=== PATIENT | female | born 1965 | race Caucasian/White ===

== ENCOUNTER → 2019-09-13 14:35 | Outpatient (CLI) | payer OTHER, MEDICAID, SELFPAY ==
--- NOTE | ~2019-09-13 | MMUS_ITS ---
EXAMINATION: MM diagnostic mammo BI, US breast BI limited HISTORY: Bilateral breast asymmetries on screening mammogram TECHNIQUE: Additional 3-D tomosynthesis images of the breasts were performed and synthetic 2-D images were generated. CAD analysis was submitted and interpreted. High resolution limited bilateral breast ultrasound was performed. COMPARISON: 05/30/2018, 08/18/2013, 08/11/2013 FINDINGS: MAMMOGRAPHIC FINDINGS: Right breast: Focal asymmetry in the middle third of the upper outer quadrant of the right breast has an appearance similar to prior examinations with spot compression. There is been no suspicious inter jeremiah change. Left breast: There is an approximately 2.4 cm oval, obscured, equal density mass in the middle/spot checker ior third of the upper outer quadrant of the breast which appears slightly increased in size compared to prior mammograms. ULTRASOUND: Right breast: An intramammary lymph node is present at the 10:00 location 6 cm from the nipple. There is a 10 mm x 9 mm oval, circumscribed mass with possible central echogenicity (possibly lymph node), no posterior features, and no internal vascularity at 11:00 location 5 cm from the nipple. There is also a questionable 4 mm/4 mm 5 mm x 4 mm oval, hypoechoic, parallel mass with indistinct margins at the 11:00 location 5 cm from the nipple. Left breast: There is a 3.1 x 1.0 cm cyst at the 1:00 location 3 cm from the nipple. There are likely clusters of microcysts at the 1:00 location 5 cm from the nipple in the 2:00 location 6 cm from the nipple. IMPRESSION: 1. Probably benign bilateral breast findings. 2. Recommend 6 month follow-up bilateral diagnostic mammogram and ultrasound. BI-RADS category 3, probably benign findings. Reviewed, dictated and finalized at location A. 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 Probably benign bilateral breast findings. 2. Recommend 6 month follow-up bilateral diagnostic mammogram and ultrasound. BI-RADS category 3, probably benign findings.
== END ==
PROVIDERS: PCP Emergency Medicine; Visit Provider Nurse Practitioner Obstetrics & Gynecology
DX: N60.02 Solitary cyst of left breast (principal)
CPT/HCPCS: 76642; 77066

== ENCOUNTER 2020-01-30 09:00 | Outpatient (RCR) | payer OTHER, MEDICAID, SELFPAY ==
--- NOTE | 2020-01-09 14:07 | PTOPEVAL ---
INITIAL PHYSICAL THERAPY EVALUATION and PLAN OF CARE Thank you for referring Rowena Quesada to [facility]. She will be seen in PT 2x/wk x 4 wks. Please review, sign, date and return this plan of care MELVIN. I agree with and certify that the following plan of care is medically necessary. Referring Physician Date Admitting Provider: Attending Provider: PHYSICIAN NOT ON STAFF Referring Provider: *PT Outpatient Evaluation Start: 01/09/20 12:43 Freq: Status: Active Protocol: Document 01/09/20 12:43 FORD (Rec: 01/09/20 13:58 FORD [id number]) Therapy Assessment Status Assessment Status Assessment Status Evaluation Outpatient Past Medical History Past Medical History Source of Past Medical History Patient Neurological History Hx Neurological Disorders No Significant History Cardiovascular History Hx Cardiac Arrhythmia Yes: SVT's Hx Palpitations Yes Respiratory History Hx Respiratory Disorders No Significant History Gastrointestinal History Hx Cholecystectomy Yes: ~ 5yrs agos Genitourinary History Hx Other Genitourinary Disorders Yes: urinary incontinence Musculoskeletal History Hx Back Pain Yes: low back pain Hx Other Musculoskeletal Disorders Yes: L bilat meniscus tear,R Achilles tendinitis, bilat foot pain Endocrine History Hx Endocrine Disorders No Significant History Evaluation Information Problem Diagnosis Pain in L knee, pain in R knee Onset ~ 5/6 wks ago Subjective Information on wt loss program to lose wt Query Text:As Reported By Patient/ - exercise bike, swimming - Family when got off of exercise bike - burning sensation in knees - pain in knees 5-6 wks ago 2 wks ago - L knee gave out - fell - went down on both knees hard Sleeping - challenge - best when keeps knees straight, legs feel - feel tight and hurt Mornings - sore, takes time - some days are better than others, hot shower /sauna - helps knees feel better Tends to have increase in edema with both legs - into feet With increase in activity - increase in soreness with both knees - better with decrease in a
--- NOTE | 2020-01-12 08:20 | PCPTNOTE ---
Patient called & cancelled scheduled appointment this date due to having to take care of a sick grandchild.
--- NOTE | 2020-01-19 09:16 | PCPTNOTE ---
Patient did not show up for scheduled appointment this date.
--- NOTE | 2020-01-25 13:25 | PCPTNOTE ---
Patient did not show up for scheduled appointment this date.
--- NOTE | 2020-02-02 09:24 | PCPTNOTE ---
Patient did not show up for scheduled appointment this date . Called pt and left a voicemail reminding her of her next appointment.
--- NOTE | 2020-02-13 11:20 | PCPTNOTE ---
Rowena did not show for today's appointment.
--- NOTE | 2020-02-15 10:37 | PCPTNOTE ---
PHYSICAL THERAPY DISCHARGE NOTE Admitting Provider: Attending Provider: PHYSICIAN NOT ON STAFF Patient:Rowena Quesada Date of :1965 Rowena has not returned for any further treatments since 01/30/2020, therefore she will be discharged at this time. Patient?s initial visit was on 01/09/2020 12:30 and she had a total of 4 visits. She did not show for 5 visits including today's re-evaluation visit. The goals have been partially met. Thank you for referring Rowena to [facility]. Please review, sign, date and return this discharge summary MELVIN. I have been updated about Rowena's current status and I agree with discharge from the above service at this time. Referring Physician Date
== END 2020-02-16 07:52 | disposition home or self-care (01) ==
LOC: ANHPT 09:00
PROVIDERS: PCP Emergency Medicine
DX: M25.561 Pain in right knee (principal); M25.562 Pain in left knee; S83.282D Other tear of lateral meniscus, current injury, left knee, subsequent encounter
CPT/HCPCS: 97110; 97161

== ENCOUNTER 2020-05-02 11:15 | Outpatient (RCR) | payer OTHER, MEDICAID, SELFPAY ==
--- NOTE | 2020-04-23 15:41 | PTOPEVAL ---
PHYSICAL THERAPY EVALUATION AND PLAN OF CARE 04-23-2020 Thank you for referring Rowena Quesada to [facility] for the diagnosis of s/p L knee arthroscopy.? She is scheduled to be seen for therapy? 2 x/week for 4 weeks. Please review, sign, date and return this plan of care MELVIN. I agree with and certify that the following plan of care is medically necessary. Referring Physician Date Attending Provider: Dr. El Rodríguez *PT Outpatient Evaluation Start: 04/23/20 13:33 Document 04/23/20 13:33 RONALD (Rec: 04/23/20 14:42 RONALD [id number]) Outpatient Past Medical History Past Medical History Source of Past Medical History Patient Neurological History Hx Neurological Disorders No Significant History Cardiovascular History Hx Cardiac Arrhythmia Yes: SVT's Hx Hypertension Yes: med Hx Palpitations Yes Respiratory History Hx Respiratory Disorders No Significant History Gastrointestinal History Hx Cholecystectomy Yes: ~ 5yrs agos Genitourinary History Hx Other Genitourinary Disorders Yes: urinary incontinence Musculoskeletal History Hx Back Pain Yes: low back pain Hx Other Musculoskeletal Disorders Yes: R meniscus tear-to have surg,R Achilles tendinitis, bilat foot pain Endocrine History Hx Endocrine Disorders No Significant History HEENT History Hx HEENT Disorders No Significant History Reproductive History Hx Section Yes Other History Hx Other Medical Conditions Yes: obesity Evaluation Information Problem Diagnosis s/p L knee arthroscopy Onset Mar [address] office- told to do Query Text:As Reported By Patient/ exercises- have handout: SLR, Family wall squats, step ups; she has not been doing- too hard to do; had PT appointment earlier, but still had stitches in my knee, so I canceled the appt; then was waiting for them to call me and reschedule; also have meniscal tear in R knee- surgery not scheduled yet for it; Previous Treatments Previous Treatments For This Problem no therapy since surgery; had PT in past for L knee Prior Level of Function Activity Level (Last 3 Months) 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
--- NOTE | 2020-04-25 16:08 | PCPTNOTE ---
Pt No-showed for appt this date @15:45.
--- NOTE | 2020-05-06 14:45 | PCPTNOTE ---
pt did not show for today's appt, talked with her and she thought her appt was tomorrow; reminded her of the next appt time and she will return to work Wed and needs to reschedule all of her remaining appts; transferred her to the first front ventilator to reschedule.
--- NOTE | 2020-05-09 09:28 | PCPTNOTE ---
Patient did not show up for scheduled appointment this date; voicemail left as reminder for next appointment on 05/14 @ 12:30.
--- NOTE | 2020-05-22 08:21 | PCPTNOTE ---
discussed pt with Luz Marina Hood re: insurance authorization; the forms were faxed to [facility], but there is not any return fax or written authorization for her PT; Luz Marina reported it is OK to see her
--- NOTE | 2020-05-22 16:02 | PCPTNOTE ---
pt did not show for today's reevaluation; called pt and left voice mail message for her;
--- NOTE | 2020-05-28 15:53 | PCPTNOTE ---
pt called and I returned her call. She is wanting to continue PT without a re-evaluation. She stated she had a new PT order and needed to continue therapy--knee is weak and hurting. She has returned to work and having more problems. Discussed with her that she has not been here since May 02 and she did not show for her re-evaluation. And our plan of treatment was up on May 21, so a reassessment must be done to update the goals and treatment plan, with a dr signature authorizing our plan to continue. I do not have any open appt times for about 15 more days. Discussed with her that she could have another PT do the reeval if she is OK with that--she was, so she is to call and make an appointment for a reevaluation
--- NOTE | 2020-05-30 16:16 | PCPTNOTE ---
Patient did not show up for scheduled re-evaluation appointment this date.
--- NOTE | 2020-06-12 09:15 | PCPTNOTE ---
PHYSICAL THERAPY DISCHARGE 06-12-2020 Attending Provider: Dr. Rodríguez Patient:Rowena uQesada Date of :1965 Ms. Quesada has not returned for any further treatments since 05/02/2020, therefore she will be discharged at this time. She has received 3 PT sessions, from April 23 to May 02; she did not show for 5 appointments, with the last one being May 30. The goals were not addressed. Thank you for referring Ms. Quesada to [facility]. Please review, sign, date and return this discharge summary MELVIN. I have been updated about the patient's current status and I agree with discharge from the above service at this time. Referring Physician Date
== END 2020-06-12 14:35 | disposition home or self-care (01) ==
LOC: ANHPT 11:15
PROVIDERS: PCP Emergency Medicine
DX: Z48.89 Encounter for other specified surgical aftercare (principal)
CPT/HCPCS: 97110; 97162

== ENCOUNTER → 2020-10-03 10:36 | Outpatient (CLI) | payer OTHER, MEDICAID, SELFPAY ==
[2020-10-04 18:59] LABS: SARS-CoV-2 RNA PCR Positive
== END ==
PROVIDERS: PCP Emergency Medicine; Visit Provider Emergency Medicine
DX: U07.1 COVID-19 (principal)
CPT/HCPCS: C9803; U0003; U0005

== ENCOUNTER → 2020-10-21 14:48 | Outpatient (CLI) | payer OTHER, MEDICAID, SELFPAY ==
--- NOTE | ~2020-10-21 | XR_ITS ---
EXAMINATION: XR chest 2V 10/21/2020 15:04 INDICATION: Post Covid. Cough. PROCEDURE: 2 view chest COMPARISON: Comparison to multiple prior studies sequentially, with oldest reviewed study dated 06/26. FINDINGS: The lungs are clear. The cardiomediastinal silhouette is within normal limits. There are no pleural effusions. There is no pneumothorax suspected. IMPRESSION: 1: NO ACUTE CARDIOPULMONARY DISEASE. Reviewed, dictated and finalized at location B.
== END ==
PROVIDERS: PCP Emergency Medicine; Visit Provider Emergency Medicine
DX: R05 Cough (principal)
CPT/HCPCS: 71046

== ENCOUNTER 2021-11-07 08:23 | Outpatient (CLI) | payer OTHER, SELFPAY ==
--- NOTE | ~2021-11-07 | MM_ITS ---
EXAMINATION: MM screening derik BI w sondra HISTORY: Screening TECHNIQUE: Craniocaudal and mediolateral oblique 3-D tomosynthesis images were obtained and synthetic 2-D images were generated. CAD analysis was submitted and interpreted. COMPARISON: Comparison to multiple prior studies sequentially, with oldest reviewed study dated 08/11. BREAST PARENCHYMAL COMPOSITION: Breast composed of scattered areas of fibroglandular density FINDINGS: Bilateral breast asymmetries and masses are unchanged dating back to 08/11/2013. There are d eveloping clustered calcifications in the upper outer quadrant of the left breast. IMPRESSION: 1. Clustered indeterminate left breast calcifications, upper outer quadrant, middle third. 2. Additional mammographic views and possible breast ultrasound are recommended. BI-RADS Category 0: Incomplete: Needs additional imaging evaluation. Reviewed, dictated and finalized at location A. IMPRESSION: 1. Clustered indeterminate left breast calcifications, upper outer quadrant, mi ddle third. 2. Additional mammographic views and possible breast ultrasound are recommended . BI-RADS Category 0: Incomplete: Needs additional imaging evaluation.
== END 2021-11-07 08:24 | disposition home or self-care (01) ==
LOC: ANHIMG 08:24
PROVIDERS: PCP Emergency Medicine; Visit Provider Emergency Medicine
DX: Z12.31 Encounter for screening mammogram for malignant neoplasm of breast (principal); R92.8 Other abnormal and inconclusive findings on diagnostic imaging of breast
CPT/HCPCS: 77063; 77067

== ENCOUNTER 2021-11-21 11:04 | Outpatient (CLI) | payer OTHER, SELFPAY ==
--- NOTE | ~2021-11-21 | MM_ITS ---
EXAMINATION: MM diagnostic mammo unilat LT HISTORY: Follow-up left breast calcifications TECHNIQUE: Additional 3-D tomosynthesis images of the left breast were performed and synthetic 2-D im ages were generated. CAD analysis was submitted and interpreted. COMPARISON: Comparison to multiple prior studies sequentially, with oldest reviewed study dated 08/11. BREAST PARENCHYMAL COMPOSITION: The breasts are heterogenously dense, which may obscure small masses. FINDINGS: There is a mass in the upper outer quadrant of the left breast with overlying calcification s. A few of these calcifications appear to layer on the medial lateral view suggesting milk of calciu m from benign fibrocystic disease. The associated mass was characterized as a cyst on prior ultrasoun d dated 09/13/2019. IMPRESSION: 1. Probable benign left breast calcifications. 2. Recommend 6 month follow-up diagnostic left mammogram BI-RADS category 3, probably benign findings. Reviewed, dictated and finalized at location A.
== END 2021-11-21 11:05 | disposition home or self-care (01) ==
PROVIDERS: PCP Emergency Medicine; Visit Provider Emergency Medicine
DX: R92.8 Other abnormal and inconclusive findings on diagnostic imaging of breast (principal); R92.1 Mammographic calcification found on diagnostic imaging of breast
CPT/HCPCS: 77065

== ENCOUNTER 2022-05-22 11:31 | Outpatient (CLI) | payer OTHER, SELFPAY ==
--- NOTE | ~2022-05-22 | MM_ITS ---
EXAMINATION: MM diagnostic derik LT w sondra HISTORY: Six-month follow-up for probably TECHNIQUE: Magnification views of the left breast were performed. CAD analysis was submitted and inte rpreted. COMPARISON: 11/21/2021, 11/07/2021, 09/13/2019, 08/16/2019 FINDINGS: There are stable grouped calcifications posterior third slightly upper, slightly outer juan st at the 12:30 location 6 cm from the nipple which appear to be dystrophic in morphology and adjacen t to a stable mass. There has been no suspicious interval change. IMPRESSION: 1. Probably benign left breast calcifications. 2. Recommend 6 month follow-up diagnostic mammogram. BI-RADS category 3, probably benign findings. Reviewed, dictated and finalized at location A.
== END 2022-05-22 11:32 | disposition home or self-care (01) ==
PROVIDERS: PCP Emergency Medicine; Visit Provider Emergency Medicine
DX: R92.8 Other abnormal and inconclusive findings on diagnostic imaging of breast (principal)
CPT/HCPCS: 77061; 77065; G0279

== ENCOUNTER 2022-12-01 13:02 | Outpatient (CLI) | payer OTHER, SELFPAY ==
--- NOTE | ~2022-12-01 | MM_ITS ---
EXAMINATION: MM diagnostic derik BI w sondra HISTORY: Six-month follow-up for probably benign left breast calcifications TECHNIQUE: Craniocaudal, mediolateral, and mediolateral oblique 3-D tomosynthesis images of the breas ts were performed and synthetic 2-D images were generated. Magnification views of the left breast are also obtained. CAD analysis was submitted and interpreted. COMPARISON: 05/14/2022, 11/21/2021, 11/07/2021, 09/13/2019, 08/16/2019 BREAST PARENCHYMAL COMPOSITION: There are scattered areas of fibroglandular density. FINDINGS: Left breast calcifications with a dystrophic morphology persist but have decreased in numbe r. A stable persistent focal asymmetry is present in the right breast. No suspicious mass, calcificat ion, or architectural distortion are identified in either breast. IMPRESSION: 1. No mammographic evidence of malignancy. 2. Recommend routine screening mammography in one year. BI-RADS Category 2: Benign finding(s). Reviewed, dictated and finalized at location A.
== END 2022-12-01 13:03 | disposition home or self-care (01) ==
LOC: ANHIMG 13:05
PROVIDERS: PCP Emergency Medicine; Visit Provider Emergency Medicine
DX: R92.8 Other abnormal and inconclusive findings on diagnostic imaging of breast (principal)
CPT/HCPCS: 77062; 77066; G0279

== ENCOUNTER 2023-05-31 10:08 | Outpatient (CLI) | payer OTHER, SELFPAY ==
[2023-06-01 01:44] LABS: SARS-CoV-2 RNA PCR Negative (Negative)
== END 2023-05-31 10:09 | disposition home or self-care (01) ==
PROVIDERS: PCP Emergency Medicine; Visit Provider Emergency Medicine
DX: J06.9 Acute upper respiratory infection, unspecified (principal)
CPT/HCPCS: 87635

== ENCOUNTER 2023-06-04 08:10 | Emergency (ER) | payer OTHER, SELFPAY ==
[2023-06-04 08:12] VITALS: BP 137/80; PULSE 76; RESP 16; TEMP 36.6; O2SAT 100
--- NOTE | 2023-06-04 08:33 | ED.BACK ---
HPI - Back Pain/Injury General Chief Complaint: Back Pain/Injury Stated Complaint: right side pain Time Seen by Provider: 06/04/23 08:14 History of Present Illness HPI Narrative: Yesterday patient woke up with pain to her right lower back, pain does not really radiate, does improve when she is up and walking and moving around. Woke up this morning and the pain was worse, feeling better now that she has moved to. Denies any recent injuries, does state that she started a new job where she is lifting things more Related Data Home Medications Medication Instructions Recorded Confirmed albuterol sulfate 90 mcg/actuation inhalation 08/19/19 04/13/22 aerosol inhaler (ProAir HFA) diltiazem HCl 120 mg PO 08/19/19 04/13/22 capsule,extended release 24 hr calcium carbonate 400 mg calcium 400 mg PO DAILY 01/28/21 04/13/22 (1,000 mg) chewable tablet (Antacid Ultra Strength) cholecalciferol (vitamin D3) 125 125 mcg PO DAILY 01/28/21 04/13/22 mcg (5,000 unit) capsule ferrous fumarate 325 mg (106 mg 325 mg PO DAILY 01/28/21 04/13/22 iron) tablet (BitWavetts) multivitamin (Daily Multi-Vitamin 1 tablet PO DAILY 01/28/21 04/13/22 tablet) vitamin B complex (B 1 tablet PO DAILY 01/28/21 04/13/22 Complex-Vitamin B12 tablet) Allergies Allergy/AdvReac Type Severity Reaction Status Date / Time No Known Allergies Allergy Verified 06/04/23 08:14 Review of Systems Review of Systems: CONST: No fever. HEENT: No sore throat C/V: No chest pain RESP: No cough GI: No abdominal pain, nausea or : No dysuria. M/S: Right lower back pain SKIN: No rash. NEURO: [No headache or focal numbness or weakness] PSYCH: [No depression] PMFSH Past Medical History Medical History Acute arthritis Allergies Anemia Colitis Crohn's disease Family History Family History Mother Cancer Grandparent Diabetes mellitus Hypertension Cerebrovascular accident Father Depression Anxiety Social History Social History Smoking status: Never smoker Alcohol intake: current Drinks per week: 2 Alcohol use details: Wine Exam Narrative: EXAMINATION OF ORGAN SYSTEMS/BODY AREAS: Constitutional: Vital signs per nursing GENERAL:[No acute distress, non-toxic appearing.] HEAD: Normal with no signs of head trauma. EYES: EOMI, conjunctiva normal ENT: Hearing grossly intact LUNGS: Nonlabored breathing. HEART: [Regular rate and rhythm] ABD: [Soft], [nontender to palpation] BACK: Some tenderness to R lower back; no midline tenderness EXT: Normal range of motion SKIN: [No rashes or lesions.] NEURO: [Alert and oriented x 3. No gross focal sensory or strength deficits.] PSYCH: Normal affect Course Vital Signs Vital signs: Vital Signs Temperature 97.9 F 06/04/23 08:12 Pulse Rate 76 06/04/23 08:12 Respiratory Rate 16 06/04/23 08:12 Blood Pressure 137/80 06/04/23 08:12 Pulse Oximetry 100 06/04/23 08:12 Temperature 97.9 F 06/04/23 08:12 Pulse Rate 76 06/04/23 08:12 Respiratory Rate 16 06/04/23 08:12 Blood Pressure 137/80 06/04/23 08:12 Pulse Oximetry 100 06/04/23 08:12 MDM - Back Pain/Injury MDM Narrative Medical decision making narrative: ED COURSE AND MEDICAL DECISION MAKIN-year-old female with acute back pain. Normal motor and sensory exam. Patient able to ambulate. No evidence of acute cord compression, osteomyelitis/discitis or cauda equina without saddle anesthesia, urinary retention/incontinence, numbness/tingling in lower extremities, fever, history of IV drug use, cancer or immunosuppression. Doubt AAA or aortic dissection without severe pain/discomfort or any neurovascular deficits. Ketorolac 15mg IM given for symptomatic relief. At this time, I do not believe the patient requires imagi
[2023-06-04] MEDS: KETOROLAC 30 MG/ML VIAL (*BKC) 15 MG IM (08:40)
[2023-06-04 08:52] LABS: Appearance Urine Clear (Clear); Bacteria Urine None Seen /hpf; Bilirubin Urine Negative (Negative); Blood Urine Negative (Negative); Color Urine Yellow (Yellow); Glucose Urine UA Negative (Negative); Ketones Urine Negative (Negative); Leukocyte Esterase Ur Trace LEU/UL (Negative); Nitrate Urine Negative (Negative); Non Pathogenic Casts 0-2; Protein Urine Negative (Negative); RBC Urine 0-2 /hpf (0-2); Specific Grav Ur 1.025 (1.001-1.035); Squamous Epithelial Cell Urine Occasional /hpf (Few); WBC Urine 0-5 /hpf
[2023-06-04 09:00] LABS: Add Urine Microscopic? YES
[2023-06-04 09:37] VITALS: BP 120/85; PULSE 88; RESP 18; O2SAT 99
== END 2023-06-04 09:38 | disposition home or self-care (01) ==
PROVIDERS: Emergency Provider Emergency Medicine; PCP Emergency Medicine
DX: S39.012A Strain of muscle, fascia and tendon of lower back, initial encounter (principal); X50.0XXA Overexertion from strenuous movement or load, initial encounter
CPT/HCPCS: 81001; 96372; 99283; J1885

== ENCOUNTER 2023-06-21 12:01 | Outpatient (CLI) | payer OTHER, SELFPAY ==
--- NOTE | ~2023-06-21 | XR_ITS ---
EXAMINATION: XR chest 2V 06/21/2023 12:28 INDICATION: Cough for 10 days PROCEDURE: 2 view chest COMPARISON: Comparison to multiple prior studies sequentially, with oldest reviewed study dated 12/03. FINDINGS: The lungs are clear. The cardiomediastinal silhouette is within normal limits. There are no pleural effusions. There is no pneumothorax suspected. IMPRESSION: 1: NO ACUTE CARDIOPULMONARY DISEASE. Reviewed, dictated and finalized at location B. 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
[2023-06-21 12:59] LABS: SARS-CoV-2 RNA PCR Positive (Negative)
== END 2023-06-21 12:02 | disposition home or self-care (01) ==
LOC: ANHLAB 12:03
PROVIDERS: PCP Emergency Medicine; Visit Provider Emergency Medicine
DX: J06.9 Acute upper respiratory infection, unspecified (principal); R05.9 Cough, unspecified
CPT/HCPCS: 71046; 87635

== ENCOUNTER 2024-01-05 13:56 | Outpatient (CLI) | payer OTHER, SELFPAY ==
--- NOTE | ~2024-01-05 | MM_ITS ---
EXAMINATION: MM screening derik BI w sondra HISTORY: Screening TECHNIQUE: Craniocaudal and mediolateral oblique 3-D tomosynthesis images were obtained and synthetic 2-D images were generated. CAD analysis was submitted and interpreted. COMPARISON: Comparison to multiple prior studies sequentially, with oldest reviewed study dated 08/16. BREAST PARENCHYMAL COMPOSITION: Not dense: There are scattered areas of fibroglandular density. FINDINGS: There is no evidence of suspicious mass, calcification, or architectural distortion to sugg est malignancy in either breast. There has been no suspicious interval change. IMPRESSION: 1. No mammographic evidence of malignancy. 2. Recommend routine screening mammography in one year. BI-RADS Category 1: Negative Reviewed, dictated and finalized at location B.
== END 2024-01-05 13:57 | disposition home or self-care (01) ==
LOC: ANHIMG 13:58
PROVIDERS: PCP Emergency Medicine; Visit Provider Obstetrics & Gynecology
DX: Z12.31 Encounter for screening mammogram for malignant neoplasm of breast (principal)
CPT/HCPCS: 77063; 77067

== ENCOUNTER 2024-07-07 16:43 | Emergency (ER) | payer OTHER, SELFPAY ==
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
[2024-07-07 17:15] VITALS: BP 136/74; PULSE 80; RESP 20; TEMP 36.3; O2SAT 100
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
[2024-07-07] MEDS: KETOROLAC 30 MG/ML VIAL (*BKC) IM (18:25)
--- OUTSIDE RECORDS SUMMARY | 2024-07-11 07:03 | XMS_ITS | Data Portability ---
Author Organization [place] - [facility] OFFICE Address [address] [place] [id number] Care Team Providers Care Color Control Supervisor Name Role Phone ROMANPAM Primary Care Provider Assessment No assessment recorded. Plan of Treatment Reminders Order Date Submit Date Provider Last Modified By Organization Details Last Modified Time Details Appointments None recorded. Lab None recorded. Referral None recorded. Procedures None recorded. Surgeries None recorded. Imaging None recorded. Medication Orders magnesium oxide 400 mg (241.3 mg magnesium) tablet 2019 020 [email or web address] [facility]60271, [address], [place], [id number], 0 14:19:28 atorvastat in 20 mg tablet 2019 020 [email or web address] [facility] #82856, [address], [place], [id number], 0 14:38:46 Cardizem CD 120 mg capsule,ex tended release 2019 020 [email or web address] [facility] #72451, [address], [place], [id number], 3 17:38:09 Lasix 20 mg tablet 2019 020 [email or web address] [facility] #87040, [address], [place], [id number], 0 16:18:09 spironolac tone 25 mg tablet 2019 020 [email or web address] [facility] #02401, [address], [place], [id number], 0 14:29:38 Cozaar 50 mg tablet [address] [facility]88894, [address] [facility], [place], [place], [id number], 0 14:39:00 spironolac tone 25 mg tablet [address] [facility] #58223, [address] [facility], [place], [place], [id number], 0 14:29:38 Lasix 20 mg tablet [address] [facility] #79914, [address] [facility], [place], [place], [id number], 0 14:19:09 magnesium oxide 400 mg (241.3 mg magnesium) tablet 2019 020 [facility] #67977, [address] [facility], [place], [place], [id number], 0 14:58:44 Cardizem CD 120 mg capsule,ex tended release 2019 020 [email or web address] [facility] #97891, [address] [facility], [place], [place], [id number], 3 17:38:09 Lasix 20 mg tablet 2019 020 INTERFACE [facility] #48054, [address] [facility], [place], [place], [id number], 0 14:58:43 Cardizem 30 mg tablet 2022 023 LATA [facility] #58852, [address] [facility], [place], [place], [id number], 3 12:22:47 Patient TargetsNo targets recorded. Patient Instructions Encounter Date Encounter Id Patient Instructions Last Modified By Organization Details Last Modified Time 12/04/2019 [id number] high cholesterol : care instructions [email or web address] Not available 12/04/2019 13:53:32 12/25/2019 [id number] high cholesterol : care instructions [email or web address] Not available 07/23/2020 22:52:29 05/02/2020 [id number] supraventricular tachycardia: care instructions [email or web address] Not available 05/02/2020 14:33:19 high cholesterol : care instructions [email or web address] Not available 05/02/2020 14:33:19 Exercise advised Low cholesterol diet advised Low sodium diet advised [email or web address] Not available 05/02/2020 14:33:06 Scribed by Wilda Deluca [facility]- [email or web address] Not available 05/02/2020 14:33:19 Reason for Referral None Reported. Results Created Date Observation Date Name Description Value Unit Range Abnormal Flag Note LastModifiedBy Organization Detail LastModifiedTime 05/08/2005/03/2020 , echoc ardio gram No observ ation record ed. [email or web address] Not Available 2019 09:42:49 05/08/2005/02/2020 elect rocar diogr am No observ ation record ed. [email or web address] Not Available 2019 15:19:44 11/21/19 23 11/19/2022 elect rocar diogr am No observ ation record ed. [email or web address] Not Available 2022 10:21:03 12/09/19 23 12/04/2022 , echoc ardio gram No observ ation record ed. [email or web address] Not Available 2022 17:35:53 Result Notes None recorded. Problems Name Problem SNOMED Code Status Onset Date Resolution Date Notes Provider Name and Address Organization Details Recorded Time Paroxysmal supraventri cular tachycardia 94911476 Active 2018 Lucy quinteros [place] - [facility] 9 11:56:12 Family history of premature coronary heart disease 282262101 Active 2018 Lucy quinteros [place] - [facility] 9 11:56:52 Prehyperten marly 154428135 Active 2018 Ayala Mesto null, [place] - [facility] 9 11:57:06 Left ventricular hypertrophy 96431654 Active 2018 Ayalamalcom Cooper [place] - [facility] 9 11:57:16 Left atrial dilatation 405784961 Active 2018 Lucy [place] [facility] 9 11:57:31 History of supraventri cular tachycardia 1111497097756 4101 Active 2018 Lucy [place] [facility] 9 11:57:45 Crohn's disease 14628678 Active 2018 Dr. Nancy [place] [facility] 9 14:44:47 Seasonal allergic rhinitis 407331877 Active 2018 Lucy [place] [facility] 9 11:59:30 Hyperlipide josette 13617181 Active 2018 Lucy [place] [facility] 3 17:33:56 Diastolic dysfunction 5133584 Active 2018 Lane Gonzalez [place] [facility] 9 13:50:09 Supraventri cular tachycardia 4420746 Active 2018 Lucy Cooper [place] [facility] 9 08:46:02 Tear of meniscus of knee 725061415 Active 2019 Jaycee G[place] [facility] 0 12:06:22 Pre-surgery evaluation Active 2019 Lane Gonzalez [place] [facility] 0 14:55:56 Problem Notes None recorded. Procedures Surgical History Date Name Laterality Status Provider Name and Address Organization Details Recorded Time Cholecystectomy completed Lucy Cooper [place] - [facility] 07/27/2018 11:59:56 Unlisted px accessory sinus completed Lucy Cooper [place] - [facility] 07/27/2018 12:00:20 Imaging Results Imaging Date Name Status LastModified by Organization Details LastModified Time 05/03/2020 US, echocardiogram completed Inform ation not available 05/08/2020 09:42:49 05/02/2020 electrocardiogram completed Informa tion not available 05/08/2020 15:19:44 11/19/2022 electrocardiogram completed [email or web address] Informa tion not available 11/30/2022 10:21:03 12/04/2022 US, echocardiogram completed [email or web address] Inform ation not available 05/18/2023 17:35:53 Procedure Notes None recorded. Medical Equipment None Reported. Allergies No known drug allergies Medications Name Sig Start Date Stop Date Status Note LastModified by Organization Details LastModified Time cyclobenz aprine 10 mg tablet active Not Available Not Available No t Available amoxicill in 500 mg capsule TAKE 1 CAPSULE BY MOUTH THREE TIMES DAILY UNTIL GONE 05/19 completed pt is no longer taking 11/19/22 SA Not Available Not Available Not Available metolazon e 2.5 mg tablet Take 1 tablet twice a week by oral route as directed . 03/09 completed Not Available Not Available Not Available prednison e 10 mg tablet PLEASE SEE ATTACHED FOR DETAILED DIRECTIO NS active Not Available Not Available No t Available atorvasta tin 20 mg tablet TAKE 1 TABLET BY MOUTH EVERY DAY 05/02 completed Pt not taking 05/02/20 SP Not Available Not Available Not Available Klor-Con 10 mEq tablet,ex tended release Take 1 tablet every day by oral route. 05/30 completed Not Available Not Available Not Available azithromy saturnino 250 mg tablet 09/14 completed pt. no longer takes 0 FH Not Available Not Available Not Available ibuprofen 800 mg tablet PRN 05/02 completed Pt not taking 05/02/20 SP Not Available Not Available Not Available fluconazo le 150 mg tablet 05/19 completed Not Available Not Available Not Available citalopra m 10 mg tablet 12/28 completed No longer take it 08/12/18 : MA Not Available Not Available Not Available hydrocodo ne 5 mg-acetam inophen 325 mg tablet TAKE 1 TABLET BY MOUTH EVERY 4 TO 6 HOURS NEEDED FOR PAIN 05/19 completed Not Available Not Available Not Available Lasix 40 mg tablet Take 1 tablet every day by oral route. 07/10 completed Not Available Not Available Not Available phenazopy ridine 200 mg tablet 09/14 completed pt. no longer takes 0 FH Not Available Not Available Not Available permethri n 5 % topical cream 12/06 completed No longer take it 08/12/18 : MA Not Available Not Available Not Available metronida zole 500 mg tablet 12/06 completed No longer take it 08/12/18 : MA Not Available Not Available Not Available acetamino phen 300 mg-codein e 30 mg tablet TAKE 1 TABLET BY MOUTH EVERY 8 HOURS NEEDED FOR PAIN active Not Available Not Available No t Available tramadol 50 mg tablet TK 1 T PO Q 8 H PRF PAIN active Not Available Not Available No t Available acetamino phen 500 mg tablet active Not Available Not Available No t Available spironola ctone 25 mg tablet Take 0.5 tablets every day by oral route. 05/02 completed Pt not taking 05/02/20 SP Not Available Not Available Not Available pantopraz ole 20 mg tablet,de layed release TK 1 T PO QD active Not Available Not Available No t Available meloxicam 7.5 mg tablet 1 qd 05/02 completed Pt not taking b/c it makes her urinate 05/02/20 SP Not Available Not Available Not Available potassium chloride ER 20 mEq tablet,ex tended release(p art/cryst ) Take 1 tablet every other day by oral route. 09/14 completed pt. no longer takes 0 FH Not Available Not Available Not Available magnesium oxide 400 mg (241.3 mg magnesium ) tablet Take 1 tablet every other day by oral route as directed . 2019 active Pt takes occ, with Lasix 05/02/20 SP Not Available Not Available Not Available DOK 100 mg capsule TAKE ONE CAPSULE BY MOUTH TWICE DAILY 05/19 completed Not Available Not Available Not Available lorazepam 2 mg tablet TAKE 1 TABLET BY MOUTH ONE HOUR PRIOR TO RPO active Not Available Not Available No t Available hydrocodo ne 7.5 mg-acetam inophen 325 mg tablet TAKE 1 TABLET BY MOUTH EVERY 6 HOURS NEEDED FOR PAIN active Not Available Not Available No t Available Lasix 20 mg tablet Take 1 tablet every other day by oral route as directed . 2019 active Not Available Not Available Not Avai lable cephalexi n 500 mg capsule 1 tablet every six hours 09/14 completed Not Available Not Available Not Available triamcino lone acetonide 0.1 % topical ointment 02/27 completed No longer take it 08/12/18 : MA Not Available Not Available Not Available hyoscyami ne 0.125 mg sublingua l tablet active Not Available Not Available Not Available ursodiol 300 mg capsule active Not Available Not Available Not Available hydrochlo rothiazid e 12.5 mg capsule 12/06 completed No longer take it 08/12/18 : MA Not Available Not Available Not Available omeprazol e 20 mg capsule,d elayed release 09/14 completed pt. no longer takes 0 FH Not Available Not Available Not Available diltiazem CD 120 mg capsule,e xtended release 24 hr TAKE 1 CAPSULE BY MOUTH TWICE DAILY 05/19 completed Not Available Not Available Not Available hydroxyzi ne HCl 25 mg tablet 12/06 completed No longer take it 08/12/18 : MA Not Available Not Available Not Available Cozaar 25 mg tablet Take 1 tablet every day by oral route. 11/01 completed Not Available Not Available Not Available ergocalci ferol (vitamin D2) 1,250 mcg (50,000 unit) capsule Take 1 capsule every week by oral route as directed . active Not Available Not Available No t Available scopolami ne 1 mg over 3 days transderm al patch active Not Available Not Available Not Available methylpre dnisolone 4 mg tablets in a dose pack 09/14 completed pt. no longer takes 0 FH Not Available Not Available Not Available diltiazem 30 mg tablet TAKE 1 TABLET BY MOUTH TWICE DAILY active Not Available Not Available No t Available ondansetr on 4 mg disintegr ating tablet active Not Available Not Available Not Available cefdinir 300 mg capsule 09/14 completed pt. no longer takes 0 FH Not Available Not Available Not Available fluticaso ne propionat e 50 mcg/actua tion nasal spray,[place] [employer] active Not Available Not Available Not Available Blood Pressure Kit 03/21 completed Not Available Not Available Not Available amoxicill in 875 mg-potass ium clavulana te 125 mg tablet 12/06 completed No longer take it 08/12/18 : MA Not Available Not Available Not Available Cozaar 50 mg tablet Take 1 tablet every day by oral route. 05/02 completed Not Available Not Available Not Available amoxicill in 500 mg-potass ium clavulana te 125 mg tablet 1q8h 07/10 completed sinus infectio n Not Available Not Available Not Available oxycodone 5 mg tablet TAKE 1 TABLET BY MOUTH EVERY 6 HOURS NEEDED FOR PAIN FOR UP TO ACUTE OPIOID THERAPY DOSES active Not Available Not Available No t Available Klor-Con M15 mEq tablet,ex tended release Take 1 tablet every day by oral route. 09/14 completed pt. no longer takes 0 FH Not Available Not Available Not Available nitrofura ntoin monohydra te/macroc rystals 100 mg capsule active Not Available Not Available Not Available eszopiclo ne 2 mg tablet TAKE 1 TABLET BY MOUTH ONCE. TAKE WITH [facility] ON THE NIGHT OF SLEEP STUDY active Not Available Not Available No t Available iron 1 tab qd 05/19 completed Not Available Not Available Not Available Vitamin D 1 tab qd 05/19 completed Not Available Not Available Not Available aprepitan t 40 mg capsule active Not Available Not Available Not Available ProAir HFA 90 mcg/actua tion aerosol inhaler PRN active Not Available Not Available Not Available hydrochlo rothiazid e 12.5 mg tablet Take 1 tablet every day by oral route as needed. 11/01 completed Not Available Not Available Not Available potassium chloride ER 20 mEq tablet,ex tended release Take 1 tablet every day by oral route as directed . 03/09 completed Not Available Not Available Not Available magnesium 400 mg (as magnesium oxide) tablet Take 1 tablet every day by oral route. 09/14 completed pt. no longer takes 0 FH Not Available Not Available Not Available Fluarix Quad (PF) 60 mcg (15 mcg x 4)/0.5 mL IM syringe ADM 0.5ML IM UTD active Not Available Not Available No t Available Vitals Date Recorded Body height Provider Name an d Address Organization Details Last Updated DateTime 12/04/2019 167.64 cm Jaycee Goss [place] - [facility] 12/04/2019 12:01:02 Date Recorded Body height Provider Name an d Address Organization Details Last Updated DateTime 12/25/2019 167.64 cm RADHA CH[facility] 12/25/2019 14:22:27 Date Recorded Body height Body mass index (BMI) Body weight Heart rate Oxygen saturation Oxygen saturation in Arterial blood by Pulse oximetry Body temperature Systolic blood pressure Diastolic blood pressure Provider Name and Address Organization Details Last Updated DateTime 0 167.64 cm 47.3 kg/m2 930209. 56 g 74 /min 98 % 98 % 98.4 [degF] 148 mm[Hg] 82 mm[Hg] THUY LEBLANC [facility] 0 14:16:23 Date Recorded Body height Body mass index (BMI) Body weight Heart rate Heart rate Oxygen saturation Oxygen saturation in Arterial blood by Pulse oximetry Oxygen saturation Oxygen saturation in Arterial blood by Pulse oximetry Systolic blood pressure Diastolic blood pressure Provider Name and Address Organization Details Last Updated DateTime 3 167.64 cm 2.5 kg/m2 6894.6 g 62 /min 63 /min 88 % 88 % 97 % 97 % 118 mm[Hg] 72 mm[Hg] DYLAN FELIPE [facility] 3 11:55:19 Social History Question Answer Notes LastModified by UI Robot ion Details LastModified Time Tobacco Smoking Status Never Smoker Not Available [facility] 05/28/2020 03:30:42 What Is Your Level Of Alcohol Consumption? None [id number] Information not available 05/28/2020 What Is Your Level Of Caffeine Consumption? None [id number] Information not available 05/28/2020 How Much Tobacco Do You Chew? None [id number] Information not available 05/28/2020 What Type Of Diet Are You Following? REGULAR [id number] Information not available 05/28/2020 Do You Or Have You Ever Used E-cigarettes Or Vape? Never Used Electronic Cigarettes [id number] Information not available 05/28/2020 What Is Your Occupation? [employer] [id number] Information not available 05/28/2020 Live Alone Or With Others? With Others With Spouse/si gnificant Other, With Children, At Home Information not available 07/28/2018 Marital Status Single Information not available 07/28/2018 What Was The Date Of Your Most Recent Tobacco Screening? 07/28/2018 [id number] Information not available 05/28/2020 How Many Children Do You Have? 3 [id number] Information not available 05/28/2020 Do You Or Have You Ever Used Smokeless Tobacco? Never Used Smokeless Tobacco [id number] Information not available 05/28/2020 How Much Tobacco Do You Smoke? No [id number] Information not available 05/28/2020 How Many Years Have You Smoked Tobacco? -2 [id number] Information not available 05/28/2020 Sex: Unknown Functional Status Question Answer Note LastModified by Organization D etails LastModified Time What is your exercise level? None [id number] Information not available 05/28/2020 Mental Status None recorded. Family History Relationship Description Onset Age of this Age Resolved Age Notes LastModified by Organization Details LastModified Time Mother Diabetes mellitus [email or web address] Not available 2018 14:08:15 Maternal Grandmother Diabetes mellitus [email or web address] Not available 2018 14:08:15 Maternal Grandmother Hypertensive disorder [email or web address] Not available 2018 14:08:22 Maternal Grandmother Cerebrovascu lar accident [email or web address] Not available 09/2018 14:08:29 Maternal Grandmother Myocardial infarction 70 [email or web address] Not available 07/28 14:45:40 Medical History Condition Response Gastrointestinal Disease Y Hyperlipidemia Y Arrhythmia Y Gynecological HistoryNo gynecological history recorded. Obstetrics History GPAL:G 0 P 0 0 0 0 Past Encounters Encounter ID Performer Location Encounter Start Date Encounter Closed Date Diagnosis/Indication Diagnosis SNOMED-CT Code Diagnosis ICD10 Code [id number] [facility] [place] [address] 07/28/2018 13:47:51 07/28/2018 15:21:20 History of supraventricular tachycardia 6938546124 5480123 Z86.79 Prehypertension 53882661 9 R03.0 [id number] Mamadou Lindsay MD [facility] [place] [address] 08/12/2018 10:24:50 08/12/2018 11:34:15 History of supraventricular tachycardia 2942342163 2569994 Z86.79 Prehypertension 77324355 9 R03.0 Dyspnea on exertion 6084 5006 R06.09 [id number] Mamadou Lindsay MD [facility] [address] [place] [address] 12/06/2018 13:59:49 12/06/2018 15:18:31 History of supraventricular tachycardia 8822892794 2114734 Z86.79 Prehypertension 93739825 9 R03.0 Dyspnea on exertion 6084 5006 R06.[id number] [place] [facility] [address] [facility] [place] [address] 12/28/2018 11:31:08 12/28/2018 12:19:04 History of supraventricular tachycardia 1093042842 5487594 Z86.79 Dyspnea on exertion 6084 5006 R06.09 Prehypertension 52453673 9 R03.0 Hyperlipidemia 15611067 E78.5 [id number] Aarti Hinton [facility] [address] [place] [address] 01/19/2019 13:05:32 01/25/2019 20:31:41 History of supraventricular tachycardia 7928998596 1403210 Z86.79 Dyspnea on exertion 6084 5006 R06.09 Prehypertension 93357359 9 R03.[address] E[id number] [place] [facility] [address] [facility] [place] [address] 02/21/2019 14:02:20 02/21/2019 15:20:05 History of supraventricular tachycardia 9418444891 2580166 Z86.79 Prehypertension 67104925 9 R03.0 [address]lipidemia [id number] Gonzalez [facility] [address] [place] [address] 03/09/2019 12:14:35 03/09/2019 13:56:57 History of supraventricular tachycardia 5060043294 7465840 Z86.79 Prehypertension 89227920 9 R03.0 Hyperlipidemia 29137786 E78.5 Diastolic dysfunction 35 31821 I50.30 Supraventr icular tachycardia 5249841 I47.1 [id number] Janelle Landeros [facility] [address] [place] [address] 04/20/2019 15:39:48 04/20/2019 18:31:38 History of supraventricular tachycardia 2540886429 2840438 Z86.79 Prehypertension 39136334 9 R03.0 Hyperlipidemia 53102545 E78.5 Diastolic dysfunction 35 11959 I50.30 Supraventr icular tachycardia 4519586 I47.1 [id number] [facility] [place] [facility] [address] [place] [address] 05/11/2019 11:52:14 05/11/2019 12:44:51 History of supraventricular tachycardia 4087743499 6993179 Z86.79 Prehypertension 72079786 9 R03.0 Hyperlipidemia 40256695 E78.5 Diastolic dysfunction 35 80877 I50.30 Supraventr icular tachycardia 2236168 I47.1 [id number] [facility] [place] [facility] [address] [place] [address] 05/18/2019 16:25:57 05/18/2019 17:26:19 History of supraventricular tachycardia 9447084686 2832590 Z86.79 Prehypertension 51942369 9 R03.0 Hyperlipidemia 58093423 E78.5 Diastolic dysfunction 35 88879 I50.30 Supraventr icular tachycardia 5446299 I47.[id number] [place] [facility] [address] [facility] [place] [address] 05/30/2019 16:36:33 05/31/2019 09:28:53 History of supraventricular tachycardia 2485059329 0546841 Z86.79 Prehypertension 70673396 9 R03.0 Hyperlipidemia 64393470 E78.5 Diastolic dysfunction 35 68671 I50.30 Supraventr icular tachycardia 1617167 I47.1 [id number] [facility] [place] [facility] [address] [place] [address] 07/10/2019 12:39:56 07/10/2019 16:13:28 Diastolic dysfunction 6525031 I50.30 History of supraventricular tachycardia 9681262115 7089029 Z86.79 Hyperlipidemia 17415726 E78.5 Prehypertension 44805813 9 R03.0 [id number] [facility] [place] [facility] [address] [place] [address] 09/14/2019 12:05:01 09/14/2019 13:07:12 Diastolic dysfunction 4281948 I50.30 History of supraventricular tachycardia 2404473386 0361714 Z86.79 Hyperlipidemia 27583507 E78.5 Prehypertension 90635611 9 R03.0 Supraventr icular tachycardia 5079206 I47.1 [id number] [facility] [place] [facility] [address] [place] [address] 10/19/2019 10:07:32 10/19/2019 11:44:46 Diastolic dysfunction 5511603 I50.30 History of supraventricular tachycardia 6562219751 7749107 Z86.79 Hyperlipidemia 22388244 E78.5 Prehypertension 56050854 9 R03.0 Supraventr icular tachycardia 8123046 I47.1 [id number] [facility] [place] [facility] [address] [place] [address] 11/02/2019 13:57:56 11/02/2019 14:28:30 Diastolic dysfunction 0034977 I50.30 History of supraventricular tachycardia 5428530869 3821991 Z86.79 Hyperlipidemia 09738492 E78.5 Prehypertension 71940853 9 R03.0 Supraventr icular tachycardia 7148849 I47.1 [id number] [facility] [place] [facility] [address] [place] [address] 11/20/2019 10:52:56 11/20/2019 13:57:12 Diastolic dysfunction 8382821 I50.30 History of supraventricular tachycardia 1888671963 2019330 Z86.79 Hyperlipidemia 93114813 E78.5 Prehypertension 02140648 9 R03.0 Supraventr icular tachycardia 2043407 I47.1 [id number] [facility] [place] [facility] [address] [place] [address] 12/04/2019 11:57:30 12/04/2019 13:54:57 Diastolic dysfunction 0804583 I50.30 History of supraventricular tachycardia 6006418232 3377030 Z86.79 Hyperlipidemia 36133245 E78.5 Prehypertension 79659964 9 R03.0 Supraventr icular tachycardia 4739825 I47.[id number] [place] [facility] [address] [facility] [address] [place] [address] 12/25/2019 14:11:30 07/23/2020 22:52:39 Diastolic dysfunction 0289377 I50.30 History of supraventricular tachycardia 9940342626 9643472 Z86.79 [id number] [place] [facility] [address] [facility] [place] [address] 01/22/2020 16:01:31 01/22/2020 16:20:41 Prehypertension [address]180 R03.[id number] [facility] [address] [place] [address] 05/02/2020 14:04:15 05/02/2020 14:59:39 Prehypertension 414946882 R03.0 Hyperlipidemia 61213361 E78.5 Paroxysmal supraventricular tachycardia 14888906 I47.1 Pre-surger y evaluation 598654529 Z01.818 Supraventr icular tachycardia 6273644 I47.1 [id number] Mamadou Lindsay MD [facility] [address] [place] [address] 11/19/2022 11:19:56 11/19/2022 12:58:24 Hyperlipidemia 87127536 E78.5 Paroxysmal supraventricular tachycardia 96050504 I47.1 Pre-surger y evaluation 631879180 Z01.818 Supraventr icular tachycardia [id number] I47.1 Health Concerns Section Related Observation LastModified by Organization Detai ls LastModified Time None Recorded Concern Status LastModified by Organization Details LastModified Time None Recorded Advance Directives Directive None Recorded Payers Encounter Date Sequence Insurance Name Policy Number Policy Serrano Covered Member ID Serrano Member ID Guarantor Name 12/04/2019 1 [facility] [id number] Rowena Michelle [place] [id number] [facility] 12/04/2019 2 [place] [facility] [id number] [facility] 12/25/2019 1 [facility] [id number] Rowena Martinez [place] [id number] [facility] 12/25/2019 2 [place] [facility] PUBLIC AID [facility] [id number] Rowena Quesada 01/22/2020 1 [facility] [id number] Rowena [place] [id number] Rowena [place] 01/22/2020 2 [place] [facility] [place] Rowena [place] [id number] Rowena [place] 05/02/2020 1 [facility] [id number] Rowena Quesada [id number] Rowena [place] 05/02/2020 2 [place] [facility] Rowena [place] [id number] Rowena [place] 11/19/2022 1 [facility] - DOS ON OR AFTER 21 (MEDICAID REPLACEMENT - HMO) Rowena [place] [id number] Rowena [place] Notes Date Note Type Note Provider Name and Address Organization Details Recorded Time 12/04/2019 text/html CC: leg swelling fu HPI: 54 year-old white female, who is a former patient of Dr. Monson, with a PMH of diastolic dysfunction, SVT, hypertension and Crohn's disease, obesity autoimmune dysfunction presents today for follow-up. Pt had last POV about two weeks ago. Due to the CDC tello virus mandated precautions for at risk patients, this visit is being conducted virtually via DOXY face time mode. Patient has agreed for the physician to perform the visit in this manner. Few weeks ago she lost balance and fell. Knees were weak, hurted knee States that had ortho eval and was told to have tore meniscus. had some knee edema. States that does have still LE edema as well Her BP runs: 120/89 yesterday, 130/90 the day before Previously had knees hurting - she saw orthopedic doctor, had some injections and helped her with symptoms previously BP was 138/94. noticed that DBP was running higher recently Initially her Lasix was cut down to 10 mg per her PCRecently she is off lasix for one week and since then swelling was worse Her PC started her on HCTZ which was then dc .PC saw her recently and had no bloodwork. Tried to do labs but can not because of pandemic pt states that when she is at work and she walks a lot her LE edema gets worse. She puts her legs up and edema improves then. She puts legs up when not walking and it helps with swelling. Previously pt hadLE edema of her legs which were swollen and red. She saw PC antibiotic was given pt requests to be off work till her LE edema resolves. She states that she is requested to ER sometimes and is concerned about it since she has autoimmune disease. Is going to talk about it with her PC. Prevbiously her PC gave her steroid (methylprednisolone) she completed Previously when she was on Lasix 20 QD felt much better, Her LE edema resolved and she restarted her work previously stated that sometimes cramps and dizzy Previously she stated that had LE edema which had not improved with diuretics ifor few months. She has decreased her salt intake. She has c/o of intermittent claudication to BLE that is worse when walking. decreased pedal pulses noted. She states she has had sleep apnea testing done and that was negative. Previously BP 160/80. At that time has some palpitations lasting 20-30 min If they last more that 60 min she goes to ER.she \can not sleep and is exhausted Previously Her BP was little higher 140/84 HR 99 today. Denies chest pain. NO SOB at rest but reports stable exertional dyspnea. No dizziness or syncope. Reports resolved palpitations. Tolerating medications. Previously had event monitor with recurrent episodes of SVT. Was supposed to see EP however states that her appointments were rescheduled and now are cancelled to viral pandemic. States that her palpitations improved significantly now and she does have only occasionally short episodes. Pt has hx of SVT since she was 20. worse since 42's. She had a Holter with no significant arrhythmia. She refused to been see by EP or to have a cardiac ablation. She previously saw Dr. Gonzalez prior to seeing Dr. Monson. She used to get adenosis 5-6 times. she started to have it when she was 20, since 47 more significant symptoms She never had EP evaluation and previously did not want to have one. She was reconsidering it. No known CAD, prior ME, valvular heart disease. She never smoked but was exposed to second-hand smoke. Had ECHO done LV systolic function is hyperdynamic, normal global systolic function and contractility. EF 65-70% , mild tricuspid regurgitation. Results from this visit, or from the past: 12/21/18: Na 140 , K 4.3, CL 104 ,CO2 28, GLU 92, BUN 17, CR 0.78,12/21/18: HB 13.5,HT 41.2 07/25/18: NA 137 ,K 3.7 ,CL 101 ,CO2 25,GLU 109 , BUN 10 , CR 0.6, AST 25 ALT : TC 174 ,TG 110,HDL 37,LDL 4930507/25/18: HB 14.6, HT 43.81: DDI 0.51 EKG Low voltage chest leads. rm 05/30/19EKG 911/): NSR, IRBBB, NSST changesEKG, 12/06/18: Sinus Rhythm, P,, mormal, QRS..Low voltage in precordial leads. ST-T..normal. EKG without sig. abnormalites. MUEKG 07/28/18 : SVT, Incomplete rbbb, NSST changes 01/19/19 Symptoms did not correlate to any arrhythmia. 15 manual recording where made, rhythm during times of recordings was normal sinus rhythm, sinus tachycardia and SVT noted.Holter Monitor 08/03/18 : Normal sinus rhythm. No PVC's. Rare PAC's noted. Sinus tachycardia 08/03/18 ECHO: LV chamber size is normal. LV wall thickness is normal. LV systolic function is hyperdynamic. There is normal global systolic function and contractility. The estimated left ventricle ejection fraction is 65-70%(normal). There is EA reversal with valsalva. Left atrium chamber is mildly calcified. The aortic valve is mildly calcified. The mitral valve leaflet is mildly thickened. There is trace mitral regurgitation. There is mild tricuspid regurgitation. 07/25/18 CHEST 1 VIEW: No acute cardiopulmonary disease. ROWENA [facility]ne - [facility] 12/04/2019 13:54:55 12/25/2019 text/html CC: leg swelling fu HPI: 54 year-old white female, who is a former patient of Dr. Monson, with a PMH of diastolic dysfunction, SVT, hypertension and Crohn's disease, obesity autoimmune dysfunction presents today for follow-up. Pt had last POV about two weeks ago. Due to the CDC tello virus mandated precautions for at risk patients, this visit is being conducted virtually via DOXY face time mode. Patient has agreed for the physician to perform the visit in this manner. Few weeks ago she lost balance and fell. Knees were weak, hurted knee States that had ortho eval and was told to have tore meniscus. had some knee edema. States that does have still LE edema as well Her BP runs: 120/89 yesterday, 130/90 the day before Previously had knees hurting - she saw orthopedic doctor, had some injections and helped her with symptoms previously BP was 138/94. noticed that DBP was running higher recently Initially her Lasix was cut down to 10 mg per her PC Recently she is off lasix for one week and since then swelling was worse Her PC started her on HCTZ which was then dc .PC saw her recently and had no bloodwork. Tried to do labs but can not because of pandemic pt states that when she is at work and she walks a lot her LE edema gets worse. She puts her legs up and edema improves then. She puts legs up when not walking and it helps with swelling. Previously pt hadLE edema of her legs which were swollen and red. She saw PC antibiotic was given pt requests to be off work till her LE edema resolves. She states that she is requested to ER sometimes and is concerned about it since she has autoimmune disease. Is going to talk about it with her PC. Prevbiously her PC gave her steroid (methylprednisolone) she completed Previously when she was on Lasix 20 QD felt much better, Her LE edema resolved and she restarted her work previously stated that sometimes cramps and dizzy Previously she stated that had LE edema which had not improved with diuretics ifor few months. She has decreased her salt intake. She has c/o of intermittent claudication to BLE that is worse when walking. decreased pedal pulses noted. She states she has had sleep apnea testing done and that was negative. Previously BP 160/80. At that time has some palpitations lasting 20-30 min If they last more that 60 min she goes to ER. she \can not sleep and is exhausted Previously Her BP was little higher 140/84 HR 99 today. Denies chest pain. NO SOB at rest but reports stable exertional dyspnea. No dizziness or syncope. Reports resolved palpitations. Tolerating medications. Previously had event monitor with recurrent episodes of SVT. Was supposed to see EP however states that her appointments were rescheduled and now are cancelled to viral pandemic. States that her palpitations improved significantly now and she does have only occasionally short episodes. Pt has hx of SVT since she was 20. worse since 40's. She had a Holter with no significant arrhythmia. She refused to been see by EP or to have a cardiac ablation. She previously saw Dr. Gonzalez prior to seeing Dr. Monson. She used to get adenosis 5-6 times. she started to have it when she was 20, since 47 more significant symptoms She never had EP evaluation and previously did not want to have one. She was reconsidering it. No known CAD, prior ME, valvular heart disease. She never smoked but was exposed to second-hand smoke. Had ECHO done LV systolic function is hyperdynamic, normal global systolic function and contractility. EF 65-70% , mild tricuspid regurgitation. Results from this visit, or from the past: 12/21/18: Na 140 , K 4.3, CL 104 ,CO2 28, GLU 92, BUN 17, CR 0.78, 12/21/18: HB 13.5,HT 41.2 07/25/18: NA 137 ,K 3.7 ,CL 101 ,CO2 25,GLU 109 , BUN 10 , CR 0.6, AST 25 ALT 32 07/25/18: TC 174 ,TG 110,HDL 37,LDL 115 07/25/18: HB 14.6, HT 43.8 07/25/18: DDI 0.51 EKG Low voltage chest leads. rm 05/30/19 EKG 911/054/): NSR, IRBBB, NSST changes EKG, 12/06/18: Sinus Rhythm, P,, mormal, QRS..Low voltage in precordial leads. ST-T..normal. EKG without sig. abnormalites. MUEKG 07/28/18 : SVT, Incomplete rbbb, NSST changes 01/19/19 Symptoms did not correlate to any arrhythmia. 15 manual recording where made, rhythm during times of recordings was normal sinus rhythm, sinus tachycardia and SVT noted. Holter Monitor 08/03/18 : Normal sinus rhythm. No PVC's. Rare PAC's noted. Sinus tachycardia 08/03/18 ECHO: LV chamber size is normal. LV wall thickness is normal. LV systolic function is hyperdynamic. There is normal global systolic function and contractility. The estimated left ventricle ejection fraction is 65-70%(normal). There is EA reversal with valsalva. Left atrium chamber is mildly calcified. The aortic valve is mildly calcified. The mitral valve leaflet is mildly thickened. There is trace mitral regurgitation. There is mild tricuspid regurgitation. 07/25/18 CHEST 1 VIEW: No acute cardiopulmonary disease. Lane quinteros [facility] 07/23/2020 22:52:38 01/22/2020 text/html 12/25/2019 CC: leg swelling fu HPI: 54 year-old white female, who is a former patient of Dr. Monson, with a PMH of diastolic dysfunction, SVT, hypertension and Crohn's disease, obesity autoimmune dysfunction presents today for follow-up. LE resolved, lasix qod, tore medniscus knee Patient was seen via virtual visit 12/04/2019 Few weeks ago she lost balance and fell. Knees were weak, hurt knee. States that had ortho eval and was told to have tore meniscus. had some knee edema. States that does have still LE edema as well Her BP runs: 120/89 yesterday, 130/90 the day before Previously had knees hurting - she saw orthopedic doctor, had some injections and helped her with symptoms Initially her Lasix was cut down to 10 mg per her PC Recently she is off lasix for one week and since then swelling was worse Her PC started her on HCTZ which was then dc PC saw her recently and had no bloodwork. Tried to do labs but can not because of pandemic pt states that when she is at work and she walks a lot her LE edema gets worse. She puts her legs up and edema improves then Previously when she was on Lasix 20 QD felt much better, Her LE edema resolved and she restarted her work Previously she stated that had LE edema which had not improved with diuretics ifor few months. She has decreased her salt intake. She has c/o of intermittent claudication to BLE that is worse when walking. decreased pedal pulses noted. She states she has had sleep apnea testing done and that was negative. If they last more that 60 min she goes to ER. she can not sleep and is exhausted Denies chest pain. NO SOB at rest but reports stable exertional dyspnea. No dizziness or syncope. Reports resolved palpitations. Tolerating medications. States that her palpitations improved significantly now and she does have only occasionally short episodes. Pt has hx of SVT since she was 20. worse since 40's. She had a Holter with no significant arrhythmia. She refused to been see by EP or to have a cardiac ablation. She previously saw Dr. Gonzalez prior to seeing Dr. Monson. She used to get adenosis 5-6 times. she started to have it when she was 20, since 47 more significant symptoms She never had EP evaluation and previously did not want to have one. She was reconsidering it. No known CAD, prior ME, valvular heart disease. She never smoked but was exposed to second-hand smoke. *event monitor 01/19/2019 Symptoms did not correlate to any arrhythmia. 15 manual recording where made, rhythm during times of recordings was normal sinus rhythm, sinus tachycardia and SVT noted. 12/21/2018: HB 13.5,HT 41.2, TC 200 ,TG 73,HDL 50 ,LDL 133, Na 140 , K 4.3, CL 104 ,CO2 28, GLU 92, BUN 17, CR 0.78 *Holter monitor 08/03/2018 with recurrent episodes of SVT. Was supposed to see EP however states that her appointments were rescheduled and now are cancelled to viral pandemic. 08/03/2018 ECHO done LV systolic function is hyperdynamic, normal global systolic function and contractility. EF 65-70% , mild tricuspid regurgitation. 07/25/2018: Cholesterol 174,triglycerides 110,HDL 37,[id number] , CBC:WBC 8.1,RBC 5.17,HGB 14.6,HCT 43.8,PLT 339, CMP: Na 137,K 3.7,CL 101,CO2 25,Glucose 109,BUN 10,Creati 0.6Ca 8.9AST 25,ALT 32,Alkaline phosphatase 67 Results from this visit, or from the past: 12/21/18: Na 140 , K 4.3, CL 104 ,CO2 28, GLU 92, BUN 17, CR 0.78,12/21/18: HB 13.5,HT 41.2 07/25/18: NA 137 ,K 3.7 ,CL 101 ,CO2 25,GLU 109 , BUN 10 , CR 0.6, AST 25 ALT : TC 174 ,TG 110,HDL 37,LDL 8992307/25/18: HB 14.6, HT 43.81: DDI 0.51 EKG Low voltage chest leads. rm 11/5/19EKG 911/054/): NSR, IRBBB, NSST changesEKG, 12/06/18: Sinus Rhythm, P,, mormal, QRS..Low voltage in precordial leads. ST-T..normal. EKG without sig. abnormalites. MUEKG 07/28/18 : SVT, Incomplete rbbb, NSST changes 01/19/19 Symptoms did not correlate to any arrhythmia. 15 manual recording where made, rhythm during times of recordings was normal sinus rhythm, sinus tachycardia and SVT noted.Holter Monitor 08/03/18 : Normal sinus rhythm. No PVC's. Rare PAC's noted. Sinus tachycardia 01/19/19 Event MonitorSymptoms did not correlate to any arrhythmia. 15 manual recording where made, rhythm during times of recordings was normal sinus rhythm, sinus tachycardia and SVT noted. 08/03/18 ECHO: LV chamber size is normal. LV wall thickness is normal. LV systolic function is hyperdynamic. There is normal global systolic function and contractility. The estimated left ventricle ejection fraction is 65-70%(normal). There is EA reversal with valsalva. Left atrium chamber is mildly calcified. The aortic valve is mildly calcified. The mitral valve leaflet is mildly thickened. There is trace mitral regurgitation. There is mild tricuspid regurgitation. 07/25/18 CHEST 1 VIEW: No acute cardiopulmonary disease. Lane Gonzalez [place], [place] - [facility] 01/22/2020 16:20:03 05/02/2020 text/html 05/02/2020 CC: leg swelling f/u HPI: 54-year-old white female, who is a former patient of Dr. Monson, with a PMH of diastolic dysfunction, SVT, hypertension and Crohn's disease, obesity autoimmune dysfunction presents today for follow-up. Patient was seen via virtual visit 2 months ago on 01/22/2020. She reports she had L knee surgery by Dr. Hurd d/t 2 meniscus tears on 03/20/2020. Still has some problems with L knee and probably will nned surgery in future. She is now planning for gastric sleeve surgery in [place] for later this year. She continues to have leg edema but reports it has improved and only occurs intermittently. It worse on the right side d/t her recent surgery. She is on Lasix 20mg PRN. Her BP at home typically runs 130s/80s. She reports her high reading today may be 2/2 doing PT right before today's appointment. She is doing PT twice weekly following her right knee surgery. She continues to have occasional palpitations d/t paroxysmal SVT but last less than a minute. They are exacerbated by caffeine whcih she tries to limit. No chest pain. No shortness of breath at rest. No dyspnea on exertion. No orthopnea. No PND's. No dizziness. No syncope or near syncope. No nausea and vomiting. No side effects from medications. Previously she stated that had LE edema which had not improved with diuretics for few months. She has decreased her salt intake. She has c/o of intermittent claudication to BLE that is worse when walking. decreased pedal pulses noted. She states she has had sleep apnea testing done and that was negative. Pt has hx of SVT since she was 20. worse since 40's. She had a Holter with no significant arrhythmia. She refused to been see by EP or to have a cardiac ablation. She previously saw Dr. Gonzalez prior to seeing Dr. Monson. She used to get adenosis 5-6 times. she started to have it when she was 20, since 47 more significant symptoms Pt states that she used to be followed by Dr. Gonzalez then he retired. Then followed by Dr. Monson who retired. She never had EP evaluation and previously did not want to have one. No known CAD, prior ME, valvular heart disease. She never smoked but was exposed to second-hand smoke. Had stress test before which was normal. Results from this visit, or from the past: event monitor 01/19/2019 Symptoms did not correlate to any arrhythmia. 15 manual recording where made, rhythm during times of recordings was normal sinus rhythm, sinus tachycardia and SVT noted. 12/21/2018: HB 13.5,HT 41.2, TC 200 ,TG 73,HDL 50 ,LDL 133, Na 140 , K 4.3, CL 104 ,CO2 28, GLU 92, BUN 17, CR 0.78 Holter monitor 08/03/2018 with recurrent episodes of SVT. Was supposed to see EP however states that her appointments were rescheduled and now are cancelled to viral pandemic. 08/03/2018 ECHO done LV systolic function is hyperdynamic, normal global systolic function and contractility. EF 65-70% , mild tricuspid regurgitation. 07/25/2018: Cholesterol 174,triglycerides 110,HDL 37,[id number] , CBC:WBC 8.1,RBC 5.17,HGB 14.6,HCT 43.8,PLT 339, CMP: Na 137,K 3.7,CL 101,CO2 25,Glucose 109,BUN 10,Creati 0.6Ca 8.9AST 25,ALT 32,Alkaline phosphatase 67 12/21/18: Na 140 , K 4.3, CL 104 ,CO2 28, GLU 92, BUN 17, CR 0.78,12/21/18: HB 13.5,HT 41.2 07/25/18: NA 137 ,K 3.7 ,CL 101 ,CO2 25,GLU 109 , BUN 10 , CR 0.6, AST 25 ALT : TC 174 ,TG 110,HDL 37,LDL 1543507/25/18: HB 14.6, HT 43.81: DDI 0.51 EKG (05/02/20): NSR, IRBBB, NSST changesEKG Low voltage chest leads. rm 05/30/19EKG 911/0511/11): NSR, IRBBB, NSST changesEKG, 12/06/18: Sinus Rhythm, P,, mormal, QRS..Low voltage in precordial leads. ST-T..normal. EKG without sig. abnormalites. MUEKG 07/28/18 : SVT, Incomplete rbbb, NSST changes 01/19/19 Symptoms did not correlate to any arrhythmia. 15 manual recording where made, rhythm during times of recordings was normal sinus rhythm, sinus tachycardia and SVT noted.Holter Monitor 08/03/18 : Normal sinus rhythm. No PVC's. Rare PAC's noted. Sinus tachycardia 01/19/19 Event MonitorSymptoms did not correlate to any arrhythmia. 15 manual recording where made, rhythm during times of recordings was normal sinus rhythm, sinus tachycardia and SVT noted. holter monitor 08-03-2018 Holter Monitor 08/03/18 : Normal sinus rhythm. No PVC's. Rare PAC's noted. Sinus tachycardia. 08/03/18 ECHO: LV chamber size is normal. LV wall thickness is normal. LV systolic function is hyperdynamic. There is normal global systolic function and contractility. The estimated left ventricle ejection fraction is 65-70%(normal). There is EA reversal with valsalva. Left atrium chamber is mildly calcified. The aortic valve is mildly calcified. The mitral valve leaflet is mildly thickened. There is trace mitral regurgitation. There is mild tricuspid regurgitation. 07/25/18 CHEST 1 VIEW: No acute cardiopulmonary disease. Lanecasimiro Gonzalez [facility], [place] - [facility] 05/02/2020 14:59:37 11/19/2022 text/html 11/17/22CC : Car diac clearance before -dnvx-yza white female with h/o diastolic dysfunction, SVT, hypertension and Crohn's disease, obesity autoimmune dysfunction presents today Cardiac clearance before surgery. She was last seen in the clinic on 05/02/20, since then she was in the hospital on 07/18/20. Denies chest pain.Denies shortness of breath at rest. Has mild dyspnea on exertion.No orthopnea. No PNDs.Denies heart palpitations.Denies dizziness. Denies syncope or near syncope.No ankle or leg edema.No major bleeding events.No reported side effects from medications. Taking medications as prescribed with no missed doses.Denies snoring, daytime somnolence and AM headache.*Last LDL was 115 done on 07/24/18.Pt dose not takes any statins. *Had ECHO on 05/03/20 showed LV chamber size is normal. LV wall thickness is normal. The estimated left ventricle ejection fraction is 55-60% (normal). Left atrium chamber is mildly dilated. There is mild thickening of mitral valve anterior leaflet. There is trace tricuspid regurgitation. Previously: She reports she had L knee surgery by Dr. Hurd d/t 2 meniscus tears on 03/20/2020. Still has some problems with L knee and probably will nned surgery in future. She is now planning for gastric sleeve surgery in [place] for later this year. She continues to have leg edema but reports it has improved and only occurs intermittently. It worse on the right side d/t her recent surgery. She is on Lasix 20mg PRN. She is doing PT twice weekly following her right knee surgery. She continues to have occasional palpitations d/t paroxysmal SVT but last less than a minute. They are exacerbated by caffeine which she tries to limit. She never smoked but was exposed to second-hand smoke.Had stress test before which was normal.Results from this visit, or from the past: event monitor 01/19/2019 Symptoms did not correlate to any arrhythmia. 15 manual recording where made, rhythm during times of recordings was normal sinus rhythm, sinus tachycardia and SVT noted. 12/21/2018: HB 13.5,HT 41.2, TC 200 ,TG 73,HDL 50 ,LDL 133, Na 140 , K 4.3, CL 104 ,CO2 28, GLU 92, BUN 17, CR 0.78 Holter monitor 08/03/2018 with recurrent episodes of SVT. Was supposed to see EP however states that her appointments were rescheduled and now are cancelled to viral pandemic. 08/03/2018 ECHO done LV systolic function is hyperdynamic, normal global systolic function and contractility. EF 65-70% , mild tricuspid regurgitation. 07/25/2018: Cholesterol 174,triglycerides 110,HDL 37,[id number] , CBC:WBC 8.1,RBC 5.17,HGB 14.6,HCT 43.8,PLT 339, CMP: Na 137,K 3.7,CL 101,CO2 25,Glucose 109,BUN 10,Creati 0.6Ca 8.9AST 25,ALT 32,Alkaline phosphatase 67 12/21/18: Na 140 , K 4.3, CL 104 ,CO2 28, GLU 92, BUN 17, CR 0.78,12/21/18: HB 13.5,HT 41.2 07/25/18: NA 137 ,K 3.7 ,CL 101 ,CO2 25,GLU 109 , BUN 10 , CR 0.6, AST 25 ALT : TC 174 ,TG 110,HDL 37,LDL 4587307/25/18: HB 14.6, HT 43.81: DDI 0.51 EKG (05/02/20): NSR, IRBBB, NSST changesEKG Low voltage chest leads. 05/30/19EKG 91/0511/11): NSR, IRBBB, NSST changesEKG, 12/06/18: Sinus Rhythm, P,, mormal, QRS..Low voltage in precordial leads. ST-T..normal. EKG without sig. abnormalites. MUEKG 07/28/18 : SVT, Incomplete rbbb, NSST changes 01/19/19 Symptoms did not correlate to any arrhythmia. 15 manual recording where made, rhythm during times of recordings was normal sinus rhythm, sinus tachycardia and SVT noted.Holter Monitor 08/03/18 : Normal sinus rhythm. No PVC's. Rare PAC's noted. Sinus tachycardia 01/19/19 Event MonitorSymptoms did not correlate to any arrhythmia. 15 manual recording where made, rhythm during times of recordings was normal sinus rhythm, sinus tachycardia and SVT noted. holter monitor 08-03-2018 Holter Monitor 08/03/18 : Normal sinus rhythm. No PVC's. Rare PAC's noted. Sinus tachycardia. 08/03/18 ECHO: LV chamber size is normal. LV wall thickness is normal. LV systolic function is hyperdynamic. There is normal global systolic function and contractility. The estimated left ventricle ejection fraction is 65-70%(normal). There is EA reversal with valsalva. Left atrium chamber is mildly calcified. The aortic valve is mildly calcified. The mitral valve leaflet is mildly thickened. There is trace mitral regurgitation. There is mild tricuspid regurgitation. 07/25/18 CHEST 1 VIEW: No acute cardiopulmonary disease. Mamadou Lindsay MD [address] [place], [address], [facility] 11/19/2022 12:22:57 OBGyn Episode No OBEpisode recorded.
--- OUTSIDE RECORDS SUMMARY | 2024-07-11 07:03 | XMS_ITS | Encounter Summary ---
Author Organization [facility] Health Address [address] [place] [place] [address] Care Team Providers Care Balloon Tester Name Role Phone Baldomero Dominguez MD Primary Care Provider [phone] Encounter Details Date Type Department Care Team (Latest Contact Info) Description 01/11/2020 Travel Social History Tobacco Use Types Packs/Day Years Used Date Smoking Tobacco: Never Assessed Sex and Gender Information Value Date Recorded Sex Assigned at Not on file Gender Identity Not on file Sexual Orientation Not on file COVID-19 Exposure Response Date Recorded In the last month, have you been in contact with someone who was confirmed or suspected to have Coronavirus / COVID-19? Unable to assess 01/11/2020 12:04 PM CDT documented as of this encounter Plan of Treatment Not on file documented as of this encounter Visit Diagnoses Not on filedocumented in this encounter Care Teams Balloon Tester Relationship Specialty Start Date End Date Baldomero Dominguez MD [address] [facility] [address] [place] [address] PCP - General 12/29/19 documented as of this encounter
--- OUTSIDE RECORDS SUMMARY | 2024-07-11 07:03 | XMS_ITS | Patient Health Summary ---
Author Organization [facility] Address [address] [place] [address] Care Team Providers Care Project Officer Name Role Phone Baldomero Dominguez MD Primary Care Provider [phone] Note from [facility],non-owned Affiliates and Associated Physician Practices is amultiple site organization consisting of ambulatory clinics and hospital sitesin [place], [place], [place] and [place]. This disclosure is being madepursuant to the Care Everywhere program and may not contain all information available regarding this patient. Last updated 18.[facility] Allergies * Cefaclor(Urticaria) -Medium Criticality Medications * Be aware that medications may not be up to date on this document. Alwaysverify current medications with the patient. * amoxicillin-clavulanate (Augmentin) 500-125 MG tablet(Started 10/18/2023) TAKE 1 TABLET BY MOUTH EVERY 8 HOURS FOR 7 DAYS * fexofenadine (Delma) 180 MG tablet Take 1 (one) tablet by mouth once daily * cyclobenzaprine (Flexeril) 10 MG tablet(Started 10/20/2023) Take 1 (one) tablet by mouth at bedtime Reasons: Fibromyalgia Syndrome * lidocaine (Lidoderm) 5 % patch(Started 10/20/2023) Apply 1 (one) patch to skin once daily Apply patch to most painful area and remove after 12 hours. May reapply a new patch 12 hours later. 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) 09/02/2023 Social History Tobacco Use Types Packs/Day Years Used Date Smoking Tobacco: Never Assessed Sex and Gender Information Value Date Recorded Sex Assigned at Not on file Gender Identity Not on file Sexual Orientation Not on file Last Filed Vital Signs Vital Sign Reading Time Taken Comments Blood Pressure 112/70 09/02/2023 1:17 PM STENCIL CUTTER Pulse 81 09/02/2023 1:17 PM STENCIL CUTTER Temperature 36.7 ??C (98 ??F) 09/02/2023 1:17 PM STENCIL CUTTER Respiratory Rate 16 09/02/2023 1:17 PM STENCIL CUTTER Oxygen Saturation 100% 09/02/2023 1:17 PM STENCIL CUTTER Inhaled Oxygen Concentration - - Weight 103.9 kg (229 lb) 09/02/2023 1:17 PM STENCIL CUTTER Height 167.6 cm (5' 6 ) 09/02/2023 1:17 PM STENCIL CUTTER Body Mass Index 36.96 09/02/2023 1:17 PM STENCIL CUTTER Procedures * LAB(Performed 06/04/2023) * LAB(Performed 07/14/2022) * MAMMOGRAM(Performed 09/14/2019) * CULTURE AEROBIC(Performed 11/13/2014) Results * LAB (06/04/2023) Only the most recent of2 resultswithin the time period is included. Scanned Document SCANNING ONLY * MAMMOGRAM (09/14/2019) Anatomical Region Laterality Modality Other Historical Provider MD SCANNING ONLY * CULTURE AEROBIC (11/13/2014) Culture Aerobic SEE NOTE [facility] ([facility]) Comment: ??CULTURE, AEROBIC BACTERIA WITH GRAM STAIN ?MICRO NUMBER: ?[id number] ??TEST STATUS: ? FINAL ??SPECIMEN SOURCE: ?? RIGHT LEG ??SPECIMEN QUALITY: ??ADEQUATE ??GRAM STAIN: ?No organisms or white blood cells seen ??RESULT: ?Growth of skin jewel (note: Growth does not ? include S. aureus, beta-hemolytic Streptococci ? or P. aeruginosa). REPORT COMMENT: SPECIMEN TYPE->SKIN Test Performed at: [facility] ??[id number] JAMISON MENA MD Skin (tissue) specimen (specimen) 11/13/2014 11/14/2014 10:07 PM CDT Narrative [facility] ([facility]) - 11/17/2014 7:00 AM CDT Specimen Type->Skin Sobia [facility] - MICROBIOLOGY O RDERABLES [facility] ([facility]) Care Teams Project Officer Relationship Specialty Start Date End Date Baldomero Dominguez MD [address] [place] [address] PCP - General 12/29/19
--- OUTSIDE RECORDS SUMMARY | 2024-07-11 07:03 | XMS_ITS | Encounter Summary ---
Author Organization [facility] Address [address] [place] [address]. [place], [place] [address] [place] [address] Care Team Providers Care Sports Team Manager Name Role Phone Baldomero Dominguez MD Primary Care Provider [phone] Tram Dia MD Unavailable Reason for Visit * Reason Onset Date Comments Information 11/26/2020 patient record r equest Encounter Details Date Type Department Care Team (Late st Contact Info) Description 11/26/2020 Telephone [facility] [address] [address] Klyer Otoole MD [facility]. [address] [address] Information (patient record request) Social History Tobacco Use Types Packs/Day Years Used Date Smoking Tobacco: Never Smokeless Tobacco: Never Alcohol Use Standard Drinks/Week Comments Yes 0 (1 standard drink = 0.6 oz pur e alcohol) Drinks occasionally Comments Unknown Sex and Gender Information Value Date Recorded Sex Assigned at Not on file Legal Sex Female 11:35 PM CDT Gender Identity Not on file Sexual Orientation Not on file Occupation Industry Job Start Date Job End Date Not on file Not on file Not on file Not on file documented as of this encounter Progress Notes * Ashlie Pena - 11/26/2020 10:48 AM CDT 11/26/20 patient left a voicemail asking for her stress test to be faxed to Kamla Terry . I looked up address, phone, and fax [address] [place] [address] I returned call to patient and left her a message to contact me. Her last stress echo was 02/28/14. documented in this encounter Plan of Treatment Not on file documented as of this encounter Visit Diagnoses Not on filedocumented in this encounter Care Teams Sports Team Manager Relationship Specialty Start Date End Date Baldomero Dominguez MD [address] [place] [address] [address] [place] [address] PCP - General FAMILY PRACTICE 01/24/16 Tram Dia MD [address] [address] EP Bending Machine Set Up Operator CARDIOVASCULAR DISEASE 09/24/16 documented as of this encounter
--- OUTSIDE RECORDS SUMMARY | 2024-07-11 07:03 | XMS_ITS | Clinical Summary ---
Author Organization [facility] Address [address] [place] [address] Care Team Providers Care Flexible Machining System Machinist Name Role Phone Baldomero Dominguez MD Primary Care Provider [phone] Source Comments [facility],non-owned Affiliates and Associated Physician Practices is amultiple site organization consisting of ambulatory clinics and hospital sitesin [place], [place], [place] and [place]. This disclosure is being madepursuant to the Care Everywhere program and may not contain all information available regarding this patient. Last updated 18.[facility] Allergies Active Allergy Reactions Criticality Noted Date Comments Cefaclor Urticaria Medium 12/24/2020 Medications * Be aware that medications may not be up to date on this document. Alwaysverify current medications with the patient. Medication Sig Dispensed Refills Start Date End Date Status amoxicillin-clavul anate (Augmentin) 500-125 MG tablet TAKE 1 TABLET BY MOUTH EVERY 8 HOURS FOR 7 DAYS 10/18/2023 Active fexofenadine (Delma) 180 MG tablet Take 1 (one) tablet by mouth once daily Active cyclobenzaprine (Flexeril) 10 MG tabletIndications: Fibromyalgia Syndrome Take 1 (one) tablet by mouth at bedtime Reasons: Fibromyalgia Syndrome 30 tablet 10/20/2023 Active lidocaine (Lidoderm) 5 % patchIndications:F ibromyalgia syndrome Apply 1 (one) patch to skin once daily Apply patch to most painful area and remove after 12 hours. May reapply a new patch 12 hours later. 30 patch 10/20/2023 Active Active Problems Problem Noted Date Diagnosed Date [...] Comments Blood Pressure 112/70 09/02/2023 1:17 PM INFORMATION RESOURCES DIRECTOR Pulse 81 09/02/2023 1:17 PM INFORMATION RESOURCES DIRECTOR Temperature 36.7 ??C (98 ??F) 09/02/2023 1:17 PM INFORMATION RESOURCES DIRECTOR Respiratory Rate 16 09/02/2023 1:17 PM INFORMATION RESOURCES DIRECTOR Oxygen Saturation 100% 09/02/2023 1:17 PM INFORMATION RESOURCES DIRECTOR Inhaled Oxygen Concentration - - Weight 103.9 kg (229 lb) 09/02/2023 1:17 PM INFORMATION RESOURCES DIRECTOR Height 167.6 cm (5' 6 ) 09/02/2023 1:17 PM INFORMATION RESOURCES DIRECTOR Body Mass Index 36.96 09/02/2023 1:17 PM INFORMATION RESOURCES DIRECTOR Plan of Treatment Health Maintenance Due Date Last Done Comments COLOGUARD (AGES 45-75) - COLON CA SCREENING 1967 COLON MONITORING 1967 COLONOSCOPY - COLON CA SCREENING 1967 CT COLONOGRAPHY - COLON CA SCREENING 1967 Colorectal Cancer Screening 1967 FIT - COLON CA SCREENING 1967 FLEX SIG - COLON CA SCREENING 1967 LIPID TESTING 1967 PAP SMEAR 1967 HIV SCREENING 1982 HEPATITIS C SCREENING 06/27/1985 DTAP/TDAP/TD VACCINES (1 - Tdap) 1986 HEPATITIS B VACCINE (1 of 3 - 19+ 3-dose series) 1986 ZOSTER VACCINE (1 of 2) 2017 MAMMOGRAM 09/14/2021 09/14/2019, 11/0 11/2017, 08/18/2013, Additional history exists DEPRESSION SCREENING 07/26/2023 SCREENING FOR DIABETES 09/02/2023 COVID-19 VACCINE ( season) 2024 INFLUENZA VACCINE (#1) 2024 HIB VACCINE Aged Out No longer eligi ble based on patient's age to complete this topic HPV VACCINE Aged Out No longer eligi ble based on patient's age to complete this topic MENINGOCOCCAL VACCINE Aged Out No shannan dary eligible based on patient's age to complete this topic PNEUMOCOCCAL VACCINE Aged Out No long er eligible based on patient's age to complete this topic Procedures Procedure Name Priority Date/Time Associated Diagnosis Comments MAMMOGRAM Routine 09/14/2019 from Last 3 Months or Most Recently Relevant to Health Maintenance Results * MAMMOGRAM (09/14/2019) Anatomical Region Laterality Modality Other Historical Provider MD SCANNING ONLY from Last 3 Months or Most Recently Relevant to Health Maintenance Care Teams Flexible Machining System Machinist Relationship Specialty Start Date End Date Baldomero Dominguez MD [address] [place] [address] [address] [place] [address] PCP - General 12/29/19
--- OUTSIDE RECORDS SUMMARY | 2024-07-11 07:03 | XMS_ITS | Encounter Summary ---
Author Organization [facility] Address [address] [place] [address] Care Team Providers Care Border Patrol Officer Name Role Phone Baldomero Dominguez MD Primary Care Provider [phone] Encounter Details Date Type Department Care Team (Late st Contact Info) Description 01/11/2020 Orders Only [facility] General Surgery [address] [place] [address] Paulina Butler RN Abnormal mammogram Social History Tobacco Use Types Packs/Day Years Used Date Smoking Tobacco: Never Assessed Sex and Gender Information Value Date Recorded Sex Assigned at Not on file Gender Identity Not on file Sexual Orientation Not on file documented as of this encounter Plan of Treatment Not on file documented as of this encounter Visit Diagnoses Diagnosis Abnormal mammogram- Primary Abnormal mammogram, unspecified documented in this encounter Care Teams Border Patrol Officer Relationship Specialty Start Date End Date Baldomero Dominguez MD [address] [facility] [address] [place] [address] PCP - General 12/29/19 documented as of this encounter
--- OUTSIDE RECORDS SUMMARY | 2024-07-11 07:03 | XMS_ITS | Encounter Summary ---
Author Organization [facility] Address [address] [place] [address] Care Team Providers Care Human Resource Internship Name Role Phone Baldomero Dominguez MD Primary Care Provider [phone] Reason for Visit * Reason Comments Establish Care Elevated RF, joint p ain Encounter Details Date Type Department Care Team (Late st Contact Info) Description 09/02/2023 1:20 PM PRODUCTION SUPPLY EQUIPMENT TENDER Office Visit [facility] - Rheumatology [address] [facility] [address] [facility] [address], [address] [place] [address] Alexx Bianchi DO [address] [facility] [address] [address] [facility] [address] [place] [address] Fibromyalgia syndrome (Primary Dx); Primary osteoarthritis involving multiple joints (lumbar spine and bilateral knees); Rheumatoid factor positive 18 IU/ml (normal less than 14) Social History Tobacco Use Types Packs/Day Years Used Date Smoking Tobacco: Never Assessed Sex and Gender Information Value Date Recorded Sex Assigned at Not on file Gender Identity Not on file Sexual Orientation Not on file documented as of this encounter Last Filed Vital Signs Vital Sign Reading Time Taken Comments Blood Pressure 112/70 09/02/2023 1:17 PM PRODUCTION SUPPLY EQUIPMENT TENDER Pulse 81 09/02/2023 1:17 PM PRODUCTION SUPPLY EQUIPMENT TENDER Temperature 36.7 ??C (98 ??F) 09/02/2023 1:17 PM PRODUCTION SUPPLY EQUIPMENT TENDER Respiratory Rate 16 09/02/2023 1:17 PM PRODUCTION SUPPLY EQUIPMENT TENDER Oxygen Saturation 100% 09/02/2023 1:17 PM PRODUCTION SUPPLY EQUIPMENT TENDER Inhaled Oxygen Concentration - - Weight 103.9 kg (229 lb) 09/02/2023 1:17 PM PRODUCTION SUPPLY EQUIPMENT TENDER Height 167.6 cm (5' 6 ) 09/02/2023 1:17 PM PRODUCTION SUPPLY EQUIPMENT TENDER Body Mass Index 36.96 09/02/2023 1:17 PM PRODUCTION SUPPLY EQUIPMENT TENDER documented in this encounter Patient Instructions * Patient Instructions* Alexx Bianchi DO - 09/02/2023 1:58 PM PRODUCTION SUPPLY EQUIPMENT TENDER ICD-10-CM 1. Fibromyalgia syndrome Active M79.7 2. Primary osteoarthritis involving multiple joints (lumbar spine and bilateral knees) Chronic M15.9 3. Rheumatoid factor positive 18 IU/ml (normal less than 14) R76.8 Fibromyalgia syndrome (Primary) - DULoxetine (Cymbalta) 30 MG capsule; Take 1 (one) capsule by mouth at bedtime Reasons: Fibromyalgia Syndrome, Musculoskeletal Pain, Knee and lumbar spine osteoarthritis related pain. - Fibromyalgia is a painful condition that is not completely understood by medical experts. The cause of fibromyalgia is not known. A person may feel tired and ache all over. It causes tender spots on the body that hurt only when pressed upon. A patient may have trouble sleeping, as well as other symptoms. These problems can upset work and home life. Symptoms tend to come and go, although they may never go away completely. Fibromyalgia does not harm the muscles, joints or organs or cause any permanent deformity or disability in the body. Fibromyalgia syndrome is characterized by generalized noninflammatory pain and is associated with long-standing pain that may come and go and be variable or at time persistently contant. The pain may be located in the soft tissues including tendons or muscles or joints. The pain can occur in any of the extremities and also be felt along the spine or torso. This is the reason some people feel that they have arthritis. Other unusual symptoms that may suggest an underlying neurologic disorder have also been described in patients with fibromyalgia including numbness and tingling type sensations and shooting pains . Patients often describe fatigue andmay awaken with non restorative sleep quality. The condition can occur in men or women in any age but is most common in women routine the ages of 20 in 50. There is no specific test used that can confirm the diagnosis of fibromyalgia and is considered a diagnosis of exclusion where by other conditions need to be excluded and this may or may not require additional test to be performed. The currentnature of fibromyalgia seems to suggest that this syndrome represents a disorder of increased sensitivity in pain perception or so-called central pain amplification. Unfortunately, the exact cause ofthis disorder still remains elusive and unknown and limits the treatment to symptom relief without any known cure at this time. Primary osteoarthritis involving multiple joints (lumbar spine and bilateral knees) - DULoxetine (Cymbalta) 30 MG capsule; Take 1 (one) capsule by mouth at bedtime Reasons: Fibromyalgia Syndrome, Musculoskeletal Pain, Knee and lumbar spine osteoarthritis related pain. Rheumatoid factor positive 18 IU/ml (normal less than 14) - HEPATITIS C ANTIBODY - The finding of a positive rheumatoid factor of undetermined clinical significance (with low pre-test probability for rheumatoid arthritis) without current history, examination findings, and/or additional available laboratory results for review, regarding this finding being consistent with the specific diagnosis of rheumatoid arthritis by [employer] classification criteria nor seems to suggest any other active inflammatory polyarthropathy at this time. Rheumatoid factors are nonspecific in nature and can be seen in otherwise healthy individuals and generally are more frequently found in older age groups. Rheumatoid factor can be seen as an immunologic phenomena in patients with chronic infections (e.g. tuberculosis, syphilis, hepatitis C), chronic gingivitis and periodontal disease, cryoglobulinemia, and pulmonary fibrosis. Additional evaluation should be considered in clinically indicated cases. UCTION SUPPLY EQUIPMENT TENDER documented in this encounter Progress Notes * Alexx Bianchi DO - 09/02/2023 1:31 PM CST RHEUMATOLOGY INITIAL OFFICE ENCOUNTER NOTE 09/02/2023 REFERRING PHYSICIAN/PROVIDER: Baldomero Dominguez MD [address] [place] [id number] REASON FOR CONSULT: Chief Complaint Patient presents with ??? Establish Care Elevated RF, joint pain HISTORY OF PRESENTING ILLNESS: Rowena Quesada is a 58 year old female who was referred to [facility] Rheumatology for evaluation of a detected low positive rheumatoid factor at 18 IU/mL (normal less than 14) as noted on 07/14/2022 lab testing that also included a normal sedimentation rate of 10 millimeter/hour and minimally elevated C-reactive protein at 0.57 mg/dL (normal less than 10) as noted on outside lab testing performed 07/14/2022. Unfortunately she has sustained 2 previous left knee injuries causing a meniscus damage having required 2 prior arthroscopic partial meniscectomies over last few years but has continued to experience problems with ongoing left knee arthralgia. She does recall having received previous intra-articular corticosteroid injection and perhaps hyaluronic acid derivative Visco supplement injection as provided by her orthopedic surgeon for left knee pain symptoms without much relief.She does describe symptoms of chronic mechanical low back pain but also describes more diffuse musculoskeletal achiness consistent with a fibromyalgia type syndrome. She has been diagnosed with obstructive sleep apnea but has been unable to tolerate CPAP. Generally does not sleep well throughout the night and awakens with a non restorative sleep quality. She works 2 jobs in generally gets up at 4:00 a.m. 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 She has had previous bariatric surgery but more recently following a good weight loss has noted about a 30 lb increase in her weight. Outside records review: Records received by fax and reviewed from the referring office of Baldomero Dominguez MD [facility] include chart notes and laboratory testing results. REVIEW OF SYSTEMS: ROS See pertinent positive and/or negative in HPI PAST MEDICAL HISTORY: Past Medical History: Diagnosis Date ??? Arthritis ??? Asthma ??? Hypertension ??? Irritable bowel syndrome ??? Morbid obesity ([facility]) PAST SURGICAL HISTORY: Past Surgical History: Procedure Laterality Date ??? Section ??? Cholecystectomy FAMILY HISTORY: No family history on file. Allergies Allergen Reactions ??? Cefaclor Urticaria Social History Socioeconomic History ??? Marital status: Single Spouse name: Not on file ??? Number of children: Not on file ??? Years of education: Not on file ??? Highest education level: Not on file Occupational History ??? Not on file Tobacco Use ??? Smoking status: Not on file ??? Smokeless tobacco: Not on file Substance and Sexual Activity ??? Alcohol use: Not on file ??? Drug use: Not on file ??? Sexual activity: Not on file Other Topics Concern ??? Not on file Social History Narrative ??? Not on file Social Determinants of Health Financial Resource Strain: Not on file Food Insecurity: Not on file Transportation Needs: Not on file Stress: Not on file Housing Stability: Not on file There is no immunization history on file for this patient. Current Outpatient Medications Medication Sig Dispense Refill ??? DULoxetine (Cymbalta) 30 MG capsule Take 1 (one) capsule by mouth at bedtime Reasons: Fibromyalgia Syndrome, Musculoskeletal Pain, Knee and lumbar spine osteoarthritis related pain. 30 capsule 1 ??? ferrous sulfate 325 (65 FE) MG tablet Take 1 (one) tablet by mouth once daily ??? multivitamins plus minerals chew tablet Take 1 (one) tablet by mouth daily with food ??? vitamin D3 (Cholecalciferol) 10 MCG (400 UNIT) tablet Take 1 (one) tablet by mouth once daily No current facility-administered medications for this visit. VITALS: Wt Readings from Last 3 Encounters: 09/02/23 103.9 kg (229 lb) Temp Readings from Last 3 Encounters: 09/02/23 98 ??F (36.7 ??C) BP Readings from Last 3 Encounters: 09/02/23 112/70 Pulse Readings from Last 3 Encounters: 09/02/23 81 Physical Exam GEN: Pleasant obese female who ambulates without the use of an assistive device. HEENT: Anicteric. No appearance of episcleritis, scleritis or ciliary flush. MSK: Multiple soft tissue tender points suggestive of allodynia with >11/18 positive fibromyalgia tender points noted. Left greater than right with slight crepitus with passive range of motion butno palpable joint effusion noted. Physical Exam There is currently no information documented on the homunculus. Go to the Rheumatology activity andcomplete the homunculus joint exam. SKIN: No rash including plaque psoriasis or rheumatoid nodules identified. PSYCH: Alert. Appropriate. LABS: No results for input(s): WBC , RBC , HGB , HCT , MCV , MCHC , PLTCOUNT , NEUTPCT , LYMPHPCT , MONOCYTPCT , EOSINPCT , BASOPHILPCT , GRANSIMMPCT , NEUTABS , LYMPHABS , MONOCYTABS , EOSINABS , BASOABS , IMMGRANSABS in the last 58549 hours. No results for input(s): SODIUM , POTASSIUM , CHLORIDE , CO2 , BUN , CREATININE , GLUCOSE , CALCIUM , ALBUMIN , ALKPHOS , ALT , AST , TBIL , TPROT , EGFR in the last 57433 hours. No results for input(s): CRP in the last 45492 hours. No results for input(s): SEDRATE in the last 94609 hours. No results for input(s): RAQNT in the last 35302 hours. No results for input(s): CCPIGG in the last 82361 hours. No results for input(s): RACHELLE , ANATITER in the last 79156 hours. No results for input(s): DNAABDS in the last 35506 hours. No results for input(s): C3 in the last 87865 hours., No results for input(s): C4 in the last 46501 hours. No results for input(s): SMAB , SMRNPAB , SSAAB , SSBAB , ZPW03SD in the last 47544 hours. No results for input(s): CK in the last 08907 hours. No results for input(s): COLORUA , CLARITYUA , SPECGRAVUA , PHUA , PROTEINUA , BLOODUA , LEUKOCYTEUA , NITRITEUA , GLUCOSEUA , KETONEUA , BILIRUBINUA , UROBILINUA , REDSUBUA , WBCUAAUTO , RBCUAAUTO , EPITHUAAUTO , BACTUAAUTO , YEASTUAAUTO , SPERMUAAUTO , CASTUAAUTO , CRYSUAAUTO , MUCUSUAAUTO in the last 11017 hours. No results for input(s): [id number] in the last 85040 hours. IMAGING: No image results found. ASSESSMENT/PLAN: Orders Placed This Encounter ??? HEPATITIS C ANTIBODY ??? DULoxetine (Cymbalta) 30 MG capsule ICD-10-CM 1. Fibromyalgia syndrome Active M79.7 2. Primary osteoarthritis involving multiple joints (lumbar spine and bilateral knees) Chronic M15.9 3. Rheumatoid factor positive 18 IU/ml (normal less than 14) R76.8 Fibromyalgia syndrome (Primary) Comments: Symptoms of chronic widespread body pain with exam findings of allodynia most consistent with a fibromyalgia syndrome. Orders: - DULoxetine (Cymbalta) 30 MG capsule; Take 1 (one) capsule by mouth at bedtime Reasons: Fibromyalgia Syndrome, Musculoskeletal Pain, Knee and lumbar spine osteoarthritis related pain. Primary osteoarthritis involving multiple joints (lumbar spine and bilateral knees) - DULoxetine (Cymbalta) 30 MG capsule; Take 1 (one) capsule by mouth at bedtime Reasons: Fibromyalgia Syndrome, Musculoskeletal Pain, Knee and lumbar spine osteoarthritis related pain. Rheumatoid factor positive 18 IU/ml (normal less than 14) The finding of a positive rheumatoid factor of undetermined clinical significance (with low pre-test probability for rheumatoid arthritis) without current history, examination findings, and/or additional available laboratory results for review, regarding this finding being consistent with the specific diagnosis of rheumatoid arthritis by [employer] classification criteria nor seems to suggest any other active inflammatory polyarthropathy at this time. Rheumatoid factors are nonspecific in nature and can be seen in otherwise healthy individuals and generally are more frequently found in older age groups. Rheumatoid factor can be seen as an immunologic phenomena in patients with chronic infections (e.g. tuberculosis, syphilis, hepatitis C), chronic gingivitis and periodontal disease, cryoglobulinemia, and pulmonary fibrosis. Additional evaluation should be consideredin clinically indicated cases. - HEPATITIS C ANTIBODY Return in about 4 weeks (around 09/30/2023). Thank you for allowing me to participate in the rheumatologic care of your pleasant patient. Pleasedo not hesitate to contact me if I can provide any additional follow-up information that you may require. Alexx Bianchi D.O., FACR [facility] Medical group Division of Rheumatology at [facility] The total time spent today in the visit with the patient for this initial encounter, including performing chart preparation, review of available data, and documentation, patient education, not related to any procedure or preventative visit services was 45 minutes. Portions of the record was created with voice recognition software.Variances in corporate librarian may occur Alexx Bianchi DO 09/02/2023 2:06 PM UCTION SUPPLY EQUIPMENT TENDER documented in this encounter Plan of Treatment Scheduled Orders Name Type Priority Associated Diagnoses Orde r Schedule HEPATITIS C ANTIBODY Lab Routine Rheumatoid factor positive 18 IU/ml (normal less than 14) Ordered: 09/02/2023 documented as of this encounter Visit Diagnoses Diagnosis Fibromyalgia syndrome- Primary Mylagia and myositis, unspecified Primary osteoarthritis involving multiple joints (lumbar spine and bilateral knees) Rheumatoid factor positive 18 IU/ml (normal less than 14) Other and unspecified nonspecific immunological findings documented in this encounter Care Teams Human Resource Internship Relationship Specialty Start Date End Date Baldomero Dominguez MD [address] [place] [address] PCP - General 12/29/19 documented as of this encounter
--- OUTSIDE RECORDS SUMMARY | 2024-07-11 07:03 | XMS_ITS | Encounter Summary ---
Author Organization [facility] Address [address] [place] [address] Care Team Providers Care Aviation Safety Inspector Name Role Phone Baldomero Dominguez MD Primary Care Provider [phone] Reason for Visit * Reason Onset Date Comments Update 09/27/2023 Encounter Details Date Type Department Care Team (Late st Contact Info) Description 09/27/2023 Telephone [facility] - Rheumatology [address] [facility] [facility] [address] [place] [address] Alexx Bianchi DO [address] [facility] [address] [place] [address] Update Social History Tobacco Use Types Packs/Day Years Used Date Smoking Tobacco: Never Assessed Sex and Gender Information Value Date Recorded Sex Assigned at Not on file Gender Identity Not on file Sexual Orientation Not on file documented as of this encounter Miscellaneous Notes * Addendum Note - Jenny Martinez, RN - 09/27/2023 1:38 PM CSTAddended by: JENNY MARTINEZ on: 09/27/2023 01:38 PM Modules accepted: Orders CONTROL CHEMICAL TECHNICIAN * Telephone Encounter - Jenny Martinez RN - 09/27/2023 1:37 PM CST Patient contacted and informed of Dr. Bianchi's below response. All questions and concerns addressed,patient verbalized understanding and no further questions at this time. Patient would prefer to wait until follow-up to discuss alternative medications. Duloxetine discontinued per Dr. Bianchi and patient will stop the medication permanently. CONTROL CHEMICAL TECHNICIAN * Telephone Encounter - Alexx Bianchi DO - 09/27/2023 12:30 PM CST Agree with stopping the duloxetine 30 mg QD dose. Side effects of nausea should resolve within 48 hours of taking last dose. Could consider a lower dose of duloxetine at 20 mg QD for fibromyalgia. Alternatively other treatment options such as gabapentin, pregabalin, cyclobenzaprine could be considered and discussed at follow up appointment. CONTROL CHEMICAL TECHNICIAN * Telephone Encounter - Jenny Martinez RN - 09/27/2023 11:27 AM CST Patient called the office to let Dr. Bianchi know that since she started the duloxetine she has been experiencing nausea and dizziness. Patient was advised to hold further low dose duloxetine until further recommendations received from Dr. Bianchi. Please advise. CONTROL CHEMICAL TECHNICIAN documented in this encounter Plan of Treatment Not on file documented as of this encounter Visit Diagnoses Not on filedocumented in this encounter Care Teams Aviation Safety Inspector Relationship Specialty Start Date End Date Baldomero Dominguez MD [address] [place] [id number] PCP - General 12/29/19 documented as of this encounter
--- OUTSIDE RECORDS SUMMARY | 2024-07-11 07:03 | XMS_ITS | Encounter Summary ---
Author Organization [facility] Address [address] [facility] [place] [address] Care Team Providers Care Protection Specialist Name Role Phone Baldomero Dominguez MD Primary Care Provider [phone] Reason for Visit * Reason Onset Date Comments Referral 07/22/2022 Encounter Details Date Type Department Care Team (Late st Contact Info) Description 07/22/2022 Telephone [facility] Medical [facility] - Rheumatology [address] [facility] [facility] [address] [place] [address] [place] [address] [place] [address] [address] [place] [address] Referral Social History Tobacco Use Types Packs/Day Years Used Date Smoking Tobacco: Never Assessed Sex and Gender Information Value Date Recorded Sex Assigned at Not on file Gender Identity Not on file Sexual Orientation Not on file documented as of this encounter Miscellaneous Notes * Telephone Encounter - Amaris Ontiveros LPN - 07/24/2022 12:09 PM PREPARATION CENTER COORDINATOR Called patient as a referral to [facility] Rheum by Dr Dominguez for +RF and polyarthralgia. LVM asking for a callback to schedule CASINO SHIFT MANAGER appt. Call # 3, no further calls will be made but if patuient calls back , may schedule with either provider. ARATION CENTER COORDINATOR * Telephone Encounter - Amaris Ontiveros LPN - 07/23/2022 8:11 AM PREPARATION CENTER COORDINATOR Called patient as a referral to [facility] Rheumatology from Dr Dominguez for +RF and polyarthralgia. No answer at either number, LVM asking for a callback. Call #2. ARATION CENTER COORDINATOR * Telephone Encounter - Phil Martinez RN - 07/22/2022 3:16 PM CST Received a faxed referral from Dr. Dominguez requesting patient be evaluated by rheumatology for +RF and polyarthralgia. Patient called, no answer, LMOR for patient to contact the office back in order toschedule a CASINO SHIFT MANAGER appointment with either Dr. Bianchi or Dr. Bolivar. Called referral x1. ARATION CENTER COORDINATOR documented in this encounter Plan of Treatment Not on file documented as of this encounter Visit Diagnoses Not on filedocumented in this encounter Care Teams Protection Specialist Relationship Specialty Start Date End Date Baldomero Dominguez MD [address] [place] [id number] PCP - General 12/29/19 documented as of this encounter
--- OUTSIDE RECORDS SUMMARY | 2024-07-11 07:03 | XMS_ITS | Clinical Summary ---
Author Organization [facility] Address [address] [place] [address]. [place], [place] [address] [place] [address] Care Team Providers Care Intensive Care Unit Registered Nurse Name Role Phone Baldomero Dominguez MD Primary Care Provider [phone] Tram Dia MD Unavailable Allergies No known active allergies Medications Ferrous Sulfate 325 (65 FE) MG Tab EC Take 1 tablet (325 mg total) by mouth daily. 02/06/20 16 Active diltiazem 240 MG 24 hr capsuleIndication s:Prior Authorization for Cartia 240mg has been APPROVED from 02-12-16 through 02-11-2017 Take 1 capsule (240 mg total) by mouth 2 (two) times daily. ReasonsPrior Authorization for Cartia 240mg has been APPROVED from 02-12-16 through 02-11-2017 Prior Authorization for Cartia 240mg has been APPROVED from 02-12-16 through 02-11-2017 02/13/20 16 Active Active Problems Problem Noted Date Diagnosed Date SVT (supraventricular tachycardia) ([facility]) 08/13/2016 Family History Medical History Relation Comments Hypertension Maternal Grandmother Relation Status Comments Maternal Grandmother Social History Tobacco Use Types Packs/Day Years [...] file Not on file Not on file Last Filed Vital Signs Vital Sign Reading Time Taken Comments Blood Pressure 128/72 10/16/2016 1:58 PM CDT Pulse 90 10/16/2016 1:58 PM CDT Temperature - - Respiratory Rate - - Oxygen Saturation 98% 10/16/2016 1:58 PM CDT Inhaled Oxygen Concentration - - Weight 124.3 kg (274 lb) 10/16/2016 1:58 PM CDT Height 167.6 cm (5' 6 ) 10/16/2016 1:58 PM CDT Body Mass Index 44.22 10/16/2016 1:58 PM CDT Plan of Treatment Health Maintenance Due Date Last Done Comments Cervical Cancer Screening Pa p Smear (Age 30 to 64) Every 3 Years 1967 Colorectal Cancer Screening Colonoscopy (10 Years) 1967 Annual Physical 1970 Hepatitis C 1985 DTaP, Tdap and Td Vaccines ( 1 - Tdap) 1986 Hepatitis B Vaccines (1 of 3 - 19+ 3-dose series) 1986 Cervical Cancer Screening Pa p with HPV Testing (Age 30 to 64) Every 5 Years 1997 Cervical Cancer Screening with HPV 1997 Mammogram Screening 2007 Zoster Vaccines (1 of 2) 2017 COVID-19 Vaccine (2023-2 5 season) 2024 Influenza Adult (#1) 2024 Meningococcal Vaccine Aged Out No shannan dary eligible based on patient's age to complete this topic Pneumococcal Vaccine: Pediat rics (0 to 5 Years) and At-Risk Patients (6 to 64 Years) Aged Out No longer eligible b ased on patient's age to complete this topic RSV Immunizations Under 20 Months Aged Out No longer eligible based on patient's age to complete this topic Insurance MEDICAID [employer] Care Teams Intensive Care Unit Registered Nurse Relationship Specialty Start Date End Date Baldomero Dominguez MD [address] [facility] [address] [place] [address] PCP - General FAMILY PRACTICE 01/24/16 Tram Dia MD [id number] [place] [address] EP Environmental Services Lead CARDIOVASCULAR DISEASE 09/24/16
--- OUTSIDE RECORDS SUMMARY | 2024-07-11 07:03 | XMS_ITS | Encounter Summary ---
Author Organization [facility] Address [address] [place] [address] Care Team Providers Care Nature Photographer Name Role Phone Baldomero Dominguez MD Primary Care Provider [phone] Reason for Visit * Reason Comments Follow-up Has sinus infection Encounter Details Date Type Department Care Team (Late st Contact Info) Description 10/20/2023 3:00 PM CDT Video Visit [facility] Medical [facility] - Rheumatology [address] [facility], [address] [place] [address] Alexx Bianchi DO [address] [facility] [address] [place] [address] Fibromyalgia syndrome ; Primary osteoarthritis involving multiple joints (lumbar spine and bilateral knees) Social History Tobacco Use Types Packs/Day Years Used Date Smoking Tobacco: Never Assessed Sex and Gender Information Value Date Recorded Sex Assigned at Not on file Gender Identity Not on file Sexual Orientation Not on file documented as of this encounter Progress Notes * Alexx Bianchi DO - 10/20/2023 3:16 PM CDT RHEUMATOLOGY OFFICE TELEMEDICINE ENCOUNTER FOLLOW UP NOTE Patient Verification & Telemedicine Based Consent I am proceeding with this evaluation at the direct request of the patient. I have verified this is the correct patient and have obtained verbal consent from the patient/surrogate to perform this voluntary telemedicine encounter evaluation. I have explained risks (including potential loss of confiden tiality), benefits, alternatives, and the potential need for subsequent face to face care. Patient/surrogate understands that there is a risk of medical inaccuracies given that our recommendations will be made based on reported data. Knowing that there is a risk that this information is not reported accurately, and that the telemedicine audio, or data feed may be incomplete, the patient agrees toproceed with evaluation and holds us harmless knowing these risks. In this evaluation, we will be providing recommendations only. The patient/surrogate has been notified that other healthcare professionals (including students, residents and technical personnel) may be involved in this audio evaluation. All laws concerning confidentiality and patient access to medical records and copies of medicalrecords apply to telemedicine. I have reviewed this above verification and consent paragraph with the patient/surrogate. Patient location: Home This encounter was performed using: audio and video Time spent with patient/proxy: 13 minutes (started at 3:12 PM, ended at 3:25 PM ) Additionally, I also spent time on the day of the visit preparing to see the patient and completingthe visit documentation, including - ? Preparing to see the patient (review of tests, records, etc) Time: 1 minutes ? Ordering medications, tests, or procedures as needed Time: 1 minutes ? Referring and/or communicating with other health manager home healthcare Time: 0 minutes ? Documenting clinical information in the electronic health record Time: 2 minutes ? Care coordination as needed Time: 0 minutes 10/20/2023 REFERRING PHYSICIAN/PROVIDER: Baldomero Dominguez MD [address] [place] [id number] INDICATION FOR RHEUMATOLOGIC FOLLOW-UP CARE: Chief Complaint Patient presents with ??? Follow-up Has sinus infection Rowena Quesada is a 58 year old female was initially seen in [facility] on 09/02/2023 for evaluation of a detected low positive rheumatoid factor at 18 IU/mL (normal less than 14) as noted on 07/14/2022 lab testing that also included a normal sedimentation rate of 10 millimeter/hour and minimally elevated C-reactive protein at 0.57 mg/dL (normal less than 10) as noted on outside lab testing performed 07/14/2022 but without confirmation of an inflammatory arthritis conditionincluding rheumatoid arthritis and subsequently having been diagnosed with a fibromyalgia syndrome.She was started on low-dose duloxetine 30 mg daily but almost immediately began experiencing nauseaand the medication has been discontinued. She has not sleep well and also has been diagnosed with obstructive sleep apnea but is not able to utilize CPAP and is awaiting further follow-up with her sleep medicine specialist in October 2023. Past rheumatologic history: Rowena Quesada has sustained 2 previous left knee injuries causing a meniscus damage having required 2 prior arthroscopic partial meniscectomies over last few years but has continued to experience problems with ongoing left knee arthralgia. She previously recalled having received previous intra-articular corticosteroid injection and perhaps hyaluronic acid derivative Visco supplement injection as provided by her orthopedic surgeon for left knee pain symptoms without much relief. She does describe symptoms of chronic mechanical low back pain but also described a more diffuse musculoskeletal achiness consistent with a fibromyalgia type syndrome. She has been diagnosed with obstructive sleep apnea but has not been unable to tolerate CPAP. Generally does not sleep well throughout the night and awakens with a non restorative sleep quality. She works 2 jobs in generally gets up at 4:00 a.m. 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 She has had previous bariatric surgery but more recently following a good weight loss has noted about a 30 lb increase in her weight. Outside records review: Records received by fax and reviewed from the referring office of Baldomero Dominguez MD [facility] include chart notes and laboratory testing results. REVIEW OF SYSTEMS: ROS See pertinent positive and/or negative in HPI PAST MEDICAL HISTORY: Past Medical History: Diagnosis Date ??? Arthritis ??? Asthma (HCC) ??? Hypertension ??? Irritable bowel syndrome ??? Morbid obesity (HCC) PAST SURGICAL HISTORY: Past Surgical History: Procedure [...] Outpatient Medications Medication Sig Dispense Refill ??? amoxicillin-clavulanate (Augmentin) 500-125 MG tablet TAKE 1 TABLET BY MOUTH EVERY 8 HOURS FOR 7 DAYS ??? cyclobenzaprine (Flexeril) 10 MG tablet Take 1 (one) tablet by mouth at bedtime Reasons: Fibromyalgia Syndrome 30 tablet 0 ??? fexofenadine (Delma) 180 MG tablet Take 1 (one) tablet by mouth once daily ??? lidocaine (Lidoderm) 5 % patch Apply 1 (one) patch to skin once daily Apply patch to most painful area and remove after 12 hours. May reapply a new patch 12 hours later. 30 patch 0 No current facility-administered medications for this visit. VITALS: Wt Readings from Last 3 Encounters: 09/02/23 103.9 kg (229 lb) Temp Readings from Last 3 Encounters: 09/02/23 98 ??F (36.7 ??C) BP Readings from Last 3 Encounters: 09/02/23 112/70 Pulse Readings from Last 3 Encounters: 09/02/23 81 Physical Exam MSK: Previously identified soft tissue tender points suggestive of allodynia with >11/18 positive fibromyalgia tender points in addition to left greater than right knee slight crepitus with passive range of motion noted. Physical Exam There is currently no information documented on the homunculus. Go to the Rheumatology activity andcomplete the homunculus joint exam. PSYCH: Alert. Appropriate. LABS: No results for input(s): WBC , RBC , HGB , HCT , MCV , MCHC , PLTCOUNT , NEUTPCT , LYMPHPCT , MONOCYTPCT , EOSINPCT , BASOPHILPCT , GRANSIMMPCT , NEUTABS , LYMPHABS , MONOCYTABS , EOSINABS , BASOABS , IMMGRANSABS in the last 10855 hours. No results for input(s): SODIUM , POTASSIUM , CHLORIDE , CO2 , BUN , CREATININE , GLUCOSE , CALCIUM , ALBUMIN , ALKPHOS , ALT , AST , TBIL , TPROT , EGFR in the last 23169 hours. No results for input(s): CRP in the last 90021 hours. No results for input(s): SEDRATE in the last 38982 hours. No results for input(s): RAQNT in the last 13900 hours. No results for input(s): CCPIGG in the last 41628 hours. No results for input(s): RACHELLE , ANATITER in the last 57890 hours. No results for input(s): DNAABDS in the last 47205 hours. No results for input(s): C3 in the last 68718 hours., No results for input(s): C4 in the last 57952 hours. No results for input(s): SMAB , SMRNPAB , SSAAB , SSBAB , XPS15BP in the last 35789 hours. No results for input(s): CK in the last 82642 hours. No results for input(s): COLORUA , CLARITYUA , SPECGRAVUA , PHUA , PROTEINUA , BLOODUA , LEUKOCYTEUA , NITRITEUA , GLUCOSEUA , KETONEUA , BILIRUBINUA , UROBILINUA , REDSUBUA , WBCUAAUTO , RBCUAAUTO , EPITHUAAUTO , BACTUAAUTO , YEASTUAAUTO , SPERMUAAUTO , CASTUAAUTO , CRYSUAAUTO , MUCUSUAAUTO in the last 06960 hours. No results for input(s): XUSJXLWSH3YL in the last 43228 hours. IMAGING: No image results found. ASSESSMENT/PLAN: ICD-10-CM 1. Fibromyalgia syndrome Active M79.7 2. Primary osteoarthritis involving multiple joints (lumbar spine and bilateral knees) M15.9 Fibromyalgia syndrome (Primary) Comments: Unable to tolerate low-dose duloxetine due to nausea. Will try low-dose cyclobenzaprine both for fibromyalgia pain and improvement in restorative sleep quality Orders: - cyclobenzaprine (Flexeril) 10 MG tablet; Take 1 (one) tablet by mouth at bedtime Reasons: Fibromyalgia Syndrome - lidocaine (Lidoderm) 5 % patch; Apply 1 (one) patch to skin once daily Apply patch to most painful area and remove after 12 hours. May reapply a new patch 12 hours later. Primary osteoarthritis involving multiple joints (lumbar spine and bilateral knees) Comments: Unable to tolerate duloxetine 30 mg q.d. as prescribed for both fibromyalgia and osteoarthritis related noninflammatory pain. Return in about 4 weeks (around 11/17/2023). Thank you for allowing me to participate in the rheumatologic care of your pleasant patient. Pleasedo not hesitate to contact me if I can provide any additional follow-up information that you may require. Alexx Bianchi D.O., [facility] Medical group Division of Rheumatology at [facility] The total time spent today in the visit with the patient for this initial encounter, including performing chart preparation, review of available data, and documentation, patient education, not related to any procedure or preventative visit services was 17 minutes. Portions of the record was created with voice recognition software.Variances in lamp shades supervisor may occur Alexx Bianchi DO 10/20/2023 3:31 PM documented in this encounter Plan of Treatment Not on file documented as of this encounter Visit Diagnoses Diagnosis Fibromyalgia syndrome- Primary Mylagia and myositis, unspecified Primary osteoarthritis involving multiple joints (lumbar spine and bilateral knees) documented in this encounter Care Teams Nature Photographer Relationship Specialty Start Date End Date Baldomero Dominguez MD [address] [place] [id number] PCP - General 12/29/19 documented as of this encounter
--- OUTSIDE RECORDS SUMMARY | 2024-07-11 07:03 | XMS_ITS | Encounter Summary ---
Author Organization [facility] Address [address] [place] [address]. [place], [place] [id number] [place] [address] Care Team Providers Care Database Tester Name Role Phone Baldomero Dominguez MD Primary Care Provider [phone] Cesar Gonzalez MD Unavailable Tram Dia MD Unavailable Reason for Visit * Reason Onset Date Comments Information 11/17/2016 medical records Encounter Details Date Type Department Care Team (Late st Contact Info) Description [facility]/17[facility]2016 [email or web address] AT [address] [address] Cesar Gonzalez MD [address] [place] [id number] Information (medical records) Social History Tobacco Use Types Packs/Day Years [...] encounter Progress Notes * Ashlie Pena - 11/17/2016 4:26 PM CDT 11/17/16 patient called and asked me to fax a release to [phone]. Her PCP is going to take care of her cardiac needs. 11/17/16 release faxed. documented in this encounter Plan of Treatment Not on file documented as of this encounter Visit Diagnoses Not on filedocumented in this encounter Care Teams Database Tester Relationship Specialty Start Date End Date Baldomero Dominguez MD [address] [place] [address] PCP - General FAMILY PRACTICE 01/24/16 Cesar Gonzalez MD [address] [place] [address] EP Welding Estimator CARDIOVASCULAR DISEASE 01/24/16 Tram Dia MD [address] [address] EP Welding Estimator CARDIOVASCULAR DISEASE 09/24/16 documented as of this encounter
--- OUTSIDE RECORDS SUMMARY | 2024-07-11 07:03 | XMS_ITS | Referral Summary ---
Author Organization [facility] Address [address] [place] [address] Care Team Providers Care Educational Speech Language Clinician Name Role Phone Baldomero Dominguez MD Primary Care Provider [phone] Source Comments [facility],non-owned Affiliates and Associated Physician Practices is amultiple site organization consisting of ambulatory clinics and hospital sitesin [place], [place], [place] and [place]. This disclosure is being madepursuant to the Care Everywhere program and may not contain all information available regarding this patient. Last updated 18.[facility] Allergies Active Allergy Reactions Criticality Noted Date [...] Comments Blood Pressure 112/70 09/02/2023 1:17 PM STATE WILDLIFE OFFICER Pulse 81 09/02/2023 1:17 PM STATE WILDLIFE OFFICER Temperature 36.7 ??C (98 ??F) 09/02/2023 1:17 PM STATE WILDLIFE OFFICER Respiratory Rate 16 09/02/2023 1:17 PM STATE WILDLIFE OFFICER Oxygen Saturation 100% 09/02/2023 1:17 PM STATE WILDLIFE OFFICER Inhaled Oxygen Concentration - - Weight 103.9 kg (229 lb) 09/02/2023 1:17 PM STATE WILDLIFE OFFICER Height 167.6 cm (5' 6 ) 09/02/2023 1:17 PM STATE WILDLIFE OFFICER Body Mass Index 36.96 09/02/2023 1:17 PM STATE WILDLIFE OFFICER Plan of Treatment Not on file Procedures Procedure Name Priority Date/Time Associated Diagnosis Comments MAMMOGRAM Routine 09/14/2019 from Last 3 Months or Most Recently Relevant to Health Maintenance Results * MAMMOGRAM (09/14/2019) Anatomical Region Laterality Modality Other Historical Provider MD SCANNING ONLY from Last 3 Months or Most Recently Relevant to Health Maintenance Care Teams Educational Speech Language Clinician Relationship Specialty Start Date End Date Baldomero Dominguez MD [address] [facility] [address] [place] [address] PCP - General 12/29/19
--- OUTSIDE RECORDS SUMMARY | 2024-07-11 07:03 | XMS_ITS | Encounter Summary ---
Author Organization [facility] Address [address] [place] [address]. [place], [place] [id number] [place] [address] Care Team Providers Care Solar Electric Practitioner Name Role Phone Baldomero Dominguez MD Primary Care Provider [phone] Tram Dia MD Unavailable Reason for Visit * Reason Onset Date Comments Appointment Request 10/22/2017 Encounter Details Date Type Department Care Team (Late st Contact Info) Description 10/22/2017 Telephone [facility] at [facility], [facility] [address] [place] [address] Tram Dia MD [facility]. [facility] [address] [place] [address] Appointment Request Social History Tobacco Use Types Packs/Day Years [...] as of this encounter Progress Notes * Reyna Lowery - 10/22/2017 10:46 AM CDT RECEIVED 2 VOICEMAILS FROM PATIENT ASKING TO SCHEDULE AN APPT WITH PHYSICIAN OTHER THAN DR. GABRIEL BARONE. CALLED PATIENT BACK, NO ANSWER, NO VOICEMAIL SET UP ON PHONE. documented in this encounter Plan of Treatment Not on file documented as of this encounter Visit Diagnoses Not on filedocumented in this encounter Care Teams Solar Electric Practitioner Relationship Specialty Start Date End Date Baldomero Dominguez MD [address] [facility] [address] [place] [address] PCP - General FAMILY PRACTICE 01/24/16 Tram Dia MD [place] [id number] [place] [address] EP Sensor Technician CARDIOVASCULAR DISEASE 09/24/16 documented as of this encounter
--- OUTSIDE RECORDS SUMMARY | 2024-07-11 07:03 | XMS_ITS | Encounter Summary ---
Author Organization [facility] Address [address] [place] [address] Care Team Providers Care Manager Hospitality Name Role Phone Baldomero Dominguez MD Primary Care Provider [phone] Reason for Visit * Reason Onset Date Comments Medication Problem 09/21/2023 Encounter Details Date Type Department Care Team (Late st Contact Info) Description 09/21/2023 Telephone [facility] Medical [facility] - Rheumatology [address] [facility] [facility] [address] [place] [address] Alexx Bianchi DO [address] [facility] [address] [place] [address] Medication Problem Social History Tobacco Use Types Packs/Day Years Used Date Smoking Tobacco: Never Assessed Sex and Gender Information Value Date Recorded Sex Assigned at Not on file Gender Identity Not on file Sexual Orientation Not on file documented as of this encounter Miscellaneous Notes * Telephone Encounter - Alexx Bianchi DO - 09/21/2023 11:57 AM CST I would suggest that follow-up appointment be rescheduled and not any earlier than 3-4 weeks after she is started low-dose duloxetine as prescribed at a 30 mg dose to be taken at bedtime to help withher fibromyalgia and low back pain symptoms. No additional medication prescriptions would be indicate this point since response to duloxetine has not been able to be determined. Y EQUIPMENT SPECIALIST * Telephone Encounter - Sameer Lazar - 09/21/2023 11:02 AM CST Pt called the office to report that she was still waiting to receive her Cymbalta prescription fromDr. Bianchi so she could take it to her pharmacy. Pt was told that her prescription had been electronically submitted on 09/02/23 to her pharmacy and pt was recommended to call her pharmacy regarding that refill as they likely returned it to stock at this point. Pt stated understanding and that she would do so. Pt also noted she is still having ongoing back pain and inquired if Dr. Bianchi could prescribe her any pain patches or other medication to help with ongoing chronic back pain that pt attributed to her fibromyalgia. Pt was told that request would also be submitted to Dr. Bianchi. Pt confirmed that [phone] is the best number to reach them back at and that the best pharmacy for them is the [id number] - [address] [facility] [id number] [facility] [address] [facility] [phone] . Y EQUIPMENT SPECIALIST documented in this encounter Plan of Treatment Not on file documented as of this encounter Visit Diagnoses Not on filedocumented in this encounter Care Teams Manager Hospitality Relationship Specialty Start Date End Date Baldomero Dominguez MD [address] [place] [address] [address] [place] [address] PCP - General 12/29/19 documented as of this encounter
--- OUTSIDE RECORDS SUMMARY | 2024-07-11 07:03 | XMS_ITS | Encounter Summary ---
Author Organization [facility] Address [address] [place] [address]. [place], [place] [address] [place] [address] Care Team Providers Care Salt Cutter Name Role Phone Baldomero Dominguez MD Primary Care Provider [phone] Lisa, Cesar LIRA Unavailable Tram Dia MD Unavailable Reason for Visit * Reason Comments Supraventricular Tachycardia per Lisa Encounter Details Date Type Department Care Team (Latest Contact Info) Description 10/16/2016 2:30 PM CDT Office Visit [facility] AT [address] [address] Tram Dia MD [address] [address] Supraventricular Tachycardia (per Lisa) Social History Tobacco Use Types Packs/Day Years [...] Mass Index 44.22 10/16/2016 1:58 PM CDT documented in this encounter Patient Instructions * Patient Instructions* Reyna Lowery - 10/16/2016 2:30 PM CDT Images from the original note were not included. Index Lao Related??topics Paroxysmal Supraventricular Tachycardia (Fast Heartbeat) REBOLLEDO POINTS ?? Paroxysmal supraventricular tachycardia is a very fast heartbeat that comes and goes. ?? You may not need treatment if the attacks are rare, don???t last long, and don???t cause serioussymptoms. ?? Treatment may include medicine or procedures to shock the heart, or to block abnormal electricalpathways, so that the heart beats normally. What is paroxysmal supraventricular tachycardia? Paroxysmal supraventricular tachycardia (PSVT) is a very fast heartbeat that comes and goes. What is the cause? An electrical signal in your heart starts each heartbeat, causing the heart muscle to squeeze (contract). Normally, this signal starts in the upper right chamber of the heart (the right atrium) at a place called the sinus node. The signal then follows normal pathways to the upper left atrium and tothe lower chambers of the heart (the ventricles). Sometimes the electrical signals don???t follow the normal pathways. This may make the heart beat very fast. There are several types of PSVT. The most common type happens to adults in their 20s and 30s. It???s more common in women than men. It may happen more often during . People with this type ofPSVT almost always have an extra electrical pathway connecting the upper and lower chambers. When the electrical signal goes down both pathways at the same time, the heart beats normally. If the electrical signal goes down one pathway faster than the other, it can then go back up the extra pathway,making the heart beat very fast. Other causes of PSVT include heart disease, heart infections, health problems such as lung disease or an overactive thyroid gland, alcohol or drug abuse, caffeine, or smoking. What are the symptoms? Symptoms of PSVT may be mild or severe. Symptoms may include: ?? Feeling like the heart is beating too fast or too hard or skipping beats or fluttering ?? Feeling weak, dizzy, or lightheaded ?? Fainting ?? Shortness of breath ?? Chest tightness How is it diagnosed? Your healthcare provider will ask about your symptoms and medical history and examine you. Tests may include: ?? An ECG (also called an EKG), which measures and records your heartbeat. You may have an ECG while you are resting or while you exercise on a treadmill. You may also be asked to wear a small portable ECG monitor for a few days or sometimes a couple of weeks. ?? Blood tests ?? Chest X-ray ?? An electrophysiologic study (EPS), which uses tiny wires put into your heart through your veins to look at the electrical pathways in your heart How is it treated? The goal of treatment is to help the heart keep a normal rhythm. Your treatment depends on the cause of the PSVT, how often you have symptoms, and the severity of your symptoms. You may not need treatment if the attacks are rare, don???t last long, and don???t cause serious symptoms. For most people, PSVT starts suddenly and lasts just a short time. The heart goes back to a normal rhythm on its own. If you keep having spells of PSVT, treatment may help keep you from havingso many spells. Your healthcare provider can show you ways to stop a spell of PSVT. Other possible treatments are: ?? Medicine to control the heart rate ?? Electrical cardioversion: First, you will be given medicine called anesthesia to keep you from feeling pain during the procedure. Then your chest will be given an electrical shock. The electrical shock should make your heart start beating normally again. You may need medicine to keep your heart rhythm normal after this procedure. ?? Ablation: Ablation is a procedure that uses a small tube called a catheter to deliver energy to the inside of the heart. The energy (usually radio waves) scars small areas of heart tissue. The scars block abnormal electrical pathways and help you have a normal heart rhythm. With some types of ablation treatment, you will also need a pacemaker. A pacemaker is an electronic device put under the skin of your chest to help control the heartbeat. How can I take care of myself? Follow the full course of treatment prescribed by your healthcare provider. Ask your provider: ?? How and when you will get your test results ?? How long it will take to recover ?? If there are activities you should avoid and when you can return to your normal activities ?? How to take care of yourself at home ?? What symptoms or problems you should watch for and what to do if you have them Make sure you know when you should come back for a checkup. Keep all appointments for provider visits or tests. How can I help prevent PSVT? The best prevention is to have a heart-healthy lifestyle. ?? Keep a healthy weight. ?? Eat a healthy diet. ?? Stay fit with the right kind of exercise for you. ?? Decrease stress. ?? Don???t smoke. ?? Limit your use of alcohol. If you have heart disease or high blood pressure, follow your healthcare provider's instructions for treatment. Developed by [employer]. Adult Advisor 2017.1 published by [employer]. Last modified: 2016-03-20 Last reviewed: 2014-12-10 This content is reviewed periodically and is subject to change as new health information becomes available. The information is intended to inform and educate and is not a replacement for medical evaluation, advice, diagnosis or treatment by a healthcare professional. References Adult Advisor 2017.1 Index Copyright ?? 2017 [employer], a division of [employer]. All rights reserved. documented in this encounter Progress Notes * Tram Dia MD - 10/16/2016 2:30 PM CDT Chief complaint: Palpitations. This is a referral from Dr. Gonzalez Assessment and plan: In summary, Rowena Quesada is a 51-year-old female here today for evaluation regarding palpitations. We discussed the likely etiologies of these palpitations, including AV node reentry tachycardia,atrial tachycardia, or AV reentry tachycardia over a [concealed] bypass tract. We discussed that there are multiple methods for managing these palpitations, including medical therapy or catheter ablation. We discussed that catheter ablation has a cure rate of 95% and carries risks of 1-2% including, but not limited to, bleeding, cardiac perforation, deep venous thrombosis, or complete heart blockrequiring a permanent pacemaker. In addition, in the case a left-sided procedure is needed there isthe additional risk of stroke or myocardial infarction. After a prolonged discussion, Rowena Quesada would like to consider her options. She is willing to add low dose toprol XL to her diltiazem. She does not want to have a 30 day monitor. We have not scheduled another visit, but will be in contact with the patient to scheule the procedure in the coming weeks. We have encouraged the patient to call with any prolonged recurrent episodes. Thank you for this interesting consultation. History of present illness: I had the pleasure of seeing your patient,Rowena Quesada, for evaluation of palpitations. As you are aware, she is a 51-year-old female with a history of obesity, Crohns and palpitations. Episodes typically occur minutes to hours and are occurring more frequently multiple times in a month. She has aborted some with valsalva. She has at times needed to present to ED/hospital for adenosine administration. The onset is typically abrupt and the offset is described as abrupt. These episodes have continued despite treatment with diltiazem. She denies chest pain, shortness of breath, syncope or presyncope. She denies PND, orthopnea, LE edema, cough, hemoptysis. Current Outpatient Prescriptions Medication Sig Dispense Refill ??? metoprolol succinate 25 MG 24 hr tablet Take 1 tablet (25 mg total) by mouth daily. 30 tablet 5 ??? diltiazem 240 MG 24 hr capsule Take 1 capsule (240 mg total) by mouth 2 (two) times daily. ReasonsPrior Authorization for Cartia 240mg has been APPROVED from 02-12-16 through 02-11-2017 Prior Authorization for Cartia 240mg has been APPROVED from 02-12-16 through 02-11-2017 ??? Ferrous Sulfate 325 (65 FE) MG Tab EC Take 1 tablet (325 mg total) by mouth daily. No current facility-administered medications for this visit. No Known Allergies has a past medical history of Crohn disease and Supraventricular tachycardia. Past Surgical History: Procedure Laterality Date ??? CHOLECYSTECTOMY 2016 Review of Systems Constitutional: Negative for malaise/fatigue and weight loss. HENT: Negative for hearing loss. Eyes: Negative for blurred vision and double vision. Respiratory: Negative for cough, hemoptysis and wheezing. Cardiovascular: Negative for chest pain and palpitations. Gastrointestinal: Negative for blood in stool and melena. Genitourinary: Negative for dysuria. Musculoskeletal: Negative for joint pain and myalgias. Skin: Negative for rash. Neurological: Negative for tingling, sensory change, focal weakness and headaches. Endo/Heme/Allergies: Negative for polydipsia. Does not bruise/bleed easily. Filed Vitals: 10/16/16 1358 BP: 128/72 Pulse: 90 SpO2: 98% Weight: 124.3 kg (274 lb) Height: 5' 6 (1.676 m) Physical Exam Constitutional: She is oriented to person, place, and time. She appears well- developed and well-nourished. HENT: Head: Normocephalic and atraumatic. Mouth/Throat: No oropharyngeal exudate. Eyes: Pupils are equal, round, and reactive to light. No scleral icterus. Cardiovascular: Normal rate, regular rhythm, normal heart sounds and intact distal pulses. Exam reveals no gallop and no friction rub. No murmur heard. Pulmonary/Chest: Effort normal and breath sounds normal. No respiratory distress. She has no wheezes. She has no rales. Abdominal: Soft. Bowel sounds are normal. She exhibits no distension. There is no rebound. Musculoskeletal: Normal range of motion. She exhibits no edema, tenderness or deformity. Lymphadenopathy: She has no cervical adenopathy. Neurological: She is alert and oriented to person, place, and time. Skin: Skin is warm and dry. Psychiatric: She has a normal mood and affect. Her behavior is normal. Judgment and thought contentnormal. Vitals reviewed. Data reviewed: ECG reviewed in the office today shows normal sinus rhythm, normal intervals, no acute st/t changes, no signs consistant with Brugada pattern, epsilon waves, or preexcitation. Echo: Normal per 2004. No significant valvular lesions. documented in this encounter Plan of Treatment Not on file documented as of this encounter Procedures Procedure Name Priority Date/Time Associated Diagnosis Comments ELECTROCARDIOGRAM (NON MIDMA RK ACQUIRED) Routine 10/16/2016 SVT (supraventricular tachycardia) documented in this encounter Results * ELECTROCARDIOGRAM (10/16/2016) Tram Dia MD PROCEDURES-ORDERABLE NO CHARGE F inal Result documented in this encounter Visit Diagnoses Diagnosis SVT (supraventricular tachycardia) ([facility]/HCC HHS/HCC)- Primary Other specified cardiac dysrhythmias documented in this encounter Care Teams Salt Cutter Relationship Specialty Start Date End Date Baldomero Dominguez MD [address] [place] [address] PCP - General FAMILY PRACTICE 01/24/16 Cesar Gonzalez MD [address] [place] [address] EP District Loss Prevention Manager CARDIOVASCULAR DISEASE 01/24/16 Tram Dia MD [facility]. [address] [address] EP District Loss Prevention Manager CARDIOVASCULAR DISEASE 09/24/16 documented as of this encounter
--- OUTSIDE RECORDS SUMMARY | 2024-07-11 07:04 | XMS_ITS | Encounter Summary ---
Author Organization [facility] Address [address] [place] [address]. [place], [place] [address] [place] [address] Care Team Providers Care Licensed Prosthetist Name Role Phone Baldomero Dominguez MD Primary Care Provider [phone] Cesar Gonzalez MD Unavailable Reason for Visit * Reason Onset Date Comments Information 02/05/2016 FMLA Encounter Details Date Type Department Care Team (Late st Contact Info) Description 02/05/2016 Telephone [facility] AT [address] [address] Cesar Gonzalez MD [address] [place] [address] Information (FMLA) Social History Tobacco Use Types Packs/Day Years Used Date Smoking Tobacco: Never Alcohol Use Standard Drinks/Week Comments Yes 0 (1 standard drink = 0.6 oz pur e alcohol) Drinks occasionally Comments Unknown Sex and Gender Information Value Date Recorded Sex Assigned at Not on file Legal Sex Female 11:35 PM CDT Gender Identity Not on file Sexual Orientation Not on file Occupation Industry Job Start Date Job End Date Works at [employer] Not on file Not on file N ot on file documented as of this encounter Progress Notes * Ashlie Pena - 02/05/2016 3:59 PM CDT 02/05/16 RECEIVED [facility] PAPER WORK AND PUT IT ON ALICIA'S DESK. JCP documented in this encounter Plan of Treatment Not on file documented as of this encounter Visit Diagnoses Not on filedocumented in this encounter Care Teams Licensed Prosthetist Relationship Specialty Start Date End Date Baldomero Dominguez MD [address] [place] [address] PCP - General FAMILY PRACTICE 01/24/16 Cesar Gonzalez MD [address] [place] [address] EP Transplant Registered Nurse CARDIOVASCULAR DISEASE 01/24/16 documented as of this encounter
--- OUTSIDE RECORDS SUMMARY | 2024-07-11 07:04 | XMS_ITS | Encounter Summary ---
Author Organization [facility] Address [address] [place] [address]. [place], [place] [address] [place] [address] Care Team Providers Care Honing Machine Operator Production Name Role Phone Unavailable Primary Care Provider Unavailabl e Encounter Details Date Type Department Care Team (Late st Contact Info) Description 03/01/2015 Abstract [facility] AT [address] [address] , Jayce Pinon MD Social History Tobacco Use Types Packs/Day Years Used Date Smoking Tobacco: Never Assessed Comments Unknown Sex and Gender Information Value Date Recorded Sex Assigned at Not on file Legal Sex Female 11:35 PM CDT Gender Identity Not on file Sexual Orientation Not on file documented as of this encounter Plan of Treatment Not on file documented as of this encounter Visit Diagnoses Not on filedocumented in this encounter
--- OUTSIDE RECORDS SUMMARY | 2024-07-11 07:04 | XMS_ITS | Encounter Summary ---
Author Organization [facility] Address [address] [place] [address]. [place], [place] [address] [place] [address] Care Team Providers Care Water Hydrant Installer Name Role Phone Baldomero Dominguez MD Primary Care Provider [phone] Cesar Gonzalez MD Unavailable Tram Dia MD Unavailable Encounter Details Date Type Department Care Team (Late st Contact Info) Description 02/28/2014 Abstract [place] [address] Cesar Gonzalez MD [address] [place] [address] Social History Tobacco Use Types Packs/Day Years Used Date Smoking Tobacco: Never Assessed Comments Unknown Sex and Gender Information Value Date Recorded Sex Assigned at Not on file Legal Sex Female 11:35 PM CDT Gender Identity Not on file Sexual Orientation Not on file documented as of this encounter Plan of Treatment Not on file documented as of this encounter Visit Diagnoses Diagnosis Paroxysmal supraventricular tachycardia (CMS/HCC [facility]/HCC) Paroxysmal supraventricular tachycardia documented in this encounter Care Teams Water Hydrant Installer Relationship Specialty Start Date End Date Baldomero Dominguez MD [address] [address] PCP - General FAMILY PRACTICE 01/24/16 Cesar Gonzalez MD [address] [place] [address] EP Marine Railway Operator CARDIOVASCULAR DISEASE 01/24/16 Tram Dia MD [facility]. [place] [address] [place] [address] EP Marine Railway Operator CARDIOVASCULAR DISEASE 09/24/16 documented as of this encounter
--- OUTSIDE RECORDS SUMMARY | 2024-07-11 07:04 | XMS_ITS | Encounter Summary ---
Author Organization [facility] Address [facility] [facility] [place] [address] [place] [address] Care Team Providers Care Single Needle Tufting Machine Operator Name Role Phone Baldomero Dominguez MD Primary Care Provider [phone] Cesar Gonzalez MD Unavailable Encounter Details Date Type Department Care Team (Late st Contact Info) Description 02/07/2016 Orders Only [facility] [place] [address] [place] [address] Sabra Sousa, SCHOOL BUS MONITOR Social History Tobacco Use Types Packs/Day Years [...] Start Date Job End Date Works at [employer] Not on file Not on file N ot on file documented as of this encounter Plan of Treatment Not on file documented as of this encounter Visit Diagnoses Not on filedocumented in this encounter Care Teams Single Needle Tufting Machine Operator Relationship Specialty Start Date End Date Baldomero Dominguez MD [address] [facility] [address] [place] [address] PCP - General FAMILY PRACTICE 01/24/16 Cesar Gonzalez MD [address] [place] [address] EP Reactor Operator CARDIOVASCULAR DISEASE 01/24/16 documented as of this encounter
--- OUTSIDE RECORDS SUMMARY | 2024-07-11 07:04 | XMS_ITS | Encounter Summary ---
Author Organization [facility] Address [facility]. [place], [place] [address] [place] [address] Care Team Providers Care Tobacco Drying Machine Operator Name Role Phone Baldomero Dominguez MD Primary Care Provider [phone] Cesar Gonzalez MD Unavailable Encounter Details Date Type Department Care Team (Late st Contact Info) Description 02/28/2014 Abstract [facility] [place] [address] [place] [address] , Jayce Pinon MD Social History Tobacco [...] on filedocumented in this encounter Care Teams Tobacco Drying Machine Operator Relationship Specialty Start Date End Date Baldomero Dominguez MD [address] [facility] 3 [place] [address] PCP - General FAMILY PRACTICE 01/24/16 Cesar Gonzalez MD [address] [place] [address] EP Pickle Solution Maker CARDIOVASCULAR DISEASE 01/24/16 documented as of this encounter
--- OUTSIDE RECORDS SUMMARY | 2024-07-11 07:04 | XMS_ITS | Encounter Summary ---
Author Organization [facility] Address [address] [place] [address]. [place], [place] [address] [place] [address] Care Team Providers Care Leather Skinner Name Role Phone Unavailable Primary Care Provider Unavailabl e Encounter Details Date Type Department Care Team (Late st Contact Info) Description 02/01/2014 Abstract [facility] AT [address] [address] , Jayce Pinon MD Social History Tobacco [...]
--- OUTSIDE RECORDS SUMMARY | 2024-07-11 07:04 | XMS_ITS | Encounter Summary ---
Author Organization [facility] Address [address] [place] [address]. [place], [place] [address] [place] [address] Care Team Providers Care Trust [employer] Estates Paralegal Name Role Phone Baldomero Dominguez MD Primary Care Provider [phone] Cesar Gonzalez MD Unavailable Tram Dia MD Unavailable Reason for Visit * Reason Onset Date Comments Palpitations 10/14/2016 Encounter Details Date Type Department Care Team (Late st Contact Info) Description 10/14/2016 Telephone [facility] AT [address] [address] Ninoska [place]oades, [place] [address] Palpitations Social History Tobacco Use Types Packs/Day Years [...] as of this encounter Progress Notes * Ninoska Rhoades RN - 10/14/2016 11:06 AM CDT Spoke to patient and informed her of the above per Deloris. Patient agreeable to seeing Dr. Dia on Wednesday (prefers appointment time between 2-3). But refuses HM or Event Monitor. She stated that she prefers to see Dr. Dia instead. * Ninoska Rhoades RN - 10/14/2016 11:04 AM CDT Informed Deloris of the above. Per Deloris, Patient can be seen by Dr. Dia in Clinic on Wednesday. Recommend 48hr HM or 30 day Event Monitor. * Ninoska Rhoades RN - 10/14/2016 9:55 AM CDT Patient called to report that around 0300 this morning, she developed racing heart, dizziness, fatigue, and chest heaviness. She stated that she felt her puls and it She stated that she doesn't know how long it lasted. But she requesting to be seen today. I reminded her of our conversation last week about Dr. Gonzalez referring her to Dr. Dia for her SVT's and her not wanting to see Dr. Dia. I informed her that Dr. Dia is in procedures today. And unsure of Dr. Gonzalez's schedule. Message to Deloris, KIERSTEN documented in this encounter Plan of Treatment Not on file documented as of this encounter Visit Diagnoses Not on filedocumented in this encounter Care Teams Trust And Estates Paralegal Relationship Specialty Start Date End Date Baldomero Dominguez MD [address] [place] [address] PCP - General FAMILY PRACTICE 01/24/16 Cesar Gonzalez MD [address] [place] [address] EP Field Services Analyst CARDIOVASCULAR DISEASE 01/24/16 Tram Dia MD [facility]. [facility] [address] [place] [address] EP Field Services Analyst CARDIOVASCULAR DISEASE 09/24/16 documented as of this encounter
--- OUTSIDE RECORDS SUMMARY | 2024-07-11 07:04 | XMS_ITS | Encounter Summary ---
Author Organization [facility] Address [address] [place] [address]. [place], [place] [address] [place] [address] Care Team Providers Care Roving Hauler Name Role Phone Baldomero Dominguez MD Primary Care Provider [phone] Cesar Gonzalez MD Unavailable Reason for Visit * Reason Comments Follow Up CHECK UP Encounter Details Date Type Department Care Team (Latest Contact Info) Description 02/06/2016 4:15 PM CDT Office Visit [facility] AT [address] 988340 Cesar Gonzalez MD [address] [place] [address] Follow Up (CHECK UP) Social History Tobacco Use Types Packs/Day Years [...] Start Date Job End Date Works at [employer] Not on file Not on file N ot on file documented as of this encounter Last Filed Vital Signs Vital Sign Reading Time Taken Comments Blood Pressure 142/80 02/06/2016 3:26 PM CDT Pulse 96 02/06/2016 3:26 PM CDT Temperature - - Respiratory Rate - - Oxygen Saturation 98% 02/06/2016 3:26 PM CDT Inhaled Oxygen Concentration - - Weight 125.6 kg (277 lb) 02/06/2016 3:26 PM CDT Height 167.6 cm (5' 6 ) 02/06/2016 3:26 PM CDT Body Mass Index 44.71 02/06/2016 3:26 PM CDT documented in this encounter Progress Notes * Cesar Gonzalez MD - 02/06/2016 3:58 PM CDT Chief Complaint: Follow Up - CHECK UP Recommendations/Plan: History of Present Illness: Medications: Current Outpatient Prescriptions: ??? diltiazem 24 hr (CARDIZEM CD) 240 MG capsule, Take 1 capsule by mouth 2 (two) times daily., Disp: , Rfl: ??? APRISO 0.375 G CAPSULE SR 24 HR, Take 4 tablets by mouth daily., Disp: , Rfl: 11 No Known Allergies Past Medical History Diagnosis Date ??? Crohn disease ??? Supraventricular tachycardia Past Surgical History Procedure Laterality Date ??? Cholecystectomy 2016 History Social History ??? Marital status: Single Spouse name: N/A ??? Number of children: 3 ??? Years of education: N/A Occupational History ??? Works at [employer] Social History Main Topics ??? Smoking status: Never Smoker ??? Smokeless tobacco: Never Used ??? Alcohol use: Yes Comment: Drinks occasionally ??? Drug use: No ??? Sexual activity: Not on file Comment: UNKNOWN Other Topics Concern ??? Exercise Yes Walking ??? Special Diet Yes Tries Social History Narrative Family History Problem Relation Age of Onset ??? Hypertension Maternal Grandmother Family Status Relation Status ??? Maternal Grandmother Review of Systems Constitutional: Negative. HENT: Negative. Eyes: Negative. Respiratory: Negative. Cardiovascular: Positive for palpitations. Gastrointestinal: Negative. Genitourinary: Negative. Musculoskeletal: Negative. Skin: Negative. Neurological: Negative. Endo/Heme/Allergies: Negative. Psychiatric/Behavioral: Negative. Filed Vitals: 02/06/16 1526 BP: 142/80 Pulse: 96 SpO2: 98% Weight: 125.6 kg (277 lb) Height: 5' 6 (1.676 m) Physical Exam Constitutional: She is oriented to person, place, and time. She appears well- developed and well-nourished. No distress. HENT: Head: Normocephalic and atraumatic. Nose: No mucosal edema. Mouth/Throat: Oropharynx is clear and moist and mucous membranes are normal. No oropharyngeal exudate. Eyes: EOM are normal. Pupils are equal, round, and reactive to light. Neck: Neck supple. No JVD present. Carotid bruit is not present. Cardiovascular: Normal rate, regular rhythm, S1 normal, S2 normal, normal heart sounds and intact distal pulses. No extrasystoles are present. Exam reveals no gallop. No murmur heard. Pulmonary/Chest: Effort normal and breath sounds normal. No respiratory distress. Abdominal: Soft. She exhibits no mass. There is no hepatosplenomegaly. There is no tenderness. Musculoskeletal: Normal range of motion. She exhibits no deformity. Neurological: She is alert and oriented to person, place, and time. Skin: Skin is warm and dry. No erythema. Psychiatric: She has a normal mood and affect. Her behavior is normal. Thought content normal. No results found for this visit on 02/06/16. Diagnoses/Impression: 1. PSVT (paroxysmal supraventricular tachycardia) * Cesar Gonzalez MD - 02/06/2016 3:57 PM CDT CHIEF COMPLAINT: Ms. Quesada comes in for a scheduled visit. 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 She is currently being treated with Diltiazem 240 mgtwice a day and is feeling fine. She had an episode where she had an upper respiratory infection and was prescribed some bronchodilator inhalers and at that time she was having a lot of episodes of palpitations. Ever since the inhaler was started by her primary care physician the symptoms have resolved and she is starting to feel better and is continuing on her Diltiazem. She has occasional episodes which last for about 30-40 minutes and tend to resolve by themselves. RECOMMENDATIONS: Once again we discussed the option of ablation. She is still willing to consider only the medical treatment and does not wish to go through with the ablation at this time. She will stay on her current dose of Diltiazem and return for followup in 6 months. documented in this encounter Plan of Treatment Not on file documented as of this encounter Visit Diagnoses Diagnosis PSVT (paroxysmal supraventricular tachycardia) ([facility]/HCC [facility]/HCC)- Primary Paroxysmal supraventricular tachycardia documented in this encounter Care Teams Roving Hauler Relationship Specialty Start Date End Date Baldomero Dominguez MD [address] [place] [address] PCP - General FAMILY PRACTICE 01/24/16 Cesar Gonzalez MD [address] [place] [address] EP Corporate Financial Analyst CARDIOVASCULAR DISEASE 01/24/16 documented as of this encounter
--- OUTSIDE RECORDS SUMMARY | 2024-07-11 07:04 | XMS_ITS | Encounter Summary ---
Author Organization [facility] Address [address] [place] [address]. [place], [place] [address] [place] [address] Care Team Providers Care Ground Source Heat Pump Technician Name Role Phone Unavailable Primary Care Provider Unavailabl e Encounter Details Date Type Department Care Team (Late st Contact Info) Description 07/10/2015 [facility] AT [address] [place] [address] , Jayce Pinon MD Social History Tobacco [...]
--- OUTSIDE RECORDS SUMMARY | 2024-07-11 07:04 | XMS_ITS | Encounter Summary ---
Author Organization [facility] Address [address] [place] [address]. [place], [place] [address] [place] [address] Care Team Providers Care Deputy Controller Name Role Phone Unavailable Primary Care Provider Unavailabl e Encounter Details Date Type Department Care Team (Late st Contact Info) Description 07/10/2015 Abstract [facility] AT [address] [address] , Jayce Pinon MD Social History Tobacco [...]
--- OUTSIDE RECORDS SUMMARY | 2024-07-11 07:04 | XMS_ITS | Encounter Summary ---
Author Organization [facility] Address [address] [place] [address]. [place], [place] [address] [place] [address] Care Team Providers Care Lead Massage Therapist Name Role Phone Baldomero Dominguez MD Primary Care Provider [phone] Cesar Gonzalez MD Unavailable Reason for Visit * Reason Onset Date Comments Information 09/15/2016 FMLA Encounter Details Date Type Department Care Team (Late st Contact Info) Description 09/15/2016 Telephone [facility] AT [address] [address] Cesar Gonzalez MD [address] [place] [address] Information (FMLA) Social History Tobacco Use [...] Start Date Job End Date Works at [employer] Not on file Not on file N ot on file documented as of this encounter Progress Notes * Ashlie Pena - 09/15/2016 9:51 AM CST 09/15/16 I put a [employer] FMLA form on Deloris's desk. T PHYSIOLOGY TEACHER documented in this encounter Plan of Treatment Not on file documented as of this encounter Visit Diagnoses Not on filedocumented in this encounter Care Teams Lead Massage Therapist Relationship Specialty Start Date End Date Baldomero Dominguez MD [address] [place] [address] PCP - General FAMILY PRACTICE 01/24/16 Cesar Gonzalez MD [address] [place] [address] EP Nurse Researcher CARDIOVASCULAR DISEASE 01/24/16 documented as of this encounter
--- OUTSIDE RECORDS SUMMARY | 2024-07-11 07:04 | XMS_ITS | Encounter Summary ---
Author Organization [facility] Address Formerly [facility], [id number] [facility]. [place], [place] [address] [place] [address] Care Team Providers Care Co Director Name Role Phone Baldomero Dominguez MD Primary Care Provider [phone] Cesar Gonzalez MD Unavailable Encounter Details Date Type Department Care Team (Late st Contact Info) Description 11/18/2011 [facility] [address] [place] [address] , Jayce Pinon MD Social History Tobacco [...] on filedocumented in this encounter Care Teams Co Director Relationship Specialty Start Date End Date Baldomero Dominguez MD [address] [facility] 3 [place] [address] PCP - General FAMILY PRACTICE 01/24/16 Cesar Gonzalez MD [address] [place] [address] EP Machine Package Sealer CARDIOVASCULAR DISEASE 01/24/16 documented as of this encounter
--- OUTSIDE RECORDS SUMMARY | 2024-07-11 07:04 | XMS_ITS | Encounter Summary ---
Author Organization [facility] Address [address] [place] [address]. [place], [place] [address] [place] [address] Care Team Providers Care Wrecking Crane Engine Operator Name Role Phone Unavailable Primary Care Provider Unavailabl e Encounter Details Date Type Department Care Team (Late st Contact Info) Description 03/01/2015 [facility] AT [address] [place] [address] , Jayce Pinon MD Social History Tobacco [...]
--- OUTSIDE RECORDS SUMMARY | 2024-07-11 07:04 | XMS_ITS | Encounter Summary ---
Author Organization [facility] Address [facility]. [place], [place] [address] [place] [address] Care Team Providers Care Bituminous Paving Machine Operator Name Role Phone Baldomero Dominguez MD Primary Care Provider [phone] Cesar Gonzalez MD Unavailable Encounter Details Date Type Department Care Team (Late st Contact Info) Description 06/03/2011 [facility] AT [address] [place] [address] , Jayce Pinon MD Social History Tobacco [...] on filedocumented in this encounter Care Teams Bituminous Paving Machine Operator Relationship Specialty Start Date End Date Baldomero Dominguez MD [address] [facility] 3 [place] [address] PCP - General FAMILY PRACTICE 01/24/16 Cesar Gonzalez MD [address] [place] [address] EP Twenty One Dealer CARDIOVASCULAR DISEASE 01/24/16 documented as of this encounter
--- OUTSIDE RECORDS SUMMARY | 2024-07-11 07:04 | XMS_ITS | Encounter Summary ---
Author Organization [facility] Address [address] [place] [address]. [place], [place] [address] [place] [address] Care Team Providers Care Hydroelectric Station Chief Name Role Phone Baldomero Dominguez MD Primary Care Provider [phone] Cesar Gonzalez MD Unavailable Reason for Visit * Reason Onset Date Comments Information 09/09/2016 Patient call re: FMLA Encounter Details Date Type Department Care Team (Late st Contact Info) Description 09/09/2016 Telephone [facility] AT [place] [address]25760 Cesar Gonzalez MD [address] [place] [address] Information (Patient call re: [facility]) Social History Tobacco Use Types Packs/Day Years [...] Start Date Job End Date Works at [employer] Not on file Not on file N ot on file documented as of this encounter Progress Notes * Ashlie Pena - 09/09/2016 9:36 AM CST 09/09/16 Patient called and asked me to fax release to [phone] (her work fax no.) She will fax back with [facility] papers to be completed. L FINISHER documented in this encounter Plan of Treatment Not on file documented as of this encounter Visit Diagnoses Not on filedocumented in this encounter Care Teams Hydroelectric Station Chief Relationship Specialty Start Date End Date Baldomero Dominguez MD [address] [place] [address] PCP - General FAMILY PRACTICE 01/24/16 Cesar Gonzalez MD [address] [place] [address] [id number] EP Machine Stamper CARDIOVASCULAR DISEASE 01/24/16 documented as of this encounter
--- OUTSIDE RECORDS SUMMARY | 2024-07-11 07:04 | XMS_ITS | Encounter Summary ---
Author Organization [facility] Address [address] [place] [address]. [place], [place] [address] [place] [address] Care Team Providers Care Custody Assistant Name Role Phone Unavailable Primary Care Provider Unavailabl e Encounter Details Date Type Department Care Team (Late st Contact Info) Description 02/27/2005 Abstract [place] [facility] AT [address] [place] [phone] , Generic Conversion, Social History Tobacco Use Types Packs/Day Years [...] Procedure Name Priority Date/Time Associated Diagnosis Comments EXTERNAL EJECTION FRACTION Routine 02/27/2005 12:00 AM CDT documented in this encounter Results * EXTERNAL EJECTION FRACTION (02/27/2005 12:00 AM CDT) EJECTION FRACTION 60-70 [facility] Anatomical Region Laterality Modality Other 02/27/2005 02/27/2005 Narrative 02/27/2005 12:00 AM CDT transthoracic echo, us Generic Conversion Md [facility] OTHER Final R esult documented in this encounter Visit Diagnoses Not on filedocumented in this encounter
--- OUTSIDE RECORDS SUMMARY | 2024-07-11 07:04 | XMS_ITS | Encounter Summary ---
Author Organization [facility] Address [address] [place] [address]. [place] [address] [place] [address] Care Team Providers Care Physics Professor Name Role Phone Baldomero Dominguez MD Primary Care Provider [phone] Cesar Gonzalez MD Unavailable Tram Dia MD Unavailable Encounter Details Date Type Department Care Team (Late st Contact Info) Description 08/30/2015 Abstract [facility] [address] [place] [address] Deloris Gutierrez PA-C [place] [address] [place] [address] Social History Tobacco Use Types Packs/Day Years [...] Start Date Job End Date Works at [employer] Not on file Not on file N ot on file documented as of this encounter Plan of Treatment Not on file documented as of this encounter Visit Diagnoses Not on filedocumented in this encounter Care Teams Physics Professor Relationship Specialty Start Date End Date Baldomero Dominguez MD [address] [facility] 3 [place] [address] PCP - General FAMILY PRACTICE 01/24/16 Cesar Gonzalez MD [address] [place] [address] EP Rough Rounder CARDIOVASCULAR DISEASE 01/24/16 Tram Dia MD [facility]. [address] [address] EP Rough Rounder CARDIOVASCULAR DISEASE 09/24/16 documented as of this encounter
--- OUTSIDE RECORDS SUMMARY | 2024-07-11 07:04 | XMS_ITS | Encounter Summary ---
Author Organization [facility] Address [address] [place] [address]. [place], [place] [address] [place] [address] Care Team Providers Care Enamel Burner Name Role Phone Baldomero Dominguez MD Primary Care Provider [phone] Cesar Gonzalez MD Unavailable Reason for Visit * Reason Onset Date Comments Prior Authorization 02/13/2016 Prior Author ization for Cartia XT 240mg has been APPROVED from 02-12-16 through 02-11-2017 Encounter Details Date Type Department Care Team (Late st Contact Info) Description 02/13/2016 [facility]phone [facility] AT [address] [address] Cesar Gonzalez MD [address] [place] [address] Prior Authorization (Prior Authorization for Cartia XT 240mg has been APPROVED from 02-12-16 through 02-11-2017) Social History Tobacco Use Types Packs/Day Years [...] Start Date Job End Date Works at [employer] Not on file Not on file N ot on file documented as of this encounter Progress Notes * Flavio Talley MA - 02/13/2016 11:58 AM CDT Prior Authorization for Cartia 240mg has been APPROVED from 02-12-16 through 02-11-2017 documented in this encounter Plan of Treatment Not on file documented as of this encounter Visit Diagnoses Not on filedocumented in this encounter Care Teams Enamel Burner Relationship Specialty Start Date End Date Baldomero Dominguez MD [address] [place] [address] PCP - General FAMILY PRACTICE 01/24/16 Cesar Gonzalez MD [address] [place] [address] EP Playground Supervisor CARDIOVASCULAR DISEASE 01/24/16 documented as of this encounter
--- OUTSIDE RECORDS SUMMARY | 2024-07-11 07:04 | XMS_ITS | Encounter Summary ---
Author Organization [facility] Address [address] [place] [address]. [place], [place] [address] [place] [address] Care Team Providers Care Industrial Machinery Mechanic Name Role Phone Unavailable Primary Care Provider Unavailabl e Encounter Details Date Type Department Care Team (Late st Contact Info) Description 07/08/2015 Abstract [facility] AT [address] [place] [address] , Generic ConversionMD Social History Tobacco Use Types Packs/Day Years [...] Procedure Name Priority Date/Time Associated Diagnosis Comments CBC,CONVERSION Routine 07/08/2015 12:00 AM QUALITY ASSURANCE NURSE THYROID PANEL Routine 07/08/2015 12:00 AM QUALITY ASSURANCE NURSE COMPREHENSIVE METABOLIC PANEL Routine 07/08/2015 12:00 AM QUALITY ASSURANCE NURSE documented in this encounter Results * CBC,CONVERSION (07/08/2015 12:00 AM QUALITY ASSURANCE NURSE) WBC 10.7 3.8 - 10.8 thous/mcl MEDINFORMAT[facility] TO EPIC CONVERSION HGB 10.7 12.0 - 15.6 g/dl MEDINFORMATIX TO EPIC CONVERSION HCT 34.2 35.0 - 46.0 % MEDINFORMAT[facility] TO EPIC CONVERSION PLATELET COUNT 408 130 - 400 thous/mcl MEDINFORMATIX TO EPIC CONVERSION 07/08/2015 07/08/2015 us Generic Conversion Md [facility] Final R esult MEDINFORMATIX TO EPIC CONVERSION * THYROID PANEL (07/08/2015 12:00 AM QUALITY ASSURANCE NURSE) TSH 1.14 0.4 - 5.5 micro IU/ml MEDINFORMATIX TO EPIC CONVERSION 07/08/2015 07/08/2015 Narrative MEDINFORMATIX TO EPIC CONVERSION - 07/16/2015 3:42 PM QUALITY ASSURANCE NURSE Reviewed by RONEL Jul 16 2015 ??3:42:33:000PM us Generic Conversion Md [facility] MED[facility]FORMAT[facility] TO EPIC CONVERSION * COMPREHENSIVE METABOLIC PANEL (07/08/2015 12:00 AM QUALITY ASSURANCE NURSE) SODIUM S/P/B 141 135 - 146 meq/l MEDINFORMAT[facility] TO EPIC CONVERSION POTASSIUM S/P/B 3.7 3.5 - 5.3 meq/l MEDINFORMATIX TO EPIC CONVERSION CHLORIDE S/P/B 103 95 - 108 meq/l MEDINFORMATIX TO EPIC CONVERSION CO2 26 17 - 31 meq/l MEDINFORMATIX TO EPIC CONVERSION GLUCOSE 112 70 - 125 mg/dl MEDINFORMATIX TO EPIC CONVERSION BUN 13 7 - 25 mg/dl MEDINFORMAT[facility] TO EPIC CONVERSION CREATININE S/P/B 0.7 0.5 - 1.4 mg/dl MEDINFORMATIX TO EPIC CONVERSION CALCIUM S/P/B 9.0 8.5 - 10.3 mg/dl MEDINFORMATIX TO EPIC CONVERSION BILIRUBIN TOTAL S/P/B <0.2 0.0 - 1.3 mg/dl MEDINFORMATIX TO EPIC CONVERSION ALK PHOS 63 20 - 125 u/l MEDINFORMATIX TO EPIC CONVERSION AST 15 0 - 42 u/l MEDINFORM ATIX TO EPIC CONVERSION ALT 14 0 - 48 u/l MEDINFORM ATIX TO EPIC CONVERSION TOTAL PROTEIN S/P/B 7.4 6.0 - 8.5 g/dl MEDINFORMATIX TO EPIC CONVERSION ALBUMIN S/P/B 4.1 3.2 - 5.0 G/DL MEDINFORMATIX TO EPIC CONVERSION EGFR NON-AFR. AMER. >90 >60 ml/min/1.7 3 sq.m MEDINFORMATIX TO EPIC CONVERSION 07/08/2015 07/08/2015 us Generic Conversion Md [facility] Final R esult MEDINFORMATIX TO EPIC CONVERSION documented in this encounter Visit Diagnoses Not on filedocumented in this encounter
--- OUTSIDE RECORDS SUMMARY | 2024-07-11 07:04 | XMS_ITS | Encounter Summary ---
Author Organization [facility] Address [facility]. [place], [place] [address] [place] [address] Care Team Providers Care Tool And Die Maker Level Five Name Role Phone Baldomero Dominguez MD Primary Care Provider [phone] Cesar Gonzalez MD Unavailable Encounter Details Date Type Department Care Team (Late st Contact Info) Description 02/28/2014 [facility] [address] [place] [address] , Jayce Pinon MD Social History Tobacco [...] on filedocumented in this encounter Care Teams Tool And Die Maker Level Five Relationship Specialty Start Date End Date Baldomero Dominguez MD [address] [facility] 3 [place] [address] PCP - General FAMILY PRACTICE 01/24/16 Cesar Gonzalez MD [address] [place] [address] [address] [address] Teller CARDIOVASCULAR DISEASE 01/24/16 documented as of this encounter
--- OUTSIDE RECORDS SUMMARY | 2024-07-11 07:04 | XMS_ITS | Encounter Summary ---
Author Organization [facility] Address [address] [place] [address]. [place], [place] [address] [place] [address] Care Team Providers Care Cash Applications Manager Name Role Phone Baldomero Dominguez MD Primary Care Provider [phone] Cesar Gonzalez MD Unavailable Reason for Visit * Reason Onset Date Comments Appointment Request 09/16/2016 Encounter Details Date Type Department Care Team (Late st Contact Info) Description 09/16/2016 Telephone [facility] AT [address] [address] Ninoska [place]oades, [place] [address] Appointment Request Social History Tobacco Use Types [...] Start Date Job End Date Works at [employer] Not on file Not on file N ot on file documented as of this encounter Progress Notes * Deloris Gutierrez PA-C - 09/16/2016 11:17 AM CST She can be seen. She needs an ablation. Thanks Deloris ER LINER * Ninoska Rhoades RN - 09/16/2016 10:58 AM CST Patient returned my call. Patient state that she has hx of SVT since the age of 20. She stated thatshe has been having episodes of palpitations, c/p, sob, and being lightheaded. She stated that she knows when she's in SVT's based on the above symptoms. She stated that she had an episode yesterday in which her heart rate was 212. She stated that the episodes can last up to an hour. And afterwards, she feels fatigued and weak. Patients wants to know if she can be seen preferably tomorrow. ER LINER * Ninoska Rhoades RN - 09/16/2016 8:51 AM CST Received voicemail from patient. In the voicemail, patient stated that she had another attack. And she wants to know if she can see Dr. Gonzalez soon. Her next appointment isn't until January. Not sure if she meant palpitations (read from previous office note). Attempted to call patient back on cell and home phone, but unavailable. Left message on her cell phone to call our office and left message with family for to call our office. ER LINER documented in this encounter Plan of Treatment Not on file documented as of this encounter Visit Diagnoses Not on filedocumented in this encounter Care Teams Cash Applications Manager Relationship Specialty Start Date End Date Baldomero Dominguez MD [address] [place] [address] PCP - General FAMILY PRACTICE 01/24/16 Cesar Gonzalez MD [address] [place] [address] EP Tower Hoist Operator CARDIOVASCULAR DISEASE 01/24/16 documented as of this encounter
--- OUTSIDE RECORDS SUMMARY | 2024-07-11 07:04 | XMS_ITS | Encounter Summary ---
Author Organization [facility] Address [address] [place] [address]. [place], [place] [address] [place] [address] Care Team Providers Care Scientific Programmer Analyst Name Role Phone Unavailable Primary Care Provider Unavailabl e Encounter Details Date Type Department Care Team (Late st Contact Info) Description 08/30/2015 [facility] AT [address] [address] , Jayce Pinon MD Social History Tobacco [...]
--- OUTSIDE RECORDS SUMMARY | 2024-07-11 07:04 | XMS_ITS | Encounter Summary ---
Author Organization [facility] Address [facility]. [place], [place] [address] [place] [address] Care Team Providers Care Health And Physical Education Teacher Name Role Phone Baldomero Dominguez MD Primary Care Provider [phone] Cesar Gonzalez MD Unavailable Encounter Details Date Type Department Care Team (Late st Contact Info) Description 08/16/2012 [facility] AT [place] [address] [place] [address] , Jayce Pinon MD Social History Tobacco [...] on filedocumented in this encounter Care Teams Health And Physical Education Teacher Relationship Specialty Start Date End Date Baldomero Dominguez MD [address] [facility] 3 [place] [address] PCP - General FAMILY PRACTICE 01/24/16 Cesar Gonzalez MD [address] [place] [address] EP Laborer Wood Preserving Plant CARDIOVASCULAR DISEASE 01/24/16 documented as of this encounter
--- OUTSIDE RECORDS SUMMARY | 2024-07-11 07:04 | XMS_ITS | Encounter Summary ---
Author Organization [facility] Address [address] [place] [address]. [place], [place] [address] [place] [address] Care Team Providers Care Trolley Car Overhauler Name Role Phone Unavailable Primary Care Provider Unavailabl e Encounter Details Date Type Department Care Team (Late st Contact Info) Description 11/01/2014 Abstract [facility] AT [address] [address] , Jayce Pinon MD Social History Tobacco [...]
--- OUTSIDE RECORDS SUMMARY | 2024-07-11 07:04 | XMS_ITS | Encounter Summary ---
Author Organization [facility] Address [address] [place] [address]. [place], [place] [address] [place] [address] Care Team Providers Care Cartographic Aide Name Role Phone Badlomero Dominguez MD Primary Care Provider [phone] Cesar Gonzalez MD Unavailable Reason for Visit * Reason Comments Palpitations 6 month follow up Supraventricular Tachycardia Encounter Details Date Type Department Care Team (Latest Contact Info) Description 08/13/2016 2:00 PM MEDICAL ACCOUNTANT Office Visit [facility] AT [address] [address] Deloris Gutierrez PA-C [address] [address] Palpitations (6 month follow up); Supraventricular Tachycardia Social History Tobacco Use Types Packs/Day Years [...] Start Date Job End Date Works at [employer] Not on file Not on file N ot on file documented as of this encounter Last Filed Vital Signs Vital Sign Reading Time Taken Comments Blood Pressure 124/80 08/13/2016 2:29 PM MEDICAL ACCOUNTANT Pulse 82 08/13/2016 2:29 PM MEDICAL ACCOUNTANT Temperature - - Respiratory Rate - - Oxygen Saturation 97% 08/13/2016 2:29 PM MEDICAL ACCOUNTANT Inhaled Oxygen Concentration - - Weight 126.6 kg (279 lb) 08/13/2016 2:29 PM MEDICAL ACCOUNTANT Height 167.6 cm (5' 6 ) 08/13/2016 2:29 PM MEDICAL ACCOUNTANT Body Mass Index 45.03 08/13/2016 2:29 PM MEDICAL ACCOUNTANT documented in this encounter Patient Instructions * Patient Instructions* Reyna Lowery - 08/13/2016 2:00 PM MEDICAL ACCOUNTANT Images from the original note were not included. Index Related??topics Paroxysmal Supraventricular Tachycardia (Fast Heartbeat) REBOLLEDO [...] can I take care of myself? Follow full course of treatment prescribed by your [...] healthcare provider's instructions for treatment. Developed by [employer]. Adult Advisor 2016.3 published by [employer]. Last modified: 2015-10-16 Last reviewed: 2014-12-10 This content is reviewed periodically and is subject to change as new health information becomes available. The information is intended to inform and educate and is not a replacement for medical evaluation, advice, diagnosis or treatment by a healthcare professional. References Adult Advisor 2015.3 Index Copyright ?? 2016 [employer], a division of [employer]. All rights reserved. CAL ACCOUNTANT documented in this encounter Progress Notes * Deloris Gutierrez PA-C - 08/13/2016 2:00 PM CST Reason for Visit: Palpitations (6 month follow up) and Supraventricular Tachycardia Recommendations and Plan: 1. Supraventricular tachycardia. Overall Ms. Quesada is doing well from a cardiac standpoint. Continues to have occasional palpitations, but they are greatly improved. Once again we discussed the options of treatment and I suggestedthat she should strongly consider the ablation procedure. I discussed the details of the procedure with her. She feels medications are working well at this time and would like to hold off on the procedure for now. Advised her to continue her current dose of Cardizem for now. Will follow up with the patient in 6 months or sooner if needed. History of Present Illness: Rowena Quesada is a 51-year-old female with a past medical history of obesity here today for scheduled follow up appointment. Patient has been doing well since her last office visit. No new chest pressure/discomfort, dyspnea, irregular heart beats, near-syncope, fatigue, claudication or lower extremity edema. Patient does complain of palpitations. Reports occasional episodes. Episodes are shortin duration. Patient remains mindful of her diet and tries to remain as active as possible. Patientreports that overall she doing well from a cardiac standpoint. Medications: Current Outpatient Prescriptions: ??? APRISO 0.375 G CAPSULE SR 24 HR, Take 4 tablets by mouth daily., Disp: , Rfl: 11 ??? diltiazem 240 MG 24 hr capsule, Take 1 capsule (240 mg total) by mouth 2 (two) times daily. ReasonsPrior Authorization for Cartia 240mg has been APPROVED from 02-12-16 through 02-11-2017 Prior Authorization for Cartia 240mg has been APPROVED from 02-12-16 through 02-11-2017, Disp: , Rfl: ??? Ferrous Sulfate 325 (65 FE) MG Tab EC, Take 1 tablet (325 mg total) by mouth daily., Disp: , Rfl: No Known Allergies Past Medical History: Diagnosis Date ??? Crohn disease ??? Supraventricular tachycardia Past Surgical History: Procedure Laterality Date ??? CHOLECYSTECTOMY 2016 Social History Social History ??? Marital status: Single Spouse name: N/A ??? Number of children: 3 ??? Years of education: N/A Occupational History ??? Works at [employer] Social History Main Topics ??? Smoking status: Never Smoker ??? Smokeless tobacco: Never Used ??? Alcohol use Yes Comment: Drinks occasionally ??? Drug use: No ??? Sexual activity: Not Asked Comment: UNKNOWN Other Topics Concern ??? Exercise Yes Walking ??? Special Diet No ??? Caffeine Concern Yes Social History Narrative Family History Problem Relation Age of Onset ??? Hypertension Maternal Grandmother Family Status Relation Status ??? Maternal Grandmother Review of Systems Constitutional: Negative for malaise/fatigue and weight loss. HENT: Negative for hearing loss. Eyes: Negative for blurred vision and double vision. Respiratory: Negative for cough, hemoptysis, shortness of breath and wheezing. Cardiovascular: Positive for palpitations. Negative for chest pain, orthopnea and leg swelling. Gastrointestinal: Negative for blood in stool and melena. Genitourinary: Negative for dysuria. Musculoskeletal: Negative for joint pain and myalgias. Skin: Negative for rash. Neurological: Negative for tingling, sensory change, focal weakness and headaches. Endo/Heme/Allergies: Negative for polydipsia. Does not bruise/bleed easily. Filed Vitals: 08/13/16 1429 BP: 124/80 Pulse: 82 SpO2: 97% Weight: 126.6 kg (279 lb) Height: 5' 6 (1.676 m) Physical Exam Constitutional: She is oriented to person, place, and time. She appears well- developed and well-nourished. No distress. HENT: Nose: No mucosal edema. Mouth/Throat: Oropharynx is clear and moist and mucous membranes are normal. No oropharyngeal exudate. Neck: Neck supple. No JVD present. Carotid bruit is not present. Cardiovascular: Normal rate, regular rhythm, S1 normal, S2 normal and intact distal pulses. No extrasystoles are present. Exam reveals no gallop. No murmur heard. Pulmonary/Chest: Effort normal and breath sounds normal. No respiratory distress. She has no wheezes. She has no rales. Abdominal: Soft. Bowel sounds are normal. There is no hepatosplenomegaly. There is no tenderness. Musculoskeletal: She exhibits no edema or deformity. Neurological: She is alert and oriented to person, place, and time. Skin: Skin is warm and dry. No erythema. Psychiatric: She has a normal mood and affect. Her behavior is normal. Thought content normal. Diagnoses/Impression: 1. SVT (supraventricular tachycardia) CAL ACCOUNTANT documented in this encounter Plan of Treatment Not on file documented as of this encounter Visit Diagnoses Diagnosis SVT (supraventricular tachycardia) (CMS/HCC HHS/HCC)- Primary Other specified cardiac dysrhythmias documented in this encounter Care Teams Cartographic Aide Relationship Specialty Start Date End Date Baldomero Dominguez MD [address] [place] [address] PCP - General FAMILY PRACTICE 01/24/16 Cesar Gonzalez MD [address] [place] [address] EP Metal Model Builder CARDIOVASCULAR DISEASE 01/24/16 documented as of this encounter
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
--- OUTSIDE RECORDS SUMMARY | 2024-07-11 07:04 | XMS_ITS | Encounter Summary ---
Author Organization [facility] Address [address] [place] [address]. [place], [place] [address] [place] [address] Care Team Providers Care Natural Resources Faculty Member Name Role Phone Unavailable Primary Care Provider Unavailabl e Reason for Visit * Reason Onset Date Comments Question 01/20/2016 Encounter Details Date Type Department Care Team (Late st Contact Info) Description 01/20/2016 Telephone [employer] [facility] AT [address] [address] Cesar Gonzalez MD [address] [place] [phone] Question Social History Tobacco Use Types Packs/Day Years Used Date Smoking Tobacco: Never Assessed Comments Unknown Sex and Gender Information Value Date Recorded Sex Assigned at Not on file Legal Sex Female 11:35 PM CDT Gender Identity Not on file Sexual Orientation Not on file documented as of this encounter Progress Notes * Blele Gonzalez RN - 01/20/2016 3:58 PM CDT Stopping the medication will not affect her colonoscopy/procedure. She can still have the procedure. If she does not want to take the medication she needs to consider the ablation that has been discussed multiple times with her. If she has reoccurrence of symptoms she should resume the medication. Michael Puentes I called the patient and informed her of the above orders per Deloris MAURICE. The patient wanted to knowif she could mix her Barium with gatorade and I informed her to contact her pcp with this questions. The patient voiced understanding and had no further questions. * Deloris uGtierrez PA-C - 01/20/2016 3:32 PM CDT Stopping the medication will not affect her colonoscopy/procedure. She can still have the procedure. If she does not want to take the medication she needs to consider the ablation that has been discussed multiple times with her. If she has reoccurrence of symptoms she should resume the medication. Michael Punetes * Belle Gonzalez RN - 01/20/2016 3:14 PM CDT I called the patient and she informed me that she got my message and she knows Dr. Gonzalez cleared her for her Colonoscopy but she wanted him to know that she stopped taking hr Cardia several months ago after seeing Dr. Gonzalez's PA . She stated the reason she stopped taking it was because it was making her feel tired. She wanted to know that since she has not been taking this medication would this prevent her from getting her Colonoscopy tomorrow. I instructed her that I will give this message to 's PA. The patient voiced understanding and had no further questions. Message sent to Dr. Gonzalez's PA * Belle Gonzalez RN - 01/20/2016 1:33 PM CDT I returned her call and I left her a message that Cardiac Clearance was sent to Dr. Cruz's faxed from our office on 12/27/15. Provided office number and ext if she has further questions. * Belle Gonzalez RN - 01/20/2016 1:31 PM CDT The patient called and left a message she is going to have a Colonoscopy tomorrow and wants to makesure this is ok with Dr. Gonzalez. She stated she would not get off work until 3:30. documented in this encounter Plan of Treatment Not on file documented as of this encounter Visit Diagnoses Not on filedocumented in this encounter
--- OUTSIDE RECORDS SUMMARY | 2024-07-11 07:04 | XMS_ITS | Encounter Summary ---
Author Organization [facility] Address [facility] [facility] [place] [address] [place] [address] Care Team Providers Care Manuscripts Curator Name Role Phone Baldomero Dominguez MD Primary Care Provider [phone] Cesar Gonzalez MD Unavailable Tram Dia MD Unavailable Encounter Details Date Type Department Care Team (Late st Contact Info) Description 05/21/2008 Abstract [facility] [address] [place], [place] [phone] , Jayce Pinon MD Social History Tobacco [...] on filedocumented in this encounter Care Teams Manuscripts Curator Relationship Specialty Start Date End Date Baldomero Dominguez MD [address] [facility] [address] [place] [address] PCP - General FAMILY PRACTICE 01/24/16 Cesar Gonzalez MD [address] [place] [address] EP Inspector Wire Rope CARDIOVASCULAR DISEASE 01/24/16 Tram Dia MD [facility]. [address] [address] EP Inspector Wire Rope CARDIOVASCULAR DISEASE 09/24/16 documented as of this encounter
--- OUTSIDE RECORDS SUMMARY | 2024-07-11 07:04 | XMS_ITS | Encounter Summary ---
Author Organization [facility] Address [address] [place] [address]. [place], [place] [address] [place] [address] Care Team Providers Care Film Splicer Name Role Phone Baldomero Dominguez MD Primary Care Provider [phone] Cesar Gonzalez MD Unavailable Tram Dia MD Unavailable Reason for Visit * Reason Onset Date Comments Information 10/07/2016 FMLA correction Encounter Details Date Type Department Care Team (Late st Contact Info) Description 10/07/2016 Telephone [facility] AT [address] [address] Deloris Gutierrez PA-C [place] [address] [place] [address] Information (FMLA correction) Social History Tobacco Use Types Packs/Day Years [...] Progress Notes * Ninoska Rhoades RN - 10/07/2016 12:19 PM CDT Spoke to Deloris and informed of the above. Per Deloris, [place] papers will corrected. Reiterate to patient that Dr. Gonzalez referred patient to Dr. Dia for her SVT episodes. * Ninoska Rhoades RN - 10/07/2016 12:03 PM CDT Received phone call from patient. Patient stated that she had another episode last night. Patientstated that she woke up SOB and felt her heart racing. She stated that she took her Pulse and it was in the 160's. Patient stated that she did not have C/P but felt heaviness in her chest. She statedthat the fast heart rate lasted about 3 hrs and she felt tired and weak afterwards. She stated that after she laid around for 3 hrs, her symptoms resolved. And still feels tired and weak today. She stated that her FMLA papers that our office completed has down that she's having these palpitations/SVT episodes twice a year, but she stated that she's having them once or twice a week. She stated that she needs those papers corrected MELVIN. I informed the patient that she needs to make another appointment with Dr. Dia Since she missed the previous one. She stated that she does not want any invasive procedures done and therefore is questioning why she needs to see Dr. Dia. I informed the patient that it's her choice not have any invasive procedures, but Dr. Dia may have other recommendations for her above/mentioned episodes. Patient stated that she would prefer to talk to Dr. Gonzalez. Instructed patient that Dr. Gonzalez referred her to Dr. Gonzalez for further management of her SVT/Palpitaions. Message to Deloris * Deloris Gutierrez PA-C - 10/07/2016 11:19 AM CDT Call her and let her know we cannot change it until she is seen again in the clinic. She should be seen by Dr. Dia. Thanks Delorsi * Ashlie Pena - 10/07/2016 10:02 AM CDT Would like me to call her, or is that something you want to talk to her about? * Deloris Gutierrez PA-C - 10/07/2016 9:41 AM CDT If she is having that frequent of episodes she needs to be seen by Dr Dia. She missed her appt with him last week * Ashlie Pena - 10/07/2016 9:35 AM CDT 10/07/16 patient called and asked if we could make a correction on the FMLA form( which we have already submitted) She claims to have episodes once or twice a week, and we only put twice in 12 months.I put a copy of the form( we had submitted) on Deloris's desk for her... if she wants to make changes. jcp documented in this encounter Plan of Treatment Not on file documented as of this encounter Visit Diagnoses Not on filedocumented in this encounter Care Teams Film Splicer Relationship Specialty Start Date End Date Baldomero Dominguez MD [address] [address] PCP - General FAMILY PRACTICE 01/24/16 Cesar Gonzalez MD [address] [place] [address] EP Bag Valver CARDIOVASCULAR DISEASE 01/24/16 Tram Dia MD [address] [address] EP Bag [place] CARDIOVASCULAR DISEASE 09/24/16 documented as of this encounter
--- OUTSIDE RECORDS SUMMARY | 2024-07-11 07:04 | XMS_ITS | Encounter Summary ---
Author Organization [facility] Address [address] [place] [address]. [place], [place] [address] [place] [address] Care Team Providers Care Moisture Tester Name Role Phone Baldomero Dominguez MD Primary Care Provider [phone] Cesar Gonzalez MD Unavailable Reason for Visit * Reason Onset Date Comments Medication Information 01/29/2016 Encounter Details Date Type Department Care Team (Late st Contact Info) Description 01/29/2016 Telephone [facility] AT [address] [address] Cesar Gonzalez MD [address] [place] [address] Medication Information Social History Tobacco Use Types Packs/Day Years Used Date Smoking Tobacco: Never Assessed Comments Unknown Sex and Gender Information Value Date Recorded Sex Assigned at Not on file Legal Sex Female 11:35 PM CDT Gender Identity Not on file Sexual Orientation Not on file documented as of this encounter Progress Notes * Belle Gonzalez RN - 01/29/2016 3:42 PM CDT The patient called and told that when she talk to me last week she informed me of the the wrong medication she had stopped. She stated she did not stop the Cardia But she stopped another medication. She could not give me the name of it because her medication bottle is at home. She stated she will bring the bottle into her appointment next week and talk to Dr. Gonzalez. I instructed her that I will inform Dr. Gonzalez's PA. The patient voiced understanding and had no further questions. Message sent to 's PA. documented in this encounter Plan of Treatment Not on file documented as of this encounter Visit Diagnoses Not on filedocumented in this encounter Care Teams Moisture Tester Relationship Specialty Start Date End Date Baldomero Dominguez MD [address] [place] [address] PCP - General FAMILY PRACTICE 01/24/16 Cesar Gonzalez MD [address] [place] [address] EP Senior Partner CARDIOVASCULAR DISEASE 01/24/16 documented as of this encounter
--- OUTSIDE RECORDS SUMMARY | 2024-07-11 07:04 | XMS_ITS | Encounter Summary ---
Author Organization [facility] Address [address] [place] [address]. [place], [place] [address] [place] [address] Care Team Providers Care Filter Worker Name Role Phone Unavailable Primary Care Provider Unavailabl e Encounter Details Date Type Department Care Team (Late st Contact Info) Description 08/30/2015 [facility] AT [address] [place] [address] , Jayce Pinon MD Social History Tobacco [...]
--- OUTSIDE RECORDS SUMMARY | 2024-07-11 07:04 | XMS_ITS | Encounter Summary ---
Author Organization [facility] Address [facility]. [place], [place] [address] [place] [address] Care Team Providers Care Senior Pl Sql Developer Name Role Phone Baldomero Dominguez MD Primary Care Provider [phone] Cesar Gonzalez MD Unavailable Encounter Details Date Type Department Care Team (Late st Contact Info) Description 06/03/2011 [facility] [address] [place] [address] , Jayce Pinon MD Social History Tobacco [...] on filedocumented in this encounter Care Teams Senior Pl Sql Developer Relationship Specialty Start Date End Date Baldomero Dominguez MD [address] [facility] 3 [place] [address] PCP - General FAMILY PRACTICE 01/24/16 Cesar Gonzalez MD [address] [place] [address] EP Ramp Supervisor CARDIOVASCULAR DISEASE 01/24/16 documented as of this encounter
--- OUTSIDE RECORDS SUMMARY | 2024-07-11 07:04 | XMS_ITS | Encounter Summary ---
Author Organization [facility] Address [address] [place] [address]. [place], [place] [address] [place] [address] Care Team Providers Care Sewer Line Repairer Name Role Phone Baldomero Dominguez MD Primary Care Provider [phone] Cesar Gonzalez MD Unavailable Tram Dia MD Unavailable Encounter Details Date Type Department Care Team (Late st Contact Info) Description 05/26/2007 Abstract [facility] [address] [place] [address] Hernán Landaverde MD [address] [address] Social History Tobacco Use Types Packs/Day Years [...] on filedocumented in this encounter Care Teams Sewer Line Repairer Relationship Specialty Start Date End Date Baldomero Dominguez MD [address] [facility] 3 [place], [place] [address] PCP - General FAMILY PRACTICE 01/24/16 Cesar Gonzalez MD [address] [place] [address] EP Cook [place] CARDIOVASCULAR DISEASE 01/24/16 Tram Dia MD [facility]. [address] [address] EP Cook [place] CARDIOVASCULAR DISEASE 09/24/16 documented as of this encounter
--- OUTSIDE RECORDS SUMMARY | 2024-07-11 07:04 | XMS_ITS | Encounter Summary ---
Author Organization [facility] Address [address] [place] [address]. [place], [place] [address] [place] [address] Care Team Providers Care Rd Mechanical Engineer Name Role Phone Unavailable Primary Care Provider Unavailabl e Encounter Details Date Type Department Care Team (Late st Contact Info) Description 10/22/2014 Abstract [facility] AT [address] [place] [id number] , Generic ConversionMD Social History Tobacco Use [...] Procedure Name Priority Date/Time Associated Diagnosis Comments LIVER PROFILE Routine 10/22/2014 12:00 AM CDT documented in this encounter Results * LIVER PROFILE (10/22/2014 12:00 AM CDT) ALT 13 0 - 48 u/l MEDINFORM ATIX TO EPIC CONVERSION AST 14 0 - 42 u/l MEDINFORM ATIX TO EPIC CONVERSION GLOBULIN 3.5 2.3 - 3.6 g/dL MEDINFORMATIX TO EPIC CONVERSION 10/22/2014 10/22/2014 us Generic Conversion Md [facility] Final R esult MEDINFORMATIX TO EPIC CONVERSION documented in this encounter Visit Diagnoses Not on filedocumented in this encounter
--- OUTSIDE RECORDS SUMMARY | 2024-07-11 07:04 | XMS_ITS | Encounter Summary ---
Author Organization [facility] Address [facility]6 [place] [address] [place] [address] Care Team Providers Care Art Specialist Name Role Phone Baldomero Dominguez MD Primary Care Provider [phone] Cesar Gonzalez MD Unavailable Tram Dia MD Unavailable Encounter Details Date Type Department Care Team (Late st Contact Info) Description 08/31/2012 Abstract [place] [address] Cesar Gonzalez MD [address] [place] [address] Social History Tobacco Use Types [...] on filedocumented in this encounter Care Teams Art Specialist Relationship Specialty Start Date End Date Baldomero Dominguez MD [address] [address] PCP - General FAMILY PRACTICE 01/24/16 Cesar Gonzalez MD [address] [place] [address] EP Regional Clinical Research Associate CARDIOVASCULAR DISEASE 01/24/16 Tram Dia MD [address] [address] EP Regional Clinical Research Associate CARDIOVASCULAR DISEASE 09/24/16 documented as of this encounter
--- OUTSIDE RECORDS SUMMARY | 2024-07-11 07:04 | XMS_ITS | Encounter Summary ---
Author Organization [facility] Address [address] [place] [address]. [place], [place] [address] [place] [address] Care Team Providers Care Clinical Trial Specialist Name Role Phone Baldomero Dominguez MD Primary Care Provider [phone] Cesar Gonzalez MD Unavailable Reason for Visit * Reason Onset Date Comments Information 09/23/2016 [employer] FMLA Encounter Details Date Type Department Care Team (Late st Contact Info) Description 09/23/2016 Telephone [facility] AT [address] [address] Tram Dia MD [address] [address] Information ([employer] FMLA) Social History Tobacco Use Types Packs/Day Years [...] Start Date Job End Date Works at [employer] Not on file Not on file N ot on file documented as of this encounter Progress Notes * Ashlie Pena - 09/23/2016 2:20 PM CST 09/23/16 Received a duplicate FMLA form. I called patient and she said there were a few empty blanks on the one we faxed. I printed the form we had faxed and put it, with a new one, on Deloris's desk. The patient specifically asked that the date condition commenced, probable duration, dates treated befilled in. And on another page she needs 09/07/16 through 03/06/17, for the start and end date. She said All FMLAs start with 6 mos. CIAN MANAGER documented in this encounter Plan of Treatment Not on file documented as of this encounter Visit Diagnoses Not on filedocumented in this encounter Care Teams Clinical Trial Specialist Relationship Specialty Start Date End Date Baldomero Dominguez MD [address] [place] [address] PCP - General FAMILY PRACTICE 01/24/16 Cesar Gonzalez MD [address] [place] [address] EP Professional Employer Consultant CARDIOVASCULAR DISEASE 01/24/16 documented as of this encounter
--- OUTSIDE RECORDS SUMMARY | 2024-07-11 07:04 | XMS_ITS | Encounter Summary ---
Author Organization [facility] Address [facility]. [place], [place] [address] [place] [address] Care Team Providers Care Integration Manager Name Role Phone Baldomero Dominguez MD Primary Care Provider [phone] Cesar Gonzalez MD Unavailable Encounter Details Date Type Department Care Team (Late st Contact Info) Description 02/01/2014 [facility] [address] [place] [address] , Jayce Pinon MD Social History Tobacco [...] on filedocumented in this encounter Care Teams Integration Manager Relationship Specialty Start Date End Date Baldomero Dominguez MD [address] [facility] 3 [place] [address] PCP - General FAMILY PRACTICE 01/24/16 Cesar Gonzalez MD [address] [place] [address] EP Seam Presser CARDIOVASCULAR DISEASE 01/24/16 documented as of this encounter
--- OUTSIDE RECORDS SUMMARY | 2024-07-11 07:04 | XMS_ITS | Encounter Summary ---
Author Organization [facility] Address [address] [place] [address]. [place], [place] [address] [place] [address] Care Team Providers Care Tax Analyst Name Role Phone Unavailable Primary Care Provider Unavailabl e Encounter Details Date Type Department Care Team (Late st Contact Info) Description 10/24/2012 Abstract [facility] AT [address] [place] [address] , Jayce Pinon MD Social History Tobacco [...]
--- OUTSIDE RECORDS SUMMARY | 2024-07-11 07:04 | XMS_ITS | Encounter Summary ---
Author Organization [facility] Address [address] [place] [address]. [place], [place] [address] [place] [address] Care Team Providers Care County Director Name Role Phone Baldomero Dominguez MD Primary Care Provider [phone] Cesar Gonzalez MD Unavailable Reason for Visit * Reason Onset Date Comments Information 09/23/2016 [employer] / FMLA Encounter Details Date Type Department Care Team (Late st Contact Info) Description 09/23/2016 Telephone [facility] AT [address] [address] Tram Dia MD [address] [address] Information (Cigna / FMLA) Social History Tobacco Use Types Packs/Day [...] Start Date Job End Date Works at [employer] Not on file Not on file N ot on file documented as of this encounter Progress Notes * Ashlie Pena - 09/23/2016 1:19 PM CST 09/23/16 received another FMLA form, (the same as we faxed one week ago). I called patient and she isgoing to see if this needs to be completed again.Form is in green folder.jcp NDS/MAINTENANCE SPECIALIST documented in this encounter Plan of Treatment Not on file documented as of this encounter Visit Diagnoses Not on filedocumented in this encounter Care Teams County Director Relationship Specialty Start Date End Date Baldomero Dominguez MD [address] [place] [address] PCP - General FAMILY PRACTICE 01/24/16 Cesar Gonzalez MD [address] [place] [address] EP Systems Integration Analyst CARDIOVASCULAR DISEASE 01/24/16 documented as of this encounter
--- OUTSIDE RECORDS SUMMARY | 2024-07-11 07:04 | XMS_ITS | Encounter Summary ---
Author Organization [facility] Address [address] [place] [address]. [place] [address] [place] [address] Care Team Providers Care Toy Department Manager Name Role Phone Unavailable Primary Care Provider Unavailabl e Encounter Details Date Type Department Care Team (Late st Contact Info) Description 09/02/2015 Abstract [facility] AT [address] [place] [address] , Jayce Pinon MD Social History Tobacco [...] Sign Reading Time Taken Comments Blood Pressure 138/68 09/02/2015 8:55 AM RN MED SURG Pulse 94 09/02/2015 8:55 AM RN MED SURG Temperature - - Respiratory Rate - - Oxygen Saturation - - Inhaled Oxygen Concentration - - Weight 120.2 kg (265 lb) 09/02/2015 8:55 AM RN MED SURG Height 167.6 cm (5' 6 ) 09/02/2015 8:55 AM RN MED SURG Body Mass Index 42.77 09/02/2015 8:55 AM RN MED SURG documented in this encounter Plan of Treatment Not on file documented as of this encounter Visit Diagnoses Not on filedocumented in this encounter
--- OUTSIDE RECORDS SUMMARY | 2024-07-11 07:04 | XMS_ITS | Encounter Summary ---
Author Organization [facility] Address [facility]6 [facility]. [place], [place] [address] [place] [address] Care Team Providers Care Record Label Intern Name Role Phone Baldomero Dominguez MD Primary Care Provider [phone] Cesar Gonzalez MD Unavailable Encounter Details Date Type Department Care Team (Late st Contact Info) Description 11/18/2011 Abstract [facility] AT [address] [place] [address] , Jayce Pinon MD Social History Tobacco [...] on filedocumented in this encounter Care Teams Record Label Intern Relationship Specialty Start Date End Date Baldomero Dominguez MD [address] [facility] 3 [place] [address] PCP - General FAMILY PRACTICE 01/24/16 Cesar Gonzalez MD [address] [place] [address] EP Teacher CARDIOVASCULAR DISEASE 01/24/16 documented as of this encounter
--- OUTSIDE RECORDS SUMMARY | 2024-07-11 07:04 | XMS_ITS | Encounter Summary ---
Author Organization [facility] Address [address] [place] [address]. [place], [place] [address] [place] [address] Care Team Providers Care Store Sales Manager Name Role Phone Baldomero Dominguez MD Primary Care Provider [phone] Cesar Gonzalez MD Unavailable Reason for Visit * Reason Onset Date Comments Information 02/14/2016 extended FMLA Encounter Details Date Type Department Care Team (Late st Contact Info) Description 02/14/2016 Telephone [employer] AT [address] [phone] Cesar Gonzalez MD [address] [place] [address] Information (extended FMLA) Social History Tobacco Use Types Packs/Day [...] Progress Notes * Deloris Gutierrez PA-C - 02/14/2016 3:23 PM CDT Returned patients phone call at requested number of [phone], no answer. Call patients work/cell phone. No answer, left VM for patient to return my call to discuss in depth information needed for work. Deloris Gutierrez PA-C * Ashlie Pena - 02/14/2016 2:49 PM CDT 02/14/16 Patient called and said that her employer needs more information on her extended FMLA. I transferred the call to Deloris. documented in this encounter Plan of Treatment Not on file documented as of this encounter Visit Diagnoses Not on filedocumented in this encounter Care Teams Store Sales Manager Relationship Specialty Start Date End Date Baldomero Dominguez MD [address] [place] [address] PCP - General FAMILY PRACTICE 01/24/16 Csear Gonzalez MD [address] [place] [address] EP Ground Crewman Aircraft Support CARDIOVASCULAR DISEASE 01/24/16 documented as of this encounter
--- OUTSIDE RECORDS SUMMARY | 2024-07-11 07:04 | XMS_ITS | Encounter Summary ---
Author Organization [facility] Address [facility]. [place], [place] [address] [place] [address] Care Team Providers Care Medical Insurance Coding Specialist Name Role Phone Baldomero Dominguez MD Primary Care Provider [phone] Cesar Gonzalez MD Unavailable Encounter Details Date Type Department Care Team (Late st Contact Info) Description 08/16/2012 [facility] AT [address] [place] [address] , Jayce Pinon MD Social History Tobacco [...] on filedocumented in this encounter Care Teams Medical Insurance Coding Specialist Relationship Specialty Start Date End Date Baldomero Dominguez MD [address] [facility] 3 [place] [address] PCP - General FAMILY PRACTICE 01/24/16 Cesar Gonzalez MD [address] [place] [address] EP Media Production Operator CARDIOVASCULAR DISEASE 01/24/16 documented as of this encounter
--- OUTSIDE RECORDS SUMMARY | 2024-07-11 07:04 | XMS_ITS | Encounter Summary ---
Author Organization [facility] Address [address] [place] [address]. [place], [place] [id number] [place] [id number] Care Team Providers Care Legal Referee Name Role Phone Baldomero Dominguez MD Primary Care Provider [phone] Cesar Gonzalez MD Unavailable Reason for Visit * Reason Onset Date Comments Question 05/13/2016 Release letter Encounter Details Date Type Department Care Team (Late st Contact Info) Description 05/13/2016 Telephone [facility] [address] Belle Gonzalez, RN Question (Release letter) Social History Tobacco Use Types Packs/Day Years [...] Start Date Job End Date Works at [employer] Not on file Not on file N ot on file documented as of this encounter Progress Notes * Belle Gonzalez RN - 05/14/2016 1:04 PM CDT Deloris MAURICE informed me that stated he will not sign a release for the patient excusing her from working the late shift and she 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 I called the patient and I left her a message to call the office. Provided office number and ext. The patient returned my call and left a message to call her. 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 Provided office number and ext if she has any further questions. * Deloris Gutierrez PA-C - 05/13/2016 3:47 PM CDT I will need to discuss this with Dr. Gonzalez tomorrow. Can you please print a copy of the conversation and put it on my desk. I will let you know what he says tomorrow. Thanks Deloris * Belle Gonzalez RN - 05/13/2016 3:36 PM CDT The patient called and left a message she has some co-workers who will be on vacation. She stated she was informed by her employer she would have to work the 10:00 PM-6:30 schedule to cover the vacation. She stated her BB make her very tired and that is why she takes it at bedtime. 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 I returned her call and she stated as above and she informed me that her employer told her she would have to get a written statement excusing her from working this shift. 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 She stated this late shift is not good for her heart condition. I instructed the patient that I will inform 's PA.The patient voiced understanding and had no further questions. Message to 's PA. documented in this encounter Plan of Treatment Not on file documented as of this encounter Visit Diagnoses Not on filedocumented in this encounter Care Teams Legal Referee Relationship Specialty Start Date End Date Baldomero Dominguez MD [address] [place] [id number] PCP - General FAMILY PRACTICE 01/24/16 Cesar Gonzalez MD [address] [place] [address] [place] CARDIOVASCULAR DISEASE 01/24/16 documented as of this encounter
--- OUTSIDE RECORDS SUMMARY | 2024-07-11 07:04 | XMS_ITS | Encounter Summary ---
Author Organization [facility] Address [facility]. [place], [place] [id number] [place] [address] Care Team Providers Care Emissions Testing And Repair Technician Name Role Phone Baldomero Dominguez MD Primary Care Provider [phone] Cesra Gonzalez MD Unavailable Encounter Details Date Type Department Care Team (Late st Contact Info) Description 11/01/2014 [facility] [address] [place] [address] , Jayce Pinon MD Social History Tobacco [...] on filedocumented in this encounter Care Teams Emissions Testing And Repair Technician Relationship Specialty Start Date End Date Baldomero Dominguez MD [address] [facility] [address] [place] [address] PCP - General FAMILY PRACTICE 01/24/16 Cesar Gonzalez MD [address] [place] [address] EP [employer] Machine Operator CARDIOVASCULAR DISEASE 01/24/16 documented as of this encounter
--- OUTSIDE RECORDS SUMMARY | 2024-07-11 07:05 | XMS_ITS | Encounter Summary ---
Author Organization [facility] Address [address] [facility] [place] [address] Phone Care Team Providers Care Nursing Program Director Name Role Phone Baldomero Dominguez MD Primary Care Provider Reason for Visit * Auth/Cert (Routine) Specialty Diagnoses / Procedures Referred By Vianca montiel Referred To Contact Diagnoses LEFT KNEE PAIN Procedures ARTHROSCOPY KNEE El Rodríguez MD [address] [place] [id number] Phone: tel: fax: Referral ID Status Reason Start Date Expiration Date Visits Re quested Visits Authorized [id number] 1 1 Encounter Details Date Type Department Care Team (Late st Contact Info) Description 07/22/2022 7:40 AM TAX DIRECTOR - 07/22/2022 9:10 AM TAX DIRECTOR Surgery [facility] Periop [address] [place] [address] El Rodríguez MD [address] [place] [id number] LEFT KNEE ARTHROSCOPY, CHONDROPLASTY, AND ABRASION ARTHROPLASTY OF THE PATELLA Surgery Details Date/Time Status Location OR Service Patient Class Case Class Case Type Trauma Case? 07/22/2022 7:40 AM Posted [facility] MAIN OR [address] [place] [address] Ambulatory Surgery Panel 1 Procedure LRB Anes Op Region Wound Class Comments LEFT KNEE ARTHROSCOPY, CHOND ROPLASTY, AND ABRASION ARTHROPLASTY OF THE PATELLA Left General Knee Rosaline n ARTHROSCOPY LEFT KNEE WITH P ARTIAL, MEDIAL, AND LATERAL MENISCECTOMY Left General Knee Clean PARTIAL SYNOVECTOMY Left General Knee Clean Surgeon Surgeon Role Service Panel El Rodríguez MD Primary Orthopaedic 1 Special Needs Hx: SVT 5' 6 206# No COVID test needed documented in this encounter Social History Tobacco Use Types Packs/Day Years Used Date Smoking Tobacco: Never Smokeless Tobacco: Never Tobacco Cessation:Counseling Given: Not Answered Alcohol Use Standard Drinks/Week Comments Not Asked 0 (1 standard drink = 0.6 oz pur e alcohol) occassionally Comments Unknown Sex and Gender Information Value Date Recorded Sex Assigned at Not on file Legal Sex Female 12:43 PM CDT Gender Identity Not on file Sexual Orientation Not on file COVID-19 Exposure Response Date Recorded In the last 10 days, have yo u been in contact with someone who was confirmed or suspected to have Coronavirus/COVID-19? No / Unsure 07/22/2022 6:18 AM TAX DIRECTOR documented as of this encounter Last Filed Vital Signs Vital Sign Reading Time Taken Comments Blood Pressure 129/75 07/22/2022 9:04 AM TAX DIRECTOR Pulse 71 07/22/2022 9:04 AM TAX DIRECTOR Temperature 35.9 ??C (96.6 ??F) 07/22/2022 9:04 AM CS T Respiratory Rate 9 07/22/2022 9:04 AM TAX DIRECTOR Oxygen Saturation 98% 07/22/2022 9:04 AM TAX DIRECTOR Inhaled Oxygen Concentration - - Weight 94 kg (207 lb 4 oz) 07/22/2022 6:51 AM CS T Height 167.6 cm (5' 6 ) 07/22/2022 6:51 AM TAX DIRECTOR Body Mass Index 33.45 07/22/2022 6:51 AM TAX DIRECTOR documented in this encounter Discharge Instructions * Discharge Instructions* Gertrudis Harrington RN - 07/22/2022 9:08 AM TAX DIRECTOR GENERAL GUIDELINES FOR MINIMIZING NAUSEA: Do not take pain medication on an empty stomach Eat small portions of foods because they are easier to digest and move through your stomach much faster. Be sure you are staying hydrated. Clear, cool beverages are recommended. Only take what you can tolerate. You might like trying clear soups, flavored gelatin, carbonated beverages, popsicles and ice cubes made of frozen drinks. Avoid the smells of cooking food, especially greasy ones, as the smells make make you nauseated. DIRECTOR * Attachments The following attachments cannot be sent through Care Everywhere. * Knee Arthroscopy Care After (Nicaraguan) documented in this encounter Medications at Time of Discharge CALCIUM PO Take 1 Tablet by mouth daily. Cyanocobalamin (VITAMIN B 12 PO) Take 1 Tablet by mouth daily. Ferrous Sulfate (IRON PO) Take 1 Tablet by mouth daily as needed. Ibuprofen 200 MG Capsule Take 2 Capsules by mouth as needed. MULTIPLE VITAMIN PO Take 1 Tablet by mouth daily. documented as of this encounter H&P Notes * El Rodríguez MD - 07/22/2022 7:24 AM CST I have reviewed Rowena Quesada History and Physical, re-examined her, and no change has occurred in her condition since the H&P was completed. I have explained the risks, benefits, and alternatives of the procedure to the patient and family. They wish to proceed with procedure. Risks of left knee arthroscopy include infection, blood loss, nerve or vessel damage, anesthesia, blood clots, heart attack, stroke, , failure to relieve symptoms, recurrence of symptoms, stiffness of the knee, and need for revision surgery and treatment including future total knee arthroplasty. Even with anideal surgical result she will never have a completely normal left knee again. No guarantees can begiven. She understands and agrees to proceed. El Rodríguez MD 07/22/2022 7:24 AM TAX DIRECTOR DIRECTOR Source Note - El Rodríguez MD - 07/21/2022 9:16 AM TAX DIRECTOR documented in this encounter Nursing Notes * Ibeth Sood RN - 07/22/2022 8:26 AM CST WHO Safety Checklist Team Debriefing completed. Additional information discussed during debrief, inrelation to patient specific assessment, includes blood loss, glycemic control, pain management, and venous thromboembolism prophylaxis, as needed. All members of the surgical team participated in the debriefing process, and each records information as applicable in their respective areas of documen tation. DIRECTOR * Ibeth Sood RN - 07/22/2022 8:25 AM CST Specimen Transported to OR SPECIMEN ROOM by A KLAUDIA RN DIRECTOR documented in this encounter OR Notes * OR Surgeon - El Rodríguez MD - 07/22/2022 7:38 AM CST POST-OPERATIVE PROCEDURE NOTE Date of Procedure: 07/22/2022 Surgeon(s): Surgeon(s) and Role: * El Rodríguez MD - Primary Anesthesia: General Pre-operative Diagnosis: 1. Torn medial meniscus of left knee 2. Synovitis of left knee with joint effusion 3. Degenerative arthritis of left knee joint with varus deformity Post-operative Diagnosis: 1. Tears of the medial and lateral menisci of the left knee 2. Synovitis of left knee with joint effusion 3. 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 Grade 3 chondromalacia of the medial femoral condyle, medial tibial plateau and patella left knee 5. Grade 2 chondromalacia of the lateral tibial plateau left knee 6. Bone spur/osteophyte on the inferior pole of patella left knee Procedure(s): 1. Arthroscopy of left knee with partial medial and lateral meniscectomies 2. Arthroscopic partial synovectomy of left knee 3. Arthroscopic chondroplasty of left knee including the patella, trochlear groove, medial femoral condyle, medial tibial plateau, and lateral tibial plateau 4. Abrasion arthroplasty of left patella with excision of inferior osteophyte from the patella Estimated Blood Loss: * No values recorded between 07/22/2022 7:28 AM and 07/22/2022 7:38 AM * 3 mLML Specimens: No specimens collected Complications: * No complications entered in OR log * Total Operative Time: * Missing procedure start or end time(s) * Brief history: This is a 57-year-old female complaining of chronic progressive pain in her left knee. She has failed to improve with conservative treatment and wants to proceed with surgical treatment. Risks, benefits, and alternative treatments have been discussed in detail. Risks of surgery include infection, blood loss, nerve or vessel damage, anesthesia, blood clots, heart attack, stroke, , failure to relieve symptoms, recurrence of symptoms, and need for revision surgery andtreatment including future need for total knee arthroplasty. Even with an ideal surgical result baudilio never have a completely normal left knee again. No guarantees can be given. She understands and agrees to proceed. She has a history of left knee arthroscopy performed on 03/22/2020. Operative description: The patient was taken to the operating room and placed under general anesthesia by Dr. Kessler. She was given Ancef 2 g IV piggyback. She was placed supine on the operating table and all pressure points were carefully padded. A Ulysses stocking and pneumatic stocking were applied to the right lower extremity. The left lower extremity was prepped with alcohol and then with DuraPrep and a sterile field was obtained. Examination of the left knee demonstrated passive range of motion from 0-110 degrees. There was a small joint effusion. There were well-healed arthroscopic scars. Alexis test was negative. Anterior and posterior drawer tests were negative. The knee was stable to varus and valgus stress. Pivot shift test was negative. There was mild varus deformity. She had a heavy obese leg. I could not palpate a popliteal cyst. I exsanguinated the limb with an Esmarch and raised the tourniquet to 300 mm Hg. I made an anterolateral arthroscopic portal and anteromedial instrument portal. A joint effusion was noted and yellow clear synovial fluid was drained from the knee. Examination of the patellofemoral compartment demonstrated moderate synovitis. There was extensive grade 4 chondromalacia of the trochlear groove and grade 3 chondromalacia of the patella with an inferior osteophyte on the patella. Examination of the medial joint compartment demonstrated tearing and fraying of the posterior 50% of the medial meniscus. The meniscus was torn along the inner rim. The peripheral portion of the meniscus was intact. There was extensive grade 3 chondromalacia of the weight-bearing surfaces of the medial femoral condyle and medial tibial plateau. Synovitis of the medial compartment was noted. I performed partial medial meniscectomy with the punches, shaver, and vapor trimming the medial meniscus back to a smooth stable rim. Chondroplasty of the medial femoral condyle medial tibial plateauwas performed with the shaver and vapor. Partial synovectomy was performed with the shaver and vapor. Examination of the notch demonstrated synovitis. There was grade 2 chondromalacia of the medial aspect of the lateral femoral condyle. The ACL and PCL were grossly intact. Chondroplasty of the lateral femoral condyle was performed with the shaver and vapor. Partial synovectomy was performed with the shaver and vapor. Examination of the lateral joint compartment the figure 4 position demonstrated tearing and frayingof the anterior 3rd of the lateral meniscus. The meniscus was torn along the inner rim. The posterior 2/3 of the meniscus was grossly intact. Grade 2 chondromalacia of the weight-bearing surface of the lateral tibial plateau was noted. There was minimal fibrillation of the articular cartilage of the lateral femoral condyle. Partial lateral meniscectomy was performed with the shaver and vapor trimming the lateral meniscus back to a stable rim. Chondroplasty of the lateral tibial plateau was performed with the shaver and vapor. Attention was turned back to the patellofemoral compartment. Chondroplasty of the patella and trochlear groove was performed with the shaver and vapor. Partial synovectomy was performed with the shaver and vapor. Abrasion arthroplasty was performed of the patella to remove the inferior spur/osteophyte from the patella using an arthroscopic high speed bur. The knee was copiously irrigated to remove loose debris. The tourniquet was let down a total tourniquet time of 18 minutes. Hemostasis was assured with the vapor. Fluid was drained from the knee. Thearthroscopic instruments were removed. The skin portals were closed with interrupted 3-0 nylon suture along with Exofin skin adhesive. 1% ropivacaine was injected into the skin incisions for postoperative analgesia. Sterile Adaptic and gauze dressings were applied along with an ABD, sterile soft roll, and Justus wrap. The patient was awakened from anesthesia and taken to the recovery room stable condition. Estimatedblood loss was about 3 mL. All sponge and needle counts were correct. There was good capillary refill to the foot. Postop instructions were given to the patient. I advised weight-bearing as toleratedon the left leg with use of a walker for the next week. She may do range of motion as tolerated to t he left knee. Surgeon: El Rodríguez MD, 07/22/2022, 7:38 AM TAX DIRECTOR DIRECTOR DIRECTOR documented in this encounter Miscellaneous Notes * Plan of Care - Gertrudis Harrington RN - 07/22/2022 9:52 AM CST Problem: Adult Inpatient Plan of Care Goal: Plan of Care Review 07/22/2022950 by Gertrudis Harrington RN Outcome: Outcome Achieved Flowsheets Taken 07/22/2022950 Today's Goal: Patient has met discharge criteria. Outcome Evaluation: Patient ready for discharge. Taken 07/22/2022655 Plan of Care Reviewed With: patient child Progress: progress toward functional goals as expected Does the patient need assistance with discharge and/or transitioning to the next level of care?: No, no needs anticipated 07/22/2022655 by Gertrudis Harrington RN Outcome: Ongoing (see interventions/notes) Flowsheets (Taken 07/22/2022655) Plan of Care Reviewed With: patient child Progress: progress toward functional goals as expected Today's Goal: Go home today. Outcome Evaluation: Patient ready for OR. Does the patient need assistance with discharge and/or transitioning to the next level of care?: No, no needs anticipated Goal: Patient-Specific Goal (Individualized) 07/22/2022950 by Gertrudis Harrington RN Outcome: Outcome Achieved Flowsheets (Taken 07/22/2022950) Today's Goal: Patient has met discharge criteria. 07/22/2022655 by Gertrudis Harrington RN Outcome: Ongoing (see interventions/notes) Flowsheets (Taken 07/22/2022655) Today's Goal: Go home today. Individualized Care Needs: Hx of Sleep apnea. Goal: Absence of Hospital-Acquired Illness or Injury 07/22/2022950 by Gertrudis Harrington RN Outcome: Outcome Achieved 07/22/2022655 by Gertrudis Harrington RN Outcome: Ongoing (see interventions/notes) Intervention: Prevent and Manage VTE (Venous Thromboembolism) Risk 07/22/2022950 by Gertrudis Harrington RN Flowsheets (Taken 07/22/2022 06) VTE Prevention/Management: compression stockings on 07/22/2022655 by Gertrudis Harrington RN Flowsheets (Taken 07/22/2022655) VTE Prevention/Management: compression stockings on Goal: Optimal Comfort and Wellbeing 07/22/2022 09 by Gertrudis Harrington RN Outcome: Outcome Achieved 07/22/2022655 by Gertrudis Harrington RN Outcome: Ongoing (see interventions/notes) Intervention: Monitor Pain and Promote Comfort Flowsheets (Taken 07/22/2022 0930) Pain Management Interventions: pain management plan reviewed with patient/caregiver Intervention: Provide Person-Centered Care 07/22/2022950 by Gertrudis Harrington RN Flowsheets (Taken 07/22/2022655) Trust Relationship/Rapport: care explained safe/supportive environment facilitated questions encouraged 07/22/2022655 by Gertrudis Harrington RN Flowsheets (Taken 07/22/2022655) Trust Relationship/Rapport: care explained safe/supportive environment facilitated questions encouraged Goal: Readiness for Transition of Care 07/22/2022950 by Gertrudis Harrington RN Outcome: Outcome Achieved 07/22/2022655 by Gertrudis Harrington RN Outcome: Ongoing (see interventions/notes) Intervention: Mutually Develop Transition Plan 07/22/2022950 by Gertrudis Harrington RN Flowsheets (Taken 07/22/2022655) Readmission Within the Last 30 Days: no previous admission in last 30 days 07/22/2022655 by Gertrudis Harrington RN Flowsheets (Taken 07/22/2022655) Readmission Within the Last 30 Days: no previous admission in last 30 days DIRECTOR * Plan of Care - Priti Rios RN - 07/22/2022 8:41 AM CST Patient will be discharged from PACU when meeting criteria. DIRECTOR * Plan of Care - Gertrudis Harrington RN - 07/22/2022 6:57 AM CST Problem: Adult Inpatient Plan of Care Goal: Plan of Care Review Outcome: Ongoing (see interventions/notes) Flowsheets (Taken 07/22/2022 06) Plan of Care Reviewed With: patient child Progress: progress toward functional goals as expected Today's Goal: Go home today. Outcome Evaluation: Patient ready for OR. Does the patient need assistance with discharge and/or transitioning to the next level of care?: No, no needs anticipated Goal: Patient-Specific Goal (Individualized) Outcome: Ongoing (see interventions/notes) Flowsheets (Taken 07/22/2022 0656) Today's Goal: Go home today. Individualized Care Needs: Hx of Sleep apnea. Goal: Absence of Hospital-Acquired Illness or Injury Outcome: Ongoing (see interventions/notes) Intervention: Prevent and Manage VTE (Venous Thromboembolism) Risk Flowsheets (Taken 07/22/2022655) VTE Prevention/Management: compression stockings on Goal: Optimal Comfort and Wellbeing Outcome: Ongoing (see interventions/notes) Intervention: Provide Person-Centered Care Flowsheets (Taken 07/22/2022 0656) Trust Relationship/Rapport: care explained safe/supportive environment facilitated questions encouraged Goal: Readiness for Transition of Care Outcome: Ongoing (see interventions/notes) Intervention: Mutually Develop Transition Plan Flowsheets (Taken 07/22/2022 06) Readmission Within the Last 30 Days: no previous admission in last 30 days DIRECTOR * Interdisciplinary - Lina Patricia RN - 07/14/2022 12:29 PM CST Denies having COVID in past 90 days. No current COVID symptoms No COVID test needed DIRECTOR * Interdisciplinary - Lina Patricia RN - 07/14/2022 12:09 PM CST [facility] ADULT TEACHING Patient Name: Rowena Quesada : 1965 [facility]#: [id number] Person Educated Patient Ready to Learn Yes Teaching Method Phone The Day of Surgery: Call your physician if your physical condition changes (cold, fever, flu). Do not come to the hospital without first calling your physician. Do not eat or drink (no gum, mints, water etc.) unless instructed to do so for at least 8 hours prior to arrival to the hospital. Medications can be taken with a small sip of water. Do not drink any alcohol 24 hours prior to surgery if applicable. Do not smoke for 24 hrs prior to surgery if applicable. Bring CPAP/BIPAP if applicable. Take a shower or bath. Do not apply make-up Wear comfortable, loose fitting clothing Instruction to leave all jewelry at home including wedding/engagement rings or any body piercing jewelry. Leave all valuables at home. Children ages 17 and under must be accompanied by a parent or legal guardian in the hospital at alltimes. Follow your surgeon's instructions for arrival time. If you have questions concerning arrival time,call your surgeon's office. Detailed instructions given for arrival location and parking. Arrange for a responsible person to accompany you, drive you home and stay with you for the first 24 hours following your surgery. If you have not made these arrangements you may be at risk of your surgery being cancelled. Follow directions regarding medications to Take or Hold. It is very important to follow directions from your surgeon's office on Diabetic medication or Blood Thinners. Only 2 adults over the age of 16 will be allowed to accompany you to the [facility]. No children under theage of 16 will be allowed in the [facility] unless they are the patient. If the patient chooses to bring their children under the age of 16, an adult must accompany those children in the surgery waiting room and cannot leave them unattended. During the flu season: refer to the visitation restriction guidelines implemented during that season if applicable. Fall Prevention Teaching The Day of Surgery: ?? Your safety while you are in the hospital is very important to us. Following surgery, you might be at increased risk for falling for several reasons: -The hospital environment is unfamiliar. It???s not the same as being at home -You may be weaker than you realize. -You may be connected to lines or equipment that can cause you to trip. -You may be on medications that make you drowsy or dizzy. We know this can happen especially with pain medication and anesthesia. We want to partner with you in the hospital to make sure you are safe -Please do not feel hesitant to ask for help while in the hospital. You will - need extra help untilyou get stronger especially with walking and using the bathroom. -Pay close attention to what the doctors and nurses tell you about your risk of falling. -A fall can mean a longer hospital stay. Also, injuries from a fall can affect your health for the rest of your life. Some things the nurses may do to keep you safe are: -Have you use the call light for help whenever you get out of bed. -Wear non-skid slippers to keep you from slipping on the floors -Use a special belt that wraps around your waist so we can help steady you when you walk -Activate an alarm on your bed so we know if you are getting up in case you forget to use your calllight -Stay in the bathroom with you in case you become dizzy or light headed Patient Response: Verbalizes Understanding Patient assessed for translator/interpreter during the preop interview and appropriate interventions taken if applicable. DIRECTOR documented in this encounter Plan of Treatment Not on file documented as of this encounter Procedures Procedure Name Priority Date/Time Associated Diagnosis Comments PATHOLOGY SURGICAL Routine 07/22/2022 8: 15 AM TAX DIRECTOR SYNOVECTOMY 07/22/2022 7:08 AM TAX DIRECTOR LEFT KNEE PAIN, TORN MEDIAL MENISCUS OF THE LEFT KNEE,SYNOVITISM OF THE LEFT KNEE, AND DEGENERATIVE ARTHRITIS OF THE LEFT KNEE?? Special Needs Hx: SVT 5' 6 206# No COVID test needed ARTHROSCOPY KNEE MENISCECTOMY 07/22/2022 7:08 AM TAX DIRECTOR LEFT KNEE PAIN, TORN MEDIAL MENISCUS OF THE LEFT KNEE,SYNOVITISM OF THE LEFT KNEE, AND DEGENERATIVE ARTHRITIS OF THE LEFT KNEE?? Special Needs Hx: SVT 5' 6 206# No COVID test needed ARTHROSCOPY KNEE 07/22/2022 7:08 AM TAX DIRECTOR LEFT KNEE PAIN, TORN MEDIAL MENISCUS OF THE LEFT KNEE,SYNOVITISM OF THE LEFT KNEE, AND DEGENERATIVE ARTHRITIS OF THE LEFT KNEE?? Special Needs Hx: SVT 5' 6 206# No COVID test needed UR TEST QUAL STAT 07/22/2022 6:51 AM TAX DIRECTOR documented in this encounter Results * Pathology Surgical (07/22/2022 8:15 AM TAX DIRECTOR) Case Report Surgical Pathology Report ? Case: [id number] ? Authorizing Provider: ??El Rodríguez MD ?Collected: ? 07/22/2022 08:15 AM ? Ordering Location: ? [facility] ? Received: ?07/22/2022 12:56 PM ? [facility] ? Main OR ? Pathologist: ? Yobani Castellanos MD ? Specimen: ?Knee, ARTHROSCOPIC SHAVINGS, LEFT KNEE ? 07/23/2022 8:18 AM [facility] FINAL DIAGNOSIS TISSUE, LEFT KNEE, ARTHROSCOPIC SHAVINGS: - FRAGMENTS OF ARTICULAR CARTILAGE, BONE, SYNOVIUM, AND FIBROVASCULAR CONNECTIVE TISSUE. - NEGATIVE FOR SIGNIFICANT ACUTE INFLAMMATION OR CRYSTALLINE MATERIAL. 07/23/2022 8:18 AM [facility] Pre-Operative Diagnosis LEFT KNEE PAIN 07/23/2022 8:18 AM [facility] Gross Description A. ARTHROSCOPIC SHAVINGS, LEFT KNEE The specimen presents in a single formalin container for gross and microscopic examination, labeled with the patient's name, Rowena Quesada, and designated arthroscopic shavings left knee. The specimen consists of a rhina tissue filtration bag together with less than 1 gram of pale yellow-white tissue fragments. Medical Billing Representative sample submitted in cassette A1. KS/sb 07/23/2022 8:18 AM [facility] Microscopic Description Microscopic examination was performed which supports the final diagnosis. All control tissues stained appropriately. 07/23/2022 8:18 AM [facility] Tissue KNEE JOINT SYNOVIAL FLUID / Unknown 07/22/2022 8:15 AM TAX DIRECTOR 07/22/2022 12:56 PM TAX DIRECTOR us El Rodríguez MD PATHOLOGY/CYTOLOGY ORDERABLES Fi nal Result [facility] [place] [address] * Ur Test Qual (07/22/2022 6:51 AM TAX DIRECTOR) PREG TEST,MONOCLONA L Negative 07/22/2022 7:09 AM TAX DIRECTOR [facility] Urine Non-Phlebotomy Collection / Unknown 07/22/2022 6:51 AM TAX DIRECTOR 07/22/2022 6:56 AM TAX DIRECTOR us El Rodríguez MD URINE ORDERABLES Final Result [facility] [place] [address] documented in this encounter Visit Diagnoses Not on filedocumented in this encounter Administered Medications Inactive Administered Medications - up to 3 most recent administrations Medication Order MAR Action Action Date Dose Rate Site acetaminophen (TYLENOL) tablet 975 mg 975 mg, Oral, ONCE, 1 dose, On Wed07/22/22 at 0700, Maximum dose of acetaminophen is 4000 mg from all sources in 24 hours., PRE-OP (SURGERY) Given 07/22/2022 6:59 AM TAX DIRECTOR 975 mg ACETAMINOPHEN 325 MG PO TABS 1 dose, Starting on Wed07/22/22 at 0636, Until Wed07/22/22 at 0659, Created by cabinet override celecoxib (CeleBREX) capsule 200 mg 200 mg, Oral, ONCE, 1 dose, On Wed07/22/22 at 0700, PRE-OP (SURGERY) Given 07/22/2022 6:59 AM TAX DIRECTOR 200 mg CELECOXIB 200 MG PO CAPS 1 dose, Starting on Wed07/22/22 at 0636, Until Wed07/22/22 at 0659, Created by cabinet override dexamethasone (DECADRON) injection 8 mg 8 mg, Intravenous, ONCE, 1 dose, On Wed07/22/22 at 0700, PRE-OP (SURGERY) Given 07/22/2022 7:03 AM TAX DIRECTOR 8 mg DEXAMETHASONE SODIUM PHOSPHATE 4 MG/ML IJ SOLN 1 dose, Starting on Wed07/22/22 at 0637, Until Wed07/22/22 at 0703, Created by cabinet override FENTANYL CITRATE (PF) 100 MCG/2ML IJ SOLN 1 dose, Starting on Wed07/22/22 at 0650, Until Wed07/22/22 at 1214, Created by cabinet override HYDROcodone-acetaminophe n (NORCO) 5-325 MG per tablet 1-2 Tablet 1-2 Tablet, Oral, EVERY 4 HOURS PRN, Starting on Wed07/22/22 at 0737, Until Wed07/22/22 at 1214, Moderate pain or more severe pain if patient requests, Maximum dose of acetaminophen is 4000 mg from all sources in 24 hours.If pain not effectively managed, then contact provider to discuss possibly 1) adding scheduled opioid dosing or non-opioid pain treatments, 2) increasing dosage, or 3) changing to S IRON WORKER. Given 07/22/2022 8:52 AM TAX DIRECTOR 1 Tablet lactated ringers infusion at 20 mL/hr, Intravenous, CONTINUOUS, Starting on Wed07/22/22 at 0700, Until Wed07/22/22 at 1214, PRE-OP (SURGERY) New Bag 07/22/2022 7:03 AM TAX DIRECTOR 20 mL/hr MIDAZOLAM HCL (PF) 2 MG/2ML IJ SOLN 1 dose, Starting on Wed07/22/22 at 0650, Until Wed07/22/22 at 1214, Created by cabinet override ondansetron (ZOFRAN) injection 4 mg 4 mg, Intravenous, ONCE, 1 dose, On Wed07/22/22 at 0700, PRE-OP (SURGERY) Given 07/22/2022 7:03 AM TAX DIRECTOR 4 mg ONDANSETRON HCL 4 MG/2ML IJ SOLN 1 dose, Starting on Wed07/22/22 at 0637, Until Wed07/22/22 at 0703, Created by cabinet override ropivacaine (NAROPIN) injection ONCE (in OR), Starting on Wed07/22/22 at 0825, Until Wed07/22/22 at 0833, INTRA-OP Given 07/22/2022 8:25 AM TAX DIRECTOR 20 mL Operative Site documented in this encounter Active and Recently Administered Medications Times are shown in TAX DIRECTOR. Scheduled Medication Order 07/20/2022 07/21/2022 07/22/2022 acetaminophen (TYLENOL) tablet 975 mg (COMPLETED) 975 mg, Oral, ONCE, 1 dose, On Wed07/22/22 at 0700, Maximum dose of acetaminophen is 4000 mg from all sources in 24 hours., PRE-OP (SURGERY) 0659 (Given - Provid er: Gertrudis Harrington RN) ceFAZolin (ANCEF) injection 2 g (COMPLETED) 2 g, Intravenous, ONCE, 1 dose, On Wed07/22/22 at 0700, Administer over 5 Minutes, INTRA-OP, Indications: Perioperative Pharmacoprophylaxis 0735 (Given - Provid er: Cliff Kessler DO) celecoxib (CeleBREX) capsule 200 mg (COMPLETED) 200 mg, Oral, ONCE, 1 dose, On Wed07/22/22 at 0700, PRE-OP (SURGERY) 0659 (Given - Provid er: Gertrudis Harrington RN) dexamethasone (DECADRON) injection 8 mg (COMPLETED) 8 mg, Intravenous, ONCE, 1 dose, On Wed07/22/22 at 0700, PRE-OP (SURGERY) 0703 (Given - Provid er: Gertrudis Harrington RN) ondansetron (ZOFRAN) injection 4 mg (COMPLETED) 4 mg, Intravenous, ONCE, 1 dose, On Wed07/22/22 at 0700, PRE-OP (SURGERY) 0703 (Given - Provid er: Gertrudis Harrington RN) Continuous Medication Order 07/20/2022 07/21/2022 07/22/2022 lactated ringers infusion at 20 mL/hr, Intravenous, CONTINUOUS, Starting on Wed07/22/22 at 0700, Until Wed07/22/22 at 1214, PRE-OP (SURGERY) 07 (New Bag - Prov ider: Gertrudis Harrington RN)0728 (Continued by Anesthesia - Provider: Cliff Kessler DO)0829 (Anesthesia Volume Adjustment - Provider: Cliff Kessler DO)0930 (Stopped - Provider: Gertrudis Harrington RN) PRN Medication Order 07/20/2022 07/21/2022 07/22/2022 HYDROcodone-acetaminophen (NORCO) 5-325 MG per tablet 1-2 Tablet 1-2 Tablet, Oral, EVERY 4 HOURS PRN, Starting on Wed07/22/22 at 0737, Until Wed07/22/22 at 1214, Moderate pain or more severe pain if patient requests, Maximum dose of acetaminophen is 4000 mg from all sources in 24 hours.If pain not effectively managed, then contact provider to discuss possibly 1) adding scheduled opioid dosing or non-opioid pain treatments, 2) increasing dosage, or 3) changing to S IRON WORKER. 0852 (Given - Provid er: Priti Rios RN) ropivacaine (NAROPIN) injection (CANCELED) ONCE (in OR), Starting on Wed07/22/22 at 0825, Until Wed07/22/22 at 0833, INTRA-OP 0825 (Given - Provid er: El Rodríguez MD) No Frequency Medication Order 07/20/2022 07/21/2022 07/22/2022 FENTANYL CITRATE (PF) 100 MCG/2ML IJ SOLN 1 dose, Starting on Wed07/22/22 at 0650, Until Wed07/22/22 at 1214, Created by cabinet override MIDAZOLAM HCL (PF) 2 MG/2ML IJ SOLN 1 dose, Starting on Wed07/22/22 at 0650, Until Wed07/22/22 at 1214, Created by cabinet override documented in this encounter Care Teams Nursing Program Director Relationship Specialty Start Date End Date Baldomero Dominguez MD [address] [place] [phone] PCP - General Family Medicine 03/20/20 documented as of this encounter
--- OUTSIDE RECORDS SUMMARY | 2024-07-11 07:05 | XMS_ITS | Clinical Summary ---
Author Organization [facility] Address [address] [place] [address] Phone Care Team Providers Care Front Desk Monitor Name Role Phone Baldomero Dominguez MD Primary Care Provider [phone] Allergies No known active allergies Medications Ibuprofen 200 MG Capsule Take 2 Capsules by mouth as needed. Active CALCIUM PO Take 1 Tablet by mouth daily. Active Cyanocobalamin (VITAMIN B 12 PO) Take 1 Tablet by mouth daily. Active MULTIPLE VITAMIN PO Take 1 Tablet by mouth daily. Active Ferrous Sulfate (IRON PO) Take 1 Tablet by mouth daily as needed. Active Active Problems Problem Noted Date Diagnosed Date Tear of medial meniscus of left knee, initial en counter 07/22/2022 Primary osteoarthritis of left knee 07/22/2022 Family History Medical History Relation Name Comments No Known Problems Father Cancer Mother female Diabetes Mother Relation Name Status Comments Father Mother Alive Social History Tobacco Use Types Packs/Day Years [...] Sign Reading Time Taken Comments Blood Pressure 120/69 07/22/2022 9:30 AM EDITORIAL WRITER Pulse 58 07/22/2022 9:30 AM EDITORIAL WRITER Temperature 36.6 ??C (97.8 ??F) 07/22/2022 9:30 AM CS T Respiratory Rate 16 07/22/2022 9:30 AM EDITORIAL WRITER Oxygen Saturation 95% 07/22/2022 9:30 AM EDITORIAL WRITER Inhaled Oxygen Concentration - - Weight 94 kg (207 lb 4 oz) 07/22/2022 6:51 AM CS T Height 167.6 cm (5' 6 ) 07/22/2022 6:51 AM EDITORIAL WRITER Body Mass Index 33.45 07/22/2022 6:51 AM EDITORIAL WRITER Plan of Treatment Health Maintenance Due Date Last Done Comments Hepatitis C Virus (HCV) Screening 1965 TdaP Immunization 1965 Hepatitis B Immunization (1 of 3 - 19+ 3-dose series) 1986 Pap Smear 1988 Cervical Cancer Screening (CCS) 1997 HPV/Cotest 1997 Colonoscopy 2012 Colorectal Cancer Screening 2012 Cologuard 2017 Immunochemical Fecal Occult Blood 2017 Mammogram 2017 Zoster Immunization (1 of 2) 2017 Influenza Immunization (#1) 03/26/202405/27, 06/19/2020 SARS-COV-2 Immunization ( season) 2024 05/09/2021, 04/18/2021 Respiratory Syncytial Virus (RSV) Immunization (Adult) (1 - 1-dose 75+ series) 2042 Meningococcal Immunization (ACWY) Aged Out No longer eligible b ased on patient's age to complete this topic Pneumococcal Immunization Combined Aged Out No longer eligible b ased on patient's age to complete this topic Rotavirus Immunization Aged Out No lo nger eligible based on patient's age to complete this topic Insurance Care Teams Front Desk Monitor Relationship Specialty Start Date End Date Baldomero Dominguez MD [address] [address] PCP - General Family Medicine 03/20/20
--- OUTSIDE RECORDS SUMMARY | 2024-07-11 07:05 | XMS_ITS | Encounter Summary ---
Author Organization [employer] Care Team Providers Care Finger Cobbler Name Role Phone Baldomero Dominguez MD Primary Care Provider [phone] Encounter Details Date Type Department Care Team (Latest Contact Info) Description 07/22/2022 Travel Social History Tobacco Use Types Packs/Day Years Used Date Smoking Tobacco: Never Smokeless Tobacco: Never Alcohol Use Standard Drinks/Week Comments Not Asked [...] Coronavirus/COVID-19? No / Unsure 07/22/2022 6:18 AM BAG MACHINE SET UP OPERATOR documented as of this encounter Plan of Treatment Not on file documented as of this encounter Visit Diagnoses Not on filedocumented in this encounter Care Teams Finger Cobbler Relationship Specialty Start Date End Date Baldomero Dominguez MD [address] [address] PCP - General Family Medicine 03/20/20 documented as of this encounter
--- OUTSIDE RECORDS SUMMARY | 2024-07-11 07:06 | XMS_ITS | Encounter Summary ---
Author Organization [facility] Address [address] [facility] [facility] [place] [address] Phone Care Team Providers Care Machine Ironer Name Role Phone Baldomero Dominguez MD Primary Care Provider [phone] Reason for Visit * Auth/Cert (Routine) Specialty Diagnoses / Procedures Referred By Vianca montiel Referred To Contact Diagnoses LEFT KNEE PAIN Procedures ARTHROSCOPY KNEE El Rodríguez MD [address] [place] [address] Phone: tel: fax: Referral ID Status Reason Start Date Expiration Date Visits Re quested Visits Authorized [id number] 1 1 Encounter Details Date Type Department Care Team (Latest Contact Info) Description 07/22/2022 6:18 AM MUNICIPAL CLERK - 07/22/2022 10:05 AM [facility] Hospital Encounter [facility] Preop/Pacu II [address] [place] [address] El Rodríguez MD [address] [place] [phone] Tear of medial meniscus of left knee, initial encounter Discharge Disposition: Discharged to home or Selfcare Social History Tobacco Use Types Packs/Day Years [...] Coronavirus/COVID-19? No / Unsure 07/22/2022 6:18 AM MUNICIPAL CLERK documented as of this encounter Last Filed Vital Signs Vital Sign Reading Time Taken Comments Blood Pressure 120/69 07/22/2022 9:30 AM MUNICIPAL CLERK Pulse 58 07/22/2022 9:30 AM MUNICIPAL CLERK Temperature 36.6 ??C (97.8 ??F) 07/22/2022 9:30 AM CS T Respiratory Rate 16 07/22/2022 9:30 AM MUNICIPAL CLERK Oxygen Saturation 95% 07/22/2022 9:30 AM MUNICIPAL CLERK Inhaled Oxygen Concentration - - Weight 94 kg (207 lb 4 oz) 07/22/2022 6:51 AM CS T Height 167.6 cm (5' 6 ) 07/22/2022 6:51 AM MUNICIPAL CLERK Body Mass Index 33.45 07/22/2022 6:51 AM MUNICIPAL CLERK documented in this encounter Discharge Instructions * Discharge Instructions* Gertrudis Harrington RN - 07/22/2022 9:08 AM MUNICIPAL CLERK GENERAL GUIDELINES FOR MINIMIZING NAUSEA: Do not [...] as the smells make make you nauseated. CIPAL CLERK * Attachments The following attachments cannot be sent through Care Everywhere. * Knee Arthroscopy Care After ([place]) documented in this encounter Medications at Time [...] proceed. El Rodríguez MD 07/22/2022 7:24 AM MUNICIPAL CLERK CIPAL CLERK Source Note - El Rodríguez MD - 07/21/2022 9:16 AM MUNICIPAL CLERK documented in this encounter Nursing Notes * [...] in their respective areas of documen tation. CIPAL CLERK * Ibeth Sood RN - 07/22/2022 8:25 AM CST Specimen Transported to OR SPECIMEN ROOM by A KLAUDIA RODRIGUEZ CIPAL CLERK documented in this encounter OR Notes * [...] arthroplasty. Even with an ideal surgical result shewill never have a completely normal left knee [...] Surgeon: El Rodríguez MD, 07/22/2022, 7:38 AM MUNICIPAL CLERK CIPAL CLERK CIPAL CLERK documented in this encounter Miscellaneous Notes * Plan of Care - Gertrudis Harrington RN - 07/22/2022 9:52 AM CST Problem: Adult Inpatient Plan of Care Goal: Plan of Care Review 07/22/2022 0951 by Gertrudis Harrington RN Outcome: Outcome Achieved [...] (Taken 07/22/2022655) VTE Prevention/Management: compression stockings on 07/22/2022655 by Gertrudis Harrington RN Flowsheets (Taken 07/22/2022655) VTE Prevention/Management: compression stockings on Goal: Optimal Comfort and Wellbeing 07/22/2022950 by Gertrudis Harrington RN Outcome: Outcome [...] no previous admission in last 30 days CIPAL CLERK * Plan of Care - Priti Rios RN - 07/22/2022 8:41 AM CST Patient will be discharged from PACU when meeting criteria. CIPAL CLERK * Plan of Care - Gertrudis Harrington RN - 07/22/2022 6:57 AM CST Problem: Adult Inpatient Plan of Care Goal: Plan of Care Review Outcome: Ongoing (see interventions/notes) Flowsheets (Taken 07/22/2022655) [...] Manage VTE (Venous Thromboembolism) Risk Flowsheets (Taken 07/22/2022 0656) VTE Prevention/Management: compression stockings on Goal: Optimal Comfort and Wellbeing Outcome: Ongoing (see interventions/notes) Intervention: Provide Person-Centered Care Flowsheets (Taken 07/22/2022 0656) Trust Relationship/Rapport: care explained safe/supportive environment facilitated questions encouraged Goal: Readiness for Transition of Care Outcome: Ongoing (see interventions/notes) Intervention: Mutually Develop Transition Plan Flowsheets (Taken 07/22/2022 0656) Readmission Within the Last 30 Days: no previous admission in last 30 days CIPAL CLERK * Interdisciplinary - Lina Patricia RN - 07/14/2022 12:29 PM CST Denies having COVID in past 90 days. No current COVID symptoms No COVID test needed CIPAL CLERK * Collin - Lina Patricia RN - 07/14/2022 12:09 PM CST [facility] ADULT TEACH[facility] Patient Name: Rowena Quesada : 1965 [facility]#: [id number] Person Educated Patient Ready to Learn Yes [...] be allowed to accompany you to the [facility]. No children under theage of 16 will be allowed in the [facility] unless they are the patient. If the [...] Patient Response: Verbalizes Understanding Patient assessed for speech language pathologist assistant during the preop interview and appropriate interventions taken if applicable. CIPAL CLERK documented in this encounter Plan of Treatment Not on file documented as of this encounter Procedures Procedure Name Priority Date/Time Associated Diagnosis Comments PATHOLOGY SURGICAL Routine 07/22/2022 8: 15 AM MUNICIPAL CLERK SYNOVECTOMY 07/22/2022 7:08 AM MUNICIPAL CLERK LEFT KNEE PAIN, TORN MEDIAL MENISCUS OF THE LEFT KNEE,SYNOVITISM OF THE LEFT KNEE, AND DEGENERATIVE ARTHRITIS OF THE LEFT KNEE?? Special Needs Hx: SVT 5' 6 206# No COVID test needed ARTHROSCOPY KNEE MENISCECTOMY 07/22/2022 7:08 AM MUNICIPAL CLERK LEFT KNEE PAIN, TORN MEDIAL MENISCUS OF THE LEFT KNEE,SYNOVITISM OF THE LEFT KNEE, AND DEGENERATIVE ARTHRITIS OF THE LEFT KNEE?? Special Needs Hx: SVT 5' 6 206# No COVID test needed ARTHROSCOPY KNEE 07/22/2022 7:08 AM MUNICIPAL CLERK LEFT KNEE PAIN, TORN MEDIAL MENISCUS OF THE LEFT KNEE,SYNOVITISM OF THE LEFT KNEE, AND DEGENERATIVE ARTHRITIS OF THE LEFT KNEE?? Special Needs Hx: SVT 5' 6 206# No COVID test needed UR TEST QUAL STAT 07/22/2022 6:51 AM MUNICIPAL CLERK documented in this encounter Results * Pathology Surgical (07/22/2022 8:15 AM MUNICIPAL CLERK) Case Report Surgical Pathology Report ? Case: [id number] ? Authorizing Provider: ??El Rodríguez MD ?Collected: ? 07/22/2022 08:15 AM ? [facility] ? Received: ?07/22/2022 12:56 PM ? [facility] ? Main OR ? Pathologist: ? Yobani Castellanos MD ? Specimen: ?Knee, ARTHROSCOPIC SHAVINGS, LEFT KNEE ? 07/23/2022 8:18 AM MUNICIPAL CLERK [facility] FINAL DIAGNOSIS TISSUE, LEFT KNEE, ARTHROSCOPIC SHAVINGS: - FRAGMENTS OF ARTICULAR CARTILAGE, BONE, SYNOVIUM, AND FIBROVASCULAR CONNECTIVE TISSUE. - NEGATIVE FOR SIGNIFICANT ACUTE INFLAMMATION OR CRYSTALLINE MATERIAL. 07/23/2022 8:18 AM [facility] Pre-Operative Diagnosis LEFT KNEE PAIN 07/23/2022 8:18 AM MUNICIPAL CLERK [facility] Gross Description A. ARTHROSCOPIC SHAVINGS, LEFT KNEE The specimen presents in a single formalin container for gross and microscopic examination, labeled with the patient's name, Rowena Quesada, and designated arthroscopic shavings left knee. The specimen consists of a rhina tissue filtration bag together with less than 1 gram of pale yellow-white tissue fragments. Mixer Lever Operator sample submitted in cassette A1. KS/sb 07/23/2022 8:18 AM MUNICIPAL CLERK [facility] Microscopic Description Microscopic examination was performed which supports the final diagnosis. All control tissues stained appropriately. 07/23/2022 8:18 AM MUNICIPAL CLERK [facility] Tissue KNEE JOINT SYNOVIAL FLUID / Unknown 07/22/2022 8:15 AM MUNICIPAL CLERK 07/22/2022 12:56 PM MUNICIPAL CLERK El Rodríguez MD PATHOLOGY/CYTOLOGY ORDERABLES Fi nal Result Performing Organization Address City/[facility]/ZIP Co de Phone Number [facility] [address] [place] [address] * Ur Test Qual (07/22/2022 6:51 AM MUNICIPAL CLERK) PREG TEST,MONOCLONA L Negative 07/22/2022 7:09 AM MUNICIPAL CLERK [facility] Urine Non-Phlebotomy Collection / Unknown 07/22/2022 6:51 AM MUNICIPAL CLERK 07/22/2022 6:56 AM MUNICIPAL CLERK El Rodríguez MD URINE ORDERABLES Final Result Performing Organization Address City/[facility] Co de Phone Number [facility] [address] [place] [address] documented in this encounter Visit Diagnoses Diagnosis Tear of medial meniscus of left knee, initial encounter- Primary Tear of medial meniscus of left knee, initial encounter Primary osteoarthritis of left knee Primary localized osteoarthrosis, lower leg Primary osteoarthritis of left knee Primary localized osteoarthrosis, lower leg documented in this encounter Administered Medications Inactive Administered Medications - up to 3 most recent administrations Medication Order MAR Action Action Date Dose Rate Site acetaminophen (TYLENOL) tablet 975 mg 975 mg, Oral, ONCE, 1 dose, On Wed07/22/22 at 0700, Maximum dose of acetaminophen is 4000 mg from all sources in 24 hours., PRE-OP (SURGERY) Given 07/22/2022 6:59 AM MUNICIPAL CLERK 975 mg ACETAMINOPHEN 325 MG PO TABS 1 dose, Starting on Wed07/22/22 at 0636, Until Wed07/22/22 at 0659, Created by cabinet override celecoxib (CeleBREX) capsule 200 mg 200 mg, Oral, ONCE, 1 dose, On Wed07/22/22 at 0700, PRE-OP (SURGERY) Given 07/22/2022 6:59 AM MUNICIPAL CLERK 200 mg CELECOXIB 200 MG PO CAPS 1 dose, Starting on Wed07/22/22 at 0636, Until Wed07/22/22 at 0659, Created by cabinet override dexamethasone (DECADRON) injection 8 mg 8 mg, Intravenous, ONCE, 1 dose, On Wed07/22/22 at 0700, PRE-OP (SURGERY) Given 07/22/2022 7:03 AM MUNICIPAL CLERK 8 mg DEXAMETHASONE SODIUM PHOSPHATE 4 MG/ML IJ SOLN 1 dose, Starting on Wed07/22/22 at 0637, Until Wed07/22/22 at 0703, Created by cabinet override FENTANYL CITRATE (PF) 100 MCG/2ML IJ SOLN 1 dose, Starting on Wed07/22/22 at 0650, Until Wed07/22/22 at 1214, Created by cabinet override HYDROcodone-acetaminophen (NORCO) 5-325 MG per tablet 1-2 [...] 2) increasing dosage, or 3) changing to MERGERS AND ACQUISITIONS MANAGER. Given 07/22/2022 8:52 AM MUNICIPAL CLERK 1 Tablet lactated ringers infusion at 20 mL/hr, Intravenous, CONTINUOUS, Starting on Wed07/22/22 at 0700, Until Wed07/22/22 at 1214, PRE-OP (SURGERY) New Bag 07/22/2022 7:03 AM MUNICIPAL CLERK 20 mL/hr MIDAZOLAM HCL (PF) 2 MG/2ML IJ SOLN 1 dose, Starting on Wed07/22/22 at 0650, Until Wed07/22/22 at 1214, Created by cabinet override ondansetron (ZOFRAN) injection 4 mg 4 mg, Intravenous, ONCE, 1 dose, On Wed07/22/22 at 0700, PRE-OP (SURGERY) Given 07/22/2022 7:03 AM MUNICIPAL CLERK 4 mg ONDANSETRON HCL 4 MG/2ML IJ SOLN 1 dose, Starting on Wed07/22/22 at 0637, Until Wed07/22/22 at 0703, Created by cabinet override documented in this encounter Active and Recently Administered Medications Times are shown in MUNICIPAL CLERK. Scheduled Medication Order 07/20/2022 07/21/2022 07/22/2022 acetaminophen [...] 0700, Until Wed07/22/22 at 1214, PRE-OP (SURGERY) 0703 (New Bag - Prov ider: Gertrudis Harrington [...] 2) increasing dosage, or 3) changing to MERGERS AND ACQUISITIONS MANAGER. 0852 (Given - Provid er: Priti Rios [...] override documented in this encounter Care Teams Machine Ironer Relationship Specialty Start Date End Date Baldomero Dominguez MD [address] [place] [id number] PCP - General Family Medicine 03/20/20 documented as of this encounter
--- OUTSIDE RECORDS SUMMARY | 2024-07-11 07:06 | XMS_ITS | Encounter Summary ---
Author Organization [facility] Address [address] [place] [address] Phone Care Team Providers Care Fire Coordinator Name Role Phone Baldomero Dominguez MD Primary Care Provider [phone] Reason for Referral * Radiology Services (Routine) - Closed Specialty Diagnoses / Procedures Referred By Vianca montiel Referred To Contact Radiology Diagnoses Preop testing Procedures EKG 12 LEAD El Rodríguez MD Phone: tel: fax: Referral ID Status Reason Start Date Expiration Date Visits Re quested Visits Authorized Closed 07/14/2022 1 1 ER PLAYER Reason for Visit * Radiology Services (Routine) - Closed Specialty Diagnoses / Procedures Referred By Vianca montiel Referred To Contact Radiology Diagnoses Preop testing Procedures EKG 12 LEAD El Rodríguez MD Phone: tel: fax: Referral ID Status Reason Start Date Expiration Date Visits Re quested Visits Authorized Closed 07/14/2022 1 1 Encounter Details Date Type Department Care Team (Latest Contact Info) Description 07/14/2022 12:47 PM SOCCER PLAYER - 07/14/2022 1:01 PM SOCCER PLAYER [facility] [address] [place] [address] El Rodríguez MD [address] [place] [id number] Discharge Disposition: Discharged to home or Selfcare [...] suspected to have Coronavirus/COVID-19? No / Unsure 07/14/2022 11:50 AM SOCCER PLAYER documented as of this encounter Medications at Time of Discharge CALCIUM PO Take 1 Tablet by mouth daily. Cyanocobalamin (VITAMIN B 12 PO) Take 1 Tablet by mouth daily. Ferrous Sulfate (IRON PO) Take 1 Tablet by mouth daily as needed. Ibuprofen 200 MG Capsule Take 2 Capsules by mouth as needed. MULTIPLE VITAMIN PO Take 1 Tablet by mouth daily. documented as of this encounter Plan of Treatment Not on file documented as of this encounter Procedures Procedure Name Priority Date/Time Associated Diagnosis Comments EKG 12 LEAD Routine 07/14/2022 12:58 PM SOCCER PLAYER Preop testing documented in this encounter Results * EKG 12 LEAD (07/14/2022 12:58 PM SOCCER PLAYER) Ventricular Rate 61 BPM EXTERNAL EKG Atrial Rate 61 BPM EXTERNAL EKG P-R Interval 172 ms EXTERNAL EKG QRS Duration 100 ms EXTERNAL EKG Q-T Duration 400 ms EXTERNAL EKG QTC CALCULATION 402 ms EXTERNAL EKG P [place] -13 degrees EXTERNAL EKG R [place] 36 degrees EXTERNAL EKG T [place] 30 degrees EXTERNAL EKG 07/14/2022 12:5 8 PM SOCCER PLAYER Impressions EXTERNAL EKG - 07/15/2022 11:06 AM SOCCER PLAYER Normal sinus rhythm Normal ECG No previous ECGs available Confirmed by Prabhjot Barbosa ([id number]) on 07/15/2022 11:06:05 AM Narrative Procedure Note Neto Barbosa, Prabhjot, MD - 07/15/2022 IMPRESSION: Normal sinus rhythm Normal ECG No previous ECGs available Confirmed by Prabhjot Barbosa ([id number]) on 07/15/2022 11:06:05 AM us El Rodríguez MD IMG ECG ORDERABLES Final Result EXTERNAL EKG documented in this encounter Visit Diagnoses Diagnosis Preop testing Preoperative examination, unspecified documented in this encounter Care Teams Fire Coordinator Relationship Specialty Start Date End Date Baldomero Dominguez MD [address] [place] [address] PCP - General Family Medicine 03/20/20 documented as of this encounter
--- OUTSIDE RECORDS SUMMARY | 2024-07-11 07:06 | XMS_ITS | Encounter Summary ---
Author Organization [facility] Address [address] [facility] [place] [address] Phone Care Team Providers Care Full Stack Software Engineer Name Role Phone Baldomero Dominguez MD Primary Care Provider [phone] Reason for Visit * Auth/Cert (Routine) Specialty Diagnoses / Procedures Referred By Vianca montiel Referred To Contact Diagnoses LEFT KNEE PAIN Procedures ARTHROSCOPY KNEE El Rodríguez MD [address] [place] [address] Phone: tel: fax: Referral ID Status Reason Start Date Expiration Date Visits Re quested Visits Authorized [id number] 1 1 Encounter Details Date Type Department Care Team (Late st Contact Info) Description 07/22/2022 7:28 AM CORPORATE TRAVEL EXPERT [facility] [address] [place] [address] Cliff Kessler, DO [address] [place] [address] Sergio Novoa, RADIO INTERFERENCE SUPERVISOR, REFINERY OPERATOR POLYMERIZATION PLANT [address] [place] [address] Anesthesia Record Procedure Summary Procedure Name Responsible Anesthesiologist Anesthesia Start Time Anesthesia Stop Time LEFT KNEE ARTHROSCOPY, CHONDROPLASTY, AND ABRASION ARTHROPLASTY OF THE PATELLA (Left: Knee) Cliff Kessler DO 07/22/22 0728 07/22/22 0839 Events Date Time Event Comment 07/22/2022 0645 0728 An Start 0730 An Start Data 0731 ANASSESSCMPLT 0733 An Induction 0734 An LMA 0739 Anesthesia Ready 0831 Airway Removed 0834 Stop Data Collection 0835 Transort to Postop 0836 Handoff to RN I completed my SBAR handoff to the receiving nurse. Last vitals BP: 114/68 Temp: 36.9 ??C Pulse: 68 Resp: 16 SpO2: 99 % 0839 An Stop Last vitals: BP : 114/68 Temp: 36.9 ??C Pulse: 68 Resp: 16 SpO2: 99 % Meds Name Total midazolam (VERSED) injection 1 mg/mL 2 m g propofol 10 mg/mL 200 mg lidocaine 1 % 100 mg ondansetron 4 mg/2 mL 4 mg ceFAZolin (ANCEF) injection 2 g 2 g lactated ringers infusion 300 mL * Agents No agents on file. * Blood No blood administrations on file. Lines, Drains, and Airways Type Details Placement Removal RETIRED Incision 07/22/22; 075; Left ; knee; arthroscopic puncture(s); ARTHROSCOPIC PUNCTURES TIMES 2 07/22/22 075 by Ibeth Sood RN PIV-Single Lumen Placement Date: 06/26 03/16; Placement Time: 07; Catheter Size: 22 G; Orientation: Posterior, Right; Location: Hand; Site Prep: Alcohol; Inserted by: Flavio Wilder RN; Insertion Attempts: 1; Patient Tolerance: Tolerated well; Removal Date: 07/22/22; Removal Time: 09; Removal Reason: Per order 07/22/22 07 by Gertrudis Harrington RN 07/22/22 09 by Gertrudis Harrington RN documented in this encounter Social History Tobacco [...] Coronavirus/COVID-19? No / Unsure 07/22/2022 6:18 AM CORPORATE TRAVEL EXPERT documented as of this encounter OR Notes * Anesthesia Postprocedure Evaluation - Cliff Kessler DO - 07/22/2022 8:39 AM CST Patient: Rowena Quesada Procedure Summary Date: 07/22/22 Room / Location: [facility] / [facility] Anesthesia Start: 727 Anesthesia Stop: 838 Procedure: LEFT KNEE ARTHROSCOPY WITH PARTIAL MEDIAL AND LATERAL MENISCECTOMY, PARTIAL SYNOVECTOMY,CHONDROPLASTY, AND ABRASION ARTHROPLASTY OF THE PATELLA (Left: Knee) Diagnosis: (LEFT KNEE PAIN, TORN MENISCOUS,) Surgeons: El Rodríguez MD Responsible Provider: Cliff Kessler DO Anesthesia Type: general ASA Status: 3 Anesthesia Type: general Last vitals Vitals Value Taken Time BP Temp Pulse Resp SpO2 Pain score: 0 Pain management: adequate Patient location during evaluation: PACU Patient participation: Sufficiently recovered to participate Level of consciousness: lethargic Cardiovascular status: acceptable Respiratory status: acceptable Hydration status: acceptable Anesthetic complications: no Airway patency: positional obstruction Nausea and Vomiting: none ORATE TRAVEL EXPERT * Anesthesia Procedure Notes - Cliff Kessler DO - 07/22/2022 7:38 AM CSTAssociated Order(s): LMA LMA Staffing Performed: anesthesiologist Anesthesiologist: Cliff Kessler DO Airway Details Overall Difficulty: Easy Preoxygenated: Yes LMA Type: Disposable LMA Size: 3 Adequate seal established: Yes LMA placement confirmed by: bilateral breath sounds, CO2 detection Atraumatic LMA Placement ORATE TRAVEL EXPERT * Anesthesia Preprocedure Evaluation - Cliff Kessler DO - 07/22/2022 6:45 AM CST Anesthesia Evaluation Procedure Information Date/Time: 07/22/22 1025 Procedure: LEFT KNEE ARTHROSCOPY WITH PARTIAL MEDIAL MENISCECTOMY, PARTIAL SYNOVECTOMY AND CHONDROPLASTY (Left: Knee) Location: [facility] OR 02 / [facility] Surgeons: El Rodríguez MD Patient summary reviewed and Nursing notes reviewed No history of anesthetic complications No family history of anesthesia reaction Allergies: No Known Allergies Patient allergies reviewed. Medications: Current Facility-Administered Medications: ??? acetaminophen (TYLENOL) tablet 975 mg, 975 mg, Oral, Once, Sergio Novoa, RADIO INTERFERENCE SUPERVISOR, REFINERY OPERATOR [employer] ??? ACETAMINOPHEN 325 MG PO TABS, , , , ??? ceFAZolin (ANCEF) injection 2 g, 2 g, Intravenous, Once, El Rodríguez MD ??? celecoxib (CeleBREX) capsule 200 mg, 200 mg, Oral, Once, Sergio Novoa, RADIO INTERFERENCE SUPERVISOR, REFINERY OPERATOR [employer] ??? CELECOXIB 200 MG PO CAPS, , , , ??? dexamethasone (DECADRON) injection 8 mg, 8 mg, Intravenous, Once, Sergio Novoa, RADIO INTERFERENCE SUPERVISOR, REFINERY OPERATOR [employer] ??? DEXAMETHASONE SODIUM PHOSPHATE 4 MG/ML IJ SOLN, , , , ??? lactated ringers infusion, , Intravenous, Continuous, El Rodríguez MD ??? ondansetron (ZOFRAN) injection 4 mg, 4 mg, Intravenous, Once, Sergio Novoa, RADIO INTERFERENCE SUPERVISOR, REFINERY OPERATOR [employer] ??? ONDANSETRON HCL 4 MG/2ML IJ SOLN, , , , Medications Prior to Admission: CALCIUM PO, Take 1 Tablet by mouth daily., Disp: , Rfl: Cyanocobalamin (VITAMIN B 12 PO), Take 1 Tablet by mouth daily., Disp: , Rfl: Ferrous Sulfate (IRON PO), Take 1 Tablet by mouth daily as needed., Disp: , Rfl: Ibuprofen (Advil) 200 MG Capsule, Take 2 Capsules by mouth as needed., Disp: , Rfl: MULTIPLE VITAMIN PO, Take 1 Tablet by mouth daily., Disp: , Rfl: Patient medications reviewed. Airway Mallampati: II TM distance: >3 FB Neck ROM: full Dental Pulmonary - normal exam (+) sleep apnea, Cardiovascular - normal exam (+) dysrhythmias (svt), Neuro/Psych GI/Hepatic/Renal Endo/Other (+) arthritis, Risks, benefits, alternatives discussed with:patient. Anesthesia Plan ASA 3 general intravenous induction Anesthetic plan and risks discussed with Patient. Plan discussed with surgeon. ORATE TRAVEL EXPERT documented in this encounter Plan of Treatment Not on file documented as of this encounter Procedures Procedure Name Priority Date/Time Associated Diagnosis Comments LMA Routine 07/22/2022 7:38 AM CORPORATE TRAVEL EXPERT documented in this encounter Results * LMA (07/22/2022 7:38 AM CORPORATE TRAVEL EXPERT) Narrative Cliff Kessler, DO - 07/22/2022 7:38 AM CORPORATE TRAVEL EXPERT Cliff Kessler, DO ? 07/22/2022 ??7:38 AM LMA Staffing Performed: anesthesiologist Anesthesiologist: Cliff Kessler, DO Airway Details Overall Difficulty: ??Easy Preoxygenated: ??Yes LMA Type: ??Disposable LMA Size: ??3 Adequate seal established: ??Yes LMA placement confirmed by: ??bilateral breath sounds, ??CO2 detection Atraumatic LMA Placement Result [facility] Cliff Kessler DO ANESTHESIA ORDERABL ES Final Result documented in this encounter Visit Diagnoses Not on filedocumented in this encounter Administered Medications Inactive Administered Medications - up to 3 most recent administrations Medication Order MAR Action Action Date Dose Rate Site ceFAZolin (ANCEF) injection 2 g 2 g, Intravenous, ONCE, 1 dose, On Wed07/22/22 at 0700, Administer over 5 Minutes, INTRA-OP, Indications: Perioperative PharmacoprophylaxisIndications:Lida operative Pharmacoprophylaxis Given 07/22/2022 7:35 AM CORPORATE TRAVEL EXPERT 2 g lidocaine 1 % injection Intravenous, ONCE (in OR), Starting on Wed07/22/22 at 0733, Until Wed07/22/22 at 0838 Given 07/22/2022 7:33 AM CORPORATE TRAVEL EXPERT 100 mg midazolam (VERSED) injection Intravenous, ONCE (in OR), Starting on Wed07/22/22 at 0728, Until Wed07/22/22 at 0838 Given 07/22/2022 7:28 AM CORPORATE TRAVEL EXPERT 2 mg ondansetron (ZOFRAN) injection Intravenous, ONCE (in OR), Starting on Wed07/22/22 at 0740, Until Wed07/22/22 at 0838 Given 07/22/2022 7:40 AM CORPORATE TRAVEL EXPERT 4 mg propofol (DIPRIVAN) injection Intravenous, ONCE (in OR), Starting on Wed07/22/22 at 0733, Until Wed07/22/22 at 0838 Given 07/22/2022 7:33 AM CORPORATE TRAVEL EXPERT 200 mg documented in this encounter Care Teams Full Stack Software Engineer Relationship Specialty Start Date End Date Baldomero Dominguez MD [address] [place] [address] PCP - General Family Medicine 03/20/20 documented as of this encounter
--- OUTSIDE RECORDS SUMMARY | 2024-07-11 07:06 | XMS_ITS | Encounter Summary ---
Author Organization [facility] Address [address] [place] [address] Phone Care Team Providers Care Edge Banding Machine Offbearer Name Role Phone Baldomero Dominguez MD Primary Care Provider [phone] Reason for Referral * Radiology Services (Routine) - Closed Specialty Diagnoses / Procedures Referred By Vianca montiel Referred To Contact Radiology Diagnoses Preop testing Procedures XR CHEST 2 VIEWS El Rodríguez MD Phone: tel: fax: Referral ID Status Reason Start Date Expiration Date Visits Re quested Visits Authorized Closed 07/14/2022 1 1 NICAL COORDINATOR * Radiology Services (Routine) - Closed Specialty Diagnoses / Procedures Referred By Vianca montiel Referred To Contact Radiology Diagnoses Preop testing Procedures EKG 12 LEAD El Rodríguez MD Phone: tel: fax: Referral ID Status Reason Start Date Expiration Date Visits Re quested Visits Authorized Closed 07/14/2022 1 1 NICAL COORDINATOR Encounter Details Date Type Department Care Team (Latest Contact Info) Description 07/14/2022 [facility] [address] [place] [id number] El Rodríguez MD [address] [place] [address] Preop testing (Primary Dx) Social History Tobacco Use Types Packs/Day Years [...] Coronavirus/COVID-19? No / Unsure 07/14/2022 11:50 AM TECHNICAL COORDINATOR documented as of this encounter Plan of Treatment Not on file documented as of this encounter Results * XR CHEST 2 VIEWS (07/14/2022 1:11 PM TECHNICAL COORDINATOR) Anatomical Region Laterality Modality Chest N/A Digital Radiogra phy 07/14/2022 9:34 PM TECHNICAL COORDINATOR Impressions 07/14/2022 9:37 PM TECHNICAL COORDINATOR IMPRESSION: ?? No acute cardiopulmonary abnormality. Narrative 07/14/2022 9:37 PM TECHNICAL COORDINATOR EXAM DESCRIPTION: ?? XR CHEST 2 VIEWS REASON FOR STUDY: ?? Encounter for other preprocedural examination TECHNIQUE: ?? Frontal ??and lateral radiographic views of the chest acquired. COMPARISON: 03/20/2020 FINDINGS: LUNGS/PLEURA: ?? No focal consolidation or pneumothorax. No pleural effusion. HEART/MEDIASTINUM: ?? Heart size is normal. Normal mediastinal and hilar contours. HARDWARE/LINES/TUBES: ?? None. BONES: ?? No acute findings. OTHER: ?? No other significant finding. THIS IS AN ELECTRONICALLY VERIFIED FINAL REPORT 07/14/2022 9:34 PM - Electronically signed by ??Phil Hall M.D. RW: YELENA D: ??07/14/2022 9:34 PM T: ??07/14/2022 9:34 PM Report ID: [id number] Reading Location: ??[id number] Procedure Note Phil Hall MD - 07/14/2022 EXAM DESCRIPTION: XR CHEST 2 VIEWS REASON FOR STUDY: Encounter for other preprocedural examination TECHNIQUE: Frontal and lateral radiographic views of the chest acquired. COMPARISON: 03/20/2020 FINDINGS: LUNGS/PLEURA: No focal consolidation or pneumothorax. No pleural effusion. HEART/MEDIASTINUM: Heart size is normal. Normal mediastinal and hilar contours. HARDWARE/LINES/TUBES: None. BONES: No acute findings. OTHER: No other significant finding. THIS IS AN ELECTRONICALLY VERIFIED FINAL REPORT 07/14/2022 9:34 PM - Electronically signed by Phil Hall M.D. RW: YELENA Report ID: [id number] Reading Location: [id number] IMPRESSION: No acute cardiopulmonary abnormality. El Rodríguez MD IMG DIAGNOSTIC ORDERABLES Final Result * URIC ACID (BLOOD ASSAY) (07/14/2022 1:01 PM TECHNICAL COORDINATOR) URIC ACID 4.8 2.4 - 5.7 mg/dL 07/14/2022 1:58 PM TECHNICAL COORDINATOR [facility] [email or web address] LAB Blood Venipuncture / Unknown 07/14/2022 1:01 PM TECHNICAL COORDINATOR 07/14/2022 1:13 PM TECHNICAL COORDINATOR El Rodríguez MD CHEMISTRY ORDERABLES Final Resul t [facility] Organization Address City/State/ZIP Co de Phone Number [facility] [address] [place] [address] * (ABNORMAL) C-REACTIVE PROTEIN (CRP) QUANT (07/14/2022 1:01 PM TECHNICAL COORDINATOR) C-REACTIVE PROTEIN 0.57(H) <0.50 mg/dL 07/14/2022 1:58 PM TECHNICAL COORDINATOR [facility] Blood Venipuncture / Unknown 07/14/2022 1:01 PM TECHNICAL COORDINATOR 07/14/2022 1:13 PM TECHNICAL COORDINATOR us El Rodríguez MD CHEMISTRY ORDERABLES Final Resul t Performing Organization Address City/[facility]/ZIP Co de Phone Number [facility] [address] [place] [address] * ANTINUCLEAR ANTIBODY (RACHELLE), TITER IF POS (07/14/2022 1:01 PM TECHNICAL COORDINATOR) RACHELLE SCREEN Negative Negative titer 07/15/2022 11:34 AM TECHNICAL COORDINATOR [facility] Comment: Antinuclear autoantibodies not detected by IFA at a 1:80 screening dilution of HEp-2 cells. Blood Venipuncture / Unknown 07/14/2022 1:01 PM TECHNICAL COORDINATOR 07/14/2022 1:13 PM TECHNICAL COORDINATOR us El Rodríguez MD IMMUNOLOGY ORDERABLES Final Resu lt Performing Organization Address City/[facility] Co de Phone Number [facility] [address] [place] [address], [place] * (ABNORMAL) RHEUMATOID FACTOR (RFQT) QUANT (07/14/2022 1:01 PM TECHNICAL COORDINATOR) Pathologist [facility] RHEUMATOID FACTOR QT 18(H) <14 IU/mL 07/14/2022 1:58 PM TECHNICAL COORDINATOR [facility] Blood Venipuncture / Unknown 07/14/2022 1:01 PM TECHNICAL COORDINATOR 07/14/2022 1:13 PM TECHNICAL COORDINATOR Narrative [facility] - 07/14/2022 1:58 PM TECHNICAL COORDINATOR RHEUMATOID FACTORS CAN BE FOUND IN RHEUMATOID ARTHRITIS, SYPHILIS, VIRAL INFECTIONS, LEPROSY, CHRONIC LIVER DISEASE, NEOPLASMS, AND OTHER INFLAMMATORY CONDITIONS. RF PREVALENCE ALSO INCREASES WITH AGE. THUS A POSITIVE TEST IS NOT RESTRICTED TO RA. CONVERSELY, A NEGATIVE TEST DOES NOT RULE OUT RA, RHEUMATOID FACTORS ARE NOT DETECTABLE IN 10% OF ADULTS WITH THE DISEASE. us El Rodríguez MD CHEMISTRY ORDERABLES Final Resul t Performing Organization Address City/[facility]/ZIP Co de Phone Number [facility] [address] [place] [address] * ERYTHROCYTE SEDIMENTATION RATE (ESR) (07/14/2022 1:01 PM TECHNICAL COORDINATOR) ESR (SED RATE, ERYTHROCYTE SEDIMENTATION RATE) 10 <30 mm/h 07/14/2022 1:24 PM TECHNICAL COORDINATOR [facility] Comment: Patients presenting with increased level of fibrinogen, gamma globulins, or abnormally shaped RBCs could affect the results for the erythrocyte sedimentation rate (ESR). Results should be clinically correlated. Blood Venipuncture / Unknown 07/14/2022 1:01 PM TECHNICAL COORDINATOR 07/14/2022 1:15 PM TECHNICAL COORDINATOR us El Rodríguez MD HEMATOLOGY ORDERABLES Final Resu lt [facility] [address] [place] [address] * (ABNORMAL) CMP (COMPREHENSIVE METABOLIC PANEL) (07/14/2022 1:01 PM TECHNICAL COORDINATOR) Pathologist [facility] SODIUM 140 136 - 144 mmol/L 07/14/2022 1:58 PM TECHNICAL COORDINATOR [facility] POTASSIUM 3.6 3.5 - 5.1 mmol/L 07/14/2022 1:58 PM TECHNICAL COORDINATOR [facility] CHLORIDE 104 100 - 110 mmol/L 07/14/2022 1:58 PM TECHNICAL COORDINATOR [facility] CO2, VENOUS 29 22 - 32 mmol/L 07/14/2022 1:58 PM TECHNICAL COORDINATOR [facility] ANION GAP 10.6 8.0 - 20.0 mmol/L 07/14/2022 1:58 PM TECHNICAL COORDINATOR [facility] GLUCOSE 123(H) 70 - 99 mg/dL 07/14/2022 1:58 PM TECHNICAL COORDINATOR [facility] BUN 11 6 - 20 mg/dL 07/14/2022 1:58 PM TECHNICAL COORDINATOR [facility] CREATININE, BLOOD 0.55(L) 0.60 - 1.10 mg/dL 07/14/2022 1:58 PM TECHNICAL COORDINATOR [facility] BUN/CREATININE RATIO 20 12 - 20 ratio 07/14/2022 1:58 PM [facility] TOTAL PROTEIN 7.1 6.0 - 8.3 g/dL 07/14/2022 1:58 PM [facility] ALBUMIN 4.0 3.5 - 5.2 g/dL 07/14/2022 1:58 PM [facility] Comment: The colormetric methods used for the determination of Albumin may lead to falsely elevated test results in patients suffering from renal failure or insufficiency due to interference with other proteins. A/G RATIO 1.3 1.0 - 2.0 07/14/2022 1:58 PM [facility] CALCIUM 9.8 8.9 - 10.3 mg/dL 07/14/2022 1:58 PM [facility] T BILI 0.3 <=1.2 mg/dL 07/14/2022 1:58 PM [facility] SGOT (AST) 13 <=32 U/L 07/14/2022 1:58 PM [facility] SGPT (ALT) 9 <=41 U/L 07/14/2022 1:58 PM [facility] ALKALINE PHOSPHATASE 68 35 - 105 U/L 07/14/2022 1:58 PM [facility] IS THE PATIENT REQUIRED TO BE FASTING? No 07/14/2022 1:58 PM [facility] GFR, ESTIMATED >60 >=60 07/14/2022 1:58 PM [facility] Comment: Creatinine Clearance is the preferred criteria for selecting drug dose adjustments in renally impaired patients. ??The GFR is provided as additional pertinent clinical information. GFR is reported in mL/min/1.73 sq m. Calculation based on the Chronic Kidney Disease Epidemiology Collaboration (CKD- EPI) equation refit without adjustment for race. GFR, EST. >60 >=60 022 1:58 PM [facility] GFR, EST. NONAFRICAN >60 >=60 07/14/2022 1:58 PM [facility] Blood Venipuncture / Unknown 07/14/2022 1:01 PM TECHNICAL COORDINATOR 07/14/2022 1:13 PM TECHNICAL COORDINATOR us El Rodríguez MD CHEMISTRY ORDERABLES Final Resul t Performing Organization Address City/[facility] Co de Phone Number [facility] [email or web address]] LAB #[address] [place] [address] * EKG 12 LEAD (07/14/2022 12:58 PM TECHNICAL COORDINATOR) Ventricular Rate 61 BPM EXTERNAL EKG Atrial Rate 61 BPM EXTERNAL EKG P-R Interval 172 ms EXTERNAL EKG QRS Duration 100 ms EXTERNAL EKG Q-T Duration 400 ms EXTERNAL EKG QTC CALCULATION 402 ms EXTERNAL EKG P [place] -13 degrees EXTERNAL EKG R [place] 36 degrees EXTERNAL EKG T [place] 30 degrees EXTERNAL EKG 07/14/2022 12:5 8 PM TECHNICAL COORDINATOR Impressions EXTERNAL EKG - 07/15/2022 11:06 AM TECHNICAL COORDINATOR Normal sinus rhythm Normal ECG No previous ECGs available Confirmed by Prabhjot Barbosa ([id number]) on 07/15/2022 11:06:05 AM Narrative Procedure Note Prabhjot Gallagher MD - 07/15/2022 IMPRESSION: Normal sinus rhythm Normal ECG No previous ECGs available Confirmed by Prabhjot Barbosa ([id number]) on 07/15/2022 11:06:05 AM us El Rodríguez MD IMG ECG ORDERABLES Final Result Performing Organization Address City/[facility]/ZIP Co de Phone Number EXTERNAL EKG documented in this encounter Visit Diagnoses Diagnosis Preop testing- Primary Preoperative examination, unspecified Preop testing Preoperative examination, unspecified Preop testing Preoperative examination, unspecified documented in this encounter Care Teams Edge Banding Machine Offbearer Relationship Specialty Start Date End Date Baldomero Dominguez MD [address] [address] PCP - General Family Medicine 03/20/20 documented as of this encounter
--- OUTSIDE RECORDS SUMMARY | 2024-07-11 07:06 | XMS_ITS | Encounter Summary ---
Author Organization [facility] Address [address] [place] [address] Phone Care Team Providers Care Vacuum Pan Tender Name Role Phone Baldomero Dominguez MD Primary Care Provider [phone] Reason for Referral * Radiology Services (Routine) - Closed Specialty Diagnoses / Procedures Referred By Vianca montiel Referred To Contact Radiology Diagnoses Preop testing Procedures XR CHEST 2 VIEWS El Rodríguez MD Phone: tel: fax: Referral ID Status Reason Start Date Expiration Date Visits Re quested Visits Authorized Closed 07/14/2022 1 1 ER SALES Reason for Visit * Radiology Services (Routine) [...] Care Team (Latest Contact Info) Description 07/14/2022 1:02 PM DRIVER SALES - 07/14/2022 11:59 PM DRIVER SALES [facility] [address] [place] [address] El Rodríguez MD [address] [place] [address] Discharge Disposition: Discharged to home or Selfcare [...] Coronavirus/COVID-19? No / Unsure 07/14/2022 11:50 AM DRIVER SALES documented as of this encounter Medications at [...] Procedure Name Priority Date/Time Associated Diagnosis Comments XR CHEST 2 VIEWS Routine 07/14/2022 1:11 PM DRIVER SALES Preop testing documented in this encounter Results * XR CHEST 2 VIEWS (07/14/2022 1:11 PM DRIVER SALES) Anatomical Region Laterality Modality Chest N/A Digital Radiogra phy 07/14/2022 9:34 PM DRIVER SALES Impressions 07/14/2022 9:37 PM DRIVER SALES IMPRESSION: ?? No acute cardiopulmonary abnormality. Narrative 07/14/2022 9:37 PM DRIVER SALES EXAM DESCRIPTION: ?? XR CHEST 2 VIEWS [...] 07/14/2022 9:34 PM - Electronically signed by ??hPil Hall M.D. RW: YELENA D: ??07/14/2022 9:34 PM T: ??07/14/2022 9:34 PM Report ID: [id number] Reading Location: ??[id number] Procedure Note Phil Hall MD - 07/14/2022 [...] Phil Hall M.D. RW: YELENA Report ID: [id number] Reading Location: [id number] IMPRESSION: No acute cardiopulmonary abnormality. El Rodríguez MD IMG DIAGNOSTIC ORDERABLES Final Result documented in this encounter Visit Diagnoses Diagnosis Preop testing Preoperative examination, unspecified documented in this encounter Care Teams Vacuum Pan Tender Relationship Specialty Start Date End Date Baldomero Dominguez MD [address] [place] [id number] PCP - General Family Medicine 03/20/20 documented as of this encounter
--- OUTSIDE RECORDS SUMMARY | 2024-07-11 07:07 | XMS_ITS | Encounter Summary ---
Author Organization [employer] Care Team Providers Care Resaw Tailer Name Role Phone Baldomero Dominguez MD Primary Care Provider [phone] Encounter Details Date Type Department Care Team (Latest Contact Info) Description 03/20/2020 Travel Social History Tobacco Use Types Packs/Day [...] or suspected to have Coronavirus / COVID-19? No / Unsure 03/20/2020 12:18 PM CDT documented as of this encounter Plan of Treatment Not on file documented as of this encounter Visit Diagnoses Not on filedocumented in this encounter Care Teams Resaw Tailer Relationship Specialty Start Date End Date Baldomero Dominguez MD [address] [place] [address] PCP - General Family Medicine 03/20/20 documented as of this encounter
--- OUTSIDE RECORDS SUMMARY | 2024-07-11 07:07 | XMS_ITS | Encounter Summary ---
Author Organization [employer] Care Team Providers Care Fish Protector Name Role Phone Baldomero Dominguez MD Primary Care Provider [phone] Encounter Details Date Type Department Care Team (Latest Contact Info) Description 07/14/2022 Travel Social History Tobacco Use Types Packs/Day [...] Coronavirus/COVID-19? No / Unsure 07/14/2022 11:50 AM [employer] HAND documented as of this encounter Plan of Treatment Not on file documented as of this encounter Visit Diagnoses Not on filedocumented in this encounter Care Teams Fish Protector Relationship Specialty Start Date End Date Baldomero Dominguez MD [address] [address] PCP - General Family Medicine 03/20/20 documented as of this encounter
--- OUTSIDE RECORDS SUMMARY | 2024-07-11 07:08 | XMS_ITS | Encounter Summary ---
Author Organization [facility] Address [address] [facility] [place] [address] Phone Care Team Providers Care Stockholder Name Role Phone Baldomero Dominguez MD Primary Care Provider [phone] Reason for Referral * Radiology Services (Routine) - Closed Specialty Diagnoses / Procedures Referred By Vianca montiel Referred To Contact Radiology Diagnoses Osteoarthritis of both knees, unspecified osteoarthritis type Procedures XR CHEST 2 VIEWS El Rodríguez MD Phone: tel: fax: Referral ID Status Reason Start Date Expiration Date Visits Re quested Visits Authorized [id number] Closed 03/19/2020 1 1 Reason for Visit * Radiology Services (Routine) - Closed Specialty Diagnoses / Procedures Referred By Vianca montiel Referred To Contact Radiology Diagnoses Osteoarthritis of both knees, unspecified osteoarthritis type Procedures XR CHEST 2 VIEWS El Rodríguez MD Phone: tel: fax: Referral ID Status Reason Start Date Expiration Date Visits Re quested Visits Authorized [id number] Closed 03/19/2020 1 1 Encounter Details Date Type Department Care Team (Latest Contact Info) Description 03/20/2020 12:31 PM CDT - 03/20/2020 11:59 PM CDT [facility] [address] [place] [address] El Rodríguez MD [address] [place] [address] Discharge Disposition: Discharged to home or Selfcare [...] Diagnosis Comments XR CHEST 2 VIEWS Routine 03/20/2020 12:5 3 PM CDT Osteoarthritis of both knees, unspecified osteoarthritis type documented in this encounter Results * XR CHEST 2 VIEWS (03/20/2020 12:53 PM CDT) Anatomical Region Laterality Modality Chest N/A Digital Radiogra phy 03/21/2020 10:0 6 AM CDT Impressions 03/21/2020 10:08 AM CDT IMPRESSION: ?? No acute cardiopulmonary abnormality. Narrative 03/21/2020 10:08 AM CDT EXAM DESCRIPTION: ?? XR CHEST 2 VIEWS REASON FOR STUDY: ?? Bilateral primary osteoarthritis of knee, preoperative for meniscal surgery TECHNIQUE: ?? Frontal and lateral radiographic views of the chest acquired. COMPARISON: ?? None FINDINGS: ??LUNGS/PLEURA: ??No focal consolidation or pneumothorax. No pleural effusion. HEART/MEDIASTINUM: ??Heart size is normal. Normal mediastinal and hilar contours. HARDWARE/LINES/TUBES: ??None. BONES: ??No acute findings. OTHER: ??No other significant finding. THIS IS AN ELECTRONICALLY VERIFIED FINAL REPORT 03/21/2020 10:06 AM - Electronically signed by Michele Fabian M.D. RS: LEONARDO D: ??03/21/2020 10:06 AM T: ??03/21/2020 10:06 AM Report ID: [id number] Reading Location: ??[id number] Procedure Note Michele Fabian MD - 03/21/2020 EXAM DESCRIPTION: XR CHEST 2 VIEWS REASON FOR STUDY: Bilateral primary osteoarthritis of knee, preoperative for meniscal surgery TECHNIQUE: Frontal and lateral radiographic views of the chest acquired. COMPARISON: None FINDINGS: LUNGS/PLEURA: No focal consolidation or pneumothorax. No pleural effusion. HEART/MEDIASTINUM: Heart size is normal. Normal mediastinal and hilar contours. HARDWARE/LINES/TUBES: None. BONES: No acute findings. OTHER: No other significant finding. THIS IS AN ELECTRONICALLY VERIFIED FINAL REPORT 03/21/2020 10:06 AM - Electronically signed by Michele Fabian M.D. RS: LEONARDO Report ID: [id number] Reading Location: [id number] IMPRESSION: No acute cardiopulmonary abnormality. El Rodríguez MD IMG DIAGNOSTIC ORDERABLES Final Result documented in this encounter Visit Diagnoses Diagnosis Osteoarthritis of both knees, unspecified osteoarthritis type documented in this encounter Care Teams Stockholder Relationship Specialty Start Date End Date Baldomero Dominguez MD [facility] [address] [address] PCP - General Family Medicine 03/20/20 documented as of this encounter
--- OUTSIDE RECORDS SUMMARY | 2024-07-11 07:08 | XMS_ITS | Encounter Summary ---
Author Organization [facility] Address [address] [facility] [place] [address] Phone Care Team Providers Care Laboratory Specialist Name Role Phone Unavailable Primary Care Provider Unavailabl e Reason for Referral * Radiology Services (Routine) - Closed Specialty Diagnoses / Procedures Referred By Vianca montiel Referred To Contact Radiology Diagnoses Osteoarthritis of both knees, unspecified osteoarthritis type Procedures EKG 12 LEAD El Rodríguez MD Phone: tel: fax: Referral ID Status Reason Start Date Expiration Date Visits Re quested Visits Authorized [id number] Closed 03/19/2020 1 1 * Radiology Services (Routine) - Closed Specialty Diagnoses / Procedures Referred By Vianca montiel Referred To Contact Radiology Diagnoses Osteoarthritis of both knees, unspecified osteoarthritis type Procedures XR CHEST 2 VIEWS El Rodríguez MD Phone: tel: fax: Referral ID Status Reason Start Date Expiration Date Visits Re quested Visits Authorized [id number] Closed 03/19/2020 1 1 Encounter Details Date Type Department Care Team (Latest Contact Info) Description 03/19/2020 [facility] [address] [place] [id number] El Rodríguez MD [address] [place] [id number] Osteoarthritis of both knees, unspecified osteoarthritis type (Primary Dx) Social History Tobacco Use Types [...] documented as of this encounter Results * EKG 12 LEAD (03/20/2020 1:01 PM CDT) Ventricular Rate BPM EXTERNAL EKG Atrial Rate BPM EXTERNAL EKG P-R Interval 168 ms EXTERNAL EKG QRS Duration 92 ms EXTERNAL EKG Q-T Duration 328 ms EXTERNAL EKG QTC CALCULATION 404 ms EXTERNAL EKG P [place] 55 degrees EXTERNAL EKG R [place] 34 degrees EXTERNAL EKG T [place] 38 degrees EXTERNAL EKG 03/20/2020 1:01 PM CDT Impressions EXTERNAL EKG - 03/21/2020 11:18 AM CDT Sinus rhythm rSr'(V1) - probable normal variant Anterior T wave abnormality is nonspecific Comparison Summary: No serial comparison made Summary: Borderline ECG Confirmed by Sary Pizano [id number] on 03/21/2020 11:18:42 AM Narrative Procedure Note Halima Okeefe MD - 03/21/2020 IMPRESSION: Sinus rhythm rSr'(V1) - probable normal variant Anterior T wave abnormality is nonspecific Comparison Summary: No serial comparison made Summary: Borderline ECG Confirmed by Sary Pizano [id number] on 03/21/2020 11:18:42 AM El Rodríguez MD IMG ECG ORDERABLES Final Result EXTERNAL EKG * XR CHEST 2 VIEWS (03/20/2020 12:53 [...] Electronically signed by Michele Fabian M.D. RS: RS D: ??03/21/2020 10:06 AM T: ??03/21/2020 10:06 AM Report ID: [id number] Reading Location: ??[id number] Procedure Note Michele Fabian MD - 03/21/2020 [...] Electronically signed by Michele Fabian M.D. RS: RS Report ID: [id number] Reading Location: [id number] IMPRESSION: No acute cardiopulmonary abnormality. El Rodríguez MD [facility] [place] ORDERABLES Final Result * (ABNORMAL) URIC ACID (BLOOD ASSAY) (03/20/2020 12:27 PM CDT) URIC ACID 7.1(H) 2.4 - 5.7 mg/dL 03/20/2020 1:10 PM CDT [facility] Blood Venipuncture / Unknown 03/20/2020 12:27 PM CDT 03/20/2020 12:43 PM CDT El Rodríguez MD CHEMISTRY ORDERABLES Final Resul t Performing Organization Address [facility] de Phone Number [facility] [place] [address] * RHEUMATOID FACTOR (RFQT) QUANT (03/20/2020 12:27 PM CDT) RHEUMATOID FACTOR QT <=10 <14 IU/mL 03/20/2020 1:10 PM CDT [facility] Blood Venipuncture / Unknown 03/20/2020 12:27 PM CDT 03/20/2020 12:43 PM CDT Narrative [facility] - 03/20/2020 1:10 PM CDT RHEUMATOID FACTORS CAN BE FOUND IN RHEUMATOID ARTHRITIS, SYPHILIS, VIRAL INFECTIONS, LEPROSY, CHRONIC LIVER DISEASE, NEOPLASMS, AND OTHER INFLAMMATORY CONDITIONS. RF PREVALENCE ALSO INCREASES WITH AGE. THUS A POSITIVE TEST IS NOT RESTRICTED TO RA. CONVERSELY, A NEGATIVE TEST DOES NOT RULE OUT RA, RHEUMATOID FACTORS ARE NOT DETECTABLE IN 10% OF ADULTS WITH THE DISEASE. El Rodríguez MD CHEMISTRY ORDERABLES Final Resul t Performing Organization Address [facility] de Phone Number [facility] [place] [address] * ERYTHROCYTE SEDIMENTATION RATE (ESR) (03/20/2020 12:27 PM CDT) ESR (SED RATE, ERYTHROCYTE SEDIMENTATION RATE) 11 <30 mm/h 03/20/2020 12:53 PM CDT [facility] Comment:Patients presenting with abnormally high or low RBC counts and other hemoglobinopathies could affect the results for the erythrocyte sedimentation rate (ESR). Results should be clinically correlated. Blood Venipuncture / Unknown 03/20/2020 12:27 PM CDT 03/20/2020 12:43 PM CDT us El Rodríguez MD HEMATOLOGY ORDERABLES Final Resu lt Performing Organization Address City/[facility]/ZIP Co de Phone Number [facility] [place] [address] * (ABNORMAL) C-REACTIVE PROTEIN (CRP) QUANT (03/20/2020 12:27 PM CDT) C-REACTIVE PROTEIN 2.92(H) <0.50 mg/dL 03/20/2020 1:11 PM CDT [facility] Blood Venipuncture / Unknown 03/20/2020 12:27 PM CDT 03/20/2020 12:43 PM CDT us El Rodríguez MD CHEMISTRY ORDERABLES Final Resul t Performing Organization Address City/[facility]/ZIP Co de Phone Number [facility] [place] [address] * (ABNORMAL) CMP (COMPREHENSIVE METABOLIC PANEL) (03/20/2020 12:27 PM CDT) SODIUM 138 136 - 144 mmol/L 03/20/2020 1:10 PM CDT [facility] POTASSIUM 3.7 3.5 - 5.1 mmol/L 03/20/2020 1:10 PM CDT [facility] CHLORIDE 102 100 - 110 mmol/L 03/20/2020 1:10 PM CDT [facility] CO2, VENOUS 28 22 - 32 mmol/L 03/20/2020 1:10 PM CDT [facility] ANION GAP 11.7 8.0 - 20.0 mmol/L 03/20/2020 1:10 PM CDT [facility] GLUCOSE 128(H) 70 - 99 mg/dL 03/20/2020 1:10 PM CDT [facility] BUN 11 6 - 20 mg/dL 03/20/2020 1:10 PM CDT [facility] CREATININE, BLOOD 0.70 0.60 - 1.10 mg/dL 03/20/2020 1:10 PM CDT [facility] BUN/CREATININE RATIO 16 12 - 20 ratio 03/20/2020 1:10 PM CDT [facility] TOTAL PROTEIN 6.7 6.0 - 8.3 g/dL 03/20/2020 1:10 PM CDT [facility] ALBUMIN 3.9 3.5 - 5.2 g/dL 03/20/2020 1:10 PM CDT [facility] Comment: The colormetric methods used for the determination of Albumin may lead to falsely elevated test results in patients suffering from renal failure or insufficiency due to interference with other proteins. A/G RATIO 1.4 1.0 - 2.0 03/20/2020 1:10 PM CDT [facility] CALCIUM 9.2 8.9 - 10.3 mg/dL 03/20/2020 1:10 PM CDT [facility] T BILI 0.4 <=1.2 mg/dL 03/20/2020 1:10 PM CDT [facility] SGOT (AST) 15 <=32 U/L 03/20/2020 1:10 PM CDT [facility] SGPT (ALT) 20 <=33 U/L 03/20/2020 1:10 PM CDT [facility] ALKALINE PHOSPHATASE 67 35 - 105 U/L 03/20/2020 1:10 PM CDT [facility] GFR, EST. NONAFRICAN >60 >=60 03/20/2020 1:10 PM CDT [facility] GFR, EST. >60 >=60 020 1:10 PM CDT [facility] Comment: Creatinine Clearance is the preferred criteria for selecting drug dose adjustments in renally impaired patients. ??The GFR is provided as additional pertinent clinical information. GFR is reported in mL/min/1.73 sq m. Blood Venipuncture / Unknown 03/20/2020 12:27 PM CDT 03/20/2020 12:43 PM CDT El Rodríguez MD CHEMISTRY ORDERABLES Final Resul t [facility] [place] [address] * ANTINUCLEAR ANTIBODY (RACHELLE), TITER IF POS (03/20/2020 12:27 PM CDT) RACHELLE SCREEN Negative Negative titer 03/21/2020 12:02 PM CDT [facility] Comment: Antinuclear autoantibodies not detected by IFA at a 1:80 screening dilution of HEp-2 cells. Blood Venipuncture / Unknown 03/20/2020 12:27 PM CDT 03/20/2020 12:43 PM CDT us El Rodríguez MD IMMUNOLOGY ORDERABLES Final Resu lt [facility] [address] [place] [address], [place] documented in this encounter Visit Diagnoses Diagnosis Osteoarthritis of both knees, unspecified osteoarthritis type- Primary Osteoarthritis of both knees, unspecified osteoarthritis type Osteoarthritis of both knees, unspecified osteoarthritis type documented in this encounter
--- OUTSIDE RECORDS SUMMARY | 2024-07-11 07:08 | XMS_ITS | Encounter Summary ---
Author Organization [facility] Address [address] [facility] [address] Phone Care Team Providers Care Emergency Generator Mechanic Name Role Phone Baldomero Dominguez MD Primary Care Provider [phone] Reason for Referral * Radiology Services (Routine) - Closed Specialty Diagnoses / Procedures Referred By Vianca montiel Referred To Contact Radiology Diagnoses Osteoarthritis of both knees, unspecified osteoarthritis type Procedures EKG 12 LEAD El Rodríguez MD Phone: tel: fax: Referral ID Status Reason Start Date Expiration Date Visits Re quested Visits Authorized [id number] Closed 03/19/2020 1 1 Reason for Visit * Radiology Services (Routine) - Closed Specialty Diagnoses / Procedures Referred By Vianca montiel Referred To Contact Radiology Diagnoses Osteoarthritis of both knees, unspecified osteoarthritis type Procedures EKG 12 LEAD El Rodríguez MD Phone: tel: fax: Referral ID Status Reason Start Date Expiration Date Visits Re quested Visits Authorized [id number] Closed 03/19/2020 1 1 Encounter Details Date Type Department Care Team (Latest Contact Info) Description 03/20/2020 12:30 PM CDT [facility] [address] [place] [address] El Rodríguez MD [address] [place] [address] Discharge Disposition: Discharged to home or Selfcare [...] Associated Diagnosis Comments EKG 12 LEAD Routine 03/20/2020 1:01 PM CDT Osteoarthritis of both knees, unspecified osteoarthritis type documented in this encounter Results * EKG 12 LEAD (03/20/2020 1:01 PM CDT) Ventricular Rate BPM EXTERNAL EKG Atrial Rate BPM EXTERNAL EKG P-R Interval 168 ms EXTERNAL EKG QRS Duration 92 ms EXTERNAL EKG Q-T Duration 328 ms EXTERNAL EKG QTC CALCULATION 404 ms EXTERNAL EKG P [place] 55 degrees EXTERNAL EKG R [place] 34 degrees EXTERNAL EKG T [place] 38 degrees EXTERNAL EKG 03/20/2020 1:01 PM CDT Impressions EXTERNAL EKG - 03/21/2020 11:18 AM CDT Sinus rhythm rSr'(V1) - probable normal variant Anterior T wave abnormality is nonspecific Comparison Summary: No serial comparison made Summary: Borderline ECG Confirmed by Sary Pizano [id number] on 03/21/2020 11:18:42 AM Narrative Procedure Note Halima Okeefe MD - 03/21/2020 IMPRESSION: Sinus rhythm rSr'(V1) - probable normal variant Anterior T wave abnormality is nonspecific Comparison Summary: No serial comparison made Summary: Borderline ECG Confirmed by Sary Pizano [id number] on 03/21/2020 11:18:42 AM El Rodríguez MD IMG ECG ORDERABLES Final Result EXTERNAL EKG documented in this encounter Visit Diagnoses Diagnosis Osteoarthritis of both knees, unspecified osteoarthritis type documented in this encounter Care Teams Emergency Generator Mechanic Relationship Specialty Start Date End Date Baldomero Dominguez MD [address] [address] PCP - General Family Medicine 03/20/20 documented as of this encounter
--- OUTSIDE RECORDS SUMMARY | 2024-07-11 07:09 | XMS_ITS | Clinical Summary ---
Author Organization [facility] Address [address] [place] [address] Care Team Providers Care Bone Plant Supervisor Name Role Phone Baldomero Dominguez MD Primary Care Provider [phone] [address] Gonzalez MD Unavailable Pee Villasenor MD Unavailable [phone] Allergies Active Allergy Reactions Criticality Noted Date Comments Cefaclor Hives Medium 12/24/2020 Medications multivit hasmxyms-gnqs-S A-calcium (THERA-M) 9 mg iron-400 mcg tablet Take 1 tablet by mouth 2 (two) times a day 60 tablet 11 0 Active Additional Information Patient taking differently:1 tablet oralEvery morning, Informant: Self, Reported on 12/07/2022 cyclobenzaprine (FLEXERIL) 5 mg tablet Take 1 tablet (5 mg total) by mouth 3 (three) times a day as needed for muscle spasms Active Active Problems Problem Noted Date Diagnosed Date TRACE (obstructive sleep apnea) 11/12/2023 Assessment & Plan (02/23/2024 4:04 PM CDT): The patient is intolerant of CPAP therapy. The patient needs to treat obstructive sleep apnea. I have ordered her the oral appliance. The patient is aware that the severity of her obstructive sleep apnea may not adequately treat the episodes throughout the night. The patient is aware the an oral appliance would offer some treatment but not complete treatment. The patient is also aware that she should work on weight management. Assessment & Plan (11/12/2023 12:13 PM CDT): Due to the history of TRACE and continued symptoms, I have recommended the patient complete a nocturnal polysomnogram with split night protocol. The patient and I also discussed an in-home nocturnal polysomnogram. The patient is reluctant to resume CPAP therapy. The patient has chose an in-home nocturnal polysomnogram if possible. I have discussed the need to treat the obstructive sleep apnea with CPAP, oral appliance, and the inspire. I did instruct the patient not to take any sedative like medications due to untreated TRACE. The patient verbalized understanding. The patient states she has not falling asleep while driving, instructed not to operate a vehicle if tired. 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 Currently asymptomatic - no recurrent vaginal bleeding or other symptoms. Discussed recommendation for surgical management and need for staging with RA-TLH, BSO, SLNB, possible cystoscopy and other indicated procedures. She was counseled regarding risks of surgery, especially in setting of previous surgical history and is aware of risks of bleeding, infection, damage to surrounding structures and need to possibly convert to ex-lap. She would like to proceed with surgery and consents signed today. She was also counseled regarding possible need for further treatment following surgery. Plan: - Consented for RA-TLH, BSO, SLNB, possible ex-lap, other indicated procedures - Case request submitted - Recommended follow up with cardiology in setting of untreated SVT - Will need CPAP evaluation Abnormal uterine and vaginal bleeding, unspecifi ed 11/25/2021 Overview (11/25/2021): Added automatically from request for surgery [id number] Morbid obesity due to excess calories 02/15/2020 Overview (02/15/2020): Added automatically from request for surgery [id number] Diastolic dysfunction 03/09/2019 Hyperlipidemia 12/06/2018 Left atrial dilatation 07/27/2018 Left ventricular hypertrophy 07/27/2018 Seasonal allergic rhinitis 07/27/2018 History of supraventricular tachycardia 07/27/19 19 Morbid obesity 01/07/2017 Crohn's disease (CMS/HCC) 01/07/2017 Paroxysmal supraventricular tachycardia 01/08/20 17 Arthralgia of hip 09/26/2015 Encounters Date Type Department Care Team Description 05/10/2024 10:15 AM CDT Office Visit [facility] [address] [place] [address] Pee Villasenor MD History of endometrial cancer (Primary Dx); Intertrigo 05/09/2024 Telephone [facility] [address] [place] [address] Sobia Bell NP 04/13/2024 Telephone [facility] [address] [place] [address] Lisa Patterson NP from Last 3 Months Surgical History Surgery Date Site/Laterality Comments CHOLECYSTECTOMY SECTION FUNCTIONAL ENDOSCOPIC SINUS SURGERY KNEE ARTHROSCOPY W/ MENISCAL REPAIR 03/01/2020 Left GASTRIC BYPASS 07/16/2020 LAPAROSCOPIC GASTRECTOMY - SLEEVE ESOPHAGOGASTRODUODENOSCOPY 03/01/2020 ESOPHAGOGASTRODUODEN OSCOPY BIOPSY DILATION AND CURETTAGE OF UTERUS HYSTERECTOMY OOPHORECTOMY 11/23/2022 - 12/23/2022 Medical History Medical History Date Comments Morbid obesity (HCC) Hypertension tx in past lost over 100lbs no medications at this time Anemia takes iron daily Arthritis Heart disease Joint pain Supraventricular tachycardia by ECG ([facility]) patient states stopped own on 2 yrs ago medication Sleep apnea does use cpap Heart murmur Allergic rhinitis Crohn's disease (CMS/HCC) (HCC) Left knee injury states wears br lynette occurred at work seeing Dr for injections Abnormal uterine and vaginal bleeding, unspecified patient states unsure of las t time noted of date Rheumatoid arthritis (HCC) Family History Medical History Relation Name Comments Stroke Maternal Grandmother Cancer Mother Family history of malignant neoplasm - (Added by TW Conv) Depression Mother Diabetes Mother Family history of diabetes mellitus - (Added by TW Conv) Hypertension Mother Family history of hypertension - (Added by TW Conv) Obesity Mother Overweight - (A dded by TW Conv) Anesthesia problems Sister PONV Breast cancer Neg Hx Ovarian cancer Neg Hx Relation Name Status Comments Maternal Grandmother Mother Sister Social History Tobacco Use Types Packs/Day Years Used Date Smoking Tobacco: Never Passive Smoke Exposure: Current Smokeless Tobacco: Never Tobacco Cessation:Counseling Given: Not Answered Alcohol Use Standard Drinks/Week Comments Yes 0 (1 standard drink = 0.6 oz pur e alcohol) occasional wine AUDIT-C Answer Date Recorded Q1: How often do you have a drink containing alc ohol? Monthly or less 11/02/2023 Q2: How many drinks containi ng alcohol do you have on a typical day when you are drinking? 1 or 2 11/02/2023 Q3: How often do you have si x or more drinks on one occasion? Never 11/02/2023 Hunger Vital Sign Answer Date Recorded Within the past 12 months, y ou worried that your food would run out before you got the money to buy more. Patient declined Within the past 12 months, t he food you bought just didn't last and you didn't have money to get more. Patient declined Personal Safety Answer Date Recorded Have you ever been in or are you currently in a harmful physical or emotional relationship or is someone making you feel afraid or unsafe? Denies 12/07/2022 Comments No Sex and Gender Information Value Date Recorded Sex Assigned at Not on file Legal Sex Female 1:19 PM GARAGE LABORER Gender Identity Not on file Sexual Orientation Not on file Obstetrics History Para Term AB IAB SAB Ectopic Multiple Livin g Live Births 2 2 Date Outcome GA Total Labor Labor/2nd/3rd Weight Sex Type Anes PTL Rona A1 A5 Name Clin Para Para Comments Last Filed Vital Signs Vital Sign Reading Time Taken Comments Blood Pressure 124/80 05/10/2024 10:28 AM CDT Pulse 66 02/23/2024 3:33 PM CDT Temperature 36.9 ??C (98.4 ??F) 02/23/2024 3:33 PM CD T Respiratory Rate 18 02/23/2024 3:33 PM CDT Oxygen Saturation 98% 02/23/2024 3:33 PM CDT Inhaled Oxygen Concentration - - Weight 108.9 kg (240 lb) 05/10/2024 10:28 AM CDT Height 165.1 cm (5' 5 ) 05/10/2024 10:28 AM CDT Body Mass Index 39.94 05/10/2024 10:28 AM CDT Plan of Treatment Health Maintenance Due Date Last Done Comments Colon Cancer Screening-Colonoscopy 1965 Depression Screening 1965 DTaP/Tdap/Td Vaccine (1 - Tdap) 1978 Hepatitis B Screening 1985 Zoster Vaccine (1 of 2) 2017 Breast Cancer Screening-Mammogram 05/30/2019 05/30/2018, 08/11/2013 Covid-19 Vaccine ( season) 2024 05/09/2021, 04/18/2021 Influenza Vaccine (#1) 2024 06/19/2020 Regular Well Visit/Exam 18-64 11/07/2024 11/08/2023, 05/21/2022 Colon Cancer Screening-FIT Discontinued 06/23/2016 Hepatitis C Screening Completed 05/14/2020 Cervical Cancer Screening Discontinued 2023, 05/21/2022 Pneumococcal vaccine <65 Aged Out No longer eligible based on patient's age to complete this topic Procedures Procedure Name Priority Date/Time Associated Diagnosis Comments PAP AND HIGH RISK HPV, REFLEX TO GENOTYPING Routine 11/08/2023 11:28 AM CDT Screening for vaginal cancer HEPATITIS C ANTIBODY Routine 05/14/2020 8:25 AM CDT SCREENING MAMMOGRAM BILATERAL W CARLOS Routine 05/30/2018 11:42 AM GARAGE LABORER OCCULT BLOOD, FECAL (FIT) Routine 06/23/2016 6:06 PM GARAGE LABORER from Last 3 Months or Most Recently Relevant to Health Maintenance Results * Pap and High Risk HPV and Genotyping (Cytology Component) (11/08/2023 11:28 AM CDT) Thin prep (Pap test) 11/08/2023 11:28 AM CDT 11/08/2023 4:23 PM CDT Narrative PATHOLOGY [facility] - 11/11/2023 2:07 PM CDT EPIC results best viewed via link to PDF [facility] [place] [address] Note to Patients: This report may contain a detailed description of human tissue sent by a health care provider to the laboratory for pathologic evaluation. The content of this report is essential for diagnosis and may provide important critical findings. This information may be unfamiliar to patients to review without a medical professional present. It is advised that the patient review this report in the presence of a health care provider who can answer questions and explain the details. CYTOPATHOLOGY REPORT FINAL Patient Name: ??ROWENA QUESADA Gender: ??F : ??1965 (Age: 58) Address: [address] [place] [place], [place] ??[address] Hospital #: ??[id number] Service: ??UNKNOWN Location: ?? Patient Type: ??[facility] SPECIMEN Taken: ??11/08/2023 Received: ??11/08/2023 Accessioned: ??11/09/2023 Reported: ??11/11/2023 Physician(s): ??Pee Villasenor M.D. ?? FINAL INTERPRETATION SOURCE OF SPECIMEN ? Liquid based Thin Prep pap with HPV: STATEMENT OF ADEQUACY ?- Satisfactory for evaluation, vaginal smear ? GENERAL CATEGORIZATION: ?- Negative for squamous intraepithelial lesion or malignancy ? Comments (Normal-Negative for High Risk HPV) HPV HR 16 vaginal- Negative ? HPV HR 18 vaginal- Negative ? HPV HR non 16/18 vaginal- Negative Comment: The following Other High Risk HPV types were not detected: 31, 33, 35, 39, 45, 51, 52, 56, 58, 59, 66, and 68 ADDITIONAL INFORMATION Testing was performed using the arturo HPV assay ([employer] This test has been modified from the hard rock miner's instructions. Its performance characteristics were determined by [facility] in a manner consistent with CLIA requirements. This test has not been cleared or approved by the U.S. Food and Drug Administration. Test Performed by: [address] [address] Break Up Worker: Pee Maria M.D. Ph.D.; CLIA# [id number] [facility]/11/11/2023 14:07 MISSY Cheung (ASCP) Report Electronically Reviewed and Signed Out By MISSY Cheung (ASCP) 11/11/2023 14:07:21 Cervicovaginal Cytology (Pap Test) Disclaimer: The Pap test is a screening test used to detect cervical cancer and its precursors; it is not a diagnostic procedure. False negative and false positive results do occur. Pap test results should be interpreted in the context of pertinent clinical information and biopsy results as indicated. [facility] Clinical Laboratory Improvement Amendments (CLIA) mandate that cytologic and histologic results be correlated for laboratory quality control projectionist & improvement standards. ??FOR ALL HIGH-GRADE CASES we request submission of follow-up histological material and/or reports that have not been previously provided so that we may fulfill said required standards. ?? Gross Description A. ??Liquid based Thin Prep pap with HPV: ?Vaginal - Screening ThinPrep Clinical Diagnosis and History Last Menstrual Period: HYST The patient is a 58 year old female with hyst ??d/t ??abnormal cells. Report Images and scanned documents, if included only viewable in PDF version The performance characteristics of some immunohistochemical stains, in-situ hybridization and fluorescence in-situ hybridization tests and immunophenotyping by flow cytometry cited in this report (if any) were determined by the Surgical Pathology Department at [facility] as part of an ongoing quality assurance consultant program and in compliance with federally mandated regulations drawn from the Clinical Laboratory Improvement Act of 1988 (CLIA '88). ??Some of these tests rely on the use of analyte specific reagents and are subject to specific labeling requirements by the US Food and Drug Administration. ??Such diagnostic tests may only be performed in a facility that is certified by the Department of Health and Human Services as a high complexity laboratory under CLIA '88. ??The FDA has determined that such clearance or approval is not necessary. ??This test is used for clinical purposes. ??It should not be regarded as investigational or for research. ??Nevertheless, federal rules concerning the medical use of analyte specific reagents require that the following disclaimer be attached to the report: This test was developed and its performance characteristics determined by the Surgical Pathology Department of [facility]. ??It has not been cleared or approved by the U. S. Food and Drug Administration. Pee Villasenor MD LAB CYTOLOGY ORDERABLES Final Result PATHOLOGY [facility] * Hepatitis C antibody (05/14/2020 8:25 AM CDT) Hep C Ab NONREACT NONREACTIVE [facility] Comment: [employer] using JACKELYN (chemiluminescent immunoassay) technology. NONREACTIVE: Antibodies to Hepatitis C not detected. This does not exclude early acute Hepatitis C infection, possibility of exposure to Hepatitis C, antibodies below detection limit, or to lack of antibody reactivity to the antigen used in this assay. EQUIVOCAL: Antibodies to Hepatitis C may or may not be present. ??Sample to be confirmed by real-time PCR method. REACTIVE: Antibodies to Hepatitis C detected.Sample to be confirmed by real-time PCR method. 05/14/2020 8:25 AM CDT 05/14/2020 8:27 AM CDT Narrative Resulting Agency Comment ER Michelle MAURICE LAB MICROBIOLOGY - GENERAL OR DERABLES Final Result Performing Organization Address City/[facility]/ZIP Co de Phone Number [facility] [address] [place] [address], [facility] [phone] * Screening Mammogram Bilateral W Carlos (05/30/2018 11:42 AM GARAGE LABORER) Anatomical Region Laterality Modality Breast Bilateral Mammography 05/30/2018 11:4 2 AM GARAGE LABORER Impressions 05/30/2018 1:36 PM GARAGE LABORER BI-RAD 2 ??BENIGN There is no mammographic evidence of malignancy. A 1 year screening mammogram is recommended. ?? The patient has been or will be contacted. ?? The patient will be entered into a reminder system with a target due date of 1 year for her next screening exam. Electronically signed by: Hernán Townsend M.D., md/:05/30/2018 13:34:56 ?? Facilities Maintenance Assistant: Lorie Erickson, [facility] letter sent: Normal Exam ?? Reading location: [facility] BI-RADS: 2 Benign [EOD] Narrative 05/30/2018 1:36 PM GARAGE LABORER - MG BILATERAL DIGITAL SCREENING MAMMOGRAM 3D/2D WITH MEDIOLATERAL OBLIQUE CRANIOCAUDAL: 05/30/2018 The study was acquired using full field digital technology and interpreted from soft copy. ?? 2D digital mammographic views, as well as 3D digital tomosynthesis were performed in the CC and MLO projections. CLINICAL: Routine mammogram. Denies any problems today. No personal history of breast cancer. No family history of breast cancer. ?? COMPARISONS: Comparison is made to exams dated: ??08/18/2013 mammogram/ultrasound and 08/11/2013 mammogram - [facility]. ?? BREAST TISSUE: The tissue of both breasts is heterogeneously dense, which may obscure small masses. ?? FINDINGS: ??There is a left breast mass at 12-1 o'clock, shown to correspond with a benign cyst on prior ultrasound. No suspicious masses, calcifications, or other findings are seen in either breast. ??There has been no significant interval change. Procedure Note Provider, MD Adry - 12/09/2020 - MG BILATERAL DIGITAL SCREENING MAMMOGRAM 3D/2D WITH MEDIOLATERAL OBLIQUE CRANIOCAUDAL: 05/30/2018 The study was acquired using full field digital technology and interpretedfrom soft copy. 2D digital mammographic views, as well as 3D digital tomosynthesis were performed in the CC and MLO projections. CLINICAL: Routine mammogram. Denies any problems today. No personalhistory of breast cancer. No family history of breast cancer. COMPARISONS: Comparison is made to exams dated: 08/18/2013mammogram/ultrasound and 08/11/2013 mammogram - [facility]. BREAST TISSUE: The tissue of both breasts is heterogeneously dense, whichmay obscure small masses. FINDINGS: There is a left breast mass at 12-1 o'clock, shown tocorrespond with a benign cyst on prior ultrasound. No suspicious masses, calcifications, or other findings are seen in either breast. There has been no significant interval change. IMPRESSION: BI-RAD 2 BENIGN There is no mammographic evidence of malignancy. A 1 year screeningmammogram is recommended. The patient has been or will be contacted. The patient will be entered into a reminder system with a target due dateof 1 year for her next screening exam. Electronically signed by: Hernán Townsend M.D., md/:05/30/2018 13:34:56 Facilities Maintenance Assistant: Lorie Erickson, [facility] letter sent: Normal Exam Reading location: [facility] BI-RADS: 2 Benign [EOD] us Baldomero Dominguez MD IMG MAMMO PROCEDURES Final Resul t * Occult blood, fecal non neoplasm screening (06/23/2016 6:06 PM GARAGE LABORER) Stool Occult Blood NEGATIVE NEGATIVE 06/25/2016 3:33 PM GARAGE LABORER [facility] HISTORICAL RESULTS 06/23/2016 6:06 PM GARAGE LABORER 06/25/2016 2:52 PM GARAGE LABORER us aBldomero Dominguez MD LAB BODY FLUIDS AND STOOLS ORDER NICOLE Final Result [facility] JackBe HISTORICAL RESULTS from Last 3 Months or Most Recently Relevant to Health Maintenance Insurance [facility] Advance Directives For more information, please contact: [phone] * Full Code (Latest Code Status on File) Date Activated Date Inactivated Comments 07/16/2020 12:50 PM 07/17/2020 9:37 PM Care Teams Bone Plant Supervisor Relationship Specialty Start Date End Date Baldomero Dominguez MD PCP - General 01/07/17 Lane Gonzalez MD [address] [place] [address] [place] [id number] Consulting Physician Interventional Cardiology 12/18/21 Pee Villasenor MD [address] [place] [address] [place] [id number] Consulting Physician Obstetrics and Gynecology 12/26/21
--- OUTSIDE RECORDS SUMMARY | 2024-07-11 07:09 | XMS_ITS ---
Author Organization [facility] Address [address] [place] [address] Care Team Providers Care Stamp Clerk Name Role Phone Baldomero Dominguez MD Primary Care Provider [phone] Lane Gonzalez MD Unavailable [phone] Pee Villasenor MD Unavailable [phone] Active Problems Problem Noted Date Diagnosed Date [...] operate a vehicle if tired. 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 in early 2021 - US on 10/02/21 showed EMS 1.7cm - [facility] D&C 12/26/21, path with figo grade 1 endometrioid adenocarcinoma in association with CAH (pathology reviewed at [facility]) - Last pap 05/21/22: NILM neg HPV [...] (11/25/2021): Added automatically from request for surgery [id number] Morbid obesity due to excess calories 02/15/2020 Overview (02/15/2020): Added automatically from request for surgery [id number] Diastolic dysfunction 03/09/2019 Hyperlipidemia 12/06/2018 Left atrial dilatation 07/27/2018 Left ventricular hypertrophy 07/27/2018 Seasonal allergic rhinitis 07/27/2018 History of supraventricular tachycardia 07/27/19 19 Morbid obesity 01/07/2017 Crohn's disease (CMS/HCC) 01/07/2017 Paroxysmal supraventricular tachycardia 01/08/20 17 Arthralgia of hip 09/26/2015 Current Oncology Plans No current plan information found. Past Plans No past plan information found. Radiation Treatments * No radiation treatments are documented for this patient in [facility]. Treatments may have been administered in another system. Lifetime Dose Tracking * Chemical Lifetime Dose Automatic Entry Manual Entr y Fluoro Time 3.3 minutes 3.3 minutes 0 minutes
--- OUTSIDE RECORDS SUMMARY | 2024-07-11 07:09 | XMS_ITS | Referral Summary ---
Author Organization [facility] Address [address] [place] [address] Care Team Providers Care Bariatric Coordinator Name Role Phone Baldomero Dominguez MD Primary Care Provider Lane Gonzalez MD Unavailable Pee Villasenor MD Unavailable [phone] Encounters Date Type Department Care Team Description 05/10/2024 10:15 AM CDT Office Visit [facility] Obstetrical Gynecology [address] [facility] [facility] [address] [place] [address] Pee Villasenor MD History of endometrial cancer (Primary Dx); Intertrigo 05/09/2024 Telephone [facility] Pulmonology [facility] [address] [place] [address] Sobia Bell NP 04/13/2024 Telephone [facility] Pulmonology [address] [place] [address] Lisa Patterson NP from Last 3 Months Allergies Active Allergy Reactions Criticality Noted Date Comments Cefaclor Hives Medium 12/24/2020 Medications multivit zmwdjzla-emrr-N A-calcium (THERA-M) 9 mg iron-400 mcg tablet [...] operate a vehicle if tired. Endometrial cancer ([facility]/HCC) 11/09/2022 Overview (11/11/2022): - Initially presented to primary DIRECTOR OF RELIGIOUS LIFE w/ AUB in early 2021 - US on 10/02/21 showed EMS 1.7cm - [facility] D&C 12/26/21, path with figo grade 1 endometrioid adenocarcinoma in association with CAH (pathology reviewed at [facility]) - Last pap 05/21/22: NILM [...] (11/25/2021): Added automatically from request for surgery [id number] Morbid obesity due to excess calories 02/15/2020 Overview (02/15/2020): Added automatically from request for surgery [id number] Diastolic dysfunction 03/09/2019 Hyperlipidemia 12/06/2018 Left atrial dilatation 07/27/2018 Left ventricular hypertrophy 07/27/2018 Seasonal allergic rhinitis 07/27/2018 History of supraventricular tachycardia 07/27/19 19 Morbid obesity 01/07/2017 Crohn's disease ([facility]) 01/07/2017 Paroxysmal supraventricular tachycardia 01/08/20 17 Arthralgia of hip 09/26/2015 Social History Tobacco Use Types Packs/Day Years [...] on file 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 Gender Identity Not on file Sexual Orientation [...] 05/10/2024 10:28 AM CDT Plan of Treatment Not on file Procedures Procedure Name Priority Date/Time Associated Diagnosis Comments PAP AND HIGH RISK HPV, REFLEX TO GENOTYPING Routine 11/08/2023 11:28 AM CDT Screening for vaginal cancer HEPATITIS C ANTIBODY Routine 05/14/2020 8:25 AM CDT SCREENING MAMMOGRAM BILATERAL W CARLOS Routine 05/30/2018 11:42 AM WAREHOUSE PRICING AND INVENTORY CLERK OCCULT BLOOD, FECAL (FIT) Routine 06/23/2016 6:06 PM WAREHOUSE PRICING AND INVENTORY CLERK from Last 3 Months or Most Recently Relevant to Health Maintenance Results * Pap and High Risk HPV and Genotyping (Cytology Component) (11/08/2023 11:28 AM CDT) Thin prep (Pap test) 11/08/2023 11:28 AM CDT 11/08/2023 4:23 PM CDT Narrative PATHOLOGY [facility] - 11/11/2023 2:07 PM CDT EPIC results best viewed via link to PDF [facility] [place] [address] Note to Patients: This report may contain [...] ??F : ??1965 (Age: 58) Address: ??[address] [place], [place] ??[address] Hospital #: ??[id number] Service: ??UNKNOWN Location: ?? Patient Type: ??[facility] SPECIMEN Taken: ??11/08/2023 Received: ??11/08/2023 Accessioned: ??11/09/2023 [...] performed using the arturo HPV assay ([employer] This test has been modified from the rice drier's instructions. Its performance characteristics were determined by [facility] in a manner consistent with CLIA requirements. This test has not been cleared or approved by the U.S. Food and Drug Administration. Test Performed by: [address] [address] [place] Helper: Pee Maria M.D. Ph.D.; CLIA# [id number] [facility]/11/11/2023 14:07 MISSY Cheung (ASCP) Report Electronically Reviewed [...] clinical information and biopsy results as indicated. [facility] Clinical Laboratory Improvement Amendments (CLIA) mandate that cytologic and histologic results be correlated for laboratory research quality assurance analyst & improvement standards. ??FOR ALL HIGH-GRADE CASES [...] determined by the Surgical Pathology Department at [facility] as part of an ongoing research quality assurance analyst program and in compliance with federally mandated [...] determined by the Surgical Pathology Department of [facility]. ??It has not been cleared or approved by the U. S. Food and Drug Administration. Pee Villasenor MD LAB CYTOLOGY ORDERABLES Final Result PATHOLOGY [facility] * Hepatitis C antibody (05/14/2020 8:25 AM CDT) Hep C Ab NONREACT NONREACTIVE [facility] Comment: Siemens CentaurXP using JACKELYN (chemiluminescent immunoassay) technology. NONREACTIVE: Antibodies [...] MICROBIOLOGY - GENERAL OR DERABLES Final Result [address] [phone] * Screening Mammogram Bilateral W Carlos (05/30/2018 11:42 AM WAREHOUSE PRICING AND INVENTORY CLERK) Anatomical Region Laterality Modality Breast Bilateral Mammography 05/30/2018 11:4 2 AM WAREHOUSE PRICING AND INVENTORY CLERK Impressions 05/30/2018 1:36 PM WAREHOUSE PRICING AND INVENTORY CLERK BI-RAD 2 ??BENIGN There is no mammographic evidence of malignancy. A 1 year screening mammogram is recommended. ?? The patient has been or will be contacted. ?? The patient will be entered into a reminder system with a target due date of 1 year for her next screening exam. Electronically signed by: Hernán Townsend M.D., md/:05/30/2018 13:34:56 ?? Angle Bender: Lorie Erickson, [facility] letter sent: Normal Exam ?? Reading location: [facility] BI-RADS: 2 Benign [EOD] Narrative 05/30/2018 1:36 PM WAREHOUSE PRICING AND INVENTORY CLERK - MG BILATERAL DIGITAL SCREENING MAMMOGRAM 3D/2D [...] dated: ??08/18/2013 mammogram/ultrasound and 08/11/2013 mammogram - [facility]. ?? BREAST TISSUE: The tissue of [...] exams dated: 08/18/2013mammogram/ultrasound and 08/11/2013 mammogram - [facility]. BREAST TISSUE: The tissue of both breasts [...] signed by: Hernán Townsend M.D., md/:05/30/2018 13:34:56 Angle Bender: Lorie Erickson, [facility] letter sent: Normal Exam Reading location: [facility] BI-RADS: 2 Benign [EOD] us Baldomero Dominguez MD IMG MAMMO PROCEDURES Final Resul t * Occult blood, fecal non neoplasm screening (06/23/2016 6:06 PM WAREHOUSE PRICING AND INVENTORY CLERK) Stool Occult Blood NEGATIVE NEGATIVE 06/25/2016 3:33 PM WAREHOUSE PRICING AND INVENTORY CLERK [facility] Depop HISTORICAL RESULTS 06/23/2016 6:06 PM WAREHOUSE PRICING AND INVENTORY CLERK 06/25/2016 2:52 PM WAREHOUSE PRICING AND INVENTORY CLERK us Baldomero Dominguez MD LAB BODY FLUIDS AND STOOLS ORDER NICOLE Final Result [facility] Depop HISTORICAL RESULTS from Last 3 Months or Most Recently Relevant to Health Maintenance Insurance [facility] Member Subscriber Plan / Payer (Ef fective 2021-Present) Name:Rowena Quesada Relation to Subscriber:Self Name:Rowena Quesada Payer ID:[id number] (NAIC) Group ID:Not on file Type:MEDICAID RISK OTHER Address: ATTN: CLAIMS DEPT [address] [facility] [place] [id number] [facility] Member Subscriber Plan / Payer (Ef fective 2021-Present) Name:Dipak Rowena Michelle Relation to Subscriber:Self Name:Rowena Quesada Payer ID:[id number] (NAIC) Group ID:Not on file Type:MEDICAID RISK OTHER Address: ATTN: CLAIMS DEPT [address] [facility] [place] [id number] [facility] Advance Directives For more information, please contact: [phone] * Full Code (Latest Code Status on File) Date Activated Date Inactivated Comments 07/16/2020 12:50 PM 07/17/2020 9:37 PM Care Teams Bariatric Coordinator Relationship Specialty Start Date End Date Baldomero Dominguez MD PCP - General 01/07/17 Lane Gonzalez MD [address] [place] [address] [place] [address] Consulting Physician Interventional Cardiology 12/18/21 Pee Villasenor MD [address] [facility] [address] [address] Consulting Physician Obstetrics and Gynecology 12/26/21
--- OUTSIDE RECORDS SUMMARY | 2024-07-11 07:10 | XMS_ITS | Encounter Summary ---
Author Organization [facility] Address [address] [place] [address] Phone Care Team Providers Care Actionscript Developer Name Role Phone Baldomero Dominguez MD Primary Care Provider [phone] Lane Gonzalez MD Unavailable [phone] Pee Villasenor MD Unavailable [phone] Reason for Referral * Diagnostic Imaging (Routine) - Authorized Specialty Diagnoses / Procedures Referred By Contac t Referred To Contact Diagnoses H/O gastric sleeve Intestinal malabsorption, unspecified type BMI 38.0-38.9,adult Procedures FL Esophagram, Single Contrast Montse Hoffman NP [address] [facility] [phone] [place] [address] Phone: tel: fax: [address] [address] Referral ID Status Reason Start Date Expiration Date V isits Requested Visits Authorized [id number] Authorized 11/02/2023 12/01/2024 1 1 Encounter Details Date Type Department Care Team (Late st Contact Info) Description 11/02/2023 3:30 PM CDT Office Visit [facility] Minimally Invasive Surgery [facility] Medical Office Building [address] [place] [phone] Montse Hoffman NP [address] [phone] [place] [address] H/O gastric sleeve (Primary Dx); Intestinal malabsorption, unspecified type; BMI 38.0-38.9,adult Social History Tobacco Use Types Packs/Day Years Used Date Smoking Tobacco: Never Passive Smoke Exposure: Current Smokeless Tobacco: Never Alcohol Use Standard Drinks/Week [...] on file 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 Gender Identity Not on file Sexual Orientation Not on file documented as of this encounter Last Filed Vital Signs Vital Sign Reading Time Taken Comments Blood Pressure 137/80 11/02/2023 3:20 PM CDT Pulse 74 11/02/2023 3:20 PM CDT Temperature 36.4 ??C (97.6 ??F) 11/02/2023 3:20 PM CD T Respiratory Rate - - Oxygen Saturation 98% 11/02/2023 3:20 PM CDT Inhaled Oxygen Concentration - - Weight 104.8 kg (231 lb) 11/02/2023 3:20 PM CDT Height 165.1 cm (5' 5 ) 11/02/2023 3:20 PM CDT Body Mass Index 38.44 11/02/2023 3:20 PM CDT documented in this encounter Progress Notes * Montse Hoffman, [facility] - 11/02/2023 3:30 PM CDT [facility] Metabolic & Weight Loss Surgery Bariatric Surgery Long-Term Post-Operative Visit DIAGNOSIS: Weight loss secondary to Laparoscopic Sleeve Gastrectomy. HISTORY OF PRESENT ILLNESS: The patient is a 58 y.o. female who was seen for monitoring of weight loss and screening for possible medical complications and nutritional deficiencies. She underwent bariatric surgery 4 years ago. Measurements in clinic today are Ht:165.1 cm (5' 5 ) Wt:104.8 kg (231 lb). CURRENT POST-OPERATIVE FINDINGS: The patient is doing well in her postoperative course. The patient has lost 52 pounds since surgery. Wt Readings from Last 10 Encounters: 11/02/23 104.8 kg (231 lb) 02/08/23 100.2 kg (221 lb) 12/23/22 99.7 kg (219 lb 14.4 oz) 12/02/22 98.4 kg (217 lb) 11/26/22 98 kg (216 lb 0.8 oz) 11/11/22 98.1 kg (216 lb 3.2 oz) 10/14/22 98.4 kg (217 lb) 05/21/22 95.3 kg (210 lb) 11/25/21 93.9 kg (207 lb) 10/01/21 91.2 kg (201 lb) The patient is tolerating a bariatric high protein, low carbohydrate diet. The patient is getting 3meals and 2-3 snacks per day. The patient is not getting her protein in daily. She states she is having difficulty with swallowing. She states she does eat some bread and some pasta but does not eat rice. She states she chews food well before swallowing. She states she does wait between bites. She states she is able to eat pizza. The patient has the following conditions: TRACE: yes, and is not using CPAP she is using a jaw device GERD: no Hypertension: no Hyperlipidemia: no Diabetes: no CURRENT MEDICAL CONDITIONS: Patient Active Problem List Diagnosis Arthralgia of hip Morbid obesity (HCC) Crohn's disease (CMS/HCC) ([facility]) Paroxysmal supraventricular tachycardia (HCC) Morbid obesity due to excess calories ([facility]) Abnormal uterine and vaginal bleeding, unspecified Hyperlipidemia Left atrial dilatation Left ventricular hypertrophy Seasonal allergic rhinitis History of supraventricular tachycardia Diastolic dysfunction Endometrial cancer (CMS/HCC) ([facility]) ALLERGIES: She is allergic to cefaclor. MEDICATIONS: She has a current medication list which includes the following prescription(s): multivit jwzqkvbf-rgtz-yy-calcium and cyclobenzaprine. PAST MEDICAL HISTORY: She has a past medical history of Abnormal uterine and vaginal bleeding, unspecified, Allergic rhinitis, Anemia, Arthritis, Crohn's disease (CMS/HCC) ([facility]), Heart disease, Heart murmur, Hypertension,Joint pain, Left knee injury, Morbid obesity ([facility]), Rheumatoid arthritis ([facility]), Sleep apnea, and Sup raventricular tachycardia by ECG ([facility]). She has no past medical history of Awareness under anesthesia, Delayed emergence from general anesthesia, Hard to intubate, Malignant hyperthermia, Motion sickness, PONV (postoperative nausea and vomiting), or Pseudocholinesterase deficiency. PAST SURGICAL HISTORY: She has a past surgical history that includes Cholecystectomy; section; Functional endoscopic sinus surgery; Knee arthroscopy w/ meniscal repair (Left, 03/01/2020); Gastric bypass (07/16/2020); Esophagogastroduodenoscopy (03/01/2020); Dilation and curettage of uterus; and Hysterectomy. FAMILY HISTORY: Her family history includes Anesthesia problems in her sister; Cancer in her mother; Depression in her mother; Diabetes in her mother; Hypertension in her mother; Obesity in her mother; Stroke in hermaternal grandmother. SOCIAL HISTORY: She reports that she has never smoked. She has been exposed to tobacco smoke. She has never used smokeless tobacco. She reports that she does not use drugs. Patient reports consuming alcoholic drinksmonthly or less, with a daily consumption of 1 or 2 drinks. Patient denies daily consumption of 6 or more alcoholic drinks at one occasion. REVIEW OF SYSTEMS: Negative except as noted in HPI. PHYSICAL EXAMINATION: Ht:.FLOWAMB[11 Wt:104.8 kg (231 lb) Body mass index is 38.44 kg/m??. BP 137/80 (BP Location: Right arm, Patient Position: Sitting) Pulse 74 Temp 36.4 ??C (97.6 ??F)(Oral) Ht 165.1 cm (5' 5 ) Wt 104.8 kg (231 lb) LMP 11/17/2021 SpO2 98% BMI 38.44 kg/m?? Constitutional: Well nourished, NAD. HENT: Head normocephalic, atraumatic, no evidence of abnormalities. No gross nasal drainage. Mouth: oral mucosa pink and moist. Neck: Soft supple without masses. Trachea midline. Eyes: Sclera clear. Conjunctivae wnl. No lid abrasions/lacerations. Respiratory: CTA. No use of accessory muscles. Good respiratory effort. Cardiovascular: RRR Abdomen: Soft without distention, tenderness, rebound, guarding, rigidity. Psychiatric: Mood and affect WNL. Judgement and insight intact. ASSESSMENT AND PLAN: 1. Weight loss secondary to a Laparoscopic Sleeve Gastrectomy procedure. 2. The current diet and exercise regimens were reviewed in clinic, including protein and average fluid intake. Recommendations for continued safe weight loss, overall health, and nutrition were discussed in detail. The patient was encouraged to continue diversifying the diet and to maintain and expand the exercise program. 3. A return appointment will be scheduled in 12 months for her next post- operative visit with a full set of labs. 4. Barium swallow for patient complaints of difficulty swallowing. Rowena Quesada demonstrates understanding, is amenable to the outlined plan, and there are no barriers to education today. Patient is encouraged to call the clinic with any questions or concerns. I was with Rowena Quesada for 20 minutes of which 15 minutes was spent counseling the patient on nutrition, exercise, continued safe weight loss, and over all health. Montse Hoffman NP Nurse Practitioner Minimally Invasive Surgery Department of Surgery p: [phone] documented in this encounter Plan of Treatment Scheduled Orders Name Type Priority Associated Diagnoses Orde r Schedule FL Esophagram, Single Contrast Imaging Schedule Routine, Read Routine (OP Routine) H/O gastric sleeve Intestinal malabsorption, unspecified type BMI 38.0-38.9,adult Expected: 12/02/2023 (Approximate), Expires: 11/01/2024 documented as of this encounter Visit Diagnoses Diagnosis H/O gastric sleeve- Primary Intestinal malabsorption, unspecified type BMI 38.0-38.9,adult documented in this encounter Discontinued Medications Medication Sig Discontinue Reason Start Date End Da te dilTIAZem (CARDIZEM) 30 mg tablet Take 1 tablet (30 mg total) by mouth 2 (two) times a day 11/19/2022 11/02/2023 cholecalciferol (VITAMIN D-3) 1,000 unit capsule Take 1 capsule (1,000 Units total) by mouth every morning 11/02/2023 albuterol HFA (PROVENTIL HFA,VENTOLIN HFA,PROAIR HFA) 90 mcg/actuation inhaler Inhale 1 puff every 6 (six) hours as needed for wheezing 11/02/2023 acetaminophen (TYLENOL) 500 mg tablet Take 2 tablets (1,000 mg total) by mouth every 6 (six) hours as needed for pain 12/07/2022 11/02/2023 documented as of this encounter Historical Medications * This list may reflect changes made after this encounter. cyclobenzaprine (FLEXERIL) 5 mg tablet Take 1 tablet (5 mg total) by mouth 3 (three) times a day as needed for muscle spasms added in this encounter Care Teams Actionscript Developer Relationship Specialty Start Date End Date Baldomero Dominguez MD PCP - General 01/07/17 Lane Gonzalez MD [address] [place] [address] Consulting Physician Interventional Cardiology 12/18/21 Pee Villasenor MD [address] [place] [address] Consulting Physician Obstetrics and Gynecology 12/26/21 documented as of this encounter
--- OUTSIDE RECORDS SUMMARY | 2024-07-11 07:10 | XMS_ITS | Encounter Summary ---
Author Organization [facility] Address [address] [place] [address] Care Team Providers Care Senior Editor Name Role Phone Baldomero Dominguez MD Primary Care Provider [phone] Lane Gonzalez MD Unavailable Pee Villasenor MD Unavailable [phone] Reason for Referral * Diagnostic Imaging (Routine) - Closed Specialty Diagnoses / Procedures Referred By Contac t Referred To Contact Diagnoses Encounter for screening mammogram for malignant neoplasm of breast Procedures Screening Mammogram 2D Bilateral Pee Villasenor MD [address] [facility] [facility] [address] [place] [address] Phone: tel: fax: [facility] [address] [place] [address] Phone: tel: fax: Referral ID Status Reason Start Date Expiration Date Visits Re quested Visits Authorized [id number] Closed 11/08/2023 12/07/2024 1 1 Reason for Visit * Reason Comments Well Women Visit No fmhx breast cance r Encounter Details Date Type Department Care Team (Late st Contact Info) Description 11/08/2023 11:30 AM CDT Office Visit 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 female. Well Women Visit (No fmhx breast cancer) Last pap:05/21/22 NILM HPV - Mammogram:maybe a year per pt - [facility] [place] Colonoscopy:8 years ago per pt HPI 58-year-old 2, para 2 who presents for well-woman visit. Doing well. No complaints. Status post robotic assisted laparoscopic hysterectomy, bilateral salpingo- oophorectomy with lymph node sampling in November of 2022. Final pathology - Focal endometrioid adenocarcinoma, FIGO grade 1, in association with complex atypical hyperplasia(entire endometrium embedded for microscopic examination) - Limited to the endometrium (no myometrial invasion identified) Denies abdominal pain, bleeding or discharge. Doing self-breast exams. No breast issues. Mammogram is due. Colonoscopy is up-to-date. Review of Systems Constitutional: Negative for activity change, appetite change, fatigue and unexpected weight change. HENT: Negative for sinus pressure and sore throat. Eyes: Negative for visual disturbance. Respiratory: Negative for shortness of breath. Cardiovascular: Negative for chest pain. Gastrointestinal: Negative for abdominal pain, nausea and vomiting. Endocrine: Negative for cold intolerance and polyuria. Genitourinary: Negative for difficulty urinating, dyspareunia, dysuria, hematuria, menstrual problem, pelvic pain, urgency, vaginal bleeding, vaginal discharge and vaginal pain. Musculoskeletal: Negative for back pain. Skin: Negative for color change and rash. Neurological: Negative for dizziness and weakness. Psychiatric/Behavioral: Negative for agitation, sleep disturbance and suicidal ideas. The patient is not nervous/anxious. Breast: Negative for tenderness, breast redness, breast discharge and lump(s). Objective Physical Exam Vitals and nursing note reviewed. Exam conducted with a research physiologist present. Constitutional: Appearance: She is well-developed. HENT: Head: Normocephalic. Eyes: General: No scleral icterus. Cardiovascular: Rate and Rhythm: Normal rate and regular rhythm. Pulmonary: Breath sounds: Normal breath sounds. Chest: Breasts: Breasts are symmetrical. Right: No mass or skin change. Left: No mass or skin change. Abdominal: Palpations: Abdomen is soft. Tenderness: There is no abdominal tenderness. Genitourinary: Rectum: No external hemorrhoid. Genitourinary Comments: Genitourinary Comments: Vulva: No vulvar lesions, no masses Urethra: Normal: Vagina: Normal mucosa, no visible or palpable lesions. KING Moderate vaginal atrophy Cervix: Absence Uterus: Absent Adnexa: Not enlarged or tender. Rectal exam negative Skin: General: Skin is warm and dry. Neurological: Mental Status: She is alert and oriented to person, place, and time. Gait: Gait normal. Psychiatric: Behavior: Behavior normal. Judgment: Judgment normal. Assessment/Plan Diagnoses and all orders for this visit: Well woman exam (Primary) Continue present management. Pap smear obtained. Continue self-breast exams. Mammogram order provided. Screening for vaginal cancer - Pap and High Risk HPV and Genotyping (Cytology Component); Future - Vaginal High Risk HPV DNA Detection with Genotyping (Molecular component); Future Encounter for screening mammogram for malignant neoplasm of breast - Screening Mammogram 2D Bilateral; Future Endometrial cancer (CMS/HCC) (HCC) No evidence of disease. Recommend return in 6 months. She is 1 year out so Q 6 months for another year then Q yearly. Patient understands and agrees. documented in this encounter Plan of Treatment Scheduled Orders Name Type Priority Associated Diagnoses Orde r Schedule Screening Mammogram 2D Bilateral Imaging Schedule Routine, Read Routine (OP Routine) Encounter for screening mammogram for malignant neoplasm of breast 1 Occurrences starting 11/08/2023 until 01/07/2025 documented as of this encounter Results * Pap and High Risk HPV and Genotyping (Cytology Component) (11/08/2023 11:28 AM CDT) Thin prep (Pap test) 11/08/2023 11:28 AM CDT 11/08/2023 4:23 PM CDT Narrative PATHOLOGY [facility] - 11/11/2023 2:07 PM CDT EPIC results best viewed via link to PDF [facility] [place] [address] Note to Patients: This report may contain [...] the details. CYTOPATHOLOGY REPORT FINAL Patient Name: ??DERRICK QUESADA Gender: ??F : ??1965 (Age: 58) Address: ??[address] [place], [place] ??[address] Hospital #: ??[id number] Service: ??UNKNOWN Location: ?? Patient Type: ??[facility] SPECIMEN Taken: ??11/08/2023 Received: ??11/08/2023 Accessioned: ??11/09/2023 [...] performed using the arturo HPV assay ([employer] This test has been modified from the shampooer's instructions. Its performance characteristics were determined by [facility] in a manner consistent with CLIA requirements. This test has not been cleared or approved by the U.S. Food and Drug Administration. Test Performed by: [address] [address] Longshore Equipment Operator: Pee Maria M.D. Ph.D.; CLIA# [id number] [facility]/11/11/2023 14:07 MISSY Cheung (ASCP) [...] clinical information and biopsy results as indicated. [facility] Clinical Laboratory Improvement Amendments (CLIA) mandate that cytologic and histologic results be correlated for laboratory chief vendor quality & improvement standards. ??FOR ALL HIGH-GRADE CASES [...] determined by the Surgical Pathology Department at [facility] as part of an ongoing senior supplier quality engineer program and in compliance with federally mandated [...] determined by the Surgical Pathology Department of [facility]. ??It has not been cleared or approved by the U. S. Food and Drug Administration. Pee Villasenor MD LAB CYTOLOGY ORDERABLES Final Result PATHOLOGY [facility] * Vaginal High Risk HPV DNA Detection with Genotyping (Molecular component) (11/08/2023 10:56 AM CDT) HPV HR non 16/18 vaginal Negative Negative Comment: The following Other High Risk HPV types were not detected: 31, 33, 35, 39, 45, 51, 52, 56, 58, 59, 66, and 68 ADDITIONAL INFORMATION Testing was performed using the arturo HPV assay ([employer] This report is intended for use in clinical monitoring and management of patients. ??It is not intended for use in medical-legal applications. This test has been modified from the shampooer's instructions. ??Its performance characteristics were determined by [facility] in a manner consistent with CLIA requirements. ??This test has not been cleared or approved by the U.S. Food and Drug Administration. Test Performed by: [facility] [address] [place] [address] Longshore Equipment Operator: Pee Maria M.D. Ph.D.; CLIA# [id number] Testing performed by: [facility], [address] [place]., [address] HPV HR 16 vaginal Negative Negative ALICIA SALAS Comment:Testing performed by : [facility], [address] [place]., [address] HPV HR 18 vaginal Negative Negative ALICIA SALAS Comment:Testing performed by : [facility], [address] [facility], [place]., [address] Vaginal 11/08/2023 10:5 6 AM CDT 11/09/2023 9:27 AM CDT Helen SALAS - 11/10/2023 7:48 PM CDT Clinical history and diagnosis->hyst d/t abnormal cells Testing type->Screening Last menstrual period (date if known)->hyst Pee Villasenor MD LAB BODY FLUIDS AND STO OLS ORDERABLES Final Result ALICIA [address] [facility] Department [place] [address] documented in this encounter Visit Diagnoses Diagnosis Well woman exam- Primary Routine general medical examination at a health care facility Screening for vaginal cancer Special screening for malignant neoplasms, vagina Encounter for screening mammogram for malignant neoplasm of breast Endometrial cancer (CMS/HCC) (HCC) Malignant neoplasm of corpus uteri, except isthmus Screening for vaginal cancer Special screening for malignant neoplasms, vagina documented in this encounter Care Teams Senior Editor Relationship Specialty Start Date End Date Baldomero Dominguez MD PCP - General 01/07/17 Lane Gonzalez MD [address] [place] [address] Consulting Physician Interventional Cardiology 12/18/21 Pee Villasenor MD [address] [place] [address] Consulting Physician Obstetrics and Gynecology 12/26/21 documented as of this encounter
--- OUTSIDE RECORDS SUMMARY | 2024-07-11 07:10 | XMS_ITS | Encounter Summary ---
Author Organization [facility] Healthcare Address [address] [place] [address] Care Team Providers Care Smalltalk Developer Name Role Phone Baldomero Dominguez MD Primary Care Provider [phone] Lane Gonzalez MD Unavailable [phone] Pee Villasenor MD Unavailable [phone] Encounter Details Date Type Department Care Team (Late st Contact Info) Description 03/17/2024 Telephone [facility] Medical Group Pulmonology [address] [place] [address] [place] [address] Cherise Rodas Social History Tobacco Use Types Packs/Day Years [...] on file 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 Saved in chart. * Telephone Encounter - Cherise Rodas - 03/17/2024 9:58 AM CDT The dental school called and stated they will need a letter of medical necessity for the oral appliance and a referral with the diagnosis code for the oral appliance. Fax number [phone] documented in this encounter Plan of Treatment Not on file documented as of this encounter Visit Diagnoses Not on filedocumented in this encounter Care Teams Smalltalk Developer Relationship Specialty Start Date End Date Baldomero Dominguez MD PCP - General 01/07/17 Lane Gonzalez MD [facility] [facility] [address] [place] [address] Consulting Physician Interventional Cardiology 12/18/21 Pee Villasenor MD [address] [place] [address] Consulting Physician Obstetrics and Gynecology 12/26/21 documented as of this encounter
--- OUTSIDE RECORDS SUMMARY | 2024-07-11 07:10 | XMS_ITS | Encounter Summary ---
Author Organization [facility] Healthcare Address [address] [place] [address] Care Team Providers Care Oracle Wms Consultant Name Role Phone Baldomero Dominguez MD Primary Care Provider [phone] Lane Gonzalez MD Unavailable [phone] Pee Villasenor MD Unavailable [phone] Encounter Details Date Type Department Care Team (Late st Contact Info) Description 05/09/[address] 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 documented in this encounter Plan of Treatment Not on file documented as of this encounter Visit Diagnoses Not on filedocumented in this encounter Care Teams Oracle Wms Consultant Relationship Specialty Start Date End Date Baldomero Dominguez MD PCP - General 01/07/17 Lane Gonzalez MD [address] [facility] [address] [place] [address] Consulting Physician Interventional Cardiology 12/18/21 Pee Villasenor MD [address] [facility] [address] [place] [address] Consulting Physician Obstetrics and Gynecology 12/26/21 documented as of this encounter
--- OUTSIDE RECORDS SUMMARY | 2024-07-11 07:10 | XMS_ITS | Encounter Summary ---
Author Organization [facility] Healthcare Address [address] [place] [address] Care Team Providers Care Chocolate Coater Name Role Phone Baldomero Dominguez MD Primary Care Provider [phone] Lane Gonzalez MD Unavailable Pee Villasenor MD Unavailable [phone] Encounter Details Date Type Department Care Team (Late st Contact Info) Description 02/24/2024 Telephone [facility] Medical Group Pulmonology [address] [facility] [address] [place] [address] Sobia Bell, WOOD MILLING MACHINE TENDER [address] [facility] [address] [place] [address] Social History Tobacco Use Types Packs/Day Years [...] on file 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 She states she did attempt to wear the cpap last night. documented in this encounter Plan of Treatment Not on file documented as of this encounter Visit Diagnoses Not on filedocumented in this encounter Care Teams Chocolate Coater Relationship Specialty Start Date End Date Baldomero Dominguez MD PCP - General 01/07/17 Lane Gonzalez MD [address] [facility] [address] [place] [address] Consulting Physician Interventional Cardiology 12/18/21 Pee Villasenor MD [address] [facility] [address] [place] [address] Consulting Physician Obstetrics and Gynecology 12/26/21 documented as of this encounter
--- OUTSIDE RECORDS SUMMARY | 2024-07-11 07:10 | XMS_ITS | Encounter Summary ---
Author Organization [facility] Healthcare Address [address] [place] [address] Care Team Providers Care Self Contained Behavior Unit Teacher Name Role Phone Baldomero Dominguez MD Primary Care Provider [phone] Lane Gonzalez MD Unavailable Pee Villasenor MD Unavailable [phone] Encounter Details Date Type Department Care Team (Late st Contact Info) Description 02/24/[address] 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 Pt informed * Telephone Encounter - Rae Mary MA - 02/24/2024 11:02 AM CDT Pt called requesting order, sleep study, and referral be sent to [facility]. Pt stated theinformation is required to make the oral appliance. The fax number provided is [phone]. Pt is requesting a call once complete. The contact number is [phone]. documented in this encounter Plan of Treatment Not on file documented as of this encounter Visit Diagnoses Not on filedocumented in this encounter Care Teams Self Contained Behavior Unit Teacher Relationship Specialty Start Date End Date Baldomero Dominguez MD PCP - General 01/07/17 Lane Gonzalez MD [address] [facility] [place] [address] Consulting Physician Interventional Cardiology 12/18/21 Pee Villasenor MD [address] [facility] [address] [place] [address] Consulting Physician Obstetrics and Gynecology 12/26/21 documented as of this encounter
--- OUTSIDE RECORDS SUMMARY | 2024-07-11 07:10 | XMS_ITS | Encounter Summary ---
Author Organization [facility] Healthcare Address [address] [place] [address] Care Team Providers Care Beef Cattle Farm Manager Name Role Phone Baldomero Dominguez MD Primary Care Provider [phone] Lane Gonzalez MD Unavailable [phone] Pee Villasenor MD Unavailable [phone] Encounter Details Date Type Department Care Team (Late st Contact Info) Description 03/09/[address] 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 * Telephone Encounter - Sobia Bell NP - 03/09/2024 11:07 AM CDT I have spoken with the patient via the telephone. The patient's current CPAP setting is at a an auto titrating range of 6-14 cm water pressure. She is maintaining a good airway with a CPAP pressure at that setting. Her airways only narrowing or closing 1.9 times per hour. The patient verbalized on the telephone that she is happy with her current CPAP pressure of 6-14 cm water pressure. I will readjust as needed. Ample opportunity provided to ask questions. The compliance reported showing 3 hours a night with a medium pressure of 6.4 and a high pressure of 9.6 cm water pressure. documented in this encounter Plan of Treatment Not on file documented as of this encounter Visit Diagnoses Not on filedocumented in this encounter Care Teams Beef Cattle Farm Manager Relationship Specialty Start Date End Date Baldomero Dominguez MD PCP - General 01/07/17 Lane Gonzalez MD [address] [facility] [address] [place] [address] Consulting Physician Interventional Cardiology 12/18/21 Pee Villasenor MD [address] [facility] [address] [place] [address] Consulting Physician Obstetrics and Gynecology 12/26/21 documented as of this encounter
--- OUTSIDE RECORDS SUMMARY | 2024-07-11 07:10 | XMS_ITS | Encounter Summary ---
Author Organization [facility] Address [address] [place] [address] Phone Care Team Providers Care Rewind Operator Name Role Phone Baldomero Dominguez MD Primary Care Provider [phone] Lane Gonzalez MD Unavailable [phone] Pee Villasenor MD Unavailable [phone] Encounter Details Date Type Department Care Team (Late st Contact Info) Description 12/17/2022 Telephone [facility] Obstetrics and Gynecology [address] [facility] Medicine 13th [place] [address] [place] [address] Checo Guillen MD [address] [place] [address] Social History Tobacco Use Types Packs/Day Years Used Date Smoking Tobacco: Never Passive Smoke Exposure: Current Smokeless Tobacco: Never Alcohol Use Standard Drinks/Week Comments Yes 0 (1 standard drink = 0.6 oz pur e alcohol) occasional wine AUDIT-C Answer Date Recorded Q1: How often do you have a drink containing alc ohol? Monthly or less 12/07/2022 Q2: How many drinks containi ng alcohol do you have on a typical day when you are drinking? 1 or 2 12/07/2022 Q3: How often do you have si x or more drinks on one occasion? 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 I recommend surveillance. She was pleased and notes she's recovering well since surgery. She's aware of her follow up appointment. Checo Guillen MD Gynecologic Oncology Fellow (PGY-6) Pager # documented in this encounter Plan of Treatment Not on file documented as of this encounter Visit Diagnoses Not on filedocumented in this encounter Care Teams Rewind Operator Relationship Specialty Start Date End Date Baldomero Dominguez MD PCP - General 01/07/17 Lane Gonzalez MD [address] [facility] [address] [place] [id number] Consulting Physician Interventional Cardiology 12/18/21 Pee Villasenor MD [address] [facility] [address] [place] [address] Consulting Physician Obstetrics and Gynecology 12/26/21 documented as of this encounter
--- OUTSIDE RECORDS SUMMARY | 2024-07-11 07:10 | XMS_ITS | Encounter Summary ---
Author Organization [facility] Healthcare Address [address] [place] [address] Care Team Providers Care Group Work Program Director Name Role Phone Baldomero Dominguez MD Primary Care Provider [phone] Lane Gonzalez MD Unavailable [phone] Pee Villasenor MD Unavailable [phone] Reason for Visit * Reason Comments Follow-up 6 mos follow up: tamiko veillance phx of Endo cancer Encounter Details Date Type Department Care Team (Late st Contact Info) Description 05/10/2024 10:15 AM CDT Office Visit [facility] Medical Group Obstetrical Gynecology [address] [facility] [address] [place] [address] Pee Villasenor MD [address] [place] [address] [address] [place] [address] History of endometrial cancer (Primary Dx); Intertrigo Social History Tobacco Use Types Packs/Day Years [...] on file 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 Gender Identity Not on file Sexual Orientation Not on file documented as of this encounter Last Filed Vital Signs Vital Sign Reading Time Taken Comments Blood Pressure 124/80 05/10/2024 10:28 AM CDT Pulse - - Temperature - - Respiratory Rate - - Oxygen Saturation - - Inhaled Oxygen Concentration - - Weight 108.9 kg (240 lb) 05/10/2024 10:28 AM CDT Height 165.1 cm (5' 5 ) 05/10/2024 10:28 AM CDT Body Mass Index 39.94 05/10/2024 10:28 AM CDT documented in this encounter Ordered Prescriptions Prescription Sig Dispense Quantity Refills Last Filled Start Date End Date nystatin-triamcino lone creamIndications:c utaneous candidiasis Apply to affected area twice a day for 7-14 days, then as needed for rash. 15 g 05/10/2024 documented in this encounter Progress Notes * Pee Villasenor MD - 05/10/2024 10:15 AM CDT Images from the original note were not included. Subjective/Objective Patient ID: Rowena Quesada is a 58 y.o. female. Chief Complaint Follow-up (6 mos follow up: surveillance phx of Endo cancer) HPI: 58-year-old 2, para 2 who presents for follow-up. Surgery November of 2022. Status post robotic assisted laparoscopic hysterectomy, bilateral salpingo- oophorectomy with lymph node sampling in November of 2022. Final pathology - Focal endometrioid adenocarcinoma, FIGO grade 1, in association with complex atypical hyperplasia(entire endometrium embedded for microscopic examination) - Limited to the endometrium (no myometrial invasion identified) Doing well. No complaints. Denies abdominal pain, bleeding or discharge. States occasional spotting rectally. No pain. History of Crohn's disease. Review of Systems Constitutional: Negative for appetite change, chills, diaphoresis, fatigue and fever. Eyes: Negative for visual disturbance. Respiratory: Negative for cough and shortness of breath. Cardiovascular: Negative for chest pain. Gastrointestinal: Negative for abdominal distention, abdominal pain, blood in stool, constipation, diarrhea, nausea and vomiting. Endocrine: Negative for polyuria. Genitourinary: Negative for dyspareunia, dysuria, frequency, hematuria, pelvic pain, urgency and vaginal discharge. Musculoskeletal: Negative for back pain. Skin: Negative for rash. Neurological: Negative for dizziness, syncope, light-headedness and headaches. Psychiatric/Behavioral: Negative for self-injury, sleep disturbance and suicidal ideas. The patientis not nervous/anxious. Breast: Negative for tenderness, breast discharge and lump(s). Physical Exam Vitals and nursing note reviewed. Exam conducted with a security operations specialist present. Constitutional: Appearance: Normal appearance. HENT: Head: Normocephalic. Abdominal: Palpations: Abdomen is soft. Tenderness: There is no abdominal tenderness. Genitourinary: Comments: No lesions are noted, moderate vaginal atrophy, vault is clear without discharge or blood, no evidence of disease, cuff intact nontender, no mass effect noted nontender. Skin: General: Skin is warm. Findings: Rash present. Comments: Red nonraised rash, lower abdomen, pannus Neurological: General: No focal deficit present. Mental Status: She is alert and oriented to person, place, and time. Psychiatric: Mood and Affect: Mood normal. Judgment: Judgment normal. Assessment/Plan Diagnoses and all orders for this visit: History of endometrial cancer (Z85.42) (Primary) No evidence of disease, doing well. She will return in 6 months for well- woman/pelvic exam then Q yearly. She will contact her relocation coordinator for evaluation of her rectal spotting. History of Crohn's disease. Intertrigo (L30.4) - nystatin-triamcinolone cream; Apply to affected area twice a day for 7-14 days, then as needed for rash. *This note is dictated using VitaFlavor voice recognition software, variances in spelling and vocabulary are possible and unintentional* documented in this encounter Plan of Treatment Not on file documented as of this encounter Visit Diagnoses Diagnosis History of endometrial cancer- Primary Intertrigo Other specified erythematous condition documented in this encounter Care Teams Group Work Program Director Relationship Specialty Start Date End Date Baldomero Dominguez MD PCP - General 01/07/17 Lane Gonzalez MD [address] [facility] [address] [place] [address] Consulting Physician Interventional Cardiology 12/18/21 Pee Villasenor MD [address] [facility] [address] [place] [place] [address] Consulting Physician Obstetrics and Gynecology 12/26/21 documented as of this encounter
--- OUTSIDE RECORDS SUMMARY | 2024-07-11 07:10 | XMS_ITS | Encounter Summary ---
Author Organization [facility] Healthcare Address [address] [place] [address] Care Team Providers Care Copy Camera Operator Name Role Phone Baldomero Dominguez MD Primary Care Provider [phone] Lane Gonzalez MD Unavailable [phone] Pee Villasenor MD Unavailable [phone] Reason for Visit * Reason Comments Follow-up 3 month Encounter Details Date Type Department Care Team (Late st Contact Info) Description 02/23/2024 3:15 PM CDT Office Visit [facility] Medical Group Pulmonology [address] [facility] [address] [place] [address] Sobia Bell, BRUSH HAND [address] [place] [address] [address] [place] [address] TRACE (obstructive sleep apnea) (Primary Dx) Social History Tobacco Use Types [...] on file 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 Gender Identity Not on file Sexual Orientation Not on file documented as of this encounter Last Filed Vital Signs Vital Sign Reading Time Taken Comments Blood Pressure 129/80 02/23/2024 3:33 PM CDT Pulse 66 02/23/2024 3:33 PM CDT Temperature 36.9 ??C (98.4 ??F) 02/23/2024 3:33 PM CD T Respiratory Rate 18 02/23/2024 3:33 PM CDT Oxygen Saturation 98% 02/23/2024 3:33 PM CDT Inhaled Oxygen Concentration - - Weight 108.5 kg (239 lb 3.2 oz) 02/23/2024 3:33 PM CDT Height 165.1 cm (5' 5 ) 02/23/2024 3:33 PM CDT Body Mass Index 39.8 02/23/2024 3:33 PM CDT documented in this encounter Progress Notes * Sobia Bell NP - 02/23/2024 3:15 PM CDT Images from the original note were not included. Progress Note Patient: Rowena Quesada ( - 1965) is a 58 y.o. female. Visit Date: 02/23/2024 Chief Complaint Patient presents with Follow-up 3 month History of Present Illness: This is a follow-up after nocturnal polysomnogram completed February 02, 2024. The overall apnea-hypopnea index was 29.1 events per hour sleep. Lowest oxygenation saturation 88% the patient spent 0.4 minutes with oxygenation saturation below 90%. The patient continues CPAP therapy at 5-20 cm water pressure. The patient recalls dreaming. The patient denies snoring under the mask. Patient has daytime sleepiness but denies falling asleep at inappropriate situations or while driving. The patient deniesdry mouth and states energy level is good. We discussed products [id number] for dry mouth. The patient states she is intolerant of CPAP therapy. She states she has noticed an increase of memory deficit. She states she is unable to wear the CPAP at night due to not being acclimated to the CPAPmask and chronic pain. Past Medical History: Past Medical History: Diagnosis Date Abnormal uterine and vaginal bleeding, unspecified patient states unsure of last time noted of date Allergic rhinitis Anemia takes iron daily Arthritis Crohn's disease ([facility]) ([facility]) Heart disease Heart murmur Hypertension tx in past lost over 100lbs no medications at this time Joint pain Left knee injury states wears brace occurred at work seeing Dr for injections Morbid obesity ([facility]) Rheumatoid arthritis ([facility]) Sleep apnea does use cpap Supraventricular tachycardia by ECG ([facility]) patient states stopped own on 2 yrs ago medication Surgical History: Past Surgical History: Procedure Laterality Date SECTION CHOLECYSTECTOMY DILATION AND CURETTAGE OF UTERUS ESOPHAGOGASTRODUODENOSCOPY 03/01/2020 ESOPHAGOGASTRODUODENOSCOPY BIOPSY FUNCTIONAL ENDOSCOPIC SINUS SURGERY GASTRIC BYPASS 07/16/2020 LAPAROSCOPIC GASTRECTOMY - SLEEVE HYSTERECTOMY KNEE ARTHROSCOPY W/ MENISCAL REPAIR Left 03/01/2020 OOPHORECTOMY 11/2022 Current Medications: Current Outpatient Medications Medication Sig Dispense Refill cyclobenzaprine (FLEXERIL) 5 mg tablet Take 1 tablet (5 mg total) by mouth 3 (three) times a day asneeded for muscle spasms multivit olpccmgq-qhch-GC-calcium (THERA-M) 9 mg iron-400 mcg tablet Take 1 tablet by mouth 2 (two)times a day (Patient taking differently: Take 1 tablet by mouth every morning) 60 tablet 11 No current facility-administered medications for this visit. Allergies: Allergies Allergen Reactions Cefaclor Hives Family History: Family History Problem Relation Age of Onset Depression Mother Diabetes Mother Family history of diabetes mellitus - (Added by TW Conv) Hypertension Mother Family history of hypertension - (Added by TW Conv) Obesity Mother Overweight - (Added by TW Conv) Cancer Mother Family history of malignant neoplasm - (Added by TW Conv) Anesthesia problems Sister PONV Stroke Maternal Grandmother Breast cancer Neg Hx Ovarian cancer Neg Hx Social History: Social History Tobacco Use Smoking status: Never Passive exposure: Current Smokeless tobacco: Never Substance and Sexual Activity Drug use: Never Sexual activity: Defer Alcohol Use: Not At Risk (11/02/2023) AUDIT-C Frequency of Alcohol Consumption: Monthly or less Average Number of Drinks: 1 or 2 Frequency of Binge Drinking: Never Review of Systems: Review of Systems Constitutional: Positive for unexpected weight change. Negative for appetite change and fever. Gain HENT: Positive for rhinorrhea. Negative for sinus pressure, sinus pain, sore throat and tinnitus. Respiratory: Negative for cough, shortness of breath and wheezing. Cardiovascular: Positive for palpitations and leg swelling. Negative for chest pain. Gastrointestinal: Positive for diarrhea. Negative for abdominal pain, nausea and vomiting. Crohn's Genitourinary: Positive for hematuria. Microscopic Musculoskeletal: Positive for arthralgias, back pain and myalgias. Skin: Negative for color change. Allergic/Immunologic: Negative for environmental allergies and food allergies. Neurological: Positive for light-headedness. Negative for dizziness and headaches. Physical Exam: Vitals: 02/23/24 1533 BP: 129/80 BP Location: Left arm Patient Position: Sitting Pulse: 66 Resp: 18 Temp: 36.9 ??C (98.4 ??F) TempSrc: Tympanic SpO2: 98% Weight: 108.5 kg (239 lb 3.2 oz) Height: 165.1 cm (5' 5 ) Physical Exam HENT: Head: Normocephalic and atraumatic. Eyes: Pupils: Pupils are equal, round, and reactive to light. Cardiovascular: Rate and Rhythm: Normal rate and regular rhythm. Pulmonary: Effort: Pulmonary effort is normal. Breath sounds: Normal breath sounds. Abdominal: General: Bowel sounds are normal. Palpations: Abdomen is soft. Musculoskeletal: General: Normal range of motion. Cervical back: Normal range of motion and neck supple. Skin: General: Skin is warm and dry. Neurological: Mental Status: She is alert and oriented to person, place, and time. Data Reviewed Images: No results found. Assessment and Plan: Diagnoses and all orders for this visit: TRACE (obstructive sleep apnea) (Primary) Assessment & Plan: The patient is intolerant of CPAP therapy. [...] that she should work on weight management. Orders: - Mandibular Repositioning Device Rendering Provider & Department: Sobia Bell NP Cosigned by Laith Smart MD at 02/23/2024 8:33 PM CDT documented in this encounter Miscellaneous Notes * Assessment & Plan Note - Sobia Bell NP - 02/23/2024 4:04 PM CDT Associated Problem(s): TRACE (obstructive sleep apnea) The patient is intolerant of CPAP therapy. [...] that she should work on weight management. documented in this encounter Plan of Treatment Not on file documented as of this encounter Visit Diagnoses Diagnosis TRACE (obstructive sleep apnea)- Primary Obstructive sleep apnea (adult) (pediatric) documented in this encounter Orders General Supply Count Last Ordered Date First Or dered Date MANDIBULAR REPOSITIONING DEVICE 1 4 documented in this encounter Care Teams Copy Camera Operator Relationship Specialty Start Date End Date Baldomero Dominguez MD PCP - General 01/07/17 Lane Gonzalez MD [address] [place] [address] Consulting Physician Interventional Cardiology 12/18/21 Pee Villasenor MD [address] [facility] [address] [place] [address] [place] [address] Consulting Physician Obstetrics and Gynecology 12/26/21 documented as of this encounter
--- OUTSIDE RECORDS SUMMARY | 2024-07-11 07:10 | XMS_ITS | Encounter Summary ---
Author Organization [facility] Healthcare Address [address] [place] [address] Care Team Providers Care Gold Leaf Printer Name Role Phone Baldomero Dominguez MD Primary Care Provider [phone] Lane Gonzalze MD Unavailable [phone] Pee Villasenor MD Unavailable [phone] Reason for Visit * Reason Onset Date Comments Sleep Study Results/CPAP order 02/03/2024 Encounter Details Date Type Department Care Team (Late st Contact Info) Description 02/03/2024 Telephone [facility] [address] [place] [address] Olya Doe, [facility] Sleep Study Results/CPAP order Social History Tobacco Use Types Packs/Day Years [...] on file 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 AHI- 29.1, Lowest O2 sat- 88%0.4 min overall with O2 sat less than 90%. Dr. Smart wrote order for Auto CPAP 5- [id number]. Pt did not want the order sent to any DME. Scanned into media but not sent.She has tried CPAP in the past a couple of times and notbeen able to use it. Pt has an appointment with Dr. Smart on 02/11/24 documented in this encounter Plan of Treatment Not on file documented as of this encounter Visit Diagnoses Not on filedocumented in this encounter Care Teams Gold Leaf Printer Relationship Specialty Start Date End Date Baldomero Dominguez MD PCP - General 01/07/17 Lane Gonzalez MD [address] [facility] [address] [place] [place] [address] Consulting Physician Interventional Cardiology 12/18/21 Pee Villasenor MD [address] [facility] [address] [place] [address] [place] [address] Consulting Physician Obstetrics and Gynecology 12/26/21 documented as of this encounter
--- OUTSIDE RECORDS SUMMARY | 2024-07-11 07:10 | XMS_ITS | Encounter Summary ---
Author Organization [facility] Healthcare Address [address] [place] [address] Care Team Providers Care Long Chain Beamer Name Role Phone Baldomero Dominguez MD Primary Care Provider [phone] Lane Gonzalez MD Unavailable [phone] Pee Villasenor MD Unavailable [phone] Encounter Details Date Type Department Care Team (Late st Contact Info) Description 07/23/2023 Telephone [facility] Medical Group Obstetrical Gynecology [facility] [address] Pee Villasenor MD [address] [facility] [address] [address] Social History Tobacco Use Types [...] on file 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 Pt can be scheduled 08/06 at 10:00 PHALOGRAPHER * Telephone Encounter - Jolly Thacker LPN - 07/23/2023 3:07 PM CST Zach, Can you add her if able? PHALOGRAPHER * Telephone Encounter - Pee Villasenor MD - 07/23/2023 3:04 PM ENCEPHALOGRAPHER As noted, she was supposed to follow-up in May of this year. Appointment was canceled. We can try to add her on in the next couple weeks for follow-up visit only. PHALOGRAPHER * Telephone Encounter - Jolly Thacker LPN - 07/23/2023 2:27 PM CST Pt had hysterectomy on 12/07/2022 and pathology was consistent with stage IA disease without high-intermediate risk features. It was recommended for pt to follow up with SHIPWRIGHT SUPERVISOR in 6 months. Pt cancelled 05/2023 appt. Please advise on when to schedule pt. PHALOGRAPHER * Telephone Encounter - Amaris Zuniga - 07/23/2023 2:16 PM CST Last WWE/OV: 02/08/23 Next WWE/OV: 09/14/23 Symptom(s): Pt called stating that she had a pelvic US 10/02/21 done which showed she had a cancerous tumor. Pt would like to discuss how often she should come in for check ups. Preferred Communication: Phone PHALOGRAPHER documented in this encounter Plan of Treatment Not on file documented as of this encounter Visit Diagnoses Not on filedocumented in this encounter Care Teams Long Chain Beamer Relationship Specialty Start Date End Date Baldomero Dominguez MD PCP - General 01/07/17 Lane Gonzalez MD [facility] [facility] [address] [place] [address] Consulting Physician Interventional Cardiology 12/18/21 Pee Villasenor MD [address] [facility] [address] [place] [address] [place] [address] Consulting Physician Obstetrics and Gynecology 12/26/21 documented as of this encounter
--- OUTSIDE RECORDS SUMMARY | 2024-07-11 07:10 | XMS_ITS | Encounter Summary ---
Author Organization [facility] Healthcare Address [address] [place] [address] Care Team Providers Care Wireworker Supervisor Name Role Phone Baldomero Dominguez MD Primary Care Provider Lane Gonzalez MD Unavailable [phone] Pee Villasenro MD Unavailable [phone] Encounter Details Date Type Department Care Team (Late st Contact Info) Description 01/05/2024 Orders Only [facility] Health Information Management [address] [place] [phone] Pee Villasenor MD [address] [facility] [address] [address] Social History Tobacco Use Types [...] on file 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 Gender Identity Not on file Sexual Orientation Not on file documented as of this encounter Plan of Treatment Not on file documented as of this encounter Procedures Procedure Name Priority Date/Time Associated Diagnosis Comments SCAN - RADIOLOGY/IMAGING 01/05/2024 documented in this encounter Results * SCAN - RADIOLOGY/IMAGING (01/05/2024) Anatomical Region Laterality Modality Other Pee Villasenor MD Final R esult documented in this encounter Visit Diagnoses Not on filedocumented in this encounter Care Teams Wireworker Supervisor Relationship Specialty Start Date End Date Baldomero Dominguez MD PCP - General 01/07/17 Lane Gonzalez MD [address] [facility] [address] [place] [address] [place] [address] Consulting Physician Interventional Cardiology 12/18/21 Pee Villasenor MD [address] [facility] [address] [place] [address] [place] [address] Consulting Physician Obstetrics and Gynecology 12/26/21 documented as of this encounter
--- OUTSIDE RECORDS SUMMARY | 2024-07-11 07:10 | XMS_ITS | Encounter Summary ---
Author Organization [facility] Address [address] [place] [address] Care Team Providers Care Barrelhead Inspector Name Role Phone Baldomero Dominguez MD Primary Care Provider [phone] Lane Gonzalez MD Unavailable Pee Villasenor MD Unavailable [phone] Reason for Referral * Sleep Medicine (Routine) - Closed Specialty Diagnoses / Procedures Referred By Contac t Referred To Contact Diagnoses TRACE (obstructive sleep apnea) Snoring Hypersomnia Procedures Portable/Home Sleep Study Sobia Bell NP [address] [facility] [address] [address] Phone: tel: fax: [facility] [address] [place] [address] Phone: tel: fax: Referral ID Status Reason Start Date Expiration Date Visits Re quested Visits Authorized [id number] Closed 11/12/2023 12/11/2024 1 1 Reason for Visit * Reason Comments Follow-up * Consultation (Routine) - Closed Specialty Diagnoses / Procedures Referred By Vianca t Referred To Contact Sleep Medicine Diagnoses TRACE (obstructive sleep apnea) Baldomero Dominguez MD [address] [place] [address] Phone: tel: fax: [facility] Medical Group Pulmonary [place] [address] [facility] [address] [place] [address] Phone: tel: fax: Referral ID Status Reason Start Date Expiration Date V isits Requested Visits Authorized [id number] Closed Specialty Services Required 09/27/2023 10/26/2024 1 1 Encounter Details Date Type Department Care Team (Late st Contact Info) Description 11/12/2023 11:00 AM CDT Office Visit [facility] Medical Group Pulmonology [address] [facility] [address] [place] [id number] [place] [address] [place] [address] [address] [place] [address] Snoring (Primary Dx); TRACE (obstructive sleep apnea); Hypersomnia Social History Tobacco Use Types Packs/Day Years [...] on file 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 Gender Identity Not on file Sexual Orientation Not on file documented as of this encounter Last Filed Vital Signs Vital Sign Reading Time Taken Comments Blood Pressure 130/80 11/12/2023 11:18 AM CDT Pulse 72 11/12/2023 11:18 AM CDT Temperature - - Respiratory Rate 18 11/12/2023 11:18 AM CDT Oxygen Saturation 95% 11/12/2023 11:18 AM CDT Inhaled Oxygen Concentration - - Weight 106.1 kg (234 lb) 11/12/2023 11:18 AM CDT Height 165.1 cm (5' 5 ) 11/12/2023 11:18 AM CDT Body Mass Index 38.94 11/12/2023 11:18 AM CDT documented in this encounter Progress Notes * Sobia Bell, WASHERETTE MACHINE OPERATOR - 11/12/2023 11:00 AM CDT Images from the original note were not included. Consultation Note Patient: Rowena Quesada ( - 1965) is a 58 y.o. female. Visit Date: 11/12/2023 I am seeing this patient in consultation, requested by Dr. Baldomero Dominguez MD) for history of obstructive sleep apnea. Chief Complaint Patient presents with Follow-up History of Present Illness: This is initial consultation for history of obstructive sleep apnea. The patient was diagnosed withobstructive sleep apnea in 2019 and was started on CPAP therapy. The patient states she was intolerant to CPAP and has not been currently using the machine. The patient states that she has notice a worsening of her symptoms. She has a lack of memory, daytime hypersomnia, waking up a lot throughout the night, not feeling rested, and does not feel that she is sleeping at all. The patient has been using a chinstrap like material to hold her mouth closed she states she has been doing well with that. The patient is dreaming and occasionally having nightmares. She states that she is not aware of any snoring with the chinstrap in place. The patient has daytime hypersomnia, however not falling asleep at inappropriate situations or while driving. The patient has dry mouth and she states her energylevel is low. Patient has chronic pain due to knee pain and fibromyalgia. The patient states occasionally she will wake up for nocturia. She states she sleeps from 10:00 p.m. to 8:00 a.m.. She deniesnapping. The patient has not been told she has apneic or gasping episodes. Patient denies unpleasant sensations in her limbs. The patient states she does wake up with a headache. She has nausea. King sleepiness scale is 10 Past Medical History: Past Medical History: Diagnosis Date Abnormal uterine and vaginal bleeding, unspecified patient states unsure of last time noted of date Allergic rhinitis Anemia takes iron daily Arthritis Crohn's disease ([facility]/HCC) ([facility]) Heart disease Heart murmur Hypertension tx in past lost over 100lbs no medications at this time Joint pain Left knee injury states wears brace occurred at work seeing Dr for injections Morbid obesity ([facility]) Rheumatoid arthritis ([facility]) Sleep apnea does use cpap Supraventricular tachycardia by ECG ([facility]) patient states stopped own on 2 yrs [...] a day asneeded for muscle spasms multivit kcfgzsum-bkot-UO-calcium (THERA-M) 9 mg iron-400 mcg tablet Take [...] Review of Systems: Review of Systems Constitutional: Negative for appetite change, fever and unexpected weight change. HENT: Positive for congestion. Negative for rhinorrhea, sinus pressure, sinus pain, sore throat andtinnitus. Respiratory: Negative for cough, shortness of breath and wheezing. Cardiovascular: Negative for chest pain, palpitations and leg swelling. SVT, murmur Gastrointestinal: Negative for abdominal pain, diarrhea, nausea and vomiting. Crohn's Genitourinary: Negative for hematuria. Musculoskeletal: Positive for arthralgias, back pain and myalgias. Skin: Negative for color change. Allergic/Immunologic: Positive for environmental allergies. Negative for food allergies. Neurological: Negative for dizziness, light-headedness and headaches. Physical Exam: Vitals: 11/12/23 1118 BP: 130/80 BP Location: Left arm Patient Position: Sitting Pulse: 72 Resp: 18 SpO2: 95% Weight: 106.1 kg (234 lb) Height: 165.1 cm (5' 5 ) Physical [...] Diagnoses and all orders for this visit: Snoring (Primary) - Portable/Home Sleep Study; Future TRACE (obstructive sleep apnea) Assessment & Plan: Due to the history of TRACE and continued symptoms, I have recommended the patient complete a nocturnal polysomnogram with split night protocol. The patient and I also discussed an in-home nocturnal polysomnogram. The patient is reluctant to resume CPAP therapy. The patient has chose an in-home nocturnal polysomnogram if possible. I have discussed the need to treat the obstructive sleep apnea with C PAP, oral appliance, and the inspire. I did instruct the patient not to take any sedative like medications due to untreated TRACE. The patient verbalized understanding. The patient states she has not falling asleep while driving, instructed not to operate a vehicle if tired. Orders: - Ambulatory referral to Sleep Medicine - Portable/Home Sleep Study; Future Hypersomnia - Portable/Home Sleep Study; Future Rendering Provider & Department: Sobia Bell NP Cosigned by Laith Smart MD at 11/12/2023 12:46 PM CDT documented in this encounter Miscellaneous Notes * Assessment & Plan Note - Sobia Bell NP - 11/12/2023 12:11 PM CDT Associated Problem(s): TRACE (obstructive sleep apnea) Due to the history of TRACE and continued symptoms, I have recommended the patient complete a nocturnal polysomnogram with split night protocol. The patient and I also discussed an in-home nocturnal polysomnogram. The patient is reluctant to resume CPAP therapy. The patient has chose an in-home nocturnal polysomnogram if possible. I have discussed the need to treat the obstructive sleep apnea with C PAP, oral appliance, and the inspire. I did instruct the patient not to take any sedative like medications due to untreated TRACE. The patient verbalized understanding. The patient states she has not falling asleep while driving, instructed not to operate a vehicle if tired. documented in this encounter Plan of Treatment Not on file documented as of this encounter Results * Portable/Home Sleep Study (02/02/2024 1:10 PM CDT) us Sobia Bell WASHERETTE MACHINE OPERATOR SLEEP CENTER ORDERABLES Fin al Result [facility] SLEEP MEDICINE [address] documented in this encounter Visit Diagnoses Diagnosis Snoring- Primary Other dyspnea and respiratory abnormality TRACE (obstructive sleep apnea) Obstructive sleep apnea (adult) (pediatric) Hypersomnia Hypersomnia, unspecified documented in this encounter Orders Outpatient Referral Count Last Ordered Date Fir st Ordered Date AMB REFERRAL TO SLEEP MEDICINE 1 11/12/2023 documented in this encounter Care Teams Barrelhead Inspector Relationship Specialty Start Date End Date Baldomero Dominguez MD PCP - General 01/07/17 Lane Gonzalez MD [facility] [address] [place] [address] Consulting Physician Interventional Cardiology 12/18/21 Pee Villasenor MD [facility] [address] [place] [address] Consulting Physician Obstetrics and Gynecology 12/26/21 documented as of this encounter
--- OUTSIDE RECORDS SUMMARY | 2024-07-11 07:10 | XMS_ITS | Encounter Summary ---
Author Organization [facility] Address [address] [facility] [address] [place] [address] Care Team Providers Care Tire Duster Name Role Phone Baldomero Dominguez MD Primary Care Provider [phone] Lane Gonzalez MD Unavailable [phone] Pee Villasenor MD Unavailable [phone] Reason for Visit * Reason Comments Abdominal Pain Total hysterectomy d one by ACID RECOVERY OPERATOR ONC at [facility] 12/07/22. At 4 wk f/u she was told not to lift anything for 8 weeks depending on how she feels. Pt states she feels abdomen tenderness since the procedure. 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 Pt also states she thinks she has a hernia, not sure if that is causing pain/tenderness or still from the surgery. Encounter Details Date Type Department Care Team (Late st Contact Info) Description 02/08/2023 3:30 PM CDT Office Visit [facility] Obstetrical Gynecology [address] 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 Subjective/Objective Patient ID: Rowena Quesada is a 57 y.o. female. Chief Complaint Abdominal Pain (Total hysterectomy done by ACID RECOVERY OPERATOR ONC at [facility] 12/07/22. At 4 wk f/u she was told not to lift anything for 8 weeks depending on how she feels. Pt states she feels abdomen tenderness since the procedure. 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 Pt also states she thinks she has a hernia, not sure if that is causing pain/tenderness or still from the surgery. ) HPI: 57-year-old 2, para 2 who underwent a robotic assisted laparoscopic hysterectomy with bilateral salpingo-oophorectomy and sentinel lymph node biopsy for endometrial cancer at [place]. States that at her 4 week follow-up she was told not to lift anything for 8 weeks to pending how she feels. She is concerned about her job and the lifting that she has to do. States that she is developed sometenderness to the upper mid abdomen, episodic, 2/10 which resolved spontaneously. No change with movement. No GI or issues. Review of Systems Constitutional: Negative for activity [...] tenderness, breast redness, breast discharge and lump(s). Physical Exam Vitals and nursing note reviewed. Constitutional: Appearance: She is well-developed. Abdominal: General: A surgical scar is present. Bowel sounds are normal. There is no distension. Palpations: Abdomen is soft. There is no mass. Tenderness: There is no guarding or rebound. Skin: General: Skin is warm and dry. Neurological: General: No focal deficit present. Mental Status: She is alert and oriented to person, place, and time. Psychiatric: Mood and Affect: Mood normal. Assessment/Plan Diagnoses and all orders for this visit: Postoperative abdominal pain (R10.9, G89.18) (Primary) - CT abdomen pelvis with contrast; Future Discussed findings at length with patient. Nonacute abdomen, she has been eating voiding having bowel movements. No vaginal discharge or bleeding. Think that her discomfort is just continuation of her healing. No specific area of pain. Reconfirmed the advice of no lifting until she feels better. CTscan ordered. Will call patient with results. *This note is dictated using SERPs voice recognition software, variances in spelling and vocabulary are possible and unintentional* documented in this encounter Plan of Treatment Not on file documented as of this encounter Visit Diagnoses Diagnosis Postoperative abdominal pain- Primary documented in this encounter Discontinued Medications Medication Sig Discontinue Reason Start Date End Da te oxyCODONE (ROXICODONE) 5 mg immediate release tabletIndications:Pain Take 1 tablet (5 mg total) by mouth every 4 (four) hours as needed for pain Therapy completed 12/07/2022 02/08/2023 traMADoL (ULTRAM) 50 mg tablet Take 1 tablet (50 mg total) by mouth 2 (two) times a day as needed for pain Therapy completed 02/13/2020 02/08/2023 cyanocobalamin (Vitamin B-12) 500 mcg tabletIndications:Preven tion of Vitamin B12 Deficiency Take 1 tablet (500 mcg total) by mouth daily Therapy completed 07/18/2020 02/08/2023 documented as of this encounter Care Teams Tire Duster Relationship Specialty Start Date End Date Baldomero Dominguez MD PCP - General 01/07/17 Lane Gonzalez MD [address] [facility] [address] [place] [address] Consulting Physician Interventional Cardiology 12/18/21 Pee Villasenor MD [address] [facility] [address] [place] [address] Consulting Physician Obstetrics and Gynecology 12/26/21 documented as of this encounter
--- OUTSIDE RECORDS SUMMARY | 2024-07-11 07:10 | XMS_ITS | Encounter Summary ---
Author Organization [facility] Healthcare Address [address] [place] [address] Care Team Providers Care Business Agent Name Role Phone Baldomero Dominguez MD Primary Care Provider [phone] Lane Gonzalez MD Unavailable [phone] Pee Villasenor MD Unavailable [phone] Encounter Details Date Type Department Care Team (Late st Contact Info) Description 02/24/2024 Telephone [facility] Medical Group Pulmonary [address] [place] [address] Sobia Bell, SYSTEM ENGINEER [address] [facility] [address] [address] Social History Tobacco Use Types [...] on file 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 I called the patient to discuss her CPAP. documented in this encounter Plan of Treatment Not on file documented as of this encounter Visit Diagnoses Not on filedocumented in this encounter Care Teams Business Agent Relationship Specialty Start Date End Date Baldomero Dominguez MD PCP - General 01/07/17 Lane Gonzalez MD [address] [facility] [address] [place] [address] Consulting Physician Interventional Cardiology 12/18/21 Pee Villasenor MD [address] [facility] [address] [place] [address] Consulting Physician Obstetrics and Gynecology 12/26/21 documented as of this encounter
--- OUTSIDE RECORDS SUMMARY | 2024-07-11 07:10 | XMS_ITS | Encounter Summary ---
Author Organization [facility] Healthcare Address [address] [place] [address] Care Team Providers Care Wind Technician Name Role Phone Baldomero Dominguez MD Primary Care Provider [phone] Lane Gonzalez MD Unavailable [phone] Pee Villasenor MD Unavailable [phone] Encounter Details Date Type Department Care Team (Latest Contact Info) Description 11/08/2023 2:09 PM CDT - 11/08/2023 11:59 PM CDT Hospital Encounter [facility] [place] [address] Screening for vaginal cancer Discharge Disposition: Discharge to home or self care Social History Tobacco Use Types Packs/Day Years [...] on file 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 Gender Identity Not on file Sexual Orientation Not on file documented as of this encounter Medications at Time of Discharge cyclobenzaprine (FLEXERIL) 5 mg tablet Take 1 tablet (5 mg total) by mouth 3 (three) times a day as needed for muscle spasms multivit ytnptygb-cztp-WX- calcium (THERA-M) 9 mg iron-400 mcg tablet Take 1 tablet by mouth 2 (two) times a day 60 tablet 11 07/17/2020 documented as of this encounter Discharge Disposition Disposition Code Departure Means Destination Discharge to home or self care documented in this encounter Miscellaneous Notes * Result Encounter Note - Pee Villasenor MD - 11/08/2023 11:59 PM CDT Please notify patient that Pap smear is normal. documented in this encounter Plan of Treatment Not on file documented as of this encounter Procedures Procedure Name Priority Date/Time Associated Diagnosis Comments PAP AND HIGH RISK HPV, REFLEX TO GENOTYPING Routine 11/08/2023 11:28 AM CDT Screening for vaginal cancer VAGINAL HIGH RISK HPV DNA DETECTION WITH GENOTYPING Routine 11/08/2023 10:56 AM CDT Screening for vaginal cancer documented in this encounter Results * Pap and High Risk HPV and Genotyping (Cytology Component) (11/08/2023 11:28 AM CDT) Thin prep (Pap test) 11/08/2023 11:28 AM CDT 11/08/2023 4:23 PM CDT Narrative PATHOLOGY [facility] - 11/11/2023 2:07 PM CDT EPIC results best viewed via link to PDF [facility] [place] [address] Note to Patients: This report may contain [...] ??F : ??1965 (Age: 58) Address: ??[address] [place], [place] ??[address] Hospital #: ??[id number] Service: ??UNKNOWN Location: ?? Patient Type: ??[facility] SPECIMEN Taken: ??11/08/2023 Received: ??11/08/2023 Accessioned: [...] performed using the arturo HPV assay ([employer] This test has been modified from the cloth cutting inspector's instructions. Its performance characteristics were determined by [facility] in a manner consistent with CLIA requirements. This test has not been cleared or approved by the U.S. Food and Drug Administration. Test Performed by: [address] [address] Wood Milling Machine Tender: Pee Maria M.D. Ph.D.; CLIA# [id number] [facility]/11/11/2023 14:07 MISYS Cheung (ASCP) Report Electronically Reviewed and Signed [...] clinical information and biopsy results as indicated. [facility] Clinical Laboratory Improvement Amendments (CLIA) mandate that cytologic and histologic results be correlated for laboratory quality improvement coordinator & improvement standards. ??FOR ALL HIGH-GRADE CASES [...] by the Surgical Pathology Department at [facility] as part of an ongoing manager quality systems program and in compliance with federally mandated [...] by the Surgical Pathology Department of [facility]. ??It has not been cleared or approved by the U. S. Food and Drug Administration. Pee Villasenor MD LAB CYTOLOGY ORDERABLES Final Result PATHOLOGY [facility] * Vaginal High Risk HPV DNA Detection with Genotyping (Molecular component) (11/08/2023 10:56 AM CDT) HPV HR non 16/18 vaginal Negative Negative Comment: The following Other High Risk HPV types were not detected: 31, 33, 35, 39, 45, 51, 52, 56, 58, 59, 66, and 68 ADDITIONAL INFORMATION Testing was performed using the arturo HPV assay ([employer] This report is intended for use in clinical monitoring and management of patients. ??It is not intended for use in medical-legal applications. This test has been modified from the cloth cutting inspector's instructions. ??Its performance characteristics were determined by [facility] in a manner consistent with CLIA requirements. ??This test has not been cleared or approved by the U.S. Food and Drug Administration. Test Performed by: [facility] [address] [place] [address] Wood Milling Machine Tender: Pee Maria M.D. Ph.D.; CLIA# [id number] Testing performed by: [facility], [address] [facility] [place]., [address] HPV HR 16 vaginal Negative Negative ALICIA SALAS Comment:Testing performed by : [facility], [address] [place]., [address] HPV HR 18 vaginal Negative Negative [facility] Comment:Testing performed by : [facility], [address] [place]., [address] Vaginal 11/08/2023 10:5 6 AM CDT 11/09/2023 9:27 AM CDT Narrative ALICIA - 11/10/2023 7:48 PM CDT Clinical history and diagnosis->hyst d/t abnormal cells Testing type->Screening Last menstrual period (date if known)->hyst Pee Villasenor MD LAB BODY FLUIDS AND STO OLS ORDERABLES Final Result [facility] [address] [facility] Department [place] [address] documented in this encounter Visit Diagnoses Diagnosis Screening for vaginal cancer Special screening for malignant neoplasms, vagina documented in this encounter Care Teams Wind Technician Relationship Specialty Start Date End Date Baldomero Dominguez MD PCP - General 01/07/17 Lane Gonzalez MD [address] [facility] [address] [place] [address] Consulting Physician Interventional Cardiology 12/18/21 Pee Villasenor MD [address] [facility] [address] [place] [address] Consulting Physician Obstetrics and Gynecology 12/26/21 documented as of this encounter
--- OUTSIDE RECORDS SUMMARY | 2024-07-11 07:10 | XMS_ITS | Encounter Summary ---
Author Organization [facility] Address [address] [place] [address] Care Team Providers Care Reciprocating Drill Operator Name Role Phone Baldomero Dominguez MD Primary Care Provider [phone] Lane Gonzalez MD Unavailable [phone] Pee Villasenor MD Unavailable [phone] Reason for Referral * Sleep Medicine (Routine) - Closed Specialty Diagnoses / Procedures Referred By Contvaishnavi t Referred To Contact Diagnoses TRACE (obstructive sleep apnea) Snoring Hypersomnia Procedures Portable/Home Sleep Study Sobia Bell NP [address] [facility] [address] [address] Phone: tel: fax: [facility] [address] [place] [address] Phone: tel: fax: Referral ID Status Reason Start Date Expiration Date Visits Re quested Visits Authorized [id number] Closed 11/12/2023 12/11/2024 1 1 Reason for Visit * Sleep Medicine (Routine) - Closed Specialty Diagnoses / Procedures Referred By Vianca t Referred To Contact Diagnoses TRACE (obstructive sleep apnea) Snoring Hypersomnia Procedures Portable/Home Sleep Study Sobia Bell, CEREAL MILLER [address] [facility] [place] [place] [address] Phone: tel: fax: [facility] OP [address] [address] Phone: tel: fax: Referral ID Status Reason Start Date Expiration Date Visits Re quested Visits Authorized [id number] Closed 11/12/2023 12/11/2024 1 1 Encounter Details Date Type Department Care Team (Latest Contact Info) Description 02/02/2024 1:00 PM CDT - 02/02/2024 11:59 PM CDT Hospital Encounter [facility] [address] [place] [address] TRACE (obstructive sleep apnea); Snoring; Hypersomnia Discharge Disposition: Discharge to home or self [...] on file Legal Sex Female 1:19 PM OBSTETRICS GYN Gender Identity Not on file Sexual Orientation Not on file documented as of this encounter Medications at Time of Discharge cyclobenzaprine (FLEXERIL) 5 mg tablet Take 1 tablet (5 mg total) by mouth 3 (three) times a day as needed for muscle spasms multivit mkixyqji-gmvb-UR- calcium (THERA-M) 9 mg iron-400 mcg tablet Take 1 tablet by mouth 2 (two) times a day 60 tablet 11 07/17/2020 documented as of this encounter Discharge Disposition Disposition Code Departure Means Destination Discharge to home or self care documented in this encounter Miscellaneous Notes * Addendum Note - Laith Smart MD - 02/02/2024 1:00 PM CDTEncounter addended by: Laith Smart MD on: 02/03/2024 12:30 PM Actions taken: Charge Capture section accepted documented in this encounter Plan of Treatment Not on file documented as of this encounter Procedures Procedure Name Priority Date/Time Associated Diagnosis Comments PORTABLE/HOME SLEEP STUDY Routine 02/02/2024 1:10 PM CDT TRACE (obstructive sleep apnea) Snoring Hypersomnia documented in this encounter Results * Portable/Home Sleep Study (02/02/2024 1:10 PM CDT) us Sobia Bell [facility] ORDERABLES Fin al Result [facility] [address] [place] [address] documented in this encounter Visit Diagnoses Diagnosis TRACE (obstructive sleep apnea) Obstructive sleep apnea (adult) (pediatric) Snoring Other dyspnea and respiratory abnormality Hypersomnia Hypersomnia, unspecified documented in this encounter Care Teams Reciprocating Drill Operator Relationship Specialty Start Date End Date Baldomero Dominguez MD PCP - General 01/07/17 Lane Gonzalez MD [address] [facility] [address] [place] [address] Consulting Physician Interventional Cardiology 12/18/21 Pee Villasenor MD [address] [facility] [address] L[address] [place] [address] Consulting Physician Obstetrics and Gynecology 12/26/21 documented as of this encounter
--- OUTSIDE RECORDS SUMMARY | 2024-07-11 07:10 | XMS_ITS | Encounter Summary ---
Author Organization [facility] Address [address] [facility] [address] [place] [address] Phone Care Team Providers Care Assistant Director Of Residence Life Name Role Phone Baldomero Dominguez MD Primary Care Provider [phone] Lane Gonzalez MD Unavailable [phone] Pee Villasenor MD Unavailable [phone] Reason for Visit * Reason Onset Date Comments Post-op Problem 10/18/2023 Encounter Details Date Type Department Care Team (Late st Contact Info) Description 10/18/[address] 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 Hasbeen going on for about 6 months. Outcome/Plan: follow up appointment made to re-establish care. Encouraged patient to go back to a liquid diet for 48 hours. If feeling better, can slowly advance diet from there. Pt to call the office if symptoms worsen. documented in this encounter Plan of Treatment Not on file documented as of this encounter Visit Diagnoses Not on filedocumented in this encounter Care Teams Assistant Director Of Residence Life Relationship Specialty Start Date End Date Baldoemro Dominguez MD PCP - General 01/07/17 Lane Gonzalez MD [address] [place] [address] [address] [place] [address] Consulting Physician Interventional Cardiology 12/18/21 Pee Villasenor MD [address] [facility] [address] [place] [address] Consulting Physician Obstetrics and Gynecology 12/26/21 documented as of this encounter
--- OUTSIDE RECORDS SUMMARY | 2024-07-11 07:10 | XMS_ITS | Encounter Summary ---
Author Organization [facility] Healthcare Address [address] [place] [address] Care Team Providers Care Lithographic Stripper Name Role Phone Baldomero Dominguez MD Primary Care Provider [phone] Lane Gonzalez MD Unavailable [phone] Pee Villasenor MD Unavailable [phone] Reason for Visit * Reason Comments Follow-up Encounter Details Date Type Department Care Team (Late st Contact Info) Description 12/23/2022 12:45 PM CDT Office Visit [facility] Outpatient [facility] [address] [facility] [place] [address] Healthcare maintenance Social History Tobacco Use Types Packs/Day Years [...] on file 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 Gender Identity Not on file Sexual Orientation Not on file documented as of this encounter Last Filed Vital Signs Vital Sign Reading Time Taken Comments Blood Pressure 128/66 12/23/2022 2:15 PM CDT Pulse 62 12/23/2022 2:15 PM CDT Temperature 36.3 ??C (97.4 ??F) 12/23/2022 2:15 PM CD T Respiratory Rate - - Oxygen Saturation 100% 12/23/2022 2:15 PM CDT Inhaled Oxygen Concentration - - Weight 99.7 kg (219 lb 14.4 oz) 12/23/2022 2:15 PM CDT Height - - Body Mass Index 35.51 12/02/2022 1:26 PM CDT documented in this encounter Patient Instructions * Patient Instructions* Marva Awad MD - 12/23/2022 12:45 PM CDT Contact [facility] - 3rd Floor TUBE CLEANER [address] [place] [address] Office hours: Wednesday-Wednesday 8:30 AM-4:30 PM Phone number: [phone] Daytime: Call us if you have questions or if you are getting worse after your appointment. If you need to cancel or change your appointment, call during normal clinic hours. We appreciate at least 24 hours notice for cancellations. Call during daytime hours to change your appointment, for paperwork or othernon- urgent needs. Do not call the clinic to request refills, call your pharmacy and they will contact the clinic. After hours emergencies: If the clinic is not open and you are having a medical problem, you can call us at [phone]. Please wait until the clinic is open for non-urgent needs as this emergency line cannot help with appointments, paperwork or prescriptions. If you have an emergency and cannot wait, please call 911 or go to the [facility] Emergency room. If you are having a problem with or are in labor you can go to the [facility] [place] (check in near elevator on first floor) [address] [facility], 5th [place] [address]. You can follow up with Dr. Villasenor in 6 months for an annual well woman exam. You no longer need to come to the oncology clinic unless you have questions or concerns. documented in this encounter Progress Notes * Marva Awad MD - 12/23/2022 12:45 PM CDT [facility] Postoperative Clinic Note Patient here for post operative check s/p RA-TLH/BSO/SLND/DINA for grade 1 endometrial cancer on 12/07/22. Since surgery reports has been doing well. Denies fevers, chills, nausea, emesis, redness or drainage from incision(s). Reports light pink discharge, denies vaginal bleeding. Denies any problemswith urination or bowel movements. BP 128/66 Pulse 62 Temp 36.3 ??C (97.4 ??F) Wt 219 lb 14.4 oz (99.7 kg) LMP 11/17/2021 SpO2 100% BMI 35.51 kg/m?? Gen: No acute distress, alert and oriented Abd: Soft, nontender, nondistended Inc: incisions healing well, no erythema, no induration SSE/Bimanual exam: Vaginal cuff well healing, without evidence of bleeding in the vaginal vault or further defects Ext: Warm and well perfused A/P: 57 y.o. postop week 2 s/p RA-TLH/BSO/SLND/DINA for grade 1 endometrial cancer, doing well. 1. Incision(s): well healing 2. Overall meeting milestones. 3. Discussed 6 weeks of further pelvic rest, other postop expectations. Patient voiced understanding. Patient to follow up with Dr. Villasenor in 6 months. Patient seen and discussed with Dr. Pepper and Dr. Alvarado. Marva Awad MD Cosigned by Angeline Alvarado MD at 12/23/2022 3:07 PM CDT Associated attestation - Angeline Alvarado MD - 12/23/2022 3:07 PM CDT I have seen and examined the patient. I agree with the findings and plan of care as documented in the resident/fellow's note. documented in this encounter Plan of Treatment Not on file documented as of this encounter Visit Diagnoses Diagnosis Healthcare maintenance documented in this encounter Care Teams Lithographic Stripper Relationship Specialty Start Date End Date Baldomero Dominguez MD PCP - General 01/07/17 Lane Gonzalez MD [facility] [address] [place] [address] Consulting Physician Interventional Cardiology 12/18/21 Pee Villasenor MD [address] [facility] [address] [place] [address] Consulting Physician Obstetrics and Gynecology 12/26/21 documented as of this encounter
--- OUTSIDE RECORDS SUMMARY | 2024-07-11 07:10 | XMS_ITS | Encounter Summary ---
Author Organization [facility] Healthcare Address [address] [place] [address] Care Team Providers Care Life Scientist Name Role Phone Baldomero Dominguez MD Primary Care Provider [phone] Lane Gonzalez MD Unavailable Pee Villasenor MD Unavailable [phone] Encounter Details Date Type Department Care Team (Late st Contact Info) Description 03/08/2024 Telephone [facility] Pulmonology [address] [facility] [address] [place] [address] Sobia Bell, JACQUARD LOOM WEAVER [address] [facility] [address] [place] [address] Social History Tobacco Use Types Packs/Day Years [...] on file Legal Sex Female 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 She said her current setting is 5-14cm. She also does not like the ramp. She would rather have a fixed setting. I told her Iwas not sure if an adjustment can be made from auto to fixed but I would ask for her. documented in this encounter Plan of Treatment Not on file documented as of this encounter Visit Diagnoses Not on filedocumented in this encounter Care Teams Life Scientist Relationship Specialty Start Date End Date Baldomero Dominguez MD PCP - General 01/07/17 Lane Gonzalez MD [address] [facility] [address] [place] [address] Consulting Physician Interventional Cardiology 12/18/21 Pee Villasenor MD [address] [facility] [address] [place] [address] Consulting Physician Obstetrics and Gynecology 12/26/21 documented as of this encounter
--- OUTSIDE RECORDS SUMMARY | 2024-07-11 07:10 | XMS_ITS | Encounter Summary ---
Author Organization [facility] Healthcare Address [address] [place] [address] Care Team Providers Care Card Scraper Name Role Phone Baldomero Dominguez MD Primary Care Provider [phone] Lane Gonzalez MD Unavailable [phone] Pee Villasenor MD Unavailable [phone] Encounter Details Date Type Department Care Team (Late st Contact Info) Description 04/13/2024 Telephone [facility] Medical Group Pulmonology [address] [facility] [address] [place] [address] Lisa Patterson, ODD JOB WORKER [address] [facility] [address] [place] [address] Social History Tobacco Use Types Packs/Day Years [...] on file 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 She is wondering if it is possibly from her cpap usage. There is an updated compliance report scanned into her media. documented in this encounter Plan of Treatment Not on file documented as of this encounter Visit Diagnoses Not on filedocumented in this encounter Care Teams Card Scraper Relationship Specialty Start Date End Date Baldomero Dominguez MD PCP - General 01/07/17 Lane Gonzalez MD [address] [facility] [address] [place] [address] Consulting Physician Interventional Cardiology 12/18/21 Pee Villasenor MD [address] [facility] [address] [place] [address] Consulting Physician Obstetrics and Gynecology 12/26/21 documented as of this encounter
--- OUTSIDE RECORDS SUMMARY | 2024-07-11 07:10 | XMS_ITS | Encounter Summary ---
Author Organization [facility] Healthcare Address [address] [place] [address] Care Team Providers Care Coordinating Producer Name Role Phone Baldomero Dominguez MD Primary Care Provider [phone] Lane Gonzalez MD Unavailable [phone] Pee Villasenor MD Unavailable [phone] Encounter Details Date Type Department Care Team (Late st Contact Info) Description 12/09/2022 Telephone Obstetrics and Gynecology Clinic [address] [facility] 3rd Floor [address] [place] [address] Ambreen Davila Social History Tobacco Use Types Packs/Day Years [...] on file 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 Gender Identity Not on file Sexual Orientation Not on file documented as of this encounter Miscellaneous Notes * Telephone Encounter - Ambreen Davila - 12/09/2022 4:32 PM CDT error documented in this encounter Plan of Treatment Not on file documented as of this encounter Visit Diagnoses Not on filedocumented in this encounter Care Teams Coordinating Producer Relationship Specialty Start Date End Date Baldomero Dominguez MD PCP - General 01/07/17 Lane Gonzalez MD [address] [facility] [address] [place] [address] Consulting Physician Interventional Cardiology 12/18/21 Pee Villasenor MD [address] [facility] [address] [place] [address] Consulting Physician Obstetrics and Gynecology 12/26/21 documented as of this encounter
--- OUTSIDE RECORDS SUMMARY | 2024-07-11 07:11 | XMS_ITS | Encounter Summary ---
Author Organization [facility] Healthcare Address [address] [place] [address] Care Team Providers Care Slime Plant Operator Name Role Phone Baldomero Dominguez MD Primary Care Provider [phone] Lane Gonzalez MD Unavailable [phone] Pee Villasenor MD Unavailable [phone] Encounter Details Date Type Department Care Team (Late st Contact Info) Description 12/01/2022 Telephone Obstetrics and Gynecology Clinic [address] [facility] 3rd Floor [address] [place] [address] Paulina Saenz RN Social History Tobacco Use Types Packs/Day Years Used Date Smoking Tobacco: Never Passive Smoke Exposure: Current Smokeless Tobacco: Never Alcohol Use Standard Drinks/Week Comments Yes 0 (1 standard drink = 0.6 oz pur e alcohol) occasional wine AUDIT-C Answer Date Recorded Q1: How often do you have a drink containing alc ohol? Monthly or less 11/26/2022 Q2: How many drinks containi ng alcohol do you have on a typical day when you are drinking? 1 or 2 11/26/2022 Q3: How often do you have si x or more drinks on one occasion? Never 11/26/2022 Hunger Vital Sign Answer Date Recorded Within the past 12 months, y ou worried that your food would run out before you got the money to buy more. Patient declined Within the past 12 months, t he food you bought just didn't last and you didn't have money to get more. 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 A few questions include: the 1st date the MD diagnosed her, if the patient needs any imaging or lab work done prior to surgery and if she needs to quarantine prior to surgery. Patient is requesting a call from MD to discuss details. RN confirmed best phone number to reach patient at is [phone]. documented in this encounter Plan of Treatment Not on file documented as of this encounter Visit Diagnoses Not on filedocumented in this encounter Care Teams Slime Plant Operator Relationship Specialty Start Date End Date Baldomero Dominguez MD PCP - General 01/07/17 Lane Gonzalez MD [address] [facility] [address] [place] [address] Consulting Physician Interventional Cardiology 12/18/21 Pee Villasenor MD [address] [facility] [address] [place] [address] Consulting Physician Obstetrics and Gynecology 12/26/21 documented as of this encounter
--- OUTSIDE RECORDS SUMMARY | 2024-07-11 07:11 | XMS_ITS | Encounter Summary ---
Author Organization [facility] Address [address] [place] [address] Care Team Providers Care Dye Mixer Name Role Phone Baldomero Dominguez MD Primary Care Provider [phone] Lane Gonzalez MD Unavailable [phone] Pee Villasenor MD Unavailable [phone] Reason for Visit * Reason Comments Questions regarding referral Patient que stioning when she was diagnosed, when Dr. Villasenor knew she had cancer, when her D&C was, etc. Pt states she was notified that biopsy was negative but was retested 6 months later and is now positive. She wants to know who tested the biopsy. Pt would like to know the results of her CBC that she had as pre-testing on 11/26/22. Pt would like to know how far progressed the cancer is. Pt wants to know why a PET scan hasn't been done to evaluate. States she had a friend that went through similar. cont. Pt concerned why fur ther testing like PET scan or blood work have not been done aside from pre-procedure testing. Encounter Details Date Type Department Care Team (Late st Contact Info) Description 12/02/2022 1:15 PM CDT Office Visit [facility] Obstetrical Gynecology [address] [place] [phone] Pee Villasenor MD 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 Subjective/Objective Patient ID: Rowena Quesada is a 57 y.o. female. Chief Complaint Questions regarding referral (Patient questioning when she was diagnosed, when Dr. Villasenor knew she had cancer, when her D&C was, etc. Pt states she was notified that biopsy was negative but was retested 6 months later and is now positive. She wants to know who tested the biopsy. Pt would like to know the results of her CBC that she had as pre-testing on 11/26/22. Pt would like to know how far progressed the cancer is. Pt wants to know why a PET scan hasn't been done to evaluate. States she had a friend that went through similar. ) and cont. (Pt concerned why further testing like PET scan or blood work have not been done aside from pre-procedure testing. ) HPI: As above. Review of Systems Constitutional: Negative for activity [...] Vitals and nursing note reviewed. Constitutional: Appearance: Normal appearance. HENT: Head: Normocephalic. Neurological: General: No focal deficit present. Mental Status: She is alert and oriented to person, place, and time. Psychiatric: Mood and Affect: Mood normal. Judgment: Judgment normal. Assessment/Plan Diagnoses and all orders for this visit: Endometrial cancer (CMS/HCC) (HCC) (C54.1) (Primary) Discussed all her issues at length. Discussed timeline of events including D&C results in summer with recommendation to refer to [facility] fix[facility] Oncology. Patient agrees to this. Also discussed change in pathology interpretation was made it appears in May of 2022. Assuming that this was made at the request of spinner [facility] Oncology. Discussed documentation of all visits made and missed. Discussed the s taging of endometrial cancer which requires her upcoming surgical procedure. All questions answeredand understood. Highly, highly recommend that she keep her surgical date. She agrees. Time spent onthis visit approximately 45 minutes. *This note is dictated using [employer] voice recognition software, variances in spelling and vocabulary are possible and unintentional* documented in this encounter Plan of Treatment Not on file documented as of this encounter Visit Diagnoses Diagnosis Endometrial cancer (CMS/HCC) (HCC)- Primary Malignant neoplasm of corpus uteri, except isthmus documented in this encounter Discontinued Medications Medication Sig Discontinue Reason Start Date End Da te dilTIAZem CD 120 mg 24 hr capsuleIndications:hyper tension,can take up to two times per day, SVT Take 1 capsule (120 mg total) by mouth 2 (two) times a day Patient will start dose 11/26 Dose adjustment 05/02/2020 12/02/2022 documented as of this encounter Historical Medications * This list may reflect changes made after this encounter. dilTIAZem (CARDIZEM) 30 mg tablet Take 1 tablet (30 mg total) by mouth 2 (two) times a day 11/19/2022 11/02/2023 added in this encounter Care Teams Dye Mixer Relationship Specialty Start Date End Date Baldomero Dominguez MD PCP - General 01/07/17 Lane Gonzalez MD [address] [place] [address] Consulting Physician Interventional Cardiology 12/18/21 Pee Villasenor MD [address] [place] [id number] Consulting Physician Obstetrics and Gynecology 12/26/21 documented as of this encounter
--- OUTSIDE RECORDS SUMMARY | 2024-07-11 07:11 | XMS_ITS | Encounter Summary ---
Author Organization [facility] Healthcare Address [address] [place] [address] Care Team Providers Care Crab Fisher Name Role Phone Baldomero Dominguez MD Primary Care Provider [phone] Lane Gonzalez MD Unavailable [phone] Pee Villasenor MD Unavailable [phone] Reason for Visit * Auth/Cert (Routine) Specialty Diagnoses / Procedures Referred By Vianca t Referred To Contact Diagnoses Endometrial cancer (CMS/HCC) (HCC) Endometrial cancer (CMS/HCC) (HCC) [C54.1] Procedures WI LAPS TOTAL HYSTERECT 250 GM/< W/RMVL TUBE/OVARY WI INTRAOP SENTINEL LYMPH NODE ID W/DYE INJECTION WI LAPS SURG BILATERAL TOTAL PELVIC LMPHADECTOMY XI HYSTERECTOMY - LAPAROSCOPIC ROBOTIC ASSISTED XI SALPINGO/OOPHORECTOMY - LAPAROSCOPIC ROBOTIC ASSISTED XI ROBOTIC SENTINEL LYMPH NODE BX EXPLORATORY LAPAROTOMY CYSTOSCOPY Referral ID Status Reason Start Date Expiration Date Visits Re quested Visits Authorized [id number] 1 1 Encounter Details Date Type Department Care Team (Latest Contact Info) Description 12/07/2022 8:37 AM CDT - 12/07/2022 4:04 PM CDT Hospital Encounter [facility] Operating Room [address] [place] [id number] Shauna Soares MD [id number] [place] [address] Endometrial cancer (CMS/HCC) (HCC) Discharge Disposition: Discharge to home or self [...] on file Legal Sex Female 1:19 PM [employer] Gender Identity Not on file Sexual Orientation Not on file documented as of this encounter Last Filed Vital Signs Vital Sign Reading Time Taken Comments Blood Pressure 131/70 12/07/2022 3:20 PM CDT Pulse 88 12/07/2022 3:20 PM CDT Temperature 36.4 ??C (97.5 ??F) 12/07/2022 3:20 PM CD T Respiratory Rate 13 12/07/2022 3:20 PM CDT Oxygen Saturation 95% 12/07/2022 3:20 PM CDT Inhaled Oxygen Concentration - - Weight - - Height - - Body Mass Index - - documented in this encounter Discharge Instructions * Discharge Instructions* Mady Becerra MD - 12/07/2022 10:09 AM CDT Discharge Instructions Call Your Doctor If: * You have a fever more than 101 degrees. * You have swelling or pain in your legs. * You have a hard time breathing or pain in your chest. * You have nausea lasting more than a few hours. * You vomit more than 1 time. * You do not have a bowel movement for 3 days. * Your pain medicine is not helping your pain. * You have foul smelling drainage from your vagina or incision. * You are bleeding more than you do during your regular period. Diet: * You may eat all the foods you ate before surgery. * Drink at least 8-10 cups of water a day. * Avoid drinking alcohol and caffeine. Activity: * Do NOT drive for 24 hours after your surgery * Do NOT lift objects over 20 pounds for 2 weeks. * It is OK to slowly climb stairs. * Staying active is very important to keep your bowels moving and improving your circulation. * Take short walks every day. Care Instructions: * You may shower, let the water run over your incision. Pat dry with a clean towel. Do NOT rub. * No tub baths or soaking until your doctor says it is OK. * Keep your incision clean and dry between showers. * There are paper strips over your wound. It is OK to shower but do NOT scrub them. The paper strips will fall off in about 5 days. If they do not fall off on their own you may remove them. * It???s normal to have vaginal spotting and discharge up to 6 weeks following surgery. Pain: * You can take ibuprofen (600mg every 6 hours) and tylenol (1000mg every 6 hours) as directed by your doctor * You can take oxycodone every 4 hours as needed for breakthrough pain. Be sure to take stool softeners while using this medication * If you do not use all of your narcotic medication, please be sure to dispose of it responsibly. Either return the leftover pills to a Drug Takeback location near you (https://health.[place].gov/safety/bndd/gnwiuymhol-rfbnpmpz-qgtd.php), flush the pills down the toilet, or throw the pills away with your household trash separate from the pill bottle. Follow Up: * It is important to keep your scheduled follow up appointment with your MD. * If you cannot keep your scheduled appointment, please call the office. documented in this encounter Medications at Time of Discharge multivit jirqamqz-lqxo-PG -calcium (THERA-M) 9 mg iron-400 mcg tablet Take 1 tablet by mouth 2 (two) times a day 60 tablet 11 07/17/2020 acetaminophen (TYLENOL) 500 mg tablet Take 2 tablets (1,000 mg total) by mouth every 6 (six) hours as needed for pain 60 tablet 1 12/07/2022 11/02/2023 albuterol HFA (PROVENTIL HFA,VENTOLIN HFA,PROAIR HFA) 90 mcg/actuation inhaler Inhale 1 puff every 6 (six) hours as needed for wheezing 11/02/2023 cholecalciferol (VITAMIN D-3) 1,000 unit capsule Take 1 capsule (1,000 Units total) by mouth every morning 11/02/2023 cyanocobalamin (Vitamin B-12) 500 mcg tabletIndication s:Prevention of Vitamin B12 Deficiency Take 1 tablet (500 mcg total) by mouth daily 30 tablet 11 07/18/2020 02/08/2023 dilTIAZem (CARDIZEM) 30 mg tablet Take 1 tablet (30 mg total) by mouth 2 (two) times a day 11/19/2022 11/02/2023 oxyCODONE (ROXICODONE) 5 mg immediate release tabletIndication s:Pain Take 1 tablet (5 mg total) by mouth every 4 (four) hours as needed for pain 15 tablet 12/07/2022 02/08/2023 traMADoL (ULTRAM) 50 mg tablet Take 1 tablet (50 mg total) by mouth 2 (two) times a day as needed for pain 02/13/2020 02/08/2023 documented as of this encounter Ordered Prescriptions Prescription Sig Dispense Quantity Refills Last Filled Start Date End Date oxyCODONE (ROXICODONE) 5 mg immediate release tabletIndications: Pain Take 1 tablet (5 mg total) by mouth every 4 (four) hours as needed for pain 15 tablet 12/07/2022 3 acetaminophen (TYLENOL) 500 mg tablet Take 2 tablets (1,000 mg total) by mouth every 6 (six) hours as needed for pain 60 tablet 1 12/07/2022 4 documented in this encounter Discharge Disposition Disposition Code Departure Means Destination Comment s Discharge to home or self care documented in this encounter H&P Notes * Shauna Soares MD - 12/07/2022 10:32 AM CDT I have reviewed the H&P, examined the patient, and endorse the findings as written. Plan of Care : Based on the above findings, I consider Rowena Quesada to be an acceptable risk for : Procedure(s): XI HYSTERECTOMY - LAPAROSCOPIC ROBOTIC ASSISTED XI SALPINGO/OOPHORECTOMY - LAPAROSCOPIC ROBOTIC ASSISTED XI ROBOTIC SENTINEL LYMPH NODE BX EXPLORATORY LAPAROTOMY CYSTOSCOPY Source Note - Hernandez Diaz MD - 11/11/2022 2:15 PM CDT [facility] New Patient 11/11/2022 HPI: Rowena Quesada is a 57 y.o. who initially presented to her primary SOLUTION COORDINATOR with AUB and underwent hysteroscopy w/ D&C 12/2021, initially with path consistent with CAH. 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 Pt reports heavy bleeding in the beginning of 2021 after 2 years of not having any vaginal bleedingand presented to her primary SOLUTION COORDINATOR who performed D&C as above. Reports she was told about pathology but had no idea that this was related to cancer. Has not had any vaginal bleeding or other symptoms since that visit. She was referred to revenue cycle administrator onc after her hysteroscopy but was unable to keep her prior appointments. She denies abdominal pain, nausea, vomiting, recent weight changes. Does have some blood in her stool occasionally but thinks this is likely related to her Crohn's disease for whichshe is not on any meds. Would like surgical management as soon as possible. Had pap smear 04/2022 that was NILM and HPV negative. 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 PSH notable for Hx of CS x2 (via MLV), cholecystectomy, and gastric bypass. Reports that they were able to perform gastric bypass laparoscopically. Also has never had issues with anesthesia in the past. Cancer Staging No matching staging information was found for the patient. Oncology History Endometrial cancer (CMS/HCC) ([facility]) 11/09/2022 Initial Diagnosis Endometrial cancer (CMS/HCC) ([facility]) PMH: Past Medical History: Diagnosis Date Abnormal uterine and vaginal bleeding, unspecified patient states unsure of last time noted of date Allergic rhinitis Anemia takes iron daily Arthritis Crohn's disease (CMS/[facility]) ([facility]) Heart disease Heart murmur Hypertension tx in past lost over 100lbs no medications at this time Joint pain Left knee injury states wears brace occurred at work seeing Dr for injections Morbid obesity ([facility]) ([facility]) Sleep apnea does use cpap Supraventricular tachycardia by ECG ([facility]) ([facility]) patient states stopped own on 2 yrs ago medication PSH: Past Surgical History: Procedure Laterality Date SECTION CHOLECYSTECTOMY DILATION AND CURETTAGE OF UTERUS ESOPHAGOGASTRODUODENOSCOPY 03/01/2020 ESOPHAGOGASTRODUODENOSCOPY BIOPSY FUNCTIONAL ENDOSCOPIC SINUS SURGERY GASTRIC BYPASS 07/16/2020 LAPAROSCOPIC GASTRECTOMY - SLEEVE KNEE ARTHROSCOPY W/ MENISCAL REPAIR Left 03/01/2020 Certified Peer Specialist History: Patient's last menstrual period was 11/17/2021. Pap History: was normal. No history of abnormal pap HRT: No history of HRT use OB History: OB History 2 Para 2 Term AB Living SAB IAB Ectopic Multiple Live Births # Outcome Date GA Labor/2nd Weight Sex Delivery Anes PTL Lv A1 A5 1 Para 2 Para Obstetric Comments Medications: HOME MEDICATIONS : acetaminophen-codeine (TYLENOL with CODEINE #3) 300-30 mg per tablet albuterol HFA (PROVENTIL HFA,VENTOLIN HFA,PROAIR HFA) 90 mcg/actuation inhaler cholecalciferol (VITAMIN D-3) 1,000 unit capsule cyanocobalamin (Vitamin B-12) 500 mcg tablet dilTIAZem CD 120 mg 24 hr capsule multivit mlfmqaav-ktqe-OV-calcium (THERA-M) 9 mg iron-400 mcg tablet traMADoL (ULTRAM) 50 mg tablet Allergies: Allergies Allergen Reactions Cefaclor Hives Family History: History of SOLUTION COORDINATOR cancer in mother (unsure of which kind) that required chemo. Family History Problem Relation Age of Onset Depression Mother Diabetes Mother Family history of diabetes mellitus - (Added by TW Conv) Hypertension Mother Family history of hypertension - (Added by TW Conv) Obesity Mother Overweight - (Added by TW Conv) Cancer Mother Family history of malignant neoplasm - (Added by TW Conv) Stroke Maternal Grandmother Breast cancer Neg Hx Ovarian cancer Neg Hx Social History: Social History Tobacco Use Smoking status: Never Smokeless tobacco: Never Substance and Sexual Activity Drug use: Yes Types: Tramadol Sexual activity: Defer Alcohol Use: Not At Risk (12/18/2021) AUDIT-C Frequency of Alcohol Consumption: Monthly or less Average Number of Drinks: 1 or 2 Frequency of Binge Drinking: Never Review of Systems: Review of systems per HPI and otherwise all other systems are negative VITALS: Vitals: 11/11/22 1508 BP: 132/72 BP Location: Right arm Pulse: 71 Temp: 36.1 ??C (97 ??F) TempSrc: Temporal SpO2: 98% Weight: 98.1 kg (216 lb 3.2 oz) Height: 167.6 cm (5' 6 ) Physical Exam: General: NAD, mood appropriate Pulmonary: non-labored and clear to ausculation bilaterally Cardiovascular: Regular rate and rhythm Abdomen: Soft, non-tender, and non-distended. Well healed midline vertical incision. Extremities: Warm and well perfused Lymphatic: No inguinal lypmhadenopathy GENITAL EXAM: External:normal appearing and no lesions Vagina: no lesions and no discharge Cervix: no lesions Uterus: not enlarged, non-tender, fixed, and exam limited due to body habitus Adnexa: non-tender, no palpable masses, and exam limited due to body habitus Rectovaginal: No masses, non-tender Lab/Radiology/Diagnostic Review: Imaging: Pelvic US 09/2021: IMPRESSION: 1. Thickened endometrium measuring up to 1.7 cm, may consider hysteroscopy for further assessment. 2. Hypoechoic endometrial lesion near the fundus 1 cm does have vascular flow suggestive of a true lesion rather than hematoma. This could potentially be an endometrial polyp or submucosal fibroid. This could be correlated with direct inspection. 3. Mildly complex cystic structure right ovary may be a hemorrhagic cyst but not definitive. Peripherally calcified mildly complex cystic structure left ovary. Attention could be made on a three-month follow-up ultrasound. Pathology: A. Uterus, endocervix, curettage - Benign endocervical polyp - Scant fragments of unremarkable squamous epithelium - No evidence of dysplasia or malignancy B. Uterus, endometrium, curettage - Complex atypical hyperplasia - Fragments of unremarkable squamous mucosa B. Uterus, endometrium, polyp, curettage - Endometrioid adenocarcinoma, FIGO grade 1, in association with complex atypical hyperplasia Assessment/Plan: Problem List Hematology and Neoplasia Endometrial cancer (CMS/HCC) (HCC) - Primary Overview - Initially presented to primary SOLUTION COORDINATOR w/ AUB in early 2021 - US on 10/02/21 showed EMS 1.7cm - Hsc D&C 12/26/21, path with figo grade 1 endometrioid adenocarcinoma in association with CAH (pathology reviewed at [facility]) - Last pap 05/21/22: NILM neg HPV 11/11/22: Counseled regarding pathology findings as pt unaware of cancer diagnosis. Currently asymptomatic - no recurrent vaginal bleeding or other symptoms. Discussed recommendation for surgical management and need for staging with RA-TLH, BSO, SLNB, possible cystoscopy and other indicated procedures. She was counseled regarding risks of surgery, especially in setting of previous surgical historyand is aware of risks of bleeding, infection, damage to surrounding structures and need to possiblyconvert to ex-lap. She would like to proceed with surgery and consents signed today. She was also counseled regarding possible need for further treatment following surgery. Plan: - Consented for RA-TLH, BSO, SLNB, possible ex-lap, other indicated procedures - Case request submitted - Recommended follow up with cardiology in setting of untreated SVT - Will need CPAP evaluation Patient seen and discussed with Dr. Guillen and Dr. Fany Diaz MD Cosigned by Shauna Soares MD at 11/11/2022 5:27 PM CDT * Mady Becerra MD - 12/07/2022 10:08 AM CDT I have reviewed the H&P, examined the patient, and endorse the findings as written. Plan of Care : Based on the above findings, I consider Rowena Quesada to be an acceptable risk for : Procedure(s): XI HYSTERECTOMY - LAPAROSCOPIC ROBOTIC ASSISTED XI SALPINGO/OOPHORECTOMY - LAPAROSCOPIC ROBOTIC ASSISTED XI ROBOTIC SENTINEL LYMPH NODE BX EXPLORATORY LAPAROTOMY CYSTOSCOPY Cosigned by Shauna Soares MD at 12/07/2022 10:32 AM CDT Source Note - Hernandez Diaz MD - 11/11/2022 2:15 PM CDT [facility] New Patient 11/11/2022 HPI: Rowena Quesada is a 57 y.o. who initially presented to her primary SOLUTION COORDINATOR with AUB and underwent hysteroscopy w/ D&C 12/2021, initially with path consistent with CAH. 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 Pt reports heavy bleeding in the beginning of 2021 after 2 years of not having any vaginal bleedingand presented to her primary SOLUTION COORDINATOR who performed D&C as above. Reports she was told about pathology but had no idea that this was related to cancer. Has not had any vaginal bleeding or other symptoms since that visit. She was referred to revenue cycle administrator onc after her hysteroscopy but was unable to keep her prior appointments. She denies abdominal pain, nausea, vomiting, recent weight changes. Does have some blood in her stool occasionally but thinks this is likely related to her Crohn's disease for whichshe is not on any meds. Would like surgical management as soon as possible. Had pap smear 04/2022 that was NILM and HPV negative. 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 [facility] notable for Hx of CS x2 (via MLV), cholecystectomy, and gastric bypass. Reports that they were able to perform gastric bypass laparoscopically. Also has never had issues with anesthesia in the past. Cancer Staging No matching staging information was found for the patient. Oncology History Endometrial cancer (CMS/HCC) ([facility]) 11/09/2022 Initial Diagnosis Endometrial cancer (CMS/HCC) ([facility]) PMH: Past Medical History: Diagnosis Date Abnormal uterine and vaginal bleeding, unspecified patient states unsure of last time noted of date Allergic rhinitis Anemia takes iron daily Arthritis Crohn's disease (CMS/HCC) ([facility]) Heart disease Heart murmur Hypertension tx in past lost over 100lbs no medications at this time Joint pain Left knee injury states wears brace occurred at work seeing Dr for injections Morbid obesity ([facility]) ([facility]) Sleep apnea does use cpap Supraventricular tachycardia by ECG ([facility]) ([facility]) patient states stopped own on 2 yrs ago medication PSH: Past Surgical History: Procedure Laterality Date SECTION CHOLECYSTECTOMY DILATION AND CURETTAGE OF UTERUS ESOPHAGOGASTRODUODENOSCOPY 03/01/2020 ESOPHAGOGASTRODUODENOSCOPY BIOPSY FUNCTIONAL ENDOSCOPIC SINUS SURGERY GASTRIC BYPASS 07/16/2020 LAPAROSCOPIC GASTRECTOMY - SLEEVE KNEE ARTHROSCOPY W/ MENISCAL REPAIR Left 03/01/2020 Certified Peer Specialist History: Patient's last menstrual period was 11/17/2021. Pap History: was normal. No history of abnormal pap HRT: No history of HRT use OB History: OB History 2 Para 2 Term AB Living SAB IAB Ectopic Multiple Live Births # Outcome Date GA Labor/2nd Weight Sex Delivery Anes PTL Lv A1 A5 1 Para 2 Para Obstetric Comments Medications: HOME MEDICATIONS : acetaminophen-codeine (TYLENOL with CODEINE #3) 300-30 mg per tablet albuterol HFA (PROVENTIL HFA,VENTOLIN HFA,PROAIR HFA) 90 mcg/actuation inhaler cholecalciferol (VITAMIN D-3) 1,000 unit capsule cyanocobalamin (Vitamin B-12) 500 mcg tablet dilTIAZem CD 120 mg 24 hr capsule multivit bvoncmxw-gkbm-WD-calcium (THERA-M) 9 mg iron-400 mcg tablet traMADoL (ULTRAM) 50 mg tablet Allergies: Allergies Allergen Reactions Cefaclor Hives Family History: History of SOLUTION COORDINATOR cancer in mother (unsure of which kind) that required chemo. Family History Problem Relation Age of Onset Depression Mother Diabetes Mother Family history of diabetes mellitus - (Added by TW Conv) Hypertension Mother Family history of hypertension - (Added by TW Conv) Obesity Mother Overweight - (Added by TW Conv) Cancer Mother Family history of malignant neoplasm - (Added by TW Conv) Stroke Maternal Grandmother Breast cancer Neg Hx Ovarian cancer Neg Hx Social History: Social History Tobacco Use Smoking status: Never Smokeless tobacco: Never Substance and Sexual Activity Drug use: Yes Types: Tramadol Sexual activity: Defer Alcohol Use: Not At Risk (12/18/2021) AUDIT-C Frequency of Alcohol Consumption: Monthly or less Average Number of Drinks: 1 or 2 Frequency of Binge Drinking: Never Review of Systems: Review of systems per HPI and otherwise all other systems are negative VITALS: Vitals: 11/11/22 1508 BP: 132/72 BP Location: Right arm Pulse: 71 Temp: 36.1 ??C (97 ??F) TempSrc: Temporal SpO2: 98% Weight: 98.1 kg (216 lb 3.2 oz) Height: 167.6 cm (5' 6 ) Physical Exam: General: NAD, mood appropriate Pulmonary: non-labored and clear to ausculation bilaterally Cardiovascular: Regular rate and rhythm Abdomen: Soft, non-tender, and non-distended. Well healed midline vertical incision. Extremities: Warm and well perfused Lymphatic: No inguinal lypmhadenopathy GENITAL EXAM: External:normal appearing and no lesions Vagina: no lesions and no discharge Cervix: no lesions Uterus: not enlarged, non-tender, fixed, and exam limited due to body habitus Adnexa: non-tender, no palpable masses, and exam limited due to body habitus Rectovaginal: No masses, non-tender Lab/Radiology/Diagnostic Review: Imaging: Pelvic US 09/2021: IMPRESSION: 1. Thickened endometrium measuring up to 1.7 cm, may consider hysteroscopy for further assessment. 2. Hypoechoic endometrial lesion near the fundus 1 cm does have vascular flow suggestive of a true lesion rather than hematoma. This could potentially be an endometrial polyp or submucosal fibroid. This could be correlated with direct inspection. 3. Mildly complex cystic structure right ovary may be a hemorrhagic cyst but not definitive. Peripherally calcified mildly complex cystic structure left ovary. Attention could be made on a three-month follow-up ultrasound. Pathology: A. Uterus, endocervix, curettage - Benign endocervical polyp - Scant fragments of unremarkable squamous epithelium - No evidence of dysplasia or malignancy B. Uterus, endometrium, curettage - Complex atypical hyperplasia - Fragments of unremarkable squamous mucosa B. Uterus, endometrium, polyp, curettage - Endometrioid adenocarcinoma, FIGO grade 1, in association with complex atypical hyperplasia Assessment/Plan: Problem List Hematology and Neoplasia Endometrial cancer (CMS/HCC) (HCC) - Primary Overview - Initially presented to primary SOLUTION COORDINATOR w/ AUB in early 2021 - US on 10/02/21 showed EMS 1.7cm - Hsc D&C 12/26/21, path with figo grade 1 endometrioid adenocarcinoma in association with CAH (pathology reviewed at [facility]) - Last pap 05/21/22: NILM neg HPV 11/11/22: Counseled regarding pathology findings as pt unaware of cancer diagnosis. Currently asymptomatic - no recurrent vaginal bleeding or other symptoms. Discussed recommendation for surgical management and need for staging with RA-TLH, BSO, SLNB, possible cystoscopy and other indicated procedures. She was counseled regarding risks of surgery, especially in setting of previous surgical historyand is aware of risks of bleeding, infection, damage to surrounding structures and need to possiblyconvert to ex-lap. She would like to proceed with surgery and consents signed today. She was also counseled regarding possible need for further treatment following surgery. Plan: - Consented for RA-TLH, BSO, SLNB, possible ex-lap, other indicated procedures - Case request submitted - Recommended follow up with cardiology in setting of untreated SVT - Will need CPAP evaluation Patient seen and discussed with Dr. Guillen and Dr. Fany Diaz MD Cosigned by Shauna Soares MD at 11/11/2022 5:27 PM CDT documented in this encounter Miscellaneous Notes * Op Note - Zack Lynn MD - 12/07/2022 11:05 AM CDT Operative Note Attending Surgeon: Shauna Soares MD Surgical Team: Surgeon(s) and Role: * Shauna Soares MD - Primary * Mady Becerra MD - Resident - Assisting * Scott Sarkar MD PhD - Resident - Assisting * Zack Lynn MD - Fellow DATE OF SURGERY : 12/07/2022 Preoperative Diagnosis: Pre-op Diagnosis * Endometrial cancer (CMS/HCC) (HCC) [C54.1] Postoperative Diagnosis: Post-op Diagnosis * Endometrial cancer (CMS/HCC) (HCC) [C54.1] Name of Operation: Procedure(s): XI HYSTERECTOMY - LAPAROSCOPIC ROBOTIC ASSISTED XI SALPINGO/OOPHORECTOMY - LAPAROSCOPIC ROBOTIC ASSISTED XI ROBOTIC SENTINEL LYMPH NODE BX Lysis of adhesions Indication for Procedure: This is a 57 y.o. whom presented with G1 endometrioid adenocarcinoma desiring surgical management. Risks, benefits and alternatives were discussed and informed consent was obtained. Operative Findings: On exam under anesthesia, pt with normal external female genitalia. Uterus with limited mobility measuring about 8 weeks in size. No adnexal masses palpated. Manipulator easily placed. Laparoscopy revealed normal upper abdominal survey including: normal liver edge, normal omentum, normal gastric curvature. Pelvic survey revealed uterus with dense adhesions posteriorly with adhesions to the bilateral ovaries, fallopian tubes and rectum. Over 60 mins spent on adhesiolysis. Bilateral sentinel lymph nodes mapped to the external iliac arteries. Small area of rectosigmoid mesentery bleeding; this area was oversewed with 2-0 Vicryl. Bilateral ureterolysis performed with adequate vermiculation. Left ovary with ruptured cyst; with contents consent with endometrioma. Endometriotic implants noted onbilateral ovarian beds also with scarred adherent uterosacrals. Overall, no evidence of extrauterine disease. Procedure in detail: The patient was prepped and draped in sterile fashion and placed in lithotomy position. Time out was performed to confirm correct patient and procedure. Exam under anesthesia was performed and confirmed the above stated findings. Attention was turned to the cervix and ICG was injected at 3 and 9 O'clock with 1 ml superficial and 1 ml deep on each side. Next a large size V-care was placed in standard fashion followed by a sterile burt catheter. Gen/Clinda was used for antibiotic prophylaxis. Attention was then turned to the abdomen. The Veress needle was used to enter the abdomen at the umbilicus. Saline drop test confirmed intra-abdominal placement and CO2 insufflation was initiated with an opening pressure <5mmHg. Next, local anesthetic was injected and a 8 mm incision was createdwith the scalpel. The 8 mm camera port was placed in direct fashion. The camera was then inserted confirming correct placement and no evidence of trauma. Next attention was turned to the left side ofthe abdomen. Two additional trochars were placed in the left lateral and left upper quadrant. Localanesthetic was injected and 8 mm skin incision was created, both trochars were placed under direct v isualization without adverse event. Attention was turned to the right side of the abdomen and an additional robot trochar was placed in right upper quadrant and the 5 Airseal was placed laterally. [place] similar fashion local anesthetic appropriate sized skin incision and direct visualization placed these trochars without adverse event. The patient was then placed in steep trendelenburg, the bowel was swept from the pelvis, and the XIrobotic platform was docked. Attention was turned to the right pelvic side wall and the round ligament was cauterized with bipolar and transected with scissors. The peritoneum of the sidewall was opened parallel to the gonadal vessles and taken cephalad to the pelvic brim. The retroperitoneum was opened and exposed the ureter and iliac vessels. The near infrared imaging was then used to identify the green sentinel node that mapped to the external iliac node. The node was grasped and placed under moderate traction. Care was taken to use minimal cautery and gentle blunt dissection to dissect and remove the node. The node was then removed. Next the avascular space of graves was opened with thecautery and the IP was skeletonized. The gonadal vessles were then ligated with the bipolar and transected with the scissors and hemostasis was assured. Attention was then turned to the vesicouterine peritoneum which was taken down with the scissors. The vesicovaginal space was then developed exposing the V- care cup and colpotomy site. Attention was turned to the left pelvic sidewall and the colon's peritoneal attachments were taken down with the scissors. The sidewall was then opened with the scissors and extended parallel to the gonadal vessels towards the round ligament. The round ligament was ligated with the bipolar and transected with scissors. The retroperitoneum was opened and exposed the ureter and iliac vessels. The near infrared imaging was then used to identify the green sentinel node that mapped to the external iliac node. The node was grasped and placed under moderate traction. Care was taken to use minimal cautery and gentle blunt dissection to dissect and remove the node. The node was then removed from the body. Next the avascular space of graves was opened with the cautery and the IP was skeletonized. The gonadal vessles were then ligated with the bipolar and transected with the scissors and hemostasis was assured. At this point it was noted that the left ovary was densely adherent to the posterior uterus and rectum. Using sharp dissection without cautery. The rectovaginal septum was opened and the rectum was freed form its attachments the the bilateral ovaries and the posterior body of the uterus. Next the right uterine vessels were skeletonized and taken with the bipolar and transected with thescissors. Serial tissue purchases with bipolar followed by scissor transection were used to take down the uterosacral-cardinal complex until the site of cervical vaginal junction was exposed. Similarly the left uterine vessels were skeletonized and ligated with bipolar cautery and transected with the scissors. The uterosacral-cardinal complex was taken down with bipolar and scissor ligation exposing the cervical vaginal junction. Next the colpotomy was initiated at 12 O'clock and completed circumferentially. The specimens were removed vaginally. The vaginal cuff was closed with an 0 V-lock instandard fashion. The surgical beds were inspected and confirmed hemostatic. Speculum exam confirmed a closed hemostatic cuff. The gas and trochars were removed from the abdomen. The remaining skin incisions were all closed with 4-0 Monocryl in subcuticular fashion. The patient tolerated the procedure well. She was taken to the PACU in stable condition. Estimated Blood Loss: 100 cc Specimens: ID Type Source Tests Collected by Time Destination 1 : pelvic washings Fluid Pelvic Washing (Cytology) CYTOLOGY Shauna Soares MD 12/07/2022 1109 A : right external iliac sentinel lymph nodes Tissue Lymph node, sentinel, SOLUTION COORDINATOR SURGICAL PATHOLOGY Shauna Soares MD 12/07/2022 1131 B : left external iliac sentinel lymph nodes Tissue Lymph node, sentinel, SOLUTION COORDINATOR SURGICAL PATHOLOGY Shauna Soares MD 12/07/2022 1200 C : uterus, cervix, bilateral tubes and ovaries Tissue Uterus with/without tubes & ovaries, Neoplastic SURGICAL PATHOLOGY Shauna Soares MD 12/07/2022 1253 Complications: None Sponge/Instrument/Needle Counts: The sponge, lap and needle counts were correct x 2. Condition on Discharge from the operating room was stable Zack Lynn MD Date: 12/07/2022 Time: 1:37 PM The Attending, Shauna Soares MD, was present for the entire procedure Cosigned by Shauna Soares MD at 12/08/2022 6:36 AM CDT Associated attestation - Shauna Soares MD - 12/08/2022 6:36 AM CDT I was present for the entire procedure-- RATLH, BSO, bilateral sentinel LN biopsies, washings, and DINA > 30 minutes. * Brief Op Note - Shauna Soares MD - 12/07/2022 11:05 AM CDT Operative Progress Note Surgical Team: Surgeon(s) and Role: * Shauna Soares MD - Primary * Mady Becerra MD - Resident - Assisting * Scott Sarkar MD PhD - Resident - Assisting * Zack Lynn MD - Fellow Anesthesiologist: Francisco Khan MD MONOMER RECOVERY OPERATOR: Solange Naidu CRNA Blueprint Engineer: Scott Hansen RN Blueprint Engineer Relief: Deanna Gonzalez RN Scrub Relief: Deanna Gonzalez, JENNIFER Scrub: Sabra Hare ST DOPE HOUSE OPERATOR HELPER: Sergio Vu CRNFA [place] Blueprint Engineer: Gertrudis Coreas RN [facility] ORIENTEE: Natalia Sellers RN DATE OF SURGERY : 12/07/2022 Preoperative Diagnosis: Pre-op Diagnosis * Endometrial cancer (CMS/HCC) (HCC) [C54.1] Postoperative Diagnosis: Post-op Diagnosis * Endometrial cancer (CMS/HCC) (HCC) [C54.1] Procedure(s): Procedure(s) (LRB): XI HYSTERECTOMY - LAPAROSCOPIC ROBOTIC ASSISTED (N/A) XI SALPINGO/OOPHORECTOMY - LAPAROSCOPIC ROBOTIC ASSISTED (Bilateral) XI ROBOTIC SENTINEL LYMPH NODE BX (Bilateral) Oversew of the posterior culdesac. Operative Findings: Posterior wall of the uterus and uterosacral ligaments were densely adherent to the rectum. Bilateral tubes/ovaries were adherent to the sidewall. [place] of the uterus revealed no obvious gross residual cancer. No evidence of disease outside of the uterus. Bilateral sentinel LNs mapped to the external iliac vessels. Estimated Blood Loss: 50 mL Intraoperative Fluids: 1100 mls Specimens: ID Type Source Tests Collected by Time 1 : pelvic washings Fluid Pelvic Washing (Cytology) CYTOLOGY Shauna Soares MD 12/07/2022 1109 A : right external iliac sentinel lymph nodes Tissue Lymph node, sentinel, SOLUTION COORDINATOR SURGICAL PATHOLOGY Shauna Soares MD 12/07/2022 1131 B : left external iliac sentinel lymph nodes Tissue Lymph node, sentinel, SOLUTION COORDINATOR SURGICAL PATHOLOGY Shauna Soares MD 12/07/2022 1200 C : uterus, cervix, bilateral tubes and ovaries Tissue Uterus with/without tubes & ovaries, Neoplastic SURGICAL PATHOLOGY Shauna Soares MD 12/07/2022 1253 UOP: 100 mls Implants: Nothing was implanted during the procedure Blood/Blood Products Transfused: N/A Complications: None Condition on Discharge from the operating room was stable Shauna Soares MD Date: 12/07/2022 Time: 1:39 PM TEACHING ATTESTATION : I was present and directly participated in the entire procedure (including opening and closing). documented in this encounter Plan of Treatment Not on file documented as of this encounter Procedures Procedure Name Priority Date/Time Associated Diagnosis Comments SURGICAL PATHOLOGY Routine 12/07/2022 11 :31 AM CDT Endometrial cancer (CMS/HCC) (HCC) CYTOLOGY Routine 12/07/2022 11:09 AM CDT Endometrial cancer (CMS/HCC) (HCC) XI ROBOTIC SENTINEL LYMPH NODE 12/07/2022 10:38 AM CDT Endometrial cancer (CMS/HCC) (HCC) XI SALPINGO/OOPHORECTOMY - LAPAROSCOPIC ROBOTIC ASSISTED 12/07/2022 10:38 AM CDT Endometrial cancer (CMS/HCC) (HCC) XI HYSTERECTOMY - LAPAROSCOPIC ROBOTIC ASSISTED 12/07/2022 10:38 AM CDT Endometrial cancer (CMS/HCC) (HCC) documented in this encounter Results * Surgical pathology (12/07/2022 11:31 AM CDT) Tissue (Lymph node, sentinel, SOLUTION COORDINATOR) 12/07/2022 11:31 AM CDT Tissue (Lymph node, sentinel, SOLUTION COORDINATOR) 12/07/2022 12:00 PM CDT Tissue (Uterus with/without tubes & ovaries, Neoplastic) 12/07/2022 12:53 PM CDT Narrative PATHOLOGY [facility] - 12/15/2022 2:22 PM CDT EPIC results best viewed via link to PDF [facility] [place] [address] Note to Patients: This report may contain [...] can answer questions and explain the details. SURGICAL PATHOLOGY REPORT FINAL WITH ADDENDUM Patient Name: ?? ROWENA QUESADANicole Gender: ??F : ??1965 (Age: 57) Address: ??[address] , [place], [place] ??[address] Hospital #: ??[id number] Taken:12/07/2022 Received:12/07/2022 Reported: 12/15/2022 Patient Type: [facility] SDS ?? Service: Surgery Location: [facility] OR POD1 Physician(s): ??Shauna Soares M.D. Dr Baldomero Alvarado Jr., M.D. Mady Becerra M.D. Zack Lynn M.D. Diagnosis: A. Lymph nodes, right external iliac sentinel, excision ? - No evidence of malignancy in two lymph nodes (0/2) B. Lymph node, left external iliac sentinel, excision ? - No evidence of malignancy in two lymph nodes (0/2) ? C. Uterus, cervix, bilateral fallopian tubes and ovaries, hysterectomy with bilateral salpingo-oophorectomy ? - Endomyometrium ? - Focal endometrioid adenocarcinoma, FIGO grade 1, in association with complex atypical hyperplasia (entire endometrium embedded for microscopic examination) ? - Limited to the endometrium (no myometrial invasion identified) ? - No lymphovascular invasion identified ? - Adenomyosis, not involved by carcinoma ? - Lower uterine segment not involved bycarcinoma ? - See synoptic and forthcoming biomarker addendum and comment ? - ??Leiomyomata ? - Cervix ? - Cervical polyp ? - No evidence of dysplasia or malignancy ? - Left fallopian tube ? - No evidence of malignancy ? - Right fallopian tube ? - Endometriosis, no evidence of malignancy ? - Left ovary ? - Endometriosis/endometriotic cyst, no evidence of malignancy ? - Right ovary ? - Endometriotic cyst, no evidence of malignancy [facility]/12/10/2022 16:38 By this signature, I attest that the above diagnosis is based upon my personal examination of the slides(and/or other material indicated in the diagnosis). Pio Zhou M.D., Ph.D. Report Electronically Reviewed and Signed Out By ??Pio Zhou M.D., Ph.D. 12/15/2022 14:22:58 Microscopic Description and Comment: Microscopic examination substantiates the above cited diagnosis. ??Previous slides ([id number]) were reviewed. As per the sentinel lymph node protocol, multiple levels and a pancytokeratin immunohistochemical stain (IHC; single antibody stain procedure with appropriate controls) were performed on the sentinel lymph node specimens (part A and part B) and show no evidence of metastatic adenocarcinoma. Phoebe Fernando M.D. History: The patient is a 57-year-old woman with history of endometrial cancer. ??Operative procedure: Robotic assisted laparoscopic hysterectomy with bilateral salpingo-oophorectomy and sentinel lymph node biopsy Specimen(s) Received: A: Right external iliac sentinel lymph nodes B: Left external iliac sentinel lymph nodes C: Uterus, cervix, bilateral tubes and ovaries Gross Description: Received in three formalin jars labeled with the patient's identifiers. A. ??Labeled right external iliac sentinel lymph nodes are two lymph nodes with associated adipose tissue (0.6 x 0.5 x 0.3 cm and 2 x 1.4 x 0.7 cm). ??Labeled A 1-smaller intact lymph node; A 2/A 3-larger node, sectioned. ??Jar 0. ?? B. ??Labeled left external iliac sentinel lymph node is a 2 x 1 x 0.4 cm piece of fibrofatty tissue. ??Palpation shows three putative lymph nodes (0.2, 0.5, and 1.3 cm in greatest dimension). ??Labeled B1-two intact putative lymph nodes; B2-a single sectioned lymph node. ??Jar 0. ?? C. ??Labeled uterus, cervix, bilateral tubes and ovaries is a 131 g specimen including uterus (8.5 x 5.5 x 3.5 cm), cervix (3.5 x 3 cm, 1 x 0.2 cm os), bilateral fallopian tubes (proximally 6 x 0.5 x 0.5 cm each), and bilateral ovaries (proximally 2 x 1.5 x 1.5 cm each). ??The serosal surface is pink-polanco with some adhesions on the posterior side. ??The endocervical canal includes a 1 x 0.5 x 0.2 cm polyp. ??The endometrium is diffusely hemorrhagic with no obvious focal lesions. ??Sectioning through the myometrium shows some pale discoloration just deep to the endometrium but no definitive myometrial invasion. ??There is no obvious adenomyosis. ??There is at least 10.4 cm subserosal myoma with a white rubbery cut surface. ??The wall measures up to 2.4 cm in thickness. ??The bilateral fallopian tubes and fimbria. ??Sectioning through the right ovary shows a 1.5 cm cyst containing hemorrhagic fluid. ??There is no obvious sectioning through the left ovary shows a 1 cm red-brown hemorrhagic focus. Summary sections C1 Anterior cervix including endocervical polyp C2 Anterior lower uterine segment C3-C4 Full-thickness anterior wall (C1-C4-full length anterior wall in four cassettes) C5-C8 Additional anterior wall including pale discoloration C9 Posterior cervix C10 Posterior lower uterine segment C11-C12 Full-thickness posterior wall (C7-S14-mpli length posterior wall in four cassettes) C13-C14 Additional posterior wall C15 Right fallopian tube C16 Right ovary C17 Left fallopian tube C18 Left ovary Jar 2. ?? [facility]/12/08/2022 13:48 PA(s): Priti Baumann MS, PA ([facility]) ? CANCER CASE SUMMARY FOR CARCINOMA OF THE ENDOMETRIUM ? Procedure: ?Total hysterectomy and bilateral salpingo-oophorectomy ? Hysterectomy Type: ?Laparoscopic, robotic-assisted ? Specimen integrity: ?Received intact ? Tumor Site: ?Endometrium ? Histologic type: ?Endometrioid carcinoma, NOS ? Histologic grade: ?FIGO grade 1 ? Myometrial Invasion: ?Not identified ? Adenomyosis: ?Present, uninvolved by carcinoma ? Uterine Serosa Involvement: ?Not identified ? Lower Uterine Segment Involvement: ?Not identified ? Cervical Stromal Involvement: ?Not identified ? Other Tissue/Organ Involvement: ?Not applicable ? Peritoneal/Ascitic Fluid: ?Negative for malignancy (normal/benign) ? Lymphovascular Invasion: ?Not identified ? Regional Lymph Nodes: ?All lymph nodes negative for tumor cells ?Total Number of Pelvic Nodes Examined: 4 ?Number of Pelvic [place] Nodes Examined: 4 ? Pathologic Staging (pTNM, AJCC 8th edition): ? Primary tumor (pT): ?pT1a: Tumor limited to endometrium or invades less than one-half of the myometrium ? Regional lymph nodes (pN): ?Modifer: ??(sn) ?pN0: No regional lymph node metastasis ? FIGO Stage (2015 FIGO Cancer Report): ?IA: No or less than half myometrial invasion ? Additional Pathologic Findings: ?Atypical hyperplasia/endometrial intraepithelial neoplasia ? The pathologic stage assigned here should be regarded as provisional, and may change after integration of clinical ? data not provided with this specimen. ? CAP VERSION: Endometrium 4.1.0.0 ? By this signature, I attest that the above diagnosis is based upon my personal examination of the slides(and/or other material). Addenda/Procedures Addendum Ordered:12/16/2022Status:Signed OutAddendum Complete:12/16/2022y:Pio Zhou M.D., Ph.D.Addendum Signed Out:12/16/2022 Addendum Diagnosis ? GYNECOLOGIC MALIGNANCY BIOMARKER ? Staining performed at: ?[facility] ? Mismatch Repair Protein Staining: ?MLH1: Intact nuclear expression ?PMS2: Intact nuclear expression ?MSH2: Intact nuclear expression ?MSH6: Intact nuclear expression ?Overall MMR Status: Mismatch repair intact ? p53 Expression Staining Pattern: ?Wild type expression ? HER-2 Staining Pattern: ?Not performed ? ER and WI Staining Pattern: ?Estrogen Receptor (ER) ?Positive ?Percentage of tumor cells with nuclear positivity: 100 % ?Intensity: ??Strong ?Progesterone Receptor (WI) ?Positive ?Percentage of cells with nuclear positivity: 100 % ?Intensity: ??Strong ? Technical Notes ? Control expression, sample adequacy and uniformity of staining of the above tests are all verified. ? MMR Protein IHC ? IHC is a reliable measure of DNA mismatch repair status but is neither completely sensitive nor specific and has ? limitations. ? p53 IHC ? p53 (antibody DO-7), Estrogen Receptor (ER, antibody SP1), Progesterone Receptor (WI, antibody 1E2), and HER2 ? (rabbit monoclonal antibody 4B5) were evaluated by immunohistochemistry (IHC) and morphometric analysis in ? routine formalin-fixed paraffin-embedded tissue using a proprietary polymer-based detection system and instrumentation ? by [employer] per corrugated sheet material sheeter? ? s recommendation. ? p53 IHC can be used as a surrogate for p53 mutation status in endometrial carcinoma and other malignancies ? (Makenzie et al, Int J Gynecol Pathol 2019, PMID 08026007; Aurelio et al, J Pathol 2020, PMID 12747205), however, it is ? neither completely sensitve nor specific and has limitations. ? HER-2 IHC ? IHC for Pathway Her2 (antibody 4B5) rabbit monoclonal antibody antibody were scored in compliance with the proposed ? scoring criteria used in the Justinoer et al 2018 clinical trial of trastuzumab in uterine serous ??carcinoma (see: Justinoer et al ? J Clin Oncol 2018, PMID 84008551; and Linda Arch Pathol Lab Med 2020,PMD, 12323217). ? Her2 Interpretation Guide: ? Score 0, Negative: No staining in tumor cells. ? Score 1+, Negative: Faint/barely perceptible, incomplete membrane staining in any proportion, or weak complete staining ? in <10% of tumor cells. ? Score 2+, Equivocal: Intense complete or basolateral/lateral membrane staining in <=30%, or weak to moderate in ? >=10% of tumor cells. ? Score 3+, Positive: Intense complete or basolateral/lateral membrane staining in >30% of tumor cells. ? ER and WI IHC ? There are currently no outcome-driven consensus guidelines for reporting immunohistochemical assays for ER and WI in ? endometrial cancer. The [employer] (CAP) recommends using a similar reporting format as those ? used for breast cancer, with the proportion of positive cells as well as the intensity of immunostaining stated (see: CAP ? Template for Reporting Results of Biomarker Testing of Specimens from Patients with Carcinoma ? of the Endometrium, 2019). ?? By this signature, I attest that the above diagnosis is based upon my personal examination of the slides(and/or other material indicated in the diagnosis). Pio Zhou M.D., Ph.D.Report Electronically Reviewed and Signed Out By ??Pio Zhou M.D., Ph.D. ??12/16/2022 17:52:04Phoebe Fernando M.D. ?? The performance characteristics of some immunohistochemical stains, fluorescence in-situ hybridization tests and immunophenotyping by flow cytometry cited in this report (if any) were determined by the Surgical Pathology and Flow Cytometry Departments at [facility] as part of an ongoing water quality analyst program and in compliance with federally [...] performance characteristics determined by the Surgical Pathology and Flow Cytometry Departments of [facility]. ??It has not been cleared or approved by the U. S. Food and Drug Administration. IMAGES AND SCANNED DOCUMENTS, IF INCLUDED, ONLY VIEWABLE IN PDF VERSION OF REPORT Shauna Soares MD LAB PATHOLOGY ORDERABLE S Final Result PATHOLOGY [facility] 3rd Floor [place], [place] [phone] * Cytology (12/07/2022 11:09 AM CDT) Fluid (Pelvic Washing (Cytology)) 12/07/2022 11:09 AM CDT Narrative PATHOLOGY [facility] - 12/09/2022 1:56 PM CDT EPIC results best viewed via link to PDF [facility] [place] [address] Note to Patients: This report may contain [...] the details. CYTOPATHOLOGY REPORT FINAL Patient Name: ?? ROWENA QUESADA Gender: ??F : ??1965 (Age: 57) Address: ??[address], [place] ??[address] Hospital #: ??[id number] Taken:12/07/2022 Received:12/07/2022 Reported: 12/09/2022 Patient Type: [facility] SDS ?? Service: Surgery Location: [facility] OR POD1 Physician(s): ??Shauna Soares M.D. Dr Baldomero Alvarado Jr., M.D. Mady Becerra M.D. Zack Lynn M.D. FINAL DIAGNOSIS A. ??Pelvic washing: ? - Negative for malignancy [facility]/12/09/2022 13:56 By this signature, I attest that the above diagnosis is based upon my personal examination of the slides(and/or other material indicated in the diagnosis). Andrew Fallon M.D. Report Electronically Reviewed and Signed Out By ??Andrew Fallon M.D. 12/09/2022 13:56:56 Kanchan Elizabeth MS, CT (ASCP) Gross Description A. ??Pelvic washing: ??40 ml clear fluid - 1 Pap stained ThinPrep. (pc) Clinical Diagnosis and History endometrial cancer REPORT IMAGES AND SCANNED DOCUMENTS, IF INCLUDED, ONLY VIEWABLE IN PDF VERSION OF REPORT The performance characteristics of some immunohistochemical stains, in-situ hybridization and fluorescence in-situ hybridization tests and immunophenotyping by flow cytometry cited in this report (if any) were determined by the Surgical Pathology and Flow Cytometry Departments at [facility] as part of an ongoing water quality analyst program and in compliance with federally [...] following disclaimer be attached to the report: ??This test was developed and its performance characteristics determined by the Surgical Pathology and Flow Cytometry Departments of [facility]. ??It has not been cleared or approved by the U. S. Food and Drug Administration. Shauna Soares MD LAB CYTOLOGY ORDERABLES Final Result PATHOLOGY [facility] [address]rd Floor [place], [place] [phone] documented in this encounter Visit Diagnoses Diagnosis Endometrial cancer (CMS/HCC) (HCC)- Primary Malignant neoplasm of corpus uteri, except isthmus Endometrial cancer (CMS/HCC) (HCC) Malignant neoplasm of corpus uteri, except isthmus documented in this encounter Admitting Diagnoses Diagnosis Endometrial cancer (CMS/HCC) (HCC) Malignant neoplasm of corpus uteri, except isthmus documented in this encounter Administered Medications Inactive Administered Medications - up to 3 most recent administrations Medication Order MAR Action Action Date Dose Rate Site Carrier Fluids for Secondary Infusion - 0.9% Sodium Chloride 30 mL, intravenous, As needed, For priming tubing and/or flushing, Starting on Wed12/07/22 at 0855, Pre-Op, 0-250 ml/hr to flush line after IV infusions when no maintenance IV ordered. Infuse 30mL at the same rate as the secondary infusion. Run as primary IV, not intended for KVO. Lactated Ringer's (LR) infusion 30 mL/hr, intravenous, Continuous, Starting on Wed12/07/22 at 0930, Pre-Op New Bag 12/07/2022 1:33 PM CDT New Bag 12/07/2022 10:38 AM CDT ondansetron ODT (ZOFRAN-ODT) disintegrating tablet 4 mg 4 mg, oral, Once, On Wed12/07/22 at 1615, For 1 dose, Phase I Given 12/07/2022 3:49 PM CDT 4 mg prochlorperazine (COMPAZINE) injection 5 mg 5 mg, intravenous, Administer over 2 Minutes, Once as needed, nausea, vomiting, Starting on Wed12/07/22 at 1356, For 1 dose, Phase I Given 12/07/2022 2:33 PM CDT 5 m g sodium chloride 0.9% flush 0.5-20 mL 0.5-20 mL, intra-catheter, As needed, line care, Starting on Wed12/07/22 at 0855, Pre-Op, Flush volume based on line type and size. Flush before and after each use. documented in this encounter Active and Recently Administered Medications Times are shown in CDT. Scheduled Medication Order 12/05/2022 12/06/2022 12/07/2022 clindamycin (CLEOCIN) 900 mg/50 mL in dextrose 5% (premix) 900 mg (COMPLETED)(Linked Group 1) 900 mg, intravenous, at 100 mL/hr, Administer over 30 Minutes, Once, On Wed12/07/22 at 0930, For 1 dose, Pre-Op, Administer within in 60 minutes of incision., Indications: Prophylaxis, Surgical 1051 (Given - Provid er: Solange Naidu CRNA) gentamicin (GARAMYCIN) 370 mg in sodium chloride 0.9% 37 mL (10 mg/mL) syringe (COMPLETED)(Linked Group 1) 370 mg (rounded from 374 mg = 5 mg/kg ? 74.8 kg Adjusted weight), intravenous, Administer over 30 Minutes, Once, On Wed12/07/22 at 0930, For 1 dose, Pre-Op, Administer within 60 minutes of incision., Indications: Prophylaxis, Surgical 1051 (New Bag - Prov ider: Solange Naidu CRNA) ondansetron ODT (ZOFRAN-ODT) disintegrating tablet 4 mg (COMPLETED) 4 mg, oral, Once, On Wed12/07/22 at 1615, For 1 dose, Phase I 1549 (Given - Provid er: Bennie Bradshaw RN) Continuous Medication Order 12/05/2022 12/06/2022 12/07/2022 Lactated Ringer's (LR) infusion 30 mL/hr, intravenous, Continuous, Starting on Wed12/07/22 at 0930, Pre-Op 1038 (New Bag - Prov ider: Solange Naidu CRNA)1333 (New Bag - Provider: Solange Naidu CRNA)1347 (Stopped - Provider: Solange Naidu CRNA) PRN Medication Order 12/05/2022 12/06/2022 12/07/2022 BUPivacaine (MARCAINE) 0.25 % (2.5 mg/mL) preservative free injection (CANCELED) As needed, Starting on Wed12/07/22 at 1030, Intra-Op 1030 (Given - Provid er: Shauna Soares MD) Carrier Fluids for Secondary Infusion - 0.9% Sodium Chloride 30 mL, intravenous, As needed, For priming tubing and/or flushing, Starting on Wed12/07/22 at 0855, Pre-Op, 0-250 ml/hr to flush line after IV infusions when no maintenance IV ordered. Infuse 30mL at the same rate as the secondary infusion. Run as primary IV, not intended for KVO. fentaNYL (SUBLIMAZE) preservative free injection 50 mcg 50 mcg, intravenous, Once as needed, uncontrolled pain on PACU admission, Starting on Wed12/07/22 at 1356, For 1 dose, Phase I, Then proceed to PACU 1st line analgesic., Indications: Pain HYDROmorphone (DILAUDID) injection 0.2 mg 0.2 mg, intravenous, Administer over 2 Minutes, Every 10 min PRN, 1st line for pain, Starting on Wed12/07/22 at 1356, Phase I, Switch to 2nd line analgesic order if pain is uncontrolled or increasing after 2 doses. Notify Anesthesiologist if total PACU dose reaches 2 mg and pain score 5/10 or more., Indications: Pain HYDROmorphone (DILAUDID) injection 0.4 mg 0.4 mg, intravenous, Administer over 2 Minutes, Every 10 min PRN, 2nd line for pain, Starting on Wed12/07/22 at 1356, Phase I, May administer 10 mintes after 2nd dose of 1st line analgesic agent for uncontrolled or increasing pain. Revert to 1st line dose if POSS of 3. Notify Anesthesiologist if total PACU dose reaches 2 mg and pain score 5/10 or more., Indications: Pain indocyanine green (IC-GREEN) injection (CANCELED) As needed, Starting on Wed12/07/22 at 1031, Intra-Op 1031 (Given - Provid er: Shauna Soares MD) prochlorperazine (COMPAZINE) injection 5 mg (COMPLETED) 5 mg, intravenous, Administer over 2 Minutes, Once as needed, nausea, vomiting, Starting on Wed12/07/22 at 1356, For 1 dose, Phase I 1433 (Given - Provid er: Bennie Bradshaw RN) sodium chloride 0.9% flush 0.5-20 mL 0.5-20 mL, intra-catheter, As needed, line care, Starting on Wed12/07/22 at 0855, Pre-Op, Flush volume based on line type and size. Flush before and after each use. sodium chloride 0.9% irrigation (CANCELED) As needed, Starting on Wed12/07/22 at 1030, Intra-Op 1030 (Given - Provid er: Shauna Soares MD)1031 (Given - Provider: Shauna Soares MD - Comment: suction stable manager bag) sterile water irrigation (CANCELED) As needed, Starting on Wed12/07/22 at 1031, Intra-Op 1031 (Given - Provid er: Shauna Soares MD - Comment: combined with ic green) Linked Groups Order Group 1: clindamycin (CLEOCIN) 900 mg/50 mL in dextrose 5% (premix) 900 mg (COMPLETED)Jump to med 900 mg, intravenous, at 100 mL/hr, Administer over 30 Minutes, Once, On Wed12/07/22 at 0930, For 1 dose, Pre-Op, Administer within in 60 minutes of incision., Indications: Prophylaxis, Surgical And gentamicin (GARAMYCIN) 370 mg in sodium chloride 0.9% 37 mL (10 mg/mL) syringe (COMPLETED)Jump to med 370 mg (rounded from 374 mg = 5 mg/kg ? 74.8 kg Adjusted weight), intravenous, Administer over 30 Minutes, Once, On Wed12/07/22 at 0930, For 1 dose, Pre-Op, Administer within 60 minutes of incision., Indications: Prophylaxis, Surgical documented in this encounter Orders Medications Ordered That Joaquin ht Not Have Been Administered Count Last Ordered Date First Ordered Date BUPivacaine (MARCAINE) 0.25 % (2.5 mg/mL) preservative free injection 1 12/07/2022 Carrier Fluids for Secondary Infusion - 0.9% Sodium Chloride 12/07/2022 clindamycin (CLEOCIN) 900 mg /50 mL in dextrose 5% (premix) 900 mg 1 12/07/2022 fentaNYL (SUBLIMAZE) preserv ative free injection 50 mcg 1 12/07/2022 gentamicin (GARAMYCIN) 370 m g in sodium chloride 0.9% 37 mL (10 mg/mL) syringe 1 12/07/2022 HYDROmorphone (DILAUDID) injection 0.2 mg 1 12/07/2022 HYDROmorphone (DILAUDID) injection 0.4 mg 1 12/07/2022 indocyanine green (IC-GREEN) injection 1 Lactated Ringer's (LR) infusion 1 3 sodium chloride 0.9% flush 0.5-20 mL 1 11/23 sodium chloride 0.9% irrigation 1 3 sterile water irrigation 12/07/2022 Discharge Count Last Ordered Date First Orde red Date DISCHARGE PATIENT 1 12/07/2022 documented in this encounter Care Teams Crab Fisher Relationship Specialty Start Date End Date Baldomero Dominguez MD PCP - General 01/07/17 Lane Gonzalez MD [address] [facility] [address] [place] [address] Consulting Physician Interventional Cardiology 12/18/21 Pee Villasenor MD [address] [facility] [address] [address] [place] [address] Consulting Physician Obstetrics and Gynecology 12/26/21 documented as of this encounter
--- OUTSIDE RECORDS SUMMARY | 2024-07-11 07:11 | XMS_ITS | Encounter Summary ---
Author Organization [facility] Healthcare Address [address] [place] [address] Care Team Providers Care Check Out Cashier Name Role Phone Baldomero Dominguez MD Primary Care Provider [phone] Lane Gonzalez MD Unavailable [phone] Pee Villasenor MD Unavailable [phone] Encounter Details Date Type Department Care Team (Late st Contact Info) Description 12/01/2022 Telephone Obstetrics and Gynecology Clinic [address] 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 * Telephone Encounter - Vanesa Crowley - 12/01/2022 9:09 AM CDT Patient called in today regarding questions and would like a call back Please and Thanks! documented in this encounter Plan of Treatment Not on file documented as of this encounter Visit Diagnoses Not on filedocumented in this encounter Care Teams Check Out Cashier Relationship Specialty Start Date End Date Baldomero Dominguez MD PCP - General 01/07/17 Lane Gonzalez MD [address] [facility] [address] [address] [place] [address] Consulting Physician Interventional Cardiology 12/18/21 Pee Villasenor MD [address] [facility] [address] [place] [address] Consulting Physician Obstetrics and Gynecology 12/26/21 documented as of this encounter
--- OUTSIDE RECORDS SUMMARY | 2024-07-11 07:11 | XMS_ITS | Encounter Summary ---
Author Organization [facility] Address [address] [place] [address] Phone Care Team Providers Care Sheet Manufacturing Supervisor Name Role Phone Baldomero Dominguez MD Primary Care Provider [phone] Lane Gonzalez MD Unavailable [phone] Pee Villasenor MD Unavailable [phone] Encounter Details Date Type Department Care Team (Late st Contact Info) Description 12/02/2022 Documentation [facility] Obstetrics and Gynecology [address] [facility] Medicine 13th [place] [address] [place] [id number] Zack Lynn MD [address] [address] Social History Tobacco Use Types Packs/Day Years [...] on file 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 I reiterated the intent of the surgeryand preoperative and postoperative management. Pt had questions regarding when she was first diagnosed, and who can we determine whether she has cancer or not without radiographic scans. All questions answered. Explained to pt that she should present 2hrs prior to her scheduled 11am surgery on 12/07. Zack Lynn MD Side Seam Tender Fellow documented in this encounter Plan of Treatment Not on file documented as of this encounter Visit Diagnoses Not on filedocumented in this encounter Care Teams Sheet Manufacturing Supervisor Relationship Specialty Start Date End Date Baldomero Dominguez MD PCP - General 01/07/17 Lane Gonzalez MD [address] [facility] [address] [place] [address] Consulting Physician Interventional Cardiology 12/18/21 Pee Villasenor MD [address] [facility] [address] [place] [place] [address] Consulting Physician Obstetrics and Gynecology 12/26/21 documented as of this encounter
--- OUTSIDE RECORDS SUMMARY | 2024-07-11 07:11 | XMS_ITS | Encounter Summary ---
Author Organization [facility] Healthcare Address [address] [place] [address] Care Team Providers Care Kindergarten Prep Teacher Name Role Phone Baldomero Dominguez MD Primary Care Provider [phone] Lane Gonzalez MD Unavailable [phone] Pee Villasenor MD Unavailable [phone] Encounter Details Date Type Department Care Team (Late st Contact Info) Description 10/16/2022 Telephone Obstetrics and Gynecology Clinic [address] [facility] 3rd Floor [address] [place] [address] Delmis Lentz Social History Tobacco Use Types Packs/Day Years Used Date Smoking Tobacco: Never Smokeless Tobacco: Never Alcohol Use Standard Drinks/Week Comments Yes 0 (1 standard drink = 0.6 oz pur e alcohol) occasional wine AUDIT-C Answer Date Recorded Q1: How often do you have a drink containing alc ohol? Monthly or less 12/18/2021 Q2: How many drinks containi ng alcohol do you have on a typical day when you are drinking? 1 or 2 12/18/2021 Q3: How often do you have si x or more drinks on one occasion? 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 Patient had no questions at this time. 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 and would like a call back to be scheduled for an appt as soon as possible Caller???s Call back #: [phone] Does message need to be routed?Yes-Action Needed documented in this encounter Plan of Treatment Not on file documented as of this encounter Visit Diagnoses Not on filedocumented in this encounter Care Teams Kindergarten Prep Teacher Relationship Specialty Start Date End Date Baldomero Dominguez MD PCP - General 01/07/17 Lane Gonzalez MD [facility] [address] [place] [address] Consulting Physician Interventional Cardiology 12/18/21 Pee Villasenor MD [address] [facility] [address] [place] [address] [place] [address] Consulting Physician Obstetrics and Gynecology 12/26/21 documented as of this encounter
--- OUTSIDE RECORDS SUMMARY | 2024-07-11 07:11 | XMS_ITS | Encounter Summary ---
Author Organization [facility] Healthcare Address [address] [place] [address] Care Team Providers Care Energy Scheduler Name Role Phone Baldomero Dominguez MD Primary Care Provider [phone] Lane Gonzalez MD Unavailable [phone] Pee Villasenor MD Unavailable [phone] Reason for Visit * Auth/Cert (Routine) Specialty Diagnoses / Procedures Referred By Vianca t Referred To Contact Diagnoses Endometrial cancer (CMS/HCC) (HCC) Endometrial cancer (CMS/HCC) (HCC) [C54.1] Procedures VA LAPS TOTAL HYSTERECT 250 GM/< W/RMVL TUBE/OVARY VA INTRAOP SENTINEL LYMPH NODE ID W/DYE INJECTION VA LAPS SURG BILATERAL TOTAL PELVIC LMPHADECTOMY XI HYSTERECTOMY - LAPAROSCOPIC ROBOTIC ASSISTED XI SALPINGO/OOPHORECTOMY - LAPAROSCOPIC ROBOTIC ASSISTED XI ROBOTIC SENTINEL LYMPH NODE BX EXPLORATORY LAPAROTOMY CYSTOSCOPY Referral ID Status Reason Start Date Expiration Date Visits Re quested Visits Authorized [id number] 1 1 Encounter Details Date Type Department Care Team (Late st Contact Info) Description 12/07/2022 10:55 AM CDT - 12/07/2022 2:55 PM CDT Surgery [facility] Operating Room [address] [place] [address] Shauna Soares MD [id number] [place] [address] XI HYSTERECTOMY - LAPAROSCOPIC ROBOTIC ASSISTED, oversew of the posterior culde sac. Surgery Details Date/Time Status Location OR Service Patient Class Case Cl ass Case Type Trauma Case? 12/07/2022 10:55 AM Posted [facility] OR POD 1 328 Obstetrics / Gynecology Outpatient Time Sensitive - 3 Weeks Panel 1 Procedure LRB Anes Op Region Wound Class Comments XI HYSTERECTOMY - LAPAROSCOPIC ROBOTIC ASSISTED, oversew of the posterior culde sac. 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 Gender Identity Not on file Sexual Orientation Not on file documented as of this encounter Last Filed Vital Signs Vital Sign Reading Time Taken Comments Blood Pressure 138/75 12/07/2022 2:50 PM CDT Pulse 72 12/07/2022 2:50 PM CDT Temperature 36.3 ??C (97.3 ??F) 12/07/2022 2:50 PM CD T Respiratory Rate 12 12/07/2022 2:50 PM CDT Oxygen Saturation 94% 12/07/2022 2:50 PM CDT Inhaled Oxygen Concentration - - [...] to a Drug Takeback location near you (https://health.[place].gov/safety/bndd/tembrujcmz-odzoxald-nlyc.php), flush the pills down the toilet, or throw the pills away with your household trash separate from the pill bottle. Follow Up: * It is important to keep your scheduled follow up appointment with your MD. * If you cannot keep your scheduled appointment, please call the office. documented in this encounter Medications at Time of Discharge multivit ntvdtpkt-hmnz-FL -calcium (THERA-M) 9 mg iron-400 mcg tablet [...] y.o. who initially presented to her primary GLASS SILVERER with AUB and underwent hysteroscopy w/ D&C 12/2021, initially with path consistent with CAH. 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 Pt reports heavy bleeding in the beginning of 2021 after 2 years of not having any vaginal bleedingand presented to her primary GLASS SILVERER who performed D&C as above. Reports she was told about pathology but had no idea that this was related to cancer. Has not had any vaginal bleeding or other symptoms since that visit. She was referred to [facility] after her hysteroscopy but was unable [...] Oncology History Endometrial cancer (CMS/HCC) ([facility]) 11/09/2022 Initial Diagnosis Endometrial cancer (CMS/HCC) ([facility]) PMH: Past Medical History: Diagnosis Date Abnormal uterine and vaginal bleeding, unspecified patient states unsure of last time noted of date Allergic rhinitis Anemia takes iron daily Arthritis Crohn's disease (CMS/HCC) (HCC) Heart disease Heart murmur Hypertension tx in past lost over 100lbs no medications at this time Joint pain Left knee injury states wears brace occurred at work seeing Dr for injections Morbid obesity (CMS/HCC) (HCC) Sleep apnea does use cpap Supraventricular tachycardia by ECG (CMS/HCC) ([facility]) patient states stopped own on 2 yrs ago medication PSH: Past Surgical History: Procedure Laterality Date SECTION CHOLECYSTECTOMY DILATION AND CURETTAGE OF UTERUS ESOPHAGOGASTRODUODENOSCOPY 03/01/2020 ESOPHAGOGASTRODUODENOSCOPY BIOPSY FUNCTIONAL ENDOSCOPIC SINUS SURGERY GASTRIC BYPASS 07/16/2020 LAPAROSCOPIC GASTRECTOMY - SLEEVE KNEE ARTHROSCOPY W/ MENISCAL REPAIR Left 03/01/2020 Chief Maintenance Supervisor History: Patient's last menstrual period was 11/17/2021. [...] CD 120 mg 24 hr capsule multivit kqmqwlgs-bblv-XD-calcium (THERA-M) 9 mg iron-400 mcg tablet traMADoL (ULTRAM) 50 mg tablet Allergies: Allergies Allergen Reactions Cefaclor Hives Family History: History of GLASS SILVERER cancer in mother (unsure of which kind) [...] Primary Overview - Initially presented to primary GLASS SIL[facility]ER w/ AUB in early 2021 - US on 10/02/21 showed EMS 1.7cm - Hsc D&C 12/26/21, path with figo grade 1 endometrioid adenocarcinoma in association with CAH (pathology reviewed at [facility]) - Last pap 05/21/22: NILM neg [...] y.o. who initially presented to her primary GLASS SILVERER with AUB and underwent hysteroscopy w/ D&C 12/2021, initially with path consistent with CAH. 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 Pt reports heavy bleeding in the beginning of 2021 after 2 years of not having any vaginal bleedingand presented to her primary GLASS SILVERER who performed D&C as above. Reports she was told about pathology but had no idea that this was related to cancer. Has not had any vaginal bleeding or other symptoms since that visit. She was referred to [facility] after her hysteroscopy but was unable [...] Oncology History Endometrial cancer (CMS/HCC) ([facility]) 11/09/2022 Initial Diagnosis Endometrial cancer (CMS/HCC) ([facility]) PMH: Past Medical History: Diagnosis Date Abnormal uterine and vaginal bleeding, unspecified patient states unsure of last time noted of date Allergic rhinitis Anemia takes iron daily Arthritis Crohn's disease (CMS/HCC) ([facility]) Heart disease Heart murmur Hypertension tx in past lost over 100lbs no medications at this time Joint pain Left knee injury states wears brace occurred at work seeing Dr for injections Morbid obesity (CMS/HCC) (HCC) Sleep apnea does use cpap Supraventricular tachycardia by ECG (CMS/[facility]) ([facility]) patient states stopped own on 2 yrs ago medication PSH: Past Surgical History: Procedure Laterality Date SECTION CHOLECYSTECTOMY DILATION AND CURETTAGE OF UTERUS ESOPHAGOGASTRODUODENOSCOPY 03/01/2020 ESOPHAGOGASTRODUODENOSCOPY BIOPSY FUNCTIONAL ENDOSCOPIC SINUS SURGERY GASTRIC BYPASS 07/16/2020 LAPAROSCOPIC GASTRECTOMY - SLEEVE KNEE ARTHROSCOPY W/ MENISCAL REPAIR Left 03/01/2020 Chief Maintenance Supervisor History: Patient's last menstrual period was 11/17/2021. [...] CD 120 mg 24 hr capsule multivit jnwvibgq-daaz-EO-calcium (THERA-M) 9 mg iron-400 mcg tablet traMADoL (ULTRAM) 50 mg tablet Allergies: Allergies Allergen Reactions Cefaclor Hives Family History: History of GLASS SILVERER cancer in mother (unsure of which kind) [...] Primary Overview - Initially presented to primary GLASS SILVERER w/ AUB in early 2021 - US on 10/02/21 showed EMS 1.7cm - Hsc D&C 12/26/21, path with figo grade 1 endometrioid adenocarcinoma in association with CAH (pathology reviewed at [facility]) - Last pap 05/21/22: NILM neg [...] and the 5 Airseal was placed laterally. Yancy similar fashion local anesthetic appropriate sized skin [...] pelvic washings Fluid Pelvic Washing (Cytology) CYTOLOGY hSauna Soares MD 12/07/2022 1109 A : right external iliac sentinel lymph nodes Tissue Lymph node, sentinel, GLASS SILVERER SURGICAL PATHOLOGY Shauna Soares MD 12/07/2022 1131 B : left external iliac sentinel lymph nodes Tissue Lymph node, sentinel, GLASS SILVERER SURGICAL PATHOLOGY Shauna Soares MD 12/07/2022 1200 [...] MD - Fellow Anesthesiologist: Francisco Khan MD ASSISTANT OCEANOGRAPHER: Solange Naidu CRNA Process Development Associate: Scott Hansen RN Process Development Associate Relief: Deanna Gonzalez RN Scrub Relief: Deanna Gonzalez RN Scrub: Sabra Hare ST FREIGHT RATE ANALYST: Sergio Vu CRNFA Orientee Process Development Associate: Gertrudis Coreas RN FREIGHT RATE ANALYST ORIENTEE: Natalia Sellers RN DATE OF SURGERY [...] Bilateral tubes/ovaries were adherent to the sidewall. [place] of the uterus revealed no obvious gross [...] sentinel lymph nodes Tissue Lymph node, sentinel, GLASS SILVERER SURGICAL PATHOLOGY Shauna Soares MD 12/07/2022 1131 B : left external iliac sentinel lymph nodes Tissue Lymph node, sentinel, GLASS SILVERER SURGICAL PATHOLOGY Shauna Soares MD 12/07/2022 1200 [...] 11:31 AM CDT) Tissue (Lymph node, sentinel, GLASS SILVERER) 12/07/2022 11:31 AM CDT Tissue (Lymph node, sentinel, GLASS SILVERER) 12/07/2022 12:00 PM CDT Tissue (Uterus with/without tubes & ovaries, Neoplastic) 12/07/2022 12:53 PM CDT Narrative PATHOLOGY [facility] - 12/15/2022 2:22 PM CDT EPIC results best viewed via link to PDF [facility] [address] [place] [address] Note to Patients: This report may contain [...] FINAL WITH ADDENDUM Patient Name: ?? ROWENA QUESADA Gender: ??F : ??1965 (Age: 57) Address: ??[address] [place], [place] ??[address] Hospital #: ??[id number] Taken:12/07/2022 Received:12/07/2022 Reported: 12/15/2022 Patient Type: [facility] SDS ?? Service: Surgery Location: [facility] OR POD1 Physician(s): ??Shauna Soares M.D. Dr [...] - Endometriotic cyst, no evidence of malignancy hxl/12/10/2022 16:38 By this signature, I attest that the above diagnosis is based upon my personal examination of the slides(and/or other material indicated in the diagnosis). Pio Zhou M.D., Ph.D. Report Electronically Reviewed and Signed Out By ??Pio Zhou M.D., Ph.D. 12/15/2022 14:22:58 Microscopic Description and Comment: Microscopic examination substantiates the above cited diagnosis. ??Previous slides ([id number]) were reviewed. As per the sentinel lymph [...] lower uterine segment C11-C12 Full-thickness posterior wall (C7-D19-kqoi length posterior wall in four cassettes) C13-C14 Additional posterior wall C15 Right fallopian tube C16 Right ovary C17 Left fallopian tube C18 Left ovary Jar 2. ?? [facility]/12/08/2022 13:48 PA(s): Priti Gilllow, MS, JOSAFAT (ASCP) ? CANCER CASE SUMMARY FOR CARCINOMA OF [...] Pelvic Nodes Examined: 4 ?Number of Pelvic [place] Nodes Examined: 4 ? Pathologic Staging (pTNM, [...] GYNECOLOGIC MALIGNANCY BIOMARKER ? Staining performed at: ?[facility] ? Mismatch Repair Protein Staining: ?MLH1: Intact nuclear expression ?PMS2: Intact nuclear expression ?MSH2: Intact nuclear expression ?MSH6: Intact nuclear expression ?Overall MMR Status: Mismatch repair intact ? p53 Expression Staining Pattern: ?Wild type expression ? HER-2 Staining Pattern: ?Not performed ? ER and VA Staining Pattern: ?Estrogen Receptor (ER) ?Positive ?Percentage of tumor cells with nuclear positivity: 100 % ?Intensity: ??Strong ?Progesterone Receptor (VA) ?Positive ?Percentage of cells with nuclear positivity: [...] Estrogen Receptor (ER, antibody SP1), Progesterone Receptor (VA, antibody 1E2), and HER2 ? (rabbit monoclonal antibody 4B5) were evaluated by immunohistochemistry (IHC) and morphometric analysis in ? routine formalin-fixed paraffin-embedded tissue using a proprietary polymer-based detection system and instrumentation ? by [employer] per skin pass operator? ? s recommendation. ? p53 IHC can be used as a surrogate for p53 mutation status in endometrial carcinoma and other malignancies ? (Makenzie et al, Int J Gynecol Pathol 2019, PMID 30947131; Aurelio et al, J Pathol 2020, PMID 08833426), however, it is ? neither completely sensitve nor specific and has limitations. ? HER-2 IHC ? IHC for Pathway Her2 (antibody 4B5) rabbit monoclonal antibody antibody were scored in compliance with the proposed ? scoring criteria used in the Jun et al 2018 clinical trial of trastuzumab in uterine serous ??carcinoma (see: Jun et al ? J Clin Oncol 2018, PMID 89288332; and Joel Arch Pathol Lab Med 2020,PMD, 84719456). ? Her2 Interpretation Guide: ? Score 0, [...] >30% of tumor cells. ? ER and VA IHC ? There are currently no outcome-driven consensus guidelines for reporting immunohistochemical assays for ER and VA in ? endometrial cancer. The [employer] (CAP) recommends using a similar reporting [...] Surgical Pathology and Flow Cytometry Departments at [facility] as part of an ongoing quality improvement analyst program and in compliance with federally [...] Surgical Pathology and Flow Cytometry Departments of [facility]. ??It has not been cleared or approved by the U. S. Food and Drug Administration. IMAGES AND SCANNED DOCUMENTS, IF INCLUDED, ONLY VIEWABLE IN PDF VERSION OF REPORT us Shauna Soares MD LAB PATHOLOGY ORDERABLE S Final Result PATHOLOGY [facility] [address] [place], [place] [phone] * Cytology (12/07/2022 11:09 AM CDT) Fluid (Pelvic Washing (Cytology)) 12/07/2022 11:09 AM CDT Narrative PATHOLOGY [facility] - 12/09/2022 1:56 PM CDT EPIC results best viewed via link to PDF [facility] [place] [address] Note to Patients: This report may contain [...] ??F : ??1965 (Age: 57) Address: [address] , [place], [place] ??[address] Hospital #: ??[id number] Taken:12/07/2022 Received:12/07/2022 Reported: 12/09/2022 Patient Type: [facility] SDS ?? Service: Surgery Location: [facility] OR POD1 Physician(s): ??Shauna Soares M.D. Gerry Basilio Jr., M.D. Zack Lynn M.D. FINAL DIAGNOSIS A. ??Pelvic washing: ? - Negative for malignancy ctb12/09/2022 13:56 By this signature, I attest that [...] Surgical Pathology and Flow Cytometry Departments at [facility] as part of an ongoing quality improvement analyst program and in compliance with federally [...] Surgical Pathology and Flow Cytometry Departments of [facility]. ??It has not been cleared or approved by the U. S. Food and Drug Administration. Shauna Soares MD LAB CYTOLOGY ORDERABLES Final Result PATHOLOGY [facility] [address] [place], [place] [phone] documented in this encounter Visit Diagnoses Diagnosis [...] MAR Action Action Date Dose Rate Site BUPivacaine (MARCAINE) 0.25 % (2.5 mg/mL) preservative free injection As needed, Starting on Wed12/07/22 at 1030, Intra-Op Given 12/07/2022 10:30 AM CDT 28 mL Carrier Fluids for Secondary Infusion - 0.9% Sodium Chloride 30 mL, intravenous, As needed, For priming tubing and/or flushing, Starting on Wed12/07/22 at 0855, Pre-Op, 0-250 ml/hr to flush line after IV infusions when no maintenance IV ordered. Infuse 30mL at the same rate as the secondary infusion. Run as primary IV, not intended for KVO. indocyanine green (IC-GREEN) injection As needed, Starting on Wed12/07/22 at 1031, Intra-Op Given 12/07/2022 10:31 AM CDT 5 mg Lactated Ringer's (LR) infusion 30 mL/hr, intravenous, [...] I Given 12/07/2022 2:33 PM CDT 5 mg sodium chloride 0.9% flush 0.5-20 mL 0.5-20 mL, intra-catheter, As needed, line care, Starting on Wed12/07/22 at 0855, Pre-Op, Flush volume based on line type and size. Flush before and after each use. sodium chloride 0.9% irrigation As needed, Starting on Wed12/07/22 at 1030, Intra-Op Given 12/07/2022 10:31 AM CDT 1,000 mL Given 12/07/2022 10:30 AM CDT 1,000 mL sterile water irrigation As needed, Starting on Wed12/07/22 at 1031, Intra-Op Given 12/07/2022 10:31 AM CDT 20 mL documented in this encounter Active and Recently [...] Provider: Shauna Soares MD - Comment: suction vacuum applicator operator bag) sterile water irrigation (CANCELED) As needed, [...] intravenous, Administer over 30 Minutes, Once, On 12/07/22 at 0930, For 1 dose, Pre-Op, Administer within 60 minutes of incision., Indications: Prophylaxis, Surgical documented in this encounter Orders Medications Ordered That Joaquin ht Not Have Been Administered Count Last Ordered Date First Ordered Date Carrier Fluids for Secondary Infusion - 0.9% Sodium Chloride 1 12/07/2022 clindamycin (CLEOCIN) 900 mg /50 mL in dextrose 5% (premix) 900 mg 1 12/07/2022 fentaNYL (SUBLIMAZE) preserv ative free injection 50 mcg 1 12/07/2022 gentamicin (GARAMYCIN) 370 m g in sodium chloride 0.9% 37 mL (10 mg/mL) syringe 1 12/07/2022 HYDROmorphone (DILAUDID) injection 0.2 mg 1 12/07/2022 HYDROmorphone (DILAUDID) injection 0.4 mg 1 12/07/2022 Lactated Ringer's (LR) infusion 1 3 sodium chloride 0.9% flush 0.5-20 mL 1 11/23 Discharge Count Last Ordered Date First Orde red Date DISCHARGE PATIENT 1 12/07/2022 documented in this encounter Care Teams Energy Scheduler Relationship Specialty Start Date End Date Baldomero Dominguez MD PCP - General 01/07/17 Lane Gonzalez MD [address] [place] [address] Consulting Physician Interventional Cardiology 12/18/21 Pee Villasenor MD [address] [place] [address] Consulting Physician Obstetrics and Gynecology 12/26/21 documented as of this encounter
--- OUTSIDE RECORDS SUMMARY | 2024-07-11 07:11 | XMS_ITS | Encounter Summary ---
Author Organization [facility] Address [address] [facility] [facility] [address] [place] [id number] Care Team Providers Care Director Of Home Economics Name Role Phone Baldomero Dominguez MD Primary Care Provider [phone] Lane Gonzalez MD Unavailable [phone] Pee Villasenor MD Unavailable [phone] Encounter Details Date Type Department Care Team (Late st Contact Info) Description 11/19/2022 Telephone [facility] Obstetrical Gynecology [address] [facility] [address] [place] [phone] Pee Villasenor MD [address] [facility] [address] [address] Social History Tobacco Use Types [...] on file 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 * Telephone Encounter - Zach Marquez LPN - 11/25/2022 2:36 PM CDT Lm requesting c/b * Telephone Encounter - Pee Villasenor MD - 11/25/2022 12:04 PM CDT I am sorry that she is upset but I do not know anybody to refer to personally. I feel very comfortable in referring patient is with various cancers to their office for further treatment. You can tell her that a partner in our practice knows her surgeon personally and speaks very highly of her. Allof pertinent information is provided through her chart. * Telephone Encounter - Zach Marquez LPN - 11/25/2022 9:34 AM CDT I called and discussed with patient, she states and reiterates upset in regards to Dr. Villasenor notknowing the providers at [facility] individually/personally. She states that if we are referring patients to this practice that Dr. Villasenor should know what's going on over there and should know providers personally and be able to provide information on them individually. She states she was just thrown over to this clinic and doesn't know anything about anything or what's going on. She states she doesn't want to hear I feel they're all strong. That's not what I want to hear. I notified the patient that we did enter the referral for Dr. Hernán Ku initially; however, possibly due to scheduling and who worked best with her schedule, was able to see her soonest, or if they decided as a practice that there was another provider who would be appropriate for her to see that that may be why she was scheduled with another provider. Patient states she knows nothing about this doctor who is doing her surgery (Dr. Soares). Patient was previously referred over and no showed three appointments and their office had issues contacting her - this may be why she was scheduled with another provider as well. Please advise. * Telephone Encounter - Zach Marquez LPN - 11/23/2022 2:04 PM CDT Lm requesting c/b * Telephone Encounter - Zach Marquez LPN - 11/20/2022 9:11 AM CDT Lm requesting c/b * Telephone Encounter - Pee Villasenor MD - 11/20/2022 6:33 AM CDT I personally do not know Dr Forde but as a whole, glaze handler Oncology at [facility] is top notch. Would sendany family member there. They will order any testing that they feel is necessary to improve her outcome. * Telephone Encounter - Zach Marquez LPN - 11/19/2022 3:55 PM CDT Pt had consultation visit 11/11/22 with [facility], per their plan, it looks like the pt has been scheduled for RA-TLH, BSO, SLNB, possible ex-lap 12/07/[address] Soares. Please advise. * Telephone Encounter - Ludin Hoyt MA - 11/19/2022 3:36 PM CDT Please advise * Telephone Encounter - Sabra Vo - 11/19/2022 2:53 PM CDT Last OV: 10/14/22 discuss oncology referral Pt would like to know if she will get x-rays or any further testing to see if the cancer has spread, before she has surgery. Pt would also like to know if there's any surgeons that Dr. Villasenor wouldpersonally recommend for her surgery(per pt- someone who's been a surgeon at least 20yrs)? Per pt if she needs appt to come in and discuss this, that's fine. Preferred Communication: documented in this encounter Plan of Treatment Not on file documented as of this encounter Visit Diagnoses Not on filedocumented in this encounter Care Teams Director Of Home Economics Relationship Specialty Start Date End Date Baldomero Dominguez MD PCP - General 01/07/17 Lane Gonzalez MD [address] [place] [address] Consulting Physician Interventional Cardiology 12/18/21 Pee Villasenor MD [address] [place] [address] Consulting Physician Obstetrics and Gynecology 12/26/21 documented as of this encounter
--- OUTSIDE RECORDS SUMMARY | 2024-07-11 07:11 | XMS_ITS | Encounter Summary ---
Author Organization [facility] Healthcare Address [address] [place] [address] Care Team Providers Care Windows Mobile Developer Name Role Phone Bladomero Dominguez MD Primary Care Provider [phone] Lane Gonzalez MD Unavailable [phone] Pee Villasenor MD Unavailable Reason for Visit * Reason Comments New Patient * Consultation (Routine) - Closed Specialty Diagnoses / Procedures Referred By Contac t Referred To Contact Gynecologic Oncology Diagnoses Atypical endometrial hyperplasia Pee Villasenor MD [address] [facility] [address] [address] Phone: tel: fax: [facility] [address] [place] [address] Phone: tel: fax: Referral ID Status Reason Start Date Expiration Date V isits Requested Visits Authorized [id number] Closed Specialty Services Required 10/14/2022 11/13/2023 1 1 Encounter Details Date Type Department Care Team (Late st Contact Info) Description 11/11/2022 2:15 PM CDT Office Visit [facility] [address] [facility] [place] [address] Endometrial cancer (CMS/HCC) (HCC) (Primary Dx); Atypical endometrial hyperplasia Social History Tobacco Use Types Packs/Day Years [...] more drinks on one occasion? 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 Gender Identity Not on file Sexual Orientation Not on file documented as of this encounter Last Filed Vital Signs Vital Sign Reading Time Taken Comments Blood Pressure 132/72 11/11/2022 3:08 PM CDT Pulse 71 11/11/2022 3:08 PM CDT Temperature 36.1 ??C (97 ??F) 11/11/2022 3:08 PM CDT Respiratory Rate - - Oxygen Saturation 98% 11/11/2022 3:08 PM CDT Inhaled Oxygen Concentration - - Weight 98.1 kg (216 lb 3.2 oz) 11/11/2022 3:08 P M CDT Height 167.6 cm (5' 6 ) 11/11/2022 3:08 PM CDT Body Mass Index 34.9 11/11/2022 3:08 PM CDT documented in this encounter Progress Notes * Hernandez Diaz MD - 11/11/2022 2:15 PM CDT [facility] New Patient 11/11/2022 HPI: Rowena Quesada is a 57 y.o. who initially presented to her primary [facility] with AUB and underwent hysteroscopy w/ D&C 12/2021, initially with path consistent with CAH. 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 Pt reports heavy bleeding in the beginning of 2021 after 2 years of not having any vaginal bleedingand presented to her primary [facility] who performed D&C as above. Reports she was told about pathology but had no idea that this was related to cancer. Has not had any vaginal bleeding or other symptoms since that visit. She was referred to cell geneticist onc after her hysteroscopy but was unable [...] the patient. Oncology History Endometrial cancer (CMS/HCC) (HCC) 11/09/2022 Initial Diagnosis Endometrial cancer (CMS/HCC) (HCC) PMH: Past Medical History: Diagnosis Date Abnormal [...] use cpap Supraventricular tachycardia by ECG (CMS/HCC) (HCC) patient states stopped own on 2 yrs ago medication PSH: Past Surgical History: Procedure Laterality Date SECTION CHOLECYSTECTOMY DILATION AND CURETTAGE OF UTERUS ESOPHAGOGASTRODUODENOSCOPY 03/01/2020 ESOPHAGOGASTRODUODENOSCOPY BIOPSY FUNCTIONAL ENDOSCOPIC SINUS SURGERY GASTRIC BYPASS 07/16/2020 LAPAROSCOPIC GASTRECTOMY - SLEEVE KNEE ARTHROSCOPY W/ MENISCAL REPAIR Left 03/01/2020 Hair Blender History: Patient's last menstrual period was 11/17/2021. [...] CD 120 mg 24 hr capsule multivit skscjubo-sckt-XD-calcium (THERA-M) 9 mg iron-400 mcg tablet traMADoL (ULTRAM) 50 mg tablet Allergies: Allergies Allergen Reactions Cefaclor Hives Family History: History of [facility] [facility] cancer in mother (unsure of which kind) [...] Primary Overview - Initially presented to primary [facility] w/ AUB in early 2021 - US on 10/02/21 showed EMS 1.7cm - [facility] [place] 12/26/21, path with figo grade 1 endometrioid adenocarcinoma in association with CAH (pathology reviewed at [facility]) - Last pap 05/21/22: NILM neg [...] Soares MD at 11/11/2022 5:27 PM CDT Associated attestation - Shauna Soares MD - 11/11/2022 5:27 PM CDT I have seen and examined the patient. I agree with the findings and plan of care as documented in the resident/fellow's note and as discussed with the resident/fellow. 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 Consented for RA- TLH, BSO, SLNB, possible ex-lap, other indicated procedures. All questions and concerns were addressed. * Checo Guillen MD - 11/11/2022 2:15 PM CDT I evaluated the patient with Dr. Soares and Dr. Diaz. She has a recent history of PMB. Recent sampling via hysteroscopy revealed grade 1 endometrial cancer. We counseled her regarding typical management with surgery, which will likely cure her low risk disease. We cautioned that only final pathology would clarify need for adjuvant therapy and prognosis. We discussed the risks of surgery, including bleeding, infection, damage to surrounding structures including but not limited to the bowel, bladder, and ureters, and the risks inherent to anesthesia. We discussed that intraoperative injuries are rare and repaired if they're recognized intraoperatively. We discussed the 10% risk of conversion to laparotomy depending on intraoperative findings. We discussed the risks of perioperative thromboses and potential need for blood transfusion. We also discussed that the final pathology report may necessitate additional procedures or treatments. She understands all of these risks and desires to proceed. All questions answered. PSH: CS, CCK, gastric bypass BMI 35 - Plan for RA-TLH/BSO/SLNB/indicated procedures Checo Guillen MD Gynecologic Oncology Fellow (PGY-6) Pager # documented in this encounter Miscellaneous Notes * Addendum Note - Checo Guillen MD - 11/11/2022 2:15 PM CDTAddended by: CHECO GUILLEN on: 11/16/2022 08:26 PM Modules accepted: Orders documented in this encounter Plan of Treatment Not on file documented as of this encounter Visit Diagnoses Diagnosis Endometrial cancer (CMS/HCC) (HCC)- Primary Malignant neoplasm of corpus uteri, except isthmus Atypical endometrial hyperplasia documented in this encounter Orders Outpatient Referral Count Last Ordered Date Fir st Ordered Date AMB REFERRAL TO GYNECOLOGIC ONCOLOGY 10/24 Nursing Count Last Ordered Date First Orde red Date ORAL INTAKE FOR MAJOR SURGERY COMM 1 2022 PAT - NURSING COMMUNICATION 1 11/16/2022 Case Request Count Last Ordered Date First Orde red Date CASE REQUEST OPERATING ROOM 1 11/16/2022 documented in this encounter Care Teams Windows Mobile Developer Relationship Specialty Start Date End Date Baldomero Dominguez MD PCP - General 01/07/17 Lane Gonzalez MD [address] [facility] [place] [address] Consulting Physician Interventional Cardiology 12/18/21 Pee Villasenor MD [address] [facility] [address] [place] [address] [place] [address] Consulting Physician Obstetrics and Gynecology 12/26/21 documented as of this encounter
--- OUTSIDE RECORDS SUMMARY | 2024-07-11 07:11 | XMS_ITS | Encounter Summary ---
Author Organization [facility] Address [address] [place] [address] Phone Care Team Providers Care Strategy Manager Name Role Phone Baldomero Dominguez MD Primary Care Provider [phone] Lane Gonzalez MD Unavailable [phone] Pee Villasenor MD Unavailable [phone] Reason for Visit * Reason Onset Date Comments Surgery Confirmation 12/04/2022 Encounter Details Date Type Department Care Team (Late st Contact Info) Description 12/04/2022 Telephone [facility] Obstetrics and Gynecology [address] [facility] 13th [place] [address] [place] [address] Shauna Soares MD [address] [place] [id number] [place] [address] Surgery Confirmation Social History Tobacco Use Types Packs/Day Years [...] on file 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 Patient is scheduled for surgery at 10:45 AM, advised to arrive at 8:45 AM. Instructed Rowena Quesada to follow the oral intake instructions for Major on the yellow sheet ofpaper in their surgical folder. Patient also instructed to follow the shower instructions given to them at the time of their CPAP visit. Patient to report to the 3rd Floor of the [facility] to register. Patient verbalized understanding and will be here for surgery. documented in this encounter Plan of Treatment Not on file documented as of this encounter Visit Diagnoses Not on filedocumented in this encounter Care Teams Strategy Manager Relationship Specialty Start Date End Date Baldomero Doimnguez MD PCP - General 01/07/17 Lane Gonzalez MD [address] [facility] [address] [place] [address] [place] [address] Consulting Physician Interventional Cardiology 12/18/21 Pee Villasenor MD [address] [facility] [address] [address] Consulting Physician Obstetrics and Gynecology 12/26/21 documented as of this encounter
--- OUTSIDE RECORDS SUMMARY | 2024-07-11 07:11 | XMS_ITS | Encounter Summary ---
Author Organization [facility] Healthcare Address [address] [place] [address] Care Team Providers Care Chute Boss Name Role Phone Baldomero Dominguez MD Primary Care Provider [phone] Lane Gonzalez MD Unavailable [phone] Pee Villasenor MD Unavailable [phone] Reason for Visit * Auth/Cert (Routine) Specialty Diagnoses / Procedures Referred By Vianca t Referred To Contact Diagnoses Endometrial cancer (CMS/HCC) (HCC) Endometrial cancer (CMS/HCC) (HCC) [C54.1] Procedures NE LAPS TOTAL HYSTERECT 250 GM/< W/RMVL TUBE/OVARY NE INTRAOP SENTINEL LYMPH NODE ID W/DYE INJECTION NE LAPS SURG BILATERAL TOTAL PELVIC LMPHADECTOMY XI HYSTERECTOMY - LAPAROSCOPIC ROBOTIC ASSISTED XI SALPINGO/OOPHORECTOMY - LAPAROSCOPIC ROBOTIC ASSISTED XI ROBOTIC SENTINEL LYMPH NODE BX EXPLORATORY LAPAROTOMY CYSTOSCOPY Referral ID Status Reason Start Date Expiration Date Visits Re quested Visits Authorized [id number] 1 1 Encounter Details Date Type Department Care Team (Late st Contact Info) Description 12/07/2022 10:38 AM CDT Anesthesia Event [facility] Operating Room [address] [place] [id number] Francisco Chairez MD [address] [place] [address] Adri Garrido NP [address] [phone] [place] [address] Anesthesia Record Procedure Summary Procedure Name Responsible Anesthesiologist Anesthesia Start Time Anesthesia Stop Time XI HYSTERECTOMY - LAPAROSCOPIC ROBOTIC ASSISTED, oversew of the posterior culde sac. (Uterus) Francisco Khan MD 12/07/22 1038 12/07/22 1401 Events Date Time Event Comment 12/07/2022 0854 In Preop 1030 1038 In Room 1038 An Start 1038 An Start Data 1045 An Induction The patient was reevaluated immediately before moderate or deep sedation use and before anesthesia induction. 1049 An Intubation 1057 Proc Start 1105 Incision Start 1109 Anesthesia Ready 1237 Quick Note BP cuff readjus nery\ 1343 Proc Fin 1354 An Extubation 1354 an stop data 1354 Out of Room 1401 Handoff to RN I completed my handoff to the receiving nurse during which we: 1. Patient identified 2. Responsible provider identified 3. Pertinent medical history reviewed 4. Procedure type and surgical course discussed 5. Intraoperative anesthetic management and any significant issues discussed 6. Expectations and concerns for postop period discussed 7. Questions solicited from receiving nurse 8. Patient disposition at the time of handoff: PACU 1401 An Stop Meds Name Total midazolam PF 2 mg lidocaine (cardiac) syringe 2 % 100 mg propofol 160 mg fentaNYL 200 mcg HYDROmorphone 2 mg/mL 2 mg rocuronium 50 mg ondansetron PF (ZOFRAN) 2 mg/mL injectio n 4 mg glycopyrrolate 0.6 mg neostigmine injection 1 mg/mL 3 mg clindamycin (CLEOCIN) 900 mg/50 mL in de xtrose 5% (premix) 900 mg 900 mg gentamicin (GARAMYCIN) 370 m g in sodium chloride 0.9% 37 mL (10 mg/mL) syringe 370 mg dexAMETHasone 4 mg/mL 4 mg ketorolac 30 mg Lactated Ringer's (LR) infusion 1,200 mL * Agents Name O2% N2O O2 N2O Air Sevoflurane Inspired Sevoflurane * Blood No blood administrations on file. Lines, Drains, and Airways Type Details Placement Removal RETIRED Surgical Site 12/26/21; 0744; Va isra; 06/27/24 (Retired LDA, Removed/Completed by [facility] with LDA Utility); 1213 (Retired LDA, Removed/Completed by [facility] with LDA Utility) 12/26/21 0744 by Kellie Vale RN 06/27/24 1213 by Discharge Provider, Automatic Peripheral IV Placement Date: 12/07/22; Placement Time: 0948; Catheter Size: 20 G; Orientation: Posterior, Right; Location: Hand; Site Prep: Chlorhexidine; Technique: Anatomical landmarks; Inserted by: Ayaka; Insertion Attempts: 3; Patient Tolerance: Tolerated well; Removal Date: 12/07/22; Removal Time: 1559 12/07/22 0948 by Ayaka German RN 12/07/22 1559 by Bennie Bradshaw RN Urethral Catheter Placement Date: 12/07/22; Placement Time: 1058; Inserted by: dr cueto; Type: Non-latex; Balloon Size: 10 mL; Urine Returned: Yes; Removal Date: 12/07/22; Removal Time: 1333; Removal Reason: Disontinued in OR 12/07/22 1058 by Scott Hansen RN 12/07/22 1333 by Scott Hansen, JENNIFER ETT Placement Date: 12/07/22; Placement Time: 1140 (created via procedure documentation); Mask Ventilation: 1; Technique: Direct laryngoscopy; Type: ETT - single; Single Lumen Tube Size: 7 mm; Cuffed: Yes; Laryngoscope: Cristóbal; Blade Size: 3; Location: Oral; Grade View: Grade I; Insertion Attempts: 1; Placement Verification: Auscultation, Capnometry; Removal Date: 12/07/22; Removal Time: 1354 12/07/22 1140 by Solange Naidu CRNA 12/07/22 1354 by Solange Naidu CRNA RETIRED Surgical Site 12/07/22; 1328; Abdomen; 06/27/24 (Retired LDA, Removed/Completed by [facility] with LDA Utility); 1213 (Retired LDA, Removed/Completed by [facility] with LDA Utility) 12/07/22 1328 by Scott Hansen RN 06/27/24 1213 by Discharge Provider, Automatic documented in this encounter Social History Tobacco [...] on file 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 OR POD 1 ROOM 328 / [facility] OR POD 1 Anesthesia Start: 1038 Anesthesia Stop: 1401 Procedures: XI HYSTERECTOMY - LAPAROSCOPIC ROBOTIC ASSISTED, oversew of the posterior culde sac. (Uterus) XI SALPINGO/OOPHORECTOMY - LAPAROSCOPIC ROBOTIC ASSISTED (Bilateral: Uterus) XI ROBOTIC SENTINEL LYMPH NODE BX (Bilateral: Pelvis) Diagnosis: Endometrial cancer (CMS/HCC) (HCC) (Endometrial cancer (CMS/HCC) (HCC) [C54.1]) Surgeons: Shauna Soares MD Responsible Provider: Francisco Khan MD Anesthesia Type: general ASA Status: 2 Anesthesia Type: general Last vitals BP 138/75 Pulse 72 Temp 36.3 ??C (97.3 ??F) Resp 12 SpO2 94% Anesthesia Post Evaluation Patient location during evaluation: PACU Patient participation: complete - patient participated Level of consciousness: fully awake Pain score: 3 Pain management: adequate Airway patency: adequate Evidence of recall: no Cardiovascular status: hemodynamically stable and blood pressure returned to baseline Respiratory status: acceptable and room air Hydration status: acceptable Pt is: normothermic Nausea/Vomiting status: none Comments: Stable and comfortable. Can go home. BP 138/75 Pulse 72 Temp 36.3 ??C (97.3 ??F) Resp 12 SpO2 94% No notable events documented. * Anesthesia Procedure Notes - Solange Naidu CRNA - 12/07/2022 11:40 AM CDTAssociated Order(s): Airway Airway Patient location: OR Urgency: elective Indications for airway management: anesthesia Difficult airway: no Staff: Supervising provider: Francisco Khan MD Placed by: FOLDER INSPECTOR: Solange Naidu CRNA Emergent airway documentation: Risks and benefits discussed: yes Consent obtained: yes Consent given by: patient Airway prep: Preoxygenated: yes Patient position: sniffing MILS maintained throughout: yes Mask difficulty assessment: 1 - vent by mask Sedation level during airway: GA Final airway details: Final airway type: endotracheal airway Tube type: ETT ETT size: 7.0 mm Cuffed: yes Technique used for successful ETT placement: direct laryngoscopy Devices/Methods used in placement: intubating stylet Insertion site: oral Blade type: Cristóbal Blade size: 3 Cormack-Lehane (direct): grade I - full view of glottis Cuff inflated with: air ETT to teeth: 22 cm Placement verified by: auscultation and CO2 detection Airway secured with: silk tape Number of attempts: 1 * Anesthesia Preprocedure Evaluation - Francisco Khan MD - 11/26/2022 10:12 AM CDT Images from the original note were not included. [facility] Planning Preoperative Evaluation Record Evaluation type/location: [facility] Planned procedure site: [facility] PVT OR (Pod 1) Date: 11/26/22 Anesthesia Evaluation Rowena Quesada is a 57 y.o. female Procedure(s): XI HYSTERECTOMY - LAPAROSCOPIC ROBOTIC ASSISTED XI SALPINGO/OOPHORECTOMY - LAPAROSCOPIC ROBOTIC ASSISTED XI ROBOTIC SENTINEL LYMPH NODE BX EXPLORATORY LAPAROTOMY CYSTOSCOPY Pre-Op Diagnosis Codes: * Endometrial cancer (CMS/HCC) (HCC) [C54.1] HISTORY HPI Rowena Quesada is a 57 y.o. female with PMH of PSVT, obesity, anemia, TRACE, previous destiny +, andCrohn's disease who is being evaluated prior to undergoing laparoscopic robotic assisted hysterectomy, bilateral salpingectomy/oophorectomy, sentinel lymph node biopsy, ex lap, and cystoscopy for endometrial cancer. Past Medical History Information obtained from: patient and chart. Neurological Pertinent negatives: seizures; neuromuscular disease; CVA/stroke; TIA; CEA; ICA stenosis; dementia/mild cognitive impairment and carotid artery stent Cardiovascular + Hypertension + Systolic or diastolic dysfunction w/o CHF (per cardiology note diastolic dysfunction ) Diastolic dysfunction w/o CHF. LVEF: 50-60%. + Other arrhythmia (diltiazem) - PSVT. Pertinent negatives: CAD ; PA ; CABG ; valvular heart disease; valve replacement; atrial fibrillation; pacemaker/ICD; PVD; DVT/PE; negative for CHF; drug-eluting stent(s); bare metal stent(s) and coronary angioplasty Comments: Mamadou CHRISTIAN 10/2022 (in [place]): (visit for pre-op clearance ): Pt is able to walk one flight of stairs without problems. If ECHO shows normal LV systolic function pt does have low risk for moderate risk surgery Respiratory + Sleep apnea (TRACE) Prescribed device: PAP non-compliant and CPAP. Pertinent negatives: COPD; asthma; pulmonary hypertension; no O2 use outside the hospital and non-smoker Hepatic / Heme + History of anemia (06/2022 H&H 13.1/41.5) + History of Destiny positive (Anti-P1) - difficult cross-match Pertinent negatives: liver disease and history of thrombocytopenia Gastrointestinal Pertinent negatives: GERD and hiatal hernia Comments: Renal / Pertinent negatives: renal disease; dialysis and nephrolithiasis Musculoskeletal/Pain + Chronic pain (RA) + Osteoarthritis Pertinent negatives: chronic opioid use and previous treatment for opioid use disorder Endocrine / Other + Obesity (BMI >30) (34.9) + Cancer history- current cancer. Cancer type: Endometrial cancer. + Rheumatological disease ([facility] by Dr Dominguez for +RF and polyarthralgia; crohns in remission; not currently on medication for RA or Crohns) - rheumatoid arthritis and Crohn's disease. Pertinent negatives: diabetes mellitus; thyroid disease and transplanted organ Functional Capacity Functional capacity: 4-6 METs Functional capacity limited by a non-cardiovascular, non-pulmonary condition. Comments: Able to walk 1 mile without sob and cp Able to climb 1 flight of stairs w/o SOB or CP Day of Surgery assessments Comments: LMP: 2 years ago Review of Systems + palpitations (w/SVT) + bleeding problems (AUB, surgical etiology) + dizziness (w/ SVT) + chronic pain (RA) + diarrhea (w/ certain foods) Pertinent negatives: productive cough; wheezing; SOB; recent cold/flu; fever; chest pain; orthopnea; pedal edema; PND; heavy menses; Sickle Cell disease/trait; previous transfusion; transfusion reaction; melena/hematochezia; easy bruising; syncope; muscle weakness; numbness/tingling; hard of hearing; vision loss; heartburn; nausea; dysphagia; dentures/partials; chipped/loose teeth; abdominal pain; diaphoresis and no unexpected weight change Comments: Denies signs of UTI/dental PAT Summary and Plans Cardiac risk classification of planned procedure: intermediate cardiac risk. Preoperative assessment status: lab tests ordered. Initial preoperative evaluation discussed with: Flavio Terrell MD Additional comments: Rowena Quesada is a 57 y.o. female who is being evaluated prior to undergoing an intermediate cardiac risk surgery. Revised Cardiac Risk Index factors are (none) for a total RCRI of 0 out of 6. Functional capacity is 4-6 METs. Obstructive sleep apnea (TRACE) screening status is HIGH RISK due to known TRACE Blood bank needs for day of procedure: Type and Screen only Pending labs/tests include: CBC BMP T&S Urine culture The patient has a history of positive indirect Destiny and is having a surgery where blood antibodies are pertinent to the planned surgery. The antibody type is history of Anti-P1 and pending verification. Per Amol in the [facility] blood bank, anticipated cross-match difficulty is difficult with anticipated necessity of obtaining blood units from the [place]. Based on this information, we will initiate the following blood plan for the day of surgery: TBD pending H/H and/or blood bank results. [place] of surgery blood bank specimen availability, the plan is that the TBD pending H/H and/or blood bank results. >> Echo scheduled on 12/04/22 for pre-op clearance for surgery by cardiology Dr. Lindsay [facility] - will obtain Preoperative evaluation performed by Adri Garrido NP on 11/26/22 at 5:16 BPM. . Follow up note Labs reviewed and are without significant findings. awaiting echo to be perormed on 12/04/2022 Awaiting urine culture. Awaiting outside records. Surgeon's office reviews laboratory results independently, including final results of surgeon ordered labs. Follow-up completed by: Promise Bazan NP on 11/27/22 at 7:49 AM Follow up note Final report of urine culture shows insignificant growth. Awaiting additional testing to be performed. Surgeon's office reviews laboratory results independently. Follow-up completed by: Chantelle Swanson NP on 11/30/22 at 8:52 AM Follow up note TTE was done today (Dr. Lindsay) but no report was sent to us. Patient states I was told it wasfine . The cardiology office closed at 1300. Rediscussed case with CPAP attending. Ok to proceed tosurgery. CPAP process complete. Follow-up completed by: Sabra Vale NP on 12/04/22 at 1:46 PM Patient Active Problem List Diagnosis ??? Arthralgia of hip ??? Morbid obesity (HCC) ??? Crohn's disease (CMS/HCC) (HCC) ??? Paroxysmal supraventricular tachycardia (CMS/HCC) (HCC) ??? Morbid obesity due to excess calories (HCC) ??? Abnormal uterine and vaginal bleeding, unspecified ??? Hyperlipidemia ??? Left atrial dilatation ??? Left ventricular hypertrophy ??? Seasonal allergic rhinitis ??? History of supraventricular tachycardia ??? Diastolic dysfunction ??? Endometrial cancer (CMS/HCC) (HCC) Past Medical History: Diagnosis Date ??? Abnormal uterine and vaginal bleeding, unspecified patient states unsure of last time noted of date ??? Allergic rhinitis ??? Anemia takes iron daily ??? Arthritis ??? Crohn's disease (CMS/HCC) (HCC) ??? Heart disease ??? Heart murmur ??? Hypertension tx in past lost over 100lbs no medications at this time ??? Joint pain ??? Left knee injury states wears brace occurred at work seeing Dr for injections ??? Morbid obesity (HCC) ??? Sleep apnea does use cpap ??? Supraventricular tachycardia by ECG (CMS/HCC) (HCC) patient states stopped own on 2 yrs ago medication Past Surgical History: Procedure Laterality Date ??? SECTION ??? CHOLECYSTECTOMY ??? DILATION AND CURETTAGE OF UTERUS ??? ESOPHAGOGASTRODUODENOSCOPY 03/01/2020 ESOPHAGOGASTRODUODENOSCOPY BIOPSY ??? FUNCTIONAL ENDOSCOPIC SINUS SURGERY ??? 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 KNEE ARTHROSCOPY W/ MENISCAL REPAIR Left 03/01/2020 OB History 2 Para 2 Term AB Living SAB IAB Ectopic Multiple Live Births Obstetric Comments Allergies Allergen Reactions ??? Cefaclor Hives Med List Status: Nurse Complete Set By: Ariella Brady RN at 11/26/2022 3:47 PM Taking? Last Dose Start Date End Date Provider albuterol HFA (PROVENTIL HFA,VENTOLIN HFA,PROAIR HFA) 90 mcg/actuation inhaler -- -- -- ProviderAdry MD cholecalciferol (VITAMIN D-3) 1,000 unit capsule Past Week -- -- ProviderAdry MD cyanocobalamin (Vitamin B-12) 500 mcg tablet Past Week 07/18/20 11/26/22 Rubia Burleson MD Take 1 tablet (500 mcg total) by mouth daily Patient taking differently: Take 1 tablet (500 mcg total) by mouth every morning dilTIAZem CD 120 mg 24 hr capsule -- 05/02/20 -- Adry Sood MD multivit oryibfyc-vosv-NO-calcium (THERA-M) 9 mg iron-400 mcg tablet Past Week 07/17/20 -- Rubia Burleson MD Take 1 tablet by mouth 2 (two) times a day Patient taking differently: Take 1 tablet by mouth every morning traMADoL (ULTRAM) 50 mg tablet -- 02/13/20 -- Adry Sood MD -- Current Outpatient Medications: ??? albuterol HFA (PROVENTIL HFA,VENTOLIN HFA,PROAIR HFA) 90 mcg/actuation inhaler ??? cholecalciferol (VITAMIN D-3) 1,000 unit capsule ??? cyanocobalamin (Vitamin B-12) 500 mcg tablet ??? dilTIAZem CD 120 mg 24 hr capsule ??? multivit ybrwaicx-yfll-EE-calcium (THERA-M) 9 mg iron-400 mcg tablet ??? traMADoL (ULTRAM) 50 mg tablet Social History Tobacco Use Smoking Status Never ??? Passive exposure: Current Smokeless Tobacco Never Vaping Use Vaping Status Never Used Alcohol Use: Not At Risk (11/26/2022) AUDIT-C ??? Frequency of Alcohol Consumption: Monthly or less ??? Average Number of Drinks: 1 or 2 ??? Frequency of Binge Drinking: Never Substance and Sexual Activity Drug Use Never Family History Problem Relation Age of Onset ??? Depression Mother ??? Diabetes Mother Family history of diabetes mellitus - (Added by TW Conv) ??? Hypertension Mother Family history of hypertension - (Added by TW Conv) ??? Obesity Mother Overweight - (Added by TW Conv) ??? Cancer Mother Family history of malignant neoplasm - (Added by TW Conv) ??? Anesthesia problems Sister PONV ??? Stroke Maternal Grandmother ??? Breast cancer Neg Hx ??? Ovarian cancer Neg Hx PAT Physical Exam Airway Exam: Mallampati: II Cervical ROM: FROM Upper lip bite test class: 3 Cardiovascular Exam: Rate: regular Rhythm: regular Negative for Murmur Negative for peripheral edema Pulmonary Exam: LCTA, bilat EENT Exam: trachea midline Dental Exam: Appears intact Skin Exam: Skin is warm. Turgor is normal. Abdominal exam: Abdomen is soft. Bowel sounds are present. Current state: Patient's current state is cooperative and interactive. Vitals: 11/26/22 1550 11/26/22 1552 BP: 124/77 128/78 Pulse: 70 SpO2: 99% Relevant diagnostics: ECG(s): 10/03/21 57 BPM; sinus bradycardia When compared with ECG of 01-OCT-2021 16:55, Vent. rate has decreased BY 85 BPM Incomplete right bundle branch block is no longer Present Echocardiogram(s): ECHO 05/03/20 (11/19/22 Cards note) LV chamber size is normal. LV wall thickness is normal. The estimated left ventricle ejection fraction is 55-60% (normal). Left atrium chamber is mildly dilated. There is mild thickening of mitral valve anterior leaflet. There is trace tricuspid regurgitation. 08/03/18 ECHO: LV chamber size is normal. [...] mitral regurgitation. There is mild tricuspid regurgitation. CXR 10/01/2021 IMPRESSION No acute cardiopulmonary process is identified. PT: No results found for requested labs within last 30 days. INR: No results found for requested labs within last 30 days. APTT: No results found for requested labs within last 30 days. Hgb A1C: No results found for requested labs within last 30 days. CBC RBC: No results found for requested labs within last 30 days. RDW: No results found for requested labs within last 30 days. MCHC: No results found for requested labs within last 30 days. MCH: No results found for requested labs within last 30 days. MCV: No results found for requested labs within last 30 days. Hct: No results found for requested labs within last 30 days. Hgb: No results found for requested labs within last 30 days. WBC: No results found for requested labs within last 30 days. MPV: No results found for requested labs within last 30 days. Platelets: No results found for requested labs within last 30 days. RDW CV: No results found for requested labs within last 30 days. RDW Sd: No results found for requested labs within last 30 days. BMP Glucose: No results found for requested labs within last 30 days. Calcium: No results found for requested labs within last 30 days. Sodium: No results found for requested labs within last 30 days. Potassium: No results found for requested labs within last 30 days. CO2: No results found for requested labs within last 30 days. Chloride: No results found for requested labs within last 30 days. BUN: No results found for requested labs within last 30 days. Creatinine: No results found for requested labs within last 30 days. Joseph index score: 95 DOS Physical Exam Medical history, medications, and allergies reviewed. Attestation: I endorse the findings of the anesthesia pre-evaluation assessment dated: 11/26/2022. Airway Exam: Mallampati: II Cervical ROM: FROM TM distance: >4 Cardiovascular Exam: Rate: regular Rhythm: regular Pulmonary Exam: LCTA, bilat EENT Exam: trachea midline Dental Exam: Appears intact Skin Exam: Skin is warm and dry. Capillary refill is < 3 seconds. Turgor is normal. Abdominal Exam: Abdomen is soft. Bowel sounds are present. Current state: Patient's current state is cooperative. Anesthesia Plan ASA 2 My patient is approved for the Anesthesia Controlled Medication protocol when under care of a FOLDER INSPECTOR Planned anesthesia: General Team communication plan: oral ET tube Induction: Induction: intravenous. Postoperative Plan: Postoperative administration opioids intended. No postoperative mechanical ventilation intended. Patient's planned disposition post procedure is Outpatient. Informed Consent: Discussed plan with FOLDER INSPECTOR. Anesthesia plan and risks discussed with patient. Consent and Attending signature: I and/or my designee have discussed the anesthesia plan, benefits, possible alternatives, parental presence at time of induction (if indicated), and clinically relevant risks that may include dental injury, unintentional awareness, and/or other complications. The patient and/or parent/legal guardian understand, and agree to proceed. All questions answered. documented in this encounter Miscellaneous Notes * Addendum Note - Flavio Jimenez MD - 12/07/2022 3:44 PM CDT Addendum created 12/07/22 1544 by Flavio Jimenez MD Order Reconciliation Section accessed, Order list changed, Pharmacy for encounter modified documented in this encounter Plan of Treatment Not on file documented as of this encounter Procedures Procedure Name Priority Date/Time Associated Diagnosis Comments NE AN PROCEDURE PLACEHOLDER Routine 12/07/2022 11:40 AM CDT NE AN ELECTIVE ENDOTRACHEAL AIRWAY Routine 12/07/2022 11:40 AM CDT documented in this encounter Results * NE AN ELECTIVE ENDOTRACHEAL AIRWAY, NE AN PROCEDURE PLACEHOLDER (12/07/2022 11:40 AM CDT) Narrative Solange Naidu CRNA - 12/07/2022 11:40 AM CDT Solange Naidu CRNA ? 12/07/2022 11:40 AM Airway Patient location: OR Urgency: elective Indications for airway management: anesthesia Difficult airway: no Staff: Supervising provider: Francisco Khan MD Placed by: FOLDER INSPECTOR: Solange Naidu CRNA Emergent airway documentation: Risks and benefits discussed: yes Consent obtained: yes Consent given by: patient Airway prep: Preoxygenated: yes Patient position: sniffing MILS maintained throughout: yes Mask difficulty assessment: 1 - vent by mask Sedation level during airway: GA Final airway details: Final airway type: endotracheal airway Tube type: ETT ETT size: 7.0 mm Cuffed: yes Technique used for successful ETT placement: direct laryngoscopy Devices/Methods used in placement: intubating stylet Insertion site: oral Blade type: Cristóbal Blade size: 3 Cormack-Lehane (direct): grade I - full view of glottis Cuff inflated with: air ETT to teeth: 22 cm Placement verified by: auscultation and CO2 detection Airway secured with: silk tape Number of attempts: 1 Francisco Khan MD ANESTHESIA ORDERAB LES Final Result documented in this encounter Visit Diagnoses Not on filedocumented in this encounter Administered Medications Inactive Administered Medications - up to 3 most recent administrations Medication Order MAR Action Action Date Dose Rate Site clindamycin (CLEOCIN) 900 mg/50 mL in dextrose 5% (premix) 900 mg 900 mg, intravenous, at 100 mL/hr, Administer over 30 Minutes, Once, On Wed12/07/22 at 0930, For 1 dose, Pre-Op, Administer within in 60 minutes of incision., Indications: Prophylaxis, SurgicalIndications:Prophylaxis, Surgical Given 12/07/2022 10:51 AM CDT 900 mg dexAMETHasone (DECADRON) 4 mg/mL injection intravenous, Administer over 2 Minutes, As needed, Starting on Wed12/07/22 at 1111, Anesthesia Intra-op Given 12/07/2022 11:11 AM CDT 4 mg fentaNYL (SUBLIMAZE) preservative free injection intravenous, As needed, Starting on Wed12/07/22 at 1045, Anesthesia Intra-op Given 12/07/2022 10:51 AM CDT 100 mcg Given 12/07/2022 10:45 AM CDT 100 mcg gentamicin (GARAMYCIN) 370 mg in sodium chloride 0.9% 37 mL (10 mg/mL) syringe 370 mg (rounded from 374 mg = 5 mg/kg ? 74.8 kg Adjusted weight), intravenous, Administer over 30 Minutes, Once, On Wed12/07/22 at 0930, For 1 dose, Pre-Op, Administer within 60 minutes of incision., Indications: Prophylaxis, SurgicalIndications:Prophylaxis, Surgical New Bag 12/07/2022 10:51 A M CDT 370 mg glycopyrrolate (ROBINUL) injection intravenous, Administer over 1 Minutes, As needed, Starting on Wed12/07/22 at 1333, Anesthesia Intra-op Given 12/07/2022 1:33 PM CDT 0.6 mg HYDROmorphone (DILAUDID) injection intravenous, Administer over 2 Minutes, As needed, Starting on Wed12/07/22 at 1111, Anesthesia Intra-op Given 12/07/2022 12:26 PM CDT 1 mg Given 12/07/2022 11:11 AM CDT 1 mg ketorolac (TORADOL) 30 mg/mL (1 mL) injection intravenous, As needed, Starting on Wed12/07/22 at 1324, Anesthesia Intra-op Given 12/07/2022 1:24 PM CDT 30 mg Lactated Ringer's (LR) infusion 30 mL/hr, intravenous, Continuous, Starting on Wed12/07/22 at 0930, Pre-Op New Bag 12/07/2022 1:33 PM CDT New Bag 12/07/2022 10:38 AM CDT lidocaine (cardiac) (XYLOCAINE) preservative free injection intravenous, As needed, Starting on Wed12/07/22 at 1045, Anesthesia Intra-op, Indications: Ventricular ArrhythmiasIndications:Ventricular Arrhythmias Given 12/07/2022 10:45 AM CDT 100 mg midazolam (VERSED) 2 mg/2 mL preservative free injection intravenous, Administer over 2 Minutes, As needed, Starting on Wed12/07/22 at 1038, Anesthesia Intra-op Given 12/07/2022 10:38 AM CDT 2 mg neostigmine (PROSTIGMIN) injection intravenous, Administer over 3 Minutes, As needed, Starting on Wed12/07/22 at 1333, Anesthesia Intra-op Given 12/07/2022 1:33 PM CDT 3 mg ondansetron (ZOFRAN) injection intravenous, Administer over 2 Minutes, As needed, Starting on Wed12/07/22 at 1333, Anesthesia Intra-op Given 12/07/2022 1:33 PM CDT 4 mg propofoL (DIPRIVAN) 10 mg/mL IV intravenous, As needed, Starting on Wed12/07/22 at 1045, Anesthesia Intra-op Given 12/07/2022 10:45 AM CDT 160 mg rocuronium (ZEMURON) injection intravenous, As needed, Starting on Wed12/07/22 at 1045, Anesthesia Intra-op Given 12/07/2022 12:07 PM CDT 10 mg Given 12/07/2022 10:45 AM CDT 40 mg documented in this encounter Care Teams Chute Boss Relationship Specialty Start Date End Date Baldomero Dominguez MD PCP - General 01/07/17 Lane Gonzalez MD [address] [facility] [address] [place] [address] Consulting Physician Interventional Cardiology 12/18/21 Pee Villasenor MD [address] [facility] [address] [place] [address] Consulting Physician Obstetrics and Gynecology 12/26/21 documented as of this encounter
--- OUTSIDE RECORDS SUMMARY | 2024-07-11 07:11 | XMS_ITS | Encounter Summary ---
Author Organization [facility] Address [address] [facility] [address] [place] [address] Care Team Providers Care Rope Cutter Name Role Phone Baldomero Dominguez MD Primary Care Provider [phone] Lane Gonzalez MD Unavailable [phone] Pee Villasenor MD Unavailable [phone] Encounter Details Date Type Department Care Team (Late st Contact Info) Description 11/19/2022 Telephone [facility] Obstetrical Gynecology [address] [facility] [address] [place] [phone] Pee Villasenor MD [address] [facility] [address] [address] Social History Tobacco Use Types [...] on file 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 Pt given number to [facility] FLOATLIGHT LOADING SUPERVISOR ONC. * Telephone Encounter - Annabelle Mancera - 11/19/2022 10:00 AM CDT Last WWE/OV: Next WWE/OV: Symptom(s):Patient need number to referral of casualty claim adjuster oncology. Preferred Communication: My Chart / Phone documented in this encounter Plan of Treatment Not on file documented as of this encounter Visit Diagnoses Not on filedocumented in this encounter Care Teams Rope Cutter Relationship Specialty Start Date End Date Baldomero Dominguez MD PCP - General 01/07/17 Lane Gonzalez MD [address] [facility] [address] [place] [address] Consulting Physician Interventional Cardiology 12/18/21 Pee Villasenor MD [address] [facility] [address] [place] [address] Consulting Physician Obstetrics and Gynecology 12/26/21 documented as of this encounter
--- OUTSIDE RECORDS SUMMARY | 2024-07-11 07:12 | XMS_ITS | Encounter Summary ---
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 Patient had no questions at this time RN confirmed clinic number with patient. ESSOR OF SOCIAL WORK documented in this encounter Plan of Treatment Not on file documented as of this encounter Visit Diagnoses Not on filedocumented in this encounter Care Teams Modular Set Crew Member Relationship Specialty Start Date End Date Baldomero Dominguez MD PCP - General 01/07/17 Lane Gonzalez MD [address] [facility] [address] [place] [address] Consulting Physician Interventional Cardiology 12/18/21 Pee Villasenor MD [address] [facility] [address] [place] [address] Consulting Physician Obstetrics and Gynecology 12/26/21 documented as of this encounter
--- OUTSIDE RECORDS SUMMARY | 2024-07-11 07:12 | XMS_ITS | Encounter Summary ---
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 OL BUS DRIVER/TEACHER ASSISTANT documented in this encounter Plan of Treatment Not on file documented as of this encounter Visit Diagnoses Not on filedocumented in this encounter Care Teams Geodesist Relationship Specialty Start Date End Date Baldomero Dominguez MD PCP - General 01/07/17 Lane Gonzalez MD [address] [facility] [address] [place] [address] Consulting Physician Interventional Cardiology 12/18/21 Pee Villasenor MD [address] [facility] [address] [place] [address] Consulting Physician Obstetrics and Gynecology 12/26/21 documented as of this encounter
--- OUTSIDE RECORDS SUMMARY | 2024-07-11 07:12 | XMS_ITS | Encounter Summary ---
Author Organization [facility] Address [address] [facility] [address] [place] [address] Care Team Providers Care Grey Goods Marker Name Role Phone Baldomero Dominguez MD Primary Care Provider [phone] Lane Gonzalez MD Unavailable [phone] Pee Villasenor MD Unavailable [phone] Encounter Details Date Type Department Care Team (Late st Contact Info) Description 04/27/2022 Telephone [facility] Obstetrical Gynecology [address] [facility] [address] [place] [phone] Pee Villasenor MD [address] [facility] [address] [address] Social History Tobacco Use Types [...] on file 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 Stressed importance of keeping appt * Telephone Encounter - Pee Villasenor MD - 04/27/2022 2:30 PM CDT Patient has missed follow-up appointments for postop visit. She does have abnormalities from her D&C. They are not cancer but they could cause her issues. Please schedule her for an appointment in the next week or 2. * Telephone Encounter - Ludin Hoyt MA - 04/27/2022 2:12 PM CDT Please advise * Telephone Encounter - Promise Titus - 04/27/2022 1:27 PM CDT She states her primary doctor told her that she needed to have a 3 month follow up for her cyst. She is thinking she should have ultrasound. The 3 months is up now? documented in this encounter Plan of Treatment Not on file documented as of this encounter Visit Diagnoses Not on filedocumented in this encounter Care Teams Grey Goods Marker Relationship Specialty Start Date End Date Baldomero Dominguez MD PCP - General 01/07/17 Lane Gonzalez MD [address] [facility] [address] [place] [address] Consulting Physician Interventional Cardiology 12/18/21 Pee Villasenor MD [address] [facility] [address] [place] [address] Consulting Physician Obstetrics and Gynecology 12/26/21 documented as of this encounter
--- OUTSIDE RECORDS SUMMARY | 2024-07-11 07:12 | XMS_ITS | Encounter Summary ---
Author Organization [facility] Healthcare Address [address] [place] [address] Care Team Providers Care Infection Control Coordinator Name Role Phone Baldomero Dominguez MD Primary Care Provider [phone] Lane Gonzalez MD Unavailable [phone] Pee Villasenor MD Unavailable [phone] Encounter Details Date Type Department Care Team (Late st Contact Info) Description 08/25/2022 Telephone Obstetrics and Gynecology Clinic [address] [facility] Health 3rd Floor [address] [place] [address] Dee Dee Lepe MA Social History Tobacco Use Types Packs/Day Years [...] 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 Gender Identity Not on file Sexual Orientation Not on file documented as of this encounter Miscellaneous Notes * Telephone Encounter - Dee Dee Lepe MA - 08/25/2022 9:43 AM CST Called patient left message if she calls back please reschedule her new patient oncology appointment Thanks CTOR OF PRODUCT DEVELOPMENT documented in this encounter Plan of Treatment Not on file documented as of this encounter Visit Diagnoses Not on filedocumented in this encounter Care Teams Infection Control Coordinator Relationship Specialty Start Date End Date Baldomero Dominguez MD PCP - General 01/07/17 Lane Gonzalez MD [address] [facility] [address] [place] [address] Consulting Physician Interventional Cardiology 12/18/21 Pee Villasenor MD [address] [facility] [address] [place] [address] Consulting Physician Obstetrics and Gynecology 12/26/21 documented as of this encounter
--- OUTSIDE RECORDS SUMMARY | 2024-07-11 07:12 | XMS_ITS | Encounter Summary ---
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 Patient not available at this time. RN scheduled patient and has sent new patient paperwork and appointment details to address on file. Please confirm appointment date and time if patient returns call. EL FREIGHT AND PASSENGER AGENT documented in this encounter Plan of Treatment Not on file documented as of this encounter Visit Diagnoses Not on filedocumented in this encounter Care Teams Family Life Counselor Relationship Specialty Start Date End Date Baldomero Dominguez MD PCP - General 01/07/17 Lane Gonzalez MD [address] [facility] [address] [place] [address] Consulting Physician Interventional Cardiology 12/18/21 Pee Villasenor MD [address] [facility] [address] [place] [address] Consulting Physician Obstetrics and Gynecology 12/26/21 documented as of this encounter
--- OUTSIDE RECORDS SUMMARY | 2024-07-11 07:12 | XMS_ITS | Encounter Summary ---
Author Organization [facility] Address [address] [facility] [address] [place] [address] Care Team Providers Care Email Production Consultant Name Role Phone Baldomero Dominguez MD Primary Care Provider [phone] Lane Gonzalez MD Unavailable [phone] Pee Villasenor MD Unavailable [phone] Encounter Details Date Type Department Care Team (Late st Contact Info) Description 02/12/2022 Telephone [facility] Obstetrical Gynecology [address] [facility] [address] [place] [phone] Pee Villasenor MD [address] [facility] [address] [address] Social History Tobacco Use Types [...] on file 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 * Telephone Encounter - Sabra Vo - 02/12/2022 11:03 AM CDT Surgery: 12/26/21 Hysteroscopy D&C possbile myosure Next appt: 04/10/22 wwe Pt cancelled post op appt for tomorrow d/t work. She states that she is doing well with no issues, and requested to follow-up at [facility] appt. Pt phone: [phone] documented in this encounter Plan of Treatment Not on file documented as of this encounter Visit Diagnoses Not on filedocumented in this encounter Care Teams Email Production Consultant Relationship Specialty Start Date End Date Baldomero Dominguez MD PCP - General 01/07/17 Lane Gonzalez MD [address] [facility] [place] [address] Consulting Physician Interventional Cardiology 12/18/21 Pee Villasenor MD [address] [facility] [address] [place] [address] Consulting Physician Obstetrics and Gynecology 12/26/21 documented as of this encounter
--- OUTSIDE RECORDS SUMMARY | 2024-07-11 07:12 | XMS_ITS | Encounter Summary ---
Author Organization [facility] Address [address] [facility] [address] [place] [address] Care Team Providers Care Vocational Teacher Name Role Phone Baldomero Dominguez MD Primary Care Provider [phone] Lane Gonzalez MD Unavailable [phone] Pee Villasenor MD Unavailable [phone] Encounter Details Date Type Department Care Team (Late st Contact Info) Description 06/29/[address] 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 Would like referral to be resubmitted. New referral entered and faxed along with last office note and pathology results. R TAILER * Telephone Encounter - Pee Villasenor MD - 06/29/2022 5:24 PM EDGER TAILER Please R TAILER * Telephone Encounter - Zach Marquez LPN - 06/29/2022 5:03 PM CST FYI - would you like for me to reach out to the pt? R TAILER R TAILER * Telephone Encounter - Julia Mac MA - 06/29/2022 4:29 PM CST Last WWE/OV:05/21/22 Next WWE/OV:none Pt was referred to [facility] PERSONAL COMPUTER NETWORK ENGINEER/ONC for follow up of atypical endometrial hyperplasia. She had an appointment on 06/24/22 but no showed. They are cancelling the referral, ok to reach back out with new referral if patient wants to reschedule. Preferred Communication: My Chart / Phone R TAILER documented in this encounter Plan of Treatment Not on file documented as of this encounter Visit Diagnoses Diagnosis Atypical endometrial hyperplasia- Primary documented in this encounter Care Teams Vocational Teacher Relationship Specialty Start Date End Date Baldomero Dominguez MD PCP - General 01/07/17 Lane Gonzalez MD [address] [facility] [address] [place] [address] Consulting Physician Interventional Cardiology 12/18/21 Pee Villasenor MD [address] [facility] [address] [place] [address] Consulting Physician Obstetrics and Gynecology 12/26/21 documented as of this encounter
--- OUTSIDE RECORDS SUMMARY | 2024-07-11 07:12 | XMS_ITS | Encounter Summary ---
Author Organization [facility] Healthcare Address [address] [place] [address] Care Team Providers Care Fourchette Sewer Name Role Phone Baldomero Dominguez MD Primary Care Provider [phone] Lane Gonzalez MD Unavailable [phone] Pee Villasenor MD Unavailable [phone] Reason for Referral * MRI/CAT/PET Scan (Routine) - Closed Specialty Diagnoses / Procedures Referred By Vianca montiel Referred To Contact Radiology Diagnoses Acute pain of left knee Procedures MRI Knee Arthrogram Left W Contrast Torsten Katz MD [address] [place] [address] Phone: tel: fax: [address] [address] Referral ID Status Reason Start Date Expiration Date Visits Re quested Visits Authorized [id number] Closed 02/24/2022 03/26/2023 1 1 Reason for Visit * MRI/CAT/PET Scan (Routine) - Closed Specialty Diagnoses / Procedures [facility] Referred To Contact Radiology Diagnoses Acute pain of left knee Procedures MRI Knee Arthrogram Left W Contrast Torsten Katz MD [address] [place] [address] Phone: tel: fax: [facility] [address] [place] [address] Referral ID Status Reason Start Date Expiration Date Visits Re quested Visits Authorized [id number] Closed 02/24/2022 03/26/2023 1 1 Encounter Details Date Type Department Care Team (Latest Contact Info) Description 03/31/2022 1:45 PM CDT - 03/31/2022 11:59 PM CDT Hospital Encounter [facility] MRI [address] [place] [address] Acute pain of left knee Discharge Disposition: Discharge to home or self [...] on file 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 Gender Identity Not on file Sexual Orientation Not on file documented as of this encounter Medications at Time of Discharge multivit tevimmsv-oyqw-SW -calcium (THERA-M) 9 mg iron-400 mcg tablet Take 1 tablet by mouth 2 (two) times a day 60 tablet 11 07/17/2020 albuterol HFA (PROVENTIL HFA,VENTOLIN HFA,PROAIR HFA) 90 mcg/actuation inhaler Inhale 1 puff every 6 (six) hours as needed for wheezing 4 cholecalciferol (VITAMIN D-3) 1,000 unit capsule Take 1 capsule (1,000 Units total) by mouth every morning 4 cyanocobalamin (Vitamin B-12) 500 mcg tabletIndication s:Prevention of Vitamin B12 Deficiency Take 1 tablet (500 mcg total) by mouth daily 30 tablet 11 07/18/2020 3 dilTIAZem CD 120 mg 24 hr capsuleIndicatio ns:hypertension, can take up to two times per day, SVT Take 1 capsule (120 mg total) by mouth 2 (two) times a day Patient will start dose 5/4 05/02/2020 3 ferrous sulfate 325 mg (65 mg of elemental iron) tabletIndication s:Iron Deficiency Anemia Take 65 mg of elemental iron by mouth daily with breakfast 2 traMADoL (ULTRAM) 50 mg tablet Take 1 tablet (50 mg total) by mouth 2 (two) times a day as needed for pain 02/13/2020 3 documented as of this encounter Discharge Disposition Disposition Code Departure Means Destination Discharge to home or self care documented in this encounter Plan of Treatment Not on file documented as of this encounter Procedures Procedure Name Priority Date/Time Associated Diagnosis Comments MRI KNEE ARTHROGRAM LEFT W CONTRAST Schedule Routine, Read Routine (OP Routine) 03/31/2022 4:56 PM CDT Acute pain of left knee documented in this encounter Results * MRI Knee Arthrogram Left W Contrast (03/31/2022 4:56 PM CDT) Anatomical Region Laterality Modality Lower Extremities Left Magnetic Reson ance 04/01/2022 7:02 AM CDT Narrative 04/01/2022 7:11 AM CDT EXAM DESCRIPTION: ?? MRI KNEE ARTHROGRAM LEFT W CONTRAST REASON FOR STUDY: ?? left knee pain M25.562 ?? Hx of ground level fall in August. Left knee pain since. Hx of meniscus repair 2-3 years ago. ? TECHNIQUE: Multiplanar, multisequence MRI of the ?? left ??knee was performed after intra-articular administration. ? COMPARISON: ?? 09/19/2021 FINDINGS: In the medial compartment, there is a complex tear of the posterior horn and root with extrusion of the body into the medial gutter. ??There is deep partial and full thickness chondrosis of the medial compartment with peripheral predominant subchondral edema. In the lateral compartment, there is inner margin tearing of the meniscal body. ??There is partial thickness chondrosis of the central weight-bearing femoral condyle and the tibial plateau. In the patellofemoral compartment, there is deep partial and full thickness chondrosis of the trochlea. ??There is matching deep partial and full thickness chondrosis of the patellar median ridge extending into both facets. The cruciate and collateral ligaments are intact. ??The popliteus tendon is normal. ??The extensor mechanism is normal. ??Knee synovitis is present. ??There is a small lobular Lozano cyst. IMPRESSION: Complex tearing of the left medial meniscus posterior horn root junction with mild extrusion of the body into the medial gutter. 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 THIS IS AN ELECTRONICALLY VERIFIED FINAL REPORT 04/01/2022 7:11 AM - Electronically signed by ??Torsten Cisneros M.D. D: ??04/01/2022 7:11 AM T: Report ID: [id number] Reading Location: ??[id number] Procedure Note Torsten Cisneros MD - 04/01/2022 EXAM DESCRIPTION: MRI KNEE ARTHROGRAM LEFT W CONTRAST REASON FOR STUDY: left knee pain M25.562 Hx of ground level fall in August. Left knee pain since. Hx of meniscus repair 2-3 years ago. TECHNIQUE: Multiplanar, multisequence MRI of the left knee wasperformed after intra-articular administration. COMPARISON: 09/19/2021 FINDINGS: In the medial compartment, there is a complex tear of theposterior horn and root with extrusion of the body into the medial gutter. There is deep partial and full thickness chondrosis of the medial compartment with peripheral predominant subchondral edema. In the lateral compartment, there is inner margin tearing of the meniscal body. There is partial thickness chondrosis of the central weight-bearing femoral condyle and the tibial plateau. In the patellofemoral compartment, there is deep partial and fullthickness chondrosis of the trochlea. There is matching deep partial and fullthickness chondrosis of the patellar median ridge extending into both facets. The cruciate and collateral ligaments are intact. The popliteus tendon is normal. The extensor mechanism is normal. Knee synovitis is present.There is a small lobular Lozano cyst. IMPRESSION: Complex tearing of the left medial meniscus posterior horn root junctionwith mild extrusion of the body into the medial gutter. 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 THIS IS AN ELECTRONICALLY VERIFIED FINAL REPORT 04/01/2022 7:11 AM - Electronically signed by Torsten Cisneros M.D. T: Report ID: [id number] Reading Location: [id number] Torsten Katz MD IMG MRI PROCEDURES Final Result documented in this encounter Visit Diagnoses Diagnosis Acute pain of left knee documented in this encounter Administered Medications Inactive Administered Medications - up to 3 most recent administrations Medication Order MAR Action Action Date Dose Rate Site gadoterate meglumine 0.5 mmol/mL injection 1 mL 1 mL, intra-articular, Once in imaging, contrast, Starting on Wed03/31/22 at 1629, For 1 dose Contrast Given 03/31/2022 4:30 PM CDT 1 mL documented in this encounter Orders Medications Ordered That Joaquin ht Not Have Been Administered Count Last Ordered Date First Ordered Date lidocaine PF (XYLOCAINE) 10 mg/mL (1 %) preservative free injection 50 mg 1 03/31/2022 documented in this encounter Care Teams Fourchette Sewer Relationship Specialty Start Date End Date Baldomero Dominguez MD PCP - General 01/07/17 Lane Gonzalez MD [address] [place] [address] Consulting Physician Interventional Cardiology 12/18/21 Pee Villasenor MD [address] [place] [address] Consulting Physician Obstetrics and Gynecology 12/26/21 documented as of this encounter
--- OUTSIDE RECORDS SUMMARY | 2024-07-11 07:12 | XMS_ITS | Encounter Summary ---
Author Organization [facility] Address [address] [facility] [address] [place] [address] Care Team Providers Care Senior Accounting Analyst Name Role Phone Baldomero Dominguez MD Primary Care Provider [phone] Lane Gonzalez MD Unavailable [phone] Pee Villasenor MD Unavailable [phone] Reason for Visit * Reason Comments Discuss corrosion control fitter oncology referral Menopause Pt states she would like to discuss menopause. Hot all the time, feels like she's on fire at night, hot flashes, no sex drive, cranky, etc. Encounter Details Date Type Department Care Team (Late st Contact Info) Description 10/14/2022 11:45 AM CDT Office Visit 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 Subjective/Objective Patient ID: Rowena Quesada is a 57 y.o. female. Chief Complaint Discuss corrosion control fitter oncology referral and Menopause (Pt states she would like to discuss menopause. Hot allthe time, feels like she's on fire at night, hot flashes, no sex drive, cranky, etc. ) HPI: 57-year-old 2, para 2 who presents for follow-up. Was initially referred to the office in November of 2021 for postmenopausal bleeding. Underwent a D&C hysteroscopy with endometrial polypectomy in December showing atypical endometrial hyperplasia. She was referred to corrosion control fitter Oncology for further evaluation and treatment. Multiple no-shows for appointments.Multiple attempts at contacting patient and referring were unsuccessful. No further bleeding. She also states having menopausal symptoms including hot flashes, ???being on fire at night?? no sex drive and ???cranky?? . Review of Systems Constitutional: Negative for activity [...] Constitutional: Appearance: Normal appearance. HENT: Head: Normocephalic. Skin: General: Skin is warm and dry. Neurological: General: No focal deficit present. Mental Status: She is alert and oriented to person, place, and time. Psychiatric: Mood and Affect: Mood normal. Judgment: Judgment normal. 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 Can not stress enough how much she needs to keep her appointment with corrosion control fitter Oncology. Discussed possibility of underlying cancer as well as 30-40% development of cancer if left untreated. She seems to understand and agree. Menopausal symptoms (N95.1) Discussed menopause and post menopause. Would recommend any discussions concerning hormone therapy be tabled until she sees corrosion control fitter Oncology. May want to consider SSRI. *This note is dictated using [employer] voice recognition software, variances in spelling and vocabulary are possible and unintentional* documented in this encounter Plan of Treatment Not on file documented as of this encounter Visit Diagnoses Diagnosis Atypical endometrial hyperplasia- Primary Menopausal symptoms Symptomatic menopausal or female climacteric states documented in this encounter Care Teams Senior Accounting Analyst Relationship Specialty Start Date End Date Baldomero Dominguez MD PCP - General 01/07/17 Lane Gonzalez MD [address] [place] [address] [address] [place] [address] Consulting Physician Interventional Cardiology 12/18/21 Pee Villasenor MD [address] [facility] [address] [place] [address] Consulting Physician Obstetrics and Gynecology 12/26/21 documented as of this encounter
--- OUTSIDE RECORDS SUMMARY | 2024-07-11 07:12 | XMS_ITS | Encounter Summary ---
Author Organization [facility] Address [address] [facility] [place] [address] Care Team Providers Care Java Performance Engineer Name Role Phone Baldomero Dominguez MD Primary Care Provider [phone] Lane Gonzalez MD Unavailable [phone] Pee Villasenor MD Unavailable [phone] Encounter Details Date Type Department Care Team (Late st Contact Info) Description 10/16/2022 Telephone [facility] Obstetrical Gynecology [address] [facility] [address] [place] [phone] Pee Villasenor MD [address] [facility] [address] [address] Social History Tobacco Use Types [...] on file 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 She is wanting to know if she will be getting a call from them or if she needs to call and make the appt. Preferred Communication: Phone documented in this encounter Plan of Treatment Not on file documented as of this encounter Visit Diagnoses Not on filedocumented in this encounter Care Teams Java Performance Engineer Relationship Specialty Start Date End Date Baldomero Dominguez MD PCP - General 01/07/17 Lane Gonzalez MD [address] [facility] [address] [place] [id number] Consulting Physician Interventional Cardiology 12/18/21 Pee Villasenor MD [address] [facility] [address] [place] [address] Consulting Physician Obstetrics and Gynecology 12/26/21 documented as of this encounter
--- OUTSIDE RECORDS SUMMARY | 2024-07-11 07:12 | XMS_ITS | Encounter Summary ---
Author Organization [facility] Address [address] [place] [address] Care Team Providers Care Levers Lace Machine Operator Name Role Phone Baldomero Dominguez MD Primary Care Provider [phone] Lane Gonzalez MD Unavailable [phone] Pee Villasenor MD Unavailable [phone] Reason for Visit * Auth/Cert Specialty Diagnoses / Procedures Referred By Vianca montiel Referred To Contact Diagnoses Abnormal uterine and vaginal bleeding, unspecified Abnormal uterine and vaginal bleeding, unspecified [N93.9] Procedures LA HYSTEROSCOPY,W/ENDO BX HYSTEROSCOPY, DILATION AND CURETTAGE POSSIBLE MYOSURE Referral ID Status Reason Start Date Expiration Date Visits Re quested Visits Authorized [id number] 1 1 Encounter Details Date Type Department Care Team (Latest Contact Info) Description 12/26/2021 5:39 AM CDT - 12/26/2021 10:34 AM CDT Hospital Encounter [address] [address] Pee Villasenor MD [address] [facility] [address] [address] Abnormal uterine and vaginal bleeding, unspecified Discharge Disposition: Discharge to home or self [...] on file 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 Gender Identity Not on file Sexual Orientation Not on file documented as of this encounter Last Filed Vital Signs Vital Sign Reading Time Taken Comments Blood Pressure 135/75 12/26/2021 9:25 AM CDT Pulse 58 12/26/2021 9:25 AM CDT Temperature 36.6 ??C (97.8 ??F) 12/26/2021 8:55 AM CD T Respiratory Rate 16 12/26/2021 9:25 AM CDT Oxygen Saturation 99% 12/26/2021 9:25 AM CDT Inhaled Oxygen Concentration - - Weight - - Height - - Body Mass Index - - documented in this encounter Medications at Time of Discharge multivit cdwxkfxt-wwwk-KX -calcium (THERA-M) 9 mg iron-400 mcg tablet [...] documented in this encounter H&P Notes * Pee Villasenor MD - 12/26/2021 6:29 AM CDT General H&P Subjective Patient is a 56 y.o. female with chief complaint of abnormal uterine bleeding. HPI: 56-year-old 2, para 2 who presents for outpatient surgery States regular periods albeit heavy with passage of clots until recently. Most recent menses was approximately 14 days of heavy bleeding and cramping for which she went to the emergency room. Ultrasound following that visit reveals a possible endometrial polyp versus submucosal fibroid as well as bilateral benign-appearing ovarian cysts States long history of iron deficiency anemia for which she is currently taking supplementation twice daily.. 1. Thickened endometrium measuring up to 1.7 cm, may consider hysteroscopy for further assessment. 2. Hypoechoic endometrial lesion near the fundus 1 cm does have vascular flow suggestive of a true lesion rather than hematoma. This could potentially be an endometrial polyp or submucosal fibroid. This could be correlated with direct inspection. Past Medical History: Diagnosis Date ??? Abnormal uterine and vaginal bleeding, unspecified patient states unsure of last time noted of date ??? Allergic rhinitis ??? Anemia takes iron daily ??? Arthritis ??? Crohn's disease (CMS/HCC) ([facility]) ??? Heart disease ??? Heart murmur ??? Hypertension tx in past lost over 100lbs no medications at this time ??? Joint pain ??? Left knee injury states wears brace occurred at work seeing Dr for injections ??? Morbid obesity (CMS/HCC) ([facility]) ??? Sleep apnea does use cpap ??? Supraventricular tachycardia by ECG (CMS/HCC) (HCC) patient states stopped own on 2 yrs ago medication Past Surgical History: Procedure Laterality Date ??? SECTION ??? CHOLECYSTECTOMY ??? ESOPHAGOGASTRODUODENOSCOPY 03/01/2020 ESOPHAGOGASTRODUODENOSCOPY BIOPSY ??? FUNCTIONAL ENDOSCOPIC SINUS SURGERY ??? 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 KNEE ARTHROSCOPY W/ MENISCAL REPAIR Left 03/01/2020 Medications Prior to Admission Medication Sig Dispense Refill Last Dose ??? cholecalciferol (VITAMIN D-3) 1,000 unit capsule Take 1 tablet by mouth daily 12/19/2021 ??? cyanocobalamin (Vitamin B-12) 500 mcg tablet Take 1 tablet (500 mcg total) by mouth daily 30 tablet 11 12/19/2021 ??? ferrous sulfate 325 mg (65 mg of elemental iron) tablet Take 65 mg of elemental iron by mouth daily with breakfast 12/25/2021 at Unknown time ??? multivit xkjprcyz-oasr-ZY-calcium (THERA-M) 9 mg iron-400 mcg tablet Take 1 tablet by mouth 2 (two) times a day 60 tablet 11 12/19/2021 ??? traMADoL (ULTRAM) 50 mg tablet Take 50 mg by mouth 2 (two) times a day as needed Past Month at Unknown time ??? albuterol HFA (PROVENTIL HFA,VENTOLIN HFA,PROAIR HFA) 90 mcg/actuation inhaler Inhale 1 puff every 6 (six) hours as needed for wheezing (Patient not taking: No sig reported) Unknown at Unknown time ??? dilTIAZem CD 120 mg 24 hr capsule Take 120 mg by mouth nightly (Patient not taking: Reported on12/18/2021) Not Taking at Unknown time Allergies Allergen Reactions ??? Cefaclor Hives Social History Tobacco Use ??? Smoking status: Never Smoker ??? Smokeless tobacco: Never Used Substance Use Topics ??? Alcohol use: Yes Comment: occasional wine Family History Problem Relation Age of Onset ??? Depression Mother ??? Diabetes Mother Family history of diabetes mellitus - (Added by TW Conv) ??? Hypertension Mother Family history of hypertension - (Added by TW Conv) ??? Obesity Mother Overweight - (Added by TW Conv) ??? Cancer Mother Family history of malignant neoplasm - (Added by TW Conv) ??? Stroke Maternal Grandmother ??? Breast cancer Neg Hx ??? Ovarian cancer Neg Hx Review of Systems Objective Vitals: Arrival Vitals [12/26/21 06] Temp 36.2 ??C (97.2 ??F) Pulse Resp BP SpO2 Temp src Heart Rate Source Patient Position BP Location FiO2 (%) 24hr Min/Max: Temp Min: 36.2 ??C (97.2 ??F) Max: 36.2 ??C (97.2 ??F) Most Recent : Vitals: 12/26/21 0610 Temp: 36.2 ??C (97.2 ??F) No intake/output data recorded. No intake/output data recorded. Physical Exam Vitals and nursing note reviewed. Constitutional: Appearance: Normal appearance. Skin: General: Skin is warm and dry. Neurological: General: No focal deficit present. Mental Status: She is alert and oriented to person, place, and time. Psychiatric: Mood and Affect: Mood normal. Judgment: Judgment normal. Lab/Radiology/Diagnostic Review: Assessment Principal Problem: Abnormal uterine and vaginal bleeding, unspecified Plan Reviewed history and ultrasound findings with patient. Would recommend we proceed with a fractionalD&C, hysteroscopy with possible MyoSure secondary to findings of endometrial mass. Risks including but not limited to bleeding, infection, perforation uterus as well as possible need for further surgery secondary to final pathology have been discussed. All questions answered and understood. documented in this encounter Miscellaneous Notes * Op Note - Pee Villasenor MD - 12/26/2021 7:30 AM CDT Patient was brought to the operating room, placed in the dorsal lithotomy position, prepped and draped in the usual sterile fashion. Following adequate level of anesthesia and an appropriate time-out, a bivalve speculum was placed to visualize the cervix which was grasped with a single-tooth tenaculum. Endocervical polyp was noted and removed with polyp forceps. An endocervical curettage was thenperformed using Mikalian curette and sent to pathology along with the polyp. The cervix was then dilated and the uterus sounded to 9 cm. Saline hysteroscopy was then performed with the above findings noted. Photos were taken for documentation. A MyoSure device was inserted with resection of the endometrial polyps performed without difficulty. Contents were sent to pathology under endometrial polyps. The hysteroscope was then removed and a curettage performed with contents sent for endometrial curettings. Once completed the instruments removed, good hemostasis was noted and she was taken recovery room in stable condition. * Brief Op Note - Pee Villasenor MD - 12/26/2021 7:30 AM CDT Operative Progress Note Surgical Team: Surgeon(s) and Role: * Pee Villasenor MD - Primary Anesthesiologist: Robby Paredes DO DINING ROOM CASHIER: Eduardo Ryan CRNA Commercial Energy Auditor: Kellie Vale RN Scrub: Coral Garcia CRNFA Commercial Energy Auditor Second: Jolly Vásquez RN DATE OF SURGERY : 12/26/2021 Preoperative Diagnosis: Pre-op Diagnosis * Abnormal uterine and vaginal bleeding, unspecified [N93.9] Postoperative Diagnosis: Post-op Diagnosis * Abnormal uterine and vaginal bleeding, unspecified [N93.9] Procedure(s): Procedure(s) (LRB): HYSTEROSCOPY, DILATION AND CURETTAGE WITH ENDOMETRIAL POLYPECTOMY MYOSURE (N/A) Operative Findings: Multiple polyps noted to lateral salazar Estimated Blood Loss: 5 mL Intraoperative Fluids: Specimens: ID Type Source Tests Collected by Time A : ENDOCERVICAL CURETTINGS WITH ENDOCERVICAL POLYP Tissue Endocervix, curettage SURGICAL PATHOLOGYPee Villasenor MD 12/26/2021 4733 B : ENDOMETRIAL CURETTINGS Tissue Endometrial curettings SURGICAL PATHOLOGY Pee Villasenor MD 12/26/2021 0751 C : ENDOMETRIAL POLYP Tissue Polyp (s), Cervical / Endometrial SURGICAL PATHOLOGY Nicholas Villasenor MD 12/26/2021 075 Implants: Nothing was implanted during the procedure Blood/Blood Products Transfused: Complications: None Condition on Discharge from the operating room was stable Pee Villasenor MD Date: 12/26/2021 Time: 8:13 AM No * Perioperative Nursing Note - Ciera Thrasher RN - 12/18/2021 10:43 AM CDT Patient's phone assessment completed pre procedure instructions reviewed with and copy in my chart.Patient voiced understanding of. Patient is doing covid swab on 12/23/21 wanting to do throat swab states has sensitive nose will bleed informed needs to contact Dr Villasenor's office they put covid swab in. Also states is getting gel injections in the left knee was work injury and wears a brace asked if issues with surgery informed patient she needs to let Dr Villasenor's office know that also. Patient states stopped herself over two years ago Cardizem medication at times will notice increased heart rates . When asked about heart disease dx she denied any cardiac cath in past, was unsure of dx s tates sees Dr Gonzalez. * Pre-Procedure Instructions - Ciera Thrasher RN - 12/18/2021 10:39 AM CDT Images from the original note were not included. [address] [address] Surgery Reminder Checklist: Please arrive to [facility]'s Outpatient Surgery Department for scheduled surgeryon 12/26/21 arrive at 5:30 am. If the surgeon's office tells you to arrive at a different time, please follow their instructions. Please use Entrance A also known as [facility], then follow the signs to the right for Outpatient Surgery. DO NOT eat or drink after midnight (this includes gum, mints, hard candy, and chewable antacids). NO MEDICATIONS MORNING OF SURGERY DO NOT drink alcohol, smoke cigarettes/vapes/e-cigarettes during the 12 hours prior to your surgery. DO NOT use marijuana or take illicit/illegal drugs of any kind at least 24 hours prior to surgery. NO ASPIRIN CONTAINING PRODUCTS, IBUPROFEN, ALEVE, MULTIVITAMINS, HERBAL SUPPLEMENTS, FISH OIL, or VITAMIN E. (stop on Wednesday12/19/21) Vitamin D 3, Multiple Vitamin, Vitamin B 12. May take TYLENOL (ACETAMINOPHEN) as needed for pain. [place] your teeth morning of procedure. Use mouth wash if available. Do not swallow any liquids whencleansing your mouth. Shower with Antibacterial soap morning of. Antibacterial Soap Examples: Dial or Safeguard. After showering, do not apply any lotions, colognes, oils, deodorant, powder, or make-up. VISITOR POLICY: Patients in outpatient/surgical settings may have 2 dedicated visitors; children 12and older may be permitted as one of the 2 visitors, provided they are accompanied by a caregiver as the second visitor. Children can not be left unattended in the hospital setting. BRING ANY NEW PRESCRIPTIONS THAT WERE NOT REVIEWED AT PRE-TESTING/DURING SCREENING CALL. Bring pictures of medications, bring your photo ID card and insurance card & covid vaccine card to be scanned in system. Expect to remove wigs, dentures/partials, contact lenses, piercings, hearing aids, and prostheses before surgery. Do not wear jewelry to the hospital on the day of surgery. Arrange for a friend or family member to pick you up from the hospital, drive you home, and assist you if necessary. You will not be allowed to drive home. NO non-medical transport services (buses, taxis, etc.) allowed. A responsible adult must be with you for 24 hours after your procedure. Call your surgeon if you develop a rash, fever, cold, or any other signs/symptoms of infection prior to surgery. COVID-19 SWAB: You must be swabbed for COVID-19 on 12/23/21Wednesday.. The Specimen collection site is located at [facility] - [address] [facility] in [place], [place]. Please use Entrance A. Turn to the Left once you enter through the sliding glass doors and go to Admission and Testing Center. Operating hours are Wednesday through Wednesday 8 am till 4 pm. Closed on Wednesday and Wednesday. You will be required to quarantine at home immediately after being swabbed until the day of surgery. This includes no errands or contact with others that live outside your household. This is to ensure that you do not get any new possible COVID exposure prior to entering the hospital. Your procedurecan be cancelled if you do not follow these guidelines. Any questions/concerns, please call the Admission Testing Center at [phone]. documented in this encounter Plan of Treatment Not on file documented as of this encounter Procedures Procedure Name Priority Date/Time Associated Diagnosis Comments SURGICAL PATHOLOGY Routine 12/26/2021 8: 41 AM CDT Abnormal uterine and vaginal bleeding, unspecified ABLATION UTERINE - MYOSURE 12/26/2021 7:13 AM CDT Abnormal uterine and vaginal bleeding, unspecified POCT HCG, URINE Routine 12/26/2021 6:16 AM CDT POC BLOOD GAS AND CHEMISTRIES, VENOUS Routine 12/26/2021 6:05 AM CDT documented in this encounter Results * Surgical pathology (12/26/2021 8:41 AM CDT) Tissue (Endocervix, curettage) 12/26/2021 7:48 AM CDT Tissue (Endometrial curettings) 12/26/2021 7:56 AM CDT Tissue (Polyp (s), Cervical / Endometrial) 12/26/2021 7:57 AM CDT Narrative PATHOLOGY [facility] - 12/29/2021 12:14 PM CDT [facility] Department of Pathology [address] [place] [address] ?? Note to Patients: ??This report may contain a detailed description of human tissue sent by a health care provider to the laboratory for pathologic evaluation. ??The content of this report is essential for diagnosis and may provide important critical findings. ??This information may be unfamiliar to patients to review without a medical professional present. ?? It is advised that the patient review this report in the presence of a health care provider who can answer questions and explain the details. Final Report Patient Name: ROWENA STEVENS : ??1965 (Age: 56) Gender: ??F Address: ??[address] [place], [place] [address] [facility] #: [id number] Service: Surgery Location: Patient Type: [facility] OUTPATIENT ? 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 John Rhoades DO Report Electronically Reviewed and Signed Out By ??John Rhoades DO 12/29/2021 12:14:03 Specimen(s) Received: A: Endocervical curettings with endocervical polyp B: Endometrial curettings C: Endometrial polyp Microscopic Description: Microscopic examination substantiates the above cited diagnosis. Clinical History: Abnormal uterine and vaginal bleeding Gross Description A) The specimen container is labeled with the patient's name and endocervical curettings with endocervical polyp . ??Received in formalin are multiple strands of pink mucoid material and soft polanco tissue which measure 2.2 x 1.7 x 0.3 cm in aggregate. ??The specimen is filtered and submitted entirely in cassette A1. B) The specimen container is labeled with the patient's name and endometrial curettings . ??Received in formalin are multiple fragments of soft purple coagulum which measure 4.0 x 3.7 x 0.9 cm in aggregate. ??The specimen is filtered and submitted entirely in cassettes B1B4. C) The specimen container is labeled with the patient's name and endometrial polyp . ??Received in formalin are multiple fragments of soft polanco tissue which measure 1.7 x 1.2 x 0.3 cm in aggregate. ??The specimen is filtered and submitted entirely in cassette C1. evie/12/26/2021 11:57 ??JOSAFAT Andino Pee Villasenor MD LAB PATHOLOGY ORDERABLE S Final Result PATHOLOGY [facility] * POCT hCG, urine (12/26/2021 6:16 AM CDT) [facility] HCG, ur, POC Negative Lot Number [id number] QC Backgroud Clear Acceptable QC Control Line Acceptable Urine 12/26/2021 6:16 AM CDT Pee Villasenor MD POINT OF CARE TEST ORDE RABLES Final Result * (ABNORMAL) POC Blood Gas and Chemistries, Venous - (12/26/2021 6:05 AM CDT) [facility] pH,kristine POC 7.35 7.32 - 7.43 [facility] pCO2, kristine POC 58(H) 40 - 50 mmHg [facility] pO2,kristine POC 22 mmHg [facility] Comment: Interpretive Data No reference range established. Current interpretive data was last revised 2020. HCO3, kristine (Calc) POC 32(H) 20 - 30 mmol/L [facility] Base excess, kristine POC 5 mmol/L [facility] Comment: Interpretive Data No reference range established. Current interpretive data was last revised 2020. Hemoglobin, kristine POC 13.6 11.9 - 15.5 g/dL [facility] Hematocrit, kristine POC 40.0 35.6 - 45.5 % [facility] Sodium, kristine POC 141 135 - 145 mmol/L [facility] Potassium, kristine POC 3.9 3.3 - 4.9 mmol/L [facility] Comment: Interpretive Data Unable to assess hemolysis, Invitro hemolysis causes falsely elevated potassium. Current interpretive data was last revised on 2020. Glucose, kristine POC 94 70 - 199 mg/dL [facility] Ionized Calcium, kristine POC 5.10 4.50 - 5.20 mg/dL [facility] Blood 12/26/2021 6:05 AM CDT 12/26/2021 6:05 AM CDT Pee Villasenor MD LAB POCT ORDERABLES - D YOLANDAICE Final Result [facility] [address] [facility] Department [place] [address] documented in this encounter Visit Diagnoses Diagnosis Abnormal uterine and vaginal bleeding, unspecified- Primary documented in this encounter Admitting Diagnoses Diagnosis Abnormal uterine and vaginal bleeding, unspecified documented in this encounter Administered Medications Inactive Administered Medications - up to 3 most recent administrations Medication Order MAR Action Action Date Dose Rate Site acetaminophen (TYLENOL) tablet 975 mg 975 mg (rounded from 1,000 mg), oral, Once, On Wed12/26/21 at 0630, For 1 dose, Pre-Op, Indications: Pre-Emptive AnalgesiaIndications:Pre-Emptiv e Analgesia Given 12/26/2021 6:23 AM CDT 975 mg famotidine (PEPCID) tablet 20 mg 20 mg, oral, Once, On Wed12/26/21 at 0630, For 1 dose, Pre-Op, Indications: gastroesophageal reflux diseaseIndications:gastroesopha geal reflux disease Given 12/26/2021 6:22 AM CDT 20 mg ketorolac (TORADOL) 30 mg/mL (1 mL) injection 30 mg 30 mg, intravenous, Once, On Wed12/26/21 at 0900, For 1 dose, Phase I, Indications: PainIndications:Pain Given 12/26/2021 8:32 AM CDT 30 mg Lactated Ringer's (LR) infusion 30 mL/hr, intravenous, Continuous, Starting on Wed12/26/21 at 0630, Pre-Op New Bag 12/26/2021 8:55 AM CDT 30 mL/hr 30 mL/hr Restarted 12/26/2021 7:28 AM CDT New Bag 12/26/2021 6:19 AM CDT 30 mL/hr 30 mL/hr sodium chloride 0.9% flush 0.5-20 mL 0.5-20 mL, intra-catheter, As needed, line care, Starting on Wed12/26/21 at 0551, Pre-Op, Flush volume based on line type and size. Flush before and after each use. sodium chloride 0.9% flush 0.5-20 mL 0.5-20 mL, intra-catheter, As needed, line care, Starting on Wed12/26/21 at 0551, Pre-Op, Flush volume based on line type and size. Flush before and after each use. documented in this encounter Historical Medications * This list may reflect changes made after this encounter. ferrous sulfate 325 mg (65 mg of elemental iron) tabletIndication s:Iron Deficiency Anemia Take 65 mg of elemental iron by mouth daily with breakfast 2 added in this encounter Active and Recently Administered Medications Times are shown in CDT. Scheduled Medication Order 12/24/2021 12/25/2021 12/26/2021 acetaminophen (TYLENOL) tablet 975 mg (COMPLETED) 975 mg (rounded from 1,000 mg), oral, Once, On Wed12/26/21 at 0630, For 1 dose, Pre-Op, Indications: Pre-Emptive Analgesia 0623 (Given - Provid er: Shauna Caputo RN) famotidine (PEPCID) tablet 20 mg (COMPLETED) 20 mg, oral, Once, On Wed12/26/21 at 0630, For 1 dose, Pre-Op, Indications: gastroesophageal reflux disease 0622 (Given - Provid er: Shauna Caputo RN) ketorolac (TORADOL) 30 mg/mL (1 mL) injection 30 mg (COMPLETED) 30 mg, intravenous, Once, On Wed12/26/21 at 0900, For 1 dose, Phase I, Indications: Pain 0832 (Given - Provid er: Radha Solomon RN) Continuous Medication Order 12/24/2021 12/25/2021 12/26/2021 Lactated Ringer's (LR) infusion 30 mL/hr, intravenous, Continuous, Starting on Wed12/26/21 at 0630, Pre-Op 0619 (New Bag - Prov ider: Shauna Caputo RN)0727 (Paused - Provider: Eduardo Ryan CRNA - Comment: Switch to gravity)07 (Restarted - Provider: Eduardo Ryan CRNA)0813 (Anesthesia Volume Adjustment - Provider: Eduardo Ryan CRNA)0855 (New Bag - Provider: Bernadette Deleon RN)1436 (Due: Stopped) Lactated Ringer's (LR) infusion 125 mL/hr, intravenous, Continuous, Starting on Wed12/26/21 at 0900, Phase I, 08 (Canceled Entry - Provider: Bernadette Deleon, JENNIFER) PRN Medication Order 12/24/2021 12/25/2021 12/26/2021 diphenhydrAMINE (BENADRYL) injection 12.5 mg 12.5 mg, intravenous, Every 15 min PRN, itching, Starting on Wed12/26/21 at 0819, For 2 doses, Phase I, Max cumulative dose 50 mg., Indications: Itching fentaNYL (SUBLIMAZE) preservative free injection 50 mcg 50 mcg, intravenous, Once as needed, uncontrolled pain on PACU admission, Starting on Wed12/26/21 at 0828, For 1 dose, Phase I, Then proceed to PACU 1st line analgesic., Indications: Pain fentaNYL (SUBLIMAZE) preservative free injection 50 mcg 50 mcg, intravenous, Once as needed, breakthrough pain, Starting on Wed12/26/21 at 0828, For 1 dose, Phase I, Administer for uncontrolled or increasing pain while in PACU only. Then proceed to PACU 1st line analgesic., Indications: Pain hydrALAZINE (APRESOLINE) injection 5 mg 5 mg, intravenous, Administer over 2 Minutes, Every 15 min PRN, high blood pressure, Starting on Wed12/26/21 at 0819, Phase I, Max cumulative dose 20 mg. Dose if systolic BP greater than 180 AND heart rate less than 70., Indications: hypertension HYDROmorphone (DILAUDID) injection 0.2 mg 0.2 mg, intravenous, Administer over 2 Minutes, Every 10 min PRN, 1st line for pain, Starting on Wed12/26/21 at 0828, Phase I, Switch to 2nd line analgesic order if pain is uncontrolled or increasing after 2 doses. Notify Anesthesiologist if total PACU dose reaches 2 mg and pain score 5/10 or more., Indications: Pain HYDROmorphone (DILAUDID) injection 0.4 mg 0.4 mg, intravenous, Administer over 2 Minutes, Every 10 min PRN, 2nd line for pain, Starting on Wed12/26/21 at 0828, Phase I, May administer 10 mintes after 2nd dose of 1st line analgesic agent for uncontrolled or increasing pain. Revert to 1st line dose if POSS of 3. Notify Anesthesiologist if total PACU dose reaches 2 mg and pain score 5/10 or more., Indications: Pain labetaloL (NORMODYNE,TRANDATE) injection 5 mg 5 mg, intravenous, at 30 mL/hr, Administer over 2 Minutes, Every 10 min PRN, high blood pressure, Starting on Wed12/26/21 at 0819, Phase I, Max cumulative dose 20 mg. Dose if systolic blood pressure greater than 180 AND HR greater than 70. metoclopramide (REGLAN) injection 10 mg 10 mg, intravenous, Once as needed, nausea, vomiting, Starting on Wed12/26/21 at 0819, For 1 dose, Phase I, If nausea/vomiting not relieved by ondansetron within 30 minutes or if ondansetron has been given within the last 6 hours. naloxone (NARCAN) 0.4 mg/mL injection 0.04-0.4 mg 0.04-0.4 mg, intravenous, Once as needed, other, excessive sedation/respiratory depression, Starting on Wed12/26/21 at 0819, For 1 dose, Phase I, Dilute 0.4 mg with 9 mL NS (final concentration 0.04 mg/mL). For respiratory depression (respiratory rate less than 6), administer 0.4 mg IVP over 30 seconds. For excessive sedation administer 0.04 mg (1 mL) every 1 minute until desired level of alertness. For IV, administer over 30 seconds., Indications: Opioid Toxicity ondansetron (ZOFRAN) injection 4 mg 4 mg, intravenous, Administer over 2 Minutes, Once as needed, nausea, vomiting, Starting on Wed12/26/21 at 0819, For 1 dose, Phase I, Proceed to metoclopramide if ondansetron has been given within the last 6 hours. sodium chloride 0.9% flush 0.5-20 mL 0.5-20 mL, intra-catheter, As needed, line care, Starting on Wed12/26/21 at 0551, Pre-Op, Flush volume based on line type and size. Flush before and after each use. sodium chloride 0.9% flush 0.5-20 mL 0.5-20 mL, intra-catheter, As needed, line care, Starting on Wed12/26/21 at 0551, Pre-Op, Flush volume based on line type and size. Flush before and after each use. documented in this encounter Orders Medications Ordered That Joaquin ht Not Have Been Administered Count Last Ordered Date First Ordered Date diphenhydrAMINE (BENADRYL) i njection 12.5 mg 1 12/26/2021 fentaNYL (SUBLIMAZE) preserv ative free injection 50 mcg 2 12/26/2021 hydrALAZINE (APRESOLINE) injection 5 mg 1 0 12/26/2021 HYDROmorphone (DILAUDID) injection 0.2 mg 1 12/26/2021 HYDROmorphone (DILAUDID) injection 0.4 mg 1 12/26/2021 labetaloL (NORMODYNE,TRANDAT E) injection 5 mg 1 12/26/2021 Lactated Ringer's (LR) infusion 1 metoclopramide (REGLAN) injection 10 mg 1 0 12/26/2021 naloxone (NARCAN) 0.4 mg/mL injection 0.04-0.4 mg 1 12/26/2021 ondansetron (ZOFRAN) injection 4 mg 1 12/26 sodium chloride 0.9% flush 0.5-20 mL 2 09/2021 Diet Count Last Ordered Date First Orde red Date ADULT DISCHARGE DIET 1 12/26/2021 Nursing Count Last Ordered Date First Orde red Date ACTIVITY 2 12/26/2021 DISCHARGE CALL PROVIDER 1 12/26/2021 DISCHARGE INSTRUCTIONS 1 12/26/2021 FOLLOW UP WITH ESTABLISHED PROVIDER 1 12/26 NURSING COMMUNICATION 2 12/26/2021 PATIENT MAY SHOWER 1 12/26/2021 Discharge Count Last Ordered Date First Orde red Date DISCHARGE PATIENT 1 12/26/2021 documented in this encounter Care Teams Levers Lace Machine Operator Relationship Specialty Start Date End Date Baldomero Dominguez MD PCP - General 01/07/17 Lane Gonzalez MD [address] [facility] [address] [place] [address] [place] [address] Consulting Physician Interventional Cardiology 12/18/21 Pee Villasenor MD [address] [place] [address] [place] [address] Consulting Physician Obstetrics and Gynecology 12/26/21 documented as of this encounter
--- OUTSIDE RECORDS SUMMARY | 2024-07-11 07:12 | XMS_ITS | Encounter Summary ---
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 GER CLINICAL APPLICATIONS documented in this encounter Plan of Treatment Not on file documented as of this encounter Visit Diagnoses Not on filedocumented in this encounter Care Teams Adjunct Political Science Instructor Relationship Specialty Start Date End Date Baldomero Dominguez MD PCP - General 01/07/17 Lane Gonzalez MD [address] [facility] [address] [place] [address] [place] [address] Consulting Physician Interventional Cardiology 12/18/21 Pee Villasenor MD [address] [facility] [address] [place] [address] [place] [address] Consulting Physician Obstetrics and Gynecology 12/26/21 documented as of this encounter
--- OUTSIDE RECORDS SUMMARY | 2024-07-11 07:12 | XMS_ITS | Encounter Summary ---
Author Organization [facility] Healthcare Address [address] [place] [address] Care Team Providers Care Rn Transfer Name Role Phone Baldomero Dominguez MD Primary Care Provider [phone] Lane Gonzalez MD Unavailable [phone] Pee Villasenor MD Unavailable [phone] Reason for Referral * Diagnostic Imaging (Routine) - Closed Specialty Diagnoses / Procedures Referred By Vianca montiel Referred To Contact Diagnoses Acute pain of left knee Procedures Injection Knee Left Arthro Only Torsten Katz MD [address] [facility] [address] [place] [address] Phone: tel: fax: [address] [address] Referral ID Status Reason Start Date Expiration Date Visits Re quested Visits Authorized [id number] Closed 02/24/2022 03/26/2023 1 1 Reason for Visit * Diagnostic Imaging (Routine) - Closed Specialty Diagnoses / Procedures Referred By Contac t Referred To Contact Diagnoses Acute pain of left knee Procedures Injection Knee Left Arthro Only Torsten Katz MD [address] [facility] [address] [place] [address] Phone: tel: fax: [address] [address] Referral ID Status Reason Start Date Expiration Date Visits Re quested Visits Authorized [id number] Closed 02/24/2022 03/26/2023 1 1 Encounter Details Date Type Department Care Team (Latest Contact Info) Description 03/31/2022 1:00 PM CDT - 03/31/2022 1:44 PM CDT Hospital Encounter [facility] [address] [place] [id number] Acute pain of left knee Discharge [...] on file 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 Gender Identity Not on file Sexual Orientation Not on file documented as of this encounter Medications at Time of Discharge multivit ltuqwfko-xgrn-UT -calcium (THERA-M) 9 mg iron-400 mcg tablet [...] Procedure Name Priority Date/Time Associated Diagnosis Comments INJECTION KNEE LEFT ARTHRO ONLY Schedule Routine, Read Routine (OP Routine) 03/31/2022 4:00 PM CDT Acute pain of left knee documented in this encounter Results * Injection Knee Left Arthro Only (03/31/2022 4:00 PM CDT) Anatomical Region Laterality Modality Knee Left Computed Radiogr aphy, Computed Radiography 04/01/2022 9:54 AM CDT Narrative 04/01/2022 10:01 AM CDT EXAM DESCRIPTION: ?? INJECTION KNEE LEFT ARTHRO ONLY REASON FOR STUDY: ?? Left knee pain. ??History of meniscal repair. COMPARISON: ?? None available FLUOROSCOPY TIME: Fluoroscopy time: ??3.3 minutes Number of images: ??6 TECHNIQUE: Digital images acquired during fluoroscopy and stored on PACS. ?? Patient immediately taken to the MR suite for additional imaging. Needle placement was documented with fluoroscopic images. 40 mL of a mixture containing 1:200 gadolinium was injected. ? PROCEDURE: Procedure, risks, benefits and alternatives explained to patient who then gave written consent. The ?? left ??knee was marked and a time-out was called for correct marking verification. ??Entry site marked using fluoroscopic guidance. Knee prepped and draped using sterile technique. ??Local anesthesia achieved using 1% lidocaine injection. ??Hypodermic needle introduced into the joint space under direct fluoroscopic visualization. Non-ionic contrast instilled to confirm intra-articular position. Dilute gadolinium solution then injected. ??Needle removed and entry site covered with sterile bandage. No immediate complications noted. IMPRESSION: Successful needle placement and injection for ?? left ??knee MR arthrogram. THIS IS AN ELECTRONICALLY VERIFIED FINAL REPORT 04/01/2022 10:01 AM - Electronically signed by ??Warner ROSAS D: ??04/01/2022 10:01 AM T: Report ID: [id number] Reading Location: ??[id number] Procedure Note Warner Magdaleno MD - 04/01/2022 EXAM DESCRIPTION: INJECTION KNEE LEFT ARTHRO ONLY REASON FOR STUDY: Left knee pain. History of meniscal repair. COMPARISON: None available FLUOROSCOPY TIME: Fluoroscopy time: 3.3 minutes Number of images: 6 TECHNIQUE: Digital images acquired during fluoroscopy and stored on PACS. Patient immediately taken to the MR suite for additional imaging. Needle placement was documented with fluoroscopic images. 40 mL of a mixture containing 1:200 gadolinium was injected. PROCEDURE: Procedure, risks, benefits and alternatives explained topatient who then gave written consent. The left knee was marked and a time-outwas called for correct marking verification. Entry site marked usingfluoroscopic guidance. Knee prepped and draped using sterile technique. Localanesthesia achieved using 1% lidocaine injection. Hypodermic needle introduced intothe joint space under direct fluoroscopic visualization. Non-ionic contrast instilled to confirm intra-articular position. Dilute gadolinium solutionthen injected. Needle removed and entry site covered with sterile bandage. No immediate complications noted. IMPRESSION: Successful needle placement and injection for left knee MR arthrogram. THIS IS AN ELECTRONICALLY VERIFIED FINAL REPORT 04/01/2022 10:01 AM - Electronically signed by Warner ROSAS T: Report ID: [id number] Reading Location: [id number] us Torsten Katz MD IMG XR PROCEDURES Final R esult documented in this encounter Visit Diagnoses Diagnosis Acute pain of left knee documented in this encounter Administered Medications Inactive Administered Medications - up to 3 most recent administrations Medication Order MAR Action Action Date Dose Rate Site bupivacaine (MARCAINE) 0.25 % (2.5 mg/mL) preservative free injection 75 mg 75 mg (30 mL), intra-articular, Once, On Wed03/31/22 at 1800, For 1 dose Given 03/31/2022 5:30 PM CDT 10 mL ioversoL (OPTIRAY 300) solution 50 mL 50 mL, intra-articular, Once in imaging, contrast, Starting on Wed03/31/22 at 1721, For 1 dose Contrast Given 03/31/2022 5:34 PM CDT 10 mL lidocaine (XYLOCAINE) 10 mg/mL (1 %) injection 50 mg 50 mg (5 mL), subcutaneous, Once, On Wed03/31/22 at 1800, For 1 dose, Indications: Administration of Local AnesthesiaIndications:Admi nistration of Local Anesthesia Given 03/31/2022 5:29 PM CDT 5 mg Other (Comment) sodium chloride 0.9% solution 10 mL 10 mL, intra-articular, Once, On Wed03/31/22 at 1815, For 1 dose Given 03/31/2022 5:34 PM CDT 15 mL documented in this encounter Orders Medications Ordered That Joaquin ht Not Have Been Administered Count Last Ordered Date First Ordered Date lidocaine (XYLOCAINE) 10 mg/ mL (1 %) injection 50 mg 1 03/31/2022 sodium chloride 0.9% solution 10 mL 1 03/31 documented in this encounter Care Teams Rn Transfer Relationship Specialty Start Date End Date Baldomero Dominguez MD PCP - General 01/07/17 Lane Gonzalez MD [facility] [facility] [address] [place] [address] [place] [address] Consulting Physician Interventional Cardiology 12/18/21 Pee Villasenor MD [address] [facility] [place] [address] Consulting Physician Obstetrics and Gynecology 12/26/21 documented as of this encounter
--- OUTSIDE RECORDS SUMMARY | 2024-07-11 07:12 | XMS_ITS | Encounter Summary ---
Author Organization [facility] Address [address] [place] [address] Care Team Providers Care Loin Trimmer Name Role Phone Baldomero Dominguez MD Primary Care Provider Lane Gonzalez MD Unavailable [phone] ePe Villasenor MD Unavailable [phone] Reason for Visit * Auth/Cert Specialty Diagnoses / Procedures Referred By Vianca montiel Referred To Contact Diagnoses Abnormal uterine and vaginal bleeding, unspecified Abnormal uterine and vaginal bleeding, unspecified [N93.9] Procedures CO HYSTEROSCOPY,W/ENDO BX HYSTEROSCOPY, DILATION AND CURETTAGE POSSIBLE MYOSURE Referral ID Status Reason Start Date Expiration Date Visits Re quested Visits Authorized [id number] 1 1 Encounter Details Date Type Department Care Team (Late st Contact Info) Description 12/26/2021 7:30 AM CDT - 12/26/2021 8:45 AM CDT Surgery [address] [address] Pee Villasenor MD [address] [facility] [address] [address] HYSTEROSCOPY, DILATION AND CURETTAGE WITH ENDOMETRIAL POLYPECTOMY MYOSURE Surgery Details Date/Time Status Location OR Service Patient Class Case Class Case Type Trauma Case? 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 Gender Identity Not on file Sexual Orientation Not on file documented as of this encounter Last Filed Vital Signs Vital Sign Reading Time Taken Comments Blood Pressure 136/75 12/26/2021 8:40 AM CDT Pulse 55 12/26/2021 8:40 AM CDT Temperature 36.4 ??C (97.6 ??F) 12/26/2021 8:40 AM CD T Respiratory Rate 16 12/26/2021 8:40 AM CDT Oxygen Saturation 99% 12/26/2021 8:40 AM CDT Inhaled Oxygen Concentration - - Weight - - Height - - Body Mass Index - - documented in this encounter Medications at Time of Discharge multivit psvbbzgs-rvwi-ID -calcium (THERA-M) 9 mg iron-400 mcg tablet [...] Dr for injections ??? Morbid obesity (CMS/HCC) (HCC) ??? Sleep apnea does use cpap [...] breakfast 12/25/2021 at Unknown time ??? multivit ipaoeuqn-glfy-TE-calcium (THERA-M) 9 mg iron-400 mcg tablet Take [...] ??C (97.2 ??F) Most Recent : Vitals: 12/26/21609 Temp: 36.2 ??C (97.2 ??F) No intake/output [...] forceps. An endocervical curettage was thenperformed using Kevorkian curette and sent to pathology along with [...] MD - Primary Anesthesiologist: Robby Paredes DO PETROLEUM ANALYST: Eduardo Ryan CRNA Dry Color Tester: Kellie Vale RN Scrub: Coral Garcia CRNFA Dry Color Tester Second: Jolly Vásquez RN DATE OF SURGERY [...] WITH ENDOCERVICAL POLYP Tissue Endocervix, curettage SURGICAL PATHOLOGYChaPee robertson, MD 12/26/2021 0748 B : ENDOMETRIAL CURETTINGS Tissue Endometrial curettings SURGICAL PATHOLOGY Pee Villasenor MD 12/26/2021 0756 C : ENDOMETRIAL POLYP Tissue Polyp (s), Cervical / Endometrial SURGICAL PATHOLOGY Nicholas Villasenor MD 12/26/2021 0757 Implants: Nothing was implanted during the procedure [...] from the original note were not included. [address] [address] Surgery Reminder Checklist: Please arrive to [facility] Outpatient Surgery Department for scheduled surgeryon 12/26/21 [...] take TYLENOL (ACETAMINOPHEN) as needed for pain. [place] your teeth morning of procedure. Use mouth [...] The Specimen collection site is located at [facility] - [address] [place] [address] in [place], [place]. Please use Entrance A. Turn to [...] please call the Admission Testing Center at [phone]. documented in this encounter Plan of Treatment [...] Endometrial) 12/26/2021 7:57 AM CDT Narrative PATHOLOGY [facility] - 12/29/2021 12:14 PM CDT [facility] Department of Pathology [address] [place] [address] ?? Note to Patients: ??This report may [...] ??1965 (Age: 56) Gender: ??F Address: ??[address] [place] [address] [facility] #: [id number] Service: Surgery Location: Patient Type: [facility] OUTPATIENT ? Taken: 12/26/2021 Received: 12/26/2021 Accessioned: [...] filtered and submitted entirely in cassette C1. evei/12/26/2021 11:57 ??JOSAFAT Andino Pee Villasenor MD LAB PATHOLOGY ORDERABLE S Final Result PATHOLOGY [facility] * POCT hCG, urine (12/26/2021 6:16 AM CDT) HCG, ur, POC Negative Lot Number [id number] QC Backgroud Clear Acceptable QC Control Line Acceptable Urine 12/26/2021 6:16 AM CDT Pee Villasenor MD POINT OF CARE TEST ORDE RABRADHA Final Result * (ABNORMAL) POC Blood Gas and Chemistries, Venous - (12/26/2021 6:05 AM CDT) pH,kristine POC 7.35 7.32 - 7.43 ALICIA pCO2, kristine POC 58(H) 40 - 50 mmHg ALICIA pO2,kristine POC 22 mmHg [facility] Comment: Interpretive Data No reference range established. Current interpretive data was last revised 2020. HCO3, kristine (Calc) POC 32(H) 20 - 30 mmol/L ALICIA Base excess, kristine POC 5 mmol/L [facility] Comment: Interpretive Data No reference range established. Current interpretive data was last revised 2020. Hemoglobin, kristine POC 13.6 11.9 - 15.5 g/dL [facility] Hematocrit, kristine POC 40.0 35.6 - 45.5 % [facility] Sodium, kristine POC 141 135 - 145 mmol/L [facility] Potassium, kristine POC 3.9 3.3 - 4.9 mmol/L [facility] Comment: Interpretive Data Unable to assess hemolysis, Invitro hemolysis causes falsely elevated potassium. Current interpretive data was last revised on 2020. Glucose, kristine POC 94 70 - 199 mg/dL [facility] Ionized Calcium, kristine POC 5.10 4.50 - 5.20 mg/dL [facility] Blood 12/26/2021 6:05 AM CDT 12/26/2021 6:05 AM CDT Pee Villasenor MD LAB POCT ORDERABLES - D EVICE Final Result Performing Organization Address City/State/[facility] Co de Phone Number [facility] [address] [facility] Department [place] [address] documented in this encounter Visit Diagnoses Diagnosis Abnormal uterine and vaginal bleeding, unspecified- Primary Abnormal uterine and vaginal bleeding, unspecified documented in this encounter Admitting Diagnoses Diagnosis [...] For 1 dose, Pre-Op, Indications: Pre-Emptive Analgesia 06 (Given - Provid er: Shauna Caputo RN) famotidine (PEPCID) tablet 20 mg (COMPLETED) 20 mg, oral, Once, On Wed12/26/21 at 0630, For 1 dose, Pre-Op, Indications: gastroesophageal reflux disease 06 (Given - Provid er: Shauna Caputo RN) [...] Eduardo Ryan CRNA - Comment: Switch to gravity)0728 (Restarted - Provider: Eduardo Ryan CRNA)0813 (Anesthesia Volume Adjustment - Provider: Eduardo Ryan CRNA)0855 (New Bag - Provider: Bernadette Deleon RN)1436 (Due: Stopped) Lactated Ringer's (LR) infusion 125 mL/hr, intravenous, Continuous, Starting on Wed12/26/21 at 0900, Phase I, 0855 (Canceled Entry - Provider: Bernadette Deleon RN) PRN Medication Order 12/24/2021 12/25/2021 12/26/2021 diphenhydrAMINE [...] line for pain, Starting on Wed12/26/21 at 08, Phase I, May administer 10 mintes after [...] 1 12/26/2021 Lactated Ringer's (LR) infusion 1 2 metoclopramide (REGLAN) injection 10 mg 1 0 [...] 12/26/2021 documented in this encounter Care Teams Loin Trimmer Relationship Specialty Start Date End Date Baldomero Dominguez MD PCP - General 01/07/17 Lane Gonzalez MD [address] [facility] [address] [place] [address] [place] [address] Consulting Physician Interventional Cardiology 12/18/21 Pee Villasenor MD [address] [facility] [address] [place] [address] [place] [address] Consulting Physician Obstetrics and Gynecology 12/26/21 documented as of this encounter
--- OUTSIDE RECORDS SUMMARY | 2024-07-11 07:12 | XMS_ITS | Encounter Summary ---
Author Organization [facility] Address [address] [place] [address] Care Team Providers Care Diesel Retrofit Installer Name Role Phone Baldomero Dominguez MD Primary Care Provider [phone] Lane Gonzalez MD Unavailable [phone] Pee Villasenor MD Unavailable [phone] Reason for Visit * Reason Comments Discuss D&C results Well Women Visit Encounter Details Date Type Department Care Team (Late st Contact Info) Description 05/21/2022 10:30 AM CDT Office Visit [facility] Obstetrical Gynecology [address] [place] [address] Pee Villasenor MD [address] [place] [address] [address] [place] [address] Well woman exam (Primary Dx); Screening for cervical cancer; Atypical endometrial hyperplasia Social History Tobacco Use [...] on file 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 female. Discuss D&C results and Well Women Visit Last Pap:unsure - few years ago Mammogram: scheduled in [place] tomorrow - has been doing q6mo Colonoscopy:2019 maybe per pt. q10yrs HPI 56-year-old 2, para 2 who presents for well-woman visit. Doing well. No complaints. Having fairly regular periods. Patient is status post D&C hysteroscopy with endometrial polypectomy in December of this year. Final pathology with atypical endometrial hyperplasia. Postop visit to discuss canceled. Doing self-breast exams. Currently receiving left diagnostic mammogram Q 6 months. Scheduled for tomorrow. Colonoscopy up-to-date Review of Systems Constitutional: Negative for activity [...] nursing note reviewed. Exam conducted with a desktop support technician present. Constitutional: Appearance: She is well-developed. HENT: Head: Normocephalic. Eyes: General: No scleral icterus. Cardiovascular: Rate and Rhythm: Normal rate and regular rhythm. Pulmonary: Breath sounds: Normal breath sounds. Chest: Breasts: Breasts are symmetrical. Right: No mass or skin change. Left: No mass or skin change. Abdominal: Palpations: Abdomen is soft. Tenderness: There is no abdominal tenderness. Genitourinary: Rectum normal, vagina normal, uterus normal and normal vulva. Right labia: normal. Left Labia: normal. Right adnexa: normal. Left adnexa: normal. Cervix: Normal exam. Rectum: No external hemorrhoid. Skin: General: Skin is warm and dry. Neurological: Mental Status: She is alert and oriented to person, place, and time. Gait: Gait normal. Psychiatric: Behavior: Behavior normal. Judgment: Judgment normal. Assessment/Plan Diagnoses and all orders for this visit: Well woman exam (Primary) - Pap and High Risk HPV, reflex to Genotyping; Future Continue present management. Pap smear obtained. If normal recommend Q 3 years. Continue self-breast exams. Encouraged patient to keep diagnostic mammogram tomorrow. Screening for cervical cancer - Pap and High Risk HPV, reflex to Genotyping; Future Atypical endometrial hyperplasia Reviewed final pathology with patient. Discussed at length. Discussed the concern for follow-up. Recommend we refer to trim crew supervisor Oncology for further evaluation and treatment. Discussed the importance of follow-up with trim crew supervisor Oncology. Discussed the possibility of cancer and/or progression into cancer. She seems to understand and agree. documented in this encounter Plan of Treatment Not on file documented as of this encounter Results * Pap and High Risk HPV, reflex to Genotyping (05/21/2022 11:03 AM CDT) Thin prep (Pap test) 05/21/2022 11:03 AM CDT 05/22/2022 11:03 AM CDT Narrative PATHOLOGY [facility] - 05/26/2022 1:32 PM CDT [facility] Department of Pathology [address] [place], [place] [id number] Final Report with Addendum Note to Patients: This report may contain [...] can answer questions and explain the details. Patient Name: ??DERRICK QUESADA Address: ??[address], ?? [place], [place] [address] Gender: ??F : ??1965 (Age: 56) Service: ??Laboratory Location: ?? Hospital #: ??[id number] Patient Type: ??[facility] SPECIMEN Taken: ??05/21/2022 Received: ??05/22/2022 Accessioned:: ??05/25/2022 Reported: ??05/26/2022 Physician(s): Pee Villasenor M.D. [facility] Diagnosis: Source of Specimen: ? SCREENING THIN PREP IMAGED PAP w/ HPV Specimen Adequacy: ?- Satisfactory for evaluation; endocervical/transformation zone component present General Category: ?- Negative for intraepithelial lesion or malignancy MISSY Allen(ASCP) Report Electronically Reviewed and Signed Out By ??MISSY Allen(ASCP) ??05/26/2022 13:32:48Addenda: HPV Test Interpretation NEGATIVE for types 16, 18, 31, 33, 35, 39, 45, 51, 52, 56, 58, 59, 66 and 68. Test performed utilizing Gen-Probe Aptima assay. MISSY Lassiter(ASCP)Report Electronically Reviewed and Signed Out By ??MISSY Lassiter(ASCP) ??05/25/2022 16:23:55 ?? Specimen(s) Received: A: SCREENING THIN PREP IMAGED PAP w/ HPV Clinical History: Last Menstrual Period: Aug The Pap test is a screening test used to aid in the detection of cervical cancer and its precursors. ??It should not be the sole means by which malignant and premalignant lesions are diagnosed. ??Both false negative and false positive results may occur. ?? It also has poor sensitivity for the detection of endometrial lesions and should not be used to evaluate suspected endometrial abnormalities. ??For these reasons it is most important to obtain Pap tests at regular intervals. The performance characteristics of some immunohistochemical stains, fluorescence in-situ hybridization tests and immunophenotyping by flow cytometry cited in this report (if any) were determined by the Surgical Pathology Department at [facility] as part of an ongoing senior software quality analyst program and in compliance with [...] a high complexity laboratory under CLIA '88. The FDA has determined that such clearance or approval is not necessary. ??This test is used for clinical purposes. ??It should not be regarded as investigational or for research. ??Nevertheless, federal rules concerning the medical use of analyte specific reagents require that the following disclaimer be attached to the report: This test was developed and its performance characteristics determined by the Surgical Pathology Department [facility]. ??It has not been cleared or approved by the U. S. Food and Drug Administration. Pee Villasenor MD LAB CYTOLOGY ORDERABLES Final Result PATHOLOGY [facility] documented in this encounter Visit Diagnoses Diagnosis Well woman exam- Primary Routine general medical examination at a health care facility Screening for cervical cancer Screening for malignant neoplasm of the cervix Atypical endometrial hyperplasia Well woman exam Routine general medical examination at a health care facility Screening for cervical cancer Screening for malignant neoplasm of the cervix documented in this encounter Discontinued Medications Medication Sig Discontinue Reason Start Date End Da te ferrous sulfate 325 mg (65 mg of elemental iron) tabletIndications:Iron Deficiency Anemia Take 65 mg of elemental iron by mouth daily with breakfast Other 05/21/2022 documented as of this encounter Historical Medications * This list may reflect changes made after this encounter. acetaminophen-cod eine (TYLENOL with CODEINE #3) 300-30 mg per tablet Take by mouth every 8 (eight) hours as needed 04/28/2022 11/26/2022 added in this encounter Care Teams Diesel Retrofit Installer Relationship Specialty Start Date End Date Baldomero Dominguez MD PCP - General 01/07/17 Lane Gonzalez MD [address] [place] [address] Consulting Physician Interventional Cardiology 12/18/21 Pee Villasenor MD [address] [place] [address] Consulting Physician Obstetrics and Gynecology 12/26/21 documented as of this encounter
--- OUTSIDE RECORDS SUMMARY | 2024-07-11 07:12 | XMS_ITS | Encounter Summary ---
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 Will send to [facility] for review. R SYSTEMS OPERATIONS SPECIALIST documented in this encounter Plan of Treatment Not on file documented as of this encounter Results * Surgical pathology (06/11/2022 11:46 AM CYBER SYSTEMS OPERATIONS SPECIALIST) Tissue (Miscellaneous) 06/11/2022 11:46 AM CYBER SYSTEMS OPERATIONS SPECIALIST 06/11/2022 11:46 AM CYBER SYSTEMS OPERATIONS SPECIALIST Narrative [facility] - 06/12/2022 3:49 PM CYBER SYSTEMS OPERATIONS SPECIALIST EPIC results best viewed via link to PDF [facility] Pathology Consult Service Sheila D[address], [address], [place] [address] Note to Patients: This report may contain [...] and explain the details. SURGICAL PATHOLOGY REPORT * Consult Report * [facility] is providing an additional review of previously collected tissue. FINAL Patient Name: ??DERRICK STEVENS Address: ??[address] , ?[place], [place] ??[address] Gender: ??F : ??1965 (Age: 56) Hospital #: ??[id number] Patient Type: ??[facility] Location: ??[facility]05 Taken: ??06/11/2022 Received: ??06/11/2022 Accessioned: ??06/11/2022 Reported: ??06/12/2022 Physician(s): Angeline Alvarado Jr., M.D. [facility], [facility] Department of Pathology [address] [place] [address] P: [phone] F: [phone] FED EX [id number] Diagnosis: Consult material received from [place], [place] (OSC: [id number]; 12/26/2021) A. Uterus, endocervix, curettage ? - Benign endocervical polyp ? - Scant fragments of unremarkable squamous epithelium ? - No evidence of dysplasia or malignancy B. Uterus, endometrium, curettage ? - Complex atypical hyperplasia ? - Fragments of unremarkable squamous mucosa ? B. Uterus, endometrium, polyp, curettage ? - Endometrioid adenocarcinoma, FIGO grade 1, in association with complex atypical hyperplasia hxl/06/11/2022 17:53 By this signature, I attest that the above diagnosis is based upon my personal examination of the slides(and/or other material indicated in the diagnosis). Thierno Izaguirre M.D., Ph.D. Report Electronically Reviewed and Signed Out By Thierno Izaguirre M.D., Ph.D. 06/12/2022 15:49:14 Microscopic Description and Comment: Microscopic examination substantiates the above cited diagnosis. This case was reviewed by Dr.H. Cruz, who concurs with the above diagnoses Phoebe Fernando M.D. History: The patient is a 56-year-old woman with history of endometrial atypical hyperplasia. Materials Received: Received for review are twelve slides labeled [id number], accompanied by a corresponding pathology report. The material originates from [place], [place]. Selected slide(s) may be digitally scanned for our files, and all materials are returned to the referring institution, along with a copy of our final report. Any testing required for diagnostic purposes was performed in the Department of Pathology and Immunology at [facility], [address] [place] [address]. [place] [address] CLIA # [id number] The performance characteristics of the testing cited in this report (if any) were determined by the ??[facility] Department of Pathology and Immunology [facility], as part of an ongoing quality specialist program and in compliance with federally mandated regulations drawn from the Clinical Laboratory Improvement Act of 1988 (CLIA '88). ??Some of these tests rely on the use of analyte specific reagents (ASR) and are subject to specific labeling requirements by the US Food and Drug Administration. ??Such diagnostic tests may only be performed in a facility that is certified by the Department of Health and Human Services as a high complexity laboratory under CLIA '88. ??The FDA has determined that such clearance or approval is not necessary. ??ASRs should not be regarded as investigational or for research. ??ASRs were developed and the performance characteristics determined by the [facility], [facility] Department of Pathology and Immunology. ??It has not been cleared or approved by the U.S. Food and Drug Administration. ??Any test designated as LDT was developed and its performance characteristics determined by [facility]. It has not been cleared or approved by the FDA. This test is used for clinical purposes and should not be regarded as investigational or for research. Report images and/or scanned reports, if included, only viewable in PDF version of report. us Angeline Alvarado MD LAB PATHOLOGY ORDERABLE S Final Result [facility] [address] [address] documented in this encounter Visit Diagnoses Diagnosis Endometrial hyperplasia with atypia- Primary Endometrial hyperplasia with atypia documented in this encounter Care Teams Porcelain Waxer Relationship Specialty Start Date End Date Baldomero Dominguez MD PCP - General 01/07/17 Lane Gonzalez MD [address] [place] [address] Consulting Physician Interventional Cardiology 12/18/21 Pee Villasenor MD [address] [place] [address] Consulting Physician Obstetrics and Gynecology 12/26/21 documented as of this encounter
--- OUTSIDE RECORDS SUMMARY | 2024-07-11 07:12 | XMS_ITS | Encounter Summary ---
Author Organization [facility] Healthcare Address [address] [place] [address] Care Team Providers Care Youth Development Specialist Name Role Phone Baldomero Dominguez MD Primary Care Provider [phone] Lane Gonzalez MD Unavailable [phone] Pee Villasenor MD Unavailable [phone] Reason for Visit * Auth/Cert Specialty Diagnoses / Procedures Referred By Vianca t Referred To Contact Diagnoses Abnormal uterine and vaginal bleeding, unspecified Abnormal uterine and vaginal bleeding, unspecified [N93.9] Procedures OR HYSTEROSCOPY,W/ENDO BX HYSTEROSCOPY, DILATION AND CURETTAGE POSSIBLE MYOSURE Referral ID Status Reason Start Date Expiration Date Visits Re quested Visits Authorized [id number] 1 1 Encounter Details Date Type Department Care Team (Late st Contact Info) Description 12/26/2021 7:28 AM CDT Anesthesia Event [address] [address] Robby Paredes, [address] [place] [address] [place] [address] Jeremiah Mcclain MD [address] [place] [phone] (work) Anesthesia Record Procedure Summary Procedure Name Responsible Anesthesiologist Anesthesia Start Time Anesthesia Stop Time HYSTEROSCOPY, DILATION AND CURETTAGE WITH ENDOMETRIAL POLYPECTOMY MYOSURE (Vagina) Robby Paredes DO 12/26/21 0728 12/26/21 0813 Events Date Time Event Comment 12/26/2021 0728 In Room 0728 An Start 0728 An Start Data 0733 An Induction The patient was reevaluated immediately before moderate or deep sedation use and before anesthesia induction. 0740 An Intubation 0740 Anesthesia Ready 0748 Proc Start 0800 Proc Fin 0807 An Extubation 0807 an stop data 0809 Out of Room 0813 Handoff to RN I completed my handoff [...] disposition at the time of handoff: PACU 0813 An Stop Meds Name Total midazolam injection 2 mg/2 mL 2 mg fentaNYL 50 mcg/mL PF 100 mcg lidocaine (cardiac) syringe 2 % 50 mg propofol 150 mg ondansetron PF 4 mg dexamethasone 4 mg/mL 4 mg Lactated Ringer's (LR) infusion 800 mL * Agents Name O2% N2O O2 N2O Air Sevoflurane Inspired Sevoflurane * Blood No blood administrations on file. Lines, Drains, and Airways Type Details Placement Removal Peripheral IV Placement Date: 12/26/21; Placement Time: 617; Catheter Size: 20 G; Orientation: Left; Location: Antecubital; Site Prep: Chlorhexidine; Inserted by: haroldo marroquin; Insertion Attempts: 1; Patient Tolerance: Tolerated well; Removal Date: 12/26/21; Removal Time: 1025; Removal Reason: Discharge 12/26/21617 by Shauna Caputo RN 12/26/21 102 by Bernadette Deleon RN Supraglottic Airway Placement Date: 12/26/21; Placement Time: 07 (created via procedure documentation); Mask Ventilation: 0; Size: 4; Insertion Attempts: 1; Removal Date: 12/26/21; Removal Time: 0812/26/21 0741 by Eduardo Ryan CRNA 12/26/21 0807 by Eduardo Ryan CRNA RETIRED Surgical Site 12/26/21; 0744; Vagina; 06/27/24 (Retired LDA, Removed/Completed by [facility] with LDA Utility); 1213 (Retired LDA, Removed/Completed by [facility] with LDA Utility) 12/26/21 0744 by Kellie [...] on file 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 Gender Identity Not on file Sexual Orientation Not on file documented as of this encounter OR Notes * Anesthesia Postprocedure Evaluation - Jeremiah Mcclain MD - 12/26/2021 8:44 AM CDT Patient: Rowena Quesada Procedure Summary Date: 12/26/21 Room / Location: [facility]PER[facility] 20 / [facility] Anesthesia Start: 727 Anesthesia Stop: 812 Procedure: HYSTEROSCOPY, DILATION AND CURETTAGE WITH ENDOMETRIAL POLYPECTOMY MYOSURE (N/A Vagina) Diagnosis: Abnormal uterine and vaginal bleeding, unspecified (Abnormal uterine and vaginal bleeding, unspecified [N93.9]) Surgeons: Pee Villasenor MD Responsible Provider: Robby Paredes DO Anesthesia Type: general ASA Status: 2 Anesthesia Type: general Last vitals BP 138/71 (BP Location: Right arm, Patient Position: Lying) Pulse 62 Temp 36.1 ??C (97 ??F) (Temporal) Resp 16 SpO2 98% Anesthesia Post Evaluation Patient location during evaluation: PACU Patient participation: complete - patient participated Level of consciousness: fully awake Pain management: adequate Airway patency: adequate Evidence of recall: no Cardiovascular status: acceptable Respiratory status: acceptable Hydration status: acceptable Pt is: normothermic Nausea/Vomiting status: none No complications documented. * Anesthesia Procedure Notes - Eduardo Ryan CRNA - 12/26/2021 7:41 AM CDTAssociated Order(s): Airway Airway Patient location: OR Urgency: elective Indications for airway management: anesthesia Difficult airway: no Staff: Supervising provider: Robby Paredes DO Placed by: FIELD MACHINIST: Eduardo Ryan CRNA Emergent airway documentation: Risks and benefits discussed: yes Consent obtained: yes Consent given by: patient Airway prep: Preoxygenated: yes Patient position: sniffing Mask difficulty assessment: 0 - not attempted Spontaneous ventilation during airway: absent Sedation level during airway: deep Final airway details: Final airway type: supraglottic airway Final supraglottic airway: classic SGA size: 4 Number of attempts: 1 * Anesthesia Preprocedure Evaluation - Robby Paredes DO - 12/26/2021 6:40 AM CDT Images from the original note were not included. Anesthesia Evaluation Rowena Quesada is a 56 y.o. female Procedure(s): HYSTEROSCOPY, DILATION AND CURETTAGE POSSIBLE MYOSURE Pre-Op Diagnosis Codes: * Abnormal uterine and vaginal bleeding, unspecified [N93.9] Patient Active Problem List Diagnosis ??? Arthralgia of hip ??? Morbid obesity (CMS/HCC) (HCC) ??? Crohn's disease (CMS/HCC) (HCC) ??? Paroxysmal supraventricular tachycardia (CMS/HCC) (HCC) ??? Morbid obesity due to excess calories (HCC) ??? Abnormal uterine and vaginal bleeding, unspecified ??? Hyperlipidemia ??? Left atrial dilatation ??? Left ventricular hypertrophy ??? Seasonal allergic rhinitis ??? History of supraventricular tachycardia ??? Diastolic dysfunction Past Medical History: Diagnosis Date ??? Abnormal uterine and vaginal bleeding, unspecified patient states unsure of last time noted of date ??? Allergic rhinitis ??? Anemia takes iron daily ??? Arthritis ??? Crohn's disease (CMS/HCC) ([facility]) ??? Heart disease ??? Heart murmur ??? Hypertension tx in past lost over 100lbs no medications at this time ??? Joint pain ??? Left knee injury states wears brace occurred at work seeing Dr for injections ??? Morbid obesity (CMS/HCC) ([facility]) ??? Sleep apnea does use cpap ??? Supraventricular tachycardia by ECG ([facility]) ([facility]) patient states stopped own on 2 [...] Med List Status: Nurse Complete Set By: Ciera Thrasher RN at 12/18/2021 10:18 AM Taking? Last Dose Start Date End Date Provider albuterol HFA (PROVENTIL HFA,VENTOLIN HFA,PROAIR HFA) 90 mcg/actuation inhaler Unknown -- -- Adry Sood MD cholecalciferol (VITAMIN D-3) 1,000 unit capsule 12/19/2021 -- -- Adry Sood MD cyanocobalamin (Vitamin B-12) 500 mcg tablet () 12/19/2021 07/18/20 12/18/21 Rubia Burleson MD Take 1 tablet (500 mcg total) by mouth daily dilTIAZem CD 120 mg 24 hr capsule Not Taking 05/02/20 -- Adry Sood MD ferrous sulfate 325 mg (65 mg of elemental iron) tablet 12/25/2021 -- -- Adry Sood MD multivit hscobgra-szhv-XJ-calcium (THERA-M) 9 mg iron-400 mcg tablet 12/19/2021 07/17/20 -- Rubia Burleson MD Take 1 tablet by mouth 2 (two) times a day traMADoL (ULTRAM) 50 mg tablet Past Month 02/13/20 -- ProviderAdry MD Current Facility-Administered Medications: ??? Lactated Ringer's (LR) infusion, 30 mL/hr, intravenous, Continuous, Last Rate: 30 mL/hr at 12/26/216[address], 30 mL/hr at 12/26/21618 ??? sodium chloride 0.9% flush 0.5-20 mL, 0.5-20 mL, intra-catheter, PRN ??? sodium chloride 0.9% flush 0.5-20 mL, 0.5-20 mL, intra-catheter, PRN Social History Tobacco Use Smoking Status Never Smoker Smokeless Tobacco Never Used Substance and Sexual Activity Alcohol Use Yes Comment: occasional wine Substance and Sexual Activity Drug Use Yes ??? Types: Tramadol Family History Problem Relation Age of Onset [...] Neg Hx ??? Ovarian cancer Neg Hx Vitals: 12/26/21 0610 12/26/21 0636 BP: 120/74 Comment: Right Upper Arm Pulse: 64 Resp: 16 Temp: 36.2 ??C (97.2 ??F) 36.8 ??C (98.2 ??F) SpO2: 100% PT: No results found for requested labs within last 720 hours. INR: No results found for requested labs within last 720 hours. APTT: No results found for requested labs within last 720 hours. Hgb A1C: No results found for requested labs within last 720 hours. CBC RBC: No results found for requested labs within last 720 hours. RDW: No results found for requested labs within last 720 hours. MCHC: No results found for requested labs within last 720 hours. MCH: No results found for requested labs within last 720 hours. MCV: No results found for requested labs within last 720 hours. Hct: No results found for requested labs within last 720 hours. Hgb: No results found for requested labs within last 720 hours. WBC: No results found for requested labs within last 720 hours. MPV: No results found for requested labs within last 720 hours. Platelets: No results found for requested labs within last 720 hours. RDW CV: No results found for requested labs within last 720 hours. RDW Sd: No results found for requested labs within last 720 hours. BMP Glucose: No results found for requested labs within last 720 hours. Calcium: No results found for requested labs within last 720 hours. Sodium: No results found for requested labs within last 720 hours. Potassium: No results found for requested labs within last 720 hours. CO2: No results found for requested labs within last 720 hours. Chloride: No results found for requested labs within last 720 hours. BUN: No results found for requested labs within last 720 hours. Creatinine: No results found for requested labs within last 720 hours. STOP-Bang Total Score: 4 DOS Physical Exam Medical history, medications, and allergies reviewed. Attestation: This PAT evaluation 12/26/2021. Airway Exam: Mallampati: II Cervical ROM: FROM Cardiovascular Exam: Rate: regular Rhythm: regular Pulmonary Exam: LCTA, bilat EENT Exam: trachea midline Dental Exam: Appears intact and caps Skin Exam: Skin is warm and dry. Turgor is normal. Current state: Patient's current state is cooperative and interactive. Anesthesia Plan ASA 2 My patient is approved for the Anesthesia Controlled Medication protocol when under care of a FIELD MACHINIST Planned anesthesia: General Team communication plan: LMA Induction: Induction: intravenous. Postoperative Plan: Patient's planned disposition post procedure is Outpatient. Informed Consent: Discussed plan with FIELD MACHINIST. Anesthesia plan and risks discussed with patient. Consent and Attending signature: I and/or my designee have discussed the anesthesia plan, benefits, possible alternatives, parental presence at time of induction (if indicated), and clinically relevant risks that may include dental injury, unintentional awareness, and/or other complications. The patient and/or parent/legal guardian understand, and agree to proceed. All questions answered. documented in this encounter Plan of Treatment Not on file documented as of this encounter Procedures Procedure Name Priority Date/Time Associated Diagnosis Comments OR AN PROCEDURE PLACEHOLDER Routine 12/26/2021 7:41 AM CDT OR AN ELECTIVE SUPRAGLOTTIC AIRWAY Routine 12/26/2021 7:41 AM CDT documented in this encounter Results * OR AN ELECTIVE SUPRAGLOTTIC AIRWAY, OR AN PROCEDURE PLACEHOLDER (12/26/2021 7:41 AM CDT) Narrative Eduardo Ryan CRNA - 12/26/2021 7:41 AM CDT Eduardo Ryan CRNA ? 12/26/2021 ??7:41 AM Airway Patient location: OR Urgency: elective Indications for airway management: anesthesia Difficult airway: no Staff: Supervising provider: Robby Paredes DO Placed by: FIELD MACHINIST: Eduardo Ryan CRNA Emergent airway documentation: Risks and benefits discussed: yes Consent obtained: yes Consent given by: patient Airway prep: Preoxygenated: yes Patient position: sniffing Mask difficulty assessment: 0 - not attempted Spontaneous ventilation during airway: absent Sedation level during airway: deep Final airway details: Final airway type: supraglottic airway Final supraglottic airway: classic SGA size: 4 Number of attempts: 1 us Robby Paredes DO ANESTHESIA ORDERABLES Final R esult documented in this encounter Visit Diagnoses Not on filedocumented in this encounter Administered Medications Inactive Administered Medications - up to 3 most recent administrations Medication Order MAR Action Action Date Dose Rate Site dexAMETHasone (DECADRON) 4 mg/mL injection intravenous, Administer over 2 Minutes, As needed, Starting on Wed12/26/21 at 0740, Anesthesia Intra-op Given 12/26/2021 7:40 AM CDT 4 mg fentaNYL (SUBLIMAZE) preservative free injection intravenous, As needed, Starting on Wed12/26/21 at 0733, Anesthesia Intra-op Given 12/26/2021 7:33 AM CDT 100 mcg Lactated Ringer's (LR) infusion 30 mL/hr, intravenous, Continuous, Starting on Wed12/26/21 at 0630, Pre-Op New Bag 12/26/2021 8:55 AM CDT 30 mL/hr 30 mL/hr Restarted 12/26/2021 7:28 AM CDT New Bag 12/26/2021 6:19 AM CDT 30 mL/hr 30 mL/hr lidocaine (cardiac) (XYLOCAINE) preservative free injection intravenous, As needed, Starting on Wed12/26/21 at 0733, Anesthesia Intra-op, Indications: Ventricular ArrhythmiasIndications:Ventricular Arrhythmias Given 12/26/2021 7:33 AM CDT 50 mg midazolam (VERSED) 1 mg/mL injection intravenous, As needed, Starting on Wed12/26/21 at 0729, Anesthesia Intra-op Given 12/26/2021 7:29 AM CDT 2 mg ondansetron (ZOFRAN) injection intravenous, Administer over 2 Minutes, As needed, Starting on Wed12/26/21 at 0740, Anesthesia Intra-op Given 12/26/2021 7:40 AM CDT 4 mg propofoL (DIPRIVAN) 10 mg/mL IV intravenous, As needed, Starting on Wed12/26/21 at 0733, Anesthesia Intra-op Given 12/26/2021 7:33 AM CDT 150 mg documented in this encounter Care Teams Youth Development Specialist Relationship Specialty Start Date End Date Baldomero Dominguez MD PCP - General 01/07/17 Lane Gonzalez MD [address] [place] [address] [place] [phone] Consulting Physician Interventional Cardiology 12/18/21 Pee Villasenor MD [address] [place] [address] [place] [phone] Consulting Physician Obstetrics and Gynecology 12/26/21 documented as of this encounter
--- OUTSIDE RECORDS SUMMARY | 2024-07-11 07:12 | XMS_ITS | Encounter Summary ---
Author Organization [facility] Medical Group Address [address] [facility] [address] [place] [address] Care Team Providers Care General Sales Manager Name Role Phone Baldomero Dominguez MD Primary Care Provider [phone] Lane Gonzalez MD Unavailable [phone] Pee Villasenor MD Unavailable [phone] Encounter Details Date Type Department Care Team (Late st Contact Info) Description 09/08/2022 Telephone [facility] Obstetrical Gynecology [address] [facility] [address] [place] [phone] Pee Villasenor MD [address] [facility] [address] [address] Social History Tobacco Use Types [...] on file Legal Sex Female 1:19 PM 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 She alsostates she has been thinking about this and would like to set up an appointment with you to re-discuss before she'll schedule and appointment with them. Please advise. TRESSED CONCRETE LABORER * Telephone Encounter - Pee Villasenor MD - 09/08/2022 10:57 AM PRESTRESSED CONCRETE LABORER Please contact patient and notify her that they have cancel the referral. If she does not want to go over that is okay however remind her that 30-40% of this benign condition will turn to cancer overtime. How long of a time, do not know. We can offer 1 more referral however if she no shows then can not do anything more. At that time we will send a registered letter to notify her of the importance for follow-up and will quit trying to get her to go. 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 On 06/24/22, she no showed and the office reached out to us 06/29/22 to notify they were cancelling the referral. I then contacted her on 06/29/22 and she stated she did not intend to miss the appointment and never received a reminder call. New referral was entered and sent at that time and pt agreed to follow up. TRESSED CONCRETE LABORER * Telephone Encounter - Rae Ross - 09/08/2022 8:44 AM CST [facility] oncology calling just to notify that they had canceled the referral for pt Rowena Quesada due to 3 no call no shows. TRESSED CONCRETE LABORER documented in this encounter Plan of Treatment Not on file documented as of this encounter Visit Diagnoses Not on filedocumented in this encounter Care Teams General Sales Manager Relationship Specialty Start Date End Date Baldomero Dominguez MD PCP - General 01/07/17 Lane Gonzalez MD [address] [facility] [address] [place] [address] [place] [phone] Consulting Physician Interventional Cardiology 12/18/21 Pee Villasenor MD [address] [facility] [address] [place] [address] [place] [phone] Consulting Physician Obstetrics and Gynecology 12/26/21 documented as of this encounter
--- OUTSIDE RECORDS SUMMARY | 2024-07-11 07:12 | XMS_ITS | Encounter Summary ---
Author Organization [facility] Healthcare Address [address] [place] [address] Care Team Providers Care At Risk Specialist Name Role Phone Baldomero Dominguez MD Primary Care Provider [phone] Lane Gonzalez MD Unavailable [phone] Pee Villasenor MD Unavailable [phone] Encounter Details Date Type Department Care Team (Latest Contact Info) Description 05/21/2022 2:49 PM CDT - 05/21/2022 11:59 PM CDT Hospital Encounter 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 Gender Identity Not on file Sexual Orientation Not on file documented as of this encounter Medications at Time of Discharge multivit giafatlk-wqua-SD -calcium (THERA-M) 9 mg iron-400 mcg tablet Take 1 tablet by mouth 2 (two) times a day 60 tablet 11 07/17/2020 acetaminophen-co deine (TYLENOL with CODEINE #3) 300-30 mg per tablet Take by mouth every 8 (eight) hours as needed 04/28/2022 11/26/2022 albuterol HFA (PROVENTIL HFA,VENTOLIN HFA,PROAIR HFA) 90 [...] daily 30 tablet 11 07/18/2020 02/08/2023 dilTIAZem CD 120 mg 24 hr capsuleIndicatio ns:hypertension, can take up to two times per day, SVT Take 1 capsule (120 mg total) by mouth 2 (two) times a day Patient will start dose 5/4 05/02/2020 12/02/2022 traMADoL (ULTRAM) 50 mg tablet Take 1 tablet (50 mg total) by mouth 2 (two) times a day as needed for pain 02/13/2020 02/08/2023 documented as of this encounter Discharge Disposition Disposition Code Departure Means Destination Discharge to home or self care documented in this encounter Miscellaneous Notes * Result Encounter Note - Pee Villasenor MD - 05/21/2022 11:59 PM CDT Please notify patient that Pap smear is normal. documented in this encounter Plan of Treatment Not on file documented as of this encounter Procedures Procedure Name Priority Date/Time Associated Diagnosis Comments PAP AND HIGH RISK HPV, REFLEX TO GENOTYPING Routine 05/21/2022 11:03 AM CDT Well woman exam Screening for cervical cancer documented in this encounter Results * Pap and High Risk HPV, reflex to Genotyping (05/21/2022 11:03 AM CDT) Thin prep (Pap test) 05/21/2022 11:03 AM CDT 05/22/2022 11:03 AM CDT Narrative PATHOLOGY [facility] - 05/26/2022 1:32 PM CDT [facility] Department of Pathology [address] [place] [id number] Final Report with Addendum Note to Patients: [...] questions and explain the details. Patient Name: ??RODNEYDERRICK BLANCO Address: ??[address] [facility], ?? [place], [place] [address] Gender: ??F : ??1965 (Age: 56) Service: ??Laboratory Location: ?? Hospital #: ??[id number] Patient Type: ??[facility] SPECIMEN Taken: ??05/21/2022 Received: ??05/22/2022 Accessioned:: ??05/25/2022 Reported: ??05/26/2022 Physician(s): Pee Villasenor M.D. [facility] Diagnosis: Source of Specimen: ? SCREENING THIN [...] determined by the Surgical Pathology Department at [facility] as part of an ongoing research quality [...] characteristics determined by the Surgical Pathology Department [facility]. ??It has not been cleared or approved by the U. S. Food and Drug Administration. Pee Villasenor MD LAB CYTOLOGY ORDERABLES Final Result PATHOLOGY [facility] documented in this encounter Visit Diagnoses Diagnosis Well woman exam Routine general medical examination at a health care facility Screening for cervical cancer Screening for malignant neoplasm of the cervix documented in this encounter Care Teams At Risk Specialist Relationship Specialty Start Date End Date Baldomero Dominguez MD PCP - General 01/07/17 Lane Gonzalez MD [address] [facility] [address] [place] [address] [place] [phone] Consulting Physician Interventional Cardiology 12/18/21 Pee Villasenor MD [address] [facility] [address] [place] [address] [place] [phone] Consulting Physician Obstetrics and Gynecology 12/26/21 documented as of this encounter
--- OUTSIDE RECORDS SUMMARY | 2024-07-11 07:12 | XMS_ITS | Encounter Summary ---
Author Organization [facility] Address [address] [place] [address] Care Team Providers Care Caser Shoe Parts Name Role Phone Baldomero Dominguez MD Primary Care Provider [phone] Lane Gonzalez MD Unavailable [phone] Pee Villasenor MD Unavailable [phone] Encounter Details Date Type Department Care Team (Late st Contact Info) Description 05/21/2022 Telephone [facility] Obstetrical Gynecology [address] [place] [address] Pee Villasenor MD [address] [place] [address] [address] [place] [address] Social History Tobacco Use Types [...] on file 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 Pt notified and provided with contact info * Telephone Encounter - Zach Marquez LPN - 05/21/2022 3:45 PM CDT ----- Message from Pee Villasenor MD sent at 05/21/2022 11:10 AM CDT ----- Please refer patient to citrus fruit packer Oncology, diagnosis atypical endometrial hyperplasia documented in this encounter Plan of Treatment Not on file documented as of this encounter Visit Diagnoses Diagnosis Atypical endometrial hyperplasia- Primary documented in this encounter Care Teams Caser Shoe Parts Relationship Specialty Start Date End Date Baldomero Dominguez MD PCP - General 01/07/17 Lane Gonzalez MD [address] [place] [address] Consulting Physician Interventional Cardiology 12/18/21 Pee Villasenor MD [address] [place] [address] Consulting Physician Obstetrics and Gynecology 12/26/21 documented as of this encounter
--- OUTSIDE RECORDS SUMMARY | 2024-07-11 07:12 | XMS_ITS | Encounter Summary ---
Author Organization [facility] Address [address] [address] Care Team Providers Care Veterinary Science Teacher Name Role Phone Baldomero Dominguez MD Primary Care Provider [phone] Lane Gonzalez MD Unavailable [phone] Pee Villasenor MD Unavailable [phone] Reason for Referral * Consultation (Routine) - Closed Specialty Diagnoses / Procedures Referred By Vianca montiel Referred To Contact Gynecologic Oncology Diagnoses Atypical endometrial hyperplasia Pee Villasenor MD [address] [place] [address] Phone: tel: fax: [facility] [address] [facility] [address] Phone: tel: fax: Referral ID Status Reason Start Date Expiration Date V isits Requested Visits Authorized [id number] Closed Specialty Services Required 10/14/2022 11/13/2023 1 1 Question Answer Please select the performing region: [facility] (All Locations) [[id number]] To provider: RANDALL COREA [[id number]] # of visits: 1 Comments Atypical endometrial hyperplasia Encounter Details Date Type Department Care Team (Late st Contact Info) Description 10/14/[address] 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 Corea's office along with pathology results and last two office notes. * Telephone Encounter - Zach Marquez LPN - 10/14/2022 12:58 PM CDT ----- Message from Pee Villasenor MD sent at 10/14/2022 12:14 PM CDT ----- Please refer patient to inspector finishing Oncology. documented in this encounter Plan of Treatment Scheduled Referrals Name Type Priority Associated Diagnoses Orde r Schedule Ambulatory referral to Gynecologic Oncology Outpatient Referral Routine Atypical endometrial hyperplasia Expected: 10/28/2022 (Approximate), Expires: 10/15/2023 documented as of this encounter Visit Diagnoses Diagnosis Atypical endometrial hyperplasia- Primary documented in this encounter Care Teams Veterinary Science Teacher Relationship Specialty Start Date End Date Baldomero Dominguez MD PCP - General 01/07/17 Lane Gonzalez MD [address] [place] [address] Consulting Physician Interventional Cardiology 12/18/21 Pee Villasenor MD [address] [place] [address] Consulting Physician Obstetrics and Gynecology 12/26/21 documented as of this encounter
--- OUTSIDE RECORDS SUMMARY | 2024-07-11 07:12 | XMS_ITS | Encounter Summary ---
Author Organization [facility] Address [address] [place] [address] Phone Care Team Providers Care Weight Guesser Name Role Phone Baldomero Dominguez MD Primary Care Provider [phone] Lane Gonzalez MD Unavailable [phone] Pee Villasenor MD Unavailable [phone] Encounter Details Date Type Department Care Team (Late st Contact Info) Description 06/11/2022 Orders Only [facility] [address] [place] [address] Angeline Alvarado MD [address] [place] [id number] [place] [address] Endometrial hyperplasia with atypia Social History Tobacco Use Types Packs/Day Years [...] file Legal Sex Female 1:19 PM BUSINESS ACCOUNT 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 Gender Identity Not on file Sexual Orientation Not on file documented as of this encounter Plan of Treatment Not on file documented as of this encounter Procedures Procedure Name Priority Date/Time Associated Diagnosis Comments SURGICAL PATHOLOGY Routine 06/11/2022 11 :46 AM BUSINESS ACCOUNT LEADER Endometrial hyperplasia with atypia documented in this encounter Results * Surgical pathology (06/11/2022 11:46 AM BUSINESS ACCOUNT LEADER) Tissue (Miscellaneous) 06/11/2022 11:46 AM BUSINESS ACCOUNT LEADER 06/11/2022 11:46 AM BUSINESS ACCOUNT LEADER Narrative [facility] - 06/12/2022 3:49 PM BUSINESS ACCOUNT LEADER EPIC results best viewed via link to PDF [facility] Pathology Consult Service Sheila Dacosta [address], [address], [place], [place] [id number] Note to Patients: This report may contain [...] SURGICAL PATHOLOGY REPORT * Consult Report * [facility] is providing an additional review of previously collected tissue. FINAL Patient Name: ??DERRICK QUESADA Helen Address: ??[address] , ?[place], [place] ??[address] Gender: ??F : ??1965 (Age: 56) Hospital #: ??[id number] Patient Type: ??[facility] Location: ??[facility]05 Taken: ??06/11/2022 Received: ??06/11/2022 Accessioned: ??06/11/2022 Reported: ??06/12/2022 Physician(s): Angeline Alvarado Jr., M.D. [facility], [facility] Department of Pathology [address] [place] [address] P: [phone] F: [phone] FED EX [id number] Diagnosis: Consult material received from [place], [place] (OSC: [id number]; 12/26/2021) A. Uterus, [...] Received for review are twelve slides labeled [id number], accompanied by a corresponding pathology report. The material originates from [place], [place]. Selected slide(s) may be digitally scanned for our files, and all materials are returned to the referring institution, along with a copy of our final report. Any testing required for diagnostic purposes was performed in the Department of Pathology and Immunology at [facility], [address] [place] [address] CLIA # [id number] The performance characteristics of the testing cited in this report (if any) were determined by the ??[facility] Department of Pathology and Immunology [facility], as part of an ongoing supplier quality manager program and in compliance with federally mandated [...] and the performance characteristics determined by the [facility], [facility] Department of Pathology and Immunology. ??It has not been cleared or approved by the U.S. Food and Drug Administration. ??Any test designated as LDT was developed and its performance characteristics determined by [facility]. It has not been cleared or approved by the FDA. This test is used for clinical purposes and should not be regarded as investigational or for research. Report images and/or scanned reports, if included, only viewable in PDF version of report. us Angeline Alvarado MD LAB PATHOLOGY ORDERABLE S Final Result [facility] [address] [address] documented in this encounter Visit Diagnoses Diagnosis Endometrial hyperplasia with atypia documented in this encounter Care Teams Weight Guesser Relationship Specialty Start Date End Date Baldomero Dominguez MD PCP - General 01/07/17 Lane Gonzalez MD [address] [place] [address] Consulting Physician Interventional Cardiology 12/18/21 Pee Villasenor MD [address] [place] [address] Consulting Physician Obstetrics and Gynecology 12/26/21 documented as of this encounter
--- OUTSIDE RECORDS SUMMARY | 2024-07-11 07:13 | XMS_ITS | Encounter Summary ---
Author Organization [facility] Address [address] [place] [address] Care Team Providers Care Deckhand Clam Dredge Name Role Phone Baldomero Dominguez MD Primary Care Provider [phone] Jaciel Melo MD Unavailable Reason for Visit * Reason Comments New Patient Ultrasound done 10/02 for AUB Encounter Details Date Type Department Care Team (Late st Contact Info) Description 11/25/2021 1:00 PM CDT Office Visit [facility] Obstetrical Gynecology [address] [place] [address] Pee Villasenor MD [address] [place] [address] [address] [place] [address] Abnormal uterine bleeding (AUB) (Primary Dx) Social History Tobacco Use Types Packs/Day Years Used Date Smoking Tobacco: Never Smokeless Tobacco: Never Alcohol Use Standard Drinks/Week Comments Yes 0 (1 standard drink = 0.6 oz pur e alcohol) occasional wine Comments No Sex and Gender Information Value Date Recorded Sex Assigned at Not on file Legal Sex Female 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 female. Chief Complaint New Patient (Ultrasound done 10/02/21 for AUB ) HPI: 56-year-old 2, para 2 who presents to the office with complaints of vaginal bleeding. States regular periods albeit heavy with passage [...] she is currently taking supplementation twice daily.. States increasing vasomotor symptoms primarily night sweats. No [id number] products used. Review of Systems Constitutional: Negative for activity [...] Diagnoses and all orders for this visit: Abnormal uterine bleeding (AUB) (N93.9) (Primary) Reviewed history and ultrasound findings with patient. Would recommend we proceed with a fractionalD&C, hysteroscopy with possible MyoSure secondary to findings of endometrial mass. Risks including but not limited to bleeding, infection, perforation uterus as well as possible need for further surgery secondary to final pathology have been discussed. All questions answered and understood. Discussed perimenopause and menopause. Ovarian cysts Recommendation is to repeat ultrasound in 3 months. Will get that ordered at her well-woman visit following surgery. Anemia Reviewed CBC from early September. Completely normal. Would recommend she reduce her iron supplementation to daily until her bleeding gets controlled then may be able to discontinue completely. *This note is dictated using [employer] voice recognition software, variances in spelling and vocabulary are possible and unintentional* documented in this encounter Plan of Treatment Not on file documented as of this encounter Visit Diagnoses Diagnosis Abnormal uterine bleeding (AUB)- Primary documented in this encounter Discontinued Medications Medication Sig Discontinue Reason Start Date End Da te cyclobenzaprine (FLEXERIL) 10 mg tablet cyclobenzaprine 10 mg tablet Other 11/25/2021 docusate sodium (COLACE) 100 mg capsuleIndications:con stipation,stool softener Take 1 capsule (100 mg total) by mouth 2 (two) times a day Other 07/18/2020 11/25/2021 famotidine (PEPCID) 20 mg tabletIndications:non- bleeding gastric disorder Take 1 tablet (20 mg total) by mouth 2 (two) times a day Other 07/17/2020 11/25/2021 fluconazole (DIFLUCAN) 150 mg tablet fluconazole 150 mg tablet Other 11/25/2021 hyoscyamine (LEVSIN) 0.125 mg SL tablet hyoscyamine 0.125 mg sublingual tablet Other 11/25/2021 influenza quadrivalent [id number] (FLULAVAL,FLUARIX,FLUZ ONE) 60 mcg (15 mcg x 4)/0.5 mL syringe Fluarix Quad (PF) 60 mcg (15 mcg x 4)/0.5 mL IM syringe ADM 0.5ML IM UTD Other 11/25/2021 medroxyPROGESTERone (PROVERA) 10 mg tablet Take 1 tablet (10 mg total) by mouth daily for 14 days Other 10/03/2021 11/25/2021 ondansetron (ZOFRAN) 4 mg tablet Take 1 tablet (4 mg total) by mouth every 8 (eight) hours as needed for nausea or vomiting Other 08/05/2020 11/25/2021 ondansetron ODT (ZOFRAN-ODT) 4 mg disintegrating tablet Take 1 tablet (4 mg total) by mouth every 6 (six) hours as needed for nausea or vomiting for up to 15 doses Other 07/17/2020 11/25/2021 oxyCODONE (ROXICODONE) 5 mg immediate release tabletIndications:Pain Take 1 tablet (5 mg total) by mouth every 6 (six) hours as needed for pain for up to 10 doses Other 07/17/2020 11/25/[address] (PROTONIX) 20 mg EC tablet pantoprazole 20 mg tablet,delayed release TK 1 T PO QD Other 11/25/2021 promethazine (PHENERGAN) 25 mg tablet Take 1 tablet (25 mg total) by mouth every 6 (six) hours as needed for nausea or vomiting Other 08/15/2020 11/25/2021 ursodioL (ACTIGALL) 300 mg capsuleIndications:Cho lelithiasis Prevention Take 1 capsule (300 mg total) by mouth 2 (two) times a day Other 07/18/2020 11/25/2021 documented as of this encounter Care Teams Deckhand Clam Dredge Relationship Specialty Start Date End Date Baldomero Dominguez MD PCP - General 01/07/17 Jaciel Melo MD Narrow Fabric Calenderer Cardiovascular Disease 04/12/19 2 documented as of this encounter
--- OUTSIDE RECORDS SUMMARY | 2024-07-11 07:13 | XMS_ITS | Encounter Summary ---
Author Organization [facility] Address [address] [place] [address] Care Team Providers Care Patch Driller Name Role Phone Baldomero Dominguez MD Primary Care Provider Jaciel Melo MD Unavailable [phone] Encounter Details Date Type Department Care Team (Late st Contact Info) Description 11/25/2021 Orders Only [facility] Obstetrical Gynecology [address] [place] [address] Pee Villasenor MD [address] [facility] [address] [place] [address] Surgery, elective (Primary Dx) Social History Tobacco Use Types Packs/Day Years Used Date Smoking Tobacco: Never Smokeless Tobacco: Never Alcohol Use Standard Drinks/Week Comments Yes 0 (1 standard drink = 0.6 oz pur e alcohol) occasional wine Comments No Sex and Gender Information Value Date Recorded Sex Assigned at Not on file Legal 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 ??Testing performed by the [facility]. The 2019-Novel Coronavirus Assay (COVID-19) Real Time RT-PCR assay is for in vitro diagnostic use under FDA emergency use authorization only. A negative RT-PCR result does not preclude infection with COVID-19 and should not be used as the sole basis for treatment or other patient management decisions. ??Additional sample types have been validated according to CLIA regulations. ?? Current Interpretive Data was last revised on August 29, 2020. Testing performed by: [facility], [address] [place]., [address] Nasopharyngeal 12/23/2021 1: 55 PM CDT 12/23/2021 4:21 PM CDT Narrative ALICIA SALAS - 12/24/2021 1:09 AM CDT Is the patient experiencing any symptoms consistent with COVID (eg. Fever, cough, shortness of breath)?->Unsure due to altered mental status What is the reason for testing?->Screening prior to surgery or scheduled??procedure??(Batched) Pee Villasenor MD LAB MICROBIOLOGY - [facility] ORDERABLES Final Result ALICIA [address] Department [place] [address] documented in this encounter Visit Diagnoses Diagnosis Surgery, elective- Primary Unspecified elective surgery for purposes other than remedying health states Surgery, elective Unspecified elective surgery for purposes other than remedying health states documented in this encounter Additional Health Concerns Infection Onset Date Last Indicated Resolved Time COVID: Suspected 11/25/2021 12/23/2021 11/26/2021 3:05 AM CDT documented as of this encounter Care Teams Patch Driller Relationship Specialty Start Date End Date Baldomero Dominguez MD PCP - General 01/07/17 Jaciel Melo MD Scanning Coordinator Cardiovascular Disease 04/12/19 2 documented as of this encounter
--- OUTSIDE RECORDS SUMMARY | 2024-07-11 07:13 | XMS_ITS | Encounter Summary ---
Author Organization [facility] Address [address] [place] [address] Care Team Providers Care Program Officer Name Role Phone Baldomero Dominguez MD Primary Care Provider [phone] Jaciel Melo MD Unavailable [phone] Encounter Details Date Type Department Care Team (Late st Contact Info) Description 11/05/2021 Telephone [facility] Obstetrical Gynecology [address] [facility] [address] [place] [address] Pee Villasenor MD [facility] [address] [address] Social History Tobacco Use Types Packs/Day Years Used Date Smoking Tobacco: Never Smokeless Tobacco: Never Alcohol Use Standard Drinks/Week Comments Yes 0 (1 standard drink = 0.6 oz pur e alcohol) occasional wine Comments No Sex and Gender Information Value Date Recorded Sex Assigned at Not on file 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 Reviewed ultrasound findings. Cyst appears to be a benign process and recommendation per radiology's to repeat an ultrasound in 3 months. * Telephone Encounter - Zach Marquez LPN - 11/05/2021 2:47 PM CDT Please advise. * Telephone Encounter - Shade Calix MA - 11/05/2021 12:59 PM CDT LMOM to see if she had any questions that could be answered over the phone * Telephone Encounter - Rae Ross - 11/05/2021 10:53 AM CDT Pt has a growth and cyst on ovary. Went to hospital a few weeks ago for this reason. Would like to see if she can see Dr Villasenor before her up coming appt on 11/25/21. Pts phone number [phone] [facility] documented in this encounter Plan of Treatment Not on file documented as of this encounter Visit Diagnoses Not on filedocumented in this encounter Care Teams Program Officer Relationship Specialty Start Date End Date Baldomero Dominguez MD PCP - General 01/07/17 Jaciel Melo MD Fiberglass Model Maker Cardiovascular Disease 04/12/19 2 documented as of this encounter
--- OUTSIDE RECORDS SUMMARY | 2024-07-11 07:13 | XMS_ITS | Encounter Summary ---
Author Organization [facility] Address [address] [place] [address] Care Team Providers Care Utility Gelatin Maker Name Role Phone Baldomero Dominguez MD Primary Care Provider [phone] Jaciel Melo MD Unavailable [phone] Encounter Details Date Type Department Care Team (Late st Contact Info) Description 11/10/2021 Telephone [facility] Obstetrical Gynecology [address] [facility] [address] [place] [address] Pee Villasenor MD [address] [facility] [address] [place] [address] Social History Tobacco Use Types Packs/Day Years Used Date Smoking Tobacco: Never Smokeless Tobacco: Never Alcohol Use Standard Drinks/Week Comments Yes 0 (1 standard drink = 0.6 oz pur e alcohol) occasional wine Comments No Sex and Gender Information Value Date Recorded Sex Assigned at Not on file Legal Sex Female 1: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 * Telephone Encounter - Pee Villasenor MD - 11/10/2021 4:03 PM CDT Confused with this. She was provided [address] Sánchez, both which were not kept. Her emergency room visit was 6 weeks ago. At that time she was not anemic. Unless something has changed, ultrasound findings do not require an emergent D&C. I am not sure why her primary care or emergency room would state that. They may not deal with it very much. See if we can move up her appointment but she needs to keep the appointment. * Telephone Encounter - Zach Marquez LPN - 11/10/2021 3:44 PM CDT Patient called reporting she was told in the ER as well as by her PCP that she should be scheduled for a D&C immediately. She is wondering why they would say that and why we're not doing that. Please advise. Ultrasound done 10/02/21. documented in this encounter Plan of Treatment Not on file documented as of this encounter Visit Diagnoses Not on filedocumented in this encounter Care Teams Utility Gelatin Maker Relationship Specialty Start Date End Date Baldomero Dominguez MD PCP - General 01/07/17 Jaciel Melo MD Field Merchandiser Cardiovascular Disease 04/12/19 2 documented as of this encounter
--- OUTSIDE RECORDS SUMMARY | 2024-07-11 07:13 | XMS_ITS | Encounter Summary ---
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 ??Testing performed by the [facility]. The 2019-Novel Coronavirus [...] on August 29, 2020. Testing performed by: [facility], [address] [place]., [address] Nasopharyngeal 12/23/2021 1: 55 PM CDT 12/23/2021 4:21 PM CDT Narrative ALICIA SALAS - 12/24/2021 1:09 AM CDT Is the patient experiencing any symptoms consistent with COVID (eg. Fever, cough, shortness of breath)?->Unsure due to altered mental status What is the reason for testing?->Screening prior to surgery or scheduled??procedure??(Batched) us Pee Villasenor MD LAB MICROBIOLOGY - GENE RAL ORDERABLES Final Result ALICIA [address] [facility] Department [place] [address] documented in this encounter Visit Diagnoses Diagnosis Surgery, elective Unspecified elective surgery for purposes other than remedying health states documented in this encounter Additional Health Concerns Infection Onset Date Last Indicated Resolved Time COVID: Suspected 12/23/2021 12/23/2021 12/24/2021 1:10 AM CDT documented as of this encounter Care Teams Civil Technician Relationship Specialty Start Date End Date Baldomero Dominguez MD PCP - General 01/07/17 Lane Gonzalez MD [address] [facility] [address] [address] Consulting Physician Interventional Cardiology 12/18/21 documented as of this encounter
--- OUTSIDE RECORDS SUMMARY | 2024-07-11 07:14 | XMS_ITS | Encounter Summary ---
Author Organization [facility] Medical Group Address [address] [facility] [address] [place] [address] Care Team Providers Care Rip Machine Operator Name Role Phone Baldomero Dominguez MD Primary Care Provider [phone] Jaciel Melo MD Unavailable [phone] Encounter Details Date Type Department Care Team (Late st Contact Info) Description 10/03/2021 Telephone [facility] Obstetrical Gynecology [address] [address] Patrick Sánchez MD [address] [address] Social History Tobacco Use Types Packs/Day Years Used Date Smoking Tobacco: Never Smokeless Tobacco: Never Alcohol Use Standard Drinks/Week Comments Yes 0 (1 standard drink = 0.6 oz pur e alcohol) occasional wine Comments No Sex and Gender Information Value Date Recorded Sex Assigned at Not on file Legal Sex Female 1:19 PM RN INFORMATICS Gender Identity Not on file Sexual Orientation Not on file documented as of this encounter Miscellaneous Notes * Telephone Encounter - Deloris Zhou RN - 10/03/2021 9:41 AM CST Patient called for us results. Please see encounter from 10/02 INFORMATICS documented in this encounter Plan of Treatment Not on file documented as of this encounter Visit Diagnoses Not on filedocumented in this encounter Care Teams Rip Machine Operator Relationship Specialty Start Date End Date Baldomero Dominguez MD PCP - General 01/07/17 Jaciel Melo MD Machine Engraver Cardiovascular Disease 04/12/19 2 documented as of this encounter
--- OUTSIDE RECORDS SUMMARY | 2024-07-11 07:14 | XMS_ITS | Encounter Summary ---
Author Organization [facility] Healthcare Address [address] [place] [address] Care Team Providers Care It Service Continuity Supervisor Name Role Phone Baldomero Dominguez MD Primary Care Provider [phone] Jaciel Melo MD Unavailable [phone] Reason for Visit * Diagnostic Imaging (Routine) - Closed Specialty Diagnoses / Procedures Referred By Vianca montiel Referred To Contact Diagnoses Abnormal uterine bleeding Procedures US Pelvis W Endovaginal US Transvaginal Lei Otto MD [address] [place] [address] Phone: tel: fax: [address] [address] Referral ID Status Reason Start Date Expiration Date Visits Re quested Visits Authorized [id number] Closed 10/02/2021 11/01/2022 1 1 Encounter Details Date Type Department Care Team (Latest Contact Info) Description 10/02/2021 12:40 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 - 10/02/2021 11:59 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 Hospital Encounter [facility] [address] [place] [address] Abnormal uterine bleeding Discharge Disposition: Discharge to home or self care Social History Tobacco Use Types Packs/Day Years Used Date Smoking Tobacco: Never Smokeless Tobacco: Never Alcohol Use Standard Drinks/Week Comments Yes 0 (1 standard drink = 0.6 oz pur e alcohol) occasional wine Comments No Sex and Gender Information Value Date Recorded Sex Assigned at Not on file Legal Sex Female 1:19 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 Gender Identity Not on file Sexual Orientation Not on file documented as of this encounter Medications at Time of Discharge multivit yhwscvkg-ygcl-KM-ca lcium (THERA-M) 9 mg iron-400 mcg tablet Take 1 tablet by mouth 2 (two) times a day 60 tablet 11 0 albuterol HFA (PROVENTIL HFA,VENTOLIN HFA,PROAIR HFA) 90 mcg/actuation inhaler Inhale 1 puff every 6 (six) hours as needed for wheezing 11/02/19 24 cholecalciferol (VITAMIN D-3) 1,000 unit capsule Take 1 capsule (1,000 Units total) by mouth every morning 11/02/19 24 cyanocobalamin (Vitamin B-12) 500 mcg tabletIndications:P revention of Vitamin B12 Deficiency Take 1 tablet (500 mcg total) by mouth daily 30 tablet 11 0 02/09/20 23 cyclobenzaprine (FLEXERIL) 10 mg tablet cyclobenzaprine 10 mg tablet 11/26/19 22 dilTIAZem CD 120 mg 24 hr capsuleIndications: hypertension,can take up to two times per day, SVT Take 1 capsule (120 mg total) by mouth 2 (two) times a day Patient will start dose 5/4 0 12/03/19 23 docusate sodium (COLACE) 100 mg capsuleIndications: constipation,stool softener Take 1 capsule (100 mg total) by mouth 2 (two) times a day 30 capsule 11 0 11/26/19 22 famotidine (PEPCID) 20 mg tabletIndications:n on-bleeding gastric disorder Take 1 tablet (20 mg total) by mouth 2 (two) times a day 60 tablet 0 11/26/19 22 fluconazole (DIFLUCAN) 150 mg tablet fluconazole 150 mg tablet 11/26/19 22 hyoscyamine (LEVSIN) 0.125 mg SL tablet hyoscyamine 0.125 mg sublingual tablet 11/26/19 22 influenza quadrivalent (FLULAVAL,FLUARIX,F LUZONE) 60 mcg (15 mcg x 4)/0.5 mL syringe Fluarix Quad (PF) 60 mcg (15 mcg x 4)/0.5 mL IM syringe ADM 0.5ML IM UTD 11/26/19 ondansetron (ZOFRAN) 4 mg tablet Take 1 tablet (4 mg total) by mouth every 8 (eight) hours as needed for nausea or vomiting 20 tablet 3 1 11/26/19 22 ondansetron ODT (ZOFRAN-ODT) 4 mg disintegrating tablet Take 1 tablet (4 mg total) by mouth every 6 (six) hours as needed for nausea or vomiting for up to 15 doses 15 tablet 0 11/26/19 22 oxyCODONE (ROXICODONE) 5 mg immediate release tabletIndications:P ain Take 1 tablet (5 mg total) by mouth every 6 (six) hours as needed for pain for up to 10 doses 10 tablet 0 11/26/[address] (PROTONIX) 20 mg EC tablet pantoprazole 20 mg tablet,delayed release TK 1 T PO QD 11/26/19 22 promethazine (PHENERGAN) 25 mg tablet Take 1 tablet (25 mg total) by mouth every 6 (six) hours as needed for nausea or vomiting 30 tablet 2 1 11/26/19 22 traMADoL (ULTRAM) 50 mg tablet Take 1 tablet (50 mg total) by mouth 2 (two) times a day as needed for pain 0 02/09/20 23 ursodioL (ACTIGALL) 300 mg capsuleIndications: Cholelithiasis Prevention Take 1 capsule (300 mg total) by mouth 2 (two) times a day 60 capsule 11 0 11/26/19 22 documented as of this encounter Discharge Disposition Disposition Code Departure Means Destination Discharge to home or self care documented in this encounter Plan of Treatment Not on file documented as of this encounter Procedures Procedure Name Priority Date/Time Associated Diagnosis Comments US PELVIS W ENDOVAGINAL Schedule Routine, Read Routine (OP Routine) 10/02/2021 1:52 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 Abnormal uterine bleeding documented in this encounter Results * US Pelvis W Endovaginal (10/02/2021 1:52 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) Anatomical Region Laterality Modality Pelvis N/A Ultrasound 10/02/2021 6:24 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 Narrative 10/02/2021 6:27 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 EXAM DESCRIPTION: ?? US PELVIS W ENDOVAGINAL REASON FOR STUDY: ?? Abnormal uterine bleeding, symptoms for 2 weeks with nausea and dizziness and diarrhea. ??Irregular heavy bleeding. ??Last normal menstrual period was 09/16/2021. TECHNIQUE: Grayscale ultrasound of the pelvic contents was performed with ?? transabdominal and transvaginal ??transducer. ?? COMPARISON: None available. FINDINGS: UTERUS: The uterus appears to be retroflexed. ??The uterus is slightly heterogeneous. ??No uterine mass is identified. ENDOMETRIUM: The endometrium appears thickened measuring 1.7 cm. ??The endometrium is heterogeneous with a slightly more focal hypoechoic area near the fundus of the endometrium, 0.7 x 1.0 x 0.9 cm. ??There is some vascular flow, this is indeterminate for a possible endometrial polyp or submucosal uterine fibroid. RIGHT OVARY: The right ovary measures ?? 3.0 x 1.9 x 2.2 ??cm. ??Cystic structure within the right ovary is 2.5 x 1.3 x 1.7 cm, this has low level echoes and does not have features of a simple cyst. ?? There is documentation of color Doppler flow in the right ovary. The right ovary appears unremarkable. LEFT OVARY: The left ovary measures ?? 3.6 x 2.3 x 1.3 ??cm. ??Mildly complex cystic structure left ovary with peripheral hyperechoic rim possibly calcified, this is 1.4 x 1.6 x 2.0 cm. ?? There is documentation of color Doppler flow in the left ovary. ??The left ovary appears unremarkable. PELVIC FLUID: ?? There is no evidence of free fluid in the pelvis. OTHER: ?? No other significant findings. IMPRESSION: 1. ?? Thickened endometrium measuring up to 1.7 cm, may consider hysteroscopy for further assessment. ?? 2. ?? Hypoechoic endometrial lesion near the fundus 1 cm does have vascular flow suggestive of a true lesion rather than hematoma. ??This could potentially be an endometrial polyp or submucosal fibroid. ??This could be correlated with direct inspection. 3. ?? Mildly complex cystic structure right ovary may be a hemorrhagic cyst but not definitive. ??Peripherally calcified mildly complex cystic structure left ovary. ??Attention could be made on a three-month follow-up ultrasound. THIS IS AN ELECTRONICALLY VERIFIED FINAL REPORT 10/02/2021 6:27 PM - Electronically signed by ??Freddy Stokes M.D. D: ??10/02/2021 6:27 PM T: Report ID: [id number] Reading Location: ??[id number] Procedure Note Freddy Stokes Jr., MD - 10/02/2021 EXAM DESCRIPTION: US PELVIS W ENDOVAGINAL REASON FOR STUDY: Abnormal uterine bleeding, symptoms for 2 weeks with nausea and dizziness and diarrhea. Irregular heavy bleeding. Last normal menstrual period was 09/16/2021. TECHNIQUE: Grayscale ultrasound of the pelvic contents was performed with transabdominal and transvaginal transducer. COMPARISON: None available. FINDINGS: UTERUS: The uterus appears to be retroflexed. The uterus is slightly heterogeneous. No uterine mass is identified. ENDOMETRIUM: The endometrium appears thickened measuring 1.7 cm. The endometrium is heterogeneous with a slightly more focal hypoechoic areanear the fundus of the endometrium, 0.7 x 1.0 x 0.9 cm. There is some vascular flow, this is indeterminate for a possible endometrial polyp or submucosal uterine fibroid. RIGHT OVARY: The right ovary measures 3.0 x 1.9 x 2.2 cm. Cysticstructure within the right ovary is 2.5 x 1.3 x 1.7 cm, this has low level echoesand does not have features of a simple cyst. There is documentation of color Doppler flow in the right ovary. The right ovary appears unremarkable. LEFT OVARY: The left ovary measures 3.6 x 2.3 x 1.3 cm. Mildly complex cystic structure left ovary with peripheral hyperechoic rim possibly calcified, this is 1.4 x 1.6 x 2.0 cm. There is documentation of color Doppler flow in the left ovary. The left ovary appears unremarkable. PELVIC FLUID: There is no evidence of free fluid in the pelvis. OTHER: No other significant findings. IMPRESSION: 1. Thickened endometrium measuring up to 1.7 cm, may considerhysteroscopy for further assessment. 2. Hypoechoic endometrial lesion near the fundus 1 cm does have vascular flow suggestive of a true lesion rather than hematoma. This couldpotentially be an endometrial polyp or submucosal fibroid. This could be correlatedwith direct inspection. 3. Mildly complex cystic structure right ovary may be a hemorrhagic cystbut not definitive. Peripherally calcified mildly complex cystic structureleft ovary. Attention could be made on a three-month follow-up ultrasound. THIS IS AN ELECTRONICALLY VERIFIED FINAL REPORT 10/02/2021 6:27 PM - Electronically signed by Freddy Stokes M.D. T: Report ID: [id number] Reading Location: [place] [address] us Lei Salvador Otto MD IMG US PROCEDURES Final Re sult documented in this encounter Visit Diagnoses Diagnosis Abnormal uterine bleeding Unspecified disorder of menstruation and other abnormal bleeding from female genital tract documented in this encounter Care Teams It Service Continuity Supervisor Relationship Specialty Start Date End Date Baldomero Dominguez MD PCP - General 01/07/17 Jaciel Melo MD Contract Modeler Cardiovascular Disease 04/12/19 2 documented as of this encounter
--- OUTSIDE RECORDS SUMMARY | 2024-07-11 07:14 | XMS_ITS | Encounter Summary ---
Author Organization [facility] Medical Group Address [address] [facility] [address] [place] [address] Care Team Providers Care Glost Tile Sorter Name Role Phone Baldomero Dominguez MD Primary Care Provider [phone] Jaciel Melo MD Unavailable [phone] Encounter Details Date Type Department Care Team (Late st Contact Info) Description 10/03/2021 Orders Only [facility] Medical [facility] Obstetrical Gynecology [address] [phone] Patrick Sánchez MD [address] [address] Social History Tobacco Use Types Packs/Day Years Used Date Smoking Tobacco: Never Smokeless Tobacco: Never Alcohol Use Standard Drinks/Week Comments Yes 0 (1 standard drink = 0.6 oz pur e alcohol) occasional wine Comments No Sex and Gender Information Value Date Recorded Sex Assigned at Not on file 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 Gender Identity Not on file Sexual Orientation Not on file documented as of this encounter Ordered Prescriptions Prescription Sig Dispense Quantity Refills Last Filled Start Date End Date medroxyPROGESTERon e (PROVERA) 10 mg tablet Take 1 tablet (10 mg total) by mouth daily for 14 days 14 tablet 10/03/2021 11/25/2021 documented in this encounter Plan of Treatment Not on file documented as of this encounter Visit Diagnoses Not on filedocumented in this encounter Care Teams Glost Tile Sorter Relationship Specialty Start Date End Date Baldomero Dominguez MD PCP - General 01/07/17 Jaciel Melo MD Rn Case Management Cardiovascular Disease 04/12/19 2 documented as of this encounter
--- OUTSIDE RECORDS SUMMARY | 2024-07-11 07:15 | XMS_ITS | Encounter Summary ---
Author Organization [facility] Healthcare Address [address] [place] [address] Care Team Providers Care Pediatric Rn Name Role Phone Baldomero Dominguez MD Primary Care Provider [phone] Jaciel Melo MD Unavailable [phone] Reason for Visit * Reason Comments Vaginal Bleeding Encounter Details Date Type Department Care Team (Late st Contact Info) Description 10/01/2021 4:22 PM FIRER WATERTENDER - 10/01/2021 7:39 PM FIRER WATERTENDER Emergency [address] [address] Klaudia Diego MD [address] [place] [address] SVT (supraventricular tachycardia) (CMS/HCC) (HCC) (Primary Dx); DUB (dysfunctional uterine bleeding) Discharge Disposition: Discharge to home or self care Social History Tobacco Use Types Packs/Day Years Used Date Smoking Tobacco: Never Smokeless Tobacco: Never Alcohol Use Standard Drinks/Week Comments Yes 0 (1 standard drink = 0.6 oz pur e alcohol) occasional wine Comments No Sex and Gender Information Value Date Recorded Sex Assigned at Not on file Legal Sex Female 1:19 PM FIRER WATERTENDER Gender Identity Not on file Sexual Orientation Not on file documented as of this encounter Last Filed Vital Signs Vital Sign Reading Time Taken Comments Blood Pressure 138/78 10/01/2021 7:32 PM FIRER WATERTENDER Pulse 77 10/01/2021 7:32 PM FIRER WATERTENDER Temperature 36.6 ??C (97.9 ??F) 10/01/2021 3:48 PM CS T Respiratory Rate 19 10/01/2021 7:32 PM FIRER WATERTENDER Oxygen Saturation 100% 10/01/2021 7:32 PM FIRER WATERTENDER Inhaled Oxygen Concentration - - Weight 91.2 kg (201 lb) 10/01/2021 3:48 PM FIRER WATERTENDER Height 170.2 cm (5' 7 ) 10/01/2021 3:48 PM FIRER WATERTENDER Body Mass Index 31.48 10/01/2021 3:48 PM FIRER WATERTENDER documented in this encounter Discharge Instructions * Discharge Instructions* Klaudia Diego MD - 10/01/2021 7:22 PM FIRER WATERTENDER ALL OF YOUR LABS ARE UNREMARKABLE YOUR BRIEFLY IN SVT THAT RESOLVED STAY HYDRATED WITH FREQUENT FLUIDS YOUR HEMOGLOBIN HERE IS STABLE. YOUR CASE WAS DISCUSSED WITH OUR ON-CALL MEAT STUFFER WHO DOES NOT RECOMMENDANYTHING AT THIS TIME OTHER THAN AN OUTPATIENT PELVIC ULTRASOUND AND FURTHER EVALUATION BY MEAT STUFFER. YOU CAN FOLLOW-UP WITH DR. OCHOA WITH MEAT STUFFER OR YOUR LAST MEAT STUFFER DOCTOR YOUR PRIMARY CARE DOCTOR CAN ALSO ORDERED OUTPATIENT PELVIC ULTRASOUND. R WATERTENDER documented in this encounter Medications at Time of Discharge multivit brglebhy-dnqz-BL-ca lcium (THERA-M) 9 mg iron-400 mcg tablet [...] IM syringe ADM 0.5ML IM UTD 11/26/19 22 ondansetron (ZOFRAN) 4 mg tablet Take 1 [...] or self care documented in this encounter ED Notes * Klaudia Diego MD - 10/01/2021 6:21 PM CST HPI Chief Complaint Patient presents with ??? Vaginal Bleeding 56-YEAR-OLD FEMALE HISTORY OF PAROXYSMAL SVT FOLLOWED BY DR. HANNAH, CROHN'S DISEASE, MORBID OBESITY TO THE EMERGENCY DEPARTMENT COMPLAINING OF HEAVY VAGINAL BLEEDING FOR THE LAST 14 DAYS. PATIENT STATES THAT THIS IS VERY ABNORMAL FOR HER. SHE DENIES ANY PELVIC PAIN. IN TRIAGE PATIENT FOUND TO BEIN SVT. PATIENT DID NOT FEEL ANY PALPITATIONS AT THAT PARTICULAR TIME. PATIENT DENIESDIZZINESS, CHEST PAIN, NAUSEA, VOMITING. PATIENT STATES FOR THE LAST COUPLE DAYS SHE HAS FELT LIGHTHEADED AND WEAK. ONCE PATIENT ARRIVES TO THE ROOM BURN CREW MEMBER APPEAR TO BE NORMAL SINUS, RATE IN THE 70S. Patient History: Patient Active Problem List Diagnosis Date Noted ??? Morbid obesity due to excess calories (HCC) 02/15/2020 ??? Morbid obesity (CMS/HCC) (HCC) 01/07/2017 ??? Crohn's disease (CMS/HCC) (HCC) 01/07/2017 ??? Paroxysmal supraventricular tachycardia (CMS/HCC) (HCC) 01/07/2017 ??? Arthralgia of hip 09/26/2015 Past Medical History: Diagnosis Date ??? Anemia ??? Arthritis ??? Heart disease ??? Hypertension ??? Irritable bowel syndrome ??? Joint pain ??? Morbid obesity (CMS/HCC) ??? Supraventricular tachycardia by ECG (CMS/HCC) Past Surgical History: Procedure Laterality Date ??? SECTION ??? CHOLECYSTECTOMY ??? FUNCTIONAL ENDOSCOPIC SINUS SURGERY ??? GASTRIC BYPASS 2019 ??? KNEE ARTHROSCOPY W/ MENISCAL REPAIR Left 03/01/2020 ??? NOSE SURGERY Family History Problem Relation Age of Onset ??? Diabetes Mother Family history of diabetes mellitus - (Added by TW Conv) ??? Hypertension Mother Family history of hypertension - (Added by TW Conv) ??? Obesity Mother Overweight - (Added by TW Conv) ??? Cancer Mother Family history of malignant neoplasm - (Added by TW Conv) ??? Stroke Maternal Grandmother Social History Tobacco Use ??? Smoking status: Never Smoker ??? Smokeless tobacco: Never Used Vaping Use ??? Vaping Use: Never used Substance Use Topics ??? Alcohol use: Yes Comment: occasional wine ??? Drug use: Never Social History Social History Narrative Social alcohol use : (Added by TW Conv) Review of Systems Review of Systems Gastrointestinal: Negative for blood in stool. Neurological: Positive for weakness and light-headedness. All other systems reviewed and are negative. Physical Exam ED Triage Vitals [10/01/21 1548] Temp Pulse Resp BP SpO2 36.6 ??C (97.9 ??F) 70 20 137/70 98 % Temp src Heart Rate Source Patient Position BP Location FiO2 (%) Oral Monitor Sitting Right arm -- Physical Exam Vitals and nursing note reviewed. HENT: Mouth/Throat: Mouth: Mucous membranes are moist. Cardiovascular: Rate and Rhythm: Normal rate. Pulses: Normal pulses. Heart sounds: Normal heart sounds. Pulmonary: Effort: Pulmonary effort is normal. Abdominal: General: Abdomen is flat. Tenderness: There is no abdominal tenderness. Comments: + SUPRAPUBIC AND LEFT LOWER QUADRANT TENDERNESS Musculoskeletal: General: Normal range of motion. Skin: General: Skin is warm and dry. Capillary Refill: Capillary refill takes less than 2 seconds. Neurological: Mental Status: She is alert and oriented to person, place, and time. [facility] ED Course as of 10/01/212018 Time: 10/01 1828 Comment: EKG OBTAINED AT 4:55 P.M.: SUPRAVENTRICULAR TACHYCARDIA, RATE 142, QRS 98, QTC 455, NORMAL AXIS DEVIATION, SLIGHT ST DEPRESSION V2 THROUGH V6. NO OTHER ARRHYTHMIAS. NO OTHER ACUTE ISCHEMIA.INTERVALS OTHERWISE WITHIN By: Klaudia Diego MD Time: 10/01 1836 Comment: REPORT GIVEN TO DR. OCHOA. I THINK DO AT THIS TIME FROM A MEAT STUFFER STANDPOINT. PATIENT WOULD REQUIRE AN OUTPATIENT WORKUP FOR DYSFUNCTIONAL UTERINE BLEEDING. NO PROGESTERONE TO BE GIVEN OR STARTED THIS TIME. PATIENT STATES THAT SHE HAS IN THE PAST BEEN FOLLOWED BY DR. CHEW WITH MEAT STUFFER HOWEVER SHE HAS BEEN LOST TO FOLLOW-UP FOR THE LAST 4-5 YEARS. By: Klaudia Diego MD Time: 10/02 1847 Comment: SINUS BRADYCARDIA, RATE 57, QRS 94, QTC 401, NORMAL AXIS DEVIATION, NO SIGNS OF ACUTE ISCHEMIA. NO ARRHYTHMIAS. INTERVALS OTHERWISE WITHIN NORMAL LIMITS By: Klaudia Diego MD Time: 10/01 1912 Comment: CXR FINDINGS: LUNGS/PLEURA: No focal consolidation or pneumothorax. No pleural effusion. ?? HEART/MEDIASTINUM: Heart size is normal. Normal mediastinal and hilar contours. ?? HARDWARE/LINES/TUBES: None. ?? BONES: No acute findings. ?? OTHER: No other significant finding. IMPRESSION: ?? No acute cardiopulmonary process is identified. By: Klaudia Diego MD Final diagnoses: SVT (supraventricular tachycardia) (CMS/HCC) (HCC) DUB (dysfunctional uterine bleeding) Klaudia Diego MD 10/01/21 2019 R WATERTENDER * Phyllis Hansen RN - 10/01/2021 5:29 PM CST Hx SVT and anemia. Patient administered iron and Cardizem daily. Denies chest pain, SOB, headache, fever, chills. Phyllis Hansen RN 10/01/21 1730 R WATERTENDER * Phyllis Hansen RN - 10/01/2021 5:29 PM CST Endorses dizziness, lightheaded, fatigue since x 14 days of vaginal bleeding. Phyllis Hansen RN 10/01/21 1729 R WATERTENDER * Phyllis Hansen RN - 10/01/2021 5:24 PM CST Patient reports vaginally bleeding x 14 days. Patient reports having a regular menstrual cycle thatlasts x 2 days and is done. Reports having a cycle lasting x 2 days before the consecutive bleedingthat has lasted x 2 days ago. Cycle is usually light. Patient reports coming from Dr. Shipman office today after observing quarter sized clots and changing pads 3-4x an hour. Patient experiencingsuper pubic abdominal pain, nausea, and x 1 episode of emesis yesterday. Reports feeling queezy, lightheaded, and nauseas on arrival. Describes pain as cramping. Reports taking Advil without relief. Patient has hx SVT that is controlled with Cardizem. Phyllis Hansen RN 10/01/21 1728 R WATERTENDER * Gigi Rosales RN - 10/01/2021 4:53 PM CST EMT reports patient is pale, lightheaded. V/S noted tachycardia. Reclined, IVF started. R WATERTENDER * Gigi Rosales RN - 10/01/2021 4:01 PM CST My doctor sent me here.. been bleeding for 14 days.. pad every 30 minutes. Pelvic cramping and heavy vaginal bleeding intermittently. R WATERTENDER documented in this encounter Plan of Treatment Not on file documented as of this encounter Procedures Procedure Name Priority Date/Time Associated Diagnosis Comments ECG 12-LEAD Routine 10/01/2021 6:46 PM FIRER WATERTENDER SEPSIS LACTATE WITH REFLEX STAT 10/01/2021 6:38 PM FIRER WATERTENDER XR CHEST 1 VIEW ED 10/01/2021 6:10 PM FIRER WATERTENDER ECG 12-LEAD STAT 10/01/2021 4:55 PM FIRER WATERTENDER EGFR STAT 10/01/2021 4:09 PM FIRER WATERTENDER DIFFERENTIAL AUTO STAT 10/01/2021 4:0 9 PM FIRER WATERTENDER THYROID FUNCTION CASCADE STAT 10/01/2021 4:09 PM FIRER WATERTENDER CBC WITH AUTO DIFFERENTIAL STAT 10/01/2021 4:09 PM FIRER WATERTENDER ANTIBODY IDENTIFICATION STAT 10/02/19 22 4:09 PM FIRER WATERTENDER ABO/RH STAT 10/01/2021 4:09 PM FIRER WATERTENDER APTT STAT 10/01/2021 4:09 PM FIRER WATERTENDER PROTIME-INR STAT 10/01/2021 4:09 PM FIRER WATERTENDER ANTIBODY SCREEN STAT 10/01/2021 4:09 PM FIRER WATERTENDER HC ANTIBODY SCREEN RBC STAT 4:09 PM FIRER WATERTENDER HCG, BLOOD, QUANTITATIVE STAT 10/01/2021 4:09 PM FIRER WATERTENDER MAGNESIUM STAT 10/01/2021 4:09 PM FIRER WATERTENDER COMPREHENSIVE METABOLIC PANEL STAT 10/01/2021 4:09 PM FIRER WATERTENDER documented in this encounter Results * ECG 12 lead (10/01/2021 6:46 PM FIRER WATERTENDER) Ventricular Rate EKG/Min 57 BPM [facility] Atrial Rate 57 BPM [facility] [place]-Interval (MSEC) 150 ms [facility] QRS-Interval (MSEC) 94 ms [facility] QT-Interval (MSEC) 412 ms [facility] QTc 401 ms [facility] P [place] 77 degrees [facility] R [place] 18 degrees [facility] T [place] 19 degrees [facility] Diagnosis Sinus bradycardia Otherwise normal ECG When compared with ECG of 01-OCT-2021 16:55, Vent. rate has decreased BY ??85 BPM Incomplete right bundle branch block is no longer Present ST no longer depressed in Anterolateral leads [facility] 10/01/2021 6:46 PM FIRER WATERTENDER 10/03/2021 6:53 PM FIRER WATERTENDER us Natalia MAURICE ECG ORDERABLES Final Resul t [facility] * (ABNORMAL) Sepsis Lactate w/ Reflex (10/01/2021 6:38 PM FIRER WATERTENDER) Sepsis Lactate 0.5(L) 0.7 - 2.0 mmol/L [facility] Blood 10/01/2021 6:38 PM FIRER WATERTENDER 10/01/2021 6:43 PM FIRER WATERTENDER us Klaudia Diego MD LAB BLOOD ORDERABLES Ingris l Result ALICIA [address] [facility] Department [place] [address] * XR Chest 1 Vw Portable (10/01/2021 6:10 PM FIRER WATERTENDER) Anatomical Region Laterality Modality Body, Chest N/A Computed Radiogr aphy 10/01/2021 6:31 PM FIRER WATERTENDER Narrative 10/01/2021 6:32 PM FIRER WATERTENDER EXAM DESCRIPTION: ?? XR CHEST 1 VIEW REASON FOR STUDY: ?? LIGHTHEADEDNESS, ARRHYTHMIA ?? Pt states heavy vaginal bleeding x14 days, vomiting yesterday, nausea today ?? TECHNIQUE: ?? Frontal ??radiographic view of the chest acquired. COMPARISON: ?? 07/25/2018. FINDINGS: LUNGS/PLEURA: ?? No focal consolidation or pneumothorax. No pleural effusion. HEART/MEDIASTINUM: ?? Heart size is normal. Normal mediastinal and hilar contours. HARDWARE/LINES/TUBES: ?? None. BONES: ?? No acute findings. OTHER: ?? No other significant finding. IMPRESSION: ?? No acute cardiopulmonary process is identified. THIS IS AN ELECTRONICALLY VERIFIED FINAL REPORT 10/01/2021 6:32 PM - Electronically signed by ??Dmear Abbott D.O. Demar Abbott D.O. D: ??10/01/2021 6:32 PM T: Report ID: [id number] Reading Location: ??[id number] Procedure Note Demar Abbott, - 10/01/2021 EXAM DESCRIPTION: XR CHEST 1 VIEW REASON FOR STUDY: LIGHTHEADEDNESS, ARRHYTHMIA Pt states heavy vaginal bleeding x14 days, vomiting yesterday, nauseatoday TECHNIQUE: Frontal radiographic view of the chest acquired. COMPARISON: 07/25/2018. FINDINGS: LUNGS/PLEURA: No focal consolidation or pneumothorax. No pleuraleffusion. HEART/MEDIASTINUM: Heart size is normal. Normal mediastinal and hilar contours. HARDWARE/LINES/TUBES: None. BONES: No acute findings. OTHER: No other significant finding. IMPRESSION: No acute cardiopulmonary process is identified. THIS IS AN ELECTRONICALLY VERIFIED FINAL REPORT 10/01/2021 6:32 PM - Electronically signed by Demar Abbott D.O. Demar Abbott D.O. T: Report ID: [id number] Reading Location: [id number] Klaudia Diego MD IMG XR PROCEDURES Final R esult * ECG 12 lead (10/01/2021 4:55 PM FIRER WATERTENDER) Ventricular Rate EKG/Min 142 BPM [facility] Atrial Rate 131 BPM [facility] QRS-Interval (MSEC) 98 ms [facility] QT-Interval (MSEC) 296 ms [facility] QTc 455 ms [facility] R [place] -2 degrees [facility] T [place] 31 degrees [facility] Diagnosis Supraventricular tachycardia Incomplete right bundle branch block ST depression, consider subendocardial injury Abnormal ECG [facility] 10/01/2021 4:55 PM FIRER WATERTENDER 10/02/2021 12:31 PM FIRER WATERTENDER us Klaudia Diego MD ECG ORDERABLES Final Res ult Performing Organization Address City/[facility]/ZIP Co de Phone Number [facility] * TSH reflex to free T4 (10/01/2021 4:09 PM FIRER WATERTENDER) TSH 1.15 0.30 - 4.20 mcIUnit/mL [facility] Blood 10/01/2021 4:09 PM FIRER WATERTENDER 10/01/2021 4:14 PM FIRER WATERTENDER Klaudia Diego MD LAB BLOOD ORDERABLES Ingris l Result [facility] [address] [facility] Department [place] [address] * Magnesium (10/01/2021 4:09 PM FIRER WATERTENDER) Magnesium 1.9 1.4 - 2.5 mg/dL [facility] Blood 10/01/2021 4:09 PM FIRER WATERTENDER 10/01/2021 4:14 PM FIRER WATERTENDER Klaudia Diego MD LAB BLOOD ORDERABLES Ingris l Result Performing Organization Address [facility] Co de Phone Number [facility] [address] [facility] [place] [address] * Antibody identification (10/01/2021 4:09 PM FIRER WATERTENDER) [facility] Antibody Identification Interpretation Anti-P1 KITALAKESHA Comment: 10/01/2021 17:10 ??[id number] Previously antibody not currently reacting. Blood 10/01/2021 4:09 PM FIRER WATERTENDER 10/01/2021 4:14 PM FIRER WATERTENDER us Maya MAURICE LAB BLOOD BANK TEST ORDERABLES F inal Result Performing Organization Address [facility] de Phone Number [facility] [address] [place] [address] * eGFR (10/01/2021 4:09 PM FIRER WATERTENDER) [facility] eGFR 107 mL/min/1. 73 m2 KITALAKESHA Comment: Interpretive Data Reference Interval Normal ?>/= 90 mL/min/1.73m2 Mildly decreased* ? 60 - 89 mL/min/1.73m2 Mildly to moderately decreased ?45 - 59 mL/min/1.73m2 Moderately to severely decreased ??30 - 44 mL/min/1.73m2 Severely decreased ?15 - 29 mL/min/1.73m2 Kidney Failure ?< 15 ??mL/min/1.73m2 *Relative to young adult level Estimated glomerular filtration rate is determined by the 2020 CKD-EPI equation recommended by the National Kidney Foundation (A Unifying Approach to GFR Estimation: Recommendations of the NKF-ASK Task Force on Reassessing the Inclusion of Race in Diagnosing Kidney Disease, JASN 2020). The CKD-EPI equation should not be used for patients with unstable renal function and has not been validated in children and those over 70. Current interpretive data was last reviewed 2021. Blood 10/01/2021 4:09 PM FIRER WATERTENDER 10/01/2021 4:14 PM FIRER WATERTENDER us Maya MAURICE LAB BLOOD ORDERABLES Final Resul t [facility] [address] [facility] Department [place] [address] * Differential, auto (10/01/2021 4:09 PM FIRER WATERTENDER) Neutrophil abs 4.1 1.7 - 6.5 K/cumm [facility] Imm gran abs 0.0 0.0 - 0.1 K/cumm [facility] Lymphocyte abs 2.6 0.8 - 3.3 K/cumm [facility] Monocyte abs 0.6 0.2 - 0.8 K/cumm [facility] Eosinophil abs 0.2 0.0 - 0.5 K/cumm [facility] Basophil abs 0.1 0.0 - 0.1 K/cumm [facility] Neutrophil pct 54.0 % [facility] Comment: Interpretive Data Percent cell count reference ranges are not reported, since discordance with absolute values may lead to misinterpretation of CBC data. Current Interpretive Data was last revised on 2017. Imm gran pct 0.4 % [facility] Comment: Interpretive Data Percent cell count reference ranges are not reported, since discordance with absolute values may lead to misinterpretation of CBC data. Current Interpretive Data was last revised on 2017. Lymphocyte pct 34.6 % [facility] Comment: Interpretive Data Percent cell count reference ranges are not reported, since discordance with absolute values may lead to misinterpretation of CBC data. Current Interpretive Data was last revised on 2017. Monocyte pct 7.7 % [facility] Comment: Interpretive Data Percent cell count reference ranges are not reported, since discordance with absolute values may lead to misinterpretation of CBC data. Current Interpretive Data was last revised on 2017. Eosinophil pct 2.5 % [facility] Comment: Interpretive Data Percent cell count reference ranges are not reported, since discordance with absolute values may lead to misinterpretation of CBC data. Current Interpretive Data was last revised on 2017. Basophil pct 0.8 % [facility] Comment: Interpretive Data Percent cell count reference ranges are not reported, since discordance with absolute values may lead to misinterpretation of CBC data. Current Interpretive Data was last revised on 2017. Blood 10/01/2021 4:09 PM FIRER WATERTENDER 10/01/2021 4:14 PM FIRER WATERTENDER Maya MAURICE LAB BLOOD ORDERABLES Final Resul t Performing Organization Address [facility] Co de Phone Number [address] [address] * Antibody screen (10/01/2021 4:09 PM FIRER WATERTENDER) Destiny, indirect, Gel Interpretation Negative ABSC [facility] Blood 10/01/2021 4:09 PM FIRER WATERTENDER 10/01/2021 4:14 PM FIRER WATERTENDER Narrative [facility] - 10/01/2021 5:03 PM FIRER WATERTENDER Has the patient had Daratumumab or Isatuximab in the past 6 months?->Unknown Result [facility] Maya MAURICE LAB BLOOD BANK TEST ORDERABLES F inal Result Performing Organization Address [facility] Co de Phone Number [address] [address] * ABO/Rh (10/01/2021 4:09 PM FIRER WATERTENDER) ABO/Rh O Negative [facility] Blood 10/01/2021 4:09 PM FIRER WATERTENDER 10/01/2021 4:14 PM FIRER WATERTENDER Narrative [facility] - 10/01/2021 5:03 PM FIRER WATERTENDER Has the patient had Daratumumab or Isatuximab in the past 6 months?->Unknown Maya MAURICE LAB BLOOD BANK TEST ORDERABLES F inal Result Performing Organization Address City/[facility]/ZIP Co de Phone Number [facility] [address] * aPTT (10/01/2021 4:09 PM FIRER WATERTENDER) [facility] aPTT 32 22 - 37 sec ALICIA Comment: Interpretive data aPTT test has not been evaluated for monitoring heparin therapy. The anti-Xa is the preferred test. Current interpretive data was last revised on 2019. Blood 10/01/2021 4:09 PM FIRER WATERTENDER 10/01/2021 4:14 PM FIRER WATERTENDER Maya MAURICE LAB BLOOD ORDERABLES Final Resul t Performing Organization Address [facility] Co de Phone Number [address] [address] * Protime-INR (10/01/2021 4:09 PM FIRER WATERTENDER) [facility] PT 13.3 12.0 - 14.6 sec [facility] INR 1.0 0.9 - 1.2 [facility] Comment: Ref Range High Interpretive data Oral anticoagulant therapeutic ranges: Venous thromboembolism prophylaxis or treatment: 2.0-3.0 CARDIOLOGY Standard range: 2.0-3.0 High-intensity range: 2.5-3.5 Refer to indication-specific guidelines for appropriate target ranges for prosthetic heart valve replacement. Current interpretive data was last revised on 2019. Blood 10/01/2021 4:09 PM FIRER WATERTENDER 10/01/2021 4:14 PM FIRER WATERTENDER Maya MAURICE LAB BLOOD ORDERABLES Final Resul t Performing Organization Address City/[facility] Co de Phone Number [address] [address] * hCG, blood, quantitative (10/01/2021 4:09 PM FIRER WATERTENDER) [facility] hCG, quant <0.1 0.0 - 5.0 IUnits/L [facility]ICIA Comment: Interpretive Data Non- Female premenopausal: < or = 5.0 IUnits/L Men: < 5.0 IUnits/L Weeks of Gestation ? Reference Interval ?? 3 to 6 ? 5.8-31,795 IUnits/L ?? 7 to 10 ? 3,697-186,977 IUnits/L ??12 to 15 ?27,832- 70,791 IUnits/L ??16 to 18 ? 9,040- 58,179 IUnits/L Current Interpretive Data was last revised on 2018. Blood 10/01/2021 4:09 PM FIRER WATERTENDER 10/01/2021 4:14 PM FIRER WATERTENDER us Maya MAURICE LAB BLOOD ORDERABLES Edited Resu lt - Final [facility] [address] [facility] Department of Laboratories [place], [place] [id number] * Comprehensive metabolic panel (10/01/2021 4:09 PM FIRER WATERTENDER) Sodium 140 135 - 145 mmol/L [facility] Potassium, pl 4.1 3.3 - 4.9 mmol/L [facility] Chloride 105 97 - 110 mmol/L [facility] CO2 24 22 - 32 mmol/L [facility] Anion gap 11 2 - 15 mmol/L [facility] BUN 10 8 - 25 mg/dL [facility] Creatinine 0.60 0.60 - 1.10 mg/dL [facility] Glucose 104 70 - 199 mg/dL [facility] Comment: Interpretive Data Fasting glucose >/= 126 mg/dl is diagnostic for diabetes. ?? Fasting is defined as no caloric intake for at least 8 hours. Fasting glucose between 100 mg/dl to 125 mg/dl is diagnostic of prediabetes. In a patient with classic symptoms of hyperglycemia or hyperglycemic crisis, a random glucose >/= 200 mg/dl is diagnostic for diabetes. In the absence of unequivocal hyperglycemia, results should be confirmed by repeat testing. The classification and Diagnosis of Diabetes Diabetes Care 2017;40 (Suppl. 1):S11. Current interpretive data was last revised 2017. Calcium 9.0 8.5 - 10.3 mg/dL [facility] Bilirubin, total 0.3 0.1 - 1.2 mg/dL [facility] Protein, pl 6.5 6.5 - 8.5 g/dL [facility] Albumin 3.7 3.5 - 5.0 g/dL [facility] Alk phos 60 40 - 130 Units/L [facility] ALT 11 7 - 45 Units/L [facility] AST 15 10 - 45 Units/L [facility] Blood 10/01/2021 4:09 PM FIRER WATERTENDER 10/01/2021 4:14 PM FIRER WATERTENDER Maya MAURICE LAB BLOOD ORDERABLES Final Resul t [facility] [address] [facility] Department [place] [address] * CBC with auto differential (10/01/2021 4:09 PM FIRER WATERTENDER) [facility] WBC 7.5 3.8 - 9.9 K/cumm [facility] Hgb 12.6 11.9 - 15.5 g/dL [facility] Hct 37.2 35.6 - 45.5 % [facility] Plt 278 150 - 400 K/cumm [facility] MPV 10.0 9.1 - 12.3 fL [facility] RBC 4.03 3.90 - 5.20 M/cumm [facility] MCV 92.3 81.3 - 96.4 fL [facility] MCH 31.3 27.1 - 33.3 pg [facility] MCHC 33.9 32.3 - 35.7 g/dL [facility] RDW CV 12.8 11.1 - 14.9 % [facility] RDW SD 43.5 35.7 - 48.1 fL [facility] NRBC abs 0.00 0.00 - 0.01 K/cumm [facility] Blood 10/01/2021 4:09 PM FIRER WATERTENDER 10/01/2021 4:14 PM FIRER WATERTENDER Maya MAURICE LAB BLOOD ORDERABLES Final Resul t ALICIA [address] [facility] Department [place] [address] documented in this encounter Visit Diagnoses Diagnosis SVT (supraventricular tachycardia) (HCC)- Primary Other specified cardiac dysrhythmias DUB (dysfunctional uterine bleeding) Other disorder of menstruation and other abnormal bleeding from female genital tract documented in this encounter Administered Medications Inactive Administered Medications - up to 3 most recent administrations Medication Order MAR Action Action Date Dose Rate Site sodium chloride 0.9% 0.9% infusion - ADS Override Pull Starting on Wed10/01/21 at 1649, For 1 dose, Created by cabinet override sodium chloride 0.9% bolus 1,000 mL 1,000 mL, intravenous, at 1,000 mL/hr, Administer over 1 Hours, Once, On Wed10/01/21 at 1655, For 1 dose New Bag 10/01/2021 4:54 PM FIRER WATERTENDER 1,000 mL 1000 mL/hr documented in this encounter Active and Recently Administered Medications Times are shown in FIRER WATERTENDER. Scheduled Medication Order 09/29/2021 09/30/2021 10/01/2021 sodium chloride 0.9% bolus 1,000 mL (COMPLETED) 1,000 mL, intravenous, at 1,000 mL/hr, Administer over 1 Hours, Once, On Wed10/01/21 at 1655, For 1 dose 1654 (New Bag - Prov ider: Gigi Rosales, JENNIFER)1850 (Stopped - Provider: Phyllis Hansen RN) documented in this encounter Orders Medications Ordered That Joaquin ht Not Have Been Administered Count Last Ordered Date First Ordered Date sodium chloride 0.9% bolus 1,000 mL 2 10/01 documented in this encounter Care Teams Pediatric Rn Relationship Specialty Start Date End Date Baldomero Dominguez MD PCP - General 01/07/17 Jaciel Melo MD Telecommunications Cable Jointer Cardiovascular Disease 04/12/19 2 documented as of this encounter
--- OUTSIDE RECORDS SUMMARY | 2024-07-11 07:15 | XMS_ITS | Encounter Summary ---
Author Organization [facility] Address [address] [facility] [place] [address] Care Team Providers Care Senior Policy Advisor Name Role Phone Baldomero Dominguez MD Primary Care Provider [phone] Jaciel Melo MD Unavailable Encounter Details Date Type Department Care Team (Late st Contact Info) Description 10/02/2021 Telephone [facility] Obstetrical Gynecology [address] [phone] Lei Otto MD [address] [address] Social History Tobacco Use Types Packs/Day Years Used Date Smoking Tobacco: Never Smokeless Tobacco: Never Alcohol Use Standard Drinks/Week Comments Yes 0 (1 standard drink = 0.6 oz pur e alcohol) occasional wine Comments No Sex and Gender Information Value Date Recorded Sex Assigned at Not on file Legal Sex Female 1:19 PM DOG BREEDER Gender Identity Not on file Sexual Orientation Not on file documented as of this encounter Miscellaneous Notes * Telephone Encounter - Deloris Zhou RN - 10/03/2021 12:04 PM DOG BREEDER Patient notified. BREEDER * Telephone Encounter - Patrick Sánchez MD - 10/03/2021 11:58 AM DOG BREEDER I'll call in a Provera course for her. I cannot restrict her being able to work - that is up to her. Gonzalo BREEDER * Telephone Encounter - Deloris Zhou RN - 10/03/2021 11:55 AM DOG BREEDER She is wondering if she needs to be off work or if there is something she can take to help the bleeding. States it is really heavy when she is on her feet and moving around. BREEDER * Telephone Encounter - Patrick Sánchez MD - 10/03/2021 11:19 AM DOG BREEDER What is she wanting? I dont really have any recs at this time till I see her. Gonzalo BREEDER * Telephone Encounter - Deloris Zhou RN - 10/03/2021 10:07 AM DOG BREEDER Please advise. BREEDER * Telephone Encounter - Deloris Zhou RN - 10/03/2021 10:04 AM DOG BREEDER Patient notified. 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 Please advise. BREEDER * Telephone Encounter - Patrick Sánchez MD - 10/03/2021 9:50 AM DOG BREEDER US reuslts: - endometrial polyp - likely cause of postmenopausal bleeding - will recommend D&C when see herfor f/u. - bilateral small ovarian cysts <2cm - would recommend surveillance with f/u US in 3-6mo in absence of any other symptoms - will discuss when see her for f/u. Gonzalo BREEDER * Telephone Encounter - Deloris Zhou RN - 10/03/2021 9:40 AM CST Patient scheduled with you 10/13. Asking for TVUS results. Please advise. BREEDER * Telephone Encounter - Deloris Zhou RN - 10/02/2021 1:13 PM CST Soonest available with Dr. Sánchez. Patient scheduled will notify her with US results when they are released. BREEDER * Telephone Encounter - Deloris Zhou RN - 10/02/2021 11:08 AM DOG BREEDER Patient will call back with US appointment to make an appointment with Dr. Villasenor to F/U. BREEDER * Telephone Encounter - Deloris Zhou RN - 10/02/2021 11:01 AM DOG BREEDER Order placed and patient notified. BREEDER * Telephone Encounter - Lei Otto MD - 10/02/2021 10:58 AM DOG BREEDER Please get a pelvic ultrasound ordered to be done at the hospital, and an appointment with Dr. Villasenor within the next week or so. BREEDER * Telephone Encounter - Deloris Zhou RN - 10/02/2021 9:02 AM CST Patient c/o AUB. Went to [facility] yesterday see note. They advised her to see Dr. Villasenor (she has not seen him since 2016) for an TVUS and exam. Ok to order US? She is worried about bleeding through pads/tampons and having to wait for an appointment. Patient currently has [employer] insurance.Please advise. BREEDER BREEDER documented in this encounter Plan of Treatment Not on file documented as of this encounter Visit Diagnoses Diagnosis Abnormal uterine bleeding- Primary Unspecified disorder of menstruation and other abnormal bleeding from female genital tract documented in this encounter Care Teams Senior Policy Advisor Relationship Specialty Start Date End Date Baldomero Dominguez MD PCP - General 01/07/17 Jacile Melo MD Water Resources Project Manager Cardiovascular Disease 04/12/19 2 documented as of this encounter
--- OUTSIDE RECORDS SUMMARY | 2024-07-11 07:15 | XMS_ITS | Encounter Summary ---
Author Organization [facility] Healthcare Address [address] [place] [address] Care Team Providers Care Seasoner Name Role Phone Baldomero Dominguez MD Primary Care Provider Jaciel Melo MD Unavailable [phone] Reason for Referral * Diagnostic Imaging (Routine) - Closed Specialty Diagnoses / Procedures Referred By Vianca montiel Referred To Contact Diagnoses Left knee pain Procedures XR Knee Left 3 Views Ubaldo Chi MD [address] [place] [address] Phone: tel: fax: [address] [phone] Referral ID Status Reason Start Date Expiration Date Visits Re quested Visits Authorized [id number] Closed 09/19/2021 10/19/2022 1 1 KDOWN MAN * Diagnostic Imaging (Routine) - Closed Specialty Diagnoses / Procedures Referred By Vianca montiel Referred To Contact Diagnoses Left hip pain Procedures XR Hip Left 2 or 3 Views Ubaldo Chi MD [address] [place] [address] Phone: tel: fax: [address] [phone] Referral ID Status Reason Start Date Expiration Date Visits Re quested Visits Authorized [id number] Closed 09/19/2021 10/19/2022 1 1 KDOWN MAN Reason for Visit * Diagnostic Imaging (Routine) - Closed Specialty Diagnoses / Procedures Referred By Vianca t Referred To Contact Diagnoses Left hip pain Procedures XR Hip Left 2 or 3 Views Ubaldo Chi MD [address] [place] [address] Phone: tel: fax: [address] [phone] Referral ID Status Reason Start Date Expiration Date Visits Re quested Visits Authorized [id number] Closed 09/19/2021 10/19/2022 1 1 Encounter Details Date Type Department Care Team (Latest Contact Info) Description 09/19/2021 9:25 AM KNOCKDOWN MAN - 09/19/2021 11:59 PM KNOCKDOWN MAN Hospital Encounter [facility] Diagnostic Imaging [address] [place] [address] Left hip pain; Left knee pain Discharge Disposition: Discharge to home or self care Social History Tobacco Use Types Packs/Day Years Used Date Smoking Tobacco: Never Smokeless Tobacco: Never Alcohol Use Standard Drinks/Week Comments Yes 0 (1 standard drink = 0.6 oz pur e alcohol) occasional wine Comments No Sex and Gender Information Value Date Recorded Sex Assigned at Not on file Legal Sex Female 1:19 PM KNOCKDOWN MAN Gender Identity Not on file Sexual Orientation Not on file documented as of this encounter Medications at Time of Discharge multivit [id number]-[id number] lcium (THERA-M) 9 mg iron-400 mcg tablet [...] a day Patient will start dose 11/26 0 12/03/19 23 docusate sodium (COLACE) 100 [...] for up to 15 doses 15 tablet 12/23/202 0 11/26/19 22 oxyCODONE (ROXICODONE) 5 mg [...] Name Priority Date/Time Associated Diagnosis Comments XR KNEE LEFT 3 VIEWS Schedule Routine, Read Routine (OP Routine) 09/19/2021 10:00 AM KNOCKDOWN MAN Left knee pain XR HIP LEFT 2 OR 3 VIEWS Schedule Routine, Read Routine (OP Routine) 09/19/2021 10:00 AM KNOCKDOWN MAN Left hip pain documented in this encounter Results * XR Knee Left 3 Views (09/19/2021 10:00 AM KNOCKDOWN MAN) Anatomical Region Laterality Modality Lower Extremities, Knee Left Computed Radiography 09/19/2021 12:0 6 PM KNOCKDOWN MAN Narrative 09/19/2021 12:08 PM KNOCKDOWN MAN EXAM DESCRIPTION: ? XR KNEE LEFT 3 VIEWS REASON FOR STUDY: ?? Left knee pain ?? Patient c/o posterior bruising pain in left hip, and anterior bruising pain in anterior knee. Patient stated she had a fall 09/18/2021 and has felt pain since. ?? Patient c/o posterior bruising pain in left hip, and bruising pain in anterior knee. Patient stated she had a fall 09/18/2021 and has felt pain since. ? TECHNIQUE: ?? 3 ??radiographic views acquired of the left knee. COMPARISON: ?? No comparisons FINDINGS: BONES/JOINTS: ?? No acute fracture. ??No suspicious osseous lesions. ??There is moderate to severe medial compartment joint space narrowing. ??Moderate medial compartment osteophytes and small osteophytes in the lateral compartment. ?? SOFT TISSUES: ?? Soft tissue swelling which could be due to contusion or in other cause. OTHER: ?? No other significant finding. IMPRESSION: ??No acute fracture. ??Moderate medial compartment and mild lateral patellofemoral compartment knee joint osteoarthritis. Possible soft tissue contusions. THIS IS AN ELECTRONICALLY VERIFIED FINAL REPORT 09/19/2021 12:08 PM - Electronically signed by ??Sina Floyd M.D. TRI D: ??09/19/2021 12:08 PM T: Report ID: [id number] Reading Location: ??[id number] Procedure Note Sina Floyd MD - 09/19/2021 EXAM DESCRIPTION: XR KNEE LEFT 3 VIEWS REASON FOR STUDY: Left knee pain Patient c/o posterior bruising pain in left hip, and anterior bruisingpain in anterior knee. Patient stated she had a fall 09/18/2021 and has felt pain since. Patient c/o posterior bruising pain in left hip, and bruisingpain in anterior knee. Patient stated she had a fall 09/18/2021 and has felt pain since. TECHNIQUE: 3 radiographic views acquired of the left knee. COMPARISON: No comparisons FINDINGS: BONES/JOINTS: No acute fracture. No suspicious osseous lesions. Thereis moderate to severe medial compartment joint space narrowing. Moderatemedial compartment osteophytes and small osteophytes in the lateral compartment. SOFT TISSUES: Soft tissue swelling which could be due to contusion or in other cause. OTHER: No other significant finding. IMPRESSION: No acute fracture. Moderate medial compartment and mild lateral patellofemoral compartment knee joint osteoarthritis. Possible soft tissue contusions. THIS IS AN ELECTRONICALLY VERIFIED FINAL REPORT 09/19/2021 12:08 PM - Electronically signed by Sina Floyd M.D. TRI T: Report ID: [id number] Reading Location: [id number] Ubaldo Chi MD IMG XR PROCEDURES Final Result * XR Hip Left 2 or 3 Views (09/19/2021 10:00 AM KNOCKDOWN MAN) Anatomical Region Laterality Modality Lower Extremities, Hip, Pelvis Left C omputed Radiography 09/19/2021 12:0 4 PM KNOCKDOWN MAN Narrative 09/19/2021 12:06 PM KNOCKDOWN MAN EXAM DESCRIPTION: ?? XR HIP LEFT 2 OR 3 VIEWS REASON FOR STUDY: ?? Left hip pain ?? Patient c/o posterior bruising pain in left hip, and bruising pain in anterior knee. Patient stated she had a fall 09/18/2021 and has felt pain since. ? TECHNIQUE: ?? AP and frog-leg/cross-table lateral ??view of the left hip. COMPARISON: ?? No comparisons FINDINGS: BONES/JOINTS: ?? No acute fracture, malalignment or osseous abnormalities. ? Joint spaces are maintained. SOFT TISSUES: ?? Unremarkable. OTHER: ?? No other significant finding. IMPRESSION: ??No acute osseous abnormality. THIS IS AN ELECTRONICALLY VERIFIED FINAL REPORT 09/19/2021 12:06 PM - Electronically signed by ??Sina BARTLETT D: ??09/19/2021 12:06 PM T: Report ID: [id number] Reading Location: ??[id number] Procedure Note Sina Floyd MD - 09/19/2021 EXAM DESCRIPTION: XR HIP LEFT 2 OR 3 VIEWS REASON FOR STUDY: Left hip pain Patient c/o posterior bruising pain in left hip, and bruising pain inanterior knee. Patient stated she had a fall 09/18/2021 and has felt pain since. TECHNIQUE: AP and frog-leg/cross-table lateral view of the left hip. COMPARISON: No comparisons FINDINGS: BONES/JOINTS: No acute fracture, malalignment or osseous abnormalities. Joint spaces are maintained. SOFT TISSUES: Unremarkable. OTHER: No other significant finding. IMPRESSION: No acute osseous abnormality. THIS IS AN ELECTRONICALLY VERIFIED FINAL REPORT 09/19/2021 12:06 PM - Electronically signed by Sina lFoyd M.D. TRI T: Report ID: [id number] Reading Location: [place] [address] Ubaldo Chi MD IMG XR PROCEDURES Final Result documented in this encounter Visit Diagnoses Diagnosis Left hip pain Pain in joint, pelvic region and thigh Left knee pain Pain in joint, lower leg documented in this encounter Care Teams Seasoner Relationship Specialty Start Date End Date Baldomero Dominguez MD PCP - General 01/07/17 Jaciel Melo MD Bell Cleaner Cardiovascular Disease 04/12/19 2 documented as of this encounter
--- OUTSIDE RECORDS SUMMARY | 2024-07-11 07:16 | XMS_ITS | Encounter Summary ---
Author Organization [facility] Healthcare Address [address] [place] [address] Care Team Providers Care Vessel Ordinary Seaman Name Role Phone Baldomero Dominguez MD Primary Care Provider [phone] Jaciel Melo MD Unavailable [phone] Encounter Details Date Type Department Care Team (Late st Contact Info) Description 05/13/2021 4:40 PM CDT Lab [address] [address] Fever, unspecified fever cause Social History Tobacco Use Types Packs/Day Years Used Date Smoking Tobacco: Never Smokeless Tobacco: Never Alcohol Use Standard Drinks/Week Comments Yes 0 (1 standard drink = 0.6 oz pur e alcohol) occasional wine Comments No Sex and Gender Information Value Date Recorded Sex Assigned at Not on file Legal Sex Female 1:19 PM ADMINISTRATIVE TECH Gender Identity Not on file Sexual Orientation Not on file documented as of this encounter Plan of Treatment Not on file documented as of this encounter Procedures Procedure Name Priority Date/Time Associated Diagnosis Comments COVID-19 CORONAVIRUS RNA Routine 05/13/2021 2:07 PM CDT Fever, unspecified fever cause documented in this encounter Results * COVID-19 Coronavirus RNA Oropharynx (05/13/2021 2:07 PM CDT) COVID-19 RNA Not Detected ALICIA MORELAND Comment: Interpretive Data Synonyms for this test include: PCR and NAAT . ??Testing performed by the [facility] Molecular Infectious Disease Laboratory. The 2019-Novel Coronavirus [...] was last revised on August 29, 2020. Employeed in healthcare? Yes ALICIA STANTON status? No [facility] Group care resident? No [facility] Hospitalized? No [facility] Is patient in ICU? No [facility] Symptomatic as defined by CDC? Yes [facility] Oropharynx 05/13/2021 2:07 PM CDT 05/13/2021 5:30 PM CDT Narrative [facility] - 05/13/2021 10:04 PM CDT Patient is employed by/enrolled at:->[employer] What is the reason for testing?->Symptoms of COVID-19 in low-risk group (batch) Date of Symptom Onset->05/10/21 Dedra López MD LAB MICROBIOLOGY - GENERAL ORDERABLES Final Result [facility]IA [facility] Department [place] [address] documented in this encounter Visit Diagnoses Diagnosis Fever, unspecified fever cause documented in this encounter Additional Health Concerns Infection Onset Date Last Indicated Resolved Time COVID: Suspected 05/13/2021 05/13/2021 05/13/2021 10:05 PM CDT documented as of this encounter Care Teams Vessel Ordinary Seaman Relationship Specialty Start Date End Date Baldomero Dominguez MD PCP - General 01/07/17 Jaciel Melo MD Disaster Or Damage Control Specialist Cardiovascular Disease 04/12/19 2 documented as of this encounter
--- OUTSIDE RECORDS SUMMARY | 2024-07-11 07:16 | XMS_ITS | Encounter Summary ---
Author Organization [facility] Healthcare Address [address] [place] [address] Care Team Providers Care Train Caller Name Role Phone Baldomero Dominguez MD Primary Care Provider [phone] Jaciel Melo MD Unavailable [phone] Encounter Details Date Type Department Care Team (Late st Contact Info) Description 07/09/2021 Telephone [facility] Healthcare Occupatiuonal Health [address] [facility] [address] (Third Floor) [place] [address] Mana Koenig RN Social History Tobacco Use Types Packs/Day Years Used Date Smoking Tobacco: Never Smokeless Tobacco: Never Alcohol Use Standard Drinks/Week Comments Yes 0 (1 standard drink = 0.6 oz pur e alcohol) occasional wine Comments No Sex and Gender Information Value Date Recorded Sex Assigned at Not on file Legal Sex Female 1:19 PM MACHINIST Gender Identity Not on file Sexual Orientation Not on file documented as of this encounter Miscellaneous Notes * Telephone Encounter - Mana Koenig RN - 07/09/2021 10:16 AM MACHINIST COVID19 test order placed. Asymptomatic. Public health required testing due to exposure. INIST documented in this encounter Plan of Treatment Not on file documented as of this encounter Visit Diagnoses Diagnosis Exposure to COVID-19 virus- Primary documented in this encounter Care Teams Train Caller Relationship Specialty Start Date End Date Baldomero Dominguez MD PCP - General 01/07/17 Jaciel Melo MD Engineering Lecturer Cardiovascular Disease 04/12/19 2 documented as of this encounter
--- OUTSIDE RECORDS SUMMARY | 2024-07-11 07:17 | XMS_ITS | Encounter Summary ---
Author Organization [facility] Healthcare Address [address] [place] [address] Care Team Providers Care Manager Of Disaster Recovery Name Role Phone Baldomero Dominguez MD Primary Care Provider [phone] Jaciel Meol MD Unavailable [phone] Reason for Visit * Reason Onset Date Comments COVID-19 EVALUATION 05/13/2021 Encounter Details Date Type Department Care Team (Late st Contact Info) Description 05/13/2021 Telephone [facility] Healthcare Occupatiuonal Health [address] [facility] [address] (Third Floor) [place] [address] Ladi Butt RN COVID-19 EVALUATION Social History Tobacco Use Types Packs/Day Years Used Date Smoking Tobacco: Never Smokeless Tobacco: Never Alcohol Use Standard Drinks/Week Comments Yes 0 (1 standard drink = 0.6 oz pur e alcohol) occasional wine Comments No Sex and Gender Information Value Date Recorded Sex Assigned at Not on file Legal 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 - No No Yes Yes Email: [email or web address] ID# [id number] - [id number] Are you an employee or student? 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 On-site On-site - On-site On-site Have you been tested for Covid-19 previously? Yes Yes - Yes Yes Have you ever had a positive COVID-19 swab or saliva test? No No - Yes Yes What was the date of your most recent positive test? - - - (No Data) (No Data) What was the date of your most recent positive test? - - - September What was the date of your most recent negative test? 05/10/2020 07/13/2020 - - - Have you been vaccinated against COVID-19? - No - Yes Yes Who provided the vaccine: - - - Other (specify) Other (specify) Date of first vaccine dose: - - - 04/18/2021 04/18/2021 Date of second vaccine dose: - - - 05/09/2021 05/09/2021 Date of Second Covid Vaccine - - - 1100 - Have you had a known, specific COVID exposure within the last 14 days? Yes No - No No Did the exposure take place at work / on campus? Yes - - - - Have you contacted your Occupational Health office or Student Health Services? No - - - - Contact Occupational Health Comment not open on the weekend - - - - Was your exposure to a patient, coworker or visitor Patient - - - - Date of exposure: 06/08/2020 - - - - Name of the COVID-19 positive person to whom you were exposed: employee does not know patient name-[address] - - - - Was the person to whom you were exposed wearing a mask/face covering? No - - - - Date of the COVID-19 test for the person to whom you were exposed: 06/08/2020 - - - - Test result of the person to whom you were exposed: Positive - - - - What PPE was employee wearing? Mask;Gloves - - - - Description of exposure: employee went into patient room X 2 to draw blood- patient's room and patient was not properly identified - - - - Employee Symptoms: No Yes - Yes Yes Date of employee symptom onset: - 09/26/2020 - 05/10/2021 05/10/2021 Date of Symptoms Comment - - - onset at 10pm - Description of Symptoms: - Fever;Cough;Joint Aches;Muscle Aches;Other;New Diarrhea - Fever;Muscle Aches;New Diarrhea;Other New Diarrhea;Fever;Other;Trouble Breathing Temperature: - 101 - 101 101 Other Symptoms: - fatigue, loss of appetite, scratchy throat - headache; arm tenderness; nausea; upset stomach chills, headache Did you have symptoms at work? - No - No No Date symptoms started: - 09/26/2020 - 05/10/2021 - Date last worked: - 09/24/2020 - 04/09/2021 03/27/2021 Do you currently live with, or have ongoing contact with, someone known or suspected to have COVID-19? No No - No No Exposure Risk (See Exposure Guide): Significant Exposure No known or low risk exposure - No known or low risk exposure No known or low risk exposure Assessment: Asymptomatic, occupational exposure Symptomatic, unknown exposure - - Symptomatic, unknown exposure Plan: (B) Work with mask and active symptom monitoring (A) Stay home and test for symptoms - (F) Vaccine Reaction - Defer testing (A) Stay home and test for symptoms Testing Site Location: - [facility] Notes: - Patient had seen PCP who recommended testing however did not order testing for the patient- EE has been off work because she did not meet the COVID-19 vaccine requirement. EE rec'vd dose 2 on 05/09/21 at approx 1100 and starting developing vaccine response symptoms on 05/10 at approx 2200Employee's symptoms have continued >48 hours after recieving the vaccine. Will test employee at this time. Employee requests OP swab, states last time she was swabbed her nose bled afterwards. Cannot order flu test, only Covid test can be OP swab. Patient referred by Occupational Health for Covid-19 testing. Script A0 (Stay home and test) for symptomatic, exposed HCW, symptomatic, unexposed Non-HCW or Vaccinated Non-HCW Given your symptoms, you should not come to work and will be referred for combined COVID/Influenza testing. If you have had a COVID infection in the past 4 months, you will be tested for influenza only. ??? Please go to the employee testing site at [place] 05/13/2021. ??? While you are awaiting testing and results, you must remain off work. ??? While waiting for results, home quarantine guidance still applies. You should isolate yourself at home, avoid contact with any household members as much as possible, and stay in your home withoutleaving except for medical care. If your symptoms worsen, please call back or call 911 - let your providers, ER or EMS know that you are being tested for COVID-19. ??? Once your results are back, you will receive further instruction from Occupational Health. Don't return to work until you hear from [facility]. Occupational Health will notify you and your manager harbor when you can return to work. ??? Should your test result positive, [facility] will work with you to identify any close contacts you may have had at work. [facility] will then alert your work contacts directly; you do not have to. Your medical billing supervisor should consult with [facility] if they have any questions and before any communication with coworkers about a positive test. [facility] will help ensure that coworkers potentially at risk are notified and given appropriate advice without unnecessary disclosure of personal health information. ??? We will send you an email with self-quarantine instructions (see [facility] Guidance for At-Home Isolation: Employees). ??? You must follow any additional isolation or quarantine instructions provided to you from federal, state or local public health authorities. ??? You should let your medical billing supervisor know that you will not be coming to work. Although the Call Center will email your medical billing supervisor to confirm that you have been instructed not to come to work, it is still your responsibility to notify your medical billing supervisor as you would for any other work absence. You should receive an email from the call center with these instructions. The email will come from [email or web address]; if you do not receive it, please check to see if your email gravity prospecting observer helper has automatically routed it to [facility]. documented in this encounter Plan of Treatment Not on file documented as of this encounter Results * COVID-19 Coronavirus RNA Oropharynx (05/13/2021 2:07 PM CDT) COVID-19 RNA Not Detected [facility] Comment: Interpretive Data Synonyms for this test include: PCR and NAAT . ??Testing performed by the [facility] Molecular Infectious Disease Laboratory. The 2019-Novel Coronavirus [...] 29, 2020. Employeed in healthcare? Yes ALICIA MORELAND status? No ALICIA STANTON Group care resident? No ALICIA MORELAND Hospitalized? No ALICIA MORELAND Is patient in ICU? No ALICIA MORELAND Symptomatic as defined by CDC? Yes ALICIA STANTON Oropharynx 05/13/2021 2:07 PM CDT 05/13/2021 5:30 PM CDT Narrative [facility] - 05/13/2021 10:04 PM CDT Patient is employed by/enrolled at:->[facility] [employer] [facility] What is the reason for testing?->Symptoms of COVID-19 in low-risk group (batch) Date of Symptom Onset->05/10/21 Dedra López MD LAB MICROBIOLOGY - GENERAL ORDERABLES Final Result [facility] Department [place] [address] documented in this encounter Visit Diagnoses Diagnosis Fever, unspecified fever cause- Primary Fever, unspecified fever cause documented in this encounter Additional Health Concerns Infection Onset Date Last Indicated Resolved Time COVID: Suspected 05/13/2021 05/13/2021 05/13/2021 10:05 PM CDT documented as of this encounter Care Teams Manager Of Disaster Recovery Relationship Specialty Start Date End Date Baldomero Dominguez MD PCP - General 01/07/17 Jaciel Melo MD Precision Inspector Cardiovascular Disease 04/12/19 2 documented as of this encounter
--- OUTSIDE RECORDS SUMMARY | 2024-07-11 07:20 | XMS_ITS | Encounter Summary ---
Author Organization [facility] Address [address] [place] [address] Phone Care Team Providers Care Machine Riveter Name Role Phone Baldomero Dominguez MD Primary Care Provider [phone] Jaciel Melo MD Unavailable [phone] Encounter Details Date Type Department Care Team (Late st Contact Info) Description 03/11/2021 Telephone [facility] Neuro Sleep [address] [place] [address] Raquel Stephens RMA Social History Tobacco Use Types Packs/Day Years Used Date Smoking Tobacco: Never Smokeless Tobacco: Never Alcohol Use Standard Drinks/Week Comments Yes 0 (1 standard drink = 0.6 oz pur e alcohol) occasional wine Comments No Sex and Gender Information Value Date Recorded Sex Assigned at Not on file Legal Sex Female 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 She expressed displeasure that she has left several messages without a call back. documented in this encounter Plan of Treatment Not on file documented as of this encounter Visit Diagnoses Not on filedocumented in this encounter Care Teams Machine Riveter Relationship Specialty Start Date End Date Baldomero Dominguez MD PCP - General 01/07/17 Jaciel Melo MD Elastic Attacher Chainstitch Cardiovascular Disease 04/12/19 2 documented as of this encounter
--- OUTSIDE RECORDS SUMMARY | 2024-07-11 07:20 | XMS_ITS | Encounter Summary ---
Author Organization [facility] Healthcare Address [address] [place] [address] Care Team Providers Care Tongue Binder Name Role Phone Baldomero Dominguez MD Primary Care Provider [phone] Jaciel Melo MD Unavailable [phone] Encounter Details Date Type Department Care Team (Late st Contact Info) Description 03/25/[address] 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 Gender Identity Not on file Sexual Orientation Not on file documented as of this encounter Miscellaneous Notes * Addendum Note - Annabelle Santos - 03/28/2021 11:47 AM CDTAddended by: ANNABELLE SANTOS on: 03/28/2021 11:47 AM Modules accepted: Orders * Addendum Note - Ashleigh Manley MA - 03/28/2021 11:30 AM CDTAddended by: ASHLEIGH MANLEY on: 03/28/2021 11:30 AM Modules accepted: Orders * Addendum Note - Ashleigh Manley MA - 03/28/2021 11:20 AM CDTAddended by: ASHLEIGH MANLEY on: 03/28/2021 11:20 AM Modules accepted: Orders * Telephone Encounter - Lindsey Drew RN - 03/25/2021 4:10 PM CDT COVID19 test order placed. Asymptomatic. Public health required testing due to exposure. documented in this encounter Plan of Treatment Not on file documented as of this encounter Visit Diagnoses Diagnosis At increased risk of exposure to COVID-19 virus- Primary documented in this encounter Care Teams Tongue Binder Relationship Specialty Start Date End Date Baldomero Dominguez MD PCP - General 01/07/17 Jaciel Melo MD Incendiary Powder Mixer Cardiovascular Disease 04/12/19 2 documented as of this encounter
--- OUTSIDE RECORDS SUMMARY | 2024-07-11 07:20 | XMS_ITS | Encounter Summary ---
Author Organization [facility] Healthcare Address [address] [place] [address] Care Team Providers Care Huc Name Role Phone Baldomero Dominguez MD Primary Care Provider [phone] Jaciel Melo MD Unavailable [phone] Reason for Visit * Reason Onset Date Comments COVID-19 EVALUATION 03/28/2021 Encounter Details Date Type Department Care Team (Late st Contact Info) Description 03/28/2021 Telephone [facility] Healthcare Occupatiuonal Health [address] (Third Floor) [place] [address] Michelle Ortiz RN COVID-19 EVALUATION Social History Tobacco Use Types Packs/Day Years Used Date Smoking Tobacco: Never Smokeless Tobacco: Never Alcohol Use Standard Drinks/Week Comments Yes 0 (1 standard drink = 0.6 oz pur e alcohol) occasional wine Comments No Sex and Gender Information Value Date Recorded Sex Assigned at Not on file Legal Sex Female 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 Order placed for symptomatic testing already as the EE was at the testing site (order placed per Maria Dolores). documented in this encounter Plan of Treatment Not on file documented as of this encounter Results * COVID-19 Coronavirus RNA Nasopharyngeal (03/28/2021 1:06 PM CDT) COVID-19 RNA Not Detected [facility] Comment: Interpretive Data Synonyms for this test include: PCR and NAAT . ??Testing performed by the [facility] Molecular Infectious Disease Laboratory. The 2018-Novel Coronavirus Assay (COVID-19) Real Time RT-PCR assay [...] August 29, 2020. Employeed in healthcare? Yes [facility] status? No [facility] Group care resident? No [facility] Hospitalized? No [facility] Is patient in ICU? No [facility] Symptomatic as defined by CDC? Yes [facility] Nasopharyngeal 03/28/2021 1: 06 PM CDT 03/28/2021 5:53 PM CDT Narrative [facility] - 03/29/2021 2:16 AM CDT Patient is employed by/enrolled at:->[employer] What is the reason for testing?->Symptoms of COVID-19 in low-risk group (batch) Date of Symptom Onset->03/28/21 us Dedra López MD LAB MICROBIOLOGY - GENERAL ORDERABLES Final Result [facility] [place] [address] documented in this encounter Visit Diagnoses Diagnosis At increased risk of exposure to COVID-19 virus- Primary At increased risk of exposure to COVID-19 virus documented in this encounter Additional Health Concerns Infection Onset Date Last Indicated Resolved Time COVID: Suspected 03/28/2021 03/28/2021 04/11/2021 3:05 AM CDT documented as of this encounter Care Teams Huc Relationship Specialty Start Date End Date Baldomero Dominguez MD PCP - General 01/07/17 Jaciel Melo MD Canning Machine Operator Cardiovascular Disease 04/12/19 2 documented as of this encounter
--- OUTSIDE RECORDS SUMMARY | 2024-07-11 07:20 | XMS_ITS | Encounter Summary ---
Author Organization [facility] Address [address] [place] [address] Phone Care Team Providers Care Technical Communicator Name Role Phone Baldomero Dominguez MD Primary Care Provider Jaciel Melo MD Unavailable [phone] Encounter Details Date Type Department Care Team (Late st Contact Info) Description 03/10/2021 Telephone [facility] Neuro Sleep [address] [facility] [address] [facility] [address] [place] [address] Raquel Stephens RMA Social History Tobacco Use Types Packs/Day Years Used Date Smoking Tobacco: Never Smokeless Tobacco: Never Alcohol Use Standard Drinks/Week Comments Yes 0 (1 standard drink = 0.6 oz pur e alcohol) occasional wine Comments No Sex and Gender Information Value Date Recorded Sex Assigned at Not on file 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 Gender Identity Not on file Sexual Orientation Not on file documented as of this encounter Miscellaneous Notes * Telephone Encounter - Raquel Swanson RMA - 03/10/2021 1:57 PM CDT Request sent to [facility] rep for update * Telephone Encounter - Raquel Swanson RMA - 03/10/2021 1:57 PM CDT ----- Message from SHAYLA Webb sent [...] on filedocumented in this encounter Care Teams Technical Communicator Relationship Specialty Start Date End Date Baldomero Dominguez MD PCP - General 01/07/17 Jaciel Melo MD Behavioral Science Chair Cardiovascular Disease 04/12/19 2 documented as of this encounter
--- OUTSIDE RECORDS SUMMARY | 2024-07-11 07:23 | XMS_ITS | Encounter Summary ---
Author Organization [facility] Address [address] [place] [address] Phone Care Team Providers Care Engraver Picture Name Role Phone Baldomero Dominguez MD Primary Care Provider [phone] Jaciel Melo MD Unavailable Encounter Details Date Type Department Care Team (Late st Contact Info) Description 02/17/2021 Telephone [facility] Neuro Sleep [address] [facility] [address] [place] [address] Olga Grayson CMA Social History Tobacco Use Types Packs/Day Years Used Date Smoking Tobacco: Never Smokeless Tobacco: Never Alcohol Use Standard Drinks/Week Comments Yes 0 (1 standard drink = 0.6 oz pur e alcohol) occasional wine Comments No Sex and Gender Information Value Date Recorded Sex Assigned at Not on file Legal Sex Female 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 * Telephone Encounter - Olga Grayson CMA - 02/20/2021 1:28 PM CDT Can you please call the pt with sleep results. She is confused and stated that she was told by someone that she does not reach dream stage while sleeping. * Telephone Encounter - Olga Grayson CMA - 02/20/2021 11:00 AM CDT Received order, order and notes faxed via [employer] to [facility]. I have asked [facility] to expedite the order. * Telephone Encounter - Igor Rapp PA - 02/20/2021 10:32 AM CDT See new cpap order Thank you * Telephone Encounter - Olga Grayson CMA - 02/20/2021 10:20 AM CDT Pt. Never received cpap can you enter order for cpap. Pt urgently needs cpap. * Telephone Encounter - Olga Grayson CMA - 02/17/2021 9:45 AM CDT Pt left vm stating she never received a cpap, please enter the order for cpap I do not see an order. documented in this encounter Plan of Treatment Not on file documented as of this encounter Visit Diagnoses Not on filedocumented in this encounter Care Teams Engraver Picture Relationship Specialty Start Date End Date Baldomero Dominguez MD PCP - General 01/07/17 Jaciel Melo MD Analog Design Engineer Cardiovascular Disease 04/12/19 2 documented as of this encounter
--- OUTSIDE RECORDS SUMMARY | 2024-07-11 07:24 | XMS_ITS | Encounter Summary ---
Author Organization [facility] Healthcare Address [address] [place] [address] Care Team Providers Care Logging Rafter Laborer Name Role Phone Baldomero Dominguez MD Primary Care Provider [phone] Jaciel Melo MD Unavailable [phone] Encounter Details Date Type Department Care Team (Late st Contact Info) Description 09/28/2020 4:35 PM MANAGER WEB APPLICATION Lab [address] [address] Cough Social History Tobacco Use Types Packs/Day Years Used Date Smoking Tobacco: Never Smokeless Tobacco: Never Alcohol Use Standard Drinks/Week Comments Yes 0 (1 standard drink = 0.6 oz pur e alcohol) occasional wine Comments No Sex and Gender Information Value Date Recorded Sex Assigned at Not on file Legal Sex Female 1:19 PM MANAGER WEB APPLICATION Gender Identity Not on file Sexual Orientation Not on file documented as of this encounter Plan of Treatment Not on file documented as of this encounter Procedures Procedure Name Priority Date/Time Associated Diagnosis Comments COVID-19 CORONAVIRUS RNA Routine 09/28/2020 11:52 AM MANAGER WEB APPLICATION Cough documented in this encounter Results * COVID-19 Coronavirus RNA Nasopharyngeal (09/28/2020 11:52 AM MANAGER WEB APPLICATION) COVID-19 RNA Not Detected [facility] Comment: Interpretive Data Synonyms for this test include: PCR and NAAT . ??Testing performed by the [facility] Molecular Infectious Disease Laboratory. The 2018-Novel [...] August 29, 2020. Employeed in healthcare? Yes [facility] status? No [facility] Group care resident? No [facility] Hospitalized? No [facility] Is patient in ICU? No [facility] Symptomatic as defined by CDC? Yes [facility] Nasopharyngeal 09/28/2020 11 :52 AM MANAGER WEB APPLICATION 09/28/2020 7:35 PM MANAGER WEB APPLICATION Narrative [facility] - 09/29/2020 4:27 AM MANAGER WEB APPLICATION Patient is employed by/enrolled at:->[employer] What is the reason for testing?->Symptoms of COVID-19 in low-risk group, with concurrent influenza testing Date of Symptom Onset->09/26/20 Dedra López MD LAB MICROBIOLOGY - GENERAL ORDERABLES Final Result [facility] Department [place] [address] documented in this encounter Visit Diagnoses Diagnosis Cough documented in this encounter Additional Health Concerns Infection Onset Date Last Indicated Resolved Time COVID: Suspected 09/28/2020 09/28/2020 09/29/2020 4:28 AM MANAGER WEB APPLICATION documented as of this encounter Care Teams Logging Rafter Laborer Relationship Specialty Start Date End Date Baldomero Dominguez MD PCP - General 01/07/17 Jaciel Melo MD Burnisher Cardiovascular Disease 04/12/19 2 documented as of this encounter
--- OUTSIDE RECORDS SUMMARY | 2024-07-11 07:24 | XMS_ITS | Encounter Summary ---
Author Organization [facility] Address [address] [place] [address] Care Team Providers Care Log Cutter Name Role Phone Baldomero Dominguez MD Primary Care Provider [phone] Jaciel Melo MD Unavailable [phone] Encounter Details Date Type Department Care Team (Late st Contact Info) Description 02/17/2021 Orders Only [facility] Pulmonology [address] [place] [address] Cristina Sams LPN Social History Tobacco Use Types Packs/Day Years Used Date Smoking Tobacco: Never Smokeless Tobacco: Never Alcohol Use Standard Drinks/Week Comments Yes 0 (1 standard drink = 0.6 oz pur e alcohol) occasional wine Comments No Sex and Gender Information Value Date Recorded Sex Assigned at Not on file Legal Sex Female 1:19 PM TORPEDO SPECIALIST Gender Identity Not on file Sexual Orientation Not on file documented as of this encounter Progress Notes * Cristina Hamilton LPN - 02/17/2021 8:32 AM CDT covid testing ordered. documented in this encounter Plan of Treatment Not on file documented as of this encounter Visit Diagnoses Not on filedocumented in this encounter Care Teams Log Cutter Relationship Specialty Start Date End Date Baldomero Dominguez MD PCP - General 01/07/17 Jaciel Melo MD Outsole Tacker Cardiovascular Disease 04/12/19 2 documented as of this encounter
--- OUTSIDE RECORDS SUMMARY | 2024-07-11 07:24 | XMS_ITS | Encounter Summary ---
Author Organization [facility] Address [address] [place] [address] Care Team Providers Care Washing Machine Mechanic Name Role Phone Baldomero Dominguez MD Primary Care Provider [phone] Jaciel Melo MD Unavailable [phone] Reason for Visit * Reason Comments New Patient Encounter Details Date Type Department Care Team (Late st Contact Info) Description 12/24/2020 8:30 AM CDT Office Visit [facility] Pulmonology [address] [place] [address] [place] [address] [place] [address] [address] [place] [address] Dyspnea and respiratory abnormalities (Primary Dx); Class 2 obesity with body mass index (BMI) of 35.0 to 35.9 in adult, unspecified obesity type, unspecified whether serious comorbidity present; History of COVID-19; TRACE (obstructive sleep apnea) Social History Tobacco Use Types Packs/Day Years Used Date Smoking Tobacco: Never Smokeless Tobacco: Never Alcohol Use Standard Drinks/Week Comments Yes 0 (1 standard drink = 0.6 oz pur e alcohol) occasional wine Comments No Sex and Gender Information Value Date Recorded Sex Assigned at Not on file Legal Sex Female 1:19 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 Gender Identity Not on file Sexual Orientation Not on file documented as of this encounter Last Filed Vital Signs Vital Sign Reading Time Taken Comments Blood Pressure 137/79 12/24/2020 8:37 AM CDT Pulse 72 12/24/2020 8:37 AM CDT Temperature - - Respiratory Rate 18 12/24/2020 8:37 AM CDT Oxygen Saturation 96% 12/24/2020 8:37 AM CDT Inhaled Oxygen Concentration - - Weight 100.2 kg (220 lb 12.8 oz) 12/24/2020 8:37 AM CDT Height 167.6 cm (5' 6 ) 12/24/2020 8:37 AM CDT Body Mass Index 35.64 12/24/2020 8:37 AM CDT documented in this encounter Progress Notes * Chico Richards MD - 12/24/2020 8:30 AM CDT Images from the original note were not included. PULMONARY CLINIC NOTE Visit Date: 12/24/2020 INTERVAL HISTORY: Presents today for follow-up of ??? new HPI: Patient is a 55 y.o. female w/ PMH of HTN, osteoarthritis, obesity s/p gastric sleeve in June 2020, who presented on 12/24/2020 for evaluation of dyspnea. Had dyspnea with exertion, at night when trying to sleep. Symptoms began in early 2020 after she had COVID in September 2020. No wheezing Has regular cough Using albuterol Denies upper respiratory symptoms. Has allergic rhinitis but controlled currently. Denies GERD Has home CPAP. Social History: Never smoker. Denies etoh or drug use. 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 No pets. Crafts as hobby. Review of Systems: Review of Systems Constitutional: Negative for chills and fever. HENT: Negative for nosebleeds. Eyes: Negative for pain. Respiratory: Positive for shortness of breath. Cardiovascular: Negative for chest pain. Gastrointestinal: Negative for blood in stool. Endocrine: Negative for polydipsia. Genitourinary: Negative for hematuria. Musculoskeletal: Negative for joint swelling. Skin: Negative for rash. Neurological: Negative for seizures. Psychiatric/Behavioral: Negative for behavioral problems. OBJECTIVE: Physical Exam: Vitals: 12/24/20 0837 BP: 137/79 Pulse: 72 Resp: 18 SpO2: 96% Weight: 100.2 kg (220 lb 12.8 oz) Height: 167.6 cm (5' 6 ) Physical Exam Constitutional: General: She is awake. Appearance: Normal appearance. HENT: Head: Normocephalic and atraumatic. Right Ear: External ear normal. Left Ear: External ear normal. Nose: Comments: External nose normal appearing Eyes: General: No scleral icterus. Conjunctiva/sclera: Conjunctivae normal. Cardiovascular: Rate and Rhythm: Normal rate and regular rhythm. Heart sounds: No friction rub. Pulmonary: Breath sounds: Normal breath sounds. No wheezing. Abdominal: Palpations: Abdomen is soft. Tenderness: There is no abdominal tenderness. Musculoskeletal: Cervical back: No rigidity. Right lower leg: No edema. Left lower leg: No edema. Skin: General: Skin is dry. Coloration: Skin is not jaundiced. Neurological: General: No focal deficit present. Mental Status: She is alert. Mental status is at baseline. Psychiatric: Mood and Affect: Mood normal. Behavior: Behavior normal. Data Review: CXR 03/01/2020 FINDINGS: ??LUNGS/PLEURA: ??No focal consolidation or pneumothorax. No pleural effusion. HEART/MEDIASTINUM: ??Heart size is normal. Normal mediastinal and hilar contours. HARDWARE/LINES/TUBES: ??None. BONES: ??No acute findings. OTHER: ??No other significant finding. ASSESSMENT AND PLAN 1. dyspena o Post covid vs obesity/deconditioning vs copd o Check pft and 6 mwt/oxygen titration study o Check chest ct o Obtain echo results o Continue albuterol o Likely refer to pulm rehab in future 2. Obesity o S/p gastric sleeve in June 2020. o Has lost 75 lbs since surgery. o Counseled/discussed on starting exercise to improve cardiac and muscular conditioning and facilitate weight loss. 3. H/o covid o September 2020. Not vaccinated yet o Obtain chest imaging 4. TRACE o Continue CPAP. Follow up with sleep clinic Chico Richards MD There may be syntax/grammatical errors in this note due to the use of voice recognition software. documented in this encounter Plan of Treatment Not on file documented as of this encounter Visit Diagnoses Diagnosis Dyspnea and respiratory abnormalities- Primary Class 2 obesity with body mass index (BMI) of 35.0 to 35.9 in adult, unspecified obesity type, unspecified whether serious comorbidity present History of COVID-19 TRACE (obstructive sleep apnea) Obstructive sleep apnea (adult) (pediatric) documented in this encounter Discontinued Medications Medication Sig Discontinue Reason Start Date End Da te furosemide (LASIX) 20 mg tablet Take 20 mg by mouth as needed Leg swelling Therapy completed 05/07/2020 12/24/2020 documented as of this encounter Care Teams Washing Machine Mechanic Relationship Specialty Start Date End Date Baldomero Dominguez MD PCP - General 01/07/17 Jaciel Melo MD Cloth Picker Cardiovascular Disease 04/12/19 2 documented as of this encounter
--- OUTSIDE RECORDS SUMMARY | 2024-07-11 07:24 | XMS_ITS | Encounter Summary ---
Author Organization [facility] Healthcare Address [address] [place] [address] Care Team Providers Care Egg Breaker Name Role Phone Baldomero Dominguez MD Primary Care Provider [phone] Jaciel Melo MD Unavailable Encounter Details Date Type Department Care Team (Late st Contact Info) Description 10/03/2020 Telephone [facility] Healthcare Occupatiuonal Health [address] [place] [address] [address] (Third Floor) [place] [address] Katherine Kee, JENNIFER Social History Tobacco Use Types Packs/Day Years Used Date Smoking Tobacco: Never Smokeless Tobacco: Never Alcohol Use Standard Drinks/Week Comments Yes 0 (1 standard drink = 0.6 oz pur e alcohol) occasional wine Comments No Sex and Gender Information Value Date Recorded Sex Assigned at Not on file Legal Sex Female 1:19 PM GROCERY STORE 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 Rowena stated her PCP ordered a COVID test for her on 10/03/20. I instructed her to call the COVID with her results. She understands she is currently not released to return to work. Negative Covid-19 and Influenza A/B Result: Not Cleared to Work - Please continue to monitor your symptoms, and call us back ([phone]) for clearance to returnto work when you are symptom free and have been free of fever for 24 hours (temp less than 100) without the use of fever-reducing medications. If your symptoms have not improved within 72 hours of your prior test, you should consult your primary care provider and call us back for retesting. Other every day recommendations are to: - Follow the stay at home orders in your area - Continue social distancing. Keep a distance of approximately 6 feet from other people whenever possible (spacing out if you are in a line, leaving 2 seats in between others at a waiting room when possible). - Wash your hands often with soap and water for at least 20 seconds. If needed, use a hand equipment specialist that contains at least 60% alcohol. - Clean and disinfect frequently touched surfaces such as tables, doorknobs, countertops, etc., daily. - Avoid touching your eyes, nose, and mouth as much as possible. - Do not share eating or drinking utensils. - Most importantly, if you start to develop symptoms including fever, cough and shortness of breath, please reach back out to us. ERY STORE ASSOCIATE documented in this encounter Plan of Treatment Not on file documented as of this encounter Visit Diagnoses Not on filedocumented in this encounter Care Teams Egg Breaker Relationship Specialty Start Date End Date Baldomero Dominguez MD PCP - General 01/07/17 Jaciel Melo MD Motor Coach Driver Cardiovascular Disease 04/12/19 2 documented as of this encounter
--- OUTSIDE RECORDS SUMMARY | 2024-07-11 07:25 | XMS_ITS | Encounter Summary ---
Author Organization [facility] Healthcare Address [address] [place] [address] Care Team Providers Care Refractory Products Supervisor Name Role Phone Baldomero Dominguez MD Primary Care Provider [phone] Jaciel Melo MD Unavailable [phone] Reason for Visit * Reason Onset Date Comments COVID-19 EVALUATION 09/28/2020 Encounter Details Date Type Department Care Team (Late st Contact Info) Description 09/28/2020 Telephone [facility] Healthcare Occupatiuonal Health [address] (Third Floor) [place] [address] Fernanda Rod RN COVID-19 EVALUATION Social History Tobacco Use Types Packs/Day Years Used Date Smoking Tobacco: Never Smokeless Tobacco: Never Alcohol Use Standard Drinks/Week Comments Yes 0 (1 standard drink = 0.6 oz pur e alcohol) occasional wine Comments No Sex and Gender Information Value Date Recorded Sex Assigned at Not on file Legal Sex Female 1:19 PM WINDOWS VMWARE ENGINEER Gender Identity Not on file Sexual Orientation Not on file documented as of this encounter Miscellaneous Notes * Telephone Encounter - Fernanda Rod RN - 09/28/2020 10:31 AM CST Employee COVID-19 Screening 06/08/2020 09/28/2020 Email: [email or web address] Employee/Student ID# [id number] Are you an employee or student? 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 On-site On-site Have you been tested for Covid-19 previously? Yes Yes Have you ever had a positive COVID-19 swab or saliva test? No No What was the date of your most recent negative test? 05/10/2020 07/13/2020 Have you had a known, specific COVID exposure within the last 14 days? Yes No Did the exposure take place at work / on campus? Yes - Have you contacted your Occupational Health office or Student Health Services? No - Contact Occupational Health Comment not open on the weekend - Was your exposure to a patient, coworker or visitor Patient - Date of exposure: 06/08/2020 - Name of the COVID-19 positive person to whom you were exposed: employee does not know patient name-[address] - Was the person to whom you were exposed wearing a mask/face covering? No - Date of the COVID-19 test for the person to whom you were exposed: 06/08/2020 - Test result of the person to whom you were exposed: Positive - What PPE was employee wearing? Mask;Gloves - Description of exposure: employee went into patient room X 2 to draw blood- patient's room and patient was not properly identified - Employee Symptoms: No Yes Date of employee symptom onset: - 09/26/2020 Description of Symptoms: - Fever;Cough;Joint Aches;Muscle Aches;Other;New Diarrhea Temperature: - 101 Other Symptoms: - fatigue, loss of appetite, scratchy throat Did you have symptoms at work? - No Date symptoms started: - 09/26/2020 Date last worked: - 09/24/2020 Do you currently live with, or have ongoing contact with, someone known or suspected to have COVID-19? No No Exposure Risk (See Exposure Guide): Significant Exposure No known or low risk exposure Assessment: Asymptomatic, occupational exposure Symptomatic, unknown exposure Plan: (B) Work with mask and active symptom monitoring (A) Stay home and test for symptoms Testing Site Location: - [facility] Notes: - Patient had seen PCP who recommended testing however did not order testing for the patient Script A0 (Stay home and test) for symptomatic employees with no known or low risk exposure Given your symptoms, you should not come to work and will be referred for testing for COVID and Influenza A and B. ??? Please go to the employee testing site at [place] [address] [place] [address] ??? You will be tested for both COVID-19 and Influenza ??? While you are awaiting testing and [...] Health will notify you and your manager of customer billing when you can return to work. ??? Should your test result positive, [facility] will work with you to identify any close contacts you may have had at work. [facility] will then alert your work contacts directly; you do not have to. Your laundry supervisor should consult with [facility] if they have any questions and before any communication with coworkers about a positive test. [facility] will help ensure that coworkers potentially at risk are notified and given appropriate advice without unnecessary disclosure of personal health information. ??? We will send you an email with self-quarantine instructions (see [facility] Guidance for At-Home Isolation: Employees). ??? You must follow any additional isolation or quarantine instructions provided to you from federal, state or local public health authorities. ??? You should let your laundry supervisor know that you will not be coming to work. Although the Call Center will email your laundry supervisor to confirm that you have been instructed not to come to work, it is still your responsibility to notify your laundry supervisor as you would for any other work absence. You should receive an email from the call center with these instructions. The email will come from [email or web address]; if you do not receive it, please check to see if your email cafe server has automatically routed it to [employer]. OWS VMWARE ENGINEER documented in this encounter Plan of Treatment Not on file documented as of this encounter Results * COVID-19 Coronavirus RNA Nasopharyngeal (09/28/2020 11:52 AM WINDOWS VMWARE ENGINEER) COVID-19 RNA Not Detected [facility] Comment: Interpretive Data Synonyms for this test include: PCR and NAAT . ??Testing performed by the [facility] Molecular Infectious Disease Laboratory. The 2019-Novel [...] in healthcare? Yes ALICIA [facility] status? No [facility] Group care resident? No [facility] Hospitalized? No [facility] Is patient in ICU? [facility] Symptomatic as defined by CDC? Yes [facility] Nasopharyngeal 09/28/2020 11 :52 AM WINDOWS VMWARE ENGINEER 09/28/2020 7:35 PM WINDOWS VMWARE ENGINEER Narrative ALICIA [facility] - 09/29/2020 4:27 AM WINDOWS VMWARE ENGINEER Patient is employed by/enrolled at:->[employer] What is the reason for testing?->Symptoms of COVID-19 in low-risk group, with concurrent influenza testing Date of Symptom Onset->09/26/20 us Dedra López MD LAB MICROBIOLOGY - GENERAL ORDERABLES Final Result [facility]IA [facility] [place] [address] documented in this encounter Visit Diagnoses Diagnosis Cough- Primary Cough documented in this encounter Additional Health Concerns Infection Onset Date Last Indicated Resolved Time COVID: Suspected 09/28/2020 09/28/2020 09/29/2020 4:28 AM WINDOWS VMWARE ENGINEER documented as of this encounter Care Teams Refractory Products Supervisor Relationship Specialty Start Date End Date Baldomero Dominguez MD PCP - General 01/07/17 Jaciel Melo MD Security System Technician Cardiovascular Disease 04/12/19 2 documented as of this encounter
--- OUTSIDE RECORDS SUMMARY | 2024-07-11 07:27 | XMS_ITS | Encounter Summary ---
Author Organization [facility] Address [address] [facility] [address] [place] [address] Phone Care Team Providers Care Manager Of Procurement Name Role Phone Baldomero Dominguez MD Primary Care Provider [phone] Jaciel Melo MD Unavailable [phone] Encounter Details Date Type Department Care Team (Late st Contact Info) Description 08/15/2020 Orders Only [facility] Surgery [address] [place] [address] Thierno Blanc MD [address] [facility] [id number] [place] [address] Social History Tobacco Use Types Packs/Day Years Used Date Smoking Tobacco: Never Smokeless Tobacco: Never Alcohol Use Standard Drinks/Week Comments Yes 0 (1 standard drink = 0.6 oz pur e alcohol) occasional wine Comments No Sex and Gender Information Value Date Recorded Sex Assigned at Not on file Legal Sex Female 1:19 PM POLICE JUDGE Gender Identity Not on file Sexual Orientation Not on file documented as of this encounter Ordered Prescriptions Prescription Sig Dispense Quantity Refills Last Filled Start Date End Date promethazine (PHENERGAN) 25 mg tablet Take 1 tablet (25 mg total) by mouth every 6 (six) hours as needed for nausea or vomiting 30 tablet 2 08/15/2020 2 documented in this encounter Progress Notes * Velvet Nguyen RN - 08/15/2020 10:03 AM CST Called pt to discuss return to work plan. Pt is expected to return to work on 08/28/20. In the meantime, she is struggling with some nausea. The Zofran helps, but does not always relieve her nausea. Wewill provide her a prescription for phenergan to see if this helps. She was encouraged to call the office in the meantime with any other questions or concerns. CE JUDGE documented in this encounter Plan of Treatment Not on file documented as of this encounter Visit Diagnoses Not on filedocumented in this encounter Care Teams Manager Of Procurement Relationship Specialty Start Date End Date Baldomero Dominguez MD PCP - General 01/07/17 Jaciel Melo MD Inclined Railway Operator Cardiovascular Disease 04/12/19 2 documented as of this encounter
--- OUTSIDE RECORDS SUMMARY | 2024-07-11 07:30 | XMS_ITS | Encounter Summary ---
Author Organization [facility] Healthcare Address [address] [place] [address] Care Team Providers Care Forest Manager Name Role Phone Baldomero Dominguez MD Primary Care Provider [phone] Jaciel Melo MD Unavailable [phone] Encounter Details Date Type Department Care Team (Latest Contact Info) Description 07/16/2020 8:13 AM LEGAL ARCHIVIST - 07/17/2020 5:25 PM LEGAL ARCHIVIST Hospital Encounter [facility] [id number] [place] [address] Thieron Blanc MD [address] [facility] [id number] [place] [address] Morbid obesity due to excess calories (CMS/HCC) Discharge Disposition: Discharge to home or self care Social History Tobacco Use Types Packs/Day Years Used Date Smoking Tobacco: Never Smokeless Tobacco: Never Alcohol Use Standard Drinks/Week Comments Yes 0 (1 standard drink = 0.6 oz pur e alcohol) occasional wine Comments No Sex and Gender Information Value Date Recorded Sex Assigned at Not on file Legal Sex Female 1:19 PM LEGAL ARCHIVIST Gender Identity Not on file Sexual Orientation Not on file documented as of this encounter Last Filed Vital Signs Vital Sign Reading Time Taken Comments Blood Pressure 146/71 07/17/2020 3:33 PM LEGAL ARCHIVIST Pulse 64 07/17/2020 3:33 PM LEGAL ARCHIVIST Temperature 36.9 ??C (98.4 ??F) 07/17/2020 3:33 PM CS T Respiratory Rate 20 07/17/2020 7:52 AM LEGAL ARCHIVIST Oxygen Saturation 97% 07/17/2020 3:33 PM LEGAL ARCHIVIST Inhaled Oxygen Concentration - - Weight 126.1 kg (278 lb) 07/16/2020 12:34 PM LEGAL ARCHIVIST Height 167.6 cm (5' 6 ) 07/16/2020 12:34 PM LEGAL ARCHIVIST Body Mass Index 44.87 07/16/2020 12:34 PM LEGAL ARCHIVIST documented in this encounter Discharge Diagnoses Diagnosis Morbid (severe) obesity due to excess calories (HCC) - MORBID (SEVERE) OBESITY DUE TO EXCESS CALORIES Supraventricular tachycardia (HCC) - SUPRAVENTRICULAR TACHYCARDIA Other specified cardiac dysrhythmias Crohn's disease, unspecified, without complications (HCC) - CROHN'S DISEASE, UNSPECIFIED, WITHOUT COMPLICATIONS Fatty (change of) liver, not elsewhere classified - FATTY (CHANGE OF) LIVER, NOT ELSEWHERE CLASSIFIED Gastro-esophageal reflux disease without esophagitis - GASTRO-ESOPHAGEAL REFLUX DISEASE WITHOUT ESOPHAGITIS Other chronic pain - OTHER CHRONIC PAIN Dorsalgia, unspecified - DORSALGIA, UNSPECIFIED Pure hypercholesterolemia, unspecified - PURE HYPERCHOLESTEROLEMIA, UNSPECIFIED Obstructive sleep apnea (adult) (pediatric) - OBSTRUCTIVE SLEEP APNEA (ADULT) (PEDIATRIC) Essential (primary) hypertension - ESSENTIAL (PRIMARY) HYPERTENSION Unspecified essential hypertension Bilateral primary osteoarthritis of knee - BILATERAL PRIMARY OSTEOARTHRITIS OF KNEE Other terminal clerk (current) drug therapy - OTHER CORRECTION (CURRENT) DRUG THERAPY lobsterman (current) use of non-steroidal anti-inflammatories (nsaid) - CORRECTION (CURRENT) USE OF NON-STEROIDAL ANTI-INFLAMMATORIES (NSAID) Body mass index (BMI)40.0-44.9, adult - BODY MASS INDEX [BMI] 40.0-44.9, ADULT Family history of ischemic heart disease and other diseases of the circulatory system - FAMILY HISTORY OF ISCHEMIC HEART DISEASE AND OTHER DISEASES OF THE CIRCULATORY SYSTEM documented in this encounter Discharge Summaries * Rubia Burleson MD - 07/17/2020 5:25 PM CST Inpatient Discharge Summary BRIEF OVERVIEW Admitting Provider: Thierno Blanc MD Discharge Provider: No att. providers found Primary Care Physician at Discharge: Baldomero Dominguez MD [phone] Admission Date: 07/16/2020 Discharge Date: 07/17/2020 Admission Location: [facility] Problems/Diagnoses: Principal Problem: Morbid obesity due to excess calories (CMS/HCC) Resolved Problems: No resolved hospital problems. DETAILS OF HOSPITAL STAY Presenting Problem/History of Present Illness: The patient was a 55 y.o. female with a long history of clinically severe obesity. Body mass index is 46 kg/m??. She had failed medical management of her weight. She has obesity related comorbiditiesincluding hypertension, hypercholesterolemia and osteoarthritis affecting both knees . She was brought to the operating room for a laparoscopic sleeve gastrectomy. Hospital Course: Ms. Rowena Quesada with a diagnosis of Morbid obesity due to excess calories (CMS/HCC), was electively taken to the operating room on 07/16/2020 and underwent a Procedure(s) (LRB): LAPAROSCOPIC GASTRECTOMY - SLEEVE (N/A) with Dr. Thierno Blanc MD. Operative findings include normal stomach and spleen and hepatic steatosis. Pressurization of the sleeve with 60 cc of air showed good pressurization and no evidence of leak. For full operative details, please see dictated summary.The patient tolerated the procedure well and post operatively was admitted to the surgery floor, the [facility] post-operative bariatric pathway. There, she was advanced from a B1 to a B2 diet on POD1, whichshe tolerated without nausea. Her pain was controlled on IV and oral medication. By day of discharge, on POD1, 07/17/20: The patient's pain was well controlled on oral medications. The patient was participating in IS and had stable respirations with good oxygen saturations on room air. The patient's IVF had been discontinued. The patient was tolerating a B2 diet. The patient was voiding spontaneously. The patient ambulated without difficulty. Throughout the patient's hospital stay, DVT prophylaxis was administered via SCDs and subcutaneous injections. The patient was deemed fit for discharge to Home. Active Issues Requiring Follow-up: None. Test Results Pending at Discharge: Pending Labs Order Current Status Surgical pathology In process Operative Procedures Performed: Procedure(s): LAPAROSCOPIC GASTRECTOMY - SLEEVE Other Procedures: None. Pertinent Test Results: None. Discharge Details Physical Exam at Discharge: Discharge Condition: good Pulse: 64 Resp: 20 BP: 146/71 Temp: 36.9 ??C (98.4 ??F) Weight: 126.1 kg (278 lb) Pertinent Exam Findings at Discharge: Abdomen soft, non-distended, mildly tender too palpation overthe upper abdomen. Laparoscopic incisions closed with dermabond with no erythema, bleeding, hematoma, or drainage. Discharge Disposition: Discharge to home or self care Code Status at Discharge: full code Discharge Instructions: Activity Instructions Discharge Activity: Activity level -It is normal to feel tired for 4-6 weeks after surgery. Increase your activity as soon as you can after surgery. Discharge Activity: Driving restrictions -Do not drive while taking pain medications. Discharge Activity: Lifting restrictions -Do NOT lift objects greater than 10-15 pounds for at least 4-6 weeks after surgery. This includes babies and pets. Discharge Activity: Stairs -You may climb stairs as tolerated Discharge Activity: Walking -Walk 1-2 times a day. Do not try to walk long distances at first. Start with a short walk. Plan towalk a little further each day. Increase your activity as you feel stronger. -Set a goal to walk 2 miles by 6 weeks after surgery unless you have severe arthritis. Discharge Activity: Work -If you have a light duty job or a desk job, you may be able to go back to work in 7-10 days. It may take 4 weeks to go back to work if you do more physical work. This is not a firm rule. You may find that you can go back to work earlier or later. Talk with your doctor about when you can go back towork. Diet Instructions Adult Discharge Diet Diet Type: Other (specify) Explanatory Comment: . -You have met with a Dietitian while you were in the hospital. -Follow your diet plan given to you by the aboriginal community council member. -Follow a no added sugar liquid diet. This includes skim milk, creamed soup, cream of wheat, protein shakes or no added sugar [place] Instant Breakfast -Drink 64 ounces of fluid per day to maintain hydration (this includes protein shakes). -Protein goal: 60 grams per day Adult Discharge Diet Diet Type: Other (specify) Explanatory Comment: . B2 diet. -If you are healing well by your doctor's visit, you will be advanced to a pureed diet (food thinned with liquids or blenderized). Other Instructions Call 911 if: You have a medical emergency Call provider for: Call the doctor's officer at for questions or concerns. The office is open Wednesday-Wednesday from 8:00 AM - 4:00 PM. If you need to talk with a doctor after hours or on a weekend or holiday, call . Call provider for: difficulty breathing or chest pain Call provider for: increased temperature -Temperature greater than 101 degrees F Call provider for: creamy, white, red-yellow drainage or pus coming from your wound Call provider if: one leg or calf has pain, swelling, is red or warm Call provider if: you cannot keep fluids or medicine down Call provider if: your abdominal (stomach) wounds are painful, swollen, or more tender then before Call provider if: your pulse is going very fast (racing) Call provider if: your wound redness is more than once inch wide Care Instructions: Care Instructions: Incentive Spirometer - Continue to use your incentive spirometer Care Instructions: Incisions -Keep incisions clean and dry Care Instructions: No tub baths -No tub baths, whirlpools or swimming until your provider says it's ok. Care Instructions: Shower -You may shower 24 hours after your surgery Discharge Wound Type: Skin Glue Special glue has been placed on your incision. It will flake off over 1 week. Do not pick, scratch or rub. This may cause it to come off before your incision has healed. Famotidine (Pepcid) -Take famotidine (Pepcid) 20mg, twice a day for 1 month and then this can be stopped. This makes less stomach acid. First office visit -Your first office visit should be 7-10 days after surgery. Call and press option 5 to schedule/reschedule your appointment. For High Blood Pressure -Your medicine may need to change as you lose weight. If you have a home blood pressure cuff, measure your blood pressure daily and write it down. Bring this information to your office visits. Gallstone prevention -Take Actigall twice a day for 6 months Multivitamin -Take 1 adult strength Multivitamin 2 times per day, or 2 children's sugar-free chewable multivitamins 2 times per day POCT cotinine This order was created through External Result Entry POCT hCG, urine This order was created through External Result Entry Discharge Medications: Current Medications TAKE these medications acetaminophen 500 mg capsule Take 2 capsules (1,000 mg total) by mouth every 8 (eight) hours for 12 doses For: pain cyanocobalamin 500 mcg tablet Take 1 tablet (500 mcg total) by mouth daily For: prevention of vitamin B12 deficiency Commonly known as: Vitamin B-12 Start taking on: July 18, 2020 cyclobenzaprine 10 mg tablet Take 1 tablet (10 mg total) by mouth every 8 (eight) hours for 4 days Commonly known as: FLEXERIL dilTIAZem CD/XR/XT 120 mg 24 hr capsule Take 120 mg by mouth nightly For: high blood pressure, can take up to two times per day, SVT Commonly known as: CARDIZEM CD,DILACOR XR docusate sodium 100 mg capsule Take 1 capsule (100 mg total) by mouth 2 (two) times a day For: constipation, stool softener Commonly known as: COLACE Start taking on: July 18, 2020 famotidine 20 mg tablet Take 1 tablet (20 mg total) by mouth 2 (two) times a day For: non-bleeding gastric disorder Commonly known as: PEPCID furosemide 20 mg tablet Take 20 mg by mouth as needed Leg swelling Commonly known as: LASIX hyoscyamine 0.125 mg SL tablet Take 1 tablet (125 mcg total) by mouth every 6 (six) hours as needed for cramping for up to 4 days For: involuntary leakage of urine Commonly known as: LEVSIN multivit tjfiknre-rqkz-EJ-calcium 9 mg iron-400 mcg tablet Take 1 tablet by mouth 2 (two) times a day For: treatment to prevent vitamin deficiency Commonly known as: THERA-M ondansetron ODT 4 mg disintegrating tablet Take 1 tablet (4 mg total) by mouth every 6 (six) hours as needed for nausea or vomiting for up to 15 doses Commonly known as: ZOFRAN-ODT oxyCODONE 5 mg immediate release tablet Take 1 tablet (5 mg total) by mouth every 6 (six) hours as needed for pain for up to 10 doses For: pain Commonly known as: ROXICODONE ProAir HFA 90 mcg/actuation inhaler Inhale 1 puff every 6 (six) hours as needed for wheezing For: allergies Generic drug: albuterol HFA traMADoL 50 mg tablet Take 50 mg by mouth 2 (two) times a day as needed For: recent knee surgery Commonly known as: ULTRAM ursodioL 300 mg capsule Take 1 capsule (300 mg total) by mouth 2 (two) times a day For: treatment to prevent gallstones Commonly known as: ACTIGALL Start taking on: July 18, 2020 VITAMIN D3 ORAL Take 1 tablet by mouth nightly Outpatient Follow-Up: Future Appointments Date Time Provider Department Center 07/24/2020 11:00 AM Berry Atkins NP [facility] [address] [facility] 08/27/2020 11:20 AM Berry Atkins NP [facility] Contact Information for Follow-ups Baldomero Dominguez MD Specialty: Emergency Medicine, Family Medicine, General Surgery Relationship: PCP - General [address] [place] [address] [address] [place] [address] Next Steps: Follow up Cosigned by Thierno Blanc MD at 07/18/2020 3:08 PM LEGAL ARCHIVIST L ARCHIVIST L ARCHIVIST documented in this encounter Medications at Time of Discharge multivit dehyjunf-kvgl-NX-fani cium (THERA-M) 9 mg iron-400 mcg tablet Take 1 tablet by mouth 2 (two) times a day 60 tablet 11 07/17/2020 acetaminophen 500 mg capsuleIndications:P ain Take 2 capsules (1,000 mg total) by mouth every 8 (eight) hours for 12 doses 24 tablet 07/17/2020 0 cyclobenzaprine (FLEXERIL) 10 mg tablet Take 1 tablet (10 mg total) by mouth every 8 (eight) hours for 4 days 12 tablet 07/17/2020 0 hyoscyamine (LEVSIN) 0.125 mg SL tabletIndications:Ur inary Incontinence Take 1 tablet (125 mcg total) by mouth every 6 (six) hours as needed for cramping for up to 4 days 12 tablet 07/17/2020 0 albuterol HFA (PROVENTIL HFA,VENTOLIN HFA,PROAIR HFA) 90 mcg/actuation inhaler Inhale 1 puff every 6 (six) hours as needed for wheezing 4 cholecalciferol (VITAMIN D-3) 1,000 unit capsule Take 1 capsule (1,000 Units total) by mouth every morning 4 cyanocobalamin (Vitamin B-12) 500 mcg tabletIndications:Pr evention of Vitamin B12 Deficiency Take 1 tablet (500 mcg total) by mouth daily 30 tablet 11 07/18/2020 3 dilTIAZem CD 120 mg 24 hr capsuleIndications:h ypertension,can take up to two times per day, SVT Take 1 capsule (120 mg total) by mouth 2 (two) times a day Patient will start dose 11/2605/02/2020 3 docusate sodium (COLACE) 100 mg capsuleIndications:c onstipation,stool softener Take 1 capsule (100 mg total) by mouth 2 (two) times a day 30 capsule 11 07/18/2020 2 famotidine (PEPCID) 20 mg tabletIndications:no n-bleeding gastric disorder Take 1 tablet (20 mg total) by mouth 2 (two) times a day 60 tablet 07/17/2020 2 furosemide (LASIX) 20 mg tablet Take 20 mg by mouth as needed Leg swelling 05/07/2020 1 ondansetron ODT (ZOFRAN-ODT) 4 mg disintegrating tablet Take 1 tablet (4 mg total) by mouth every 6 (six) hours as needed for nausea or vomiting for up to 15 doses 15 tablet 07/17/2020 2 oxyCODONE (ROXICODONE) 5 mg immediate release tabletIndications:Pa in Take 1 tablet (5 mg total) by mouth every 6 (six) hours as needed for pain for up to 10 doses 10 tablet 07/17/2020 2 traMADoL (ULTRAM) 50 mg tablet Take 1 tablet (50 mg total) by mouth 2 (two) times a day as needed for pain 02/13/2020 3 ursodioL (ACTIGALL) 300 mg capsuleIndications:C holelithiasis Prevention Take 1 capsule (300 mg total) by mouth 2 (two) times a day 60 capsule 11 07/18/2020 2 documented as of this encounter Ordered Prescriptions Prescription Sig Dispense Quantity Refills Last Filled Start Date End Date multivit kbndtady-dzwg-DG-fani cium (THERA-M) 9 mg iron-400 mcg tablet Take 1 tablet by mouth 2 (two) times a day 60 tablet 11 07/17/2020 ursodioL (ACTIGALL) 300 mg capsuleIndications:C holelithiasis Prevention Take 1 capsule (300 mg total) by mouth 2 (two) times a day 60 capsule 11 07/18/2020 2 oxyCODONE (ROXICODONE) 5 mg immediate release tabletIndications:Pa in Take 1 tablet (5 mg total) by mouth every 6 (six) hours as needed for pain for up to 10 doses 10 tablet 07/17/2020 2 ondansetron ODT (ZOFRAN-ODT) 4 mg disintegrating tablet Take 1 tablet (4 mg total) by mouth every 6 (six) hours as needed for nausea or vomiting for up to 15 doses 15 tablet 07/17/2020 2 hyoscyamine (LEVSIN) 0.125 mg SL tabletIndications:Ur inary Incontinence Take 1 tablet (125 mcg total) by mouth every 6 (six) hours as needed for cramping for up to 4 days 12 tablet 07/17/2020 0 famotidine (PEPCID) 20 mg tabletIndications:no n-bleeding gastric disorder Take 1 tablet (20 mg total) by mouth 2 (two) times a day 60 tablet 07/17/2020 2 docusate sodium (COLACE) 100 mg capsuleIndications:c onstipation,stool softener Take 1 capsule (100 mg total) by mouth 2 (two) times a day 30 capsule 11 07/18/2020 2 cyclobenzaprine (FLEXERIL) 10 mg tablet Take 1 tablet (10 mg total) by mouth every 8 (eight) hours for 4 days 12 tablet 07/17/2020 0 cyanocobalamin (Vitamin B-12) 500 mcg tabletIndications:Pr evention of Vitamin B12 Deficiency Take 1 tablet (500 mcg total) by mouth daily 30 tablet 11 07/18/2020 3 acetaminophen 500 mg capsuleIndications:P ain Take 2 capsules (1,000 mg total) by mouth every 8 (eight) hours for 12 doses 24 tablet 07/17/2020 0 documented in this encounter Discharge Disposition Disposition Code Departure Means Destination Discharge to home or self care documented in this encounter Progress Notes * LakhwinderPadmini DPT - 07/17/2020 2:00 PM CST Physical Therapy [facility] Physical Therapy Treatment Patient Name: Rowena Quesada Date of Service: 07/17/2020 Date of : 1965 Age: 55 y.o. female Room: [address] Admit Date: 07/16/2020 Primary Diagnosis: MORBID (SEVERE) OBESITY DUE TO EXCESS CALORIES/SD LAP, IRINA RESTRICT PROC, LONGITUDINAL GASTRECTOMY Referring Practitioner: Thierno Blanc MD Subjective HPI: Rowena Quesada is a 55 y.o. female POD 1 s/p Laparoscopic sleeve gastrectomy. Patient is agreeable to physical therapy treatment. Precautions: Abdominal and Fall Risk, abdominal binder for comfort only Objective Vitals: Vital signs stable throughout session. No signs and symptoms of abnormal vital signs. Activity Tolerance: Endurance: Tolerates 10-20 minutes of activity with multiple rests Pain Assessment: Pre-treatment pain: 6 /10 Post-treatment pain: 6 /10 Location: abdomen Pain intervention: RN notified Cognition: Overall Cognitive Status: At Baseline Arousal: Alert Orientation: Oriented x4 (person, place, time, and situation) Following Commands: Follows all commands and directions without difficulty Behavior: Easy to engage Bed Mobility: Patient performs supine to and from edge of bed with modified independence. Pt instructed in log roll technique with HOB flat without bed rail per home set up. Pt able to complete with modified [place]. Transfers: Patient performs sit to and from stand with no device and modified independence. Patient uses BUEs for force production. Pt completed toilet transfer with modified [place]. Gait: Patient ambulates 280 feet with no device and standby assistance (SBA). Cues on pacing, pt education on home walking program and progression and rate of perceived exertion scale. Gait belt was used for all out of bed mobility. Assessment Prognosis: Good Response to today???s treatment: Good Completed patient handoff and notified RN of patient???s location and functional status upon completion of session. RN okayed PT and pt agreeable, supine upon arrival, modified Independent for bed mobility and toilet transfer without device. Pt ambulated 280 feet without device, SBA with cues for pacing. Pt returned supine end of session with SCDs on, RN notified. Patient demonstrates deficiencies in the following areas: gait deviations, decreased strength, decreased range of motion, decreased endurance, impaired balance, decreased mobility and due to abdominal precautions. Patient would benefit from physical therapy intervention to address these impairmentsand functional limitations. Education: Patient and family has been educated on the role of PT, safety , precautions, mobility training and home exercise program. Education completed via explanation, teach back, demonstration and handout . Patient and family verbalized understanding, demonstrated understanding and needs ongoing reinforcement. Handouts Issued: Log rolling , Home walking program and Abdominal precautions Barriers to discharge: None Care Plan Goals established:??07/16/20 ?? 1. The patient will perform bed mobility including supine to/from sit with??modified independence??in order to safely return home by 07/21/2020. Comments:??Completed 07/17/2020 ?? 2. The patient will perform sit to/from stand transfers using??none??and modified independence??in order to safely return home by 07/21/2020. Comments:??Completed 07/17/2020 ?? 3. The patient will ambulate??300??feet using none??and standby assistance (SBA)??in order to safely return home by 07/21/2020. Comments:??Completed 07/17/2020 ?? 4. The patient will ascend/descend??2??stairs with 1?handrail and contact guard assistance (CGA)??in order to safely return home by 07/21/2020. Comments: Completed 07/17/2020 ?? 5. The patient will perform HEP with supervision or less per protocol in order to safely return home by??07/21/2020. Comments:??Completed Plan Physical therapy frequency: Other (comment)(will discharge from PT, no further PT indicated) Treatment interventions: bed mobility, gait training, stair training, therapeutic activity, therapeutic exercise, equipment evaluation and education, endurance training, balance training, functional transfer training, neuromuscular re-education and positioning Recommended equipment to safely discharge: none Recommended method of transportation at discharge: Personal vehicle with family Referrals Recommended: None Discharge Recommendation: Home with family Padmini Keane DPT L ARCHIVIST * Priti Canales, OT - 07/17/2020 11:45 AM CST Occupational Therapy [facility] Occupational Therapy Treatment Patient Name: Rowena Quesada Date of Service: 07/17/2020 Date of : 1965 Age: 55 y.o.female Room: [address] Admit Date: 07/16/2020 Primary Diagnosis: MORBID (SEVERE) OBESITY DUE TO EXCESS CALORIES/SD LAP, IRINA RESTRICT PROC, LONGITUDINAL GASTRECTOMY Referring Practitioner: Thierno Blanc MD Subjective HPI: Rowena Quesada is a 55 y.o. female POD 1 s/p Laparoscopic sleeve gastrectomy. Precautions: Abdominal and fall Patient Comment: I really don't want to do any of that (therapy) right now, I'm tired. Objective Vitals: Blood pressure: 167/77 mmHg, Heart rate:75 bpm, SPO2: 93% on room air Comments: sitting edge of bed, after shower Pain Assessment: Pre-therapy pain: 1/10 in abdomen Post-therapy pain: 0/10 Comments: on sullivan padgett faces pain scale Cognition: Overall Cognitive Status: At Baseline Arousal: Alert Orientation: Oriented x4 (person, place, time, and situation) Following Commands: Follows all commands and directions without difficulty Safety Judgement: Good awareness of safety precautions Problem Solving: Able to problem solve independently Behavior: Reluctant to participate RUE Assessment: Within functional limits LUE Assessment: Within functional limits Activities of Daily Living Grooming: Patient completed grooming standing at sink with modified independence for increased time. Bathing: Patient completed bathing standing in shower with distant supervision for increased time to complete. Upper Body Dressing: Patient completed upper body dressing standing at sink with modified independence for increased time to complete. Lower Body Dressing: Patient completed lower body dressing sitting edge of bed with modified independence for increased time to complete. Toileting: Patient completed toileting seated on toilet in bathroom with independence . Functional Mobility Bed Mobility: Patient performed supine to and from edge of bed and short sit with distant supervision. Patient required assistance for log rolling technique, verbal cues for compliance. Functional Transfers: Patient performed sit to and from stand with standby assistance (SBA). Patient required assistance for safety. Toilet Transfers: Patient performed comfort height toilet transfer using no device with modified independence.Patientrequired assistance for increased time. Shower Transfers: Patient performed shower transfer using no device to standing with standby assistance (SBA). Patient required assistance for safety. Functional Ambulation: Patient ambulates x 20 feet with no device and modified independence to simulate home ambulation. Assessment Prognosis:Good Completed patient handoff and notified RN of patient's location and functional status upon completion of session. Patient tolerated session well, but was reluctant to participate at first, due to fatigue. Patient completed showering, and dressing and functional mobility with good endurance and understanding of abdominal precautions with minimal verbal cues. Education: Patient and daughterVelvet has been educated on the role of OT, safety, precautions, ADL re-training and energy conservation techniques. Education completed via explanation, teach back and demonstration. Patient and daughterVelvet verbalized understanding and demonstrated understanding. Handouts Issued: Abdominal precautions Barriers to discharge: None Care Plan Goals established: 07/16/20 ?? 1. The patient will perform dressing with modified independence in order to safely return home by 07/21/2020. a. Comments: Met 07/17/20 ?? 2. The patient will perform toileting plus transfer with modified independence in order to safely return home by 07/21/2020. a. Comments: Met 07/17/20 ?? 3. The patient will perform bathing with standby assistance (SBA) in order to promote heathy skin integrity for post op healing by 07/21/2020. a. Comments: Met 07/17/20 ?? 4. The patient will perform walk-in shower transfer with standby assistance (SBA) in order to safely return home by 07/21/2020. a. Comments: Met 07/17/20 ?? 5. The patient will recall abdominal/log roll precautions with no cueing in order to safely return home by 07/21/2020. A. Comments: Met 07/17/20 Plan Treatment frequency: last session, goals met, no further skilled OT indicated Recommended equipment to safely discharge: grab bars Referrals Recommended: None. Discharge Recommendation: Home with family, Home with intermittent assist Comments: Patient is functioning at a supervised level and will have assist at home from daughters and significant other. Priti Canales OT L ARCHIVIST * Lisa Chairez, HODAN - 07/17/2020 10:12 AM CST Nutrition Assessment Reason for Assessment: Initial Nutrition Assessment, Consult/Referral and Diet Education-bariatric diet progression education Encounter Date: 07/17/20 10:12 AM Nutrition Assessment and Plan: Patient is a 55 y.o. female. Admit Dx: MORBID (SEVERE) OBESITY DUE TO EXCESS CALORIES/SD LAP, IRINA RESTRICT PROC, LONGITUDINAL GASTRECTOMY. Admitted on 07/16/2020, current LOS is 1 days. Pt intake inadequate. Poor PO intake appropriate given POD #1. Pt reports good tolerance to bariatric stage 2 (full liquid) diet. Denies N/V. Reports she has premier protein shakes at home. Pt receptive throughout education, anticipate good compliance with diet upon discharge. Education: Provided handout on Nutritional Guidelines For Weight Reduction Surgery. Reviewed handout packet. Discussed diet progression, volume allowed with each diet, and foods allowed. Discussed fluid and protein needs. Reinforced drinking liquids separate from meals. Discussed vitamin and mineral supplements. Reviewed possible medical problems that may be experienced (blockage, constipation, dehydration, diarrhea, dumping syndrome, nausea / vomiting, pain in the upper chest, and vitamin/mineral/protein deficiency). Encouraged physical activity as allowed by physician. Sample menus provided. Pt with no further questions. RD contact information given. Will continue to monitor and intervene as needed. Wt Readings from Last 10 Encounters: 07/16/20 126.1 kg (278 lb) 07/09/20 129.3 kg (285 lb) 07/09/20 128.5 kg (283 lb 3.2 oz) 04/17/20 130.2 kg (287 lb) 03/12/20 131.2 kg (289 lb 3.2 oz) 03/06/20 128.8 kg (284 lb) 03/01/20 128.8 kg (284 lb) 11/15/19 127 kg (280 lb) 01/07/17 125.2 kg (275 lb 15.9 oz) 11/20/15 124.3 kg (274 lb) Dietary Orders (From admission, onward) Start Ordered 07/17/20 0700 Adult Diet GI Diets Diet effective now Comments: Bariatric Surgery Diet 2 Ad sajan Question: ([facility]) Diet type Answer: GI Diets 07/16/20 1250 Nutrition Diagnosis 1: Food and nutrition-related knowledge deficit Related to: Lack of education, Recent surgery Evidenced by: Physical finding, Other (comment)(bariatric surgery) ?? Interventions: Education ?? Monitoring and Evaluation: Diet advancement, Discharge plans, Electrolyte changes, Hydration status, I/O, Weight changes, PO intake, Plan of care, Labs ?? Goals: Patient/caregiver able to teach back understanding of role of diet in disease process prior to discharge ? Nutrition Needs Calculations: Calculated Energy Needs Using Equations Weight Used for Equation Calculations (RD Determined): 126.1 kg (278 lb) Weight: 126.1 kg (278 lb) Height: 167.6 cm (5' 6 ) [place] Equation (Overweight or Obese Patients): 1883 Equation Chosen to Use by RD: Chinedu Caba Total Energy Needs: 1883 kcal Total Energy Needs + Fever Factor: 1883 Estimated Protein Needs Type of Weight Used for Estimated Protein : [place] Protein Needs Based on g/k.2 Total Protein Estimated Needs (gm): 70.8 Kcal/kg Type of Weight Used for Estimated Kcals: Current Kcal/k Total Kcal/kg Estimated Needs : 1513.2 Estimated Fluid Needs Type of Weight Used for Estimated Fluid Needs: Current Fluid Needs Based on : 1 ml/kcal Total Fluid Estimated Needs: 1513.2 Objective Anthropometrics Weight: 126.1 kg (278 lb) Admission Weight : 126.1 kg Weight Change: -3.17 kg (-7.00 lbs) IBW/kg (Calculated) : 59 kg Height: 167.6 cm (5' 6 ) Weight in (lb) to have BMI = 25: 154.6 BMI (Calculated): 44.9 BMI Classification: BMI > or equal to 40.0 Class III 3 Day I/O Summary 07/15 1900 - 07/17 0659 In: 3213 [P.O.:360; I.V.:2833] Out: 2300 [Urine:2250] Temp: 37.1 ??C (98.8 ??F) Past Medical History: Diagnosis Date ??? Anemia ??? Arthritis ??? Heart disease ??? Hypertension ??? Irritable bowel syndrome ??? Joint pain ??? Morbid obesity (CMS/HCC) ??? Supraventricular tachycardia by ECG (CMS/HCC) Medications and Lab Review: Scheduled Meds: ??? acetaminophen, 1,000 mg, oral, Q8H JAVIER ??? celecoxib, 200 mg, oral, BID ??? [START ON 07/18/2020] cyanocobalamin, 500 mcg, oral, Daily ??? cyclobenzaprine, 10 mg, oral, Q8H JAVIER ??? dilTIAZem CD/XR/XT, 120 mg, oral, Nightly ??? [START ON 07/18/2020] docusate sodium, 100 mg, oral, BID ??? enoxaparin, 40 mg, subcutaneous, Q12H JAVIER ??? famotidine, 20 mg, oral, BID ??? hyoscyamine, 125 mcg, oral, Q6H JAVIER ??? [START ON 07/18/2020] multivitamin with minerals, 1 tablet, oral, Daily ??? pantoprazole DR, 40 mg, oral, Nightly ??? scopolamine, 1 patch, transdermal, Q72H ??? sodium chloride 0.9%, 0.5-20 mL, intra-catheter, Q8H JAVIER ??? [START ON 07/18/2020] ursodioL, 300 mg, oral, BID Continuous Infusions: ??? dextrose 5% and sodium chloride 0.9% with potassium chloride 20 mEq/L, 125 mL/hr, Last Rate: 125 mL/hr (07/16/20 2303) Followed by ??? dextrose 5% and sodium chloride 0.45% with potassium chloride 20 mEq/L, 75 mL/hr ??? Lactated Ringer's, 125 mL/hr, Last Rate: Stopped (07/16/20 1404) Sodium Date Value Ref Range Status 07/16/2020 135 135 - 145 mmol/L Final Potassium, pl Date Value Ref Range Status 07/16/2020 4.4 3.3 - 4.9 mmol/L Final BUN Date Value Ref Range Status 07/16/2020 5 (L) 8 - 25 mg/dL Final Creatinine Date Value Ref Range Status 07/16/2020 0.60 0.60 - 1.10 mg/dL Final Calcium Date Value Ref Range Status 07/16/2020 8.5 8.5 - 10.3 mg/dL Final Lab Results Component Value Date HGBA1C 5.9 (H) 01/17/2020 Nursing Assessment: Last BM Date: 07/15/20 Bowel Sounds (All Quadrants): Hypoactive Jorge Scale Score: 20 Skin Integrity: Surgical incision Diet Instructions Adult Discharge Diet Diet Type: Other (specify) Explanatory Comment: . -You have met with a Dietitian while you were in the hospital. -Follow your diet plan given to you by the aboriginal community council member. -Follow a no added sugar liquid diet. This includes skim milk, creamed soup, cream of wheat, protein shakes or no added sugar [place] Instant Breakfast -Drink 64 ounces of fluid per day to maintain hydration (this includes protein shakes). -Protein goal: 60 grams per day Adult Discharge Diet Diet Type: Other (specify) Explanatory Comment: . B2 diet. -If you are healing well by your doctor's visit, you will be advanced to a pureed diet (food thinned with liquids or blenderized). Lsia Chairez, MPH, RDN, LD Office: [phone] L ARCHIVIST * Henrietta Unger, PT - 07/17/2020 8:53 AM CST [facility] Physical Therapy Treatment Patient Name: Rowena Quesada Date of Service: 07/17/2020 Date of : 1965 Age: 55 y.o. female Room: [address] Admit Date: 07/16/2020 Primary Diagnosis: MORBID (SEVERE) OBESITY DUE TO EXCESS CALORIES/SD LAP, IRINA RESTRICT PROC, LONGITUDINAL GASTRECTOMY Referring Practitioner: Thierno Blanc MD Subjective HPI: Rowena Quesada is a 55 y.o. female POD 1 LAPAROSCOPIC GASTRECTOMY - SLEEVE. Patient is agreeable to physical therapy treatment. Precautions: Abdominal and Fall Risk Patient Comment: I'm not ready to walk, I'm tired. I didn't get to sleep all night Objective Vitals: Blood pressure: 161/74 mmHg, Heart rate: 75 bpm, SPO2: 92% Activity Tolerance: Endurance: Tolerates 30 minutes of activity with multiple rests Pain Assessment: Pre-treatment pain: 6 /10 Post-treatment pain: 6 /10 Location: abdomen Pain intervention: Repositioned, Ambulation, Physical therapy and RN notified Cognition: Overall Cognitive Status: At Baseline Arousal: Alert Following Commands: Follows all commands and directions without difficulty Behavior: Easy to engage Lower Extremity Assessment: Strength Grossly assessed as WNL based on patient's ability to perform functional mobility with supervision. Bed Mobility Patient performs supine to edge of bed with distant supervision for safety using log roll technique. Increased time needed, head of bed slightly elevated. Transfers: Patient performs sit to and from stand with no device and modified independence. Patient uses BUEs for force production. Gait: Patient ambulates x 350 feet with no device and distant supervision for safety. Decreased vilma and step length, increased lateral sway. Stairs: Patient negotiates 4 stairs with right hand railing and standby assistance (SBA) for safety. Patient uses reciprocal gait pattern. Gait belt was used for all out of bed mobility. Formal Balance Assessment: Not indicated due to recent surgery Assessment Prognosis: Good Response to today???s treatment: Good Completed patient handoff and notified RN of patient???s location and functional status upon completion of session. Patient requires encouragement to participate in therapy this AM but appears motivated to dischargehome today. Currently, she requires supervision for mobility. Patient demonstrates deficiencies in the following areas: gait deviations, decreased strength, decreased range of motion, decreased endurance, decreased mobility and due to abdominal precautions. Patient would benefit from physical therapy intervention to address these impairments and functional limitations. Education: Patient has been educated on the role of PT, safety , precautions, mobility training, stairs and home exercise program. Education completed via explanation, demonstration and handout . Patient verbalized understanding and demonstrated understanding. Handouts Issued: Log rolling , Home walking program and Abdominal precautions Barriers to discharge: None Care Plan Goals established: 07/16/20 ?? 1. The patient will perform bed mobility including supine to/from sit with modified independence inorder to safely return home by 07/21/2020. Comments: Progressing ?? 2. The patient will perform sit to/from stand transfers using none and modified independence in order to safely return home by 07/21/2020. Comments: Completed 07/17/2020 ?? 3. The patient will ambulate 300 feet using none and standby assistance (SBA) in order to safely return home by 07/21/2020. Comments: Completed 07/17/2020 ?? 4. The patient will ascend/descend 2 stairs with 1 handrail and contact guard assistance (CGA) in order to safely return home by 07/21/2020. Comments: Completed 07/17/2020 ?? 5. The patient will perform HEP with supervision or less per protocol in order to safely return home by 07/21/2020. Comments: Progressing Plan Physical therapy frequency: Twice a day Treatment interventions: bed mobility, gait training, stair training, therapeutic activity, therapeutic exercise, equipment evaluation and education, endurance training, balance training and functional transfer training Recommended equipment to safely discharge: none Recommended method of transportation at discharge: Personal vehicle with family Referrals Recommended: None Discharge Recommendation: Home with family Henrietta Unger PT L ARCHIVIST * Rubia Burleson MD - 07/16/2020 4:00 PM CST SURGERY Post-Operative Check Rowena Quesada : 1965 Subjective Rowena Quesada is status post laparoscopic sleeve gastrectomy. Patient complains of abdominal pain and sore throat but denies chest pain, SOB, or nausea. Has voided since OR. Objective Physical Exam: BP 149/75 (BP Location: Right arm, Patient Position: Lying) Pulse 80 Temp 37.1 ??C (98.8 ??F) (Temporal) Resp 19 Ht 167.6 cm (5' 6 ) Wt 126.1 kg (278 lb) SpO2 96% BMI 44.87 kg/m?? Constitutional: in no acute distress, alert and oriented X 3 Lung: Non-labored breathing, equal excursion bilaterally Cardiovascular: regular rate and rhythm. Abdomen: soft, nondistended, appropriately tender to palpation. Incision(s): Laparoscopic sites closed with dermabond. No drainage, no erythema, or hematoma or seroma Extremities: Bilateral upper and lower extremities warm and well perfused Assessment/Plan Doing well status post lap sleeve gastrectomy. - Continue VS monitoring - advance per usual rainbow pathway - Metoprolol 5mg IV PRN for HTN, for SBP >150, DBP>100 as long as HR >70 - Pain: multimodal pain control with APAP and oxy - Labs: CBC, BMP tonight - Diet management: per orders - DVT ppx: lovenox, SCDs Rubia Burleson MD 07/16/2020 L ARCHIVIST documented in this encounter H&P Notes * Pee Mukherjee III, MD - 07/16/2020 9:41 AM CST I have reviewed the H&P, examined the patient, and endorse the findings as written. Plan of Care : Based on the above findings, I consider Rowena Quesada to be an acceptable risk for : Procedure(s): LAPAROSCOPIC GASTRECTOMY - SLEEVE L ARCHIVIST Source Note - Rob Saunders MD - 07/09/2020 11:37 AM LEGAL ARCHIVIST Images from the original note were not included. Center for Preoperative Assessment and Planning Preoperative Evaluation Record Evaluation type/location: [facility] Planned procedure site: [facility] OR Date: 07/09/20 Anesthesia Evaluation Rowena Quesada is a 55 y.o. female Procedure(s): LAPAROSCOPIC GASTRECTOMY - SLEEVE Pre-Op Diagnosis Codes: * Morbid obesity due to excess calories (CMS/[facility]) [E66.01] HISTORY HPI 55 year old female with history of HTN, GERD, SVTShe is scheduled for laparoscopic gastric sleeve with Dr. Blanc. Past Medical History Information obtained from: patient and chart. Neurological Pertinent negatives: neuromuscular disease; CVA/stroke; TIA; CEA; dementia/mild cognitive impairment and psychiatric history Cardiovascular + Hypertension + Other arrhythmia (taking Diltiazem) - PSVT. Pertinent negatives: [place] ; CABG ; systolic/diastolic dysfunction w/o CHF ; valvular heart disease; valve replacement; pacemaker/ICD; PVD; DVT/PE; negative for CHF; unknown stent(s) type and hyperlipidemia Comments: Hx pf SVT managed by Dr. Martinez- Respiratory + Sleep apnea (TRACE) (dx on home sleep study- no home CPAP) Prescribed device: PAP compliant. Pertinent negatives: COPD; asthma; pulmonary hypertension; no O2 use outside the hospital and non-smoker Hepatic / Heme + History of anemia (last H&H on 07/09/202013.9/42.9) - iron deficiency Pertinent negatives: liver disease Gastrointestinal + GERD - on daily therapy. Symptoms < 1x/week. Renal / Pertinent negatives: renal disease; dialysis and nephrolithiasis Musculoskeletal/Pain + Chronic pain (right knee) - back pain. + Osteoarthritis Pertinent negatives: previous treatment for opioid use disorder and headaches Endocrine / Other + Obesity (BMI >30)- morbid obesity (BMI>40). + Rheumatological disease - Crohn's disease. Pertinent negatives: diabetes mellitus and thyroid disease Functional Capacity Functional capacity: <4 METs Comments: Patient reports she she would have SOB walking 3 blocks. Denies CP Review of Systems + pedal edema (ocassionally- uses lasix PRN) + chronic pain (right knee) Pertinent negatives: productive cough; wheezing; SOB; recent cold/flu; chest pain; palpitations; orthopnea; previous transfusion; melena/hematochezia; bleeding problems; syncope; dizziness; muscle weakness; numbness/tingling; hard of hearing; vision loss; heartburn; nausea; dysphagia; diarrhea; dent ures/partials and chipped/loose teeth PAT Summary and Plans Cardiac risk classification of planned procedure: intermediate cardiac risk. Preoperative assessment status: lab tests ordered. Additional comments: Rowena Quesada is a 55 y.o. female who is being evaluated prior to undergoing an intermediate cardiac risk surgery. Revised Cardiac Risk Index factors are (none) for a total RCRI of 0 out of 6. Functional capacity is <4 METs Obstructive sleep apnea (TRACE) screening status is STOP-Bang=5 suggesting HIGH RISK for TRACE. Blood bank needs for day of procedure: No type and screen needed Pending labs/tests include: CBC BMP urine nicotine Patient with No known exposure to COVID19 and no concerning symptoms of COVID19. Plan for pre-procedure COVID19 testing: Surgery date greater than 4 days from today. Request placed for pre-procedure COVID19 testing to be performed on 07/13/2020. [facility] will contact patient to schedule testing. . Patient has history of SVT. She reporst recent stress test and echocardiogram in preparation for surgery. Plan to obtain for chart completion. Preoperative evaluation performed by Lorenzo Rahman NP on 07/09/20 at 12:15 PM. . Follow up note Labs reviewed and are without significant findings. awaiting most recent echo and stress test Awaiting additional lab results: nicotine metabolite urine. Awaiting outside records. Surgeon's office reviews laboratory results independently. Follow-up completed by: Promise Bazan NP on 07/10/20 at 10:43 AM Follow up note 2 Echo reviewed, entered into diagnostics. No stress test available, only requested by machine tender for chart completion Awaiting urine nicotine metabolites. Follow-up completed by: Olinda Vu NP on 07/10/20 at 6:08 PM Follow up note Urine Nicotine reviewed without significant findings. CPAP Complete Follow-up completed by: Katherine Guillen NP on 07/15/20 at 1:21 PM Patient Active Problem List Diagnosis ??? Arthralgia of hip ??? Morbid obesity (CMS/HCC) ??? Crohn's disease (CMS/HCC) ??? Paroxysmal supraventricular tachycardia (CMS/HCC) ??? Morbid obesity due to excess calories (CMS/HCC) Past Medical History: Diagnosis Date ??? Anemia ??? Arthritis ??? Heart disease ??? Hypertension ??? Irritable bowel syndrome ??? Joint pain ??? Morbid obesity (CMS/HCC) ??? Supraventricular tachycardia by ECG (CMS/HCC) Past Surgical History: Procedure Laterality Date ??? SECTION ??? CHOLECYSTECTOMY ??? NOSE SURGERY OB History No obstetric history on file. No Known Allergies Med List Status: Nurse Complete Set By: Chad Christianson RN at 07/09/2020 12:05 PM Taking? Last Dose Start Date End Date Provider albuterol HFA (ProAir HFA) 90 mcg/actuation inhaler -- -- Adry Sood MD cholecalciferol, vitamin D3, (VITAMIN D3 ORAL) -- -- Adry Sood MD dilTIAZem CD 120 mg 24 hr capsule 05/02/20 -- Adry Sood MD furosemide (LASIX) 20 mg tablet 05/07/20 -- Adry Sood MD iron 18 mg tablet -- -- Adry Sood MD pantoprazole DR (PROTONIX) 20 mg EC tablet -- -- Adry Sood MD traMADoL (ULTRAM) 50 mg tablet 02/13/20 -- Adry Sood MD Current Outpatient Medications: ??? albuterol HFA (ProAir HFA) 90 mcg/actuation inhaler ??? diltiaZEM (CARDIZEM) 120 mg tablet ??? ergocalciferol (VITAMIN D) 50,000 unit capsule ??? iron 18 mg tablet ??? meloxicam (MOBIC) 7.5 mg tablet ??? traMADoL (ULTRAM) 50 mg tablet Social History Tobacco Use Smoking Status Never Smoker Substance and Sexual Activity Alcohol Use Not on file Substance and Sexual Activity Drug Use Not on file Family History Problem Relation Age of Onset ??? Diabetes Mother Family history of diabetes mellitus - (Added by TW Conv) ??? Hypertension Mother Family history of hypertension - (Added by TW Conv) ??? Obesity Mother Overweight - (Added by TW Conv) ??? Cancer Mother Family history of malignant neoplasm - (Added by TW Conv) PAT Physical Exam Airway Exam: Mallampati: II Cervical ROM: FROM TM distance: 3 Cardiovascular Exam: Rate: regular Rhythm: regular Negative for Murmur Negative for peripheral edema Pulmonary Exam: LCTA, bilat EENT Exam: trachea midline Dental Exam: Appears intact Skin Exam: Skin is warm. Abdominal exam: Abdomen is soft. Bowel sounds are present. Current state: Patient's current state is cooperative. Vitals: 07/09/20 1208 07/09/20 1211 BP: 150/74 145/73 Pulse: 78 SpO2: 100% Relevant diagnostics: ECG(s)03/21/2020 OSH: Sinus rhythm rSr'(V1) - probable normal variant Anterior T wave abnormality is nonspecific Echocardiogram(s): -05/03/2020-techinically difficult study. Normal LV chamber size, EF 55-60%, mildly dilated left atrium. RVSP is normal. Mild thickening of MV anterior leaflet, trace tricuspid regurgitation. Stress test(s): Cardiac catheterization(s): N/A PFT(s): N/A Vascular studies: N/A Other: N/A PT: No results found for requested labs [...] for requested labs within last 720 hours. DOS Physical Exam Medical history, medications, and allergies reviewed. Attestation: This PAT evaluation Airway Exam: Mallampati: II Cervical ROM: FROM Cardiovascular Exam: Rate: regular Rhythm: regular Pulmonary Exam: LCTA, bilat Anesthesia Plan ASA 3 My patient is approved for the Anesthesia Controlled Medication protocol when under care of a WRAPPING CLERK Planned anesthesia: General Informed Consent: Anesthesia plan and risks discussed with patient. Consent and Attending signature: I and/or my designee have discussed the anesthesia plan, benefits, possible alternatives, parental presence at time of induction (if indicated), and clinically relevant risks that may include dental injury, unintentional awareness, and/or other complications. The patient and/or parent/legal guardian understand, and agree to proceed. All questions answered. L ARCHIVIST L ARCHIVIST L ARCHIVIST L ARCHIVIST L ARCHIVIST L ARCHIVIST L ARCHIVIST * Thierno Blanc MD - 07/16/2020 9:05 AM CST I have reviewed the H&P, examined the patient, and endorse the findings as written. Plan of Care : Based on the above findings, I consider Rowena Quesada to be an acceptable risk for : Procedure(s): LAPAROSCOPIC GASTRECTOMY - SLEEVE L ARCHIVIST Source Note - Rob Saunders MD - 07/09/2020 11:37 AM LEGAL ARCHIVIST Images from the original note were not included. Center for Preoperative Assessment and Planning Preoperative Evaluation Record Evaluation type/location: [facility] Planned procedure site: [facility] OR Date: 07/09/20 Anesthesia Evaluation Rowena Quesada is a 55 y.o. female Procedure(s): LAPAROSCOPIC GASTRECTOMY - SLEEVE Pre-Op Diagnosis Codes: * Morbid obesity due to excess calories (CMS/HCC) [E66.01] HISTORY HPI 55 year old female with history of HTN, GERD, SVTShe is scheduled for laparoscopic gastric sleeve with Dr. Blanc. Past Medical History Information obtained from: patient and chart. Neurological Pertinent negatives: neuromuscular disease; CVA/stroke; TIA; CEA; dementia/mild cognitive impairment and psychiatric history Cardiovascular + Hypertension + Other arrhythmia (taking Diltiazem) - PSVT. Pertinent negatives: [place] ; CABG ; systolic/diastolic dysfunction w/o CHF ; valvular heart disease; valve replacement; pacemaker/ICD; PVD; DVT/PE; negative for CHF; unknown stent(s) type and hyperlipidemia Comments: Hx pf SVT managed by Dr. Martinez- Respiratory + Sleep apnea (TRACE) (dx on home sleep study- no home CPAP) Prescribed device: PAP compliant. Pertinent negatives: COPD; asthma; pulmonary hypertension; no O2 use outside the hospital and non-smoker Hepatic / Heme + History of anemia (last H&H on 07/09/202013.9/42.9) - iron deficiency Pertinent negatives: liver disease Gastrointestinal + GERD - on daily therapy. Symptoms < 1x/week. Renal / Pertinent negatives: renal disease; dialysis and nephrolithiasis Musculoskeletal/Pain + Chronic pain (right knee) - back pain. + Osteoarthritis Pertinent negatives: previous treatment for opioid use disorder and headaches Endocrine / Other + Obesity (BMI >30)- morbid obesity (BMI>40). + Rheumatological disease - Crohn's disease. Pertinent negatives: diabetes mellitus and thyroid disease Functional Capacity Functional capacity: <4 METs Comments: Patient reports she she would have SOB walking 3 blocks. Denies CP Review of Systems + pedal edema (ocassionally- uses lasix PRN) + chronic pain (right knee) Pertinent negatives: productive cough; wheezing; SOB; recent cold/flu; chest pain; palpitations; orthopnea; previous transfusion; melena/hematochezia; bleeding problems; syncope; dizziness; muscle weakness; numbness/tingling; hard of hearing; vision loss; heartburn; nausea; dysphagia; diarrhea; dent ures/partials and chipped/loose teeth PAT Summary and Plans Cardiac risk classification of planned procedure: intermediate cardiac risk. Preoperative assessment status: lab tests ordered. Additional comments: Rowena Quesada is a 55 y.o. female who is being evaluated prior to undergoing an intermediate cardiac risk surgery. Revised Cardiac Risk Index factors are (none) for a total RCRI of 0 out of 6. Functional capacity is <4 METs Obstructive sleep apnea (TRACE) screening status is STOP-Bang=5 suggesting HIGH RISK for TRACE. Blood bank needs for day of procedure: No type and screen needed Pending labs/tests include: CBC BMP urine nicotine Patient with No known exposure to COVID19 and no concerning symptoms of COVID19. Plan for pre-procedure COVID19 testing: Surgery date greater than 4 days from today. Request placed for pre-procedure COVID19 testing to be performed on 07/13/2020. [facility] will contact patient to schedule testing. . Patient has history of SVT. She reporst recent stress test and echocardiogram in preparation for surgery. Plan to obtain for chart completion. Preoperative evaluation performed by Lorenzo Rahman NP on 07/09/20 at 12:15 PM. . Follow up note Labs reviewed and are without significant findings. awaiting most recent echo and stress test Awaiting additional lab results: nicotine metabolite urine. Awaiting outside records. Surgeon's office reviews laboratory results independently. Follow-up completed by: Promise Bazan NP on 07/10/20 at 10:43 AM Follow up note 2 Echo reviewed, entered into diagnostics. No stress test available, only requested by machine tender for chart completion Awaiting urine nicotine metabolites. Follow-up completed by: Olinda Vu NP on 07/10/20 at 6:08 PM Follow up note Urine Nicotine reviewed without significant findings. CPAP Complete Follow-up completed by: Katherine Guillen NP on 07/15/20 at 1:21 PM Patient Active Problem List Diagnosis ??? Arthralgia of hip ??? Morbid obesity (CMS/HCC) ??? Crohn's disease (CMS/HCC) ??? Paroxysmal supraventricular tachycardia (CMS/HCC) ??? Morbid obesity due to excess calories (CMS/HCC) Past Medical History: Diagnosis Date ??? Anemia ??? Arthritis ??? Heart disease ??? Hypertension ??? Irritable bowel syndrome ??? Joint pain ??? Morbid obesity (CMS/HCC) ??? Supraventricular tachycardia by ECG (CMS/HCC) Past Surgical History: Procedure Laterality Date ??? SECTION ??? CHOLECYSTECTOMY ??? NOSE SURGERY OB History No obstetric history on file. No Known Allergies Med List Status: Nurse Complete Set By: hCad Christianson RN at 07/09/2020 12:05 PM Taking? Last Dose Start Date End Date Provider albuterol HFA (ProAir HFA) 90 mcg/actuation inhaler -- -- Provider, MD Adry cholecalciferol, vitamin D3, (VITAMIN D3 ORAL) -- -- Adry Sood MD dilTIAZem CD 120 mg 24 hr capsule 05/02/20 -- Adry Sood MD furosemide (LASIX) 20 mg tablet 05/07/20 -- Adry Sood MD iron 18 mg tablet -- -- Adry Sood MD pantoprazole DR (PROTONIX) 20 mg EC tablet -- -- Adry Sood MD traMADoL (ULTRAM) 50 mg tablet 02/13/20 -- Adry Sood MD Current Outpatient Medications: ??? albuterol HFA (ProAir HFA) 90 mcg/actuation inhaler ??? diltiaZEM (CARDIZEM) 120 mg tablet ??? ergocalciferol (VITAMIN D) 50,000 unit capsule ??? iron 18 mg tablet ??? meloxicam (MOBIC) 7.5 mg tablet ??? traMADoL (ULTRAM) 50 mg tablet Social History Tobacco Use Smoking Status Never Smoker Substance and Sexual Activity Alcohol Use Not on file Substance and Sexual Activity Drug Use Not on file Family History Problem Relation Age of Onset ??? Diabetes Mother Family history of diabetes mellitus - (Added by TW Conv) ??? Hypertension Mother Family history of hypertension - (Added by TW Conv) ??? Obesity Mother Overweight - (Added by TW Conv) ??? Cancer Mother Family history of malignant neoplasm - (Added by TW Conv) PAT Physical Exam Airway Exam: Mallampati: II Cervical ROM: FROM TM distance: 3 Cardiovascular Exam: Rate: regular Rhythm: regular Negative for Murmur Negative for peripheral edema Pulmonary Exam: LCTA, bilat EENT Exam: trachea midline Dental Exam: Appears intact Skin Exam: Skin is warm. Abdominal exam: Abdomen is soft. Bowel sounds are present. Current state: Patient's current state is cooperative. Vitals: 07/09/20 1208 07/09/20 1211 BP: 150/74 145/73 Pulse: 78 SpO2: 100% Relevant diagnostics: ECG(s)03/21/2020 OSH: Sinus rhythm rSr'(V1) - probable normal variant Anterior T wave abnormality is nonspecific Echocardiogram(s): -05/03/2020-techinically difficult study. Normal LV chamber size, EF 55-60%, mildly dilated left atrium. RVSP is normal. Mild thickening of MV anterior leaflet, trace tricuspid regurgitation. Stress test(s): Cardiac catheterization(s): N/A PFT(s): N/A Vascular studies: N/A Other: N/A PT: No results found for requested labs [...] for requested labs within last 720 hours. DOS Physical Exam Medical history, medications, and allergies reviewed. Attestation: This PAT evaluation Airway Exam: Mallampati: II Cervical ROM: FROM Cardiovascular Exam: Rate: regular Rhythm: regular Pulmonary Exam: LCTA, bilat Anesthesia Plan ASA 3 My patient is approved for the Anesthesia Controlled Medication protocol when under care of a WRAPPING CLERK Planned anesthesia: General Informed Consent: Anesthesia plan and risks discussed with patient. Consent and Attending signature: I and/or my designee have discussed the anesthesia plan, benefits, possible alternatives, parental presence at time of induction (if indicated), and clinically relevant risks that may include dental injury, unintentional awareness, and/or other complications. The patient and/or parent/legal guardian understand, and agree to proceed. All questions answered. L ARCHIVIST L ARCHIVIST L ARCHIVIST L ARCHIVIST L ARCHIVIST L ARCHIVIST L ARCHIVIST documented in this encounter Consult Notes * Leydi Schwartz, PT - 07/16/2020 3:05 PM CST [facility] Physical Therapy Initial Evaluation Patient Name: Rowena Quesada Date of Service: 07/16/2020 Date of : 1965 Age: 55 y.o. female Room: [place] [address] Admit Date: 07/16/2020 Primary Diagnosis: MORBID (SEVERE) OBESITY DUE TO EXCESS CALORIES/SD LAP, IRINA RESTRICT PROC, LONGITUDINAL GASTRECTOMY Referring Practitioner: Thierno Blanc MD Subjective HPI: Rowena Quesada is a 55 y.o. female POD 0 LAPAROSCOPIC GASTRECTOMY - SLEEVE. Patient is agreeable to physical therapy evaluation. Past Medical History: Diagnosis Date ??? Anemia ??? Arthritis ??? Heart disease ??? Hypertension ??? Irritable bowel syndrome ??? Joint pain ??? Morbid obesity (CMS/HCC) ??? Supraventricular tachycardia by ECG (CMS/HCC) Past Surgical History: Procedure Laterality Date ??? SECTION ??? CHOLECYSTECTOMY ??? FUNCTIONAL ENDOSCOPIC SINUS SURGERY ??? KNEE ARTHROSCOPY W/ MENISCAL REPAIR Left 03/01/2020 ??? 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 No adverse s/s noted. Activity Tolerance: Endurance: Tolerates 10-20 minutes of activity with multiple rests. Pain Assessment: Location: pt report mild pain in abdomen during transfers Pain intervention: Cold applied, Repositioned, Ambulation, Exercise, Physical therapy, Rest and RN notified Cognition: Overall Cognitive Status: At Baseline Arousal: Lethargic Orientation: Oriented to person, Oriented to place, Oriented to time and Oriented to situation Following Commands: Follows one-step commands with increased time and Follows one-step commands with repetition Behavior: Easy to engage Sensation: WFL Lower Extremity Assessment: Strength: Grossly 3/5, patient able to lift BLE's against gravity. Bed Mobility: Patient performs supine to and from edge of bed with standby assistance (SBA). Verbal cues for log roll technique and sequencing. Transfers: Patient performs sit to and from stand with no device and standby assistance (SBA). Cues to use BUE's to push off bed. Stand <> sitting on toilet, verbal cues to use handle bar with UE for support. Gait: Patient ambulates x 20 feet with no device and contact guard assistance (CGA) progressing to SBA. Assistance for safety and technique. Stairs: Deferred this date due to increased lethargy. Gait belt was used for all out of bed mobility. Assessment Physical Therapy Diagnosis: Impaired joint mobility, motor function, muscle performance, and range of motion associated with localized inflammation Prognosis: Good Response to today???s treatment: Good Completed patient handoff and notified RN of patient???s location and functional status upon completion of session. Patient found in bed asleep this date upon therapist arrival. Daughter used to confirm background information as patient was drowsy throughout session. Patient left in bed, with call light in reach, and RN notified. Patient demonstrates deficiencies in the following areas: decreased strength, decreased range of motion, decreased endurance, decreased mobility and due to abdominal precautions. Patient would benefit from physical therapy intervention to address these impairments and functional limitations. Education: Patient and family has been educated on the role of PT, safety , precautions and mobility training. Education completed via explanation. Patient and family verbalized understanding. Barriers to discharge: Current mobility status Care Plan Goals established: 07/16/20 1. The patient will perform bed mobility including supine to/from sit with modified independence inorder to safely return home by 07/21/2020. Comments: Initiated 2. The patient will perform sit to/from stand transfers using none and modified independence in order to safely return home by 07/21/2020. Comments: Initiated 3. The patient will ambulate 300 feet using none and standby assistance (SBA) in order to safely return home by 07/21/2020. Comments: Initiated 4. The patient will ascend/descend 2 stairs with 1 handrail and contact guard assistance (CGA) in order to safely return home by 07/21/2020. Comments: Initiated 5. The patient will perform HEP with supervision or less per protocol in order to safely return home by 07/21/2020. Comments: Initiated Plan Physical therapy frequency: Twice a day Physical therapy interventions: bed mobility, gait training, stair training, therapeutic activity, therapeutic exercise, equipment evaluation and education, endurance training, balance training, functional transfer training, neuromuscular re-education and positioning Recommended equipment to safely discharge: none Recommended method of transportation at discharge: Personal vehicle with family Referrals Recommended: None Discharge Recommendation: Home with family, Home with intermittent assist Leydi Schwartz PT L ARCHIVIST * Olivia Nicole OT - 07/16/2020 12:45 PM CST [facility] Occupational Therapy Evaluation Patient Name: Rowena Quesada Date of Service: 07/16/2020 Date of : 1965 Age: 55 y.o.female Room: [place] [address] Admit Date: 07/16/2020 Primary Diagnosis: MORBID (SEVERE) OBESITY DUE TO EXCESS CALORIES/SD LAP, IRINA RESTRICT PROC, LONGITUDINAL GASTRECTOMY Referring Practitioner: Thierno Blanc MD Subjective HPI: Rowena Quesada is a 55 y.o. female POD 0 s/p Laparoscopic sleeve gastrectomy. Past Medical History: Diagnosis Date ??? Anemia ??? Arthritis ??? Heart disease ??? Hypertension ??? Irritable bowel syndrome ??? Joint pain ??? Morbid obesity (CMS/HCC) ??? Supraventricular tachycardia by ECG (CMS/HCC) Past Surgical History: Procedure Laterality Date ??? SECTION ??? CHOLECYSTECTOMY ??? FUNCTIONAL ENDOSCOPIC SINUS SURGERY ??? KNEE ARTHROSCOPY W/ MENISCAL REPAIR Left 03/01/2020 ??? NOSE SURGERY Precautions: Abdominal and Fall Risk Occupational Therapy Goal: pt wants to return to walking Patient Comment: I'm just really tired and sore. Prior Living Environment and Level of Function: Type of Home: 2 level home 4 [place], able to live on main floor Lives With: Significant other and Children Receives Help From: Significant other and Children int. 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 Fall within the last 6 months: Yes: brandie meniscus 12/2019 Objective Vitals: Blood pressure: 149/74 mmHg, Heart rate: 79 bpm, SPO2: 97% Comments: Pain Assessment: Pre-therapy pain: 5 /10 Post-therapy pain: 7 /10 Comments:abdominal area Cognition: Overall Cognitive Status: At Baseline Arousal: Delayed responses to stimuli and Lethargic Orientation: Oriented to person, Oriented to time and Oriented to situation Following Commands: Follows all commands and directions without difficulty Safety Judgement: Good awareness of safety precautions Problem Solving: Assistance required to identify errors made, Assistance required to generate solutions and Assistance required to implement solutions Behavior: Easy to engage RUE Assessment: Within functional limits dominant LUE Assessment: Within functional limits Pt reports no new numbness/tingling Activities of Daily Living Grooming: Patient completed grooming standing at sink with contact guard assistance (CGA) for safety, increased time and wash/dry hands. Lower Body Dressing: Patient completed lower body dressing sitting edge of bed with standby assistance (SBA) for safety,increased time to complete, donning/doffing right sock and donning/doffing left sock. Toileting: Patient completed toileting seated on toilet in bathroom with standby assistance (SBA) for safety, increased time to complete, clothing management up, clothing management down and perineal hygiene. Functional Mobility Bed Mobility: Patient performed supine to and from edge of bed and short sit with standby assistance (SBA). Patient required assistance for increased time, cues for log rolling, safety/balance. Functional Transfers: Patient performed sit to and from stand with contact guard assistance (CGA). Patient required assistance for safety, increased time. Toilet Transfers: Patient performed standard toilet transfer using no device with contact guard assistance (CGA).Patient required assistance for safety, increased time. Shower Transfers: Patient performed shower transfer using no device to standing with contact guard assistance (CGA). Patient required assistance for safety and increased time. Functional Ambulation: Patient ambulates x 40 feet with IV pole and contact guard assistance (CGA) to simulate home ambulation for safety/balance and increased time. *Gait belt used for all OOB mobility* Pt supine in bed upon arrival, lethargic throughout session and requires cues to keep eyes open throughout and attend to PLOF questions. Pt agreeable to therapy and daughter present throughout session. Pt sits at edge of bed and completes kathy/doff of B socks then stands and ambulates to bathroom, completes toileting. Washes hands at sink and completes shower transfer before returning to bed. Pt declines sitting in chair and pt educated on log roll and abdominal precautions, will need reinforcement. Pt supine in bed at end of session with call light in reach and ice donned, RN notified. Assessment Occupational Therapy Problem List: Patient has impairments including: ADLs, functional mobility andendurance. Patient would benefit from occupational therapy intervention to address these impairments and functional limitations. Prognosis:Good Completed patient handoff and notified RN of patient's location and functional status upon completion of session. Pt with good participation this date, daughter present throughout session. Education: Patient and family has been educated on the role of OT, safety, precautions and ADL re-training. Education completed via explanation and demonstration. Patient verbalized understanding andneeds ongoing reinforcement. Barriers to discharge: Current mobility status and Pain Care Plan Goals established: 07/16/20 1. The patient will perform dressing with modified independence in order to safely return home by 07/21/2020. a. Comments: Initiated 2. The patient will perform toileting plus transfer with modified independence in order to safely return home by 07/21/2020. a. Comments: Initiated 3. The patient will perform bathing with standby assistance (SBA) in order to promote heathy skin integrity for post op healing by 07/21/2020. a. Comments: Initiated 4. The patient will perform walk-in shower transfer with standby assistance (SBA) in order to safely return home by 07/21/2020. a. Comments: Initiated 5. The patient will recall abdominal/log roll precautions with no cueing in order to safely return home by 07/21/2020. a. initiated Plan Treatment frequency: Follow-up visit only Treatment interventions: ADL/Instrumental Activities of Daily Living , Balance training , Compensatory technique education, Endurance training , Equipment evaluation/education, Functional/therapeuticactivity, Functional mobility training and Parent/caregiver training and education Recommended equipment to safely discharge: shower chair and grab bars Comments: Pt with proper home setup Referrals Recommended: None. Discharge Recommendation: Home with family, Home with intermittent assist Comments: Recommend follow-up OT visit during hospital stay to increase independence/safety in ADLsthen return home with int. Assist from family. Olivia Nicole OT L ARCHIVIST documented in this encounter Nursing Notes * Caryn Saeed RN - 07/17/2020 5:31 PM CST Discharged home with instructions. Daughter here to transport via private vehicle. L ARCHIVIST documented in this encounter Miscellaneous Notes * Plan of Care - Caryn Saeed RN - 07/17/2020 1:17 PM CST Goals: Clinical Goals for the Shift: pain of 4 or less this shift,IS,ankle pumps,activity Summary: L ARCHIVIST * Plan of Care - Gladis Bray RN - 07/17/2020 4:05 AM CST Goals: Clinical Goals for the Shift: pain/nausea management, IS, SCDs, mobility, pedro I diet Summary: Problem: Health Behavior: Goal: Understanding of discharge needs will improve Outcome: Progressing Problem: Lack of Knowledge: Goal: Ability to state ways to decrease the risk of falls will improve Outcome: Progressing Problem: Safety: Goal: Will remain free from falls Outcome: Progressing Goal: Will remain free from injury from falls Outcome: Progressing Goal: Will remain free from falls and injury in home environment Outcome: Progressing Problem: Activity: Goal: Ability to tolerate increased activity will improve Outcome: Progressing Problem: Bowel/Gastric: Goal: Gastrointestinal status for postoperative course will improve Outcome: Progressing Problem: Lack of Knowledge: Goal: Verbalization of understanding the information provided will improve Outcome: Progressing Problem: Physical Regulation: Goal: Postoperative complications will be avoided or minimized Outcome: Progressing Problem: Respiratory: Goal: Ability to maintain a clear airway will improve Outcome: Progressing Problem: Self-Concept: Goal: Ability to verbalize positive feelings about self will improve Outcome: Progressing Problem: Sensory: Goal: Pain level will decrease Outcome: Progressing Problem: Skin Integrity: Goal: Demonstration of wound healing without infection will improve Outcome: Progressing L ARCHIVIST * Plan of Care - Kamala Wilson RN - 07/16/2020 2:35 PM CST Problem: Health Behavior: Goal: Understanding of discharge needs will improve Outcome: Progressing Problem: Lack of Knowledge: Goal: Ability to state ways to decrease the risk of falls will improve Outcome: Progressing Problem: Safety: Goal: Will remain free from falls Outcome: Progressing Goal: Will remain free from injury from falls Outcome: Progressing Goal: Will remain free from falls and injury in home environment Outcome: Progressing Problem: Bowel/Gastric: Goal: Gastrointestinal status for postoperative course will improve Outcome: Progressing Problem: Lack of Knowledge: Goal: Verbalization of understanding the information provided will improve Outcome: Progressing Problem: Physical Regulation: Goal: Postoperative complications will be avoided or minimized Outcome: Progressing Problem: Respiratory: Goal: Ability to maintain a clear airway will improve Outcome: Progressing Problem: Self-Concept: Goal: Ability to verbalize positive feelings about self will improve Outcome: Progressing Problem: Sensory: Goal: Pain level will decrease Outcome: Progressing Note: Pt reports 7/10 pain but is quite drowsy. Problem: Skin Integrity: Goal: Demonstration of wound healing without infection will improve Outcome: Progressing Problem: Activity: Goal: Ability to tolerate increased activity will improve Outcome: Not Progressing Note: Pivoted to commode. Pt refused therapy, but PT states she will reattempt later today. Goals: Clinical Goals for the Shift: pain/nausea management, IS, SCDs, mobility, pedro I diet L ARCHIVIST * Op Note - Thierno Blanc MD - 07/16/2020 10:23 AM CST Preoperative diagnosis: Morbid obesity secondary to excess calories Postoperative diagnosis: Morbid obesity secondary to excess calories Operative procedure: Laparoscopic sleeve gastrectomy Anesthesia: General endotracheal Attending physician: Dr. Felton Blanc Surgeon: Dr. Felton Blanc 1st administrative personal assistant: Riley Mukherjee MD Brief Clinical history: The patient was a 55 y.o. female with a long history of clinically severe obesity. Body mass index is 46 kg/m??.. She had failed medical management of her weight. She has obesity related comorbidities including hypertension, hypercholesterolemia and osteoarthritis affecting both knees . She was brought to the operating room for a laparoscopic sleeve gastrectomy. Intraoperative findings: 1. The stomach and spleen were both examined and found to be normal. The liver was infiltrated withfat consistent with steatosis. 2. A sleeve gastrectomy was created over a 40 Filipino bougie starting 6 cm proximal to the pylorus and going up to a point 2 cm lateral to the angle of His. 3. Pressurization of the sleeve with 60 cc of air showed good pressurization and no evidence of leak. Operative Procedure: The patient was placed on the operating table in the supine position and afterthe induction of general endotracheal anesthesia the abdomen was prepped and draped in the usual sterile fashion with ChloraPrep. A 0.25% Marcaine was used to infiltrate the dermis for local anesthesia in a total volume of 1 cc. A 1.5 cm incision was made 15 cm inferior and 10 cm to the left of thexiphoid process. A Veress needle was inserted into the abdomen through this incision and after a positive saline drop test the abdomen was insufflated with carbon dioxide to a pressure of 15 mm of mercury. A 12 mm trocar was inserted into the abdomen through this incision and a 10 mm 45 degree angled videolaparoscope was inserted through this port and the abdomen was explored with the above mentioned findings. A transversus abdominus plane block with 60 ml of 0.25% Marcaine was placed using a spinal needle to instill 10 ml aliquots in three sites along the anterior axillary line bilaterally. A 12 mm incision was made 17 cm inferior to the xiphoid. 5 mm subcostal incisions were made in the right midclavicular left midclavicular and subxiphoid positions. The patient was placed in the steep reverse Trendelenburg position and a 5 mm flexible liver retractor was placed through the right subcostal incision and used to elevate the left lateral section of the liver exposing the region of the p roximal stomach. The Harmonic scalpel was used to take down the gastroepiploic vessels from the greater curvature of the stomach starting 6 cm proximal to the pylorus and going up to and including the short gastric vessels until the left brandon of the diaphragm was dissected and exposed. An Endo SAKSHI 60 stapler with purple staple load buttressed with thin bovine pericardium strips was used to initiate a wedge gastrectomy transecting the greater curvature 6 cm proximal to the pylorus and angling towards the incisura angularis. A 40 Filipino bougie was passed down through the mouth into the stomach and along the lesser curvature until the tip was in the antropyloric region. The bougie was used as a guide for the creation of the sleeve. A total of 5 additional firings of the Endo SAKSHI 60 stapler with purple staple load buttressed with thin bovine pericardium strips were used to create the gastric sleeve. With each staple firing the stapler was laid adjacent to but not abutting against the bougie along the lesser curvature of the stomach. The last staple firing transected the greater curvature 2 cm lateral to the angle of His. There was good staple formation and good hemostasis all the way up and down the staple line. The bougie was removed and an orogastric tube was placed into the gastric sleeve. The distal stomach was occluded with a 10 mm bowel clamp. The sleeve was pressurized with60 cc of air while submerging it under saline irrigation and there was good pressurization and no evidence of leak. The liver retractor was removed. The wedge gastrectomy specimen was extracted through the left mid abdominal port site. The fascia of the left mid abdominal port site was closed with 0 Vicryl sutures x2 using a fascial closure device. The abdomen was desufflated, the ports were removed, the fascial sutures were tied down, and the skin incisions were closed with a running 4 O Monocryl subcuticular stitches. [place] cortez was applied and the patient was awoken in the operating Room extubated and brought to recovery area in stable condition. Estimated blood loss: 50 cc Fluids: 1400 cc of crystalloid Specimens: Wedge gastrectomy sent to pathology for permanent sections Complications: None Presence statement: It should be noted that Dr. Rachel Blanc was present during the entire duration of the operation. Prophylaxis statement: It should be noted that the patient received 3 g of Ancef IV within an hour prior to incision and was scheduled for a single postoperative dose on the evening after surgery. She also received 7500 U of unfractionated heparin and sequential compression devices for thromboprophy laxis. L ARCHIVIST documented in this encounter Plan of Treatment Not on file documented as of this encounter Procedures Procedure Name Priority Date/Time Associated Diagnosis Comments EGFR Routine 07/16/2020 11:00 PM LEGAL ARCHIVIST CBC WITHOUT DIFFERENTIAL Routine 07/16/2020 11:00 PM LEGAL ARCHIVIST BASIC METABOLIC PANEL Routine 07/16/2020 11:00 PM LEGAL ARCHIVIST LAPAROSCOPIC GASTRECTOMY - SLEEVE 07/16/2020 10:00 AM LEGAL ARCHIVIST Morbid obesity due to excess calories (CMS/HCC) SURGICAL PATHOLOGY Routine 07/16/2020 9: 46 AM LEGAL ARCHIVIST Morbid obesity due to excess calories (CMS/HCC) POCT HCG, URINE Routine 07/16/2020 9:37 AM LEGAL ARCHIVIST POCT COTININE Routine 07/16/2020 9:36 AM LEGAL ARCHIVIST documented in this encounter Results * eGFR (07/16/2020 11:00 PM LEGAL ARCHIVIST) eGFR >90 mL/min/1.7 3 m2 [facility] Comment: Interpretive Data Reference Interval Normal ?>/= 90 mL/min/1.73m2 Mildly decreased* ? 60 - 89 mL/min/1.73m2 Mildly to moderately decreased ?45 - 59 mL/min/1.73m2 Moderately to severely decreased ??30 - 44 mL/min/1.73m2 Severely decreased ?15 - 29 mL/min/1.73m2 Kidney Failure ?< 15 ??mL/min/1.73m2 *Relative to young adult level If -Fijian multiply value by 1.16. Estimated glomerular filtration rate is determined by the CKD-EPI equation recommended by the National Kidney Foundation (KDIGO 2012 Clinical Practice Guideline for the Evaluation and Management of Chronic Kidney Disease. Kidney Intnl Suppl Jul 2012;3:1). The CKD-EPI equation should not be used for patients with unstable renal function and has not been validated in children and those over 70. Current interpretive data was last reviewed 2016. Blood specimen (specimen) 07/16/2020 11:00 PM LEGAL ARCHIVIST 07/17/2020 5:37 AM LEGAL ARCHIVIST us Pee Mukherjee III, MD LAB BLOOD ORDER NICOLE Final Result [facility] [id number] [facility]. Department [place] [address] * (ABNORMAL) Basic metabolic panel (07/16/2020 11:00 PM LEGAL ARCHIVIST) Sodium 135 135 - 145 mmol/L [facility] Potassium, pl 4.4 3.3 - 4.9 mmol/L [facility] Chloride 103 97 - 110 mmol/L [facility] CO2 24 22 - 32 mmol/L [facility] Anion gap 8 2 - 15 mmol/L [facility] BUN 5(L) 8 - 25 mg/dL [facility] Creatinine 0.60 0.60 - 1.10 mg/dL [facility] Glucose 110 70 - 199 mg/dL [facility] Comment: Interpretive Data Fasting glucose >/= 126 [...] interpretive data was last revised 2017. Calcium 8.5 8.5 - 10.3 mg/dL [facility] Blood specimen (specimen) 07/16/2020 11:00 PM LEGAL ARCHIVIST 07/17/2020 5:37 AM LEGAL ARCHIVIST Pee Mukherjee III, MD LAB BLOOD ORDER NICOLE Final Result [facility] [id number] [facility]. Department [place] [address] * (ABNORMAL) CBC without differential (07/16/2020 11:00 PM LEGAL ARCHIVIST) WBC 12.1(H) 3.8 - 9.9 K/cumm [facility] Hgb 13.3 11.9 - 15.5 g/dL [facility] Hct 40.9 35.6 - 45.5 % [facility] Plt 311 150 - 400 K/cumm [facility] MPV 10.4 9.1 - 12.3 fL [facility] RBC 4.51 3.90 - 5.20 M/cumm [facility] MCV 90.7 81.3 - 96.4 fL [facility] MCH 29.5 27.1 - 33.3 pg [facility] MCHC 32.5 32.3 - 35.7 g/dL [facility] RDW CV 13.2 11.1 - 14.9 % [facility] RDW SD 44.2 35.7 - 48.1 fL [facility] NRBC abs 0.00 0.00 - 0.01 K/cumm [facility] Blood specimen (specimen) 07/16/2020 11:00 PM LEGAL ARCHIVIST 07/17/2020 5:37 AM LEGAL ARCHIVIST Pee Mukherjee III, MD LAB BLOOD ORDER NICOLE Final Result [facility] [id number] [facility]. [place] [address] * Surgical pathology (07/16/2020 9:46 AM LEGAL ARCHIVIST) Tissue (Gastrectomy, sleeve) 07/16/2020 9:46 AM LEGAL ARCHIVIST Narrative [facility] - 07/21/2020 2:33 PM LEGAL ARCHIVIST EPIC results best viewed via link to PDF [facility] [place] [address] SURGICAL PATHOLOGY REPORT FINAL Patient Name: ?? ROWENA QUESADA Gender: ??F : ??1965 (Age: 55) Address: ??[address] [place] [address] [place], [place] ??[address] Hospital #: ??[id number] Taken:07/16/2020 Received:07/16/2020 Reported: 07/21/2020 Patient Type: WC Inpatient Client ?[facility] Service: Surgery Location: [facility] ADMT Physician(s): ??Thierno Blanc M.D. Dr Baldomero Dominguez Diagnosis: A. ??Stomach, sleeve gastrectomy ? -Portion of stomach lined by oxyntic mucosa with no significant histopathologic abnormality fvw/07/21/2020 14:33 By this signature, I attest that the above diagnosis is based upon my personal examination of the slides(and/or other material indicated in the diagnosis). Cate Paredes M.D. Report Electronically Reviewed and Signed Out By ??Cate Paredes M.D. 07/21/2020 14:33:20 Microscopic Description and Comment: Microscopic examination substantiates the above diagnosis. Microscopic slide review and interpretation for this case was performed at [facility], Department of Surgical Pathology, [address] [facility] [id number], ??[place], [place] ??[address] ?? CLIA # [id number] History: The patient is a 55-year-old woman with morbid obesity. ??Operative procedure: Sleeve gastrectomy. Specimen(s) Received: A: Wedge gastrectomy Gross Description: Received in a single formalin filled container labeled with the patient's name and wedge gastrectomy is an 18.5 x 5.0 x 3.0 cm, wedge shaped portion of stomach with glistening, pink serosa. ??Opened to show pink-polanco rugal folds with no polyps or masses grossly appreciated. ??Labeled A1. ??Jar 2. mr2/07/16/2020 12:58 PA(s): Montse Martinez MS, PA (ASCP) By this signature, I attest that the above diagnosis is based upon my personal examination of the slides(and/or other material). Addenda/Procedures The performance characteristics of some immunohistochemical stains, fluorescence in-situ hybridization tests and immunophenotyping by flow cytometry cited in this report (if any) were determined by the Surgical Pathology Department at [facility] as part of an ongoing quality tech program and in compliance with federally mandated [...] determined by the Surgical Pathology Department of [facility]. ??It has not been cleared or approved by the U. S. Food and Drug Administration. IMAGES AND SCANNED DOCUMENTS, IF INCLUDED, ONLY VIEWABLE IN PDF VERSION OF REPORT Result Rajendra Blanc MD LAB PATHOLOGY ORDERABLES Final Result [facility] [address] [facility] [address] [place] [address] * POCT hCG, urine (07/16/2020 9:37 AM LEGAL ARCHIVIST) HCG, ur, POC Negative Lot Number [id number] QC Backgroud Clear Acceptable QC Control Line Acceptable Urine 07/16/2020 9:37 AM LEGAL ARCHIVIST Result Rajendra Blanc MD POINT OF CARE TEST ORDERABLES F inal Result * POCT cotinine (07/16/2020 9:36 AM LEGAL ARCHIVIST) Cotinine, POC Negative Lot Number [id number] QC Negative Control Acceptable QC Positive Control Acceptable Urine 07/16/2020 9:36 AM LEGAL ARCHIVIST Result Rajendra Blanc MD POINT OF CARE TEST ORDERABLES F inal Result documented in this encounter Visit Diagnoses Diagnosis Morbid obesity due to excess calories (HCC)- Primary documented in this encounter Admitting Diagnoses Diagnosis Morbid obesity due to excess calories (HCC) documented in this encounter Administered Medications Inactive Administered Medications - up to 3 most recent administrations Medication Order MAR Action Action Date Dose Rate Site acetaminophen (TYLENOL) tablet 1,000 mg 1,000 mg, oral, Once, On Wed07/16/20 at 0945, For 1 dose, Pre-Op Given 07/16/2020 9:13 AM LEGAL ARCHIVIST 1,000 mg acetaminophen (TYLENOL) tablet 1,000 mg 1,000 mg, oral, Every 8 hours scheduled, First dose on Wed07/16/20 at 1400, For 5 days, Indications: PainIndications:Pain Given 07/17/2020 2:06 PM LEGAL ARCHIVIST 1,000 mg Given 07/17/2020 7:07 AM LEGAL ARCHIVIST 1,000 mg Given 07/16/2020 9:01 PM LEGAL ARCHIVIST 1,000 mg ceFAZolin (ANCEF) 2,000 mg/20 mL in sterile water (premix) 2,000 mg 2,000 mg, intravenous, at 400 mL/hr, Administer over 3 Minutes, Once, On Wed07/16/20 at 1800, For 1 dose, Start 8 hours after last pre -op dose, Indications: Prophylaxis, SurgicalIndications:Prophylaxis, Surgical New Bag 07/16/2020 5:14 PM LEGAL ARCHIVIST 2,000 mg 400 mL/hr celecoxib (CeleBREX) capsule 200 mg 200 mg, oral, 2 times daily, First dose on Wed07/16/20 at 2100, Indications: PainIndications:Pain Given 07/17/2020 9:42 AM LEGAL ARCHIVIST 200 mg Given 07/16/2020 9:02 PM LEGAL ARCHIVIST 200 mg celecoxib (CeleBREX) capsule 400 mg 400 mg, oral, Once, On Wed07/16/20 at 0945, For 1 dose, Pre-Op Given 07/16/2020 9:13 AM LEGAL ARCHIVIST 400 mg cyclobenzaprine (FLEXERIL) tablet 10 mg 10 mg, oral, Every 8 hours scheduled, First dose on Wed07/16/20 at 2200, For 5 days Given 07/17/2020 2:06 PM LEGAL ARCHIVIST 10 mg Given 07/17/2020 7:07 AM LEGAL ARCHIVIST 10 mg Given 07/16/2020 9:02 PM LEGAL ARCHIVIST 10 mg dextrose 5% and sodium chloride 0.9% with potassium chloride 20 mEq/L infusion (premix) 125 mL/hr, intravenous, Continuous, Starting on Wed07/16/20 at 1330, For 24 hours New 07/16/2020 11:03 PM LEGAL ARCHIVIST 125 mL/hr 125 mL/hr 07/16/2020 2:05 PM LEGAL ARCHIVIST 125 mL/hr 125 mL/hr dilTIAZem CD/XR/XT (CARDIZEM CD,DILACOR XR) 24 hour capsule 120 mg 120 mg, oral, Nightly, First dose on Wed07/16/20 at 2100, Do not crush, chew, cut, dissolve, open or otherwise manipulate tablet/capsule., Indications: hypertension, can take up to two times per day, SVTIndications:hypertension,c an take up to two times per day, SVT Given 07/16/2020 9:03 PM LEGAL ARCHIVIST 120 mg enoxaparin (LOVENOX) syringe 40 mg 40 mg, subcutaneous, Every 12 hours scheduled, First dose on Wed07/16/20 at 2100, Indications: Deep Vein Thrombosis PreventionIndications:Deep Vein Thrombosis Prevention Given 07/17/2020 9:41 AM LEGAL ARCHIVIST 40 mg Left Lower Abdomen Given 07/16/2020 9:03 PM LEGAL ARCHIVIST 40 mg Le ft Lower Abdomen famotidine (PEPCID) tablet 20 mg 20 mg, oral, 2 times daily, First dose on Wed07/16/20 at 2100, Indications: non-bleeding gastric disorderIndications:non-bleeding gastric disorder Given 07/17/2020 9:42 AM LEGAL ARCHIVIST 20 mg Given 07/16/2020 9:04 PM LEGAL ARCHIVIST 20 mg gabapentin (NEURONTIN) capsule 600 mg 600 mg, oral, Once, On Wed07/16/20 at 0945, For 1 dose, Pre-Op Given 07/16/2020 9:13 AM LEGAL ARCHIVIST 600 mg heparin 10,000 unit/mL injection 7,500 Units 7,500 Units, subcutaneous, Once, On Wed07/16/20 at 0945, For 1 dose, Pre-Op, If not a revision., Indications: Deep Vein Thrombosis PreventionIndications:Deep Vein Thrombosis Prevention Given 07/16/2020 9:13 AM LEGAL ARCHIVIST 7,500 Units Right Lower Abdomen HYDROmorphone (DILAUDID) injection 0.2 mg 0.2 mg, intravenous, Administer over 2 Minutes, Every 5 min PRN, 2nd line for pain, Use as 1st line pain med for patients at [facility]. Use as 2nd line at after consulting with anesthesiologist., Starting on Wed07/16/20 at 1129, Phase I, Notify Anesthesiologist if total PACU dose reaches 2 mg for inpatients and 1 mg total for outpatients, and pain score 5/10 or more., Indications: PainIndications:Pain Given 07/16/2020 12:07 PM LEGAL ARCHIVIST 0.2 mg Given 07/16/2020 11:55 AM LEGAL ARCHIVIST 0.2 mg Given 07/16/2020 11:50 AM LEGAL ARCHIVIST 0.2 mg hyoscyamine (LEVSIN) sublingual tablet 125 mcg 125 mcg, oral, Every 6 hours scheduled, First dose on Wed07/16/20 at 1330, For 5 days, Indications: Urinary IncontinenceIndications:Urinary Incontinence Given 07/17/2020 12:49 PM LEGAL ARCHIVIST 125 mcg Given 07/17/2020 7:07 AM LEGAL ARCHIVIST 125 mcg Given 07/17/2020 12:50 AM LEGAL ARCHIVIST 125 mcg Lactated Ringer's (LR) infusion 30 mL/hr, intravenous, Continuous, Starting on Wed07/16/20 at 0945, Pre-Op, Use a 500 ml bag for End Stage Renal Disease Patients New Bag 07/16/2020 9:13 AM LEGAL ARCHIVIST 30 mL/hr 30 mL/hr metoprolol (LOPRESSOR) injection 5 mg 5 mg, intravenous, Administer over 1 Minutes, Every 30 min PRN, high blood pressure, For SBP >170 or DBP >100. Only give if heart rate is >70., Starting on Wed07/16/20 at 1601 ondansetron (ZOFRAN) injection 4 mg 4 mg, intravenous, Administer over 2 Minutes, Every 6 hours PRN, nausea, vomiting, Starting on Wed07/16/20 at 1250 Given 07/16/2020 6:34 PM LEGAL ARCHIVIST 4 mg ondansetron ODT (ZOFRAN-ODT) disintegrating tablet 4 mg 4 mg, oral, Every 4 hours PRN, nausea, vomiting, Starting on Wed07/17/20 at 0625 Given 07/17/2020 7:08 AM LEGAL ARCHIVIST 4 mg oxyCODONE (ROXICODONE) tablet 5 mg 5 mg, oral, Every 6 hours PRN, 1st line for pain, Starting on Wed07/16/20 at 1250, Indications: PainIndications:Pain Given 07/17/2020 12:51 PM LEGAL ARCHIVIST 5 mg Given 07/16/2020 11:03 PM LEGAL ARCHIVIST 5 mg Given 07/16/2020 4:52 PM LEGAL ARCHIVIST [address] (PROTONIX) extended release tablet 40 mg 40 mg, oral, Nightly, First dose (after last reorder) on Wed07/16/20 at 2100, Do not crush, chew, cut, dissolve, open or otherwise manipulate tablet/capsule., Indications: gerdIndications:gerd Given 07/16/2020 9:05 PM LEGAL ARCHIVIST 40 mg prochlorperazine (COMPAZINE) injection 5 mg 5 mg, intravenous, Every 10 min PRN, nausea, vomiting, Check with Anesthesiologist before administring, and ask about IV versus IM., Starting on Wed07/16/20 at 1129, For 2 doses, Phase I, If nausea/vomiting not relieved by ondansetron within 30 minutes or if ondansetron has been given within the last 6 hours. Given 07/16/2020 12:01 PM LEGAL ARCHIVIST 5 mg scopolamine patch 72 hour 1 patch 1 patch, transdermal, Administer over 72 Hours, Every 72 hours, First dose on Wed07/16/20 at 0945, For 1 dose, Pre-Op, Apply to Dr. Giraldo's patients, as well as to beach-chair position shoulder surgery patients, and to patients with a history of PONV and/or Motion Sickness. Do NOT administer to patients with a history of BPH or Glaucoma. Consult Anesthesiologist with any questions. In case of Urinary Retention, remove patch immediately and clean patch site with Alcohol., Indications: Motion Sickness, Prevention of Motion Sickness, Prevention of Post-Operative Nausea and VomitingIndications:Motion Sickness,Prevention of Motion Sickness,Prevention of Post-Operative Nausea and Vomiting Medication Applied 07/16/2020 9:14 AM LEGAL ARCHIVIST 1 patch Behind Right Ear documented in this encounter Discontinued Medications Medication Sig Discontinue Reason Start Date End Da te iron 18 mg tabletIndications:anem ia Take 18 mg by mouth nightly Stop Taking at Discharge 07/17/[address] (PROTONIX) 20 mg EC tabletIndications:gerd Take 20 mg by mouth nightly Stop Taking at Discharge 07/17/2020 documented as of this encounter Active and Recently Administered Medications Times are shown in LEGAL ARCHIVIST. Scheduled Medication Order 07/15/2020 07/16/2020 07/17/2020 acetaminophen (TYLENOL) tablet 1,000 mg (COMPLETED) 1,000 mg, oral, Once, On Wed07/16/20 at 0945, For 1 dose, Pre-Op 0913 (Given - Provider: Sara Rhoades RN) acetaminophen (TYLENOL) tablet 1,000 mg 1,000 mg, oral, Every 8 hours scheduled, First dose on Wed07/16/20 at 1400, For 5 days, Indications: Pain 1402 (Given - Provider: Kamala Wilson RN)2101 (Given - Provider: Gladis Bray RN) 0707 (Given - Provider: Gladis Bray RN)1406 (Given - Provider: Caryn Saeed RN) ceFAZolin (ANCEF) 1 gram/10 mL in sterile water (premix) 3,000 mg (COMPLETED) 3,000 mg, intravenous, at 600 mL/hr, Administer over 3 Minutes, Once, On Wed07/16/20 at 0945, For 1 dose, Pre-Op, Administer within 60 minutes of incision., Indications: Prophylaxis, Surgical 0955 (Given - Provider: Natalia Cheek CRNA) ceFAZolin (ANCEF) 2,000 mg/20 mL in sterile water (premix) 2,000 mg (COMPLETED) 2,000 mg, intravenous, at 400 mL/hr, Administer over 3 Minutes, Once, On Wed07/16/20 at 1800, For 1 dose, Start 8 hours after last pre -op dose, Indications: Prophylaxis, Surgical 171 (New Bag - Provider: Kamala Wilson, JENNIFER)171 (Stopped - Provider: Kamala Wilson, JENNIFER) celecoxib (CeleBREX) capsule 200 mg 200 mg, oral, 2 times daily, First dose on Wed07/16/20 at 2100, Indications: Pain 2101 (Given - Provider: Gladis Bray RN) 0942 (Given - Provider: Caryn Saeed, JENNIFER) celecoxib (CeleBREX) capsule 400 mg (COMPLETED) 400 mg, oral, Once, On Wed07/16/20 at 0945, For 1 dose, Pre-Op 0913 (Given - Provider: Sara Rhoades RN) cyanocobalamin (Vitamin B-12) tablet 500 mcg 500 mcg, oral, Daily, First dose on Wed07/18/20 at 0700, Indications: Prevention of Vitamin B12 Deficiency cyclobenzaprine (FLEXERIL) tablet 10 mg 10 mg, oral, Every 8 hours scheduled, First dose on Wed07/16/20 at 2200, For 5 days 2101 (Given - Provider: Gladis Bray, JENNIFER) 0707 (Given - Provider: Gladis Bray RN)1406 (Given - Provider: Caryn Saeed, JENNIFER) dilTIAZem CD/XR/XT (CARDIZEM CD,DILACOR XR) 24 hour capsule 120 mg 120 mg, oral, Nightly, First dose on Wed07/16/20 at 2100, Do not crush, chew, cut, dissolve, open or otherwise manipulate tablet/capsule., Indications: hypertension, can take up to two times per day, SVT 2102 (Given - Provider: Gladis Bray RN) docusate sodium (COLACE) capsule 100 mg 100 mg, oral, 2 times daily, First dose on Wed07/18/20 at 0700, Indications: constipation, stool softener enoxaparin (LOVENOX) syringe 40 mg 40 mg, subcutaneous, Every 12 hours scheduled, First dose on Wed07/16/20 at 2100, Indications: Deep Vein Thrombosis Prevention 2102 (Given - Provider: Gladis Bray RN) 940 (Given - Provider: Caryn Saeed, RN) famotidine (PEPCID) tablet 20 mg 20 mg, oral, 2 times daily, First dose on Wed07/16/20 at 2100, Indications: non-bleeding gastric disorder 2103 (Given - Provider: Gladis Bray RN) 42 (Given - Provider: Caryn Saeed, RN) gabapentin (NEURONTIN) capsule 600 mg (COMPLETED) 600 mg, oral, Once, On Wed07/16/20 at 0945, For 1 dose, Pre-Op 912 (Given - Provider: Sara Rhoades RN) heparin 10,000 unit/mL injection 7,500 Units (COMPLETED) 7,500 Units, subcutaneous, Once, On Wed07/16/20 at 0945, For 1 dose, Pre-Op, If not a revision., Indications: Deep Vein Thrombosis Prevention 912 (Given - Provider: Sara Rhoades, JENNIFER) hyoscyamine (LEVSIN) sublingual tablet 125 mcg 125 mcg, oral, Every 6 hours scheduled, First dose on Wed07/16/20 at 1330, For 5 days, Indications: Urinary Incontinence 1402 (Given - Provider: Kamala Wilson RN)1714 (Given - Provider: Kamala Wilson RN) 0050 (Given - Provider: Gladis Bray RN)0707 (Given - Provider: Gladis Bray RN)1249 (Given - Provider: Caryn Saeed, JENNIFER) multivit fjetsbdh-dpcz-HE-calcium (THERA-M) tablet 1 tablet 1 tablet, oral, Daily, First dose on Wed07/18/20 at 0700, Indications: Vitamin Deficiency Prevention pantoprazole DR (PROTONIX) extended release tablet 40 mg 40 mg, oral, Nightly, First dose (after last reorder) on Wed07/16/20 at 2100, Do not crush, chew, cut, dissolve, open or otherwise manipulate tablet/capsule., Indications: gerd 2104 (Given - Provider: Gladis Bray RN) scopolamine patch 72 hour 1 patch 1 patch, transdermal, Administer over 72 Hours, Every 72 hours, First dose on Wed07/16/20 at 0945, For 1 dose, Pre-Op, Apply to Dr. Giraldo's patients, as well as to beach-chair position shoulder surgery patients, and to patients with a history of PONV and/or Motion Sickness. Do NOT administer to patients with a history of BPH or Glaucoma. Consult Anesthesiologist with any questions. In case of Urinary Retention, remove patch immediately and clean patch site with Alcohol., Indications: Motion Sickness, Prevention of Motion Sickness, Prevention of Post-Operative Nausea and Vomiting 0914 (Medication Applied - Provider: Sara Rhoades RN) 1725 (Due: Medication Removed - Provider: Automatic Discharge Provider - Comment: Time automatically adjusted from order being discontinued) sodium chloride 0.9% flush 0.5-20 mL 0.5-20 mL, intra-catheter, Every 8 hours scheduled, First dose on Wed07/16/20 at 1400, Flush volume based on line type and size. , Indications: Flushing 1250 (Not Given - Provider: Kamala Wilson RN - Reason: IV Infusing)2112 (Not Given - Provider: Gladis Bray RN - Reason: IV Infusing) 0710 (Not Given - Provider: Gladis Bray RN - Reason: Loss of IV access)1529 (Not Given - Provider: Caryn Saeed RN - Reason: Loss of IV access) ursodioL (ACTIGALL) capsule 300 mg 300 mg, oral, 2 times daily, First dose on Wed07/18/20 at 0700, Indications: Cholelithiasis Prevention Continuous Medication Order 07/15/2020 07/16/2020 07/17/2020 dextrose 5% and sodium chloride 0.45% with potassium chloride 20 mEq/L infusion (premix)(Linked Group 1) 75 mL/hr, intravenous, Continuous, Starting on Wed07/17/20 at 1405 1529 (Not Given - Provider: Caryn Saeed RN - Reason: Loss of IV access) dextrose 5% and sodium chloride 0.9% with potassium chloride 20 mEq/L infusion (premix)(Linked Group 1) 125 mL/hr, intravenous, Continuous, Starting on Wed07/16/20 at 1330, For 24 hours 1405 (New Bag - Provider: Kamala Wilson, RN)2303 (New Bag - Provider: Gladis Bray, JENNIFER) Lactated Ringer's (LR) infusion (CANCELED) 30 mL/hr, intravenous, Continuous, Starting on Wed07/16/20 at 0945, Pre-Op, Use a 500 ml bag for End Stage Renal Disease Patients 0913 (New Bag - Provider: Sara Rhoades RN)1010 (Anesthesia Volume Adjustment - Provider: Natalia Cheek CRNA)1045 (Anesthesia Volume Adjustment - Provider: Natalia Cheek CRNA)1115 (Anesthesia Volume Adjustment - Provider: Natalia Cheek CRNA) Lactated Ringer's (LR) infusion 125 mL/hr, intravenous, Continuous, Starting on Wed07/16/20 at 1200, Phase I 1216 (Continued from OR - Provider: Sonam Carbajal RN)1404 (Stopped - Provider: Kamala Wilson, JENNIFER) PRN Medication Order 07/15/2020 07/16/2020 07/17/2020 albuterol HFA (PROVENTIL HFA,VENTOLIN HFA,PROAIR HFA) 90 mcg/actuation inhaler 1 puff 1 puff, inhalation, Every 6 hours PRN (dietitian therapeutic), wheezing, Starting on Wed07/16/20 at 1255, Indications: allergies bupivacaine (MARCAINE) 0.25 % (2.5 mg/mL) preservative free injection (CANCELED) As needed, Starting on Wed07/16/20 at 1028, Intra-Op 1028 (Given - Provider: Thierno Blanc MD) HYDROmorphone (DILAUDID) injection 0.2 mg (CANCELED) 0.2 mg, intravenous, Administer over 2 Minutes, Every 5 min PRN, 2nd line for pain, Use as 1st line pain med for patients at [facility]. Use as 2nd line at [facility] after consulting with anesthesiologist., Starting on Wed07/16/20 at 1129, Phase I, Notify Anesthesiologist if total PACU dose reaches 2 mg for inpatients and 1 mg total for outpatients, and pain score 5/10 or more., Indications: Pain 1140 (Given - Provider: Sonam Carbajal RN)1150 (Given - Provider: Sonam Carbajal RN)1155 (Given - Provider: Sonam Carbajal RN)1207 (Given - Provider: Sonam Carbajal RN)1212 (Not Given - Provider: Sonam Carbajal RN - Reason: Other - Comment: pt c/o nausea) metoprolol (LOPRESSOR) injection 5 mg 5 mg, intravenous, Administer over 1 Minutes, Every 30 min PRN, high blood pressure, For SBP >170 or DBP >100. Only give if heart rate is >70., Starting on Wed07/16/20 at 1601 ondansetron (ZOFRAN) injection 4 mg (CANCELED) 4 mg, intravenous, Administer over 2 Minutes, Every 6 hours PRN, nausea, vomiting, Starting on Wed07/16/20 at 1250 1834 (Given - Provider: Kamala Wilson RN) ondansetron ODT (ZOFRAN-ODT) disintegrating tablet 4 mg 4 mg, oral, Every 4 hours PRN, nausea, vomiting, Starting on Wed07/17/20 at 0625 0708 (Given - Provider: Gladis Bray RN) oxyCODONE (ROXICODONE) tablet 5 mg 5 mg, oral, Every 6 hours PRN, 1st line for pain, Starting on Wed07/16/20 at 1250, Indications: Pain 1652 (Given - Provider: Kamala Wilson RN)2303 (Given - Provider: Gladis Bray, JENNIFER) 1251 (Given - Provider: Caryn Saeed RN) prochlorperazine (COMPAZINE) injection 5 mg (CANCELED) 5 mg, intravenous, Every 10 min PRN, nausea, vomiting, Check with Anesthesiologist before administring, and ask about IV versus IM., Starting on Wed07/16/20 at 1129, For 2 doses, Phase I, If nausea/vomiting not relieved by ondansetron within 30 minutes or if ondansetron has been given within the last 6 hours. 1201 (Given - Provider: Sonam Carbajal RN) sodium chloride 0.9 % irrigation (CANCELED) As needed, Starting on Wed07/16/20 at 1029, Intra-Op 1029 (Given - Provider: Thierno Blanc MD) sodium chloride 0.9% flush 0.5-20 mL 0.5-20 mL, intra-catheter, As needed, line care, Starting on Wed07/16/20 at 1250, Flush volume based on line type and size. Flush before and after each use. , Indications: Flushing Linked Groups Order Group 1: dextrose 5% and sodium chloride 0.9% with potassium chloride 20 mEq/L infusion (premix)Jump to med 125 mL/hr, intravenous, Continuous, Starting on Wed07/16/20 at 1330, For 24 hours Followed by dextrose 5% and sodium chloride 0.45% with potassium chloride 20 mEq/L infusion (premix)Jump to med 75 mL/hr, intravenous, Continuous, Starting on Wed07/17/20 at 1405 documented in this encounter Orders Medications Ordered That Joqauin ht Not Have Been Administered Count Last Ordered Date First Ordered Date acetaminophen (TYLENOL) tablet 500 mg 1 albuterol HFA (PROVENTIL HFA ,VENTOLIN HFA,PROAIR HFA) 90 mcg/actuation inhaler 1 puff 1 07/16/2020 bupivacaine (MARCAINE) 0.25 % (2.5 mg/mL) preservative free injection 1 07/16/2020 ceFAZolin (ANCEF) 1 gram/10 mL in sterile water (premix) 3,000 mg 1 07/16/2020 cyanocobalamin (Vitamin B-12 ) tablet 500 mcg 1 07/16/2020 dextrose 5% and sodium chlor giulia 0.45% with potassium chloride 20 mEq/L infusion (premix) 1 07/16/2020 diphenhydrAMINE (BENADRYL) i njection 12.5 mg 1 07/16/2020 docusate sodium (COLACE) capsule 100 mg 1 1 09/16/2019 fentaNYL (SUBLIMAZE) preserv ative free injection 25 mcg 1 07/16/2020 HYDROcodone-acetaminophen (N ORCO) 5-325 mg per tablet 1 tablet 1 07/16/2020 labetaloL (NORMODYNE,TRANDAT E) injection 5 mg 1 07/16/2020 Lactated Ringer's (LR) infusion 1 0 lidocaine PF (XYLOCAINE) 10 mg/mL (1 %) preservative free injection 2-10 mg 1 07/16/2020 meperidine (DEMEROL) preserv ative free injection 12.5 mg 1 07/16/2020 metoprolol (LOPRESSOR) injection 5 mg 1 multivit hjuogeep-ieit-AA-ca lcium (THERA-M) tablet 1 tablet 1 07/16/2020 naloxone (NARCAN) 0.4 mg/mL injection 0.04-0.4 mg 1 07/16/2020 ondansetron (ZOFRAN) injection 4 mg 1 07/[address] (PROTONIX) e xtended release tablet 20 mg 1 07/16/2020 sodium chloride 0.9 % irrigation 1 07/16/20 20 sodium chloride 0.9% flush 0.5-20 mL 3 06/26 ursodioL (ACTIGALL) capsule 300 mg 1 2019 Diet Count Last Ordered Date First Orde red Date ADULT DISCHARGE DIET 2 07/17/2020 Nursing Count Last Ordered Date First Orde red Date DISCHARGE ACTIVITY 6 07/17/2020 DISCHARGE CALL PROVIDER 10 07/17/2020 DISCHARGE DRESSING 6 07/17/2020 DISCHARGE INSTRUCTIONS 5 07/17/2020 Consult Count Last Ordered Date First Orde red Date IP CONSULT TO NUTRITION SERVICES 1 07/16/20 20 documented in this encounter Care Teams Forest Manager Relationship Specialty Start Date End Date Baldomero Dominguez MD PCP - General 01/07/17 Jaciel Melo MD Supplier Quality Manager Cardiovascular Disease 04/12/19 2 documented as of this encounter
--- OUTSIDE RECORDS SUMMARY | 2024-07-11 07:31 | XMS_ITS | Encounter Summary ---
Author Organization [facility] Healthcare Address [address] [place] [address] Care Team Providers Care Hand Packager Name Role Phone Baldomero Dominguez MD Primary Care Provider Jaciel Melo MD Unavailable [phone] Encounter Details Date Type Department Care Team (Late st Contact Info) Description 07/16/2020 9:45 AM SECURITIES CONSULTANT - 07/16/2020 12:15 PM SECURITIES CONSULTANT Surgery [facility] Operating Room [address] [place] [address] Thierno Blanc MD [address] [facility] [id number] [place] [address] LAPAROSCOPIC GASTRECTOMY - SLEEVE Surgery Details Date/Time Status Location OR Service Patient Class Case Class Case Type Trauma Case? 07/16/2020 9:[address] [facility] OPERATING ROOM OR Minimally Invasive Surgery Surgery Admit Elective Panel 1 Procedure LRB Anes Op Region Wound Class Comments LAPAROSCOPIC GASTRECTOMY - SLEEVE N/A General Abdomen Class II - Clean Contaminated Surgeon Surgeon Role Service Panel Thierno Blanc MD Primary Minimally Invasive Cory zarina 1 Pee Mukherjee II, MD Resident - Assisting General Surgery 1 documented in this encounter Social History Tobacco Use Types Packs/Day Years Used Date Smoking Tobacco: Never Smokeless Tobacco: Never Alcohol Use Standard Drinks/Week Comments Yes 0 (1 standard drink = 0.6 oz pur e alcohol) occasional wine Comments No Sex and Gender Information Value Date Recorded Sex Assigned at Not on file Legal Sex Female 1:19 PM SECURITIES CONSULTANT Gender Identity Not on file Sexual Orientation Not on file documented as of this encounter Last Filed Vital Signs Vital Sign Reading Time Taken Comments Blood Pressure 160/76 07/16/2020 12:15 PM SECURITIES CONSULTANT Pulse 77 07/16/2020 12:15 PM SECURITIES CONSULTANT Temperature 36.4 ??C (97.5 ??F) 07/16/2020 11:[address] Respiratory Rate 16 07/16/2020 12:15 PM SECURITIES CONSULTANT Oxygen Saturation 97% 07/16/2020 12:15 PM SECURITIES CONSULTANT Inhaled Oxygen Concentration - - Weight - - Height 167.6 cm (5' 6 ) 07/16/2020 8:32 AM SECURITIES CONSULTANT Body Mass Index - - documented in this encounter Discharge Summaries * Rubia Burleson MD - 07/17/2020 5:25 PM CST Inpatient Discharge Summary BRIEF OVERVIEW Admitting Provider: Thierno Blanc MD Discharge Provider: No att. providers found Primary Care Physician at Discharge: Baldomero Dominguez MD [phone] Admission Date: 07/16/2020 Discharge Date: 07/17/2020 Admission Location: [facility] Problems/Diagnoses: Principal Problem: Morbid obesity due to [...] operatively was admitted to the surgery floor, [facility] post-operative bariatric pathway. There, she was advanced from a B1 to a B2 diet on POD1, which she tolerated without nausea. Her pain was controlled [...] diet plan given to you by the business continuity director. -Follow a no added sugar liquid diet. This includes skim milk, creamed soup, cream of wheat, protein shakes or no added sugar [place] Instant Breakfast -Drink 64 ounces of fluid [...] of urine Commonly known as: LEVSIN multivit lghkziyi-uhbd-PO-calcium 9 mg iron-400 mcg tablet Take 1 [...] Medicine, General Surgery Relationship: PCP - General [address] [place], [place] [id number] Next Steps: Follow up Cosigned by Thierno Blanc MD at 07/18/2020 3:08 PM SECURITIES CONSULTANT RITIES CONSULTANT RITIES CONSULTANT documented in this encounter Medications at Time of Discharge multivit yjjsgrfy-yowi-UM-fani cium (THERA-M) 9 mg iron-400 mcg tablet [...] times a day Patient will start dose /05/02/2020 3 docusate sodium (COLACE) 100 mg capsuleIndications:c [...] Last Filled Start Date End Date multivit hmfhdicz-nyua-AF-fani cium (THERA-M) 9 mg iron-400 mcg tablet [...] documented in this encounter Progress Notes * Padmini Keane DPT - 07/17/2020 2:00 PM CST Physical Therapy [facility] Physical Therapy Treatment Patient Name: Rowena Quesada Date of Service: 07/17/2020 Date of : 1965 Age: 55 y.o. female Room: [place] [address] Admit Date: 07/16/2020 Primary Diagnosis: MORBID (SEVERE) OBESITY DUE TO EXCESS CALORIES/AR LAP, IRINA RESTRICT PROC, LONGITUDINAL GASTRECTOMY Referring [...] up. Pt able to complete with modified Easley. Transfers: Patient performs sit to and from stand with no device and modified independence. Patient uses BUEs for force production. Pt completed toilet transfer with modified Easley. Gait: Patient ambulates 280 feet with no [...] Recommendation: Home with family Padmini Keane DPT RITIES CONSULTANT * Priti Canales, OT - 07/17/2020 11:45 AM CST Occupational Therapy [facility] Occupational Therapy Treatment Patient Name: Rowena Quesada Date of Service: 07/17/2020 Date of : 1965 Age: 55 y.o.female Room: [place] [address] Admit Date: 07/16/2020 Primary Diagnosis: MORBID (SEVERE) OBESITY DUE TO EXCESS CALORIES/AR LAP, IRINA RESTRICT PROC, LONGITUDINAL GASTRECTOMY Referring [...] explanation, teach back and demonstration. Patient and daughter, Velvet verbalized understanding and demonstrated understanding. Handouts Issued: [...] home from daughters and significant other. Priti Canales, OT RITIES CONSULTANT * Lisa Chairez, RD - 07/17/2020 10:12 AM CST Nutrition Assessment Reason for Assessment: Initial Nutrition Assessment, Consult/Referral and Diet Education-bariatric diet progression education Encounter Date: 07/17/20 10:12 AM Nutrition Assessment and Plan: Patient is a 55 y.o. female. Admit Dx: MORBID (SEVERE) OBESITY DUE TO EXCESS CALORIES/AR LAP, IRINA RESTRICT PROC, LONGITUDINAL GASTRECTOMY. Admitted [...] Bariatric Surgery Diet 2 Ad sajan Question: ([facility]) Diet type Answer: GI Diets 07/16/20 1250 [...] lb) Height: 167.6 cm (5' 6 ) [place]- [place]. Jeor Equation (Overweight or Obese Patients): 1883 Equation Chosen to Use by RD: [facility] Total Energy Needs: 1883 kcal Total Energy Needs + Fever Factor: 1883 Estimated Protein Needs Type of Weight Used for Estimated Protein : [place] Protein Needs Based on g/k.2 Total Protein [...] diet plan given to you by the business continuity director. -Follow a no added sugar liquid diet. This includes skim milk, creamed soup, cream of wheat, protein shakes or no added sugar [place] Instant Breakfast -Drink 64 ounces of fluid per day to maintain hydration (this includes protein shakes). -Protein goal: 60 grams per day Adult Discharge Diet Diet Type: Other (specify) Explanatory Comment: . B2 diet. -If you are healing well by your doctor's visit, you will be advanced to a pureed diet (food thinned with liquids or blenderized). Lisa Chairez, MPH, RDN, LD Office: [phone] RITIES CONSULTANT * Henrietta Unger, PT - 07/17/2020 8:53 AM CST [facility] Physical Therapy Treatment Patient Name: Rowena Quesada Date of Service: 07/17/2020 Date of : 1965 Age: 55 y.o. female Room: [address] Admit Date: 07/16/2020 Primary Diagnosis: MORBID (SEVERE) OBESITY DUE TO EXCESS CALORIES/AR LAP, IRINA RESTRICT PROC, LONGITUDINAL GASTRECTOMY Referring Practitioner: Thierno Blanc MD Subjective HPI: Rowena Quesdaa is a 55 y.o. female POD 1 [...] Recommendation: Home with family Henrietta Unger PT RITIES CONSULTANT * Rubia Burleson MD - 07/16/2020 4:00 [...] ppx: lovenox, SCDs Rubia Burleson MD 07/16/2020 RITIES CONSULTANT documented in this encounter H&P Notes * Pee Mukherjee III, MD - 07/16/2020 9:41 AM CST I have reviewed the H&P, examined the patient, and endorse the findings as written. Plan of Care : Based on the above findings, I consider Rowena Quesada to be an acceptable risk for : Procedure(s): LAPAROSCOPIC GASTRECTOMY - SLEEVE RITIES CONSULTANT Source Note - Rob Saunders MD - 07/09/2020 11:37 AM SECURITIES CONSULTANT Images from the original note were not included. [facility] Preoperative Assessment and Planning Preoperative Evaluation Record Evaluation type/location: CPAP [facility] Planned procedure site: [facility] OR Date: 07/09/20 Anesthesia Evaluation Rowena Quesada is a 55 y.o. female Procedure(s): LAPAROSCOPIC GASTRECTOMY - SLEEVE Pre-Op Diagnosis Codes: * Morbid obesity due to excess calories ([facility]) [E66.01] HISTORY HPI 55 year old female with history of HTN, GERD, SVTShe is scheduled for laparoscopic gastric sleeve with Dr. Blanc. Past Medical History Information obtained from: patient and chart. Neurological Pertinent negatives: neuromuscular disease; CVA/stroke; TIA; CEA; dementia/mild cognitive impairment and psychiatric history Cardiovascular + Hypertension + Other arrhythmia (taking Diltiazem) - PSVT. Pertinent negatives: LA ; CABG ; systolic/diastolic dysfunction w/o CHF [...] COVID19 testing to be performed on 07/13/2020. [facility] will contact patient to scheduletesting. . Patient has history of SVT. She [...] No stress test available, only requested by primary montessori teacher for chart completion Awaiting urine nicotine metabolites. [...] Medication protocol when under care of a HOSPITAL ADMISSIONS CLERK Planned anesthesia: General Informed Consent: Anesthesia [...] and agree to proceed. All questions answered. RITIES CONSULTANT RITIES CONSULTANT RITIES CONSULTANT RITIES CONSULTANT RITIES CONSULTANT RITIES CONSULTANT RITIES CONSULTANT * Thierno Blanc MD - 07/16/2020 9:05 AM CST I have reviewed the H&P, examined the patient, and endorse the findings as written. Plan of Care : Based on the above findings, I consider Rowena Quesada to be an acceptable risk for : Procedure(s): LAPAROSCOPIC GASTRECTOMY - SLEEVE RITIES CONSULTANT Source Note - Rob Saunders MD - 07/09/2020 11:37 AM SECURITIES CONSULTANT Images from the original note were not included. [facility] Preoperative Assessment and Planning Preoperative Evaluation Record Evaluation type/location: CPAP [facility] Planned procedure site: [facility] OR Date: 07/09/20 Anesthesia Evaluation Rowena Quesada is a 55 y.o. female Procedure(s): LAPAROSCOPIC GASTRECTOMY - SLEEVE Pre-Op Diagnosis Codes: * Morbid obesity due to excess calories ([facility]) [E66.01] HISTORY HPI 55 year old female with history of HTN, GERD, SVTShe is scheduled for laparoscopic gastric sleeve with Dr. Blanc. Past Medical History Information obtained from: patient and chart. Neurological Pertinent negatives: neuromuscular disease; CVA/stroke; TIA; CEA; dementia/mild cognitive impairment and psychiatric history Cardiovascular + Hypertension + Other arrhythmia (taking Diltiazem) - PSVT. Pertinent negatives: LA ; CABG ; systolic/diastolic dysfunction w/o CHF [...] COVID19 testing to be performed on 07/13/2020. [facility] will contact patient to schedule testing. . [...] laboratory results independently. Follow-up completed by: Promise Baazn NP on 07/10/20 at 10:43 AM Follow up note 2 Echo reviewed, entered into diagnostics. No stress test available, only requested by primary montessori teacher for chart completion Awaiting urine nicotine metabolites. [...] history of diabetes mellitus - (Added by Conv) ??? Hypertension Mother Family history of hypertension - (Added by Conv) ??? Obesity Mother Overweight - (Added by TW Conv) ??? Cancer Mother Family history of malignant neoplasm - (Added by Conv) PAT Physical Exam Airway Exam: Mallampati: [...] Medication protocol when under care of a HOSPITAL ADMISSIONS CLERK Planned anesthesia: General Informed Consent: Anesthesia [...] and agree to proceed. All questions answered. RITIES CONSULTANT RITIES CONSULTANT RITIES CONSULTANT RITIES CONSULTANT RITIES CONSULTANT RITIES CONSULTANT RITIES CONSULTANT documented in this encounter Consult Notes * Leydi Schwartz, PT - 07/16/2020 3:05 PM CST [facility] Physical Therapy Initial Evaluation Patient Name: Rowena Quesada Date of Service: 07/16/2020 Date of : 1965 Age: 55 y.o. female Room: [place] [address] Admit Date: 07/16/2020 Primary Diagnosis: MORBID (SEVERE) OBESITY DUE TO EXCESS CALORIES/AR LAP, IRINA RESTRICT PROC, LONGITUDINAL GASTRECTOMY Referring [...] and Independent with ambulation Driving: Yes Occupation: [employer] [place] Within the Last 6 Months: Yes: [...] Home with intermittent assist Leydi Schwartz PT RITIES CONSULTANT * Olivia Nicole, OT - 07/16/2020 12:45 PM CST [facility] Occupational Therapy Evaluation Patient Name: Rowena Quesada Date of Service: 07/16/2020 Date of : 1965 Age: 55 y.o.female Room: [address] Admit Date: 07/16/2020 Primary Diagnosis: MORBID (SEVERE) OBESITY DUE TO EXCESS CALORIES/AR LAP, IRINA RESTRICT PROC, LONGITUDINAL GASTRECTOMY Referring [...] mobility Home ADL Equipment: None Level of Easley: Independent with ADLs, Independent with transfers and Independent with ambulation Driving: Yes 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 return home with int. Assist from family. Olivia Nicole OT RITIES CONSULTANT documented in this encounter Nursing Notes * Caryn Saeed RN - 07/17/2020 5:31 PM CST Discharged home with instructions. Daughter here to transport via private vehicle. RITIES CONSULTANT documented in this encounter Miscellaneous Notes * Plan of Care - Caryn Saeed RN - 07/17/2020 1:17 PM CST Goals: Clinical Goals for the Shift: pain of 4 or less this shift,IS,ankle pumps,activity Summary: RITIES CONSULTANT * Plan of Care - Gladis Bray [...] healing without infection will improve Outcome: Progressing RITIES CONSULTANT * Plan of Care - Kamala Wilson [...] management, IS, SCDs, mobility, pedro I diet RITIES CONSULTANT * Op Note - Thierno Blanc MD - 07/16/2020 10:23 AM CST Preoperative diagnosis: Morbid obesity secondary to excess calories Postoperative diagnosis: Morbid obesity secondary to excess calories Operative procedure: Laparoscopic sleeve gastrectomy Anesthesia: General endotracheal Attending physician: Dr. Felton Blanc Surgeon: Dr. Felton Blanc 1st office clerk assistant: Riley Mukherjee MD Brief Clinical history: [...] sleeve gastrectomy was created over a 40 Khmer bougie starting 6 cm proximal to the [...] angling towards the incisura angularis. A 40 Khmer bougie was passed down through the mouth [...] a running 4 O Monocryl subcuticular stitches. [place] cortez was applied and the patient was [...] and sequential compression devices for thromboprophy laxis. RITIES CONSULTANT documented in this encounter Plan of Treatment Not on file documented as of this encounter Procedures Procedure Name Priority Date/Time Associated Diagnosis Comments EGFR Routine 07/16/2020 11:00 PM SECURITIES CONSULTANT CBC WITHOUT DIFFERENTIAL Routine 07/16/2020 11:00 PM SECURITIES CONSULTANT BASIC METABOLIC PANEL Routine 07/16/2020 11:00 PM SECURITIES CONSULTANT LAPAROSCOPIC GASTRECTOMY - SLEEVE 07/16/2020 10:00 AM SECURITIES CONSULTANT Morbid obesity due to excess calories (CMS/HCC) SURGICAL PATHOLOGY Routine 07/16/2020 9: 46 AM SECURITIES CONSULTANT Morbid obesity due to excess calories (CMS/HCC) POCT HCG, URINE Routine 07/16/2020 9:37 AM SECURITIES CONSULTANT POCT COTININE Routine 07/16/2020 9:36 AM SECURITIES CONSULTANT documented in this encounter Results * eGFR (07/16/2020 11:00 PM SECURITIES CONSULTANT) eGFR >90 mL/min/1.7 3 m2 ALICIA SHARMA Comment: Interpretive Data Reference Interval Normal ?>/= 90 mL/min/1.73m2 Mildly decreased* ? 60 - 89 mL/min/1.73m2 Mildly to moderately decreased ?45 - 59 mL/min/1.73m2 Moderately to severely decreased ??30 - 44 mL/min/1.73m2 Severely decreased ?15 - 29 mL/min/1.73m2 Kidney Failure ?< 15 ??mL/min/1.73m2 *Relative to young adult level If -Barb[place] multiply value by 1.16. Estimated glomerular filtration [...] 2016. Blood specimen (specimen) 07/16/2020 11:00 PM SECURITIES CONSULTANT 07/17/2020 5:37 AM SECURITIES CONSULTANT Pee Mukherjee III, MD LAB BLOOD ORDER NICOLE Final Result [facility] [address] [facility]. Department [place] [address] * (ABNORMAL) Basic metabolic panel (07/16/2020 11:00 PM SECURITIES CONSULTANT) Sodium 135 135 - 145 mmol/L [facility] Potassium, pl 4.4 3.3 - 4.9 mmol/L [facility] Chloride 103 97 - 110 mmol/L [facility] CO2 24 22 - 32 mmol/L [facility] Anion gap 8 2 - 15 mmol/L [facility] BUN 5(L) 8 - 25 mg/dL [facility] Creatinine 0.60 0.60 - 1.10 mg/dL [facility] Glucose 110 70 - 199 mg/dL [facility] Comment: Interpretive Data Fasting glucose >/= 126 [...] 2017. Calcium 8.5 8.5 - 10.3 mg/dL [facility] Blood specimen (specimen) 07/16/2020 11:00 PM SECURITIES CONSULTANT 07/17/2020 5:37 AM SECURITIES CONSULTANT Pee Mukherjee III, MD LAB BLOOD ORDER NICOLE Final Result Performing Organization Address [facility] Co de Phone Number ALICIA SHARMA [address] [employer] [place], [place] [id number] * (ABNORMAL) CBC without differential (07/16/2020 11:00 PM SECURITIES CONSULTANT) WBC 12.1(H) 3.8 - 9.9 K/cumm [facility] Hgb 13.3 11.9 - 15.5 g/dL [facility] Hct 40.9 35.6 - 45.5 % [facility] Plt 311 150 - 400 K/cumm [facility] MPV 10.4 9.1 - 12.3 fL [facility] RBC 4.51 3.90 - 5.20 M/cumm [facility] MCV 90.7 81.3 - 96.4 fL [facility] MCH 29.5 27.1 - 33.3 pg [facility] MCHC 32.5 32.3 - 35.7 g/dL [facility] RDW CV 13.2 11.1 - 14.9 % [facility] RDW SD 44.2 35.7 - 48.1 fL [facility] NRBC abs 0.00 0.00 - 0.01 K/cumm [facility] Blood specimen (specimen) 07/16/2020 11:00 PM SECURITIES CONSULTANT 07/17/2020 5:37 AM SECURITIES CONSULTANT Pee Mukherjee III, MD LAB BLOOD ORDER NICOLE Final Result Performing Organization Address City/[facility]/ZIP Co de Phone Number ALICIA SHARMA [address] [facility] [employer] [place], [place] [id number] * Surgical pathology (07/16/2020 9:46 AM SECURITIES CONSULTANT) Tissue (Gastrectomy, sleeve) 07/16/2020 9:46 AM SECURITIES CONSULTANT Narrative [facility] - 07/21/2020 2:33 PM SECURITIES CONSULTANT EPIC results best viewed via link to PDF [facility] [place] [address] SURGICAL PATHOLOGY REPORT FINAL Patient Name: ?? ROWENA QUESADA Gender: ??F : ??1965 (Age: 55) Address: ??[address] , [place], [place] ??[address] Hospital #: ??[id number] Taken:07/16/2020 Received:07/16/2020 Reported: 07/21/2020 Patient Type: WC Inpatient Client ?[facility] Service: Surgery Location: [facility] ADMT Physician(s): ??Gerry Adams Dr Diagnosis: A. ??Stomach, sleeve gastrectomy ? -Portion [...] interpretation for this case was performed at [facility], Department of Surgical Pathology, [address] [facility] [place] [id number], ??[place], [place] ??[address] ?? CLIA # [id number] History: The patient is a 55-year-old woman [...] A1. ??Jar 2. mr2/07/16/2020 12:58 PA(s): Montse Martinez, MS, PA (ASCP) By this signature, I attest that the above diagnosis is based upon my personal examination of the slides(and/or other material). Addenda/Procedures The performance characteristics of some immunohistochemical stains, fluorescence in-situ hybridization tests and immunophenotyping by flow cytometry cited in this report (if any) were determined by the Surgical Pathology Department at [facility] as part of an ongoing software quality assurance specialist program and in compliance with federally [...] determined by the Surgical Pathology Department of [facility]. ??It has not been cleared or approved by the U. S. Food and Drug Administration. IMAGES AND SCANNED DOCUMENTS, IF INCLUDED, ONLY VIEWABLE IN PDF VERSION OF REPORT Thierno Blanc MD LAB PATHOLOGY ORDERABLES Final Result Performing Organization Address [facility]/State/[facility] Co de Phone Number [facility] [address] [address] * POCT hCG, urine (07/16/2020 9:37 AM SECURITIES CONSULTANT) HCG, ur, POC Negative Lot Number [id number] QC Backgroud Clear Acceptable QC Control Line Acceptable Urine 07/16/2020 9:37 AM SECURITIES CONSULTANT Thierno Blanc MD POINT OF CARE TEST ORDERABLES F inal Result * POCT cotinine (07/16/2020 9:36 AM SECURITIES CONSULTANT) Cotinine, POC Negative Lot Number [id number] QC Negative Control Acceptable QC Positive Control Acceptable Urine 07/16/2020 9:36 AM SECURITIES CONSULTANT Thierno Blanc MD POINT OF CARE TEST ORDERABLES F inal Result documented in this encounter Visit Diagnoses Diagnosis Morbid obesity due to excess calories (HCC)- Primary Morbid obesity due to excess calories (HCC) documented in this encounter Admitting Diagnoses Diagnosis [...] days, Indications: PainIndications:Pain Given 07/17/2020 2:06 PM SECURITIES CONSULTANT 1,000 mg Given 07/17/2020 7:07 AM SECURITIES CONSULTANT 1,000 mg Given 07/16/2020 9:01 PM SECURITIES CONSULTANT 1,000 mg bupivacaine (MARCAINE) 0.25 % (2.5 mg/mL) preservative free injection As needed, Starting on Wed07/16/20 at 1028, Intra-Op Given 07/16/2020 10:28 AM SECURITIES CONSULTANT 60 mL Surgical Site celecoxib (CeleBREX) capsule 200 mg 200 mg, oral, 2 times daily, First dose on Wed07/16/20 at 2100, Indications: PainIndications:Pain Given 07/17/2020 9:42 AM SECURITIES CONSULTANT 200 mg Given 07/16/2020 9:02 PM SECURITIES CONSULTANT 200 mg cyclobenzaprine (FLEXERIL) tablet 10 mg 10 mg, oral, Every 8 hours scheduled, First dose on Wed07/16/20 at 2200, For 5 days Given 07/17/2020 2:06 PM SECURITIES CONSULTANT 10 mg Given 07/17/2020 7:07 AM SECURITIES CONSULTANT 10 mg Given 07/16/2020 9:02 PM SECURITIES CONSULTANT 10 mg dilTIAZem CD/XR/XT (CARDIZEM CD,DILACOR XR) 24 hour capsule 120 mg 120 mg, oral, Nightly, First dose on Wed07/16/20 at 2100, Do not crush, chew, cut, dissolve, open or otherwise manipulate tablet/capsule., Indications: hypertension, can take up to two times per day, SVTIndications:hypertension,c an take up to two times per day, SVT Given 07/16/2020 9:03 PM SECURITIES CONSULTANT 120 mg enoxaparin (LOVENOX) syringe 40 mg 40 mg, subcutaneous, Every 12 hours scheduled, First dose on Wed07/16/20 at 2100, Indications: Deep Vein Thrombosis PreventionIndications:Deep Vein Thrombosis Prevention Given 07/17/2020 9:41 AM SECURITIES CONSULTANT 40 mg Left Lower Abdomen Given 07/16/2020 9:03 PM SECURITIES CONSULTANT 40 mg Le ft Lower Abdomen famotidine (PEPCID) tablet 20 mg 20 mg, oral, 2 times daily, First dose on Wed07/16/20 at 2100, Indications: non-bleeding gastric disorderIndications:non-bleeding gastric disorder Given 07/17/2020 9:42 AM SECURITIES CONSULTANT 20 mg Given 07/16/2020 9:04 PM SECURITIES CONSULTANT 20 mg hyoscyamine (LEVSIN) sublingual tablet 125 mcg 125 mcg, oral, Every 6 hours scheduled, First dose on Wed07/16/20 at 1330, For 5 days, Indications: Urinary IncontinenceIndications:Urinary Incontinence Given 07/17/2020 12:49 PM SECURITIES CONSULTANT 125 mcg Given 07/17/2020 7:07 AM SECURITIES CONSULTANT 125 mcg Given 07/17/2020 12:50 AM SECURITIES CONSULTANT 125 mcg metoprolol (LOPRESSOR) injection 5 mg 5 mg, intravenous, Administer over 1 Minutes, Every 30 min PRN, high blood pressure, For SBP >170 or DBP >100. Only give if heart rate is >70., Starting on Wed07/16/20 at 1601 ondansetron ODT (ZOFRAN-ODT) disintegrating tablet 4 mg 4 mg, oral, Every 4 hours PRN, nausea, vomiting, Starting on Wed07/17/20 at 0625 Given 07/17/2020 7:08 AM SECURITIES CONSULTANT 4 mg oxyCODONE (ROXICODONE) tablet 5 mg 5 mg, oral, Every 6 hours PRN, 1st line for pain, Starting on Wed07/16/20 at 1250, Indications: PainIndications:Pain Given 07/17/2020 12:51 PM SECURITIES CONSULTANT 5 mg Given 07/16/2020 11:03 PM SECURITIES CONSULTANT 5 mg Given 07/16/2020 4:52 PM SECURITIES CONSULTANT [address] (PROTONIX) extended release tablet 40 mg 40 mg, oral, Nightly, First dose (after last reorder) on Wed07/16/20 at 2100, Do not crush, chew, cut, dissolve, open or otherwise manipulate tablet/capsule., Indications: gerdIndications:gerd Given 07/16/2020 9:05 PM SECURITIES CONSULTANT 40 mg sodium chloride 0.9 % irrigation As needed, Starting on Wed07/16/20 at 1029, Intra-Op Given 07/16/2020 10:29 AM SECURITIES CONSULTANT 1,000 mL Surgical Site documented in this encounter Discontinued Medications Medication Sig Discontinue Reason Start Date End Da te iron 18 mg tabletIndications:anem ia Take 18 mg by mouth nightly Stop Taking at Discharge 07/17/[address] (PROTONIX) 20 mg EC tabletIndications:gerd Take 20 mg by mouth nightly Stop Taking at Discharge 07/17/2020 documented as of this encounter Active and Recently Administered Medications Times are shown in SECURITIES CONSULTANT. Scheduled Medication Order 07/15/2020 07/16/2020 07/17/2020 acetaminophen [...] Kamala Wilson RN)2101 (Given - Provider: Gladis Bray, JENNIFER) 0707 (Given - Provider: Gladis Bray, JENNIFER)1406 (Given - Provider: Caryn Saeed RN) ceFAZolin [...] last pre -op dose, Indications: Prophylaxis, Surgical 1713 (New Bag - Provider: Kamala Wilson, JENNIFER)171 (Stopped - Provider: Kamala Wilson RN) celecoxib (CeleBREX) capsule 200 mg 200 mg, oral, 2 times daily, First dose on Wed07/16/20 at 2100, Indications: Pain 2101 (Given - Provider: Gladis Bray RN) 0942 (Given - Provider: Caryn Saeed RN) celecoxib (CeleBREX) capsule 400 mg (COMPLETED) 400 [...] 5 days 2101 (Given - Provider: Gladis Bray RN) 0707 (Given - Provider: Gladis Bray RN)1406 (Given - Provider: Caryn Saeed RN) dilTIAZem CD/XR/XT (CARDIZEM CD,DILACOR XR) 24 hour [...] 2102 (Given - Provider: Gladis Bray RN) 0941 (Given - Provider: Caryn Saeed, RN) famotidine (PEPCID) tablet 20 mg 20 mg, oral, 2 times daily, First dose on Wed07/16/20 at 2100, Indications: non-bleeding gastric disorder 2103 (Given - Provider: Gladis Bray RN) 0942 (Given - Provider: Caryn Saeed, RN) gabapentin (NEURONTIN) capsule 600 mg (COMPLETED) 600 mg, oral, Once, On Wed07/16/20 at 0945, For 1 dose, Pre-Op 09 (Given - Provider: Sara Rhoades, JENNIFER) heparin 10,000 unit/mL injection 7,500 Units (COMPLETED) 7,500 Units, subcutaneous, Once, On Wed07/16/20 at 0945, For 1 dose, Pre-Op, If not a revision., Indications: Deep Vein Thrombosis Prevention 912 (Given - Provider: Saar Rhoades RN) hyoscyamine (LEVSIN) sublingual tablet 125 mcg 125 mcg, oral, Every 6 hours scheduled, First dose on Wed07/16/20 at 1330, For 5 days, Indications: Urinary Incontinence 1402 (Given - Provider: Kamala Wilson RN)1714 (Given - Provider: Kamala Wilson RN) 0050 (Given - Provider: Gladis Bray RN)0707 (Given - Provider: Gladis Bray RN)1249 (Given - Provider: Caryn Saeed, RN) multivit zxouyqhi-fywu-KL-calcium (THERA-M) tablet 1 tablet 1 tablet, oral, [...] oral, 2 times daily, First dose on [place] 07/18/20 at 0700, Indications: Cholelithiasis Prevention Continuous Medication [...] hours 1405 (New Bag - Provider: Kamala Wilson RN)2303 (New Bag - Provider: Gladis Bray RN) Lactated Ringer's (LR) infusion (CANCELED) 30 mL/hr, [...] Sonam Carbajal RN)1404 (Stopped - Provider: Kamala Wilson RN) PRN Medication Order 07/15/2020 07/16/2020 07/17/2020 albuterol HFA (PROVENTIL HFA,VENTOLIN HFA,PROAIR HFA) 90 mcg/actuation inhaler 1 puff 1 puff, inhalation, Every 6 hours PRN (correspondence section supervisor), wheezing, Starting on Wed07/16/20 at 1255, Indications: allergies bupivacaine (MARCAINE) 0.25 % (2.5 mg/mL) preservative free injection (CANCELED) As needed, Starting on Wed07/16/20 at 1028, Intra-Op 1028 (Given - Provider: Thierno Blanc MD) HYDROmorphone (DILAUDID) injection 0.2 mg (CANCELED) 0.2 mg, intravenous, Administer over 2 Minutes, Every 5 min PRN, 2nd line for pain, Use as 1st line pain med for patients at [facility]. Use as 2nd line at [facility] [...] Kamala Wilson RN)2303 (Given - Provider: Gladis Bray RN) 1251 (Given - Provider: Caryn Saeed RN) [...] Count Last Ordered Date First Ordered Date ondansetron ODT (ZOFRAN-ODT) disintegrating tablet 4 mg 1 07/17/2020 acetaminophen (TYLENOL) tablet 1,000 mg 2 1 09/16/2019 acetaminophen (TYLENOL) tablet 500 mg 1 albuterol HFA (PROVENTIL HFA ,VENTOLIN HFA,PROAIR HFA) 90 mcg/actuation inhaler 1 puff 1 07/16/2020 ceFAZolin (ANCEF) 1 gram/10 mL in sterile water (premix) 3,000 mg 1 07/16/2020 ceFAZolin (ANCEF) 2,000 mg/2 0 mL in sterile water (premix) 2,000 mg 1 07/16/2020 celecoxib (CeleBREX) capsule 200 mg 1 07/16 celecoxib (CeleBREX) capsule 400 mg 1 07/16 cyanocobalamin (Vitamin B-12 ) tablet 500 mcg 1 07/16/2020 cyclobenzaprine (FLEXERIL) tablet 10 mg 1 1 09/16/2019 dextrose 5% and sodium chlor giulia 0.45% with potassium chloride 20 mEq/L infusion (premix) 1 07/16/2020 dextrose 5% and sodium chlor giulia 0.9% with potassium chloride 20 mEq/L infusion (premix) 1 07/16/2020 dilTIAZem CD/XR/XT (CARDIZEM CD,DILACOR XR) 24 hour capsule 120 mg 1 07/16/2020 diphenhydrAMINE (BENADRYL) i njection 12.5 mg 1 07/16/2020 docusate sodium (COLACE) capsule 100 mg 1 1 09/16/2019 enoxaparin (LOVENOX) syringe 40 mg 1 2019 famotidine (PEPCID) tablet 20 mg 1 07/16/20 20 fentaNYL (SUBLIMAZE) preserv ative free injection 25 mcg 1 07/16/2020 gabapentin (NEURONTIN) capsule 600 mg 1 heparin 10,000 unit/mL injec tion 7,500 Units 1 07/16/2020 HYDROcodone-acetaminophen (N ORCO) 5-325 mg per tablet 1 tablet 1 07/16/2020 HYDROmorphone (DILAUDID) injection 0.2 mg 1 07/16/2020 hyoscyamine (LEVSIN) subling ual tablet 125 mcg 1 07/16/2020 labetaloL (NORMODYNE,TRANDAT E) injection 5 mg 1 07/16/2020 Lactated Ringer's (LR) infusion 2 0 lidocaine PF (XYLOCAINE) 10 mg/mL (1 %) preservative free injection 2-10 mg 1 07/16/2020 meperidine (DEMEROL) preserv ative free injection 12.5 mg 1 07/16/2020 metoprolol (LOPRESSOR) injection 5 mg 1 multivit zvcrvbgd-idnb-AS-ca lcium (THERA-M) tablet 1 tablet 1 07/16/2020 naloxone (NARCAN) 0.4 mg/mL injection 0.04-0.4 mg 1 07/16/2020 ondansetron (ZOFRAN) injection 4 mg 2 07/16 oxyCODONE (ROXICODONE) tablet 5 mg [address] (PROTONIX) e xtended release tablet 20 mg 1 07/16/[address] (PROTONIX) e xtended release tablet 40 mg 1 07/16/2020 prochlorperazine (COMPAZINE) injection 5 mg 1 07/16/2020 scopolamine patch 72 hour 1 patch 1 020 sodium chloride 0.9% flush 0.5-20 mL 3 [...] 20 documented in this encounter Care Teams Hand Packager Relationship Specialty Start Date End Date Baldomero Dominguez MD PCP - General 01/07/17 Jaciel Melo MD Export Freight Specialist Cardiovascular Disease 04/12/19 2 documented as of this encounter
--- OUTSIDE RECORDS SUMMARY | 2024-07-11 07:31 | XMS_ITS | Encounter Summary ---
Author Organization [facility] Healthcare Address [address] [place] [address] Care Team Providers Care Senior Health Physics Technician Name Role Phone Baldomero Dominguez MD Primary Care Provider [phone] Jaciel Melo MD Unavailable [phone] Encounter Details Date Type Department Care Team (Late st Contact Info) Description 07/13/2020 4:45 PM LICENSED MENTAL HEALTH COUNSELOR Lab [address] [address] Pre-operative laboratory examination Social History Tobacco Use Types Packs/Day Years Used Date Smoking Tobacco: Never Smokeless Tobacco: Never Alcohol Use Standard Drinks/Week Comments Yes 0 (1 standard drink = 0.6 oz pur e alcohol) occasional wine Comments No Sex and Gender Information Value Date Recorded Sex Assigned at Not on file Legal Sex Female 1:19 PM LICENSED MENTAL HEALTH COUNSELOR Gender Identity Not on file Sexual Orientation Not on file documented as of this encounter Plan of Treatment Not on file documented as of this encounter Procedures Procedure Name Priority Date/Time Associated Diagnosis Comments COVID-19 CORONAVIRUS RNA Routine 07/13/2020 10:36 AM LICENSED MENTAL HEALTH COUNSELOR Pre-operative laboratory examination documented in this encounter Results * COVID-19 Coronavirus RNA Nasopharyngeal (07/13/2020 10:36 AM LICENSED MENTAL HEALTH COUNSELOR) COVID-19 RNA Not Detected [facility] Comment: Testing performed as a component of ??a specimen pool. ??Negative results should be treated as presumptive and, if inconsistent with clinical signs and symptoms or necessary for patient management, pooled samples should be tested individually. Negative results do not preclude SARS-CoV-2 infection and must not be used as the sole basis for patient management decisions. Negative results must be considered in the context of a patient? s recent exposures, history, presence of clinical signs and symptoms consistent with COVID-19. Interpretive Data Testing performed by the [facility] Molecular Infectious Disease Laboratory. The Novel Coronavirus Assay (COVID-19) Real Time RT-PCR assay is for in vitro diagnostic use under FDA emergency use authorization only. A negative RT-PCR result does not preclude infection with COVID-19 and should not be used as the sole basis for treatment or other patient management decisions. Additional sample types have been validated according to CLIA regulations. ?? Current Interpretive Data was last revised on 2019. First COVID-19 test? Unknown [facility] Comment:Testing performed by : [facility], [address] [place] [address]., [phone] Employeed in healthcare? Unknown [facility] Comment:Testing performed by : [facility], [address] [place] [address]., [id number] status? No [facility] Comment:Testing performed by : [facility], [address] [place] [address]., [id number] Group care resident? Unknown [facility] Comment:Testing performed by : [facility], [address] [place] [address]., [phone] Hospitalized? Unknown [facility] Comment:Testing performed by : [facility], [address] [place] [address]., [phone] Is patient in ICU? Unknown [facility] Comment:Testing performed by : [facility], [address] [place] [address]., [phone] Symptomatic as defined by CDC? No [facility] Comment:Testing performed by : [facility], [address] [facility], [place]., [address] Nasopharyngeal 07/13/2020 10 :36 AM LICENSED MENTAL HEALTH COUNSELOR 07/13/2020 9:34 PM LICENSED MENTAL HEALTH COUNSELOR Narrative [facility] - 07/14/2020 8:28 PM LICENSED MENTAL HEALTH COUNSELOR What is the reason for testing?->Screening prior to scheduled procedure or surgery Thierno Blanc MD LAB MICROBIOLOGY - [facility] SAMM REYNOSO Final Result Performing Organization Address City/State/[facility] Co de Phone Number [facility] Department [place] [address] documented in this encounter Visit Diagnoses Diagnosis Pre-operative laboratory examination Pre-procedural laboratory examination documented in this encounter Care Teams Senior Health Physics Technician Relationship Specialty Start Date End Date Baldomero Dominguez MD PCP - General 01/07/17 Jaciel Melo MD Assistant Media Buyer Cardiovascular Disease 04/12/19 2 documented as of this encounter
--- OUTSIDE RECORDS SUMMARY | 2024-07-11 07:31 | XMS_ITS | Encounter Summary ---
Author Organization [facility] Healthcare Address [address] [place] [address] Care Team Providers Care Food And Beverage Service Manager Name Role Phone Baldomero Dominguez MD Primary Care Provider Jaciel Melo MD Unavailable [phone] Encounter Details Date Type Department Care Team (Late st Contact Info) Description 07/16/2020 9:55 AM ENROLLMENT MANAGER Anesthesia Event [facility] Operating Room [address] [place] [address] Rob Saunders MD [address] [place] [address] Lorenzo Rahman NP [address] [facility] [phone] [place] [address] Anesthesia Record Procedure Summary Procedure Name Responsible Anesthesiologist Anesthesia Start Time Anesthesia Stop Time LAPAROSCOPIC GASTRECTOMY - SLEEVE (Abdomen) Rob Saunders MD 07/16/20 0955 07/16/20 1134 Events Date Time Event Comment 07/16/2020 0822 In Preop 0844 0955 An Start 1000 In Room 1000 AN Equip Check 1000 An Start Data 1006 An Induction The patient was reevaluated immediately before moderate or deep sedation use and before anesthesia induction. 1008 An Intubation 1010 Anesthesia Ready 1022 Proc Start 1023 Incision Start 1053 Quick Note Bougie advanced PSR. 1109 Quick Note Bougie removed. OGT placed and leak test performed with air PSR. Air vented out and OGT removed. 1126 An Extubation 1128 an stop data 1129 Proc Fin 1129 Out of Room 1134 Handoff to RN I completed my handoff [...] disposition at the time of handoff: PACU 1134 An Stop Meds Name Total midazolam 2 mg/2 mL 2 mg lidocaine 1 % PF 100 mg propofol 200 mg rocuronium 50 mg neostigmine syringe 1 mg/mL 2 mg glycopyrrolate 0.4 mg ondansetron PF 4 mg ketamine 10 mg/mL 30 mg ketamine (KETALAR) 100 mg in 90 mL sodiu m chloride 0.9% infusion 13.05 mg magnesium sulfate 2 g/50 mL in water (pr emix) 2 g dexmedetomidine infusion 32.62 mcg ceFAZolin (ANCEF) 1 gram/10 mL in steril e water (premix) 3,000 mg 3,000 mg Lactated Ringer's (LR) infusion 1,500 mL NS 0.9% 200 mL * Agents Name O2 Air Sevoflurane Inspired Sevoflurane * Blood No blood administrations on file. Lines, Drains, and Airways Type Details Placement Removal Peripheral IV Placement Date: 07/16/20; Placement Time: 906; Catheter Size: 20 G; Orientation: Left; Removal Date: 07/17/20 (not present upon assessment) 07/16/20 09 by Sara Rhoades RN 07/17/20 0000 by Caryn Saeed RN RETIRED Surgical Site 07/16/20; 951; Abdomen; 5 surgical access sites; 12/26/21; Removal date unknown/not present on admission 07/16/20 0952 by Radha Brower RN 12/26/21 0000 by Radha Solomon RN ETT Placement Date: 07/16/20; Placement Time: 1026 (created via procedure documentation); Mask Ventilation: 1; Technique: Direct laryngoscopy; Type: ETT - single; Single Lumen Tube Size: 7.5 mm; Cuffed: Yes; Laryngoscope: Cristóbal; Blade Size: 3; Location: Oral; Grade View: Grade IIa; Insertion Attempts: 1; Placement Verification: Auscultation, Capnometry; Removal Date: 07/16/20; Removal Time: 1126 07/16/20 1026 by Natalia Cheek CRNA 07/16/20 1126 by Natalia Cheek CRNA documented in this encounter Social History Tobacco Use Types Packs/Day Years Used Date Smoking Tobacco: Never Smokeless Tobacco: Never Alcohol Use Standard Drinks/Week Comments Yes 0 (1 standard drink = 0.6 oz pur e alcohol) occasional wine Comments No Sex and Gender Information Value Date Recorded Sex Assigned at Not on file Legal Sex Female 1:19 PM ENROLLMENT MANAGER Gender Identity Not on file Sexual Orientation Not on file documented as of this encounter OR Notes * Anesthesia Postprocedure Evaluation - Rob Saunders MD - 07/16/2020 1:35 PM CST Patient: Rowena Quesada Procedure Summary Date: 07/16/20 Room / Location: [facility] OPERATING ROOM 03 [facility] OPERATING ROOM Anesthesia Start: 954 Anesthesia Stop: 1133 Procedure: LAPAROSCOPIC GASTRECTOMY - SLEEVE (N/A Abdomen) Diagnosis: Morbid obesity due to excess calories (CMS/HCC) (Morbid obesity due to excess calories (CMS/HCC) [E66.01]) Surgeons: Thierno Blanc MD Responsible Provider: Rob Saunders MD Anesthesia Type: general ASA Status: 3 Anesthesia Type: general Last vitals BP 160/72 (BP Location: Right arm) Pulse 72 Temp 36.5 ??C (97.7 ??F) (Temporal) Resp 16 SpO2 96% Anesthesia Post Evaluation Patient location during evaluation: PACU Patient participation: complete - patient participated Level of consciousness: fully awake Pain score: 4 Pain management: adequate Airway patency: adequate and patent Evidence of recall: no Anesthetic complications: no Cardiovascular status: hemodynamically stable and acceptable Respiratory status: acceptable and nasal cannula Hydration status: euvolemic Pt is: normothermic Nausea/Vomiting status: none LLMENT MANAGER * Anesthesia Procedure Notes - Natalia Cheek CRNA - 07/16/2020 10:25 AM CSTAssociated Order(s): Airway Airway Patient location: OR Urgency: elective Indications for airway management: anesthesia Difficult airway: no Staff: Placed by: PANTS CLOSER: Natalia Cheek CRNA Airway prep: Preoxygenated: yes Patient position: sniffing Mask difficulty assessment: 1 - vent by mask Spontaneous ventilation during airway: absent Sedation level during airway: GA Final airway details: Final airway type: endotracheal airway Tube type: ETT ETT size: 7.5 mm Cuffed: yes Technique used for successful ETT placement: direct laryngoscopy Devices/Methods used in placement: intubating stylet and anterior pressure/BURP Insertion site: oral Blade type: Cristóbal Blade size: 3 Cormack-Lehane (direct): grade IIa - partial view of glottis Cuff volume: 7 mL Cuff inflated with: air ETT to teeth: 22 cm Placement verified by: auscultation and CO2 detection Airway secured with: silk tape Number of attempts: 1 LLMENT MANAGER * Anesthesia Preprocedure Evaluation - Rob Saunders MD - 07/09/2020 11:37 AM CST Images from the original note were not included. [facility] Preoperative Evaluation Record Evaluation type/location: [facility] Planned procedure site: [facility] OR Date: 07/09/20 Anesthesia Evaluation Rowena [...] arrhythmia (taking Diltiazem) - PSVT. Pertinent negatives: MS ; CABG ; systolic/diastolic dysfunction w/o CHF [...] COVID19 testing to be performed on 07/13/2020. [facility] will contact patient to schedule testing. [...] No stress test available, only requested by naval aircrewman for chart completion Awaiting urine nicotine metabolites. [...] Medication protocol when under care of a PANTS CLOSER Planned anesthesia: General Informed Consent: Anesthesia plan and risks discussed with patient. Consent and Attending signature: I and/or my designee have discussed the anesthesia plan, benefits, possible alternatives, parental presence at time of induction (if indicated), and clinically relevant risks that may include dental injury, unintentional awareness, and/or other complications. The patient and/or parent/legal guardian understand, and agree to proceed. All questions answered. LLMENT MANAGER LLMENT MANAGER LLMENT MANAGER LLMENT MANAGER LLMENT MANAGER LLMENT MANAGER LLMENT MANAGER documented in this encounter Plan of Treatment Not on file documented as of this encounter Procedures Procedure Name Priority Date/Time Associated Diagnosis Comments OK AN PROCEDURE PLACEHOLDER Routine 07/16/2020 10:25 AM ENROLLMENT MANAGER OK AN ELECTIVE ENDOTRACHEAL AIRWAY Routine 07/16/2020 10:25 AM ENROLLMENT MANAGER documented in this encounter Results * OK AN ELECTIVE ENDOTRACHEAL AIRWAY, OK AN PROCEDURE PLACEHOLDER (07/16/2020 10:25 AM ENROLLMENT MANAGER) Narrative Natalia Cheek CRNA - 07/16/2020 10:25 AM ENROLLMENT MANAGER Natalia Cheek CRNA ? 07/16/2020 10:26 AM Airway Patient location: OR Urgency: elective Indications for airway management: anesthesia Difficult airway: no Staff: Placed by: PANTS CLOSER: Natalia Cheek CRNA Airway prep: Preoxygenated: yes Patient position: sniffing Mask difficulty assessment: 1 - vent by mask Spontaneous ventilation during airway: absent Sedation level during airway: GA Final airway details: Final airway type: endotracheal airway Tube type: ETT ETT size: 7.5 mm Cuffed: yes Technique used for successful ETT placement: direct laryngoscopy Devices/Methods used in placement: intubating stylet and anterior pressure/BURP Insertion site: oral Blade type: Cristóbal Blade size: 3 Cormack-Lehane (direct): grade IIa - partial view of glottis Cuff volume: 7 mL Cuff inflated with: air ETT to teeth: 22 cm Placement verified by: auscultation and CO2 detection Airway secured with: silk tape Number of attempts: 1 Rob Saunders MD ANESTHESIA ORDERABLES Fi nal Result documented in this encounter Visit Diagnoses Not on filedocumented in this encounter Administered Medications Inactive Administered Medications - up to 3 most recent administrations Medication Order MAR Action Action Date Dose Rate Site ceFAZolin (ANCEF) 1 gram/10 mL in sterile water (premix) 3,000 mg 3,000 mg, intravenous, at 600 mL/hr, Administer over 3 Minutes, Once, On Wed07/16/20 at 0945, For 1 dose, Pre-Op, Administer within 60 minutes of incision., Indications: Prophylaxis, SurgicalIndications:Proph ylaxis, Surgical Given 07/16/2020 9:55 AM ENROLLMENT MANAGER 3,000 mg dexMEDEtomidine in 0.9% sodium chloride (PRECEDEX) 400 mcg/100 mL (4 mcg/mL) infusion (premix) intravenous, Continuous PRN, Starting on Wed07/16/20 at 1006, Anesthesia Intra-op New Bag 07/16/2020 10:06 AM ENROLLMENT MANAGER 0.5 mcg/kg/hr 7.41 mL/hr glycopyrrolate (ROBINUL) injection intravenous, Administer over 1 Minutes, As needed, Starting on Wed07/16/20 at 1116, Anesthesia Intra-op Given 07/16/2020 11:16 AM ENROLLMENT MANAGER 0.4 mg ketamine (KETALAR) 100 mg in 90 mL sodium chloride 0.9% infusion intravenous, Continuous PRN, Starting on Wed07/16/20 at 1006, Anesthesia Intra-op New Bag 07/16/2020 10:06 AM ENROLLMENT MANAGER 0.2 mg/kg/hr 11.86 mL/hr ketamine (KETALAR) injection intravenous, As needed, Starting on Wed07/16/20 at 1006, Anesthesia Intra-op Given 07/16/2020 10:06 AM ENROLLMENT MANAGER 30 mg lidocaine PF (XYLOCAINE) 10 mg/mL (1 %) preservative free injection As needed, Starting on 07/16/20 at 1006, Anesthesia Intra-op Given 07/16/2020 10:06 AM ENROLLMENT MANAGER 100 mg magnesium sulfate 2 g/50 mL in water (premix) intravenous, Administer over 60 Minutes, As needed, Starting on 07/16/20 at 1006, Anesthesia Intra-op Given 07/16/2020 10:06 AM ENROLLMENT MANAGER 2 g midazolam (VERSED) 1 mg/mL injection intravenous, As needed, Starting on Wed07/16/20 at 0955, Anesthesia Intra-op Given 07/16/2020 9:55 AM ENROLLMENT MANAGER 2 mg neostigmine injection intravenous, Administer over 3 Minutes, As needed, Starting on 07/16/20 at 1116, Anesthesia Intra-op Given 07/16/2020 11:16 AM ENROLLMENT MANAGER 2 mg ondansetron (ZOFRAN) injection intravenous, Administer over 2 Minutes, As needed, Starting on 07/16/20 at 1116, Anesthesia Intra-op Given 07/16/2020 11:16 AM ENROLLMENT MANAGER 4 mg propofoL (DIPRIVAN) IV intravenous, As needed, Starting on 07/16/20 at 1006, Anesthesia Intra-op Given 07/16/2020 10:06 AM ENROLLMENT MANAGER 200 mg rocuronium (ZEMURON) injection intravenous, As needed, Starting on 07/16/20 at 1006, Anesthesia Intra-op Given 07/16/2020 10:06 AM ENROLLMENT MANAGER 50 mg sodium chloride 0.9% infusion Continuous PRN, Starting on 07/16/20 at 1006, Anesthesia Intra-op New Bag 07/16/2020 10:06 AM ENROLLMENT MANAGER documented in this encounter Care Teams Food And Beverage Service Manager Relationship Specialty Start Date End Date Baldomero Dominguez MD PCP - General 01/07/17 Jaciel Melo MD Associate Account Executive Cardiovascular Disease 04/12/19 2 documented as of this encounter
--- OUTSIDE RECORDS SUMMARY | 2024-07-11 07:32 | XMS_ITS | Encounter Summary ---
Author Organization [facility] Address [address] [place] [address] Care Team Providers Care Music Manager Name Role Phone Baldomero Dominguez MD Primary Care Provider [phone] Jaciel Melo MD Unavailable [phone] Encounter Details Date Type Department Care Team (Late st Contact Info) Description 07/09/2020 Orders Only [facility] Testing Site - [facility]. [address] [place] [address] Afsaneh Trejo MD [address] [facility] [id number] [place] [id number] Pre-operative laboratory examination (Primary Dx) Social History Tobacco Use Types Packs/Day Years Used Date Smoking Tobacco: Never Smokeless Tobacco: Never Alcohol Use Standard Drinks/Week Comments Yes 0 (1 standard drink = 0.6 oz pur e alcohol) occasional wine Comments No Sex and Gender Information Value Date Recorded Sex Assigned at Not on file Legal Sex Female 1:19 PM NURSE SPECIALIST Gender Identity Not on file Sexual Orientation Not on file documented as of this encounter Progress Notes * Maria Antonia Ruff - 07/09/2020 12:30 PM CST Auth Provider: AFSANEH TREJO Provider: EDITH NURSE, PRE ADMISSION TESTING RM 1 Diagnosis: ?? Department: [facility] Pre Anes Testing Sched Instruct: ?? Comment: ?? Order Specific Questions Question Answer Comment Testing types: Pre-procedure ?? Date of Px/chemo/treatment/placement/transfer 07/16/2020 ?? Testing site patient will be sent to: [place], [place] ?? Date testing requested: 07/13/2020 ?? Testing: COVID-RNA ?? Does the patient currently work in a healthcare facility with direct patient contact? No ?? Is the patient a resident of a congregate care or living setting? No ?? Is the patient ? No ?? Please select the performing region: [facility] E SPECIALIST documented in this encounter Plan of Treatment Not on file documented as of this encounter Results * COVID-19 Coronavirus RNA Nasopharyngeal (07/13/2020 10:36 AM NURSE SPECIALIST) Pathologist [facility] COVID-19 RNA Not Detected [facility] Comment: Testing performed as a component of [...] COVID-19. Interpretive Data Testing performed by [facility]. The 2019-Novel [...] revised on 2019. First COVID-19 test? Unknown [facility] Comment:Testing performed by : [facility], [address] [facility] [address] [place]., [address] Employeed in healthcare? Unknown [facility] Comment:Testing performed by : [facility], [address] [facility], [address] status? No [facility] Comment:Testing performed by : [facility], [address] [facility], [address] Group care resident? Unknown [facility] Comment:Testing performed by : [facility], [address] [facility], [address] Hospitalized? Unknown [facility] Comment:Testing performed by : [facility], [address] [facility], [address] Is patient in ICU? Unknown [facility] Comment:Testing performed by : [facility], [address] [place] [address], [address] Symptomatic as defined by CDC? No [facility] Comment:Testing performed by : [facility], [address] [place] [address], [address] Nasopharyngeal 07/13/2020 10 :36 AM NURSE SPECIALIST 07/13/2020 9:34 PM NURSE SPECIALIST Narrative [facility] - 07/14/2020 8:28 PM NURSE SPECIALIST What is the reason for testing?->Screening prior to scheduled procedure or surgery Afsaneh Trejo MD LAB MICROBIOLOGY - GENERAL SAMM REYNOSO Final Result Performing Organization Address City/State/[facility] Phone Number [facility] [address] [facility] Department [place] [address] documented in this encounter Visit Diagnoses Diagnosis Pre-operative laboratory examination- Primary Pre-procedural laboratory examination Pre-operative laboratory examination Pre-procedural laboratory examination documented in this encounter Care Teams Music Manager Relationship Specialty Start Date End Date Baldomero Dominguez MD PCP - General 01/07/17 Jaciel Melo MD Gold Plater Cardiovascular Disease 04/12/19 2 documented as of this encounter
--- OUTSIDE RECORDS SUMMARY | 2024-07-11 07:32 | XMS_ITS | Encounter Summary ---
Author Organization [facility] Address [address] [place] [address] Phone Care Team Providers Care Flight Service Specialist Name Role Phone Baldomero Dominguez MD Primary Care Provider [phone] Jaciel Melo MD Unavailable Encounter Details Date Type Department Care Team (Late st Contact Info) Description 07/09/2020 Telephone [facility] Neuro Sleep [address] [place] [address] Eduardo Dawson, RPSGT Social History Tobacco Use Types Packs/Day Years Used Date Smoking Tobacco: Never Smokeless Tobacco: Never Alcohol Use Standard Drinks/Week Comments Yes 0 (1 standard drink = 0.6 oz pur e alcohol) occasional wine Comments No Sex and Gender Information Value Date Recorded Sex Assigned at Not on file Legal Sex Female 1:19 PM FIELD ENUMERATOR Gender Identity Not on file Sexual Orientation Not on file documented as of this encounter Miscellaneous Notes * Telephone Encounter - Eduardo Dawson, RPSGT - 07/09/2020 2:34 PM FIELD ENUMERATOR Returned patients phone call from [phone] today.Patient had questions about her sleep study and expressed concerns about getting a machine quickly if she does have sleep apnea. Patient was adamant that she does not want to reschedule her surgery. I told her there were several options we might employ if she is diagnosed with sleep apnea and gets started on treatment including lending patient a machine until she can get set up. . D ENUMERATOR documented in this encounter Plan of Treatment Not on file documented as of this encounter Visit Diagnoses Not on filedocumented in this encounter Care Teams Flight Service Specialist Relationship Specialty Start Date End Date Baldomero Dominguez MD PCP - General 01/07/17 Jaciel Melo MD Behavioral Health Technician Cardiovascular Disease 04/12/19 2 documented as of this encounter
--- OUTSIDE RECORDS SUMMARY | 2024-07-11 07:32 | XMS_ITS | Encounter Summary ---
Author Organization [facility] Address [address] [place] [address] Care Team Providers Care Risk And Compliance Analytics Director Name Role Phone Baldomero Dominguez MD Primary Care Provider [phone] Jaciel Melo MD Unavailable [phone] Encounter Details Date Type Department Care Team (Late st Contact Info) Description 07/09/2020 12:40 PM BASKETBALLS AND FOOTBALLS REVERSER Lab [facility] [address] [place] [address] Preoperative testing; Pre-op evaluation Social History Tobacco Use Types Packs/Day Years Used Date Smoking Tobacco: Never Smokeless Tobacco: Never Alcohol Use Standard Drinks/Week Comments Yes 0 (1 standard drink = 0.6 oz pur e alcohol) occasional wine Comments No Sex and Gender Information Value Date Recorded Sex Assigned at Not on file Legal Sex Female 1:19 PM BASKETBALLS AND FOOTBALLS REVERSER Gender Identity Not on file Sexual Orientation Not on file documented as of this encounter Plan of Treatment Not on file documented as of this encounter Procedures Procedure Name Priority Date/Time Associated Diagnosis Comments EGFR Routine 07/09/2020 12:40 PM BASKETBALLS AND FOOTBALLS REVERSER Preoperative testing NICOTINE METABOLITE SCREEN, URINE Routine 07/09/2020 12:40 PM BASKETBALLS AND FOOTBALLS REVERSER Pre-op evaluation CBC WITHOUT DIFFERENTIAL Routine 07/09/2020 12:40 PM BASKETBALLS AND FOOTBALLS REVERSER Preoperative testing BASIC METABOLIC PANEL Routine 07/09/2020 12:40 PM BASKETBALLS AND FOOTBALLS REVERSER Preoperative testing documented in this encounter Results * eGFR (07/09/2020 12:40 PM BASKETBALLS AND FOOTBALLS REVERSER) eGFR >90 mL/min/1.7 3 m2 [facility] Comment: Interpretive Data Reference Interval Normal ?>/= 90 mL/min/1.73m2 Mildly decreased* ? 60 - 89 mL/min/1.73m2 Mildly to moderately decreased ?45 - 59 mL/min/1.73m2 Moderately to severely decreased ??30 - 44 mL/min/1.73m2 Severely decreased ?15 - 29 mL/min/1.73m2 Kidney Failure ?< 15 ??mL/min/1.73m2 *Relative to young adult level If -Maldivian multiply value by 1.16. Estimated glomerular filtration [...] was last reviewed 2016. Blood specimen (specimen) 07/09/2020 12:40 PM BASKETBALLS AND FOOTBALLS REVERSER 07/09/2020 1:18 PM BASKETBALLS AND FOOTBALLS REVERSER us Lorenzo Rahman NP LAB BLOOD ORDERABLE S Final Result [facility] [address] [facility]. [place] [address] * Nicotine metabolite screen, urine (07/09/2020 12:40 PM BASKETBALLS AND FOOTBALLS REVERSER) Pathologist [facility] Nicotine, ur <5.0 <5.0 ng/mL [facility] Cotinine, ur <5.0 <5.0 ng/mL [facility] Anabasine ur <2.0 <2.0 ng/mL [facility] Comment: ADDITIONAL INFORMATION This test was developed and its performance characteristics determined by [facility] in a manner consistent with CLIA requirements. This test has not been cleared or approved by the U.S. Food and Drug Administration. Test Performed by: [facility] [place] [address] Bowl Sander: Pee Maria M.D. Ph.D.; CLIA# [id number] Nornicotine, ur <2.0 <2.0 ng/mL [facility] Urine 07/09/2020 12:4 0 PM BASKETBALLS AND FOOTBALLS REVERSER 07/09/2020 2:57 PM BASKETBALLS AND FOOTBALLS REVERSER us Thierno Blanc MD LAB URINE ORDERABLES Final Resu lt [facility] [address] [facility]. Department [place] [address] * Basic metabolic panel (07/09/2020 12:40 PM BASKETBALLS AND FOOTBALLS REVERSER) Pathologist [facility] Sodium 137 135 - 145 mmol/L [facility] Potassium, pl 4.1 3.3 - 4.9 mmol/L [facility] Chloride 100 97 - 110 mmol/L [facility] CO2 29 22 - 32 mmol/L [facility] Anion gap 8 2 - 15 mmol/L [facility] BUN 11 8 - 25 mg/dL [facility] Creatinine 0.67 0.60 - 1.10 mg/dL [facility] Glucose 112 70 - 199 mg/dL [facility] Comment: Interpretive Data Fasting glucose >/= 126 [...] interpretive data was last revised 2017. Calcium 9.5 8.5 - 10.3 mg/dL [facility] Blood specimen (specimen) 07/09/2020 12:40 PM BASKETBALLS AND FOOTBALLS REVERSER 07/09/2020 1:18 PM BASKETBALLS AND FOOTBALLS REVERSER us Lorenzo Rahman NP LAB BLOOD ORDERABLE S Final Result [facility] [address] [facility]. Department [place] [address] * (ABNORMAL) CBC without differential (07/09/2020 12:40 PM BASKETBALLS AND FOOTBALLS REVERSER) WBC 10.0(H) 3.8 - 9.9 K/cumm [facility] Hgb 13.9 11.9 - 15.5 g/dL [facility] Hct 42.9 35.6 - 45.5 % [facility] Plt 328 150 - 400 K/cumm [facility] MPV 10.0 9.1 - 12.3 fL [facility] RBC 4.78 3.90 - 5.20 M/cumm [facility] MCV 89.7 81.3 - 96.4 fL [facility] MCH 29.1 27.1 - 33.3 pg [facility] MCHC 32.4 32.3 - 35.7 g/dL [facility] RDW CV 13.1 11.1 - 14.9 % [facility] RDW SD 42.9 35.7 - 48.1 fL [facility] NRBC abs 0.00 0.00 - 0.01 K/cumm [facility] Blood specimen (specimen) 07/09/2020 12:40 PM BASKETBALLS AND FOOTBALLS REVERSER 07/09/2020 1:18 PM BASKETBALLS AND FOOTBALLS REVERSER us Lorenzo Rahman [employer]ER LAB BLOOD ORDERABLE S Final Result [facility] [address] [facility]. Department [place] [address] documented in this encounter Visit Diagnoses Diagnosis Preoperative testing Unspecified pre-operative examination Pre-op evaluation documented in this encounter Care Teams Risk And Compliance Analytics Director Relationship Specialty Start Date End Date Baldomero Dominguez MD PCP - General 01/07/17 Jaciel Melo MD Corporate Compliance Officer Cardiovascular Disease 04/12/19 2 documented as of this encounter
--- OUTSIDE RECORDS SUMMARY | 2024-07-11 07:32 | XMS_ITS | Encounter Summary ---
Author Organization [facility] Address [address] [place] [address] Phone Care Team Providers Care Bakery Products Checker Name Role Phone Baldomero Dominguez MD Primary Care Provider [phone] Jaciel Melo MD Unavailable [phone] Reason for Visit * Reason Onset Date Comments Test Results 07/10/2020 Encounter Details Date Type Department Care Team (Late st Contact Info) Description 07/10/2020 Documentation [facility] Neuro Sleep [address] [place] [address] Olivia Klein MD [address] [place] [address] Test Results Social History Tobacco Use Types Packs/Day Years Used Date Smoking Tobacco: Never Smokeless Tobacco: Never Alcohol Use Standard Drinks/Week Comments Yes 0 (1 standard drink = 0.6 oz pur e alcohol) occasional wine Comments No Sex and Gender Information Value Date Recorded Sex Assigned at Not on file Legal Sex Female 1:19 PM OPERATIONS MANAGER/COORDINATOR Gender Identity Not on file Sexual Orientation Not on file documented as of this encounter Progress Notes * Olivia Klein MD - 07/10/2020 7:43 AM CST In-Lab Sleep Study Prelim Note HPI: 54 year old woman with Crohn's disease, paroxysmal supraventricular tachycardia, and BMI of 46?? who presents with symptoms suggestive of obstructive sleep apnea including daytime sleepiness and poorsleep quality. A home sleep apnea test was obtained, however the test results did not confirm clinically significant sleep apnea. However, due to high clinical suspicion, an in-lab attended polysomnogram was obtained. Data: Total Sleep Time: 4 hr 35 min Sleep efficiency: 69.7% 3% AHI: 6.3 (65.7 REM dependent) 4% AHI: 3.9 (45.7 REM dependent) O2 Cristi: 86% Conclusion/Plan: Mild TRACE (severe in REM) Recommend PAP: 4-16 cm H2O Primary Provider: [facility] visit date: 06/14/20 Staffed with: Dr. Correa Communications: Patient preferred phone number: [phone] 9:40 - spoke with patient. Discussed how overall she has mild sleep apnea but during REM she has severe sleep apnea. We discussed how in the lab she likely got less than normal of REM sleep. Recommended that she go forth with PAP treatment. Patient brought up that she was getting bariatric surgery in approximately 1 week and her doctor recommended that if she were positive for sleep apnea she would need to be on support for 5-6 days before her surgery. Based on the overall mild sleep apnea seen during the study there should be no needto delay surgery until she starts treatment for the TRACE. This can start after her surgery. Patient curious if she may no longer need PAP after significant weight loss, which I said that it is a possibility. If this were to occur it would likely be after a significant amount of weight was lost, which would not be immediate. We can always re-evaluate her need for PAP as time goes on (like if she starts feeling like the pressure is too high). She understands that she may need to stay on PAP despite weight loss. Message left on voicemail for Velvet (bariatric surgery nurse) to update on our recommendation to not delay her surgery and initiation of treatment for mild TRACE is fine to start after surg Olivia Klein MD Sleep Medicine Clinical Fellow man. ATIONS MANAGER/COORDINATOR documented in this encounter Plan of Treatment Not on file documented as of this encounter Visit Diagnoses Not on filedocumented in this encounter Care Teams Bakery Products Checker Relationship Specialty Start Date End Date Baldomero Dominguez MD PCP - General 01/07/17 Jaciel Melo MD Seed Cutter Cardiovascular Disease 04/12/19 2 documented as of this encounter
--- OUTSIDE RECORDS SUMMARY | 2024-07-11 07:32 | XMS_ITS | Encounter Summary ---
Author Organization [facility] Address [address] [place] [address] Phone Care Team Providers Care Airline Mechanic Name Role Phone Baldomero Dominguez MD Primary Care Provider [phone] Jaciel Melo MD Unavailable [phone] Reason for Visit * Consultation (Routine) - Closed Specialty Diagnoses / Procedures Referred By Vianca montiel Referred To Contact Neurology Diagnoses Sleep apnea, unspecified type Referral, Self [facility] Neuro Sleep [address] [place] [address] Phone: tel: fax: Referral ID Status Reason Start Date Expiration Date V isits Requested Visits Authorized [id number] Closed Specialty Services Required 07/01/2020 07/31/2021 1 1 Encounter Details Date Type Department Care Team (Latest Contact Info) Description 07/09/2020 7:30 PM PARKING ENFORCEMENT OFFICER Procedure visit [facility] Neuro Sleep [address] [place] [address] Hypersomnia; TRACE (obstructive sleep apnea) Social History Tobacco Use Types Packs/Day Years Used Date Smoking Tobacco: Never Smokeless Tobacco: Never Alcohol Use Standard Drinks/Week Comments Yes 0 (1 standard drink = 0.6 oz pur e alcohol) occasional wine Comments No Sex and Gender Information Value Date Recorded Sex Assigned at Not on file Legal Sex Female 1:19 PM PARKING ENFORCEMENT OFFICER Gender Identity Not on file Sexual Orientation Not on file documented as of this encounter Last Filed Vital Signs Vital Sign Reading Time Taken Comments Blood Pressure 146/89 07/09/2020 7:53 PM PARKING ENFORCEMENT OFFICER Pulse 94 07/09/2020 7:53 PM PARKING ENFORCEMENT OFFICER Temperature 36.7 ??C (98 ??F) 07/09/2020 7:53 PM PARKING ENFORCEMENT OFFICER Respiratory Rate - - Oxygen Saturation - - Inhaled Oxygen Concentration - - Weight 129.3 kg (285 lb) 07/09/2020 7:53 PM PARKING ENFORCEMENT OFFICER Height 167.6 cm (5' 6 ) 07/09/2020 7:53 PM PARKING ENFORCEMENT OFFICER Body Mass Index 46 07/09/2020 7:53 PM PARKING ENFORCEMENT OFFICER documented in this encounter Progress Notes * Odette Correa MD - 07/09/2020 7:30 PM CSTAssociated Order(s): PSG- Sleep Provider Use Only PSG-Sleep Provider Use Only Date/Time: 07/09/2020 10:00 PM Performed by: Odette Correa MD Authorized by: Jamie Kevin NP RE: Rowena Quesada : 1965 PEDRITO: 07/09/2020 ALL NIGHT POLYSOMNOGRAM Clinical History: Rowena Quesada is a 54 year old woman with Crohn's disease, paroxysmal supraventricular tachycardia, and BMI of 46?? who presents with daytime sleepiness and poor sleep quality. A home sleep apnea test was obtained which did not confirm clinically significant sleep apnea. However, due to high clinic al suspicion, an in-lab attended polysomnogram was obtained. Height: 66 inches, Weight: 285 lb, BMI: 46 kg/m??, Neck Circumference: 16 inches Polysomnographic Findings: Unless otherwise noted, polysomnogram was recorded and scored in accordance with recommended parameters as outlined in the [place] [employer] Manual for the Scoring of Sleep and Associated Events, Version 2.6. Hypopneas were scored 1) in accordance with recommended (3%) parameters as outlined in Chapter VIII, Part 1: Rules for Adults, Category D, Section 1A, defined by 3% oxygen desaturation or arousal in addition to reduction in flow, and 2) additionally scored by acceptable (4%) parameters as outlined in Chapter VIII, Part 1: Rules for Adults, Category D, Section 1B, definedby 4% oxygen saturation in addition to reduction in flow. During all night polysomnography, the patient slept for 274 minutes out of 394 minutes in bed. Lights Out occurred at 22:52 and Lights On occurred at 05:26. Sleep latency was 12 minutes and REM latency was 227 minutes. Patient experienced a sleep efficiency of 69.7%. Respiratory monitoring using nasal/oral thermistor, pressure transducer, and polyvinylidene fluoride (PVDF) effort belts revealed a 3% apnea/hypopnea index (3% AHI) of 6.3 events per hour of sleep, a4% apnea-hypopnea index (4% AHI) of 3.9 events per hour of sleep, a central apnea index (CARIDAD) of 0.2 and a 3% central apnea-hypopnea index (CAHI) of 0.2. The patient experienced 0.0 obstructive apneas, 0.0 mixed apneas, 0.2 central apneas, 6.1 obstructive 3% hypopneas, 0 central 3% hypopneas per hour of sleep. There was a 3% AHI of 1.4 events per hour of NREM sleep, and a 3% AHI of 65.7 events per hour of REM sleep. No supine REM was obtained during this study.The patient had a 3% AHI of 0.0 events per hour of sleep in the supine position, N/A events per hour of sleep in the prone position, and 6.7 events per hour of sleep in the lateral position. The patient had a baseline saturation of 94-97% while awake. During NREM sleep, the baseline SpO2 average range was 90-95%. During REM sleep, the baseline SpO2 average range was 90-93%. Desaturations associated with abnormal breathing events were in the 90-92% range during NREM sleep and 86-92% range during REM sleep. The lowest SpO2 during the study was 86%. Patient spent 10.8 minutes with SpO2 less than 89%. The snoring microphone and oil bay technician observation revealed rare snores. EMG monitoring of the tibialis anterior muscle revealed 0.0 periodic leg movements per hour of sleep. There were 27.8 arousals per hour of sleep for no apparent reason. EKG monitoring revealed sinus rhythm. If applicable, determination of sufficient AHI to initiate treatment in accordance with split nightstart protocol was based on 3% AHI. The patient did not meet criteria to start a split study. Interpretation: This all night polysomnogram provides evidence of mild obstructive sleep apnea which is in the severe range during REM sleep based on an overall 3% AHI of 6.3 and a 4% AHI of 3.9 events per hour of sleep. Given the patient's diagnosis and medical history, the patient would likely benefit from treatment with positive airway pressure (PAP). A PAP titration was not performed based on AASM standards,due to the relatively low frequency of respiratory events during the night. If a PAP titration is desired, this will require a full follow up night of recording. Recommendation: Auto PAP 4-16 cm H2O Diagnosis: Obstructive Sleep Apnea: G47.33 Accredited Scorer: Afia Lopez I attest that I have reviewed this polysomnogram epoch by epoch, in accordance with AASM standards. Olivia Klein MD Sleep Medicine Clinical Fellow By signing this report, I certify that I have read this polysomnogram, edited the report, and agreewith the description of findings and interpretation contained in this written report. Odette Correa M.D. Back Shoe Cutter of Neurology Diplomate, [place] [employer] and Neurology With added qualifications in Sleep Medicine ING ENFORCEMENT OFFICER documented in this encounter Plan of Treatment Not on file documented as of this encounter Procedures Procedure Name Priority Date/Time Associated Diagnosis Comments PSG (COMPLEX) Routine 07/09/2020 7:30 PM PARKING ENFORCEMENT OFFICER Hypersomnia documented in this encounter Results * PSG (COMPLEX) (07/09/2020 7:30 PM PARKING ENFORCEMENT OFFICER) Narrative Odette Correa MD - 07/09/2020 7:30 PM PARKING ENFORCEMENT OFFICER Odette Correa MD ? 07/11/2020 ??9:54 AM PSG-Sleep Provider Use Only Date/Time: 07/09/2020 10:00 PM Performed by: Odette Correa MD Authorized by: Jamie Kevin NP Afoussatou Boire WELDING MACHINE OPERATOR [facility] ORDERABLES Ingris l Result documented in this encounter Visit Diagnoses Diagnosis Hypersomnia Hypersomnia, unspecified TRACE (obstructive sleep apnea) Obstructive sleep apnea (adult) (pediatric) documented in this encounter Orders Outpatient Referral Count Last Ordered Date Fir st Ordered Date AMB REFERRAL TO NEUROLOGY 1 07/09/2020 documented in this encounter Care Teams Airline Mechanic Relationship Specialty Start Date End Date Baldomero Dominguez MD PCP - General 01/07/17 Jaciel Melo MD Net Developer With [facility] Cardiovascular Disease 04/12/19 2 documented as of this encounter
--- OUTSIDE RECORDS SUMMARY | 2024-07-11 07:33 | XMS_ITS | Encounter Summary ---
Author Organization [facility] Address [address] [place] [address] Phone Care Team Providers Care Supervisor Patching Name Role Phone Baldomero Dominguez MD Primary Care Provider Jaciel Melo MD Unavailable [phone] Lane Gonzalez MD Unavailable Pee Villasenor MD Unavailable [phone] Encounter Details Date Type Department Care Team (Late st Contact Info) Description 2020 Telephone [facility] Neuro Sleep [address] [facility] 6th Floor [address] [place] [address] Sen Ba, RPSGT Social History Tobacco Use Types Packs/Day Years Used Date Smoking Tobacco: Never Comments No Sex and Gender Information Value Date Recorded Sex Assigned at Not on file Legal Sex Female 1:19 PM PATTERNMAKER PRESSURE CAST Gender Identity Not on file Sexual Orientation Not on file documented as of this encounter Plan of Treatment Not on file documented as of this encounter Visit Diagnoses Not on filedocumented in this encounter Additional Health Concerns Infection Onset Date Last Indicated Resolved Time COVID: Suspected 09/28/2020 09/28/2020 09/29/2020 4:28 AM PATTERNMAKER PRESSURE CAST COVID: Suspected 03/28/2021 03/28/2021 04/11/2021 3:05 AM CDT COVID: Suspected 05/13/2021 05/13/2021 05/13/2021 10:05 PM CDT COVID: Suspected 11/25/2021 12/23/2021 11/26/2021 3:05 AM CDT COVID: Suspected 12/23/2021 12/23/2021 12/24/2021 1:10 AM CDT documented as of this encounter Care Teams Supervisor Patching Relationship Specialty Start Date End Date Baldomero Dominguez MD PCP - General 01/07/17 Jaciel Melo MD Spanish Speaking Babysitter Cardiovascular Disease 04/12/[address] Gonzalez MD [address] [place] [id number] Consulting Physician Interventional Cardiology 12/18/21 Pee Villasenor MD [address] [place] [address] [place] [address] Consulting Physician Obstetrics and Gynecology 12/26/21 documented as of this encounter
--- OUTSIDE RECORDS SUMMARY | 2024-07-11 07:34 | XMS_ITS | Encounter Summary ---
Author Organization [facility] Address [address] [place] [address] Phone Care Team Providers Care Lining Feller Blindstitch Name Role Phone Baldomero Dominguez MD Primary Care Provider [phone] Jaciel Melo MD Unavailable [phone] Encounter Details Date Type Department Care Team (Late st Contact Info) Description 07/01/[address] [facility] Neuro Sleep [address] [facility] 6th [address] [place] [address] Yanira Carbajal Social History Tobacco Use Types Packs/Day Years Used Date Smoking Tobacco: Never Comments No Sex and Gender Information Value Date Recorded Sex Assigned at Not on file Legal Sex Female 1:19 PM IRON MELTER Gender Identity Not on file Sexual Orientation Not on file documented as of this encounter Miscellaneous Notes * Telephone Encounter - Yanira Carbajal - 07/01/2020 1:09 PM CST ----- Message from Jamie Kvein NP sent at 07/01/2020 12:10 PM IRON MELTER ----- Say Doyle, As discussed on the phone. She needs an in lab PSG leonard for pending surgery. thanks MELTER documented in this encounter Plan of Treatment Not on file documented as of this encounter Visit Diagnoses Not on filedocumented in this encounter Care Teams Lining Feller Blindstitch Relationship Specialty Start Date End Date Baldomero Dominguez MD PCP - General 01/07/17 Jaciel Melo MD Public Works Manager Cardiovascular Disease 04/12/19 2 documented as of this encounter
--- OUTSIDE RECORDS SUMMARY | 2024-07-11 07:35 | XMS_ITS | Encounter Summary ---
Author Organization [facility] Address [address] [place] [address] Phone Care Team Providers Care Consultants Intern Name Role Phone Baldomero Dominguez MD Primary Care Provider [phone] Jaciel Melo MD Unavailable [phone] Reason for Referral * Sleep Medicine (Routine) - Closed Specialty Diagnoses / Procedures Referred By Vianca montiel Referred To Contact Diagnoses Hypersomnia Procedures PSG-Sleep Provider Use Only Jamie Kevin NP [address] [place] [address] Phone: tel: fax: [facility] (All Locations) Referral ID Status Reason Start Date Expiration Date Visits Re quested Visits Authorized [id number] Closed 2020 08/02/2020 1 1 TROM TUBE TESTER Encounter Details Date Type Department Care Team (Late st Contact Info) Description 07/01/2020 Orders Only [facility] Neuro Sleep [address] [facility] 6th Floor [address] [place] [address] Jamie Kevin NP [address] [place] [address] Hypersomnia (Primary Dx) Social History Tobacco Use Types Packs/Day Years Used Date Smoking Tobacco: Never Comments No Sex and Gender Information Value Date Recorded Sex Assigned at Not on file Legal Sex Female 1:19 PM KLYSTROM TUBE TESTER Gender Identity Not on file Sexual Orientation Not on file documented as of this encounter Plan of Treatment Not on file documented as of this encounter Results * PSG (COMPLEX) (07/09/2020 7:30 PM KLYSTROM TUBE TESTER) Narrative Odette Correa MD - 07/09/2020 7:30 PM KLYSTROM TUBE TESTER Odette Correa MD ? 07/11/2020 ??9:54 AM PSG-Sleep Provider Use Only Date/Time: 07/09/2020 10:00 PM Performed by: Odette Correa MD Authorized by: Jamie Kevin NP Jamie Kevin NP [facility]ENTER ORDERABLES Ingris l Result documented in this encounter Visit Diagnoses Diagnosis Hypersomnia- Primary Hypersomnia, unspecified Hypersomnia Hypersomnia, unspecified TRACE (obstructive sleep apnea) Obstructive sleep apnea (adult) (pediatric) documented in this encounter Care Teams Consultants Intern Relationship Specialty Start Date End Date Baldomero Dominguez MD PCP - General 01/07/17 Jaciel Melo MD Nurse Practical Cardiovascular Disease 04/12/19 2 documented as of this encounter
--- OUTSIDE RECORDS SUMMARY | 2024-07-11 07:36 | XMS_ITS | Encounter Summary ---
Author Organization [facility] Address [address] [place] [address] Phone Care Team Providers Care Bartender Helper Name Role Phone Baldomero Dominguez MD Primary Care Provider [phone] Jaciel Melo MD Unavailable [phone] Encounter Details Date Type Department Care Team (Late st Contact Info) Description 07/01/2020 Telephone [facility] Neema Bonilla Social History Tobacco Use Types Packs/Day Years Used Date Smoking Tobacco: Never Comments No Sex and Gender Information Value Date Recorded Sex Assigned at Not on file Legal Sex Female 1:19 PM BAND BOOKER Gender Identity Not on file Sexual Orientation Not on file documented as of this encounter Miscellaneous Notes * Telephone Encounter - Neema Bonilla - 07/01/2020 9:55 AM CST Say Bethea I approved lap sleeve gastrectomy for Rowena Quesada. Prior approval # [id number] for dates of service 07/02/20-12/30/20. Be safe & stay healthy! Carrie Roa Medical Assistance Electrical Test Technician [facility] Division of Medical Programs [place] [facility] [email or web address] 07.01.2020 Emailed Carrie Roa @[facility], Sleep Study, Hep Lab results and Ab Ultrasound for review to get secondary approval ----- Message from Darleen Foster sent at 06/27/2020 7:56 AM BAND BOOKER ----- There is an abdominal US under imaging. ----- Message ----- From: Neema Bonilla Sent: 06/27/2020 7:04 AM BAND BOOKER To: Díaz Coffman Mis Bariatric Pool Leticia Pedro, That is fine if she is doing the sleep study today but I don't see Abdominal ultrasound that [facility] requested. I do see the lab work for the Hepatitis screen. This is the one that has the [facility] approval but [facility] is requesting additional things. Please advise. Thanks, Neema ----- Message ----- From: Darleen Foster Sent: 06/26/2020 4:04 PM BAND BOOKER To: Díaz Coffman Pre-Determination Pool Leticia, Per Mraika, We can submit this patient without her sleep study. She is getting her sleep study today. Thank you,Mayela ----- Message ----- From: Neema Bonilla Sent: 06/12/2020 ??10:26 AM BAND BOOKER To: Díaz Coffman Mis Bariatric Pool Subject: FW: Please submit to Pre-D ? Leticia Let me know where we are going with this. She has a [employer] approval but per [facility]. She is missing things. 06.05.2020 Note sent to the division. ?? Good afternoon Neema, ?? I've received and reviewed Gregory Quesada #[id number]. The following information is still needed: ?? Hepatitis screening Abdominal ultrasound Sleep study (her Stop-Bang screening was a 3 per Berry Atkins NP report) ?? Thanks, ?? Paulina Guerrero Medical Assistance Electrical Test Technician [facility] Division of Medical Programs [place] [facility] [phone] [email or web address] ?? ----- Message ----- From: Darleen Foster Sent: 06/12/2020 ??10:08 AM BAND BOOKER To: Díaz Coffman Pre-Determination Pool Subject: FW: Please submit to Pre-D ? Requesting Pre-Determination Benefits Ordering Physician: Guanaco Procedure Description: Sleeve CPT Code: 18521 Diagnosis Code: Morbid Obesity--DX E66.01 Place of Service: BW Admit Status: SDSA Tentative Date of Service: 2020 Other: The above location and date could possibly change. Per below message we are submitting with the information that we have. ----- Message ----- From: Velvet Nguyen RN Sent: 06/12/2020 ??10:00 AM BAND BOOKER To: Darleen Foster Subject: RE: Please submit to Pre-D ? Hey. From what her benefits read, it doesn't actually state that she needs a sleep study. It just states that she would need initiation of CPAP/BiPAP if indicated. I actually discussed this with Marika a few weeks back when the patient was first questioning about whether or not a sleep study was required by her insurance. It was a requirement from our office because she scored a 3 on her STOP BAND assessment and her Co2 was above 27. This is a requirement of Dr. Blanc and Anesthesia and not so much of her insurance. Because of this, he thinks that we can go ahead and submit her for Pre-d ThanksVelvet ----- Message ----- From: Darleen Foster Sent: 06/11/2020 ??12:12 PM BAND BOOKER To: Velvet Nguyen RN Subject: RE: Please submit to Pre-D ? Tabitha, Part of the issue is, this patient's insurance requires the sleep study. I can not submit without this. Please advise. Thank you, Mayela ----- Message ----- From: Velvet Nguyen RN Sent: 06/11/2020 ?? 8:59 AM BAND BOOKER To: Darleen Foster Subject: Please submit to Pre-D ? Hi there. Dr. Blanc has agreed to give this patient a tentative surgery date of 07/16. Please go ahead an submit for Pre-D to her IDPA today. In the meantime, she is scheduled for her sleep med consultation later this week and will have a sleep study shortly after that. Thanks, Velvet ?? BOOKER BOOKER BOOKER documented in this encounter Plan of Treatment Not on file documented as of this encounter Visit Diagnoses Not on filedocumented in this encounter Care Teams Bartender Helper Relationship Specialty Start Date End Date Baldomero Dominguez MD PCP - General 01/07/17 Jaciel Melo MD Personal Injury Paralegal Cardiovascular Disease 04/12/19 2 documented as of this encounter
--- OUTSIDE RECORDS SUMMARY | 2024-07-11 07:36 | XMS_ITS | Encounter Summary ---
Author Organization [facility] Address [address] [place] [address] Phone Care Team Providers Care Director Of Mechanical Engineering Name Role Phone Baldomero Dominguez MD Primary Care Provider [phone] Jaciel Melo MD Unavailable [phone] Reason for Visit * Sleep Medicine (Routine) - Closed Specialty Diagnoses / Procedures Referred By Vianca montiel Referred To Contact Diagnoses Restless sleeper Procedures Portable/Home Sleep Study Jamie Kevin NP [address] [place] [address] Phone: tel: fax: [facility] (All Locations) Referral ID Status Reason Start Date Expiration Date Visits Re quested Visits Authorized [id number] Closed 06/24/2020 07/25/2020 1 1 Encounter Details Date Type Department Care Team (Late st Contact Info) Description 06/26/2020 2:00 PM DELIVERY LEAD Procedure visit [facility] Neuro Sleep [address] [facility] 6th [address] [place] [address] Restless sleeper Social History Tobacco Use Types Packs/Day Years Used Date Smoking Tobacco: Never Comments No Sex and Gender Information Value Date Recorded Sex Assigned at Not on file Legal Sex Female 1:19 PM DELIVERY LEAD Gender Identity Not on file Sexual Orientation Not on file documented as of this encounter Progress Notes * Sen Ba RPSGT - 06/26/2020 2:00 PM CST SLEEP MEDICINE CENTER DEVICE LOAN AGREEMENT I, Rowena Quesada am borrowing the following device. [employer] Night One - Serial # . I understand that this is a temporary loaner and the device must be returned by 06/27/20. If an extension is needed or have any questions or concerns, I will contact the Sleep Center at [phone]. If I fail to contact or return the device, I understand I will be charged for the cost in full. By signing this form, I have read and understand the agreement: Patient Signature: Witness Signature: Date: 06/26/20 2:00pm 66 [id number] VERY LEAD * Sen Ba RPSGT - 06/26/2020 2:00 PM CST Patient presents at the sleep center today for set up of an [employer] Night One, a Type III home sleep test device. Patient was identified by full name and . Procedure was verified by order. Patient was instructed on the proper use and setup of this device. Patient will wear this device overnight and will return the device to the sleep lab tomorrow. Patient was provided with the sleep center phonenumber and instructed to call this number if any problem with device or with subsequent return of device. Patient was instructed that the phone line was monitored 24 hours a day, 7 days a week. VERY LEAD * Jaycee Persaud MD PhD - 06/26/2020 2:00 PM CSTAssociated Order(s): Portable/Home Sleep Study Post-Procedure Diagnose(s): Restless sleeper Images from the original note were not included. Portable/Home Sleep Study Date/Time: 06/26/2020 10:00 PM Performed by: Jaycee Persaud MD PhD Authorized by: Jamie Kevin NP HOME SLEEP APNEA TEST (HSAT) REPORT Patient: Rowena Quesada : 1965 Date of Service: 06/26/2020 Home Sleep Apnea Test (Type III) Clinical History: 54 year old woman with Crohn's disease, paroxysmal supraventricular tachycardia, and BMI of 46 who presents with symptoms suggestive of obstructive sleep apnea including daytime sleepiness and poor sleep quality. Height: 66.0 inches; Weight: 287.0 lbs; BMI: 46.3 kg/ Description of Procedures: Unless otherwise noted, respiratory events were scored in accordance with recommended parameters as outlined in the AASM Manual for the Scoring of Sleep and Associated Events, Version 2.5. Hypopneas were scored in accordance with acceptable parameters as outlined in Chapter IX, Part 1: HSAT Utilizing Respiratory Flow and/or Effort Parameters, Category H., Section 1B. Additionally, hypopnea count and SONG/AHI utilizing recommended scoring parameters as outlined in Category H., Section 1A, will be reported separately in this report. This study was performed using a [employer] Night One portable monitoring unit, serial number [id number], a type 3 portable monitoring device. Variables monitored included nasal/oral pressure transduced airflow (PTAF), single respiratory effort (thoracic belt), snoring (derived from PTAF sensor), body position, and pulse oximetry. Lights Out occurred at 10:45:38 PM and Lights On occurred at 8:12:20 AM. Total recording time was 566.7 minutes. Monitoring time is 491.2 minutes. Summary: SONG/AHI (4%) 2.4 CARIDAD 0.0 VELASQUEZ (4%) SpO2 Cristi 80% Respiratory Event Summary Heart Rate Summary Oximetry Summary Event Type Index (#/hour) Total # of Events Mean HR: 75.0 (BPM) Duration (minutes) % Monitoring Time Obstructive Apnea 0.9 7 Highest HR: 98 (BPM) 90%- 100% 481.50 98.03 Central Apnea 0.0 0 Lowest HR: 59 (BPM) 80%- 89% 7.80 1.59 Mixed Apnea 0.0 0 Positional Summary 70% - 79% 0.00 0.00 Hypopnea (4%) 1.6 13 Supine Non-Supine 60% - 69% 0.00 0.00 Total (4%) 2.4 20 % of MT 55.11 44.87 50% - 59% 0.00 0.00 Percentage of snoring 38.8 % SONG (3%) 6.2 3.27 <89% 4.20 0.86 Additional Reporting Data: SONG/AHI (3%) 4.9 Hypopnea Index (3%) 4.0 Total # of Hypopneas (3%) 33 VELASQUEZ (3%) 6.7 Respiratory event index (SONG) is equivalent to apnea/hypopnea index (AHI) for the purposes of HSAT.Monitoring Time is calculated as TRT minus any artifact or wake time. For the purposes of this study, wake time was reported by the patient through use of sleep diary. Oxygen Desaturation Index (VELASQUEZ)is the index of oxygen desaturations occurring during monitoring time. VELASQUEZ (3%) indicates 3% or greater oxygen desaturation. VELASQUEZ (4%) indicates 4% or greater oxygen desaturation. Limitations of the study: 1. A sleep EEG was not recorded; therefore, the actual amount of time spent in sleep, stages of sleep and respiratory events associated with arousals cannot be determined by this study. 2. All indexes are computed against monitoring time, not total sleep time. For this reason, the degree of severity may be underestimated. Interpretation: This ambulatory study using the [employer] Night One portable monitoring unit did not confirm clinically significant sleep apnea. An unattended sleep apnea test such as this may not shredder picker subtle breathing changes that can fragment sleep without causing significant oxygen desaturations or can significantly underestimate events if the patient is awake for significant portions of the study. An attended polysomnogram would be useful if these more subtle events are suspected or ifit is felt that the patient had poor sleep efficiency. Clinical correlation is advised. Diagnosis: G47.9 (sleep disturbance, unspecified) By signing this report, I certify that I have read this home sleep test, edited the report, and agree with the description of findings and interpretation contained in this written report. Jaycee Persaud M.D., Ph.D. Banking Management Consulting Manager of Neurology Diplomate, [place] [employer] of Psychiat[employer] and Neurology with added Qualifications in Sleep Medicine VERY LEAD documented in this encounter Plan of Treatment Not on file documented as of this encounter Procedures Procedure Name Priority Date/Time Associated Diagnosis Comments PORTABLE/HOME SLEEP STUDY Routine 06/26/2020 2:00 PM DELIVERY LEAD Restless sleeper documented in this encounter Results * PORTABLE/HOME SLEEP STUDY (06/26/2020 2:00 PM DELIVERY LEAD) Narrative Jaycee Persaud MD PhD - 06/26/2020 2:00 PM DELIVERY LEAD Jaycee Persaud MD PhD ? 06/28/2020 ??7:39 AM Portable/Home Sleep Study Date/Time: 06/26/2020 10:00 PM Performed by: Jaycee Persaud MD PhD Authorized by: Jamie Kevin NP Jamie Kevin NP SLEEP CENTER ORDERABLES Ingris l Result documented in this encounter Visit Diagnoses Diagnosis Restless sleeper documented in this encounter Care Teams Director Of Mechanical Engineering Relationship Specialty Start Date End Date Baldomero Dominguez MD PCP - General 01/07/17 Jaciel Melo MD Newspaper Stuffer Cardiovascular Disease 04/12/19 2 documented as of this encounter
--- OUTSIDE RECORDS SUMMARY | 2024-07-11 07:37 | XMS_ITS | Encounter Summary ---
Author Organization [facility] Address [address] [place] [address] Phone Care Team Providers Care Motorized Squad Sergeant Name Role Phone Baldomero Dominguez MD Primary Care Provider [phone] Jaciel Melo MD Unavailable [phone] Encounter Details Date Type Department Care Team (Late st Contact Info) Description 06/25/2020 Telephone [facility] Neuro Sleep [address] [facility] 6th [address] [place] [address] Eduardo Dawson, SHAYLA Social History Tobacco Use Types Packs/Day Years Used Date Smoking Tobacco: Never Comments No Sex and Gender Information Value Date Recorded Sex Assigned at Not on file Legal Sex Female 1:19 PM STRAIGHTENING ROLL OPERATOR Gender Identity Not on file Sexual Orientation Not on file documented as of this encounter Miscellaneous Notes * Telephone Encounter - Eduardo Dawson RPSGT - 06/25/2020 5:55 PM STRAIGHTENING ROLL OPERATOR Pt LVM on machine asking for a cb. I called but got vm-lvm for cb if still needed. IGHTENING ROLL OPERATOR documented in this encounter Plan of Treatment Not on file documented as of this encounter Visit Diagnoses Not on filedocumented in this encounter Care Teams Motorized Squad Sergeant Relationship Specialty Start Date End Date Baldomero Dominguez MD PCP - General 01/07/17 Jaciel Melo MD Director Family Cardiovascular Disease 04/12/19 2 documented as of this encounter
--- OUTSIDE RECORDS SUMMARY | 2024-07-11 07:37 | XMS_ITS | Encounter Summary ---
Author Organization [facility] Address [address] [place] [address] Phone Care Team Providers Care Dialysis Patient Care Technician Name Role Phone Baldomero Dominguez MD Primary Care Provider Jaciel Melo MD Unavailable [phone] Encounter Details Date Type Department Care Team (Late st Contact Info) Description 06/26/2020 Telephone [facility] Neuro Sleep [address] [facility] 6th [address] [place] [address] Sen Ba RPSGT Social History Tobacco Use Types Packs/Day Years Used Date Smoking Tobacco: Never Comments No Sex and Gender Information Value Date Recorded Sex Assigned at Not on file Legal Sex Female 1:19 PM RESEARCH CONTRACTS SUPERVISOR Gender Identity Not on file Sexual Orientation Not on file documented as of this encounter Miscellaneous Notes * Telephone Encounter - Sen Ba RPSGT - 06/26/2020 9:42 AM RESEARCH CONTRACTS SUPERVISOR Attempted to reach patient to reschedule HSAT for this week. Insurance is approved. LVM. ARCH CONTRACTS SUPERVISOR documented in this encounter Plan of Treatment Not on file documented as of this encounter Visit Diagnoses Not on filedocumented in this encounter Care Teams Dialysis Patient Care Technician Relationship Specialty Start Date End Date Baldomero Dominguez MD PCP - General 01/07/17 Jaciel Melo MD Fresh Foods Cake Decorator Cardiovascular Disease 04/12/19 2 documented as of this encounter
--- OUTSIDE RECORDS SUMMARY | 2024-07-11 07:37 | XMS_ITS | Encounter Summary ---
Author Organization [facility] Address [address] [place] [address] Phone Care Team Providers Care Paper Mill Manager Name Role Phone Baldomero Dominguez MD Primary Care Provider [phone] Jaciel Melo MD Unavailable [phone] Encounter Details Date Type Department Care Team (Late st Contact Info) Description 06/24/2020 Telephone [facility] Neuro Sleep [address] [facility] 6th [address] [place] [address] Sen Ba RPSGT Social History Tobacco Use Types Packs/Day Years Used Date Smoking Tobacco: Never Comments No Sex and Gender Information Value Date Recorded Sex Assigned at Not on file Legal Sex Female 1:19 PM INFECTION CONTROL MANAGER Gender Identity Not on file Sexual Orientation Not on file documented as of this encounter Miscellaneous Notes * Telephone Encounter - Sen Ba RPSGT - 06/24/2020 9:39 AM INFECTION CONTROL MANAGER Patient called stating that she needs to have her HST setup done prior to her surgery dated 07/16/20. It looks like after attempting to reach pt, she is scheduled for 07/15 via my chart. Informed patient that we will give her a call back today to arrange a setup this week after checking with her insurance. Patient voiced understanding. CTION CONTROL MANAGER documented in this encounter Plan of Treatment Not on file documented as of this encounter Visit Diagnoses Not on filedocumented in this encounter Care Teams Paper Mill Manager Relationship Specialty Start Date End Date Baldomero Dominguez MD PCP - General 01/07/17 Jaciel Melo MD Paperboard Box Maker Cardiovascular Disease 04/12/19 2 documented as of this encounter
--- OUTSIDE RECORDS SUMMARY | 2024-07-11 07:38 | XMS_ITS | Encounter Summary ---
Author Organization [facility] Address [address] [place] [address] Phone Care Team Providers Care Cow Rider Name Role Phone Baldomero Dominguez MD Primary Care Provider [phone] Jaciel Melo MD Unavailable [phone] Reason for Referral * Sleep Medicine (Routine) - Closed Specialty Diagnoses / Procedures Referred By Vianca montiel Referred To Contact Diagnoses Restless sleeper Procedures Portable/Home Sleep Study Jamie Kevin NP [address] [place] [address] Phone: tel: fax: [facility] (All Locations) Referral ID Status Reason Start Date Expiration Date Visits Re quested Visits Authorized [id number] Closed 06/24/2020 07/25/2020 1 1 OPEDIC MECHANIC Reason for Visit * Consultation (Routine) - Closed Specialty Diagnoses / Procedures Referred By Contvaishnavi montiel Referred To Contact Sleep Medicine Diagnoses Morbid obesity (HCC) Thierno Blanc MD Phone: tel: fax: External Order Referral ID Status Reason Start Date Expiration Date V isits Requested Visits Authorized [id number] Closed Specialty Services Required 04/23/2020 05/23/2021 1 1 Encounter Details Date Type Department Care Team (Late st Contact Info) Description 06/14/2020 11:00 AM ORTHOPEDIC MECHANIC Telemedicine [facility] Neuro Sleep [address] [facility] [place] 6th [address] [place] [address] Jamie Kevin NP [address] [place] [address] Restless sleeper (Primary Dx); Morbid obesity (CMS/HCC) Social History Tobacco Use Types Packs/Day Years Used Date Smoking Tobacco: Never Comments No Sex and Gender Information Value Date Recorded Sex Assigned at Not on file Legal Sex Female 1:19 PM ORTHOPEDIC MECHANIC Gender Identity Not on file Sexual Orientation Not on file documented as of this encounter Progress Notes * Jamie Kevin NP - 06/14/2020 11:00 AM CST This was a telemedicine visit with Derrick Martinez [place] jai which took place via Real-time video connection ([employer], Zoom or similar). During the visit, I was located at home office in the [facility] and the patient was located home in [place]. The session started at 11:00 am and ended at 11:30 am. In addition to the time spent during the session with the patient, I spent 5 minutes preparing to see the patient, 5 minutes counseling and educating the patient/family/caregiver, 5 minutes ordering medications, tests, or procedures, 0 minutes referring and communicating with other healthcare professional, 15 minutes documenting clinical information in the electronic or other health record, 0 minutes independently interpreting results and communicating the results to the patient/family/caregiver and 0 minutes on care coordination on the day of the visit. Total time spend on encounter on the day of the visit: 60 minutes. The patient has been informed that the visit may not be secure and acknowledged the information. It was explained to the patient they have the option of participating in a telephone or video visitduring the COVID-19 public health emergency. After being given an opportunity to ask questions about and discuss this type of visit, the patient verbally consented to proceeding with the telephone / video visit. The patient understands that this service replaces an office visit and they may be billed and/or responsible for any applicable copayments. Greater than 50% of any time I spent on the call/video was spent in counseling and/or coordination of care as documented in the note. Patient Name: DERRICK QUESADA Medical Record Number (MRN): [id number] Date of (): 1965 Encounter Date: 06/14/2020 Chief Complaint Derrick Quesada is a 54 y.o. female seen today for sleep apnea evaluation. HPI 54 y.o. patient with crohn's disease, paroxysmal supraventricular tachycardia who presents for TRACE re-evaluation. Reportedly had a sleep study 10 yrs ago that was unremarkable for sleep apnea. Now insurance is requiring a repeat sleep study prior to a planned sleeve weight loss surgery. She does not snore. She has not been witnessed to stop breathing. She does not wake up gasping for air. She does not have morning headaches. Sleep is restless from knee and back pain. He does not have vivid dreams. She denies somniloquy and somnambulism. She does not act out dreams. She has not had symptoms of cataplexy, sleep-related hallucinations, or sleep paralysis. She does not have an uncomfortable sensation in the legs which is relieved by movement/stretching. She is not aware of leg jerks during sleep. On all nights, bedtime is 6:30 pm, rise time is 2:30 am ( for work), and she takes 5 minutes to fall asleep. She wakes up 2 times during the night to use the restroom or from knee pain. It takes 5 minutes for him to fall back asleep. When she can't fall asleep, she will watch Tv or use the phone- but this is very rare. she does take naps 2-3 days per week. Naps are 60 minutes in length and are intentional. She feels refreshed when she wakes in the morning, if doesn't sleep by 6:30 pm, feels tired in the morning. She is liable to doze unintentionally while in sedentary situations very rare. Sleepiness has not affected work. She has not dozed off while driving. [place] sleepiness scale today was not filled out. No Known Allergies Current Outpatient Medications Medication Sig Dispense Refill ??? albuterol HFA (ProAir HFA) 90 mcg/actuation inhaler ProAir HFA 90 mcg/actuation aerosol inhaler ??? diltiaZEM (CARDIZEM) 120 mg tablet Take 120 mg by mouth 2 (two) times a day ??? ergocalciferol (VITAMIN D) 50,000 unit capsule Take 50,000 Units by mouth once a week ??? iron 18 mg tablet Take by mouth daily ??? meloxicam (MOBIC) 7.5 mg tablet ??? traMADoL (ULTRAM) 50 mg tablet TK 1 T PO Q 8 H PRF PAIN No current facility-administered medications for this visit. Patient Active Problem List Diagnosis ??? Arthralgia [...] ??? SECTION ??? CHOLECYSTECTOMY ??? NOSE SURGERY Family History Problem Relation Age of Onset ??? Diabetes Mother Family history of diabetes mellitus - (Added by TW Conv) ??? Hypertension Mother Family history of hypertension - (Added by TW Conv) ??? Obesity Mother Overweight - (Added by TW Conv) ??? 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 Review of Systems All other systems are negative except as per the HPI. Vital Signs Reported Weight: 284 lbs Height 5'6 Physical Exam: limited by telehealth. GENERAL EXAM General: Well developed, well nourished, in no acute distress. HEENT: Lungs: Cardiovascular: Abdomen: Extremities: Integumentary: Lymph nodes: NEUROLOGIC EXAM: Mental Status Alert, oriented, normal spontaneous fluent speech with full comprehension. Cranial nerves Extraocular movements full and conjugate, face strong and symmetric, palate rise andtongue protrusion symmetric. Motor Normal fine finger movements. No tremor. Sensory Intact to light touch in all extremities symmetrically. Coordination and gait Normal stance and gait. Assessment Diagnosis Plan 1. Morbid obesity (CMS/HCC) Ambulatory referral to Sleep Medicine 54 y.o. female with crohn's disease, paroxysmal supraventricular tachycardia who reportedly had a sleep study 10 yrs that did not show TRACE. Now wanting to have a sleeve weight but required to have sleep study as part of pre-weight loss surgery work up. Pt has symptoms suggestive of obstructive sleep apnea includingdaytime sleepiness and poor sleep quality. Exam is notable for obesity with BMI>30 and a wide neck which place her at higher risk forOSA. We discussed TRACE and its treatments including positive airway pressure, oral prosthesis, surgery, weight loss and inspire. We discussed how untreated TRACE can cause unrefreshing sleep and excessive daytime sleepiness, as well as how it contributes over the termite control technician to cardiovascular risk, recalcitrant hypertension and difficulty with weight loss . She is amenable to evaluation and treatment for TRACE. Plan 1-Possible sleep apnea -HST, if unremarkable pt agrees to in lab SPLIT PSG -Pt is planning to have sleeve weight loss surgery. -F/u will depend on sleep study result. Obesity- ?? Weight loss through diet and exercise Advised patient to never drive while drowsy. She verbalizes understanding. No follow-ups on file. No future appointments. Thank you for allowing me to participate in the care of your patient. If you have any questions, feel free to contact me. Jamie Kevin NP 06/14/2020 11:03 AM OPEDIC MECHANIC documented in this encounter Plan of Treatment Not on file documented as of this encounter Results * PORTABLE/HOME SLEEP STUDY (06/26/2020 2:00 PM ORTHOPEDIC MECHANIC) Narrative Jaycee Persaud MD PhD - 06/26/2020 2:00 PM ORTHOPEDIC MECHANIC Jaycee Persaud MD PhD ? 06/28/2020 ??7:39 AM Portable/Home Sleep Study Date/Time: 06/26/2020 10:00 PM Performed by: Jaycee Persaud MD PhD Authorized by: Jamie Kevin NP Jamie Kevin PRINTER SLOTTER HELPER SLEEP CENTER ORDERABLES Ingris l Result documented in this encounter Visit Diagnoses Diagnosis Restless sleeper- Primary Morbid obesity (HCC) Morbid obesity Restless sleeper documented in this encounter Orders Outpatient Referral Count Last Ordered Date Fir st Ordered Date AMB REFERRAL TO SLEEP MEDICINE 1 06/14/2020 documented in this encounter Care Teams Cow Rider Relationship Specialty Start Date End Date Baldomero Dominguez MD PCP - General 01/07/17 Jaciel Melo MD Rig Operator Cardiovascular Disease 04/12/19 2 documented as of this encounter
--- OUTSIDE RECORDS SUMMARY | 2024-07-11 07:38 | XMS_ITS | Encounter Summary ---
Author Organization [facility] Address [address] [place] [address] Phone Care Team Providers Care Imaging Assistant Name Role Phone Baldomero Dominguez MD Primary Care Provider [phone] Jaciel Melo MD Unavailable [phone] Encounter Details Date Type Department Care Team (Late st Contact Info) Description 06/10/2020 Telephone [facility] Surgery [address] [place] [address] Medical Office Building [address] [place] [address] Velvet Nguyen RN Social History Tobacco Use Types Packs/Day Years Used Date Smoking Tobacco: Never Comments No Sex and Gender Information Value Date Recorded Sex Assigned at Not on file Legal Sex Female 1:19 PM LAMBSKIN TRIMMER Gender Identity Not on file Sexual Orientation Not on file documented as of this encounter Miscellaneous Notes * Telephone Encounter - Velvet Nguyen RN - 06/10/2020 3:32 PM LAMBSKIN TRIMMER Attempted to call patient ([phone]) three times today. I was unsuccessful in reaching her eachtime. Voice message left each time. Velvet Nguyen RN SKIN TRIMMER documented in this encounter Plan of Treatment Not on file documented as of this encounter Visit Diagnoses Not on filedocumented in this encounter Care Teams Imaging Assistant Relationship Specialty Start Date End Date Baldomero Dominguez MD PCP - General 01/07/17 Jaciel Melo MD Wafer Substrate Tester Cardiovascular Disease 04/12/19 2 documented as of this encounter
--- OUTSIDE RECORDS SUMMARY | 2024-07-11 07:39 | XMS_ITS | Encounter Summary ---
Author Organization [facility] Address [address] [place] [address] Phone Care Team Providers Care Char Filter Operator Name Role Phone Baldomero Dominguez MD Primary Care Provider [phone] Jaciel Melo MD Unavailable [phone] Encounter Details Date Type Department Care Team (Late st Contact Info) Description 05/31/2020 Telephone [facility] Neema Bonilla Social History Tobacco Use Types Packs/Day Years Used Date Smoking Tobacco: Never Comments No Sex and Gender Information Value Date Recorded Sex Assigned at Not on file Legal Sex Female 1:19 PM PRODUCTION TRUCK DRIVER Gender Identity Not on file Sexual Orientation Not on file documented as of this encounter Miscellaneous Notes * Telephone Encounter - Neema Bonilla - 05/31/2020 10:21 AM CST Primary Insurance Insurance Notch Grinder & Phone: Jd seay/[facility] Zenia @ [phone] case #[id number] is pending medical review Predetermination Date Sent: 05.31.2020 Comments: Faxed clinicals for CPT 98022 BW DOS 2020 to [phone] Predetermination Date Approved: 06.06.2020 Received faxed approval from [facility] Zenia for CPT 92180 BW DOS 2020 to 09.03.2019 Approval/Authorization #: [id number] Comments: Pre Cert to call and amend DOS and Facility changes Approval scanned in Secondary Insurance Insurance Notch Grinder & Phone: EARLENE @ [phone] Predetermination Date Sent: 05.31.2020 Comments: Faxed clinicals for CPT 98637 BW DOS 2020 to [phone] Predetermination Date Approved: 07.03.2020 Per Carrie seay/EARLENE CPT 02530 BW is approved (date span 2020 to 12.30.2020) Approval/Authorization #: [id number] Comments: Pre Cert to call and amend DOS and Facility changes 07.03.2020 Say Bethea I approved lap sleeve gastrectomy for Rowena Quesada. Prior approval # [id number] for dates of service 07/02/20-12/30/20. Be safe & stay healthy! Carrie Roa Medical Assistance Bed And Breakfast Operator III [facility] Division of Medical Programs [place] of Professional & Ancillary Services [email or web address] 06.05.2020 Epic Note sent to the division: 06.05.2020 Note sent to the division. Good afternoon Neftali Bethea???ve received and reviewed Gregory Quesada #[id number]. The following information is still needed: Hepatitis screening Abdominal ultrasound Sleep study (her Stop-Bang screening was a 3 per Berry Atkins NP report) Thanks, Paulina Guerrero Medical Assistance Bed And Breakfast Operator III [facility] Division of Medical Programs [place] of Professional & Ancillary Services [phone] [email or web address] ----- Message from Darleen Foster sent at 05/30/2020 11:29 AM PRODUCTION TRUCK DRIVER ----- Regarding: Pre- D Benefits need verified Bariatric Requesting Pre-Determination Benefits Ordering Physician: Guanaco Procedure Description: Sleeve CPT Code: 18272 Diagnosis Code: Morbid Obesity--DX E66.01 Place of Service: BW Admit Status: SDSA Tentative Date of Service: 2020 Other: The above location and date could possibly change. UCTION TRUCK DRIVER UCTION TRUCK DRIVER UCTION TRUCK DRIVER UCTION TRUCK DRIVER UCTION TRUCK DRIVER UCTION TRUCK DRIVER UCTION TRUCK DRIVER documented in this encounter Plan of Treatment Not on file documented as of this encounter Visit Diagnoses Not on filedocumented in this encounter Care Teams Char Filter Operator Relationship Specialty Start Date End Date Baldomero Dominguez MD PCP - General 01/07/17 Jaciel Melo MD Hoof And Shoe Inspector Cardiovascular Disease 04/12/19 2 documented as of this encounter
--- OUTSIDE RECORDS SUMMARY | 2024-07-11 07:39 | XMS_ITS | Encounter Summary ---
Author Organization [facility] Healthcare Address [address] [place] [address] Care Team Providers Care Design Leader Name Role Phone Baldomero Dominguez MD Primary Care Provider [phone] Jaciel Melo MD Unavailable [phone] Reason for Referral * Diagnostic Imaging (Routine) - Closed Specialty Diagnoses / Procedures Referred By Vianca monteil Referred To Contact Diagnoses Morbid obesity (HCC) Procedures US Abdomen Limited Thierno Blanc MD Phone: tel: fax: External Order Referral ID Status Reason Start Date Expiration Date Visits Re quested Visits Authorized [id number] Closed 04/23/2020 05/23/2021 1 1 Encounter Details Date Type Department Care Team (Latest Contact Info) Description 05/13/2020 1:08 PM CDT Hospital Encounter [facility] INTERIM Thierno Blanc MD [address] [facility] [phone] [place] [address] Morbid obesity (CMS/HCC) Social History Tobacco Use Types Packs/Day Years Used Date Smoking Tobacco: Never Comments No Sex and Gender Information Value Date Recorded Sex Assigned at Not on file Legal Sex Female 1:19 PM MACHINE APPLICATOR 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 Gender Identity Not on file Sexual Orientation Not on file documented as of this encounter Medications at Time of Discharge albuterol HFA (PROVENTIL HFA,VENTOLIN HFA,PROAIR HFA) 90 mcg/actuation inhaler Inhale 1 puff every 6 (six) hours as needed for wheezing 4 diltiaZEM (CARDIZEM) 120 mg tabletIndications :Supraventricular Arrhythmias Take 120 mg by mouth nightly Can take up to two times per day 0 dilTIAZem CD 120 mg 24 hr capsuleIndication s:hypertension,ca n take up to two times per day, SVT Take 1 capsule (120 mg total) by mouth 2 (two) times a day Patient will start dose 5/4 05/02/2020 3 ergocalciferol (VITAMIN D) 50,000 unit capsule Take 50,000 Units by mouth once a week 0 furosemide (LASIX) 20 mg tablet Take 20 mg by mouth as needed Leg swelling 05/07/2020 1 iron 18 mg tabletIndications :anemia Take 18 mg by mouth nightly 0 meloxicam (MOBIC) 7.5 mg tablet 02/25/2020 0 traMADoL (ULTRAM) 50 mg tablet Take 1 tablet (50 mg total) by mouth 2 (two) times a day as needed for pain 02/13/2020 3 documented as of this encounter Plan of Treatment Not on file documented as of this encounter Procedures Procedure Name Priority Date/Time Associated Diagnosis Comments OXYGEN SATURATION, ARTERIAL Routine 05/13/2020 3:00 PM CDT US RUQ Schedule Routine, Read Routine (OP Routine) 05/13/2020 1:11 PM CDT CARDIOPULMONARY DIAGNOSTICS REPORT 05/13/2020 12:00 AM CDT documented in this encounter Results * (ABNORMAL) Oxygen saturation, arterial (05/13/2020 3:00 PM CDT) Specimen Type Oximeter [facility] Puncture Site FINGER [facility] O2 Sat Pulse Oximetry 99.0(H) 90.0 - 95 % [facility] FiO2 21.0 % [facility] Director Of Human Resources ID [id number] [facility] BLOOD GAS COMMENTS RA O2 SAT WITH PFT [facility] 05/13/2020 3:00 PM CDT 05/13/2020 4:32 PM CDT Narrative Resulting Agency Comment CLI us Thierno Blanc MD LAB BLOOD ORDERABLES Final Resu lt [facility] [address] [place] [address], [facility] [phone] * US RUQ (05/13/2020 1:11 PM CDT) Anatomical Region Laterality Modality Abdomen N/A Ultrasound 05/13/2020 2:55 PM CDT Narrative 05/13/2020 3:05 PM CDT Patient Name: DERRICK QUESADA ?Ordering Dr: Thierno Blanc MD ?? D.O.B: 1965 ? Exam Date: 05/13/20 ?? 1311 ?? Age: 54 ?Sex: Female ? MR#: [id number] ?? Loc: ? RADIOLOGY REPORT ?? Order #[id number] ?? Ultrasound ? US Abd/Right Upper Quadrant ? Signed ?? EXAM DESCRIPTION: ?? US Abd/Right Upper Quadrant ? REASON FOR STUDY: ?? EVALUATE LIVER PRE OP EXAM PRIOR TO BARIATRIC SURGERY ? TECHNIQUE: ??Ultrasound of the right upper quadrant of the abdomen was ?? performed with grayscale and color doppler. ? COMPARISON: ?? CT examination 10/22/2014 and ultrasound examination 03/25/2011. ? FINDINGS: ? PANCREAS: ??Visualized portions of the pancreas are within normal limits. ?? Portions of the pancreatic body and tail are obscured due to bowel gas. ? LIVER: ??The liver is approximately 18 cm in maximum longitudinal dimension, ?? borderline enlarged and similar in size compared to the prior examination. ? There is diminished sound penetration of the liver. ??No appreciable mass. ? GALLBLADDER: ??Surgically absent. ? BILIARY: ??Very limited visualization of the intrahepatic biliary radicles. ? Common bile duct is not visualized. ? RIGHT KIDNEY: ??Normal size. Normal echogenicity. No solid mass or cyst. ??No ?? hydronephrosis. Measures ??11.9 cm in length. ? OTHER: ??No other significant findings. ? IMPRESSION: ?? The liver is borderline enlarged. ??Evaluation of the parenchyma ?? somewhat limited due to diminished sound penetration. ??No appreciable mass. ? Cholecystectomy changes. ??Biliary tree not well evaluated ? THIS IS AN ELECTRONICALLY VERIFIED FINAL REPORT ?? 05/13/2020 3:05 PM - Electronically signed by Anusha Neil M.D. ?? Anusha Neil M.D. ? TB ?? D: ??05/13/2020 3:05 PM ?? T: ? Report ID: [id number] ?? Reading Location: ??[id number] ? REPORT ELECTRONICALLY SIGNED IN OTHER VENDOR SYSTEM ?? Resulting Agency Comment O Procedure Note Anusha Neil MD - 05/13/2020 Patient Name: DERRICK QUESADA Dr: Thierno Blanc MD D.O.B: 1965 Exam Date: 05/13/20 1311 Age: 54 Sex: Female MR#: [id number] Loc: RADIOLOGY REPORT Order #[id number] Ultrasound US Abd/Right Upper Quadrant Signed EXAM DESCRIPTION: US Abd/Right Upper Quadrant REASON FOR STUDY: EVALUATE LIVER PRE OP EXAM PRIOR TO BARIATRICSURGERY TECHNIQUE: Ultrasound of the right upper quadrant of the abdomen was performed with grayscale and color doppler. COMPARISON: CT examination 10/22/2014 and ultrasound pndhafekhoy64/31/2011. FINDINGS: PANCREAS: Visualized portions of the pancreas are within normal limits. Portions of the pancreatic body and tail are obscured due to bowel gas. LIVER: The liver is approximately 18 cm in maximum longitudinaldimension, borderline enlarged and similar in size compared to the priorexamination. There is diminished sound penetration of the liver. No appreciable mass. GALLBLADDER: Surgically absent. BILIARY: Very limited visualization of the intrahepatic biliaryradicles. Common bile duct is not visualized. RIGHT KIDNEY: Normal size. Normal echogenicity. No solid mass or cyst.No hydronephrosis. Measures 11.9 cm in length. OTHER: No other significant findings. IMPRESSION: The liver is borderline enlarged. Evaluation of theparenchyma somewhat limited due to diminished sound penetration. No appreciablemass. Cholecystectomy changes. Biliary tree not well evaluated THIS IS AN ELECTRONICALLY VERIFIED FINAL REPORT 05/13/2020 3:05 PM - Electronically signed by Anusha Neil M.D. TB T: Report ID: [id number] Reading Location: [facility] REPORT ELECTRONICALLY SIGNED IN OTHER VENDOR SYSTEM us Thierno Blanc MD IMG US PROCEDURES Final Result * CARDIOPULMONARY DIAGNOSTICS REPORT (05/13/2020 12:00 AM CDT) Narrative 05/13/2020 12:00 AM CDT Ordered by an unspecified provider. us Historical Provider NURSING COMMUNICATION Fin al Result documented in this encounter Visit Diagnoses Diagnosis Morbid obesity (HCC) Morbid obesity documented in this encounter Orders Imaging Orders Without Results Count Last Order ed Date First Ordered Date US ABDOMEN LIMITED 1 05/13/2020 documented in this encounter Care Teams Design Leader Relationship Specialty Start Date End Date Baldomero Dominguez MD PCP - General 01/07/17 Jaciel Melo MD Monomer Recovery Operator Cardiovascular Disease 04/12/19 2 documented as of this encounter
--- OUTSIDE RECORDS SUMMARY | 2024-07-11 07:39 | XMS_ITS | Encounter Summary ---
Author Organization [facility] Healthcare Address [address] [place] [address] Care Team Providers Care Audio/Video Technician Name Role Phone Baldomero Dominguez MD Primary Care Provider [phone] Jaciel Melo MD Unavailable [phone] Encounter Details Date Type Department Care Team (Late st Contact Info) Description 05/11/2020 12:40 AM CDT Lab [address] [address] Preop testing Social History Tobacco Use Types Packs/Day Years Used Date Smoking Tobacco: Never Comments No Sex and Gender Information Value Date Recorded Sex Assigned at Not on file Legal Sex Female 1:19 PM 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 [...] revised on 2019. First COVID-19 test? Unknown [facility] Employeed in healthcare? Unknown [facility] status? No [facility] Group care resident? Unknown [facility] Hospitalized? No [facility] Is patient in ICU? No [facility] Symptomatic as defined by CDC? No [facility] Nasopharyngeal 05/10/2020 4: 10 PM CDT 05/11/2020 5:55 AM CDT Narrative [facility] - 05/11/2020 9:38 PM CDT What is the reason for testing?->Screening prior to scheduled (>12 hr) surgery or procedure us Laith Smart MD LAB MICROBIOLOGY - GENERA L ORDERABLES Final Result [facility] [place] [address] documented in this encounter Visit Diagnoses Diagnosis Preop testing Unspecified pre-operative examination documented in this encounter Care Teams Audio/Video Technician Relationship Specialty Start Date End Date Baldomero Dominguez MD PCP - General 01/07/17 Jaciel Melo MD Cellular Phone Repairer Cardiovascular Disease 04/12/19 2 documented as of this encounter
--- OUTSIDE RECORDS SUMMARY | 2024-07-11 07:39 | XMS_ITS | Encounter Summary ---
Author Organization [facility] Healthcare Address [address] [place] [address] Care Team Providers Care Livestock Broker Name Role Phone Baldomero Dominguez MD Primary Care Provider Jaciel Melo MD Unavailable [phone] Encounter Details Date Type Department Care Team (Late st Contact Info) Description 06/07/2020 7:16 AM RESTAURANT COOK Hospital Encounter [facility] OP INTERIM Francesco Cruz MD [address] [place] [address] Social History Tobacco Use Types Packs/Day Years Used Date Smoking Tobacco: Never Comments No Sex and Gender Information Value Date Recorded Sex Assigned at Not on file Legal Sex Female 1:19 PM RESTAURANT COOK Gender Identity Not on file Sexual Orientation [...] Procedure Name Priority Date/Time Associated Diagnosis Comments NM GASTRIC EMPTYING STUDY 06/07/2020 12:00 AM RESTAURANT COOK documented in this encounter Results * NM Gastric Emptying Study (06/07/2020 12:00 AM RESTAURANT COOK) Anatomical Region Laterality Modality Body N/A Nuclear Medicine 06/07/2020 12:0 3 PM RESTAURANT COOK Narrative 06/07/2020 12:35 PM RESTAURANT COOK Patient Name: DERRICK QUESADA ?Ordering Dr: Francesco Cruz MD ?? D.O.B: 1965 ? Exam Date: 11/13/20 ?? 0000 ?? Age: 54 ?Sex: Female ? MR#: [id number] ?? Loc: ? RADIOLOGY REPORT ?? Order #[id number] ?? Nuclear Medicine ? Gastric Emptying Study ? Signed ?? EXAM DESCRIPTION: ?? Gastric emptying scintigraphy ? RADIOPHARMACEUTICAL: ?? 1 mCi Tc-99m sulfur colloid incorporated into ??eggs p.o. ? REASON FOR STUDY: ?? Early satiety. ? TECHNIQUE: ??After oral ingestion of the radiolabeled meal, sequential anterior ?? and posterior abdominal images were obtained. ? COMPARISON: ?? None available. ? FINDINGS: ? At 60 minutes, the residual activity is ??64.14% (normal: 30-90%). ? At 120 minutes, the residual activity is ??30.74% (normal: less than 60%). ? At 180 minutes, the residual activity is ??26.78% (normal: less than 30%). ? At 240 minutes, the residual activity is ??1.57% (normal: less than 10%). ? IMPRESSION: ?? Normal gastric emptying. ? THIS IS AN ELECTRONICALLY VERIFIED FINAL REPORT ?? 06/07/2020 12:35 PM - Electronically signed by Bakari Sidhu M.D. ?? Bakari Sidhu M.D. ? KW ?? D: ??06/07/2020 12:35 PM ?? T: ? Report ID: [id number] ?? Reading Location: ??[id number] ? REPORT ELECTRONICALLY SIGNED IN OTHER VENDOR SYSTEM ?? Resulting Agency Comment O Procedure Note Bakari Sidhu MD - 06/07/2020 Patient Name: RODNEYDERRICK BLANCO Dr: Francesco Cruz MD D.O.B: 1965 Exam Date: 06/07/20 0000 Age: 54 Sex: Female MR#: [id number] Loc: RADIOLOGY REPORT Order #[id number] Nuclear Medicine Gastric Emptying Study Signed EXAM DESCRIPTION: Gastric emptying scintigraphy RADIOPHARMACEUTICAL: 1 mCi Tc-99m sulfur colloid incorporated intoeggs p.o. REASON FOR STUDY: Early satiety. TECHNIQUE: After oral ingestion of the radiolabeled meal, sequentialanterior and posterior abdominal images were obtained. COMPARISON: None available. FINDINGS: At 60 minutes, the residual activity is 64.14% (normal: 30-90%). At 120 minutes, the residual activity is 30.74% (normal: less than 60%). At 180 minutes, the residual activity is 26.78% (normal: less than 30%). At 240 minutes, the residual activity is 1.57% (normal: less than 10%). IMPRESSION: Normal gastric emptying. THIS IS AN ELECTRONICALLY VERIFIED FINAL REPORT 06/07/2020 12:35 PM - Electronically signed by Bakari Sidhu M.D. KW T: Report ID: [id number] Reading Location: [id number] REPORT ELECTRONICALLY SIGNED IN OTHER VENDOR SYSTEM Francesco Cruz MD [facility] PROCEDURES Final Result documented in this encounter Visit Diagnoses Not on filedocumented in this encounter Care Teams Livestock Broker Relationship Specialty Start Date End Date Baldomero Domniguez MD PCP - General 01/07/17 Jaciel Melo MD Smt Machine Operator Cardiovascular Disease 04/12/19 2 documented as of this encounter
--- OUTSIDE RECORDS SUMMARY | 2024-07-11 07:39 | XMS_ITS | Encounter Summary ---
Author Organization [facility] Address [address] [place] [address] Phone Care Team Providers Care Marketing Area Manager Name Role Phone Baldomero Dominguez MD Primary Care Provider [phone] Jaciel Melo MD Unavailable [phone] Encounter Details Date Type Department Care Team (Late st Contact Info) Description 06/05/2020 Telephone [facility] Neema Bonilla Social History Tobacco Use Types Packs/Day Years Used Date Smoking Tobacco: Never Comments No Sex and Gender Information Value Date Recorded Sex Assigned at Not on file Legal Sex Female 1:19 PM HAM TRIMMER Gender Identity Not on file Sexual Orientation Not on file documented as of this encounter Miscellaneous Notes * Telephone Encounter - Neema Bonilla - 06/05/2020 9:07 AM CST 06.05.2020 Note sent to the division. Good afternoon Neema, I???ve received and reviewed Gregory Quesada #[id number]. The following information is still needed: Hepatitis screening Abdominal ultrasound Sleep study (her Stop-Bang screening was a 3 per Berry Atkins NP report) Thanks, Paulina Guerrero Medical Assistance Adult Basic Education Instructor III [facility] Division of Medical Programs [place] of Professional & Ancillary Services [phone] [email or web address] ----- Message from Neema Bonilla sent at 05/31/2020 11:14 AM HAM TRIMMER ----- Regarding: FW: Pre- D Benefits need verified Bariatric Primary Insurance Insurance Door Machine Operator & Phone: Jd seay/CORNEL Zenia @ [phone] case #[id number] is pending medical review Predetermination Date Sent: 05.31.2020 Comments: Faxed clinicals for CPT 22899 BW DOS 2020 to [phone] Secondary Insurance Insurance Door Machine Operator & Phone: [employer] @ [phone] Predetermination Date Sent: 05.31.2020 Comments: Faxed clinicals for CPT 88616 BW DOS 2020 to [phone] ----- Message ----- From: Darleen Foster Sent: 05/30/2020 11:29 AM HAM TRIMMER To: Arjun Coffman Pre-Determination Pool Subject: Pre- D Benefits need verified Bariatric Requesting Pre-Determination Benefits Ordering Physician: Guanaco Procedure Description: Sleeve CPT Code: 76482 Diagnosis Code: Morbid Obesity--DX E66.01 Place of Service: Admit Status: SDSA Tentative Date of Service: 2020 Other: The above location and date could possibly change. TRIMMER TRIMMER TRIMMER documented in this encounter Plan of Treatment Not on file documented as of this encounter Visit Diagnoses Not on filedocumented in this encounter Care Teams Marketing Area Manager Relationship Specialty Start Date End Date Baldomero Dominguez MD PCP - General 01/07/17 Jaciel Melo MD Corporate Webmaster Cardiovascular Disease 04/12/19 2 documented as of this encounter
--- OUTSIDE RECORDS SUMMARY | 2024-07-11 07:39 | XMS_ITS | Encounter Summary ---
Author Organization [facility] Healthcare Address [address] [place] [address] Care Team Providers Care Tie Binder Name Role Phone Baldomero Dominguez MD Primary Care Provider [phone] Jaciel Melo MD Unavailable [phone] Encounter Details Date Type Department Care Team (Late st Contact Info) Description 05/14/2020 7:36 AM CDT - 05/14/2020 8:55 AM CDT Hospital Encounter [address] [address] Unknown, Michelle Moss, [address] [address] Discharge Disposition: Discharge to home or self care Social History Tobacco Use Types Packs/Day Years Used Date Smoking Tobacco: Never Comments No Sex and Gender Information Value Date Recorded Sex Assigned at Not on file Legal Sex Female 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 PM 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 Gender Identity Not on file Sexual Orientation Not on file documented as of this encounter Last Filed Vital Signs Vital Sign Reading Time Taken Comments Blood Pressure 125/82 05/14/2020 7:47 AM CDT Pulse 78 05/14/2020 7:47 AM CDT Temperature 36.9 ??C (98.4 ??F) 05/14/2020 7:47 AM CD T Respiratory Rate - - Oxygen Saturation 97% 05/14/2020 7:47 AM CDT Inhaled Oxygen Concentration - - Weight 132.2 kg (291 lb 7.2 oz) 05/14/2020 7:47 AM CDT Height 167.6 cm (5' 6 ) 05/14/2020 7:47 AM CDT Body Mass Index 47.04 05/14/2020 7:47 AM CDT documented in this encounter Medications at Time [...] Procedure Name Priority Date/Time Associated Diagnosis Comments HIV 1/2 ANTIBODY PLUS P24 ANTIGEN Routine 05/14/2020 8:25 AM CDT HEPATITIS C ANTIBODY Routine 05/14/2020 8:25 AM CDT HEPATITIS B SURFACE ANTIGEN Routine 05/14/2020 8:25 AM CDT ALT Routine 05/14/2020 8:25 AM CDT documented in this encounter Results * HIV 1/2 Antibody plus p24 Antigen (05/14/2020 8:25 AM CDT) HIV Ag/Ab, 4th gen NONREACTIVE NONREACTIVE [facility] Comment: This assay tests for HIV-1, HIV-1 group O, and HIV-2 antibodies and p24 antigen. 05/14/2020 8:25 AM CDT 05/14/2020 8:27 AM CDT Narrative Resulting Agency Comment ER [facility] MICROBIOLOGY - GENERAL OR DERABLES Final Result Performing Organization Address [facility] de Phone Number [address] [phone] * Hepatitis C antibody (05/14/2020 8:25 AM CDT) Hep C Ab NONREACT NONREACTIVE [facility] Comment: Siemens [employer] InteractiveaurXP using JACKELYN (chemiluminescent immunoassay) technology. NONREACTIVE: Antibodies [...] OR DERABLES Final Result Performing Organization Address [facility] de Phone Number [address] [address], [place] [phone] * Hepatitis B Surface Antigen (05/14/2020 8:25 AM CDT) HepBsAg NONREACT NONREACTIVE [facility] Comment: Siemens CentaurXP using JACKELYN (chemiluminescent immunoassay) technology. NONREACTIVE: IgM antibodies to Hepatitis B Surface antigen not detected. REACTIVE: IgM antibodies to Hepatitis B Surface antigen detected. Reactive results will be confirmed by neutralization testing. 05/14/2020 8:25 AM CDT 05/14/2020 8:27 AM CDT Narrative Resulting Agency Comment ER [facility] MICROBIOLOGY - GENERAL OR DERABLES Final Result Performing Organization Address City/[facility]/ZIP Co de Phone Number [address] [phone] * ALT (05/14/2020 8:25 AM CDT) Pathologist [facility] ALT 19 0 - 33 U/L [facility] 05/14/2020 8:25 AM CDT 05/14/2020 8:27 AM CDT Narrative Resulting Agency Comment ER [facility] BLOOD ORDERABLES Final Re sult [address] [phone] documented in this encounter Visit Diagnoses Not on filedocumented in this encounter Care Teams Tie Binder Relationship Specialty Start Date End Date Baldomero Dominguez MD PCP - General 01/07/17 Jaciel Melo MD Sociology Teacher Cardiovascular Disease 04/12/19 2 documented as of this encounter
--- OUTSIDE RECORDS SUMMARY | 2024-07-11 07:39 | XMS_ITS | Encounter Summary ---
Author Organization [facility] Healthcare Address [address] [place] [address] Care Team Providers Care Liability Claims Adjuster Name Role Phone Baldomero Dmoinguez MD Primary Care Provider Jaciel Melo MD Unavailable [phone] Encounter Details Date Type Department Care Team (Late st Contact Info) Description 06/08/2020 Telephone [facility] Healthcare Occupatiuonal Health [address] [facility] [address] (Third Floor) [place], [place] [id number] Gertrudis Recinos, SHIVANI [address] [address] Social History Tobacco Use Types Packs/Day Years Used Date Smoking Tobacco: Never Comments No Sex and Gender Information Value Date Recorded Sex Assigned at Not on file Legal Sex Female 1:19 PM 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 [employer]-sam Director Experimental Medicine/Barrel Roller name and email address: Edith Hobson/ [email or web address] Are you working/studying from home or on-site? On-site Have you been tested for Covid-19 previously? Yes Have you ever had a positive COVID-19 swab or saliva test? No What was the date of your most recent negative test? 05/10/2020 Have you had a known, specific COVID exposure within the last 14 days? Yes Did the exposure take place at work / on campus? Yes Have you contacted your Occupational Health office or Student Health Services? No Contact Occupational Health Comment not open on the weekend Was your exposure to a patient, coworker or visitor Patient Date of exposure: 06/08/2020 Name of the COVID-19 positive person to whom you were exposed: employee does not know patient name-[address] Was the person to whom you were exposed wearing a mask/face covering? No Date of the COVID-19 test for the person to whom you were exposed: 06/08/2020 Test result of the person to whom you were exposed: Positive What PPE was employee wearing? Mask;Gloves Description of exposure: employee went into patient room X 2 to draw blood- patient's room and patient was not properly identified Employee Symptoms: No Do you currently live with, or have ongoing contact with, someone known or suspected to have COVID-19? No Exposure Risk (See Exposure Guide): Significant Exposure Assessment: Asymptomatic, occupational exposure Plan: (B) Work with mask and active symptom monitoring Script B (can work with mask and active symptom monitoring) Healthcare workers with known exposures to Covid-19, but who are asymptomatic, may continue to work; but must take the following precautions. ?? You must wear an isolation mask at all times while at work except while eating, which you shoulddo in a separate area away for other people. You may wear the same isolation mask all day or until it becomes soiled or damp, at which point it should be discarded and replaced. ?? You must perform active symptom monitoring: ?? You must record your temperature and any symptoms you may have twice a day (morning and evening)using the COVID-19 Symptom Log at: [email or web address]. If you donot have Internet access, use the form we will mail to you. ?? You must notify your local occupational Health office as before the start of each work shift during the 14 days to confirm that you have no concerning symptoms and your temperature is less than 100??F. If you are using the [employer] database, you will not need a separate notification. Otherwise: ?? For [facility], email [email or web address] ?? For [facility], call your local [place] office at (see list of [facility] [place] phone numbers Appendix D) ?? If you develop a temperature of 100??F or higher, OR if you develop a sore throat, cough, shortness of breath, body aches, loss of taste or smell and/or congestion that is not consistent with any chronic symptoms you may have, you should NOT come to work and should notify your location Occupational Health office or the Employee Covid-19 call center. ?? If you develop even mild symptoms while at work, you must stop work, notify your agency appointments supervisor, andcontact your local Occupational Health office or the employee Covid-19 call center. ?? You are restricted from working with bone marrow transplant (BMT) patients. If working with BMT patients is your primary assignment and you cannot be reassigned, you will not be allowed to come towork for 14 days from the time of exposure ?? You must comply with these precautions (masking, active symptom monitoring, no work with BMT patients ) for at least 14 days from the time of your last exposure. ?? If you live with someone known or suspected to have Covid-19, you must comply with these precautions until 14 days after your household contact is release from home isolation ?? You must also follow home quarantine guidelines (see Appendix B), with the exception that you are allowed to work. ?? If the procedures are not followed, you will not be allowed to come to work. MASK ASSEMBLER documented in this encounter Plan of Treatment Not on file documented as of this encounter Visit Diagnoses Not on filedocumented in this encounter Care Teams Liability Claims Adjuster Relationship Specialty Start Date End Date Baldomero Dominguez MD PCP - General 01/07/17 Jaciel Melo MD Content Development Specialist Cardiovascular Disease 04/12/19 2 documented as of this encounter
--- OUTSIDE RECORDS SUMMARY | 2024-07-11 07:39 | XMS_ITS | Encounter Summary ---
Author Organization [facility] Address [address] [facility] [address] [place] [address] Phone Care Team Providers Care Industrial Technology Education Teacher Name Role Phone Baldomero Dominguez MD Primary Care Provider [phone] Jaciel Melo MD Unavailable [phone] Encounter Details Date Type Department Care Team (Late st Contact Info) Description 06/07/2020 Orders Only [facility] Surgery [address] [facility] [address] [place] [address] Thierno Blanc MD [address] [facility] [phone] [place] [address] Social History Tobacco Use Types Packs/Day Years Used Date Smoking Tobacco: Never Comments No Sex and Gender Information Value Date Recorded Sex Assigned at Not on file Legal Sex Female 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
--- OUTSIDE RECORDS SUMMARY | 2024-07-11 07:40 | XMS_ITS | Encounter Summary ---
Author Organization [facility] Address [address] [place] [address] Phone Care Team Providers Care Airport Operations Coordinator Name Role Phone Baldomero Dominguez MD Primary Care Provider [phone] Jaciel Melo MD Unavailable [phone] Reason for Referral * Diagnostic Imaging (Routine) - Closed Specialty Diagnoses / Procedures Referred By Vianca montiel Referred To Contact Diagnoses Morbid obesity (HCC) Procedures US Abdomen Limited Thierno Blanc MD Phone: tel: fax: External Order Referral ID Status Reason Start Date Expiration Date Visits Re quested Visits Authorized [id number] Closed 04/23/2020 05/23/2021 1 1 * Consultation (Routine) - Closed Specialty Diagnoses / Procedures Referred By Vianca montiel Referred To Contact Sleep Medicine Diagnoses Morbid obesity (HCC) Thierno Blanc MD Phone: tel: fax: External Order Referral ID Status Reason Start Date Expiration Date V isits Requested Visits Authorized [id number] Closed Specialty Services Required 04/23/2020 05/23/2021 1 1 Question Answer Please select the performing region: External Order [171] # of visits: 1 Encounter Details Date Type Department Care Team (Late st Contact Info) Description 04/23/2020 Orders Only [facility] Surgery [address] [facility] [address] Office Building [address] [place] [address] Thierno Blanc MD [address] [facility] [phone] [place] [address] Morbid obesity (CMS/HCC) (Primary Dx) Social History Tobacco Use Types Packs/Day Years Used Date Smoking Tobacco: Never Comments No Sex and Gender Information Value Date Recorded Sex Assigned at Not on file Legal Sex Female 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 Gender Identity Not on file Sexual Orientation Not on file documented as of this encounter Plan of Treatment Scheduled Referrals Name Type Priority Associated Diagnoses Order Schedule Ambulatory referral to Sleep Medicine Outpatient Referral Routine Morbid obesity (CMS/HCC) Expected: 05/07/2020 (Approximate), Expires: 04/23/2021 documented as of this encounter Visit Diagnoses Diagnosis Morbid obesity (HCC)- Primary Morbid obesity documented in this encounter Orders Imaging Orders Without Results Count Last Order ed Date First Ordered Date US ABDOMEN LIMITED 1 04/23/2020 documented in this encounter Care Teams Airport Operations Coordinator Relationship Specialty Start Date End Date Baldomero Dominguez MD PCP - General 01/07/17 Jaciel Melo MD Cash Control Specialist Cardiovascular Disease 04/12/19 2 documented as of this encounter
--- OUTSIDE RECORDS SUMMARY | 2024-07-11 07:40 | XMS_ITS | Encounter Summary ---
Author Organization [facility] Healthcare Address [address] [place] [address] Care Team Providers Care Interpersonal Communications Professor Name Role Phone Baldomero Dominguez MD Primary Care Provider [phone] Jaciel Melo MD Unavailable [phone] Reason for Visit * Reason Comments Obesity Encounter Details Date Type Department Care Team (Latest Contact Info) Description 04/17/2020 9:00 AM CDT Clinical Support [facility] [address] [address] Thierno Blanc MD [address] [facility] [phone] [place] [address] Morbid obesity (CMS/HCC) (Primary Dx) Discharge Disposition: Discharge to home or self care Social History Tobacco Use Types Packs/Day Years Used Date Smoking Tobacco: Never Comments No Sex and Gender Information Value Date Recorded Sex Assigned at Not on file Legal Sex Female 1:19 PM RN SHIFT MGR Gender Identity Not on file Sexual Orientation Not on file documented as of this encounter Last Filed Vital Signs Vital Sign Reading Time Taken Comments Blood Pressure - - Pulse - - Temperature - - Respiratory Rate - - Oxygen Saturation - - Inhaled Oxygen Concentration - - Weight 130.2 kg (287 lb) 04/17/2020 11:50 AM CDT Height 167.6 cm (5' 6 ) 04/17/2020 11:50 AM CDT Body Mass Index 46.32 04/17/2020 11:50 AM CDT documented in this encounter Patient Instructions * Patient Instructions* Kaykay Coelho - 04/17/2020 9:00 AM CDT Goals for this month: she set the following goals: (marked with an X) x Increase physical activity - per physical therapist guidelines x Resume keeping food records with My Fitness Pal (free version) aiming for 1500 calories x Continue to include fruits and vegetables daily x Obtain MVI prior to bariatric surgery (take 2 a day after bariatric surgery) x Obtain Calcium citrate with Vitamin D and take 1200 - 1500 mg per day after bariatric surgery x Obtain Vitamin B 12 - 500 mcg and take once a day after bariatric surgery documented in this encounter Discharge Disposition Disposition Code Departure Means Destination Discharge to home or self care documented in this encounter Progress Notes * Kaykay Coelho - 04/17/2020 9:00 AM CDT Rowena Quesada 1965 is a 54 y.o. female Referring Physician: Dr. Blanc 04/17/2020 Medically Supervised Weight Loss Visit Month 6 (Months 1 - 4 were done with PCP) This was a telemedicine visit with Rowena Quesada alone which took place via Real-time video connection ([employer], Zoom or similar). During the visit, I was located in my [facility] office and the patient was located in her home. Clinic was closed due to COVID-. Only visits available to patients were telehealth visits. The option of participating in a telephone or videovisit during the COVID-19 public health emergency was explained to Ms. Quesada. Ms. Quesada has been informed that the visit may not be secure and acknowledged the information. After being given an opportunity to ask questions about and discuss this type of visit, Ms. Rowena Martinez Dipak consented to the telephone / video visit. Ms. Guaman Michelle Quesada understands that this service replaces an office visit and she may be billed and/or responsible for any applicable copayment. The session started at 0911 and ended at 0941 Total Minutes: 30 min Chief Complaint Patient presents with ??? Obesity Height: 167.6 cm (5' 6 ) Weight: 130.2 kg (287 lb) Body mass index is 46.32 kg/m??. Weight change from previous visit: loss of 2.2 lb Patient Active Problem List Diagnosis ??? Arthralgia of hip ??? Morbid obesity (CMS/HCC) ??? Crohn's disease (CMS/HCC) ??? Paroxysmal supraventricular tachycardia (CMS/HCC) ??? Morbid obesity due to excess calories (CMS/HCC) Lab Results Component Value Date CHOL 205 (H) 01/17/2020 TRIG 95 01/17/2020 HDL 51 01/17/2020 LDL 134 (H) 01/17/2020 ALBUMIN 3.7 01/17/2020 GLUCOSE 114 01/17/2020 HGBA1C 5.9 (H) 01/17/2020 FERRITIN 39 01/17/2020 IRON 50 01/17/2020 TIBC 327 01/17/2020 TRANSFERSAT 11 (L) 05/25/2018 25HYDROVITD 24 (L) 05/25/2018 VITB12 297 01/17/2020 Current Outpatient Medications: ??? albuterol HFA (ProAir HFA) 90 mcg/actuation inhaler, ProAir HFA 90 mcg/actuation aerosol inhaler, Disp: , Rfl: ??? diltiaZEM (CARDIZEM) 120 mg tablet, Take 120 mg by mouth 2 (two) times a day, Disp: , Rfl: ??? ergocalciferol (VITAMIN D) 50,000 unit capsule, Take 50,000 Units by mouth once a week, Disp: ,Rfl: ??? iron 18 mg tablet, Take by mouth daily, Disp: , Rfl: ??? meloxicam (MOBIC) 7.5 mg tablet, , Disp: , Rfl: ??? traMADoL (ULTRAM) 50 mg tablet, TK 1 T PO Q 8 H PRF PAIN, Disp: , Rfl: 24 hour diet recall: Breakfast: Premier protein shake, banana Lunch: Salad with lettuce, radish, tomato, red cabbage, carrots, diced ham, Urdu dressing, waterwith no sugar flavor packet Dinner: [place] sausage, sauerkraut, green beans, water with no sugar flavor packet Evening snack: 1 poptart Beverages: water throughout day Current Diet: Over the past month, Ms. Quesada stopped skipping breakfast and began eating 3 meals/day. Continues to limit eating after 7:00 p.m. She has been avoiding beverages with added sugar. Occasionally drinks diet soda, but primary beverage is water. She is drinking Premier protein shake forbreakfast most days of the week. Eating fruit ~3 times/day and including vegetables at least once a day. Whole grain intake is inadequate. Cooking - she does the cooking for the home and has been limiting fried foods. Grocery shopping - She reads food labels. Portion sizes - working on portion control. She had been keeping food records with [employer] sandy - premium version which costs. She states her subscription ended and she wasn't able to afford currently, so has not been keeping food records. Recommended she sign up for the free version of [employer] sandy which still allows tracking calories, protein, carb, fat, etc. Supplement use: Multivitamin - does not take. Calcium supplement - does not take. Vitamin D supplement - takes. Vitamin B 12 supplement - does not take. Takes 18 mg Iron per day. Current Diet: The [place]-St Jeor formula estimates her resting energy expenditure at 1943 calories. An activity factor of 1.3 estimates her daily calorie needs at 2525. A 1500-calorie level should result in approximately 2 # weight loss / week. Exercise: no regular exercise, had been limited due to torn meniscus and pain. She had surgical repair and will be starting physical therapy this week. Behavioral and lifestyle modifications: Reviewed strategies to help promote weight loss including: decreasing sugar sweetened beverages, decreasing portion sizes, calorie density, increasing fruit and vegetable intake, limiting fat intake, keeping electronic food records, and increasing physical activity. Reviewed supplements required after bariatric surgery. She has demonstrated the following goals: (marked with an X) Month 1 - 4 were with PCP Increased physical activity x Eats 3 meals / day (try protein shake for breakfast versus skipping) Decreased portions Decreased fat intake Stop sugar and replace with sugar substitute Stop/limit regular soda and beverages with added sugar x Increase intake of fruit to 3 times per week (including 2 - 3 times per day) x Include vegetables in diet daily Read food labels Decrease fast food intake Keep food records Understanding of carbohydrates, fat and protein Goals for this month: she set the following goals: (marked with an X) x Increase physical activity - per physical therapist guidelines x Resume keeping food records with My Fitness Pal (free version) aiming for 1500 calories x Continue to include fruits and vegetables daily x Obtain MVI prior to bariatric surgery (take 2 a day after bariatric surgery) x Obtain Calcium citrate with Vitamin D and take 1200 - 1500 mg per day after bariatric surgery x Obtain Vitamin B 12 - 500 mcg and take once a day after bariatric surgery Eat more home prepared meals Decrease fast food intake Keep food records Eat mindfully Plan Menu in advance Grocery shop with a list Read food label Food prep in advance Kaykay Coelho MA, RDN, LD, CDE Diabetes Education and Nutritional Counseling documented in this encounter Plan of Treatment Not on file documented as of this encounter Visit Diagnoses Diagnosis Morbid obesity (HCC)- Primary Morbid obesity documented in this encounter Care Teams Interpersonal Communications Professor Relationship Specialty Start Date End Date Baldomero Dominguez MD PCP - General 01/07/17 Jaciel Melo MD Pvc Monitor Cardiovascular Disease 04/12/19 2 documented as of this encounter
--- OUTSIDE RECORDS SUMMARY | 2024-07-11 07:40 | XMS_ITS | Encounter Summary ---
Author Organization [facility] Address [address] [place] [address] Phone Care Team Providers Care Streets And Buildings Decorator Name Role Phone Baldomero Dominguez MD Primary Care Provider [phone] Jaciel Melo MD Unavailable [phone] Encounter Details Date Type Department Care Team (Late st Contact Info) Description 05/03/2020 Telephone [facility] 8th [place] [address] [place] [address] Velvet Stevens RN Social History Tobacco Use Types Packs/Day Years Used Date Smoking Tobacco: Never Comments No Sex and Gender Information Value Date Recorded Sex Assigned at Not on file Legal Sex Female 1:19 PM FIRE EXTINGUISHER CHARGER Gender Identity Not on file Sexual Orientation Not on file documented as of this encounter Miscellaneous Notes * Telephone Encounter - eVlvet Stevens RN - 05/03/2020 1:47 PM CDT Nurse spoke with Marika at [facility] at [phone]. Nurse faxed sleep study order as well as office notes documenting patient's STOP BANG score of 3 as well as patient's insurance requesting sleep study as indicated. Faxed to [phone]. documented in this encounter Plan of Treatment Not on file documented as of this encounter Visit Diagnoses Not on filedocumented in this encounter Care Teams Streets And Buildings Decorator Relationship Specialty Start Date End Date Baldomero Dominguez MD PCP - General 01/07/17 Jaciel Melo MD Field Ring Assembler Cardiovascular Disease 04/12/19 2 documented as of this encounter
--- OUTSIDE RECORDS SUMMARY | 2024-07-11 07:40 | XMS_ITS | Encounter Summary ---
Author Organization [facility] Address [address] [place] [address] Phone Care Team Providers Care Personal Companion Name Role Phone Baldomero Dominguez MD Primary Care Provider [phone] Jaciel Melo MD Unavailable [phone] Encounter Details Date Type Department Care Team (Late st Contact Info) Description 04/23/2020 Telephone [facility] Surgery [address] [place] [address] Medical Office Building [address] [place] [address] Velvet Nguyen, RN Social History Tobacco Use Types Packs/Day Years Used Date Smoking Tobacco: Never Comments No Sex and Gender Information Value Date Recorded Sex Assigned at Not on file Legal Sex Female 1:19 PM HOME HEALTH CARE CASE MANAGER Gender Identity Not on file Sexual Orientation Not on file documented as of this encounter Miscellaneous Notes * Telephone Encounter - Velvet Nguyen RN - 04/23/2020 3:02 PM CDT Per IDPA guidelines pt needs the following additional items: Cardiac Clearance/Risk assessment letter: Pt will obtain this with her PCP PFT: Orders sent to Dr. Gonzalez (fax [phone]) per pt request Sleep Study: External orders mailed to patient per pt request Abdominal US: External orders mailed to patient per pt reques Chest XR: Scanned into Media Per Dr. Blanc, pt needs to request GI records summarizing her crohns disease status. Records request sent to Dr. Mahad Lucia ([phone]) per pt request. documented in this encounter Plan of Treatment Not on file documented as of this encounter Visit Diagnoses Not on filedocumented in this encounter Care Teams Personal Companion Relationship Specialty Start Date End Date Baldomero Dominguez MD PCP - General 01/07/17 Jaciel Melo MD Television Antenna Installer Cardiovascular Disease 04/12/19 2 documented as of this encounter
--- OUTSIDE RECORDS SUMMARY | 2024-07-11 07:40 | XMS_ITS | Encounter Summary ---
Author Organization [facility] Address [address] [facility] [address] [place] [address] Phone Care Team Providers Care Agricultural Adviser Name Role Phone Baldomero Dominguez MD Primary Care Provider [phone] Jaciel Melo MD Unavailable Encounter Details Date Type Department Care Team (Late st Contact Info) Description 05/03/2020 Orders Only [facility] Surgery [address] [facility] 8th [place] [address] [place] [address] Berry Atkins, PREVENTION RN [address] [facility] [phone] [place] [address] Snoring (Primary Dx); Poor sleep Social History Tobacco Use Types Packs/Day Years Used Date Smoking Tobacco: Never Comments No Sex and Gender Information Value Date Recorded Sex Assigned at Not on file Legal Sex Female 1:19 PM FIELD COORDINATOR Gender Identity Not on file Sexual Orientation Not on file documented as of this encounter Plan of Treatment Not on file documented as of this encounter Visit Diagnoses Diagnosis Snoring- Primary Other dyspnea and respiratory abnormality Poor sleep documented in this encounter Care Teams Agricultural Adviser Relationship Specialty Start Date End Date Baldomero Dominguez MD PCP - General 01/07/17 Jaciel Melo MD Bid Analyst Cardiovascular Disease 04/12/19 2 documented as of this encounter
--- OUTSIDE RECORDS SUMMARY | 2024-07-11 07:40 | XMS_ITS | Encounter Summary ---
Author Organization [facility] Address [address] [facility] [address] [place] [address] Care Team Providers Care Plastics Process Hand Name Role Phone Baldomero Dominguez MD Primary Care Provider [phone] Jaciel Melo MD Unavailable [phone] Encounter Details Date Type Department Care Team (Late st Contact Info) Description 05/09/2020 Orders Only [facility] Testing Site - [address] [phone] Laith Smart MD [address] [facility] [address] [address] Preop testing (Primary Dx) Social History Tobacco Use Types Packs/Day Years Used Date Smoking Tobacco: Never Comments No Sex and Gender Information Value Date Recorded Sex Assigned at Not on file Legal Sex Female 1:19 PM GYMNASTICS INSTRUCTOR Gender Identity Not on file Sexual Orientation Not on file documented as of this encounter Progress Notes * Darryl Valdes - 05/09/2020 2:04 PM CDT Patient screened and qualifies for covid testing. Called/left voicemail. Patient directed to [facility] for testing on 05/10. Directions were provided. documented in this encounter Miscellaneous Notes * Addendum Note - Teresa Crawford - 05/09/2020 2:04 PM CDTAddended by: TERESA CRAWFORD on: 05/11/2020 12:39 AM Modules accepted: Orders documented in this encounter Plan of Treatment Not on file documented as of this encounter Results * COVID-19 Coronavirus RNA Nasopharyngeal (05/10/2020 4:10 PM CDT) COVID-19 RNA Not Detected [facility] Comment: Interpretive Data Testing performed at [facility] Molecular Infectious Disease Laboratory. The 2018-Novel Coronavirus [...] revised on 2019. First COVID-19 test? Unknown [facility] Employeed in healthcare? Unknown [facility] status? No [facility] Group care resident? Unknown [facility] Hospitalized? No [facility] Is patient in ICU? No [facility] Symptomatic as defined by CDC? No [facility] Nasopharyngeal 05/10/2020 4: 10 PM CDT 05/11/2020 5:55 AM CDT Narrative [facility] - 05/11/2020 9:38 PM CDT What is the reason for testing?->Screening prior to scheduled (>12 hr) surgery or procedure us Laith mSart MD LAB MICROBIOLOGY - GENERA L ORDERABLES Final Result [facility] Department [place] [address] documented in this encounter Visit Diagnoses Diagnosis Preop testing- Primary Unspecified pre-operative examination Preop testing Unspecified pre-operative examination documented in this encounter Care Teams Plastics Process Hand Relationship Specialty Start Date End Date Baldomero Dominguez MD PCP - General 01/07/17 Jaciel Melo MD Air Export Operations Agent Cardiovascular Disease 04/12/19 2 documented as of this encounter
--- OUTSIDE RECORDS SUMMARY | 2024-07-11 07:40 | XMS_ITS | Encounter Summary ---
Author Organization [facility] Address [address] [facility] [address] [place] [address] Phone Care Team Providers Care Data Quality Consultant Name Role Phone Baldomero Dominguez MD Primary Care Provider [phone] Jaciel Melo MD Unavailable [phone] Encounter Details Date Type Department Care Team (Late st Contact Info) Description 04/22/2020 4:30 PM CDT Telemedicine [facility] Surgery [address] [place] [address] Medical Office Building [address] [place] [address] Thierno Blanc MD [address] [facility] [phone] [place] [address] Morbid obesity (CMS/HCC) (Primary Dx); Essential hypertension; Pure hypercholesterolemia; Osteoarthritis Social History Tobacco Use Types Packs/Day Years Used Date Smoking Tobacco: Never Comments No Sex and Gender Information Value Date Recorded Sex Assigned at Not on file Legal Sex Female 1:19 PM STAFF WEAPONS OFFICER Gender Identity Not on file Sexual Orientation Not on file documented as of this encounter Progress Notes * Thierno Blanc MD - 04/22/2020 4:30 PM CDT Images from the original note were not included. This was a telemedicine visit with Rowena Quesada alone which took place via Real-time video connection (Knoda, Qwickly or similar).During the visit, I was located in the office and the patient was located in [place] in the [facility]. My visit with the patient started at 4:42 and ended at 5:15PM. The patient: has been informed that the visit may not be secure and acknowledged the information. Iexplained the option of participating in a telephone or video visit during the COVID-19 public health emergency to them. After being given an opportunity to ask questions about and discuss this type of visit, they verbally consented to proceeding with the telephone/video visit and understand that this service replaces an office visit. Thierno Blanc MD [facility] Metabolic & Weight Loss Surgery Pre-Operative Bariatric Surgeon Visit CONSULT REQUESTED BY: Baldomero Dominguez Ms. Rowena Quesada presents today for telemedicine visit for ongoing evaluation of clinically severe obesity. The patient is a 54 y.o. female who today weighed 289 lbs. At a height of 5 ft 6 in tall she has a current body mass index of 46.6. She has failed previous medical management of her weight. She has obesity related comorbidities including benign hypertension, hypercholesterolemia and osteoarthritis. Her osteoarthritis affects both knees as well as the back. She also has a questionable history Crohn's disease over the last 10 years although she has been off of medications in remissionfor at least the last 5 years. This was initially diagnosed by stock sheets cleaner inspector based on blood work in the setting of intermittent diarrhea and constipation. She has had a colonoscopy within the last 2 years that showed no active ongoing disease but I am not aware of all of her evaluation. She has also been told that she has a umbilical hernia which was detected around the time of her cholecystectomy but was not repaired. This is given her no symptoms. Her excess body weight interferes with activities of daily living and negatively impacts quality oflife. After completing the evaluation process, the patient is interested in moving forward with bariatric surgery. PAST MEDICAL HISTORY: She has a past medical history of Hypertension, Osteoarthritis, Irritable bowel syndrome/Crohn's disease, Anemia, and Supraventricular tachycardia by ECG (CMS/HCC). PAST SURGICAL HISTORY: She has a past surgical history that includes Laparoscopic Cholecystectomy; section; recent knee meniscus repair, and Nose surgery. MEDICATIONS: She has a current medication list which includes the following prescription(s): diltiazem, meloxicam, tramadol, albuterol hfa, ergocalciferol, iron. ALLERGIES: She has No Known Allergies. FAMILY HISTORY: Her family history includes Cancer in her mother; Diabetes in her mother; Hypertension in her mother; Obesity in her mother. SOCIAL HISTORY: She reports that she has never smoked. She does not have any smokeless tobacco history on file. No history on file for alcohol and drug. REVIEW OF SYSTEMS: A comprehensive review of systems was completed by the patient; and reviewed, signed, and scanned into the chart. PHYSICAL EXAMINATION: She had a scale to measure her weight but no BP cuff today Wt: 289 lbs. GENERAL: Morbidly obese individual in no acute distress. NEURO: Alert and oriented x3, mood and affect appropriate. HEENT: Pupils equal. EOMs grossly normal. NECK: Supple. Trachea midline. PULMONARY: Breathing comfortably on room air. No audible wheezes. CARDIOVASCULAR: No cyanosis with 2+ edema. No venous stasis changes. SKIN: Smooth and dry. No rashes. ABDOMEN: Central obesity. No visible masses or hernias. MUSCULOSKELETAL: Grossly normal range of motion. No limp. RESULTS: I have independently reviewed the pre-operative labs and EKG. These are significant for an elevatedfasting cholesterol of 205 and hemoglobin A1c of 5.9. The patient has had an EGD. This showed a normal esophagus and duodenum with antral gastritis. A small sliding hiatal hernia was identified less than 1 cm. I have reviewed the evaluations from our paid search specialist, psychologist and physical therapist and they have all agreed that the patient is an appropriate candidate for bariatric surgery. ASSESSMENT AND PLAN: Patient Active Problem List Diagnosis ??? Arthralgia of hip ??? Morbid obesity (CMS/HCC) ??? Crohn's disease (CMS/HCC) ??? Paroxysmal supraventricular tachycardia (CMS/HCC) ??? Morbid obesity due to excess calories (CMS/HCC) Rowena Quesada is a pleasant 54 y.o. year old female who presents for telemedicine visit today for pre-operative evaluation for bariatric surgery. She has a history of morbid obesity with a body mass index of 46.6 complicated by benign hypertension and osteoarthritis making her an excellent candidate. We reviewed the surgical options of Omid Y gastric bypass, sleeve gastrectomy, and adjustable gastric banding. The patient ultimately has opted for a Laparoscopic Sleeve Gastrectomy. Although the basis of the diagnosis of Crohn's disease is in question, I think a sleeve gastrectomy is a carvalho choicein this situation. Her hiatal hernia is minimal and she has no symptoms of GERD so her risk of postop GERD should not be elevated. I did ask her to forward records from her stock sheets cleaner inspector regarding the basis of her diagnosis of Crohn's disease and most recent examinations. We discussed the specific risks and benefits of the procedure and the patient understands and wishes to proceed. We will set her up for the surgery after obtaining appropriate insurance precertification. Thierno Blanc MD interstate bus dispatcher Minimally Invasive Surgery Department of Surgery p: [phone] documented in this encounter Plan of Treatment Not on file documented as of this encounter Visit Diagnoses Diagnosis Morbid obesity (HCC)- Primary Morbid obesity Essential hypertension Unspecified essential hypertension Pure hypercholesterolemia Osteoarthritis Osteoarthrosis, unspecified whether generalized or localized, unspecified site documented in this encounter Care Teams Data Quality Consultant Relationship Specialty Start Date End Date Baldomero Dominguez MD PCP - General 01/07/17 Jaciel Melo MD Tafe Teacher Cardiovascular Disease 04/12/19 2 documented as of this encounter
--- OUTSIDE RECORDS SUMMARY | 2024-07-11 07:41 | XMS_ITS | Encounter Summary ---
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 Endoscopy [id number] [place] [address] Blanche Leo MD [address] [facility] [address] [place] [place], [place] [id number] ESOPHAGOGASTRODUODENOSCOPY BIOPSY Surgery Details Date/Time Status Location OR Service Patient Class Case Class Case Type Trauma Case? 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 Gender Identity Not on file Sexual Orientation Not on file documented as of this encounter Last Filed Vital Signs Vital Sign Reading Time Taken Comments Blood Pressure 132/73 03/01/2020 9:00 AM CDT Pulse 77 03/01/2020 9:00 AM CDT Temperature 36.5 ??C (97.7 ??F) 03/01/2020 9:00 AM CD T Respiratory Rate 15 03/01/2020 9:00 AM CDT Oxygen Saturation 97% 03/01/2020 9:00 AM CDT Inhaled Oxygen Concentration - - Weight 128.8 kg (284 lb) 03/01/2020 8:10 AM CDT Height 167.6 cm (5' 6 ) 03/01/2020 8:10 AM CDT Body Mass Index 45.84 03/01/2020 8:10 AM CDT documented in this encounter Discharge Instructions * Discharge Instructions* Blanche Leo MD - 02/29/2020 8:36 AM CDT Upper Endoscopy WHAT YOU NEED TO KNOW: An upper endoscopy is also called an upper gastrointestinal (GI) endoscopy, or an esophagogastroduodenoscopy (EGD). You may feel bloated, gassy, or have some abdominal discomfort after your procedure. Your throat may be sore for 24 to 36 hours. You may burp or pass gas from air that is still insideyour body. DISCHARGE INSTRUCTIONS: Call 911 if: ?? You have sudden chest pain or trouble breathing. ?? Seek care immediately if: ?? You feel dizzy or faint. ? You have trouble swallowing. ? You have severe throat pain. ? Your bowel movements are very dark or black. ? Your abdomen is hard and firm and you have severe pain. ? You vomit blood. Contact your healthcare provider if: ?? You feel full or bloated and cannot burp or pass gas. ? You have not had a bowel movement for 3 days after your procedure. ? You have neck pain. ? You have a fever or chills. ? You have nausea or are vomiting. ? You have a rash or hives. ? You have questions or concerns about your endoscopy. Relieve a sore throat: Suck on throat lozenges or crushed ice. Gargle with a small amount of warm salt water. Mix 1 teaspoon of salt and 1 cup of warm water to make salt water. Relieve gas and discomfort from bloating: Lie on your right side with a heating pad on your abdomen. Take short walks to help pass gas. Eat small meals until bloating is relieved. Rest after your procedure: Do not drive or make important decisions until the day after your procedure. Return to your normal activity as directed. You can usually return to work the day after your procedure. Follow up with your healthcare provider as directed: Write down your questions so you remember to ask them during your visits. If you have a any questions or concerns, please give [facility] Weight Loss Surgery a call during the day at [phone], Option 2 or at [phone] at night or on the weekends. documented in this encounter Medications at Time of Discharge albuterol HFA (PROVENTIL HFA,VENTOLIN HFA,PROAIR HFA) 90 mcg/actuation inhaler Inhale 1 puff every 6 (six) hours as needed for wheezing 4 diltiaZEM (CARDIZEM) 120 mg tabletIndications :Supraventricular Arrhythmias Take 120 mg by mouth nightly Can take up to two times per day 0 ergocalciferol (VITAMIN D) 50,000 unit capsule Take 50,000 Units by mouth once a week 0 iron 18 mg tabletIndications :anemia Take 18 [...] documented in this encounter H&P Notes * Blanche Leo MD - 02/29/2020 8:36 AM CDT [facility] Minimally Invasive Surgery Endoscopy History & Physical Exam HISTORY OF PRESENT ILLNESS: The patient is a 54 y.o. female with a past medical history of heartburn and morbid obesity who presents for an upper endoscopy for the indications of heartburn and preoperative planning for bariatric surgery. PAST MEDICAL HISTORY: She has a past medical history of Anemia, Arthritis, Heart disease, Hypertension, Irritable bowel syndrome, Joint pain, and Morbid obesity (CMS/HCC). PAST SURGICAL HISTORY: She has a past surgical history that includes Cholecystectomy; section; and Nose surgery. MEDICATIONS: She Medications Prior to Admission Medication Sig Dispense Refill Last Dose ??? diltiaZEM (CARDIZEM) 120 mg tablet Take 120 mg by mouth 2 (two) times a day 02/29/2020 at Unknowntime ??? ergocalciferol (VITAMIN D) 50,000 unit capsule Take 50,000 Units by mouth once a week Past Weekat Unknown time ??? iron 18 mg tablet Take by mouth daily 02/29/2020 at Unknown time ??? meloxicam (MOBIC) 7.5 mg tablet 02/29/2020 at Unknown time ??? traMADoL (ULTRAM) 50 mg tablet TK 1 T PO Q 8 H PRF PAIN 02/29/2020 at Unknown time ??? albuterol HFA (ProAir HFA) 90 mcg/actuation inhaler ProAir HFA 90 mcg/actuation aerosol inhalerUnknown at Unknown time ALLERGIES: She has No Known Allergies. FAMILY HISTORY: Her family history includes Cancer in her mother; Diabetes in her mother; Hypertension in her mother; Obesity in her mother. SOCIAL HISTORY: She reports that she has never smoked. She does not have any smokeless tobacco history on file. No history on file for alcohol and drug. REVIEW OF SYSTEMS: 10 system review of systems discussed and negative. PHYSICAL EXAMINATION: Temp 36.9 ??C (98.4 ??F) (Temporal) Ht 167.6 cm (5' 6 ) Wt 128.8 kg (284 lb) BMI 45.84 kg/m?? GENERAL: No acute distress. NEURO: Alert and oriented x3, mood and affect appropriate. HEENT: Pupils equal. EOMs grossly normal. NECK: Supple, trachea was in midline. PULMONARY: Non-labored breathing, no audible wheezing CARDIOVASCULAR: Regular rate and rhythm. SKIN: Smooth and dry. GASTROINTESTINAL: Bowel sounds normal. Soft, non-tender, no masses. No hepatomegaly, no splenomegaly. MUSCULOSKELETAL: Grossly normal range of motion. EXTREMITIES: Warm, well perfused. 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 Risks, benefits, and alternatives were discussed with the patient. She is understanding and agreeable with the plan. Blanche Leo MD documented in this encounter Procedure Notes * Blanche Leo MD - 03/01/2020 8:15 AM CDTAssociated Order(s): EGD ENDOSCOPY LAB Patient Name: Rowena Quesada Procedure Date: 03/01/2020 8:15 AM Date of : 1965 Admit Type: Outpatient Age: 54 Gender: Female Attending MD: Blanche Leo M.D. Room: [facility] ENDOSCOPY ROOM 02 Note Status: Finalized Procedure: Upper GI endoscopy Indications: Heartburn, Preoperative assessment for bariatric surgery to treat morbid obesity Providers: Blanche Leo M.D. Referring MD: Medicines: Propofol per Anesthesia Complications: No immediate complications. Estimated Blood Loss: Estimated blood loss: none. Procedure: Pre-Anesthesia Assessment: - Prior to the procedure, a History and Physical was performed, and patient medications and allergies were reviewed. The patient is competent. The risks and benefits of the procedure and the sedation options and risks were discussed with the patient. All questions were answered and informed consent was obtained. Patient identification and proposed procedure were verified by the physician, the nurse and the nutrition teacher in the endoscopy suite. Mental Status Examination: alert and oriented. Airway Examination: normal oropharyngeal airway and neck mobility. Respiratory Examination: clear to auscultation. CV Examination: normal. Prophylactic Antibiotics: The patient does not require prophylactic antibiotics. Prior Anticoagulants: The patient has taken no previous anticoagulant or antiplatelet agents. ASA Grade Assessment: III - A patient with severe systemic disease. After reviewing the risks and benefits, the patient was deemed in satisfactory condition to undergo the procedure. The anesthesia plan was to use moderate sedation / analgesia (conscious sedation). Immediately prior to administration of medications, the patient was re-assessed for adequacy to receive sedatives. The heart rate, respiratory rate, oxygen saturations, blood pressure, adequacy of pulmonary ventilation, and response to care were monitored throughout the procedure. The physical status of the patient was re-assessed after the procedure. After obtaining informed consent, the endoscope was passed under direct vision. Throughout the procedure, the patient's blood pressure, pulse, and oxygen saturations were monitored continuously. The [id number] was introduced through the mouth, and advanced to the second part of duodenum. The upper GI endoscopy was accomplished without difficulty. The patient tolerated the procedure well. Findings: The oropharynx was normal. The Z-line was irregular and was found 40 cm from the incisors. The examined esophagus was normal. Scattered mild inflammation characterized by congestion (edema) and erosions was found in the entire examined stomach. Biopsies were taken with a cold forceps for histology. There was a sliding hiatal hernia. The examined duodenum was normal. Impression: - Normal oropharynx. - Normal esophagus. - Gastritis. Biopsied. - Z-line irregular, 40 cm from the incisors. - Normal examined duodenum. Recommendation: - Await pathology results. - Discharge patient to home (ambulatory). - Written discharge instructions were provided to the patient. Attending Participation: I personally performed the entire procedure. Electronically Signed by Kwabena Rutledge Blanche Leo M.D. 03/01/2020 8:56:34 AM Number of Addenda: 0 Note Initiated On: 03/01/2020 8:15 AM documented in this encounter Miscellaneous Notes * Pre-Procedure Instructions - Priti Whitney RN - 02/29/2020 2:22 PM CDT Typically for this procedure we say do not eat or drink after midnight, but please follow any instruction the office has given you. Come to [facility] ER entrance. There is free custom protection officer parking at this entrance or there is parking in frontof the building. As you enter immediately to your right will be an information desk, let them know you are here for a procedure. Once on the elevator press button for Procedure level or LL . That will take you down one level to registration. Once registered you will have a seat and one of the endoscopy nurses willcome to get you ready for your procedure. For your safety all staff will be screened and wearing a mask. Dress comfortably. Leave any valuable at home, specifically jaffe or jewelry. For your safety due to the anesthesia you won't be able to drive. Please no form of public transportation or medical transport by yourself will be allowed. For your safety and the safety of others per [facility] guidelines you are allowed one person to accompanyyou. You and this person will be screened for COVID-19 exposure, symptoms, fever. You and this person will be required to wear a mask at all times, if you do not have one, one will be provided for you. This person may wait for you in car if they choose. They may also wait for you in waiting room or cafe where chairs are spaced for distancing and are cleaned between use. Thank you in advance for your patience and understanding. documented in this encounter Plan of Treatment Not on file documented as of this encounter Procedures Procedure Name Priority Date/Time Associated Diagnosis Comments SURGICAL PATHOLOGY Routine 03/01/2020 8:51 AM CDT Morbid obesity due to excess calories (CMS/HCC) ESOPHAGOGASTRODUODENOSCOPY BIOPSY 03/01/2020 8:40 AM CDT Morbid obesity due to excess calories (CMS/HCC) POCT HCG, URINE Routine 03/01/2020 8:34 AM CDT EGD 03/01/2020 8:15 AM CDT documented in this encounter Results * Surgical pathology (03/01/2020 8:51 AM CDT) Tissue (Gastric/Stomach biopsy) 03/01/2020 8:51 AM CDT Narrative PATHOLOGY [facility] - 03/04/2020 11:33 AM CDT EPIC results best viewed via link to PDF [facility] [place] [address] SURGICAL PATHOLOGY REPORT FINAL Patient Name: ?? ROWENA QUESADA Gender: ??F : ??1965 (Age: 54) Address: ??[address] [place] [address] [place], [place] ??[address] Hospital #: ??[id number] Taken:03/01/2020 Received:03/01/2020 Reported: 03/04/2020 Patient Type: WC SDS Client ?[facility] Service: Surgery Location: [facility] Physician(s): ??MD Dr Baldomero Villeda Diagnosis: A. ??Stomach, biopsy ? - Normal oxyntic mucosa - No Helicobacter pylori organisms are identified ? kxb/03/04/2020 11:32 By this signature, I attest that the above diagnosis is based upon my personal examination of the slides(and/or other material indicated in the diagnosis). Brandy Ho MD Report Electronically Reviewed and Signed Out By ??Brandy Ho MD 03/04/2020 11:33:13 Microscopic Description and Comment: Microscopic examination substantiates the above cited diagnosis. Microscopic slide review and interpretation for this case was performed at [facility], Department of Surgical Pathology, [address] [facility] [address], [id number], ??[place], [place] ??[address] ?? CLIA # [id number] Deloris Brady M.D., PhD History: The patient is a 54-year-old woman with morbid obesity due to excessive calories. ??Operative procedure: EGD. Specimen(s) Received: A: Bx stomach Gross Description: Specimen is received one formalin filled container labeled with the patient's name and biopsy stomach. ??It holds a single irregular polanco soft tissue fragment measuring 1.0 x 0.3 x 0.1 cm. ??Labeled A1. ??Jar 0. cnewho/03/01/2020 13:22 PA(s): ROMA Phillip, CT (ASCP) By this signature, I attest that the above diagnosis is based upon my personal examination of the slides(and/or other material). Addenda/Procedures The performance characteristics of some immunohistochemical stains, fluorescence in-situ hybridization tests and immunophenotyping by flow cytometry cited in this report (if any) were determined by the Surgical Pathology Department at [facility] as part of an ongoing director quality systems program and in compliance with [...] determined by the Surgical Pathology Department of [facility]. ??It has not been cleared or approved by the U. S. Food and Drug Administration. IMAGES AND SCANNED DOCUMENTS, IF INCLUDED, ONLY VIEWABLE IN PDF VERSION OF REPORT us Blanche Leo MD LAB PATHOLOGY ORDERABLE S Final Result PATHOLOGY [facility] [phone] * POCT hCG, urine (03/01/2020 8:34 AM CDT) HCG, ur, POC Negative Lot Number [id number] QC Backgroud Clear Acceptable QC Control Line Acceptable Urine 03/01/2020 8:34 AM CDT us Blanche Leo MD POINT OF CARE TEST ORDE RABLES Final Result * EGD (03/01/2020 8:15 AM CDT) Anatomical Region Laterality Modality Other Narrative Procedure Note Blanche Leo MD - 03/01/2020 8:15 AM CDT ENDOSCOPY LAB Patient Name: Rowena Quesada Procedure Date: 03/01/2020 8:15 AM Date of : 1965 Admit Type: Outpatient Age: 54 Gender: Female Attending MD: Blanche Leo M.D. Room: [facility] ENDOSCOPY ROOM 02 Note Status: Finalized Procedure: Upper GI endoscopy Indications: Heartburn, Preoperative assessment for bariatricsurgery to treat morbid obesity Providers: Blanche Leo M.D. Referring MD: Medicines: Propofol per Anesthesia Complications: No immediate complications. Estimated Blood Loss: Estimated blood loss: none. Procedure: Pre-Anesthesia Assessment: - Prior to the procedure, a History and Physical was performed, and patient medications and allergies were reviewed. The patient is competent. The risks andbenefits of the procedure and the sedation options and riskswere discussed with the patient. All questions were answered and informed consent was obtained. Patientidentification and proposed procedure were verified by the physician,the nurse and the nutrition teacher in the endoscopy suite.Mental Status Examination: alert and oriented. Airway Examination: normal oropharyngeal airway and neck mobility. Respiratory Examination: clear toauscultation. CV Examination: normal. Prophylactic Antibiotics: The patient does not require prophylactic antibiotics.Prior Anticoagulants: The patient has taken no previous anticoagulant or antiplatelet agents. ASA Grade Assessment: III - A patient with severe systemicdisease. After reviewing the risks and benefits, the patient was deemed in satisfactory condition to undergo theprocedure. The anesthesia plan was to use moderate sedation / analgesia (conscious sedation). Immediately prior to administration of medications, the patient wasre-assessed for adequacy to receive sedatives. The heart rate, respiratory rate, oxygen saturations, blood pressure, adequacy of pulmonary ventilation, and response to care were monitored throughout the procedure. The physical status of the patient was re-assessed after theprocedure. After obtaining informed consent, the endoscope waspassed under direct vision. Throughout the procedure, the patient's blood pressure, pulse, and oxygen saturations were monitored continuously. The [id number] was introduced through the mouth, and advanced to thesecond part of duodenum. The upper GI endoscopy wasaccomplished without difficulty. The patient tolerated the procedure well. Findings: The oropharynx was normal. The Z-line was irregular and was found 40 cm from the incisors. The examined esophagus was normal. Scattered mild inflammation characterized by congestion (edema) and erosions was found in the entire examined stomach. Biopsies weretaken with a cold forceps for histology. There was a sliding hiatal hernia. The examined duodenum was normal. Impression: - Normal oropharynx. - Normal esophagus. - Gastritis. Biopsied. - Z-line irregular, 40 cm from the incisors. - Normal examined duodenum. Recommendation: - Await pathology results. - Discharge patient to home (ambulatory). - Written discharge instructions were provided to the patient. Attending Participation: I personally performed the entire procedure. Electronically Signed by Kwabena Rutledge Blanche Leo M.D. 03/01/2020 8:56:34 AM Number of Addenda: 0 Note Initiated On: 03/01/2020 8:15 AM us Blanche Leo MD ENDOSCOPY PROCEDURES Fi nal Result documented in this encounter [...] infusion - ADS Override Pull Starting on Wed03/01/20 at 0810, For 1 dose, Created by cabinet override sodium chloride 0.9% infusion 30 mL/hr, intravenous, Continuous, Starting on Wed03/01/20 at 0900, Pre-Op New Bag 03/01/2020 8:21 AM CDT 30 mL/hr 30 mL/hr documented in this encounter Discontinued Medications Medication Sig Discontinue Reason Start Date End Da te diltiaZEM (CARDIZEM) 120 mg tablet 120 mg daily Alternate therapy 02/29/2020 ibuprofen (ADVIL,MOTRIN) 800 mg tablet Take 800 mg by mouth every 6 (six) hours as needed Alternate therapy 02/29/2020 omega-3s/dha/epa/fish oil/D3 (VITAMIN-D + OMEGA-3 ORAL) Vitamin D 1 tab qd Alternate therapy 02/29/2020 furosemide (LASIX) 20 mg tablet Take 20 mg by mouth daily Alternate therapy 02/29/2020 documented as of this encounter Historical Medications * This list may reflect changes made after this encounter. diltiaZEM (CARDIZEM) 120 mg tabletIndications :Supraventricular Arrhythmias Take 120 mg by mouth nightly Can take up to two times per day 07/09/2020 meloxicam (MOBIC) 7.5 mg tablet 02/25/2020 07/09/2020 traMADoL (ULTRAM) 50 mg tablet Take 1 tablet (50 mg total) by mouth 2 (two) times a day as needed for pain 02/13/2020 02/08/2023 added in this encounter Active and Recently Administered Medications Times are shown in CDT. Continuous Medication Order 02/28/2020 02/29/2020 03/01/2020 sodium chloride 0.9% infusion 30 mL/hr, intravenous, Continuous, Starting on Wed03/01/20 at 0900, Pre-Op 0821 (New Bag - Prov ider: Lorna Galarza RN)0854 (Anesthesia Volume Adjustment - Provider: Brandy Marx CRNA)0912 (Stopped - Provider: Araseli Nina RN) documented in this encounter Orders Medications Ordered That Joaquin ht Not Have Been Administered Count Last Ordered Date First Ordered Date sodium chloride 0.9% flush 0.5-20 mL 1 01/2020 documented in this encounter Care Teams Non Garment Sewing Machine Operator Relationship Specialty Start Date End Date Baldomero oDminguez MD PCP - General 01/07/17 Jaciel Melo MD Optical Design Engineer Cardiovascular Disease 04/12/19 2 documented as of this encounter
--- OUTSIDE RECORDS SUMMARY | 2024-07-11 07:41 | XMS_ITS | Encounter Summary ---
Author Organization [facility] Healthcare Address [address] [place] [address] Care Team Providers Care Painter Drum Name Role Phone Baldomero Dominguez MD Primary Care Provider [phone] Jaciel Melo MD Unavailable [phone] Encounter Details Date Type Department Care Team (Late st Contact Info) Description 03/01/2020 8:39 AM CDT Anesthesia Event [facility] Endoscopy [address] [place] [address] Adelfo Guillen MD [address] [place] [address] Anesthesia Record Procedure Summary Procedure Name Responsible Anesthesiologist Anesthesia Start Time Anesthesia Stop Time ESOPHAGOGASTRODUODENOSCOPY BIOPSY Adelfo Guillen MD 03/01/20 0839 03/01/20 0858 Events Date Time Event Comment 03/01/2020 0814 0816 AN Equip Check 0839 An Start 0839 An Start Data 0840 In Room 0841 Start Supplemental O2 0844 Patient Positioned Laterally 0844 An Induction The patient was reevaluated immediately before moderate or deep sedation use and before anesthesia induction. 0844 Anesthesia Ready 0845 Proc Start 0852 Proc Fin 0854 an stop data 0857 Handoff to RN I completed my handoff [...] Patient disposition at the time of handoff: No value filed. 0858 Out of Room 0858 An Stop Meds Name Total propofol 200 mg lidocaine 2 % 7 mL sodium chloride 0.9% infusion 200 mL * Agents Name O2 * Blood No blood administrations on file. 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 Gender Identity Not on file Sexual Orientation Not on file documented as of this encounter OR Notes * Anesthesia Postprocedure Evaluation - Adelfo Guillen MD - 03/01/2020 9:17 AM CDT Patient: Rowena Quesada Procedure Summary Date: 03/01/20 Room / Location: [facility] ENDOSCOPY ROOM / [facility] Anesthesia Start: 838 Anesthesia Stop: 857 Procedure: ESOPHAGOGASTRODUODENOSCOPY BIOPSY Diagnosis: Morbid obesity due to excess calories (CMS/HCC) (Morbid obesity due to excess calories (CMS/HCC) [E66.01]) Provider: Blanche Leo MD Responsible Provider: Adelfo Guillen MD Anesthesia Type: general ASA Status: 3 Anesthesia Type: general Last vitals BP 137/74 Pulse 73 Temp 36.5 ??C (97.7 ??F) (Tympanic) Resp 21 SpO2 99% Anesthesia Post Evaluation Patient location during evaluation: PACU Patient participation: complete - patient participated Level of consciousness: fully awake Pain score: 0 Pain management: adequate Airway patency: adequate Evidence of recall: no Anesthetic complications: no Cardiovascular status: hemodynamically stable and acceptable Respiratory status: acceptable and room air Hydration status: acceptable Pt is: normothermic Nausea/Vomiting status: none * Anesthesia Preprocedure Evaluation - Adelfo Guillen MD - 03/01/2020 8:20 AM CDT Images from the original note were not included. Anesthesia Evaluation Rowena Quesada is a 54 y.o. female Procedure(s): ESOPHAGOGASTRODUODENOSCOPY Pre-Op Diagnosis Codes: * Morbid obesity due to excess calories (CMS/HCC) [E66.01] Patient Active Problem List Diagnosis ??? Arthralgia of hip ??? Morbid obesity (CMS/HCC) ??? Crohn's disease (CMS/HCC) ??? Paroxysmal supraventricular tachycardia (CMS/HCC) ??? Morbid obesity due to excess calories (CMS/HCC) Past Medical History: Diagnosis Date ??? Anemia ??? Arthritis ??? Heart disease ??? Hypertension ??? Irritable bowel syndrome ??? Joint pain ??? Morbid obesity (CMS/HCC) Past Surgical History: Procedure Laterality Date ??? SECTION ??? CHOLECYSTECTOMY ??? NOSE SURGERY OB History No obstetric history on file. No Known Allergies Taking? Last Dose Start Date End Date Provider albuterol HFA (ProAir HFA) 90 mcg/actuation inhaler -- -- Historical Provider, ergocalciferol (VITAMIN D) 50,000 unit capsule -- -- Historical Provider, iron 18 mg tablet -- -- Historical Provider, meloxicam (MOBIC) 7.5 mg tablet 02/25/20 -- Historical Provider, traMADoL (ULTRAM) 50 mg tablet 02/13/20 -- Historical Provider, Current Facility-Administered Medications: ??? sodium chloride 0.9% 0.9% infusion - ADS Override Pull, , , ??? sodium chloride 0.9% flush 0.5-20 mL, [...] malignant neoplasm - (Added by TW Conv) Vitals: 03/01/20 0810 Temp: 36.9 ??C (98.4 ??F) PT: No results found for requested labs [...] Attestation: This PAT evaluation Airway Exam: Mallampati: III Cervical ROM: FROM Cardiovascular Exam: Rate: regular Rhythm: regular Pulmonary Exam: LCTA, bilat Anesthesia Plan ASA 3 My patient is approved for the Anesthesia Controlled Medication protocol when under care of a SALES OFFICER Planned anesthesia: General Informed Consent: Anesthesia plan and risks discussed with patient. Plan and Consent Comments: Pt stopped her diltiazem Consent and Attending signature: I and/or my [...] MAR Action Action Date Dose Rate Site lidocaine (XYLOCAINE) 20 mg/mL (2 %) injection intravenous, As needed, Starting on Wed03/01/20 at 0844, Anesthesia Intra-op, Indications: Administration of Local AnesthesiaIndications:Administrati on of Local Anesthesia Given 03/01/2020 8:44 AM CDT 7 mL propofoL (DIPRIVAN) IV intravenous, As needed, Starting on Wed03/01/20 at 0844, Anesthesia Intra-op Given 03/01/2020 8:48 AM CDT 100 mg Given 03/01/2020 8:44 AM CDT 100 mg documented in this encounter Care Teams Painter Drum Relationship Specialty Start Date End Date Baldomero Dominguez MD PCP - General 01/07/17 Jaciel Melo MD Office Supervisor Cardiovascular Disease 04/12/19 2 documented as of this encounter
--- OUTSIDE RECORDS SUMMARY | 2024-07-11 07:41 | XMS_ITS | Encounter Summary ---
Author Organization [facility] Healthcare Address [address] [place] [address] Care Team Providers Care Acetylene Torch Solderer Name Role Phone Baldomero Dominguez MD Primary Care Provider [phone] Jaciel Melo MD Unavailable [phone] Reason for Visit * Reason Comments Morbid Obesity Encounter Details Date Type Department Care Team (Latest Contact Info) Description 03/12/2020 9:00 AM CDT Clinical Support [facility] Diabetes and Nutrition [address] [address] Thierno Blanc MD [id number] [place] [address] Morbid obesity (CMS/HCC) (Primary Dx) Discharge Disposition: Discharge to home or self care Social History Tobacco Use Types Packs/Day Years Used Date Smoking Tobacco: Never Comments No Sex and Gender Information Value Date Recorded Sex Assigned at Not on file 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 Height 167.6 cm (5' 6 ) 03/12/2020 9:32 AM CDT Body Mass Index 46.68 03/12/2020 9:32 AM CDT documented in this encounter Patient Instructions * Patient Instructions* Kaykay Coelho - 03/12/2020 9:00 AM CDT Goals for this month: she set the following goals: (marked with an X) Increase physical activity x Eats 3 meals / day (try protein shake for breakfast versus skipping) x Continue to keep food records with My Fitness Pal aiming for 1500 calories Decrease fat intake Stop sugar and replace with sugar substitute Stop/limit regular soda and beverages with added sugar x Increase intake of fruit to 3 times per week x Include vegetables in diet daily documented in this encounter Discharge Disposition Disposition Code Departure Means Destination Discharge to home or self care documented in this encounter Progress Notes * Kaykay Coelho - 03/12/2020 9:00 AM CDT Rowena Groveham 1965 is a 54 y.o. female Referring Physician: Dr. Blanc / Berry Atkins NP 03/12/2020 Medically Supervised Weight Loss Visit Month 5 (Months 1 - 4 were done with PCP) This was a telemedicine visit with Rowena Martinez Dipak alone which took place via Real-time video connection ([employer], Zoom or similar). During the visit, I was located in my [facility] office and the patient was located in her home. Clinic was closed due to ID-. Only visits available to patients were telehealth visits. The option of participating in a telephone or videovisit during the COVID-19 public health emergency was explained to Ms. Quesada. Ms. Quesada has been informed that the visit may not be secure and acknowledged the information. After being given an opportunity to ask questions about and discuss this type of visit, Ms. Rowena Quesada consented to the telephone / video visit. Ms. Rowena Quesada understands that this service replaces an office visit and she may be billed and/or responsible for any applicable copayment. The session started at 0900 and ended at 0930 Total Minutes: 30 min Chief Complaint Patient presents with ??? Morbid Obesity Height: 167.6 cm (5' 6 ) Weight: 131.2 kg (289 lb 3.2 oz)(patient reports home scale this a.m.) Body mass index is 46.68 kg/m??. Weight change from previous visit: unknown (Month 1 - 4 were with PCP) Patient Active Problem List Diagnosis ??? Arthralgia [...] , Rfl: 24 hour diet recall: Breakfast: none Lunch: eaten out at [employer]: 4 pieces thin crust deluxe pizza with meat, cheese, mushrooms, onions, green pepper, 3 BBQ boneless chicken wings, water with no sugar flavor packet Dinner: Baked breaded chicken belinda on bun with lettuce and mayonnaise, water with no sugar flavorpacket Current Diet: Ms. Quesada states during the MSW months 1 - 4 with PCP, she had been using My [employer] to keep food records and PCP had recommended 1500 calorie level. She reports she is trying not to eat after 7:00 p.m. She has been avoiding beverages with added sugar. Occasionally drinks diet soda, but primary beverage is water. Diet history reveals that Ms. Quesada's diet can be high in fatand high in carbohydrate. She has been skipping breakfast due to c/o nausea in morning. Dairy intake is inadequate. Fruit intake is inadequate. Vegetable intake can be inconsistent but she has eatingmore regularly. Whole grain intake is inadequate. She eats out 2 - 3 x / week. Fast food intake isoccasional. Cooking - She is able to cook, baking more often and limiting fried foods. Grocery shopping - She reads food labels. Alcohol intake - occasional. Portion sizes - can be excessive at times, but she states she is eating less overall. Supplement use: Multivitamin - does not take. Calcium supplement - does not take. Vitamin D supplement - takes. Vitamin B 12 supplement - does not take. Takes 18 mg Iron per day. Current Diet: The Schuyler-St Jeor formula estimates her resting energy expenditure at 1943 calories. An activity factor of 1.3 estimates her daily calorie needs at 2525. A 1500-calorie level should result in approximately 2 # weight loss / week. Exercise: no regular exercise, limited due to torn meniscus and pain, she has been to physical therapy and has appointment scheduled with her orthopedic physician Behavioral and lifestyle modifications: Reviewed strategies to help promote weight loss including: decreasing sugar sweetened beverages, decreasing portion sizes, calorie density, increasing fruit and vegetable intake, limiting fat intake, deceasing fast food intake, keeping electronic food records, and increasing physical activity. She has demonstrated the following goals: (marked with an X) Month 1 - 4 were with PCP Increased physical activity Eats 3 meals / day (snacks optional) Decreased portions Decreased fat intake Stop sugar and replace with sugar substitute Stop/limit regular soda and beverages with added sugar Increase intake of fruit Increase intake of vegetables Read food labels Decrease fast food intake Keep food records Understanding of carbohydrates, fat and protein Goals for this month: she set the following goals: (marked with an X) Increase physical activity x Eats 3 meals / day (try protein shake for breakfast versus skipping) x Continue to keep food records with My Fitness Pal aiming for 1500 calories Decrease fat intake Stop sugar and replace with sugar substitute Stop/limit regular soda and beverages with added sugar x Increase intake of fruit to 3 times per week x Include vegetables in diet daily Eat more home prepared meals Decrease fast [...] obesity documented in this encounter Care Teams Acetylene Torch Solderer Relationship Specialty Start Date End Date Baldomero Dominguez MD PCP - General 01/07/17 Jaciel Melo MD Spiral Runner Cardiovascular Disease 04/12/19 2 documented as of this encounter
--- OUTSIDE RECORDS SUMMARY | 2024-07-11 07:41 | XMS_ITS | Encounter Summary ---
Author Organization [facility] Healthcare Address [address] [place] [address] Care Team Providers Care Draw Off Worker Name Role Phone Baldomero Dominguez MD Primary Care Provider [phone] Jaciel Melo MD Unavailable [phone] Reason for Visit * Reason Comments Morbid Obesity * Consultation (Routine) - Closed Specialty Diagnoses / Procedures Referred By Vianca montiel Referred To Contact Diabetes and Nutrition Services Diagnoses Morbid obesity (HCC) Essential hypertension Osteoarthritis Berry Atkins, SHIVANI Phone: tel: fax: [place] [address] [place] [address] Referral ID Status Reason Start Date Expiration Date V isits Requested Visits Authorized [id number] Closed Specialty Services Required 01/04/2020 07/15/2021 10 10 Encounter Details Date Type Department Care Team (Latest Contact Info) Description 03/06/2020 9:00 AM CDT Clinical Support [facility] Diabetes and Nutrition [address] [place] [address] Thierno Blanc MD [address] [facility] [phone] [place] [address] Kaykay Coelho, Berry Encarnacion, SHIVANI [address] [facility] [phone] [place] [address] Morbid obesity (CMS/HCC); Essential hypertension; Osteoarthritis Discharge Disposition: Discharge to home or self care Social History Tobacco Use Types Packs/Day Years Used Date Smoking Tobacco: Never Comments No Sex and Gender Information Value Date Recorded Sex Assigned at Not on file 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 Gender Identity Not on file Sexual Orientation Not on file documented as of this encounter Last Filed Vital Signs Vital Sign Reading Time Taken Comments Blood Pressure - - Pulse - - Temperature - - Respiratory Rate - - Oxygen Saturation - - Inhaled Oxygen Concentration - - Weight 128.8 kg (284 lb) 03/06/2020 3:0 3 PM CDT patient reported Height 167.6 cm (5' 6 ) 03/06/2020 3:03 PM CDT Body Mass Index 45.84 03/06/2020 3:03 PM CDT documented in this encounter Discharge Disposition Disposition Code Departure Means Destination Discharge to home or self care documented in this encounter Progress Notes * Kaykay Coelho - 03/06/2020 9:00 AM CDT Encounter Date: 03/06/2020 Referring Physician: Dr. Blanc / Milly Ms. Rowena Quesada is a 54 y.o. female : 1965 Ms. Quesada's visit is for nutrition evaluation for weight loss surgery This was a telemedicine visit with Rowena Quesada alone which took place via Real-time video connection ([employer], Zoom or similar). During the visit, I was located in my [facility] office and the patient was located in [...] session started at 0900 and ended at 1000 Total Minutes: 60 min Height: 167.6 cm (5' 6 ) Weight: 128.8 kg (284 lb)(patient reported) Body mass index is 45.84 kg/m??. Chief Complaint Patient presents with ??? Morbid Obesity Patient Active Problem List Diagnosis ??? Arthralgia [...] [id number] 24 (L) 05/25/2018 [id number] 297 01/17/2020 Ms. Quesada reveals that she was not overweight as a child. She weighed 120 lb at age 20. She hit 200 # in her 30's. She states her weight continued to increase over the past 15 years. She has tried to lose weight in the past with [place] diet, Taylor's diet, and low calorie diet but was unable to sustain the weight she lost. Her lowest adult weight was 120#. Her highest weight was 285 #. Ms. Quesada's current Weight: 128.8 kg (284 lb)(patient reported). Diet history reveals that Ms. Colemans diet is high in fat and high in carbohydrate. She skips meals. Dairy intake is inadequate. She does not appear to be lactose intolerant. Fruit intake is inadequate. Vegetable intake is inadequate. Whole grain intake is inadequate. She eats out 2 - 3 x / week.Fast food intake is occasional. Dentition - she does not have problems chewing. Menu planning - tries to do some planning in advance. Cooking - She is able to cook. Grocery shopping - She reads food labels. Alcohol intake - occasional. Financial resources do not limit food choices. Portion sizes can be excessive. Supplement use: Multivitamin - does not take. Calcium supplement - does not take. Vitamin D supplement - takes. Vitamin B 12 supplement - does not take. Takes 18 mg Iron per day. Activity level - no regular exercise Nutrition and lifestyle changes necessitated by this procedure were discussed with Ms. Quesada. Shebelieves the changes will be manageable. Ms. Quesada has demonstrated commitment and compliance with past programs and it is highly unlikely, given her history of failed weight management attempts and sedentary lifestyle, that she will achieve and sustain a significant weight loss with a non-surgical approach. Bariatric nutrition educational materials given. Ms. Quesada is a good candidate for gastric surgery. There appears to be no nutritional contraindications at this time. She desires surgery to improve her health and increase her mobility. To help prepare for surgery we set the following goals (marked X ): x Practice chewing 15-20 times per bite x Stop/limit fried foods Slow down eating put silverware down between bites x Read food labels for protein, fat, sugar, and calories Eat mindfully Limit fat to 3-5 grams per serving x Start multivitamin (increase to 2 a day after surgery) x Read ingredient lists for sugar content x Start Calcium with D Go grocery shopping x Vitamin B 12 - 500 mcg to start after surgery Decrease portion size x Stop/limit diet soda and carbonated beverages x Select protein supplement before surgery Eat more home prepared meal x Increase intake of fruits and vegetables x Stop skipping meals After weight loss surgery go to support group Plan menu in advance x Call dietitian with any questions before or after surgery Kaykay Coelho MA, RDN, LD, CDE Diabetes Education and Nutritional Counseling documented in this encounter Plan of Treatment Not on file documented as of this encounter Visit Diagnoses Diagnosis Morbid obesity (HCC) Morbid obesity Essential hypertension Unspecified essential hypertension Osteoarthritis Osteoarthrosis, unspecified whether generalized or localized, unspecified site documented in this encounter Orders Outpatient Referral Count Last Ordered Date Fir st Ordered Date AMB REFERRAL TO NUTRITION SERVICES 1 2019 documented in this encounter Care Teams Draw Off Worker Relationship Specialty Start Date End Date Baldomero Dominguez MD PCP - General 01/07/17 Jaciel Melo MD Willower Cardiovascular Disease 04/12/19 2 documented as of this encounter
--- OUTSIDE RECORDS SUMMARY | 2024-07-11 07:42 | XMS_ITS | Encounter Summary ---
Author Organization [facility] Address [address] [place] [address] Phone Care Team Providers Care Cell Maker Name Role Phone Baldomero Dominguez MD Primary Care Provider [phone] Jaciel Melo MD Unavailable [phone] Michele León DPT Unavailable [phone] Reason for Visit * Reason Comments PT Initial Eval PT Discharge * Consultation (Routine) - Closed Specialty Diagnoses / Procedures Referred By Contac t Referred To Contact Physical Therapy Diagnoses Morbid obesity (HCC) Essential hypertension Osteoarthritis Berry Atkins, SHIVANI Phone: tel: fax: [facility] (All Locations) Referral ID Status Reason Start Date Expiration Date V isits Requested Visits Authorized [id number] Closed Specialty Services Required 01/04/2020 01/03/2021 24 24 Encounter Details Date Type Department Care Team (Late st Contact Info) Description 01/25/2020 9:00 AM CDT Therapy [facility] Physical Therapy [address] [facility] 1st Floor [address] [place] [address] Michele León DPT [address] [facility] [address] [place] [address] Morbid obesity (CMS/HCC) (Primary Dx); Essential hypertension; Osteoarthritis Social History Tobacco Use Types Packs/Day Years Used Date Smoking Tobacco: Never Comments Unknown Sex and Gender Information Value Date Recorded Sex Assigned at Not on file 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 female Berry Atkins NP [address] [place] [address] ICD-9-CM ICD-10-CM 1. Morbid obesity (CMS/HCC) 278.01 E66.01 Ambulatory referral order to Physical Therapy - 2. Essential hypertension 401.9 I10 Ambulatory referral order to Physical Therapy - 3. Osteoarthritis 715.90 M19.90 Ambulatory referral order to Physical Therapy - Date of Service: 01/25/2020 Subjective: Patient is seeking Sleeve surgery. Patient lives with family in a multiple story home with stairs to enter. The patient is currently is not working. 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 The patient currently exercises 1-2 days per week and includes aerobic. Available resources for exercise include gym access, equipment at home, weights at home and pool. Pain Does report joint pain. Pain is located in: low back and knee pain Pain rating (at rest): 0 Pain rating (with activity): 7 Functional Limitations Ambulation: independent Pain with household ambulation?: No Pain with community ambulation?: Yes Assistive device: No Bed mobility: independent Transfers: independent Dressing: independent Bathing/Showering: independent Shopping: independent Self-feeding: independent Housework: independent Toileting: independent Work limitations: none Recreational activities (familial activities, walking the park): independent Falls Patient reports falling due to tripping over something in the past 6 months. Objective Appearance/Obesity pattern: Android Range of motion: Gross ROM WFL Gross ROM Limited by excessive weight Gross Strength Upper Extremity:WFL Lower Extremity: WFL Balance Eyes Open (seconds) Eyes Closed (seconds) Feet together (narrow base) 10 10 Modified tandem stance 10 10 Single limb stance Right - 6 Left - 10 N/T Functional Activities 5-time Sit to Stand (18 chair): 12.5 secs Level of assist: independent RPE: 7/20 Floor to stand Right leg forward: unable Left leg forward: unable Vital Signs: At REST Post-Exercise 2 Minute Recovery SpO2 (%) HR (bpm) BP (mmHg) SpO2 (%) HR (bpm) BP (mmHg) SpO2 (%) HR (bpm) BP (mmHg) 99 68 142/89 98 84 136/78 79 149/88 Endurance 6 Minute Walk Test Assistive Device: none Laps (330 feet/lap): 3.75 Number of stops: 0 RPE: 7/20 Difficulty in Breathin/10 Treatment Provided: Pt educated in the following: Abdominal bracing Aerobic exercise prescription Balance & coordination exercise prescription Bariatric surgery exercise educational packet Education on benefits of exercise Flexibility exercise prescription Modification to exercise based on pain Monitoring HR and RPE Postoperative lifting precautions Postoperative physical therapy and exercise Strategies to prevent DVT Strengthening exercise prescription Assessment/Plan: Chief Complaint PT Initial Eval; PT Discharge Patient is a 54 y.o.-year-old female presenting to PT for a gastric sleeve pre- surgical evaluation.Patient's ability to perform at normal functional level was diminished due to torn meniscus in R knee. Per patient, she is currently undergoing physical therapy for knee pain. Demonstrates deficits in strength, ROM, endurance, functional mobility and balance. The patient is currently exercising. The patient benefited today from pre- and post-surgery exercise instruction and education to address the impairments listed above. Short Term Goals: 1) The patient will be independent with HEP 4-6x/week with appropriate vital signs, prior to surgery (2 months). 2) The patient will be able to verbalize prior to surgery an understanding of potential musculoskeletal complications following bariatric surgery (2 months). Retirement Goals: 1) Pt will maintain an exercise program post-surgically for maintenance of weight loss (6 months). 2) Pt will participate in >30 minutes of daily activity (12 months). 3) Pt will participate in >30 minutes of continuous activity 4-6x/week with appropriate vital signs (12 months). 4) Pt will report decrease in pain to 2/10 (12 months). 5) Pt will be independent with bed mobility, self care, bathing, transfers, wheelchair mobility, toileting (12 months). 6) Pt will be independent with ambulation with/without assistive device (12 months). Discharge Summary: Pt initiated physical therapy as part of Bariatric pre-surgical evaluation and treatment, intended for one time visit. Pt responds well to treatment of education and verbalizes understanding exerciseprescription instructions. Verbalizes understanding that physical therapy is available for musculoskeletal pain complaints. Pt reported no further questions regarding exercise. Pt is discharged from physical therapy. Total Treatment Time: 40 min Michele León DPT documented in this encounter Plan of Treatment Not on file documented as of this encounter Visit Diagnoses Diagnosis Morbid obesity (HCC)- Primary Morbid obesity Essential hypertension Unspecified essential hypertension Osteoarthritis Osteoarthrosis, unspecified whether generalized or localized, unspecified site documented in this encounter Orders Outpatient Referral Count Last Ordered Date st Ordered Date AMB REFERRAL ORDER TO PHYSICAL THERAPY 1 documented in this encounter Care Teams Cell Maker Relationship Specialty Start Date End Date Baldomero Dominguez MD PCP - General 01/07/17 Jaciel Melo MD Packing Room Inspector Cardiovascular Disease 04/12/19 2 Michele León DPT [id number] [place] [address] Physical Therapist Physical Therapy 01/25/20 01/25/20 documented as of this encounter
--- OUTSIDE RECORDS SUMMARY | 2024-07-11 07:42 | XMS_ITS | Encounter Summary ---
Author Organization [facility] Healthcare Address [address] [place] [address] Care Team Providers Care Inspector Subassemblies Name Role Phone Baldomero Dominguez MD Primary Care Provider Jaciel Melo MD Unavailable [phone] Encounter Details Date Type Department Care Team (Late st Contact Info) Description 02/25/2020 Orders Only [facility] HealthCare/ Physicians [address] [place], [place] [id number] Blanche Leo MD [address] [place], [place] [id number] Pre-op testing (Primary Dx) Social History Tobacco Use Types Packs/Day Years Used Date Smoking Tobacco: Never Comments Unknown Sex and Gender Information Value Date Recorded Sex Assigned at Not on file 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 Gender Identity Not on file Sexual Orientation Not on file documented as of this encounter Progress Notes * Jasbir Jessica MA - 02/25/2020 2:56 PM CDT Pre op covid testing at [facility] documented in this encounter Miscellaneous Notes * Addendum Note - Kamala Mcguire - 02/25/2020 2:56 PM CDTAddended by: KAMALA MCGUIRE on: 02/27/2020 05:27 PM Modules accepted: Orders documented in this encounter Plan of Treatment Not on file documented as of this encounter Results * COVID-19 Coronavirus RNA Nasopharyngeal (02/27/2020 11:03 AM CDT) COVID-19 RNA Not Detected [facility] Comment: Interpretive Data Testing performed at [facility] Molecular Infectious Disease Laboratory. The [...] Interpretive Data was last revised on 2019. Nasopharyngeal 02/27/2020 11 :03 AM CDT 02/27/2020 8:40 PM CDT Narrative [facility] - 02/28/2020 2:43 AM CDT Is the patient experiencing any symptoms consistent with COVID (eg. Fever, cough, shortness of breath)?->No What is the reason for testing?->Screening prior to scheduled (>12 hr) surgery or procedure us Blanche Leo MD LAB MICROBIOLOGY - GENE RAL ORDERABLES Final Result [facility] Department of Laboratories [place], [place] [id number] documented in this encounter Visit Diagnoses Diagnosis Pre-op testing- Primary Unspecified pre-operative examination Pre-op testing Unspecified pre-operative examination documented in this encounter Care Teams Inspector Subassemblies Relationship Specialty Start Date End Date Baldomero Dominguez MD PCP - General 01/07/17 Jaciel Melo MD Hatch Supervisor Cardiovascular Disease 04/12/19 2 documented as of this encounter
--- OUTSIDE RECORDS SUMMARY | 2024-07-11 07:42 | XMS_ITS | Encounter Summary ---
Author Organization [facility] Healthcare Address [address] [place] [address] Care Team Providers Care Ratings Analyst Name Role Phone Baldomero Dominguez MD Primary Care Provider [phone] Jaciel Melo MD Unavailable Encounter Details Date Type Department Care Team (Late st Contact Info) Description 03/01/2020 7:41 AM CDT - 03/01/2020 9:27 AM CDT Hospital Encounter [facility] Endoscopy [address] [place] [address] Blanche Leo MD [address] [place], [place] [id number] Morbid obesity due to excess calories (CMS/HCC) Discharge Disposition: Discharge to home or self care Social History Tobacco Use Types Packs/Day Years Used Date Smoking Tobacco: Never Comments No Sex and Gender Information Value Date Recorded Sex Assigned at Not on file 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 Gender Identity Not on file Sexual Orientation Not on file documented as of this encounter Last Filed Vital Signs Vital Sign Reading Time Taken Comments Blood Pressure 137/74 03/01/2020 9:10 AM CDT Pulse 73 03/01/2020 9:10 AM CDT Temperature 36.5 ??C (97.7 ??F) 03/01/2020 9:00 AM CD T Respiratory Rate 21 03/01/2020 9:10 AM CDT Oxygen Saturation 99% 03/01/2020 9:10 AM CDT Inhaled Oxygen Concentration - - Weight 128.8 kg (284 lb) 03/01/2020 8:10 AM CDT Height 167.6 cm (5' 6 ) 03/01/2020 8:10 AM CDT Body Mass Index 45.84 03/01/2020 8:10 AM CDT documented in this encounter Discharge Diagnoses Diagnosis Heartburn - HEARTBURN Morbid (severe) obesity due to excess calories (HCC) - MORBID (SEVERE) OBESITY DUE TO EXCESS CALORIES Body mass index (BMI) 45.0-49.9, adult - BODY MASS INDEX (BMI) 45.0-49.9, ADULT Essential (primary) hypertension - ESSENTIAL (PRIMARY) HYPERTENSION Unspecified essential hypertension Irritable bowel syndrome without diarrhea - IRRITABLE BOWEL SYNDROME WITHOUT DIARRHEA Unspecified osteoarthritis, unspecified site - UNSPECIFIED OSTEOARTHRITIS, UNSPECIFIED SITE residential (current) use of non-steroidal anti-inflammatories (nsaid) - MIXED ANIMAL VETERINARIAN (CURRENT) USE OF NON-STEROIDAL ANTI-INFLAMMATORIES (NSAID) 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 Room: [facility] ENDOSCOPY ROOM 02 Note Status: Finalized Procedure: [...] by the physician, the nurse and the marine pipefitter in the endoscopy suite. Mental Status Examination: [...] and oxygen saturations were monitored continuously. The [id number] was introduced through the mouth, and advanced [...] the office has given you. Come to [facility] ER entrance. There is free assembler type bar and segment parking at this entrance or there is [...] safety and the safety of others per [facility] guidelines you are allowed one person [...] biopsy) 03/01/2020 8:51 AM CDT Narrative PATHOLOGY [facility] - 03/04/2020 11:33 AM CDT EPIC results best viewed via link to PDF [facility] [place] [address] SURGICAL PATHOLOGY REPORT FINAL Patient Name: ?? ROWENA QUESADA Gender: ??F : ??1965 (Age: 54) Address: [address] [place], [place] ??[address] Hospital #: ??[id number] Taken:03/01/2020 Received:03/01/2020 Reported: 03/04/2020 Patient Type: WC SDS Client ?[facility] Service: Surgery Location: [facility] Physician(s): ??MD Dr Baldomero Villeda Diagnosis: A. [...] interpretation for this case was performed at [facility], Department of Surgical Pathology, [address] [facility], [place] [id number], ??[facility], [place] ??[address] ?? CLIA # [id number] Deloris Brady M.D., PhD History: The patient [...] ??Labeled A1. ??Jar 0. cnewho/03/01/2020 13:22 PA(s): Felicia Power, ROMA, CT (ASCP) By this signature, I attest that the above diagnosis is based upon my personal examination of the slides(and/or other material). Addenda/Procedures The performance characteristics of some immunohistochemical stains, fluorescence in-situ hybridization tests and immunophenotyping by flow cytometry cited in this report (if any) were determined by the Surgical Pathology Department at [facility] as part of an ongoing type disk quality control supervisor program and in compliance with federally mandated [...] determined by the Surgical Pathology Department of [facility]. ??It has not been cleared or approved by the U. S. Food and Drug Administration. IMAGES AND SCANNED DOCUMENTS, IF INCLUDED, ONLY VIEWABLE IN PDF VERSION OF REPORT Blanche Leo MD LAB PATHOLOGY ORDERABLE S Final Result Performing Organization Address City/State/[facility] Co de Phone Number PATHOLOGY [facility] [phone] * POCT hCG, urine (03/01/2020 8:34 AM CDT) HCG, ur, POC Negative Lot Number [id number] QC Backgroud Clear Acceptable QC Control Line Acceptable Urine 03/01/2020 8:34 AM CDT Blanche Leo MD POINT OF CARE TEST ORDE RABLES Final Result * EGD (03/01/2020 8:15 AM CDT) Anatomical Region Laterality Modality Other Narrative Procedure Note Blanche Leo MD - 03/01/2020 8:15 AM CDT ENDOSCOPY LAB Patient Name: Rowena Quesada Procedure Date: 03/01/2020 8:15 AM Date of : 1965 Admit Type: Outpatient Age: 54 Gender: Female Attending MD: Blanche Leo M.D. Room: [facility] ENDOSCOPY ROOM 02 Note Status: Finalized Procedure: [...] verified by the physician,the nurse and the marine pipefitter in the endoscopy suite.Mental Status Examination: alert [...] and oxygen saturations were monitored continuously. The [id number] was introduced through the mouth, and advanced [...] 0 Note Initiated On: 03/01/2020 8:15 AM Blanche Leo MD ENDOSCOPY PROCEDURES Fi nal [...] Brandy Marx CRNA)[id number] (Stopped - Provider: Araseli Nina, JENNIFER) documented in this encounter Orders Medications Ordered That Joaquin ht Not Have Been Administered Count Last Ordered Date First Ordered Date sodium chloride 0.9% flush 0.5-20 mL 1 01/2020 documented in this encounter Care Teams Ratings Analyst Relationship Specialty Start Date End Date Baldomero Dominguez MD PCP - General 01/07/17 Jaciel Melo MD Palliative Care Specialist Cardiovascular Disease 04/12/19 2 documented as of this encounter
--- OUTSIDE RECORDS SUMMARY | 2024-07-11 07:42 | XMS_ITS | Encounter Summary ---
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 The [...] CDT 02/27/2020 8:40 PM CDT Narrative [facility] - 02/28/2020 2:43 AM CDT Is the patient experiencing any symptoms consistent with COVID (eg. Fever, cough, shortness of breath)?->No What is the reason for testing?->Screening prior to scheduled (>12 hr) surgery or procedure us Blanche Leo MD LAB MICROBIOLOGY - GENE [facility] ORDERABLES Final Result [facility] One [facility] [place] [address] documented in this encounter Visit Diagnoses Diagnosis Pre-op testing Unspecified pre-operative examination documented in this encounter Care Teams Media Coordinator Relationship Specialty Start Date End Date Baldomero Dominguez MD PCP - General 01/07/17 Jaciel Melo MD Flight Engineer Performance Qualified Cardiovascular Disease 04/12/19 2 documented as of this encounter
--- OUTSIDE RECORDS SUMMARY | 2024-07-11 07:42 | XMS_ITS | Encounter Summary ---
Author Organization [facility] Address [address] [place] [address] Phone Care Team Providers Care Accounts Receivable Assistant Name Role Phone Baldomero Dominguez MD Primary Care Provider [phone] Jaciel Melo MD Unavailable [phone] Encounter Details Date Type Department Care Team (Late st Contact Info) Description 02/23/2020 10:15 AM CDT Telemedicine [facility] Pain Management [address] [facility] [address] 14th [place] [address] [place] [address] Gertrudis Garcia, PhD [address] [place] [address] Morbid obesity (CMS/HCC) (Primary Dx); History of depression Social History Tobacco Use Types Packs/Day Years Used Date Smoking Tobacco: Never Comments Unknown Sex and Gender Information Value Date Recorded Sex Assigned at Not on file Legal Sex 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 During the visit, I was located at home and the patient was located at home. The patient visit started at 10:17am and ended at 10:47am. The patient has been informed that the visit may not be secure and acknowledged the information. I have explained the option of participating in a telephone or video visit during the COVID-19 public health emergency to the patient. After being given an opportunity to ask questions about and discuss this type of visit, the patient verbally consented to proceeding with the telephone/video visit.The patient understands that this service replaces an office visit and they may be billed and/or responsible for any applicable copayments. Gertrudis Garcia, PhD Reasons for seeking treatment Rowena Quesada is seeking weight loss surgery in order to improve her health and quality of life.She has been diagnosed with Crohn's disease, hypertension and arthritis. She also has problems withchronic pain in her lower back and knees that is exacerbated by her morbid obesity. In addition, weight loss with the assistance of surgery has been recommended to her by her primary physician. Rowena Quesada is generally hopeful that weight loss with the assistance of surgery will help to increase her healthy life expectancy. Weight history Rowena Quesada reported that she was in a generally healthy weight range until around 27 years ofage. she began to gain excess weight at around 27 years of age due to having twins. When she was 42, she began gaining more weight; she experienced a lot of stress with her son's mental health. Rowena Quesada has made several attempts to lose weight, through Weight Watchers, the Atkins diet, a low carbohydrate diet, Maya Abhishek, SlimFast and dieting on her own along with exercise. She was able to lose as much as 50 pounds with her most successful attempt, although none of her previous weight loss attempts has resulted in sustained success. Current eating and exercise habits Rowena Quesada currently eats 2 meals in a typical day along with 0 snacks. She stated that many of her meals are large in portion size. She acknowledged that she is particularly drawn to sweets. She has observed that she tends to eat more when she is under stress. Rowena Quesada does not currently get regular exercise. Expectations for surgery Rowena Quesada has no unusual concerns about undergoing weight loss surgery. She has yet to meet with the warehouse hand to learn more about the dietary and lifestyle changes that she will need to make in order to optimize her chances for weight loss success. In addition, she recently completed herfourth visit of a 4-month medically- supervised weight loss program as stimulated by her insurance plan prior to weight loss surgery. Psychiatric history Diagnoses and relevant symptoms: History of depression Psychiatrist: None Psychotropic medications: None currently, but has taken various medications in the past Psychotherapy or counseling: None Hospitalizations: Never Suicide attempts: Denied Substance use history Tobacco: Nonsmoker Alcohol: Two glasses of wine per month Illicit drugs: none Medical history Rowena Quesada has been diagnosed with Crohn's disease, hypertension, arthritis and morbid obesity. 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 Members of the household: , female twin daughter Sources of assistance and support: [employer] Mental status exam APPEARANCE Level of consciousness: alert Attire: neat Cleanliness and grooming: clean and well-groomed Eye contact: good ATTITUDE: cooperative ACTIVITY: relaxed and calm PAIN BEHAVIOR: None observed via video MOOD: Pretty good Type: euthymic and tearful Tearful related to the difficulty her weight has caused in her relationship and her life. AFFECT Appropriateness: appropriate Intensity: normal Mobility: mobile Range: full Reactivity: reactive SPEECH: regular rate and rhythm THOUGHT PROCESS: goal-directed, logical and sequential CONTENT OF THOUGHT: unremarkable COGNITION Orientation: alert and oriented x 3 Attention/Concentration: normal Recent memory: normal Remote memory: normal INSIGHT/JUDGMENT: good SUICIDALITY: Ideation: denied Plans: denied Intentions: denied Psychological testing Rowena Quesada completed the MMPI-2-RF and her results were compared to published norms for female weight loss surgery candidates. SYNOPSIS OF TEST RESULTS Rowena Quesada produced a valid and interpretable protocol. Her scores on the substantive scales are thus likely to provide an accurate portrayal of her psychological functioning. PROTOCOL VALIDITY Unscoreable Responses Rowena Quesada answered at least 90% of the items on all of the scales. Inconsistent Responding Scales in this category with elevated scores: CUONG-r. Over-Reporting Scales in this category with elevated scores: None of these scores were elevated. Under-Reporting Scales in this category with elevated scores: L-r. SUBSTANTIVE SCALES Higher-Order and Restructured Clinical (RC) Scales Scales in this category with elevated scores: None of these scores were elevated. Somatic/Cognitive and Internalizing Scales Scales in this category with elevated scores: Malaise. Externalizing, Interpersonal, and Interest Scales Scales in this category with elevated scores: None of these scores were elevated. Personality Psychopathology Five (PSY-5) Scales Scales in this category with elevated scores: None of these scores were elevated. Impressions Rowena Quesada is a 54 y.o. female who is undergoing psychological evaluation prior to being considered as a candidate for weight loss surgery. Favorable factors include: She has made several serious attempts to lose weight, some with significant success, but none with sustained success. She has ample family and social support for her decision to pursue weight loss surgery. Unfavorable factors include: She has a history of depression, although her symptoms are currently well- controlled with appropriate treatment. Recommendations Based on clinical interview and psychological testing, there are no clear psychological contraindications to weight loss surgery at the present time. She is welcome to follow up with me for support as needed. This patient's allergies, medications, and problem list were noted but not managed by me as a non-medical provider. documented in this encounter Plan of Treatment Not on file documented as of this encounter Visit Diagnoses Diagnosis Morbid obesity (HCC)- Primary Morbid obesity History of depression Personal history of other mental disorder documented in this encounter Care Teams Accounts Receivable Assistant Relationship Specialty Start Date End Date Baldomero Dominguez MD PCP - General 01/07/17 Jaciel Melo MD Transportation Economics Teacher Cardiovascular Disease 04/12/19 2 documented as of this encounter
--- OUTSIDE RECORDS SUMMARY | 2024-07-11 07:43 | XMS_ITS | Encounter Summary ---
Author Organization [facility] Address [address] [place] [address] Phone Care Team Providers Care Company Miner [employer]asting Name Role Phone Baldomero Dominguez MD Primary Care Provider [phone] Jaciel Melo MD Unavailable [phone] Encounter Details Date Type Department Care Team (Late st Contact Info) Description 01/24/2020 Telephone [facility] Physical Therapy [address] [place] [phone] Doe Williamson MS Social History Tobacco Use Types Packs/Day Years Used Date Smoking Tobacco: Never Comments Unknown Sex and Gender Information Value Date Recorded Sex Assigned at Not on file 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 Pt answered all questions no. Advised pt of visitor policy, directions, and masking requirement for visit amw 01/24/2020 documented in this encounter Plan of Treatment Not on file documented as of this encounter Visit Diagnoses Not on filedocumented in this encounter Care Teams Company Miner Blasting Relationship Specialty Start Date End Date Baldomero Dominguez MD PCP - General 01/07/17 Jaciel Melo MD Care Management Coordinator Cardiovascular Disease 04/12/19 2 documented as of this encounter
--- OUTSIDE RECORDS SUMMARY | 2024-07-11 07:43 | XMS_ITS | Encounter Summary ---
Author Organization [facility] Address [address] [place] [address] Phone Care Team Providers Care Linseed Oil Press Tender Name Role Phone Baldomero Dominguez MD Primary Care Provider [phone] Jaciel Melo MD Unavailable [phone] Reason for Referral * Consultation (Routine) - Closed Specialty Diagnoses / Procedures Referred By Vianca montiel Referred To Contact Diabetes and Nutrition Services Diagnoses Morbid obesity (HCC) Essential hypertension Osteoarthritis Berry Atkins NP Phone: tel: fax: [facility] [address] [place] [address] Referral ID Status Reason Start Date Expiration Date V isits Requested Visits Authorized [id number] Closed Specialty Services Required 01/04/2020 07/15/2021 10 10 Question Answer [id number] Initial / Annual Follow-up MNT Please select the performing region: [facility] [150] # of visits: 10 * Consultation (Routine) - Closed Specialty Diagnoses / Procedures Referred By Vianca montiel Referred To Contact Physical Therapy Diagnoses Morbid obesity (HCC) Essential hypertension Osteoarthritis Beryr Atkins NP Phone: tel: fax: [facility] (All Locations) Referral ID Status Reason Start Date Expiration Date V isits Requested Visits Authorized [id number] Closed Specialty Services Required 01/04/2020 01/03/2021 24 24 Question Answer PTRFR PT Evaluate and Treat Therapy options discussed with patient? Yes Location provided for therapy services is: Patient requested/Patient preferred Please select the performing region: [facility] (All Locations) [167] # of visits: 24 Encounter Details Date Type Department Care Team (Late st Contact Info) Description 01/04/2020 9:30 AM CDT Telemedicine [facility] Surgery [address] [facility] Medical Office Building [address] [place] [id number] Berry Atkins NP [address] [facility] [place] [phone] [place] [address] Morbid obesity (CMS/HCC) (Primary Dx); Essential hypertension; Osteoarthritis Social History Tobacco Use Types Packs/Day Years Used Date Smoking Tobacco: Never Comments Unknown Sex and Gender Information Value Date Recorded Sex Assigned at Not on file 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 During the visit, I was located at home and the patient was located at home in the state of [place]. The patient visit started at 1047 and ended at 1116. Total encounter time was 29 min, which includes time spent today on pre charting, the patient encounter, and post charting. The patient has been informed that the [...] billed and/or responsible for any applicable copayments. Berry Atkins NP REASON FOR CONSULTATION: The patient is seen in consultation for evaluation of medical problems caused by, or seriously aggravated by, morbid obesity. REQUESTING PROVIDER: Referral, Self HISTORY OF PRESENT ILLNESS: The patient is a 54 y.o. female with a long history of clinically severe obesity who presents today to begin the process of comprehensive evaluation for bariatric and metabolic surgery. Multiple attempts at non-surgical weight loss have been unsuccessful, and the obesityhas caused significant medical comorbidity and reduced quality of life. The patient expresses interest in being considered for weight loss surgery as a means to improve health and overall quality of life. As such, bariatric surgery consultation has been initiated. Pt reports her weight on her home scale at 285 pounds and she is 5'6 tall which gives her a BMI of46.0. The excess body weight interferes with activities of daily living and negatively impacts quality of life. The patient has attempted medical weight loss in the past through the use of Atkins diet and Aeromics diet. At most the patient has lost 50 pounds at any one stretch. Her highest measured weight is 285 pounds. PAST MEDICAL HISTORY: She has a past medical history of Anemia, Arthritis, Hypertension, Irritable bowel syndrome, and Morbid obesity (CMS/HCC). PAST SURGICAL HISTORY: She has a past surgical history that includes Cholecystectomy; section; and Nose surgery. MEDICATIONS: She has a current medication list which includes the following prescription(s): albuterol hfa, diltiazem, ergocalciferol, furosemide, ibuprofen, iron, and omega-3s/dha/epa/fish oil/d3. ALLERGIES: She is allergic to a and d barrier. FAMILY HISTORY: Her family history includes Cancer in her mother; Diabetes in her mother; Hypertension in her mother; Obesity in her mother. SOCIAL HISTORY: She reports that she has never smoked. She does not have any smokeless tobacco history on file. No history on file for alcohol and drug. REVIEW OF SYSTEMS: The patient-completed Review of Systems was reviewed and was scanned as an attachment to this encounter. PHYSICAL EXAMINATION: BMI 46.0 GENERAL: Morbidly obese individual in no acute distress. NEURO: Alert and oriented x3, mood and affect appropriate. HEENT: Pupils equal. EOMs grossly normal. NECK: Supple. Trachea midline. PULMONARY: Breathing comfortably on room air. No audible wheezes. CARDIOVASCULAR: No BLE edema SKIN: Smooth and dry. No rashes. ABDOMEN: Central obesity. Soft, non-tender, no masses. No hepatomegaly, no splenomegaly. RESULTS: H. pylori breath test: unknown GERDQ score: 0 STOP-BANG score: 3 Does the patient have renal insufficiency? no Does the patient have venous insufficiency? no Does the patient have venous stasis ulcers? no Does the patient wear compression stockings? no ASSESSMENT AND PLAN: Patient Active Problem List Diagnosis ??? Arthralgia of hip ??? Morbid obesity (CMS/HCC) ??? Crohn's disease (CMS/HCC) ??? Paroxysmal supraventricular tachycardia (CMS/HCC) Rowena Quesada is a pleasant 54 y.o. year old female who presents today for evaluation for possible Laparoscopic Sleeve Gastrectomy. She has a history of morbid obesity and other comorbidities listed above. Her current BMI is 46.0 making her an excellent potential bariatric surgical candidate. She would like to have her surgery as soon as possible, and we will begin with a comprehensive evaluation: Psychological Evaluation Nutrition Evaluation Physical Therapy EKG Labs EGD (to be scheduled) Insurance approval Once we have obtained all of the above, we will hopefully be able to proceed with surgical planning. The patient has no barriers to education and demonstrates understanding. Finally, Rowena Quesadais encouraged to call the office with any questions or concerns in the meantime. Berry Atkins NP Nurse Practitioner Minimally Invasive Surgery Department of Surgery p: [phone] Cosigned by Thierno Blanc MD at 01/04/2020 12:14 PM CDT documented in this encounter Plan of Treatment Scheduled Orders Name Type Priority Associated Diagnoses Orde r Schedule Vitamin D 25 hydroxy Lab Routine Morbid obesity (CMS/HCC) Essential hypertension Osteoarthritis Expected: 01/04/2020, Expires: 01/03/2021 Scheduled Referrals Name Type Priority Associated Diagnoses Order Schedule Ambulatory referral order to Physical Therapy - Outpatient Referral Routine Morbid obesity (CMS/HCC) Essential hypertension Osteoarthritis Expected: 01/18/2020 (Approximate), Expires: 01/03/2021 Ambulatory referral to Nutrition Services Outpatient Referral Routine Morbid obesity (CMS/HCC) Essential hypertension Osteoarthritis Expected: 01/18/2020 (Approximate), Expires: 01/03/2021 documented as of this encounter Procedures Procedure Name Priority Date/Time Associated Diagnosis Comments COPY(IES) SENT TO: Routine 01/17/2020 9: 41 AM CDT IRON PROFILE W/ IBC Routine 01/17/2020 9 :41 AM CDT Morbid obesity (CMS/HCC) Essential hypertension Osteoarthritis CBC WITH AUTO DIFFERENTIAL Routine 01/17/2020 9:41 AM CDT Morbid obesity (CMS/HCC) Essential hypertension Osteoarthritis H. PYLORI BREATH TEST Routine 01/17/2020 9:41 AM CDT Morbid obesity (CMS/HCC) Essential hypertension Osteoarthritis TSH Routine 01/17/2020 9:41 AM CDT Morbid obesity (CMS/HCC) Essential hypertension Osteoarthritis PTH Routine 01/17/2020 9:41 AM CDT Morbid obesity (CMS/HCC) Essential hypertension Osteoarthritis HEMOGLOBIN A1C Routine 01/17/2020 9:41 AM CDT Morbid obesity (CMS/HCC) Essential hypertension Osteoarthritis FERRITIN Routine 01/17/2020 9:41 AM CDT Morbid obesity (CMS/HCC) Essential hypertension Osteoarthritis VITAMIN B12 Routine 01/17/2020 9:41 AM CDT Morbid obesity (CMS/HCC) Essential hypertension Osteoarthritis LIPID PANEL Routine 01/17/2020 9:41 AM CDT Morbid obesity (CMS/HCC) Essential hypertension Osteoarthritis COMPREHENSIVE METABOLIC PANEL Routine 01/17/2020 9:41 AM CDT Morbid obesity (CMS/HCC) Essential hypertension Osteoarthritis documented in this encounter Results * COPY(IES) SENT TO: (01/17/2020 9:41 AM CDT) COPY(IES) SENT TO: [facility] Comment: ?[facility] ?COPY TO ACCOUNT ?[id number] ?[place] [address] 01/17/2020 9:41 AM CDT 01/17/2020 6:08 PM CDT Narrative [facility] - 01/18/2020 4:27 PM CDT FASTING:NO PATIENT REFUSED SOME TESTING; PATIENT ENCOURAGED TO RETURN. FASTING: NO Berry Atkins NP LAB BLOOD ORDERABLES Final Result Performing Organization Address [facility] de Phone Number [facility] * H. pylori breath test (01/17/2020 9:41 AM CDT) H. pylori, breath test NOT DETECTED NOT DETECTED [facility] Comment: Antimicrobials, proton pump inhibitors, and bismuth preparations are known to suppress H. pylori, and ingestion of these prior to H. pylori diagnostic testing may lead to false negative results. If clinically indicated, the test may be repeated on a new specimen obtained two weeks after discontinuing treatment. However, a positive result is still clinically valid. Breath 01/17/2020 9:41 AM CDT 01/17/2020 6:08 PM CDT Narrative [facility] - 01/18/2020 4:27 PM CDT FASTING:NO PATIENT REFUSED SOME TESTING; PATIENT ENCOURAGED TO RETURN. FASTING: NO Berry Atkins NP LAB BODY FLUIDS AND STOOLS ORDERABLES Final Result Performing Organization Address [facility] Co de Phone Number [facility] [address] [place] [address] * Ferritin (01/17/2020 9:41 AM CDT) Ferritin 39 16 - 232 ng/mL [facility] Blood specimen (specimen) 01/17/2020 9:41 AM CDT 01/17/2020 6:08 PM CDT Narrative [facility] - 01/18/2020 4:27 PM CDT FASTING:NO PATIENT REFUSED SOME TESTING; PATIENT ENCOURAGED TO RETURN. FASTING: NO Berry Atkins NP LAB BLOOD ORDERABLES Final Result [facility] [address] [place] [address] * (ABNORMAL) Iron profile w/ IBC (01/17/2020 9:41 AM CDT) Iron 50 45 - 160 mcg/dL [facility] TIBC 327 250 - 450 mcg/dL (calc) [facility] Iron saturation 15(L) 16 - 45 % (calc) [facility] Blood specimen (specimen) 01/17/2020 9:41 AM CDT 01/17/2020 6:08 PM CDT Narrative [facility] - 01/18/2020 4:27 PM CDT FASTING:NO PATIENT REFUSED SOME TESTING; PATIENT ENCOURAGED TO RETURN. FASTING: NO Berry Atkins NP LAB BLOOD ORDERABLES Final Result [facility] [address] [place] [address] * Vitamin B12 (01/17/2020 9:41 AM CDT) Vitamin B12 297 200 - 1,100 pg/mL [facility] Comment: Please Note: Although the reference range for vitamin B12 is 200-1100 pg/mL, it has been reported that between 5 and 10% of patients with values between 200 and 400 pg/mL may experience neuropsychiatric and hematologic abnormalities due to occult B12 deficiency; less than 1% of patients with values above 400 pg/mL will have symptoms. Blood specimen (specimen) 01/17/2020 9:41 AM CDT 01/17/2020 6:08 PM CDT Narrative [facility] - 01/18/2020 4:27 PM CDT FASTING:NO PATIENT REFUSED SOME TESTING; PATIENT ENCOURAGED TO RETURN. FASTING: NO Berry Atkins NP LAB BLOOD ORDERABLES Final Result Performing Organization Address [facility]/ZIP Co de Phone Number [facility] [address] [place] [address] * PTH (01/17/2020 9:41 AM CDT) Parathyroid hormone, intact 49 14 - 64 pg/mL [facility] Comment: Interpretive Guide ?Intact PTH ? Calcium ? ------- Normal Parathyroid ?Normal ? Normal Hypoparathyroidism ?Low or Low Normal ?Low Hyperparathyroidism ?? Primary ?Normal or High ? High ?? Secondary ?High ? Normal or Low ?? Tertiary ? High ? High Non-Parathyroid ?? Hypercalcemia ?Low or Low Normal ?High Blood specimen (specimen) 01/17/2020 9:41 AM CDT 01/17/2020 6:08 PM CDT Narrative [facility] - 01/18/2020 4:27 PM CDT FASTING:NO PATIENT REFUSED SOME TESTING; PATIENT ENCOURAGED TO RETURN. FASTING: NO Berry Atkins NP LAB BLOOD ORDERABLES Final Result Performing Organization Address [facility]/ZIP Co de Phone Number [facility] [address] [address] * (ABNORMAL) Lipid panel (01/17/2020 9:41 AM CDT) Cholesterol 205(H) <200 mg/dL [facility] HDL 51 > OR = 50 mg/dL [facility] Triglycerides 95 <150 mg/dL [facility] LDL 134(H) mg/dL (calc) [facility] [employer] Comment: Reference range: <100 Desirable range <100 mg/dL for primary prevention; ?? <70 mg/dL for patients with CHD or diabetic patients with > or = 2 CHD risk factors. LDL-C is now calculated using the Latanya calculation, which is a validated novel method providing better accuracy than the Friedewald equation in the estimation of LDL-C. Walter SARKAR et al. TEJINDER. 2013;310(19): 1003-8621 (http://education.Flight Steward/faq/GKE792) Chol/HDL ratio 4.0 <5.0 (calc) [facility] Non-HDL, (LDL+VLDL) 154(H) <130 mg/dL (calc) [facility] Comment: For patients with diabetes plus 1 major ASCVD risk factor, treating to a non-HDL-C goal of <100 mg/dL (LDL-C of <70 mg/dL) is considered a therapeutic option. Blood specimen (specimen) 01/17/2020 9:41 AM CDT 01/17/2020 6:08 PM CDT Narrative [facility] - 01/18/2020 4:27 PM CDT FASTING:NO PATIENT REFUSED SOME TESTING; PATIENT ENCOURAGED TO RETURN. FASTING: NO us Berry Atkins PRACTICAL NURSING FACULTY LAB BLOOD ORDERABLES Final Result [facility] [address] [place] [address] * TSH (01/17/2020 9:41 AM CDT) TSH 1.29 mIU/L [facility] Comment: ?Reference Range ?> or = 20 Years ??0.40-4.50 ? Ranges ?First trimester ?0.26-2.66 ?Second trimester ?? 0.55-2.73 ?Third trimester ?0.43-2.91 Blood specimen (specimen) 01/17/2020 9:41 AM CDT 01/17/2020 6:08 PM CDT Narrative [facility] - 01/18/2020 4:27 PM CDT FASTING:NO PATIENT REFUSED SOME TESTING; PATIENT ENCOURAGED TO RETURN. FASTING: NO Berry Atkins PRACTICAL NURSING FACULTY LAB BLOOD ORDERABLES Final Result [facility] [address] [place] [address] * (ABNORMAL) Hemoglobin A1c (01/17/2020 9:41 AM CDT) Hgb A1C 5.9(H) <5.7 % of total Hgb [facility] Comment: For someone without known diabetes, a hemoglobin A1c value between 5.7% and 6.4% is consistent with prediabetes and should be confirmed with a follow-up test. For someone with known diabetes, a value <7% indicates that their diabetes is well controlled. A1c targets should be individualized based on duration of diabetes, age, comorbid conditions, and other considerations. This assay result is consistent with an increased risk of diabetes. Currently, no consensus exists regarding use of hemoglobin A1c for diagnosis of diabetes for children. Blood specimen (specimen) 01/17/2020 9:41 AM CDT 01/17/2020 6:08 PM CDT Narrative [facility] - 01/18/2020 4:27 PM CDT FASTING:NO PATIENT REFUSED SOME TESTING; PATIENT ENCOURAGED TO RETURN. FASTING: NO Berry Atkins PRACTICAL NURSING FACULTY LAB BLOOD ORDERABLES Final Result [facility] [address] [address] * Comprehensive metabolic panel (01/17/2020 9:41 AM CDT) Glucose 114 65 - 139 mg/dL [facility] Comment: ? Non-fasting reference interval BUN 16 7 - 25 mg/dL [facility] Creatinine 0.64 0.50 - 1.05 mg/dL [facility] Comment: For patients >49 years of age, the reference limit for Creatinine is approximately 13% higher for people identified as -Slovak. eGFR NON-AFR. GHANAIAN 103 > OR = 60 mL/min/1 .73m2 [facility] EGFR 119 > OR = 60 mL/min/1 .73m2 [facility] BUN/creat ratio NOT APPLICABLE 6 - 22 (calc) [facility] Sodium 136 135 - 146 mmol/L [facility] Potassium, pl 4.1 3.5 - 5.3 mmol/L [facility] Chloride 103 98 - 110 mmol/L [facility] CO2 29 20 - 32 mmol/L [facility] Calcium 9.2 8.6 - 10.4 mg/dL [facility] Protein, sr 6.6 6.1 - 8.1 g/dL [facility] Albumin 3.7 3.6 - 5.1 g/dL [facility] GLOBULIN 2.9 1.9 - 3.7 g/dL (calc) [facility] Alb/glob ratio 1.3 1.0 - 2.5 (calc) [facility] Bilirubin, total 0.3 0.2 - 1.2 mg/dL [facility] Alk phos 66 37 - 153 U/L [facility] AST 15 10 - 35 U/L [facility] ALT (SGPT) 19 6 - 29 U/L [facility] Blood specimen (specimen) 01/17/2020 9:41 AM CDT 01/17/2020 6:08 PM CDT Narrative [facility] - 01/18/2020 4:27 PM CDT FASTING:NO PATIENT REFUSED SOME TESTING; PATIENT ENCOURAGED TO RETURN. FASTING: NO Berry Atkins NP LAB BLOOD ORDERABLES Final Result [facility] [address] [place] [address] * CBC with auto differential (01/17/2020 9:41 AM CDT) WBC 9.4 3.8 - 10.8 Thousand/u L [facility] RBC, POC 4.69 3.80 - 5.10 Million/uL [facility] Hgb 14.1 11.7 - 15.5 g/dL [facility] Hct 43.1 35.0 - 45.0 % [facility] MCV 91.9 80.0 - 100.0 fL [facility] MCH 30.1 27.0 - 33.0 pg [facility] MCHC 32.7 32.0 - 36.0 g/dL [facility] Rdw 13.1 11.0 - 15.0 % [facility] Platelets 367 140 - 400 Thousand/u L [facility] MPV 10.1 7.5 - 12.5 fL [facility] Neutrophils, abs 6,439 1,500 - 7,800 cells/uL [facility] Lymphocytes, abs 2,049 850 - 3,900 cells/uL [facility] Monocyte abs 667 200 - 950 cells/uL [facility] Eosinophils, abs 197 15 - 500 cells/uL [facility] Basophils, abs 47 0 - 200 cells/uL [facility] Neutrophils 68.5 % [facility] Lymphocyte pct 21.8 % [facility] Monocytes 7.1 % [facility] Eosinophils 2.1 % [facility] Basophils 0.5 % [facility] Blood specimen (specimen) 01/17/2020 9:41 AM CDT 01/17/2020 6:08 PM CDT Narrative [facility] - 01/18/2020 4:27 PM CDT FASTING:NO PATIENT REFUSED SOME TESTING; PATIENT ENCOURAGED TO RETURN. FASTING: NO Berry Atkins PRACTICAL NURSING FACULTY LAB BLOOD ORDERABLES Final Result [facility] [address] [place] [address] documented in this encounter Visit Diagnoses Diagnosis Morbid obesity (HCC)- Primary Morbid obesity Essential hypertension Unspecified essential hypertension Osteoarthritis Osteoarthrosis, unspecified whether generalized or localized, unspecified site documented in this encounter Discontinued Medications Medication Sig Discontinue Reason Start Date End Da te spironolactone (ALDACTONE) 25 mg tablet daily 01/04/2020 potassium chloride ER (potassium chloride ER) 20 mEq CR tablet potassium chloride ER 20 mEq tablet,extended release(part/cryst) 01/04/2020 omeprazole (PriLOSEC) 20 mg capsule omeprazole 20 mg capsule,delayed release 01/04/2020 magnesium oxide 400 mg magnesium tablet daily 01/04/2020 losartan (Cozaar) 25 mg tablet daily 01/04/2020 hydroCHLOROthiazid e (HYDRODIURIL) 12.5 mg tablet hydrochlorothiazide 12.5 mg tablet 01/04/2020 atorvastatin (LIPITOR) 20 mg tablet Take 20 mg by mouth daily 2019 documented as of this encounter Care Teams Linseed Oil Press Tender Relationship Specialty Start Date End Date Baldomero Dominguez MD PCP - General 01/07/17 Jaciel Melo MD Diversional Therapist Cardiovascular Disease 04/12/19 2 documented as of this encounter
--- OUTSIDE RECORDS SUMMARY | 2024-07-11 07:43 | XMS_ITS | Encounter Summary ---
Author Organization [facility] Address [address] [place] [address] Phone Care Team Providers Care Veterinarian Laboratory Animal Care Name Role Phone Baldomero Dominguez MD Primary Care Provider [phone] Jaciel Melo MD Unavailable [phone] Michele León DPT Unavailable [phone] Encounter Details Date Type Department Care Team (Late st Contact Info) Description 09/25/2019 Telephone [facility] Neema Bonilla Social History Tobacco Use Types Packs/Day Years Used Date Smoking Tobacco: Never Comments Unknown Sex and Gender Information Value Date Recorded Sex Assigned at Not on file Legal Sex Female 1:19 PM PHOTOGRAPHIC AIDE Gender Identity Not on file Sexual Orientation Not on file documented as of this encounter Miscellaneous Notes * Telephone Encounter - Neema Bonilla - 09/25/2019 7:52 AM CST Bariatric Benefit and Communication Form Primary Insurance: [facility] - Medical Policy #[id number] Effective: 07.26.2016 S/W name and number: Ariella Kent @ [phone] - Call ref: [phone] Bariatric Surgery Benefits: [x] Yes [] No - Insurance excludes bariatric surgery [x] Patient CAN have surgery at a [facility] facility [facility] non-[facility] facility required: No Bariatric Copay: [x] N/A or [] $ Deductible: [] N/A or [x] $ 600(329.35 met) Coinsurance: 20% Out of Pocket Maximum: [] N/A or [x] $4600( 504.35 met) Bypass: [x] Yes or [] No Sleeve: [x] Yes or [] No Duodenal Switch: [x] Yes [] No Lap Band: [x] Yes or [] No Band Fill Coverage: [x] Yes or [] No Lap Band Prior Auth [] Auth NOT required or [x] Prior Auth IS required Limit on # of fills: [] None or [x] Band adjustments are covered for up to two (2) years following gastric banding surgery and are covered only if the initial bariatric procedure took place on or after July 26, 2010. Revision: [x] Yes or [] No Revision Requirements: Reoperation and Revisional Bariatric Surgery Replacement of an adjustable silicone gastric band or separate or concurrent band removal and conversion to a second bariatric surgical procedure is considered medically necessary if there is evidence of band slippage or band component malfunction and the faulty component cannot be repaired. Gastric band removal is considered medically necessary for gastrointestinal symptomology (e.g., persistentnausea and/or vomiting, gastroesophageal reflux) with or without imaging evidence of obstruction. The following procedures are considered medically necessary when the individual develops a major complication from a primary bariatric surgery procedure (e.g., stricture, obstruction, erosion, gastric prolapse, ulceration, fistula formation, esophageal dilatation): ??? surgical repair or reversal (i.e., takedown) ??? conversion to a medically necessary bariatric surgery procedure Revision of a previous bariatric surgical procedure or conversion to another medically necessary procedure due to inadequate weightloss is considered medically necessary when ALL of the following are met: There is evidence of full compliance with the previously prescribed postoperative dietary and exercise program. ??? Due to a technical failure??? of the original bariatric surgical procedure (e.g., pouch dilatation,unsuccessful band adjustments), the individual has failed to achieve adequate weight loss, which isdefined as failure to lose at least 50% of excess body weight or failure to achieve body weight to within 30% of ideal body weight at least two years following the original surgery. ???In the absenceof a technical failure or major complication, individuals with weight loss failure >= two years following a primary bariatric surgery procedure must meet the initial medical necessity criteria forsurgery. NOTE: Inadequate weight loss due to individual noncompliance with postoperative nutrition and exercise recommendations is not a medically necessary indication for revision or conversion surgery. Surgical reversal (i.e., takedown), revision of a previous bariatric surgical procedure or conversion to another bariatric surgical procedure for ANY other indication is considered not medically necessary. ??? A revisional bariatric surgery (any surgery following the initial procedure) will be covered only if complications arise as a result of the initial surgery. ??? A revisional surgery will not be covered for weight regain or if the patient is unable to lose weight from the initial surgery regardless of when the original surgery was performed. The following procedures performed in conjunction with a bariatric surgery are considered not medically necessary: ??? cholecystectomy in the absence of signs or symptoms of gallbladder disease ??? liver biopsy in the absence of signs or symptoms of liver disease (e.g., elevated liver enzymes, enlarged liver, abnormal intraoperative findings) ??? routine vena cava filter placement for individuals not at high risk for venous thromboembolism (VTE) BMI: [x] 40 or greater, NO comorbid condition required [] 40 or greater, WITH comorbid condition [x] 35 - 39.9 in conjunction with at least one comorbidity [] Comorbidity required regardless of BMI greater than 35 Medically Supervised Weight Loss Required: Yes, 6 consecutive months within the past 12 months supervised either by a Physician, PA, PLANT PROTECTION SUPERINTENDENT or RD Morbid Obesity weight and date requirement: [x] Not required [] 2YR [] 3YR [] 5YR Insurance Requires: Patient must be enrolled with plan for at least 1 year before surgery will be covered. Other Instructions: -- Vocational Rehabilitation Administrator Obtaining Benefits: EDM...09.25.2019 Secondary Insurance: IDPA Effective: 04.23.2020 S/W name and number: Bariatric Surgery Benefits: [x] Yes [] No - Insurance excludes bariatric surgery [x] Patient CAN have surgery at a [facility] [x] Patient CAN have surgery at a [facility] non-[facility] facility required: No [] Patient CANNOT have surgery at a [facility]. Employee: [facility] [] [facility] [] [facility][] Bariatric Copay: [x] N/A or [] $ Deductible: [x] N/A or [] $ Coinsurance: [x] N/A or [] $ Out of Pocket Maximum: [x] N/A or [] $ Bypass: [x] Yes or [] No Sleeve: [x] Yes or [] No Duodenal Switch: [x] Yes [] No Lap Band: [x] Yes or [] No Band Fill Coverage: [x] Yes or [] No Lap Band Prior Auth [] Auth NOT required or [x] Prior Auth IS required Limit on # of fills: [x] None or ( ) Revision: [x] Yes or [] No Revision Requirements: Yes, Revisions are necessary when there is documentation of a failure or secondary to a surgical complication including but not limited to one of the following: fistula formation, obstruction, stricture, esophagitis unresponsive to nonsurgical treatment, disruption/leakage due to failure of a suture or staple line, band herniation, hemorrhage, hematoma formation, excessive bilious vomiting, stomal dilatation documented by endoscopy, or weight loss of 20% or more below theideal body weight Repeat procedures for Revision or Conversion: to another surgical procedure is considered medicallynecessary when there is documentation of inadequate weight loss unrelated to a prior surgical complication when all of the following applies: ??? Patient continues to meet the initial requirements ??? at least 2 years have lapsed since the original bariatric surgery with weight loss that is lessthan 50% of the pre-operative excess body weight and weight remains at least 30% over ideal body weight - referencing standard tables for adult weight and height by the National Heart, Lung, and Blood Kelly [9] or for adolescents by age and sex through growth charts for stature and weight percentiles, BMI index percentiles, and data tables of weight at the Centers For Disease Control and Prevention [10] ??? Patient has been compliant with the prescribed nutrition and exercise program per surgeon???s statement and as evidenced by submission of Post- Operative follow-up records BMI: [x] 40 or greater, NO comorbid condition required [] 40 or greater, WITH comorbid condition [x] 35 - 39.9 in conjunction with at least one comorbidity [] Comorbidity required regardless of BMI greater than 35 Medically Supervised Weight Loss Required: Yes, 6 consecutive months(180 days or greater) under theguidance of the PCP working in conjunction with a RD within 1 year prior to surgery Morbid Obesity weight and date requirement: [] Not required [x] 2YR [] 3YR [] 5YR Insurance Requires: Smoking cessation; addiction to alcohol and drugs must be addressed. Pulmonary evaluation, including arterial blood gas measurement and polysomnography, if indicated. Diagnostic evaluation for deep venous thrombosis and vena cava filter, if indicated Abdominal ultrasonography and viral hepatitis screen. Chest radiograph - anterior posterior and lateral. Optimization of glycemic control. Treatment of dyslipidemia. Discontinuing estrogen therapy, if applicable. Cardiology consultation and beta-adrenergic blockade, if indicated. Preoperative weight loss should be considered in patients whom reduction of liver volume is expected to improve the technical aspects of surgery Institution of CPAP or BiPAP as indicated for obstructive sleep apnea (TRACE), obesity-hypoventilation syndrome (OHS), or Pickwickian syndrome. Other Instructions: Fax Clinicals to [phone] Attn: Carrie Roa Vocational Rehabilitation Administrator Obtaining Benefits: EDM...04.23.2020 OGRAPHIC AIDE documented in this encounter Plan of Treatment Not on file documented as of this encounter Visit Diagnoses Not on filedocumented in this encounter Care Teams Veterinarian Laboratory Animal Care Relationship Specialty Start Date End Date Baldomero Dominguez MD PCP - General 01/07/17 Jaciel Melo MD Shale Planer Operator Helper Cardiovascular Disease 04/12/19 2 Michele León DPT [address] [facility] [address] [place] [address] Physical Therapist Physical Therapy 01/25/20 01/25/20 documented as of this encounter
--- OUTSIDE RECORDS SUMMARY | 2024-07-11 07:43 | XMS_ITS | Encounter Summary ---
Author Organization [facility] Address [address] [place] [address] Phone Care Team Providers Care Clothes Drier Assembler Name Role Phone Baldomero Dominguez MD Primary Care Provider [phone] Jaciel Melo MD Unavailable [phone] Encounter Details Date Type Department Care Team (Late st Contact Info) Description 01/24/2020 Telephone [facility] Physical Therapy [address] [facility] 1st Floor [address] [place] [address] Michele León, ZORA [address] [facility] [address] [address] Social History Tobacco Use Types Packs/Day Years Used Date Smoking Tobacco: Never Comments Unknown Sex and Gender Information Value Date Recorded Sex Assigned at Not on file Legal Sex Female 1:19 PM PROTECTION ANALYST Gender Identity Not on file Sexual Orientation Not on file documented as of this encounter Miscellaneous Notes * Telephone Encounter - Akbar Garcia - 01/24/2020 12:18 PM CDT lvm for patient to call back for covid 19 screening Akbar garcia PSRIII documented in this encounter Plan of Treatment Not on file documented as of this encounter Visit Diagnoses Not on filedocumented in this encounter Care Teams Clothes Drier Assembler Relationship Specialty Start Date End Date Baldomero Dominguez MD PCP - General 01/07/17 Jaciel Melo MD National Business Director Cardiovascular Disease 04/12/19 2 documented as of this encounter
--- OUTSIDE RECORDS SUMMARY | 2024-07-11 07:44 | XMS_ITS | Encounter Summary ---
Author Organization [facility] Address [address] [place] [address] Care Team Providers Care Oil Well Cable Tool Operator Name Role Phone Unavailable Primary Care Provider Unavailabl e Encounter Details Date Type Department Care Team (Latest Contact Info) Description 08/18/2016 8:49 AM SORT SUPERVISOR - 08/25/2016 8:49 AM SORT SUPERVISOR Hospital Encounter [facility] OP Baldomero Dominguez MD [address] [place] [address] Anemia; Other fatigue; Left lower quadrant pain Social History Tobacco Use Types Packs/Day Years Used Date Smoking Tobacco: Never Comments Unknown Sex and Gender Information Value Date Recorded Sex Assigned at Not on file Legal Sex Female 1:19 PM SORT SUPERVISOR Gender Identity Not on file Sexual Orientation Not on file documented as of this encounter Plan of Treatment Not on file documented as of this encounter Procedures Procedure Name Priority Date/Time Associated Diagnosis Comments THYROID PANEL Routine 08/18/2016 11:24 AM SORT SUPERVISOR IRON PROFILE W/ IBC Routine 08/18/2016 1 1:24 AM SORT SUPERVISOR VITAMIN D 25 HYDROXY Routine 08/18/2016 11:24 AM SORT SUPERVISOR VITAMIN B12 Routine 08/18/2016 11:24 AM SORT SUPERVISOR LIPID PANEL Routine 08/18/2016 11:24 AM SORT SUPERVISOR COMPREHENSIVE METABOLIC PANEL Routine 08/18/2016 11:24 AM SORT SUPERVISOR URINALYSIS, MACRO AND MICRO Routine 08/18/2016 8:51 AM SORT SUPERVISOR documented in this encounter Results * Thyroid Panel (08/18/2016 11:24 AM SORT SUPERVISOR) Pathologist [facility] TSH 1.68 0.27 - 4.20 uIU/mL 08/18/2016 2:58 PM SORT SUPERVISOR [facility] HISTORICAL RESULTS Free T4 1.04 0.93 - 1.70 ng/dL 08/18/2016 2:58 PM SORT SUPERVISOR [facility] HISTORICAL RESULTS 08/18/2016 11:2 4 AM SORT SUPERVISOR 08/18/2016 11:25 AM SORT SUPERVISOR us Baldomero Dominguez MD LAB BLOOD ORDERABLES Final Resul t [facility] HISTORICAL RESULTS * (ABNORMAL) Vitamin D 25 hydroxy (08/18/2016 11:24 AM SORT SUPERVISOR) Pathologist [facility] 25-OH Vitamin D Total 12(L) 30 - 100 ng/mL 08/18/2016 12:15 PM SORT SUPERVISOR [facility] HISTORICAL RESULTS Comment: ??Use caution when comparing results from different ? methodologies and/or manufacturers. ? METHOD: [employer] Chemiluminescent technology TEST INFORMATION: Vitamin D, 25 Hydroxy This assay accurately quantifies the sum of vitamin D3, 25-hydroxy and vitamin D2, 25-hydroxy. REFERENCE RANGES: ?Deficiency: ? < 20 ng/mL ?Insufficiency: ? 20-29 ng/mL ?Optimum level: ?30-100 ng/mL ?Possible toxicity: ?>100 ng/mL No pediatric reference range established. 08/18/2016 11:2 4 AM SORT SUPERVISOR 08/18/2016 11:25 AM SORT SUPERVISOR us Baldomero Dominguez MD LAB BLOOD ORDERABLES Final Resul t Performing Organization Address [facility] Phone Number [facility]ORICAL RESULTS * Vitamin B12 (08/18/2016 11:24 AM SORT SUPERVISOR) Vitamin B12 280 211 - 946 pg/mL 08/18/2016 2:10 PM SORT SUPERVISOR [facility] [employer] [facility] HISTOR[facility] RES[facility] Comment:FASTING IS RECOMMEND ED 08/18/2016 11:2 4 AM SORT SUPERVISOR 08/18/2016 11:25 AM SORT SUPERVISOR us Baldomero Dominguez MD LAB BLOOD ORDERABLES Final Resul t Performing Organization Address [facility] Number [facility] [place] HISTORICAL RESULTS * (ABNORMAL) Iron profile w/ IBC (08/18/2016 11:24 AM SORT SUPERVISOR) Iron 26(L) 37 - 145 ug/dL 08/18/2016 2:53 PM [facility] [place] HISTORICAL RESULTS Comment:Fasting specimen pre ferred TIBC 325 228 - 428 ug/dL 08/18/2016 2:53 PM SORT SUPERVISOR [facility] [employer] [facility] HISTORICAL RESULTS Transferrin % Sat 8(L) 20 - 50 % 08/18/2016 2:53 PM SORT SUPERVISOR [facility] [employer] [facility] HISTORICAL RESULTS 08/18/2016 11:2 4 AM SORT SUPERVISOR 08/18/2016 11:25 AM SORT SUPERVISOR us Baldomero Dominguez MD LAB BLOOD ORDERABLES Final Resul t Performing Organization Address [facility] Phone Number [facility] [place] HISTORICAL RESULTS * Lipid panel (08/18/2016 11:24 AM SORT SUPERVISOR) Triglycerides 109 0 - 199 mg/dL 08/18/2016 2:53 PM SORT SUPERVISOR [facility] [place] HISTORICAL RESULTS Comment:12 hr pc highly moreno mmended for Triglyceride Cholesterol 189 0 - 199 mg/dL Comment: Borderline: ??200-239 High Risk: ?? >239 HDL Cholesterol 43 40 - 60 mg/dL Comment: Major Risk ?< 40 mg/dL Moderate Risk ?40-60 mg/dL Negative Risk ?? > 60 mg/dL LDL Cholesterol, Calc 124 0 - 130 mg/dL Comment:High Risk > 159 mg/d L Cholesterol/HDL Ratio 4.4 Comment: Cholesterol / HDL Ratio 3.5:1 or less is desirable. Cholesterol / HDL Ratio greater than 5:1 is considered higher risk for developing heart disease. 08/18/2016 11:2 4 AM SORT SUPERVISOR 08/18/2016 11:25 AM SORT SUPERVISOR Baldomero Dominguez MD LAB BLOOD ORDERABLES Final Resul t [facility] HISTORICAL RESULTS * (ABNORMAL) Comprehensive metabolic panel (08/18/2016 11:24 AM SORT SUPERVISOR) Sodium 139 135 - 145 mmol/L Potassium 3.9 3.3 - 5.1 mmol/L Chloride 100 96 - 108 mmol/L Carbon Dioxide 28 22 - 32 mmol/L Anion Gap 11 7 - 16 Glucose 114(H) 70 - 100 mg/dL BUN 12 6 - 20 mg/dL Creatinine 0.9 0.5 - 1.1 mg/dL Comment: NOTE: Estimated GFR (Cockroft-Gault) will NOT be calculated unless patient Height and Weight were entered. Also, Kidney Disease Stage (GFR) and Estimated GFR (Cockroft-Gault) will NOT be calculated if Creatinine result is <0.2. Kidney Disease Stage 71 mL/MIN 08/18/2016 2:53 PM [employer] HISTORICAL RESULTS Comment: NOTE; ??The GFR is an estimated value using the creatinine, sex, age, and race of the patient. THE Estimated Kidney Disease GFR is validated for AGES 18-70 YEARS STAGE ?mL/Min ?DESCRIPTION ??1 ?90 mL/min or more ?Normal or elevated GFR ??2 ? 60-89 mL/min ?Mildly decreased GFR ??3 ? 30-59 mL/min ?Moderately decreased GFR ??4 ? 15-29 mL/min ?Severely decreased GFR ??5 ? <15 mL/min ? Kidney failure or on dialysis @ Calcium 9.0 8.6 - 10.0 mg/dL 08/18/2016 2:53 PM [employer] HISTORICAL RESULTS Total Protein 7.3 6.4 - 8.3 g/dL 08/18/2016 2:53 PM P[facility] [place] HISTORICAL RESULTS Albumin 3.8 3.5 - 5.2 g/dL 08/18/2016 2:53 PM [facility] [place] HISTORICAL RESULTS Globulin 3.5 2.3 - 3.5 gm/dL 08/18/2016 2:53 PM [facility] [place] HISTORICAL RESULTS Albumin/Globulin Ratio 1.1 1.1 - 1.8 08/18/2016 2:53 PM Prel[facility] [place] HISTORICAL RESULTS Total Bilirubin < 0.2 0.0 - 1.2 mg/dL 08/18/2016 2:53 PM Prel[facility] [place] HISTORICAL RESULTS AST 17 0 - 32 U/L 08/18/2016 2:53 PM SORT SUPERVISOR [facility] HISTORICAL RESULTS ALT 18 0 - 33 U/L 08/18/2016 2:53 PM SORT SUPERVISOR [facility] HISTORICAL RESULTS Alkaline Phosphatase 72 35 - 104 U/L 08/18/2016 2:53 PM SORT SUPERVISOR [facility] HISTORICAL RESULTS 08/18/2016 11:2 4 AM SORT SUPERVISOR 08/18/2016 11:25 AM SORT SUPERVISOR us Baldomero Dominguez MD LAB BLOOD ORDERABLES Final Resul t [facility] HISTORICAL RESULTS * (ABNORMAL) Urinalysis, macro and micro (08/18/2016 8:51 AM SORT SUPERVISOR) Ur Collection Type CLEAN CATCH Urine Color YELLOW YELLOW Urine Clarity HAZY CLEAR Urine Glucose (UA) NORMAL NORMAL mg/dL Urine Bilirubin NEGATIVE NEGATIVE mg/dl Urine Ketones NEGATIVE NEGATIVE mg/dL Ur Specific [place] 1.030(H) 1.005 - 1.025 Urine Blood 0.03(H) NEGATIVE mg/dl Urine pH 6.0 5.0 - 8.0 Urine Protein NEGATIVE NEGATIVE mg/dL Urine Urobilinogen NORMAL NORMAL mg/dL Urine Nitrite NEGATIVE NEGATIVE Ur Leukocyte Esterase NEGATIVE NEGATIVE [place]ul Ur Microscopic Review Indicated or Ordered 08/18/2016 9:30 AM SORT SUPERVISOR [facility] HISTORICAL RESULTS Urine RBC 4 0 - 2 /HPF 08/18/2016 9:30 AM SORT SUPERVISOR [facility] HISTORICAL RESULTS Urine WBC <1 0 - 2 /HPF 08/18/2016 9:30 AM SORT SUPERVISOR [facility] HISTORICAL RESULTS Urine Mucus Few /LPF 08/18/2016 9:30 AM SORT SUPERVISOR [facility] HISTORICAL RESULTS Ur Squamous Epith Cells Rare /HPF 08/18/2016 9:30 AM SORT SUPERVISOR [facility] HISTORICAL RESULTS 08/18/2016 8:51 AM SORT SUPERVISOR 08/18/2016 9:20 AM SORT SUPERVISOR Narrative [facility] HISTORICAL RESULTS - 08/18/2016 9:30 AM SORT SUPERVISOR us Baldomero Dominguez MD LAB URINE ORDERABLES Final Resul t [facility] HISTORICAL RESULTS documented in this encounter Visit Diagnoses Diagnosis Anemia Unspecified anemia Other fatigue Left lower quadrant pain Abdominal pain, left lower quadrant documented in this encounter
--- OUTSIDE RECORDS SUMMARY | 2024-07-11 07:44 | XMS_ITS | Encounter Summary ---
Author Organization [facility] Healthcare Address [address] [place] [address] Care Team Providers Care Crop Setting Out Machine Operator Name Role Phone Baldomero Dominguez MD Primary Care Provider [phone] Encounter Details Date Type Department Care Team (Latest Contact Info) Description 07/25/2018 10:35 AM TOOL DESIGNER - 07/25/2018 12:29 PM TOOL DESIGNER Hospital Encounter [facility] ANAM VogelHammad, [address] [place] [address] Supraventricular tachycardia (CMS/HCC); Other cholelithiasis without obstruction; Obesity Social History Tobacco Use Types Packs/Day Years Used Date Smoking Tobacco: Never Comments Unknown Sex and Gender Information Value Date Recorded Sex Assigned at Not on file Legal Sex Female 1:19 PM TOOL DESIGNER Gender Identity Not on file Sexual Orientation Not on file documented as of this encounter Last Filed Vital Signs Vital Sign Reading Time Taken Comments Blood Pressure 140/74 07/25/2018 10:37 AM TOOL DESIGNER Pulse 90 07/25/2018 10:37 AM TOOL DESIGNER Temperature 36.9 ??C (98.5 ??F) 07/25/2018 10:[address] Respiratory Rate - - Oxygen Saturation 95% 07/25/2018 10:37 AM TOOL DESIGNER Inhaled Oxygen Concentration - - Weight 127 kg (280 lb) 07/25/2018 10:37 AM TOOL DESIGNER Height 167.6 cm (5' 6 ) 07/25/2018 10:37 AM TOOL DESIGNER Body Mass Index 45.19 07/25/2018 10:37 AM TOOL DESIGNER documented in this encounter Plan of Treatment Not on file documented as of this encounter Procedures Procedure Name Priority Date/Time Associated Diagnosis Comments TNI WITH LIPID PANEL Routine 07/25/2018 11:02 AM TOOL DESIGNER THYROID FUNCTION CASCADE Routine 07/25/2018 11:02 AM TOOL DESIGNER CBC WITH AUTO DIFFERENTIAL Routine 07/25/2018 11:02 AM TOOL DESIGNER D-DIMER, QUANTITATIVE Routine 07/25/2018 11:02 AM TOOL DESIGNER COMPREHENSIVE METABOLIC PANEL Routine 07/25/2018 11:02 AM TOOL DESIGNER XR CHEST 1 VIEW Routine 07/25/2018 12:00 AM TOOL DESIGNER documented in this encounter Results * TSH reflex to free T4 (07/25/2018 11:02 AM TOOL DESIGNER) TSH W REFLEX TO FT4 1.73 0.27 - 4.20 uIU/mL 07/25/2018 11:37 AM TOOL DESIGNER [facility] HISTORICAL RESULTS 07/25/2018 11:0 2 AM TOOL DESIGNER 07/25/2018 11:08 AM TOOL DESIGNER Deanna MAURICE LAB BLOOD ORDERABLES Fin al Result [facility] HISTORICAL RESULTS * (ABNORMAL) D-dimer, quantitative (07/25/2018 11:02 AM TOOL DESIGNER) D-Dimer, Quantitative 0.51(H) 0.00 - 0.50 FEUug/ml 07/25/2018 11:25 AM TOOL DESIGNER [facility] HISTORICAL RESULTS Comment: Studies indicate that a D-Dimer level of <0.50 FEUug/ml has a >95% negative predictive value for DVT,DIC,PE and other embolus conditions. ??Levels >0.50 FEUug/ml may be present in a wide variety of conditions and should not be considered diagnostic of any disease state. 07/25/2018 11:0 2 AM TOOL DESIGNER 07/25/2018 11:08 AM TOOL DESIGNER us Hammad Vogel DO LAB BLOOD ORDERABLES Final Res ult [facility] HISTORICAL RESULTS * TNI with LIPID PANEL (07/25/2018 11:02 AM TOOL DESIGNER) Troponin I < 0.300 0.000 - 0.300 ng/mL Comment: Reference using IAN Chemiluminescence ? Negative: Repeat in 4-6 hours as indicated. Triglycerides 110 0 - 149 mg/dL Comment: National Lipid Association/NCEP Guidelines: ?? Normal ?< 150 mg/dL ?? Borderline high ?? 150-199 mg/dL ?? High ?200-499 mg/dL ?? Very High ? >=500 mg/dL Cholesterol 174 0 - 199 mg/dL Comment: National Lipid Association/NCEP Guidelines: Desirable ? < 200 mg/dL Borderline high: ??200-239 mg/dL High Risk: ?>=240 mg/dL HDL Cholesterol 37 mg/dL 8 11:32 AM [facility] HISTORICAL RESULTS Comment: Reference Ranges: ? Males: >=40 mg/dL ? Females: >=50 mg/dL LDL Cholesterol, Calc 115 0 - 129 mg/dL Comment: National Lipid Association/NCEP Guidelines: ??Optimal ? < 100 mg/dL ??Near Optimal ?100-129 mg/dL ??Borderline high 130-159 mg/dL ??High ?>=160 mg/dL Cholesterol/HDL Ratio 4.7 07/25/2018 11:32 AM [facility] [employer] HISTORICAL RESULTS Comment: Optimal ??< 3.5:1 High ? > 5:1 07/25/2018 11:0 2 AM TOOL DESIGNER 07/25/2018 11:08 AM TOOL DESIGNER Deanna MAURICE LAB BLOOD ORDERABLES Fin al Result [facility] HISTORICAL RESULTS * (ABNORMAL) Comprehensive metabolic panel (07/25/2018 11:02 AM [facility]) Sodium 137 135 - 145 mmol/L 07/25/2018 11:32 AM [facility] [employer] HISTORICAL RESULTS Potassium 3.7 3.3 - 5.1 mmol/L 07/25/2018 11:32 AM [facility] [employer] [facility] HISTORICAL RESULTS Chloride 101 96 - 108 mmol/L 07/25/2018 11:32 AM [facility] [employer] [facility] HISTORICAL RESULTS Carbon Dioxide 25 22 - 32 mmol/L 07/25/2018 11:32 AM [facility] [employer] [facility] HISTORICAL RESULTS Anion Gap 11 7 - 16 Glucose 109(H) 70 - 100 mg/dL BUN 10 6 - 20 mg/dL 07/25/2018 11:32 AM [facility] [employer] [facility] HISTORICAL RESULTS Creatinine 0.6 0.5 - 1.1 mg/dL 07/25/2018 11:32 AM [facility] [employer] [facility] HISTORICAL RESULTS Comment: NOTE: Estimated GFR (Cockroft-Gault) will NOT be calculated unless patient Height and Weight were entered. Also, Kidney Disease Stage (GFR) and Estimated GFR (Cockroft-Gault) will NOT be calculated if Creatinine result is <0.2. Kidney Disease Stage > 90 mL/MIN 07/25/2018 11:32 AM [facility] [employer] [facility] HISTORICAL RESULTS Comment: NOTE; ??The GFR is [...] ? Kidney failure or on dialysis @ Est GFR (Cockcroft-G) 151 ml/MIN 07/25/2018 11:32 AM [employer] HISTORICAL RESULTS Comment: Estimated GFR(Cockroft-Gault)is used to calculate patient medication dosage Calcium 8.9 8.6 - 10.0 mg/dL 07/25/2018 11:32 AM [facility] HISTORICAL RESULTS Total Protein 7.7 6.4 - 8.3 g/dL 07/25/2018 11:32 AM [facility] HISTORICAL RESULTS Albumin 3.9 3.5 - 5.2 g/dL 07/25/2018 11:32 AM [facility] HISTORICAL RESULTS Globulin 3.8(H) 2.3 - 3.5 gm/dL 07/25/2018 11:32 AM [facility] HISTORICAL RESULTS Albumin/Globulin Ratio 1.0(L) 1.1 - 1.8 07/25/2018 11:32 AM [facility] HISTORICAL RESULTS Total Bilirubin 0.2 0.0 - 1.2 mg/dL 07/25/2018 11:32 AM [facility] HISTORICAL RESULTS AST 25 0 - 32 U/L 07/25/2018 11:32 AM [facility] HISTORICAL RESULTS ALT 32 0 - 33 U/L 07/25/2018 11:32 AM [facility] HISTORICAL RESULTS Alkaline Phosphatase 67 35 - 104 U/L 07/25/2018 11:32 AM TOOL DESIGNER [employer] HISTORICAL RESULTS 07/25/2018 11:0 2 AM TOOL DESIGNER 07/25/2018 11:08 AM TOOL DESIGNER Deanna MAURICE LAB BLOOD ORDERABLES Fin al Result [employer] HISTORICAL RESULTS * CBC with auto differential (07/25/2018 11:02 AM TOOL DESIGNER) WBC 8.1 3.8 - 9.9 X10 3/ul 07/25/2018 11:10 AM TOOL DESIGNER [employer] HISTORICAL RESULTS RBC 5.17 3.90 - 5.20 x10 6/ul 07/25/2018 11:10 AM [facility] HISTORICAL RESULTS Hemoglobin 14.6 11.9 - 15.5 g/dL 07/25/2018 11:10 AM [facility] HISTORICAL RESULTS Hct 43.8 35.6 - 45.5 % 07/25/2018 11:10 AM [employer] HISTORICAL RESULTS MCV 84.7 81.3 - 96.4 fl 07/25/2018 11:10 AM [facility] HISTORICAL RESULTS MCH 28.2 27.1 - 33.3 pg 07/25/2018 11:10 AM [facility] HISTORICAL RESULTS MCHC 33.3 32.3 - 35.7 g/dl 07/25/2018 11:10 AM [facility] HISTORICAL RESULTS RDW 14.0 11.1 - 14.9 % 07/25/2018 11:10 AM [facility] HISTORICAL RESULTS Plt Count 339 150 - 400 x10 3/ul 07/25/2018 11:10 AM [facility] HISTORICAL RESULTS MPV 9.8 9.1 - 12.3 fl 07/25/2018 11:10 AM [facility] HISTORICAL RESULTS Neut % 58.3 % 07/25/2018 11:10 AM [facility] HISTORICAL RESULTS Immature Gran % 0.2 % 8 11:10 AM [facility] HISTORICAL RESULTS Lymph % 29.9 % 07/25/2018 11:10 AM [employer] HISTORICAL RESULTS [place] % 8.0 % Eos % 3.1 % Baso % 0.5 % Absolute Neuts (auto) 4.8 1.7 - 6.5 x10 3/ul Immature Gran # 0.0 0.0 - 0.1 x10 3/ul Absolute Lymphs (auto) 2.4 0.8 - 3.3 x10 3/ul Absolute Monos (auto) 0.7 0.2 - 0.8 x10 3/ul Absolute Eos (auto) 0.3 0.0 - 0.5 x10 3/ul Absolute Basos (auto) 0.0 0.0 - 0.1 x10 3/ul Nucleat RBC Rel Count 0.0 #/100WBC Absolute Nucleated RBC 0.00 0.00 - 0.01 x10 3/ul Absolute Neutrophils 4800 200 - 8000 /ul 07/25/2018 11:0 2 AM TOOL DESIGNER 07/25/2018 11:08 AM TOOL DESIGNER us Deanna MAURICE LAB BLOOD ORDERABLES Fin al Result [facility] HISTORICAL RESULTS * XR Chest 1 View (07/25/2018 12:00 AM TOOL DESIGNER) Anatomical Region Laterality Modality Body, Chest N/A Radiographic Phuong ging 07/25/2018 Impressions 07/25/2018 11:31 AM TOOL DESIGNER ??No acute cardiopulmonary disease. THIS IS AN ELECTRONICALLY VERIFIED FINAL REPORT 07/25/2018 11:28 AM - Electronically signed by Yobani MOY D: ??07/25/2018 11:28 AM T: Report ID: [id number] Reading Location: ??[id number] [EOD] Narrative 07/25/2018 11:31 AM TOOL DESIGNER EXAM DESCRIPTION: ??Chest 1 View Portable REASON FOR STUDY: ??mid-sternal chest pain, cough, and sob with wheezing ??x 4-5 days TECHNIQUE: ??Frontal radiographic view of the chest acquired. COMPARISON: ??07/08/2015 FINDINGS: Heart size is normal. ??Vascularity is normal. ??Lungs are expanded and clear. Procedure Note ProviderAdry MD - 12/09/2020 EXAM DESCRIPTION: Chest 1 View Portable REASON FOR STUDY: mid-sternal chest pain, cough, and sob with wheezing x4-5 days TECHNIQUE: Frontal radiographic view of the chest acquired. COMPARISON: 07/08/2015 FINDINGS: Heart size is normal. Vascularity is normal. Lungs are expanded andclear. IMPRESSION: No acute cardiopulmonary disease. THIS IS AN ELECTRONICALLY VERIFIED FINAL REPORT 07/25/2018 11:28 AM - Electronically signed by Yobani MOY T: Report ID: [id number] Reading Location: [id number] [EOD] Deanna MAURICE IMG XR PROCEDURES Final Result documented in this encounter Visit Diagnoses Diagnosis Supraventricular tachycardia (HCC) Other specified cardiac dysrhythmias Other cholelithiasis without obstruction Obesity Obesity, unspecified documented in this encounter Care Teams Crop Setting Out Machine Operator Relationship Specialty Start Date End Date Baldomero Dominguez MD PCP - General 01/07/17 documented as of this encounter
--- OUTSIDE RECORDS SUMMARY | 2024-07-11 07:44 | XMS_ITS | Encounter Summary ---
Author Organization [facility] Healthcare Address [address] [place] [address] Care Team Providers Care Truck Driver Supervisor Name Role Phone Baldomero Dominguez MD Primary Care Provider [phone] Encounter Details Date Type Department Care Team (Latest Contact Info) Description 11/23/2017 9:00 AM CDT Hospital Encounter [facility] OP Deonte Monson MD [address] [facility] [address] [address] Supraventricular tachycardia (CMS/HCC); Family history of ischemic heart disease and other diseases of the circulatory system; Personal history of other diseases of the circulatory system Social History Tobacco Use Types Packs/Day Years Used Date Smoking Tobacco: Never Comments Unknown Sex and Gender Information Value Date Recorded Sex Assigned at Not on file Legal Sex Female 1:19 PM OCCUPANCY SPECIALIST Gender Identity Not on file Sexual Orientation Not on file documented as of this encounter Plan of Treatment Not on file documented as of this encounter Procedures Procedure Name Priority Date/Time Associated Diagnosis Comments CBC WITH AUTO DIFFERENTIAL Routine 11/23/2017 9:11 AM CDT TSH Routine 11/23/2017 9:11 AM CDT LIPID PANEL Routine 11/23/2017 9:11 AM CDT COMPREHENSIVE METABOLIC PANEL Routine 11/23/2017 9:11 AM CDT documented in this encounter Results * CBC with auto differential (11/23/2017 9:11 AM CDT) WBC 9.6 3.5 - 10.5 x10 3/ul 11/23/2017 9:47 AM CDT [employer] HISTORICAL RESULTS RBC 4.42 3.76 - 4.80 x10 6/ul 11/23/2017 9:47 AM CDT [employer] HISTORICAL RESULTS Hemoglobin 12.7 11.0 - 15.0 g/dL 11/23/2017 9:47 AM CDT [employer] HISTORICAL RESULTS Hct 38.2 33.0 - 43.0 % 11/23/2017 9:47 AM CDT [employer] HISTORICAL RESULTS MCV 86.4 80.0 - 97.0 fl 11/23/2017 9:47 AM CDT [employer] HISTORICAL RESULTS MCH 28.7 27.0 - 31.2 pg 11/23/2017 9:47 AM CDT [employer] HISTORICAL RESULTS MCHC 33.2 31.8 - 35.4 g/dl 11/23/2017 9:47 AM CDT [employer] HISTORICAL RESULTS RDW 13.7 11.6 - 14.8 % 11/23/2017 9:47 AM CDT [employer] HISTORICAL RESULTS Plt Count 347 150 - 450 X10 3/ul 11/23/2017 9:47 AM CDT [employer] HISTORICAL RESULTS MPV 10.4 7.4 - 10.4 fl 11/23/2017 9:47 AM CDT [employer] HISTORICAL RESULTS Neut % 69.1 37.0 - 85.0 % 11/23/2017 9:47 AM CDT [employer] HISTORICAL RESULTS Immature Gran % 0.2 0.0 - 3.0 % 11/23/2017 9:47 AM CDT [employer] HISTORICAL RESULTS Lymph % 20.9 5.0 - 45.0 % 11/23/2017 9:47 AM CDT [employer] HISTORICAL RESULTS Emmet % 7.6 3.0 - 15.0 % Eos % 1.6 0.0 - 7.0 % 11/23/2017 9:47 AM [facility] HISTORICAL RESULTS Baso % 0.6 0.0 - 2.0 % 11/23/2017 9:47 AM [facility] HISTORICAL RESULTS Absolute Neuts (auto) 6.7 1.7 - 8.7 x10 3/ul 11/23/2017 9:47 AM [facility] HISTORICAL RESULTS Immature Gran # 0.0 0.0 - 0.3 x10 3/ul Absolute Lymphs (auto) 2.0 0.2 - 4.6 x10 3/ul 11/23/2017 9:47 AM [facility] HISTORICAL RESULTS Absolute Monos (auto) 0.7 0.1 - 1.5 x10 3/ul 11/23/2017 9:47 AM [facility] HISTORICAL RESULTS Absolute Eos (auto) 0.2 0.0 - 0.7 x10 3/ul Absolute Basos (auto) 0.1 0.0 - 0.2 x10 3/ul 11/23/2017 9:47 AM [facility] HISTORICAL RESULTS Nucleat RBC Rel Count 0.0 0 - 3 #/100WBC 11/23/2017 9:47 AM [facility] HISTORICAL RESULTS Absolute Nucleated RBC 0.00 x10 3/ul 11/23/2017 9:47 AM [facility] HISTORICAL RESULTS Absolute Neutrophils 6700 200 - 8000 /ul 11/23/2017 9:47 AM [facility] HISTORICAL RESULTS 11/23/2017 9:11 AM CDT 11/23/2017 9:27 AM T Narrative [facility] HISTORICAL RESULTS - 11/23/2017 9:47 AM T 12 HOURS FASTING Deonte Monson MD LAB BLOOD ORDERABLES Ingris l Result [facility] HISTORICAL RESULTS * TSH (11/23/2017 9:11 AM CDT) TSH 1.55 0.27 - 4.20 uIU/mL 11/23/2017 10:32 AM [facility] HISTORICAL RESULTS 11/23/2017 9:11 AM CDT 11/23/2017 9:27 AM T [facility] HISTORICAL RESULTS - 11/23/2017 10:32 AM CDT 12 HOURS FASTING Deonte Monson MD LAB BLOOD ORDERABLES Ingris l Result Performing Organization Address [facility]/ZIP Co de Phone Number [facility] HISTORICAL RESULTS * Lipid panel (11/23/2017 9:11 AM CDT) Pathologist [facility] Triglycerides 47 0 - 199 mg/dL 11/23/2017 10:26 AM [facility] HISTORICAL RESULTS Comment:12 hr pc highly moreno mmended for Triglyceride Cholesterol 173 0 - 199 mg/dL 11/23/2017 10:26 AM [facility] HISTORICAL RESULTS Comment: Borderline: ??200-239 High Risk: ?? >239 HDL Cholesterol 45 mg/dL 8 10:26 AM [facility] HISTORICAL RESULTS Comment: Reference Ranges: ? Males: >=40 mg/dL ? Females: >=50 mg/dL LDL Cholesterol, Calc 119 0 - 130 mg/dL 11/23/2017 10:26 AM [facility] HISTORICAL RESULTS Comment:High Risk > 159 mg/d L Cholesterol/HDL Ratio 3.8 11/23/2017 10:26 AM [facility] HISTORICAL RESULTS Comment: Cholesterol / HDL Ratio 3.5:1 or less is desirable. Cholesterol / HDL Ratio greater than 5:1 is considered higher risk for developing heart disease. 11/23/2017 9:11 AM CDT 11/23/2017 9:27 AM [facility] HISTORICAL RESULTS - 11/23/2017 10:26 AM CDT 12 HOURS FASTING Deonte Monson MD LAB BLOOD ORDERABLES Ingris l Result Performing Organization Address [facility]/ZIP Co de Phone Number [facility] HISTORICAL RESULTS * Comprehensive metabolic panel (11/23/2017 9:11 AM [facility]) [facility] Signature Sodium 137 135 - 145 mmol/L 11/23/2017 10:26 AM [facility] HISTORICAL RESULTS Potassium 3.6 3.3 - 5.1 mmol/L 11/23/2017 10:26 AM [facility] HISTORICAL RESULTS Chloride 98 96 - 108 mmol/L 11/23/2017 10:26 AM [facility] HISTORICAL RESULTS Carbon Dioxide 27 22 - 32 mmol/L 11/23/2017 10:26 AM [facility] HISTORICAL RESULTS Anion Gap 12 7 - 16 11/23/2017 10:26 AM [facility] HISTORICAL RESULTS Glucose 97 70 - 100 mg/dL 11/23/2017 10:26 AM [facility] HISTORICAL RESULTS BUN 10 6 - 20 mg/dL 11/23/2017 10:26 AM [facility] HISTORICAL RESULTS Creatinine 0.6 0.5 - 1.1 mg/dL 11/23/2017 10:26 AM [facility] HISTORICAL RESULTS Comment: NOTE: Estimated GFR (Cockroft-Gault) will NOT be calculated unless patient Height and Weight were entered. Also, Kidney Disease Stage (GFR) and Estimated GFR (Cockroft-Gault) will NOT be calculated if Creatinine result is <0.2. Kidney Disease Stage > 90 mL/MIN 11/23/2017 10:26 AM [facility] HISTORICAL RESULTS Comment: NOTE; ??The GFR is [...] Kidney failure or on dialysis @ Calcium 8.7 8.6 - 10.0 mg/dL 11/23/2017 10:26 AM [facility] HISTORICAL RESULTS Total Protein 7.3 6.4 - 8.3 g/dL 11/23/2017 10:26 AM [facility] HISTORICAL RESULTS Albumin 4.0 3.5 - 5.2 g/dL 11/23/2017 10:26 AM [facility] HISTORICAL RESULTS Globulin 3.3 2.3 - 3.5 gm/dL 11/23/2017 10:26 AM [facility] HISTORICAL RESULTS Albumin/Globulin Ratio 1.2 1.1 - 1.8 11/23/2017 10:26 AM [facility] HISTORICAL RESULTS Total Bilirubin 0.4 0.0 - 1.2 mg/dL 11/23/2017 10:26 AM [facility] HISTORICAL RESULTS AST 16 0 - 32 U/L 11/23/2017 10:26 AM [facility] HISTORICAL RESULTS ALT 16 0 - 33 U/L 11/23/2017 10:26 AM [facility] HISTORICAL RESULTS Alkaline Phosphatase 62 35 - 104 U/L 11/23/2017 10:26 AM [facility] HISTORICAL RESULTS 11/23/2017 9:11 AM CDT 11/23/2017 9:27 AM [facility] Narrative [facility] HISTORICAL RESULTS - 11/23/2017 10:26 AM T 12 HOURS FASTING us Deonte Monson MD LAB BLOOD ORDERABLES Ingris l Result [facility] HISTORICAL RESULTS documented in this encounter Visit Diagnoses Diagnosis Supraventricular tachycardia (HCC) Other specified cardiac dysrhythmias Family history of ischemic heart disease and other diseases of the circulatory system Personal history of other diseases of the circulatory system documented in this encounter Care Teams Truck Driver Supervisor Relationship Specialty Start Date End Date Baldomero Dominguez MD PCP - General 01/07/17 documented as of this encounter
--- OUTSIDE RECORDS SUMMARY | 2024-07-11 07:44 | XMS_ITS | Encounter Summary ---
Author Organization [facility] Healthcare Address [address] [place] [address] Care Team Providers Care Manager Php Name Role Phone Baldomero Dominguez MD Primary Care Provider [phone] Encounter Details Date Type Department Care Team (Latest Contact Info) Description 05/25/2018 6:04 AM CDT Hospital Encounter [facility] OP Baldomero Dominguez MD [address] [place] [address] Iron deficiency anemia; Localized edema Social History Tobacco Use Types Packs/Day Years Used Date Smoking Tobacco: Never Comments Unknown Sex and Gender Information Value Date Recorded Sex Assigned at Not on file Legal Sex Female 1:19 PM RELAY ASSOCIATE Gender Identity Not on file Sexual Orientation Not on file documented as of this encounter Plan of Treatment Not on file documented as of this encounter Procedures Procedure Name Priority Date/Time Associated Diagnosis Comments THYROID PANEL Routine 05/25/2018 6:22 AM CDT IRON PROFILE W/ IBC Routine 05/25/2018 6 :22 AM CDT VITAMIN D 25 HYDROXY Routine 05/25/2018 6:22 AM CDT COMPREHENSIVE METABOLIC PANEL Routine 05/25/2018 6:22 AM CDT documented in this encounter Results * Thyroid Panel (05/25/2018 6:22 AM CDT) TSH 1.53 0.27 - 4.20 uIU/mL 05/25/2018 7:10 AM CDT [facility] HISTORICAL RESULTS Free T4 1.04 0.93 - 1.70 ng/dL 05/25/2018 7:10 AM CDT [facility] HISTORICAL RESULTS 05/25/2018 6:22 AM CDT 05/25/2018 6:35 AM CDT us Baldomero Dominguez MD LAB BLOOD ORDERABLES Final Resul t Performing Organization Address [facility]/ZIP Co de Phone Number [facility] HISTORICAL RESULTS * (ABNORMAL) Vitamin D 25 hydroxy (05/25/2018 6:22 AM CDT) 25-OH Vitamin D Total 24(L) 30 - 80 ng/mL 05/25/2018 7:47 AM CDT [facility] HISTORICAL RESULTS 05/25/2018 6:22 AM CDT 05/25/2018 6:35 AM CDT us Baldomero Dominguez MD LAB BLOOD ORDERABLES Final Resul t Performing Organization Address City/[facility]/ZIP Co de Phone Number [facility] HISTORICAL RESULTS * (ABNORMAL) Iron profile w/ IBC (05/25/2018 6:22 AM CDT) Iron 35(L) 37 - 145 ug/dL 05/25/2018 7:03 AM CDT [facility] HISTORICAL RESULTS TIBC 311 228 - 428 ug/dL 05/25/2018 7:03 AM CDT [facility] HISTORICAL RESULTS Transferrin % Sat 11(L) 20 - 50 % 05/25/2018 7:03 AM CDT [facility] HISTORICAL RESULTS 05/25/2018 6:22 AM CDT 05/25/2018 6:35 AM CDT us Baldomero Dominguez MD LAB BLOOD ORDERABLES Final Resul t [facility] HISTORICAL RESULTS * (ABNORMAL) Comprehensive metabolic panel (05/25/2018 6:22 AM CDT) Sodium 138 135 - 145 mmol/L Potassium 3.2(L) 3.3 - 5.1 mmol/L Chloride 98 96 - 108 mmol/L Carbon Dioxide 29 22 - 32 mmol/L Anion Gap 11 7 - 16 Glucose 122(H) 70 - 100 mg/dL BUN 14 6 - 20 mg/dL Creatinine 0.7 0.5 - 1.1 mg/dL Comment: NOTE: Estimated GFR (Cockroft-Gault) will NOT be calculated unless patient Height and Weight were entered. Also, Kidney Disease Stage (GFR) and Estimated GFR (Cockroft-Gault) will NOT be calculated if Creatinine result is <0.2. Kidney Disease Stage > 90 mL/MIN Comment: NOTE; ??The GFR is an estimated [...] @ Calcium 9.0 8.6 - 10.0 mg/dL Total Protein 7.1 6.4 - 8.3 g/dL Albumin 3.7 3.5 - 5.2 g/dL Globulin 3.4 2.3 - 3.5 gm/dL Albumin/Globulin Ratio 1.1 1.1 - 1.8 Total Bilirubin < 0.2 0.0 - 1.2 mg/dL AST 16 0 - 32 U/L ALT 22 0 - 33 U/L Alkaline Phosphatase 71 35 - 104 U/L 05/25/2018 6:22 AM CDT 05/25/2018 6:35 AM CDT us Baldomero Dominguez MD LAB BLOOD ORDERABLES Final Resul t [facility] HISTORICAL RESULTS documented in this encounter Visit Diagnoses Diagnosis Iron deficiency anemia Unspecified iron deficiency anemia Localized edema Edema documented in this encounter Care Teams Manager Php Relationship Specialty Start Date End Date Baldomero Dominguez MD PCP - General 01/07/17 documented as of this encounter
--- OUTSIDE RECORDS SUMMARY | 2024-07-11 07:44 | XMS_ITS | Encounter Summary ---
Author Organization [facility] Healthcare Address [address] [place] [address] Care Team Providers Care Director Of Business Systems Name Role Phone Baldomero Dominguez MD Primary Care Provider [phone] Encounter Details Date Type Department Care Team (Latest Contact Info) Description 05/30/2018 11:40 AM RUSSIAN HISTORY PROFESSOR Hospital Encounter [facility] OP Baldomero Dominguez MD [address] [place] [address] Encounter for screening mammogram for malignant neoplasm of breast Social History Tobacco Use Types Packs/Day Years Used Date Smoking Tobacco: Never Comments Unknown Sex and Gender Information Value Date Recorded Sex Assigned at Not on file Legal Sex Female 1:19 PM RUSSIAN HISTORY PROFESSOR Gender Identity Not on file Sexual Orientation Not on file documented as of this encounter Plan of Treatment Not on file documented as of this encounter Procedures Procedure Name Priority Date/Time Associated Diagnosis Comments SCREENING MAMMOGRAM BILATERAL W CARLOS Routine 05/30/2018 11:42 AM RUSSIAN HISTORY PROFESSOR GENERAL RADIOLOGY REPORT 05/30/2018 12:00 AM RUSSIAN HISTORY PROFESSOR documented in this encounter Results * Screening Mammogram Bilateral W Carlos (05/30/2018 11:42 AM RUSSIAN HISTORY PROFESSOR) Anatomical Region Laterality Modality Breast Bilateral Mammography 05/30/2018 11:4 2 AM RUSSIAN HISTORY PROFESSOR Impressions 05/30/2018 1:36 PM RUSSIAN HISTORY PROFESSOR BI-RAD 2 ??BENIGN There is no mammographic evidence of malignancy. A 1 year screening mammogram is recommended. ?? The patient has been or will be contacted. ?? The patient will be entered into a reminder system with a target due date of 1 year for her next screening exam. Electronically signed by: Hernán Townsend M.D., md/:05/30/2018 13:34:56 ?? Hot Blaster: Lorie Erickson, [facility] letter sent: Normal Exam ?? Reading location: [facility] BI-RADS: 2 Benign [EOD] Narrative 05/30/2018 1:36 PM RUSSIAN HISTORY PROFESSOR - MG BILATERAL DIGITAL SCREENING MAMMOGRAM 3D/2D [...] dated: ??08/18/2013 mammogram/ultrasound and 08/11/2013 mammogram - [facility]. ?? BREAST TISSUE: The tissue of both [...] exams dated: 08/18/2013mammogram/ultrasound and 08/11/2013 mammogram - [facility]. BREAST TISSUE: The tissue of both [...] signed by: Hernán Townsend M.D., md/:05/30/2018 13:34:56 Hot Blaster: Lorie Erickson, [facility] letter sent: Normal Exam Reading location: [facility] BI-RADS: 2 Benign [EOD] Baldomero ESPARZA MAMMO PROCEDURES Final Resul t * GENERAL RADIOLOGY REPORT (05/30/2018 12:00 AM RUSSIAN HISTORY PROFESSOR) Anatomical Region Laterality Modality Radiographic Phuong ging Narrative 05/30/2018 12:00 AM RUSSIAN HISTORY PROFESSOR Ordered by an unspecified provider. Historical Provider MD ESPARZA XR PROCEDURES Final R esult documented in this encounter Visit Diagnoses Diagnosis Encounter for screening mammogram for malignant neoplasm of breast documented in this encounter Care Teams Director Of Business Systems Relationship Specialty Start Date End Date Baldomero Dominguez MD PCP - General 01/07/17 documented as of this encounter
--- OUTSIDE RECORDS SUMMARY | 2024-07-11 07:44 | XMS_ITS | Encounter Summary ---
Author Organization [facility] Healthcare Address [address] [place] [address] Care Team Providers Care Numerical Control Nesting Operator Name Role Phone Unavailable Primary Care Provider Unavailabl e Encounter Details Date Type Department Care Team (Late st Contact Info) Description 09/16/2016 9:34 AM RECREATIONAL THERAPIST Hospital Encounter [facility] OP Guanaco Pineda MD [address] [place] [address] Low back pain Social History Tobacco Use Types Packs/Day Years Used Date Smoking Tobacco: Never Comments Unknown Sex and Gender Information Value Date Recorded Sex Assigned at Not on file Legal Sex Female 1:19 PM RECREATIONAL THERAPIST Gender Identity Not on file Sexual Orientation Not on file documented as of this encounter Plan of Treatment Not on file documented as of this encounter Procedures Procedure Name Priority Date/Time Associated Diagnosis Comments XR SPINE LUMBAR 2 OR 3 VIEWS Routine 09/16/2016 9:36 AM RECREATIONAL THERAPIST documented in this encounter Results * XR Spine Lumbar 2 or 3 Views (09/16/2016 9:36 AM RECREATIONAL THERAPIST) Anatomical Region Laterality Modality Spine N/A Radiographic Phuong ging 09/16/2016 9:36 AM RECREATIONAL THERAPIST Impressions 09/16/2016 10:50 AM RECREATIONAL THERAPIST 1. No acute fracture THIS IS AN ELECTRONICALLY VERIFIED REPORT 09/16/2016 10:47 AM: ??Andrew Gonzalez M.D. ?? Andrew Gonzalez M.D. OR:pr 10:47 AM 10:47 AM PAH [EOD] Narrative 09/16/2016 10:50 AM RECREATIONAL THERAPIST EXAMINATION: Lumbar spine two or three-views HISTORY: Fall onto back 1 week ago. ??Low back pain. COMPARISON: None FINDINGS: 3 views of the lumbar spine are submitted. ??Alignment is normal. ?? There is mild degenerative disc space narrowing L5-S1. ??There is facet joint osteoarthritis at the lumbosacral junction. ??No acute fracture is seen. Procedure Note Provider, MD Adry - 12/09/2020 EXAMINATION: Lumbar spine two or three-views HISTORY: Fall onto back 1 week ago. Low back pain. COMPARISON: None FINDINGS: 3 views of the lumbar spine are submitted. Alignment is normal. There is mild degenerative disc space narrowing L5-S1. There is facetjoint osteoarthritis at the lumbosacral junction. No acute fracture is seen. IMPRESSION: 1. No acute fracture THIS IS AN ELECTRONICALLY VERIFIED REPORT 09/16/2016 10:47 AM: Andrew Gonzalez M.D. Andrew Gonzalez M.D. OR:pr 10:47 AM 10:47 AM PAH [EOD] Guanaco Pineda MD IMG XR PROCEDURES Final Re sult documented in this encounter Visit Diagnoses Diagnosis Low back pain Lumbago documented in this encounter
--- OUTSIDE RECORDS SUMMARY | 2024-07-11 07:44 | XMS_ITS | Encounter Summary ---
Author Organization [facility] Healthcare Address [address] [place] [address] Care Team Providers Care Director Of Field Service Name Role Phone Baldomero Dominguez MD Primary Care Provider [phone] Encounter Details Date Type Department Care Team (Late st Contact Info) Description 05/12/2018 1:45 PM CDT Hospital Encounter 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
--- OUTSIDE RECORDS SUMMARY | 2024-07-11 07:45 | XMS_ITS | Encounter Summary ---
Author Organization [facility] Healthcare Address [address] [place] [address] Care Team Providers Care Welder Setter Electron Beam Machine Name Role Phone Unavailable Primary Care Provider Unavailabl e Encounter Details Date Type Department Care Team (Latest Contact Info) Description 06/25/2016 2:45 PM ARCH CUSHION SKIVING MACHINE OPERATOR - 07/25/2016 2:45 PM ARCH CUSHION SKIVING MACHINE OPERATOR Hospital Encounter [facility] OP Baldomero Dominguez MD [address] [place] [address] Anemia; Other fatigue Social History Tobacco Use Types Packs/Day Years Used Date Smoking Tobacco: Never Comments Unknown Sex and Gender Information Value Date Recorded Sex Assigned at Not on file Legal Sex Female 1:19 PM ARCH CUSHION SKIVING MACHINE OPERATOR Gender Identity Not on file Sexual Orientation Not on file documented as of this encounter Plan of Treatment Not on file documented as of this encounter Procedures Procedure Name Priority Date/Time Associated Diagnosis Comments OCCULT BLOOD, FECAL (FIT) Routine 06/23/2016 6:06 PM ARCH CUSHION SKIVING MACHINE OPERATOR documented in this encounter Results * Occult blood, fecal non neoplasm screening (06/23/2016 6:06 PM ARCH CUSHION SKIVING MACHINE OPERATOR) Stool Occult Blood NEGATIVE NEGATIVE 06/25/2016 3:33 PM ARCH CUSHION SKIVING MACHINE OPERATOR [facility] HISTORICAL RESULTS 06/23/2016 6:06 PM ARCH CUSHION SKIVING MACHINE OPERATOR 06/25/2016 2:52 PM ARCH CUSHION SKIVING MACHINE OPERATOR us Baldomero Dominguez MD LAB BODY FLUIDS AND STOOLS ORDER NICOLE Final Result [facility] HISTORICAL RESULTS documented in this encounter Visit Diagnoses Diagnosis Anemia Unspecified anemia Other fatigue documented in this encounter
--- OUTSIDE RECORDS SUMMARY | 2024-07-11 07:45 | XMS_ITS | Encounter Summary ---
Author Organization [facility] Healthcare Address [address] [place] [address] Care Team Providers Care Sales Agent Marine Insurance Name Role Phone Unavailable Primary Care Provider Unavailabl e Encounter Details Date Type Department Care Team (Latest Contact Info) Description 10/22/2014 9:32 AM CDT - 10/22/2014 2:54 PM CDT Hospital Encounter [facility] Akbar Matt MD [address] [place] [address] Calculus of gallbladder; Umbilical hernia Social History Tobacco Use Types Packs/Day Years Used Date Smoking Tobacco: Never Assessed Comments Unknown Sex and Gender Information Value Date Recorded Sex Assigned at Not on file 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 Gender Identity Not on file Sexual Orientation Not on file documented as of this encounter Last Filed Vital Signs Vital Sign Reading Time Taken Comments Blood Pressure 117/50 10/22/2014 9:34 AM CDT Pulse 85 10/22/2014 9:34 AM CDT Temperature 36.8 ??C (98.3 ??F) 10/22/2014 9:34 AM CD T Respiratory Rate - - Oxygen Saturation 99% 10/22/2014 9:34 AM CDT Inhaled Oxygen Concentration - - Weight 117.9 kg (260 lb) 10/22/2014 9:34 AM CDT Height 167.6 cm (5' 6 ) 10/22/2014 9:34 AM CDT Body Mass Index 41.97 10/22/2014 9:34 AM CDT documented in this encounter Plan of Treatment Not on file documented as of this encounter Procedures Procedure Name Priority Date/Time Associated Diagnosis Comments LIPASE Routine 10/22/2014 12:27 PM CDT COMPREHENSIVE METABOLIC PANEL Routine 10/22/2014 12:27 PM CDT UA WITH CULTURE REFLEX Routine 5 10:45 AM CDT CBC WITH AUTO DIFFERENTIAL Routine 10/22/2014 10:[address] ABDOMEN PELVIS W CONTRAST Routine 10/22/2014 10:07 AM CDT documented in this encounter Results * Lipase (10/22/2014 12:27 PM CDT) Lipase 22 13 - 60 U/L 10/22/2014 12:2 7 PM CDT 10/22/2014 12:34 PM CDT Malachi Clark kirsty LAB BLOOD ORDERABLES Ingris l Result [facility] HISTORICAL RESULTS * (ABNORMAL) Comprehensive metabolic panel (10/22/2014 12:27 PM CDT) Sodium 138 135 - 145 mmol/L Potassium 4.3 3.3 - 5.1 mmol/L Chloride 102 96 - 108 mmol/L Carbon Dioxide 23 22 - 32 mmol/L Anion Gap 13 7 - 16 Glucose 84 70 - 100 mg/dL Comment:As of June 27 14 new normal range in use. BUN 12 6 - 20 mg/dL Creatinine 0.5 0.5 - 1.1 mg/dL Kidney Disease Stage > 90 mL/MIN Comment: NOTE; ??The GFR is an estimated value using the creatinine, sex, age, and race of the patient. THE ESTIMATED GFR IS VALIDATED FOR AGES 18-70 YEARS STAGE ?mL/Min ?DESCRIPTION ??1 ?90 mL/min or more ?Normal or elevated GFR ??2 ? 60-89 mL/min ?Mildly decreased GFR ??3 ? 30-59 mL/min ?Moderately decreased GFR ??4 ? 15-29 mL/min ?Severely decreased GFR ??5 ? <15 mL/min ? Kidney failure or on dialysis @ Calcium 8.4(L) 8.6 - 10.0 mg/dL Total Protein 7.0 6.4 - 8.3 g/dL Albumin 3.5 3.5 - 5.2 g/dL Globulin 3.5 2.3 - 3.5 gm/dL Albumin/Globulin Ratio 1.0(L) 1.1 - 1.8 Total Bilirubin 0.4 0.0 - 1.2 mg/dL AST 14 0 - 32 U/L ALT 13 0 - 33 U/L Alkaline Phosphatase 52 35 - 104 U/L 10/22/2014 12:2 7 PM CDT 10/22/2014 12:34 PM CDT us Malachi Santos LAB BLOOD ORDERABLES Ingris galvez Result [facility] HISTORICAL RESULTS * UA with Culture Reflex (10/22/2014 10:45 AM CDT) Ur Collection Type CLEAN CATCH Ur Culture Indicated? C&S NOT INDICATED Urine Color STRAW YELLOW Urine Clarity CLEAR CLEAR Urine Glucose (UA) NORMAL NORMAL mg/dL Urine Bilirubin NEGATIVE NEGATIVE mg/dl Urine Ketones NEGATIVE NEGATIVE mg/dL Ur Specific [place] 1.019 1.005 - 1.025 Urine Blood NEGATIVE NEGATIVE mg/dl Urine pH 6.0 5.0 - 8.0 Urine Protein NEGATIVE NEGATIVE mg/dL Urine Urobilinogen NORMAL NORMAL mg/dL Urine Nitrite NEGATIVE NEGATIVE Ur Leukocyte Esterase NEGATIVE NEGATIVE Montez/ul Ur Microscopic Review Not Indicated 10/22/2014 10:4 5 AM CDT 10/22/2014 10:51 AM CDT Narrative [facility] HISTORICAL RESULTS - 10/22/2014 11:00 AM CDT Collected By gl Malachi Santos LAB URINE ORDERABLES Ingris galvez Result [facility] HISTORICAL RESULTS * (ABNORMAL) CBC with auto differential (10/22/2014 10:14 AM CDT) WBC 13.5(H) 4.6 - 10.2 x10 3/ul RBC 4.63 3.76 - 4.80 x10 6/ul Hemoglobin 10.9(L) 11.0 - 15.0 g/dl Hct 34.1 33.0 - 43.0 % MCV 73.7(L) 80.0 - 97.0 fl MCH 23.5(L) 27.0 - 31.2 pg MCHC 32.0 31.8 - 35.4 g/dl RDW 18.5(H) 11.6 - 14.8 % Plt Count 383 124 - 400 x10 3/ul MPV 9.5 7.4 - 10.4 fl Differential Method AUTOMATED DIFF --------- -- Neut % 83.7 37.0 - 85.0 % Immature Gran % 0.3 0.0 - 3.0 % Lymph % 9.1 5.0 - 45.0 % Freestone % 5.2 3.0 - 15.0 % Eos % 1.4 0.0 - 7.0 % Baso % 0.3 0.0 - 2.0 % ABSOLUTE COUNTS ABSOLUTE COUNTS --------- -- Absolute Neuts (auto) 11.3(H) 1.7 - 8.7 x10 3/ul Immature Gran # 0.0 0.0 - 0.3 x10 3/ul Absolute Lymphs (auto) 1.2 0.2 - 4.6 x10 3/ul Absolute Monos (auto) 0.7 0.1 - 1.5 x10 3/ul Absolute Eos (auto) 0.2 0.0 - 0.7 x10 3/ul Absolute Basos (auto) 0.0 0.0 - 0.2 x10 3/ul 10/22/2014 10:1 4 AM CDT 10/22/2014 10:17 AM CDT Narrative [facility] HISTORICAL RESULTS - 10/22/2014 10:21 AM CDT Line Draw by RN ?? Line draw performed by:ANGELINE RN ?? us Malachi Santos LAB BLOOD ORDERABLES Ingris l Result [facility] HISTORICAL RESULTS * CT Abdomen Pelvis W Contrast (10/22/2014 10:07 AM CDT) Anatomical Region Laterality Modality Body N/A Computed Tomogra phy 10/22/2014 10:0 7 AM CDT Impressions 10/22/2014 2:11 PM CDT 1. ??No acute appearing abdominal-pelvic abnormality is evident. 2. ??Cholelithiasis. ??No CT evidence of acute cholecystitis. 3. ??Small fat-containing umbilical hernia. THIS IS AN ELECTRONICALLY VERIFIED REPORT 10/22/2014 2:07 PM: ??Hernán Townsend M.D. Hernán Townsend M.D. MD: 02:07 PM 02:07 PM [facility] [EOD] Narrative 10/22/2014 2:11 PM CDT EXAMINATION: ??CT abdomen and pelvis with IV contrast HISTORY: ??49-year-old female with right upper quadrant abdominal pain. TECHNIQUE: ??CT of the abdomen and pelvis was performed with IV contrast. ??100 mL of Omnipaque 350 was instilled intravenously into the left antecubital fossa without complications. COMPARISON: ??CT abdomen/pelvis 09/17/2014 FINDINGS: ?? The imaged lung bases are clear. A calcified gallstone is again seen within the gallbladder lumen. ??No pericholecystic fluid or gallbladder wall thickening is identified. ??The liver, spleen, pancreas, adrenals, and kidneys appear unremarkable. Evaluation of the stomach and bowel limited by lack of ingested contrast. ?? There is a small fat-containing umbilical hernia. No bowel dilatation or other findings suggestive of bowel obstruction are identified. ??No ascites, pneumoperitoneum, or size significant lymphadenopathy is identified. ??The uterus and ovaries appear grossly stable/unremarkable, as does the urinary bladder. The imaged aorta is normal in caliber. Bone windows demonstrate mild multilevel endplate degenerative changes of the imaged thoracolumbar spine. ?? No acute appearing osseous abnormality is seen. ??There is a stable appearing 6 mm hyperdensity within the left iliac bone (series 3, image 115), most likely a bone island. Procedure Note Provider, MD Adry - 12/09/2020 EXAMINATION: CT abdomen and pelvis with IV contrast HISTORY: 49-year-old female with right upper quadrant abdominal pain. TECHNIQUE: CT of the abdomen and pelvis was performed with IV contrast.100 mL of Omnipaque 350 was instilled intravenously into the left antecubital fossa without complications. COMPARISON: CT abdomen/pelvis 09/17/2014 FINDINGS: The imaged lung bases are clear. A calcified gallstone is again seen within the gallbladder lumen. No pericholecystic fluid or gallbladder wall thickening is identified. The liver, spleen, pancreas, adrenals, and kidneys appear unremarkable. Evaluation of the stomach and bowel limited by lack of ingested contrast. There is a small fat-containing umbilical hernia. No bowel dilatation orother findings suggestive of bowel obstruction are identified. No ascites, pneumoperitoneum, or size significant lymphadenopathy is identified. The uterus and ovaries appear grossly stable/unremarkable, as does the urinary bladder. The imaged aorta is normal in caliber. Bone windows demonstrate mild multilevel endplate degenerative changes of the imaged thoracolumbarspine. No acute appearing osseous abnormality is seen. There is a stableappearing 6 mm hyperdensity within the left iliac bone (series 3, image 115), mostlikely a bone island. IMPRESSION: 1. No acute appearing abdominal-pelvic abnormality is evident. 2. Cholelithiasis. No CT evidence of acute cholecystitis. 3. Small fat-containing umbilical hernia. THIS IS AN ELECTRONICALLY VERIFIED REPORT 10/22/2014 2:07 PM: Hernán Townsend M.D. Hernán Townsend M.D. MD: 02:07 PM 02:07 PM [facility] [EOD] Malachi Santos [facility] CT PROCEDURES Final R esult documented in this encounter Visit Diagnoses Diagnosis Calculus of gallbladder Calculus of gallbladder without mention of cholecystitis or obstruction Umbilical hernia Umbilical hernia without mention of obstruction or gangrene documented in this encounter
--- OUTSIDE RECORDS SUMMARY | 2024-07-11 07:45 | XMS_ITS | Encounter Summary ---
Author Organization [facility] Healthcare Address [address] [place] [address] Care Team Providers Care Experimental Technician Name Role Phone Unavailable Primary Care Provider Unavailabl e Encounter Details Date Type Department Care Team (Latest Contact Info) Description 06/23/2016 7:22 AM STRATEGIC SOURCING MANAGER - 06/24/2016 7:22 AM STRATEGIC SOURCING MANAGER Hospital Encounter [facility] Baldomero Hong MD [address] [place] [address] Other specified anemias; Other fatigue Social History Tobacco Use Types Packs/Day Years Used Date Smoking Tobacco: Never Comments Unknown Sex and Gender Information Value Date Recorded Sex Assigned at Not on file Legal Sex Female 1:19 PM STRATEGIC SOURCING MANAGER Gender Identity Not on file Sexual Orientation Not on file documented as of this encounter Plan of Treatment Not on file documented as of this encounter Procedures Procedure Name Priority Date/Time Associated Diagnosis Comments THYROID PANEL Routine 06/23/2016 7:38 AM STRATEGIC SOURCING MANAGER COMPREHENSIVE METABOLIC PANEL Routine 06/23/2016 7:38 AM STRATEGIC SOURCING MANAGER URINALYSIS Routine 06/23/2016 7:25 AM STRATEGIC SOURCING MANAGER documented in this encounter Results * Thyroid Panel (06/23/2016 7:38 AM STRATEGIC SOURCING MANAGER) TSH 1.83 0.27 - 4.20 uIU/mL Free T4 1.01 0.93 - 1.70 ng/dL 06/23/2016 7:38 AM STRATEGIC SOURCING MANAGER 06/23/2016 7:51 AM [facility] us Baldomero Dominguez MD LAB BLOOD ORDERABLES Final Resul t [facility] HISTORICAL RESULTS * (ABNORMAL) Comprehensive metabolic panel (06/23/2016 7:38 AM [facility]) Pathologist [facility] Sodium 141 135 - 145 mmol/L Potassium 3.7 3.3 - 5.1 mmol/L Chloride 103 96 - 108 mmol/L Carbon Dioxide 23 22 - 32 mmol/L Anion Gap 15 7 - 16 Glucose 111(H) 70 - 100 mg/dL BUN 10 6 - 20 mg/dL Creatinine 0.6 0.5 - 1.1 mg/dL Comment: NOTE: Estimated [...] Kidney failure or on dialysis @ Calcium 8.6 8.6 - 10.0 mg/dL 06/23/2016 8:28 AM [facility] HISTORICAL RESULTS Total Protein 7.3 6.4 - 8.3 g/dL 06/23/2016 8:28 AM [place] [facility] [employer] HISTORICAL RESULTS Albumin 3.7 3.5 - 5.2 g/dL 06/23/2016 8:28 AM STRATEGIC SOURCING MANAGER [facility] [employer] HISTORICAL RESULTS Globulin 3.6(H) 2.3 - 3.5 gm/dL 06/23/2016 8:28 AM STRATEGIC SOURCING MANAGER [facility] [employer] HISTORICAL RESULTS Albumin/Globulin Ratio 1.0(L) 1.1 - 1.8 06/23/2016 8:28 AM STRATEGIC SOURCING MANAGER [facility] [employer] HISTORICAL RESULTS Total Bilirubin 0.2 0.0 - 1.2 mg/dL 06/23/2016 8:28 AM [facility] HISTORICAL RESULTS AST 13 0 - 32 U/L 06/23/2016 8:28 AM [facility] HISTORICAL RESULTS ALT 14 0 - 33 U/L 06/23/2016 8:28 AM [place] [facility] [employer] HISTORICAL RESULTS Alkaline Phosphatase 65 35 - 104 U/L 06/23/2016 8:28 AM [place] [facility] [employer] HISTORICAL RESULTS 06/23/2016 7:38 AM STRATEGIC SOURCING MANAGER 06/23/2016 7:51 AM STRATEGIC SOURCING MANAGER us Baldomero Dominguez MD LAB BLOOD ORDERABLES Final Resul t Performing Organization Address City/[facility]/ZIP Co de Phone Number [facility] [employer] [facility] HISTORICAL RESULTS * Urinalysis (06/23/2016 7:25 AM STRATEGIC SOURCING MANAGER) Ur Collection Type CLEAN CATCH 06/23/2016 8:23 AM [facility] [employer] HISTORICAL RESULTS Urine Color YELLOW YELLOW 06/23/2016 8:23 AM [facility] [employer] HISTORICAL RESULTS Urine Clarity CLEAR CLEAR 06/23/2016 8:23 AM STRATEGIC SOURCING MANAGER [facility] [employer] HISTORICAL RESULTS Urine Glucose (UA) NORMAL NORMAL mg/dL 06/23/2016 8:23 AM [facility] [employer] HISTORICAL RESULTS Urine Bilirubin NEGATIVE NEGATIVE mg/dl 06/23/2016 8:23 AM [facility] HISTORICAL RESULTS Urine Ketones NEGATIVE NEGATIVE mg/dL 06/23/2016 8:23 AM [facility] [employer] HISTORICAL RESULTS Ur Specific [place] 1.024 1.005 - 1.025 06/23/2016 8:23 AM STRATEGIC SOURCING MANAGER [facility] [employer] HISTORICAL RESULTS Urine Blood NEGATIVE NEGATIVE mg/dl 06/23/2016 8:23 AM [facility] HISTORICAL RESULTS Urine pH 6.0 5.0 - 8.0 06/23/2016 8:23 AM [facility] [employer] HISTORICAL RESULTS Urine Protein NEGATIVE NEGATIVE mg/dL 06/23/2016 8:23 AM [facility] [employer] HISTORICAL RESULTS Urine Urobilinogen NORMAL NORMAL mg/dL 06/23/2016 8:23 AM [facility]ISTOR[facility] RESULTS Urine Nitrite NEGATIVE NEGATIVE 06/23/2016 8:23 AM [facility] [place] HISTORICAL RESULTS Ur Leukocyte Esterase NEGATIVE NEGATIVE Montez/ul 06/23/2016 8:23 AM [facility] HISTORICAL RESULTS Ur Microscopic Review Not Indicated 06/23/2016 8:23 AM [facility] HISTORICAL RESULTS 06/23/2016 7:25 AM STRATEGIC SOURCING MANAGER 06/23/2016 8:14 AM STRATEGIC SOURCING MANAGER Narrative [facility] [employer] HISTORICAL RESULTS - 06/23/2016 8:23 AM STRATEGIC SOURCING MANAGER us Baldomero Dominguez MD LAB URINE ORDERABLES Final Resul t Performing Organization Address City/[facility]/ZIP Co de Phone Number [facility] [employer] [facility] HISTORICAL RESULTS documented in this encounter Visit Diagnoses Diagnosis Other specified anemias Other fatigue documented in this encounter
--- OUTSIDE RECORDS SUMMARY | 2024-07-11 07:45 | XMS_ITS | Encounter Summary ---
Author Organization [facility] Healthcare Address [address] [place] [address] Care Team Providers Care New Patient Escort Name Role Phone Unavailable Primary Care Provider Unavailabl e Encounter Details Date Type Department Care Team (Latest Contact Info) Description 07/23/2015 1:25 PM GLASS CUT OFF TENDER Hospital Encounter [facility] Baldomero Dominguez MD [address] [place] [address] Anemia; Encounter for general adult medical examination without abnormal findings Social History Tobacco Use Types Packs/Day Years Used Date Smoking Tobacco: Never Assessed Comments Unknown Sex and Gender Information Value Date Recorded Sex Assigned at Not on file Legal Sex Female 1:19 PM GLASS CUT OFF TENDER Gender Identity Not on file Sexual Orientation Not on file documented as of this encounter Plan of Treatment Not on file documented as of this encounter Procedures Procedure Name Priority Date/Time Associated Diagnosis Comments THYROID PANEL Routine 07/23/2015 1:38 PM GLASS CUT OFF TENDER IRON PROFILE W/ IBC Routine 07/23/2015 1 :38 PM GLASS CUT OFF TENDER HEMOGLOBIN A1C Routine 07/23/2015 1:38 PM GLASS CUT OFF TENDER LIPID PANEL Routine 07/23/2015 1:38 PM GLASS CUT OFF TENDER COMPREHENSIVE METABOLIC PANEL Routine 07/23/2015 1:38 PM GLASS CUT OFF TENDER URINALYSIS, MACRO AND MICRO Routine 07/23/2015 1:26 PM GLASS CUT OFF TENDER documented in this encounter Results * (ABNORMAL) Iron profile w/ IBC (07/23/2015 1:38 PM GLASS CUT OFF TENDER) Pathologist [facility] Iron 18(L) 37 - 145 ug/dL Comment:Fasting specimen pre ferred TIBC 374 228 - 428 ug/dL Transferrin % Sat 5(L) 20 - 50 % 07/23/2015 1:38 PM GLASS CUT OFF TENDER 07/23/2015 1:40 PM GLASS CUT OFF TENDER us Baldomero Dominguez MD LAB BLOOD ORDERABLES Final Resul t Performing Organization Address [facility]/ZIP Co de Phone Number [facility] HISTORICAL RESULTS * Thyroid Panel (07/23/2015 1:38 PM GLASS CUT OFF TENDER) [facility] TSH 1.18 0.27 - 4.20 uIU/mL Free T4 1.02 0.93 - 1.70 ng/dL 07/23/2015 1:38 PM GLASS CUT OFF TENDER 07/23/2015 1:40 PM GLASS CUT OFF TENDER us Baldomero Dominguez MD LAB BLOOD ORDERABLES Final Resul t [facility] HISTORICAL RESULTS * Hemoglobin A1c (07/23/2015 1:38 PM GLASS CUT OFF TENDER) [facility] Hemoglobin A1c % 5.4 4.8 - 5.9 % Comment: [place] [employer] recommends that the goal of therapy should be an A1C hemoglobin of <7%. Reevaluate the treatment regimen in patients with an A1C >8%. 07/23/2015 1:38 PM GLASS CUT OFF TENDER 07/23/2015 1:40 PM GLASS CUT OFF TENDER us Baldomero Dominguez MD LAB BLOOD ORDERABLES Final Resul t Performing Organization Address [facility] de Phone Number [facility] HISTORICAL RESULTS * Lipid panel (07/23/2015 1:38 PM GLASS CUT OFF TENDER) Triglycerides 78 0 - 199 mg/dL Comment:12 hr pc highly moreno mmended for Triglyceride Cholesterol 162 0 - 199 mg/dL Comment: Borderline: ??200-239 High Risk: ?? >239 HDL Cholesterol 44 40 - 60 mg/dL Comment: Major Risk ?< 40 mg/dL Moderate Risk ?40-60 mg/dL Negative Risk ?? > 60 mg/dL LDL Cholesterol, Calc 102 0 - 130 mg/dL Comment:High Risk > 159 mg/d L Cholesterol/HDL Ratio 3.7 Comment: Cholesterol / HDL Ratio 3.5:1 or less is desirable. Cholesterol / HDL Ratio greater than 5:1 is considered higher risk for developing heart disease. 07/23/2015 1:38 PM GLASS CUT OFF TENDER 07/23/2015 1:40 PM GLASS CUT OFF TENDER us Baldomero Dominguez MD LAB BLOOD ORDERABLES Final Resul t Performing Organization Address [facility] Phone Number [facility] HISTORICAL RESULTS * (ABNORMAL) Comprehensive metabolic panel (07/23/2015 1:38 PM GLASS CUT OFF TENDER) Sodium 139 135 - 145 mmol/L Potassium 3.8 3.3 - 5.1 mmol/L Chloride 102 96 - 108 mmol/L Carbon Dioxide 28 22 - 32 mmol/L Anion Gap 9 7 - 16 Glucose 101(H) 70 - 100 mg/dL BUN 12 6 - 20 mg/dL Creatinine 0.6 0.5 [...] Kidney failure or on dialysis @ Calcium 8.8 8.6 - 10.0 mg/dL Total Protein 7.3 6.4 - 8.3 g/dL Albumin 3.9 3.5 - 5.2 g/dL Globulin 3.4 2.3 - 3.5 gm/dL Albumin/Globulin Ratio 1.1 1.1 - 1.8 Total Bilirubin 0.2 0.0 - 1.2 mg/dL AST 14 0 - 32 U/L ALT 14 0 - 33 U/L Alkaline Phosphatase 61 35 - 104 U/L 07/23/2015 1:38 PM GLASS CUT OFF TENDER 07/23/2015 1:40 PM GLASS CUT OFF TENDER us Baldomero Dominguez MD LAB BLOOD ORDERABLES Final Resul t [facility] HISTORICAL RESULTS * (ABNORMAL) Urinalysis, macro and micro (07/23/2015 1:26 PM GLASS CUT OFF TENDER) Ur Collection Type CLEAN CATCH Urine Color STRAW YELLOW Urine Clarity CLEAR CLEAR Urine Glucose (UA) NORMAL NORMAL mg/dL Urine Bilirubin NEGATIVE NEGATIVE mg/dl Urine Ketones NEGATIVE NEGATIVE mg/dL Ur Specific [place] 1.027(H) 1.005 - 1.025 Urine Blood 0.2(H) NEGATIVE mg/dl Urine pH 5.5 5.0 - 8.0 Urine Protein NEGATIVE NEGATIVE mg/dL Urine Urobilinogen NORMAL NORMAL mg/dL Urine Nitrite NEGATIVE NEGATIVE Ur Leukocyte Esterase 75(H) NEGATIVE Montez/ul Ur Microscopic Review Indicated or Ordered Urine RBC 2 0 - 2 /HPF Urine WBC 4 0 - 2 /HPF Urine Mucus Few /LPF Ur Squamous Epith Cells Rare /HPF 07/23/2015 1:26 PM GLASS CUT OFF TENDER 07/23/2015 2:46 PM GLASS CUT OFF TENDER Narrative [facility] HISTORICAL RESULTS - 07/23/2015 2:59 PM GLASS CUT OFF TENDER us Baldomero Dominguez MD LAB URINE ORDERABLES Final Resul t [facility] HISTORICAL RESULTS documented in this encounter Visit Diagnoses Diagnosis Anemia Unspecified anemia Encounter for general adult medical examination without abnormal findings documented in this encounter
--- OUTSIDE RECORDS SUMMARY | 2024-07-11 07:45 | XMS_ITS | Encounter Summary ---
Author Organization [facility] Healthcare Address [address] [place] [address] Care Team Providers Care Tax Technician Name Role Phone Unavailable Primary Care Provider Unavailabl e Encounter Details Date Type Department Care Team (Latest Contact Info) Description 11/14/2014 11:07 AM CDT - 11/14/2014 5:21 PM CDT Hospital Encounter [facility] OP Callie Chavira MD [address] [place] [address] [id number] Calculus of gallbladder with other cholecystitis Social History Tobacco Use Types Packs/Day Years Used Date Smoking Tobacco: Never Assessed Comments Unknown Sex and Gender Information Value Date Recorded Sex Assigned at Not on file 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 Gender Identity Not on file Sexual Orientation Not on file documented as of this encounter Last Filed Vital Signs Vital Sign Reading Time Taken Comments Blood Pressure 131/66 11/14/2014 11:30 AM CDT Pulse 60 11/14/2014 11:30 AM CDT Temperature 36.6 ??C (97.8 ??F) 11/14/2014 11:30 AM C DT Respiratory Rate - - Oxygen Saturation 93% 11/14/2014 11:30 AM CDT Inhaled Oxygen Concentration - - Weight 117.5 kg (259 lb) 11/14/2014 11:30 AM CDT Height 167.6 cm (5' 6 ) 11/14/2014 11:30 AM CDT Body Mass Index 41.8 11/14/2014 11:30 AM CDT documented in this encounter Plan of Treatment Not on file documented as of this encounter Procedures Procedure Name Priority Date/Time Associated Diagnosis Comments SCAN - PATHOLOGY 11/15/2014 12:0 0 AM CDT CHOLANGIOGRAM INTRAOPERATIVE Routine 11/14/2014 7:16 AM CDT documented in this encounter Results * SCAN - PATHOLOGY (11/15/2014 12:00 AM CDT) Narrative 11/15/2014 12:00 AM CDT Ordered by an unspecified provider. us Historical Provider MD Final Res ult * [place] Cholangiogram Intraoperative (11/14/2014 7:16 AM CDT) Anatomical Region Laterality Modality Body, Abdomen N/A Radiographic Phuong ging 11/14/2014 7:16 AM CDT Impressions 11/15/2014 11:54 AM CDT ?? 1. ??No obvious filling defect or evidence for biliary obstruction. ?? Correlation with real time imaging is recommended. Report was called to the operating room by the technologist at the time of examination at approximately 1400 hours on 11/14/2014. THIS IS AN ELECTRONICALLY VERIFIED REPORT 11/15/2014 11:47 AM: ??Demar Abbott D.O. Demar Abbott D.O. :bb 02:05 PM 02:09 PM [facility] [EOD] Narrative 11/15/2014 11:54 AM CDT EXAMINATION: ??Intraoperative cholangiogram HISTORY: ??Cholelithiasis, abdominal pain. TECHNIQUE: ??Intraoperative fluoroscopy was provided for Dr. Chavira during cholangiogram. A single sonographic broadening was provided. COMPARISON: ??CT abdomen and pelvis performed 10/22/2014. FINDINGS: ??The initial image demonstrates contrast opacifying the nondilated intrahepatic and extrahepatic bile ducts. ??There is also contrast observed within the duodenum. ??There is no evidence for obstruction. ??No definable intraductal filling defects are noted to suggest choledocholithiasis. ?? Correlation with real time imaging is needed. 15 seconds of fluoroscopy time was utilized for this examination. Procedure Note Provider, MD Adry - 12/09/2020 EXAMINATION: Intraoperative cholangiogram HISTORY: Cholelithiasis, abdominal pain. TECHNIQUE: Intraoperative fluoroscopy was provided for Dr. Nugent cholangiogram. A single sonographic broadening was provided. COMPARISON: CT abdomen and pelvis performed 10/22/2014. FINDINGS: The initial image demonstrates contrast opacifying thenondilated intrahepatic and extrahepatic bile ducts. There is also contrast observed within the duodenum. There is no evidence for obstruction. No definable intraductal filling defects are noted to suggest choledocholithiasis. Correlation with real time imaging is needed. 15 seconds of fluoroscopy time was utilized for this examination. IMPRESSION: 1. No obvious filling defect or evidence for biliary obstruction. Correlation with real time imaging is recommended. Report was called to the operating room by the technologist at the time of examination at approximately 1400 hours on 11/14/2014. THIS IS AN ELECTRONICALLY VERIFIED REPORT 11/15/2014 11:47 AM: Demar Abbott D.O. Demar Abbott D.O. :bb 02:05 PM 02:09 PM [facility] [EOD] us Callie Chavira MD IMG FLUOROSCOPY PROCEDUR ES Final Result documented in this encounter Visit Diagnoses Diagnosis Calculus of gallbladder with other cholecystitis documented in this encounter
--- OUTSIDE RECORDS SUMMARY | 2024-07-11 07:45 | XMS_ITS | Encounter Summary ---
Author Organization [facility] Healthcare Address [address] [place] [address] Care Team Providers Care Classified Copy Control Clerk Name Role Phone Unavailable Primary Care Provider Unavailabl e Encounter Details Date Type Department Care Team (Latest Contact Info) Description 07/08/2015 1:04 PM SPACE CONTROL AGENT - 07/08/2015 5:58 PM SPACE CONTROL AGENT Hospital Encounter [facility] [place], [phone] [address] Supraventricular tachycardia (CMS/HCC); Shortness of breath Social History Tobacco Use Types Packs/Day Years Used Date Smoking Tobacco: Never Assessed Comments Unknown Sex and Gender Information Value Date Recorded Sex Assigned at Not on file Legal Sex Female 1:19 PM SPACE CONTROL AGENT Gender Identity Not on file Sexual Orientation Not on file documented as of this encounter Last Filed Vital Signs Vital Sign Reading Time Taken Comments Blood Pressure 165/67 07/08/2015 1:07 PM SPACE CONTROL AGENT Pulse 81 07/08/2015 1:07 PM SPACE CONTROL AGENT Temperature 36.8 ??C (98.2 ??F) 07/08/2015 1:07 PM CS T Respiratory Rate - - Oxygen Saturation 100% 07/08/2015 1:07 PM SPACE CONTROL AGENT Inhaled Oxygen Concentration - - Weight 117 kg (258 lb) 07/08/2015 1:07 PM SPACE CONTROL AGENT Height 167.6 cm (5' 6 ) 07/08/2015 1:07 PM SPACE CONTROL AGENT Body Mass Index 41.64 07/08/2015 1:07 PM SPACE CONTROL AGENT documented in this encounter Plan of Treatment Not on file documented as of this encounter Procedures Procedure Name Priority Date/Time Associated Diagnosis Comments CBC WITH AUTO DIFFERENTIAL Routine 07/08/2015 1:35 PM SPACE CONTROL AGENT TROPONIN I Routine 07/08/2015 1:35 PM SPACE CONTROL AGENT TSH Routine 07/08/2015 1:35 PM SPACE CONTROL AGENT MAGNESIUM Routine 07/08/2015 1:35 PM SPACE CONTROL AGENT COMPREHENSIVE METABOLIC PANEL Routine 07/08/2015 1:35 PM SPACE CONTROL AGENT XR CHEST PA LATERAL 2 VIEWS Routine 07/08/2015 12:00 AM SPACE CONTROL AGENT documented in this encounter Results * Troponin I (07/08/2015 1:35 PM SPACE CONTROL AGENT) [facility] Troponin I < 0.300 0.000 - 0.300 ng/mL 07/08/2015 2:39 PM SPACE CONTROL AGENT [facility] HISTORICAL RESULTS Comment: Reference using IAN Chemiluminescence ? Negative: Repeat in 4-6 hours as indicated. 07/08/2015 1:35 PM SPACE CONTROL AGENT 07/08/2015 1:57 PM SPACE CONTROL AGENT Mary Watson DATA COLLECTOR LAB BLOOD ORDERABLES Final R esult [facility] HISTORICAL RESULTS * TSH (07/08/2015 1:35 PM SPACE CONTROL AGENT) Pathologist [facility] TSH 1.14 0.27 - 4.20 uIU/mL 07/08/2015 2:39 PM SPACE CONTROL AGENT [facility] HISTORICAL RESULTS 07/08/2015 1:35 PM SPACE CONTROL AGENT 07/08/2015 1:57 PM SPACE CONTROL AGENT us Mary Watson DATA COLLECTOR LAB BLOOD ORDERABLES Final R esult [facility] HISTORICAL RESULTS * Magnesium (07/08/2015 1:35 PM SPACE CONTROL AGENT) Pathologist [facility] Magnesium 1.9 1.6 - 2.6 mg/dL 07/08/2015 2:37 PM SPACE CONTROL AGENT [facility] HISTORICAL RESULTS Comment:Magnesium sulfate th erapy: 3.0-9.1 mg/dL 07/08/2015 1:35 PM SPACE CONTROL AGENT 07/08/2015 1:57 PM SPACE CONTROL AGENT Mary Watson DATA COLLECTOR LAB BLOOD ORDERABLES Final [facility] Performing Organization Address City/[facility]/ZIP Co de Phone Number [facility] HISTORICAL RESULTS * (ABNORMAL) Comprehensive metabolic panel (07/08/2015 1:35 PM SPACE CONTROL AGENT) [facility] Sodium 141 135 - 145 mmol/L Potassium 3.7 3.3 - 5.1 mmol/L Chloride 103 96 - 108 mmol/L Carbon Dioxide 26 22 - 32 mmol/L Anion Gap 12 7 - 16 Glucose 112(H) 70 - 100 mg/dL BUN 13 6 - 20 mg/dL Creatinine 0.7 0.5 - 1.1 mg/dL 07/08/2015 2:37 PM [facility] [employer] [facility] HISTORICAL RESULTS Comment: NOTE: Estimated GFR (Cockroft-Gault) [...] or on dialysis @ Est GFR (Cockcroft-G) 128 ml/MIN 07/08/2015 2:37 PM [employer] HISTORICAL RESULTS Calcium 9.0 8.6 - 10.0 mg/dL 07/08/2015 2:37 PM [employer] [facility] [employer] HISTORICAL RESULTS Total Protein 7.4 6.4 - 8.3 g/dL 07/08/2015 2:37 PM [employer] [facility] [employer] HISTORICAL RESULTS Albumin 4.1 3.5 - 5.2 g/dL 07/08/2015 2:37 PM [employer] [facility] [employer] HISTORICAL RESULTS Globulin 3.3 2.3 - 3.5 gm/dL 07/08/2015 2:37 PM [employer] [facility] [employer] HISTORICAL RESULTS Albumin/Globulin Ratio 1.2 1.1 - 1.8 07/08/2015 2:37 PM [employer] [facility] [employer] HISTORICAL RESULTS Total Bilirubin < 0.2 0.0 - 1.2 mg/dL 07/08/2015 2:37 PM [employer] [facility] [employer] HISTORICAL RESULTS AST 15 0 - 32 U/L 07/08/2015 2:37 PM [employer] [facility] [employer] HISTORICAL RESULTS ALT 14 0 - 33 U/L 07/08/2015 2:37 PM [employer] [facility] [employer] HISTORICAL RESULTS Alkaline Phosphatase 63 35 - 104 U/L 07/08/2015 1:35 PM SPACE CONTROL AGENT 07/08/2015 1:57 PM SPACE CONTROL AGENT us Mary Watson DATA COLLECTOR LAB BLOOD ORDERABLES Final R esult [facility] HISTORICAL RESULTS * (ABNORMAL) CBC with auto differential (07/08/2015 1:35 PM SPACE CONTROL AGENT) WBC 10.7(H) 4.6 - 10.2 x10 3/ul 07/08/2015 2:00 PM SPACE CONTROL AGENT [facility] HISTORICAL RESULTS RBC 4.60 3.76 - 4.80 x10 6/ul Hemoglobin 10.7(L) 11.0 - 15.0 g/dl Hct 34.2 33.0 - 43.0 % MCV 74.3(L) 80.0 - 97.0 fl MCH 23.3(L) 27.0 - 31.2 pg MCHC 31.3(L) 31.8 - 35.4 g/dl RDW 18.3(H) 11.6 - 14.8 % Plt Count 408(H) 124 - 400 x10 3/ul MPV 9.9 7.4 - 10.4 fl Differential Method AUTOMATED DIFF --------- -- Neut % 66.7 37.0 - 85.0 % Immature Gran % 0.2 0.0 - 3.0 % Lymph % 23.4 5.0 - 45.0 % [place] % 7.2 3.0 - 15.0 % Eos % 1.8 0.0 - 7.0 % Baso % 0.7 0.0 - 2.0 % ABSOLUTE COUNTS ABSOLUTE COUNTS --------- -- Absolute Neuts (auto) 7.1 1.7 - 8.7 x10 3/ul Immature Gran # 0.0 0.0 - 0.3 x10 3/ul 07/08/2015 2:00 PM SPACE CONTROL AGENT [facility] HISTORICAL RESULTS Absolute Lymphs (auto) 2.5 0.2 - 4.6 x10 3/ul Absolute Monos (auto) 0.8 0.1 - 1.5 x10 3/ul Absolute Eos (auto) 0.2 0.0 - 0.7 x10 3/ul Absolute Basos (auto) 0.1 0.0 - 0.2 x10 3/ul 07/08/2015 1:35 PM SPACE CONTROL AGENT 07/08/2015 1:57 PM [facility] us Mary Watson DATA COLLECTOR LAB BLOOD ORDERABLES Final R esult [facility] HISTORICAL RESULTS * XR Chest Pa Lateral 2 Views (07/08/2015 12:00 AM SPACE CONTROL AGENT) Anatomical Region Laterality Modality Body, Chest N/A Radiographic Phuong ging 07/08/2015 Impressions 07/08/2015 4:18 PM SPACE CONTROL AGENT ??No evidence of acute cardiopulmonary abnormality. THIS IS AN ELECTRONICALLY VERIFIED REPORT 07/08/2015 4:15 PM: ??Freddy Stokes M.D. Freddy Stkoes M.D. CH: 04:15 PM 04:15 PM [facility] [EOD] Narrative 07/08/2015 4:18 PM SPACE CONTROL AGENT EXAMINATION: ??Two-view chest. ?? HISTORY: ??Tachycardia and fatigue with right upper back pain, additional information obtained by technologist was onset today. TECHNIQUE: ??PA and lateral chest. COMPARISON: ??08/07/2014. FINDINGS: ??The lungs expanded clear. ??There is no focal consolidation, pleural effusion, or pneumothorax. ??Cardiac and mediastinal silhouette are normal. ??No acute osseous abnormality is identified. Procedure Note Provider, MD Adry - 12/09/2020 EXAMINATION: Two-view chest. HISTORY: Tachycardia and fatigue with right upper back pain, additional information obtained by technologist was onset today. TECHNIQUE: PA and lateral chest. COMPARISON: 08/07/2014. FINDINGS: The lungs expanded clear. There is no focal consolidation,pleural effusion, or pneumothorax. Cardiac and mediastinal silhouette are normal.No acute osseous abnormality is identified. IMPRESSION: No evidence of acute cardiopulmonary abnormality. THIS IS AN ELECTRONICALLY VERIFIED REPORT 07/08/2015 4:15 PM: Freddy Stokes M.D. Freddy Stokes M.D. CH: 04:15 PM 04:15 PM [facility] [EOD] us Mary Watson DATA COLLECTOR IMG XR PROCEDURES Final Resu lt documented in this encounter Visit Diagnoses Diagnosis Supraventricular tachycardia (HCC) Other specified cardiac dysrhythmias Shortness of breath documented in this encounter
--- OUTSIDE RECORDS SUMMARY | 2024-07-11 07:45 | XMS_ITS | Encounter Summary ---
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 Social History Tobacco Use Types Packs/Day Years Used Date Smoking Tobacco: Never Comments Unknown Sex and Gender Information Value Date Recorded Sex Assigned at Not on file 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 Gender Identity Not on file Sexual Orientation Not on file documented as of this encounter Last Filed Vital Signs Vital Sign Reading Time Taken Comments Blood Pressure 128/65 04/24/2016 8:41 AM CDT Pulse 99 04/24/2016 8:41 AM CDT Temperature 36.6 ??C (97.8 ??F) 04/24/2016 8:41 AM CD T Respiratory Rate - - Oxygen Saturation 98% 04/24/2016 8:41 AM CDT Inhaled Oxygen Concentration - - Weight 99.8 kg (220 lb) 04/24/2016 8:41 AM CDT Height 167.6 cm (5' 6 ) 04/24/2016 8:41 AM CDT Body Mass Index 35.51 04/24/2016 8:41 AM CDT documented in this encounter Plan of Treatment Not on file documented as of this encounter Procedures Procedure Name Priority Date/Time Associated Diagnosis Comments XR HAND LEFT 3 OR MORE VIEWS Routine 04/24/2016 8:53 AM CDT documented in this encounter Results * XR Hand Left 3 or More Views (04/24/2016 8:53 AM CDT) Anatomical Region Laterality Modality Upper Extremities, Hand [facility] 04/24/2016 8:53 AM CDT Impressions 04/24/2016 9:44 AM CDT ??No evidence of acute fracture or dislocation. THIS IS AN ELECTRONICALLY VERIFIED REPORT 04/24/2016 9:41 AM: ??Alvarez Ramon M.D. ?? Alvarez Ramon M.D. AB: 09:41 AM 09:41 AM [facility] [EOD] Narrative 04/24/2016 9:44 AM CDT EXAMINATION: ??Left hand series. HISTORY: ??Left hand pain since striking the hand on an object this morning. TECHNIQUE: ??3 views of the left hand. COMPARISON: ??None. FINDINGS: ??There is no evidence of acute fracture or dislocation. ??Alignment is normal. ??The joint spaces are preserved. ??The visualized soft tissues are unremarkable. Procedure Note Provider, MD Adry - 12/09/2020 EXAMINATION: Left hand series. HISTORY: Left hand pain since striking the hand on an object thismorning. TECHNIQUE: 3 views of the left hand. COMPARISON: None. FINDINGS: There is no evidence of acute fracture or dislocation.Alignment is normal. The joint spaces are preserved. The visualized soft tissuesare unremarkable. IMPRESSION: No evidence of acute fracture or dislocation. THIS IS AN ELECTRONICALLY VERIFIED REPORT 04/24/2016 9:41 AM: Alvarez Ramon M.D. Alvarez Ramon M.D. 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
--- OUTSIDE RECORDS SUMMARY | 2024-07-11 07:45 | XMS_ITS | Encounter Summary ---
Author Organization [facility] Healthcare Address [address] [place] [address] Care Team Providers Care Ruling Machine Feeder Name Role Phone Unavailable Primary Care Provider Unavailabl e Encounter Details Date Type Department Care Team (Latest Contact Info) Description 05/06/2016 7:06 AM CDT Hospital Encounter [facility] OP Baldomero Dominguez MD [address] [place] [address] Elevated white blood cell count Social History Tobacco Use Types Packs/Day Years Used Date Smoking Tobacco: Never Comments Unknown Sex and Gender Information Value Date Recorded Sex Assigned at Not on file Legal Sex Female 1:19 PM PRECISION MILLWRIGHT Gender Identity Not on file Sexual Orientation Not on file documented as of this encounter Plan of Treatment Not on file documented as of this encounter Procedures Procedure Name Priority Date/Time Associated Diagnosis Comments CBC WITH AUTO DIFFERENTIAL Routine 05/06/2016 7:14 AM CDT documented in this encounter Results * (ABNORMAL) CBC with auto differential (05/06/2016 7:14 AM CDT) WBC 9.2 4.6 - 10.2 x10 3/ul 05/06/2016 7:43 AM CDT [facility] HISTORICAL RESULTS RBC 4.87(H) 3.76 - 4.80 x10 6/ul 05/06/2016 7:43 AM CDT [facility] HISTORICAL RESULTS Hemoglobin 12.3 11.0 - 15.0 g/dl 05/06/2016 7:43 AM CDT [facility] - [employer] HISTORICAL RESULTS Hct 38.7 33.0 - 43.0 % 05/06/2016 7:43 AM CDT [facility] HISTORICAL RESULTS MCV 79.5(L) 80.0 - 97.0 fl 05/06/2016 7:43 AM CDT [facility] HISTORICAL RESULTS MCH 25.3(L) 27.0 - 31.2 pg 05/06/2016 7:43 AM CDT [facility] HISTORICAL RESULTS MCHC 31.8 31.8 - 35.4 g/dl 05/06/2016 7:43 AM CDT [facility] - [employer] HISTORICAL RESULTS RDW 15.3(H) 11.6 - 14.8 % 05/06/2016 7:43 AM CDT [facility] - [employer] ([employer]) HISTORICAL RESULTS Plt Count 388 124 - 400 x10 3/ul 05/06/2016 7:43 AM CDT [facility] [employer] HISTORICAL RESULTS MPV 9.9 7.4 - 10.4 fl 05/06/2016 7:43 AM CDT [facility] [employer] [facility] HISTORICAL RESULTS Neut % 61.4 37.0 - 85.0 % 05/06/2016 7:43 AM CDT [facility] [employer] [facility] HISTORICAL RESULTS Immature Gran % 0.4 0.0 - 3.0 % 05/06/2016 7:43 AM CDT [facility] [employer] [facility] HISTORICAL RESULTS Lymph % 27.4 5.0 - 45.0 % 05/06/2016 7:43 AM CDT [facility] [employer] [facility] HISTORICAL RESULTS Queens % 7.9 3.0 - 15.0 % 05/06/2016 7:43 AM CDT [facility] HISTORICAL RESULTS Eos % 2.1 0.0 - 7.0 % 05/06/2016 7:43 AM CDT [facility] - [employer] HISTORICAL RESULTS Baso % 0.8 0.0 - 2.0 % 05/06/2016 7:43 AM CDT [facility] [employer] [facility] HISTORICAL RESULTS Absolute Neuts (auto) 5.6 1.7 - 8.7 x10 3/ul 05/06/2016 7:43 AM CDT [facility] [employer] [facility] HISTORICAL RESULTS Immature Gran # 0.0 0.0 - 0.3 x10 3/ul 05/06/2016 7:43 AM CDT [facility] HISTORICAL RESULTS Absolute Lymphs (auto) 2.5 0.2 - 4.6 x10 3/ul 05/06/2016 7:43 AM CDT [facility] HISTORICAL RESULTS Absolute Monos (auto) 0.7 0.1 - 1.5 x10 3/ul 05/06/2016 7:43 AM T [facility] HISTORICAL RESULTS Absolute Eos (auto) 0.2 0.0 - 0.7 x10 3/ul 05/06/2016 7:43 AM T [facility] HISTORICAL RESULTS Absolute Basos (auto) 0.1 0.0 - 0.2 x10 3/ul 05/06/2016 7:43 AM T [facility] HISTORICAL RESULTS 05/06/2016 7:14 AM CDT 05/06/2016 7:27 AM CDT us Baldomero Dominguez MD LAB BLOOD ORDERABLES Final Resul t [facility] HISTORICAL RESULTS documented in this encounter Visit Diagnoses Diagnosis Elevated white blood cell count Leukocytosis, unspecified documented in this encounter
--- OUTSIDE RECORDS SUMMARY | 2024-07-11 07:46 | XMS_ITS | Encounter Summary ---
Author Organization [facility] Healthcare Address [address] [place] [address] Care Team Providers Care Reducer Name Role Phone Unavailable Primary Care Provider Unavailabl e Encounter Details Date Type Department Care Team (Latest Contact Info) Description 08/18/2013 10:38 AM TRAILERS AND MOTOR HOMES SALESPERSON Hospital Encounter [facility] OP Pee Villasenor MD [address] [facility] [address] [phone] Lump or mass in breast; Solitary cyst of breast Social History Tobacco Use Types Packs/Day Years Used Date Smoking Tobacco: Never Assessed Comments Unknown Sex and Gender Information Value Date Recorded Sex Assigned at Not on file Legal Sex Female 1:19 PM TRAILERS AND MOTOR HOMES SALESPERSON Gender Identity Not on file Sexual Orientation Not on file documented as of this encounter Plan of Treatment Not on file documented as of this encounter Procedures Procedure Name Priority Date/Time Associated Diagnosis Comments US BREAST LEFT COMPLETE Routine 08/18/2013 10:55 AM TRAILERS AND MOTOR HOMES SALESPERSON DIAGNOSTIC MAMMOGRAM 2D LEFT Routine 08/18/2013 10:40 AM TRAILERS AND MOTOR HOMES SALESPERSON GENERAL RADIOLOGY REPORT 08/18/2013 12:00 AM TRAILERS AND MOTOR HOMES SALESPERSON GENERAL RADIOLOGY REPORT 08/18/2013 12:00 AM TRAILERS AND MOTOR HOMES SALESPERSON documented in this encounter Results * US Breast Left Complete (08/18/2013 10:55 AM TRAILERS AND MOTOR HOMES SALESPERSON) Anatomical Region Laterality Modality Breast Left Ultrasound 08/18/2013 10:5 5 AM TRAILERS AND MOTOR HOMES SALESPERSON Narrative 08/18/2013 11:17 AM TRAILERS AND MOTOR HOMES SALESPERSON Please refer to the diagnostic mammography report from the same date. The reports have been combined. THIS IS AN ELECTRONICALLY VERIFIED REPORT 08/18/2013 11:13 AM: ??Hernán Townsend M.D. Hernán Townsend M.D. : 11:13 AM 11:13 AM [facility] [EOD] Procedure Note Provider, MD Adry - 12/09/2020 Please refer to the diagnostic mammography report from the same date. The reports have been combined. THIS IS AN ELECTRONICALLY VERIFIED REPORT 08/18/2013 11:13 AM: Hernán Townsend M.D. Hernán Townsend M.D. MD: 11:13 AM 11:13 AM [facility] [EOD] Pee Villasenor MD IMG MAMMO PROCEDURES Fi nal Result * Diagnostic Mammogram 2D Left (08/18/2013 10:40 AM TRAILERS AND MOTOR HOM[employer] SALESPERSON) Anatomical Region Laterality Modality Breast Left Mammography 08/18/2013 10:4 0 AM TRAILERS AND MOTOR HOMES SALESPERSON Impressions 08/18/2013 1:32 PM TRAILERS AND MOTOR HOMES SALESPERSON ?? 1. ??Benign left breast simple cyst along the 1 o'clock axis. 2. ??No mammographic or sonographic evidence of left breast malignancy. Routine annual screening mammography is recommended. The findings and recommendations were discussed with the patient in clinic by Dr. Townsend. ??A result letter will be mailed to the patient. BIRADS: 2 - Benign Findings THIS IS AN ELECTRONICALLY VERIFIED REPORT 08/18/2013 1:30 PM: ??eHrnán Townsend M.D. Hernán Townsend M.D. MD:nely 11:13 AM 11:52 AM [facility] [EOD] Narrative 08/18/2013 1:32 PM TRAILERS AND MOTOR HOMES SALESPERSON EXAMINATION: ??Left digital diagnostic mammogram using CAD. ??Left breast ultrasound. HISTORY: ??48-year-old female presents for evaluation of a left breast mass seen on recent baseline screening mammogram. No reported family history of breast cancer. COMPARISON: ??Baseline screening mammogram dated 08/11/2013. FINDINGS: ?? Left diagnostic mammogram: ??A full field true lateral view and spot compression CC and MLO views of the left breast were performed. ??Within the left breast along the 1 o'clock axis at a mid to posterior depth, there is an oval isodense mass with partially circumscribed, partially obscured margins measuring 2.2 x 1.9 cm. Left breast ultrasound: ??Targeted sonographic evaluation of the left breast at 1 o'clock, 6 cm from the nipple demonstrates a circumscribed, anechoic, thin-walled lesion with increased through transmission and no internal blood flow, measuring 2.4 x 2.1 x 0.7 cm. ??The sonographic appearance of this lesion is consistent with a benign simple cyst, which corresponds in size, location, and appearance with the mammographically evident mass. ??No suspicious left breast sonographic findings are seen on targeted ultrasound. Procedure Note Provider, MD Adry - 12/09/2020 EXAMINATION: Left digital diagnostic mammogram using CAD. Left breast ultrasound. HISTORY: 48-year-old female presents for evaluation of a left breast mass seen on recent baseline screening mammogram. No reported family history of breast cancer. COMPARISON: Baseline screening mammogram dated 08/11/2013. FINDINGS: Left diagnostic mammogram: A full field true lateral view and spot compression CC and MLO views of the left breast were performed. Withinthe left breast along the 1 o'clock axis at a mid to posterior depth, there isan oval isodense mass with partially circumscribed, partially obscuredmargins measuring 2.2 x 1.9 cm. Left breast ultrasound: Targeted sonographic evaluation of the leftbreast at 1 o'clock, 6 cm from the nipple demonstrates a circumscribed, anechoic, thin-walled lesion with increased through transmission and no internalblood flow, measuring 2.4 x 2.1 x 0.7 cm. The sonographic appearance of thislesion is consistent with a benign simple cyst, which corresponds in size,location, and appearance with the mammographically evident mass. No suspicious left breast sonographic findings are seen on targeted ultrasound. IMPRESSION: 1. Benign left breast simple cyst along the 1 o'clock axis. 2. No mammographic or sonographic evidence of left breast malignancy. Routine annual screening mammography is recommended. The findings and recommendations were discussed with the patient in clinicby Dr. Townsend. A result letter will be mailed to the patient. BIRADS: 2 - Benign Findings THIS IS AN ELECTRONICALLY VERIFIED REPORT 08/18/2013 1:30 PM: Hernán Townsend M.D. Hernán Townsend M.D. MD:nely 11:13 AM 11:52 AM [facility] [EOD] Pee Villasenor MD IMG MAMMO PROCEDURES Fi nal Result * GENERAL RADIOLOGY REPORT (08/18/2013 12:00 AM TRA[employer] AND [employer] HOM[employer] SALESPERSON) Anatomical Region Laterality Modality Radiographic Phuong ging Narrative 08/18/2013 12:00 AM TRA[employer] AND [employer]OR HOM[employer] SALESPERSON Ordered by an unspecified provider. Historical Provider MD ESPARZA XR PROCEDURES Final R esult * GENERAL RADIOLOGY REPORT (08/18/2013 12:00 AM TRAIL[employer] AND [employer]OR HOM[employer] SALESPERSON) Anatomical Region Laterality Modality Radiographic Phuong ging Narrative 08/18/2013 12:00 AM TRAILERS AND [employer]OR HOMES SALESPERSON Ordered by an unspecified provider. Historical Provider MD ESPARZA XR PROCEDURES Final R esult documented in this encounter Visit Diagnoses Diagnosis Lump or mass in breast Solitary cyst of breast documented in this encounter
--- OUTSIDE RECORDS SUMMARY | 2024-07-11 07:46 | XMS_ITS | Encounter Summary ---
Author Organization [facility] Healthcare Address [address] [place] [address] Care Team Providers Care Insulation Manager Name Role Phone Unavailable Primary Care Provider Unavailabl e Encounter Details Date Type Department Care Team (Latest Contact Info) Description 08/11/2013 12:01 PM HOUSEHOLD PERSONAL ASSISTANT Hospital Encounter [facility] OP Pee Villasenor MD [address] [facility] [address] [phone] Other screening mammogram Social History Tobacco Use Types Packs/Day Years Used Date Smoking Tobacco: Never Assessed Comments Unknown Sex and Gender Information Value Date Recorded Sex Assigned at Not on file Legal Sex Female 1:19 PM HOUSEHOLD PERSONAL ASSISTANT Gender Identity Not on file Sexual Orientation Not on file documented as of this encounter Plan of Treatment Not on file documented as of this encounter Procedures Procedure Name Priority Date/Time Associated Diagnosis Comments SCREENING MAMMOGRAM 2D BILATERAL Routine 08/11/2013 12:04 PM HOUSEHOLD PERSONAL ASSISTANT GENERAL RADIOLOGY REPORT 08/11/2013 12:00 AM HOUSEHOLD PERSONAL ASSISTANT documented in this encounter Results * Screening Mammogram 2D Bilateral (08/11/2013 12:04 PM HOUSEHOLD PERSONAL ASSISTANT) Anatomical Region Laterality Modality Breast Bilateral Mammography 08/11/2013 12:0 4 PM HOUSEHOLD PERSONAL ASSISTANT Impressions 08/11/2013 1:31 PM HOUSEHOLD PERSONAL ASSISTANT 1. Mass in the left breast. ??Recommend return to the imaging center for further imaging. 2. No mammographic evidence of malignancy in the right breast. ??Routine annual screening mammograpy is recommended of the right breast. ASSESSMENT: ??BI-RADS: 0 INCOMPLETE. Additional imaging required. THIS IS AN ELECTRONICALLY VERIFIED REPORT 08/11/2013 1:28 PM: ??Garth Rossi M.D. Garth Rossi M.D. [place]:alexandru 01:28 PM 01:28 PM [facility] [EOD] Narrative 08/11/2013 1:31 PM HOUSEHOLD PERSONAL ASSISTANT EXAMINATION: ??BILATERAL DIGITAL SCREENING MAMMOGRAM HISTORY: ??Baseline screening mammogram. FINDINGS: There are scattered fibroglandular densities. There is a mass in the central and slightly lateral left breast. There is no suspicious calcification or architectural distortion in the left breast. There is no dominant mass, suspicious calcification or architectural distortion in the right breast. CAD was utilized to evaluate this mammogram. Procedure Note Provider, MD Adry - 12/09/2020 EXAMINATION: BILATERAL DIGITAL SCREENING MAMMOGRAM HISTORY: Baseline screening mammogram. FINDINGS: There are scattered fibroglandular densities. There is a mass in the central and slightly lateral left breast. There is no suspicious calcification or architectural distortion in theleft breast. There is no dominant mass, suspicious calcification or architectural distortion in the right breast. CAD was utilized to evaluate this mammogram. IMPRESSION: 1. Mass in the left breast. Recommend return to the imaging center for further imaging. 2. No mammographic evidence of malignancy in the right breast. Routineannual screening mammograpy is recommended of the right breast. ASSESSMENT: BI-RADS: 0 INCOMPLETE. Additional imaging required. THIS IS AN ELECTRONICALLY VERIFIED REPORT 08/11/2013 1:28 PM: Garth Rossi M.D. Garth Rossi M.D. [place]:or 01:28 PM 01:28 PM [facility] [EOD] Pee GRIGGSG MAMMO PROCEDURES Fi nal Result * GENERAL RADIOLOGY REPORT (08/11/2013 12:00 AM HOUSEHOLD PERSONAL ASSISTANT) Anatomical Region Laterality Modality Radiographic Phuong ging Narrative 08/11/2013 12:00 AM HOUSEHOLD PERSONAL ASSISTANT Ordered by an unspecified provider. us Historical Provider MD ESPARZA XR PROCEDURES Final R esult documented in this encounter Visit Diagnoses Diagnosis Other screening mammogram documented in this encounter
--- OUTSIDE RECORDS SUMMARY | 2024-07-11 07:46 | XMS_ITS | Encounter Summary ---
Author Organization [facility] Healthcare Address [address] [place] [address] Care Team Providers Care Customer Care Specialist Name Role Phone Unavailable Primary Care Provider Unavailabl e Encounter Details Date Type Department Care Team (Latest Contact Info) Description 08/11/2013 12:38 PM MUSIC LIBRARIAN Hospital Encounter [facility] OP Pee Villasenor MD [address] [facility] [address] [address] Encounter for routine gynecological examination Social History Tobacco Use Types Packs/Day Years Used Date Smoking Tobacco: Never Assessed Comments Unknown Sex and Gender Information Value Date Recorded Sex Assigned at Not on file Legal Sex Female 1:19 PM MUSIC LIBRARIAN Gender Identity Not on file Sexual Orientation Not on file documented as of this encounter Plan of Treatment Not on file documented as of this encounter Procedures Procedure Name Priority Date/Time Associated Diagnosis Comments SCAN - LABS 08/22/2013 12:00 AM MUSIC LIBRARIAN documented in this encounter Results * SCAN - LABS (08/22/2013 12:00 AM MUSIC LIBRARIAN) Narrative 08/22/2013 12:00 AM MUSIC LIBRARIAN Ordered by an unspecified provider. us Historical Provider Final Res ult documented in this encounter Visit Diagnoses Diagnosis Encounter for routine gynecological examination documented in this encounter
--- OUTSIDE RECORDS SUMMARY | 2024-07-11 07:46 | XMS_ITS | Encounter Summary ---
Author Organization [facility] Healthcare Address [address] [place] [address] Care Team Providers Care Auto Tester Name Role Phone Unavailable Primary Care Provider Unavailabl e Encounter Details Date Type Department Care Team (Late st Contact Info) Description 02/17/2014 3:46 AM CDT - 02/17/2014 4:45 AM CDT Hospital Encounter [facility] Anaya Mata MD [address] [place] [address] Scabies Social History Tobacco Use Types Packs/Day Years Used Date Smoking Tobacco: Never Assessed Comments Unknown Sex and Gender Information Value Date Recorded Sex Assigned at Not on file Legal Sex Female 1:19 PM HUMAN RESOURCE STATISTICIAN Gender Identity Not on file Sexual Orientation Not on file documented as of this encounter Last Filed Vital Signs Vital Sign Reading Time Taken Comments Blood Pressure 158/68 02/17/2014 3:51 AM CDT Pulse 80 02/17/2014 3:51 AM CDT Temperature 36.8 ??C (98.3 ??F) 02/17/2014 3:51 AM CD T Respiratory Rate - - Oxygen Saturation 98% 02/17/2014 3:51 AM CDT Inhaled Oxygen Concentration - - Weight 122.5 kg (270 lb) 02/17/2014 3:51 AM CDT Height 167.6 cm (5' 6 ) 02/17/2014 3:51 AM CDT Body Mass Index 43.58 02/17/2014 3:51 AM CDT documented in this encounter Plan of Treatment Not on file documented as of this encounter Visit Diagnoses Diagnosis Scabies documented in this encounter
--- OUTSIDE RECORDS SUMMARY | 2024-07-11 07:46 | XMS_ITS | Encounter Summary ---
Author Organization [facility] Healthcare Address [address] [place] [address] Care Team Providers Care Edi Specialist Name Role Phone Unavailable Primary Care Provider Unavailabl e Encounter Details Date Type Department Care Team (Latest Contact Info) Description 08/07/2014 9:58 AM CAMERA SUPERVISOR - 08/07/2014 2:00 PM CAMERA SUPERVISOR Hospital Encounter [facility] Alvarez Rodriguez, DO [address] [facility] [place] [address] Paroxysmal supraventricular tachycardia (HCC) Social History Tobacco Use Types Packs/Day Years Used Date Smoking Tobacco: Never Assessed Comments Unknown Sex and Gender Information Value Date Recorded Sex Assigned at Not on file Legal Sex Female 1:19 PM CAMERA SUPERVISOR Gender Identity Not on file Sexual Orientation Not on file documented as of this encounter Last Filed Vital Signs Vital Sign Reading Time Taken Comments Blood Pressure 124/78 08/07/2014 10:04 AM CAMERA SUPERVISOR Pulse 170 08/07/2014 10:04 AM CAMERA SUPERVISOR Temperature 36.8 ??C (98.2 ??F) 08/07/2014 10:[address] Respiratory Rate - - Oxygen Saturation 98% 08/07/2014 10:04 AM CAMERA SUPERVISOR Inhaled Oxygen Concentration - - Weight 120.2 kg (265 lb) 08/07/2014 10:04 AM CAMERA SUPERVISOR Height 167.6 cm (5' 6 ) 08/07/2014 10:04 AM CAMERA SUPERVISOR Body Mass Index 42.77 08/07/2014 10:04 AM CAMERA SUPERVISOR documented in this encounter Plan of Treatment Not on file documented as of this encounter Procedures Procedure Name Priority Date/Time Associated Diagnosis Comments URINALYSIS AND REFLEX TO MICROSCOPIC AND CULTURE Routine 08/07/2014 1:50 PM CAMERA SUPERVISOR TNI WITH LIPID PANEL Routine 08/07/2014 10:30 AM CAMERA SUPERVISOR THYROID FUNCTION CASCADE Routine 08/07/2014 10:30 AM CAMERA SUPERVISOR CBC WITH AUTO DIFFERENTIAL Routine 08/07/2014 10:30 AM CAMERA SUPERVISOR COMPREHENSIVE METABOLIC PANEL Routine 08/07/2014 10:30 AM CAMERA SUPERVISOR XR CHEST PA LATERAL 2 VIEWS Routine 08/07/2014 12:00 AM CAMERA SUPERVISOR documented in this encounter Results * (ABNORMAL) Urinalysis reflex to microscopic and culture (08/07/2014 1:50 PM CAMERA SUPERVISOR) Ur Collection Type CLEAN CATCH 08/07/2014 2:12 PM [facility] [employer] HISTORICAL RESULTS Ur Culture Indicated? C&S NOT INDICATED 08/07/2014 2:12 PM [facility] [employer] HISTORICAL RESULTS Urine Color YELLOW YELLOW 08/07/2014 2:12 PM [facility] [employer] HISTORICAL RESULTS Urine Clarity HAZY CLEAR 08/07/2014 2:12 PM [facility] [employer] HISTORICAL RESULTS Urine Glucose (UA) NORMAL NORMAL mg/dL 08/07/2014 2:12 PM CAMERA SUPERVISOR [employer] HISTORICAL RESULTS Urine Bilirubin NEGATIVE NEGATIVE mg/dl 08/07/2014 2:12 PM [facility] [employer] HISTORICAL RESULTS Urine Ketones NEGATIVE NEGATIVE mg/dL 08/07/2014 2:12 PM [facility] [employer] HISTORICAL RESULTS Ur Specific [place] 1.019 1.005 - 1.025 08/07/2014 2:12 PM [facility] [employer] HISTORICAL RESULTS Urine Blood NEGATIVE NEGATIVE mg/dl 08/07/2014 2:12 PM [facility] [employer] HISTORICAL RESULTS Urine pH 5.0 5.0 - 8.0 08/07/2014 2:[address] [facility] HISTORICAL RESULTS Urine Protein NEGATIVE NEGATIVE mg/dL 08/07/2014 2:[address] [facility] HISTORICAL RESULTS Urine Urobilinogen NORMAL NORMAL mg/dL 08/07/2014 2:[address] [facility] HISTORICAL RESULTS Urine Nitrite NEGATIVE NEGATIVE 08/07/2014 2:[address] [facility] HISTORICAL RESULTS Ur Leukocyte Esterase 75(H) NEGATIVE Montez/ul 08/07/2014 2:12 PM CAMERA SUPERVISOR [facility] HISTORICAL RESULTS Ur Microscopic Review Indicated or Ordered 08/07/2014 2:12 PM CAMERA SUPERVISOR [facility] HISTORICAL RESULTS Urine RBC 3 0 - 2 /HPF 08/07/2014 2:[address] [facility] HISTORICAL RESULTS Urine WBC 2 0 - 2 /HPF 08/07/2014 2:[address] [facility] HISTORICAL RESULTS Urine Bacteria Few /HPF 08/07/2014 2:[address] [facility] HISTORICAL RESULTS Urine Mucus Mod /LPF 08/07/2014 2:[address] [facility] HISTORICAL RESULTS Ur Squamous Epith Cells Rare /HPF 08/07/2014 2:[address] [facility] HISTORICAL RESULTS 08/07/2014 1:50 PM CAMERA SUPERVISOR 08/07/2014 2:03 PM CAMERA SUPERVISOR Narrative [facility] HISTORICAL RESULTS - 08/07/2014 2:12 PM CAMERA SUPERVISOR Collected By [facility] ?? [phone] ?? Alvarez Stokes DO LAB MICROBIOLOGY - GENERAL ORDERABLES Final Result Performing Organization Address [facility]/ZIP Co de Phone Number [facility] HISTORICAL RESULTS * TSH reflex to free T4 (08/07/2014 10:30 AM CAMERA SUPERVISOR) TSH W REFLEX TO FT4 1.63 0.27 - 4.20 uIU/mL 08/07/2014 11:[address] [facility] HISTORICAL RESULTS 08/07/2014 10:3 0 AM CAMERA SUPERVISOR 08/07/2014 10:36 AM CAMERA SUPERVISOR Alvarez Stokse DO LAB BLOOD ORDERABLES Final Result Performing Organization Address [facility]/ZIP Co de Phone Number [facility] HISTORICAL RESULTS * (ABNORMAL) TNI with LIPID PANEL (08/07/2014 10:30 AM CAMERA SUPERVISOR) Troponin I < 0.300 0.000 - 0.300 ng/mL 08/07/2014 11:[address] [facility] HISTORICAL RESULTS Comment: Reference using IAN Chemiluminescence ? Negative: Repeat in 4-6 hours as indicated. Triglycerides 89 0 - 199 mg/dL 08/07/2014 11:[address] [facility] HISTORICAL RESULTS Comment:12 hr pc highly moreno mmended for Triglyceride Cholesterol 196 0 - 199 mg/dL 08/07/2014 11:[address] [facility] HISTORICAL RESULTS Comment: Borderline: ??200-239 High Risk: ?? >239 HDL Cholesterol 38(L) 40 - 60 mg/dL 08/07/2014 11:[address] [facility] HISTORICAL RESULTS Comment: Major Risk ?< 40 mg/dL Moderate Risk ?40-60 mg/dL Negative Risk ?? > 60 mg/dL LDL Cholesterol, Calc 140(H) 0 - 130 mg/dL 08/07/2014 11:[address] [facility] HISTORICAL RESULTS Comment:High Risk > 159 mg/d L Cholesterol/HDL Ratio 5.2 08/07/2014 11:[address] [facility] HISTORICAL RESULTS Comment: Cholesterol / HDL Ratio 3.5:1 or less is desirable. Cholesterol / HDL Ratio greater than 5:1 is considered higher risk for developing heart disease. 08/07/2014 10:3 0 AM [facility] 08/07/2014 10:36 AM [facility] us Alvarez Stokes DO LAB BLOOD ORDERABLES Final Result [facility] HISTORICAL RESULTS * (ABNORMAL) Comprehensive metabolic panel (08/07/2014 10:30 AM [facility]) Pathologist [facility] Sodium 138 135 - 145 mmol/L 08/07/2014 11:[address] [facility] HISTORICAL RESULTS Potassium 3.8 3.3 - 5.1 mmol/L 08/07/2014 11:[address] [facility] HISTORICAL RESULTS Chloride 101 96 - 108 mmol/L 08/07/2014 11:[address] [facility] HISTORICAL RESULTS Carbon Dioxide 21(L) 22 - 32 mmol/L 08/07/2014 11:29 AM [employer] HISTORICAL RESULTS Anion Gap 16 7 - 16 08/07/2014 11:29 AM [employer] HISTORICAL RESULTS Glucose 110(H) 70 - 100 mg/dL 08/07/2014 11:29 AM [employer] HISTORICAL RESULTS Comment:As of June 27 14 new normal range in use. BUN 14 6 - 20 mg/dL 08/07/2014 11:29 AM [employer] HISTORICAL RESULTS Creatinine 0.8 0.5 - 1.1 mg/dL 08/07/2014 11:29 AM [employer] HISTORICAL RESULTS Kidney Disease Stage 82 mL/MIN 08/07/2014 11:29 AM [employer] HISTORICAL RESULTS Comment: NOTE; ??The GFR is [...] Kidney failure or on dialysis @ Calcium 9.3 8.6 - 10.0 mg/dL 08/07/2014 11:29 AM [employer] HISTORICAL RESULTS Total Protein 8.3 6.4 - 8.3 g/dL 08/07/2014 11:29 AM [employer] HISTORICAL RESULTS Albumin 4.3 3.5 - 5.2 g/dL 08/07/2014 11:29 AM [employer] HISTORICAL RESULTS Globulin 4.0(H) 2.3 - 3.5 gm/dL 08/07/2014 11:[address] [facility] HISTORICAL RESULTS Albumin/Globulin Ratio 1.1 1.1 - 1.8 08/07/2014 11:29 AM CAMERA SUPERVISOR [facility] HISTORICAL RESULTS Total Bilirubin 0.4 0.0 - 1.2 mg/dL 08/07/2014 11:29 AM CAMERA SUPERVISOR [facility] HISTORICAL RESULTS AST 16 0 - 32 U/L 08/07/2014 11:29 AM CAMERA SUPERVISOR [facility] HISTORICAL RESULTS ALT 16 0 - 33 U/L 08/07/2014 11:[address] [facility] HISTORICAL RESULTS Alkaline Phosphatase 64 35 - 104 U/L 08/07/2014 11:[address] [facility] HISTORICAL RESULTS 08/07/2014 10:3 0 AM CAMERA SUPERVISOR 08/07/2014 10:36 AM CAMERA SUPERVISOR Alvarez Stokes DO LAB BLOOD ORDERABLES Final Result [facility] HISTORICAL RESULTS * (ABNORMAL) CBC with auto differential (08/07/2014 10:30 AM CAMERA SUPERVISOR) WBC 10.8(H) 4.6 - 10.2 x10 3/ul 08/07/2014 10:[address] [facility] HISTORICAL RESULTS RBC 5.19(H) 3.76 - 4.80 x10 6/ul 08/07/2014 10:[address] [facility] HISTORICAL RESULTS Hemoglobin 12.4 11.0 - 15.0 g/dl 08/07/2014 10:[address] [facility] HISTORICAL RESULTS Hct 39.3 33.0 - 43.0 % 08/07/2014 10:[address] [facility] HISTORICAL RESULTS MCV 75.7(L) 80.0 - 97.0 fl 08/07/2014 10:[address] [facility] HISTORICAL RESULTS MCH 23.9(L) 27.0 - 31.2 pg 08/07/2014 10:[address] [facility] HISTORICAL RESULTS MCHC 31.6(L) 31.8 - 35.4 g/dl 08/07/2014 10:[address] [facility] HISTORICAL RESULTS RDW 17.0(H) 11.6 - 14.8 % 08/07/2014 10:[address] [facility] HISTORICAL RESULTS Plt Count 430(H) 124 - 400 x10 3/ul 08/07/2014 10:[address] [facility] HISTORICAL RESULTS MPV 9.6 7.4 - 10.4 fl 08/07/2014 10:[address] [facility] HISTORICAL RESULTS Differential Method AUTOMATED DIFF --------- -- 08/07/2014 10:39 AM CAMERA SUPERVISOR [facility] HISTORICAL RESULTS Neut % 60.6 37.0 - 85.0 % 08/07/2014 10:[address] [facility] HISTORICAL RESULTS Immature Gran % 0.4 0.0 - 3.0 % 08/07/2014 10:[address] [facility] HISTORICAL RESULTS Lymph % 27.9 5.0 - 45.0 % 08/07/2014 10:39 AM [facility]ISTOR[facility] RES[facility] [place] % 8.2 3.0 - 15.0 % 08/07/2014 10:39 AM CAMERA SUPERVISOR [facility] HISTORICAL RESULTS Eos % 2.1 0.0 - 7.0 % 08/07/2014 10:39 AM [facility] Baso % 0.8 0.0 - 2.0 % 08/07/2014 10:[address] [facility] HISTORICAL RESULTS ABSOLUTE COUNTS ABSOLUTE COUNTS --------- -- 08/07/2014 10:39 AM [employer] HISTOR[facility] RESULTS Absolute Neuts (auto) 6.5 1.7 - 8.7 x10 3/ul 08/07/2014 10:39 AM [employer] HISTORICAL RESULTS Immature Gran # 0.0 0.0 - 0.3 x10 3/ul 08/07/2014 10:39 AM [employer] HISTORICAL RESULTS Absolute Lymphs (auto) 3.0 0.2 - 4.6 x10 3/ul 08/07/2014 10:39 AM [employer] HISTORICAL RESULTS Absolute Monos (auto) 0.9 0.1 - 1.5 x10 3/ul 08/07/2014 10:39 AM [employer] HISTORICAL RESULTS Absolute Eos (auto) 0.2 0.0 - 0.7 x10 3/ul 08/07/2014 10:39 AM CAMERA SUPERVISOR [facility] HISTORICAL RESULTS Absolute Basos (auto) 0.1 0.0 - 0.2 x10 3/ul 08/07/2014 10:39 AM CAMERA SUPERVISOR [facility] HISTORICAL RESULTS 08/07/2014 10:3 0 AM CAMERA SUPERVISOR 08/07/2014 10:36 AM CAMERA SUPERVISOR Alvarez Rodarte Kike DO LAB BLOOD ORDERABLES Final Result [facility] HISTORICAL RESULTS * XR Chest Pa Lateral 2 Views (08/07/2014 12:00 AM CAMERA SUPERVISOR) Anatomical Region Laterality Modality Body, Chest N/A Radiographic Phuong ging 08/07/2014 Impressions 08/07/2014 1:20 PM CAMERA SUPERVISOR ??No acute cardiopulmonary process. THIS IS AN ELECTRONICALLY VERIFIED REPORT 08/07/2014 1:16 PM: ??Amarjit Delatorre M.D. Amarjit Delatorre M.D. CN:[email or web address] 01:16 PM 01:16 PM [facility] [EOD] Narrative 08/07/2014 1:20 PM CAMERA SUPERVISOR EXAMINATION: ??Chest, two-view HISTORY: ??Cough TECHNIQUE: ??Frontal and lateral views of the chest are obtained COMPARISON: ??08/21/2010 FINDINGS: ??There is no focal consolidation, pneumothorax, or pleural effusion. The cardiac silhouette and mediastinal contours are within normal limits. Procedure Note Provider, Adry, - 12/09/2020 EXAMINATION: Chest, two-view HISTORY: Cough TECHNIQUE: Frontal and lateral views of the chest are obtained COMPARISON: 08/21/2010 FINDINGS: There is no focal consolidation, pneumothorax, or pleuraleffusion. The cardiac silhouette and mediastinal contours are within normallimits. IMPRESSION: No acute cardiopulmonary process. THIS IS AN ELECTRONICALLY VERIFIED REPORT 08/07/2014 1:16 PM: Amarjit Delatorre M.D. Amarjit Delatorre M.D. CN:cn 01:16 PM 01:16 PM [facility] [EOD] Alvarez Stokes DO IMG XR PROCEDURES Final Res ult documented in this encounter Visit Diagnoses Diagnosis Paroxysmal supraventricular tachycardia (HCC) Paroxysmal supraventricular tachycardia documented in this encounter
--- OUTSIDE RECORDS SUMMARY | 2024-07-11 07:46 | XMS_ITS | Encounter Summary ---
Author Organization [facility] Healthcare Address [address] [place] [address] Care Team Providers Care Clinical Exercise Physiologist Name Role Phone Unavailable Primary Care Provider Unavailabl e Encounter Details Date Type Department Care Team (Latest Contact Info) Description 09/16/2014 8:30 PM SUPERVISOR FERTILIZER PROCESSING - 09/17/2014 2:14 AM SUPERVISOR FERTILIZER PROCESSING Hospital Encounter [facility] ER Amaris Huerta MD [address] [facility] [place] [address] Calculus of gallbladder and bile duct without cholecystitis Social History Tobacco Use Types Packs/Day Years Used Date Smoking Tobacco: Never Assessed Comments Unknown Sex and Gender Information Value Date Recorded Sex Assigned at Not on file Legal Sex Female 1:19 PM SUPERVISOR FERTILIZER PROCESSING Gender Identity Not on file Sexual Orientation Not on file documented as of this encounter Last Filed Vital Signs Vital Sign Reading Time Taken Comments Blood Pressure 129/73 09/16/2014 8:35 PM SUPERVISOR FERTILIZER PROCESSING Pulse 98 09/16/2014 8:35 PM SUPERVISOR FERTILIZER PROCESSING Temperature 37.3 ??C (99.1 ??F) 09/16/2014 8:35 PM CS T Respiratory Rate - - Oxygen Saturation 100% 09/16/2014 8:35 PM SUPERVISOR FERTILIZER PROCESSING Inhaled Oxygen Concentration - - Weight 118.8 kg (262 lb) 09/16/2014 8:35 PM SUPERVISOR FERTILIZER PROCESSING Height 167.6 cm (5' 6 ) 09/16/2014 8:35 PM SUPERVISOR FERTILIZER PROCESSING Body Mass Index 42.29 09/16/2014 8:35 PM SUPERVISOR FERTILIZER PROCESSING documented in this encounter Plan of Treatment Not on file documented as of this encounter Procedures Procedure Name Priority Date/Time Associated Diagnosis Comments CT ABDOMEN PELVIS W CONTRAST Routine 09/17/2014 12:00 AM SUPERVISOR FERTILIZER PROCESSING URINALYSIS AND REFLEX TO MICROSCOPIC AND CULTURE Routine 09/16/2014 10:33 PM SUPERVISOR FERTILIZER PROCESSING CBC WITH AUTO DIFFERENTIAL Routine 09/16/2014 9:21 PM SUPERVISOR FERTILIZER PROCESSING LIPASE Routine 09/16/2014 9:21 PM SUPERVISOR FERTILIZER PROCESSING COMPREHENSIVE METABOLIC PANEL Routine 09/16/2014 9:21 PM SUPERVISOR FERTILIZER PROCESSING documented in this encounter Results * CT Abdomen Pelvis W Contrast (09/17/2014 12:00 AM SUPERVISOR FERTILIZER PROCESSING) Anatomical Region Laterality Modality Body N/A Computed Tomogra phy 09/17/2014 Impressions 09/17/2014 1:22 AM SUPERVISOR FERTILIZER PROCESSING Cholelithiasis without evidence of acute cholecystitis. ??Correlation with Atkins's sign is recommended. THIS IS AN ELECTRONICALLY VERIFIED REPORT 09/17/2014 1:19 AM: ??Shaheen Cleary M.D. Shaheen Cleary M.D. MA:mickey 01:19 AM 01:19 AM [facility] [EOD] Narrative 09/17/2014 1:22 AM SUPERVISOR FERTILIZER PROCESSING EXAMINATION: ??CT abdomen and pelvis with contrast HISTORY: ??Epigastric abdominal pain radiating to the back. ??Nausea and vomiting. ??Diarrhea. ??Loss of appetite. COMPARISON: ??None. TECHNIQUE: ??Axial CT images through the abdomen and pelvis were obtained after the uneventful intravenous administration of 100 mL of Omnipaque 350 via the right hand IV.. FINDINGS: ?? Abdomen: Normal appendix identified on axial image 106 and coronal image 38. ?? No bowel obstruction. ??There is cholelithiasis without CT evidence of acute cholecystitis. ??Liver, spleen, pancreas, adrenal glands, and both kidneys are normal. ??No abdominal aortic aneurysm. ??No retroperitoneal lymphadenopathy. Pelvis: The uterus and ovaries are grossly normal. ??Urinary bladder is not well distended. ??No bladder calculi. ??There are pelvic phleboliths. ??No pelvic or inguinal lymphadenopathy. Procedure Note Provider, MD Adry - 12/09/2020 EXAMINATION: CT abdomen and pelvis with contrast HISTORY: Epigastric abdominal pain radiating to the back. Nausea and vomiting. Diarrhea. Loss of appetite. COMPARISON: None. TECHNIQUE: Axial CT images through the abdomen and pelvis were obtainedafter the uneventful intravenous administration of 100 mL of Omnipaque 350 viathe right hand IV.. FINDINGS: Abdomen: Normal appendix identified on axial image 106 and coronal image38. No bowel obstruction. There is cholelithiasis without CT evidence ofacute cholecystitis. Liver, spleen, pancreas, adrenal glands, and both kidneysare normal. No abdominal aortic aneurysm. No retroperitoneallymphadenopathy. Pelvis: The uterus and ovaries are grossly normal. Urinary bladder is not well distended. No bladder calculi. There are pelvic phleboliths. Nopelvic or inguinal lymphadenopathy. IMPRESSION: Cholelithiasis without evidence of acute cholecystitis. Correlation with Atkins's sign is recommended. THIS IS AN ELECTRONICALLY VERIFIED REPORT 09/17/2014 1:19 AM: Shaheen Cleary M.D. Shaheen Cleary M.D. MA:[email or web address] 01:19 AM 01:19 AM [facility] [EOD] us Amaris Huerta MD IM CT PROCEDURES Final R esult * (ABNORMAL) Urinalysis reflex to microscopic and culture (09/16/2014 10:33 PM SUPERVISOR FERTILIZER PROCESSING) Ur Collection Type CLEAN CATCH Ur Culture Indicated? C&S NOT INDICATED Urine Color YELLOW YELLOW Urine Clarity HAZY CLEAR Urine Glucose (UA) NORMAL NORMAL mg/dL Urine Bilirubin NEGATIVE NEGATIVE mg/dl Urine Ketones NEGATIVE NEGATIVE mg/dL Ur Specific [place] 1.027(H) 1.005 - 1.025 Urine Blood 0.03(H) NEGATIVE mg/dl Urine pH 6.0 5.0 - 8.0 Urine Protein 10(H) NEGATIVE mg/dL Urine Urobilinogen NORMAL NORMAL mg/dL Urine Nitrite NEGATIVE NEGATIVE Ur Leukocyte Esterase NEGATIVE NEGATIVE Montez/ul Ur Microscopic Review Indicated or Ordered Urine RBC 2 0 - 2 /HPF Urine WBC 1 0 - 2 /HPF Urine Bacteria Rare /HPF Urine Mucus Marked /LPF Ur Squamous Epith Cells Rare /HPF 09/16/2014 10:3 3 PM SUPERVISOR FERTILIZER PROCESSING 09/16/2014 11:06 PM SUPERVISOR FERTILIZER PROCESSING Narrative [facility] HISTORICAL RESULTS - 09/16/2014 11:38 PM SUPERVISOR FERTILIZER PROCESSING Collected By HAMLET ?? [phone] ?? Kati MAURICE LAB MICROBIOLOGY - GENERAL OR DERABLES Final Result Performing Organization Address [facility]/ZIP Co de Phone Number [facility] HISTORICAL RESULTS * Lipase (09/16/2014 9:21 PM SUPERVISOR FERTILIZER PROCESSING) Lipase 17 13 - 60 U/L 09/16/2014 9:21 PM SUPERVISOR FERTILIZER PROCESSING 09/16/2014 9:23 PM SUPERVISOR FERTILIZER PROCESSING Kati MAURICE LAB BLOOD ORDERABLES Final Re sult Performing Organization Address [facility] Co de Phone Number [facility] HISTORICAL RESULTS * (ABNORMAL) Comprehensive metabolic panel (09/16/2014 9:21 PM SUPERVISOR FERTILIZER PROCESSING) Pathologist [facility] Sodium 138 135 - 145 mmol/L Potassium 3.9 3.3 - 5.1 mmol/L Chloride 101 96 - 108 mmol/L Carbon Dioxide 25 22 - 32 mmol/L Anion Gap 12 7 - 16 Glucose 109(H) 70 - 100 mg/dL Comment:As of June 27 14 new normal range in use. BUN 12 6 - 20 mg/dL Creatinine 0.6 0.5 - 1.1 mg/dL Kidney Disease Stage [...] Kidney failure or on dialysis @ Calcium 8.1(L) 8.6 - 10.0 mg/dL Total Protein 7.2 6.4 - 8.3 g/dL Albumin 3.7 3.5 - 5.2 g/dL Globulin 3.5 2.3 - 3.5 gm/dL Albumin/Globulin Ratio 1.1 1.1 - 1.8 Total Bilirubin 0.4 0.0 - 1.2 mg/dL AST 14 0 - 32 U/L ALT 12 0 - 33 U/L Alkaline Phosphatase 59 35 - 104 U/L 09/16/2014 9:21 PM SUPERVISOR FERTILIZER PROCESSING 09/16/2014 9:23 PM SUPERVISOR FERTILIZER PROCESSING us Kati MAURICE LAB BLOOD ORDERABLES Final Re sult [facility] [employer] HISTORICAL RESULTS * (ABNORMAL) CBC with auto differential (09/16/2014 9:21 PM SUPERVISOR FERTILIZER PROCESSING) [facility] WBC 10.0 4.6 - 10.2 x10 3/ul 09/16/2014 9:26 PM SUPERVISOR FERTILIZER PROCESSING [facility] [employer] HISTORICAL RESULTS RBC 4.76 3.76 - 4.80 x10 6/ul 09/16/2014 9:26 PM SUPERVISOR FERTILIZER PROCESSING [facility] [employer] HISTORICAL RESULTS Hemoglobin 11.1 11.0 - 15.0 g/dl 09/16/2014 9:26 PM [facility] [employer] HISTORICAL RESULTS Hct 35.1 33.0 - 43.0 % 09/16/2014 9:26 PM [facility] HISTORICAL RESULTS MCV 73.7(L) 80.0 - 97.0 fl 09/16/2014 9:26 PM [facility] [employer] [facility] HISTORICAL RESULTS MCH 23.3(L) 27.0 - 31.2 pg 09/16/2014 9:26 PM [facility] [employer] HISTORICAL RESULTS MCHC 31.6(L) 31.8 - 35.4 g/dl 09/16/2014 9:26 PM [facility] [employer] HISTORICAL RESULTS RDW 17.6(H) 11.6 - 14.8 % 09/16/2014 9:26 PM [facility] [employer] HISTORICAL RESULTS Plt Count 390 124 - 400 x10 3/ul 09/16/2014 9:26 PM [facility] [employer] HISTORICAL RESULTS MPV 9.3 7.4 - 10.4 fl 09/16/2014 9:26 PM [facility] [employer] HISTORICAL RESULTS Differential Method AUTOMATED DIFF --------- -- 09/16/2014 9:26 PM [facility] [employer] HISTORICAL RESULTS Neut % 84.1 37.0 - 85.0 % 09/16/2014 9:26 PM [facility] [employer] HISTORICAL RESULTS Immature Gran % 0.2 0.0 - 3.0 % 09/16/2014 9:26 PM [facility] [employer] [facility] HISTORICAL RESULTS Lymph % 9.2 5.0 - 45.0 % [place] % 5.5 3.0 - 15.0 % Eos % 0.7 0.0 - 7.0 % Baso % 0.3 0.0 - 2.0 % ABSOLUTE COUNTS ABSOLUTE COUNTS --------- -- Absolute Neuts (auto) 8.4 1.7 - 8.7 x10 3/ul Immature Gran # 0.0 0.0 - 0.3 x10 3/ul Absolute Lymphs (auto) 0.9 0.2 - 4.6 x10 3/ul Absolute Monos (auto) 0.6 0.1 - 1.5 x10 3/ul Absolute Eos (auto) 0.1 0.0 - 0.7 x10 3/ul Absolute Basos (auto) 0.0 0.0 - 0.2 x10 3/ul 09/16/2014 9:21 PM [facility] 09/16/2014 9:23 PM [facility] us Kati MAURICE LAB BLOOD ORDERABLES Final Re sult [facility] HISTORICAL RESULTS documented in this encounter Visit Diagnoses Diagnosis Calculus of gallbladder and bile duct without cholecystitis Calculus of gallbladder and bile duct without cholecystitis, without mention of obstruction documented in this encounter
--- OUTSIDE RECORDS SUMMARY | 2024-07-11 07:55 | XMS_ITS | Continuity of Care Document ---
Author Organization [facility] Address [address] [facility] [address] [place] [address] Phone Care Team Providers Care County Auditor Name Role Phone Vickey TOWNSEND, TARAT, Priti Unavailable Unavailable Procedures Procedure Date Progress Note Therapeutic Exercise Neuromuscular Re-Ed Manual Therapy Therapeutic Activities Hot or Cold Pack Therapeutic Exercise Neuromuscular Re-Ed Therapeutic Activities Manual Therapy Hot or Cold Pack Therapeutic Activities Neuromuscular Re-Ed Therapeutic Exercise Manual Therapy Hot or Cold Pack Neuromuscular Re-Ed Therapeutic Activities Manual Therapy Therapeutic Exercise Hot or Cold Pack PT Evaluation Low Complexity Neuromuscular Re-Ed Therapeutic Activities Therapeutic Exercise Advance Directives Directive Yes / No Effective Date File Name No Information Encounters Encounter Description Practice Location Reason(s) For Visit Diagnoses Date Provider Providers Copied on Encounter [facility], [address] [address], [place], [place], [id number], tel:[phone] [place] No Information 0 Vickey Marcos. . Referring Provider: El Rodríguez, [address] [place] [address], [address]. tel:[phone] [facility], [id number], tel:[phone] [place] No Information Dec-1 0-202 0 Lehnen Priti. . Referring Provider: El Rodríguez, [address] [place] [address], [address]. tel:[phone] [facility] [address] [place] [address], [id number], tel:[phone] [place] No Information Dec-0 3-202 0 Lehnen Priti. . Referring Provider: El Rodríguez, [address] [place] [address], [address]. tel:[phone], [id number], tel:[phone] [place] No Information May-3 0-202 0 Lehnen Priti. . Referring Provider: El Rodríguez, [address] [place] [address], [address]. tel:[phone], [id number], tel:[phone] [place] No Information May-2 4-202 0 Lehnen Priti. . Referring Provider: El Rodríguez, [address] [place] [address], [address]. tel:[phone] Family History Family Member Type Diagnosis Age At Onset No Information Payers Payer name Insurance type Covered green party ID Enriqueta paulson(melvin Knutson [facility] CI [id number] Social History Type Description Quantity Date Captured Comments Sex Female Smoking Status No Information Chief Complaint And Reason For Visit No Information Reason For Referral Reason For Referral No Information Plan Of Treatment Date Type Action Status Referral Ordered: PCP timeframe: 1 week. (related to Overweight) ordered Referral Ordered: Weight management: Referral to physician timeframe: 1 Month. (related to Overweight) ordered History Of Present Illness Encounter Date Complaint History Of Prese nt Illness No Information Functional Status Date Functional Assessmen t No Information Instructions Date Instruction Additional Infor mation No Information Assessments Type Assessment Date No Information Patient Care Teams Name Effective Dates (start - stop) Status Members No Information
--- OUTSIDE RECORDS SUMMARY | 2024-07-11 07:55 | XMS_ITS | Continuity of Care Document ---
Author Organization [facility] Address [address] [place] [address] Phone Care Team Providers Care Rough Rice Tender Name Role Phone Torsten Katz MD Unavailable Unavailable Medications Medication Instructions Dosage Effective Dates (start - stop) Status Comments Ativan 2 mg tablet take 1 tablet by oral route 1 hr prior to procedure - No Longer Active Procedures Procedure Date Office consultation, [facility] X-ray exam both knees, standing 022 X-ray exam knee, 1 or 2 views 2 Independent Medical Examination ROXANE Advance Directives Directive Yes / No Effective Date File Name No Information Encounters Encounter Description Practice Location Reason(s) For Visit Diagnoses Date Provider Providers Copied on Encounter Office consultation, [facility] [employer] [facility], [facility] [address], [id number], [place] tel:[phone] [facility] [employer] [facility] left knee (chief complaint) Unilateral primary osteoarthriti s, left kneePain in left knee 2 Sterling Sarmiento. [address] [place] [address], [address], [id number] , [place]. tel:[phone] Referring Provider: Torsten Kingsley, [address] [place] [address], [place], [address] . tel:[phone] [employer] [facility], [address] [place] [address], [id number], [place] tel:[phone] [facility] No Information 2 Sterling Torsten. [address], [place], [place], [id number] , [place]. tel: [phone] Independent Medical Examination ROXANE [facility], [address], [place], [place], [id number], [place] tel:[phone] [facility] left knee (chief complaint) Pain in left knee 2 Estefanijoey Sarmiento. [address] [facility], [address], [place], [place], [id number] , [place]. tel: [phone] Referring Provider: Torsten Kingsley, [facility] [address] [facility], [place], [address] . tel:[phone] Family History Family Member Type Diagnosis Age At Onset Mother Problem (finding) Diabetes Mother Problem (finding) Stroke Mother Problem (finding) Cancer, unknown Brother Problem (finding) Depression Problem Family history of Mental ill ness Problem Family history of seizure di sorder Problem Family history of hypertensi on Problem Family history of Diabetes m ellitus Mother Problem (finding) Hypertension Mother Problem (finding) Osteoarthritis Payers Payer name Insurance type Covered republican ID Enriqueta paulson(s) [facility] [employer] Compensation Adm [id number] Social History Type Description Quantity Date Captured Comments Alcohol Use Details Caffeine Use Details Unknown Tobacco Use Status Current non-smoker Smoking Status Never smoker Non-Smoking Tobacco Use Details : No Details Available : No Details Available Sex Female Vital Signs Date / Time: Height Weight BMI Pulse Rate Blood Pressure Temperature Respiratory Rate Body Surface Area Head Circumference Head Circ. Percentile Wt./Levi. Percentile BMI percentile Pulse Ox Inhaled Ox 12:50 PM 66.00 in 96.615 kg (213.00 lbs) 34.3 8 kg/m eter (2) Chief Complaint And Reason For Visit From encounter dated '04/03/2022 12:30'. left knee (chief complaint). Description: Rowena returns to the office for left knee follow up. Reason For Referral Reason For Referral No Information Plan Of Treatment Date Type Action Status Referral Ordered: X-ray exam both knees, standing ordered Referral Ordered: X-ray exam knee, 1 or 2 views LT ordered Referral Ordered: MRI lower extrm joint, with contrast LT knee ordered History Of Present Illness Encounter Date Complaint History Of Prese nt Illness left knee Rowena returns t o the office for left knee follow up. left knee Rowena presents to the office for left knee complaints. Functional Status Date Functional Assessmen t No Information Instructions Date Instruction Additional Infor mation No Information Assessments Type Assessment Date assessment Unilateral primary osteoarthriti s, left knee Patient Care Teams Name Effective Dates (start - stop) Status Members No Information
--- OUTSIDE RECORDS SUMMARY | 2024-07-11 07:55 | XMS_ITS | Continuity of Care Document ---
Author Organization [facility] Address [address] [facility] [place] [address] Phone Care Team Providers Care Home Health Care Worker Name Role Phone Julito Avalos MD Unavailable Unavailable Advance Directives Directive Yes / No Effective Date File Name No Information Encounters Encounter Description Practice Location Reason(s) For Visit Diagnoses Date Provider Providers Copied on Encounter [facility], [address] [place] [address] [facility] [place], [facility], tel:[phone] [facility] No Information Robbie Vila. [address] [place], [place], [facility]. tel:[phone] Family History Family Member Type Diagnosis Age At Onset No Information Payers Payer name Insurance type Covered alliance party ID Authoriza tion(s) No Information Social History Type Description Quantity Date Captured Comments Sex Female Smoking Status No Information Chief Complaint And Reason For Visit No Information Plan Of Treatment Date Type Action Status No Information History Of Present Illness Encounter Date Complaint History Of Prese nt Illness No Information Instructions Date Instruction Additional Infor mation No Information Assessments Type Assessment Date No Information
--- OUTSIDE RECORDS SUMMARY | 2024-07-11 12:20 | XMS_ITS | Encounter Summary ---
Author Organization [facility] Address [address] [place] [address]. [place], [place] [address] [place] [address] Care Team Providers Care Specimen Transporter Name Role Phone Unavailable Primary Care Provider Unavailabl e Encounter Details Date Type Department Care Team (Late st Contact Info) Description 07/08/2015 Abstract [facility] [address] [place] [address] , Generic ConversionMD Social History [...] Diagnosis Comments CBC,CONVERSION Routine 07/08/2015 12:00 AM STOCKROOM SUPERVISOR THYROID PANEL Routine 07/08/2015 12:00 AM STOCKROOM SUPERVISOR COMPREHENSIVE METABOLIC PANEL Routine 07/08/2015 12:00 AM STOCKROOM SUPERVISOR documented in this encounter Results * CBC,CONVERSION (07/08/2015 12:00 AM STOCKROOM SUPERVISOR) WBC 10.7 3.8 - 10.8 thous/mcl [facility] TO EPIC CONVERSION HGB 10.7 12.0 - 15.6 g/dl [facility] TO EPIC CONVERSION HCT 34.2 35.0 - 46.0 % [facility] TO EPIC CONVERSION PLATELET COUNT 408 130 - 400 thous/mcl [facility] TO EPIC CONVERSION 07/08/2015 07/08/2015 us Generic Conversion Md [facility] Final R esult MED[facility] TO EPIC CONVERSION * THYROID PANEL (07/08/2015 12:00 AM STOCKROOM SUPERVISOR) TSH 1.14 0.4 - 5.5 micro IU/ml [facility]IN[employer] TO EPIC CONVERSION 07/08/2015 07/08/2015 Narrative MEDIN[facility] TO EPIC CONVERSION - 07/16/2015 3:42 PM STOCKROOM SUPERVISOR Reviewed by RONEL Jul 16 2015 ??3:42:33:000PM us Generic Conversion Md [facility] MED[facility]FORMAT[facility] TO EPIC CONVERSION * COMPREHENSIVE METABOLIC PANEL (07/08/2015 12:00 AM STOCKROOM SUPERVISOR) SODIUM S/P/B 141 135 - 146 meq/l [...]
--- OUTSIDE RECORDS SUMMARY | 2024-07-11 12:20 | XMS_ITS | Encounter Summary ---
Author Organization [facility] Address [address] [place] [address]. [place], [place] [address] [place] [address] Care Team Providers Care Surgical Technologist Name Role Phone Unavailable Primary Care Provider Unavailabl e Encounter Details Date Type Department Care Team (Late st Contact Info) Description 08/30/2015 [facility] AT [address] [place] [address] , Jayce Pinon MD Social History Tobacco [...]
--- OUTSIDE RECORDS SUMMARY | 2024-07-11 12:20 | XMS_ITS | Encounter Summary ---
Author Organization [facility] Address [address] [place] [address]. [place], [place] [address] [place] [address] Care Team Providers Care Office Machine Punch Operator Name Role Phone Baldomero Dominugez MD Primary Care Provider [phone] Cesar Gonzalez MD Unavailable Tram Dia MD Unavailable Reason for Visit * Reason Onset Date Comments Information 11/17/2016 medical records Encounter Details Date Type Department Care Team (Late st Contact Info) Description 11/17/2016 [facility] AT [address] [address] Cesar Gonzalez MD [address] [place] [address] Information (medical records) Social History Tobacco [...] asked me to fax a release to [phone]. Her PCP is going to take care of her cardiac needs. 11/17/16 release faxed. documented in this encounter Plan of Treatment Not on file documented as of this encounter Visit Diagnoses Not on filedocumented in this encounter Care Teams Office Machine Punch Operator Relationship Specialty Start Date End Date Baldomero Dominguez MD [address] [place] [address] PCP - General FAMILY PRACTICE 01/24/16 Cesar Gonzalez MD [address] [place] [address] EP Clinical Practice Consultant CARDIOVASCULAR DISEASE 01/24/16 Tram Dia MD [address] [address] EP Clinical Practice Consultant CARDIOVASCULAR DISEASE 09/24/16 documented as of this encounter
--- OUTSIDE RECORDS SUMMARY | 2024-07-11 12:20 | XMS_ITS | Encounter Summary ---
Author Organization [facility] Address [address] [place] [address]. [place] [address] [place] [address] Care Team Providers Care Internal Communications Manager Name Role Phone Baldomero Dominguez MD Primary Care Provider [phone] Cesar Gonzalez MD Unavailable Tram Dia MD Unavailable Encounter Details Date Type Department Care Team (Late st Contact Info) Description 08/30/2015 Abstract [facility] [place] [address] [place] [address] Deloris Gutierrez PA-C [id number] [place] [address] Social History Tobacco Use Types [...] Start Date Job End Date Works at [employer] Not on file Not on file N ot on file documented as of this encounter Plan of Treatment Not on file documented as of this encounter Visit Diagnoses Not on filedocumented in this encounter Care Teams Internal Communications Manager Relationship Specialty Start Date End Date Baldomero Dominguez MD [address] [facility] [address] [place] [address] PCP - General FAMILY PRACTICE 01/24/16 Cesar Gonzalez MD [address] [place] [address] EP Dispatcher Refinery CARDIOVASCULAR DISEASE 01/24/16 Tram Dia MD [facility]. [address] [address] EP Dispatcher Refinery CARDIOVASCULAR DISEASE 09/24/16 documented as of this encounter
--- OUTSIDE RECORDS SUMMARY | 2024-07-11 12:20 | XMS_ITS | Encounter Summary ---
Author Organization [facility] Address [facility] [place] [address] [place] [address] Care Team Providers Care Fish And Wildlife Warden Name Role Phone Baldomero Dominguez MD Primary Care Provider [phone] Cesar Gonzalez MD Unavailable Encounter Details Date Type Department Care Team (Late st Contact Info) Description 02/07/2016 Orders Only [facility] [place] [address] [place] [address] Sabra Sousa, TRICHOLOGIST Social History Tobacco Use Types Packs/Day Years [...] Start Date Job End Date Works at [employer] Not on file Not on file N ot on file documented as of this encounter Plan of Treatment Not on file documented as of this encounter Visit Diagnoses Not on filedocumented in this encounter Care Teams Fish And Wildlife Warden Relationship Specialty Start Date End Date Baldomero Dominguez MD [address] [facility] 3 [place] [address] PCP - General FAMILY PRACTICE 01/24/16 Cesar Gonzalez MD [address] [place] [address] EP Software Quality Tester CARDIOVASCULAR DISEASE 01/24/16 documented as of this encounter
--- OUTSIDE RECORDS SUMMARY | 2024-07-11 12:20 | XMS_ITS | Encounter Summary ---
Author Organization [facility] Address [facility] [facility]. [place], [place] [address] [place] [address] Care Team Providers Care Automotive Project Engineer Name Role Phone Baldomero Dominguez MD Primary Care Provider [phone] Cesar Gonzalez MD Unavailable Encounter Details Date Type Department Care Team (Late st Contact Info) Description 02/28/2014 [facility] [place] [address] [place] [address] , Jayce Pinon MD Social History Tobacco [...] on filedocumented in this encounter Care Teams Automotive Project Engineer Relationship Specialty Start Date End Date Baldomero Dominguez MD [address] [facility] 3 [place] [address] PCP - General FAMILY PRACTICE 01/24/16 Cesar Gonzalez MD [address] [place] [address] EP State Game Warden CARDIOVASCULAR DISEASE 01/24/16 documented as of this encounter
--- OUTSIDE RECORDS SUMMARY | 2024-07-11 12:20 | XMS_ITS | Encounter Summary ---
Author Organization [facility] Address [facility]. [place], [place] [address] [place] [address] Care Team Providers Care Facility Maintenance Helper Name Role Phone Baldomero Dominguez MD Primary Care Provider [phone] Cesar Gonzalez MD Unavailable Encounter Details Date Type Department Care Team (Late st Contact Info) Description 02/28/2014 [facility] AT [address] [place] [address] , Jayce Pinon MD Social History Tobacco [...] on filedocumented in this encounter Care Teams Facility Maintenance Helper Relationship Specialty Start Date End Date Baldomero Dominguez MD [address] [facility] 3 [place] [address] PCP - General FAMILY PRACTICE 01/24/16 Cesar Gonzalez MD [address] [place] [address] EP Full Decator Operator CARDIOVASCULAR DISEASE 01/24/16 documented as of this encounter
--- OUTSIDE RECORDS SUMMARY | 2024-07-11 12:20 | XMS_ITS | Encounter Summary ---
Author Organization [facility] Address [address] [place] [address]. [place], [place] [address] [place] [address] Care Team Providers Care Bagman/Woman Name Role Phone Baldomero Dominguez MD Primary Care Provider [phone] Cesar Gonzalez MD Unavailable Reason for Visit * Reason Onset Date Comments Information 02/14/2016 extended FMLA Encounter Details Date Type Department Care Team (Late st Contact Info) Description 02/14/2016 Telephone [employer] [facility] AT [address] [address] Cesar Gonzalez MD [address] [place] [address] Information (extended FMLA) Social History Tobacco [...] Start Date Job End Date Works at [employer] Not on file Not on file N ot on file documented as of this encounter Progress Notes * Deloris Gutierrez PA-C - 02/14/2016 3:23 PM CDT Returned patients phone call at requested number of [phone], no answer. Call patients work/cell phone. No [...] on filedocumented in this encounter Care Teams Bagman/Woman Relationship Specialty Start Date End Date Baldomero Dominguez MD [address] [place] [address] PCP - General FAMILY PRACTICE 01/24/16 Cesar Gonzalez MD [address] [place] [address] EP Analog Device Designer CARDIOVASCULAR DISEASE 01/24/16 documented as of this encounter
--- OUTSIDE RECORDS SUMMARY | 2024-07-11 12:20 | XMS_ITS | Encounter Summary ---
Author Organization [facility] Address [facility] [place] [address] [place] [address] Care Team Providers Care Director Funeral Name Role Phone Baldomero Dominguez MD Primary Care Provider [phone] Cesar Gonzalez MD Unavailable Tram Dia MD Unavailable Encounter Details Date Type Department Care Team (Late st Contact Info) Description 05/21/2008 Abstract [facility] [address] [place], [place] [id number] , Jayce Pinon MD Social History Tobacco [...] filedocumented in this encounter Care Teams Director Funeral Relationship Specialty Start Date End Date Baldomero Dominguez MD [address] [facility] 3 [place] [address] PCP - General FAMILY PRACTICE 01/24/16 Cesar Gonzalez MD [address] [place] [address] EP Solutions Delivery Consultant CARDIOVASCULAR DISEASE 01/24/16 Tram Dia MD [facility]. [address] [address] EP Solutions Delivery Consultant CARDIOVASCULAR DISEASE 09/24/16 documented as of this encounter
--- OUTSIDE RECORDS SUMMARY | 2024-07-11 12:20 | XMS_ITS | Encounter Summary ---
Author Organization [facility] Address [address] [place] [address]. [place], [place] [address] [place] [address] Care Team Providers Care Sap Bw Bi Developer Name Role Phone Baldomero Dominguez MD Primary Care Provider [phone] Cesar Gonzalez MD Unavailable Tram Dia MD Unavailable Encounter Details Date Type Department Care Team (Late st Contact Info) Description 02/28/2014 Abstract [place] [address] Cesar Gonzalez MD [address] [place] [address] Social History Tobacco Use Types [...] Visit Diagnoses Diagnosis Paroxysmal supraventricular tachycardia (CMS/HCC [facility]/HCC) Paroxysmal supraventricular tachycardia documented in this encounter Care Teams Sap Bw Bi Developer Relationship Specialty Start Date End Date Baldomero Dominguez MD [address] [address] PCP - General FAMILY PRACTICE 01/24/16 Cesar Gonzalez MD [address] [place] [address] EP Residential Sales Executive CARDIOVASCULAR DISEASE 01/24/16 Tram Dia MD [facility]. [address] [place] [address] EP Residential Sales Executive CARDIOVASCULAR DISEASE 09/24/16 documented as of this encounter
--- OUTSIDE RECORDS SUMMARY | 2024-07-11 12:20 | XMS_ITS | Encounter Summary ---
Author Organization [facility] Address [address] [place] [address]. [place], [place] [address] [place] [address] Care Team Providers Care Assembler Skylights Name Role Phone Baldomero Dominguez MD Primary Care Provider [phone] Cesar Gonzalez MD Unavailable Reason for Visit * Reason Onset Date Comments Information 09/23/2016 [employer] FMLA Encounter Details Date Type Department Care Team (Late st Contact Info) Description 09/23/2016 Telephone [facility] AT [address] [address] Tram Dia MD [address] [address] Information ([employer] FMLA) Social History [...] Start Date Job End Date Works at [employer] Not on file Not on file [...] said All FMLAs start with 6 mos. UNTING REPRESENTATIVE documented in this encounter Plan of Treatment Not on file documented as of this encounter Visit Diagnoses Not on filedocumented in this encounter Care Teams Assembler Skylights Relationship Specialty Start Date End Date Baldomero Dominguez MD [address] [place] [address] PCP - General FAMILY PRACTICE 01/24/16 Cesar Gonzalez MD [address] [place] [address] EP Club Lounge Attendant CARDIOVASCULAR DISEASE 01/24/16 documented as of this encounter
--- OUTSIDE RECORDS SUMMARY | 2024-07-11 12:20 | XMS_ITS | Encounter Summary ---
Author Organization [facility] Address [address] [place] [address]. [place], [place] [address] [place] [address] Care Team Providers Care Mfg Assoc Name Role Phone Unavailable Primary Care Provider Unavailabl e Encounter Details Date Type Department Care Team (Late st Contact Info) Description 03/01/2015 [facility] [place] AT [address] [place] [address] , Jayce Pinon MD Social History Tobacco [...]
--- OUTSIDE RECORDS SUMMARY | 2024-07-11 12:20 | XMS_ITS | Encounter Summary ---
Author Organization [facility] Address [address] [place] [address]. [place], [place] [address] [place] [address] Care Team Providers Care Boring Machine Operator Production Name Role Phone Unavailable Primary Care Provider Unavailabl e Encounter Details Date Type Department Care Team (Late st Contact Info) Description 02/27/2005 Abstract [facility] AT [address] [place] [phone] , Generic Conversion, Social History Tobacco Use [...]
--- OUTSIDE RECORDS SUMMARY | 2024-07-11 12:20 | XMS_ITS | Encounter Summary ---
Author Organization [facility] Address [address] [place] [address]. [place], [place] [address] [place] [address] Care Team Providers Care 8Th Grade Mathematics Teacher Name Role Phone Unavailable Primary Care Provider Unavailabl e Encounter Details Date Type Department Care Team (Late st Contact Info) Description 08/30/2015 Abstract [facility] AT [address] [address] , Jayce Pinon MD Social History Tobacco [...]
--- OUTSIDE RECORDS SUMMARY | 2024-07-11 12:20 | XMS_ITS | Encounter Summary ---
Author Organization [facility] Address [address] [place] [address]. [place], [place] [address] [place] [address] Care Team Providers Care Mechanic Name Role Phone Baldomero Dominguez MD Primary Care Provider [phone] Cesar Gonzalez MD Unavailable Reason for Visit * Reason Onset Date Comments Appointment Request 09/16/2016 Encounter Details Date Type Department Care Team (Late st Contact Info) Description 09/16/2016 Telephone [facility] AT [address] [address] Ninoska [place]oades, [place] [address] Appointment Request Social History Tobacco Use Types [...] Date Job End Date Works at [employer] Not on file Not on file N ot on file documented as of this encounter Progress Notes * Deloris Gutierrez PA-C - 09/16/2016 11:17 AM CST She can be seen. She needs an ablation. Thanks Deloris DRIER * Ninoska Rhoades RN - 09/16/2016 10:58 [...] if she can be seen preferably tomorrow. DRIER * Ninoska Rhoades RN - 09/16/2016 8:51 [...] with family for to call our office. DRIER documented in this encounter Plan of Treatment Not on file documented as of this encounter Visit Diagnoses Not on filedocumented in this encounter Care Teams Mechanic Relationship Specialty Start Date End Date Baldomero Dominguez MD [address] [place] [address] PCP - General FAMILY PRACTICE 01/24/16 Cesar Gonzalez MD [address] [place] [address] EP Manager Of Radiology CARDIOVASCULAR DISEASE 01/24/16 documented as of this encounter
--- OUTSIDE RECORDS SUMMARY | 2024-07-11 12:20 | XMS_ITS | Encounter Summary ---
Author Organization [facility] Address [address] [place] [address]. [place], [place] [address] [place] [address] Care Team Providers Care Team Psychologist Name Role Phone Unavailable Primary Care Provider Unavailabl e Encounter Details Date Type Department Care Team (Late st Contact Info) Description 02/01/2014 Abstract [facility] AT [address] [address] , Jayce Pinon MD Social History Tobacco [...]
--- OUTSIDE RECORDS SUMMARY | 2024-07-11 12:20 | XMS_ITS | Encounter Summary ---
Author Organization [facility] Address [address] [place] [address]. [place], [place] [address] [place] [address] Care Team Providers Care Metallurgical Inspector Name Role Phone Baldomero Dominguez MD Primary Care Provider [phone] Cesar Gonzalez MD Unavailable Reason for Visit * Reason Onset Date Comments Information 09/09/2016 Patient call re: FMLA Encounter Details Date Type Department Care Team (Late st Contact Info) Description 09/09/2016 Telephone [facility] 248370 Cesar Gonzalez MD [address] [place] [address] Information (Patient call re: [facility]) Social History Tobacco Use Types Packs/Day [...] Start Date Job End Date Works at [employer] Not on file Not on file N ot on file documented as of this encounter Progress Notes * Ashlie Pena - 09/09/2016 9:36 AM CST 09/09/16 Patient called and asked me to fax release to [phone] (her work fax no.) She will fax back with [facility] papers to be completed. ITORY SALES EXECUTIVE documented in this encounter Plan of Treatment Not on file documented as of this encounter Visit Diagnoses Not on filedocumented in this encounter Care Teams Metallurgical Inspector Relationship Specialty Start Date End Date Baldomero Dominguez MD [address] [place] [address] PCP - General FAMILY PRACTICE 01/24/16 Cesar Gonzalez MD [address] [place] [address] [id number] EP Stacking Machine Operator CARDIOVASCULAR DISEASE 01/24/16 documented as of this encounter
--- OUTSIDE RECORDS SUMMARY | 2024-07-11 12:20 | XMS_ITS | Encounter Summary ---
Author Organization [facility] Address [address] [place] [address]. [place], [place] [address] [place] [address] Care Team Providers Care Human Resources Generalist Name Role Phone Baldomero Dominguez MD Primary Care Provider [phone] Cesar Gonzalez MD Unavailable Reason for Visit * Reason Onset Date Comments Information 09/15/2016 FMLA Encounter Details Date Type Department Care Team (Late st Contact Info) Description 09/15/2016 Telephone [facility] AT [address] [address] Cesar Gonzalez MD [address] [place] [address] Information (FMLA) Social History Tobacco Use [...] Start Date Job End Date Works at [employer] Not on file Not on file N ot on file documented as of this encounter Progress Notes * Ashlie Pena - 09/15/2016 9:51 AM CST 09/15/16 I put a [employer] FMLA form on Deloris's desk. ATIONAL PSYCHOLOGY PROFESSOR documented in this encounter Plan of Treatment Not on file documented as of this encounter Visit Diagnoses Not on filedocumented in this encounter Care Teams Human Resources Generalist Relationship Specialty Start Date End Date Baldomero Dominguez MD [address] [place] [address] PCP - General FAMILY PRACTICE 01/24/16 Cesar Gonzalez MD [address] [place] [address] EP Scientific Process Operator CARDIOVASCULAR DISEASE 01/24/16 documented as of this encounter
--- OUTSIDE RECORDS SUMMARY | 2024-07-11 12:20 | XMS_ITS | Encounter Summary ---
Author Organization [facility] Address [address] [place] [address]. [place], [place] [address] [place] [address] Care Team Providers Care Toll Relief Operator Name Role Phone Unavailable Primary Care Provider Unavailabl e Encounter Details Date Type Department Care Team (Late st Contact Info) Description 11/01/2014 Abstract [facility] AT [address] [address] , Jayce Pinon MD Social History Tobacco [...]
--- OUTSIDE RECORDS SUMMARY | 2024-07-11 12:20 | XMS_ITS | Encounter Summary ---
Author Organization [facility] Address [address] [place] [address]. [place], [place] [address] [place] [address] Care Team Providers Care Acute Care Assistant Name Role Phone Baldomero Dominguez MD Primary Care Provider [phone] Cesar Gonzalez MD Unavailable Reason for Visit * Reason Onset Date Comments Information 09/23/2016 [employer] / FMLA Encounter Details Date Type Department Care Team (Late st Contact Info) Description 09/23/2016 Telephone [employer] [facility] AT [address] [address] Tram Dia MD [address] [address] Information (Cigna / FMLA) Social [...] Start Date Job End Date Works at [employer] Not on file Not on file N ot on file documented as of this encounter Progress Notes * Ashlie Pena - 09/23/2016 1:19 PM CST 09/23/16 received another FMLA form, (the same as we faxed one week ago). I called patient and she isgoing to see if this needs to be completed again.Form is in green folder.jcp JAVA DEVELOPER documented in this encounter Plan of Treatment Not on file documented as of this encounter Visit Diagnoses Not on filedocumented in this encounter Care Teams Acute Care Assistant Relationship Specialty Start Date End Date Baldomero Dominguez MD [address] [place] [address] PCP - General FAMILY PRACTICE 01/24/16 Cesar Gonzalez MD [address] [place] [address] EP Director Of [facility] CARDIOVASCULAR DISEASE 01/24/16 documented as of this encounter
--- OUTSIDE RECORDS SUMMARY | 2024-07-11 12:20 | XMS_ITS | Encounter Summary ---
Author Organization [facility] Address [address] [place] [address]. [place] [address] [place] [address] Care Team Providers Care Switch Cleaner Name Role Phone Unavailable Primary Care Provider Unavailabl e Encounter Details Date Type Department Care Team (Late st Contact Info) Description 09/02/2015 Abstract [facility] AT [address] [place] [phone] , Jayce Pinon MD Social History Tobacco [...] Comments Blood Pressure 138/68 09/02/2015 8:55 AM STUDIO POTTER Pulse 94 09/02/2015 8:55 AM STUDIO POTTER Temperature - - Respiratory Rate - - Oxygen Saturation - - Inhaled Oxygen Concentration - - Weight 120.2 kg (265 lb) 09/02/2015 8:55 AM STUDIO POTTER Height 167.6 cm (5' 6 ) 09/02/2015 8:55 AM STUDIO POTTER Body Mass Index 42.77 09/02/2015 8:55 AM STUDIO POTTER documented in this encounter Plan of Treatment Not on file documented as of this encounter Visit Diagnoses Not on filedocumented in this encounter
--- OUTSIDE RECORDS SUMMARY | 2024-07-11 12:20 | XMS_ITS | Encounter Summary ---
Author Organization [facility] Address [address] [place] [address]. [place], [place] [address] [place] [address] Care Team Providers Care Marketing Writer Name Role Phone Baldomero Dominguez MD Primary Care Provider [phone] Cesar Gonzalez MD Unavailable Reason for Visit * Reason Comments Palpitations 6 month follow up Supraventricular Tachycardia Encounter Details Date Type Department Care Team (Latest Contact Info) Description 08/13/2016 2:00 PM PROCEDURAL NURSE Office Visit [place] [facility] AT [address] [address] Deloris Gutierrez PA-C [address] [address] Palpitations (6 month follow up); [...] Start Date Job End Date Works at [employer] Not on file Not on file N ot on file documented as of this encounter Last Filed Vital Signs Vital Sign Reading Time Taken Comments Blood Pressure 124/80 08/13/2016 2:29 PM PROCEDURAL NURSE Pulse 82 08/13/2016 2:29 PM PROCEDURAL NURSE Temperature - - Respiratory Rate - - Oxygen Saturation 97% 08/13/2016 2:29 PM PROCEDURAL NURSE Inhaled Oxygen Concentration - - Weight 126.6 kg (279 lb) 08/13/2016 2:29 PM PROCEDURAL NURSE Height 167.6 cm (5' 6 ) 08/13/2016 2:29 PM PROCEDURAL NURSE Body Mass Index 45.03 08/13/2016 2:29 PM PROCEDURAL NURSE documented in this encounter Patient Instructions * Patient Instructions* Reyna Lowery - 08/13/2016 2:00 PM PROCEDURAL NURSE Images from the original note were not [...] healthcare provider's instructions for treatment. Developed by [employer]. Adult Advisor 2016.3 published by [employer]. Last modified: 2015-10-16 Last reviewed: 2014-12-10 This content is reviewed periodically and is subject to change as new health information becomes available. The information is intended to inform and educate and is not a replacement for medical evaluation, advice, diagnosis or treatment by a healthcare professional. References Adult Advisor 2015.3 Index Copyright ?? 2016 [employer], a division of [employer]. All rights reserved. EDURAL NURSE documented in this encounter Progress Notes * [...] education: N/A Occupational History ??? Works at [employer] Social History Main Topics ??? Smoking status: [...] content normal. Diagnoses/Impression: 1. SVT (supraventricular tachycardia) EDURAL NURSE documented in this encounter Plan of Treatment Not on file documented as of this encounter Visit Diagnoses Diagnosis SVT (supraventricular tachycardia) (CMS/HCC HHS/HCC)- Primary Other specified cardiac dysrhythmias documented in this encounter Care Teams Marketing Writer Relationship Specialty Start Date End Date Baldomero Dominguez MD [address] [place] [address] PCP - General FAMILY PRACTICE 01/24/16 Cesar Gonzalez MD [address] [place] [address] EP Digital Product Manager CARDIOVASCULAR DISEASE 01/24/16 documented as of this encounter
--- OUTSIDE RECORDS SUMMARY | 2024-07-11 12:20 | XMS_ITS | Encounter Summary ---
Author Organization [facility] Address [address] [place] [address]. [place], [place] [address] [place] [address] Care Team Providers Care Squirt Machine Operator Name Role Phone Baldomero Dominguez MD Primary Care Provider [phone] Cesar Gonzalez MD Unavailable Tram Dia MD Unavailable Reason for Visit * Reason Onset Date Comments Information 10/07/2016 FMLA correction Encounter Details Date Type Department Care Team (Late st Contact Info) Description 10/07/2016 Telephone [facility] AT [address] [address] Deloris Gutierrez PA-C [place] [address] [place] [address] Information (FMLA correction) Social History [...] should be seen by Dr. Dia. Thanks Deloris * Ashlie Pena - 10/07/2016 10:02 AM [...] on filedocumented in this encounter Care Teams Squirt Machine Operator Relationship Specialty Start Date End Date Baldomero Dominguez MD [address] [address] PCP - General FAMILY PRACTICE 01/24/16 Cesar Gonzalez MD [address] [place] [address] EP Senior Controls Analyst CARDIOVASCULAR DISEASE 01/24/16 Tram Dia MD [address] [address] EP Senior Controls Analyst CARDIOVASCULAR DISEASE 09/24/16 documented as of this encounter
--- OUTSIDE RECORDS SUMMARY | 2024-07-11 12:20 | XMS_ITS | Encounter Summary ---
Author Organization [facility] Address [address] [place] [address]. [place], [place] [address] [place] [address] Care Team Providers Care Pre Sales Systems Engineer Name Role Phone Unavailable Primary Care Provider Unavailabl e Encounter Details Date Type Department Care Team (Late st Contact Info) Description 10/24/2012 Abstract [facility] AT [address] [place] [address] , Jayce Pinon MD Social History Tobacco [...]
--- OUTSIDE RECORDS SUMMARY | 2024-07-11 12:20 | XMS_ITS | Encounter Summary ---
Author Organization [facility] Address [address] [place] [address]. [place], [place] [address] [place] [address] Care Team Providers Care Jackhammer Operator Name Role Phone Baldomero Dominguez MD Primary Care Provider [phone] Cesar Gonzalez MD Unavailable Reason for Visit * Reason Onset Date Comments Information 02/05/2016 FMLA Encounter Details Date Type Department Care Team (Late st Contact Info) Description 02/05/2016 Telephone [facility] AT [address] [address] Cesar Gonzalez MD [address] [place] [address] Information (FMLA) Social History Tobacco Use [...] Date Job End Date Works at [employer] Not on file Not on file N ot on file documented as of this encounter Progress Notes * Ashlie Pena - 02/05/2016 3:59 PM CDT 02/05/16 RECEIVED [facility] PAPER WORK AND PUT IT ON ALICIA'S DESK. JCP documented in this encounter Plan of Treatment Not on file documented as of this encounter Visit Diagnoses Not on filedocumented in this encounter Care Teams Jackhammer Operator Relationship Specialty Start Date End Date Baldomero Dominguez MD [address] [place] [address] PCP - General FAMILY PRACTICE 01/24/16 Cesar Gonzalez MD [address] [place] [address] EP Engagement Specialist CARDIOVASCULAR DISEASE 01/24/16 documented as of this encounter
--- OUTSIDE RECORDS SUMMARY | 2024-07-11 12:20 | XMS_ITS | Encounter Summary ---
Author Organization [facility] Address [address] [place] [address]. [place], [place] [address] [place] [address] Care Team Providers Care Invoice Machine Operator Name Role Phone Unavailable Primary Care Provider Unavailabl e Encounter Details Date Type Department Care Team (Late st Contact Info) Description 10/22/2014 Abstract [facility] AT [address] [place] [address] , Generic ConversionMD Social History Tobacco Use [...]
--- OUTSIDE RECORDS SUMMARY | 2024-07-11 12:20 | XMS_ITS | Clinical Summary ---
Author Organization [facility] Address [address] [place] [address]. [place], [place] [address] [place] [address] Care Team Providers Care Demonstrator Sewing Techniques Name Role Phone Baldomero Dominguez MD Primary Care Provider [phone] Tram Dia MD Unavailable Allergies No known [...] Noted Date Diagnosed Date SVT (supraventricular tachycardia) ([facility]) 08/13/2016 Family History Medical History Relation Comments [...] this topic Insurance MEDICAID CIGNA Care Teams Demonstrator Sewing Techniques Relationship Specialty Start Date End Date Baldomero Dominguez MD [address] [facility] 3 [place] [address] PCP - General FAMILY PRACTICE 01/24/16 Tram Dia MD [place] [address] [place] [address] EP Alteration Specialist CARDIOVASCULAR DISEASE 09/24/16
--- OUTSIDE RECORDS SUMMARY | 2024-07-11 12:20 | XMS_ITS | Encounter Summary ---
Author Organization [facility] Address [address] [place] [address]. [place], [place] [address] [place] [address] Care Team Providers Care Paymaster Of Purses Name Role Phone Unavailable Primary Care Provider Unavailabl e Encounter Details Date Type Department Care Team (Late st Contact Info) Description 07/10/2015 [facility] AT [address] [place] [address] , Jayce Pinon MD Social History Tobacco [...]
--- OUTSIDE RECORDS SUMMARY | 2024-07-11 12:20 | XMS_ITS | Encounter Summary ---
Author Organization [facility] Address [facility]. [place], [place] [address] [place] [address] Care Team Providers Care Secondary Market Manager Name Role Phone Baldomero Dominguez MD Primary Care Provider [phone] Cesar Gonzalez MD Unavailable Encounter Details Date Type Department Care Team (Late st Contact Info) Description 06/03/2011 [facility] AT [address] [place] [address] , Jayce Pinon MD Social History Tobacco [...] on filedocumented in this encounter Care Teams Secondary Market Manager Relationship Specialty Start Date End Date Baldomero Dominguez MD [address] [facility] 3 [place] [address] PCP - General FAMILY PRACTICE 01/24/16 Cesar Gonzalez MD [address] [place] [address] EP Hedge Fund Principal CARDIOVASCULAR DISEASE 01/24/16 documented as of this encounter
--- OUTSIDE RECORDS SUMMARY | 2024-07-11 12:20 | XMS_ITS | Encounter Summary ---
Author Organization [facility] Address [address] [place] [address]. [place], [place] [address] [place] [address] Care Team Providers Care Palliative Medicine Physician Name Role Phone Unavailable Primary Care Provider Unavailabl e Encounter Details Date Type Department Care Team (Late st Contact Info) Description 03/01/2015 Abstract [facility] AT [address] [address] , Jayce Pinon MD Social History Tobacco [...]
--- OUTSIDE RECORDS SUMMARY | 2024-07-11 12:20 | XMS_ITS | Encounter Summary ---
Author Organization [facility] Address [facility]. [place], [place] [address] [place] [address] Care Team Providers Care Skip Operator Name Role Phone Baldomero Dominguez MD Primary Care Provider [phone] Cesar Gonzalez MD Unavailable Encounter Details Date Type Department Care Team (Late st Contact Info) Description 11/01/2014 [facility] AT [address] [place] [address] , Jayce Pinon MD Social History Tobacco [...] on filedocumented in this encounter Care Teams Skip Operator Relationship Specialty Start Date End Date Baldomero Dominguez MD [address] [facility] 3 [place] [address] PCP - General FAMILY PRACTICE 01/24/16 Cesar Gonzalez MD [address] [place] [address] EP Picture Engraver CARDIOVASCULAR DISEASE 01/24/16 documented as of this encounter
--- OUTSIDE RECORDS SUMMARY | 2024-07-11 12:20 | XMS_ITS | Encounter Summary ---
Author Organization [facility] Address [address] [place] [address]. [place], [place] [address] [place] [address] Care Team Providers Care Wet Pour Supervisor Name Role Phone Baldomero Dominguez MD Primary Care Provider [phone] Cesar Gonzalez MD Unavailable Reason for Visit * Reason Onset Date Comments Question 05/13/2016 Release letter Encounter Details Date Type Department Care Team (Late st Contact Info) Description 05/13/2016 Telephone [facility] [place] [address] Belle Gonzalez, RN Question (Release letter) Social [...] Start Date Job End Date Works at [employer] Not on file Not on file N ot on file documented as of this encounter Progress Notes * Belle Gonzalez RN - 05/14/2016 1:04 PM CDT Deloris MAURICE informed me that stated he will not sign a release for the patient excusing her from working the late shift and 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 I called the patient and I left her a message to call the office. Provided office number and ext. The patient returned my call and left a message to call her. 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 I returned her call and she stated as above and she informed me that her employer told her she would have to get a written statement excusing her from working this shift. 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 She stated this late shift is not good for her heart condition. I instructed the patient that I will inform 's PA.The patient voiced understanding and had no further questions. Message to 's PA. documented in this encounter Plan of Treatment Not on file documented as of this encounter Visit Diagnoses Not on filedocumented in this encounter Care Teams Wet Pour Supervisor Relationship Specialty Start Date End Date Baldomero Dominguez MD [address] [place] [address] PCP - General FAMILY PRACTICE 01/24/16 Cesar Gonzalez MD [address] [place] [address] EP Dry Heat Cabinet Attendant CARDIOVASCULAR DISEASE 01/24/16 documented as of this encounter
--- OUTSIDE RECORDS SUMMARY | 2024-07-11 12:20 | XMS_ITS | Encounter Summary ---
Author Organization [facility] Address [address] [place] [address]. [place], [place] [address] [place] [address] Care Team Providers Care Public Relations Manager Name Role Phone Baldomero Dominguez MD Primary Care Provider [phone] Tram Dia MD Unavailable Reason for Visit * Reason Onset Date Comments Appointment Request 10/22/2017 Encounter Details Date Type Department Care Team (Late st Contact Info) Description 10/22/2017 Telephone [employer] at [facility], [facility] [address] [place] [address] Tram Dia MD [facility]. [facility] [address] [place] [address] Appointment Request Social History Tobacco [...] on filedocumented in this encounter Care Teams Public Relations Manager Relationship Specialty Start Date End Date Baldomero Dominguez MD [address] [facility] 3 [place] [address] PCP - General FAMILY PRACTICE 01/24/16 Tram Dia MD [place] [address] [place] [address] EP Grinder Gear CARDIOVASCULAR DISEASE 09/24/16 documented as of this encounter
--- OUTSIDE RECORDS SUMMARY | 2024-07-11 12:20 | XMS_ITS | Encounter Summary ---
Author Organization [facility] Address [facility]6 [facility]. [place], [place] [address] [place] [address] Care Team Providers Care Successfactors Consultant Name Role Phone Baldomero Dominguez MD Primary Care Provider [phone] Cesar Gonzalez MD Unavailable Encounter Details Date Type Department Care Team (Late st Contact Info) Description 11/18/2011 [facility] AT [address] [place] [address] , Jayce Pinon MD Social History Tobacco [...] on filedocumented in this encounter Care Teams Successfactors Consultant Relationship Specialty Start Date End Date Baldomero Dominguez MD [address] [facility] 3 [place] [address] PCP - General FAMILY PRACTICE 01/24/16 Cesar Gonzalez MD [address] [place] [address] EP Manager Flight Operations CARDIOVASCULAR DISEASE 01/24/16 documented as of this encounter
--- OUTSIDE RECORDS SUMMARY | 2024-07-11 12:20 | XMS_ITS | Encounter Summary ---
Author Organization [facility] Address [address] [place] [address]. [place], [place] [address] [place] [address] Care Team Providers Care Computer System Specialist Name Role Phone Baldomero Dominguez MD Primary Care Provider [phone] Cesar Gonzalez MD Unavailable Tram Dia MD Unavailable Reason for Visit * Reason Onset Date Comments Palpitations 10/14/2016 Encounter Details Date Type Department Care Team (Late st Contact Info) Description 10/14/2016 [email or web address] AT [address] [address] Ninoska [place]oades, [place] [address] Palpitations Social History Tobacco Use Types Packs/Day [...] on filedocumented in this encounter Care Teams Computer System Specialist Relationship Specialty Start Date End Date Baldomero Dominguez MD [address] [place] [address] PCP - General FAMILY PRACTICE 01/24/16 Cesar Gonzalez MD [address] [place] [address] EP Physician Advisor CARDIOVASCULAR DISEASE 01/24/16 Tram Dia MD [facility]. [facility] [address] [place] [address] EP Physician Advisor CARDIOVASCULAR DISEASE 09/24/16 documented as of this encounter
--- OUTSIDE RECORDS SUMMARY | 2024-07-11 12:20 | XMS_ITS | Encounter Summary ---
Author Organization [facility] Address [address] [place] [address]. [place], [place] [address] [place] [address] Care Team Providers Care Airplane Pilot Crop Dusting Name Role Phone Baldomero Dominguez MD Primary Care Provider [phone] Cesar Gonzalez MD Unavailable Reason for Visit * Reason Comments Follow Up CHECK UP Encounter Details Date Type Department Care Team (Latest Contact Info) Description 02/06/2016 4:15 PM CDT Office Visit [facility] AT [address] [address] Cesar Gonzalez MD [address] [place] [address] Follow Up (CHECK UP) Social History [...] Start Date Job End Date Works at [employer] Not on file Not on file [...] education: N/A Occupational History ??? Works at [employer] Social History Main Topics ??? Smoking [...] supraventricular tachycardia) ([facility]/H[facility]/HCC)- Primary Paroxysmal supraventricular tachycardia documented in this encounter Care Teams Airplane Pilot Crop Dusting Relationship Specialty Start Date End Date Baldomero Dominguez MD [address] [place] [address] PCP - General FAMILY PRACTICE 01/24/16 Cesar Gonzalez MD [address] [place] [address] EP Model Maker Scale CARDIOVASCULAR DISEASE 01/24/16 documented as of this encounter
--- OUTSIDE RECORDS SUMMARY | 2024-07-11 12:20 | XMS_ITS | Encounter Summary ---
Author Organization [facility] Address [facility] [place] [address] [place] [address] Care Team Providers Care Nurse'S Aides Teacher Name Role Phone Baldomero Dominguez MD Primary Care Provider [phone] Cesar Gonzalez MD Unavailable Tram Dia MD Unavailable Encounter Details Date Type Department Care Team (Late st Contact Info) Description 08/31/2012 Abstract [place] [address] Cesar Gonzalez MD [address] [place] [address] Social History Tobacco Use Types [...] on filedocumented in this encounter Care Teams Nurse'S Aides Teacher Relationship Specialty Start Date End Date Baldomero Dominguez MD [address] [address] PCP - General FAMILY PRACTICE 01/24/16 Cesar Gonzalez MD [address] [place] [address] EP Front Office Representative CARDIOVASCULAR DISEASE 01/24/16 Tram Dia MD [address] [address] EP Front Office Representative CARDIOVASCULAR DISEASE 09/24/16 documented as of this encounter
--- OUTSIDE RECORDS SUMMARY | 2024-07-11 12:20 | XMS_ITS | Encounter Summary ---
Author Organization [facility] Address [address] [place] [address]. [place], [place] [address] [place] [address] Care Team Providers Care Horse Exerciser Name Role Phone Baldomero Dominguez MD Primary Care Provider [phone] Cesar Gonzalez MD Unavailable Reason for Visit * Reason Onset Date Comments Medication Information 01/29/2016 Encounter Details Date Type Department Care Team (Late st Contact Info) Description 01/29/2016 Telephone [place] [facility] AT [address] [address] Cesar Gonzalez MD [address] [place] [address] Medication Information Social History Tobacco Use [...] on filedocumented in this encounter Care Teams Horse Exerciser Relationship Specialty Start Date End Date Baldomero Dominguez MD [address] [place] [address] PCP - General FAMILY PRACTICE 01/24/16 Cesar Gonzalez MD [address] [place] [address] EP Trench Shovel Operator CARDIOVASCULAR DISEASE 01/24/16 documented as of this encounter
--- OUTSIDE RECORDS SUMMARY | 2024-07-11 12:20 | XMS_ITS | Encounter Summary ---
Author Organization [facility] - [facility] Address [facility]6 [facility]. [place], [place] [address] [place] [address] Care Team Providers Care Chain Sales Consultant Name Role Phone Baldomero Dominguez MD Primary Care Provider [phone] Cesar Gonzalez MD Unavailable Encounter Details Date Type Department Care Team (Late st Contact Info) Description 02/01/2014 [facility] AT [address] [place] [address] , Jayce Pinon MD Social History Tobacco [...] on filedocumented in this encounter Care Teams Chain Sales Consultant Relationship Specialty Start Date End Date Baldomero Dominguez MD [address] [facility] 3 [place] [address] PCP - General FAMILY PRACTICE 01/24/16 Cesar Gonzalez MD [address] [place] [address] EP Sonar Subsystem Equipment Operator CARDIOVASCULAR DISEASE 01/24/16 documented as of this encounter
--- OUTSIDE RECORDS SUMMARY | 2024-07-11 12:20 | XMS_ITS | Encounter Summary ---
Author Organization [facility] Address [facility]6 [facility]. [place], [place] [address] [place] [address] Care Team Providers Care Slat Basket Maker Helper Machine Name Role Phone Baldomero Dominguez MD Primary Care Provider [phone] Cesar Gonzalez MD Unavailable Encounter Details Date Type Department Care Team (Late st Contact Info) Description 06/03/2011 [facility] AT [address] [place] [address] , Jayce Pinon MD Social History Tobacco [...] on filedocumented in this encounter Care Teams Slat Basket Maker Helper Machine Relationship Specialty Start Date End Date Baldomero Dominguez MD [address] [facility] 3 [place] [address] PCP - General FAMILY PRACTICE 01/24/16 Cesar Gonzalez MD [address] [place] [address] EP Feed Mixer CARDIOVASCULAR DISEASE 01/24/16 documented as of this encounter
--- OUTSIDE RECORDS SUMMARY | 2024-07-11 12:20 | XMS_ITS | Encounter Summary ---
Author Organization [facility] Address [address] [place] [address]. [place], [place] [address] [place] [address] Care Team Providers Care Skilled Nursing Professional Name Role Phone Baldomero Dominguez MD Primary Care Provider [phone] Cesar Gonzalez MD Unavailable Reason for Visit * Reason Comments Palpitations Encounter Details Date Type Department Care Team (Late st Contact Info) Description 09/17/2016 3:00 PM FLIGHT LINE SERVICE ATTENDANT Office Visit [place] [facility] AT [address] [address] Cesar Gonzalez MD [address] [place] [address] Palpitations Social History Tobacco Use Types [...] Start Date Job End Date Works at [employer] Not on file Not on file N ot on file documented as of this encounter Last Filed Vital Signs Vital Sign Reading Time Taken Comments Blood Pressure 130/84 09/17/2016 2:57 PM FLIGHT LINE SERVICE ATTENDANT Pulse 84 09/17/2016 2:57 PM FLIGHT LINE SERVICE ATTENDANT Temperature - - Respiratory Rate - - Oxygen Saturation 97% 09/17/2016 2:57 PM FLIGHT LINE SERVICE ATTENDANT Inhaled Oxygen Concentration - - Weight 124.7 kg (275 lb) 09/17/2016 2:57 PM FLIGHT LINE SERVICE ATTENDANT Height 167.6 cm (5' 6 ) 09/17/2016 2:57 PM FLIGHT LINE SERVICE ATTENDANT Body Mass Index 44.39 09/17/2016 2:57 PM FLIGHT LINE SERVICE ATTENDANT documented in this encounter Patient Instructions * Patient Instructions* Reyna Lowery - 09/17/2016 3:00 PM FLIGHT LINE SERVICE ATTENDANT Images from the original note were not [...] healthcare provider's instructions for treatment. Developed by [employer]. Adult Advisor 2016.3 published by [employer]. Last modified: 2015-10-16 Last reviewed: 2014-12-10 This content is reviewed periodically and is subject to change as new health information becomes available. The information is intended to inform and educate and is not a replacement for medical evaluation, advice, diagnosis or treatment by a healthcare professional. References Adult Advisor 2016.3 Index Copyright ?? 2016 [employer], a division of [employer]. All rights reserved. HT LINE SERVICE ATTENDANT documented in this encounter Progress Notes * [...] will continue her current dose of Diltiazem. HT LINE SERVICE ATTENDANT * Cesar Gonzalez MD - 09/17/2016 3:00 [...] education: N/A Occupational History ??? Works at [employer] Social History Main Topics ??? Smoking [...] Diagnoses/Impression: 1. Palpitations ELECTROCARDIOGRAM (NON MIDMARK ACQUIRED) HT LINE SERVICE ATTENDANT documented in this encounter Plan of Treatment Not on file documented as of this encounter Procedures Procedure Name Priority Date/Time Associated Diagnosis Comments ELECTROCARDIOGRAM (NON MIDMA RK ACQUIRED) Routine 09/21/2016 Palpitations documented in this encounter Results * ELECTROCARDIOGRAM (09/21/2016) Cesar Gonzalez MD PROCEDURES-ORDERABLE NO CHARGE F inal Result documented in this encounter Visit Diagnoses Diagnosis SVT (supraventricular tachycardia) (CMS/HCC [facility])- Primary Other specified cardiac dysrhythmias Palpitations documented in this encounter Care Teams Skilled Nursing Professional Relationship Specialty Start Date End Date Baldomero Dominguez MD [address] [place] [address] PCP - General FAMILY PRACTICE 01/24/16 Cesar Gonzalez MD [address] [place] [address] EP Assistant Media Planner CARDIOVASCULAR DISEASE 01/24/16 documented as of this encounter
--- OUTSIDE RECORDS SUMMARY | 2024-07-11 12:20 | XMS_ITS | Encounter Summary ---
Author Organization [facility] Address [address] [place] [address]. [place], [place] [address] [place] [address] Care Team Providers Care Automotive Teacher Name Role Phone Unavailable Primary Care Provider Unavailabl e Encounter Details Date Type Department Care Team (Late st Contact Info) Description 07/10/2015 Abstract [facility] AT [address] [address] , Jayce Pinon MD Social History Tobacco [...]
--- OUTSIDE RECORDS SUMMARY | 2024-07-11 12:20 | XMS_ITS | Encounter Summary ---
Author Organization [facility] Address [facility]. [place], [place] [address] [place] [address] Care Team Providers Care Financial Administrative Assistant Name Role Phone Baldomero Dominguez MD Primary Care Provider [phone] Cesar Gonzalez MD Unavailable Encounter Details Date Type Department Care Team (Late st Contact Info) Description 08/16/2012 [facility] AT [place] [place] [address] , Jayce Pinon MD Social History Tobacco [...] on filedocumented in this encounter Care Teams Financial Administrative Assistant Relationship Specialty Start Date End Date Baldomero Dominguez MD [address] [facility] 3 [place] [address] PCP - General FAMILY PRACTICE 01/24/16 Cesar Gonzalez MD [address] [place] [address] EP Executive Advisor CARDIOVASCULAR DISEASE 01/24/16 documented as of this encounter
--- OUTSIDE RECORDS SUMMARY | 2024-07-11 12:20 | XMS_ITS | Encounter Summary ---
Author Organization [facility] Address [address] [place] [address]. [place], [place] [address] [place] [address] Care Team Providers Care Software Clerk Name Role Phone Baldomero Dominguez MD Primary Care Provider [phone] Cesar Gonzalez MD Unavailable Reason for Visit * Reason Onset Date Comments Prior Authorization 02/13/2016 Prior Author ization for Cartia XT 240mg has been APPROVED from 02-12-16 through 02-11-2017 Encounter Details Date Type Department Care Team (Late st Contact Info) Description 02/13/2016 [facility]phone [facility] AT [address] [address] Cesar Gonzalez MD [address] [place] [address] Prior Authorization (Prior Authorization for Cartia [...] Start Date Job End Date Works at [employer] Not on file Not on [...] on filedocumented in this encounter Care Teams Software Clerk Relationship Specialty Start Date End Date Baldomero Dominguez MD [address] [place] [address] PCP - General FAMILY PRACTICE 01/24/16 Cesar Gonzalez MD [address] [place] [address] EP Hand Assembler For Puller Over CARDIOVASCULAR DISEASE 01/24/16 documented as of this encounter
--- OUTSIDE RECORDS SUMMARY | 2024-07-11 12:20 | XMS_ITS | Encounter Summary ---
Author Organization [facility] Address [facility]. [place], [place] [address] [place] [address] Care Team Providers Care Cardiothoracic Physiotherapist Name Role Phone Baldomero Dominguez MD Primary Care Provider [phone] Cesar Gonzalez MD Unavailable Encounter Details Date Type Department Care Team (Late st Contact Info) Description 11/18/2011 [facility] AT [address] [place] [address] , Jayce Pinon MD Social History Tobacco [...] on filedocumented in this encounter Care Teams Cardiothoracic Physiotherapist Relationship Specialty Start Date End Date Baldomero Dominguez MD [address] [facility] 3 [place] [address] PCP - General FAMILY PRACTICE 01/24/16 Cesar Gonzalez MD [address] [place] [address] EP Technical Clerk CARDIOVASCULAR DISEASE 01/24/16 documented as of this encounter
--- OUTSIDE RECORDS SUMMARY | 2024-07-11 12:20 | XMS_ITS | Encounter Summary ---
Author Organization [facility] Address [address] [place] [address]. [place], [place] [address] [place] [address] Care Team Providers Care Assembler Leather Goods Name Role Phone Unavailable Primary Care Provider Unavailabl e Reason for Visit * Reason Onset Date Comments Question 01/20/2016 Encounter Details Date Type Department Care Team (Late st Contact Info) Description 01/20/2016 Telephone [facility] AT [address] [address] Cesar Gonzalez MD [address] [place] [id number] Question Social History Tobacco Use Types Packs/Day Years Used Date Smoking Tobacco: Never Assessed Comments Unknown Sex and Gender Information Value Date Recorded Sex Assigned at Not on file Legal Sex Female 11:35 PM CDT Gender Identity Not on file Sexual Orientation Not on file documented as of this encounter Progress Notes * Belle Gonzalez RN - 01/20/2016 3:58 PM CDT [...] and had no further questions. * Deloris Gutierrez PA-C - 01/20/2016 3:32 PM CDT Stopping the medication will not affect her colonoscopy/procedure. She can still have the procedure. If she does not want to take the medication she needs to consider the ablation that has been discussed multiple times with her. If she has reoccurrence of symptoms she should resume the medication. Michael Puentes * Belle Gonzalez RN - 01/20/2016 3:14 [...]
--- OUTSIDE RECORDS SUMMARY | 2024-07-11 12:20 | XMS_ITS | Encounter Summary ---
Author Organization [facility] Address [facility]. [place], [place] [address] [place] [address] Care Team Providers Care Bed Bug Exterminator Name Role Phone Baldomero Dominguez MD Primary Care Provider [phone] Cesar Gonzalez MD Unavailable Encounter Details Date Type Department Care Team (Late st Contact Info) Description 08/16/2012 [facility] AT [address] [place] [address] , Jayce Pinon MD Social History Tobacco [...] on filedocumented in this encounter Care Teams Bed Bug Exterminator Relationship Specialty Start Date End Date Baldomero Dominguez MD [address] [facility] 3 [place] [address] PCP - General FAMILY PRACTICE 01/24/16 Cesar Gonzalez MD [address] [place] [address] EP Ceiling Cleaner CARDIOVASCULAR DISEASE 01/24/16 documented as of this encounter
--- OUTSIDE RECORDS SUMMARY | 2024-07-11 12:20 | XMS_ITS | Encounter Summary ---
Author Organization [facility] Address [address] [place] [address]. [place], [place] [address] [place] [address] Care Team Providers Care Reliability Engineer Name Role Phone Baldomero Dominguez MD Primary Care Provider [phone] Lisa, Cesar LIRA Unavailable Tram Dia MD Unavailable Reason for Visit * Reason Comments Supraventricular Tachycardia per Lisa Encounter Details Date Type Department Care Team (Latest Contact Info) Description 10/16/2016 2:30 PM CDT Office Visit [facility] AT [address] [address] Tram Dia MD [address] [address] Supraventricular Tachycardia (per Lisa) Social [...] the original note were not included. Index Icelandic Related??topics Paroxysmal Supraventricular Tachycardia (Fast Heartbeat) REBOLLEDO [...] healthcare provider's instructions for treatment. Developed by [employer]. Adult Advisor 2017.1 published by [employer]. Last modified: 2016-03-20 Last reviewed: 2014-12-10 This content is reviewed periodically and is subject to change as new health information becomes available. The information is intended to inform and educate and is not a replacement for medical evaluation, advice, diagnosis or treatment by a healthcare professional. References Adult Advisor 2017.1 Index Copyright ?? 2017 [employer], a division of [employer]. All rights reserved. documented in this encounter [...] encounter Visit Diagnoses Diagnosis SVT (supraventricular tachycardia) ([facility]/HCC [facility]/HCC)- Primary Other specified cardiac dysrhythmias documented in this encounter Care Teams Reliability Engineer Relationship Specialty Start Date End Date Baldomero Dominguez MD [address] [place] [address] PCP - General FAMILY PRACTICE 01/24/16 Cesar Gonzalez MD [address] [place] [address] EP Combined Rail Operator CARDIOVASCULAR DISEASE 01/24/16 Tram Dia MD [facility]. [address] [address] EP Combined Rail Operator CARDIOVASCULAR DISEASE 09/24/16 documented as of this encounter
--- OUTSIDE RECORDS SUMMARY | 2024-07-11 12:20 | XMS_ITS | Encounter Summary ---
Author Organization [facility] Address [address] [place] [address]. [place], [place] [address] [place] [address] Care Team Providers Care Licensed Mental Health Counselor Name Role Phone Baldomero Dominguez MD Primary Care Provider Tram Dia MD Unavailable Reason for Visit * Reason Onset Date Comments Information 11/26/2020 patient record r equest Encounter Details Date Type Department Care Team (Late st Contact Info) Description 11/26/2020 Telephone [facility] [address] [address] Kyler Otoole MD [facility]. [address] [address] Information (patient record request) Social [...] I looked up address, phone, and fax [address] [place] [address] I returned call to patient and left her a message to contact me. Her last stress echo was 02/28/14. documented in this encounter Plan of Treatment Not on file documented as of this encounter Visit Diagnoses Not on filedocumented in this encounter Care Teams Licensed Mental Health Counselor Relationship Specialty Start Date End Date Baldmoero Dominguez MD [address] [place] [address] 3 [place] [address] PCP - General FAMILY PRACTICE 01/24/16 Tram Dia MD [address] [address] EP Felt Machine Mechanic CARDIOVASCULAR DISEASE 09/24/16 documented as of this encounter
--- OUTSIDE RECORDS SUMMARY | 2024-07-11 12:20 | XMS_ITS | Encounter Summary ---
Author Organization [facility] - [facility] Address [address] [place] [address]. [place], [place] [address] [place] [address] Care Team Providers Care Portfolio Strategist Name Role Phone Baldomero Dominguez MD Primary Care Provider [phone] Cesar Gonzalez MD Unavailable Tram Dia MD Unavailable Encounter Details Date Type Department Care Team (Late st Contact Info) Description 05/26/2007 Abstract [facility] [address] [place] [address] Hernán Landaverde MD [address] [address] Social History Tobacco Use Types [...] on filedocumented in this encounter Care Teams Portfolio Strategist Relationship Specialty Start Date End Date Baldomero Dominguez MD [address] [facility] 3 [place], [place] [id number] PCP - General FAMILY PRACTICE 01/24/16 Cesar Gonzalez MD [address] [place] [address] EP Head Of Physics CARDIOVASCULAR DISEASE 01/24/16 Tram Dia MD [facility]. [address] [address] EP Head Of Physics CARDIOVASCULAR DISEASE 09/24/16 documented as of this encounter
--- OUTSIDE RECORDS SUMMARY | 2024-07-11 12:22 | XMS_ITS | Encounter Summary ---
Author Organization [employer] Care Team Providers Care District Captain Name Role Phone Baldomero Dominguez MD Primary Care Provider Encounter Details Date Type Department Care Team [...] Coronavirus/COVID-19? No / Unsure 07/22/2022 6:18 AM MOTOR POOL DRIVER documented as of this encounter Plan of Treatment Not on file documented as of this encounter Visit Diagnoses Not on filedocumented in this encounter Care Teams District Captain Relationship Specialty Start Date End Date Baldomero Dominguez MD [address] [address] PCP - General Family Medicine 03/20/20 documented as of this encounter
--- OUTSIDE RECORDS SUMMARY | 2024-07-11 12:22 | XMS_ITS | Clinical Summary ---
Author Organization [facility] Address [address] [place] [address] Phone Care Team Providers Care Felt Dyeing Machine Tender Name Role Phone Baldomero Dominguez MD Primary Care Provider [phone] Allergies No known active allergies Medications Ibuprofen [...] Comments Blood Pressure 120/69 07/22/2022 9:30 AM TELEPHONE SURVEYOR Pulse 58 07/22/2022 9:30 AM TELEPHONE SURVEYOR Temperature 36.6 ??C (97.8 ??F) 07/22/2022 9:30 AM CS T Respiratory Rate 16 07/22/2022 9:30 AM TELEPHONE SURVEYOR Oxygen Saturation 95% 07/22/2022 9:30 AM TELEPHONE SURVEYOR Inhaled Oxygen Concentration - - Weight 94 kg (207 lb 4 oz) 07/22/2022 6:51 AM CS T Height 167.6 cm (5' 6 ) 07/22/2022 6:51 AM TELEPHONE SURVEYOR Body Mass Index 33.45 07/22/2022 6:51 AM TELEPHONE SURVEYOR Plan of Treatment Health Maintenance Due Date [...] to complete this topic Insurance Care Teams Felt Dyeing Machine Tender Relationship Specialty Start Date End Date Baldomero Dominguez MD [address] [address] PCP - General Family Medicine 03/20/20
--- OUTSIDE RECORDS SUMMARY | 2024-07-11 12:22 | XMS_ITS | Encounter Summary ---
Author Organization [facility] Address [address] [facility] [place] [address] Phone Care Team Providers Care Aircraft Accessories Mechanic Name Role Phone Baldomero Dominguez MD Primary Care Provider [phone] Reason for Visit * Auth/Cert (Routine) Specialty Diagnoses / Procedures Referred By Vianca montiel Referred To Contact Diagnoses LEFT KNEE PAIN Procedures ARTHROSCOPY KNEE El Rodríguez MD [address] [place] [address] Phone: tel: fax: Referral ID Status Reason Start Date Expiration Date Visits Re quested Visits Authorized [id number] 1 1 Encounter Details Date Type Department Care Team (Late st Contact Info) Description 07/22/2022 7:40 AM SENIOR CLINICAL RESEARCH SCIENTIST - 07/22/2022 9:10 AM SENIOR CLINICAL RESEARCH SCIENTIST Surgery [facility] [address] [place] [address] El Rodríguez MD [address] [place] [address] LEFT KNEE ARTHROSCOPY, CHONDROPLASTY, AND ABRASION ARTHROPLASTY OF THE PATELLA Surgery Details Date/Time Status Location OR Service Patient Class Case Class Case Type Trauma Case? 07/22/2022 7:40 AM Posted [facility] MAIN OR [address] [place] [address] Ambulatory Surgery Panel 1 Procedure LRB Anes [...] Coronavirus/COVID-19? No / Unsure 07/22/2022 6:18 AM SENIOR CLINICAL RESEARCH SCIENTIST documented as of this encounter Last Filed Vital Signs Vital Sign Reading Time Taken Comments Blood Pressure 129/75 07/22/2022 9:04 AM SENIOR CLINICAL RESEARCH SCIENTIST Pulse 71 07/22/2022 9:04 AM SENIOR CLINICAL RESEARCH SCIENTIST Temperature 35.9 ??C (96.6 ??F) 07/22/2022 9:04 AM CS T Respiratory Rate 9 07/22/2022 9:04 AM SENIOR CLINICAL RESEARCH SCIENTIST Oxygen Saturation 98% 07/22/2022 9:04 AM SENIOR CLINICAL RESEARCH SCIENTIST Inhaled Oxygen Concentration - - Weight 94 kg (207 lb 4 oz) 07/22/2022 6:51 AM CS T Height 167.6 cm (5' 6 ) 07/22/2022 6:51 AM SENIOR CLINICAL RESEARCH SCIENTIST Body Mass Index 33.45 07/22/2022 6:51 AM SENIOR CLINICAL RESEARCH SCIENTIST documented in this encounter Discharge Instructions * Discharge Instructions* Gertrudis Harrington RN - 07/22/2022 9:08 AM SENIOR CLINICAL RESEARCH SCIENTIST GENERAL GUIDELINES FOR MINIMIZING NAUSEA: Do not [...] as the smells make make you nauseated. OR CLINICAL RESEARCH SCIENTIST * Attachments The following attachments cannot be sent through Care Everywhere. * Knee Arthroscopy Care After (Tunisian) documented in this encounter Medications at Time [...] proceed. El Rodríguez MD 07/22/2022 7:24 AM SENIOR CLINICAL RESEARCH SCIENTIST OR CLINICAL RESEARCH SCIENTIST Source Note - El oRdríguez MD - 07/21/2022 9:16 AM SENIOR CLINICAL RESEARCH SCIENTIST documented in this encounter Nursing Notes * [...] in their respective areas of documen tation. OR CLINICAL RESEARCH SCIENTIST * Ibeth Sood RN - 07/22/2022 8:25 AM CST Specimen Transported to OR SPECIMEN ROOM by A KLAUDIA RN OR CLINICAL RESEARCH SCIENTIST documented in this encounter OR Notes * [...] Surgeon: El Rodríguez MD, 07/22/2022, 7:38 AM SENIOR CLINICAL RESEARCH SCIENTIST OR CLINICAL RESEARCH SCIENTIST OR CLINICAL RESEARCH SCIENTIST documented in this encounter Miscellaneous Notes * [...] no previous admission in last 30 days OR CLINICAL RESEARCH SCIENTIST * Plan of Care - Priti Rios RN - 07/22/2022 8:41 AM CST Patient will be discharged from PACU when meeting criteria. OR CLINICAL RESEARCH SCIENTIST * Plan of Care - Gertrudis Harrington [...] no previous admission in last 30 days OR CLINICAL RESEARCH SCIENTIST * Interdisciplinary - Lina Patricia RN - 07/14/2022 12:29 PM CST Denies having COVID in past 90 days. No current COVID symptoms No COVID test needed OR CLINICAL RESEARCH SCIENTIST * Interdisciplinary - Lina Patricia RN - 07/14/2022 12:09 PM CST [facility] ADULT TEACHING Patient Name: Rowena Quesada : 1965 [facility]#: [id number] Person Educated Patient Ready to Learn Yes [...] be allowed to accompany you to the [facility]. No children under theage of 16 will be allowed in the [facility] unless they are the patient. If the [...] Patient Response: Verbalizes Understanding Patient assessed for records assistant during the preop interview and appropriate interventions taken if applicable. OR CLINICAL RESEARCH SCIENTIST documented in this encounter Plan of Treatment Not on file documented as of this encounter Procedures Procedure Name Priority Date/Time Associated Diagnosis Comments PATHOLOGY SURGICAL Routine 07/22/2022 8: 15 AM SENIOR CLINICAL RESEARCH SCIENTIST SYNOVECTOMY 07/22/2022 7:08 AM SENIOR CLINICAL RESEARCH SCIENTIST LEFT KNEE PAIN, TORN MEDIAL MENISCUS OF THE LEFT KNEE,SYNOVITISM OF THE LEFT KNEE, AND DEGENERATIVE ARTHRITIS OF THE LEFT KNEE?? Special Needs Hx: SVT 5' 6 206# No COVID test needed ARTHROSCOPY KNEE MENISCECTOMY 07/22/2022 7:08 AM SENIOR CLINICAL RESEARCH SCIENTIST LEFT KNEE PAIN, TORN MEDIAL MENISCUS OF THE LEFT KNEE,SYNOVITISM OF THE LEFT KNEE, AND DEGENERATIVE ARTHRITIS OF THE LEFT KNEE?? Special Needs Hx: SVT 5' 6 206# No COVID test needed ARTHROSCOPY KNEE 07/22/2022 7:08 AM SENIOR CLINICAL RESEARCH SCIENTIST LEFT KNEE PAIN, TORN MEDIAL MENISCUS OF THE LEFT KNEE,SYNOVITISM OF THE LEFT KNEE, AND DEGENERATIVE ARTHRITIS OF THE LEFT KNEE?? Special Needs Hx: SVT 5' 6 206# No COVID test needed UR TEST QUAL STAT 07/22/2022 6:51 AM SENIOR CLINICAL RESEARCH SCIENTIST documented in this encounter Results * Pathology Surgical (07/22/2022 8:15 AM SENIOR CLINICAL RESEARCH SCIENTIST) Case Report Surgical Pathology Report ? Case: [id number] ? Authorizing Provider: ??El Rodríguez MD ?Collected: ? 07/22/2022 08:15 AM ? Ordering Location: ? [facility] ? Received: ?07/22/2022 12:56 PM ? [facility] ? Main OR ? Pathologist: ? Yobani Castellanos MD ? Specimen: ?Knee, ARTHROSCOPIC SHAVINGS, LEFT KNEE ? 07/23/2022 8:18 AM [facility] FINAL DIAGNOSIS TISSUE, LEFT KNEE, ARTHROSCOPIC SHAVINGS: - FRAGMENTS OF ARTICULAR CARTILAGE, BONE, SYNOVIUM, AND FIBROVASCULAR CONNECTIVE TISSUE. - NEGATIVE FOR SIGNIFICANT ACUTE INFLAMMATION OR CRYSTALLINE MATERIAL. 07/23/2022 8:18 AM [facility] Pre-Operative Diagnosis LEFT KNEE PAIN 07/23/2022 8:18 AM [facility] Gross Description A. ARTHROSCOPIC SHAVINGS, LEFT KNEE The specimen presents in a single formalin container for gross and microscopic examination, labeled with the patient's name, Rowena Quesada, and designated arthroscopic shavings left knee. The specimen consists of a rhina tissue filtration bag together with less than 1 gram of pale yellow-white tissue fragments. Boom Supervisor sample submitted in cassette A1. KS/sb 07/23/2022 8:18 AM [facility] Microscopic Description Microscopic examination was performed which supports the final diagnosis. All control tissues stained appropriately. 07/23/2022 8:18 AM [facility] Tissue KNEE JOINT SYNOVIAL FLUID / Unknown 07/22/2022 8:15 AM SENIOR CLINICAL RESEARCH SCIENTIST 07/22/2022 12:56 PM SENIOR CLINICAL RESEARCH SCIENTIST us El Rodríguez MD PATHOLOGY/CYTOLOGY ORDERABLES Fi nal Result [facility] [address] [place] [address] * Ur Test Qual (07/22/2022 6:51 AM SENIOR CLINICAL RESEARCH SCIENTIST) PREG TEST,MONOCLONA L Negative 07/22/2022 7:09 AM SENIOR CLINICAL RESEARCH SCIENTIST [facility] Urine Non-Phlebotomy Collection / Unknown 07/22/2022 6:51 AM SENIOR CLINICAL RESEARCH SCIENTIST 07/22/2022 6:56 AM SENIOR CLINICAL RESEARCH SCIENTIST us El Rodríguez MD URINE ORDERABLES Final Result [facility] [address] [place] [address] documented in this encounter Visit Diagnoses Not [...] hours., PRE-OP (SURGERY) Given 07/22/2022 6:59 AM SENIOR CLINICAL RESEARCH SCIENTIST 975 mg ACETAMINOPHEN 325 MG PO TABS 1 dose, Starting on Wed07/22/22 at 0636, Until Wed07/22/22 at 0659, Created by cabinet override celecoxib (CeleBREX) capsule 200 mg 200 mg, Oral, ONCE, 1 dose, On Wed07/22/22 at 0700, PRE-OP (SURGERY) Given 07/22/2022 6:59 AM SENIOR CLINICAL RESEARCH SCIENTIST 200 mg CELECOXIB 200 MG PO CAPS 1 dose, Starting on Wed07/22/22 at 0636, Until Wed07/22/22 at 0659, Created by cabinet override dexamethasone (DECADRON) injection 8 mg 8 mg, Intravenous, ONCE, 1 dose, On Wed07/22/22 at 0700, PRE-OP (SURGERY) Given 07/22/2022 7:03 AM SENIOR CLINICAL RESEARCH SCIENTIST 8 mg DEXAMETHASONE SODIUM PHOSPHATE 4 MG/ML [...] 2) increasing dosage, or 3) changing to MANAGER OF BUSINESS. Given 07/22/2022 8:52 AM SENIOR CLINICAL RESEARCH SCIENTIST 1 Tablet lactated ringers infusion at 20 mL/hr, Intravenous, CONTINUOUS, Starting on Wed07/22/22 at 0700, Until Wed07/22/22 at 1214, PRE-OP (SURGERY) New Bag 07/22/2022 7:03 AM SENIOR CLINICAL RESEARCH SCIENTIST 20 mL/hr MIDAZOLAM HCL (PF) 2 MG/2ML IJ SOLN 1 dose, Starting on Wed07/22/22 at 0650, Until Wed07/22/22 at 1214, Created by cabinet override ondansetron (ZOFRAN) injection 4 mg 4 mg, Intravenous, ONCE, 1 dose, On Wed07/22/22 at 0700, PRE-OP (SURGERY) Given 07/22/2022 7:03 AM SENIOR CLINICAL RESEARCH SCIENTIST 4 mg ONDANSETRON HCL 4 MG/2ML IJ SOLN 1 dose, Starting on Wed07/22/22 at 0637, Until Wed07/22/22 at 0703, Created by cabinet override ropivacaine (NAROPIN) injection ONCE (in OR), Starting on Wed07/22/22 at 0825, Until Wed07/22/22 at 0833, INTRA-OP Given 07/22/2022 8:25 AM SENIOR CLINICAL RESEARCH SCIENTIST 20 mL Operative Site documented in this encounter Active and Recently Administered Medications Times are shown in SENIOR CLINICAL RESEARCH SCIENTIST. Scheduled Medication Order 07/20/2022 07/21/2022 07/22/2022 acetaminophen [...] 2) increasing dosage, or 3) changing to MANAGER OF BUSINESS. 0852 (Given - Provid er: Priti Rios [...] override documented in this encounter Care Teams Aircraft Accessories Mechanic Relationship Specialty Start Date End Date Baldomero Dominguez MD [address] [place] [address] PCP - General Family Medicine 03/20/20 documented as of this encounter
--- OUTSIDE RECORDS SUMMARY | 2024-07-11 12:22 | XMS_ITS | Encounter Summary ---
Author Organization [facility] Address [address] [facility] [place] [address] Phone Care Team Providers Care Accounting Software Specialist Name Role Phone Baldomero oDminguez MD Primary Care Provider Reason for Visit * Auth/Cert (Routine) Specialty Diagnoses / Procedures Referred By Vianca montiel Referred To Contact Diagnoses LEFT KNEE PAIN Procedures ARTHROSCOPY KNEE El Rodríguez MD [address] [place] [address] Phone: tel: fax: Referral ID Status Reason Start Date Expiration Date Visits Re quested Visits Authorized [id number] 1 1 Encounter Details Date Type Department Care Team (Late st Contact Info) Description 07/22/2022 7:28 AM SENIOR BACK END JAVA DEVELOPER [facility] [address] [place] [address] Cliff Kessler, DO [address] [place] [address] Sergio Novoa, ORTHOPAEDIC GENERAL, DEVELOPMENT SYSTEM EFFICIENCY MANAGER [address] [place] [address] Anesthesia Record Procedure Summary Procedure Name Responsible [...] No / Unsure 07/22/2022 6:18 AM SENIOR BACK END JAVA DEVELOPER documented as of this encounter OR Notes * Anesthesia Postprocedure Evaluation - Cliff Kessler DO - 07/22/2022 8:39 AM CST Patient: Rowena Quesada Procedure Summary Date: 07/22/22 Room / Location: [facility] OR / [facility] Anesthesia Start: 727 Anesthesia Stop: 838 Procedure: [...] patency: positional obstruction Nausea and Vomiting: none OR BACK END JAVA DEVELOPER * Anesthesia Procedure Notes - Cliff Kessler DO - 07/22/2022 7:38 AM CSTAssociated Order(s): LMA LMA Staffing Performed: anesthesiologist Anesthesiologist: Cliff Kessler DO Airway Details Overall Difficulty: Easy Preoxygenated: Yes LMA Type: Disposable LMA Size: 3 Adequate seal established: Yes LMA placement confirmed by: bilateral breath sounds, CO2 detection Atraumatic LMA Placement OR BACK END JAVA DEVELOPER * Anesthesia Preprocedure Evaluation - Cliff Kessler DO - 07/22/2022 6:45 AM CST Anesthesia Evaluation Procedure Information Date/Time: 07/22/22 1025 Procedure: LEFT KNEE ARTHROSCOPY WITH PARTIAL MEDIAL MENISCECTOMY, PARTIAL SYNOVECTOMY AND CHONDROPLASTY (Left: Knee) Location: [facility] OR 02 / [facility] Surgeons: El Rodríguez MD Patient summary reviewed and Nursing notes reviewed No history of anesthetic complications No family history of anesthesia reaction Allergies: No Known Allergies Patient allergies reviewed. Medications: Current Facility-Administered Medications: ??? acetaminophen (TYLENOL) tablet 975 mg, 975 mg, Oral, Once, Sergio Novoa, ORTHOPAEDIC GENERAL, DEVELOPMENT SYSTEM EFFICIENCY MANAGER ??? ACETAMINOPHEN 325 MG PO TABS, , , , ??? ceFAZolin (ANCEF) injection 2 g, 2 g, Intravenous, Once, El Rodríguez MD ??? celecoxib (CeleBREX) capsule 200 mg, 200 mg, Oral, Once, Sergio Novoa, ORTHOPAEDIC GENERAL, DEVELOPMENT SYSTEM EFFICIENCY MANAGER ??? CELECOXIB 200 MG PO CAPS, , , , ??? dexamethasone (DECADRON) injection 8 mg, 8 mg, Intravenous, Once, Sergio Novoa, ORTHOPAEDIC GENERAL, DEVELOPMENT SYSTEM EFFICIENCY MANAGER ??? DEXAMETHASONE SODIUM PHOSPHATE 4 MG/ML IJ SOLN, , , , ??? lactated ringers infusion, , Intravenous, Continuous, El Rodríguez MD ??? ondansetron (ZOFRAN) injection 4 mg, 4 mg, Intravenous, Once, Sergio Novoa, ORTHOPAEDIC GENERAL, DEVELOPMENT SYSTEM EFFICIENCY MANAGER ??? ONDANSETRON HCL 4 MG/2ML IJ SOLN, [...] discussed with Patient. Plan discussed with surgeon. OR BACK END JAVA DEVELOPER documented in this encounter Plan of Treatment Not on file documented as of this encounter Procedures Procedure Name Priority Date/Time Associated Diagnosis Comments LMA Routine 07/22/2022 7:38 AM SENIOR BACK END JAVA DEVELOPER documented in this encounter Results * LMA (07/22/2022 7:38 AM SENIOR BACK END JAVA DEVELOPER) Narrative Cliff Kessler, DO - 07/22/2022 7:38 AM SENIOR BACK END JAVA DEVELOPER Cliff Kessler, DO ? 07/22/2022 ??7:38 AM LMA Staffing Performed: anesthesiologist Anesthesiologist: Cliff Kessler, DO Airway Details Overall Difficulty: ??Easy Preoxygenated: ??Yes LMA Type: ??Disposable LMA Size: ??3 Adequate seal established: ??Yes LMA placement confirmed by: ??bilateral breath sounds, ??CO2 detection Atraumatic LMA Placement Result [facility] Cliff Kessler DO ANESTHESIA ORDERABL ES Final [...] PharmacoprophylaxisIndications:Lida operative Pharmacoprophylaxis Given 07/22/2022 7:35 AM SENIOR BACK END JAVA DEVELOPER 2 g lidocaine 1 % injection Intravenous, ONCE (in OR), Starting on Wed07/22/22 at 0733, Until Wed07/22/22 at 0838 Given 07/22/2022 7:33 AM SENIOR BACK END JAVA DEVELOPER 100 mg midazolam (VERSED) injection Intravenous, ONCE (in OR), Starting on Wed07/22/22 at 0728, Until Wed07/22/22 at 0838 Given 07/22/2022 7:28 AM SENIOR BACK END JAVA DEVELOPER 2 mg ondansetron (ZOFRAN) injection Intravenous, ONCE (in OR), Starting on Wed07/22/22 at 0740, Until Wed07/22/22 at 0838 Given 07/22/2022 7:40 AM SENIOR BACK END JAVA DEVELOPER 4 mg propofol (DIPRIVAN) injection Intravenous, ONCE (in OR), Starting on Wed07/22/22 at 0733, Until Wed07/22/22 at 0838 Given 07/22/2022 7:33 AM SENIOR BACK END JAVA DEVELOPER 200 mg documented in this encounter Care Teams Accounting Software Specialist Relationship Specialty Start Date End Date Baldomero Dominguez MD [address] [place] [address] PCP - General Family Medicine 03/20/20 documented as of this encounter
--- OUTSIDE RECORDS SUMMARY | 2024-07-11 12:22 | XMS_ITS | Encounter Summary ---
Author Organization [facility] Address [address] [facility] [place] [address] Phone Care Team Providers Care Termite Control Representative Name Role Phone Baldomero Dominguez MD Primary Care Provider [phone] Reason for Visit * Auth/Cert (Routine) Specialty Diagnoses / Procedures Referred By Vianca montiel Referred To Contact Diagnoses LEFT KNEE PAIN Procedures ARTHROSCOPY KNEE El Rodríguez MD [address] [place] [address] Phone: tel: fax: Referral ID Status Reason Start Date Expiration Date Visits Re quested Visits Authorized [id number] 1 1 Encounter Details Date Type Department Care Team (Latest Contact Info) Description 07/22/2022 6:18 AM CONTINUOUS IMPROVEMENT FACILITATOR - 07/22/2022 10:05 AM [facility] [place] [address] El Rodríguez MD [address] [place] [address] Tear of medial meniscus of left knee, [...] Coronavirus/COVID-19? No / Unsure 07/22/2022 6:18 AM CONTINUOUS IMPROVEMENT FACILITATOR documented as of this encounter Last Filed Vital Signs Vital Sign Reading Time Taken Comments Blood Pressure 120/69 07/22/2022 9:30 AM CONTINUOUS IMPROVEMENT FACILITATOR Pulse 58 07/22/2022 9:30 AM CONTINUOUS IMPROVEMENT FACILITATOR Temperature 36.6 ??C (97.8 ??F) 07/22/2022 9:30 AM CS T Respiratory Rate 16 07/22/2022 9:30 AM CONTINUOUS IMPROVEMENT FACILITATOR Oxygen Saturation 95% 07/22/2022 9:30 AM CONTINUOUS IMPROVEMENT FACILITATOR Inhaled Oxygen Concentration - - Weight 94 kg (207 lb 4 oz) 07/22/2022 6:51 AM CS T Height 167.6 cm (5' 6 ) 07/22/2022 6:51 AM CONTINUOUS IMPROVEMENT FACILITATOR Body Mass Index 33.45 07/22/2022 6:51 AM CONTINUOUS IMPROVEMENT FACILITATOR documented in this encounter Discharge Instructions * Discharge Instructions* Gertrudis Harrington RN - 07/22/2022 9:08 AM CONTINUOUS IMPROVEMENT FACILITATOR GENERAL GUIDELINES FOR MINIMIZING NAUSEA: Do not [...] as the smells make make you nauseated. INUOUS IMPROVEMENT FACILITATOR * Attachments The following attachments cannot be sent through Care Everywhere. * Knee Arthroscopy Care After (Azerbaijani) documented in this encounter Medications at Time [...] proceed. El Rodríguez MD 07/22/2022 7:24 AM CONTINUOUS IMPROVEMENT FACILITATOR INUOUS IMPROVEMENT FACILITATOR Source Note - El Rodríguez MD - 07/21/2022 9:16 AM CONTINUOUS IMPROVEMENT FACILITATOR documented in this encounter Nursing Notes * [...] in their respective areas of documen tation. INUOUS IMPROVEMENT FACILITATOR * Ibeth Sood RN - 07/22/2022 8:25 AM CST Specimen Transported to OR SPECIMEN ROOM by A KLAUDIA RODRIGUEZ INUOUS IMPROVEMENT FACILITATOR documented in this encounter OR Notes * [...] Surgeon: El Rodríguez MD, 07/22/2022, 7:38 AM CONTINUOUS IMPROVEMENT FACILITATOR INUOUS IMPROVEMENT FACILITATOR INUOUS IMPROVEMENT FACILITATOR documented in this encounter Miscellaneous Notes * [...] no previous admission in last 30 days INUOUS IMPROVEMENT FACILITATOR * Plan of Care - Priti Rios RN - 07/22/2022 8:41 AM CST Patient will be discharged from PACU when meeting criteria. INUOUS IMPROVEMENT FACILITATOR * Plan of Care - Gertrudis Harrington [...] no previous admission in last 30 days INUOUS IMPROVEMENT FACILITATOR * Interdisciplinary - Lina Patricia RN - 07/14/2022 12:29 PM CST Denies having COVID in past 90 days. No current COVID symptoms No COVID test needed INUOUS IMPROVEMENT FACILITATOR * Collin - Lina Patricia RN - 07/14/2022 12:09 PM CST [facility] Patient Name: Rowena Quesada : 1965 [facility]#: [id number] Person Educated Patient Ready to Learn Yes [...] be allowed to accompany you to the [facility]. No children under theage of 16 will be allowed in the [facility] unless they are the patient. If the [...] Patient Response: Verbalizes Understanding Patient assessed for scientific linguist during the preop interview and appropriate interventions taken if applicable. INUOUS IMPROVEMENT FACILITATOR documented in this encounter Plan of Treatment Not on file documented as of this encounter Procedures Procedure Name Priority Date/Time Associated Diagnosis Comments PATHOLOGY SURGICAL Routine 07/22/2022 8: 15 AM CONTINUOUS IMPROVEMENT FACILITATOR SYNOVECTOMY 07/22/2022 7:08 AM CONTINUOUS IMPROVEMENT FACILITATOR LEFT KNEE PAIN, TORN MEDIAL MENISCUS OF THE LEFT KNEE,SYNOVITISM OF THE LEFT KNEE, AND DEGENERATIVE ARTHRITIS OF THE LEFT KNEE?? Special Needs Hx: SVT 5' 6 206# No COVID test needed ARTHROSCOPY KNEE MENISCECTOMY 07/22/2022 7:08 AM CONTINUOUS IMPROVEMENT FACILITATOR LEFT KNEE PAIN, TORN MEDIAL MENISCUS OF THE LEFT KNEE,SYNOVITISM OF THE LEFT KNEE, AND DEGENERATIVE ARTHRITIS OF THE LEFT KNEE?? Special Needs Hx: SVT 5' 6 206# No COVID test needed ARTHROSCOPY KNEE 07/22/2022 7:08 AM CONTINUOUS IMPROVEMENT FACILITATOR LEFT KNEE PAIN, TORN MEDIAL MENISCUS OF THE LEFT KNEE,SYNOVITISM OF THE LEFT KNEE, AND DEGENERATIVE ARTHRITIS OF THE LEFT KNEE?? Special Needs Hx: SVT 5' 6 206# No COVID test needed UR TEST QUAL STAT 07/22/2022 6:51 AM CONTINUOUS IMPROVEMENT FACILITATOR documented in this encounter Results * Pathology Surgical (07/22/2022 8:15 AM CONTINUOUS IMPROVEMENT FACILITATOR) Case Report Surgical Pathology Report ? Case: [id number] ? Authorizing Provider: ??El Rodríguez MD ?Collected: ? 07/22/2022 08:15 AM ? [facility] ? Received: ?07/22/2022 12:56 PM ? [facility] ? Main OR ? Pathologist: ? Yobani Castellanos MD ? Specimen: ?Knee, ARTHROSCOPIC SHAVINGS, LEFT KNEE ? 07/23/2022 8:18 AM CONTINUOUS IMPROVEMENT FACILITATOR [facility] FINAL DIAGNOSIS TISSUE, LEFT KNEE, ARTHROSCOPIC SHAVINGS: - FRAGMENTS OF ARTICULAR CARTILAGE, BONE, SYNOVIUM, AND FIBROVASCULAR CONNECTIVE TISSUE. - NEGATIVE FOR SIGNIFICANT ACUTE INFLAMMATION OR CRYSTALLINE MATERIAL. 07/23/2022 8:18 AM [facility] Pre-Operative Diagnosis LEFT KNEE PAIN 07/23/2022 8:18 AM CONTINUOUS IMPROVEMENT FACILITATOR [facility] Gross Description A. ARTHROSCOPIC SHAVINGS, LEFT KNEE The specimen presents in a single formalin container for gross and microscopic examination, labeled with the patient's name, Roewna Quesada, and designated arthroscopic shavings left knee. The specimen consists of a rhina tissue filtration bag together with less than 1 gram of pale yellow-white tissue fragments. Alignment Technician sample submitted in cassette A1. KS/sb 07/23/2022 8:18 AM CONTINUOUS IMPROVEMENT FACILITATOR [facility] Microscopic Description Microscopic examination was performed which supports the final diagnosis. All control tissues stained appropriately. 07/23/2022 8:18 AM CONTINUOUS IMPROVEMENT FACILITATOR [facility] Tissue KNEE JOINT SYNOVIAL FLUID / Unknown 07/22/2022 8:15 AM CONTINUOUS IMPROVEMENT FACILITATOR 07/22/2022 12:56 PM CONTINUOUS IMPROVEMENT FACILITATOR lE Rodríguez MD PATHOLOGY/CYTOLOGY ORDERABLES Fi nal Result Performing Organization Address City/[facility]/ZIP Co de Phone Number [facility] [address] [place] [address] * Ur Test Qual (07/22/2022 6:51 AM CONTINUOUS IMPROVEMENT FACILITATOR) PREG TEST,MONOCLONA L Negative 07/22/2022 7:09 AM CONTINUOUS IMPROVEMENT FACILITATOR [facility] Urine Non-Phlebotomy Collection / Unknown 07/22/2022 6:51 AM CONTINUOUS IMPROVEMENT FACILITATOR 07/22/2022 6:56 AM CONTINUOUS IMPROVEMENT FACILITATOR El Rodríguez MD URINE ORDERABLES Final Result Performing Organization Address City/[facility] Co de Phone Number [facility] [address] [place] [address] documented in this encounter Visit Diagnoses Diagnosis [...] hours., PRE-OP (SURGERY) Given 07/22/2022 6:59 AM CONTINUOUS IMPROVEMENT FACILITATOR 975 mg ACETAMINOPHEN 325 MG PO TABS 1 dose, Starting on Wed07/22/22 at 0636, Until Wed07/22/22 at 0659, Created by cabinet override celecoxib (CeleBREX) capsule 200 mg 200 mg, Oral, ONCE, 1 dose, On Wed07/22/22 at 0700, PRE-OP (SURGERY) Given 07/22/2022 6:59 AM CONTINUOUS IMPROVEMENT FACILITATOR 200 mg CELECOXIB 200 MG PO CAPS 1 dose, Starting on Wed07/22/22 at 0636, Until Wed07/22/22 at 0659, Created by cabinet override dexamethasone (DECADRON) injection 8 mg 8 mg, Intravenous, ONCE, 1 dose, On Wed07/22/22 at 0700, PRE-OP (SURGERY) Given 07/22/2022 7:03 AM CONTINUOUS IMPROVEMENT FACILITATOR 8 mg DEXAMETHASONE SODIUM PHOSPHATE 4 MG/ML [...] 2) increasing dosage, or 3) changing to ECONOMIC GEOGRAPHER. Given 07/22/2022 8:52 AM CONTINUOUS IMPROVEMENT FACILITATOR 1 Tablet lactated ringers infusion at 20 mL/hr, Intravenous, CONTINUOUS, Starting on Wed07/22/22 at 0700, Until Wed07/22/22 at 1214, PRE-OP (SURGERY) New Bag 07/22/2022 7:03 AM CONTINUOUS IMPROVEMENT FACILITATOR 20 mL/hr MIDAZOLAM HCL (PF) 2 MG/2ML IJ SOLN 1 dose, Starting on Wed07/22/22 at 0650, Until Wed07/22/22 at 1214, Created by cabinet override ondansetron (ZOFRAN) injection 4 mg 4 mg, Intravenous, ONCE, 1 dose, On Wed07/22/22 at 0700, PRE-OP (SURGERY) Given 07/22/2022 7:03 AM CONTINUOUS IMPROVEMENT FACILITATOR 4 mg ONDANSETRON HCL 4 MG/2ML IJ SOLN 1 dose, Starting on Wed07/22/22 at 0637, Until Wed07/22/22 at 0703, Created by cabinet override documented in this encounter Active and Recently Administered Medications Times are shown in CONTINUOUS IMPROVEMENT FACILITATOR. Scheduled Medication Order 07/20/2022 07/21/2022 07/22/2022 acetaminophen [...] 2) increasing dosage, or 3) changing to ECONOMIC GEOGRAPHER. 0852 (Given - Provid er: Priti Rios [...] override documented in this encounter Care Teams Termite Control Representative Relationship Specialty Start Date End Date Baldomero Dominguez MD [address] [place] [address] PCP - General Family Medicine 03/20/20 documented as of this encounter
--- OUTSIDE RECORDS SUMMARY | 2024-07-11 12:23 | XMS_ITS | Encounter Summary ---
Author Organization [facility] Address [address] [facility] [place] [address] Phone Care Team Providers Care Steam Fitter Supervisor Maintenance Name Role Phone Baldoemro Dominguez MD Primary Care Provider [phone] Reason for Referral * Radiology Services (Routine) - Closed Specialty Diagnoses / Procedures Referred By Vianca montiel Referred To Contact Radiology Diagnoses Osteoarthritis of both knees, unspecified osteoarthritis type Procedures EKG 12 LEAD El Rodríguez MD Phone: tel: fax: Referral ID Status Reason Start Date Expiration Date Visits Re quested Visits Authorized [id number] Closed 03/19/2020 1 1 Reason for Visit * Radiology Services (Routine) - Closed Specialty Diagnoses / Procedures Referred By Vianca montiel Referred To Contact Radiology Diagnoses Osteoarthritis of both knees, unspecified osteoarthritis type Procedures EKG 12 LEAD El Rodríguez MD Phone: tel: fax: Referral ID Status Reason Start Date Expiration Date Visits Re quested Visits Authorized [id number] Closed 03/19/2020 1 1 Encounter Details Date Type Department Care Team (Latest Contact Info) Description 03/20/2020 12:30 PM CDT [facility] 1 [place] [address] El Rodríguez MD [address] [place] [address] Discharge Disposition: Discharged to home or Selfcare [...] QTC CALCULATION 404 ms EXTERNAL EKG P [place] 55 degrees EXTERNAL EKG R [place] 34 degrees EXTERNAL EKG T [place] 38 degrees EXTERNAL EKG 03/20/2020 1:01 PM CDT Impressions EXTERNAL EKG - 03/21/2020 11:18 AM CDT Sinus rhythm rSr'(V1) - probable normal variant Anterior T wave abnormality is nonspecific Comparison Summary: No serial comparison made Summary: Borderline ECG Confirmed by Sary Pizano [id number] on 03/21/2020 11:18:42 AM Narrative Procedure Note Halima Okeefe MD - 03/21/2020 IMPRESSION: Sinus rhythm rSr'(V1) - probable normal variant Anterior T wave abnormality is nonspecific Comparison Summary: No serial comparison made Summary: Borderline ECG Confirmed by Sary Pizano [id number] on 03/21/2020 11:18:42 AM El Rodríguez MD IMG ECG ORDERABLES Final Result EXTERNAL EKG documented in this encounter Visit Diagnoses Diagnosis Osteoarthritis of both knees, unspecified osteoarthritis type documented in this encounter Care Teams Steam Fitter Supervisor Maintenance Relationship Specialty Start Date End Date Baldomero Dominguez MD [address] [address] PCP - General Family Medicine 03/20/20 documented as of this encounter
--- OUTSIDE RECORDS SUMMARY | 2024-07-11 12:23 | XMS_ITS | Continuity of Care Document ---
Author Organization [facility] Address [address] [facility] [address] Phone Care Team Providers Care Maltster Name Role Phone Julito Avalos MD Unavailable Unavailable Advance Directives Directive Yes / No Effective Date File Name No Information Encounters Encounter Description Practice Location Reason(s) For Visit Diagnoses Date Provider Providers Copied on Encounter [facility], [address] [place] [address] [facility] [place] [facility] of [facility], tel:[phone] [facility] No Information Robbie Vila. [address] [place], [place], On license of [facility]. tel:[phone] Family History Family Member Type Diagnosis Age At Onset No Information Payers Payer name Insurance type Covered republican ID Authoriza tion(s) No Information Social History [...]
--- OUTSIDE RECORDS SUMMARY | 2024-07-11 12:23 | XMS_ITS | Encounter Summary ---
Author Organization [facility] Address [address] [place] [address] Phone Care Team Providers Care Shank Cutter Name Role Phone Baldomero Dominguez MD Primary Care Provider [phone] Reason for Referral * Radiology Services (Routine) - Closed Specialty Diagnoses / Procedures Referred By Vianca montiel Referred To Contact Radiology Diagnoses Preop testing Procedures EKG 12 LEAD El Rodríguez MD Phone: tel: fax: Referral ID Status Reason Start Date Expiration Date Visits Re quested Visits Authorized Closed 07/14/2022 1 1 TOP ARCHITECT Reason for Visit * Radiology Services (Routine) [...] (Latest Contact Info) Description 07/14/2022 12:47 PM DESKTOP ARCHITECT - 07/14/2022 1:01 PM DESKTOP ARCHITECT [facility] 1 [place] [address] El Rodríugez MD [address] [place] [address] Discharge Disposition: Discharged to home or Selfcare [...] Coronavirus/COVID-19? No / Unsure 07/14/2022 11:50 AM DESKTOP ARCHITECT documented as of this encounter Medications at [...] EKG 12 LEAD Routine 07/14/2022 12:58 PM DESKTOP ARCHITECT Preop testing documented in this encounter Results * EKG 12 LEAD (07/14/2022 12:58 PM DESKTOP ARCHITECT) Ventricular Rate 61 BPM EXTERNAL EKG Atrial Rate 61 BPM EXTERNAL EKG P-R Interval 172 ms EXTERNAL EKG QRS Duration 100 ms EXTERNAL EKG Q-T Duration 400 ms EXTERNAL EKG QTC CALCULATION 402 ms EXTERNAL EKG P [place] -13 degrees EXTERNAL EKG R [place] 36 degrees EXTERNAL EKG T [place] 30 degrees EXTERNAL EKG 07/14/2022 12:5 8 PM DESKTOP ARCHITECT Impressions EXTERNAL EKG - 07/15/2022 11:06 AM DESKTOP ARCHITECT Normal sinus rhythm Normal ECG No previous ECGs available Confirmed by Prabhjot Barbosa ([id number]) on 07/15/2022 11:06:05 AM Narrative Procedure Note Neto Barbosa, Prabhjot, MD - 07/15/2022 IMPRESSION: Normal sinus rhythm Normal ECG No previous ECGs available Confirmed by Prabhjot Barbosa ([id number]) on 07/15/2022 11:06:05 AM us El Rodríguez MD IMG ECG ORDERABLES Final Result EXTERNAL EKG documented in this encounter Visit Diagnoses Diagnosis Preop testing Preoperative examination, unspecified documented in this encounter Care Teams Shank Cutter Relationship Specialty Start Date End Date Baldomero Dominguez MD [address] [place] [address] PCP - General Family Medicine 03/20/20 documented as of this encounter
--- OUTSIDE RECORDS SUMMARY | 2024-07-11 12:23 | XMS_ITS | Encounter Summary ---
Author Organization [facility] Address [address] [facility] [place] [address] Phone Care Team Providers Care Dry Chain Operator Name Role Phone Baldomero Dominguez MD Primary Care Provider [phone] Reason for Referral * Radiology Services (Routine) - Closed Specialty Diagnoses / Procedures Referred By Vianca montiel Referred To Contact Radiology Diagnoses Osteoarthritis of both knees, unspecified osteoarthritis type Procedures XR CHEST 2 VIEWS El Rodríguez MD Phone: tel: fax: Referral ID Status Reason Start Date Expiration Date Visits Re quested Visits Authorized [id number] Closed 03/19/2020 1 1 Reason for Visit * Radiology Services (Routine) - Closed Specialty Diagnoses / Procedures Referred By Vianca montiel Referred To Contact Radiology Diagnoses Osteoarthritis of both knees, unspecified osteoarthritis type Procedures XR CHEST 2 VIEWS El Rodríguez MD Phone: tel: fax: Referral ID Status Reason Start Date Expiration Date Visits Re quested Visits Authorized [id number] Closed 03/19/2020 1 1 Encounter Details Date Type Department Care Team (Latest Contact Info) Description 03/20/2020 12:31 PM CDT - 03/20/2020 11:59 PM CDT [facility] 1 [place] [address] El Rodríguez MD [address] [place] [address] Discharge Disposition: Discharged to home or Selfcare [...] AM T: ??03/21/2020 10:06 AM Report ID: [id number] Reading Location: ??[id number] Procedure Note Michele Fabian MD - 03/21/2020 [...] Michele Fabian M.D. RS: LEONARDO Report ID: [id number] Reading Location: [id number] IMPRESSION: No acute cardiopulmonary abnormality. El Rodríguez MD IMG DIAGNOSTIC ORDERABLES Final Result documented in this encounter Visit Diagnoses Diagnosis Osteoarthritis of both knees, unspecified osteoarthritis type documented in this encounter Care Teams Dry Chain Operator Relationship Specialty Start Date End Date Baldomero Dominguez MD [facility] [address] [address] PCP - General Family Medicine 03/20/20 documented as of this encounter
--- OUTSIDE RECORDS SUMMARY | 2024-07-11 12:23 | XMS_ITS | Encounter Summary ---
Author Organization [employer] Care Team Providers Care Assistant Professor Of Biology Name Role Phone Baldomero Dominguez MD Primary Care Provider [phone] Encounter Details Date Type Department Care Team [...] filedocumented in this encounter Care Teams Assistant Professor Of Biology Relationship Specialty Start Date End Date Baldomero Dominguez MD [address] [place] [address] PCP - General Family Medicine 03/20/20 documented as of this encounter
--- OUTSIDE RECORDS SUMMARY | 2024-07-11 12:23 | XMS_ITS | Encounter Summary ---
Author Organization [facility] Address [address] [facility] [place] [address] Phone Care Team Providers Care Manager Fleet Name Role Phone Unavailable Primary Care Provider Unavailabl e Reason for Referral * Radiology Services (Routine) - Closed Specialty Diagnoses / Procedures Referred By Vianca montiel Referred To Contact Radiology Diagnoses Osteoarthritis of both knees, unspecified osteoarthritis type Procedures EKG 12 LEAD El Rodríguez MD Phone: tel: fax: Referral ID Status Reason Start Date Expiration Date Visits Re quested Visits Authorized [id number] Closed 03/19/2020 1 1 * Radiology Services (Routine) - Closed Specialty Diagnoses / Procedures Referred By Vianca montiel Referred To Contact Radiology Diagnoses Osteoarthritis of both knees, unspecified osteoarthritis type Procedures XR CHEST 2 VIEWS El Rodríguez MD Phone: tel: fax: Referral ID Status Reason Start Date Expiration Date Visits Re quested Visits Authorized [id number] Closed 03/19/2020 1 1 Encounter Details Date Type Department Care Team (Latest Contact Info) Description 03/19/2020 [facility] Ad[facility] [place] [id number] El Rodríguez MD [address] [place] [id number] Osteoarthritis of both knees, unspecified osteoarthritis type [...] QTC CALCULATION 404 ms EXTERNAL EKG P [place] 55 degrees EXTERNAL EKG R [place] 34 degrees EXTERNAL EKG T [place] 38 degrees EXTERNAL EKG 03/20/2020 1:01 PM CDT Impressions EXTERNAL EKG - 03/21/2020 11:18 AM CDT Sinus rhythm rSr'(V1) - probable normal variant Anterior T wave abnormality is nonspecific Comparison Summary: No serial comparison made Summary: Borderline ECG Confirmed by Sary Pizano [id number] on 03/21/2020 11:18:42 AM Narrative Procedure Note Halima Okeefe MD - 03/21/2020 IMPRESSION: Sinus rhythm rSr'(V1) - probable normal variant Anterior T wave abnormality is nonspecific Comparison Summary: No serial comparison made Summary: Borderline ECG Confirmed by Sary Pizano [id number] on 03/21/2020 11:18:42 AM El Rodríguez MD [...] AM T: ??03/21/2020 10:06 AM Report ID: [id number] Reading Location: ??[id number] Procedure Note Michele Fabian MD - 03/21/2020 [...] Michele Fabian M.D. RS: RS Report ID: [id number] Reading Location: [id number] IMPRESSION: No acute cardiopulmonary abnormality. El Rodríguez MD [facility] DIAGNOSTIC ORDERABLES Final Result * (ABNORMAL) URIC ACID (BLOOD ASSAY) (03/20/2020 12:27 PM CDT) URIC ACID 7.1(H) 2.4 - 5.7 mg/dL 03/20/2020 1:10 PM CDT [facility] Blood Venipuncture / Unknown 03/20/2020 12:27 PM CDT 03/20/2020 12:43 PM CDT El Rodríguez MD CHEMISTRY ORDERABLES Final Resul t Performing Organization Address [facility] de Phone Number [facility] [place] [address] * RHEUMATOID FACTOR (RFQT) QUANT (03/20/2020 12:27 PM CDT) RHEUMATOID FACTOR QT <=10 <14 IU/mL 03/20/2020 1:10 PM CDT [facility] Blood Venipuncture / Unknown 03/20/2020 12:27 PM CDT 03/20/2020 12:43 PM CDT Narrative [facility] - 03/20/2020 1:10 PM CDT RHEUMATOID [...] ORDERABLES Final Resul t Performing Organization Address [facility] de Phone Number [facility] [place] [address] * ERYTHROCYTE SEDIMENTATION RATE (ESR) (03/20/2020 12:27 PM CDT) ESR (SED RATE, ERYTHROCYTE SEDIMENTATION RATE) 11 <30 mm/h 03/20/2020 12:53 PM CDT [facility] Comment:Patients presenting with abnormally high or low RBC counts and other hemoglobinopathies could affect the results for the erythrocyte sedimentation rate (ESR). Results should be clinically correlated. Blood Venipuncture / Unknown 03/20/2020 12:27 PM CDT 03/20/2020 12:43 PM CDT us El Rodríguez MD HEMATOLOGY ORDERABLES Final Resu lt Performing Organization Address City/[facility]/ZIP Co de Phone Number [facility] [place] [address] * (ABNORMAL) C-REACTIVE PROTEIN (CRP) QUANT (03/20/2020 12:27 PM CDT) C-REACTIVE PROTEIN 2.92(H) <0.50 mg/dL 03/20/2020 1:11 PM CDT [facility] Blood Venipuncture / Unknown 03/20/2020 12:27 PM CDT 03/20/2020 12:43 PM CDT us El Rodríguez MD CHEMISTRY ORDERABLES Final Resul t Performing Organization Address City/[facility]/ZIP Co de Phone Number [facility] [address] [place] [address] * (ABNORMAL) CMP (COMPREHENSIVE METABOLIC PANEL) (03/20/2020 12:27 PM CDT) SODIUM 138 136 - 144 mmol/L 03/20/2020 1:10 PM CDT [facility] POTASSIUM 3.7 3.5 - 5.1 mmol/L 03/20/2020 1:10 PM CDT [facility] CHLORIDE 102 100 - 110 mmol/L 03/20/2020 1:10 PM CDT [facility] CO2, VENOUS 28 22 - 32 mmol/L 03/20/2020 1:10 PM CDT [facility] ANION GAP 11.7 8.0 - 20.0 mmol/L 03/20/2020 1:10 PM CDT [facility] GLUCOSE 128(H) 70 - 99 mg/dL 03/20/2020 1:10 PM CDT [facility] BUN 11 6 - 20 mg/dL 03/20/2020 1:10 PM CDT [facility] CREATININE, BLOOD 0.70 0.60 - 1.10 mg/dL 03/20/2020 1:10 PM CDT [facility] BUN/CREATININE RATIO 16 12 - 20 ratio 03/20/2020 1:10 PM CDT [facility] TOTAL PROTEIN 6.7 6.0 - 8.3 g/dL 03/20/2020 1:10 PM CDT [facility] ALBUMIN 3.9 3.5 - 5.2 g/dL 03/20/2020 1:10 PM CDT [facility] Comment: The colormetric methods used for the determination of Albumin may lead to falsely elevated test results in patients suffering from renal failure or insufficiency due to interference with other proteins. A/G RATIO 1.4 1.0 - 2.0 03/20/2020 1:10 PM CDT [facility] CALCIUM 9.2 8.9 - 10.3 mg/dL 03/20/2020 1:10 PM CDT [facility] T BILI 0.4 <=1.2 mg/dL 03/20/2020 1:10 PM CDT [facility] SGOT (AST) 15 <=32 U/L 03/20/2020 1:10 PM CDT [facility] SGPT (ALT) 20 <=33 U/L 03/20/2020 1:10 PM CDT [facility] ALKALINE PHOSPHATASE 67 35 - 105 U/L 03/20/2020 1:10 PM CDT [facility] GFR, EST. NONAFRICAN >60 >=60 03/20/2020 1:10 PM CDT [facility] GFR, EST. >60 >=60 020 1:10 PM CDT [facility] Comment: Creatinine Clearance is the preferred criteria for selecting drug dose adjustments in renally impaired patients. ??The GFR is provided as additional pertinent clinical information. GFR is reported in mL/min/1.73 sq m. Blood Venipuncture / Unknown 03/20/2020 12:27 PM CDT 03/20/2020 12:43 PM CDT El Rodríguez MD CHEMISTRY ORDERABLES Final Resul t [facility] [place] [address] * ANTINUCLEAR ANTIBODY (RACHELLE), TITER IF POS (03/20/2020 12:27 PM CDT) RACHELLE SCREEN Negative Negative titer 03/21/2020 12:02 PM CDT [facility] Comment: Antinuclear autoantibodies not detected by IFA at a 1:80 screening dilution of HEp-2 cells. Blood Venipuncture / Unknown 03/20/2020 12:27 PM CDT 03/20/2020 12:43 PM CDT us El Rodríguez MD IMMUNOLOGY ORDERABLES Final Resu lt [facility] [address] [place] [address], [place] documented in this encounter Visit Diagnoses Diagnosis Osteoarthritis of both knees, unspecified osteoarthritis type- Primary Osteoarthritis of both knees, unspecified osteoarthritis type Osteoarthritis of both knees, unspecified osteoarthritis type documented in this encounter
--- OUTSIDE RECORDS SUMMARY | 2024-07-11 12:23 | XMS_ITS | Encounter Summary ---
Author Organization [employer] Care Team Providers Care Preschool Director Name Role Phone Baldomero Dominguez MD Primary Care Provider [phone] Encounter Details Date Type Department Care Team [...] Coronavirus/COVID-19? No / Unsure 07/14/2022 11:50 AM SENIOR GAMEMASTER documented as of this encounter Plan of Treatment Not on file documented as of this encounter Visit Diagnoses Not on filedocumented in this encounter Care Teams Preschool Director Relationship Specialty Start Date End Date Baldomero Dominguez MD [address] [address] PCP - General Family Medicine 03/20/20 documented as of this encounter
--- OUTSIDE RECORDS SUMMARY | 2024-07-11 12:23 | XMS_ITS | Clinical Summary ---
Author Organization [facility] Address [address] [place] [address] Care Team Providers Care Banquet Kitchen Supervisor Name Role Phone Baldomero Dominguez MD Primary Care Provider [phone] Source Comments [facility],non-owned Affiliates and Associated Physician Practices is amultiple site organization consisting of ambulatory clinics and hospital sitesin [place], [place], [place] and [place]. This disclosure is being madepursuant to the Care Everywhere program and may not contain all information available regarding this patient. Last updated 18.[facility] Allergies Active Allergy Reactions Criticality Noted [...] Comments Blood Pressure 112/70 09/02/2023 1:17 PM SECURITY OPERATIONS CENTER OPERATOR Pulse 81 09/02/2023 1:17 PM SECURITY OPERATIONS CENTER OPERATOR Temperature 36.7 ??C (98 ??F) 09/02/2023 1:17 PM SECURITY OPERATIONS CENTER OPERATOR Respiratory Rate 16 09/02/2023 1:17 PM SECURITY OPERATIONS CENTER OPERATOR Oxygen Saturation 100% 09/02/2023 1:17 PM SECURITY OPERATIONS CENTER OPERATOR Inhaled Oxygen Concentration - - Weight 103.9 kg (229 lb) 09/02/2023 1:17 PM SECURITY OPERATIONS CENTER OPERATOR Height 167.6 cm (5' 6 ) 09/02/2023 1:17 PM SECURITY OPERATIONS CENTER OPERATOR Body Mass Index 36.96 09/02/2023 1:17 PM SECURITY OPERATIONS CENTER OPERATOR Plan of Treatment Health Maintenance Due Date [...] Recently Relevant to Health Maintenance Care Teams Banquet Kitchen Supervisor Relationship Specialty Start Date End Date Baldomero Dominguez MD [address] [place] [address] [address] [place] [address] PCP - General 12/29/19
--- OUTSIDE RECORDS SUMMARY | 2024-07-11 12:23 | XMS_ITS | Encounter Summary ---
Author Organization [facility] Address [address] [place] [address] Phone Care Team Providers Care Public Policy Analyst Name Role Phone Baldomero Dominguez MD Primary Care Provider [phone] Reason for Referral * Radiology Services (Routine) - Closed Specialty Diagnoses / Procedures Referred By Vianca montiel Referred To Contact Radiology Diagnoses Preop testing Procedures XR CHEST 2 VIEWS El Rodríguez MD Phone: tel: fax: Referral ID Status Reason Start Date Expiration Date Visits Re quested Visits Authorized Closed 07/14/2022 1 1 IT ADMINISTRATION MANAGER Reason for Visit * Radiology Services (Routine) [...] (Latest Contact Info) Description 07/14/2022 1:02 PM CREDIT ADMINISTRATION MANAGER - 07/14/2022 11:59 PM CREDIT ADMINISTRATION MANAGER [facility] 1 [place] [address] El Rodríguez MD [address] [place] [address] Discharge Disposition: Discharged to home or Selfcare [...] Coronavirus/COVID-19? No / Unsure 07/14/2022 11:50 AM CREDIT ADMINISTRATION MANAGER documented as of this encounter Medications at [...] CHEST 2 VIEWS Routine 07/14/2022 1:11 PM CREDIT ADMINISTRATION MANAGER Preop testing documented in this encounter Results * XR CHEST 2 VIEWS (07/14/2022 1:11 PM CREDIT ADMINISTRATION MANAGER) Anatomical Region Laterality Modality Chest N/A Digital Radiogra phy 07/14/2022 9:34 PM CREDIT ADMINISTRATION MANAGER Impressions 07/14/2022 9:37 PM CREDIT ADMINISTRATION MANAGER IMPRESSION: ?? No acute cardiopulmonary abnormality. Narrative 07/14/2022 9:37 PM CREDIT ADMINISTRATION MANAGER EXAM DESCRIPTION: ?? XR CHEST 2 VIEWS [...] PM T: ??07/14/2022 9:34 PM Report ID: [id number] Reading Location: ??[id number] Procedure Note Phil Hall MD - 07/14/2022 [...] Phil Hall M.D. RW: YELENA Report ID: [id number] Reading Location: [id number] IMPRESSION: No acute cardiopulmonary abnormality. El Rodríguez MD IMG DIAGNOSTIC ORDERABLES Final Result documented in this encounter Visit Diagnoses Diagnosis Preop testing Preoperative examination, unspecified documented in this encounter Care Teams Public Policy Analyst Relationship Specialty Start Date End Date Baldomero Dominguez MD [address] [place] [address] PCP - General Family Medicine 03/20/20 documented as of this encounter
--- OUTSIDE RECORDS SUMMARY | 2024-07-11 12:23 | XMS_ITS | Continuity of Care Document ---
Author Organization [facility] Address [address] [place] [address] Phone Care Team Providers Care Mail Clerks Supervisor Name Role Phone Vickey TOWNSEND, TARAT, Priti Unavailable Unavailable Procedures Procedure Date Progress Note Therapeutic Activities Manual Therapy Neuromuscular Re-Ed Therapeutic Exercise Hot or Cold Pack Therapeutic Exercise Neuromuscular Re-Ed Therapeutic Activities Manual Therapy Hot or Cold Pack Therapeutic Activities Manual Therapy Therapeutic Exercise Neuromuscular Re-Ed Hot or Cold Pack Neuromuscular Re-Ed Therapeutic Activities Manual Therapy Therapeutic Exercise Hot or Cold Pack Therapeutic Activities Neuromuscular Re-Ed PT Evaluation Low Complexity Therapeutic Exercise Advance Directives Directive Yes / No Effective Date File Name No Information Encounters Encounter Description Practice Location Reason(s) For Visit Diagnoses Date Provider Providers Copied on Encounter [facility], [address] [address], [place], [place], [id number], tel:[phone] [place] No Information 0 Vickey Marcos. . Referring Provider: El Rodríguez, [address] [place] [address], [address]. tel:[phone] [facility], [id number], tel:[phone] [place] No Information Dec-1 0-202 0 Lehnen Priti. . Referring Provider: El Rodríguez, [address] [place] [address], [id number]. tel:[phone] [facility] [address] [place] [address], [id number], tel:[phone] [place] No Information Dec-0 3-202 0 Lehnen Priti. . Referring Provider: El Rodríguez, [address] [place] [address], [id number]. tel:[phone], [id number], tel:[phone] [place] No Information May-3 0-202 0 Lehnen Priti. . Referring Provider: El Rodríguez, [address] [place] [address], [address]. tel:[phone], [id number], tel:[phone] [place] No Information May-2 4-202 0 Lehnen Priti. . Referring Provider: El Rodríguez, [address] [place] [address], [id number]. tel:[phone] Family History Family Member Type Diagnosis Age At Onset No Information Payers Payer name Insurance type Covered libertarian ID Enriqueta paulson(melvin Knut[facility] CI [id number] Social History Type Description Quantity Date Captured [...]
--- OUTSIDE RECORDS SUMMARY | 2024-07-11 12:23 | XMS_ITS | Encounter Summary ---
Author Organization [facility] Address [address] [place] [address] Phone Care Team Providers Care Research Neuropsychologist Name Role Phone Baldomero Dominguez MD Primary Care Provider [phone] Reason for Referral * Radiology Services (Routine) - Closed Specialty Diagnoses / Procedures Referred By Vianca montiel Referred To Contact Radiology Diagnoses Preop testing Procedures XR CHEST 2 VIEWS El Rodríguez MD Phone: tel: fax: Referral ID Status Reason Start Date Expiration Date Visits Re quested Visits Authorized Closed 07/14/2022 1 1 LY ASSISTANT * Radiology Services (Routine) - Closed Specialty Diagnoses / Procedures Referred By Vianca montiel Referred To Contact Radiology Diagnoses Preop testing Procedures EKG 12 LEAD El Rodríguez MD Phone: tel: fax: Referral ID Status Reason Start Date Expiration Date Visits Re quested Visits Authorized Closed 07/14/2022 1 1 LY ASSISTANT Encounter Details Date Type Department Care Team (Latest Contact Info) Description 07/14/2022 Transcribe Orders [facility] Preop/Pacu II [address] [place] [id number] El Rodríguez MD [address] [place] [address] Preop testing (Primary Dx) Social History Tobacco [...] Coronavirus/COVID-19? No / Unsure 07/14/2022 11:50 AM SUPPLY ASSISTANT documented as of this encounter Plan of Treatment Not on file documented as of this encounter Results * XR CHEST 2 VIEWS (07/14/2022 1:11 PM SUPPLY ASSISTANT) Anatomical Region Laterality Modality Chest N/A Digital Radiogra phy 07/14/2022 9:34 PM SUPPLY ASSISTANT Impressions 07/14/2022 9:37 PM SUPPLY ASSISTANT IMPRESSION: ?? No acute cardiopulmonary abnormality. Narrative 07/14/2022 9:37 PM SUPPLY ASSISTANT EXAM DESCRIPTION: ?? XR CHEST 2 VIEWS [...] PM T: ??07/14/2022 9:34 PM Report ID: [id number] Reading Location: ??[id number] Procedure Note Phil Hall MD - 07/14/2022 [...] Phil Hall M.D. RW: YELENA Report ID: [id number] Reading Location: [id number] IMPRESSION: No acute cardiopulmonary abnormality. El Rodríguez MD IMG DIAGNOSTIC ORDERABLES Final Result * URIC ACID (BLOOD ASSAY) (07/14/2022 1:01 PM SUPPLY ASSISTANT) URIC ACID 4.8 2.4 - 5.7 mg/dL 07/14/2022 1:58 PM SUPPLY ASSISTANT [facility] Blood Venipuncture / Unknown 07/14/2022 1:01 PM SUPPLY ASSISTANT 07/14/2022 1:13 PM SUPPLY ASSISTANT El Rodríguez MD CHEMISTRY ORDERABLES Final Resul t [facility] Organization Address City/State/ZIP Co de Phone Number [facility] [place] [address] * (ABNORMAL) C-REACTIVE PROTEIN (CRP) QUANT (07/14/2022 1:01 PM SUPPLY ASSISTANT) C-REACTIVE PROTEIN 0.57(H) <0.50 mg/dL 07/14/2022 1:58 PM SUPPLY ASSISTANT [facility] Blood Venipuncture / Unknown 07/14/2022 1:01 PM SUPPLY ASSISTANT 07/14/2022 1:13 PM SUPPLY ASSISTANT us El Rodríguez MD CHEMISTRY ORDERABLES Final Resul t Performing Organization Address City/[facility]/ZIP Co de Phone Number [facility] [place] [address] * ANTINUCLEAR ANTIBODY (RACHELLE), TITER IF POS (07/14/2022 1:01 PM SUPPLY ASSISTANT) RACHELLE SCREEN Negative Negative titer 07/15/2022 11:34 AM SUPPLY ASSISTANT [facility] Comment: Antinuclear autoantibodies not detected by IFA at a 1:80 screening dilution of HEp-2 cells. Blood Venipuncture / Unknown 07/14/2022 1:01 PM SUPPLY ASSISTANT 07/14/2022 1:13 PM SUPPLY ASSISTANT us El Rodríguez MD IMMUNOLOGY ORDERABLES Final Resu lt Performing Organization Address City/[facility] Co de Phone Number [facility] [address] [place] [address], [place] * (ABNORMAL) RHEUMATOID FACTOR (RFQT) QUANT (07/14/2022 1:01 PM SUPPLY ASSISTANT) Pathologist [facility] RHEUMATOID FACTOR QT 18(H) <14 IU/mL 07/14/2022 1:58 PM SUPPLY ASSISTANT [facility] Blood Venipuncture / Unknown 07/14/2022 1:01 PM SUPPLY ASSISTANT 07/14/2022 1:13 PM SUPPLY ASSISTANT Narrative [facility] - 07/14/2022 1:58 PM SUPPLY ASSISTANT RHEUMATOID FACTORS CAN BE FOUND IN RHEUMATOID [...] ORDERABLES Final Resul t Performing Organization Address City/[facility]/ZIP Co de Phone Number [facility] [address] [place] [address] * ERYTHROCYTE SEDIMENTATION RATE (ESR) (07/14/2022 1:01 PM SUPPLY ASSISTANT) ESR (SED RATE, ERYTHROCYTE SEDIMENTATION RATE) 10 <30 mm/h 07/14/2022 1:24 PM SUPPLY ASSISTANT [facility] Comment: Patients presenting with increased level of fibrinogen, gamma globulins, or abnormally shaped RBCs could affect the results for the erythrocyte sedimentation rate (ESR). Results should be clinically correlated. Blood Venipuncture / Unknown 07/14/2022 1:01 PM SUPPLY ASSISTANT 07/14/2022 1:15 PM SUPPLY ASSISTANT us El Rodríguez MD HEMATOLOGY ORDERABLES Final Resu lt [facility] [address] [place] [address] * (ABNORMAL) CMP (COMPREHENSIVE METABOLIC PANEL) (07/14/2022 1:01 PM SUPPLY ASSISTANT) Pathologist [facility] SODIUM 140 136 - 144 mmol/L 07/14/2022 1:58 PM SUPPLY ASSISTANT [facility] POTASSIUM 3.6 3.5 - 5.1 mmol/L 07/14/2022 1:58 PM SUPPLY ASSISTANT [facility] CHLORIDE 104 100 - 110 mmol/L 07/14/2022 1:58 PM SUPPLY ASSISTANT [facility] CO2, VENOUS 29 22 - 32 mmol/L 07/14/2022 1:58 PM SUPPLY ASSISTANT [facility] ANION GAP 10.6 8.0 - 20.0 mmol/L 07/14/2022 1:58 PM SUPPLY ASSISTANT [facility] GLUCOSE 123(H) 70 - 99 mg/dL 07/14/2022 1:58 PM SUPPLY ASSISTANT [facility] BUN 11 6 - 20 mg/dL 07/14/2022 1:58 PM SUPPLY ASSISTANT [facility] CREATININE, BLOOD 0.55(L) 0.60 - 1.10 mg/dL 07/14/2022 1:58 PM SUPPLY ASSISTANT [facility] BUN/CREATININE RATIO 20 12 - 20 ratio 07/14/2022 1:58 PM [facility] TOTAL PROTEIN 7.1 6.0 - 8.3 g/dL 07/14/2022 1:58 PM [facility] ALBUMIN 4.0 3.5 - 5.2 g/dL 07/14/2022 1:58 PM [facility] Comment: The colormetric methods used for the determination of Albumin may lead to falsely elevated test results in patients suffering from renal failure or insufficiency due to interference with other proteins. A/G RATIO 1.3 1.0 - 2.0 07/14/2022 1:58 PM [facility] CALCIUM 9.8 8.9 - 10.3 mg/dL 07/14/2022 1:58 PM [facility] T BILI 0.3 <=1.2 mg/dL 07/14/2022 1:58 PM [facility] SGOT (AST) 13 <=32 U/L 07/14/2022 1:58 PM [facility] SGPT (ALT) 9 <=41 U/L 07/14/2022 1:58 PM [facility] ALKALINE PHOSPHATASE 68 35 - 105 U/L 07/14/2022 1:58 PM [facility] IS THE PATIENT REQUIRED TO BE FASTING? No 07/14/2022 1:58 PM [facility] GFR, ESTIMATED >60 >=60 07/14/2022 1:58 PM [facility] Comment: Creatinine Clearance is the preferred criteria for selecting drug dose adjustments in renally impaired patients. ??The GFR is provided as additional pertinent clinical information. GFR is reported in mL/min/1.73 sq m. Calculation based on the Chronic Kidney Disease Epidemiology Collaboration (CKD- EPI) equation refit without adjustment for race. GFR, EST. >60 >=60 022 1:58 PM [facility] GFR, EST. NONAFRICAN >60 >=60 07/14/2022 1:58 PM [facility] Blood Venipuncture / Unknown 07/14/2022 1:01 PM SUPPLY ASSISTANT 07/14/2022 1:13 PM SUPPLY ASSISTANT us El Rodríguez MD CHEMISTRY ORDERABLES Final Resul t Performing Organization Address City/[facility] Co de Phone Number [facility] [address] [place] [address] * EKG 12 LEAD (07/14/2022 12:58 PM SUPPLY ASSISTANT) Ventricular Rate 61 BPM EXTERNAL EKG Atrial Rate 61 BPM EXTERNAL EKG P-R Interval 172 ms EXTERNAL EKG QRS Duration 100 ms EXTERNAL EKG Q-T Duration 400 ms EXTERNAL EKG QTC CALCULATION 402 ms EXTERNAL EKG P [place] -13 degrees EXTERNAL EKG R [place] 36 degrees EXTERNAL EKG T [place] 30 degrees EXTERNAL EKG 07/14/2022 12:5 8 PM SUPPLY ASSISTANT Impressions EXTERNAL EKG - 07/15/2022 11:06 AM SUPPLY ASSISTANT Normal sinus rhythm Normal ECG No previous ECGs available Confirmed by Prabhjot Barbosa ([id number]) on 07/15/2022 11:06:05 AM Narrative Procedure Note Prabhjot Gallagher MD - 07/15/2022 IMPRESSION: Normal sinus rhythm Normal ECG No previous ECGs available Confirmed by Prabhjot Barbosa ([id number]) on 07/15/2022 11:06:05 AM us El Rodríguez MD IMG ECG ORDERABLES Final Result Performing Organization Address City/[facility]/ZIP Co de Phone Number EXTERNAL EKG documented in this encounter Visit Diagnoses Diagnosis Preop testing- Primary Preoperative examination, unspecified Preop testing Preoperative examination, unspecified Preop testing Preoperative examination, unspecified documented in this encounter Care Teams Research Neuropsychologist Relationship Specialty Start Date End Date Baldomero Dominguez MD [address] [address] PCP - General Family Medicine 03/20/20 documented as of this encounter
--- OUTSIDE RECORDS SUMMARY | 2024-07-11 12:23 | XMS_ITS | Continuity of Care Document ---
Author Organization [facility] Address [address] [place] [address] Phone Care Team Providers Care Photoengraving Proofer Apprentice Name Role Phone Torsten Katz MD Unavailable Unavailable Medications Medication Instructions Dosage Effective Dates (start - stop) Status Comments Ativan 2 mg tablet take 1 tablet by oral route 1 hr prior to procedure - No Longer Active Procedures Procedure Date Office consultation, [facility] X-ray exam both knees, standing 022 X-ray exam knee, 1 or 2 views 2 Independent Medical Examination ROXANE Advance Directives Directive Yes / No Effective Date File Name No Information Encounters Encounter Description Practice Location Reason(s) For Visit Diagnoses Date Provider Providers Copied on Encounter Office consultation, [facility], [facility], [id number], [place] tel:[phone] [facility] left knee (chief complaint) Unilateral primary osteoarthriti s, left kneePain in left knee 2 Sterling Sarmiento. [address] [place] [address], [address], [id number] , [place]. tel:[phone] Referring Provider: Torsten Kingsley, [address] [place] [address], [place], [address] . tel:[phone] [facility], [address] [place] [address], [id number], [place] tel:[phone] [facility] No Information 2 Sterling Torsten. [address] [facility], [address], [place], [place], [id number] , [place]. tel: [phone] Independent Medical Examination [facility], [address], [place], [place], [id number], [place] tel:[phone] [facility] left knee (chief complaint) Pain in left knee 2 Estefanijoey Sarmiento. [address] [facility], [address], [place], [place], [id number] , [place]. tel: [phone] Referring Provider: Torsten Kingsley, [facility] [address] [facility], [place], [address] . tel:[phone] Family History Family Member Type Diagnosis Age [...] Osteoarthritis Payers Payer name Insurance type Covered libertarian ID Enriqueta paulson(s) [facility] Workers Compensation Adm [id number] 2 Social History Type Description Quantity Date [...]
--- OUTSIDE RECORDS SUMMARY | 2024-07-11 12:24 | XMS_ITS | Encounter Summary ---
Author Organization [facility] Healthcare Address [address] [place] [address] Care Team Providers Care Applique Sewer Name Role Phone Baldomero Dominguez MD Primary Care Provider [phone] Lane Gonzalez MD Unavailable [phone] Pee Villasenor MD Unavailable [phone] Encounter Details Date Type Department Care Team (Late st Contact Info) Description 05/09/2024 Telephone [facility] Medical Group Pulmonology [address] [facility] [address] [place] [address] Sobia Bell, WELLNESS PROGRAM ADMINISTRATOR [address] 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
--- OUTSIDE RECORDS SUMMARY | 2024-07-11 12:24 | XMS_ITS | Encounter Summary ---
Author Organization [facility] Address [address] [place] [address] Care Team Providers Care Slurry Mixer Name Role Phone Baldomero Dominguez MD Primary Care Provider [phone] Reason for Visit * Reason Onset Date Comments Update 09/27/2023 Encounter Details Date Type Department Care Team (Late st Contact Info) Description 09/27/2023 Telephone [facility] Group - Rheumatology [address] [facility], [facility] [address] [place] [address] Alexx Bianchi DO [address] [facility] [address] [place] [address] Update Social History Tobacco Use [...] on: 09/27/2023 01:38 PM Modules accepted: Orders SERVICE ASSOCIATE * Telephone Encounter - Jenny Martinez RN - 09/27/2023 1:37 PM CST Patient contacted and informed of Dr. Bianchi's below response. All questions and concerns addressed,patient verbalized understanding and no further questions at this time. Patient would prefer to wait until follow-up to discuss alternative medications. Duloxetine discontinued per Dr. Bianchi and patient will stop the medication permanently. SERVICE ASSOCIATE * Telephone Encounter - Alexx Bianchi DO [...] considered and discussed at follow up appointment. SERVICE ASSOCIATE * Telephone Encounter - Jenny Martinez RN - 09/27/2023 11:27 AM CST Patient called the office to let Dr. Bianchi know that since she started the duloxetine she has been experiencing nausea and dizziness. Patient was advised to hold further low dose duloxetine until further recommendations received from Dr. Bianchi. Please advise. SERVICE ASSOCIATE documented in this encounter Plan of Treatment Not on file documented as of this encounter Visit Diagnoses Not on filedocumented in this encounter Care Teams Slurry Mixer Relationship Specialty Start Date End Date Baldomero Dominguez MD [address] [place] [address] PCP - General 12/29/19 documented as of this encounter
--- OUTSIDE RECORDS SUMMARY | 2024-07-11 12:24 | XMS_ITS | Encounter Summary ---
Author Organization [facility] Healthcare Address [address] [place] [address] Care Team Providers Care Instructional Materials Director Name Role Phone Baldomero Dominguez MD Primary Care Provider [phone] Lane Gonzalez MD Unavailable [phone] Pee Villasenor MD Unavailable [phone] Encounter Details Date Type Department Care Team (Late st Contact Info) Description 02/24/2024 Telephone [facility] Medical Group Pulmonology [address] [place] [address] [address] [place] [address] [place] [address] [place] [address] [address] [place] [address] Social History Tobacco Use Types Packs/Day Years [...] on file 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 Pt informed * Telephone Encounter - Rae Mary MA - 02/24/2024 11:02 AM CDT Pt called requesting order, sleep study, and referral be sent to [facility]. Pt stated theinformation is required to make the oral appliance. The fax number provided is [phone]. Pt is requesting a call once complete. The contact number is [phone]. documented in this encounter Plan of Treatment Not on file documented as of this encounter Visit Diagnoses Not on filedocumented in this encounter Care Teams Instructional Materials Director Relationship Specialty Start Date End Date Baldomero Dominguez MD PCP - General 01/07/17 Lane Gonzalez MD [address] [facility] [place] [address] Consulting Physician Interventional Cardiology 12/18/21 Pee Villasenor MD [address] [facility] [address] [place] [address] Consulting Physician Obstetrics and Gynecology 12/26/21 documented as of this encounter
--- OUTSIDE RECORDS SUMMARY | 2024-07-11 12:24 | XMS_ITS | Referral Summary ---
Author Organization [facility] Address [address] [facility] [place] [address] Care Team Providers Care Business Professor Name Role Phone Baldomero Dominguez MD Primary Care Provider Source Comments [facility],non-owned Affiliates and Associated Physician Practices is amultiple site organization consisting of ambulatory clinics and hospital sitesin [place], [place], [place] and [place]. This disclosure is being madepursuant to the Care Everywhere program and may not contain all information available regarding this patient. Last updated 18.[facility] Allergies Active Allergy Reactions Criticality [...] Comments Blood Pressure 112/70 09/02/2023 1:17 PM ACTUARIAL MATHEMATICIAN Pulse 81 09/02/2023 1:17 PM ACTUARIAL MATHEMATICIAN Temperature 36.7 ??C (98 ??F) 09/02/2023 1:17 PM ACTUARIAL MATHEMATICIAN Respiratory Rate 16 09/02/2023 1:17 PM ACTUARIAL MATHEMATICIAN Oxygen Saturation 100% 09/02/2023 1:17 PM ACTUARIAL MATHEMATICIAN Inhaled Oxygen Concentration - - Weight 103.9 kg (229 lb) 09/02/2023 1:17 PM ACTUARIAL MATHEMATICIAN Height 167.6 cm (5' 6 ) 09/02/2023 1:17 PM ACTUARIAL MATHEMATICIAN Body Mass Index 36.96 09/02/2023 1:17 PM ACTUARIAL MATHEMATICIAN Plan of Treatment Not on file Procedures Procedure Name Priority Date/Time Associated Diagnosis Comments MAMMOGRAM Routine 09/14/2019 from Last 3 Months or Most Recently Relevant to Health Maintenance Results * MAMMOGRAM (09/14/2019) Anatomical Region Laterality Modality Other Historical Provider MD SCANNING ONLY from Last 3 Months or Most Recently Relevant to Health Maintenance Care Teams Business Professor Relationship Specialty Start Date End Date Baldomero Dominguez MD [address] [facility] [address] [place] [address] PCP - General 12/29/19
--- OUTSIDE RECORDS SUMMARY | 2024-07-11 12:24 | XMS_ITS | Encounter Summary ---
Author Organization [facility] Address [address] [place] [address] Care Team Providers Care Medical Geneticist Name Role Phone Baldomero Dominguez MD Primary Care Provider [phone] Encounter Details Date Type Department Care Team (Late st Contact Info) Description 01/11/2020 Orders Only [facility] General Surgery [address] [place] [address] Paulina Butler RN Abnormal mammogram Social History [...] unspecified documented in this encounter Care Teams Medical Geneticist Relationship Specialty Start Date End Date Baldomero Dominguez MD [address] [facility] [address] [place] [address] PCP - General 12/29/19 documented as of this encounter
--- OUTSIDE RECORDS SUMMARY | 2024-07-11 12:24 | XMS_ITS ---
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 Treatments may have been administered in another system. Lifetime Dose Tracking * Chemical Lifetime Dose Automatic Entry Manual Entr y Fluoro Time 3.3 minutes 3.3 minutes 0 minutes
--- OUTSIDE RECORDS SUMMARY | 2024-07-11 12:24 | XMS_ITS | Patient Health Summary ---
Author Organization [facility] Address [address] [facility] [place] [address] Care Team Providers Care Leasing Machine Tender Name Role Phone Baldomero Dominguez MD Primary Care Provider [phone] Note from [facility],non-owned Affiliates and Associated Physician Practices is amultiple site organization consisting of ambulatory clinics and hospital sitesin [place], [place], [place] and [place]. This disclosure is being madepursuant to the Care Everywhere program and may not contain all information available regarding this patient. Last updated 18.[facility] Allergies * Cefaclor(Urticaria) -Medium Criticality Medications * [...] Comments Blood Pressure 112/70 09/02/2023 1:17 PM BIAS CUTTER HELPER Pulse 81 09/02/2023 1:17 PM BIAS CUTTER HELPER Temperature 36.7 ??C (98 ??F) 09/02/2023 1:17 PM BIAS CUTTER HELPER Respiratory Rate 16 09/02/2023 1:17 PM BIAS CUTTER HELPER Oxygen Saturation 100% 09/02/2023 1:17 PM BIAS CUTTER HELPER Inhaled Oxygen Concentration - - Weight 103.9 kg (229 lb) 09/02/2023 1:17 PM BIAS CUTTER HELPER Height 167.6 cm (5' 6 ) 09/02/2023 1:17 PM BIAS CUTTER HELPER Body Mass Index 36.96 09/02/2023 1:17 PM BIAS CUTTER HELPER Procedures * LAB(Performed 06/04/2023) * LAB(Performed 07/14/2022) * MAMMOGRAM(Performed 09/14/2019) * CULTURE AEROBIC(Performed 11/13/2014) Results * LAB (06/04/2023) Only the most recent of2 resultswithin the time period is included. Scanned Document SCANNING ONLY * MAMMOGRAM (09/14/2019) Anatomical Region Laterality Modality Other Historical Provider MD SCANNING ONLY * CULTURE AEROBIC (11/13/2014) Culture Aerobic SEE NOTE [facility] ([facility]) Comment: ??CULTURE, AEROBIC BACTERIA WITH GRAM STAIN ?MICRO NUMBER: ?[id number] ??TEST STATUS: ? FINAL ??SPECIMEN SOURCE: ?? RIGHT LEG ??SPECIMEN QUALITY: ??ADEQUATE ??GRAM STAIN: ?No organisms or white blood cells seen ??RESULT: ?Growth of skin jewel (note: Growth does not ? include S. aureus, beta-hemolytic Streptococci ? or P. aeruginosa). REPORT COMMENT: SPECIMEN TYPE->SKIN Test Performed at: [facility] ??[id number] JAMISON MENA MD Skin (tissue) specimen (specimen) 11/13/2014 11/14/2014 10:07 PM CDT Narrative [facility] ([facility]) - 11/17/2014 7:00 AM CDT Specimen Type->Skin [facility] - MICROBIOLOGY O RDERABLES [facility] ([facility]) Care Teams Leasing Machine Tender Relationship Specialty Start Date End Date Baldomero Dominguez MD [address] [place] [address] PCP - General 12/29/19
--- OUTSIDE RECORDS SUMMARY | 2024-07-11 12:24 | XMS_ITS | Encounter Summary ---
Author Organization [facility] Healthcare Address [address] [place] [address] Care Team Providers Care Gauntlet Pairer Name Role Phone Baldomero Dominguez MD Primary Care Provider [phone] Lane Gonzalez MD Unavailable [phone] Pee Villasenor MD Unavailable [phone] Reason for Visit * Reason Comments Follow-up 3 month Encounter Details Date Type Department Care Team (Late st Contact Info) Description 02/23/2024 3:15 PM CDT Office Visit [facility] Pulmonology [address] [facility] [address] [place] [address] Sobia Bell, CROWN ATTACHER [address] [place] [address] [address] [place] [address] TRACE (obstructive sleep apnea) (Primary Dx) Social [...] on file Legal Sex Female 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 We discussed products kgoa-rrg-ktdrgen for dry mouth. The patient states she [...] Anemia takes iron daily Arthritis Crohn's disease ([facility]) ([facility]) Heart disease Heart murmur Hypertension tx in past lost over 100lbs no medications at this time Joint pain Left knee injury states wears brace occurred at work seeing Dr for injections Morbid obesity ([facility]) Rheumatoid arthritis ([facility]) Sleep apnea does use cpap Supraventricular tachycardia by ECG ([facility]) patient states stopped own on [...] a day asneeded for muscle spasms multivit zqbecqdn-axfd-HZ-calcium (THERA-M) 9 mg iron-400 mcg tablet Take [...] 4 documented in this encounter Care Teams Gauntlet Pairer Relationship Specialty Start Date End Date Baldomero Dominguez MD PCP - General 01/07/17 Lane Gonzalez MD [address] [facility] [place] [address] Consulting Physician Interventional Cardiology 12/18/21 Pee Villasenor MD [address] [facility] [address] [place] [address] Consulting Physician Obstetrics and Gynecology 12/26/21 documented as of this encounter
--- OUTSIDE RECORDS SUMMARY | 2024-07-11 12:24 | XMS_ITS | Encounter Summary ---
Author Organization [facility] Healthcare Address [address] [place] [address] Care Team Providers Care Land Checker Name Role Phone Baldomero Dominguez MD Primary Care Provider [phone] Lane Gonzalez MD Unavailable [phone] Pee Villasenor MD Unavailable [phone] Encounter Details Date Type Department Care Team (Late st Contact Info) Description 03/17/2024 Telephone [facility] Medical Group Pulmonology [address] [place] [address] [place] [address] Cherise Rodas Social History Tobacco Use [...] on file Legal 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 Fax number [phone] documented in this encounter Plan of Treatment Not on file documented as of this encounter Visit Diagnoses Not on filedocumented in this encounter Care Teams Land Checker Relationship Specialty Start Date End Date Baldomero Dominguez MD PCP - General 01/07/17 Lane Gonzalez MD [facility] [address] [place] [address] Consulting Physician Interventional Cardiology 12/18/21 Pee Villasenor MD [address] [facility] [address] [place] [address] Consulting Physician Obstetrics and Gynecology 12/26/21 documented as of this encounter
--- OUTSIDE RECORDS SUMMARY | 2024-07-11 12:24 | XMS_ITS | Encounter Summary ---
Author Organization [facility] Healthcare Address [address] [place] [address] Care Team Providers Care Counsel Name Role Phone Baldomero Dominguez MD Primary Care Provider [phone] Lane Gonzalez MD Unavailable [phone] Pee Villasenor MD Unavailable [phone] Encounter Details Date Type Department Care Team (Late st Contact Info) Description 03/08/2024 Telephone [facility] Medical Group Pulmonology [address] [facility] [address] [place] [address] Sobia Bell, PACK PRESS OPERATOR [address] [facility] [address] [place] [address] Social History Tobacco Use Types Packs/Day Years [...] on file Legal Sex 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
--- OUTSIDE RECORDS SUMMARY | 2024-07-11 12:24 | XMS_ITS | Encounter Summary ---
Author Organization [facility] Healthcare Address [address] [place] [address] Care Team Providers Care Rock Star Name Role Phone Baldomero Dominguez MD Primary Care Provider Lane Gonzalez MD Unavailable [phone] Pee Villasenor MD Unavailable [phone] Encounter Details Date Type Department Care Team (Late st Contact Info) Description 02/24/2024 Telephone [facility] Pulmonary [address] [place] [address] Sobia Bell, BATCH PLANT OPERATOR [address] [facility] [address] [address] Social History Tobacco Use Types [...] on file Legal Sex Female 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
--- OUTSIDE RECORDS SUMMARY | 2024-07-11 12:24 | XMS_ITS | Clinical Summary ---
Author Organization [facility] Address [address] [place] [address] Care Team Providers Care Accounting Systems Analyst Name Role Phone Baldomero Dominguez MD Primary Care Provider [phone] Lane Gonzalez MD Unavailable [phone] Pee Villasenor MD Unavailable Allergies Active Allergy Reactions Criticality Noted Date Comments Cefaclor Hives Medium 12/24/2020 Medications multivit nppflfrx-rzji-J A-calcium (THERA-M) 9 mg iron-400 mcg tablet [...] operate a vehicle if tired. 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 in early 2021 - US on 10/02/21 showed EMS 1.7cm - [facility] D&C 12/26/21, path with figo grade 1 endometrioid adenocarcinoma in association with CAH (pathology reviewed at [facility]) - Last pap 05/21/22: NILM neg [...] (11/25/2021): Added automatically from request for surgery [id number] Morbid obesity due to excess calories 02/15/2020 Overview (02/15/2020): Added automatically from request for surgery [id number] Diastolic dysfunction 03/09/2019 Hyperlipidemia 12/06/2018 Left atrial dilatation 07/27/2018 Left ventricular hypertrophy 07/27/2018 Seasonal allergic rhinitis 07/27/2018 History of supraventricular tachycardia 07/27/19 19 Morbid obesity 01/07/2017 Crohn's disease (CMS/HCC) 01/07/2017 Paroxysmal supraventricular tachycardia 01/08/20 17 Arthralgia of hip 09/26/2015 Encounters Date Type Department Care Team Description 05/10/2024 10:15 AM CDT Office Visit [facility] Obstetrical Gynecology [address] [facility] [address] [place] [address] Pee Villasenor MD History of endometrial cancer (Primary Dx); Intertrigo 05/09/2024 Telephone [facility] Pulmonology [address] [facility] [address] [place] [address] Sobia eBll NP 04/13/2024 Telephone [facility] Pulmonology [address] [facility] [address] [place] [address] Lisa Patterson NP from Last 3 Months [...] disease Joint pain Supraventricular tachycardia by ECG ([facility]) patient states stopped own on [...] on file Legal Sex Female 1:19 PM STOCK CONTROL CLERK Gender Identity Not on file Sexual [...] BILATERAL W CARLOS Routine 05/30/2018 11:42 AM STOCK CONTROL CLERK OCCULT BLOOD, FECAL (FIT) Routine 06/23/2016 6:06 PM STOCK CONTROL CLERK from Last 3 Months or Most Recently Relevant to Health Maintenance Results * Pap and High Risk HPV and Genotyping (Cytology Component) (11/08/2023 11:28 AM CDT) Thin prep (Pap test) 11/08/2023 11:28 AM CDT 11/08/2023 4:23 PM CDT Narrative PATHOLOGY [facility] - 11/11/2023 2:07 PM CDT EPIC results best viewed via link to PDF [facility] [place] [address] Note to Patients: This report may contain [...] : ??1965 (Age: 58) Address: ??[address] [place] [place], [place] ??[address] Hospital #: ??[id number] Service: ??UNKNOWN Location: ?? Patient Type: ??[facility] SPECIMEN Taken: ??11/08/2023 Received: [...] performed using the arturo HPV assay ([employer] This test has been modified from the lamp developer's instructions. Its performance characteristics were determined by [facility] in a manner consistent with CLIA requirements. This test has not been cleared or approved by the U.S. Food and Drug Administration. Test Performed by: [address] [address] Telephone Triage Nurse: Pee Maria M.D. Ph.D.; CLIA# [id number] [facility]/11/11/2023 14:07 MISSY Cheung (ASCP) Report Electronically Reviewed [...] clinical information and biopsy results as indicated. [facility] Clinical Laboratory Improvement Amendments (CLIA) mandate that cytologic and histologic results be correlated for laboratory director quality assurance & improvement standards. ??FOR ALL HIGH-GRADE CASES [...] determined by the Surgical Pathology Department at [facility] as part of an ongoing manufacturing quality inspector program and in compliance with federally mandated [...] determined by the Surgical Pathology Department of [facility]. ??It has not been cleared or approved by the U. S. Food and Drug Administration. Pee Villasenor MD LAB CYTOLOGY ORDERABLES Final Result PATHOLOGY [facility] * Hepatitis C antibody (05/14/2020 8:25 AM CDT) Hep C Ab NONREACT NONREACTIVE [facility] Comment: [employer] using JACKELYN (chemiluminescent immunoassay) technology. NONREACTIVE: Antibodies [...] OR DERABLES Final Result Performing Organization Address City/[facility]/ZIP Co de Phone Number [facility] [address] [place] [address], [facility] [phone] * Screening Mammogram Bilateral W Carlos (05/30/2018 11:42 AM STOCK CONTROL CLERK) Anatomical Region Laterality Modality Breast Bilateral Mammography 05/30/2018 11:4 2 AM STOCK CONTROL CLERK Impressions 05/30/2018 1:36 PM STOCK CONTROL CLERK BI-RAD 2 ??BENIGN There is no mammographic evidence of malignancy. A 1 year screening mammogram is recommended. ?? The patient has been or will be contacted. ?? The patient will be entered into a reminder system with a target due date of 1 year for her next screening exam. Electronically signed by: Hernán Townsend M.D., md/:05/30/2018 13:34:56 ?? Heel Scorer: Lorie Erickson, [facility] letter sent: Normal Exam ?? Reading location: [facility] BI-RADS: 2 Benign [EOD] Narrative 05/30/2018 1:36 PM STOCK CONTROL CLERK - MG BILATERAL DIGITAL SCREENING MAMMOGRAM [...] dated: ??08/18/2013 mammogram/ultrasound and 08/11/2013 mammogram - [facility]. ?? BREAST TISSUE: The tissue of [...] exams dated: 08/18/2013mammogram/ultrasound and 08/11/2013 mammogram - [facility]. BREAST TISSUE: The tissue of [...] signed by: Hernán Townsend M.D., md/:05/30/2018 13:34:56 Heel Scorer: Lorie Erickson, [facility] letter sent: Normal Exam Reading location: [facility] BI-RADS: 2 Benign [EOD] us Baldomero Dominguez MD IMG MAMMO PROCEDURES Final Resul t * Occult blood, fecal non neoplasm screening (06/23/2016 6:06 PM STOCK CONTROL CLERK) Stool Occult Blood NEGATIVE NEGATIVE 06/25/2016 3:33 PM STOCK CONTROL CLERK [facility] HISTORICAL RESULTS 06/23/2016 6:06 PM STOCK CONTROL CLERK 06/25/2016 2:52 PM STOCK CONTROL CLERK us Baldomero Dominguez MD LAB BODY FLUIDS AND STOOLS ORDER NICOLE Final Result [facility] [email or web address] HISTORICAL RESULTS from Last 3 Months or Most Recently Relevant to Health Maintenance Insurance [facility] Advance Directives For more information, please contact: [phone] * Full Code (Latest Code Status on File) Date Activated Date Inactivated Comments 07/16/2020 12:50 PM 07/17/2020 9:37 PM Care Teams Accounting Systems Analyst Relationship Specialty Start Date End Date Baldomero Dominguez MD PCP - General 01/07/17 Lane Gonzalez MD [address] [facility] [address] [place] [address] Consulting Physician Interventional Cardiology 12/18/21 Pee Villasenor MD [address] [facility] [address] [place] [address] Consulting Physician Obstetrics and Gynecology 12/26/21
--- OUTSIDE RECORDS SUMMARY | 2024-07-11 12:24 | XMS_ITS | Encounter Summary ---
Author Organization [facility] Address [address] [place] [address] Care Team Providers Care Filter Press Supervisor Name Role Phone Baldomero Dominguez MD Primary Care Provider [phone] Reason for Visit * Reason Onset Date Comments Medication Problem 09/21/2023 Encounter Details Date Type Department Care Team (Late st Contact Info) Description 09/21/2023 Telephone [facility] Medical [facility] - Rheumatology [address] [facility], [facility] [address] [place] [address] Alexx Bianchi DO [address] [facility] [address] [place] [address] Medication Problem Social History Tobacco [...] has not been able to be determined. RTISING TRAFFIC MANAGER * Telephone Encounter - Sameer Lazar - [...] submitted to Dr. Bianchi. Pt confirmed that [phone] is the best number to reach them back at and that the best pharmacy for them is the [id number] - [phone] [facility] [phone] [facility] [phone] [facility] [phone] . RTISING TRAFFIC MANAGER documented in this encounter Plan of Treatment Not on file documented as of this encounter Visit Diagnoses Not on filedocumented in this encounter Care Teams Filter Press Supervisor Relationship Specialty Start Date End Date Baldomero Dominguez MD [address] [place] [address] [address] [place] [address] PCP - General 12/29/19 documented as of this encounter
--- OUTSIDE RECORDS SUMMARY | 2024-07-11 12:24 | XMS_ITS | Encounter Summary ---
Author Organization [facility] Healthcare Address [address] [place] [address] Care Team Providers Care Hogshead Packer Name Role Phone Baldomero Dominguez MD Primary Care Provider [phone] Lane Gonzalez MD Unavailable Pee Villasenor MD Unavailable [phone] Encounter Details Date Type Department Care Team (Late st Contact Info) Description 02/24/2024 Telephone [facility] Medical Group Pulmonology [address] [facility] [address] [place] [address] Sobia Bell, FISH FROG OR OYSTER FARMER [address] [facility] [address] [place] [address] Social History Tobacco Use Types Packs/Day Years [...] on file Legal Sex Female 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
--- OUTSIDE RECORDS SUMMARY | 2024-07-11 12:24 | XMS_ITS | Encounter Summary ---
Author Organization [facility] Healthcare Address [address] [place] [address] Care Team Providers Care Insurance Clerk Name Role Phone Baldomero Dominguez MD Primary Care Provider [phone] Lane Gonzalez MD Unavailable [phone] Pee Villasenor MD Unavailable [phone] Reason for Visit * Reason Comments Follow-up 6 mos follow up: tamiko veillance phx of Endo cancer Encounter Details Date Type Department Care Team (Late st Contact Info) Description 05/10/2024 10:15 AM CDT Office Visit [facility] Medical Group Obstetrical Gynecology [address] [facility] [address] [place] [address] Pee Villasenor MD [address] [place] [address] [address] [place] [address] History of endometrial cancer (Primary Dx); Intertrigo [...] on file Legal Sex Female 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 Exam conducted with a area development consultant present. Constitutional: Appearance: Normal appearance. HENT: Head: [...] then Q yearly. She will contact her stemhole borer and topper for evaluation of her rectal spotting. History of Crohn's disease. Intertrigo (L30.4) - nystatin-triamcinolone cream; Apply to affected area twice a day for 7-14 days, then as needed for rash. *This note is dictated using Opentopic voice recognition software, variances in spelling and vocabulary are possible and unintentional* documented in this encounter Plan of Treatment Not on file documented as of this encounter Visit Diagnoses Diagnosis History of endometrial cancer- Primary Intertrigo Other specified erythematous condition documented in this encounter Care Teams Insurance Clerk Relationship Specialty Start Date End Date Baldomero Dominguez MD PCP - General 01/07/17 Lane Gonzalez MD [address] [facility] [address] [place] [address] Consulting Physician Interventional Cardiology 12/18/21 Pee Villasenor MD [address] [facility] [address] [place] [address] Consulting Physician Obstetrics and Gynecology 12/26/21 documented as of this encounter
--- OUTSIDE RECORDS SUMMARY | 2024-07-11 12:24 | XMS_ITS | Referral Summary ---
Author Organization [facility] Address [address] [place] [address] Care Team Providers Care Corporate Responsibility Officer Name Role Phone Baldomero Dominguez MD Primary Care Provider [phone] Lane Gonzalez MD Unavailable [phone] Pee Villasenor MD Unavailable [phone] Encounters Date Type Department Care Team Description 05/10/2024 10:15 AM CDT Office Visit [facility] Medical Group Obstetrical Gynecology [address] [place] [address] Pee Villasenor MD History of endometrial cancer (Primary Dx); Intertrigo 05/09/2024 Telephone [facility] Pulmonology [facility] [place] [address] Sobia Bell NP 04/13/2024 Telephone [facility] Pulmonology [address] [place] [address] Lisa Patterson NP from Last 3 Months Allergies Active Allergy Reactions Criticality Noted Date Comments Cefaclor Hives Medium 12/24/2020 Medications multivit aafagbqg-huyt-R A-calcium (THERA-M) 9 mg iron-400 mcg tablet [...] operate a vehicle if tired. Endometrial cancer ([facility]/H[facility]) 11/09/2022 Overview (11/11/2022): - Initially presented to primary SPANNER OPERATOR w/ AUB in early 2021 - US on 10/02/21 showed EMS 1.7cm - [facility] [place] D&C 12/26/21, path with figo grade 1 endometrioid adenocarcinoma in association with CAH (pathology reviewed at [facility]) - Last pap 05/21/22: NILM neg [...] (11/25/2021): Added automatically from request for surgery [id number] Morbid obesity due to excess calories 02/15/2020 Overview (02/15/2020): Added automatically from request for surgery [id number] Diastolic dysfunction 03/09/2019 Hyperlipidemia 12/06/2018 Left atrial dilatation 07/27/2018 Left ventricular hypertrophy 07/27/2018 Seasonal allergic rhinitis 07/27/2018 History of supraventricular tachycardia 07/27/19 19 Morbid obesity 01/07/2017 Crohn's disease ([facility]) 01/07/2017 Paroxysmal supraventricular tachycardia 01/08/20 17 Arthralgia [...] on file Legal Sex Female 1:19 PM MIDDLE SCHOOL TUTOR Gender Identity Not on file Sexual Orientation [...] BILATERAL W CARLOS Routine 05/30/2018 11:42 AM MIDDLE SCHOOL TUTOR OCCULT BLOOD, FECAL (FIT) Routine 06/23/2016 6:06 PM MIDDLE SCHOOL TUTOR from Last 3 Months or Most Recently Relevant to Health Maintenance Results * Pap and High Risk HPV and Genotyping (Cytology Component) (11/08/2023 11:28 AM CDT) Thin prep (Pap test) 11/08/2023 11:28 AM CDT 11/08/2023 4:23 PM CDT Narrative PATHOLOGY [facility] - 11/11/2023 2:07 PM CDT EPIC results best viewed via link to PDF [facility] [place] [address] Note to Patients: This report may contain [...] ??F : ??[id number] (Age: 58) Address: ??[address] [place], [place] ??[address] Hospital #: ??[id number] Service: ??UNKNOWN Location: ?? Patient Type: ??[facility] SPECIMEN Taken: ??11/08/2023 Received: ??11/08/2023 Accessioned: [...] performed using the arturo HPV assay ([employer] This test has been modified from the trial examiner's instructions. Its performance characteristics were determined by [facility] in a manner consistent with CLIA requirements. This test has not been cleared or approved by the U.S. Food and Drug Administration. Test Performed by: [address] [address] Email Campaign Specialist: Pee Maria M.D. Ph.D.; CLIA# [id number] [facility]/11/11/2023 14:07 MISSY Cheung (ASCP) Report Electronically Reviewed [...] clinical information and biopsy results as indicated. [facility] Clinical Laboratory Improvement Amendments (CLIA) mandate that cytologic and histologic results be correlated for laboratory chief quality officer & improvement standards. ??FOR ALL HIGH-GRADE CASES [...] the Surgical Pathology Department at [facility] as part of an ongoing advanced quality engineer program and in compliance with [...] the Surgical Pathology Department of [facility]. ??It has not been cleared or approved by the U. S. Food and Drug Administration. Pee Villasenor MD LAB CYTOLOGY ORDERABLES Final Result PATHOLOGY [facility] * Hepatitis C antibody (05/14/2020 8:25 AM CDT) Hep C Ab NONREACT NONREACTIVE [facility] Comment: Siemens CentaurXP using JACKELYN (chemiluminescent immunoassay) [...] MICROBIOLOGY - GENERAL OR DERABLES Final Result [address] [phone] * Screening Mammogram Bilateral W Carlos (05/30/2018 11:42 AM MIDDLE SCHOOL TUTOR) Anatomical Region Laterality Modality Breast Bilateral Mammography 05/30/2018 11:4 2 AM MIDDLE SCHOOL TUTOR Impressions 05/30/2018 1:36 PM MIDDLE SCHOOL TUTOR BI-RAD 2 ??BENIGN There is no mammographic evidence of malignancy. A 1 year screening mammogram is recommended. ?? The patient has been or will be contacted. ?? The patient will be entered into a reminder system with a target due date of 1 year for her next screening exam. Electronically signed by: Hernán Towsnend M.D., md/:05/30/2018 13:34:56 ?? Activity Therapy Specialist: Lorie Erickson, [facility] letter sent: Normal Exam ?? Reading location: [facility] BI-RADS: 2 Benign [EOD] Narrative 05/30/2018 1:36 PM MIDDLE SCHOOL TUTOR - MG BILATERAL DIGITAL SCREENING MAMMOGRAM 3D/2D [...] dated: ??08/18/2013 mammogram/ultrasound and 08/11/2013 mammogram - [facility]. ?? BREAST TISSUE: The tissue of [...] exams dated: 08/18/2013mammogram/ultrasound and 08/11/2013 mammogram - [facility]. BREAST TISSUE: The tissue of both breasts [...] signed by: Hernán Townsend M.D., md/:05/30/2018 13:34:56 Activity Therapy Specialist: Lorie Erickson, [facility] letter sent: Normal Exam Reading location: [facility] BI-RADS: 2 Benign [EOD] us Baldomero Dominguez MD IMG MAMMO PROCEDURES Final Resul t * Occult blood, fecal non neoplasm screening (06/23/2016 6:06 PM MIDDLE SCHOOL TUTOR) Stool Occult Blood NEGATIVE NEGATIVE 06/25/2016 3:33 PM MIDDLE SCHOOL TUTOR [facility] [employer] HISTORICAL RESULTS 06/23/2016 6:06 PM MIDDLE SCHOOL TUTOR 06/25/2016 2:52 PM MIDDLE SCHOOL TUTOR us Baldomero Dominguez MD LAB BODY FLUIDS AND STOOLS ORDER NICOLE Final Result [facility] [employer] HISTORICAL RESULTS from Last 3 Months or Most Recently Relevant to Health Maintenance Insurance [facility] Member Subscriber Plan / Payer (Ef fective 2021-Present) Name:Rowena Quesada Relation to Subscriber:Self Name:Rowena Quesada Payer ID:[id number] (NAIC) Group ID:Not on file Type:MEDICAID RISK OTHER Address: ATTN: CLAIMS DEPT [address] [facility] [place] [id number] [facility] Member Subscriber Plan / Payer (Ef fective 2021-Present) Name:Dipak Rowena Michelle Relation to Subscriber:Self Name:Rowena Quesada Payer ID:[id number] (NAIC) Group ID:Not on file Type:MEDICAID RISK OTHER Address: ATTN: CLAIMS DEPT [address] [facility] [place] [id number] [facility] A [facility] Advance Directives For more information, please contact: [phone] * Full Code (Latest Code Status on File) Date Activated Date Inactivated Comments 07/16/2020 12:50 PM 07/17/2020 9:37 PM Care Teams Corporate Responsibility Officer Relationship Specialty Start Date End Date Baldomero Dominguez MD PCP - General 01/07/17 Lane Gonzalez MD [address] [place] [address] [place] [address] Consulting Physician Interventional Cardiology 12/18/21 Pee Villasenor MD [address] [facility] [address] [address] Consulting Physician Obstetrics and Gynecology 12/26/21
--- OUTSIDE RECORDS SUMMARY | 2024-07-11 12:24 | XMS_ITS | Encounter Summary ---
Author Organization [facility] Address [address] [address] Care Team Providers Care Meat Team Lead Name Role Phone Baldomero Dominguez MD Primary Care Provider [phone] Reason for Visit * Reason Onset Date Comments Referral 07/22/2022 Encounter Details Date Type Department Care Team (Late st Contact Info) Description 07/22/[address] [facility] Medical [facility] - Rheumatology [address] [facility], [facility] [address] [place] [address] [place] [address] [place] [address] [address] [place] [address] Referral Social History Tobacco Use Types Packs/Day Years Used Date Smoking Tobacco: Never Assessed Sex and Gender Information Value Date Recorded Sex Assigned at Not on file Gender Identity Not on file Sexual Orientation Not on file documented as of this encounter Miscellaneous Notes * Telephone Encounter - Amaris Ontiveros LPN - 07/24/2022 12:09 PM LAW EXAMINER Called patient as a referral to [facility] Rheum by Dr Dominguez for +RF and polyarthralgia. LVM asking for a callback to schedule AUTOMATIC SPREADER OPERATOR appt. Call # [phone], no further calls will be made but if patuient calls back , may schedule with either provider. EXAMINER * Telephone Encounter - Amaris Ontiveros LPN - 07/23/2022 8:11 AM LAW EXAMINER Called patient as a referral to [facility] Rheumatology from Dr Dominguez for +RF and polyarthralgia. No answer at either number, LVM asking for a callback. Call #2. EXAMINER * Telephone Encounter - Phil Martinez RN - 07/22/2022 3:16 PM CST Received a faxed referral from Dr. Dominguez requesting patient be evaluated by rheumatology for +RF and polyarthralgia. Patient called, no answer, LMOR for patient to contact the office back in order toschedule a AUTOMATIC SPREADER OPERATOR appointment with either Dr. Bianchi or Dr. Bol[facility]. Called referral x1. EXAMINER documented in this encounter Plan of Treatment Not on file documented as of this encounter Visit Diagnoses Not on filedocumented in this encounter Care Teams Meat Team Lead Relationship Specialty Start Date End Date Baldomero Dominguez MD [address] [place] [address] PCP - General 12/29/19 documented as of this encounter
--- OUTSIDE RECORDS SUMMARY | 2024-07-11 12:24 | XMS_ITS | Encounter Summary ---
Author Organization [facility] Healthcare Address [address] [place] [address] Care Team Providers Care Dry Cleaner Helper Name Role Phone Baldomero Dominguez MD Primary Care Provider [phone] Lane Gonzalez MD Unavailable [phone] Pee Villasenor MD Unavailable [phone] Encounter Details Date Type Department Care Team (Late st Contact Info) Description 03/09/2024 Telephone [facility] Medical Group Pulmonary [address] [place] [address] Sobia Bell, BEAUTY OPERATOR [address] [facility] [address] [address] Social History Tobacco Use Types [...] file Legal Sex Female 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
--- OUTSIDE RECORDS SUMMARY | 2024-07-11 12:24 | XMS_ITS | Encounter Summary ---
Author Organization [facility] Address [address] [place] [address] Care Team Providers Care Robotic Toy Inventor Name Role Phone Baldomero Dominguez MD Primary Care Provider [phone] Reason for Visit * Reason Comments Follow-up Has sinus infection Encounter Details Date Type Department Care Team (Late st Contact Info) Description 10/20/2023 3:00 PM CDT Video Visit [facility] Medical [facility] - Rheumatology [address], [address] [place] [address] Alexx Bianchi DO [address] [place] [address] Fibromyalgia syndrome ; Primary osteoarthritis [...] ? Referring and/or communicating with other health career representative Time: 0 minutes ? Documenting clinical information in the electronic health record Time: 2 minutes ? Care coordination as needed Time: 0 minutes 10/20/2023 REFERRING PHYSICIAN/PROVIDER: Baldomero Dominguez MD [address] [place] [address] INDICATION FOR RHEUMATOLOGIC FOLLOW-UP CARE: Chief Complaint Patient presents with ??? 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 She has had previous bariatric surgery but more recently following a good weight loss has noted about a 30 lb increase in her weight. Outside records review: Records received by fax and reviewed from the referring office of Baldomero Dominguez MD [facility] include chart notes and laboratory testing results. [...] , BASOABS , IMMGRANSABS in the last 23240 hours. No results for input(s): SODIUM , POTASSIUM , CHLORIDE , CO2 , BUN , CREATININE , GLUCOSE , CALCIUM , ALBUMIN , ALKPHOS , ALT , AST , TBIL , TPROT , EGFR in the last 11278 hours. No results for input(s): CRP in the last 12637 hours. No results for input(s): SEDRATE in the last 08236 hours. No results for input(s): RAQNT in the last 80929 hours. No results for input(s): CCPIGG in the last 54677 hours. No results for input(s): RACHELLE , ANATITER in the last 27032 hours. No results for input(s): DNAABDS in the last 34692 hours. No results for input(s): C3 in the last 99961 hours., No results for input(s): C4 in the last 53879 hours. No results for input(s): SMAB , SMRNPAB , SSAAB , SSBAB , [id number] in the last 43399 hours. No results for input(s): CK in the last 99760 hours. No results for input(s): COLORUA , CLARITYUA , SPECGRAVUA , PHUA , PROTEINUA , BLOODUA , LEUKOCYTEUA , NITRITEUA , GLUCOSEUA , KETONEUA , BILIRUBINUA , UROBILINUA , REDSUBUA , WBCUAAUTO , RBCUAAUTO , EPITHUAAUTO , BACTUAAUTO , YEASTUAAUTO , SPERMUAAUTO , CASTUAAUTO , CRYSUAAUTO , MUCUSUAAUTO in the last 23777 hours. No results for input(s): [id number] in the last 38877 hours. IMAGING: No image results found. ASSESSMENT/PLAN: [...] that you may require. Alexx Bianchi D.O., [facility] Medical group Division of Rheumatology at [facility] The total time spent today in the visit with the patient for this initial encounter, including performing chart preparation, review of available data, and documentation, patient education, not related to any procedure or preventative visit services was 17 minutes. Portions of the record was created with voice recognition software.Variances in freelance writer may occur Alexx Bianchi DO 10/20/2023 3:31 PM documented in this encounter Plan of Treatment Not on file documented as of this encounter Visit Diagnoses Diagnosis Fibromyalgia syndrome- Primary Mylagia and myositis, unspecified Primary osteoarthritis involving multiple joints (lumbar spine and bilateral knees) documented in this encounter Care Teams Robotic Toy Inventor Relationship Specialty Start Date End Date Baldomero Dominguez MD [address] [place] [address] PCP - General 12/29/19 documented as of this encounter
--- OUTSIDE RECORDS SUMMARY | 2024-07-11 12:24 | XMS_ITS | Encounter Summary ---
Author Organization [facility] Health Address [address] [facility] [place] [address] Care Team Providers Care Loin Puller Name Role Phone Baldomero Dominguez MD Primary Care Provider [phone] Encounter Details Date Type Department Care Team [...] on filedocumented in this encounter Care Teams Loin Puller Relationship Specialty Start Date End Date Baldomero Dominguez MD [address] [facility] [address] [place] [address] PCP - General 12/29/19 documented as of this encounter
--- OUTSIDE RECORDS SUMMARY | 2024-07-11 12:24 | XMS_ITS | Encounter Summary ---
Author Organization [facility] Address [address] [place] [address] Care Team Providers Care Field Training Manager Name Role Phone Baldomero Dominguez MD Primary Care Provider [phone] Reason for Visit * Reason Comments Establish Care Elevated RF, joint p ain Encounter Details Date Type Department Care Team (Late st Contact Info) Description 09/02/2023 1:20 PM BACTERIOLOGIST FISHERY Office Visit [facility] - Rheumatology [address], [address] [place] [address] Alexx Bianchi DO [address] [place] [address] Fibromyalgia syndrome (Primary Dx); Primary [...] Comments Blood Pressure 112/70 09/02/2023 1:17 PM BACTERIOLOGIST FISHERY Pulse 81 09/02/2023 1:17 PM BACTERIOLOGIST FISHERY Temperature 36.7 ??C (98 ??F) 09/02/2023 1:17 PM BACTERIOLOGIST FISHERY Respiratory Rate 16 09/02/2023 1:17 PM BACTERIOLOGIST FISHERY Oxygen Saturation 100% 09/02/2023 1:17 PM BACTERIOLOGIST FISHERY Inhaled Oxygen Concentration - - Weight 103.9 kg (229 lb) 09/02/2023 1:17 PM BACTERIOLOGIST FISHERY Height 167.6 cm (5' 6 ) 09/02/2023 1:17 PM BACTERIOLOGIST FISHERY Body Mass Index 36.96 09/02/2023 1:17 PM BACTERIOLOGIST FISHERY documented in this encounter Patient Instructions * Patient Instructions* Alexx Bianchi DO - 09/02/2023 1:58 PM BACTERIOLOGIST FISHERY ICD-10-CM 1. Fibromyalgia syndrome Active M79.7 2. [...] the specific diagnosis of rheumatoid arthritis by [employer] classification criteria nor seems [...] should be considered in clinically indicated cases. ERIOLOGIST FISHERY documented in this encounter Progress Notes * Alexx Bianchi DO - 09/02/2023 1:31 PM CST RHEUMATOLOGY INITIAL OFFICE ENCOUNTER NOTE 09/02/2023 REFERRING PHYSICIAN/PROVIDER: Baldomero Dominguez MD [address] [place] [address] REASON FOR CONSULT: Chief Complaint Patient presents with ??? Establish Care Elevated RF, joint pain HISTORY OF PRESENTING ILLNESS: Rowena Quesada is a 58 year old female who was referred to [facility] Rheumatology for evaluation of a [...] the referring office of Baldomero Dominguez MD [facility] include chart notes and laboratory testing results. REVIEW OF SYSTEMS: ROS See pertinent positive and/or negative in HPI PAST MEDICAL HISTORY: Past Medical History: Diagnosis Date ??? Arthritis ??? Asthma ??? Hypertension ??? Irritable bowel syndrome ??? Morbid obesity ([facility]) PAST SURGICAL HISTORY: Past Surgical History: [...] , BASOABS , IMMGRANSABS in the last 12083 hours. No results for input(s): SODIUM , POTASSIUM , CHLORIDE , CO2 , BUN , CREATININE , GLUCOSE , CALCIUM , ALBUMIN , ALKPHOS , ALT , AST , TBIL , TPROT , EGFR in the last 35317 hours. No results for input(s): CRP in the last 02776 hours. No results for input(s): SEDRATE in the last 04432 hours. No results for input(s): RAQNT in the last 47599 hours. No results for input(s): CCPIGG in the last 61318 hours. No results for input(s): RACHELLE , ANATITER in the last 19730 hours. No results for input(s): DNAABDS in the last 55797 hours. No results for input(s): C3 in the last 00322 hours., No results for input(s): C4 in the last 58916 hours. No results for input(s): SMAB , SMRNPAB , SSAAB , SSBAB , RIO38MT in the last 51800 hours. No results for input(s): CK in the last 23494 hours. No results for input(s): COLORUA , CLARITYUA , SPECGRAVUA , PHUA , PROTEINUA , BLOODUA , LEUKOCYTEUA , NITRITEUA , GLUCOSEUA , KETONEUA , BILIRUBINUA , UROBILINUA , REDSUBUA , WBCUAAUTO , RBCUAAUTO , EPITHUAAUTO , BACTUAAUTO , YEASTUAAUTO , SPERMUAAUTO , CASTUAAUTO , CRYSUAAUTO , MUCUSUAAUTO in the last 13291 hours. No results for input(s): [id number] in the last 19550 hours. IMAGING: No image results found. ASSESSMENT/PLAN: [...] the specific diagnosis of rheumatoid arthritis by [employer] classification criteria nor seems [...] you may require. Alexx Bianchi D.O., [facility] Medical group Division of Rheumatology at [facility] The total time spent today in the visit with the patient for this initial encounter, including performing chart preparation, review of available data, and documentation, patient education, not related to any procedure or preventative visit services was 45 minutes. Portions of the record was created with voice recognition software.Variances in category analyst may occur Alexx Bianchi DO 09/02/2023 2:06 PM ERIOLOGIST FISHERY documented in this encounter Plan of Treatment [...] findings documented in this encounter Care Teams Field Training Manager Relationship Specialty Start Date End Date Baldomero Dominguez MD [address] [facility] [address] [place] [address] PCP - General 12/29/19 documented as of this encounter
--- OUTSIDE RECORDS SUMMARY | 2024-07-11 12:24 | XMS_ITS | Encounter Summary ---
Author Organization [facility] Healthcare Address [address] [place] [address] Care Team Providers Care Sales Assistant Displays Name Role Phone Baldomero Dominguez MD Primary Care Provider [phone] Lane Gonzalez MD Unavailable [phone] Pee Villasenor MD Unavailable [phone] Encounter Details Date Type Department Care Team (Late st Contact Info) Description 04/13/2024 Telephone [facility] Medical Group Pulmonology [address] [facility] [address] [place] [address] Lisa Patterson, VELVET STEAMER [address] [facility] [address] [place] [address] Social History Tobacco Use Types Packs/Day Years [...] file Legal Sex Female 1:19 PM BARREL POLISHER INSIDE Gender Identity Not on file Sexual Orientation [...] on filedocumented in this encounter Care Teams Sales Assistant Displays Relationship Specialty Start Date End Date Baldomero Dominguez MD PCP - General 01/07/17 Lane Gonzalez MD [address] [facility] [address] [place] [address] Consulting Physician Interventional Cardiology 12/18/21 Pee Villasenor MD [address] [facility] [address] [place] [address] Consulting Physician Obstetrics and Gynecology 12/26/21 documented as of this encounter
--- OUTSIDE RECORDS SUMMARY | 2024-07-11 12:24 | XMS_ITS | Encounter Summary ---
Author Organization [facility] Healthcare Address [address] [place] [address] Care Team Providers Care Floor Care Technician Name Role Phone Baldomero Dominguez MD Primary Care Provider [phone] Lane Gonzalez MD Unavailable [phone] Pee Villasenor MD Unavailable [phone] Reason for Visit * Reason Onset Date Comments Sleep Study Results/CPAP order 02/03/2024 Encounter Details Date Type Department Care Team (Late st Contact Info) Description 02/03/2024 Telephone [facility] Sleep Lab [address] [place] [address] Olya Doe, [facility] Sleep Study Results/CPAP order Social History Tobacco [...] on file Legal Sex Female 1:19 PM RADIOLOGY PHYSICIAN Gender Identity Not on file Sexual Orientation Not on file documented as of this encounter Miscellaneous Notes * Telephone Encounter - Olya Doe, SHAYLA - 02/03/2024 2:49 PM CDT Spoke with pt to go over sleep study results. AHI- 29.1, Lowest O2 sat- 88%0.4 min overall with O2 sat less than 90%. Dr. Smart wrote order for Auto CPAP 5- 50stx8h. Pt did not want the order sent [...] on filedocumented in this encounter Care Teams Floor Care Technician Relationship Specialty Start Date End Date Baldomero Dominguez MD PCP - General 01/07/17 Lane Gonzalez MD [address] [place] [address] [place] [address] Consulting Physician Interventional Cardiology 12/18/21 Pee Villasenor MD [address] [place] [address] [place] [address] Consulting Physician Obstetrics and Gynecology 12/26/21 documented as of this encounter
--- OUTSIDE RECORDS SUMMARY | 2024-07-11 12:25 | XMS_ITS | Encounter Summary ---
Author Organization [facility] Healthcare Address [address] [place] [address] Care Team Providers Care Ladle Operator Name Role Phone Baldomero Dominguez MD Primary Care Provider [phone] Lane Gonzalez MD Unavailable [phone] Pee Villasenor MD Unavailable Reason for Visit * Auth/Cert (Routine) Specialty Diagnoses / Procedures Referred By Vianca t Referred To Contact Diagnoses Endometrial cancer (CMS/HCC) (HCC) Endometrial cancer (CMS/HCC) (HCC) [C54.1] Procedures IN LAPS TOTAL HYSTERECT 250 GM/< W/RMVL TUBE/OVARY IN INTRAOP SENTINEL LYMPH NODE ID W/DYE INJECTION IN LAPS SURG BILATERAL TOTAL PELVIC LMPHADECTOMY XI HYSTERECTOMY - LAPAROSCOPIC ROBOTIC ASSISTED XI SALPINGO/OOPHORECTOMY - LAPAROSCOPIC ROBOTIC ASSISTED XI ROBOTIC SENTINEL LYMPH NODE BX EXPLORATORY LAPAROTOMY CYSTOSCOPY Referral ID Status Reason Start Date Expiration Date Visits Re quested Visits Authorized [id number] 1 1 Encounter Details Date Type Department Care Team (Late st Contact Info) Description 12/07/2022 10:55 AM CDT - 12/07/2022 2:55 PM CDT Surgery [facility] Operating Room [address] [place] [address] Shauna Soares MD [address] [id number] [place] [address] XI HYSTERECTOMY - LAPAROSCOPIC ROBOTIC ASSISTED, oversew [...] on file Legal Sex Female 1:19 PM PSYCHOLOGY LECTURER Gender Identity Not on file Sexual Orientation [...] to a Drug Takeback location near you (https://health.[place].gov/safety/bndd/swhanagtjt-aichpnfu-umgv.php), flush the pills down the toilet, or throw the pills away with your household trash separate from the pill bottle. Follow Up: * It is important to keep your scheduled follow up appointment with your MD. * If you cannot keep your scheduled appointment, please call the office. documented in this encounter Medications at Time of Discharge multivit aigmjwqd-vtgk-ZR -calcium (THERA-M) 9 mg iron-400 mcg tablet [...] y.o. who initially presented to her primary MARKETING ASSOCIATE with AUB and underwent hysteroscopy w/ D&C 12/2021, initially with path consistent with CAH. 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 Pt reports heavy bleeding in the beginning of 2021 after 2 years of not having any vaginal bleedingand presented to her primary MARKETING ASSOCIATE who performed D&C as above. Reports she was told about pathology but had no idea that this was related to cancer. Has not had any vaginal bleeding or other symptoms since that visit. She was referred to process worker onc after her hysteroscopy but was unable [...] the patient. Oncology History Endometrial cancer (CMS/HCC) ([facility]) 11/09/2022 Initial Diagnosis Endometrial cancer (CMS/HCC) ([facility]) PMH: Past Medical History: Diagnosis Date Abnormal [...] use cpap Supraventricular tachycardia by ECG (CMS/HCC) ([facility]) patient states stopped own on 2 yrs ago medication PSH: Past Surgical History: Procedure Laterality Date SECTION CHOLECYSTECTOMY DILATION AND CURETTAGE OF UTERUS ESOPHAGOGASTRODUODENOSCOPY 03/01/2020 ESOPHAGOGASTRODUODENOSCOPY BIOPSY FUNCTIONAL ENDOSCOPIC SINUS SURGERY GASTRIC BYPASS 07/16/2020 LAPAROSCOPIC GASTRECTOMY - SLEEVE KNEE ARTHROSCOPY W/ MENISCAL REPAIR Left 03/01/2020 Bike Technician History: Patient's last menstrual period was 11/17/2021. [...] CD 120 mg 24 hr capsule multivit wyoizozu-fzhe-KS-calcium (THERA-M) 9 mg iron-400 mcg tablet traMADoL (ULTRAM) 50 mg tablet Allergies: Allergies Allergen Reactions Cefaclor Hives Family History: History of MARKETING ASSOCIATE cancer in mother (unsure of which kind) [...] Primary Overview - Initially presented to primary MARKETING ASSOCIATE w/ AUB in early 2021 - US on 10/02/21 showed EMS 1.7cm - Hsc D&C 12/26/21, path with figo grade 1 endometrioid adenocarcinoma in association with CAH (pathology reviewed at [facility]) - Last pap 05/21/22: NILM neg [...] y.o. who initially presented to her primary MARKETING ASSOCIATE with AUB and underwent hysteroscopy w/ D&C 12/2021, initially with path consistent with CAH. 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 Pt reports heavy bleeding in the beginning of 2021 after 2 years of not having any vaginal bleedingand presented to her primary MARKETING ASSOCIATE who performed D&C as above. Reports she was told about pathology but had no idea that this was related to cancer. Has not had any vaginal bleeding or other symptoms since that visit. She was referred to process worker onc after her hysteroscopy but was unable [...] the patient. Oncology History Endometrial cancer (CMS/HCC) ([facility]) 11/09/2022 Initial Diagnosis Endometrial cancer (CMS/HCC) ([facility]) PMH: Past Medical History: Diagnosis Date Abnormal uterine and vaginal bleeding, unspecified patient states unsure of last time noted of date Allergic rhinitis Anemia takes iron daily Arthritis Crohn's disease (CMS/HCC) ([facility]) Heart disease Heart murmur Hypertension tx in past lost over 100lbs no medications at this time Joint pain Left knee injury states wears brace occurred at work seeing Dr for injections Morbid obesity (CMS/HCC) (HCC) Sleep apnea does use cpap Supraventricular tachycardia by ECG (CMS/[facility]) ([facility]) patient states stopped own on 2 yrs ago medication PSH: Past Surgical History: Procedure Laterality Date SECTION CHOLECYSTECTOMY DILATION AND CURETTAGE OF UTERUS ESOPHAGOGASTRODUODENOSCOPY 03/01/2020 ESOPHAGOGASTRODUODENOSCOPY BIOPSY FUNCTIONAL ENDOSCOPIC SINUS SURGERY GASTRIC BYPASS 07/16/2020 LAPAROSCOPIC GASTRECTOMY - SLEEVE KNEE ARTHROSCOPY W/ MENISCAL REPAIR Left 03/01/2020 Bike Technician History: Patient's last menstrual period was 11/17/2021. [...] CD 120 mg 24 hr capsule multivit qwjljnne-xauu-XT-calcium (THERA-M) 9 mg iron-400 mcg tablet traMADoL (ULTRAM) 50 mg tablet Allergies: Allergies Allergen Reactions Cefaclor Hives Family History: History of MARKETING ASSOCIATE cancer in mother (unsure of which kind) [...] Primary Overview - Initially presented to primary MARKETING ASSOCIATE w/ AUB in early 2021 - US on 10/02/21 showed EMS 1.7cm - Hsc D&C 12/26/21, path with figo grade 1 endometrioid adenocarcinoma in association with CAH (pathology reviewed at [facility]) - Last pap 05/21/22: NILM neg [...] sentinel lymph nodes Tissue Lymph node, sentinel, MARKETING ASSOCIATE SURGICAL PATHOLOGY Shauna Soares MD 12/07/2022 1131 B : left external iliac sentinel lymph nodes Tissue Lymph node, sentinel, MARKETING ASSOCIATE SURGICAL PATHOLOGY Shauna Soares MD 12/07/2022 1200 [...] MD - Fellow Anesthesiologist: Francisco Khan MD INDIRECT SALES REPRESENTATIVE: Solange Naidu CRNA User Experience Researcher: Scott Hansen RN User Experience Researcher Relief: Deanna Gonzalez RN Scrub Relief: Deanna Gonzalez RN Scrub: Sabra Hare ST TELEPHONE ORDER CLERK ROOM SERVICE: Sergio Vu CRNFA [place] User Experience Researcher: Gertrudis Coreas RN TELEPHONE ORDER CLERK ROOM SERVICE ORIENTEE: Natalia Sellers RN DATE OF SURGERY [...] Bilateral tubes/ovaries were adherent to the sidewall. [place] of the uterus revealed no obvious gross [...] sentinel lymph nodes Tissue Lymph node, sentinel, MARKETING ASSOCIATE SURGICAL PATHOLOGY Shauna Soares MD 12/07/2022 1131 B : left external iliac sentinel lymph nodes Tissue Lymph node, sentinel, MARKETING ASSOCIATE SURGICAL PATHOLOGY Shauna Soares MD 12/07/2022 1200 [...] 11:31 AM CDT) Tissue (Lymph node, sentinel, MARKETING ASSOCIATE) 12/07/2022 11:31 AM CDT Tissue (Lymph node, sentinel, MARKETING ASSOCIATE) 12/07/2022 12:00 PM CDT Tissue (Uterus with/without tubes & ovaries, Neoplastic) 12/07/2022 12:53 PM CDT Narrative PATHOLOGY [facility] - 12/15/2022 2:22 PM CDT EPIC results best viewed via link to PDF [facility] [place] [address] Note to Patients: This report may contain [...] ??F : ??1965 (Age: 57) Address: ??[address] [place], [place] ??[address] Hospital #: ??[id number] Taken:12/07/2022 Received:12/07/2022 Reported: 12/15/2022 Patient Type: [facility] SDS ?? Service: Surgery Location: [facility] OR POD1 Physician(s): ??Shauna Soares M.D. Dr [...] substantiates the above cited diagnosis. ??Previous slides ([id number]) were reviewed. As per the sentinel lymph [...] lower uterine segment C11-C12 Full-thickness posterior wall (C7-M25-dook length posterior wall in four cassettes) C13-C14 Additional posterior wall C15 Right fallopian tube C16 Right ovary C17 Left fallopian tube C18 Left ovary Jar 2. ?? [facility]/12/08/2022 13:48 PA(s): Priti Gilllow, MS, JOSAFAT (ASCP) [...] Pelvic Nodes Examined: 4 ?Number of Pelvic [place] Nodes Examined: 4 ? Pathologic Staging (pTNM, [...] GYNECOLOGIC MALIGNANCY BIOMARKER ? Staining performed at: ?[facility] ? Mismatch Repair Protein Staining: ?MLH1: Intact nuclear expression ?PMS2: Intact nuclear expression ?MSH2: Intact nuclear expression ?MSH6: Intact nuclear expression ?Overall MMR Status: Mismatch repair intact ? p53 Expression Staining Pattern: ?Wild type expression ? HER-2 Staining Pattern: ?Not performed ? ER and IN Staining Pattern: ?Estrogen Receptor (ER) ?Positive ?Percentage of tumor cells with nuclear positivity: 100 % ?Intensity: ??Strong ?Progesterone Receptor (IN) ?Positive ?Percentage of cells with nuclear positivity: [...] Estrogen Receptor (ER, antibody SP1), Progesterone Receptor (IN, antibody 1E2), and HER2 ? (rabbit monoclonal antibody 4B5) were evaluated by immunohistochemistry (IHC) and morphometric analysis in ? routine formalin-fixed paraffin-embedded tissue using a proprietary polymer-based detection system and instrumentation ? by [employer] per dental mechanic? ? s recommendation. ? p53 IHC can be used as a surrogate for p53 mutation status in endometrial carcinoma and other malignancies ? (Makenzie et al, Int J Gynecol Pathol 2019, PMID 01867938; Aurelio et al, J Pathol 2020, PMID 58747515), however, it is ? neither completely sensitve nor specific and has limitations. ? HER-2 IHC ? IHC for Pathway Her2 (antibody 4B5) rabbit monoclonal antibody antibody were scored in compliance with the proposed ? scoring criteria used in the Jun et al 2018 clinical trial of trastuzumab in uterine serous ??carcinoma (see: Jun et al ? J Clin Oncol 2018, PMID 21671452; and Joel Arch Pathol Lab Med 2020,PMD, 99709199). ? Her2 Interpretation Guide: ? Score 0, [...] >30% of tumor cells. ? ER and IN IHC ? There are currently no outcome-driven consensus guidelines for reporting immunohistochemical assays for ER and IN in ? endometrial cancer. The College [employer] (CAP) recommends using a similar reporting [...] Surgical Pathology and Flow Cytometry Departments at [facility] as part of an ongoing quality control expert program and in compliance with federally mandated [...] Surgical Pathology and Flow Cytometry Departments of [facility]. ??It has not been cleared or approved by the U. S. Food and Drug Administration. IMAGES AND SCANNED DOCUMENTS, IF INCLUDED, ONLY VIEWABLE IN PDF VERSION OF REPORT us Shauna Soares MD LAB PATHOLOGY ORDERABLE S Final Result PATHOLOGY [facility] 3rd [place], [place] [phone] * Cytology (12/07/2022 11:09 AM CDT) Fluid (Pelvic Washing (Cytology)) 12/07/2022 11:09 AM CDT Narrative PATHOLOGY [facility] - 12/09/2022 1:56 PM CDT EPIC results best viewed via link to PDF [facility] [place] [address] Note to Patients: This report may contain [...] ??F : ??1965 (Age: 57) Address: ??[address] , [place], [place] ??[address] Hospital #: ??[id number] Taken:12/07/2022 Received:12/07/2022 Reported: 12/09/2022 Patient Type: [facility] SDS ?? Service: Surgery Location: [facility] OR POD1 Physician(s): ??Shauna Soares M.D. Gerry Basilio Jr., M.D. Zack Lynn M.D. FINAL DIAGNOSIS A. ??Pelvic washing: ? - Negative for malignancy ctb12/09/2022 13:56 By this signature, I attest that the above diagnosis is based upon my personal examination of the slides(and/or other material indicated in the diagnosis). nAdrew Fallon M.D. Report Electronically Reviewed and Signed [...] Surgical Pathology and Flow Cytometry Departments at [facility] as part of an ongoing quality control expert program and in compliance with federally mandated [...] Surgical Pathology and Flow Cytometry Departments of [facility]. ??It has not been cleared or approved by the U. S. Food and Drug Administration. Shauna Soares MD LAB CYTOLOGY ORDERABLES Final Result PATHOLOGY [facility] 3rd Floor [place], [place] [phone] documented in this encounter Visit Diagnoses Diagnosis [...] Provider: Shauna Soares MD - Comment: suction software configuration manager bag) sterile water irrigation (CANCELED) As [...] 12/07/2022 documented in this encounter Care Teams Ladle Operator Relationship Specialty Start Date End Date Baldomero Dominguez MD PCP - General 01/07/17 Lane Gonzalez MD [address] [facility] [address] [place] [address] Consulting Physician Interventional Cardiology 12/18/21 Pee Villasenor MD [address] [facility] [address] [place] [address] Consulting Physician Obstetrics and Gynecology 12/26/21 documented as of this encounter
--- OUTSIDE RECORDS SUMMARY | 2024-07-11 12:25 | XMS_ITS | Encounter Summary ---
Author Organization [facility] Address [address] [place] [address] Phone Care Team Providers Care Teacher Of The Sight Impaired Name Role Phone Baldomero Dominguez MD Primary Care Provider [phone] Lane Gonzalez MD Unavailable [phone] Pee Villasenor MD Unavailable [phone] Reason for Visit * Reason Onset Date Comments Surgery Confirmation 12/04/2022 Encounter Details Date Type Department Care Team (Late st Contact Info) Description 12/04/2022 Telephone [facility] Obstetrics and Gynecology [address] [facility] 13th [place] [address] [place] [address] Shauna Soares MD [address] [id number] [place] [address] Surgery Confirmation Social History Tobacco [...] on file Legal Sex Female 1:19 PM 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 Patient verbalized understanding and will be here for surgery. documented in this encounter Plan of Treatment Not on file documented as of this encounter Visit Diagnoses Not on filedocumented in this encounter Care Teams Teacher Of The Sight Impaired Relationship Specialty Start Date End Date Baldomero Dominguez MD PCP - General 01/07/17 Lane Gonzalez MD [address] [facility] [facility] [address] [place] [address] Consulting Physician Interventional Cardiology 12/18/21 Pee Villasenor MD [address] [facility] [address] [address] Consulting Physician Obstetrics and Gynecology 12/26/21 documented as of this encounter
--- OUTSIDE RECORDS SUMMARY | 2024-07-11 12:25 | XMS_ITS | Encounter Summary ---
Author Organization [facility] Healthcare Address [address] [place] [address] Care Team Providers Care Inventory Accountant Name Role Phone Baldomero Dominguez MD Primary Care Provider [phone] Lane Gonzalez MD Unavailable [phone] Pee Villasenor MD Unavailable [phone] Encounter Details Date Type Department Care Team (Late st Contact Info) Description 07/23/2023 Telephone [facility] Medical [facility] Obstetrical Gynecology [facility] [address] [address] Pee Villasenor MD [address] [facility] [address] [address] Social History Tobacco Use Types [...] on file Legal Sex Female 1:19 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 Pt can be scheduled 08/06 at 10:00 ER TECHNICIAN * Telephone Encounter - Jolly Thacker LPN - 07/23/2023 3:07 PM CST Zach, Can you add her if able? ER TECHNICIAN * Telephone Encounter - Pee Villasenor MD - 07/23/2023 3:04 PM LOADER TECHNICIAN As noted, she was supposed to follow-up in May of this year. Appointment was canceled. We can try to add her on in the next couple weeks for follow-up visit only. ER TECHNICIAN * Telephone Encounter - Jolly Thacker LPN - 07/23/2023 2:27 PM CST Pt had hysterectomy on 12/07/2022 and pathology was consistent with stage IA disease without high-intermediate risk features. It was recommended for pt to follow up with SHOE REPAIRMAN in 6 months. Pt cancelled 05/2023 appt. Please advise on when to schedule pt. ER TECHNICIAN * Telephone Encounter - Amaris Zuniga - 07/23/2023 2:16 PM CST Last WWE/OV: 02/08/23 Next WWE/OV: 09/14/23 Symptom(s): Pt called stating that she had a pelvic US 10/02/21 done which showed she had a cancerous tumor. Pt would like to discuss how often she should come in for check ups. Preferred Communication: Phone ER TECHNICIAN documented in this encounter Plan of Treatment Not on file documented as of this encounter Visit Diagnoses Not on filedocumented in this encounter Care Teams Inventory Accountant Relationship Specialty Start Date End Date Baldomero Dominguez MD PCP - General 01/07/17 Lane Gonzalez MD [facility] [address] [place] [address] Consulting Physician Interventional Cardiology 12/18/21 Pee Villasenor MD [address] [facility] [address] [place] [address] Consulting Physician Obstetrics and Gynecology 12/26/21 documented as of this encounter
--- OUTSIDE RECORDS SUMMARY | 2024-07-11 12:25 | XMS_ITS | Encounter Summary ---
Author Organization [facility] Address [address] [place] [address] Phone Care Team Providers Care Tonguer Name Role Phone Baldomero Dominguez MD Primary Care Provider [phone] Lane Gonzalez MD Unavailable [phone] Pee Villasenor MD Unavailable [phone] Encounter Details Date Type Department Care Team (Late st Contact Info) Description 12/17/2022 Telephone [facility] Obstetrics and Gynecology [address] [facility] 13th [place] [address] [place] [address] Checo Guillen MD [address] [place] [address] Social History Tobacco Use Types [...] on file 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
--- OUTSIDE RECORDS SUMMARY | 2024-07-11 12:25 | XMS_ITS | Encounter Summary ---
Author Organization [facility] Healthcare Address [address] [place] [address] Care Team Providers Care Meat Counter Worker Name Role Phone Baldomero Dominguez MD Primary Care Provider [phone] Lane Gonzalez MD Unavailable [phone] Pee Villasenor MD Unavailable [phone] Reason for Visit * Reason Comments Follow-up Encounter Details Date Type Department Care Team (Late st Contact Info) Description 12/23/2022 12:45 PM CDT Office Visit [facility] [address] [facility] [place] [address] Healthcare maintenance Social History Tobacco [...] on file 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 Please wait until the clinic is open for non-urgent needs as this emergency line cannot help with appointments, paperwork or prescriptions. If you have an emergency and cannot wait, please call 911 or go to the [facility] Emergency room. If you are having a problem with or are in labor you can go to the [facility] [place] (check in near elevator on first floor) [address] [facility], 5th [place] [address]. You can follow up with Dr. Villasenor [...] maintenance documented in this encounter Care Teams Meat Counter Worker Relationship Specialty Start Date End Date Baldomero Dominguez MD PCP - General 01/07/17 Lane Gonzalez MD [facility] [address] [place] [address] Consulting Physician Interventional Cardiology 12/18/21 Pee Villasenor MD [address] [facility] [address] [place] [address] Consulting Physician Obstetrics and Gynecology 12/26/21 documented as of this encounter
--- OUTSIDE RECORDS SUMMARY | 2024-07-11 12:25 | XMS_ITS | Encounter Summary ---
Author Organization [facility] Healthcare Address [address] [place] [address] Care Team Providers Care Implementation Engineer Name Role Phone Baldomero Dominguez MD Primary Care Provider [phone] Lane Gonzalez MD Unavailable [phone] Pee Villasenor MD Unavailable [phone] Reason for Visit * Auth/Cert (Routine) Specialty Diagnoses / Procedures Referred By Vianca t Referred To Contact Diagnoses Endometrial cancer (CMS/HCC) (HCC) Endometrial cancer (CMS/HCC) (HCC) [C54.1] Procedures IA LAPS TOTAL HYSTERECT 250 GM/< W/RMVL TUBE/OVARY IA INTRAOP SENTINEL LYMPH NODE ID W/DYE INJECTION IA LAPS SURG BILATERAL TOTAL PELVIC LMPHADECTOMY XI HYSTERECTOMY - LAPAROSCOPIC ROBOTIC ASSISTED XI SALPINGO/OOPHORECTOMY - LAPAROSCOPIC ROBOTIC ASSISTED XI ROBOTIC SENTINEL LYMPH NODE BX EXPLORATORY LAPAROTOMY CYSTOSCOPY Referral ID Status Reason Start Date Expiration Date Visits Re quested Visits Authorized [id number] 1 1 Encounter Details Date Type Department Care Team (Late st Contact Info) Description 12/07/2022 10:38 AM CDT Anesthesia Event [facility] Operating Room 1 [place] [id number] Francisco Chairez MD [address] [place] [address] Adri Garrido NP [address] [facility] [phone] [place] [address] Anesthesia Record Procedure Summary Procedure Name Responsible [...] Va isra; 06/27/24 (Retired LDA, Removed/Completed by [facility] with LDA Utility); 1213 (Retired LDA, Removed/Completed by [facility] with LDA Utility) 12/26/21 0744 by [...] 1328; Abdomen; 06/27/24 (Retired LDA, Removed/Completed by [facility] with LDA Utility); 1213 (Retired LDA, Removed/Completed by [facility] with LDA Utility) 12/07/22 1328 by Scott [...] on file Legal 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 Gender Identity Not on file Sexual Orientation Not on file documented as of this encounter OR Notes * Anesthesia Postprocedure Evaluation - Francisco Khan MD - 12/07/2022 3:23 PM CDT Patient: Rowena Quesada Procedure Summary Date: 12/07/22 Room / Location: [facility] OR POD 1 ROOM 328 / [facility] OR POD 1 Anesthesia Start: 1038 Anesthesia [...] Supervising provider: Francisco Khan MD Placed by: ROLL BUILDER: Solange Naidu CRNA Emergent airway documentation: Risks [...] and Planning Preoperative Evaluation Record Evaluation type/location: [facility] Planned procedure site: [facility] PVT OR (Pod 1) Date: 11/26/22 Anesthesia [...] (diltiazem) - PSVT. Pertinent negatives: CAD ; MS ; CABG ; valvular heart disease; valve [...] and pending verification. Per Amol in the [facility] blood bank, anticipated cross-match difficulty is difficult with anticipated necessity of obtaining blood units from the [facility]. Based on this information, we will initiate the following blood plan for the day of surgery: TBD pending H/H and/or blood bank results. [place] of surgery blood bank specimen availability, the plan is that the TBD pending H/H and/or blood bank results. >> Echo scheduled on 12/04/22 for pre-op clearance for surgery by cardiology Dr. Lindsay [facility] - will obtain Preoperative evaluation performed by [...] -- 05/02/20 -- Adry Sood MD multivit bxzjwjex-pwok-VM-calcium (THERA-M) 9 mg iron-400 mcg tablet Past [...] 120 mg 24 hr capsule ??? multivit bkitrsvh-yphn-KI-calcium (THERA-M) 9 mg iron-400 mcg tablet ??? [...] Medication protocol when under care of a ROLL BUILDER Planned anesthesia: General Team communication plan: oral ET tube Induction: Induction: intravenous. Postoperative Plan: Postoperative administration opioids intended. No postoperative mechanical ventilation intended. Patient's planned disposition post procedure is Outpatient. Informed Consent: Discussed plan with ROLL BUILDER. Anesthesia plan and risks discussed with patient. [...] Procedure Name Priority Date/Time Associated Diagnosis Comments IA AN PROCEDURE PLACEHOLDER Routine 12/07/2022 11:40 AM CDT IA AN ELECTIVE ENDOTRACHEAL AIRWAY Routine 12/07/2022 11:40 AM CDT documented in this encounter Results * IA AN ELECTIVE ENDOTRACHEAL AIRWAY, IA AN PROCEDURE PLACEHOLDER (12/07/2022 11:40 AM CDT) Narrative Solange Naidu CRNA - 12/07/2022 11:40 AM CDT Solange Naidu CRNA ? 12/07/2022 11:40 AM Airway Patient location: OR Urgency: elective Indications for airway management: anesthesia Difficult airway: no Staff: Supervising provider: Francisco Khan MD Placed by: ROLL BUILDER: Solange Naidu CRNA Emergent airway documentation: Risks [...] mg documented in this encounter Care Teams Implementation Engineer Relationship Specialty Start Date End Date Baldomero Dominguez MD PCP - General 01/07/17 Lane Gonzalez MD [address] [facility] [address] [place] [address] Consulting Physician Interventional Cardiology 12/18/21 Pee Villasenor MD [address] [facility] [address] [place] [address] Consulting Physician Obstetrics and Gynecology 12/26/21 documented as of this encounter
--- OUTSIDE RECORDS SUMMARY | 2024-07-11 12:25 | XMS_ITS | Encounter Summary ---
Author Organization [facility] Healthcare Address [address] [place] [address] Care Team Providers Care Nurse Case Management Name Role Phone Baldomero Dominguez MD Primary Care Provider [phone] Lane Gonzalez MD Unavailable [phone] Pee Villasenor MD Unavailable [phone] Reason for Visit * Auth/Cert (Routine) Specialty [...] Expiration Date Visits Re quested Visits Authorized [id number] 1 1 Encounter Details Date Type Department Care Team (Latest Contact Info) Description 12/07/2022 8:37 AM CDT - 12/07/2022 4:04 PM CDT Hospital Encounter [facility] Operating Room 1 [place] [phone] Shauna Soares MD [address] [phone] [place] [address] Endometrial cancer (CMS/HCC) (HCC) Discharge Disposition: Discharge [...] on file Legal Sex Female 1:19 PM [employer] Gender Identity Not on file Sexual Orientation [...] to a Drug Takeback location near you (https://health.[place].gov/safety/bndd/yqjsddvylj-spgjrawj-faiz.php), flush the pills down the toilet, or throw the pills away with your household trash separate from the pill bottle. Follow Up: * It is important to keep your scheduled follow up appointment with your MD. * If you cannot keep your scheduled appointment, please call the office. documented in this encounter Medications at Time of Discharge multivit bagyokmn-mnzm-TY -calcium (THERA-M) 9 mg iron-400 mcg tablet [...] y.o. who initially presented to her primary CONSULTING INTERN with [facility] and underwent hysteroscopy w/ D&C 12/2021, initially with path consistent with CAH. 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 Pt reports heavy bleeding in the beginning of 2021 after 2 years of not having any vaginal bleedingand presented to her primary CONSULTING INTERN who performed D&C as above. Reports she was told about pathology but had no idea that this was related to cancer. Has not had any vaginal bleeding or other symptoms since that visit. She was referred to nutrition aide onc after her hysteroscopy but was unable [...] the patient. Oncology History Endometrial cancer (CMS/HCC) ([facility]) 11/09/2022 Initial Diagnosis Endometrial cancer (CMS/HCC) ([facility]) PMH: Past Medical History: Diagnosis Date Abnormal uterine and vaginal bleeding, unspecified patient states unsure of last time noted of date Allergic rhinitis Anemia takes iron daily Arthritis Crohn's disease (CMS/[facility]) ([facility]) Heart disease Heart murmur Hypertension tx in past lost over 100lbs no medications at this time Joint pain Left knee injury states wears brace occurred at work seeing Dr for injections Morbid obesity ([facility]) ([facility]) Sleep apnea does use cpap Supraventricular tachycardia by ECG ([facility]) ([facility]) patient states stopped own on 2 yrs ago medication PSH: Past Surgical History: Procedure Laterality Date SECTION CHOLECYSTECTOMY DILATION AND CURETTAGE OF UTERUS ESOPHAGOGASTRODUODENOSCOPY 03/01/2020 ESOPHAGOGASTRODUODENOSCOPY BIOPSY FUNCTIONAL ENDOSCOPIC SINUS SURGERY GASTRIC BYPASS 07/16/2020 LAPAROSCOPIC GASTRECTOMY - SLEEVE KNEE ARTHROSCOPY W/ MENISCAL REPAIR Left 03/01/2020 [employer] [place] History: Patient's last menstrual period was 11/17/2021. [...] CD 120 mg 24 hr capsule multivit agbjztcn-osnf-BR-calcium (THERA-M) 9 mg iron-400 mcg tablet traMADoL (ULTRAM) 50 mg tablet Allergies: Allergies Allergen Reactions Cefaclor Hives Family History: History of CONSULTING INTERN cancer in mother (unsure of which kind) [...] Primary Overview - Initially presented to primary CONSULTING INTERN w/ [facility] in early 2021 - US on 10/02/21 showed EMS 1.7cm - Hsc D&C 12/26/21, path with figo grade 1 endometrioid adenocarcinoma in association with CAH (pathology reviewed at [facility]) - Last pap 05/21/22: NILM neg HPV [...] y.o. who initially presented to her primary CONSULTING INTERN with [facility] and underwent hysteroscopy w/ D&C 12/2021, initially with path consistent with CAH. 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 Pt reports heavy bleeding in the beginning of 2021 after 2 years of not having any vaginal bleedingand presented to her primary CONSULTING INTERN who performed D&C as above. Reports she was told about pathology but had no idea that this was related to cancer. Has not had any vaginal bleeding or other symptoms since that visit. She was referred to nutrition aide onc after her hysteroscopy but was unable [...] the patient. Oncology History Endometrial cancer (CMS/HCC) ([facility]) 11/09/2022 Initial Diagnosis Endometrial cancer (CMS/HCC) ([facility]) PMH: Past Medical History: Diagnosis Date Abnormal uterine and vaginal bleeding, unspecified patient states unsure of last time noted of date Allergic rhinitis Anemia takes iron daily Arthritis Crohn's disease (CMS/HCC) ([facility]) Heart disease Heart murmur Hypertension tx in past lost over 100lbs no medications at this time Joint pain Left knee injury states wears brace occurred at work seeing Dr for injections Morbid obesity ([facility]) ([facility]) Sleep apnea does use cpap Supraventricular tachycardia by ECG ([facility]) ([facility]) patient states stopped own on 2 yrs ago medication PSH: Past Surgical History: Procedure Laterality Date SECTION CHOLECYSTECTOMY DILATION AND CURETTAGE OF UTERUS ESOPHAGOGASTRODUODENOSCOPY 03/01/2020 ESOPHAGOGASTRODUODENOSCOPY BIOPSY FUNCTIONAL ENDOSCOPIC SINUS SURGERY GASTRIC BYPASS 07/16/2020 LAPAROSCOPIC GASTRECTOMY - SLEEVE KNEE ARTHROSCOPY W/ MENISCAL REPAIR Left 03/01/2020 [employer] [place] History: Patient's last menstrual period was 11/17/2021. [...] CD 120 mg 24 hr capsule multivit njxbbfwr-rsyp-BR-calcium (THERA-M) 9 mg iron-400 mcg tablet traMADoL (ULTRAM) 50 mg tablet Allergies: Allergies Allergen Reactions Cefaclor Hives Family History: History of CONSULTING INTERN cancer in mother (unsure of which kind) [...] Primary Overview - Initially presented to primary CONSULTING INTERN w/ [facility] in early 2021 - US on 10/02/21 showed EMS 1.7cm - Hsc D&C 12/26/21, path with figo grade 1 endometrioid adenocarcinoma in association with CAH (pathology reviewed at [facility]) - Last pap 05/21/22: NILM neg HPV [...] and the 5 Airseal was placed laterally. [place] similar fashion local anesthetic appropriate sized skin [...] sentinel lymph nodes Tissue Lymph node, sentinel, CONSULTING INTERN SURGICAL PATHOLOGY Shauna Soares MD 12/07/2022 1131 B : left external iliac sentinel lymph nodes Tissue Lymph node, sentinel, CONSULTING INTERN SURGICAL PATHOLOGY Shauna Soares MD 12/07/2022 1200 [...] MD - Fellow Anesthesiologist: Francisco Khan MD DIGITAL STRATEGY DIRECTOR: Solange Naidu CRNA Director Of Social Services: Scott Hansen RN Director Of Social Services Relief: Deanna Gonzalez RN Scrub Relief: Deanna Gonzalez, JENNIFER Scrub: Sabra Hare [address] [employer] [employer] MAIL DRIVER: Sergio Vu CRNFA [place] Director Of Social Services: Gertrudis Coreas RN [place] ORIENTEE: Natalia Sellers RN DATE OF SURGERY [...] Bilateral tubes/ovaries were adherent to the sidewall. [place] of the uterus revealed no obvious gross [...] sentinel lymph nodes Tissue Lymph node, sentinel, CONSULTING INTERN SURGICAL PATHOLOGY Shauna Soares MD 12/07/2022 1131 B : left external iliac sentinel lymph nodes Tissue Lymph node, sentinel, CONSULTING INTERN SURGICAL PATHOLOGY Shauna Soares MD 12/07/2022 1200 [...] 11:31 AM CDT) Tissue (Lymph node, sentinel, CONSULTING INTERN) 12/07/2022 11:31 AM CDT Tissue (Lymph node, sentinel, CONSULTING INTERN) 12/07/2022 12:00 PM CDT Tissue (Uterus with/without tubes & ovaries, Neoplastic) 12/07/2022 12:53 PM CDT Narrative PATHOLOGY [facility] - 12/15/2022 2:22 PM CDT EPIC results best viewed via link to PDF [facility] [place] [address] Note to Patients: This report may contain [...] ??F : ??1965 (Age: 57) Address: ??[address] , [place], [place] ??[address] Hospital #: ??[id number] Taken:12/07/2022 Received:12/07/2022 Reported: 12/15/2022 Patient Type: [facility] [...] - Endometriotic cyst, no evidence of malignancy [facility]/12/10/2022 16:38 By this signature, I attest that the above diagnosis is based upon my personal examination of the slides(and/or other material indicated in the diagnosis). Pio Zhou M.D., Ph.D. Report Electronically Reviewed and Signed Out By ??Pio Zhou M.D., Ph.D. 12/15/2022 14:22:58 Microscopic Description and Comment: Microscopic examination substantiates the above cited diagnosis. ??Previous slides ([id number]) were reviewed. As per the sentinel lymph [...] lower uterine segment C11-C12 Full-thickness posterior wall (C7-V03-eiid length posterior wall in four cassettes) C13-C14 Additional posterior wall C15 Right fallopian tube C16 Right ovary C17 Left fallopian tube C18 Left ovary Jar 2. ?? [facility]/12/08/2022 13:48 PA(s): Priti Baumann MS, PA ([facility]) ? CANCER CASE SUMMARY FOR CARCINOMA [...] Pelvic Nodes Examined: 4 ?Number of Pelvic Chandler Nodes Examined: 4 ? Pathologic Staging (pTNM, [...] GYNECOLOGIC MALIGNANCY BIOMARKER ? Staining performed at: ?[facility] ? Mismatch Repair Protein Staining: ?MLH1: Intact [...] polymer-based detection system and instrumentation ? by [employer] per remotely piloted vehicle controller? ? s recommendation. ? p53 IHC can be used as a surrogate for p53 mutation status in endometrial carcinoma and other malignancies ? (Makenzie et al, Int J Gynecol Pathol 2019, PMID 26189581; Aurelio et al, J Pathol 2020, PMID 72831309), however, it is ? neither completely sensitve nor specific and has limitations. ? HER-2 IHC ? IHC for Pathway Her2 (antibody 4B5) rabbit monoclonal antibody antibody were scored in compliance with the proposed ? scoring criteria used in the Justinoer et al 2018 clinical trial of trastuzumab in uterine serous ??carcinoma (see: Justinoer et al ? J Clin Oncol 2018, PMID 35806378; and Linda Arch Pathol Lab Med 2020,PMD, [id number]). ? Her2 Interpretation Guide: ? Score 0, [...] in ? endometrial cancer. The College of [employer] (CAP) recommends using a similar reporting [...] Surgical Pathology and Flow Cytometry Departments at [facility] as part of an ongoing quality assurance [...] Surgical Pathology and Flow Cytometry Departments of [facility]. ??It has not been cleared or approved by the U. S. Food and Drug Administration. IMAGES AND SCANNED DOCUMENTS, IF INCLUDED, ONLY VIEWABLE IN PDF VERSION OF REPORT Shauna Soares MD LAB PATHOLOGY ORDERABLE S Final Result PATHOLOGY [facility] 3rd Floor [place], [place] [phone] * Cytology (12/07/2022 11:09 AM CDT) Fluid (Pelvic Washing (Cytology)) 12/07/2022 11:09 AM CDT Narrative PATHOLOGY [facility] - 12/09/2022 1:56 PM CDT EPIC results best viewed via link to PDF [facility] [place] [address] Note to Patients: This report may contain [...] ??F : ??1965 (Age: 57) Address: ??[address] [place], [place] ??[address] Hospital #: ??[id number] Taken:12/07/2022 Received:12/07/2022 Reported: 12/09/2022 Patient Type: BJ [...] Surgical Pathology and Flow Cytometry Departments at [facility] as part of an ongoing quality assurance [...] Surgical Pathology and Flow Cytometry Departments of [facility]. ??It has not been cleared or approved by the U. S. Food and Drug Administration. Shauna Soares MD LAB CYTOLOGY ORDERABLES Final Result PATHOLOGY [facility] 3rd Floor [place], [place] [phone] documented in this encounter Visit Diagnoses Diagnosis [...] Provider: Shauna Soares MD - Comment: suction caser in bag) sterile water irrigation (CANCELED) As needed, [...] 12/07/2022 documented in this encounter Care Teams Nurse Case Management Relationship Specialty Start Date End Date Baldomero Dominguez MD PCP - General 01/07/17 Lane Gonzalez MD [address] [facility] [address] [place] [address] Consulting Physician Interventional Cardiology 12/18/21 Pee Villasenor MD [address] [facility] [address] [place] [address] Consulting Physician Obstetrics and Gynecology 12/26/21 documented as of this encounter
--- OUTSIDE RECORDS SUMMARY | 2024-07-11 12:25 | XMS_ITS | Encounter Summary ---
Author Organization [facility] Address [address] [place] [address] Phone Care Team Providers Care Pulp Machine Operator Name Role Phone Baldomero Dominguez MD Primary Care Provider [phone] Lane Gonzalez MD Unavailable [phone] Pee Villasenor MD Unavailable [phone] Reason for Referral * Diagnostic Imaging (Routine) - Authorized Specialty Diagnoses / Procedures Referred By Contac t Referred To Contact Diagnoses H/O gastric sleeve Intestinal malabsorption, unspecified type BMI 38.0-38.9,adult Procedures FL Esophagram, Single Contrast Montse Hoffman NP [address] [facility] [phone] [place] [address] Phone: tel: fax: [address] [phone] Referral ID Status Reason Start Date Expiration Date V isits Requested Visits Authorized [id number] Authorized 11/02/2023 12/01/2024 1 1 Encounter Details Date Type Department Care Team (Late st Contact Info) Description 11/02/2023 3:30 PM CDT Office Visit 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 Gender Identity Not on file Sexual [...] this encounter Progress Notes * Montse Hoffman, INFORMATION SYSTEMS SPECIALIST - 11/02/2023 3:30 PM CDT [facility] Metabolic & Weight Loss Surgery [...] hip Morbid obesity (HCC) Crohn's disease (CMS/HCC) ([facility]) Paroxysmal supraventricular tachycardia (HCC) Morbid obesity due to excess calories ([facility]) Abnormal uterine and vaginal bleeding, unspecified Hyperlipidemia Left atrial dilatation Left ventricular hypertrophy Seasonal allergic rhinitis History of supraventricular tachycardia Diastolic dysfunction Endometrial cancer (CMS/HCC) ([facility]) ALLERGIES: She is allergic to cefaclor. MEDICATIONS: She has a current medication list which includes the following prescription(s): multivit fnuwrbbv-nyhy-ro-calcium and cyclobenzaprine. PAST MEDICAL HISTORY: She has a past medical history of Abnormal uterine and vaginal bleeding, unspecified, Allergic rhinitis, Anemia, Arthritis, Crohn's disease (CMS/HCC) ([facility]), Heart disease, Heart murmur, Hypertension,Joint pain, Left knee injury, Morbid obesity ([facility]), Rheumatoid arthritis ([facility]), Sleep apnea, and Sup raventricular tachycardia by ECG ([facility]). She has no past medical history [...] Minimally Invasive Surgery Department of Surgery p: [phone] documented in this encounter Plan of Treatment [...] spasms added in this encounter Care Teams Pulp Machine Operator Relationship Specialty Start Date End Date Baldomero Dominguez MD PCP - General 01/07/17 Lane Gonzalez MD [address] [facility] [address] [place] [address] Consulting Physician Interventional Cardiology 12/18/21 Pee Villasenor MD [address] [facility] [address] [place] [address] Consulting Physician Obstetrics and Gynecology 12/26/21 documented as of this encounter
--- OUTSIDE RECORDS SUMMARY | 2024-07-11 12:25 | XMS_ITS | Encounter Summary ---
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 Gender Identity Not on file Sexual Orientation Not on file documented as of this encounter Miscellaneous Notes * Telephone Encounter - Ambreen Davila - 12/09/2022 4:32 PM CDT error documented in this encounter Plan of Treatment Not on file documented as of this encounter Visit Diagnoses Not on filedocumented in this encounter Care Teams Manager Gallery Relationship Specialty Start Date End Date Baldomero Dominguez MD PCP - General 01/07/17 Lane Gonzalez MD [address] [facility] [address] [place] [address] Consulting Physician Interventional Cardiology 12/18/21 Pee Villasenor MD [address] [facility] [address] [place] [address] Consulting Physician Obstetrics and Gynecology 12/26/21 documented as of this encounter
--- OUTSIDE RECORDS SUMMARY | 2024-07-11 12:25 | XMS_ITS | Encounter Summary ---
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 Gender Identity Not on file Sexual Orientation Not on file documented as of this encounter Medications at Time of Discharge cyclobenzaprine (FLEXERIL) 5 mg tablet Take 1 tablet (5 mg total) by mouth 3 (three) times a day as needed for muscle spasms multivit zdvinbvb-eniu-YK- calcium (THERA-M) 9 mg iron-400 mcg tablet [...] CDT 11/08/2023 4:23 PM CDT Narrative PATHOLOGY [facility] - 11/11/2023 2:07 PM CDT EPIC results best viewed via link to PDF [facility] [place] [address] Note to Patients: This report may contain [...] ??F : ??1965 (Age: 58) Address: ??[address] [place], [place] ??[address] Hospital #: ??[id number] Service: ??UNKNOWN Location: ?? Patient Type: ??[facility] SPECIMEN Taken: ??11/08/2023 Received: [...] performed using the arturo HPV assay ([employer] This test has been modified from the metal cut off saw tender's instructions. Its performance characteristics were determined by [facility] in a manner consistent with CLIA requirements. This test has not been cleared or approved by the U.S. Food and Drug Administration. Test Performed by: [address] [address] Farm Laborer: Pee Maria M.D. Ph.D.; CLIA# [id number] [facility]/11/11/2023 14:07 MISSY Cheung (ASCP) Report Electronically Reviewed [...] clinical information and biopsy results as indicated. [facility] Clinical Laboratory Improvement Amendments (CLIA) mandate that cytologic and histologic results be correlated for laboratory quality assurance monitor & improvement standards. ??FOR ALL HIGH-GRADE CASES [...] determined by the Surgical Pathology Department at [facility] as part of an ongoing director software quality assurance program and in compliance with federally mandated [...] determined by the Surgical Pathology Department of [facility]. ??It has not been cleared or approved by the U. S. Food and Drug Administration. Pee Villasenor MD LAB CYTOLOGY ORDERABLES Final Result PATHOLOGY [facility] * Vaginal High Risk HPV DNA Detection with Genotyping (Molecular component) (11/08/2023 10:56 AM CDT) HPV HR non 16/18 vaginal Negative Negative Comment: The following Other High Risk HPV types were not detected: 31, 33, 35, 39, 45, 51, 52, 56, 58, 59, 66, and 68 ADDITIONAL INFORMATION Testing was performed using the arturo HPV assay ([employer] This report is intended for use in clinical monitoring and management of patients. ??It is not intended for use in medical-legal applications. This test has been modified from the metal cut off saw tender's instructions. ??Its performance characteristics were determined by [facility] in a manner consistent with CLIA requirements. ??This test has not been cleared or approved by the U.S. Food and Drug Administration. Test Performed by: [facility] [address] [place] [address] Farm Laborer: Pee Maria M.D. Ph.D.; CLIA# [id number] Testing performed by: [facility], [address] [place]., [address] HPV HR 16 vaginal Negative Negative ALICIA SALAS Comment:Testing performed by : [facility], [address] [place]., [address] HPV HR 18 vaginal Negative Negative [facility] Comment:Testing performed by : [facility], [address] [place]., [address] Vaginal 11/08/2023 10:5 6 AM CDT 11/09/2023 9:27 AM CDT Narrative [facility] - 11/10/2023 7:48 PM CDT Clinical history and diagnosis->hyst d/t abnormal cells Testing type->Screening Last menstrual period (date if known)->hyst Pee Villasenor MD LAB BODY FLUIDS AND STO OLS ORDERABLES Final Result [facility] [address] [facility] Department [place] [address] documented in this encounter Visit Diagnoses Diagnosis Screening for vaginal cancer Special screening for malignant neoplasms, vagina documented in this encounter Care Teams House Father Relationship Specialty Start Date End Date Baldomero Dominguez MD PCP - General 01/07/17 Lane Gonzalez MD [address] [facility] [address] [place] [address] Consulting Physician Interventional Cardiology 12/18/21 Pee Villasenor MD [address] [facility] [address] [place] [address] Consulting Physician Obstetrics and Gynecology 12/26/21 documented as of this encounter
--- OUTSIDE RECORDS SUMMARY | 2024-07-11 12:25 | XMS_ITS | Encounter Summary ---
Author Organization [facility] Healthcare Address [address] [place] [address] Care Team Providers Care Silk Screen Operator Name Role Phone Baldomero Dominguez MD Primary Care Provider [phone] Lane Gonzalez MD Unavailable [phone] Pee Villasenor MD Unavailable Encounter Details Date Type Department Care Team (Late st Contact Info) Description 01/05/2024 Orders Only [facility] Health Information Management [address] [place] [id number] Pee Villasenor MD [address] [facility] [address] [address] Social History Tobacco Use Types [...] on file 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
--- OUTSIDE RECORDS SUMMARY | 2024-07-11 12:25 | XMS_ITS | Encounter Summary ---
Author Organization [facility] Address [address] [place] [address] Care Team Providers Care Client Services Specialist Name Role Phone Baldomero Dominguez MD Primary Care Provider [phone] Lane Gonzalez MD Unavailable Pee Villasenor MD Unavailable [phone] Reason for Referral * Sleep Medicine (Routine) - Closed Specialty Diagnoses / Procedures Referred By Contvaishnavi t Referred To Contact Diagnoses TRACE (obstructive sleep apnea) Snoring Hypersomnia Procedures Portable/Home Sleep Study Sobia Bell NP [address] [facility] [address] [address] Phone: tel: fax: [facility] [address] [place] [address] Phone: tel: fax: Referral ID Status Reason Start Date Expiration Date Visits Re quested Visits Authorized [id number] Closed 11/12/2023 12/11/2024 1 1 Reason for Visit * Sleep Medicine (Routine) - Closed Specialty Diagnoses / Procedures Referred By Vianca t Referred To Contact Diagnoses TRACE (obstructive sleep apnea) Snoring Hypersomnia Procedures Portable/Home Sleep Study Sobia Bell, SYSTEM TECHNOLOGIST [address] [facility] [place] [address] Phone: tel: fax: [facility] OP [address] [address] Phone: tel: fax: Referral ID Status Reason Start Date Expiration Date Visits Re quested Visits Authorized [id number] Closed 11/12/2023 12/11/2024 1 1 Encounter Details Date Type Department Care Team (Latest Contact Info) Description 02/02/2024 1:00 PM CDT - 02/02/2024 11:59 PM CDT Hospital Encounter [facility] [address] [place] [address] TRACE (obstructive sleep apnea); Snoring; [...] on file 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 Gender Identity Not on file Sexual Orientation Not on file documented as of this encounter Medications at Time of Discharge cyclobenzaprine (FLEXERIL) 5 mg tablet Take 1 tablet (5 mg total) by mouth 3 (three) times a day as needed for muscle spasms multivit hnllpmzr-afzk-EN- calcium (THERA-M) 9 mg iron-400 mcg tablet [...] (02/02/2024 1:10 PM CDT) us Sobia Bell SYSTEM TECHNOLOGIST SLEEP CENTER ORDERABLES Fin al Result [facility]EP [facility] [address] [place] [address] documented in this encounter Visit Diagnoses Diagnosis TRACE (obstructive sleep apnea) Obstructive sleep apnea (adult) (pediatric) Snoring Other dyspnea and respiratory abnormality Hypersomnia Hypersomnia, unspecified documented in this encounter Care Teams Client Services Specialist Relationship Specialty Start Date End Date Baldomero Dominguez MD PCP - General 01/07/17 Lane Gonzalez MD [address] [facility] [address] [place] [address] Consulting Physician Interventional Cardiology 12/18/21 Pee Villasenor MD [address] [facility] [address] [place] [address] Consulting Physician Obstetrics and Gynecology 12/26/21 documented as of this encounter
--- OUTSIDE RECORDS SUMMARY | 2024-07-11 12:25 | XMS_ITS | Encounter Summary ---
Author Organization [facility] Address [address] [place] [address] Care Team Providers Care Medical Records Library Professor Name Role Phone Baldomero Dominguez MD Primary Care Provider [phone] Lane Gonzalez MD Unavailable [phone] Pee Villasenor MD Unavailable [phone] Reason for Referral * Sleep Medicine (Routine) - Closed Specialty Diagnoses / Procedures Referred By Contac t Referred To Contact Diagnoses TRACE (obstructive sleep apnea) Snoring Hypersomnia Procedures Portable/Home Sleep Study Sobia Bell NP [address] [facility] [address] [address] Phone: tel: fax: [facility] [address] [place] [address] Phone: tel: fax: Referral ID Status Reason Start Date Expiration Date Visits Re quested Visits Authorized [id number] Closed 11/12/2023 12/11/2024 1 1 Reason for Visit * Reason Comments Follow-up * Consultation (Routine) - Closed Specialty Diagnoses / Procedures Referred By Vianca t Referred To Contact Sleep Medicine Diagnoses TRACE (obstructive sleep apnea) Baldomero Dominguez MD [address] [place] [address] Phone: tel: fax: [facility] Pulmonary [place] [address] [facility] [address] [place] [address] Phone: tel: fax: Referral ID Status Reason Start Date Expiration Date V isits Requested Visits Authorized [id number] Closed Specialty Services Required 09/27/2023 10/26/2024 1 1 Encounter Details Date Type Department Care Team (Late st Contact Info) Description 11/12/2023 11:00 AM CDT Office Visit [facility] Pulmonology [address] [facility] [address] [place] [phone] [place] [address] [place] [address] [address] [place] [address] Snoring (Primary Dx); TRACE (obstructive sleep apnea); [...] on file 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 She has nausea. [place] sleepiness scale is 10 Past Medical History: Past Medical History: Diagnosis Date Abnormal uterine and vaginal bleeding, unspecified patient states unsure of last time noted of date Allergic rhinitis Anemia takes iron daily Arthritis Crohn's disease ([facility]) ([facility]) Heart disease Heart murmur Hypertension tx in past lost over 100lbs no medications at this time Joint pain Left knee injury states wears brace occurred at work seeing Dr for injections Morbid obesity ([facility]) Rheumatoid arthritis ([facility]) Sleep apnea does use cpap Supraventricular tachycardia by ECG ([facility]) patient states stopped own on 2 [...] a day asneeded for muscle spasms multivit oxrbcyru-dxwa-NL-calcium (THERA-M) 9 mg iron-400 mcg tablet Take [...] (02/02/2024 1:10 PM CDT) us Sobia Bell REEL REPAIRER SLEEP CENTER ORDERABLES Fin al Result [facility]EP [facility]ICINE [address] documented in this encounter Visit Diagnoses Diagnosis Snoring- Primary Other dyspnea and respiratory abnormality TRACE (obstructive sleep apnea) Obstructive sleep apnea (adult) (pediatric) Hypersomnia Hypersomnia, unspecified documented in this encounter Orders Outpatient Referral Count Last Ordered Date Fir st Ordered Date AMB REFERRAL TO SLEEP MEDICINE 1 11/12/2023 documented in this encounter Care Teams Medical Records Library Professor Relationship Specialty Start Date End Date Baldomero Dominguez MD PCP - General 01/07/17 Lane Gonzalez MD [facility] [address] [place] [address] Consulting Physician Interventional Cardiology 12/18/21 Pee Villasenor MD [facility] [address] [place] [address] Consulting Physician Obstetrics and Gynecology 12/26/21 documented as of this encounter
--- OUTSIDE RECORDS SUMMARY | 2024-07-11 12:25 | XMS_ITS | Encounter Summary ---
Author Organization [facility] Address [address] [facility] [address] [place] [address] Phone Care Team Providers Care Practice Administrator Name Role Phone Baldomero Dominguez MD Primary Care Provider [phone] Lane Gonzalez MD Unavailable [phone] Pee Villasenor MD Unavailable [phone] Reason for Visit * Reason Onset Date Comments Post-op Problem 10/18/2023 Encounter Details Date Type Department Care Team (Late st Contact Info) Description 10/18/[address] 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
--- OUTSIDE RECORDS SUMMARY | 2024-07-11 12:25 | XMS_ITS | Encounter Summary ---
Author Organization [facility] Medical [facility] Address [address] [facility] [address] [place] [address] Care Team Providers Care Hand Bulldozer Name Role Phone Baldomero Dominguez MD Primary Care Provider [phone] [address] Gonzalez MD Unavailable [phone] Pee Villasenor MD Unavailable [phone] Reason for Visit * Reason Comments Abdominal Pain Total hysterectomy d one by [facility] CQ DEVELOPER ONC at [facility] 12/07/22. 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 At 4 wk f/u she was [...] lymph node biopsy for endometrial cancer at [place]. States that at her 4 week follow-up [...] with results. *This note is dictated using [employer] voice recognition software, variances in spelling and [...] documented as of this encounter Care Teams Hand Bulldozer Relationship Specialty Start Date End Date Baldomero Dominguez MD PCP - General 01/07/17 Lane Gonzalez MD [address] [facility] [address] [place] [address] Consulting Physician Interventional Cardiology 12/18/21 Pee Villasenor MD [address] [facility] [address] [place] [address] Consulting Physician Obstetrics and Gynecology 12/26/21 documented as of this encounter
--- OUTSIDE RECORDS SUMMARY | 2024-07-11 12:25 | XMS_ITS | Encounter Summary ---
Author Organization [facility] Address [address] [place] [address] Care Team Providers Care Recycling Manager Name Role Phone Baldomero Dominguez MD Primary Care Provider [phone] Lane Gonzalez MD Unavailable Pee Villasenor MD Unavailable [phone] Reason for Referral * Diagnostic Imaging (Routine) - Closed Specialty Diagnoses / Procedures Referred By Contac t Referred To Contact Diagnoses Encounter for screening mammogram for malignant neoplasm of breast Procedures Screening Mammogram 2D Bilateral Pee Villasenor MD [address] [facility] [address] [place] [address] Phone: tel: fax: [facility] [address] [place] [address] Phone: tel: fax: Referral ID Status Reason Start Date Expiration Date Visits Re quested Visits Authorized [id number] Closed 11/08/2023 12/07/2024 1 1 Reason for Visit * Reason Comments Well Women Visit No fmhx breast cance r Encounter Details Date Type Department Care Team (Late st Contact Info) Description 11/08/2023 11:30 AM CDT Office Visit [facility] Obstetrical Gynecology [address] [facility] [address] [place] [address] Pee Villasenor MD [address] [facility] [address] [place] [address] Well woman exam (Primary Dx); Screening for [...] on file Legal Sex Female 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 Exam conducted with a prop and effects designer present. Constitutional: Appearance: She is well-developed. HENT: [...] CDT 11/08/2023 4:23 PM CDT Narrative PATHOLOGY [facility] - 11/11/2023 2:07 PM CDT EPIC results best viewed via link to PDF [facility] Jolly Carmona Laboratory [place] [address] Note to Patients: This report may contain [...] : ??1965 (Age: 58) Address: [address] [place], [place] ??[address] Hospital #: ??[id number] Service: ??UNKNOWN Location: ?? Patient Type: ??[facility] SPECIMEN Taken: ??11/08/2023 Received: ??11/08/2023 Accessioned: ??11/09/2023 [...] This test has been modified from the nurse rn bsn's instructions. Its performance characteristics were determined by [facility] in a manner consistent with CLIA requirements. This test has not been cleared or approved by the U.S. Food and Drug Administration. Test Performed by: [address] [address] Metal Molder: Pee Maria M.D. Ph.D.; CLIA# [id number] [facility]/11/11/2023 14:07 MISSY Cheung (ASCP) Report Electronically Reviewed [...] clinical information and biopsy results as indicated. [facility] Clinical Laboratory Improvement Amendments (CLIA) mandate that cytologic and histologic results be correlated for laboratory quality assurance supervisor chassis & improvement standards. ??FOR ALL HIGH-GRADE CASES [...] determined by the Surgical Pathology Department at [facility] as part of an ongoing quality control technician program and in compliance with federally mandated [...] determined by the Surgical Pathology Department of [facility]. ??It has not been cleared or approved by the U. S. Food and Drug Administration. Pee Villasenor MD LAB CYTOLOGY ORDERABLES Final Result PATHOLOGY [facility] * Vaginal High Risk HPV DNA Detection with Genotyping (Molecular component) (11/08/2023 10:56 AM CDT) HPV HR non 16/18 vaginal Negative Negative Comment: The following Other High Risk HPV types were not detected: 31, 33, 35, 39, 45, 51, 52, 56, 58, 59, 66, and 68 ADDITIONAL INFORMATION Testing was performed using the arturo HPV assay ([employer] This report is intended for use in clinical monitoring and management of patients. ??It is not intended for use in medical-legal applications. This test has been modified from the nurse rn bsn's instructions. ??Its performance characteristics were determined by [facility] in a manner consistent with CLIA requirements. ??This test has not been cleared or approved by the U.S. Food and Drug Administration. Test Performed by: [facility] [address] [place] [address] Metal Molder: Pee Maria M.D. Ph.D.; CLIA# [id number] Testing performed by: [facility], [address] [place]., [address] HPV HR 16 vaginal Negative Negative ALICIA SALAS Comment:Testing performed by : [facility], [address] [place]., [address] HPV HR 18 vaginal Negative Negative ALICIA SALAS Comment:Testing performed by : [facility], [address] [facility], [place]., [address] Vaginal 11/08/2023 10:5 6 AM CDT 11/09/2023 9:27 AM CDT Helen SALAS - 11/10/2023 7:48 PM CDT Clinical history and diagnosis->hyst d/t abnormal cells Testing type->Screening Last menstrual period (date if known)->hyst Pee Villasenor MD LAB BODY FLUIDS AND STO OLS ORDERABLES Final Result ALICIA [address] [facility] Department [place] [address] documented in this encounter Visit Diagnoses Diagnosis [...] vagina documented in this encounter Care Teams Recycling Manager Relationship Specialty Start Date End Date Baldomero Dominguez MD PCP - General 01/07/17 Lane Gonzalez MD [address] [facility] [address] [place] [address] Consulting Physician Interventional Cardiology 12/18/21 Pee Villasenor MD [address] [facility] [address] [place] [address] Consulting Physician Obstetrics and Gynecology 12/26/21 documented as of this encounter
--- OUTSIDE RECORDS SUMMARY | 2024-07-11 12:26 | XMS_ITS | Encounter Summary ---
Author Organization [facility] Address [address] [facility] [address] [place] [address] Care Team Providers Care Basket Weaver Name Role Phone Baldomero Dominguez MD Primary Care Provider [phone] Lane Gonzalez MD Unavailable [phone] Pee Villasenor MD Unavailable [phone] Encounter Details Date Type Department Care Team (Late st Contact Info) Description 09/08/2022 Telephone [facility] Obstetrical Gynecology [address] [facility] [address] [place] [address] Pee Villasenor MD [address] [facility] [address] [address] Social History Tobacco Use Types [...] on file Legal Sex Female 1:19 PM ASSISTIVE TECHNOLOGY TRAINER Gender Identity Not on file Sexual Orientation Not on file documented as of this encounter Miscellaneous Notes * Telephone Encounter - Zach Marquez LPN - 09/08/2022 1:45 PM CST Pt scheduled 10/14/22 STIVE TECHNOLOGY TRAINER * Telephone Encounter - Pee Villasenor MD - 09/08/2022 1:27 PM ASSISTIVE TECHNOLOGY TRAINER Appointment in the next couple weeks STIVE TECHNOLOGY TRAINER * Telephone Encounter - Zach Marquez LPN - 09/08/2022 1:09 PM CST S/w pt, she states she has had knee surgery and is just recently getting back on her feet. She alsostates she has been thinking about this and would like to set up an appointment with you to re-discuss before she'll schedule and appointment with them. Please advise. STIVE TECHNOLOGY TRAINER * Telephone Encounter - Pee Villasenor MD - 09/08/2022 10:57 AM ASSISTIVE TECHNOLOGY TRAINER Please contact patient and notify her that [...] quit trying to get her to go. STIVE TECHNOLOGY TRAINER * Telephone Encounter - Zach Marquez LPN [...] time and pt agreed to follow up. STIVE TECHNOLOGY TRAINER * Telephone Encounter - Rae Ross - 09/08/2022 8:44 AM CST [facility] oncology calling just to notify that they had canceled the referral for pt Rowena Quesada due to 3 no call no shows. STIVE TECHNOLOGY TRAINER documented in this encounter Plan of Treatment Not on file documented as of this encounter Visit Diagnoses Not on filedocumented in this encounter Care Teams Basket Weaver Relationship Specialty Start Date End Date Baldomero Dominguez MD PCP - General 01/07/17 Lane Gonzalez MD [address] [facility] [address] [place] [address] Consulting Physician Interventional Cardiology 12/18/21 Pee Villasenor MD [address] [facility] [address] L[address] [place] [address] Consulting Physician Obstetrics and Gynecology 12/26/21 documented as of this encounter
--- OUTSIDE RECORDS SUMMARY | 2024-07-11 12:26 | XMS_ITS | Encounter Summary ---
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 documented in this encounter Plan of Treatment Not on file documented as of this encounter Visit Diagnoses Not on filedocumented in this encounter Care Teams Business Analytics Analyst Relationship Specialty Start Date End Date Baldomero Dominguez MD PCP - General 01/07/17 Lane Gonzalez MD [address] [facility] [address] [place] [address] Consulting Physician Interventional Cardiology 12/18/21 Pee Villasenor MD [address] [facility] [address] [place] [address] Consulting Physician Obstetrics and Gynecology 12/26/21 documented as of this encounter
--- OUTSIDE RECORDS SUMMARY | 2024-07-11 12:26 | XMS_ITS | Encounter Summary ---
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 Patient had no questions at this time. * Telephone Encounter - Delmis Lentz - 10/16/2022 9:24 AM CDT Medical Question/Miscellaneous Caller???s Concern: Patient has a new referral for certified travel counselor/onc clinic and would like a call back to be scheduled for an appt as soon as possible Caller???s Call back #: [phone] Does message need to be routed?Yes-Action Needed documented in this encounter Plan of Treatment Not on file documented as of this encounter Visit Diagnoses Not on filedocumented in this encounter Care Teams President [place] Relationship Specialty Start Date End Date Baldomero Dominguez MD PCP - General 01/07/17 Lane Gonzalez MD [facility] [address]LE [address] [place] [address] Consulting Physician Interventional Cardiology 12/18/21 Pee Villasenor MD [address] [facility] [address] [place] [address] Consulting Physician Obstetrics and Gynecology 12/26/21 documented as of this encounter
--- OUTSIDE RECORDS SUMMARY | 2024-07-11 12:26 | XMS_ITS | Encounter Summary ---
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 EN MACHINERY MECHANIC documented in this encounter Plan of Treatment Not on file documented as of this encounter Visit Diagnoses Not on filedocumented in this encounter Care Teams Metals Analyst Relationship Specialty Start Date End Date Baldomero Dominguez MD PCP - General 01/07/17 Lane Gonzalez MD [address] [facility] [address] [place] [address] Consulting Physician Interventional Cardiology 12/18/21 Pee Villasenor MD [address] [facility] [address] [place] [address] Consulting Physician Obstetrics and Gynecology 12/26/21 documented as of this encounter
--- OUTSIDE RECORDS SUMMARY | 2024-07-11 12:26 | XMS_ITS | Encounter Summary ---
Author Organization [facility] Healthcare Address [address] [place] [address] Care Team Providers Care Outside Upholsterer Name Role Phone Baldomero Dominguez MD Primary Care Provider [phone] Lane Gonzalez MD Unavailable [phone] Pee Villasenor MD Unavailable [phone] Reason for Visit * Reason Comments New Patient * Consultation (Routine) - Closed Specialty Diagnoses / Procedures Referred By Contac t Referred To Contact Gynecologic Oncology Diagnoses Atypical endometrial hyperplasia Pee Villasenor MD [address] [facility] [address] [address] Phone: tel: fax: [facility] [address] [place] [address] Phone: tel: fax: Referral ID Status Reason Start Date Expiration Date V isits Requested Visits Authorized [id number] Closed Specialty Services Required 10/14/2022 11/13/2023 1 1 Encounter Details Date Type Department Care Team (Late st Contact Info) Description 11/11/2022 2:15 PM CDT Office Visit [facility] [address] [facility] [place] [address] Endometrial cancer (CMS/HCC) (HCC) (Primary Dx); Atypical [...] on file Legal 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 who initially presented to her primary RADIOLOGIST with AUB and underwent hysteroscopy w/ D&C 12/2021, initially with path consistent with CAH. 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 Pt reports heavy bleeding in the beginning of 2021 after 2 years of not having any vaginal bleedingand presented to her primary RADIOLOGIST who performed D&C as above. Reports she was told about pathology but had no idea that this was related to cancer. Has not had any vaginal bleeding or other symptoms since that visit. She was referred to coal briquette machine operator onc after her hysteroscopy but was unable [...] KNEE ARTHROSCOPY W/ MENISCAL REPAIR Left 03/01/2020 Ticket Scheduler History: Patient's last menstrual period was 11/17/2021. 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
--- OUTSIDE RECORDS SUMMARY | 2024-07-11 12:26 | XMS_ITS | Encounter Summary ---
Author Organization [facility] Address [address] [facility] [address] [place] [address] Care Team Providers Care Mine Expert Name Role Phone Baldomero Dominguez MD Primary Care Provider [phone] Lane Gonzalez MD Unavailable [phone] Pee Villasenor MD Unavailable [phone] Encounter Details Date Type Department Care Team (Late st Contact Info) Description 05/21/2022 Telephone [facility] Obstetrical Gynecology [address] [facility] [address] [place] [address] Pee Villasenor MD [address] [place] [address] [address] [place] [address] Social History Tobacco Use Types [...] on file Legal 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 [address] [place] [address] Consulting Physician Interventional Cardiology 12/18/21 Pee Villasenor MD [address] [facility] [address] LITT[address] [place] [address] Consulting Physician Obstetrics and Gynecology 12/26/21 documented as of this encounter
--- OUTSIDE RECORDS SUMMARY | 2024-07-11 12:26 | XMS_ITS | Encounter Summary ---
Author Organization [facility] Address [address] [facility] [address] [place] [address] Care Team Providers Care Program Production Specialist Name Role Phone Baldomero Dominguez MD Primary Care Provider [phone] Lane Gonzalez MD Unavailable [phone] Pee Villasenor MD Unavailable [phone] Encounter Details Date Type Department Care Team (Late st Contact Info) Description 10/16/2022 Telephone [facility] Obstetrical Gynecology [address] [facility] [address] [place] [address] Pee Villasenor MD [address] [facility] [address] [address] Social History Tobacco Use Types [...] on file Legal 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
--- OUTSIDE RECORDS SUMMARY | 2024-07-11 12:26 | XMS_ITS | Encounter Summary ---
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 Gender Identity Not on file Sexual Orientation Not on file documented as of this encounter Miscellaneous Notes * Telephone Encounter - Dee Dee Lepe MA - 08/25/2022 9:43 AM CST Called patient left message if she calls back please reschedule her new patient oncology appointment Thanks NG CUTTER documented in this encounter Plan of Treatment Not on file documented as of this encounter Visit Diagnoses Not on filedocumented in this encounter Care Teams Pres[facility] Clergy Relationship Specialty Start Date End Date Baldomero Dominguez MD PCP - General 01/07/17 Lane Gonzalez MD [address] [facility] [address] [place] [address] Consulting Physician Interventional Cardiology 12/18/21 Pee Villasenor MD [address] [facility] [address] [place] [address] Consulting Physician Obstetrics and Gynecology 12/26/21 documented as of this encounter
--- OUTSIDE RECORDS SUMMARY | 2024-07-11 12:26 | XMS_ITS | Encounter Summary ---
Author Organization [facility] Address [address] [facility] [address] [place] [address] Care Team Providers Care Mat Worker Name Role Phone Baldomero Dominguez MD Primary Care Provider [phone] Lane Gonzalez MD Unavailable [phone] Pee Villasenor MD Unavailable [phone] Reason for Visit * Reason Comments Discuss orthopaedic technologist oncology referral Menopause Pt states she would like to discuss menopause. Hot all the time, feels like she's on fire at night, hot flashes, no sex drive, cranky, etc. Encounter Details Date Type Department Care Team (Late st Contact Info) Description 10/14/2022 11:45 AM CDT Office Visit 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 female. Chief Complaint Discuss orthopaedic technologist oncology referral and Menopause (Pt states she [...] atypical endometrial hyperplasia. She was referred to orthopaedic technologist Oncology for further evaluation and treatment. Multiple [...] she needs to keep her appointment with orthopaedic technologist Oncology. Discussed possibility of underlying cancer as well as 30-40% development of cancer if left untreated. She seems to understand and agree. Menopausal symptoms (N95.1) Discussed menopause and post menopause. Would recommend any discussions concerning hormone therapy be tabled until she sees orthopaedic technologist Oncology. May want to consider SSRI. *This note is dictated using Sequent voice recognition software, variances in spelling and vocabulary are possible and unintentional* documented in this encounter Plan of Treatment Not on file documented as of this encounter Visit Diagnoses Diagnosis Atypical endometrial hyperplasia- Primary Menopausal symptoms Symptomatic menopausal or female climacteric states documented in this encounter Care Teams Mat Worker Relationship Specialty Start Date End Date Baldomero Dominguez MD PCP - General 01/07/17 Lane Gonzalez MD [address] [place] [address] DR [address] [place] [address] Consulting Physician Interventional Cardiology 12/18/21 Pee iVllasenor MD [address] [facility] [address] LITT[address] [place] [address] Consulting Physician Obstetrics and Gynecology 12/26/21 documented as of this encounter
--- OUTSIDE RECORDS SUMMARY | 2024-07-11 12:26 | XMS_ITS | Encounter Summary ---
Author Organization [facility] Address [address] [facility] [address] [place] [address] Care Team Providers Care Glaze Handler Name Role Phone Baldomero Dominguez MD Primary Care Provider [phone] Lane Gonzalez MD Unavailable [phone] Pee Villasenor MD Unavailable [phone] Encounter Details Date Type Department Care Team (Late st Contact Info) Description 04/27/2022 Telephone [facility] Obstetrical Gynecology [address] [facility] [address] [place] [address] Pee Villaesnor MD [address] [facility] [address] [address] Social History Tobacco Use Types [...] on file Legal 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
--- OUTSIDE RECORDS SUMMARY | 2024-07-11 12:26 | XMS_ITS | Encounter Summary ---
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 - 05/26/2022 1:32 PM CDT [facility] Department of Pathology [address] [place] [address] Final Report with Addendum Note to [...] details. Patient Name: ??RODNEYDERRICK BLANCO Address: ??[address] [facility], ?? [place], [place] [address] Gender: ??F : ??1965 (Age: 56) Service: ??Laboratory Location: ?? Hospital #: ??[id number] Patient Type: ??[facility] SPECIMEN Taken: ??05/21/2022 Received: ??05/22/2022 Accessioned:: ??05/25/2022 Reported: ??05/26/2022 Physician(s): Pee Villasenor M.D. [facility] Diagnosis: Source of Specimen: ? SCREENING THIN [...] determined by the Surgical Pathology Department at [facility] as part of an ongoing quality assurance engineer program and in compliance with federally [...] characteristics determined by the Surgical Pathology Department [facility]. ??It has not been cleared or approved by the U. S. Food and Drug Administration. Pee Villasenor MD LAB CYTOLOGY ORDERABLES Final Result PATHOLOGY [facility] documented in this encounter Visit Diagnoses Diagnosis Well woman exam Routine general medical examination at a health care facility Screening for cervical cancer Screening for malignant neoplasm of the cervix documented in this encounter Care Teams Chief Development Officer Relationship Specialty Start Date End Date Baldomero Dominguez MD PCP - General 01/07/17 Lane Gonzalez MD [address] [facility] [address] [place] [address] Consulting Physician Interventional Cardiology 12/18/21 Pee Villasenor MD [address] [facility] [address] [place] [address] Consulting Physician Obstetrics and Gynecology 12/26/21 documented as of this encounter
--- OUTSIDE RECORDS SUMMARY | 2024-07-11 12:26 | XMS_ITS | Encounter Summary ---
Author Organization [facility] Address [address] [address] Care Team Providers Care Social Work Administrator Name Role Phone Baldomero Dominguez MD Primary Care Provider [phone] Lane Gonzalez MD Unavailable [phone] Pee Villasenor MD Unavailable [phone] Reason for Referral * Consultation (Routine) - Closed Specialty Diagnoses / Procedures Referred By Vianca montiel Referred To Contact Gynecologic Oncology Diagnoses Atypical endometrial hyperplasia Pee Villasenor MD [address] [facility] [address] [address] Phone: tel: fax: [facility] [address] [facility] [place] [address] Phone: tel: fax: Referral ID Status Reason Start Date Expiration Date V isits Requested Visits Authorized [id number] Closed Specialty Services Required 10/14/2022 11/13/2023 1 1 Question Answer Please select the performing region: [facility] (All Locations) [[id number]] To provider: RANDALL COREA [[id number]] # of visits: 1 Comments Atypical endometrial hyperplasia Encounter Details Date Type Department Care Team (Late st Contact Info) Description 10/14/2022 Telephone [facility] Obstetrical Gynecology [address] [facility] [address] [place] [phone] Pee Villasenor MD [address] [address] Social History Tobacco Use Types Packs/Day Years [...] file 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 documented in this encounter Plan of Treatment Scheduled Referrals Name Type Priority Associated Diagnoses Orde r Schedule Ambulatory referral to Gynecologic Oncology Outpatient Referral Routine Atypical endometrial hyperplasia Expected: 10/28/2022 (Approximate), Expires: 10/15/2023 documented as of this encounter Visit Diagnoses Diagnosis Atypical endometrial hyperplasia- Primary documented in this encounter Care Teams Social Work Administrator Relationship Specialty Start Date End Date Baldomero Dominguez MD PCP - General 01/07/17 Lane Gonzalez MD [address] [facility] [address] [place] [address] Consulting Physician Interventional Cardiology 12/18/21 Pee Villasenor MD [address] [facility] [address] [place] [address] Consulting Physician Obstetrics and Gynecology 12/26/21 documented as of this encounter
--- OUTSIDE RECORDS SUMMARY | 2024-07-11 12:26 | XMS_ITS | Encounter Summary ---
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
--- OUTSIDE RECORDS SUMMARY | 2024-07-11 12:26 | XMS_ITS | Encounter Summary ---
Author Organization [facility] Healthcare Address [address] [place] [address] Care Team Providers Care Munitions Worker Name Role Phone Baldomero Dominguez MD Primary Care Provider [phone] Lane Gonzalez MD Unavailable [phone] Pee Villasenor MD Unavailable [phone] Encounter Details Date Type Department Care Team (Late st Contact Info) Description 06/08/2022 Telephone Obstetrics and Gynecology Clinic [address] [facility] 3rd Floor [address] [place] [address] Paulina Saenz RN Social History [...] on file Legal Sex Female 1:19 PM SR TECHNICAL SALES CONSULTANT Gender Identity Not on file Sexual Orientation Not on file documented as of this encounter Miscellaneous Notes * Telephone Encounter - Paulina Martinez RN - 06/08/2022 5:29 PM CST RN received pathology slides in mail. Will send to [facility] for review. TECHNICAL SALES CONSULTANT documented in this encounter Plan of Treatment Not on file documented as of this encounter Results * Surgical pathology (06/11/2022 11:46 AM SR TECHNICAL SALES CONSULTANT) Tissue (Miscellaneous) 06/11/2022 11:46 AM SR TECHNICAL SALES CONSULTANT 06/11/2022 11:46 AM SR TECHNICAL SALES CONSULTANT Narrative [facility] - 06/12/2022 3:49 PM SR TECHNICAL SALES CONSULTANT EPIC results best viewed via link to PDF [facility] Pathology Consult Service Sheila Dacosta [address], [address], [place] [address] Note to Patients: This report [...] SURGICAL PATHOLOGY REPORT * Consult Report * [facility] is providing an additional review of previously collected tissue. FINAL Patient Name: ??DERRICK STEVENS Address: ??[address] , ?[place], [place] ??[address] Gender: ??F : ??1965 (Age: 56) Hospital #: ??[id number] Patient Type: ??[facility] Location: ??CAM05 Taken: ??06/11/2022 Received: ??06/11/2022 Accessioned: ??06/11/2022 Reported: ??06/12/2022 Physician(s): Angeline Alvarado Jr., M.D. [facility] Pathology, [facility] Department of Pathology [address] [place] [address] P: [phone] F: [phone] FED EX [id number] Diagnosis: Consult material received from [place], [place] (OSC: [id number]; 12/26/2021) A. Uterus, [...] Received for review are twelve slides labeled [id number], accompanied by a corresponding pathology report. The material originates from [place], [place]. Selected slide(s) may be digitally scanned for our files, and all materials are returned to the referring institution, along with a copy of our final report. Any testing required for diagnostic purposes was performed in the Department of Pathology and Immunology at [facility], [address] [place] [address]. [place] [address] CLIA # [id number] The performance characteristics of the testing cited in this report (if any) were determined by the ??[facility] Department of Pathology and Immunology [facility], as part of an ongoing chemistry quality control analyst program and in compliance with federally [...] and the performance characteristics determined by the [facility], [facility] Department of Pathology and Immunology. ??It has not been cleared or approved by the U.S. Food and Drug Administration. ??Any test designated as LDT was developed and its performance characteristics determined by [facility]. It has not been cleared or approved by the FDA. This test is used for clinical purposes and should not be regarded as investigational or for research. Report images and/or scanned reports, if included, only viewable in PDF version of report. us Angeline Alvarado MD LAB PATHOLOGY ORDERABLE S Final Result [facility] [address] [address] documented in this encounter Visit Diagnoses Diagnosis Endometrial hyperplasia with atypia- Primary Endometrial hyperplasia with atypia documented in this encounter Care Teams Munitions Worker Relationship Specialty Start Date End Date Baldomero Dominguez MD PCP - General 01/07/17 Lane Gonzalez MD [address] [facility] [address] [place] [address] Consulting Physician Interventional Cardiology 12/18/21 Pee Villasenor MD [address] [facility] [address] [place] [address] Consulting Physician Obstetrics and Gynecology 12/26/21 documented as of this encounter
--- OUTSIDE RECORDS SUMMARY | 2024-07-11 12:26 | XMS_ITS | Encounter Summary ---
Author Organization [facility] Address [address] [facility] [address] [place] [address] Care Team Providers Care Broodmare Foreman Name Role Phone Baldomero Dominguez MD Primary Care Provider [phone] Lane Gonzalez MD Unavailable [phone] Pee Villasenor MD Unavailable [phone] Encounter Details Date Type Department Care Team (Late st Contact Info) Description 11/19/2022 Telephone [facility] Obstetrical Gynecology [address] 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 Villasenor notknowing the providers at [facility] individually/personally. She states that if we are [...] know Dr Forde but as a whole, mortuary operations manager Oncology at [facility] is top notch. Would sendany family member there. They will order any testing that they feel is necessary to improve her outcome. * Telephone Encounter - Zach Marquez LPN - 11/19/2022 3:55 PM CDT Pt had consultation visit 11/11/22 with [facility] CONCRETE STONE FABRICATOR ONC, per their plan, it looks like [...] on filedocumented in this encounter Care Teams Broodmare Foreman Relationship Specialty Start Date End Date Baldomero Dominguez MD PCP - General 01/07/17 Lane Gonzalez MD [address] [facility] [address] [place] [address] Consulting Physician Interventional Cardiology 12/18/21 Pee Villasenor MD [address] [facility] [place] [address] Consulting Physician Obstetrics and Gynecology 12/26/21 documented as of this encounter
--- OUTSIDE RECORDS SUMMARY | 2024-07-11 12:26 | XMS_ITS | Encounter Summary ---
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 ER HAND documented in this encounter Plan of Treatment Not on file documented as of this encounter Visit Diagnoses Not on filedocumented in this encounter Care Teams Patient Financial Services Specialist Relationship Specialty Start Date End Date Baldomero Dominguez MD PCP - General 01/07/17 Lane Gonzalez MD [address] [facility] [address] [place] [address] Consulting Physician Interventional Cardiology 12/18/21 Pee Villasenor MD [address] [facility] [address] [place] [address] Consulting Physician Obstetrics and Gynecology 12/26/21 documented as of this encounter
--- OUTSIDE RECORDS SUMMARY | 2024-07-11 12:26 | XMS_ITS | Encounter Summary ---
Author Organization [facility] Address [address] [facility] [address] [place] [address] Care Team Providers Care Interlocking And Signal Mechanic Name Role Phone Baldomero Dominguez MD Primary Care Provider [phone] Lane Gonzalez MD Unavailable [phone] Pee Villasenor MD Unavailable Reason for Visit * Reason Comments Discuss D&C results Well Women Visit Encounter Details Date Type Department Care Team (Late st Contact Info) Description 05/21/2022 10:30 AM CDT Office Visit [facility] Obstetrical Gynecology [address] [facility] [address] [place] [address] Pee Villasenor MD [address] [place] [address] [address] [place] [address] Well woman exam (Primary Dx); Screening for [...] on file 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 Exam conducted with a repair miller present. Constitutional: Appearance: She is well-developed. HENT: [...] concern for follow-up. Recommend we refer to payable processor Oncology for further evaluation and treatment. Discussed the importance of follow-up with payable processor Oncology. Discussed the possibility of cancer and/or progression into cancer. She seems to understand and agree. documented in this encounter Plan of Treatment Not on file documented as of this encounter Results * Pap and High Risk HPV, reflex to Genotyping (05/21/2022 11:03 AM CDT) Thin prep (Pap test) 05/21/2022 11:03 AM CDT 05/22/2022 11:03 AM CDT Narrative [facility] - 05/26/2022 1:32 PM CDT [facility] Department of Pathology [address] [place], [place] [id number] Final Report with Addendum Note to Patients: [...] details. Patient Name: ??DERRICK QUESADA Address: ??[address] [facility], ?? [place], [place] [address] Gender: ??F : ??1965 (Age: 56) Service: ??Laboratory Location: ?? Hospital #: ??[id number] Patient Type: ??[facility] SPECIMEN Taken: ??05/21/2022 Received: ??05/22/2022 Accessioned:: ??05/25/2022 Reported: ??05/26/2022 Physician(s): Pee Villasenor M.D. [facility] Diagnosis: Source of Specimen: ? SCREENING [...] determined by the Surgical Pathology Department at [facility] as part of an ongoing quality nurse program and in compliance with federally mandated [...] characteristics determined by the Surgical Pathology Department [facility]. ??It has not been cleared or approved by the U. S. Food and Drug Administration. Pee Villasenor MD LAB CYTOLOGY ORDERABLES Final Result [facility] documented in this encounter Visit Diagnoses [...] 11/26/2022 added in this encounter Care Teams Interlocking And Signal Mechanic Relationship Specialty Start Date End Date Baldomero Doimnguez MD PCP - General 01/07/17 Lane Gonzalez MD [address] [facility] [address] [place] [address] Consulting Physician Interventional Cardiology 12/18/21 Pee Villasenor MD [address] [facility] [address] [place] [address] Consulting Physician Obstetrics and Gynecology 12/26/21 documented as of this encounter
--- OUTSIDE RECORDS SUMMARY | 2024-07-11 12:26 | XMS_ITS | Encounter Summary ---
Author Organization [facility] Address [address] [facility] [address] [place] [address] Care Team Providers Care Signal Operator Technical Name Role Phone Baldomero Dominguez MD Primary Care Provider [phone] Lane Gonzalez MD Unavailable [phone] Pee Villasenor MD Unavailable [phone] Reason for Visit * Reason Comments Questions [...] Description 12/02/2022 1:15 PM CDT Office Visit [facility] Obstetrical Gynecology [address] [facility] [address] [place] [phone] Pee Villasenor MD [address] 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 Patient agrees to this. Also discussed change in pathology interpretation was made it appears in May of 2022. Assuming that this was made at the request of manager competitive intelligence Oncology. Discussed documentation of all visits made and missed. Discussed the s taging of endometrial cancer which requires her upcoming surgical procedure. All questions answeredand understood. Highly, highly recommend that she keep her surgical date. She agrees. Time spent onthis visit approximately 45 minutes. *This note is dictated using You[employer] voice recognition software, variances in spelling and [...] 11/02/2023 added in this encounter Care Teams Signal Operator Technical Relationship Specialty Start Date End Date Baldomero Dominguez MD PCP - General 01/07/17 Lane Gonzalez MD [address] [facility] [address] [place] [address] Consulting Physician Interventional Cardiology 12/18/21 Pee Villasenor MD [address] [facility] [address] [place] [address] Consulting Physician Obstetrics and Gynecology 12/26/21 documented as of this encounter
--- OUTSIDE RECORDS SUMMARY | 2024-07-11 12:26 | XMS_ITS | Encounter Summary ---
Author Organization [facility] Address [address] [place] [address] Phone Care Team Providers Care Advertising Display Rotator Name Role Phone Baldomero Dominguez MD Primary Care Provider [phone] Lane Gonzalez MD Unavailable [phone] Pee Villasenor MD Unavailable [phone] Encounter Details Date Type Department Care Team (Late st Contact Info) Description 06/11/2022 Orders Only [facility] [address] [place] [address] Angeline Alvarado MD [address] [place] [phone] [place] [address] Endometrial hyperplasia with atypia Social History Tobacco [...] on file Legal Sex Female 1:19 PM GIMP TACKER Gender Identity Not on file Sexual Orientation Not on file documented as of this encounter Plan of Treatment Not on file documented as of this encounter Procedures Procedure Name Priority Date/Time Associated Diagnosis Comments SURGICAL PATHOLOGY Routine 06/11/2022 11 :46 AM GIMP TACKER Endometrial hyperplasia with atypia documented in this encounter Results * Surgical pathology (06/11/2022 11:46 AM GIMP TACKER) Tissue (Miscellaneous) 06/11/2022 11:46 AM GIMP TACKER 06/11/2022 11:46 AM GIMP TACKER Narrative [facility] - 06/12/2022 3:49 PM GIMP TACKER EPIC results best viewed via link to PDF [facility] Pathology Consult Service Sheila Dacosta [address], [address], [place], [place] [address] Note to Patients: This report may contain [...] SURGICAL PATHOLOGY REPORT * Consult Report * [facility] is providing an additional review of previously collected tissue. FINAL Patient Name: ??DERRICK QUESADA Helen Address: ??[address] , ?[place], [place] ??[address] Gender: ??F : ??1965 (Age: 56) Hospital #: ??[id number] Patient Type: ??[facility] Location: ??CAM05 Taken: ??06/11/2022 Received: ??06/11/2022 Accessioned: ??06/11/2022 Reported: ??06/12/2022 Physician(s): Angeline Alvarado Jr., M.D. [facility] Pathology, [facility] Department of Pathology [address] [place] [address] P: [phone] F: [phone] FED EX [id number] Diagnosis: Consult material received from [place], [place] (OSC: [id number]; 12/26/2021) A. Uterus, [...] Received for review are twelve slides labeled [id number], accompanied by a corresponding pathology report. The material originates from [place], [place]. Selected slide(s) may be digitally scanned for our files, and all materials are returned to the referring institution, along with a copy of our final report. Any testing required for diagnostic purposes was performed in the Department of Pathology and Immunology at [facility], [address] [place] [address] CLIA # [id number] The performance characteristics of the testing cited in this report (if any) were determined by the ??[facility] Department of Pathology and Immunology [facility], as part of an ongoing auditor/quality program and in compliance with federally mandated [...] and the performance characteristics determined by the [facility], [facility] Department of Pathology and Immunology. ??It has not been cleared or approved by the U.S. Food and Drug Administration. ??Any test designated as LDT was developed and its performance characteristics determined by [facility]. It has not been cleared or approved by the FDA. This test is used for clinical purposes and should not be regarded as investigational or for research. Report images and/or scanned reports, if included, only viewable in PDF version of report. us Angeline Alvarado MD LAB PATHOLOGY ORDERABLE S Final Result [facility] [address] [address] documented in this encounter Visit Diagnoses Diagnosis Endometrial hyperplasia with atypia documented in this encounter Care Teams Advertising Display Rotator Relationship Specialty Start Date End Date Baldomero Dominguez MD PCP - General 01/07/17 Lane Gonzalez MD [address] [facility] [address] [place] [address] Consulting Physician Interventional Cardiology 12/18/21 Pee Villasenor MD [address] [facility] [address] [place] [address] Consulting Physician Obstetrics and Gynecology 12/26/21 documented as of this encounter
--- OUTSIDE RECORDS SUMMARY | 2024-07-11 12:26 | XMS_ITS | Encounter Summary ---
Author Organization [facility] Address [address] [place] [address] Care Team Providers Care Pipe Or Steam Fitter Furnace Installer Name Role Phone Baldomero Dominguez MD Primary Care Provider [phone] Lane Gonzalez MD Unavailable [phone] Pee Villasenor MD Unavailable [phone] Encounter Details Date Type Department Care Team (Late st Contact Info) Description 06/29/2022 Telephone [facility] Obstetrical Gynecology [address] [place] [address] Pee Villasenor MD [address] [place] [address] [address] [place] [address] Social History Tobacco Use Types [...] file Legal Sex Female 1:19 PM SUPERVISOR DRYING AND WINDING Gender Identity Not on file Sexual Orientation [...] with last office note and pathology results. RVISOR DRYING AND WINDING * Telephone Encounter - Pee Villasenor MD - 06/29/2022 5:24 PM SUPERVISOR DRYING AND WINDING Please RVISOR DRYING AND WINDING * Telephone Encounter - Zach Marquez LPN - 06/29/2022 5:03 PM CST FYI - would you like for me to reach out to the pt? RVISOR DRYING AND WINDING RVISOR DRYING AND WINDING * Telephone Encounter - Julia Mac MA - 06/29/2022 4:29 PM CST Last WWE/OV:05/21/22 Next WWE/OV:none Pt was referred to [facility] CPA TAX/ONC for follow up of atypical endometrial hyperplasia. She had an appointment on 06/24/22 but no showed. They are cancelling the referral, ok to reach back out with new referral if patient wants to reschedule. Preferred Communication: My Chart / Phone RVISOR DRYING AND WINDING documented in this encounter Plan of Treatment Not on file documented as of this encounter Visit Diagnoses Diagnosis Atypical endometrial hyperplasia- Primary documented in this encounter Care Teams Pipe Or Steam Fitter Furnace Installer Relationship Specialty Start Date End Date Baldomero Dominguez MD PCP - General 01/07/17 Lane Gonzalez MD [address] [place] [address] Consulting Physician Interventional Cardiology 12/18/21 Pee Villasenor MD [address] [place] [address] Consulting Physician Obstetrics and Gynecology 12/26/21 documented as of this encounter
--- OUTSIDE RECORDS SUMMARY | 2024-07-11 12:26 | XMS_ITS | Encounter Summary ---
Author Organization [facility] Address [address] [place] [address] Phone Care Team Providers Care Peanut Sorter Name Role Phone Baldomero Dominguez MD Primary Care Provider [phone] Lane Gonzalez MD Unavailable Pee Villasenor MD Unavailable [phone] Encounter Details Date Type Department Care Team (Late st Contact Info) Description 12/02/2022 Documentation [facility] Obstetrics and Gynecology [address] [facility] Advanced Medicine 13th [place] [address] [place] [id number] Zack Lynn MD [address] [address] Social History Tobacco Use Types Packs/Day Years [...] on file 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 Zack Lynn MD Business Unit Leader Fellow documented in this encounter Plan of Treatment Not on file documented as of this encounter Visit Diagnoses Not on filedocumented in this encounter Care Teams Peanut Sorter Relationship Specialty Start Date End Date Baldomero Dominguez MD PCP - General 01/07/17 Lane Gonzalez MD [address] [place] [address] Consulting Physician Interventional Cardiology 12/18/21 Pee Villasenor MD [address] [place] [address] Consulting Physician Obstetrics and Gynecology 12/26/21 documented as of this encounter
--- OUTSIDE RECORDS SUMMARY | 2024-07-11 12:26 | XMS_ITS | Encounter Summary ---
Author Organization [facility] Address [address] [place] [address] Care Team Providers Care Community Resource Officer Name Role Phone Baldomero Dominguez MD Primary Care Provider [phone] Lane Gonzalez MD Unavailable [phone] Pee Villasenor MD Unavailable [phone] Encounter Details Date Type Department Care Team (Late st Contact Info) Description 11/19/2022 Telephone [facility] Obstetrical Gynecology [address] [facility] [address] [place] [address] Pee Villasenor MD [address] [facility] [address] [address] Social History Tobacco Use [...] on file Legal Sex Female 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 Pt given number to [facility] HOME HEALTH REGISTERED NURSE ONC. * Telephone Encounter - Annabelle Mancera - 11/19/2022 10:00 AM CDT Last WWE/OV: Next WWE/OV: Symptom(s):Patient need number to referral of swinging cut off saw operator oncology. Preferred Communication: My Chart / Phone documented in this encounter Plan of Treatment Not on file documented as of this encounter Visit Diagnoses Not on filedocumented in this encounter Care Teams Community Resource Officer Relationship Specialty Start Date End Date Baldomero Dominguez MD PCP - General 01/07/17 Lane Gonzalez MD [address] [facility] [address] [place] [address] Consulting Physician Interventional Cardiology 12/18/21 Pee Villasenor MD [address] [facility] [address] [place] [address] Consulting Physician Obstetrics and Gynecology 12/26/21 documented as of this encounter
--- OUTSIDE RECORDS SUMMARY | 2024-07-11 12:26 | XMS_ITS | Encounter Summary ---
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 Patient not available at this time. RN scheduled patient and has sent new patient paperwork and appointment details to address on file. Please confirm appointment date and time if patient returns call. LIFEGUARD documented in this encounter Plan of Treatment Not on file documented as of this encounter Visit Diagnoses Not on filedocumented in this encounter Care Teams Field Auditor Relationship Specialty Start Date End Date Baldomero Dominguez MD PCP - General 01/07/17 Lane Gonzalez MD [address] [facility] [address] [place] [address] Consulting Physician Interventional Cardiology 12/18/21 Pee Villasenor MD [address] [address] [place] [address] Consulting Physician Obstetrics and Gynecology 12/26/21 documented as of this encounter
--- OUTSIDE RECORDS SUMMARY | 2024-07-11 12:26 | XMS_ITS | Encounter Summary ---
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 Patient had no questions at this time RN confirmed clinic number with patient. GER ANALYTICAL documented in this encounter Plan of Treatment Not on file documented as of this encounter Visit Diagnoses Not on filedocumented in this encounter Care Teams Sales Outfitter Relationship Specialty Start Date End Date Baldomero Dominguez MD PCP - General 01/07/17 Lane Gonzalez MD [address] [facility] [address] [place] [address] Consulting Physician Interventional Cardiology 12/18/21 Pee Villasenor MD [address] [facility] [address] [place] [address] Consulting Physician Obstetrics and Gynecology 12/26/21 documented as of this encounter
--- OUTSIDE RECORDS SUMMARY | 2024-07-11 12:27 | XMS_ITS | Encounter Summary ---
Author Organization [facility] Healthcare Address [address] [place] [address] Care Team Providers Care Customer Relations Representative Name Role Phone Baldomero Dominguez MD Primary Care Provider [phone] Jaciel Melo MD Unavailable [phone] Encounter Details Date Type Department Care Team (Late st Contact Info) Description 03/28/2021 4:45 PM CDT Lab [address] [address] At increased risk of exposure to COVID-19 virus Social History Tobacco Use Types Packs/Day Years Used Date Smoking Tobacco: Never Smokeless Tobacco: Never Alcohol Use Standard Drinks/Week Comments Yes 0 (1 standard drink = 0.6 oz pur e alcohol) occasional wine Comments No Sex and Gender Information Value Date Recorded Sex Assigned at Not on file Legal 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 ??Testing performed by the [facility] Molecular Infectious Disease Laboratory. The 2019-Novel Coronavirus [...] August 29, 2020. Employeed in healthcare? Yes [facility] status? No [facility] Group care resident? No [facility] Hospitalized? No [facility] Is patient in ICU? No [facility] Symptomatic as defined by CDC? Yes [facility] Nasopharyngeal 03/28/2021 1: 06 PM CDT 03/28/2021 5:53 PM CDT N[facility]ative [facility] - 03/29/2021 2:16 AM CDT Patient is employed by/enrolled at:->[employer] What is the reason for testing?->Symptoms of COVID-19 in low-risk group (batch) Date of Symptom Onset->03/28/21 Dedra López MD LAB MICROBIOLOGY - GENERAL ORDERABLES Final Result [facility] Department [place] [address] documented in this encounter Visit Diagnoses Diagnosis At increased risk of exposure to COVID-19 virus documented in this encounter Additional Health Concerns Infection Onset Date Last Indicated Resolved Time COVID: Suspected 03/28/2021 03/28/2021 04/11/2021 3:05 AM CDT documented as of this encounter Care Teams Customer Relations Representative Relationship Specialty Start Date End Date Baldomero Dominguez MD PCP - General 01/07/17 Jaciel Melo MD Actionscript Developer Cardiovascular Disease 04/12/19 2 documented as of this encounter
--- OUTSIDE RECORDS SUMMARY | 2024-07-11 12:27 | XMS_ITS | Encounter Summary ---
Author Organization [facility] Address [address] [place] [address] Care Team Providers Care Air Crew Supervisor Name Role Phone Baldomero Dominguez MD Primary Care Provider [phone] Lane Gonzalez MD Unavailable [phone] Pee Villasenor MD Unavailable Reason for Visit * Auth/Cert Specialty Diagnoses / Procedures Referred By Vianca montiel Referred To Contact Diagnoses Abnormal uterine and vaginal bleeding, unspecified Abnormal uterine and vaginal bleeding, unspecified [N93.9] Procedures FL HYSTEROSCOPY,W/ENDO BX HYSTEROSCOPY, DILATION AND CURETTAGE POSSIBLE MYOSURE Referral ID Status Reason Start Date Expiration Date Visits Re quested Visits Authorized [id number] 1 1 Encounter Details Date Type Department Care Team (Late st Contact Info) Description 12/26/2021 7:30 AM CDT - 12/26/2021 8:45 AM CDT Surgery [address] [address] Pee Villasenor MD [address] [facility] [address] [address] HYSTEROSCOPY, DILATION AND CURETTAGE WITH ENDOMETRIAL POLYPECTOMY [...] on file Legal Sex Female 1:19 PM DIAL MOUNTER Gender Identity Not on file Sexual Orientation [...] encounter Medications at Time of Discharge multivit vwehfilt-dvcr-DE -calcium (THERA-M) 9 mg iron-400 mcg tablet [...] breakfast 12/25/2021 at Unknown time ??? multivit pjltbfkq-jyih-KI-calcium (THERA-M) 9 mg iron-400 mcg tablet Take [...] MD - Primary Anesthesiologist: Robby Paredes DO BLEACH ANALYST: Eduardo Ryan CRNA Fire Investigation Lieutenant: Kellie Vale RN Scrub: Coral Garcia CRNFA Fire Investigation Lieutenant Second: Jolly Vásquez RN DATE OF SURGERY [...] from the original note were not included. [address] [address] Surgery Reminder Checklist: Please arrive to [facility]'s Outpatient Surgery Department for scheduled surgeryon [...] take TYLENOL (ACETAMINOPHEN) as needed for pain. [place] your teeth morning of procedure. Use mouth [...] The Specimen collection site is located at [facility] - [address] [place] [address] in [place], [place]. Please use Entrance A. Turn to [...] please call the Admission Testing Center at [phone]. documented in this encounter Plan of Treatment [...] Endometrial) 12/26/2021 7:57 AM CDT Narrative [facility] - 12/29/2021 12:14 PM CDT [facility] Department of Pathology [address] [place] [address] ?? Note to Patients: ??This report may [...] ??1965 (Age: 56) Gender: ??F Address: ??[address] [place], [place] [address] [facility] #: [id number] Service: Surgery Location: Patient Type: [facility] OUTPATIENT ? Taken: 12/26/2021 Received: 12/26/2021 [...] LAB PATHOLOGY ORDERABLE S Final Result [facility] * POCT hCG, urine (12/26/2021 6:16 AM [...] ALICIA Base excess, kristine POC 5 mmol/L [facility] Comment: Interpretive Data No reference range established. Current interpretive data was last revised 2020. Hemoglobin, kristine POC 13.6 11.9 - 15.5 g/dL [facility] Hematocrit, kristine POC 40.0 35.6 - 45.5 % [facility] Sodium, kristine POC 141 135 - 145 mmol/L [facility] Potassium, kristine POC 3.9 3.3 - 4.9 mmol/L [facility] Comment: Interpretive Data Unable to assess hemolysis, Invitro hemolysis causes falsely elevated potassium. Current interpretive data was last revised on 2020. Glucose, kristine POC 94 70 - 199 mg/dL [facility] Ionized Calcium, kristine POC 5.10 4.50 - 5.20 mg/dL [facility] Blood 12/26/2021 6:05 AM CDT 12/26/2021 6:05 AM CDT Pee Villasenor MD LAB POCT ORDERABLES - D EVICE Final Result Performing Organization Address City/State/[facility] Co de Phone Number [facility] [address] [facility] [place] [address] documented in this encounter Visit Diagnoses Diagnosis [...] 12/26/2021 documented in this encounter Care Teams Air Crew Supervisor Relationship Specialty Start Date End Date Baldomero Dominguez MD PCP - General 01/07/17 Lane Gonzalez MD [address] [facility] [address] [place] [address] Consulting Physician Interventional Cardiology 12/18/21 Pee Villasenor MD [address] [facility] [address] [place] [address] Consulting Physician Obstetrics and Gynecology 12/26/21 documented as of this encounter
--- OUTSIDE RECORDS SUMMARY | 2024-07-11 12:27 | XMS_ITS | Encounter Summary ---
Author Organization [facility] Healthcare Address [address] [place] [address] Care Team Providers Care Turbo Electric Operator Name Role Phone Baldomero Dominguez MD Primary Care Provider [phone] Lane Gonzalez MD Unavailable [phone] Pee Villasenor MD Unavailable [phone] Reason for Referral * Diagnostic Imaging (Routine) - Closed Specialty Diagnoses / Procedures Referred By Vianca montiel Referred To Contact Diagnoses Acute pain of left knee Procedures Injection Knee Left Arthro Only Torsten Katz MD [address] [facility] [facility] [address] [place] [address] Phone: tel: fax: [address] [address] Referral ID Status Reason Start Date Expiration Date Visits Re quested Visits Authorized [id number] Closed 02/24/2022 03/26/2023 1 1 Reason for Visit * Diagnostic Imaging (Routine) - Closed Specialty Diagnoses / Procedures Referred By Contac t Referred To Contact Diagnoses Acute pain of left knee Procedures Injection Knee Left Arthro Only Torsten Katz MD [address] [facility] [address] [place] [address] Phone: tel: fax: [address] [address] Referral ID Status Reason Start Date Expiration Date Visits Re quested Visits Authorized [id number] Closed 02/24/2022 03/26/2023 1 1 Encounter Details Date Type Department Care Team (Latest Contact Info) Description 03/31/2022 1:00 PM CDT - 03/31/2022 1:44 PM CDT Hospital Encounter [facility] Diagnostic Imaging [address] [place] [address] Acute pain of left knee Discharge [...] on file Legal Sex Female 1:19 PM 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 Gender Identity Not on file Sexual Orientation Not on file documented as of this encounter Medications at Time of Discharge multivit mpzexluc-ebik-MX -calcium (THERA-M) 9 mg iron-400 mcg tablet [...] D: ??04/01/2022 10:01 AM T: Report ID: [id number] [place] Location: ??[id number] Procedure Note Warner Magdaleno MD - 04/01/2022 [...] signed by Warner ROSAS T: Report ID: [id number] Reading Location: [id number] Torsten Katz MD IMG XR PROCEDURES [...] 03/31 documented in this encounter Care Teams Turbo Electric Operator Relationship Specialty Start Date End Date Baldomero Dominguez MD PCP - General 01/07/17 Lane Gonzalez MD [facility] [facility] [address] [place] [address] Consulting Physician Interventional Cardiology 12/18/21 Pee Villasenor MD [address] [facility] [place] [address] Consulting Physician Obstetrics and Gynecology 12/26/21 documented as of this encounter
--- OUTSIDE RECORDS SUMMARY | 2024-07-11 12:27 | XMS_ITS | Encounter Summary ---
Author Organization [facility] Address [address] [facility] [address] [place] [address] Care Team Providers Care Spiral Weaver Name Role Phone Baldomero Dominguez MD Primary Care Provider [phone] Jaciel Melo MD Unavailable [phone] Encounter Details Date Type Department Care Team (Late st Contact Info) Description 11/25/2021 Orders Only [facility] Obstetrical Gynecology [address] [facility] [address] [place] [address] Pee Villasenor MD [address] 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 ??Testing performed by the [facility] Molecular Infectious Disease Laboratory. The 2019-Novel [...] on August 29, 2020. Testing performed by: [facility], [address] [place]., [address] Nasopharyngeal 12/23/2021 1: 55 PM CDT 12/23/2021 4:21 PM CDT Narrative [facility] - 12/24/2021 1:09 AM CDT Is the patient experiencing any symptoms consistent with COVID (eg. Fever, cough, shortness of breath)?->Unsure due to altered mental status What is the reason for testing?->Screening prior to surgery or scheduled??procedure??(Batched) Pee Villasenor MD LAB MICROBIOLOGY - [facility] ORDERABLES Final Result [facility] [address] [facility] Department [place] [address] documented in this encounter Visit Diagnoses Diagnosis Surgery, elective- Primary Unspecified elective surgery for purposes other than remedying health states Surgery, elective Unspecified elective surgery for purposes other than remedying health states documented in this encounter Additional Health Concerns Infection Onset Date Last Indicated Resolved Time COVID: Suspected 11/25/2021 12/23/2021 11/26/2021 3:05 AM CDT documented as of this encounter Care Teams Spiral Weaver Relationship Specialty Start Date End Date Baldomero Dominguez MD PCP - General 01/07/17 Jaciel Melo MD Gun Sealing Machine Operator Cardiovascular Disease 04/12/19 2 documented as of this encounter
--- OUTSIDE RECORDS SUMMARY | 2024-07-11 12:27 | XMS_ITS | Encounter Summary ---
Author Organization [facility] Address [address] [facility] [address] [place] [address] Care Team Providers Care Product Operations Associate Name Role Phone Baldomero Dominguez MD Primary Care Provider [phone] Jaciel Melo MD Unavailable [phone] Encounter Details Date Type Department Care Team (Late st Contact Info) Description 02/17/2021 Orders Only [facility] Pulmonology [address] [facility] [address] [place] [address] Cristina Sams LPN Social History Tobacco Use Types Packs/Day Years Used Date Smoking Tobacco: Never Smokeless Tobacco: Never Alcohol Use Standard Drinks/Week Comments Yes 0 (1 standard drink = 0.6 oz pur e alcohol) occasional wine Comments No Sex and Gender Information Value Date Recorded Sex Assigned at Not on file Legal Sex Female 1:19 PM INSPECTOR ROUGH CASTINGS Gender Identity Not on file Sexual Orientation Not on file documented as of this encounter Progress Notes * Cristina Hamilton LPN - 02/17/2021 8:32 AM CDT covid testing ordered. documented in this encounter Plan of Treatment Not on file documented as of this encounter Visit Diagnoses Not on filedocumented in this encounter Care Teams Product Operations Associate Relationship Specialty Start Date End Date Baldomero Dominguez MD PCP - General 01/07/17 Jaciel Melo MD Kst Operator Cardiovascular Disease 04/12/19 2 documented as of this encounter
--- OUTSIDE RECORDS SUMMARY | 2024-07-11 12:27 | XMS_ITS | Encounter Summary ---
Author Organization [facility] Address [address] [place] [address] Care Team Providers Care Rn Document Improvement Specialist Name Role Phone Baldomero Dominguez MD Primary Care Provider [phone] Jaciel Melo MD Unavailable [phone] Encounter Details Date Type Department Care Team (Late st Contact Info) Description 02/17/2021 Orders Only [facility] Testing Site - [address] [place] [address] Chico Richards MD [address] [facility] [address] [address] Pre-operative laboratory examination (Primary Dx) Social History Tobacco Use Types Packs/Day Years Used Date Smoking Tobacco: Never Smokeless Tobacco: Never Alcohol Use Standard Drinks/Week Comments Yes 0 (1 standard drink = 0.6 oz pur e alcohol) occasional wine Comments No Sex and Gender Information Value Date Recorded Sex Assigned at Not on file Legal Sex Female 1:19 PM 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 Class: Internal Referral Ordering User: Cristina Hamilton LPN Auth Provider: CHICO RICHARDS Provider: Cristina Hamilton LPN Diagnosis: ?? Department[facility] [place] [place] [facility] ?? Comment: pft 03/04/2021 Order Specific Questions Question Answer Comment Testing types: Pre-procedure ?? Date of Px/chemo/treatment/placement/transfer 03/04/2021 ?? Testing site patient will be sent to: [facility]ator[facility] ?? Date testing requested: 03/01/2021 ?? Testing: COVID-19 RNA ?? Does the patient currently work in a healthcare facility with direct patient contact? Unknown ?? Is the patient a resident of a congregate care or living setting? Unknown ?? Is the patient ? No ?? Please select the performing region: [facility] documented in this encounter Miscellaneous Notes * Addendum Note - Montse Manley MA - 02/17/2021 8:42 AM CDTAddended by: MONTSE MANLEY on: 03/28/2021 11:29 AM Modules accepted: Orders * Addendum Note - Edward Santos - 02/17/2021 8:42 AM CDTAddended by: EDWARD SANTOS on: 03/28/2021 01:05 PM Modules accepted: Orders documented in this encounter Plan of Treatment Not on file documented as of this encounter Visit Diagnoses Diagnosis Pre-operative laboratory examination- Primary Pre-procedural laboratory examination documented in this encounter Additional Health Concerns Infection Onset Date Last Indicated Resolved Time COVID: Suspected 03/28/2021 03/28/2021 04/11/2021 3:05 AM CDT documented as of this encounter Care Teams Rn Document Improvement Specialist Relationship Specialty Start Date End Date Baldomero Dominguez MD PCP - General 01/07/17 Jaciel Melo MD Compressor Assembler Cardiovascular Disease 04/12/19 2 documented as of this encounter
--- OUTSIDE RECORDS SUMMARY | 2024-07-11 12:27 | XMS_ITS | Encounter Summary ---
Author Organization [facility] Address [address] [place] [address] Phone Care Team Providers Care Assistant Editor Name Role Phone Baldomero Dominguez MD Primary Care Provider [phone] Jaciel Melo MD Unavailable [phone] Encounter Details Date Type Department Care Team (Late st Contact Info) Description 02/17/[address] 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 * Telephone Encounter - Olga Grayson CMA - 02/20/2021 1:28 PM CDT Can you please call the pt with sleep results. She is confused and stated that she was told by someone that she does not reach dream stage while sleeping. * Telephone Encounter - Olga Grayson CMA - 02/20/2021 11:00 AM CDT Received order, order and notes faxed via [employer] to [facility]. I have asked [facility] to expedite the order. * Telephone Encounter [...] filedocumented in this encounter Care Teams Assistant Editor Relationship Specialty Start Date End Date Baldomero Dominguez MD PCP - General 01/07/17 Jaciel Melo MD Credit Coordinator Cardiovascular Disease 04/12/19 2 documented as of this encounter
--- OUTSIDE RECORDS SUMMARY | 2024-07-11 12:27 | XMS_ITS | Encounter Summary ---
Author Organization [facility] Address [address] [place] [address] Phone Care Team Providers Care End Maker Name Role Phone Baldomero Dominguez MD Primary Care Provider [phone] Jaciel Melo MD Unavailable [phone] Encounter Details Date Type Department Care Team (Late st Contact Info) Description 03/11/2021 Telephone [facility] Neuro Sleep [address] 6[address] [place] [address] Raquel Stephens RMA Social History Tobacco Use Types Packs/Day Years Used Date Smoking Tobacco: Never Smokeless Tobacco: Never Alcohol Use Standard Drinks/Week Comments Yes 0 (1 standard drink = 0.6 oz pur e alcohol) occasional wine Comments No Sex and Gender Information Value Date Recorded Sex Assigned at Not on file Legal Sex Female 1:19 PM VENDOR QUALITY 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
--- OUTSIDE RECORDS SUMMARY | 2024-07-11 12:27 | XMS_ITS | Encounter Summary ---
Author Organization [facility] Address [address] [place] [address] Phone Care Team Providers Care Comptometrist Name Role Phone Baldomero Dominguez MD Primary Care Provider [phone] Jaciel Melo MD Unavailable Encounter Details Date Type Department Care Team (Late st Contact Info) Description 02/20/2021 Orders Only [facility] Neuro Sleep [address] 6[address] [place] [address] Igor Rapp, PA [address] [place] [address] TRACE (obstructive sleep apnea) (Primary Dx) Social History Tobacco Use Types Packs/Day Years Used Date Smoking Tobacco: Never Smokeless Tobacco: Never Alcohol Use Standard Drinks/Week Comments Yes 0 (1 standard drink = 0.6 oz pur e alcohol) occasional wine Comments No Sex and Gender Information Value Date Recorded Sex Assigned at Not on file Legal Sex Female 1:19 PM 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 Gender Identity Not on file Sexual Orientation Not on file documented as of this encounter Plan of Treatment Not on file documented as of this encounter Visit Diagnoses Diagnosis TRACE (obstructive sleep apnea)- Primary Obstructive sleep apnea (adult) (pediatric) documented in this encounter Orders General Supply Count Last Ordered Date First Or dered Date CPAP THERAPY 1 02/20/2021 documented in this encounter Care Teams Comptometrist Relationship Specialty Start Date End Date Baldomero Dominguez MD PCP - General 01/07/17 Jaciel Melo MD Peoplesoft Taleo Manager Cardiovascular Disease 04/12/19 2 documented as of this encounter
--- OUTSIDE RECORDS SUMMARY | 2024-07-11 12:27 | XMS_ITS | Encounter Summary ---
Author Organization [facility] Healthcare Address [address] [place] [address] Care Team Providers Care Mainspring Former Arbor End Name Role Phone Baldomero Dominguez MD Primary Care Provider Lane Gonzalez MD Unavailable [phone] Encounter Details Date Type Department Care Team (Late st Contact Info) Description 12/23/2021 1:50 PM CDT Lab [facility] Lab [address] [place] [id number] Surgery, elective Social History Tobacco Use Types [...] file Legal Sex Female 1:19 PM STAFF PHYSICAL THERAPY ASSISTANT Gender Identity Not on file Sexual [...] and NAAT . ??Testing performed by the [facility] Molecular Infectious Disease [facility]. The 2019-Novel Coronavirus [...] on August 29, 2020. Testing performed by: [facility], [address] [facility] [place] [address] Nasopharyngeal 12/23/2021 1: 55 PM CDT 12/23/2021 4:21 PM CDT Narrative ALICIA SALAS - 12/24/2021 1:09 AM CDT Is the patient experiencing any symptoms consistent with COVID (eg. Fever, cough, shortness of breath)?->Unsure due to altered mental status What is the reason for testing?->Screening prior to surgery or scheduled??procedure??(Batched) us Pee Villasenor MD LAB MICROBIOLOGY - GENE RAL ORDERABLES Final Result ALICIA [address] [facility] Department [place] [address] documented in this encounter Visit Diagnoses Diagnosis Surgery, elective Unspecified elective surgery for purposes other than remedying health states documented in this encounter Additional Health Concerns Infection Onset Date Last Indicated Resolved Time COVID: Suspected 12/23/2021 12/23/2021 12/24/2021 1:10 AM CDT documented as of this encounter Care Teams Mainspring Former Arbor End Relationship Specialty Start Date End Date Baldomero Dominguez MD PCP - General 01/07/17 Lane Gonzalez MD [address] [facility] [address] [address] Consulting Physician Interventional Cardiology 12/18/21 documented as of this encounter
--- OUTSIDE RECORDS SUMMARY | 2024-07-11 12:27 | XMS_ITS | Encounter Summary ---
Author Organization [facility] Address [address] [place] [address] Care Team Providers Care General Studies Program Chair Name Role Phone Baldomero Dominguez MD Primary Care Provider [phone] Jaciel Melo MD Unavailable [phone] Encounter Details Date Type Department Care Team (Late st Contact Info) Description 10/03/2021 Telephone [facility] Obstetrical Gynecology [address] [address] Patrick Sánchez MD [address] [address] Social History Tobacco Use Types Packs/Day Years Used Date Smoking Tobacco: Never Smokeless Tobacco: Never Alcohol Use Standard Drinks/Week Comments Yes 0 (1 standard drink = 0.6 oz pur e alcohol) occasional wine Comments No Sex and Gender Information Value Date Recorded Sex Assigned at Not on file Legal Sex Female 1:19 PM FOUNDRY MELT SUPERVISOR Gender Identity Not on file Sexual Orientation Not on file documented as of this encounter Miscellaneous Notes * Telephone Encounter - Deloris Zhou RN - 10/03/2021 9:41 AM CST Patient called for us results. Please see encounter from 10/02 DRY MELT SUPERVISOR documented in this encounter Plan of Treatment Not on file documented as of this encounter Visit Diagnoses Not on filedocumented in this encounter Care Teams General Studies Program Chair Relationship Specialty Start Date End Date Baldomero Dominguez MD PCP - General 01/07/17 Jaciel Melo MD Manufacturing Technology Analyst Cardiovascular Disease 04/12/19 2 documented as of this encounter
--- OUTSIDE RECORDS SUMMARY | 2024-07-11 12:27 | XMS_ITS | Encounter Summary ---
Author Organization [facility] Healthcare Address [address] [place] [address] Care Team Providers Care Nut Grinder Name Role Phone Baldomero Dominguez MD Primary Care Provider [phone] Jaciel Melo MD Unavailable [phone] Encounter Details Date Type Department Care Team (Late st Contact Info) Description 07/09/2021 Telephone [facility] Healthcare Occupatiuonal Health [address] [facility] [address] [facility] [address] (Third Floor) [place] [address] Mana Koenig RN Social History Tobacco Use Types Packs/Day Years Used Date Smoking Tobacco: Never Smokeless Tobacco: Never Alcohol Use Standard Drinks/Week Comments Yes 0 (1 standard drink = 0.6 oz pur e alcohol) occasional wine Comments No Sex and Gender Information Value Date Recorded Sex Assigned at Not on file Legal Sex Female 1:19 PM BOILING HOUSE HAND Gender Identity Not on file Sexual Orientation Not on file documented as of this encounter Miscellaneous Notes * Telephone Encounter - Mana Koenig RN - 07/09/2021 10:16 AM BOILING HOUSE HAND COVID19 test order placed. Asymptomatic. Public health required testing due to exposure. ING HOUSE HAND documented in this encounter Plan of Treatment Not on file documented as of this encounter Visit Diagnoses Diagnosis Exposure to COVID-19 virus- Primary documented in this encounter Care Teams Nut Grinder Relationship Specialty Start Date End Date Baldomero Dominguez MD PCP - General 01/07/17 Jaciel Melo MD Baker Chef Cardiovascular Disease 04/12/19 2 documented as of this encounter
--- OUTSIDE RECORDS SUMMARY | 2024-07-11 12:27 | XMS_ITS | Encounter Summary ---
Author Organization [facility] Healthcare Address [address] [place] [address] Care Team Providers Care Linoleum Floor Installer Name Role Phone Baldomero Dominguez MD Primary Care Provider [phone] Jaciel Melo MD Unavailable [phone] Reason for Visit * Diagnostic Imaging (Routine) - Closed Specialty Diagnoses / Procedures Referred By Vianca montiel Referred To Contact Diagnoses Abnormal uterine bleeding Procedures US Pelvis W Endovaginal US Transvaginal Lei Otto MD [address] [place] [address] Phone: tel: fax: [address] [address] Referral ID Status Reason Start Date Expiration Date Visits Re quested Visits Authorized [id number] Closed 10/02/2021 11/01/2022 1 1 Encounter Details Date Type Department Care Team (Latest Contact Info) Description 10/02/2021 12:40 PM AUTO MECHANIC APPRENTICE - 10/02/2021 11:59 PM AUTO MECHANIC APPRENTICE Hospital Encounter [facility] [address] [place] [address] Abnormal uterine bleeding Discharge Disposition: [...] on file Legal Sex Female 1:19 PM AUTO MECHANIC APPRENTICE Gender Identity Not on file Sexual Orientation Not on file documented as of this encounter Medications at Time of Discharge multivit [id number] lcium (THERA-M) 9 mg iron-400 mcg tablet [...] Read Routine (OP Routine) 10/02/2021 1:52 PM AUTO MECHANIC APPRENTICE Abnormal uterine bleeding documented in this encounter Results * US Pelvis W Endovaginal (10/02/2021 1:52 PM AUTO MECHANIC APPRENTICE) Anatomical Region Laterality Modality Pelvis N/A Ultrasound 10/02/2021 6:24 PM AUTO MECHANIC APPRENTICE Narrative 10/02/2021 6:27 PM AUTO MECHANIC APPRENTICE EXAM DESCRIPTION: ?? US PELVIS W ENDOVAGINAL [...] D: ??10/02/2021 6:27 PM T: Report ID: [id number] Reading Location: ??[id number] Procedure Note Freddy Stokes Jr., MD - [...] by Freddy Stokes M.D. T: Report ID: [id number] Reading Location: [place] [address] us Lei Salvador Otto MD IMG US PROCEDURES Final Re sult documented in this encounter Visit Diagnoses Diagnosis Abnormal uterine bleeding Unspecified disorder of menstruation and other abnormal bleeding from female genital tract documented in this encounter Care Teams Linoleum Floor Installer Relationship Specialty Start Date End Date Baldomero Dominguez MD PCP - General 01/07/17 Jaciel Melo MD Law Tutor Cardiovascular Disease 04/12/19 2 documented as of this encounter
--- OUTSIDE RECORDS SUMMARY | 2024-07-11 12:27 | XMS_ITS | Encounter Summary ---
Author Organization [facility] Healthcare Address [address] [place] [address] Care Team Providers Care Drop Forge Operator Name Role Phone Baldomero Dominguez MD Primary Care Provider [phone] Jaciel Melo MD Unavailable [phone] Reason for Visit * Reason Comments Vaginal Bleeding Encounter Details Date Type Department Care Team (Late st Contact Info) Description 10/01/2021 4:22 PM BOILING HOUSE OILER - 10/01/2021 7:39 PM BOILING HOUSE OILER Emergency [address] [address] Klaudia Diego MD [address] [place] [address] SVT (supraventricular tachycardia) (CMS/HCC) (HCC) (Primary Dx); [...] Legal Sex Female 1:19 PM BOILING HOUSE OILER Gender Identity Not on file Sexual Orientation Not on file documented as of this encounter Last Filed Vital Signs Vital Sign Reading Time Taken Comments Blood Pressure 138/78 10/01/2021 7:32 PM BOILING HOUSE OILER Pulse 77 10/01/2021 7:32 PM BOILING HOUSE OILER Temperature 36.6 ??C (97.9 ??F) 10/01/2021 3:48 PM CS T Respiratory Rate 19 10/01/2021 7:32 PM BOILING HOUSE OILER Oxygen Saturation 100% 10/01/2021 7:32 PM BOILING HOUSE OILER Inhaled Oxygen Concentration - - Weight 91.2 kg (201 lb) 10/01/2021 3:48 PM BOILING HOUSE OILER Height 170.2 cm (5' 7 ) 10/01/2021 3:48 PM BOILING HOUSE OILER Body Mass Index 31.48 10/01/2021 3:48 PM BOILING HOUSE OILER documented in this encounter Discharge Instructions * Discharge Instructions* Klaudia Diego MD - 10/01/2021 7:22 PM BOILING HOUSE OILER ALL OF YOUR LABS ARE UNREMARKABLE YOUR BRIEFLY IN SVT THAT RESOLVED STAY HYDRATED WITH FREQUENT FLUIDS YOUR HEMOGLOBIN HERE IS STABLE. YOUR CASE WAS DISCUSSED WITH OUR ON-CALL CUSTOMER SERVICE AGENT WHO DOES NOT RECOMMENDANYTHING AT THIS TIME OTHER THAN AN OUTPATIENT PELVIC ULTRASOUND AND FURTHER EVALUATION BY CUSTOMER SERVICE AGENT. YOU CAN FOLLOW-UP WITH DR. OCHOA WITH CUSTOMER SERVICE AGENT OR YOUR LAST CUSTOMER SERVICE AGENT DOCTOR YOUR PRIMARY CARE DOCTOR CAN ALSO ORDERED OUTPATIENT PELVIC ULTRASOUND. ING HOUSE OILER documented in this encounter Medications at Time of Discharge multivit aatketyh-lvbf-GZ-ca lcium (THERA-M) 9 mg iron-400 mcg tablet [...] WEAK. ONCE PATIENT ARRIVES TO THE ROOM ASBESTOS CLOTH INSPECTOR APPEAR TO BE NORMAL SINUS, RATE IN [...] oriented to person, place, and time. [facility] ED Course as of 10/01/212018 Time: 10/01 1828 Comment: EKG OBTAINED AT 4:55 P.M.: SUPRAVENTRICULAR TACHYCARDIA, RATE 142, QRS 98, QTC 455, NORMAL AXIS DEVIATION, SLIGHT ST DEPRESSION V2 THROUGH V6. NO OTHER ARRHYTHMIAS. NO OTHER ACUTE ISCHEMIA.INTERVALS OTHERWISE WITHIN By: Klaudia Diego MD Time: 10/01 1836 Comment: REPORT GIVEN TO DR. OCHOA. I THINK DO AT THIS TIME FROM A CUSTOMER SERVICE AGENT STANDPOINT. PATIENT WOULD REQUIRE AN OUTPATIENT WORKUP FOR DYSFUNCTIONAL UTERINE BLEEDING. NO PROGESTERONE TO BE GIVEN OR STARTED THIS TIME. PATIENT STATES THAT SHE HAS IN THE PAST BEEN FOLLOWED BY DR. CHEW WITH CUSTOMER SERVICE AGENT HOWEVER SHE HAS BEEN LOST TO FOLLOW-UP [...] uterine bleeding) Klaudia Diego MD 10/01/21 2019 ING HOUSE OILER * Phyllis Hansen RN - 10/01/2021 5:29 PM CST Hx SVT and anemia. Patient administered iron and Cardizem daily. Denies chest pain, SOB, headache, fever, chills. Phyllis Hansen RN 10/01/21 1730 ING HOUSE OILER * Phyllis Hansen RN - 10/01/2021 5:29 PM CST Endorses dizziness, lightheaded, fatigue since x 14 days of vaginal bleeding. Phyllis Hansen RN 10/01/21 1729 ING HOUSE OILER * Phyllis Hansen RN - 10/01/2021 5:24 [...] with Cardizem. Phyllis Hansen RN 10/01/21 1728 ING HOUSE OILER * Gigi Rosales RN - 10/01/2021 4:53 PM CST EMT reports patient is pale, lightheaded. V/S noted tachycardia. Reclined, IVF started. ING HOUSE OILER * Gigi Rosales RN - 10/01/2021 4:01 PM CST My doctor sent me here.. been bleeding for 14 days.. pad every 30 minutes. Pelvic cramping and heavy vaginal bleeding intermittently. ING HOUSE OILER documented in this encounter Plan of Treatment Not on file documented as of this encounter Procedures Procedure Name Priority Date/Time Associated Diagnosis Comments ECG 12-LEAD Routine 10/01/2021 6:46 PM BOILING HOUSE OILER SEPSIS LACTATE WITH REFLEX STAT 10/01/2021 6:38 PM BOILING HOUSE OILER XR CHEST 1 VIEW ED 10/01/2021 6:10 PM BOILING HOUSE OILER ECG 12-LEAD STAT 10/01/2021 4:55 PM BOILING HOUSE OILER EGFR STAT 10/01/2021 4:09 PM BOILING HOUSE OILER DIFFERENTIAL AUTO STAT 10/01/2021 4:0 9 PM BOILING HOUSE OILER THYROID FUNCTION CASCADE STAT 10/01/2021 4:09 PM BOILING HOUSE OILER CBC WITH AUTO DIFFERENTIAL STAT 10/01/2021 4:09 PM BOILING HOUSE OILER ANTIBODY IDENTIFICATION STAT 10/02/19 22 4:09 PM BOILING HOUSE OILER ABO/RH STAT 10/01/2021 4:09 PM BOILING HOUSE OILER APTT STAT 10/01/2021 4:09 PM BOILING HOUSE OILER PROTIME-INR STAT 10/01/2021 4:09 PM BOILING HOUSE OILER ANTIBODY SCREEN STAT 10/01/2021 4:09 PM BOILING HOUSE OILER HC ANTIBODY SCREEN RBC STAT 4:09 PM BOILING HOUSE OILER HCG, BLOOD, QUANTITATIVE STAT 10/01/2021 4:09 PM BOILING HOUSE OILER MAGNESIUM STAT 10/01/2021 4:09 PM BOILING HOUSE OILER COMPREHENSIVE METABOLIC PANEL STAT 10/01/2021 4:09 PM BOILING HOUSE OILER documented in this encounter Results * ECG 12 lead (10/01/2021 6:46 PM BOILING HOUSE OILER) Ventricular Rate EKG/Min 57 BPM [facility] Atrial Rate 57 BPM [facility] IN-Interval (MSEC) 150 ms [facility] QRS-Interval (MSEC) 94 ms [facility] QT-Interval (MSEC) 412 ms [facility] QTc 401 ms [facility] P [place] 77 degrees [facility] R [place] 18 degrees [facility] T [place] 19 degrees [facility] Diagnosis Sinus bradycardia Otherwise normal ECG When compared with ECG of 01-OCT-2021 16:55, Vent. rate has decreased BY ??85 BPM Incomplete right bundle branch block is no longer Present ST no longer depressed in Anterolateral leads [facility] 10/01/2021 6:46 PM BOILING HOUSE OILER 10/03/2021 6:53 PM BOILING HOUSE OILER us Natalia MAURICE ECG ORDERABLES Final Resul t [facility] * (ABNORMAL) Sepsis Lactate w/ Reflex (10/01/2021 6:38 PM BOILING HOUSE OILER) Sepsis Lactate 0.5(L) 0.7 - 2.0 mmol/L [facility] Blood 10/01/2021 6:38 PM BOILING HOUSE OILER 10/01/2021 6:43 PM BOILING HOUSE OILER us Klaudia Diego MD LAB BLOOD ORDERABLES Ingris l Result [facility] [address] [facility] Department [place] [address] * XR Chest 1 Vw Portable (10/01/2021 6:10 PM BOILING HOUSE OILER) Anatomical Region Laterality Modality Body, Chest N/A Computed Radiogr aphy 10/01/2021 6:31 PM BOILING HOUSE OILER Narrative 10/01/2021 6:32 PM BOILING HOUSE OILER EXAM DESCRIPTION: ?? XR CHEST 1 VIEW [...] 10/01/2021 6:32 PM - Electronically signed by ??Demar Abbott D.O. Demar Abbott D.O. D: ??10/01/2021 6:32 PM T: Report ID: [id number] Reading Location: ??[id number] Procedure Note Demar Abbott, - 10/01/2021 EXAM [...] D.O. Demar Abbott D.O. T: Report ID: [id number] Reading Location: [id number] Klaudia Diego MD IMG XR PROCEDURES Final R esult * ECG 12 lead (10/01/2021 4:55 PM BOILING HOUSE OILER) Ventricular Rate EKG/Min 142 BPM [facility] Atrial Rate 131 BPM [facility] QRS-Interval (MSEC) 98 ms [facility] QT-Interval (MSEC) 296 ms [facility] QTc 455 ms [facility] R [place] -2 degrees [facility] T [place] 31 degrees [facility] Diagnosis Supraventricular tachycardia Incomplete right bundle branch block ST depression, consider subendocardial injury Abnormal ECG [facility] 10/01/2021 4:55 PM BOILING HOUSE OILER 10/02/2021 12:31 PM BOILING HOUSE OILER us Klaudia Diego MD ECG ORDERABLES Final Res ult Performing Organization Address City/[facility]/ZIP Co de Phone Number [facility] * TSH reflex to free T4 (10/01/2021 4:09 PM BOILING HOUSE OILER) TSH 1.15 0.30 - 4.20 mcIUnit/mL [facility] Blood 10/01/2021 4:09 PM BOILING HOUSE OILER 10/01/2021 4:14 PM BOILING HOUSE OILER Klaudia Diego MD LAB BLOOD ORDERABLES Ingris l Result [facility] [address] [facility] Department [place] [address] * Magnesium (10/01/2021 4:09 PM BOILING HOUSE OILER) Magnesium 1.9 1.4 - 2.5 mg/dL [facility] Blood 10/01/2021 4:09 PM BOILING HOUSE OILER 10/01/2021 4:14 PM BOILING HOUSE OILER Klaudia Diego MD LAB BLOOD ORDERABLES Ingris l Result Performing Organization Address [facility] Co de Phone Number [facility] [address] [facility] [id number] [address] * Antibody identification (10/01/2021 4:09 PM BOILING HOUSE OILER) [facility] Antibody Identification Interpretation Anti-P1 KITALAKESHA Comment: 10/01/2021 17:10 ??[id number] Previously antibody not currently reacting. Blood 10/01/2021 4:09 PM BOILING HOUSE OILER 10/01/2021 4:14 PM BOILING HOUSE OILER us Maya MAURICE LAB BLOOD BANK TEST ORDERABLES F inal Result Performing Organization Address [facility]/[place]UST de Phone Number [facility] [address] [place] [address] * eGFR (10/01/2021 4:09 PM BOILING HOUSE OILER) [facility] eGFR 107 mL/min/1. 73 m2 KITALAKESHA Comment: [...] last reviewed 2021. Blood 10/01/2021 4:09 PM BOILING HOUSE OILER 10/01/2021 4:14 PM BOILING HOUSE OILER us Maya MAURICE LAB BLOOD ORDERABLES Final Resul t [facility] [address] [facility] Department [place] [address] * Differential, auto (10/01/2021 4:09 PM BOILING HOUSE OILER) Neutrophil abs 4.1 1.7 - 6.5 K/cumm [facility] Imm gran abs 0.0 0.0 - 0.1 K/cumm [facility] Lymphocyte abs 2.6 0.8 - 3.3 K/cumm [facility] Monocyte abs 0.6 0.2 - 0.8 K/cumm [facility] Eosinophil abs 0.2 0.0 - 0.5 K/cumm [facility] Basophil abs 0.1 0.0 - 0.1 K/cumm [facility] Neutrophil pct 54.0 % [facility] Comment: Interpretive Data Percent cell count reference ranges are not reported, since discordance with absolute values may lead to misinterpretation of CBC data. Current Interpretive Data was last revised on 2017. Imm gran pct 0.4 % [facility] Comment: Interpretive Data Percent cell count reference ranges are not reported, since discordance with absolute values may lead to misinterpretation of CBC data. Current Interpretive Data was last revised on 2017. Lymphocyte pct 34.6 % [facility] Comment: Interpretive Data Percent cell count reference ranges are not reported, since discordance with absolute values may lead to misinterpretation of CBC data. Current Interpretive Data was last revised on 2017. Monocyte pct 7.7 % [facility] Comment: Interpretive Data Percent cell count reference ranges are not reported, since discordance with absolute values may lead to misinterpretation of CBC data. Current Interpretive Data was last revised on 2017. Eosinophil pct 2.5 % [facility] Comment: Interpretive Data Percent cell count reference ranges are not reported, since discordance with absolute values may lead to misinterpretation of CBC data. Current Interpretive Data was last revised on 2017. Basophil pct 0.8 % [facility] Comment: Interpretive Data Percent cell count reference ranges are not reported, since discordance with absolute values may lead to misinterpretation of CBC data. Current Interpretive Data was last revised on 2017. Blood 10/01/2021 4:09 PM BOILING HOUSE OILER 10/01/2021 4:14 PM BOILING HOUSE OILER Maya MAURICE LAB BLOOD ORDERABLES Final Resul t Performing Organization Address [facility] Co de Phone Number [address] [address] * Antibody screen (10/01/2021 4:09 PM BOILING HOUSE OILER) Destiny, indirect, Gel Interpretation Negative ABSC [facility] Blood 10/01/2021 4:09 PM BOILING HOUSE OILER 10/01/2021 4:14 PM BOILING HOUSE OILER Narrative [facility] - 10/01/2021 5:03 PM BOILING HOUSE OILER Has the patient had Daratumumab or Isatuximab in the past 6 months?->Unknown Result [facility] Maya MAURICE LAB BLOOD BANK TEST ORDERABLES F inal Result Performing Organization Address [facility] Co de Phone Number [address] [address] * ABO/Rh (10/01/2021 4:09 PM BOILING HOUSE OILER) ABO/Rh O Negative [facility] Blood 10/01/2021 4:09 PM BOILING HOUSE OILER 10/01/2021 4:14 PM BOILING HOUSE OILER Narrative [facility] - 10/01/2021 5:03 PM BOILING HOUSE OILER Has the patient had Daratumumab or Isatuximab in the past 6 months?->Unknown Maya MAURICE LAB BLOOD BANK TEST ORDERABLES F inal Result Performing Organization Address City/[facility]/ZIP Co de Phone Number [address] [place] [address] [address] * aPTT (10/01/2021 4:09 PM BOILING HOUSE OILER) [facility] aPTT 32 22 - 37 sec [facility] Comment: Interpretive data aPTT test has not been evaluated for monitoring heparin therapy. The anti-Xa is the preferred test. Current interpretive data was last revised on 2019. Blood 10/01/2021 4:09 PM BOILING HOUSE OILER 10/01/2021 4:14 PM BOILING HOUSE OILER Maya MAURICE LAB BLOOD ORDERABLES Final Resul t Performing Organization Address [facility] Co de Phone Number [address] [address] * Protime-INR (10/01/2021 4:09 PM BOILING HOUSE OILER) [facility] PT 13.3 12.0 - 14.6 sec [facility] INR 1.0 0.9 - 1.2 [facility] Comment: Ref Range High Interpretive data Oral anticoagulant therapeutic ranges: Venous thromboembolism prophylaxis or treatment: 2.0-3.0 CARDIOLOGY Standard range: 2.0-3.0 High-intensity range: 2.5-3.5 Refer to indication-specific guidelines for appropriate target ranges for prosthetic heart valve replacement. Current interpretive data was last revised on 2019. Blood 10/01/2021 4:09 PM BOILING HOUSE OILER 10/01/2021 4:14 PM BOILING HOUSE OILER Maya MAURICE LAB BLOOD ORDERABLES Final Resul t Performing Organization Address City/[facility] Co de Phone Number [address] [address] * hCG, blood, quantitative (10/01/2021 4:09 PM BOILING HOUSE OILER) [facility] hCG, quant <0.1 0.0 - 5.0 IUnits/L [...] revised on 2018. Blood 10/01/2021 4:09 PM BOILING HOUSE OILER 10/01/2021 4:14 PM BOILING HOUSE OILER us Maya MAURICE LAB BLOOD ORDERABLES Edited Resu lt - Final [facility] [address] [facility] Department of Laboratories [place], [place] [id number] * Comprehensive metabolic panel (10/01/2021 4:09 PM BOILING HOUSE OILER) Sodium 140 135 - 145 mmol/L [facility] Potassium, pl 4.1 3.3 - 4.9 mmol/L [facility] Chloride 105 97 - 110 mmol/L [facility] CO2 24 22 - 32 mmol/L [facility] Anion gap 11 2 - 15 mmol/L [facility] BUN 10 8 - 25 mg/dL [facility] Creatinine 0.60 0.60 - 1.10 mg/dL [facility] Glucose 104 70 - 199 mg/dL [facility] Comment: Interpretive Data Fasting glucose >/= [...] 2017. Calcium 9.0 8.5 - 10.3 mg/dL [facility] Bilirubin, total 0.3 0.1 - 1.2 mg/dL [facility] Protein, pl 6.5 6.5 - 8.5 g/dL [facility] Albumin 3.7 3.5 - 5.0 g/dL [facility] Alk phos 60 40 - 130 Units/L [facility] ALT 11 7 - 45 Units/L [facility] AST 15 10 - 45 Units/L [facility] Blood 10/01/2021 4:09 PM BOILING HOUSE OILER 10/01/2021 4:14 PM BOILING HOUSE OILER Maya MAURICE LAB BLOOD ORDERABLES Final Resul t [facility] [address] [facility] Department [place] [address] * CBC with auto differential (10/01/2021 4:09 PM BOILING HOUSE OILER) [facility] WBC 7.5 3.8 - 9.9 K/cumm [facility] Hgb 12.6 11.9 - 15.5 g/dL [facility] Hct 37.2 35.6 - 45.5 % [facility] Plt 278 150 - 400 K/cumm [facility] MPV 10.0 9.1 - 12.3 fL [facility] RBC 4.03 3.90 - 5.20 M/cumm [facility] MCV 92.3 81.3 - 96.4 fL [facility] MCH 31.3 27.1 - 33.3 pg [facility] MCHC 33.9 32.3 - 35.7 g/dL [facility] RDW CV 12.8 11.1 - 14.9 % [facility] RDW SD 43.5 35.7 - 48.1 fL [facility] NRBC abs 0.00 0.00 - 0.01 K/cumm [facility] Blood 10/01/2021 4:09 PM BOILING HOUSE OILER 10/01/2021 4:14 PM BOILING HOUSE OILER Maya MAURICE LAB BLOOD ORDERABLES Final Resul t [facility] [address] [facility] Department [place] [address] documented in this encounter Visit Diagnoses Diagnosis [...] 1 dose New Bag 10/01/2021 4:54 PM BOILING HOUSE OILER 1,000 mL 1000 mL/hr documented in this encounter Active and Recently Administered Medications Times are shown in BOILING HOUSE OILER. Scheduled Medication Order 09/29/2021 09/30/2021 10/01/2021 sodium [...] 10/01 documented in this encounter Care Teams Drop Forge Operator Relationship Specialty Start Date End Date Baldomero Dominguez MD PCP - General 01/07/17 Jaciel Melo MD Internal Consultant Cardiovascular Disease 04/12/19 2 documented as of this encounter
--- OUTSIDE RECORDS SUMMARY | 2024-07-11 12:27 | XMS_ITS | Encounter Summary ---
Author Organization [facility] Healthcare Address [address] [place] [address] Care Team Providers Care Sales Agent Financial Report Service Name Role Phone Baldomero Dominguez MD Primary Care Provider [phone] Jaciel Melo MD Unavailable [phone] Reason for Visit * Reason Onset Date Comments COVID-19 EVALUATION 03/28/2021 Encounter Details Date Type Department Care Team (Late st Contact Info) Description 03/28/2021 Telephone [facility] Healthcare Occupatiuonal Health [address] [facility] [address] (Third Floor) [place] [address] Michelle Ortiz RN COVID-19 EVALUATION Social History Tobacco Use Types Packs/Day Years Used Date Smoking Tobacco: Never Smokeless Tobacco: Never Alcohol Use Standard Drinks/Week Comments Yes 0 (1 standard drink = 0.6 oz pur e alcohol) occasional wine Comments No Sex and Gender Information Value Date Recorded Sex Assigned at Not on file 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 ??Testing performed by the [facility]. The 2018-Novel Coronavirus [...] August 29, 2020. Employeed in healthcare? Yes [facility] status? No [facility] Group care resident? No [facility] Hospitalized? No [facility] Is patient in ICU? No [facility] Symptomatic as defined by CDC? Yes [facility] Nasopharyngeal 03/28/2021 1: 06 PM CDT 03/28/2021 5:53 PM CDT Narrative [facility] - 03/29/2021 2:16 AM CDT Patient is employed by/enrolled at:->[employer] What is the reason for testing?->Symptoms of COVID-19 in low-risk group (batch) Date of Symptom Onset->03/28/21 us Dedra López MD LAB MICROBIOLOGY - GENERAL ORDERABLES Final Result [facility] [address] [facility] [place] [address] documented in this encounter Visit Diagnoses Diagnosis At increased risk of exposure to COVID-19 virus- Primary At increased risk of exposure to COVID-19 virus documented in this encounter Additional Health Concerns Infection Onset Date Last Indicated Resolved Time COVID: Suspected 03/28/2021 03/28/2021 04/11/2021 3:05 AM CDT documented as of this encounter Care Teams Sales Agent Financial Report Service Relationship Specialty Start Date End Date Baldomero Dominguez MD PCP - General 01/07/17 Jaciel Melo MD [employer] Cardiovascular Disease 04/12/19 2 documented as of this encounter
--- OUTSIDE RECORDS SUMMARY | 2024-07-11 12:27 | XMS_ITS | Encounter Summary ---
Author Organization [facility] Address [address] [facility] [address] [place] [address] Care Team Providers Care Bindery Production Manager Name Role Phone Baldomero Dominguez MD Primary Care Provider [phone] Jaciel Melo MD Unavailable [phone] Encounter Details Date Type Department Care Team (Late st Contact Info) Description 11/05/[address] 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 Pts phone number [phone] [facility] documented in this encounter Plan of Treatment Not on file documented as of this encounter Visit Diagnoses Not on filedocumented in this encounter Care Teams Bindery Production Manager Relationship Specialty Start Date End Date Baldomero Dominguez MD PCP - General 01/07/17 Jaciel Melo MD Bit Welder Cardiovascular Disease 04/12/19 2 documented as of this encounter
--- OUTSIDE RECORDS SUMMARY | 2024-07-11 12:27 | XMS_ITS | Encounter Summary ---
Author Organization [facility] Healthcare Address [address] [place] [address] Care Team Providers Care Door Operator Name Role Phone Baldomero Dominguez MD Primary Care Provider [phone] Jaciel Melo MD Unavailable [phone] Reason for Visit * Reason Onset Date Comments COVID-19 EVALUATION 05/13/2021 Encounter Details Date Type Department Care Team (Late st Contact Info) Description 05/13/2021 Telephone [facility] Healthcare Occupatiuonal Health [address] [facility] Room [address] (Third Floor) [place] [address] Ladi Butt RN COVID-19 EVALUATION Social History Tobacco Use Types Packs/Day Years Used Date Smoking Tobacco: Never Smokeless Tobacco: Never Alcohol Use Standard Drinks/Week Comments Yes 0 (1 standard drink = 0.6 oz pur e alcohol) occasional wine Comments No Sex and Gender Information Value Date Recorded Sex Assigned at Not on file 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 - No No Yes Yes Email: [email or web address] ID# [id number] Are you an employee or student? 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 ??? While you are awaiting testing [...] Health will notify you and your manager sports when you can return to work. ??? Should your test result positive, [facility] will work with you to identify any close contacts you may have had at work. [facility] will then alert your work contacts directly; you do not have to. 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 [facility] will help ensure that coworkers potentially at risk are notified and given appropriate advice without unnecessary disclosure of personal health information. ??? We will send you an email with self-quarantine instructions (see [facility] Guidance for At-Home Isolation: Employees). ??? You must follow any additional isolation or quarantine instructions provided to you from federal, state or local public health authorities. ??? You should let your plumber supervisor know that you will not be coming to work. Although the Call Center will email your plumber supervisor to confirm that you have been instructed not to come to work, it is still your responsibility to notify your plumber supervisor as you would for any other work absence. You should receive an email from the call center with these instructions. The email will come from [email or web address]; if you do not receive it, please check to see if your email sql server dba developer has automatically routed it to [facility]. documented in this encounter Plan of Treatment Not on file documented as of this encounter Results * COVID-19 Coronavirus RNA Oropharynx (05/13/2021 2:07 PM CDT) COVID-19 RNA Not Detected [facility] Comment: Interpretive Data Synonyms for this test include: PCR and NAAT . ??Testing performed by the [facility] Molecular Infectious Disease Laboratory. The 2019-Novel Coronavirus [...] 10:04 PM CDT Patient is employed by/enrolled at:->[employer] What is the reason for testing?->Symptoms of COVID-19 in low-risk group (batch) Date of Symptom Onset->05/10/21 Dedra López MD LAB MICROBIOLOGY - GENERAL ORDERABLES Final Result [facility] Department [place] [address] documented in this encounter Visit Diagnoses Diagnosis Fever, unspecified fever cause- Primary Fever, unspecified fever cause documented in this encounter Additional Health Concerns Infection Onset Date Last Indicated Resolved Time COVID: Suspected 05/13/2021 05/13/2021 05/13/2021 10:05 PM CDT documented as of this encounter Care Teams Door Operator Relationship Specialty Start Date End Date Baldomero Dominguez MD PCP - General 01/07/17 Jaciel Melo MD Lead Javascript Developer Cardiovascular Disease 04/12/19 2 documented as of this encounter
--- OUTSIDE RECORDS SUMMARY | 2024-07-11 12:27 | XMS_ITS | Encounter Summary ---
Author Organization [facility] Medical Group Address [address] [facility] [address] [place] [address] Care Team Providers Care Pompom Maker Name Role Phone Baldomero Dominguez MD Primary Care Provider [phone] Lane Gonzalez MD Unavailable [phone] Pee Villasenor MD Unavailable [phone] Encounter Details Date Type Department Care Team (Late st Contact Info) Description 02/12/2022 Telephone [facility] Medical Group Obstetrical Gynecology [address] [facility] [address] [place] [phone] Pee Villasenor MD [address] [facility] [address] [address] Social History Tobacco Use Types [...] on file 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 Pt phone: [phone] documented in this encounter Plan of Treatment Not on file documented as of this encounter Visit Diagnoses Not on filedocumented in this encounter Care Teams Pompom Maker Relationship Specialty Start Date End Date Baldomero Dominguez MD PCP - General 01/07/17 Lane Gonzalez MD [address] [facility] [address] Consulting Physician Interventional Cardiology 12/18/21 Pee Villasenor MD [address] [facility] [address] [place] [address] Consulting Physician Obstetrics and Gynecology 12/26/21 documented as of this encounter
--- OUTSIDE RECORDS SUMMARY | 2024-07-11 12:27 | XMS_ITS | Encounter Summary ---
Author Organization [facility] Medical Group Address [address] [facility] [address] [place] [address] Care Team Providers Care Junior Data Analyst Name Role Phone Baldomero Dominguez MD Primary Care Provider [phone] Jaciel Melo MD Unavailable [phone] Encounter Details Date Type Department Care Team (Late st Contact Info) Description 10/03/2021 Orders Only [facility] Medical Group Obstetrical Gynecology [address] [address] Patrick Sánchez MD [address] [address] Social History Tobacco Use Types Packs/Day Years Used Date Smoking Tobacco: Never Smokeless Tobacco: Never Alcohol Use Standard Drinks/Week Comments Yes 0 (1 standard drink = 0.6 oz pur e alcohol) occasional wine Comments No Sex and Gender Information Value Date Recorded Sex Assigned at Not on file 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
--- OUTSIDE RECORDS SUMMARY | 2024-07-11 12:27 | XMS_ITS | Encounter Summary ---
Author Organization [facility] Medical Group Address [address] [facility] [address] [place] [address] Care Team Providers Care Visual Basic Programmer Name Role Phone Baldomero Dominguez MD Primary Care Provider [phone] Jaciel Melo MD Unavailable Encounter Details Date Type Department Care Team (Late st Contact Info) Description 10/02/2021 Telephone [facility] Group Obstetrical Gynecology [address] [address] Lei Otto MD [address] [address] Social History Tobacco Use Types Packs/Day Years Used Date Smoking Tobacco: Never Smokeless Tobacco: Never Alcohol Use Standard Drinks/Week Comments Yes 0 (1 standard drink = 0.6 oz pur e alcohol) occasional wine Comments No Sex and Gender Information Value Date Recorded Sex Assigned at Not on file Legal Sex Female 1:19 PM COMMUNITY DIRECTOR Gender Identity Not on file Sexual Orientation Not on file documented as of this encounter Miscellaneous Notes * Telephone Encounter - Deloris Zhou RN - 10/03/2021 12:04 PM COMMUNITY DIRECTOR Patient notified. UNITY DIRECTOR * Telephone Encounter - Patrick Sánchez MD - 10/03/2021 11:58 AM COMMUNITY DIRECTOR I'll call in a Provera course for her. I cannot restrict her being able to work - that is up to her. Gonzalo UNITY DIRECTOR * Telephone Encounter - Deloris Zhou RN - 10/03/2021 11:55 AM COMMUNITY DIRECTOR She is wondering if she needs to be off work or if there is something she can take to help the bleeding. States it is really heavy when she is on her feet and moving around. UNITY DIRECTOR * Telephone Encounter - Patrick Sánchez MD - 10/03/2021 11:19 AM COMMUNITY DIRECTOR What is she wanting? I dont really have any recs at this time till I see her. Gonzalo UNITY DIRECTOR * Telephone Encounter - Deloris Zhou RN - 10/03/2021 10:07 AM COMMUNITY DIRECTOR Please advise. UNITY DIRECTOR * Telephone Encounter - Deloris Zhou RN - 10/03/2021 10:04 AM COMMUNITY DIRECTOR Patient notified. 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 Please advise. UNITY DIRECTOR * Telephone Encounter - Patrick Sánchez MD - 10/03/2021 9:50 AM COMMUNITY DIRECTOR US reuslts: - endometrial polyp - likely cause of postmenopausal bleeding - will recommend D&C when see herfor f/u. - bilateral small ovarian cysts <2cm - would recommend surveillance with f/u US in 3-6mo in absence of any other symptoms - will discuss when see her for f/u. Gonzalo UNITY DIRECTOR * Telephone Encounter - Deloris Zhou RN - 10/03/2021 9:40 AM CST Patient scheduled with you 10/13. Asking for TVUS results. Please advise. UNITY DIRECTOR * Telephone Encounter - Deloris Zhou RN - 10/02/2021 1:13 PM CST Soonest available with Dr. Sánchez. Patient scheduled will notify her with US results when they are released. UNITY DIRECTOR * Telephone Encounter - Deloris Zhou RN - 10/02/2021 11:08 AM COMMUNITY DIRECTOR Patient will call back with US appointment to make an appointment with Dr. Villasenor to F/U. UNITY DIRECTOR * Telephone Encounter - Deloris Zhou RN - 10/02/2021 11:01 AM COMMUNITY DIRECTOR Order placed and patient notified. UNITY DIRECTOR * Telephone Encounter - Lei Otto MD - 10/02/2021 10:58 AM COMMUNITY DIRECTOR Please get a pelvic ultrasound ordered to be done at the hospital, and an appointment with Dr. Villasenor within the next week or so. UNITY DIRECTOR * Telephone Encounter - Deloris Zhou RN - 10/02/2021 9:02 AM CST Patient c/o AUB. Went to [facility] yesterday see note. They advised her to see Dr. Villasenor (she has not seen him since 2016) for an TVUS and exam. Ok to order US? She is worried about bleeding through pads/tampons and having to wait for an appointment. Patient currently has [employer] insurance.Please advise. UNITY DIRECTOR UNITY DIRECTOR documented in this encounter Plan of Treatment Not on file documented as of this encounter Visit Diagnoses Diagnosis Abnormal uterine bleeding- Primary Unspecified disorder of menstruation and other abnormal bleeding from female genital tract documented in this encounter Care Teams Visual Basic Programmer Relationship Specialty Start Date End Date Baldomero Dominguez MD PCP - General 01/07/17 Jaciel Melo MD Embalmer Assistant Cardiovascular Disease 04/12/19 2 documented as of this encounter
--- OUTSIDE RECORDS SUMMARY | 2024-07-11 12:27 | XMS_ITS | Encounter Summary ---
Author Organization [facility] Medical Group Address [address] [facility] [address] [place] [address] Care Team Providers Care Rn Integrated Name Role Phone Baldomero Dominguez MD Primary Care Provider [phone] Jaciel Melo MD Unavailable Encounter Details Date Type Department Care Team (Late st Contact Info) Description 11/10/2021 Telephone [facility] Medical Group Obstetrical Gynecology [address] [facility] [address] [place] [address] Pee Villasenor MD [address] [facility] [address] [place] [address] Social History Tobacco Use Types Packs/Day Years Used Date Smoking Tobacco: Never Smokeless Tobacco: Never Alcohol Use Standard Drinks/Week Comments Yes 0 (1 standard drink = 0.6 oz pur e alcohol) occasional wine Comments No Sex and Gender Information Value Date Recorded Sex Assigned at Not on file 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
--- OUTSIDE RECORDS SUMMARY | 2024-07-11 12:27 | XMS_ITS | Encounter Summary ---
Author Organization [facility] Healthcare Address [address] [place] [address] Care Team Providers Care Telephone Information Clerk Name Role Phone Baldomero Dominguez MD Primary Care Provider [phone] Lane Gonzalez MD Unavailable [phone] Pee Villasenor MD Unavailable [phone] Reason for Referral * MRI/CAT/PET Scan (Routine) - Closed Specialty Diagnoses / Procedures Referred By Vianca montiel Referred To Contact Radiology Diagnoses Acute pain of left knee Procedures MRI Knee Arthrogram Left W Contrast Torsten Katz MD [address] [facility] [address] [place] [address] Phone: tel: fax: [address] [address] Referral ID Status Reason Start Date Expiration Date Visits Re quested Visits Authorized [id number] Closed 02/24/2022 03/26/2023 1 1 Reason for Visit * MRI/CAT/PET Scan (Routine) - Closed Specialty Diagnoses / Procedures Referred By [facility] Referred To Contact Radiology Diagnoses Acute pain of left knee Procedures MRI Knee Arthrogram Left W Contrast Torsten Katz MD [address] [facility] [address] [place] [address] Phone: tel: fax: [facility] [address] [place] [address] Referral ID Status Reason Start Date Expiration Date Visits Re quested Visits Authorized [id number] Closed 02/24/2022 03/26/2023 1 1 Encounter Details Date Type Department Care Team (Latest Contact Info) Description 03/31/2022 1:45 PM CDT - 03/31/2022 11:59 PM CDT Hospital Encounter [facility] MRI [address] [place] [address] Acute pain of left knee [...] on file 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 T: Report ID: [id number] Reading Location: [id number] Torsten Katz MD IMG MRI PROCEDURES Final [...] 03/31/2022 documented in this encounter Care Teams Telephone Information Clerk Relationship Specialty Start Date End Date Baldomero Dominguez MD PCP - General 01/07/17 Lane Gonzalez MD [address] [facility] [address] [place] [address] Consulting Physician Interventional Cardiology 12/18/21 Pee Villasenor MD [address] [facility] [address] [place] [address] Consulting Physician Obstetrics and Gynecology 12/26/21 documented as of this encounter
--- OUTSIDE RECORDS SUMMARY | 2024-07-11 12:27 | XMS_ITS | Encounter Summary ---
Author Organization [facility] Address [address] [place] [address] Care Team Providers Care Parlor Chaperone Name Role Phone Baldomero Dominguez MD Primary Care Provider Lane Gonzalez MD Unavailable [phone] Pee Villasenor MD Unavailable [phone] Reason for Visit * Auth/Cert Specialty Diagnoses / Procedures Referred By Vianca montiel Referred To Contact Diagnoses Abnormal uterine and vaginal bleeding, unspecified Abnormal uterine and vaginal bleeding, unspecified [N93.9] Procedures NH HYSTEROSCOPY,W/ENDO BX HYSTEROSCOPY, DILATION AND CURETTAGE POSSIBLE MYOSURE Referral ID Status Reason Start Date Expiration Date Visits Re quested Visits Authorized [id number] 1 1 Encounter Details Date Type Department Care Team (Latest Contact Info) Description 12/26/2021 5:39 AM CDT - 12/26/2021 10:34 AM CDT Hospital Encounter [address] [address] Pee Villasenor MD [address] [facility] [address] [address] Abnormal uterine and vaginal bleeding, unspecified Discharge [...] on file Legal Sex Female 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 Arthritis ??? Crohn's disease (CMS/HCC) ([facility]) ??? Heart disease ??? Heart murmur ??? Hypertension tx in past lost over 100lbs no medications at this time ??? Joint pain ??? Left knee injury states wears brace occurred at work seeing Dr for injections ??? Morbid obesity (CMS/HCC) ([facility]) ??? Sleep apnea does use cpap [...] breakfast 12/25/2021 at Unknown time ??? multivit eudjtfmq-eqsa-CY-calcium (THERA-M) 9 mg iron-400 mcg tablet Take [...] MD - Primary Anesthesiologist: Robby Paredes DO SUPERVISOR CARPENTERS: Eduardo Ryan CRNA Enrichment Assistant: Kellie Vale RN Scrub: Coral Garcia CRNFA Enrichment Assistant Second: Jolly Vásquez RN DATE OF SURGERY [...] Endocervix, curettage SURGICAL PATHOLOGYPee Villasenor MD 12/26/2021 9137 B : ENDOMETRIAL CURETTINGS Tissue Endometrial curettings SURGICAL PATHOLOGY Pee Villasenor MD 12/26/2021 0755 C : ENDOMETRIAL POLYP Tissue Polyp (s), Cervical / Endometrial SURGICAL PATHOLOGY Nicholas Villasenor MD 12/26/2021 0759 Implants: Nothing was implanted during the procedure [...] from the original note were not included. [address] [address] Surgery Reminder Checklist: Please arrive to [facility]'s Outpatient Surgery Department for scheduled surgeryon [...] take TYLENOL (ACETAMINOPHEN) as needed for pain. [place] your teeth morning of procedure. Use mouth [...] The Specimen collection site is located at [facility] - [address] [facility] in [place], [place]. Please use Entrance A. Turn to [...] please call the Admission Testing Center at [phone]. documented in this encounter Plan of Treatment [...] Endometrial) 12/26/2021 7:57 AM CDT Narrative PATHOLOGY [facility] - 12/29/2021 12:14 PM CDT [facility] Department of Pathology [address] [place] [address] ?? Note to Patients: ??This report may [...] ??1965 (Age: 56) Gender: ??F Address: ??[address] [place], [place] [address] [facility] #: [id number] Service: Surgery Location: Patient Type: [facility] OUTPATIENT ? Taken: 12/26/2021 Received: 12/26/2021 Accessioned: [...] LAB PATHOLOGY ORDERABLE S Final Result PATHOLOGY [facility] * POCT hCG, urine (12/26/2021 6:16 AM CDT) [facility] HCG, ur, POC Negative Lot Number [id number] QC Backgroud Clear Acceptable QC Control Line Acceptable Urine 12/26/2021 6:16 AM CDT Pee Villasenor MD POINT OF CARE TEST ORDE RABLES Final Result * (ABNORMAL) POC Blood Gas and Chemistries, Venous - (12/26/2021 6:05 AM CDT) [facility] pH,kristine POC 7.35 7.32 - 7.43 [facility] pCO2, kristine POC 58(H) 40 - 50 mmHg [facility] pO2,kristine POC 22 mmHg [facility] Comment: Interpretive Data No reference range established. Current interpretive data was last revised 2020. HCO3, kristine (Calc) POC 32(H) 20 - 30 mmol/L [facility] Base excess, kristine POC 5 mmol/L [facility] Comment: Interpretive Data No reference range established. Current interpretive data was last revised 2020. Hemoglobin, kristine POC 13.6 11.9 - 15.5 g/dL [facility] Hematocrit, kristine POC 40.0 35.6 - 45.5 % [facility] Sodium, kristine POC 141 135 - 145 mmol/L [facility] Potassium, kristine POC 3.9 3.3 - 4.9 mmol/L [facility] Comment: Interpretive Data Unable to assess hemolysis, Invitro hemolysis causes falsely elevated potassium. Current interpretive data was last revised on 2020. Glucose, kristine POC 94 70 - 199 mg/dL [facility] Ionized Calcium, kristine POC 5.10 4.50 - 5.20 mg/dL [facility] Blood 12/26/2021 6:05 AM CDT 12/26/2021 6:05 AM CDT Pee Villasenor MD LAB POCT ORDERABLES - D YOLANDAICE Final Result [facility] [address] [facility] Department [place] [address] documented in this encounter Visit Diagnoses Diagnosis [...] 12/26/2021 documented in this encounter Care Teams Parlor Chaperone Relationship Specialty Start Date End Date Baldomero Dominguez MD PCP - General 01/07/17 Lane Gonzalez MD [address] [facility] [address] [place] [address] Consulting Physician Interventional Cardiology 12/18/21 Pee Villasenor MD [address] [facility] [address] [place] [address] Consulting Physician Obstetrics and Gynecology 12/26/21 documented as of this encounter
--- OUTSIDE RECORDS SUMMARY | 2024-07-11 12:27 | XMS_ITS | Encounter Summary ---
Author Organization [facility] Address [address] [place] [address] Care Team Providers Care Fiberglass Roller Name Role Phone Baldomero Dominguez MD Primary Care Provider [phone] Jaciel Melo MD Unavailable [phone] Reason for Visit * Reason Comments New Patient Ultrasound done 10/02 for AUB Encounter Details Date Type Department Care Team (Late st Contact Info) Description 11/25/2021 1:00 PM CDT Office Visit [facility] Obstetrical Gynecology [address] [facility] [facility] [facility] [address] [place] [address] Pee Villasenor MD [address] [place] [address] [address] [place] [address] Abnormal uterine bleeding (AUB) (Primary Dx) Social History Tobacco Use Types Packs/Day Years Used Date Smoking Tobacco: Never Smokeless Tobacco: Never Alcohol Use Standard Drinks/Week Comments Yes 0 (1 standard drink = 0.6 oz pur e alcohol) occasional wine Comments No Sex and Gender Information Value Date Recorded Sex Assigned at Not on file 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 No rnrq-nsl-tmjvveb products used. Review of Systems Constitutional: Negative [...] discontinue completely. *This note is dictated using Intelipost voice recognition software, variances in spelling and [...] mg sublingual tablet Other 11/25/2021 influenza quadrivalent [id number] (FLULAVAL,FLUARIX,FLUZ ONE) 60 mcg (15 mcg x [...] documented as of this encounter Care Teams Fiberglass Roller Relationship Specialty Start Date End Date Baldomero Dominguez MD PCP - General 01/07/17 Jaciel Melo MD Fire Apparatus Sprinkler Inspector Cardiovascular Disease 04/12/19 2 documented as of this encounter
--- OUTSIDE RECORDS SUMMARY | 2024-07-11 12:27 | XMS_ITS | Encounter Summary ---
Author Organization [facility] Healthcare Address [address] [place] [address] Care Team Providers Care Transmission Engineer Name Role Phone Baldomero Dominguez MD Primary Care Provider [phone] Jaciel Melo MD Unavailable Reason for Visit * Reason Onset Date Comments COVID-19 EVALUATION 05/12/2021 Encounter Details Date Type Department Care Team (Late st Contact Info) Description 05/12/2021 Telephone [facility] Healthcare Occupatiuonal Health [address] [address] (Third Floor) [place] [address] Kamla Lacey RN COVID-19 EVALUATION Social History Tobacco Use Types Packs/Day Years Used Date Smoking Tobacco: Never Smokeless Tobacco: Never Alcohol Use Standard Drinks/Week Comments Yes 0 (1 standard drink = 0.6 oz pur e alcohol) occasional wine Comments No Sex and Gender Information Value Date Recorded Sex Assigned at Not on file Legal Sex Female 1:19 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 - No No Yes Email: [email or web address] Employee/Student ID# [id number] - [id number] Are you an employee or student? 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 On-site On-site - On-site Have you been tested for Covid-19 previously? Yes Yes - Yes Have you ever had a positive COVID-19 swab or saliva test? No No - Yes What was the date of your most recent positive test? - - - (No Data) What was the date of your most recent positive test? - - - September 2019 What was the date of your most recent negative test? 05/10/2020 07/13/2020 - - Have you been vaccinated against COVID-19? - No - Yes Who provided the vaccine: - - - Other (specify) Date of first vaccine dose: - - - 04/18/2021 Date of second vaccine dose: - - - 05/09/2021 Date of Second Covid Vaccine - - - 1100 Have you had a known, specific COVID exposure within the last 14 days? Yes No - No Did the exposure take place at work / on campus? Yes - - - Have you contacted your Occupational Health office or Student Health Services? No - - - Contact Occupational Health Comment not open on the weekend - - - Was your exposure to a patient, coworker or visitor Patient - - - Date of exposure: 06/08/2020 - - - Name of the COVID-19 positive person to whom you were exposed: employee does not know patient name-[address] - - - Was the person to whom you were exposed wearing a mask/face covering? No - - - Date of the COVID-19 test for the person to whom you were exposed: 06/08/2020 - - - Test result of the person to whom you were exposed: Positive - - - What PPE was employee wearing? Mask;Gloves - - - Description of exposure: employee went into patient room X 2 to draw blood- patient's room and patient was not properly identified - - - Employee Symptoms: No Yes - Yes Date of employee symptom onset: - 09/26/2020 - 05/10/2021 Date of Symptoms Comment - - - onset at 10pm Description of Symptoms: - Fever;Cough;Joint Aches;Muscle Aches;Other;New Diarrhea - Fever;Muscle Aches;New Diarrhea;Other Temperature: - 101 - 101 Other Symptoms: - fatigue, loss of appetite, scratchy throat - headache; arm tenderness; nausea; upset stomach Did you have symptoms at work? - No - No Date symptoms started: - 09/26/2020 - 05/10/2021 Date last worked: - 09/24/2020 - 04/09/2021 Do you currently live with, or have ongoing contact with, someone known or suspected to have COVID-19? No No - No Exposure Risk (See Exposure Guide): Significant Exposure No known or low risk exposure - No known or low risk exposure Assessment: Asymptomatic, occupational exposure Symptomatic, unknown exposure - - Plan: (B) Work with mask and active symptom monitoring (A) Stay home and test for symptoms - (F) Vaccine Reaction - Defer testing Testing Site Location: [facility] - Notes: - Patient had seen PCP who recommended testing however did not order testing for the patient- EE has been off work because she did not meet the COVID-19 vaccine requirement. EE rec'vd dose 2 on 05/09/21 at approx 1100 and starting developing vaccine response symptoms on 05/10 at approx 2200 Because you have symptoms, you should NOT report to work (or school). Because your symptoms might be due to a vaccine reaction, if your symptoms completely resolve within 48 hours, you may go back towork (or school) without restrictions. If your symptoms persist for more than 48 hours, you should call back for re-assessment. i. Because your symptoms may be a vaccine reaction, we do not recommend COVID testing at this time. ii. You should monitor your symptoms at home. If you develop any respiratory symptoms (cough, congestion, shortness of breath), please call us back for re-assessment. iii. 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 Although the Call Center will email your plant supervisor to confirm that you have been instructed not to come to work, it is still your responsibility to notify your plant supervisor as you would for any other work absence. documented in this encounter Plan of Treatment Not on file documented as of this encounter Visit Diagnoses Not on filedocumented in this encounter Care Teams Transmission Engineer Relationship Specialty Start Date End Date Baldomero Dominguez MD PCP - General 01/07/17 Jaciel Melo MD Edge Kitter Cardiovascular Disease 04/12/19 2 documented as of this encounter
--- OUTSIDE RECORDS SUMMARY | 2024-07-11 12:27 | XMS_ITS | Encounter Summary ---
Author Organization [facility] Healthcare Address [address] [place] [address] Care Team Providers Care Milk Delivery Driver Name Role Phone Baldomero Dominguez MD Primary Care Provider [phone] Lane Gonzalez MD Unavailable [phone] Pee Villasenor MD Unavailable [phone] Reason for Visit * Auth/Cert Specialty Diagnoses / Procedures Referred By Vianca t Referred To Contact Diagnoses Abnormal uterine and vaginal bleeding, unspecified Abnormal uterine and vaginal bleeding, unspecified [N93.9] Procedures CA HYSTEROSCOPY,W/ENDO BX HYSTEROSCOPY, DILATION AND CURETTAGE POSSIBLE MYOSURE Referral ID Status Reason Start Date Expiration Date Visits Re quested Visits Authorized [id number] 1 1 Encounter Details Date Type Department Care Team (Late st Contact Info) Description 12/26/2021 7:28 AM CDT Anesthesia Event [address] [address] Robby Paredes, [address] [place] [address] [place] [address] Jeremiah Mcclain MD [address] [place] [phone] (work) Anesthesia Record Procedure Summary Procedure Name [...] 0744; Vagina; 06/27/24 (Retired LDA, Removed/Completed by [facility] with LDA Utility); 1213 (Retired LDA, Removed/Completed by [facility] with LDA Utility) 12/26/21 0744 by [...] on file Legal Sex Female 1:19 PM FOCUSER Gender Identity Not on file Sexual Orientation Not on file documented as of this encounter OR Notes * Anesthesia Postprocedure Evaluation - Jeremiah Mcclain MD - 12/26/2021 8:44 AM CDT Patient: Rowena Quesada Procedure Summary Date: 12/26/21 Room / Location: [facility] / [facility] Anesthesia Start: 727 Anesthesia [...] Supervising provider: Robby Paredes DO Placed by: RESEARCH WORKER KITCHEN: Eduardo Ryan CRNA Emergent airway documentation: Risks [...] daily ??? Arthritis ??? Crohn's disease (CMS/HCC) ([facility]) ??? Heart disease ??? Heart murmur ??? Hypertension tx in past lost over 100lbs no medications at this time ??? Joint pain ??? Left knee injury states wears brace occurred at work seeing Dr for injections ??? Morbid obesity (CMS/HCC) ([facility]) ??? Sleep apnea does use cpap ??? Supraventricular tachycardia by ECG ([facility]) ([facility]) patient states stopped own on 2 yrs [...] 12/25/2021 -- -- Adry Sood MD multivit dadendqg-bmuk-MK-calcium (THERA-M) 9 mg iron-400 mcg tablet 12/19/2021 [...] Medication protocol when under care of a RESEARCH WORKER KITCHEN Planned anesthesia: General Team communication plan: LMA Induction: Induction: intravenous. Postoperative Plan: Patient's planned disposition post procedure is Outpatient. Informed Consent: Discussed plan with RESEARCH WORKER KITCHEN. Anesthesia plan and risks discussed with patient. [...] Procedure Name Priority Date/Time Associated Diagnosis Comments CA AN PROCEDURE PLACEHOLDER Routine 12/26/2021 7:41 AM CDT CA AN ELECTIVE SUPRAGLOTTIC AIRWAY Routine 12/26/2021 7:41 AM CDT documented in this encounter Results * CA AN ELECTIVE SUPRAGLOTTIC AIRWAY, CA AN PROCEDURE PLACEHOLDER (12/26/2021 7:41 AM CDT) Narrative Eduardo Ryan CRNA - 12/26/2021 7:41 AM CDT Eduardo Ryan CRNA ? 12/26/2021 ??7:41 AM Airway Patient location: OR Urgency: elective Indications for airway management: anesthesia Difficult airway: no Staff: Supervising provider: Robby Paredes DO Placed by: RESEARCH WORKER KITCHEN: Eduardo Ryan CRNA Emergent airway documentation: Risks [...] mg documented in this encounter Care Teams Milk Delivery Driver Relationship Specialty Start Date End Date Baldomero Dominguez MD PCP - General 01/07/17 Lane Gonzalez MD [address] [place] [address] [place] [address] Consulting Physician Interventional Cardiology 12/18/21 Pee Villasenor MD [address] [place] [address] [place] [address] Consulting Physician Obstetrics and Gynecology 12/26/21 documented as of this encounter
--- OUTSIDE RECORDS SUMMARY | 2024-07-11 12:27 | XMS_ITS | Encounter Summary ---
Author Organization [facility] Healthcare Address [address] [place] [address] Care Team Providers Care Marketing Development Specialist Name Role Phone Baldomero Dominguze MD Primary Care Provider [phone] Jaciel Melo MD Unavailable [phone] Encounter Details Date Type Department Care Team (Late st Contact Info) Description 03/25/2021 Telephone [facility] Healthcare Occupatiuonal Health [address] [place] [address] Room 3420 (Third Floor) [place] [address] Lindsey Rowland, RN Social History Tobacco Use Types Packs/Day Years Used Date Smoking Tobacco: Never Smokeless Tobacco: Never Alcohol Use Standard Drinks/Week Comments Yes 0 (1 standard drink = 0.6 oz pur e alcohol) occasional wine Comments No Sex and Gender Information Value Date Recorded Sex Assigned at Not on file Legal Sex Female 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
--- OUTSIDE RECORDS SUMMARY | 2024-07-11 12:27 | XMS_ITS | Encounter Summary ---
Author Organization [facility] Healthcare Address [address] [place] [address] Care Team Providers Care Rabbit Breeder Name Role Phone Baldomero Dominguez MD Primary Care Provider [phone] Jaciel Melo MD Unavailable [phone] Reason for Referral * Diagnostic Imaging (Routine) - Closed Specialty Diagnoses / Procedures Referred By Vianca montiel Referred To Contact Diagnoses Left knee pain Procedures XR Knee Left 3 Views Ubaldo Chi MD [address] [place] [address] Phone: tel: fax: [address] [address] Referral ID Status Reason Start Date Expiration Date Visits Re quested Visits Authorized [id number] Closed 09/19/2021 10/19/2022 1 1 CAL STAFF COORDINATOR * Diagnostic Imaging (Routine) - Closed Specialty Diagnoses / Procedures Referred By Vianca montiel Referred To Contact Diagnoses Left hip pain Procedures XR Hip Left 2 or 3 Views Ubaldo Chi MD [address] [place] [address] Phone: tel: fax: [address] [phone] Referral ID Status Reason Start Date Expiration Date Visits Re quested Visits Authorized [id number] Closed 09/19/2021 10/19/2022 1 1 CAL STAFF COORDINATOR Reason for Visit * Diagnostic Imaging (Routine) - Closed Specialty Diagnoses / Procedures Referred By Vianca t Referred To Contact Diagnoses Left hip pain Procedures XR Hip Left 2 or 3 Views Ubaldo Chi MD [address] [place] [address] Phone: tel: fax: [address] [phone] Referral ID Status Reason Start Date Expiration Date Visits Re quested Visits Authorized [id number] Closed 09/19/2021 10/19/2022 1 1 Encounter Details Date Type Department Care Team (Latest Contact Info) Description 09/19/2021 9:25 AM MEDICAL STAFF COORDINATOR - 09/19/2021 11:59 PM MEDICAL STAFF COORDINATOR Hospital Encounter [facility] Diagnostic Imaging [address] [place] [id number] Left hip pain; Left knee pain Discharge [...] file Legal Sex Female 1:19 PM MEDICAL STAFF COORDINATOR Gender Identity Not on file Sexual Orientation Not on file documented as of this encounter Medications at Time of Discharge multivit clfuymhu-sinn-QX-ca lcium (THERA-M) 9 mg iron-400 mcg tablet [...] Read Routine (OP Routine) 09/19/2021 10:00 AM MEDICAL STAFF COORDINATOR Left knee pain XR HIP LEFT 2 OR 3 VIEWS Schedule Routine, Read Routine (OP Routine) 09/19/2021 10:00 AM MEDICAL STAFF COORDINATOR Left hip pain documented in this encounter Results * XR Knee Left 3 Views (09/19/2021 10:00 AM MEDICAL STAFF COORDINATOR) Anatomical Region Laterality Modality Lower Extremities, Knee Left Computed Radiography 09/19/2021 12:0 6 PM MEDICAL STAFF COORDINATOR Narrative 09/19/2021 12:08 PM MEDICAL STAFF COORDINATOR EXAM DESCRIPTION: ? XR KNEE LEFT 3 [...] D: ??09/19/2021 12:08 PM T: Report ID: [id number] Reading Location: ??[id number] Procedure Note Sina Floyd MD - 09/19/2021 [...] Sina Floyd M.D. TRI T: Report ID: [id number] Reading Location: [id number] Ubaldo Chi MD IMG XR PROCEDURES Final Result * XR Hip Left 2 or 3 Views (09/19/2021 10:00 AM MEDICAL STAFF COORDINATOR) Anatomical Region Laterality Modality Lower Extremities, Hip, Pelvis Left C omputed Radiography 09/19/2021 12:0 4 PM MEDICAL STAFF COORDINATOR Narrative 09/19/2021 12:06 PM MEDICAL STAFF COORDINATOR EXAM DESCRIPTION: ?? XR HIP LEFT 2 [...] D: ??09/19/2021 12:06 PM T: Report ID: [id number] Reading Location: ??[id number] Procedure Note Sina Floyd MD - 09/19/2021 [...] 12:06 PM - Electronically signed by Sina Floyd M.D. TRI T: Report ID: [id number] Reading Location: [place] [address] Ubaldo Chi MD IMG XR PROCEDURES Final Result documented in this encounter Visit Diagnoses Diagnosis Left hip pain Pain in joint, pelvic region and thigh Left knee pain Pain in joint, lower leg documented in this encounter Care Teams Rabbit Breeder Relationship Specialty Start Date End Date Baldomero Dominguez MD PCP - General 01/07/17 Jaciel Melo MD Sexual Abuse Counsellor Cardiovascular Disease 04/12/19 2 documented as of this encounter
--- OUTSIDE RECORDS SUMMARY | 2024-07-11 12:27 | XMS_ITS | Encounter Summary ---
Author Organization [facility] Address [address] [place] [address] Phone Care Team Providers Care Nail Polish Brush Machine Feeder Name Role Phone Baldomero Dominguez MD Primary Care Provider [phone] Jaciel Melo MD Unavailable [phone] Lane Gonzalez MD Unavailable [phone] Pee Villasenor MD Unavailable [phone] Encounter Details Date Type Department Care Team (Late st Contact Info) Description 03/10/2021 Telephone [facility] Neuro Sleep [address] [facility] 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 Gender Identity Not on file Sexual [...] documented as of this encounter Care Teams Nail Polish Brush Machine Feeder Relationship Specialty Start Date End Date Baldomero Dominguez MD PCP - General 01/07/17 Jaciel Melo MD Tool Design Drafter Cardiovascular Disease 04/12/[address] Gonzalez MD [address] [facility] [address] [place] [address] [place] [id number] Consulting Physician Interventional Cardiology 12/18/21 Pee Villasenor MD [address] [facility] [address] [place] [address] [place] [id number] Consulting Physician Obstetrics and Gynecology 12/26/21 documented as of this encounter
--- OUTSIDE RECORDS SUMMARY | 2024-07-11 12:27 | XMS_ITS | Encounter Summary ---
Author Organization [facility] Address [address] [place] [address] Phone Care Team Providers Care Harvesting Contractor Name Role Phone Baldomero Dominguez MD Primary Care Provider [phone] Jaciel Melo MD Unavailable [phone] Encounter Details Date Type Department Care Team (Late st Contact Info) Description 03/10/2021 Telephone [facility] Neuro Sleep [address] [facility] [facility] [facility] 6[address] [place] [address] Raquel Stephens RMA Social History Tobacco Use Types Packs/Day Years Used Date Smoking Tobacco: Never Smokeless Tobacco: Never Alcohol Use Standard Drinks/Week Comments Yes 0 (1 standard drink = 0.6 oz pur e alcohol) occasional wine Comments No Sex and Gender Information Value Date Recorded Sex Assigned at Not on file Legal Sex Female 1:19 PM CUSTOM VAN CONVERTER Gender Identity Not on file Sexual Orientation Not on file documented as of this encounter Miscellaneous Notes * Telephone Encounter - Raquel Swanson RMA - 03/10/2021 1:57 PM CDT Request sent to [facility] rep for update * Telephone Encounter - [...] on filedocumented in this encounter Care Teams Harvesting Contractor Relationship Specialty Start Date End Date Baldomero Dominguez MD PCP - General 01/07/17 Jaciel Melo MD Finance Administrator Cardiovascular Disease 04/12/19 2 documented as of this encounter
--- OUTSIDE RECORDS SUMMARY | 2024-07-11 12:27 | XMS_ITS | Encounter Summary ---
Author Organization [facility] Healthcare Address [address] [place] [address] Care Team Providers Care Server Security Administrator Name Role Phone Baldomero Dominguez MD Primary Care Provider [phone] Jaciel Melo MD Unavailable [phone] Encounter Details Date Type Department Care Team (Late st Contact Info) Description 05/13/2021 4:40 PM CDT Lab [address] [address] Fever, unspecified fever cause Social History Tobacco Use Types Packs/Day Years Used Date Smoking Tobacco: Never Smokeless Tobacco: Never Alcohol Use Standard Drinks/Week Comments Yes 0 (1 standard drink = 0.6 oz pur e alcohol) occasional wine Comments No Sex and Gender Information Value Date Recorded Sex Assigned at Not on file Legal Sex Female 1:19 PM HAND TUBE BENDER Gender Identity Not on file Sexual Orientation [...] and NAAT . ??Testing performed by the [facility] Molecular Infectious Disease Laboratory. The 2019-Novel [...] in healthcare? Yes ALICIA STANTON status? No [facility] Group care resident? No [facility] Hospitalized? No [facility] Is patient in ICU? No [facility] Symptomatic as defined by CDC? Yes [facility] Oropharynx 05/13/2021 2:07 PM CDT 05/13/2021 5:30 PM CDT Narrative [facility] - 05/13/2021 10:04 PM CDT Patient is employed by/enrolled at:->[employer] What is the reason for testing?->Symptoms of COVID-19 in low-risk group (batch) Date of Symptom Onset->05/10/21 Dedra López MD LAB MICROBIOLOGY - GENERAL ORDERABLES Final Result [facility] Department [place] [address] documented in this encounter Visit Diagnoses Diagnosis Fever, unspecified fever cause documented in this encounter Additional Health Concerns Infection Onset Date Last Indicated Resolved Time COVID: Suspected 05/13/2021 05/13/2021 05/13/2021 10:05 PM CDT documented as of this encounter Care Teams Server Security Administrator Relationship Specialty Start Date End Date Baldomero Dominguez MD PCP - General 01/07/17 Jaciel Melo MD Production Machine Operator Cardiovascular Disease 04/12/19 2 documented as of this encounter
--- OUTSIDE RECORDS SUMMARY | 2024-07-11 12:27 | XMS_ITS | Encounter Summary ---
Author Organization [facility] Address [address] [place] [address] Care Team Providers Care Cotton Classer Name Role Phone Baldomero Dominguez MD Primary Care Provider Jaciel Melo MD Unavailable Encounter Details Date Type Department Care Team (Late st Contact Info) Description 03/03/2021 Telephone [facility] Pulmonology [address] [place] [address] Cherise Rodas Social History Tobacco Use Types Packs/Day Years Used Date Smoking Tobacco: Never Smokeless Tobacco: Never Alcohol Use Standard Drinks/Week Comments Yes 0 (1 standard drink = 0.6 oz pur e alcohol) occasional wine Comments No Sex and Gender Information Value Date Recorded Sex Assigned at Not on file Legal Sex Female 1:19 PM METAL MOULDER Gender Identity Not on file Sexual Orientation Not on file documented as of this encounter Miscellaneous Notes * Telephone Encounter - Cherise Rodas - 03/03/2021 12:18 PM CDT Patient called and stated she is seeing a different doctor and no longer needs an apt. documented in this encounter Plan of Treatment Not on file documented as of this encounter Visit Diagnoses Not on filedocumented in this encounter Care Teams Cotton Classer Relationship Specialty Start Date End Date Baldomero Dominguez MD PCP - General 01/07/17 Jaciel Melo MD Cartridge Loader Cardiovascular Disease 04/12/19 2 documented as of this encounter
--- OUTSIDE RECORDS SUMMARY | 2024-07-11 12:28 | XMS_ITS | Encounter Summary ---
Author Organization [facility] Address [address] [place] [address] Phone Care Team Providers Care Customs Compliance Specialist Name Role Phone Baldomero Dominguez MD Primary Care Provider [phone] Jaciel Melo MD Unavailable [phone] Encounter Details Date Type Department Care Team (Late st Contact Info) Description 07/23/[address] [facility] Surgery [address] [place] [address] Medical Office [address] [place] [address] Darleen Foster, BS Social History Tobacco Use Types Packs/Day Years Used Date Smoking Tobacco: Never Smokeless Tobacco: Never Alcohol Use Standard Drinks/Week Comments Yes 0 (1 standard drink = 0.6 oz pur e alcohol) occasional wine Comments No Sex and Gender Information Value Date Recorded Sex Assigned at Not on file Legal Sex Female 1:19 PM BLOWER FEEDER DYED RAW STOCK Gender Identity Not on file Sexual Orientation Not on file documented as of this encounter Miscellaneous Notes * Telephone Encounter - Darleen Foster - 07/23/2020 3:45 PM CST Lm for pt to [facility] to complete C-19 Screening. ER FEEDER DYED RAW STOCK documented in this encounter Plan of Treatment Not on file documented as of this encounter Visit Diagnoses Not on filedocumented in this encounter Care Teams Customs Compliance Specialist Relationship Specialty Start Date End Date Baldomero Dominguez MD PCP - General 01/07/17 Jaciel Melo MD Drink Mixer Cardiovascular Disease 04/12/19 2 documented as of this encounter
--- OUTSIDE RECORDS SUMMARY | 2024-07-11 12:28 | XMS_ITS | Encounter Summary ---
Author Organization [facility] Healthcare Address [address] [place] [address] Care Team Providers Care Guest Service Manager Name Role Phone Baldomero Dominguez MD Primary Care Provider [phone] Jaciel Melo MD Unavailable [phone] Encounter Details Date Type Department Care Team (Late st Contact Info) Description 07/16/2020 9:45 AM VESSEL SLAGMAN - 07/16/2020 12:15 PM VESSEL SLAGMAN Surgery [facility] Operating Room [address] [place] [address] Thierno Blanc MD [address] [facility] [id number] [place] [address] LAPAROSCOPIC GASTRECTOMY - SLEEVE Surgery Details Date/Time Status Location OR Service Patient Class Case Class Case Type Trauma Case? 07/16/2020 9:[address] [facility] OPERATING ROOM OR Minimally Invasive Surgery Surgery [...] on file Legal Sex Female 1:19 PM VESSEL SLAGMAN Gender Identity Not on file Sexual Orientation Not on file documented as of this encounter Last Filed Vital Signs Vital Sign Reading Time Taken Comments Blood Pressure 160/76 07/16/2020 12:15 PM VESSEL SLAGMAN Pulse 77 07/16/2020 12:15 PM VESSEL SLAGMAN Temperature 36.4 ??C (97.5 ??F) 07/16/2020 11:[address] Respiratory Rate 16 07/16/2020 12:15 PM VESSEL SLAGMAN Oxygen Saturation 97% 07/16/2020 12:15 PM VESSEL SLAGMAN Inhaled Oxygen Concentration - - Weight - - Height 167.6 cm (5' 6 ) 07/16/2020 8:32 AM VESSEL SLAGMAN Body Mass Index - - documented in this encounter Discharge Summaries * Rubia Burleson MD - 07/17/2020 5:25 PM CST Inpatient Discharge Summary BRIEF OVERVIEW Admitting Provider: Thierno Blanc MD Discharge Provider: No att. providers found Primary Care Physician at Discharge: Baldomero Dominguez MD [phone] Admission Date: 07/16/2020 Discharge Date: 07/17/2020 Admission Location: [facility] Problems/Diagnoses: Principal Problem: Morbid obesity due [...] was admitted to the surgery floor, [facility] post-operative bariatric pathway. There, she was advanced [...] diet plan given to you by the square shear operator. -Follow a no added sugar liquid diet. This includes skim milk, creamed soup, cream of wheat, protein shakes or no added sugar [place] Instant Breakfast -Drink 64 ounces of fluid [...] of urine Commonly known as: LEVSIN multivit thlhuvjm-ypkb-TO-calcium 9 mg iron-400 mcg tablet Take 1 [...] Medicine, General Surgery Relationship: PCP - General [address] [place], [place] [id number] Next Steps: Follow up Cosigned by Thierno Blanc MD at 07/18/2020 3:08 PM VESSEL SLAGMAN EL SLAGMAN EL SLAGMAN documented in this encounter Medications at Time of Discharge multivit xrrhyyyk-bpiq-AB-fani cium (THERA-M) 9 mg iron-400 mcg tablet [...] Last Filled Start Date End Date multivit jqbdtmjj-wity-CZ-fani cium (THERA-M) 9 mg iron-400 mcg tablet [...] - 07/17/2020 2:00 PM CST Physical Therapy [facility] Physical Therapy Treatment Patient Name: Rowena Quesada Date of Service: 07/17/2020 Date of : 1965 Age: 55 y.o. female Room: [place] [address] Admit Date: 07/16/2020 Primary Diagnosis: MORBID (SEVERE) OBESITY DUE TO EXCESS CALORIES/[place] LAP, IRINA RESTRICT PROC, LONGITUDINAL GASTRECTOMY Referring [...] up. Pt able to complete with modified [place]. Transfers: Patient performs sit to and from stand with no device and modified independence. Patient uses BUEs for force production. Pt completed toilet transfer with modified [place]. Gait: Patient ambulates 280 feet with no [...] Recommendation: Home with family Padmini Keane DPT EL SLAGMAN * Priti Canales, OT - 07/17/2020 11:45 AM CST Occupational Therapy [facility] Occupational Therapy Treatment Patient Name: Rowena Quesada Date of Service: 07/17/2020 Date of : 1965 Age: 55 y.o.female Room: [place] [address] Admit Date: 07/16/2020 Primary Diagnosis: MORBID (SEVERE) OBESITY DUE TO EXCESS CALORIES/[place] LAP, IRINA RESTRICT PROC, LONGITUDINAL GASTRECTOMY Referring [...] daughters and significant other. Priti Canales, OT EL SLAGMAN * Lisa Chairez, RD - 07/17/2020 10:12 AM CST Nutrition Assessment Reason for Assessment: Initial Nutrition Assessment, Consult/Referral and Diet Education-bariatric diet progression education Encounter Date: 07/17/20 10:12 AM Nutrition Assessment and Plan: Patient is a 55 y.o. female. Admit Dx: MORBID (SEVERE) OBESITY DUE TO EXCESS CALORIES/[place] LAP, IRINA RESTRICT PROC, LONGITUDINAL GASTRECTOMY. Admitted [...] Bariatric Surgery Diet 2 Ad sajan Question: [facility] Diet type Answer: GI Diets 07/16/20 [...] lb) Height: 167.6 cm (5' 6 ) [place]. Jeor Equation (Overweight or Obese Patients): 1883 Equation Chosen to Use by RD: [facility] Total Energy Needs: 1883 kcal Total Energy Needs + Fever Factor: 1883 Estimated Protein Needs Type of Weight Used for Estimated Protein : [place] Protein Needs Based on g/k.2 Total Protein [...] diet plan given to you by the square shear operator. -Follow a no added sugar liquid diet. This includes skim milk, creamed soup, cream of wheat, protein shakes or no added sugar [place] Instant Breakfast -Drink 64 ounces of fluid per day to maintain hydration (this includes protein shakes). -Protein goal: 60 grams per day Adult Discharge Diet Diet Type: Other (specify) Explanatory Comment: . B2 diet. -If you are healing well by your doctor's visit, you will be advanced to a pureed diet (food thinned with liquids or blenderized). Lisa Chairez, MPH, RDN, LD Office: [phone] EL SLAGMAN * Henrietta Unger, PT - 07/17/2020 8:53 AM CST [facility] Physical Therapy Treatment Patient Name: Rowena Quesada Date of Service: 07/17/2020 Date of : 1965 Age: 55 y.o. female Room: [address] Admit Date: 07/16/2020 Primary Diagnosis: MORBID (SEVERE) OBESITY DUE TO EXCESS CALORIES/OH LAP, IRINA RESTRICT PROC, LONGITUDINAL GASTRECTOMY Referring [...] Recommendation: Home with family Henrietta Unger PT EL SLAGMAN * Rubia Burleson MD - 07/16/2020 4:00 [...] ppx: lovenox, SCDs Rubia Burleson MD 07/16/2020 EL SLAGMAN documented in this encounter H&P Notes * Pee Mukherjee III, MD - 07/16/2020 9:41 AM CST I have reviewed the H&P, examined the patient, and endorse the findings as written. Plan of Care : Based on the above findings, I consider Rowena Quesada to be an acceptable risk for : Procedure(s): LAPAROSCOPIC GASTRECTOMY - SLEEVE EL SLAGMAN Source Note - Rob Saunders MD - 07/09/2020 11:37 AM VESSEL SLAGMAN Images from the original note were not included. [facility] Preoperative Assessment and Planning Preoperative Evaluation Record Evaluation type/location: CPAP [facility] Planned procedure site: [facility] OR Date: 07/09/20 Anesthesia Evaluation Rowena Quesada is a 55 y.o. female Procedure(s): LAPAROSCOPIC GASTRECTOMY - SLEEVE Pre-Op Diagnosis Codes: * Morbid obesity due to excess calories ([facility]) [E66.01] HISTORY HPI 55 year old female with history of HTN, GERD, SVTShe is scheduled for laparoscopic gastric sleeve with Dr. Blanc. Past Medical History Information obtained from: patient and chart. Neurological Pertinent negatives: neuromuscular disease; CVA/stroke; TIA; CEA; dementia/mild cognitive impairment and psychiatric history Cardiovascular + Hypertension + Other arrhythmia (taking Diltiazem) - PSVT. Pertinent negatives: [place] ; CABG ; systolic/diastolic dysfunction w/o CHF ; valvular heart disease; valve replacement; pacemaker/ICD; PVD; DVT/PE; negative for CHF; unknown stent(s) type and hyperlipidemia Comments: Hx pf SVT managed by Dr. Martienz- Respiratory + Sleep apnea (TRACE) (dx on [...] COVID19 testing to be performed on 07/13/2020. [facility] will contact patient to scheduletesting. [...] No stress test available, only requested by office technology professor for chart completion Awaiting urine nicotine metabolites. [...] Medication protocol when under care of a TRUCK SERVICE TECHNICIAN Planned anesthesia: General Informed Consent: Anesthesia plan and risks discussed with patient. Consent and Attending signature: I and/or my designee have discussed the anesthesia plan, benefits, possible alternatives, parental presence at time of induction (if indicated), and clinically relevant risks that may include dental injury, unintentional awareness, and/or other complications. The patient and/or parent/legal guardian understand, and agree to proceed. All questions answered. EL SLAGMAN EL SLAGMAN EL SLAGMAN EL SLAGMAN EL SLAGMAN EL SLAGMAN EL SLAGMAN * Thierno Blanc MD - 07/16/2020 9:05 AM CST I have reviewed the H&P, examined the patient, and endorse the findings as written. Plan of Care : Based on the above findings, I consider Rowena Quesada to be an acceptable risk for : Procedure(s): LAPAROSCOPIC GASTRECTOMY - SLEEVE EL SLAGMAN Source Note - Rob Saunders MD - 07/09/2020 11:37 AM VESSEL SLAGMAN Images from the original note were not included. [facility] Preoperative Assessment and Planning Preoperative Evaluation Record Evaluation type/location: CPAP [facility] Planned procedure site: [facility] OR Date: 07/09/20 Anesthesia Evaluation Rowena Quesada is a 55 y.o. female Procedure(s): LAPAROSCOPIC GASTRECTOMY - SLEEVE Pre-Op Diagnosis Codes: * Morbid obesity due to excess calories ([facility]) [E66.01] HISTORY HPI 55 year old female with history of HTN, GERD, SVTShe is scheduled for laparoscopic gastric sleeve with Dr. Blanc. Past Medical History Information obtained from: patient and chart. Neurological Pertinent negatives: neuromuscular disease; CVA/stroke; TIA; CEA; dementia/mild cognitive impairment and psychiatric history Cardiovascular + Hypertension + Other arrhythmia (taking Diltiazem) - PSVT. Pertinent negatives: [place] ; CABG ; systolic/diastolic dysfunction w/o CHF [...] COVID19 testing to be performed on 07/13/2020. [facility] will contact patient to schedule [...] No stress test available, only requested by office technology professor for chart completion Awaiting urine nicotine metabolites. [...] Medication protocol when under care of a TRUCK SERVICE TECHNICIAN Planned anesthesia: General Informed Consent: Anesthesia plan and risks discussed with patient. Consent and Attending signature: I and/or my designee have discussed the anesthesia plan, benefits, possible alternatives, parental presence at time of induction (if indicated), and clinically relevant risks that may include dental injury, unintentional awareness, and/or other complications. The patient and/or parent/legal guardian understand, and agree to proceed. All questions answered. EL SLAGMAN EL SLAGMAN EL SLAGMAN EL SLAGMAN EL SLAGMAN EL SLAGMAN EL SLAGMAN documented in this encounter Consult Notes * Leydi Schwartz, PT - 07/16/2020 3:05 PM CST [facility] Physical Therapy Initial Evaluation Patient Name: Rowena Quesada Date of Service: 07/16/2020 Date of : 1965 Age: 55 y.o. 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 Falls Within the Last 6 Months: Yes: [...] Home with intermittent assist Leydi Schwartz PT EL SLAGMAN * Olivia Nicole, OT - 07/16/2020 12:45 PM CST [facility] Occupational Therapy Evaluation Patient Name: Rowena Quesada Date of Service: 07/16/2020 Date of : 1965 Age: 55 y.o.female Room: [address] Admit Date: 07/16/2020 Primary Diagnosis: MORBID (SEVERE) OBESITY DUE TO EXCESS CALORIES/[place] LAP, IRINA RESTRICT PROC, LONGITUDINAL GASTRECTOMY Referring [...] mobility Home ADL Equipment: None Level of [place]: Independent with ADLs, Independent with transfers and Independent with ambulation Driving: Yes 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 Assist from family. Olivia Nicole OT EL SLAGMAN documented in this encounter Nursing Notes * Caryn Saeed RN - 07/17/2020 5:31 PM CST Discharged home with instructions. Daughter here to transport via private vehicle. EL SLAGMAN documented in this encounter Miscellaneous Notes * Plan of Care - Caryn Saeed RN - 07/17/2020 1:17 PM CST Goals: Clinical Goals for the Shift: pain of 4 or less this shift,IS,ankle pumps,activity Summary: EL SLAGMAN * Plan of Care - Gladis Bray [...] healing without infection will improve Outcome: Progressing EL SLAGMAN * Plan of Care - Kamala Wilson [...] management, IS, SCDs, mobility, pedro I diet EL SLAGMAN * Op Note - Thierno Blanc MD - 07/16/2020 10:23 AM CST Preoperative diagnosis: Morbid obesity secondary to excess calories Postoperative diagnosis: Morbid obesity secondary to excess calories Operative procedure: Laparoscopic sleeve gastrectomy Anesthesia: General endotracheal Attending physician: Dr. Felton Blanc Surgeon: Dr. Felton Blanc 1st pharmacy sales assistant: Riley Mukherjee MD Brief Clinical history: [...] sleeve gastrectomy was created over a 40 Amharic bougie starting 6 cm proximal to the [...] angling towards the incisura angularis. A 40 Amharic bougie was passed down through the mouth [...] a running 4 O Monocryl subcuticular stitches. [place] cortez was applied and the patient was [...] and sequential compression devices for thromboprophy laxis. EL SLAGMAN documented in this encounter Plan of Treatment Not on file documented as of this encounter Procedures Procedure Name Priority Date/Time Associated Diagnosis Comments EGFR Routine 07/16/2020 11:00 PM VESSEL SLAGMAN CBC WITHOUT DIFFERENTIAL Routine 07/16/2020 11:00 PM VESSEL SLAGMAN BASIC METABOLIC PANEL Routine 07/16/2020 11:00 PM VESSEL SLAGMAN LAPAROSCOPIC GASTRECTOMY - SLEEVE 07/16/2020 10:00 AM VESSEL SLAGMAN Morbid obesity due to excess calories (CMS/HCC) SURGICAL PATHOLOGY Routine 07/16/2020 9: 46 AM VESSEL SLAGMAN Morbid obesity due to excess calories (CMS/HCC) POCT HCG, URINE Routine 07/16/2020 9:37 AM VESSEL SLAGMAN POCT COTININE Routine 07/16/2020 9:36 AM VESSEL SLAGMAN documented in this encounter Results * eGFR (07/16/2020 11:00 PM VESSEL SLAGMAN) eGFR >90 mL/min/1.7 3 m2 ALICIA SHARMA Comment: Interpretive Data Reference Interval Normal ?>/= 90 mL/min/1.73m2 Mildly decreased* ? 60 - 89 mL/min/1.73m2 Mildly to moderately decreased ?45 - 59 mL/min/1.73m2 Moderately to severely decreased ??30 - 44 mL/min/1.73m2 Severely decreased ?15 - 29 mL/min/1.73m2 Kidney Failure ?< 15 ??mL/min/1.73m2 *Relative to young adult level If -Scottish multiply value by 1.16. Estimated glomerular filtration [...] 2016. Blood specimen (specimen) 07/16/2020 11:00 PM VESSEL SLAGMAN 07/17/2020 5:37 AM VESSEL SLAGMAN Pee Mukherjee III, MD LAB BLOOD ORDER NICOLE Final Result [facility] [address] [facility]. Department [place] [address] * (ABNORMAL) Basic metabolic panel (07/16/2020 11:00 PM VESSEL SLAGMAN) Sodium 135 135 - 145 mmol/L CERNER [...] [facility] Blood specimen (specimen) 07/16/2020 11:00 PM VESSEL SLAGMAN 07/17/2020 5:37 AM VESSEL SLAGMAN Pee Mukherjee III, MD LAB BLOOD ORDER NICOLE Final Result Performing Organization Address [facility] Co de Phone Number ALICIA SHARMA [address] [employer] [place], [place] [id number] * (ABNORMAL) CBC without differential (07/16/2020 11:00 PM VESSEL SLAGMAN) WBC 12.1(H) 3.8 - 9.9 K/cumm CERNER [facility] Hgb 13.3 11.9 - 15.5 g/dL [facility]ER [facility] Hct 40.9 35.6 - 45.5 % [facility] Plt 311 150 - 400 K/cumm [facility] MPV 10.4 9.1 - 12.3 fL [facility] RBC 4.51 3.90 - 5.20 M/cumm [facility] MCV 90.7 81.3 - 96.4 fL [facility] MCH 29.5 27.1 - 33.3 pg [facility] MCHC 32.5 32.3 - 35.7 g/dL [facility] RDW CV 13.2 11.1 - 14.9 % [facility] RDW SD 44.2 35.7 - 48.1 fL [facility] NRBC abs 0.00 0.00 - 0.01 K/cumm [facility] Blood specimen (specimen) 07/16/2020 11:00 PM VESSEL SLAGMAN 07/17/2020 5:37 AM VESSEL SLAGMAN Pee Mukherjee III, MD LAB BLOOD ORDER NICOLE Final Result Performing Organization Address City/[facility]/ZIP Co de Phone Number ALICIA SHARMA [phone] [facility] [employer] [place], [place] [phone] * Surgical pathology (07/16/2020 9:46 AM VESSEL SLAGMAN) Tissue (Gastrectomy, sleeve) 07/16/2020 9:46 AM VESSEL SLAGMAN Narrative [facility] PATHOLOGY LAB - 07/21/2020 2:33 PM VESSEL SLAGMAN EPIC results best viewed via link to PDF [facility] [place] [address] SURGICAL PATHOLOGY REPORT FINAL Patient Name: ?? ROWENA QUESADA Gender: ??F : ??1965 (Age: 55) Address: ??[address] , [place], [place] ??[address] Hospital #: ??[id number] Taken:07/16/2020 Received:07/16/2020 Reported: 07/21/2020 Patient Type: WC Inpatient Client ?[facility] Service: Surgery Location: [facility] ADMT Physician(s): ??Gerry Adams Dr Diagnosis: A. ??Stomach, sleeve gastrectomy ? -Portion of stomach lined by oxyntic mucosa with no significant histopathologic abnormality fvw/07/21/2020 14:33 By this signature, I attest that the above diagnosis is based upon my personal examination of the slides(and/or other material indicated in the diagnosis). Caet Paredes M.D. Report Electronically Reviewed and Signed Out By ??Cate Paredes M.D. 07/21/2020 14:33:20 Microscopic Description and Comment: Microscopic examination substantiates the above diagnosis. Microscopic slide review and interpretation for this case was performed at [facility], Department of Surgical Pathology, [address] [facility], [place] [id number], ??[place], [place] ??[address] ?? CLIA # [id number] History: The patient is a 55-year-old woman [...] by the Surgical Pathology Department at [facility] as part of an ongoing software quality tester program and in compliance with federally mandated [...] determined by the Surgical Pathology Department of [facility]. ??It has not been cleared or approved by the U. S. Food and Drug Administration. IMAGES AND SCANNED DOCUMENTS, IF INCLUDED, ONLY VIEWABLE IN PDF VERSION OF REPORT Thierno Blanc MD LAB PATHOLOGY ORDERABLES Final Result Performing Organization Address [facility]/State/[facility] Co de Phone Number [facility] PATHOLOGY LAB [address] [address] * POCT hCG, urine (07/16/2020 9:37 AM VESSEL SLAGMAN) HCG, ur, POC Negative Lot Number [id number] QC Backgroud Clear Acceptable QC Control Line Acceptable Urine 07/16/2020 9:37 AM VESSEL SLAGMAN Thierno Blanc MD POINT OF CARE TEST ORDERABLES F inal Result * POCT cotinine (07/16/2020 9:36 AM VESSEL SLAGMAN) Cotinine, POC Negative Lot Number [id number] QC Negative Control Acceptable QC Positive Control Acceptable Urine 07/16/2020 9:36 AM VESSEL SLAGMAN Thierno Blanc MD POINT OF CARE TEST [...] days, Indications: PainIndications:Pain Given 07/17/2020 2:06 PM VESSEL SLAGMAN 1,000 mg Given 07/17/2020 7:07 AM VESSEL SLAGMAN 1,000 mg Given 07/16/2020 9:01 PM VESSEL SLAGMAN 1,000 mg bupivacaine (MARCAINE) 0.25 % (2.5 mg/mL) preservative free injection As needed, Starting on Wed07/16/20 at 1028, Intra-Op Given 07/16/2020 10:28 AM VESSEL SLAGMAN 60 mL Surgical Site celecoxib (CeleBREX) capsule 200 mg 200 mg, oral, 2 times daily, First dose on Wed07/16/20 at 2100, Indications: PainIndications:Pain Given 07/17/2020 9:42 AM VESSEL SLAGMAN 200 mg Given 07/16/2020 9:02 PM VESSEL SLAGMAN 200 mg cyclobenzaprine (FLEXERIL) tablet 10 mg 10 mg, oral, Every 8 hours scheduled, First dose on Wed07/16/20 at 2200, For 5 days Given 07/17/2020 2:06 PM VESSEL SLAGMAN 10 mg Given 07/17/2020 7:07 AM VESSEL SLAGMAN 10 mg Given 07/16/2020 9:02 PM VESSEL SLAGMAN 10 mg dilTIAZem CD/XR/XT (CARDIZEM CD,DILACOR XR) 24 hour capsule 120 mg 120 mg, oral, Nightly, First dose on Wed07/16/20 at 2100, Do not crush, chew, cut, dissolve, open or otherwise manipulate tablet/capsule., Indications: hypertension, can take up to two times per day, SVTIndications:hypertension,c an take up to two times per day, SVT Given 07/16/2020 9:03 PM VESSEL SLAGMAN 120 mg enoxaparin (LOVENOX) syringe 40 mg 40 mg, subcutaneous, Every 12 hours scheduled, First dose on Wed07/16/20 at 2100, Indications: Deep Vein Thrombosis PreventionIndications:Deep Vein Thrombosis Prevention Given 07/17/2020 9:41 AM VESSEL SLAGMAN 40 mg Left Lower Abdomen Given 07/16/2020 9:03 PM VESSEL SLAGMAN 40 mg Le ft Lower Abdomen famotidine (PEPCID) tablet 20 mg 20 mg, oral, 2 times daily, First dose on Wed07/16/20 at 2100, Indications: non-bleeding gastric disorderIndications:non-bleeding gastric disorder Given 07/17/2020 9:42 AM VESSEL SLAGMAN 20 mg Given 07/16/2020 9:04 PM VESSEL SLAGMAN 20 mg hyoscyamine (LEVSIN) sublingual tablet 125 mcg 125 mcg, oral, Every 6 hours scheduled, First dose on Wed07/16/20 at 1330, For 5 days, Indications: Urinary IncontinenceIndications:Urinary Incontinence Given 07/17/2020 12:49 PM VESSEL SLAGMAN 125 mcg Given 07/17/2020 7:07 AM VESSEL SLAGMAN 125 mcg Given 07/17/2020 12:50 AM VESSEL SLAGMAN 125 mcg metoprolol (LOPRESSOR) injection 5 mg [...] Wed07/17/20 at 0625 Given 07/17/2020 7:08 AM VESSEL SLAGMAN 4 mg oxyCODONE (ROXICODONE) tablet 5 mg 5 mg, oral, Every 6 hours PRN, 1st line for pain, Starting on Wed07/16/20 at 1250, Indications: PainIndications:Pain Given 07/17/2020 12:51 PM VESSEL SLAGMAN 5 mg Given 07/16/2020 11:03 PM VESSEL SLAGMAN 5 mg Given 07/16/2020 4:52 PM VESSEL SLAGMAN [address] (PROTONIX) extended release tablet 40 mg 40 mg, oral, Nightly, First dose (after last reorder) on Wed07/16/20 at 2100, Do not crush, chew, cut, dissolve, open or otherwise manipulate tablet/capsule., Indications: gerdIndications:gerd Given 07/16/2020 9:05 PM VESSEL SLAGMAN 40 mg sodium chloride 0.9 % irrigation As needed, Starting on Wed07/16/20 at 1029, Intra-Op Given 07/16/2020 10:29 AM VESSEL SLAGMAN 1,000 mL Surgical Site documented in this [...] Recently Administered Medications Times are shown in VESSEL SLAGMAN. Scheduled Medication Order 07/15/2020 07/16/2020 07/17/2020 acetaminophen [...] Kamala Wilson RN)2101 (Given - Provider: Gladis Bary, JENNIFER) 0707 (Given - Provider: Gladis Bray, [...] Thrombosis Prevention 912 (Given - Provider: Sara Rhoades RN) hyoscyamine (LEVSIN) sublingual tablet 125 mcg 125 mcg, oral, Every 6 hours scheduled, First dose on Wed07/16/20 at 1330, For 5 days, Indications: Urinary Incontinence 1402 (Given - Provider: Kamala Wilson RN)1714 (Given - Provider: Kamala Wilson RN) 0050 (Given - Provider: Gladis Bray RN)0707 (Given - Provider: Gladis Bray RN)1249 (Given - Provider: Caryn Saeed, RN) multivit ltgaeizf-kdzd-YY-calcium (THERA-M) tablet 1 tablet 1 tablet, oral, [...] 1 puff, inhalation, Every 6 hours PRN (socially responsible investment adviser), wheezing, Starting on Wed07/16/20 at 1255, Indications: allergies bupivacaine (MARCAINE) 0.25 % (2.5 mg/mL) preservative free injection (CANCELED) As needed, Starting on Wed07/16/20 at 1028, Intra-Op 1028 (Given - Provider: Thierno Blanc MD) HYDROmorphone (DILAUDID) injection 0.2 mg (CANCELED) 0.2 mg, intravenous, Administer over 2 Minutes, Every 5 min PRN, 2nd line for pain, Use as 1st line pain med for patients at [facility]. Use as 2nd line at [facility] after [...] metoprolol (LOPRESSOR) injection 5 mg 1 multivit pbqpfidx-zaiz-WZ-ca lcium (THERA-M) tablet 1 tablet 1 07/16/2020 [...] 20 documented in this encounter Care Teams Guest Service Manager Relationship Specialty Start Date End Date Baldomero Dominguez MD PCP - General 01/07/17 Jaciel Melo MD Emulsification Operator Cardiovascular Disease 04/12/19 2 documented as of this encounter
--- OUTSIDE RECORDS SUMMARY | 2024-07-11 12:28 | XMS_ITS | Encounter Summary ---
Author Organization [facility] Address [address] [place] [address] Care Team Providers Care Keycase Assembler Name Role Phone Baldomero Dominguez MD Primary Care Provider [phone] Jaciel Melo MD Unavailable [phone] Reason for Visit * Reason Comments New Patient Encounter Details Date Type Department Care Team (Late st Contact Info) Description 12/24/2020 8:30 AM CDT Office Visit [facility] Pulmonology [address] [place] [address] [place] [address] [place] [address] [address] [place] [address] Dyspnea and respiratory abnormalities (Primary Dx); Class [...] file Legal Sex Female 1:19 PM SENIOR 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 No pets. Crafts as hobby. Review of [...] documented as of this encounter Care Teams Keycase Assembler Relationship Specialty Start Date End Date Baldomero Dominguez MD PCP - General 01/07/17 Jaciel Melo MD Sludge Control Attendant Cardiovascular Disease 04/12/19 2 documented as of this encounter
--- OUTSIDE RECORDS SUMMARY | 2024-07-11 12:28 | XMS_ITS | Encounter Summary ---
Author Organization [facility] Address [address] [place] [address] Phone Care Team Providers Care Car Sales Consultant Name Role Phone Baldomero Dominguez MD Primary Care Provider [phone] Jaciel Melo MD Unavailable [phone] Reason for Visit * Reason Onset Date Comments Test Results 07/10/2020 Encounter Details Date Type Department Care Team (Late st Contact Info) Description 07/10/2020 Documentation [facility] Neuro Sleep [address] 6th [address] [place] [address] Olivia Klein MD [address] [place] [address] Test Results Social History Tobacco Use Types Packs/Day Years Used Date Smoking Tobacco: Never Smokeless Tobacco: Never Alcohol Use Standard Drinks/Week Comments Yes 0 (1 standard drink = 0.6 oz pur e alcohol) occasional wine Comments No Sex and Gender Information Value Date Recorded Sex Assigned at Not on file Legal Sex Female 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 Correa Communications: Patient preferred phone number: [phone] 9:40 - spoke with patient. Discussed how [...] Klein MD Sleep Medicine Clinical Fellow man. O MACHINE OPERATOR documented in this encounter Plan of Treatment Not on file documented as of this encounter Visit Diagnoses Not on filedocumented in this encounter Care Teams Car Sales Consultant Relationship Specialty Start Date End Date Baldomero Dominguez MD PCP - General 01/07/17 Jaciel Melo MD Bolt Sawyer Cardiovascular Disease 04/12/19 2 documented as of this encounter
--- OUTSIDE RECORDS SUMMARY | 2024-07-11 12:28 | XMS_ITS | Encounter Summary ---
Author Organization [facility] Address [address] [place] [address] Phone Care Team Providers Care Barrel Dedenting Machine Operator Name Role Phone Baldomero Dominguez MD Primary Care Provider [phone] Jaciel Melo MD Unavailable [phone] Encounter Details Date Type Department Care Team (Late st Contact Info) Description 07/09/2020 Telephone [facility] Neuro Sleep [address] 6th [address] [place] [address] Eduardo Dawson, RPSGT Social History Tobacco Use Types Packs/Day Years Used Date Smoking Tobacco: Never Smokeless Tobacco: Never Alcohol Use Standard Drinks/Week Comments Yes 0 (1 standard drink = 0.6 oz pur e alcohol) occasional wine Comments No Sex and Gender Information Value Date Recorded Sex Assigned at Not on file Legal Sex Female 1:19 PM DIRECTOR SAFETY COUNCIL Gender Identity Not on file Sexual Orientation Not on file documented as of this encounter Miscellaneous Notes * Telephone Encounter - Eduardo Dawson, RPSGT - 07/09/2020 2:34 PM DIRECTOR SAFETY COUNCIL Returned patients phone call from 1345 today.Patient [...] until she can get set up. . CTOR SAFETY COUNCIL documented in this encounter Plan of Treatment Not on file documented as of this encounter Visit Diagnoses Not on filedocumented in this encounter Care Teams Barrel Dedenting Machine Operator Relationship Specialty Start Date End Date Baldomero Dominguez MD PCP - General 01/07/17 Jaciel Melo MD Molder Fitting Cardiovascular Disease 04/12/19 2 documented as of this encounter
--- OUTSIDE RECORDS SUMMARY | 2024-07-11 12:28 | XMS_ITS | Encounter Summary ---
Author Organization [facility] Healthcare Address [address] [place] [address] Care Team Providers Care Proctologist Name Role Phone Baldomero Dominguez MD Primary Care Provider [phone] Jaciel Melo MD Unavailable [phone] Reason for Visit * Reason Onset Date Comments COVID-19 EVALUATION 09/28/2020 Encounter Details Date Type Department Care Team (Late st Contact Info) Description 09/28/2020 Telephone [facility] Healthcare Occupatiuonal Health [address] (Third Floor) [place] [address] Fernanda Rod RN COVID-19 EVALUATION Social History Tobacco Use Types Packs/Day Years Used Date Smoking Tobacco: Never Smokeless Tobacco: Never Alcohol Use Standard Drinks/Week Comments Yes 0 (1 standard drink = 0.6 oz pur e alcohol) occasional wine Comments No Sex and Gender Information Value Date Recorded Sex Assigned at Not on file Legal Sex Female 1:19 PM HOSPICE MUSIC THERAPIST Gender Identity Not on file Sexual Orientation Not on file documented as of this encounter Miscellaneous Notes * Telephone Encounter - Fernanda Rod RN - 09/28/2020 10:31 AM CST Employee COVID-19 Screening 06/08/2020 09/28/2020 Email: [email or web address] Employee/Student ID# [id number] Are you an employee or student? Employee Employee Employer: 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 You will be tested for both [...] Occupational Health will notify you and your racing manager when you can return to work. ??? Should your test result positive, [facility] will work with you to identify any close contacts you may have had at work. [facility] will then alert your work contacts directly; you do not have to. Your supervisor paste plant should consult with [facility] if they have any questions and before any communication with coworkers about a positive test. [facility] will help ensure that coworkers potentially at risk are notified and given appropriate advice without unnecessary disclosure of personal health information. ??? We will send you an email with self-quarantine instructions (see [facility] Guidance for At-Home Isolation: Employees). ??? You must follow any additional isolation or quarantine instructions provided to you from federal, state or local public health authorities. ??? You should let your supervisor paste plant know that you will not be coming to work. Although the Call Center will email your supervisor paste plant to confirm that you have been instructed not to come to work, it is still your responsibility to notify your supervisor paste plant as you would for any other work absence. You should receive an email from the call center with these instructions. The email will come from [email or web address]; if you do not receive it, please check to see if your email beverage server has automatically routed it to [facility] [facility]. ICE MUSIC THERAPIST documented in this encounter Plan of Treatment Not on file documented as of this encounter Results * COVID-19 Coronavirus RNA Nasopharyngeal (09/28/2020 11:52 AM HOSPICE MUSIC THERAPIST) COVID-19 RNA Not Detected [facility] Comment: Interpretive Data Synonyms for this test include: PCR and NAAT . ??Testing performed by the [facility] Molecular Infectious Disease Laboratory. The 2019-Novel [...] healthcare? Yes ALICIA [place] status? No ALICIA [facility] Group care resident? No ALICIA [facility] Hospitalized? No [facility]ICIA [facility] Is patient in ICU? No [facility] Symptomatic as defined by CDC? Yes [facility] Nasopharyngeal 09/28/2020 11 :52 AM HOSPICE MUSIC THERAPIST 09/28/2020 7:35 PM HOSPICE MUSIC THERAPIST Narrative ALICIA [facility] - 09/29/2020 4:27 AM HOSPICE MUSIC THERAPIST Patient is employed by/enrolled at:->[employer] What is the reason for testing?->Symptoms of COVID-19 in low-risk group, with concurrent influenza testing Date of Symptom Onset->09/26/20 us Dedra López MD LAB MICROBIOLOGY - GENERAL ORDERABLES Final Result ALICIA [facility] [address] [facility] Department [place] [address] documented in this encounter Visit Diagnoses Diagnosis Cough- Primary Cough documented in this encounter Additional Health Concerns Infection Onset Date Last Indicated Resolved Time COVID: Suspected 09/28/2020 09/28/2020 09/29/2020 4:28 AM HOSPICE MUSIC THERAPIST documented as of this encounter Care Teams Proctologist Relationship Specialty Start Date End Date Baldomero Dominguez MD PCP - General 01/07/17 Jaciel Melo MD Cover Seamer Cardiovascular Disease 04/12/19 2 documented as of this encounter
--- OUTSIDE RECORDS SUMMARY | 2024-07-11 12:28 | XMS_ITS | Encounter Summary ---
Author Organization [facility] Healthcare Address [address] [place] [address] Care Team Providers Care It Infrastructure Architect Name Role Phone Baldomero Dominguez MD Primary Care Provider [phone] Jaciel Melo MD Unavailable [phone] Encounter Details Date Type Department Care Team (Late st Contact Info) Description 07/13/2020 4:45 PM CORE FINISHER Lab [address] [address] Pre-operative laboratory examination Social History Tobacco Use Types Packs/Day Years Used Date Smoking Tobacco: Never Smokeless Tobacco: Never Alcohol Use Standard Drinks/Week Comments Yes 0 (1 standard drink = 0.6 oz pur e alcohol) occasional wine Comments No Sex and Gender Information Value Date Recorded Sex Assigned at Not on file Legal Sex Female 1:19 PM CORE FINISHER Gender Identity Not on file Sexual Orientation Not on file documented as of this encounter Plan of Treatment Not on file documented as of this encounter Procedures Procedure Name Priority Date/Time Associated Diagnosis Comments COVID-19 CORONAVIRUS RNA Routine 07/13/2020 10:36 AM CORE FINISHER Pre-operative laboratory examination documented in this encounter Results * COVID-19 Coronavirus RNA Nasopharyngeal (07/13/2020 10:36 AM CORE FINISHER) COVID-19 RNA Not Detected [facility] Comment: Testing performed as a component of [...] COVID-19. Interpretive Data Testing performed by the [facility] Molecular Infectious Disease Laboratory. The Novel Coronavirus [...] Unknown [facility] Comment:Testing performed by : [facility], [address] [place] [address]., [address] Employeed in healthcare? Unknown [facility] Comment:Testing performed by : [facility], [address] [place] [address]., [address] status? No [facility] Comment:Testing performed by : [facility], [address] [place] [address]., [address] Group care resident? Unknown [facility] Comment:Testing performed by : [facility], [address] [place] [address]., [address] Hospitalized? Unknown [facility] Comment:Testing performed by : [facility], [address] [place] [address]., [address] Is patient in ICU? Unknown [facility] Comment:Testing performed by : [facility], [address] [place] [address]., [address] Symptomatic as defined by CDC? No [facility] Comment:Testing performed by : [facility], [address], [place]., [address] Nasopharyngeal 07/13/2020 10 :36 AM CORE FINISHER 07/13/2020 9:34 PM CORE FINISHER Narrative ALICIA [facility] - 07/14/2020 8:28 PM CORE FINISHER What is the reason for testing?->Screening prior to scheduled procedure or surgery Thierno Blanc MD LAB MICROBIOLOGY - [facility] SAMM REYNOSO Final Result Performing Organization Address City/State/[facility] Co de Phone Number [facility] [address] [facility] [place] [address] documented in this encounter Visit Diagnoses Diagnosis Pre-operative laboratory examination Pre-procedural laboratory examination documented in this encounter Care Teams It Infrastructure Architect Relationship Specialty Start Date End Date Baldomero Dominguez MD PCP - General 01/07/17 Jaciel Melo MD Agency Service Representative Cardiovascular Disease 04/12/19 2 documented as of this encounter
--- OUTSIDE RECORDS SUMMARY | 2024-07-11 12:28 | XMS_ITS | Encounter Summary ---
Author Organization [facility] Healthcare Address [address] [place] [address] Care Team Providers Care Digital Associate Media Director Name Role Phone Baldomero Dominguez MD Primary Care Provider [phone] Jaciel Melo MD Unavailable [phone] Encounter Details Date Type Department Care Team (Late st Contact Info) Description 10/03/2020 Telephone [facility] Healthcare Occupatiuonal Health [address] [place] [address] [address] (Third Floor) [place] [address] Katherine Kee, JENNIFER Social History Tobacco Use Types Packs/Day Years Used Date Smoking Tobacco: Never Smokeless Tobacco: Never Alcohol Use Standard Drinks/Week Comments Yes 0 (1 standard drink = 0.6 oz pur e alcohol) occasional wine Comments No Sex and Gender Information Value Date Recorded Sex Assigned at Not on file Legal Sex Female 1:19 PM CLINICAL SERVICES SPECIALIST Gender Identity Not on file Sexual Orientation Not on file documented as of this encounter Miscellaneous Notes * Telephone Encounter - Katherine Kee RN - 10/03/2020 10:32 AM CLINICAL SERVICES SPECIALIST Rowena called the COVID call center stating [...] monitor your symptoms, and call us back ([phone]) for clearance to returnto work when you [...] 20 seconds. If needed, use a hand woodyard operator that contains at least 60% alcohol. - Clean and disinfect frequently touched surfaces such as tables, doorknobs, countertops, etc., daily. - Avoid touching your eyes, nose, and mouth as much as possible. - Do not share eating or drinking utensils. - Most importantly, if you start to develop symptoms including fever, cough and shortness of breath, please reach back out to us. ICAL SERVICES SPECIALIST documented in this encounter Plan of Treatment Not on file documented as of this encounter Visit Diagnoses Not on filedocumented in this encounter Care Teams Digital Associate Media Director Relationship Specialty Start Date End Date Baldomero Dominguez MD PCP - General 01/07/17 Jaciel Melo MD Setup Operator Cardiovascular Disease 04/12/19 2 documented as of this encounter
--- OUTSIDE RECORDS SUMMARY | 2024-07-11 12:28 | XMS_ITS | Encounter Summary ---
Author Organization [facility] Address [address] [facility] [address] [place] [address] Phone Care Team Providers Care Press Operator Printing Name Role Phone Baldomero Dominguez MD Primary Care Provider [phone] Jaciel Melo MD Unavailable [phone] Encounter Details Date Type Department Care Team (Late st Contact Info) Description 08/05/2020 Orders Only [facility] Surgery [address] [facility] Medical Office Building [address] [place] [address] Berry Atkins, SPA ASSISTANT MANAGER [address] [facility] [phone] [place] [address] Social History Tobacco Use Types Packs/Day Years Used Date Smoking Tobacco: Never Smokeless Tobacco: Never Alcohol Use Standard Drinks/Week Comments Yes 0 (1 standard drink = 0.6 oz pur e alcohol) occasional wine Comments No Sex and Gender Information Value Date Recorded Sex Assigned at Not on file Legal Sex Female 1:19 PM SOFTWARE ENGINEER MOBILE Gender Identity Not on file Sexual Orientation Not on file documented as of this encounter Ordered Prescriptions Prescription Sig Dispense Quantity Refills Last Filled Start Date End Date ondansetron (ZOFRAN) 4 mg tablet Take 1 tablet (4 mg total) by mouth every 8 (eight) hours as needed for nausea or vomiting 20 tablet 3 08/05/2020 2 documented in this encounter Progress Notes * Berry Atkins, SHIVANI - 08/05/2020 10:10 AM CST Pt calls the office c/o nausea for the past 3 days. She states that she cannot use the sublingual zofran as it makes her more nauseated. She denies vomtiing. I will prescribe oral zofran. I asked thept to do a clear liquid diet for 24 hours and then advance to full liquids. Pt is laying in bed nicky long. Encouraged pt to stay up during the day and go for several short walks. I gave her several suggestions including gatorade zero and other sports drinks as well as pedalyte to encourage hydration. WARE ENGINEER MOBILE documented in this encounter Plan of Treatment Not on file documented as of this encounter Visit Diagnoses Not on filedocumented in this encounter Care Teams Press Operator Printing Relationship Specialty Start Date End Date Baldomero Dominguez MD PCP - General 01/07/17 Jaciel Melo MD Anode Worker Cardiovascular Disease 04/12/19 2 documented as of this encounter
--- OUTSIDE RECORDS SUMMARY | 2024-07-11 12:28 | XMS_ITS | Encounter Summary ---
Author Organization [facility] Healthcare Address [address] [place] [address] Care Team Providers Care Print And Pattern Designer Name Role Phone Baldomero Dominguez MD Primary Care Provider [phone] Jaciel Melo MD Unavailable [phone] Encounter Details Date Type Department Care Team (Late st Contact Info) Description 09/28/2020 4:35 PM STEEPLECHASE JOCKEY Lab [address] [address] Cough Social History Tobacco Use Types Packs/Day Years Used Date Smoking Tobacco: Never Smokeless Tobacco: Never Alcohol Use Standard Drinks/Week Comments Yes 0 (1 standard drink = 0.6 oz pur e alcohol) occasional wine Comments No Sex and Gender Information Value Date Recorded Sex Assigned at Not on file Legal Sex Female 1:19 PM STEEPLECHASE JOCKEY Gender Identity Not on file Sexual Orientation Not on file documented as of this encounter Plan of Treatment Not on file documented as of this encounter Procedures Procedure Name Priority Date/Time Associated Diagnosis Comments COVID-19 CORONAVIRUS RNA Routine 09/28/2020 11:52 AM STEEPLECHASE JOCKEY Cough documented in this encounter Results * COVID-19 Coronavirus RNA Nasopharyngeal (09/28/2020 11:52 AM STEEPLECHASE JOCKEY) COVID-19 RNA Not Detected [facility] Comment: Interpretive Data Synonyms for this test include: PCR and NAAT . ??Testing performed by the [facility] Molecular Infectious Disease Laboratory. The 2018-Novel Coronavirus [...] 29, 2020. Employeed in healthcare? Yes [facility] status? No [facility] Group care resident? No [facility] Hospitalized? No [facility] Is patient in ICU? No [facility] Symptomatic as defined by CDC? Yes [facility] Nasopharyngeal 09/28/2020 11 :52 AM STEEPLECHASE JOCKEY 09/28/2020 7:35 PM STEEPLECHASE JOCKEY Narrative [facility] - 09/29/2020 4:27 AM STEEPLECHASE JOCKEY Patient is employed by/enrolled at:->[employer] What is the reason for testing?->Symptoms of COVID-19 in low-risk group, with concurrent influenza testing Date of Symptom Onset->09/26/20 Dedra López MD LAB MICROBIOLOGY - GENERAL ORDERABLES Final Result [facility] One [facility] Department [place] [address] documented in this encounter Visit Diagnoses Diagnosis Cough documented in this encounter Additional Health Concerns Infection Onset Date Last Indicated Resolved Time COVID: Suspected 09/28/2020 09/28/2020 09/29/2020 4:28 AM STEEPLECHASE JOCKEY documented as of this encounter Care Teams Print And Pattern Designer Relationship Specialty Start Date End Date Baldomero Dominguez MD PCP - General 01/07/17 Jaciel Melo MD Aluminum Shingle Roofer Cardiovascular Disease 04/12/19 2 documented as of this encounter
--- OUTSIDE RECORDS SUMMARY | 2024-07-11 12:28 | XMS_ITS | Encounter Summary ---
Author Organization [facility] Address [address] [place] [address] Phone Care Team Providers Care Fastener Sewing Machine Operator Name Role Phone Baldomero Dominguez MD Primary Care Provider [phone] Jaciel Melo MD Unavailable [phone] Encounter Details Date Type Department Care Team (Late st Contact Info) Description 08/26/2020 Telephone [facility] Surgery [address] [facility] 8th [place] [address] [place] [address] Cristina España Social History Tobacco Use Types Packs/Day Years Used Date Smoking Tobacco: Never Smokeless Tobacco: Never Alcohol Use Standard Drinks/Week Comments Yes 0 (1 standard drink = 0.6 oz pur e alcohol) occasional wine Comments No Sex and Gender Information Value Date Recorded Sex Assigned at Not on file Legal Sex Female 1:19 PM SOCK DRIER Gender Identity Not on file Sexual Orientation Not on file documented as of this encounter Miscellaneous Notes * Telephone Encounter - Cristina España - 10/16/2020 11:46 AM CDT error documented in this encounter Plan of Treatment Not on file documented as of this encounter Visit Diagnoses Not on filedocumented in this encounter Additional Health Concerns Infection Onset Date Last Indicated Resolved Time COVID: Suspected 09/28/2020 09/28/2020 09/29/2020 4:28 AM SOCK DRIER documented as of this encounter Care Teams Fastener Sewing Machine Operator Relationship Specialty Start Date End Date Baldomero Dominguez MD PCP - General 01/07/17 Jaciel Melo MD Facility Assistant Cardiovascular Disease 04/12/19 2 documented as of this encounter
--- OUTSIDE RECORDS SUMMARY | 2024-07-11 12:28 | XMS_ITS | Encounter Summary ---
Author Organization [facility] Address [address] [facility] [address] [place] [address] Phone Care Team Providers Care Ticketing Agent Name Role Phone Baldomero Dominguez MD Primary Care Provider [phone] Jaciel Melo MD Unavailable [phone] Encounter Details Date Type Department Care Team (Late st Contact Info) Description 08/15/2020 Orders Only [facility] Surgery [address] [facility] Medical Office Building [address] [place] [address] Thierno Blanc MD [address] [facility] [id number] [place] [address] Social History Tobacco Use Types Packs/Day Years Used Date Smoking Tobacco: Never Smokeless Tobacco: Never Alcohol Use Standard Drinks/Week Comments Yes 0 (1 standard drink = 0.6 oz pur e alcohol) occasional wine Comments No Sex and Gender Information Value Date Recorded Sex Assigned at Not on file Legal Sex Female 1:19 PM STERILE PROCESSING TECHNICIAN Gender Identity Not on file Sexual [...] meantime with any other questions or concerns. ILE PROCESSING TECHNICIAN documented in this encounter Plan of Treatment Not on file documented as of this encounter Visit Diagnoses Not on filedocumented in this encounter Care Teams Ticketing Agent Relationship Specialty Start Date End Date Baldomero Dominguez MD PCP - General 01/07/17 Jaciel Melo MD Jewel Hole Driller Cardiovascular Disease 04/12/19 2 documented as of this encounter
--- OUTSIDE RECORDS SUMMARY | 2024-07-11 12:28 | XMS_ITS | Encounter Summary ---
Author Organization [facility] Address [address] [facility] [address] [place] [address] Phone Care Team Providers Care Asian Studies Professor Name Role Phone Baldomero Dominguez MD Primary Care Provider [phone] Jaciel Melo MD Unavailable [phone] Encounter Details Date Type Department Care Team (Late st Contact Info) Description 07/24/2020 1:00 PM AUTOMOTIVE INTERNET SALES MANAGER Telemedicine [facility] Medical Office Building [address] [place] [address] Berry Atkins, CASTING AND PASTING SUPERVISOR [address] [facility] [id number] [place] [address] Bariatric surgery status (Primary Dx); Intestinal malabsorption, unspecified type; Morbid obesity (CMS/HCC) Social History Tobacco Use Types Packs/Day Years Used Date Smoking Tobacco: Never Smokeless Tobacco: Never Alcohol Use Standard Drinks/Week Comments Yes 0 (1 standard drink = 0.6 oz pur e alcohol) occasional wine Comments No Sex and Gender Information Value Date Recorded Sex Assigned at Not on file Legal Sex Female 1:19 PM AUTOMOTIVE INTERNET SALES MANAGER Gender Identity Not on file Sexual Orientation Not on file documented as of this encounter Progress Notes * Berry Atkins NP - 07/24/2020 1:00 PM CST [facility] Post-Operative Clinic Note This was a telemedicine visit with Rowena Quesada alone which took place via Real-time video connection (Patient Conversation Media, Textinglyom or similar). During the visit, I was located at home and the patient was located at [place]. The patient visit started at 1300 and ended at 1320. Total encounter time was 20 minutes, which includes time spent today on pre charting, the patient encounter, and post charting. Greater than 50% of the visit was spent in counseling and coordination of care. Visit started on zoom and pt had issues with audio and switched to telephone. The patient: has been informed that the visit may not be secure and acknowledged the information. The option of participating in a telephone or video visit during the [facility] [place] [address] emergencywas explained to them. After being given an opportunity to ask questions about and discuss this type of visit, they verbally consented to proceeding with the telephone/video visit and understand thatthis service replaces an office visit. Berry Atkins NP CHIEF COMPLAINT: Rowena Quesada presents for a post-operative clinic visit following recent surgery. Pt is 8 days post surgery and has lost 12 lbs. INTERVAL HISTORY: The patient is a 55 y.o. female who has been doing well in her postoperative course after Laparoscopic Sleeve Gastrectomy. She is tolerating the weight loss surgery diet without difficulty. Protein and fluid intake are adequate. She has no complaints today. She is taking her medications as instructed including MVI, B12, Ca, pepcid and ursodiol. I stopped her ursodiol today as the pt does not have a gall bladder. We discussed ways to increase her fluid and protein intake. She is getting in about 45 grams of protein and about 40 ounces of water. The patient has the following conditions: TRACE: no GERD: no Hypertension: yes, and is on 2 medications for this Hyperlipidemia: no Diabetes: no Wt Readings from Last 7 Encounters: 07/16/20 126.1 kg (278 lb) 07/09/20 129.3 kg (285 lb) 07/09/20 128.5 kg (283 lb 3.2 oz) 04/17/20 130.2 kg (287 lb) 03/12/20 131.2 kg (289 lb 3.2 oz) 03/06/20 128.8 kg (284 lb) 03/01/20 128.8 kg (284 lb) PHYSICAL EXAMINATION: Pt reports weight at 266 General: Well nourished, well-groomed, in no acute distress. Neuro: Alert and oriented x 3. Mood and affect are approciate. Pt will send a pic of her incisions through [employer]. ASSESSMENT AND PLAN: Patient Active Problem List Diagnosis ??? Arthralgia of hip ??? Morbid obesity (CMS/HCC) ??? Crohn's disease (CMS/HCC) ??? Paroxysmal supraventricular tachycardia (CMS/HCC) ??? Morbid obesity due to excess calories (CMS/HCC) The patient is a 55 y.o. female who presents to clinic today status-post Laparoscopic Sleeve Gastrectomy . The patient is doing well in her postoperative course. We will plan to see the patient back in 4 weeks for her next postoperative visit. The patient is encouraged to call the clinic with any questions or concerns in the meantime. The patient demonstrates understanding and is amenable to the above outlined plan. There are no barriers to education today. Berry Atkins NP Nurse Practitioner Minimally Invasive Surgery Department of Surgery p: [phone] MOTIVE INTERNET SALES MANAGER documented in this encounter Plan of Treatment Not on file documented as of this encounter Visit Diagnoses Diagnosis Bariatric surgery status- Primary Intestinal malabsorption, unspecified type Morbid obesity (HCC) Morbid obesity documented in this encounter Care Teams Asian Studies Professor Relationship Specialty Start Date End Date Baldomero Dominguez MD PCP - General 01/07/17 Jaciel Melo MD Luggage Attendant Cardiovascular Disease 04/12/19 2 documented as of this encounter
--- OUTSIDE RECORDS SUMMARY | 2024-07-11 12:28 | XMS_ITS | Encounter Summary ---
Author Organization [facility] Healthcare Address [address] [place] [address] Care Team Providers Care Geochemistry Teacher Name Role Phone Baldomero Dominguez MD Primary Care Provider [phone] Jaciel Melo MD Unavailable [phone] Encounter Details Date Type Department Care Team (Latest Contact Info) Description 07/16/2020 8:13 AM X RAY INSPECTOR - 07/17/2020 5:25 PM X RAY INSPECTOR Hospital Encounter [facility] [address] [id number] [place] [address] Thierno Blanc MD [address] [facility] [id number] [place] [address] Morbid obesity due to excess calories (CMS/HCC) [...] on file Legal Sex Female 1:19 PM X RAY INSPECTOR Gender Identity Not on file Sexual Orientation Not on file documented as of this encounter Last Filed Vital Signs Vital Sign Reading Time Taken Comments Blood Pressure 146/71 07/17/2020 3:33 PM X RAY INSPECTOR Pulse 64 07/17/2020 3:33 PM X RAY INSPECTOR Temperature 36.9 ??C (98.4 ??F) 07/17/2020 3:33 PM CS T Respiratory Rate 20 07/17/2020 7:52 AM X RAY INSPECTOR Oxygen Saturation 97% 07/17/2020 3:33 PM X RAY INSPECTOR Inhaled Oxygen Concentration - - Weight 126.1 kg (278 lb) 07/16/2020 12:34 PM X RAY INSPECTOR Height 167.6 cm (5' 6 ) 07/16/2020 12:34 PM X RAY INSPECTOR Body Mass Index 44.87 07/16/2020 12:34 PM X RAY INSPECTOR documented in this encounter Discharge Diagnoses Diagnosis [...] - BILATERAL PRIMARY OSTEOARTHRITIS OF KNEE Other director long term care (current) drug therapy - OTHER SENIOR LIVING (CURRENT) DRUG THERAPY intermodal dispatcher (current) use of non-steroidal anti-inflammatories (nsaid) - SENIOR LIVING (CURRENT) USE OF NON-STEROIDAL ANTI-INFLAMMATORIES (NSAID) Body [...] Care Physician at Discharge: Baldomero Dominguez MD [phone] Admission Date: 07/16/2020 Discharge Date: 07/17/2020 Admission Location: [facility] Problems/Diagnoses: Principal Problem: Morbid obesity due [...] operatively was admitted to the surgery [facility]. There, she was [...] diet plan given to you by the disease case manager rn. -Follow a no added sugar liquid diet. This includes skim milk, creamed soup, cream of wheat, protein shakes or no added sugar [place] Instant Breakfast -Drink 64 ounces of fluid [...] of urine Commonly known as: LEVSIN multivit ygvwunku-moiw-AR-calcium 9 mg iron-400 mcg tablet Take 1 [...] Medicine, General Surgery Relationship: PCP - General [address] [place] [address] [address] [place] [address] Next Steps: Follow up Cosigned by Thierno Blanc MD at 07/18/2020 3:08 PM X RAY INSPECTOR X RAY INSPECTOR X RAY INSPECTOR documented in this encounter Medications at Time of Discharge multivit kkbseega-ztua-YU-fani cium (THERA-M) 9 mg iron-400 mcg tablet [...] Last Filled Start Date End Date multivit jniianac-fwwp-UC-fani cium (THERA-M) 9 mg iron-400 mcg tablet [...] - 07/17/2020 2:00 PM CST Physical Therapy [facility] Physical Therapy Treatment Patient Name: Rowena Quesada Date of Service: 07/17/2020 Date of : 1965 Age: 55 y.o. female Room: [address] Admit Date: 07/16/2020 Primary Diagnosis: MORBID (SEVERE) OBESITY DUE TO EXCESS CALORIES/DC LAP, IRINA RESTRICT PROC, LONGITUDINAL GASTRECTOMY Referring [...] up. Pt able to complete with modified [place]. Transfers: Patient performs sit to and from stand with no device and modified independence. Patient uses BUEs for force production. Pt completed toilet transfer with modified [place]. Gait: Patient ambulates 280 feet with no [...] Recommendation: Home with family Padmini Keane DPT X RAY INSPECTOR * Priti Canales, OT - 07/17/2020 11:45 AM CST Occupational Therapy [facility] Occupational Therapy Treatment Patient Name: Rowena Quesada Date of Service: 07/17/2020 Date of : 1965 Age: 55 y.o.female Room: [address] Admit Date: 07/16/2020 Primary Diagnosis: MORBID (SEVERE) OBESITY DUE TO EXCESS CALORIES/DC LAP, IRINA RESTRICT PROC, LONGITUDINAL GASTRECTOMY Referring [...] daughters and significant other. Priti Canales OT X RAY INSPECTOR * Lisa Chairez, HODAN - 07/17/2020 10:12 AM CST Nutrition Assessment Reason for Assessment: Initial Nutrition Assessment, Consult/Referral and Diet Education-bariatric diet progression education Encounter Date: 07/17/20 10:12 AM Nutrition Assessment and Plan: Patient is a 55 y.o. female. Admit Dx: MORBID (SEVERE) OBESITY DUE TO EXCESS CALORIES/DC LAP, IRINA RESTRICT PROC, LONGITUDINAL GASTRECTOMY. Admitted [...] Bariatric Surgery Diet 2 Ad sajan Question: ([facility]) Diet type Answer: GI Diets 07/16/20 [...] lb) Height: 167.6 cm (5' 6 ) [place]- [place] Equation (Overweight or Obese Patients): 1883 Equation Chosen to Use by RD: Chinedu Caba Total Energy Needs: 1883 kcal Total Energy Needs + Fever Factor: 1883 Estimated Protein Needs Type of Weight Used for Estimated Protein : [place] Protein Needs Based on g/k.2 Total Protein [...] diet plan given to you by the disease case manager rn. -Follow a no added sugar liquid diet. This includes skim milk, creamed soup, cream of wheat, protein shakes or no added sugar [place] Instant Breakfast -Drink 64 ounces of fluid per day to maintain hydration (this includes protein shakes). -Protein goal: 60 grams per day Adult Discharge Diet Diet Type: Other (specify) Explanatory Comment: . B2 diet. -If you are healing well by your doctor's visit, you will be advanced to a pureed diet (food thinned with liquids or blenderized). Lisa Chairez, MPH, RDN, LD Office: [phone] X RAY INSPECTOR * Henrietta Unger, PT - 07/17/2020 8:53 AM CST [facility] Physical Therapy Treatment Patient Name: Rowena Quesada Date of Service: 07/17/2020 Date of : 1965 Age: 55 y.o. female Room: [address] Admit Date: 07/16/2020 Primary Diagnosis: MORBID (SEVERE) OBESITY DUE TO EXCESS CALORIES/DC LAP, IRINA RESTRICT PROC, LONGITUDINAL GASTRECTOMY Referring [...] Recommendation: Home with family Henrietta Unger PT X RAY INSPECTOR * Rubia Burleson MD - 07/16/2020 4:00 [...] ppx: lovenox, SCDs Rubia Burleson MD 07/16/2020 X RAY INSPECTOR documented in this encounter H&P Notes * Pee Mukherjee III, MD - 07/16/2020 9:41 AM CST I have reviewed the H&P, examined the patient, and endorse the findings as written. Plan of Care : Based on the above findings, I consider Rowena Quesada to be an acceptable risk for : Procedure(s): LAPAROSCOPIC GASTRECTOMY - SLEEVE X RAY INSPECTOR Source Note - Rob Saunders MD - 07/09/2020 11:37 AM X RAY INSPECTOR Images from the original note were not included. [facility] Preoperative Assessment and Planning Preoperative Evaluation Record Evaluation type/location: [facility] Planned procedure site: [facility] OR Date: 07/09/20 Anesthesia Evaluation Rowena Quesada is a 55 y.o. female Procedure(s): LAPAROSCOPIC GASTRECTOMY - SLEEVE Pre-Op Diagnosis Codes: * Morbid obesity due to excess calories (CMS/[facility]) [E66.01] HISTORY HPI 55 year old female with history of HTN, GERD, SVTShe is scheduled for laparoscopic gastric sleeve with Dr. Blanc. Past Medical History Information obtained from: patient and chart. Neurological Pertinent negatives: neuromuscular disease; CVA/stroke; TIA; CEA; dementia/mild cognitive impairment and psychiatric history Cardiovascular + Hypertension + Other arrhythmia (taking Diltiazem) - PSVT. Pertinent negatives: GA ; CABG ; systolic/diastolic dysfunction w/o CHF ; valvular heart disease; valve replacement; pacemaker/ICD; PVD; DVT/PE; negative for CHF; unknown stent(s) type and hyperlipidemia Comments: Hx pf SVT managed by Dr. Martinze- Respiratory + Sleep apnea (TRACE) (dx on [...] testing to be performed on 07/13/2020. [facility] will contact patient to schedule [...] No stress test available, only requested by furniture sales associate for chart completion Awaiting urine nicotine metabolites. [...] Medication protocol when under care of a SHIRT MAKER Planned anesthesia: General Informed Consent: Anesthesia plan and risks discussed with patient. Consent and Attending signature: I and/or my designee have discussed the anesthesia plan, benefits, possible alternatives, parental presence at time of induction (if indicated), and clinically relevant risks that may include dental injury, unintentional awareness, and/or other complications. The patient and/or parent/legal guardian understand, and agree to proceed. All questions answered. X RAY INSPECTOR X RAY INSPECTOR X RAY INSPECTOR X RAY INSPECTOR X RAY INSPECTOR X RAY INSPECTOR X RAY INSPECTOR * Thierno Blanc MD - 07/16/2020 9:05 AM CST I have reviewed the H&P, examined the patient, and endorse the findings as written. Plan of Care : Based on the above findings, I consider Rowena Quesada to be an acceptable risk for : Procedure(s): LAPAROSCOPIC GASTRECTOMY - SLEEVE X RAY INSPECTOR Source Note - Rob Saunders MD - 07/09/2020 11:37 AM X RAY INSPECTOR Images from the original note were not included. [facility] Preoperative [facility] and Planning Preoperative Evaluation Record Evaluation type/location: [facility] Planned procedure site: [facility] OR Date: 07/09/20 Anesthesia Evaluation Rowena Quesada [...] arrhythmia (taking Diltiazem) - PSVT. Pertinent negatives: GA ; CABG ; systolic/diastolic dysfunction w/o CHF [...] testing to be performed on 07/13/2020. [facility] will contact patient to schedule [...] No stress test available, only requested by furniture sales associate for chart completion Awaiting urine nicotine metabolites. [...] Medication protocol when under care of a SHIRT MAKER Planned anesthesia: General Informed Consent: Anesthesia plan and risks discussed with patient. Consent and Attending signature: I and/or my designee have discussed the anesthesia plan, benefits, possible alternatives, parental presence at time of induction (if indicated), and clinically relevant risks that may include dental injury, unintentional awareness, and/or other complications. The patient and/or parent/legal guardian understand, and agree to proceed. All questions answered. X RAY INSPECTOR X RAY INSPECTOR X RAY INSPECTOR X RAY INSPECTOR X RAY INSPECTOR X RAY INSPECTOR X RAY INSPECTOR documented in this encounter Consult Notes * Leydi Schwartz, PT - 07/16/2020 3:05 PM CST [facility] Physical Therapy Initial Evaluation Patient Name: Rowena Quesada Date of Service: 07/16/2020 Date of : 1965 Age: 55 y.o. 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 Assist from family. Olivia Nicole OT X RAY INSPECTOR documented in this encounter Nursing Notes * Caryn Saeed RN - 07/17/2020 5:31 PM CST Discharged home with instructions. Daughter here to transport via private vehicle. X RAY INSPECTOR documented in this encounter Miscellaneous Notes * Plan of Care - Caryn Saeed RN - 07/17/2020 1:17 PM CST Goals: Clinical Goals for the Shift: pain of 4 or less this shift,IS,ankle pumps,activity Summary: X RAY INSPECTOR * Plan of Care - Gladis Bray [...] healing without infection will improve Outcome: Progressing X RAY INSPECTOR * Plan of Care - Kamala Wilson [...] management, IS, SCDs, mobility, pedro I diet X RAY INSPECTOR * Op Note - Thierno Blanc MD - 07/16/2020 10:23 AM CST Preoperative diagnosis: Morbid obesity secondary to excess calories Postoperative diagnosis: Morbid obesity secondary to excess calories Operative procedure: Laparoscopic sleeve gastrectomy Anesthesia: General endotracheal Attending physician: Dr. Felton Blanc Surgeon: Dr. Felton Blanc 1st optical assistant: Riley Mukherjee MD Brief Clinical history: [...] sleeve gastrectomy was created over a 40 Georgian bougie starting 6 cm proximal to the [...] angling towards the incisura angularis. A 40 Georgian bougie was passed down through the mouth [...] a running 4 O Monocryl subcuticular stitches. [place] cortez was applied and the patient was [...] and sequential compression devices for thromboprophy laxis. X RAY INSPECTOR documented in this encounter Plan of Treatment Not on file documented as of this encounter Procedures Procedure Name Priority Date/Time Associated Diagnosis Comments EGFR Routine 07/16/2020 11:00 PM X RAY INSPECTOR CBC WITHOUT DIFFERENTIAL Routine 07/16/2020 11:00 PM X RAY INSPECTOR BASIC METABOLIC PANEL Routine 07/16/2020 11:00 PM X RAY INSPECTOR LAPAROSCOPIC GASTRECTOMY - SLEEVE 07/16/2020 10:00 AM X RAY INSPECTOR Morbid obesity due to excess calories (CMS/HCC) SURGICAL PATHOLOGY Routine 07/16/2020 9: 46 AM X RAY INSPECTOR Morbid obesity due to excess calories (CMS/HCC) POCT HCG, URINE Routine 07/16/2020 9:37 AM X RAY INSPECTOR POCT COTININE Routine 07/16/2020 9:36 AM X RAY INSPECTOR documented in this encounter Results * eGFR (07/16/2020 11:00 PM X RAY INSPECTOR) eGFR >90 mL/min/1.7 3 m2 [facility] Comment: Interpretive Data Reference Interval Normal ?>/= 90 mL/min/1.73m2 Mildly decreased* ? 60 - 89 mL/min/1.73m2 Mildly to moderately decreased ?45 - 59 mL/min/1.73m2 Moderately to severely decreased ??30 - 44 mL/min/1.73m2 Severely decreased ?15 - 29 mL/min/1.73m2 Kidney Failure ?< 15 ??mL/min/1.73m2 *Relative to young adult level If -Mongolian multiply value by 1.16. Estimated glomerular filtration [...] 2016. Blood specimen (specimen) 07/16/2020 11:00 PM X RAY INSPECTOR 07/17/2020 5:37 AM X RAY INSPECTOR us Pee Mukherjee III, MD LAB BLOOD ORDER NICOLE Final Result [facility] [address] [facility]. Department [place] [address] * (ABNORMAL) Basic metabolic panel (07/16/2020 11:00 PM X RAY INSPECTOR) Sodium 135 135 - 145 mmol/L [facility] Potassium, pl 4.4 3.3 - 4.9 mmol/L [facility] Chloride 103 97 - 110 mmol/L [facility] CO2 24 22 - 32 mmol/L [facility] Anion gap 8 2 - 15 mmol/L [facility] BUN 5(L) 8 - 25 mg/dL [facility] Creatinine 0.60 0.60 - 1.10 mg/dL [facility] Glucose 110 70 - 199 mg/dL [facility] Comment: Interpretive Data Fasting glucose >/= [...] 2017. Calcium 8.5 8.5 - 10.3 mg/dL [facility] Blood specimen (specimen) 07/16/2020 11:00 PM X RAY INSPECTOR 07/17/2020 5:37 AM X RAY INSPECTOR Pee Mukherjee III, MD LAB BLOOD ORDER NICOLE Final Result [facility] [address] [facility]. Department [place] [address] * (ABNORMAL) CBC without differential (07/16/2020 11:00 PM X RAY INSPECTOR) WBC 12.1(H) 3.8 - 9.9 K/cumm [facility] Hgb 13.3 11.9 - 15.5 g/dL [facility] Hct 40.9 35.6 - 45.5 % [facility] Plt 311 150 - 400 K/cumm [facility] MPV 10.4 9.1 - 12.3 fL [facility] RBC 4.51 3.90 - 5.20 M/cumm [facility] MCV 90.7 81.3 - 96.4 fL [facility] MCH 29.5 27.1 - 33.3 pg [facility] MCHC 32.5 32.3 - 35.7 g/dL [facility] RDW CV 13.2 11.1 - 14.9 % [facility] RDW SD 44.2 35.7 - 48.1 fL [facility] NRBC abs 0.00 0.00 - 0.01 K/cumm [facility] Blood specimen (specimen) 07/16/2020 11:00 PM X RAY INSPECTOR 07/17/2020 5:37 AM X RAY INSPECTOR Pee Mukherjee III, MD LAB BLOOD ORDER NICOLE Final Result [facility] [address] [facility]. Department [place] [address] * Surgical pathology (07/16/2020 9:46 AM X RAY INSPECTOR) Tissue (Gastrectomy, sleeve) 07/16/2020 9:46 AM X RAY INSPECTOR Narrative [facility] PATHOLOGY LAB - 07/21/2020 2:33 PM X RAY INSPECTOR EPIC results best viewed via link to PDF [facility] [place] [address] SURGICAL PATHOLOGY REPORT FINAL Patient Name: ?? ROWENA QUESADA Gender: ??F : ??1965 (Age: 55) Address: ??[address] [place] [address] [place], [place] ??[address] Hospital #: ??[id number] Taken:07/16/2020 Received:07/16/2020 Reported: 07/21/2020 Patient Type: WC Inpatient Client ?[facility] Service: Surgery Location: [facility] ADMT Physician(s): ??Thierno Blanc M.D. Dr Baldomero [...] interpretation for this case was performed at [facility], Department of Surgical Pathology, [address] [facility] [address], [id number], ??[place], [place] ??[address] ?? CLIA # [id number] History: The patient is a 55-year-old woman [...] determined by the Surgical Pathology Department at [facility] as part of an ongoing it quality analyst program and in compliance with [...] determined by the Surgical Pathology Department of [facility]. ??It has not been cleared or approved by the U. S. Food and Drug Administration. IMAGES AND SCANNED DOCUMENTS, IF INCLUDED, ONLY VIEWABLE IN PDF VERSION OF REPORT Result Rajendra Blanc MD LAB PATHOLOGY ORDERABLES Final Result [facility] [address] [facility] [address] [place] [address] * POCT hCG, urine (07/16/2020 9:37 AM X RAY INSPECTOR) HCG, ur, POC Negative Lot Number [id number] QC Backgroud Clear Acceptable QC Control Line Acceptable Urine 07/16/2020 9:37 AM X RAY INSPECTOR Result Rajendra Blanc MD POINT OF CARE TEST ORDERABLES F inal Result * POCT cotinine (07/16/2020 9:36 AM X RAY INSPECTOR) Cotinine, POC Negative Lot Number [id number] QC Negative Control Acceptable QC Positive Control Acceptable Urine 07/16/2020 9:36 AM X RAY INSPECTOR Result Rajendra Blanc MD POINT OF CARE [...] 1 dose, Pre-Op Given 07/16/2020 9:13 AM X RAY INSPECTOR 1,000 mg acetaminophen (TYLENOL) tablet 1,000 mg 1,000 mg, oral, Every 8 hours scheduled, First dose on Wed07/16/20 at 1400, For 5 days, Indications: PainIndications:Pain Given 07/17/2020 2:06 PM X RAY INSPECTOR 1,000 mg Given 07/17/2020 7:07 AM X RAY INSPECTOR 1,000 mg Given 07/16/2020 9:01 PM X RAY INSPECTOR 1,000 mg ceFAZolin (ANCEF) 2,000 mg/20 mL in sterile water (premix) 2,000 mg 2,000 mg, intravenous, at 400 mL/hr, Administer over 3 Minutes, Once, On Wed07/16/20 at 1800, For 1 dose, Start 8 hours after last pre -op dose, Indications: Prophylaxis, SurgicalIndications:Prophylaxis, Surgical New Bag 07/16/2020 5:14 PM X RAY INSPECTOR 2,000 mg 400 mL/hr celecoxib (CeleBREX) capsule 200 mg 200 mg, oral, 2 times daily, First dose on Wed07/16/20 at 2100, Indications: PainIndications:Pain Given 07/17/2020 9:42 AM X RAY INSPECTOR 200 mg Given 07/16/2020 9:02 PM X RAY INSPECTOR 200 mg celecoxib (CeleBREX) capsule 400 mg 400 mg, oral, Once, On Wed07/16/20 at 0945, For 1 dose, Pre-Op Given 07/16/2020 9:13 AM X RAY INSPECTOR 400 mg cyclobenzaprine (FLEXERIL) tablet 10 mg 10 mg, oral, Every 8 hours scheduled, First dose on Wed07/16/20 at 2200, For 5 days Given 07/17/2020 2:06 PM X RAY INSPECTOR 10 mg Given 07/17/2020 7:07 AM X RAY INSPECTOR 10 mg Given 07/16/2020 9:02 PM X RAY INSPECTOR 10 mg dextrose 5% and sodium chloride 0.9% with potassium chloride 20 mEq/L infusion (premix) 125 mL/hr, intravenous, Continuous, Starting on Wed07/16/20 at 1330, For 24 hours New 07/16/2020 11:03 PM X RAY INSPECTOR 125 mL/hr 125 mL/hr 07/16/2020 2:05 PM X RAY INSPECTOR 125 mL/hr 125 mL/hr dilTIAZem CD/XR/XT (CARDIZEM CD,DILACOR XR) 24 hour capsule 120 mg 120 mg, oral, Nightly, First dose on Wed07/16/20 at 2100, Do not crush, chew, cut, dissolve, open or otherwise manipulate tablet/capsule., Indications: hypertension, can take up to two times per day, SVTIndications:hypertension,c an take up to two times per day, SVT Given 07/16/2020 9:03 PM X RAY INSPECTOR 120 mg enoxaparin (LOVENOX) syringe 40 mg 40 mg, subcutaneous, Every 12 hours scheduled, First dose on Wed07/16/20 at 2100, Indications: Deep Vein Thrombosis PreventionIndications:Deep Vein Thrombosis Prevention Given 07/17/2020 9:41 AM X RAY INSPECTOR 40 mg Left Lower Abdomen Given 07/16/2020 9:03 PM X RAY INSPECTOR 40 mg Le ft Lower Abdomen famotidine (PEPCID) tablet 20 mg 20 mg, oral, 2 times daily, First dose on Wed07/16/20 at 2100, Indications: non-bleeding gastric disorderIndications:non-bleeding gastric disorder Given 07/17/2020 9:42 AM X RAY INSPECTOR 20 mg Given 07/16/2020 9:04 PM X RAY INSPECTOR 20 mg gabapentin (NEURONTIN) capsule 600 mg 600 mg, oral, Once, On Wed07/16/20 at 0945, For 1 dose, Pre-Op Given 07/16/2020 9:13 AM X RAY INSPECTOR 600 mg heparin 10,000 unit/mL injection 7,500 Units 7,500 Units, subcutaneous, Once, On Wed07/16/20 at 0945, For 1 dose, Pre-Op, If not a revision., Indications: Deep Vein Thrombosis PreventionIndications:Deep Vein Thrombosis Prevention Given 07/16/2020 9:13 AM X RAY INSPECTOR 7,500 Units Right Lower Abdomen HYDROmorphone (DILAUDID) injection 0.2 mg 0.2 mg, intravenous, Administer over 2 Minutes, Every 5 min PRN, 2nd line for pain, Use as 1st line pain med for patients at [facility]. Use as 2nd line at after consulting with anesthesiologist., Starting on Wed07/16/20 at 1129, Phase I, Notify Anesthesiologist if total PACU dose reaches 2 mg for inpatients and 1 mg total for outpatients, and pain score 5/10 or more., Indications: PainIndications:Pain Given 07/16/2020 12:07 PM X RAY INSPECTOR 0.2 mg Given 07/16/2020 11:55 AM X RAY INSPECTOR 0.2 mg Given 07/16/2020 11:50 AM X RAY INSPECTOR 0.2 mg hyoscyamine (LEVSIN) sublingual tablet 125 mcg 125 mcg, oral, Every 6 hours scheduled, First dose on Wed07/16/20 at 1330, For 5 days, Indications: Urinary IncontinenceIndications:Urinary Incontinence Given 07/17/2020 12:49 PM X RAY INSPECTOR 125 mcg Given 07/17/2020 7:07 AM X RAY INSPECTOR 125 mcg Given 07/17/2020 12:50 AM X RAY INSPECTOR 125 mcg Lactated Ringer's (LR) infusion 30 mL/hr, intravenous, Continuous, Starting on Wed07/16/20 at 0945, Pre-Op, Use a 500 ml bag for End Stage Renal Disease Patients New Bag 07/16/2020 9:13 AM X RAY INSPECTOR 30 mL/hr 30 mL/hr metoprolol (LOPRESSOR) injection [...] Wed07/16/20 at 1250 Given 07/16/2020 6:34 PM X RAY INSPECTOR 4 mg ondansetron ODT (ZOFRAN-ODT) disintegrating tablet 4 mg 4 mg, oral, Every 4 hours PRN, nausea, vomiting, Starting on Wed07/17/20 at 0625 Given 07/17/2020 7:08 AM X RAY INSPECTOR 4 mg oxyCODONE (ROXICODONE) tablet 5 mg 5 mg, oral, Every 6 hours PRN, 1st line for pain, Starting on Wed07/16/20 at 1250, Indications: PainIndications:Pain Given 07/17/2020 12:51 PM X RAY INSPECTOR 5 mg Given 07/16/2020 11:03 PM X RAY INSPECTOR 5 mg Given 07/16/2020 4:52 PM X RAY INSPECTOR [address] (PROTONIX) extended release tablet 40 mg 40 mg, oral, Nightly, First dose (after last reorder) on Wed07/16/20 at 2100, Do not crush, chew, cut, dissolve, open or otherwise manipulate tablet/capsule., Indications: gerdIndications:gerd Given 07/16/2020 9:05 PM X RAY INSPECTOR 40 mg prochlorperazine (COMPAZINE) injection 5 mg 5 mg, intravenous, Every 10 min PRN, nausea, vomiting, Check with Anesthesiologist before administring, and ask about IV versus IM., Starting on Wed07/16/20 at 1129, For 2 doses, Phase I, If nausea/vomiting not relieved by ondansetron within 30 minutes or if ondansetron has been given within the last 6 hours. Given 07/16/2020 12:01 PM X RAY INSPECTOR 5 mg scopolamine patch 72 hour 1 [...] and Vomiting Medication Applied 07/16/2020 9:14 AM X RAY INSPECTOR 1 patch Behind Right Ear documented in [...] Recently Administered Medications Times are shown in X RAY INSPECTOR. Scheduled Medication Order 07/15/2020 07/16/2020 07/17/2020 acetaminophen [...] (Given - Provider: Caryn Saeed, JENNIFER) multivit chtuidhk-cgku-WX-calcium (THERA-M) tablet 1 tablet 1 tablet, oral, [...] 1 puff, inhalation, Every 6 hours PRN (sexual assault response coordinator), wheezing, Starting on Wed07/16/20 at 1255, Indications: allergies bupivacaine (MARCAINE) 0.25 % (2.5 mg/mL) preservative free injection (CANCELED) As needed, Starting on Wed07/16/20 at 1028, Intra-Op 1028 (Given - Provider: Thierno Blanc MD) HYDROmorphone (DILAUDID) injection 0.2 mg (CANCELED) 0.2 mg, intravenous, Administer over 2 Minutes, Every 5 min PRN, 2nd line for pain, Use as 1st line pain med for patients at [facility]. Use as 2nd line at [facility] [...] metoprolol (LOPRESSOR) injection 5 mg 1 multivit trviqedf-qhll-AY-ca lcium (THERA-M) tablet 1 tablet 1 07/16/2020 [...] 20 documented in this encounter Care Teams Geochemistry Teacher Relationship Specialty Start Date End Date Baldomero Dominguez MD PCP - General 01/07/17 Jaciel Melo MD Syrup Maker Cardiovascular Disease 04/12/19 2 documented as of this encounter
--- OUTSIDE RECORDS SUMMARY | 2024-07-11 12:28 | XMS_ITS | Encounter Summary ---
Author Organization [facility] Healthcare Address [address] [place] [address] Care Team Providers Care Director Emergency Name Role Phone Baldomero Dominguez MD Primary Care Provider Jaciel Melo MD Unavailable [phone] Encounter Details Date Type Department Care Team (Late st Contact Info) Description 07/16/2020 9:55 AM POST ACUTE CARE NURSE PRACTITIONER Anesthesia Event [facility] Operating Room [address] [place] [address] Rob Saunders MD [address] [place] [address] Lorenzo Rahman NP [address] [facility] [address] [phone] [place] [address] Anesthesia Record Procedure Summary Procedure Name Responsible [...] on file Legal Sex Female 1:19 PM POST ACUTE CARE NURSE PRACTITIONER Gender Identity Not on file Sexual Orientation Not on file documented as of this encounter OR Notes * Anesthesia Postprocedure Evaluation - Rob Saunders MD - 07/16/2020 1:35 PM CST Patient: Rowena Quesada Procedure Summary Date: 07/16/20 Room / Location: [facility] OPERATING ROOM 03 [facility] OPERATING ROOM Anesthesia Start: 954 Anesthesia Stop: [...] euvolemic Pt is: normothermic Nausea/Vomiting status: none ACUTE CARE NURSE PRACTITIONER * Anesthesia Procedure Notes - Natalia Cheek CRNA - 07/16/2020 10:25 AM CSTAssociated Order(s): Airway Airway Patient location: OR Urgency: elective Indications for airway management: anesthesia Difficult airway: no Staff: Placed by: STEWARDESSES TEACHER: Natalia Cheek CRNA Airway prep: Preoxygenated: yes [...] with: silk tape Number of attempts: 1 ACUTE CARE NURSE PRACTITIONER * Anesthesia Preprocedure Evaluation - Rob Saunders MD - 07/09/2020 11:37 AM CST Images from the original note were not included. [facility] Planning Preoperative Evaluation Record Evaluation type/location: [facility] Planned procedure site: [facility] OR Date: 07/09/20 Anesthesia Evaluation Rowena [...] arrhythmia (taking Diltiazem) - PSVT. Pertinent negatives: IN ; CABG ; systolic/diastolic dysfunction w/o CHF [...] COVID19 testing to be performed on 07/13/2020. [facility] will contact patient to schedule [...] stress test available, only requested by primary teaching assistant for chart completion Awaiting urine nicotine metabolites. [...] Medication protocol when under care of a STEWARDESSES TEACHER Planned anesthesia: General Informed Consent: Anesthesia plan and risks discussed with patient. Consent and Attending signature: I and/or my designee have discussed the anesthesia plan, benefits, possible alternatives, parental presence at time of induction (if indicated), and clinically relevant risks that may include dental injury, unintentional awareness, and/or other complications. The patient and/or parent/legal guardian understand, and agree to proceed. All questions answered. ACUTE CARE NURSE PRACTITIONER ACUTE CARE NURSE PRACTITIONER ACUTE CARE NURSE PRACTITIONER ACUTE CARE NURSE PRACTITIONER ACUTE CARE NURSE PRACTITIONER ACUTE CARE NURSE PRACTITIONER ACUTE CARE NURSE PRACTITIONER documented in this encounter Plan of Treatment Not on file documented as of this encounter Procedures Procedure Name Priority Date/Time Associated Diagnosis Comments NV AN PROCEDURE PLACEHOLDER Routine 07/16/2020 10:25 AM POST ACUTE CARE NURSE PRACTITIONER NV AN ELECTIVE ENDOTRACHEAL AIRWAY Routine 07/16/2020 10:25 AM POST ACUTE CARE NURSE PRACTITIONER documented in this encounter Results * NV AN ELECTIVE ENDOTRACHEAL AIRWAY, NV AN PROCEDURE PLACEHOLDER (07/16/2020 10:25 AM POST ACUTE CARE NURSE PRACTITIONER) Narrative Natalia Cheek CRNA - 07/16/2020 10:25 AM POST ACUTE CARE NURSE PRACTITIONER Natalia Cheek CRNA ? 07/16/2020 10:26 AM Airway Patient location: OR Urgency: elective Indications for airway management: anesthesia Difficult airway: no Staff: Placed by: STEWARDESSES TEACHER: Natalia Cheek CRNA Airway prep: Preoxygenated: yes [...] SurgicalIndications:Proph ylaxis, Surgical Given 07/16/2020 9:55 AM POST ACUTE CARE NURSE PRACTITIONER 3,000 mg dexMEDEtomidine in 0.9% sodium chloride (PRECEDEX) 400 mcg/100 mL (4 mcg/mL) infusion (premix) intravenous, Continuous PRN, Starting on Wed07/16/20 at 1006, Anesthesia Intra-op New Bag 07/16/2020 10:06 AM POST ACUTE CARE NURSE PRACTITIONER 0.5 mcg/kg/hr 7.41 mL/hr glycopyrrolate (ROBINUL) injection intravenous, Administer over 1 Minutes, As needed, Starting on Wed07/16/20 at 1116, Anesthesia Intra-op Given 07/16/2020 11:16 AM POST ACUTE CARE NURSE PRACTITIONER 0.4 mg ketamine (KETALAR) 100 mg in 90 mL sodium chloride 0.9% infusion intravenous, Continuous PRN, Starting on Wed07/16/20 at 1006, Anesthesia Intra-op New Bag 07/16/2020 10:06 AM POST ACUTE CARE NURSE PRACTITIONER 0.2 mg/kg/hr 11.86 mL/hr ketamine (KETALAR) injection intravenous, As needed, Starting on Wed07/16/20 at 1006, Anesthesia Intra-op Given 07/16/2020 10:06 AM POST ACUTE CARE NURSE PRACTITIONER 30 mg lidocaine PF (XYLOCAINE) 10 mg/mL (1 %) preservative free injection As needed, Starting on 07/16/20 at 1006, Anesthesia Intra-op Given 07/16/2020 10:06 AM POST ACUTE CARE NURSE PRACTITIONER 100 mg magnesium sulfate 2 g/50 mL in water (premix) intravenous, Administer over 60 Minutes, As needed, Starting on 07/16/20 at 1006, Anesthesia Intra-op Given 07/16/2020 10:06 AM POST ACUTE CARE NURSE PRACTITIONER 2 g midazolam (VERSED) 1 mg/mL injection intravenous, As needed, Starting on Wed07/16/20 at 0955, Anesthesia Intra-op Given 07/16/2020 9:55 AM POST ACUTE CARE NURSE PRACTITIONER 2 mg neostigmine injection intravenous, Administer over 3 Minutes, As needed, Starting on 07/16/20 at 1116, Anesthesia Intra-op Given 07/16/2020 11:16 AM POST ACUTE CARE NURSE PRACTITIONER 2 mg ondansetron (ZOFRAN) injection intravenous, Administer over 2 Minutes, As needed, Starting on 07/16/20 at 1116, Anesthesia Intra-op Given 07/16/2020 11:16 AM POST ACUTE CARE NURSE PRACTITIONER 4 mg propofoL (DIPRIVAN) IV intravenous, As needed, Starting on 07/16/20 at 1006, Anesthesia Intra-op Given 07/16/2020 10:06 AM POST ACUTE CARE NURSE PRACTITIONER 200 mg rocuronium (ZEMURON) injection intravenous, As needed, Starting on 07/16/20 at 1006, Anesthesia Intra-op Given 07/16/2020 10:06 AM POST ACUTE CARE NURSE PRACTITIONER 50 mg sodium chloride 0.9% infusion Continuous PRN, Starting on 07/16/20 at 1006, Anesthesia Intra-op New Bag 07/16/2020 10:06 AM POST ACUTE CARE NURSE PRACTITIONER documented in this encounter Care Teams Director Emergency Relationship Specialty Start Date End Date Baldomero Dominguez MD PCP - General 01/07/17 Jaciel Melo MD Winder Hand Cardiovascular Disease 04/12/19 2 documented as of this encounter
--- OUTSIDE RECORDS SUMMARY | 2024-07-11 12:28 | XMS_ITS | Encounter Summary ---
Author Organization [facility] Address [address] [facility] [address] [place] [address] Phone Care Team Providers Care Medical Device Sales Consultant Name Role Phone Baldomero Dominguez MD Primary Care Provider [phone] Jaciel Melo MD Unavailable [phone] Encounter Details Date Type Department Care Team (Late st Contact Info) Description 08/27/2020 11:20 AM MEDICAL OFFICE PROFESSIONAL INSTRUCTOR Telemedicine [facility] [address] [place] [address] Medical Office Building [address] [place] [address] Berry Atkins, WORKERS COMPENSATION CLAIMS ADJUSTER [address] [facility] [phone] [place] [address] Bariatric surgery status (Primary Dx); Intestinal malabsorption, [...] file Legal Sex Female 1:19 PM MEDICAL OFFICE PROFESSIONAL INSTRUCTOR Gender Identity Not on file Sexual Orientation Not on file documented as of this encounter Progress Notes * Berry Atkins NP - 08/27/2020 11:20 AM CST [facility] Post-Operative Clinic Note This was a telemedicine visit with Rowena Quesada alone which took place via Real-time video connection (Futurestate[employer], Zoom or similar). During the visit, I was located at home and the patient was located at home in the state of [place]. The patient visit started at 1134 and ended at 1200. My total encounter time on 08/27/2020 was 26 minutes which was spent in the activities documented in the note. This includes time spent prior to the visit and after the visit in direct care of the patient. This time does not include time spent in any separately reportable services.. The patient: has been informed that the visit may not be secure and acknowledged the information. The option of participating in a telephone or video visit during the [facility] [place] [address] emergencywas explained to them. After being given an opportunity to ask questions about and discuss this type of visit, they verbally consented to proceeding with the telephone/video visit and understand thatthis service replaces an office visit. Berry Atkins NP CHIEF COMPLAINT: Rowena Quesada presents for a post-operative clinic visit following recent surgery. Pt is 6 weeks post surgery and has lost 27 lbs. INTERVAL HISTORY: The patient is a 55 y.o. female who has been doing well in her postoperative course after Laparoscopic Sleeve Gastrectomy. She is tolerating the weight loss surgery diet without difficulty. Protein and fluid intake are not adequate. She is taking her medications as instructed including MVI, B12, Ca, ursodiol and pantoprazole . She is having issues with food choices and getting in her protein. I asked the pt to eat 5 small meals per day, get in 60- 80 grams of protein and only get carbs through fruits and vegetables. We discussed food choices. I am going to refer her to the hearing care professional for consultation. The patient has the following conditions: TRACE: no GERD: no Hypertension: yes, and is on 1 medications for this Hyperlipidemia: no Diabetes: no Wt Readings from Last 7 Encounters: 07/16/20 126.1 kg (278 lb) 07/09/20 129.3 kg (285 lb) 07/09/20 128.5 kg (283 lb 3.2 oz) 04/17/20 130.2 kg (287 lb) 03/12/20 131.2 kg (289 lb 3.2 oz) 03/06/20 128.8 kg (284 lb) 03/01/20 128.8 kg (284 lb) PHYSICAL EXAMINATION: Pt reports her weight at 251 pounds General: Well nourished, well-groomed, in no acute distress. Neuro: Alert and oriented x 3. Mood and affect are approciate. Abdomen: Soft, nontender, nondistended with well healing incisions without evidence of any erythemaor drainage. Extremities: No edema or cyanosis. ASSESSMENT AND PLAN: Patient Active Problem List Diagnosis ??? Arthralgia of hip ??? Morbid obesity (CMS/HCC) ??? Crohn's disease (CMS/HCC) ??? Paroxysmal supraventricular tachycardia (CMS/HCC) ??? Morbid obesity due to excess calories (CMS/HCC) The patient is a 55 y.o. female who presents to clinic today status-post Laparoscopic Sleeve Gastrectomy . We will plan to see the patient back in 6 weeks for her next postoperative visit. The patient is encouraged to call the clinic with any questions or concerns in the meantime. The patient demonstrates understanding and is amenable to the above outlined plan. There are no barriers to education today. Berry Atkins NP Nurse Practitioner Minimally Invasive Surgery Department of Surgery p: [phone] CAL OFFICE PROFESSIONAL INSTRUCTOR documented in this encounter Plan of Treatment Not on file documented as of this encounter Visit Diagnoses Diagnosis Bariatric surgery status- Primary Intestinal malabsorption, unspecified type Morbid obesity (HCC) Morbid obesity documented in this encounter Historical Medications * This list may reflect changes made after this encounter. pantoprazole DR (PROTONIX) 20 mg EC tablet pantoprazole 20 mg tablet,delayed release TK 1 T PO QD 11/26/19 hyoscyamine (LEVSIN) 0.125 mg SL tablet hyoscyamine 0.125 mg sublingual tablet 11/26/19 fluconazole (DIFLUCAN) 150 mg tablet fluconazole 150 mg tablet 11/26/19 22 influenza quadrivalent (FLULAVAL,FLUARIX ,FLUZONE) 60 mcg (15 mcg x 4)/0.5 mL syringe Fluarix Quad (PF) 60 mcg (15 mcg x 4)/0.5 mL IM syringe ADM 0.5ML IM UTD 11/26/19 cyclobenzaprine (FLEXERIL) 10 mg tablet cyclobenzaprine 10 mg tablet 11/26/19 22 added in this encounter Care Teams Medical Device Sales Consultant Relationship Specialty Start Date End Date Baldomero Dominguez MD PCP - General 01/07/17 Jaciel Melo MD Security Sales Manager Cardiovascular Disease 04/12/19 2 documented as of this encounter
--- OUTSIDE RECORDS SUMMARY | 2024-07-11 12:29 | XMS_ITS | Encounter Summary ---
Author Organization [facility] Address [address] [facility] [address] [place] [address] Phone Care Team Providers Care Member Of Parliament Name Role Phone Baldomero Dominguez MD Primary Care Provider [phone] Jaciel Melo MD Unavailable [phone] Encounter Details Date Type Department Care Team (Late st Contact Info) Description 06/07/2020 Orders Only [facility] Surgery [address] Medical Office Building [address] [place] [address] Thierno Blanc MD [address] [place] [phone] [place] [address] Social History Tobacco Use Types Packs/Day Years Used Date Smoking Tobacco: Never Comments No Sex and Gender Information Value Date Recorded Sex Assigned at Not on file Legal Sex Female 1:19 PM KEY CARRIER Gender Identity Not on file Sexual Orientation Not on file documented as of this encounter Plan of Treatment Not on file documented as of this encounter Visit Diagnoses Not on filedocumented in this encounter Care Teams Member Of Parliament Relationship Specialty Start Date End Date Baldomero Dominguez MD PCP - General 01/07/17 Jaciel Melo MD Rebar Worker Cardiovascular Disease 04/12/19 2 documented as of this encounter
--- OUTSIDE RECORDS SUMMARY | 2024-07-11 12:29 | XMS_ITS | Encounter Summary ---
Author Organization [facility] Address [address] [place] [address] Phone Care Team Providers Care Medical Appointment Scheduler Name Role Phone Baldomero Dominguez MD Primary Care Provider [phone] Jaciel Melo MD Unavailable [phone] Encounter Details Date Type Department Care Team (Late st Contact Info) Description 06/05/2020 Telephone [facility] Neema Bonilla Social History Tobacco Use Types Packs/Day Years Used Date Smoking Tobacco: Never Comments No Sex and Gender Information Value Date Recorded Sex Assigned at Not on file Legal Sex Female 1:19 PM COMMERCIAL SEWING INSTRUCTOR Gender Identity Not on file Sexual Orientation Not on file documented as of this encounter Miscellaneous Notes * Telephone Encounter - Neema Bonilla - 06/05/2020 9:07 AM CST 06.05.2020 Note sent to the division. Good afternoon Neema, I???ve received and reviewed Gregory Quesada #[id number]. The following information is still needed: Hepatitis screening Abdominal ultrasound Sleep study (her Stop-Bang screening was a 3 per Berry Atkins NP report) Thanks, Paulina Guerrero Medical Assistance Bootmaker Hand III [facility] Division of Medical Programs [place] of Professional & Ancillary Services [phone] [email or web address] ----- Message from Neema Bonilla sent at 05/31/2020 11:14 AM COMMERCIAL SEWING INSTRUCTOR ----- Regarding: FW: Pre- D Benefits need verified Bariatric Primary Insurance Insurance [employer] & Phone: Jd seay/CORNEL Zenia @ [phone] case #[id number] is pending medical review Predetermination Date Sent: 05.31.2020 Comments: Faxed clinicals for CPT 73993 BW DOS 2020 to [phone] Secondary Insurance Insurance [employer] & Phone: IDPA @ [phone] Predetermination Date Sent: 05.31.2020 Comments: Faxed clinicals for CPT 45632 BW DOS 2020 to [phone] ----- Message ----- From: Darleen Foster Sent: 05/30/2020 11:29 AM COMMERCIAL SEWING INSTRUCTOR To: Arjun Coffman Pre-Determination Pool Subject: Pre- D Benefits need verified Bariatric Requesting Pre-Determination Benefits Ordering Physician: Guanaco Procedure Description: Sleeve CPT Code: 23772 Diagnosis Code: Morbid Obesity--DX E66.01 Place of Service: Admit Status: SDSA Tentative Date of Service: 2020 Other: The above location and date could possibly change. ERCIAL SEWING INSTRUCTOR ERCIAL SEWING INSTRUCTOR ERCIAL SEWING INSTRUCTOR documented in this encounter Plan of Treatment Not on file documented as of this encounter Visit Diagnoses Not on filedocumented in this encounter Care Teams Medical Appointment Scheduler Relationship Specialty Start Date End Date Baldomero Dominguez MD PCP - General 01/07/17 Jaciel Melo MD Hydroelectric Mechanic Cardiovascular Disease 04/12/19 2 documented as of this encounter
--- OUTSIDE RECORDS SUMMARY | 2024-07-11 12:29 | XMS_ITS | Encounter Summary ---
Author Organization [facility] Healthcare Address [address] [place] [address] Care Team Providers Care Production Supervisor Trainee Name Role Phone Baldomero Dominguez MD Primary Care Provider [phone] Jaciel Melo MD Unavailable [phone] Encounter Details Date Type Department Care Team (Late st Contact Info) Description 07/09/2020 12:40 PM KETTLE LOADER Lab [facility] [address] [place] [address] Preoperative testing; Pre-op evaluation Social History Tobacco Use Types Packs/Day Years Used Date Smoking Tobacco: Never Smokeless Tobacco: Never Alcohol Use Standard Drinks/Week Comments Yes 0 (1 standard drink = 0.6 oz pur e alcohol) occasional wine Comments No Sex and Gender Information Value Date Recorded Sex Assigned at Not on file Legal Sex Female 1:19 PM KETTLE LOADER Gender Identity Not on file Sexual Orientation Not on file documented as of this encounter Plan of Treatment Not on file documented as of this encounter Procedures Procedure Name Priority Date/Time Associated Diagnosis Comments EGFR Routine 07/09/2020 12:40 PM KETTLE LOADER Preoperative testing NICOTINE METABOLITE SCREEN, URINE Routine 07/09/2020 12:40 PM KETTLE LOADER Pre-op evaluation CBC WITHOUT DIFFERENTIAL Routine 07/09/2020 12:40 PM KETTLE LOADER Preoperative testing BASIC METABOLIC PANEL Routine 07/09/2020 12:40 PM KETTLE LOADER Preoperative testing documented in this encounter Results * eGFR (07/09/2020 12:40 PM KETTLE LOADER) eGFR >90 mL/min/1.7 3 m2 ALICIA SHARMA Comment: Interpretive Data Reference Interval Normal ?>/= 90 mL/min/1.73m2 Mildly decreased* ? 60 - 89 mL/min/1.73m2 Mildly to moderately decreased ?45 - 59 mL/min/1.73m2 Moderately to severely decreased ??30 - 44 mL/min/1.73m2 Severely decreased ?15 - 29 mL/min/1.73m2 Kidney Failure ?< 15 ??mL/min/1.73m2 *Relative to young adult level If -Guyanese multiply value by 1.16. Estimated glomerular filtration [...] 2016. Blood specimen (specimen) 07/09/2020 12:40 PM KETTLE LOADER 07/09/2020 1:18 PM KETTLE LOADER us Lorenzo Rahman NP LAB BLOOD ORDERABLE S Final Result ALICIA STANTONCH [address] [facility]. [place] [address] * Nicotine metabolite screen, urine (07/09/2020 12:40 PM KETTLE LOADER) Pathologist [facility] Nicotine, ur <5.0 <5.0 ng/mL [facility] Cotinine, ur <5.0 <5.0 ng/mL [facility] Anabasine ur <2.0 <2.0 ng/mL [facility] Comment: ADDITIONAL INFORMATION This test was developed and its performance characteristics determined by [facility] in a manner consistent with CLIA requirements. This test has not been cleared or approved by the U.S. Food and Drug Administration. Test Performed by: [facility] [place] [address] French Polisher: Pee Maria M.D. Ph.D.; CLIA# [id number] Nornicotine, ur <2.0 <2.0 ng/mL [facility] Urine 07/09/2020 12:4 0 PM KETTLE LOADER 07/09/2020 2:57 PM KETTLE LOADER us Thierno Blanc MD LAB URINE ORDERABLES Final Resu lt [facility] [address] [facility]. [place] [address] * Basic metabolic panel (07/09/2020 12:40 PM KETTLE LOADER) Pathologist [facility] Sodium 137 135 - 145 mmol/L CERNER [...] 2017. Calcium 9.5 8.5 - 10.3 mg/dL [facility] Blood specimen (specimen) 07/09/2020 12:40 PM KETTLE LOADER 07/09/2020 1:18 PM KETTLE LOADER us Lorenzo Rahman NP LAB BLOOD ORDERABLE S Final Result [facility] [address] [facility]. [place] [address] * (ABNORMAL) CBC without differential (07/09/2020 12:40 PM KETTLE LOADER) WBC 10.0(H) 3.8 - 9.9 K/cumm [facility] Hgb 13.9 11.9 - 15.5 g/dL [facility] Hct 42.9 35.6 - 45.5 % [facility] Plt 328 150 - 400 K/cumm [facility] MPV 10.0 9.1 - 12.[address] [facility] RBC 4.78 3.90 - 5.20 M/cumm [facility] MCV 89.7 81.3 - 96.4 fL [facility] MCH 29.1 27.1 - 33.[address] [facility] MCHC 32.4 32.3 - 35.7 g/dL [facility] RDW CV 13.1 11.1 - 14.9 % [facility] RDW SD 42.9 35.7 - 48.[address] [facility] NRBC abs 0.00 0.00 - 0.01 K/cumm [facility] Blood specimen (specimen) 07/09/2020 12:40 PM KETTLE LOADER 07/09/2020 1:18 PM KETTLE LOADER us Lorenzo Rahman WOUND CARE PHYSICIAN LAB BLOOD ORDERABLE S Final Result ALICIA [facility] [address] [facility]. [place] [address] documented in this encounter Visit Diagnoses Diagnosis Preoperative testing Unspecified pre-operative examination Pre-op evaluation documented in this encounter Care Teams Production Supervisor Trainee Relationship Specialty Start Date End Date Baldomero Dominguez MD PCP - General 01/07/17 Jaciel Melo MD Rn Emergency Room Cardiovascular Disease 04/12/19 2 documented as of this encounter
--- OUTSIDE RECORDS SUMMARY | 2024-07-11 12:29 | XMS_ITS | Encounter Summary ---
Author Organization [facility] Address [address] [place] [address] Phone Care Team Providers Care Nuclear Technologist Name Role Phone Baldomero Dominguez MD Primary Care Provider [phone] Jaciel Melo MD Unavailable [phone] Reason for Visit * Consultation (Routine) - Closed Specialty Diagnoses / Procedures Referred By Vianca montiel Referred To Contact Neurology Diagnoses Sleep apnea, unspecified type Referral, Self [facility] Neuro Sleep [address] [facility] [facility] [facility] 6th [address] [place] [address] Phone: tel: fax: Referral ID Status Reason Start Date Expiration Date V isits Requested Visits Authorized [id number] Closed Specialty Services Required 07/01/2020 07/31/2021 1 1 Encounter Details Date Type Department Care Team (Latest Contact Info) Description 07/09/2020 7:30 PM LOCOMOTIVE ENGINEER Procedure visit [facility] Neuro Sleep [address] [facility] [facility] [facility] 6[address] [place] [address] Hypersomnia; TRAEC (obstructive sleep apnea) Social History Tobacco Use Types Packs/Day Years Used Date Smoking Tobacco: Never Smokeless Tobacco: Never Alcohol Use Standard Drinks/Week Comments Yes 0 (1 standard drink = 0.6 oz pur e alcohol) occasional wine Comments No Sex and Gender Information Value Date Recorded Sex Assigned at Not on file Legal Sex Female 1:19 PM LOCOMOTIVE ENGINEER Gender Identity Not on file Sexual Orientation Not on file documented as of this encounter Last Filed Vital Signs Vital Sign Reading Time Taken Comments Blood Pressure 146/89 07/09/2020 7:53 PM LOCOMOTIVE ENGINEER Pulse 94 07/09/2020 7:53 PM LOCOMOTIVE ENGINEER Temperature 36.7 ??C (98 ??F) 07/09/2020 7:53 PM LOCOMOTIVE ENGINEER Respiratory Rate - - Oxygen Saturation - - Inhaled Oxygen Concentration - - Weight 129.3 kg (285 lb) 07/09/2020 7:53 PM LOCOMOTIVE ENGINEER Height 167.6 cm (5' 6 ) 07/09/2020 7:53 PM LOCOMOTIVE ENGINEER Body Mass Index 46 07/09/2020 7:53 PM LOCOMOTIVE ENGINEER documented in this encounter Progress Notes * [...] with recommended parameters as outlined in the [place] [employer] Manual for the [...] less than 89%. The snoring microphone and screening technician observation revealed rare snores. EMG monitoring [...] in this written report. Odette Correa M.D. Mental Health Unit Lead Psychologist of Neurology Diplomate, [place] [employer] of Psychiat[employer] and Neurology With added qualifications in Sleep Medicine MOTIVE ENGINEER documented in this encounter Plan of Treatment Not on file documented as of this encounter Procedures Procedure Name Priority Date/Time Associated Diagnosis Comments PSG (COMPLEX) Routine 07/09/2020 7:30 PM LOCOMOTIVE ENGINEER Hypersomnia documented in this encounter Results * PSG (COMPLEX) (07/09/2020 7:30 PM LOCOMOTIVE ENGINEER) Narrative Odette Correa MD - 07/09/2020 7:30 PM LOCOMOTIVE ENGINEER Odette Correa MD ? 07/11/2020 ??9:54 AM PSG-Sleep Provider Use Only Date/Time: 07/09/2020 10:00 PM Performed by: Odette Correa MD Authorized by: Jamie Kevin NP Afoussatou Boire TENNIS BALL COVERER HAND SLEEP CENTER ORDERABLES Ingris l Result documented in this encounter Visit Diagnoses Diagnosis Hypersomnia Hypersomnia, unspecified TRACE (obstructive sleep apnea) Obstructive sleep apnea (adult) (pediatric) documented in this encounter Orders Outpatient Referral Count Last Ordered Date Fir st Ordered Date AMB REFERRAL TO NEUROLOGY 1 07/09/2020 documented in this encounter Care Teams Nuclear Technologist Relationship Specialty Start Date End Date Baldomero Dominguez MD PCP - General 01/07/17 Jaciel Melo MD Dry Chain Offbearer Cardiovascular Disease 04/12/19 2 documented as of this encounter
--- OUTSIDE RECORDS SUMMARY | 2024-07-11 12:29 | XMS_ITS | Encounter Summary ---
Author Organization [facility] Address [address] [place] [address] Phone Care Team Providers Care Unindentured Apprentice Name Role Phone Baldomero Dominguez MD Primary Care Provider [phone] Jaciel Melo MD Unavailable [phone] Encounter Details Date Type Department Care Team (Late st Contact Info) Description 07/01/[address] [facility] Neema Bonilla Social History Tobacco Use Types Packs/Day Years Used Date Smoking Tobacco: Never Comments No Sex and Gender Information Value Date Recorded Sex Assigned at Not on file Legal Sex Female 1:19 PM COMMERCIAL REAL ESTATE PARALEGAL Gender Identity Not on file Sexual Orientation Not on file documented as of this encounter Miscellaneous Notes * Telephone Encounter - Neema Bonilla - 07/01/2020 9:55 AM CST Say Bethea I approved lap sleeve gastrectomy for Rowena Quesada. Prior approval # [id number] for dates of service 07/02/20-12/30/20. Be safe & stay healthy! Carrie Roa Medical Assistance Asset Protection Agent III [facility] Division of Medical Programs [place] of Professional & Ancillary Services 07.01.2020 Emailed Carrie Roa @[facility], Sleep Study, Hep Lab results and Ab Ultrasound for review to get secondary approval ----- Message from Darleen Foster sent at 06/27/2020 7:56 AM COMMERCIAL REAL ESTATE PARALEGAL ----- There is an abdominal US under imaging. ----- Message ----- From: Neema Bonilla Sent: 06/27/2020 7:04 AM COMMERCIAL REAL ESTATE PARALEGAL To: Díaz Coffman Mis Bariatric Pool Leticia Pedro, That is fine if she is doing the sleep study today but I don't see Abdominal ultrasound that [facility] requested. I do see the lab work for the Hepatitis screen. This is the one that has the [facility] approval but [facility] is requesting additional things. Please advise. Thanks, Neema ----- Message ----- From: Darleen Foster Sent: 06/26/2020 4:04 PM COMMERCIAL REAL ESTATE PARALEGAL To: Díaz Coffman Pre-Determination Pool Leticia, Per Marika, We can submit this patient without her sleep study. She is getting her sleep study today. Thank you,Mayela ----- Message ----- From: Neema Bonilla Sent: 06/12/2020 ??10:26 AM COMMERCIAL REAL ESTATE PARALEGAL To: Díaz Coffman Mis Bariatric Pool Subject: FW: Please submit to Pre-D ? Leticia Let me know where we are going with this. She has a [employer] approval but per [facility]. She is missing things. 06.05.2020 Note sent to the division. ?? Good afternoon Neema, ?? I've received and reviewed Gregory Quesada #[id number]. The following information is still needed: ?? Hepatitis screening Abdominal ultrasound Sleep study (her Stop-Bang screening was a 3 per Berry Atkins NP report) ?? Thanks, ?? Paulina Guerrero Medical Assistance Asset Protection Agent III [facility] Division of Medical Programs [place] of Professional & Ancillary Services [phone] ?? ----- Message ----- From: Darleen Foster Sent: 06/12/2020 ??10:08 AM COMMERCIAL REAL ESTATE PARALEGAL To: Díaz Coffman Pre-Determination Pool Subject: FW: Please submit to Pre-D ? Requesting Pre-Determination Benefits Ordering Physician: Guanaco Procedure Description: Sleeve CPT Code: 71892 Diagnosis Code: Morbid Obesity--DX E66.01 Place of Service: BW Admit Status: SDSA Tentative Date of Service: 2020 Other: The above location and date could possibly change. Per below message we are submitting with the information that we have. ----- Message ----- From: Velvet gNuyen RN Sent: 06/12/2020 ??10:00 AM COMMERCIAL REAL ESTATE PARALEGAL To: Darleen Foster Subject: RE: Please submit [...] From: Darleen Foster Sent: 06/11/2020 ??12:12 PM COMMERCIAL REAL ESTATE PARALEGAL To: Velvet Nguyen RN Subject: RE: Please submit to Pre-D ? Tabitha, Part of the issue is, this patient's insurance requires the sleep study. I can not submit without this. Please advise. Thank you, Mayela ----- Message ----- From: Velvet Nguyen RN Sent: 06/11/2020 ?? 8:59 AM COMMERCIAL REAL ESTATE PARALEGAL To: Darleen Foster Subject: Please submit to Pre-D ? Hi there. Dr. Blanc has agreed to give this patient a tentative surgery date of 07/16. Please go ahead an submit for Pre-D to her IDPA today. In the meantime, she is scheduled for her sleep med consultation later this week and will have a sleep study shortly after that. Thanks, Velvet ?? ERCIAL REAL ESTATE PARALEGAL ERCIAL REAL ESTATE PARALEGAL ERCIAL REAL ESTATE PARALEGAL documented in this encounter Plan of Treatment Not on file documented as of this encounter Visit Diagnoses Not on filedocumented in this encounter Care Teams Unindentured Apprentice Relationship Specialty Start Date End Date Baldomero Dominguez MD PCP - General 01/07/17 Jaciel Melo MD Tool Keeper Cardiovascular Disease 04/12/19 2 documented as of this encounter
--- OUTSIDE RECORDS SUMMARY | 2024-07-11 12:29 | XMS_ITS | Encounter Summary ---
Author Organization [facility] Address [address] [place] [address] Phone Care Team Providers Care Social Work Program Coordinator Name Role Phone Baldomero Dominguez MD Primary Care Provider [phone] Jaciel Melo MD Unavailable [phone] Reason for Referral * Sleep Medicine (Routine) - Closed Specialty Diagnoses / Procedures Referred By Vianca montiel Referred To Contact Diagnoses Hypersomnia Procedures PSG-Sleep Provider Use Only Jamie Kevin NP [address] [place] [address] Phone: tel: fax: [facility] (All Locations) Referral ID Status Reason Start Date Expiration Date Visits Re quested Visits Authorized [id number] Closed 2020 08/02/2020 1 1 NGUAL SALES REPRESENTATIVE Encounter Details Date Type Department Care Team (Late st Contact Info) Description 07/01/2020 Orders Only [facility] Neuro Sleep [address] [facility] 6th [address] [place] [address] Jamie Kevin NP [address] [place] [address] Hypersomnia (Primary Dx) Social History Tobacco Use Types Packs/Day Years Used Date Smoking Tobacco: Never Comments No Sex and Gender Information Value Date Recorded Sex Assigned at Not on file Legal Sex Female 1:19 PM BILINGUAL SALES REPRESENTATIVE Gender Identity Not on file Sexual Orientation Not on file documented as of this encounter Plan of Treatment Not on file documented as of this encounter Results * PSG (COMPLEX) (07/09/2020 7:30 PM BILINGUAL SALES REPRESENTATIVE) Narrative Odette Correa MD - 07/09/2020 7:30 PM BILINGUAL SALES REPRESENTATIVE Odette Correa MD ? 07/11/2020 ??9:54 AM PSG-Sleep Provider Use Only Date/Time: 07/09/2020 10:00 PM Performed by: Odette Correa MD Authorized by: Jamie Kevin NP Jamie Kevin NP SLEEP CENTER ORDERABLES Ingris l Result documented in this encounter Visit Diagnoses Diagnosis Hypersomnia- Primary Hypersomnia, unspecified Hypersomnia Hypersomnia, unspecified TRACE (obstructive sleep apnea) Obstructive sleep apnea (adult) (pediatric) documented in this encounter Care Teams Social Work Program Coordinator Relationship Specialty Start Date End Date Baldomero Dominguez MD PCP - General 01/07/17 Jaciel Melo MD Insole Beveler Cardiovascular Disease 04/12/19 2 documented as of this encounter
--- OUTSIDE RECORDS SUMMARY | 2024-07-11 12:29 | XMS_ITS | Encounter Summary ---
Author Organization [facility] Address [address] [place] [address] Care Team Providers Care Marinator Name Role Phone Baldomero Dominguez MD Primary Care Provider [phone] Jaciel Melo MD Unavailable [phone] Encounter Details Date Type Department Care Team (Late st Contact Info) Description 06/07/2020 7:16 AM PANEL GLUER Hospital Encounter [facility] OP INTERIM Francesco Cruz MD [address] [place] [address] Social History Tobacco Use Types Packs/Day Years Used Date Smoking Tobacco: Never Comments No Sex and Gender Information Value Date Recorded Sex Assigned at Not on file Legal Sex Female 1:19 PM PANEL GLUER Gender Identity Not on file Sexual Orientation [...] NM GASTRIC EMPTYING STUDY 06/07/2020 12:00 AM PANEL GLUER documented in this encounter Results * NM Gastric Emptying Study (06/07/2020 12:00 AM PANEL GLUER) Anatomical Region Laterality Modality Body N/A Nuclear Medicine 06/07/2020 12:0 3 PM PANEL GLUER Narrative 06/07/2020 12:35 PM PANEL GLUER Patient Name: DERRICK QUESADA ?Ordering Dr: Francesco Cruz MD ?? D.O.B: 1965 ? Exam Date: 11/13/20 ?? 0000 ?? Age: 54 ?Sex: Female ? MR#: [id number] ?? Loc: ? RADIOLOGY REPORT ?? Order #[id number] ?? Nuclear Medicine ? Gastric Emptying Study [...] 12:35 PM ?? T: ? Report ID: [id number] ?? Reading Location: ??[id number] ? REPORT ELECTRONICALLY SIGNED IN OTHER VENDOR SYSTEM ?? Resulting Agency Comment O Procedure Note Bakari Sidhu MD - 06/07/2020 Patient Name: RODNEYDERRICK BLANCO Dr: Francesco Cruz MD D.O.B: 1965 Exam Date: 06/07/20 0000 Age: 54 Sex: Female MR#: [id number] Loc: RADIOLOGY REPORT Order #[id number] Nuclear Medicine Gastric Emptying Study Signed EXAM [...] Bakari Sidhu M.D. KW T: Report ID: [id number] Reading Location: [id number] REPORT ELECTRONICALLY SIGNED IN OTHER VENDOR SYSTEM Francesco Cruz MD [facility] Final Result documented in this encounter Visit Diagnoses Not on filedocumented in this encounter Care Teams Marinator Relationship Specialty Start Date End Date Baldomero Dominguez MD PCP - General 01/07/17 Jaciel Melo MD News Director Cardiovascular Disease 04/12/19 2 documented as of this encounter
--- OUTSIDE RECORDS SUMMARY | 2024-07-11 12:29 | XMS_ITS | Encounter Summary ---
Author Organization [facility] Address [address] [place] [address] Phone Care Team Providers Care Loader Demolder Name Role Phone Baldomero Dominguez MD Primary Care Provider [phone] Jaciel Melo MD Unavailable [phone] Encounter Details Date Type Department Care Team (Late st Contact Info) Description 06/10/[address] [facility] Surgery [address] [place] [address] Medical Office Building [address] [place] [address] Velvet Nguyen RN Social History Tobacco Use Types Packs/Day Years Used Date Smoking Tobacco: Never Comments No Sex and Gender Information Value Date Recorded Sex Assigned at Not on file Legal Sex Female 1:19 PM AUTOCAD DRAFTSMAN Gender Identity Not on file Sexual Orientation Not on file documented as of this encounter Miscellaneous Notes * Telephone Encounter - Velvet Nguyen RN - 06/10/2020 3:32 PM AUTOCAD DRAFTSMAN Attempted to call patient ([phone]) three times today. I was unsuccessful in reaching her eachtime. Voice message left each time. Velvet Nguyen RN CAD DRAFTSMAN documented in this encounter Plan of Treatment Not on file documented as of this encounter Visit Diagnoses Not on filedocumented in this encounter Care Teams Loader Demolder Relationship Specialty Start Date End Date Baldomero Dominguez MD PCP - General 01/07/17 Jaciel Melo MD Control Room Supervisor Cardiovascular Disease 04/12/19 2 documented as of this encounter
--- OUTSIDE RECORDS SUMMARY | 2024-07-11 12:29 | XMS_ITS | Encounter Summary ---
Author Organization [facility] Address [address] [place] [address] Phone Care Team Providers Care Presales Senior Specialist Name Role Phone Baldomero Dominguez MD Primary Care Provider [phone] Jaciel Melo MD Unavailable Encounter Details Date Type Department Care Team (Late st Contact Info) Description 06/26/2020 Telephone [facility] Neuro Sleep [address] [facility] 6th [address] [place] [address] Sen Ba RPSGT Social History Tobacco Use Types Packs/Day Years Used Date Smoking Tobacco: Never Comments No Sex and Gender Information Value Date Recorded Sex Assigned at Not on file Legal Sex Female 1:19 PM FACING CUTTING MACHINE OPERATOR Gender Identity Not on file Sexual Orientation Not on file documented as of this encounter Miscellaneous Notes * Telephone Encounter - Sen Ba RPSGT - 06/26/2020 9:42 AM FACING CUTTING MACHINE OPERATOR Attempted to reach patient to reschedule HSAT for this week. Insurance is approved. LVM. NG CUTTING MACHINE OPERATOR documented in this encounter Plan of Treatment Not on file documented as of this encounter Visit Diagnoses Not on filedocumented in this encounter Care Teams Presales Senior Specialist Relationship Specialty Start Date End Date Baldomero Dominguez MD PCP - General 01/07/17 Jaciel Melo MD Nurse Plastics Cardiovascular Disease 04/12/19 2 documented as of this encounter
--- OUTSIDE RECORDS SUMMARY | 2024-07-11 12:29 | XMS_ITS | Encounter Summary ---
Author Organization [facility] Address [address] [place] [address] Phone Care Team Providers Care Lift Electrician Name Role Phone Baldomero Dominguez MD Primary Care Provider Jaciel Melo MD Unavailable [phone] Encounter Details Date Type Department Care Team (Late st Contact Info) Description 06/25/2020 Telephone [facility] Neuro Sleep [address] [facility] 6th [address] [place] [address] Eduardo Dawson, SHAYLA Social History Tobacco Use Types Packs/Day Years Used Date Smoking Tobacco: Never Comments No Sex and Gender Information Value Date Recorded Sex Assigned at Not on file Legal Sex Female 1:19 PM JIG BORING MACHINE OPERATOR FOR METAL Gender Identity Not on file Sexual Orientation Not on file documented as of this encounter Miscellaneous Notes * Telephone Encounter - Eduardo Dawson RPSGT - 06/25/2020 5:55 PM JIG BORING MACHINE OPERATOR FOR METAL Pt LVM on machine asking for a cb. I called but got vm-lvm for cb if still needed. BORING MACHINE OPERATOR FOR METAL documented in this encounter Plan of Treatment Not on file documented as of this encounter Visit Diagnoses Not on filedocumented in this encounter Care Teams Lift Electrician Relationship Specialty Start Date End Date Baldomero Dominguez MD PCP - General 01/07/17 Jaciel Melo MD Bar Machine Operator Multiple Spindle Cardiovascular Disease 04/12/19 2 documented as of this encounter
--- OUTSIDE RECORDS SUMMARY | 2024-07-11 12:29 | XMS_ITS | Encounter Summary ---
Author Organization [facility] Address [address] [place] [address] Care Team Providers Care Orchestra Director Name Role Phone Baldomero Dominguez MD Primary Care Provider Jaciel Melo MD Unavailable [phone] Encounter Details Date Type Department Care Team (Late st Contact Info) Description 06/08/2020 Telephone [facility] Healthcare Occupatiuonal Health [address] [facility] [address] (Third Floor) [place], [place] [id number] Gertrudis Recinos, SHIVANI [address] [address] Social History Tobacco Use Types Packs/Day Years Used Date Smoking Tobacco: Never Comments No Sex and Gender Information Value Date Recorded Sex Assigned at Not on file Legal Sex Female 1:19 PM CLOTH EXAMINER HAND Gender Identity Not on file Sexual Orientation Not on file documented as of this encounter Miscellaneous Notes * Telephone Encounter - Gertrudis Recinos RN - 06/08/2020 9:32 AM CST Employee COVID-19 Screening 06/08/2020 Email: [email or web address] Employee/[email or web address] ID# [id number] Are you an employee or student? Employee Employer: [facility] [facility] Employee Facility: [facility] Does your job primarily involve providing care for bone marrow transplant patients? 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 What department do you work/study in? [employer] Buckle Stringer/Printing Press Machine Operator name and email address: Edith Hobson/ [email or web address] Are you working/studying from home or on-site? [...] and evening)using the COVID-19 Symptom Log at: [email or web address]. If you donot have Internet access, use the form we will mail to you. ?? You must notify your local occupational Health office as before the start of each work shift during the 14 days to confirm that you have no concerning symptoms and your temperature is less than 100??F. If you are using the [employer] database, you will not need a separate notification. Otherwise: ?? For [facility], email [email or web address] ?? For [facility], call your local [place] office at (see list of [facility] [place] phone numbers Appendix D) ?? If [...] work, you must stop work, notify your machine operations supervisor, andcontact your local Occupational Health office [...] not be allowed to come to work. H EXAMINER HAND documented in this encounter Plan of Treatment Not on file documented as of this encounter Visit Diagnoses Not on filedocumented in this encounter Care Teams Orchestra Director Relationship Specialty Start Date End Date Baldomero Dominguez MD PCP - General 01/07/17 Jaciel Melo MD [place] Cardiovascular Disease 04/12/19 2 documented as of this encounter
--- OUTSIDE RECORDS SUMMARY | 2024-07-11 12:29 | XMS_ITS | Encounter Summary ---
Author Organization [facility] Address [address] [place] [address] Phone Care Team Providers Care Processor Inspector Name Role Phone Baldomero Dominguez MD Primary Care Provider [phone] Jaciel Melo MD Unavailable [phone] Encounter Details Date Type Department Care Team (Late st Contact Info) Description 06/24/[address] [facility] Neuro Sleep [address] [facility] 6th [address] [place] [address] Sen Ba RPSGT Social History Tobacco Use Types Packs/Day Years Used Date Smoking Tobacco: Never Comments No Sex and Gender Information Value Date Recorded Sex Assigned at Not on file Legal Sex Female 1:19 PM HIP HOP DANCE INSTRUCTOR Gender Identity Not on file Sexual Orientation Not on file documented as of this encounter Miscellaneous Notes * Telephone Encounter - Sen Ba RPSGT - 06/24/2020 9:39 AM HIP HOP DANCE INSTRUCTOR Patient called stating that she needs to have her HST setup done prior to her surgery dated 07/16/20. It looks like after attempting to reach pt, she is scheduled for 07/15 via my chart. Informed patient that we will give her a call back today to arrange a setup this week after checking with her insurance. Patient voiced understanding. HOP DANCE INSTRUCTOR documented in this encounter Plan of Treatment Not on file documented as of this encounter Visit Diagnoses Not on filedocumented in this encounter Care Teams Processor Inspector Relationship Specialty Start Date End Date Baldomero Dominguez MD PCP - General 01/07/17 Jaciel Melo MD Box Printing Machine Operator Cardiovascular Disease 04/12/19 2 documented as of this encounter
--- OUTSIDE RECORDS SUMMARY | 2024-07-11 12:29 | XMS_ITS | Encounter Summary ---
Author Organization [facility] Address [address] [place] [address] Phone Care Team Providers Care Director Trading Name Role Phone Baldomero Dominguez MD Primary Care Provider [phone] Jaciel Melo MD Unavailable [phone] Reason for Visit * Sleep Medicine (Routine) - Closed Specialty Diagnoses / Procedures Referred By Vianca montiel Referred To Contact Diagnoses Restless sleeper Procedures Portable/Home Sleep Study Jamie Kevin NP [address] [place] [address] Phone: tel: fax: [facility] (All Locations) Referral ID Status Reason Start Date Expiration Date Visits Re quested Visits Authorized [id number] Closed 06/24/2020 07/25/2020 1 1 Encounter Details Date Type Department Care Team (Late st Contact Info) Description 06/26/2020 2:00 PM GRITTING MACHINE OPERATOR Procedure visit [facility] Neuro Sleep [address] 6th [address] [place] [address] Restless sleeper Social History Tobacco Use Types Packs/Day Years Used Date Smoking Tobacco: Never Comments No Sex and Gender Information Value Date Recorded Sex Assigned at Not on file Legal Sex Female 1:19 PM GRITTING MACHINE OPERATOR Gender Identity Not on file [...] I will contact the Sleep Center at [phone]. If I fail to contact or return the device, I understand I will be charged for the cost in full. By signing this form, I have read and understand the agreement: Patient Signature: Witness Signature: Date: 06/26/20 2:00pm 66 287lbs TING MACHINE OPERATOR * Sen Ba RPSGT - 06/26/2020 2:00 [...] hours a day, 7 days a week. TING MACHINE OPERATOR * Jaycee Persaud MD PhD - 06/26/2020 [...] report. This study was performed using a Moozey Night One portable monitoring unit, serial number [id number], a type 3 portable monitoring device. Variables [...] underestimated. Interpretation: This ambulatory study using the RespirOrphazyme Night One portable monitoring unit did not confirm clinically significant sleep apnea. An unattended sleep apnea test such as this may not garbage pick up worker subtle breathing changes that can fragment sleep [...] this written report. Jaycee Persaud M.D., Ph.D. International Marketing Manager of Neurology Diplomate, [place] Board of Psychiatry and Neurology with added Qualifications in Sleep Medicine TING MACHINE OPERATOR documented in this encounter Plan of Treatment Not on file documented as of this encounter Procedures Procedure Name Priority Date/Time Associated Diagnosis Comments PORTABLE/HOME SLEEP STUDY Routine 06/26/2020 2:00 PM GRITTING MACHINE OPERATOR Restless sleeper documented in this encounter Results * PORTABLE/HOME SLEEP STUDY (06/26/2020 2:00 PM GRITTING MACHINE OPERATOR) Narrative Jaycee Persaud MD PhD - 06/26/2020 2:00 PM GRITTING MACHINE OPERATOR Jaycee Persaud MD PhD ? 06/28/2020 ??7:39 AM Portable/Home Sleep Study Date/Time: 06/26/2020 10:00 PM Performed by: Jaycee Persaud MD PhD Authorized by: Jamie Kevin NP Jamie Kevin NP SLEEP CENTER ORDERABLES Ingris l Result documented in this encounter Visit Diagnoses Diagnosis Restless sleeper documented in this encounter Care Teams Director Trading Relationship Specialty Start Date End Date Baldomero Dominguez MD PCP - General 01/07/17 Jaciel Melo MD Financial Analysis Manager Cardiovascular Disease 04/12/19 2 documented as of this encounter
--- OUTSIDE RECORDS SUMMARY | 2024-07-11 12:29 | XMS_ITS | Encounter Summary ---
Author Organization [facility] Address [address] [place] [address] Care Team Providers Care Plate Glass Polisher Name Role Phone Baldomero Dominguez MD Primary Care Provider Jaciel Melo MD Unavailable [phone] Encounter Details Date Type Department Care Team (Late st Contact Info) Description 07/09/2020 Orders Only [facility] Testing Site - [facility]. [address] [place] [address] Afsaneh Trejo MD [address] [facility] [phone] [place] [phone] Pre-operative laboratory examination (Primary Dx) Social History Tobacco Use Types Packs/Day Years Used Date Smoking Tobacco: Never Smokeless Tobacco: Never Alcohol Use Standard Drinks/Week Comments Yes 0 (1 standard drink = 0.6 oz pur e alcohol) occasional wine Comments No Sex and Gender Information Value Date Recorded Sex Assigned at Not on file Legal Sex Female 1:19 PM AIRCRAFT REFUELER Gender Identity Not on file Sexual Orientation [...] Testing site patient will be sent to: [place], [place] ?? Date testing requested: 07/13/2020 ?? Testing: COVID-RNA ?? Does the patient currently work in a healthcare facility with direct patient contact? No ?? Is the patient a resident of a congregate care or living setting? No ?? Is the patient ? No ?? Please select the performing region: [facility] RAFT REFUELER documented in this encounter Plan of Treatment Not on file documented as of this encounter Results * COVID-19 Coronavirus RNA Nasopharyngeal (07/13/2020 10:36 AM AIRCRAFT REFUELER) Pathologist [facility] COVID-19 RNA Not Detected [facility] Comment: Testing performed as a [...] COVID-19. Interpretive Data Testing performed by the [facility] Molecular Infectious Disease Laboratory. The 2019-Novel Coronavirus [...] on 2019. First COVID-19 test? Unknown [facility] Comment:Testing performed by : [facility], [address] [place]., [address] Employeed in healthcare? Unknown [facility] Comment:Testing performed by : [facility], [address] [facility], [address] status? No [facility] Comment:Testing performed by : [facility], [address] [facility], [address] Group care resident? Unknown [facility] Comment:Testing performed by : [facility], [address] [facility], [address] Hospitalized? Unknown [facility] Comment:Testing performed by : [facility], [address] [facility], [address] Is patient in ICU? Unknown [facility] Comment:Testing performed by : [facility], [address] [place] [address], [address] Symptomatic as defined by CDC? No [facility] Comment:Testing performed by : [facility], [address] [place] [address], [address] Nasopharyngeal 07/13/2020 10 :36 AM AIRCRAFT REFUELER 07/13/2020 9:34 PM AIRCRAFT REFUELER Narrative [facility] - 07/14/2020 8:28 PM AIRCRAFT REFUELER What is the reason for testing?->Screening prior to scheduled procedure or surgery Afsaneh Trejo MD LAB MICROBIOLOGY - GENERAL [facility] REYNOSO Final Result Performing Organization Address City/State/[facility] Phone Number [facility] [address] [facility] Department [place] [address] documented in this encounter Visit Diagnoses Diagnosis Pre-operative laboratory examination- Primary Pre-procedural laboratory examination Pre-operative laboratory examination Pre-procedural laboratory examination documented in this encounter Care Teams Plate Glass Polisher Relationship Specialty Start Date End Date Baldomero Dominguez MD PCP - General 01/07/17 Jaciel Melo MD Special Needs Nanny Cardiovascular Disease 04/12/19 2 documented as of this encounter
--- OUTSIDE RECORDS SUMMARY | 2024-07-11 12:29 | XMS_ITS | Encounter Summary ---
Author Organization [facility] Address [address] [place] [address] Phone Care Team Providers Care Superintendent Container Terminal Name Role Phone Baldomero Dominguez MD Primary Care Provider [phone] Jaciel Melo MD Unavailable [phone] Encounter Details Date Type Department Care Team (Late st Contact Info) Description 07/08/2020 Orders Only [facility] Neuro Sleep [address] 6th [address] [place] [address] Yobani Cervantes RPSGT Social History Tobacco Use Types Packs/Day Years Used Date Smoking Tobacco: Never Comments No Sex and Gender Information Value Date Recorded Sex Assigned at Not on file Legal Sex Female 1:19 PM PIANO ASSEMBLER Gender Identity Not on file Sexual Orientation Not on file documented as of this encounter Progress Notes * Yobani Cervantes RPSGT - 07/08/2020 2:33 PM CST Calling patient about pre-procedural COVID -19 test prior to scheduled sleep study. LVM O ASSEMBLER documented in this encounter Plan of Treatment Not on file documented as of this encounter Visit Diagnoses Not on filedocumented in this encounter Care Teams Superintendent Container Terminal Relationship Specialty Start Date End Date Baldomero Dominguez MD PCP - General 01/07/17 Jaciel Melo MD Fresh Foods Clerk Cardiovascular Disease 04/12/19 2 documented as of this encounter
--- OUTSIDE RECORDS SUMMARY | 2024-07-11 12:29 | XMS_ITS | Encounter Summary ---
Author Organization [facility] Address [address] [place] [address] Phone Care Team Providers Care Pure Pak Machine Operator Name Role Phone Baldomero Dominguez MD Primary Care Provider [phone] Jaciel Melo MD Unavailable [phone] Encounter Details Date Type Department Care Team (Late st Contact Info) Description 05/31/2020 Telephone [facility] Neema Bonilla Social History Tobacco Use Types Packs/Day Years Used Date Smoking Tobacco: Never Comments No Sex and Gender Information Value Date Recorded Sex Assigned at Not on file Legal Sex Female 1:19 PM MINE SHIFTER Gender Identity Not on file Sexual Orientation Not on file documented as of this encounter Miscellaneous Notes * Telephone Encounter - Neema Bonilla - 05/31/2020 10:21 AM CST Primary Insurance Insurance Roof Cement And Paint Maker & Phone: Jd seay/[facility] Zenia @ [phone] case #[id number] is pending medical review Predetermination Date Sent: 05.31.2020 Comments: Faxed clinicals for CPT 81926 BW DOS 2020 to [phone] Predetermination Date Approved: 06.06.2020 Received faxed approval from [facility] Zenia for CPT 68193 BW DOS 2020 to 09.03.2019 Approval/Authorization #: [id number] Comments: Pre Cert to call and amend DOS and Facility changes Approval scanned in Secondary Insurance Insurance Roof Cement And Paint Maker & Phone: EARLENE @ [phone] Predetermination Date Sent: 05.31.2020 Comments: Faxed clinicals for CPT 09838 BW DOS 2020 to [phone] Predetermination Date Approved: 07.03.2020 Per Carrei seay/EARLENE CPT 81729 BW is approved (date span 2020 to 12.30.2020) Approval/Authorization #: [id number] Comments: Pre Cert to call and amend DOS and Facility changes 07.03.2020 Say Bethea I approved lap sleeve gastrectomy for Rowena Quesada. Prior approval # [id number] for dates of service 07/02/20-12/30/20. Be safe & stay healthy! Carrie Roa Medical Assistance Head Refrigeration Engineer III [facility] Division of Medical Programs [facility] [employer]illary [facility] [email or web address] 06.05.2020 Epic Note sent to the division: 06.05.2020 Note sent to the division. Good afternoon Neftali Bethea???ve received and reviewed Gregory Quesada #[id number]. The following information is still needed: Hepatitis screening Abdominal ultrasound Sleep study (her Stop-Bang screening was a 3 per Berry Atkins NP report) Thanks, Paulina Guerrero Medical Assistance Head Refrigeration Engineer III [facility] Division of Medical Programs [facility] [phone] [email or web address] ----- Message from Darleen Foster sent at 05/30/2020 11:29 AM MINE SHIFTER ----- Regarding: Pre- D Benefits need verified Bariatric Requesting Pre-Determination Benefits Ordering Physician: Guanaco Procedure Description: Sleeve CPT Code: 56299 Diagnosis Code: Morbid Obesity--DX E66.01 Place of Service: BW Admit Status: SDSA Tentative Date of Service: 2020 Other: The above location and date could possibly change. SHIFTER SHIFTER SHIFTER SHIFTER SHIFTER SHIFTER SHIFTER documented in this encounter Plan of Treatment Not on file documented as of this encounter Visit Diagnoses Not on filedocumented in this encounter Care Teams Pure Pak Machine Operator Relationship Specialty Start Date End Date Baldomero Dominguez MD PCP - General 01/07/17 Jaciel Melo MD Communications Tower Climber Cardiovascular Disease 04/12/19 2 documented as of this encounter
--- OUTSIDE RECORDS SUMMARY | 2024-07-11 12:29 | XMS_ITS | Encounter Summary ---
Author Organization [facility] Address [address] [place] [address] Phone Care Team Providers Care Summer Law Clerk Name Role Phone Baldomero Dominguez MD Primary Care Provider [phone] Jaciel Melo MD Unavailable [phone] Reason for Referral * Sleep Medicine (Routine) - Closed Specialty Diagnoses / Procedures Referred By Vianca montiel Referred To Contact Diagnoses Restless sleeper Procedures Portable/Home Sleep Study Jamie Kevin NP [address] [place] [address] Phone: tel: fax: [facility] (All Locations) Referral ID Status Reason Start Date Expiration Date Visits Re quested Visits Authorized [id number] Closed 06/24/2020 07/25/2020 1 1 EYOR GEOPHYSICAL PROSPECTING Reason for Visit * Consultation (Routine) - Closed Specialty Diagnoses / Procedures Referred By Contvaishnavi montiel Referred To Contact Sleep Medicine Diagnoses Morbid obesity (HCC) Thierno Blanc MD Phone: tel: fax: External Order Referral ID Status Reason Start Date Expiration Date V isits Requested Visits Authorized [id number] Closed Specialty Services Required 04/23/2020 05/23/2021 1 1 Encounter Details Date Type Department Care Team (Late st Contact Info) Description 06/14/2020 11:00 AM SURVEYOR GEOPHYSICAL PROSPECTING Telemedicine [facility] Neuro Sleep [address] [place] [address] Jamie Kevin NP [address] [place] [address] Restless sleeper (Primary Dx); Morbid obesity (CMS/HCC) Social History Tobacco Use Types Packs/Day Years Used Date Smoking Tobacco: Never Comments No Sex and Gender Information Value Date Recorded Sex Assigned at Not on file Legal Sex Female 1:19 PM SURVEYOR GEOPHYSICAL PROSPECTING Gender Identity Not on file Sexual Orientation Not on file documented as of this encounter Progress Notes * Jamie Kevin NP - 06/14/2020 11:00 AM CST This was a telemedicine visit with Derrick Martinez Fithian jai which took place via Real-time video connection (CardShark Poker Productsuch, Zoom or similar). During the visit, I was located at home office in the [facility] and the patient was located home in [place]. The session started at 11:00 am and [...] Name: DERRICK QUESADA Medical Record Number (MRN): [id number] Date of (): 1965 Encounter Date: 06/14/2020 [...] She has not dozed off while driving. [place] sleepiness scale today was not filled out. 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 Jamie Kevin NP 06/14/2020 11:03 AM EYOR GEOPHYSICAL PROSPECTING documented in this encounter Plan of Treatment Not on file documented as of this encounter Results * PORTABLE/HOME SLEEP STUDY (06/26/2020 2:00 PM SURVEYOR GEOPHYSICAL PROSPECTING) Narrative Jaycee Persaud MD PhD - 06/26/2020 2:00 PM SURVEYOR GEOPHYSICAL PROSPECTING Jaycee Persaud MD PhD ? 06/28/2020 ??7:39 AM Portable/Home Sleep Study Date/Time: 06/26/2020 10:00 PM Performed by: Jaycee Persaud MD PhD Authorized by: Jamie Kevin NP Jamie Kevin [facility] ORDERABLES Ingris l Result documented in this encounter Visit Diagnoses Diagnosis Restless sleeper- Primary Morbid obesity (HCC) Morbid obesity Restless sleeper documented in this encounter Orders Outpatient Referral Count Last Ordered Date Fir st Ordered Date AMB REFERRAL TO SLEEP MEDICINE 1 06/14/2020 documented in this encounter Care Teams Summer Law Clerk Relationship Specialty Start Date End Date Baldomero Dominguez MD PCP - General 01/07/17 Jaciel Melo MD Investment Banking Manager Cardiovascular Disease 04/12/19 2 documented as of this encounter
--- OUTSIDE RECORDS SUMMARY | 2024-07-11 12:29 | XMS_ITS | Encounter Summary ---
Author Organization [facility] Address [address] [place] [address] Phone Care Team Providers Care Business Analyst Consultant Name Role Phone Baldomero Dominguez MD Primary Care Provider [phone] Jaciel Melo MD Unavailable [phone] Encounter Details Date Type Department Care Team (Late st Contact Info) Description 07/01/2020 Telephone [facility] Neuro Sleep [address] 6th [address] [place] [address] Yanira Carbajal Social History Tobacco Use Types Packs/Day Years Used Date Smoking Tobacco: Never Comments No Sex and Gender Information Value Date Recorded Sex Assigned at Not on file Legal Sex Female 1:19 PM TRANSPORT PILOT Gender Identity Not on file Sexual Orientation Not on file documented as of this encounter Miscellaneous Notes * Telephone Encounter - Yanira Carbajal - 07/01/2020 1:09 PM CST ----- Message from Jamie Kevin NP sent at 07/01/2020 12:10 PM TRANSPORT PILOT ----- Say Doyle, As discussed on the phone. She needs an in lab PSG leonard for pending surgery. thanks SPORT PILOT documented in this encounter Plan of Treatment Not on file documented as of this encounter Visit Diagnoses Not on filedocumented in this encounter Care Teams Business Analyst Consultant Relationship Specialty Start Date End Date Baldomero Dominguez MD PCP - General 01/07/17 Jaciel Melo MD Postal Inspector Cardiovascular Disease 04/12/19 2 documented as of this encounter
--- OUTSIDE RECORDS SUMMARY | 2024-07-11 12:29 | XMS_ITS | Encounter Summary ---
Author Organization [facility] Address [address] [place] [address] Phone Care Team Providers Care Business English Instructor Name Role Phone Baldomero Dominguez MD Primary Care Provider Jaciel Melo MD Unavailable [phone] Lane Gonzalez MD Unavailable Pee Villasenor MD Unavailable Encounter Details Date Type Department Care Team (Late st Contact Info) Description 2020 Telephone [facility] Neuro Sleep [address] 6th [address] [place] [address] Sen Ba, RPSGT Social History Tobacco Use Types Packs/Day Years Used Date Smoking Tobacco: Never Comments No Sex and Gender Information Value Date Recorded Sex Assigned at Not on file Legal Sex Female 1:19 PM WINDOW SHADE CUTTER AND MOUNTER Gender Identity Not on file Sexual Orientation Not on file documented as of this encounter Plan of Treatment Not on file documented as of this encounter Visit Diagnoses Not on filedocumented in this encounter Additional Health Concerns Infection Onset Date Last Indicated Resolved Time COVID: Suspected 09/28/2020 09/28/2020 09/29/2020 4:28 AM WINDOW SHADE CUTTER AND MOUNTER COVID: Suspected 03/28/2021 03/28/2021 04/11/2021 3:05 AM CDT COVID: Suspected 05/13/2021 05/13/2021 05/13/2021 10:05 PM CDT COVID: Suspected 11/25/2021 12/23/2021 11/26/2021 3:05 AM CDT COVID: Suspected 12/23/2021 12/23/2021 12/24/2021 1:10 AM CDT documented as of this encounter Care Teams Business English Instructor Relationship Specialty Start Date End Date Baldomero Dominguez MD PCP - General 01/07/17 Jaciel Melo MD Manual Winder Cardiovascular Disease 04/12/[address] Gonzalez MD [address] [place] [address] [place] [address] Consulting Physician Interventional Cardiology 12/18/21 Pee Villasenor MD [address] [place] [address] [place] [address] Consulting Physician Obstetrics and Gynecology 12/26/21 documented as of this encounter
--- OUTSIDE RECORDS SUMMARY | 2024-07-11 12:30 | XMS_ITS | Encounter Summary ---
Author Organization [facility] Healthcare Address [address] [place] [address] Care Team Providers Care Beauty Culturist Apprentice Name Role Phone Baldomero Dominguez MD Primary Care Provider [phone] Jaciel Melo MD Unavailable [phone] Encounter Details Date Type Department Care Team (Late st Contact Info) Description 03/01/2020 7:41 AM CDT - 03/01/2020 9:27 AM CDT Hospital Encounter [facility] Endoscopy [address] [place] [address] Blanche Leo MD [address] [place], [place] [address] Morbid obesity due to excess calories (CMS/HCC) Discharge Disposition: Discharge to home or self care Social History Tobacco Use Types Packs/Day Years Used Date Smoking Tobacco: Never Comments No Sex and Gender Information Value Date Recorded Sex Assigned at Not on file Legal Sex Female 1:19 PM SOFTWARE PROGRAMMER Gender Identity Not on file Sexual Orientation [...] unspecified site - UNSPECIFIED OSTEOARTHRITIS, UNSPECIFIED SITE prison (current) use of non-steroidal anti-inflammatories (nsaid) - ACCOUNT SUPERVISOR (CURRENT) USE OF NON-STEROIDAL ANTI-INFLAMMATORIES (NSAID) Other vermin exterminator (current) drug therapy - OTHER NURSING HOME (CURRENT) DRUG THERAPY Family history of ischemic [...] a any questions or concerns, please give [facility] Weight Loss Surgery a call during the day at [phone], Option 2 or at [phone] at night or on the weekends. documented in this encounter Medications at Time of Discharge diltiaZEM (CARDIZEM) 120 mg tabletIndications :Supraventricular Arrhythmias [...] day as needed for pain 02/13/2020 3 albuterol HFA (PROVENTIL HFA,VENTOLIN HFA,PROAIR HFA) 90 mcg/actuation inhaler Inhale 1 puff every 6 (six) hours as needed for wheezing 4 documented as of this encounter Discharge Disposition Disposition Code Departure Means Destination Discharge to home or self care documented in this encounter H&P Notes * Blacnhe Leo MD - 02/29/2020 8:36 AM CDT [facility] Minimally Invasive Surgery Endoscopy History & Physical [...] 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 Room: [facility] ENDOSCOPY ROOM 02 Note Status: Finalized [...] by the physician, the nurse and the plywood and veneer repairer in the endoscopy suite. Mental Status Examination: [...] and oxygen saturations were monitored continuously. The [id number] was introduced through the mouth, and advanced [...] the office has given you. Come to [facility] ER entrance. There is free planning and analysis manager parking at this entrance or there is [...] safety and the safety of others per [facility] guidelines you are allowed one person to [...] biopsy) 03/01/2020 8:51 AM CDT Narrative PATHOLOGY [facility] - 03/04/2020 11:33 AM CDT EPIC results best viewed via link to PDF [facility] [place] [address] SURGICAL PATHOLOGY REPORT FINAL Patient Name: ?? ROWENA QUESADA Gender: ??F : ??1965 (Age: 54) [address]: [address] [place], [place] ??[address] Hospital #: ??[id number] Taken:03/01/2020 Received:03/01/2020 Reported: 03/04/2020 Patient Type: WC SDS Client ?[facility] Service: Surgery Location: [facility] Physician(s): ??MD Dr Baldomero Villeda Diagnosis: [...] this case was performed at [facility], Department of Surgical Pathology, [address] [facility], [place] [id number], ??[facility], [place] ??[address] ?? CLIA # [id number] Deloris Brady M.D., PhD History: The patient [...] determined by the Surgical Pathology Department at [facility] as part of an ongoing senior quality methods specialist program and in compliance with federally [...] the Surgical Pathology Department of [facility]. ??It has not been cleared or approved by the U. S. Food and Drug Administration. IMAGES AND SCANNED DOCUMENTS, IF INCLUDED, ONLY VIEWABLE IN PDF VERSION OF REPORT Blanche Leo MD LAB PATHOLOGY ORDERABLE S Final Result Performing Organization Address City/State/[facility] Co de Phone Number PATHOLOGY [facility] [phone] * POCT hCG, urine (03/01/2020 8:34 AM [...] Female Attending MD: Blanche Leo M.D. Room: [facility] ENDOSCOPY ROOM 02 Note Status: Finalized [...] verified by the physician,the nurse and the plywood and veneer repairer in the endoscopy suite.Mental Status Examination: alert [...] and oxygen saturations were monitored continuously. The [id number] was introduced through the mouth, and advanced [...] 01/2020 documented in this encounter Care Teams Beauty Culturist Apprentice Relationship Specialty Start Date End Date Baldomero Dominguez MD PCP - General 01/07/17 Jaciel Melo MD Emergency Medical Tech Cardiovascular Disease 04/12/19 2 documented as of this encounter
--- OUTSIDE RECORDS SUMMARY | 2024-07-11 12:30 | XMS_ITS | Encounter Summary ---
Author Organization [facility] Healthcare Address [address] [place] [address] Care Team Providers Care Tool And Production Planner Name Role Phone Baldomero Dominguez MD Primary Care Provider [phone] Encounter Details Date Type Department Care Team (Latest Contact Info) Description 07/25/2018 10:35 AM BEHAVIORAL HEALTH CLINICIAN - 07/25/2018 12:29 PM BEHAVIORAL HEALTH CLINICIAN Hospital Encounter [facility] ANAM VogelHammad, [address] [place] [address] Supraventricular tachycardia (CMS/HCC); Other cholelithiasis without obstruction; Obesity Social History Tobacco Use Types Packs/Day Years Used Date Smoking Tobacco: Never Comments Unknown Sex and Gender Information Value Date Recorded Sex Assigned at Not on file Legal Sex Female 1:19 PM BEHAVIORAL HEALTH CLINICIAN Gender Identity Not on file Sexual Orientation Not on file documented as of this encounter Last Filed Vital Signs Vital Sign Reading Time Taken Comments Blood Pressure 140/74 07/25/2018 10:37 AM BEHAVIORAL HEALTH CLINICIAN Pulse 90 07/25/2018 10:37 AM BEHAVIORAL HEALTH CLINICIAN Temperature 36.9 ??C (98.5 ??F) 07/25/2018 10:[address] Respiratory Rate - - Oxygen Saturation 95% 07/25/2018 10:37 AM BEHAVIORAL HEALTH CLINICIAN Inhaled Oxygen Concentration - - Weight 127 kg (280 lb) 07/25/2018 10:37 AM BEHAVIORAL HEALTH CLINICIAN Height 167.6 cm (5' 6 ) 07/25/2018 10:37 AM BEHAVIORAL HEALTH CLINICIAN Body Mass Index 45.19 07/25/2018 10:37 AM BEHAVIORAL HEALTH CLINICIAN documented in this encounter Plan of Treatment Not on file documented as of this encounter Procedures Procedure Name Priority Date/Time Associated Diagnosis Comments TNI WITH LIPID PANEL Routine 07/25/2018 11:02 AM BEHAVIORAL HEALTH CLINICIAN THYROID FUNCTION CASCADE Routine 07/25/2018 11:02 AM BEHAVIORAL HEALTH CLINICIAN CBC WITH AUTO DIFFERENTIAL Routine 07/25/2018 11:02 AM BEHAVIORAL HEALTH CLINICIAN D-DIMER, QUANTITATIVE Routine 07/25/2018 11:02 AM BEHAVIORAL HEALTH CLINICIAN COMPREHENSIVE METABOLIC PANEL Routine 07/25/2018 11:02 AM BEHAVIORAL HEALTH CLINICIAN XR CHEST 1 VIEW Routine 07/25/2018 12:00 AM BEHAVIORAL HEALTH CLINICIAN documented in this encounter Results * TSH reflex to free T4 (07/25/2018 11:02 AM BEHAVIORAL HEALTH CLINICIAN) TSH W REFLEX TO FT4 1.73 0.27 - 4.20 uIU/mL 07/25/2018 11:37 AM BEHAVIORAL HEALTH CLINICIAN [facility] HISTORICAL RESULTS 07/25/2018 11:0 2 AM BEHAVIORAL HEALTH CLINICIAN 07/25/2018 11:08 AM BEHAVIORAL HEALTH CLINICIAN Deanna MAURICE LAB BLOOD ORDERABLES Fin al Result [facility] HISTORICAL RESULTS * (ABNORMAL) D-dimer, quantitative (07/25/2018 11:02 AM BEHAVIORAL HEALTH CLINICIAN) D-Dimer, Quantitative 0.51(H) 0.00 - 0.50 FEUug/ml 07/25/2018 11:25 AM BEHAVIORAL HEALTH CLINICIAN [facility] HISTORICAL RESULTS Comment: Studies indicate that a D-Dimer level of <0.50 FEUug/ml has a >95% negative predictive value for DVT,DIC,PE and other embolus conditions. ??Levels >0.50 FEUug/ml may be present in a wide variety of conditions and should not be considered diagnostic of any disease state. 07/25/2018 11:0 2 AM BEHAVIORAL HEALTH CLINICIAN 07/25/2018 11:08 AM BEHAVIORAL HEALTH CLINICIAN us Hammad Vogel DO LAB BLOOD ORDERABLES Final Res ult [facility] HISTORICAL RESULTS * TNI with LIPID PANEL (07/25/2018 11:02 AM BEHAVIORAL HEALTH CLINICIAN) Troponin I < 0.300 0.000 - 0.300 [...] HDL Cholesterol 37 mg/dL 8 11:32 AM [facility] HISTORICAL RESULTS Comment: Reference Ranges: ? Males: >=40 mg/dL ? Females: >=50 mg/dL LDL Cholesterol, Calc 115 0 - 129 mg/dL Comment: National Lipid Association/NCEP Guidelines: ??Optimal ? < 100 mg/dL ??Near Optimal ?100-129 mg/dL ??Borderline high 130-159 mg/dL ??High ?>=160 mg/dL Cholesterol/HDL Ratio 4.7 07/25/2018 11:32 AM [facility] [employer] HISTORICAL RESULTS Comment: Optimal ??< 3.5:1 High ? > 5:1 07/25/2018 11:0 2 AM BEHAVIORAL HEALTH CLINICIAN 07/25/2018 11:08 AM BEHAVIORAL HEALTH CLINICIAN Deanna MAURICE LAB BLOOD ORDERABLES Fin al Result [facility] HISTORICAL RESULTS * (ABNORMAL) Comprehensive metabolic panel (07/25/2018 11:02 AM [facility]) Sodium 137 135 - 145 mmol/L 07/25/2018 11:32 AM [facility] [employer] HISTORICAL RESULTS Potassium 3.7 3.3 - 5.1 mmol/L 07/25/2018 11:32 AM [facility] HISTORICAL RES[facility] Chloride 101 96 - 108 mmol/L 07/25/2018 11:32 AM [facility] HISTORICAL RESULTS Carbon Dioxide 25 22 - 32 mmol/L 07/25/2018 11:32 AM [facility] HISTORICAL RESULTS Anion Gap 11 7 - 16 Glucose 109(H) 70 - 100 mg/dL BUN 10 6 - 20 mg/dL 07/25/2018 11:32 AM [facility] HISTORICAL RESULTS Creatinine 0.6 0.5 - 1.1 mg/dL 07/25/2018 11:32 AM [facility] HISTORICAL RESULTS Comment: NOTE: Estimated GFR (Cockroft-Gault) will NOT be calculated unless patient Height and Weight were entered. Also, Kidney Disease Stage (GFR) and Estimated GFR (Cockroft-Gault) will NOT be calculated if Creatinine result is <0.2. Kidney Disease Stage > 90 mL/MIN 07/25/2018 11:32 AM [facility] HISTORICAL RESULTS Comment: NOTE; ??The GFR is [...] GFR (Cockcroft-G) 151 ml/MIN 07/25/2018 11:32 AM [facility] HISTORICAL RESULTS Comment: Estimated GFR(Cockroft-Gault)is used to calculate patient medication dosage Calcium 8.9 8.6 - 10.0 mg/dL 07/25/2018 11:32 AM [facility] HISTORICAL RESULTS Total Protein 7.7 6.4 - 8.3 g/dL 07/25/2018 11:32 AM [facility] HISTORICAL RESULTS Albumin 3.9 3.5 - 5.2 g/dL 07/25/2018 11:32 AM [facility] HISTORICAL RESULTS Globulin 3.8(H) 2.3 - 3.5 gm/dL 07/25/2018 11:32 AM [facility] HISTORICAL RESULTS Albumin/Globulin Ratio 1.0(L) 1.1 - 1.8 07/25/2018 11:32 AM [facility] HISTORICAL RESULTS Total Bilirubin 0.2 0.0 - 1.2 mg/dL 07/25/2018 11:32 AM [facility] HISTORICAL RESULTS AST 25 0 - 32 U/L 07/25/2018 11:32 AM [facility] HISTORICAL RESULTS ALT 32 0 - 33 U/L 07/25/2018 11:32 AM [facility] HISTORICAL RESULTS Alkaline Phosphatase 67 35 - 104 U/L 07/25/2018 11:32 AM BEHAVIORAL HEALTH CLINICIAN [facility] HISTORICAL RESULTS 07/25/2018 11:0 2 AM BEHAVIORAL HEALTH CLINICIAN 07/25/2018 11:08 AM BEHAVIORAL HEALTH CLINICIAN Deanna MAURICE LAB BLOOD ORDERABLES Fin al Result [facility] HISTORICAL RESULTS * CBC with auto differential (07/25/2018 11:02 AM BEHAVIORAL HEALTH CLINICIAN) WBC 8.1 3.8 - 9.9 X10 3/ul 07/25/2018 11:10 AM BEHAVIORAL HEALTH CLINICIAN [facility] HISTORICAL RESULTS RBC 5.17 3.90 - 5.20 x10 6/ul 07/25/2018 11:10 AM [facility] HISTORICAL RESULTS Hemoglobin 14.6 11.9 - 15.5 g/dL 07/25/2018 11:10 AM [facility] HISTORICAL RESULTS Hct 43.8 35.6 - 45.5 % 07/25/2018 11:10 AM [facility] HISTORICAL RESULTS MCV 84.7 81.3 - 96.4 fl 07/25/2018 11:10 AM [facility] HISTORICAL RESULTS MCH 28.2 27.1 - 33.3 pg 07/25/2018 11:10 AM [facility] HISTORICAL RESULTS MCHC 33.3 32.3 - 35.7 g/dl 07/25/2018 11:10 AM [facility] HISTORICAL RESULTS RDW 14.0 11.1 - 14.9 % 07/25/2018 11:10 AM [facility] HISTORICAL RESULTS Plt Count 339 150 - 400 x10 3/ul 07/25/2018 11:10 AM [facility] HISTORICAL RESULTS MPV 9.8 9.1 - 12.3 fl 07/25/2018 11:10 AM [facility] HISTORICAL RESULTS Neut % 58.3 % 07/25/2018 11:10 AM [facility] HISTORICAL RESULTS Immature Gran % 0.2 % 8 11:10 AM [facility] HISTORICAL RESULTS Lymph % 29.9 % 07/25/2018 11:10 AM [facility] HISTORICAL RESULTS Mora % 8.0 % Eos % 3.1 % [...] - 8000 /ul 07/25/2018 11:0 2 AM BEHAVIORAL HEALTH CLINICIAN 07/25/2018 11:08 AM BEHAVIORAL HEALTH CLINICIAN us Deanna MAURICE LAB BLOOD ORDERABLES Fin al Result [facility] HISTORICAL RESULTS * XR Chest 1 View (07/25/2018 12:00 AM BEHAVIORAL HEALTH CLINICIAN) Anatomical Region Laterality Modality Body, Chest N/A Radiographic Phuong ging 07/25/2018 Impressions 07/25/2018 11:31 AM BEHAVIORAL HEALTH CLINICIAN ??No acute cardiopulmonary disease. THIS IS AN ELECTRONICALLY VERIFIED FINAL REPORT 07/25/2018 11:28 AM - Electronically signed by Yobani MOY D: ??07/25/2018 11:28 AM T: Report ID: [id number] Reading Location: ??[id number] [EOD] Narrative 07/25/2018 11:31 AM BEHAVIORAL HEALTH CLINICIAN EXAM DESCRIPTION: ??Chest 1 View Portable REASON [...] signed by Yobani MOY T: Report ID: [id number] Reading Location: [id number] [EOD] Deanna MAURICE IMG XR PROCEDURES Final Result documented in this encounter Visit Diagnoses Diagnosis Supraventricular tachycardia (HCC) Other specified cardiac dysrhythmias Other cholelithiasis without obstruction Obesity Obesity, unspecified documented in this encounter Care Teams Tool And Production Planner Relationship Specialty Start Date End Date Baldomero Dominguez MD PCP - General 01/07/17 documented as of this encounter
--- OUTSIDE RECORDS SUMMARY | 2024-07-11 12:30 | XMS_ITS | Encounter Summary ---
Author Organization [facility] Healthcare Address [address] [place] [address] Care Team Providers Care In House Counsel Name Role Phone Baldomero Dominguez MD Primary Care Provider [phone] Jaciel Melo MD Unavailable [phone] Reason for Referral * Diagnostic Imaging (Routine) - Closed Specialty Diagnoses / Procedures Referred By Vianca montiel Referred To Contact Diagnoses Morbid obesity (HCC) Procedures US Abdomen Limited Thierno Blanc MD Phone: tel: fax: External Order Referral ID Status Reason Start Date Expiration Date Visits Re quested Visits Authorized [id number] Closed 04/23/2020 05/23/2021 1 1 Encounter Details Date Type Department Care Team (Latest Contact Info) Description 05/13/2020 1:08 PM CDT Hospital Encounter [facility] INTERIM Thierno Blanc MD [address] [facility] [id number] [place] [address] Morbid obesity (CMS/HCC) Social History Tobacco Use Types Packs/Day Years Used Date Smoking Tobacco: Never Comments No Sex and Gender Information Value Date Recorded Sex Assigned at Not on file Legal Sex Female 1:19 PM FAILURE ANALYSIS ENGINEER Gender Identity Not on file Sexual [...] (05/13/2020 3:00 PM CDT) Specimen Type Oximeter [facility] Puncture Site FINGER [facility] O2 Sat Pulse Oximetry 99.0(H) 90.0 - 95 % [facility] FiO2 21.0 % [facility] Rf Technician ID [email or web address] [facility] BLOOD GAS COMMENTS RA O2 SAT WITH PFT [facility] 05/13/2020 3:00 PM CDT 05/13/2020 4:32 PM CDT Narrative Resulting Agency Comment CLI us Thierno Blanc MD LAB BLOOD ORDERABLES Final Resu lt [facility] [address] [place] [address], [facility] [phone] * US RUQ (05/13/2020 1:11 PM CDT) Anatomical Region Laterality Modality Abdomen N/A Ultrasound 05/13/2020 2:55 PM CDT Narrative 05/13/2020 3:05 PM CDT Patient Name: DERRICK QUESADA ?Ordering Dr: Thierno Blanc MD ?? D.O.B: 1965 ? Exam Date: 05/13/20 ?? 1311 ?? Age: 54 ?Sex: Female ? MR#: [id number] ?? Loc: ? RADIOLOGY REPORT ?? Order #[id number] ?? Ultrasound ? US Abd/Right Upper Quadrant [...] 3:05 PM ?? T: ? Report ID: [id number] ?? Reading Location: ??[id number] ? REPORT ELECTRONICALLY SIGNED IN OTHER VENDOR SYSTEM ?? Resulting Agency Comment O Procedure Note Anusha Neil MD - 05/13/2020 Patient Name: DERRICK QUESADA Dr: Thierno Blanc MD D.O.B: 1965 Exam Date: 05/13/20 1311 Age: 54 Sex: Female MR#: [id number] Loc: RADIOLOGY REPORT Order #[id number] Ultrasound US Abd/Right Upper Quadrant Signed EXAM DESCRIPTION: US Abd/Right Upper Quadrant REASON FOR STUDY: EVALUATE LIVER PRE OP EXAM PRIOR TO BARIATRICSURGERY TECHNIQUE: Ultrasound of the right upper quadrant of the abdomen was performed with grayscale and color doppler. COMPARISON: CT examination 10/22/2014 and ultrasound yihwrjjnonq73/31/2011. FINDINGS: PANCREAS: Visualized portions of the pancreas [...] Anusha Neil M.D. TB T: Report ID: [id number] Reading Location: [facility] REPORT ELECTRONICALLY SIGNED IN OTHER VENDOR SYSTEM [...] 05/13/2020 documented in this encounter Care Teams In House Counsel Relationship Specialty Start Date End Date Baldomero Dominguez MD PCP - General 01/07/17 Jaciel Melo MD Drilling Supervisor Cardiovascular Disease 04/12/19 2 documented as of this encounter
--- OUTSIDE RECORDS SUMMARY | 2024-07-11 12:30 | XMS_ITS | Encounter Summary ---
Author Organization [facility] Healthcare Address [address] [place] [address] Care Team Providers Care Biochemistry Professor Name Role Phone Baldomero Dominguez MD Primary Care Provider [phone] Jaciel Melo MD Unavailable [phone] Reason for Visit * Reason Comments Obesity Encounter Details Date Type Department Care Team (Latest Contact Info) Description 04/17/2020 9:00 AM CDT Clinical Support [facility] Diabetes and Nutrition [address] [address] Thierno Blanc MD [address] [facility] [id number] [place] [address] Morbid obesity (CMS/HCC) (Primary Dx) Discharge Disposition: Discharge to home or self care Social History Tobacco Use Types Packs/Day Years Used Date Smoking Tobacco: Never Comments No Sex and Gender Information Value Date Recorded Sex Assigned at Not on file Legal Sex Female 1:19 PM MEDIA CENTER SPECIALIST Gender Identity Not on file Sexual [...] which took place via Real-time video connection ([employer], Zoom or similar). During the visit, I was located in my [facility] office and the patient was [...] radish, tomato, red cabbage, carrots, diced ham, Divehi dressing, waterwith no sugar flavor packet Dinner: Marshallese sausage, sauerkraut, green beans, water with no [...] She had been keeping food records with [employer] - premium version which costs. She states her subscription ended and she wasn't able to afford currently, so has not been keeping food records. Recommended she sign up for the free version of [employer] which still allows tracking calories, protein, carb, fat, etc. Supplement use: Multivitamin - does not take. Calcium supplement - does not take. Vitamin D supplement - takes. Vitamin B 12 supplement - does not take. Takes 18 mg Iron per day. Current Diet: The Gypsum-St Jeor formula estimates her resting energy expenditure [...] obesity documented in this encounter Care Teams Biochemistry Professor Relationship Specialty Start Date End Date Baldomero Dominguez MD PCP - General 01/07/17 Jaciel Melo MD Property Disposal Manager Cardiovascular Disease 04/12/19 2 documented as of this encounter
--- OUTSIDE RECORDS SUMMARY | 2024-07-11 12:30 | XMS_ITS | Encounter Summary ---
Author Organization [facility] Address [address] [place] [address] Phone Care Team Providers Care Lead Systems Analyst Name Role Phone Baldomero Dominguez MD Primary Care Provider [phone] Jaciel Melo MD Unavailable [phone] Encounter Details Date Type Department Care Team (Late st Contact Info) Description 04/23/2020 Telephone [facility] Surgery [address] [place] [address] Medical Office Building [address] [place] [address] Velvet Nguyen, RN Social History Tobacco Use Types Packs/Day Years Used Date Smoking Tobacco: Never Comments No Sex and Gender Information Value Date Recorded Sex Assigned at Not on file Legal Sex Female 1:19 PM ANESTHETIC 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 Gonzalez (fax [phone]) per pt request Sleep Study: External orders mailed to patient per pt request Abdominal US: External orders mailed to patient per pt reques Chest XR: Scanned into Media Per Dr. Blanc, pt needs to request GI records summarizing her crohns disease status. Records request sent to Dr. Mahad Lucia ([phone]) per pt request. documented in this encounter Plan of Treatment Not on file documented as of this encounter Visit Diagnoses Not on filedocumented in this encounter Care Teams Lead Systems Analyst Relationship Specialty Start Date End Date Baldomero Dominguez MD PCP - General 01/07/17 Jaciel Melo MD Hvac Refrigeration Technician Cardiovascular Disease 04/12/19 2 documented as of this encounter
--- OUTSIDE RECORDS SUMMARY | 2024-07-11 12:30 | XMS_ITS | Encounter Summary ---
Author Organization [facility] Address [address] [place] [address] Phone Care Team Providers Care Drum Stock Clerk Name Role Phone Baldomero Dominguez MD Primary Care Provider Jaciel Melo MD Unavailable Encounter Details Date Type Department Care Team (Late st Contact Info) Description 02/23/2020 10:15 AM CDT Telemedicine [facility] Pain Management [address] [facility] Advanced Medicine [address]th [place] [address] [place] [address] Gertrudis Garcia, PhD [address] [place] [address] Morbid obesity (CMS/HCC) (Primary Dx); History of depression Social History Tobacco Use Types Packs/Day Years Used Date Smoking Tobacco: Never Comments Unknown Sex and Gender Information Value Date Recorded Sex Assigned at Not on file Legal Sex Female 1:19 PM EMR ANALYST Gender Identity Not on file Sexual [...] took place via real-time video connection with [employer]. During the visit, I was located at [...] She has yet to meet with the mobile architect to learn more about the dietary and [...] obesity. 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 Members of the household: , female twin daughter Sources of assistance and support: [employer] Mental status exam APPEARANCE Level of consciousness: [...] disorder documented in this encounter Care Teams Drum Stock Clerk Relationship Specialty Start Date End Date Baldomero Dominguez MD PCP - General 01/07/17 Jaciel Melo MD General Store Manager Cardiovascular Disease 04/12/19 2 documented as of this encounter
--- OUTSIDE RECORDS SUMMARY | 2024-07-11 12:30 | XMS_ITS | Encounter Summary ---
Author Organization [facility] Healthcare Address [address] [place] [address] Care Team Providers Care Service Control Operator Name Role Phone Baldomero Dominguez MD Primary Care Provider [phone] Jaciel Melo MD Unavailable [phone] Encounter Details Date Type Department Care Team (Late st Contact Info) Description 02/27/2020 5:30 PM CDT Lab [facility] of [address] [address] Pre-op testing Social History Tobacco Use Types Packs/Day Years Used Date Smoking Tobacco: Never Comments Unknown Sex and Gender Information Value Date Recorded Sex Assigned at Not on file Legal Sex Female 1:19 PM PRODUCTION MATERIAL HANDLER Gender Identity Not on file Sexual Orientation Not on file documented as of this encounter Plan of Treatment Not on file documented as of this encounter Procedures Procedure Name Priority Date/Time Associated Diagnosis Comments COVID-19 CORONAVIRUS RNA Routine 02/27/2020 11:03 AM CDT Pre-op testing documented in this encounter Results * COVID-19 Coronavirus RNA Nasopharyngeal (02/27/2020 11:03 AM CDT) COVID-19 RNA Not Detected [facility] Comment: Interpretive Data Testing performed at [facility] Molecular Infectious Disease Laboratory. [...] CDT 02/27/2020 8:40 PM CDT Narrative [facility] - 02/28/2020 2:43 AM CDT Is the patient experiencing any symptoms consistent with COVID (eg. Fever, cough, shortness of breath)?->No What is the reason for testing?->Screening prior to scheduled (>12 hr) surgery or procedure us Blanche Leo MD LAB MICROBIOLOGY - [facility] ORDERABLES Final Result [facility] [place] [address] documented in this encounter Visit Diagnoses Diagnosis Pre-op testing Unspecified pre-operative examination documented in this encounter Care Teams Service Control Operator Relationship Specialty Start Date End Date Baldomero Dominguez MD PCP - General 01/07/17 Jaciel Melo MD Core Rescuer Cardiovascular Disease 04/12/19 2 documented as of this encounter
--- OUTSIDE RECORDS SUMMARY | 2024-07-11 12:30 | XMS_ITS | Encounter Summary ---
Author Organization [facility] Healthcare Address [address] [place] [address] Care Team Providers Care Zoology Technical Officer Name Role Phone Baldomero Dominguez MD Primary Care Provider [phone] Jaciel Melo MD Unavailable [phone] Reason for Visit * Reason Comments Morbid Obesity * Consultation (Routine) - Closed Specialty Diagnoses / Procedures Referred By Vianca montiel Referred To Contact Diabetes and Nutrition Services Diagnoses Morbid obesity (HCC) Essential hypertension Osteoarthritis Berry Atkins, SHIVANI Phone: tel: fax: [place] [id number] [place] [address] Referral ID Status Reason Start Date Expiration Date V isits Requested Visits Authorized [id number] Closed Specialty Services Required 01/04/2020 07/15/2021 10 10 Encounter Details Date Type Department Care Team (Latest Contact Info) Description 03/06/2020 9:00 AM CDT Clinical Support [facility] Diabetes and Nutrition [address] [facility] [address] [place] [address] Thierno Blanc MD [address] [facility] [phone] [place] [address] Kaykay Coelho, Berry Encarnacion, SHIVANI [address] [facility] [phone] [place] [address] Morbid obesity (CMS/HCC); Essential hypertension; Osteoarthritis Discharge Disposition: Discharge to home or self care Social History Tobacco Use Types Packs/Day Years Used Date Smoking Tobacco: Never Comments No Sex and Gender Information Value Date Recorded Sex Assigned at Not on file Legal Sex Female 1:19 PM GASOLINE PUMP 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 During the visit, I was located in my [facility] office and the patient was [...] to lose weight in the past with [place] diet, Taylor's diet, and low calorie diet [...] 2019 documented in this encounter Care Teams Zoology Technical Officer Relationship Specialty Start Date End Date Baldomero Dominguez MD PCP - General 01/07/17 Jaciel Melo MD Boilermaker Helper Cardiovascular Disease 04/12/19 2 documented as of this encounter
--- OUTSIDE RECORDS SUMMARY | 2024-07-11 12:30 | XMS_ITS | Encounter Summary ---
Author Organization [facility] Address [address] [place] [address] Phone Care Team Providers Care Sorter Lumber Straightener Name Role Phone Baldomero Dominguez MD Primary Care Provider [phone] Jaciel Melo MD Unavailable [phone] Michele León DPT Unavailable [phone] Encounter Details Date Type Department Care Team (Late st Contact Info) Description 09/25/2019 Telephone [facility] Neema Bonilla Social History Tobacco Use Types Packs/Day Years Used Date Smoking Tobacco: Never Comments Unknown Sex and Gender Information Value Date Recorded Sex Assigned at Not on file Legal Sex Female 1:19 PM TREATMENT TECHNICIAN Gender Identity Not on file Sexual Orientation Not on file documented as of this encounter Miscellaneous Notes * Telephone Encounter - Neema Bonilla - 09/25/2019 7:52 AM CST Bariatric Benefit and Communication Form Primary Insurance: [facility] Zenia - Medical Policy #[id number] Effective: 07.26.2016 S/W name and number: Ariella Kent @ [phone] - Call ref: [phone] Bariatric Surgery Benefits: [x] Yes [] No - Insurance excludes bariatric surgery [x] Patient CAN have surgery at a [place] facility Blue Distinction/IOQ/JAYRO non-[place] facility required: No Bariatric Copay: [x] N/A [...] months supervised either by a Physician, PA, BREAKDOWN MAN or RD Morbid Obesity weight and date requirement: [x] Not required [] 2YR [] 3YR [] 5YR Insurance Requires: Patient must be enrolled with plan for at least 1 year before surgery will be covered. Other Instructions: -- Launch Engineer Obtaining Benefits: EDM...09.25.2019 Secondary Insurance: IDPA Effective: 04.23.2020 S/W name and number: Bariatric Surgery Benefits: [x] Yes [] No - Insurance excludes bariatric surgery [x] Patient CAN have surgery at a [facility] [x] Patient CAN have surgery at a [facility] Blue Distinction/IOQ/JAYRO non-[place] facility required: No [] Patient CANNOT have surgery at a [facility]. Employee: [facility] [] [facility] [] [facility][] Bariatric Copay: [x] N/A or [] $ [...] by the National Heart, Lung, and Blood [place] [9] or for adolescents by age and [...] Pickwickian syndrome. Other Instructions: Fax Clinicals to [phone] Attn: Carrie Roa Launch Engineer Obtaining Benefits: EDM...04.23.2020 TMENT TECHNICIAN documented in this encounter Plan of Treatment Not on file documented as of this encounter Visit Diagnoses Not on filedocumented in this encounter Care Teams Sorter Lumber Straightener Relationship Specialty Start Date End Date Baldomero Dominguez MD PCP - General 01/07/17 Jaciel Melo MD Paramedical Aide Cardiovascular Disease 04/12/19 2 Michele León DPT [address] [facility] [address] [place] [address] Physical Therapist Physical Therapy 01/25/20 01/25/20 documented as of this encounter
--- OUTSIDE RECORDS SUMMARY | 2024-07-11 12:30 | XMS_ITS | Encounter Summary ---
Author Organization [facility] Healthcare Address [address] [place] [address] Care Team Providers Care Nurse Informatics Educator Name Role Phone Baldomero Dominguez MD Primary Care Provider [phone] Jaciel Melo MD Unavailable [phone] Reason for Visit * Reason Comments Morbid Obesity Encounter Details Date Type Department Care Team (Latest Contact Info) Description 03/12/2020 9:00 AM CDT Clinical Support [facility] Diabetes and Nutrition [address] [address] Thierno Blanc MD [address] [facility] [phone] [place] [address] Morbid obesity (CMS/HCC) (Primary Dx) Discharge Disposition: Discharge to home or self care Social History Tobacco Use Types Packs/Day Years Used Date Smoking Tobacco: Never Comments No Sex and Gender Information Value Date Recorded Sex Assigned at Not on file Legal Sex Female 1:19 PM DEAN OF EDUCATION Gender Identity Not on file Sexual Orientation [...] a 54 y.o. female Referring Physician: Dr. lBanc / Berry Atkins NP 03/12/2020 Medically Supervised Weight Loss Visit Month 5 (Months 1 - 4 were done with PCP) This was a telemedicine visit with Rowena Martinez Dipak alone which took place via Real-time video connection (Cozy, Zoom or similar). During the visit, I was located in my [facility] office and the patient was located [...] with PCP, she had been using My [employer] to keep food records and PCP had [...] mg Iron per day. Current Diet: The [place]-St Jeor formula estimates her resting energy expenditure [...] obesity documented in this encounter Care Teams Nurse Informatics Educator Relationship Specialty Start Date End Date Baldomero Dominguez MD PCP - General 01/07/17 Jaciel Melo MD Manager Merchandise Cardiovascular Disease 04/12/19 2 documented as of this encounter
--- OUTSIDE RECORDS SUMMARY | 2024-07-11 12:30 | XMS_ITS | Encounter Summary ---
Author Organization [facility] Address [address] [place] [address] Phone Care Team Providers Care Industrial Designer Name Role Phone Baldomero Dominguez MD Primary Care Provider [phone] Jaciel Melo MD Unavailable [phone] Encounter Details Date Type Department Care Team (Late st Contact Info) Description 01/24/2020 Telephone [facility] Physical Therapy [address] [facility] 1st Floor [address] [place] [address] Michele León, ZORA [address] [facility] [address] [address] Social History Tobacco Use Types Packs/Day Years Used Date Smoking Tobacco: Never Comments Unknown Sex and Gender Information Value Date Recorded Sex Assigned at Not on file Legal Sex Female 1:19 PM 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
--- OUTSIDE RECORDS SUMMARY | 2024-07-11 12:30 | XMS_ITS | Encounter Summary ---
Author Organization [facility] Healthcare Address [address] [place] [address] Care Team Providers Care Frame Stylist Name Role Phone Baldomero Dominguez MD Primary Care Provider [phone] Encounter Details Date Type Department Care Team (Latest Contact Info) Description 05/25/2018 6:04 AM CDT Hospital Encounter [facility] OP Baldomero Dominguez MD [address] [place] [address] Iron deficiency anemia; Localized edema Social History Tobacco Use Types Packs/Day Years Used Date Smoking Tobacco: Never Comments Unknown Sex and Gender Information Value Date Recorded Sex Assigned at Not on file Legal Sex Female 1: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 Gender Identity Not on file Sexual Orientation [...] CDT) TSH 1.53 0.27 - 4.20 uIU/mL Free T4 1.04 0.93 - 1.70 ng/dL 05/25/2018 6:22 AM CDT 05/25/2018 6:35 AM CDT us Baldomero Dominguez MD LAB BLOOD ORDERABLES Final Resul t Performing Organization Address [facility]/ZIP Co de Phone Number [facility] HISTORICAL RESULTS * (ABNORMAL) Vitamin D 25 hydroxy (05/25/2018 6:22 AM CDT) 25-OH Vitamin D Total 24(L) 30 - 80 ng/mL 05/25/2018 6:22 AM CDT 05/25/2018 6:35 AM CDT us Baldomero Dominguez MD LAB BLOOD ORDERABLES Final Resul t Performing Organization Address City/[facility]/ZIP Co de Phone Number [facility] HISTORICAL RESULTS * (ABNORMAL) Iron profile w/ IBC (05/25/2018 6:22 AM CDT) Iron 35(L) 37 - 145 ug/dL TIBC 311 228 - 428 ug/dL Transferrin % Sat 11(L) 20 - 50 % 05/25/2018 6:22 AM CDT 05/25/2018 6:35 AM CDT us Baldomero Dominguez MD LAB BLOOD ORDERABLES Final Resul t [facility] HISTORICAL RESULTS * (ABNORMAL) Comprehensive metabolic [...] LAB BLOOD ORDERABLES Final Resul t [facility] HISTORICAL RESULTS documented in this encounter Visit Diagnoses Diagnosis Iron deficiency anemia Unspecified iron deficiency anemia Localized edema Edema documented in this encounter Care Teams Frame Stylist Relationship Specialty Start Date End Date Baldomero Dominguez MD PCP - General 01/07/17 documented as of this encounter
--- OUTSIDE RECORDS SUMMARY | 2024-07-11 12:30 | XMS_ITS | Encounter Summary ---
Author Organization [facility] Address [address] [place] [address] Phone Care Team Providers Care Die Try Out Worker Name Role Phone Baldomero Dominguez MD Primary Care Provider [phone] Jaciel Melo MD Unavailable [phone] Reason for Referral * Diagnostic Imaging (Routine) - Closed Specialty Diagnoses / Procedures Referred By Vianca montiel Referred To Contact Diagnoses Morbid obesity (HCC) Procedures US Abdomen Limited Thierno Blanc MD Phone: tel: fax: External Order Referral ID Status Reason Start Date Expiration Date Visits Re quested Visits Authorized [id number] Closed 04/23/2020 05/23/2021 1 1 * Consultation (Routine) - Closed Specialty Diagnoses / Procedures Referred By Vianca montiel Referred To Contact Sleep Medicine Diagnoses Morbid obesity (HCC) Thierno Blanc MD Phone: tel: fax: External Order Referral ID Status Reason Start Date Expiration Date V isits Requested Visits Authorized [id number] Closed Specialty Services Required 04/23/2020 05/23/2021 1 1 Question Answer Please select the performing region: External Order [171] # of visits: 1 Encounter Details Date Type Department Care Team (Late st Contact Info) Description 04/23/2020 Orders Only [facility] Surgery [address] [facility] Medical Office Building [address] [place] [address] Thierno Blanc MD [address] [phone] [place] [address] Morbid obesity (CMS/HCC) (Primary Dx) Social History Tobacco Use Types Packs/Day Years Used Date Smoking Tobacco: Never Comments No Sex and Gender Information Value Date Recorded Sex Assigned at Not on file Legal Sex Female 1:19 PM FLOATING LABOR GANG SUPERVISOR Gender Identity Not on file Sexual [...] 04/23/2020 documented in this encounter Care Teams Die Try Out Worker Relationship Specialty Start Date End Date Baldomero Dominguez MD PCP - General 01/07/17 Jaciel Melo MD Trolley Collector Cardiovascular Disease 04/12/19 2 documented as of this encounter
--- OUTSIDE RECORDS SUMMARY | 2024-07-11 12:30 | XMS_ITS | Encounter Summary ---
Author Organization [facility] Healthcare Address [address] [place] [address] Care Team Providers Care Dean Of Women Name Role Phone Baldomero Dominguez MD Primary Care Provider [phone] Jaciel Melo MD Unavailable [phone] Encounter Details Date Type Department Care Team (Latest Contact Info) Description 03/01/2020 8:30 AM CDT - 03/01/2020 9:00 AM CDT Surgery [facility] Endoscopy [address] [place] [address] Blanche Leo MD [address] [facility] [facility] [address] [place], [place] [id number] ESOPHAGOGASTRODUODENOSCOPY BIOPSY Surgery Details Date/Time Status Location OR Service Patient Class Case Class Case Type Trauma Case? 03/01/2020 8:30 AM Posted [facility] Endo 02 Minimally Invasive Surgery Outpatient [...] on file Legal Sex Female 1:19 PM FOOD INSPECTOR Gender Identity Not on file Sexual [...] a any questions or concerns, please give [facility] Weight Loss Surgery a call during the day at [phone], Option 2 or at [phone] at night or on the weekends. documented [...] Leo MD - 02/29/2020 8:36 AM CDT [facility] Minimally Invasive Surgery Endoscopy History & [...] The patient is a 54 y.o. female refrigeration lead to the endoscopy suite for an upper [...] Female Attending MD: Blanche Leo M.D. Room: [facility] ROOM 02 Note Status: Finalized Procedure: [...] by the physician, the nurse and the research and development technician in the endoscopy suite. Mental Status Examination: [...] and oxygen saturations were monitored continuously. The [id number] was introduced through the mouth, and advanced [...] the office has given you. Come to [facility] ER entrance. There is free tax services specialist parking at this entrance or there is [...] safety and the safety of others per [facility] guidelines you are allowed one [...] best viewed via link to PDF [facility] [place] [address] SURGICAL PATHOLOGY REPORT FINAL Patient Name: ?? ROWENA QUESADA Gender: ??F : ??[id number] (Age: 54) Address: ??[address] [place] [address] [place], [place] ??[address] Hospital #: ??[id number] Taken:03/01/2020 Received:03/01/2020 Reported: 03/04/2020 Patient Type: WC SDS Client ?[facility] Service: Surgery Location: [facility] Physician(s): ??MD Dr Baldomero Villeda Diagnosis: A. [...] interpretation for this case was performed at [facility], Department of Surgical Pathology, [address] [facility] [address], [id number], ??[place], [place] ??[address] ?? CLIA # [id number] Deloris Brady M.D., PhD History: The patient [...] Hospital as part of an ongoing quality systems manager program and in compliance with federally [...] by the Surgical Pathology Department of [facility]. ??It has not been cleared or approved by the U. S. Food and Drug Administration. IMAGES AND SCANNED DOCUMENTS, IF INCLUDED, ONLY VIEWABLE IN PDF VERSION OF REPORT us Blanche Leo MD LAB PATHOLOGY ORDERABLE S Final Result PATHOLOGY [facility] [phone] * POCT hCG, urine (03/01/2020 8:34 AM [...] Female Attending MD: Blanche Leo M.D. Room: [facility] ROOM 02 Note Status: Finalized Procedure: [...] verified by the physician,the nurse and the research and development technician in the endoscopy suite.Mental Status Examination: alert [...] and oxygen saturations were monitored continuously. The [id number] was introduced through the mouth, and advanced [...] 01/2020 documented in this encounter Care Teams Dean Of Women Relationship Specialty Start Date End Date Baldomero Dominguez MD PCP - General 01/07/17 Jaciel Melo MD Tool Engineer Cardiovascular Disease 04/12/19 2 documented as of this encounter
--- OUTSIDE RECORDS SUMMARY | 2024-07-11 12:30 | XMS_ITS | Encounter Summary ---
Author Organization [facility] Healthcare Address [address] [place] [address] Care Team Providers Care Lockstitch Front Maker Name Role Phone Baldomero Dominguez MD Primary Care Provider [phone] Encounter Details Date Type Department Care Team (Latest Contact Info) Description 05/30/2018 11:40 AM PSYCHIATRIC TECH Hospital Encounter [facility] OP Baldomero Dominguez MD [address] [place] [address] Encounter for screening mammogram for malignant neoplasm of breast Social History Tobacco Use Types Packs/Day Years Used Date Smoking Tobacco: Never Comments Unknown Sex and Gender Information Value Date Recorded Sex Assigned at Not on file Legal Sex Female 1:19 PM PSYCHIATRIC TECH Gender Identity Not on file Sexual Orientation Not on file documented as of this encounter Plan of Treatment Not on file documented as of this encounter Procedures Procedure Name Priority Date/Time Associated Diagnosis Comments SCREENING MAMMOGRAM BILATERAL W CARLOS Routine 05/30/2018 11:42 AM PSYCHIATRIC TECH GENERAL RADIOLOGY REPORT 05/30/2018 12:00 AM PSYCHIATRIC TECH documented in this encounter Results * Screening Mammogram Bilateral W Carlos (05/30/2018 11:42 AM PSYCHIATRIC TECH) Anatomical Region Laterality Modality Breast Bilateral Mammography 05/30/2018 11:4 2 AM PSYCHIATRIC TECH Impressions 05/30/2018 1:36 PM PSYCHIATRIC TECH BI-RAD 2 ??BENIGN There is no mammographic evidence of malignancy. A 1 year screening mammogram is recommended. ?? The patient has been or will be contacted. ?? The patient will be entered into a reminder system with a target due date of 1 year for her next screening exam. Electronically signed by: Hernán Townsend M.D., md/:05/30/2018 13:34:56 ?? Effervescent Salts Compounder: Lorie Erickson, [facility] letter sent: Normal Exam ?? Reading location: [facility] BI-RADS: 2 Benign [EOD] Narrative 05/30/2018 1:36 PM PSYCHIATRIC TECH - MG BILATERAL DIGITAL SCREENING MAMMOGRAM 3D/2D [...] dated: ??08/18/2013 mammogram/ultrasound and 08/11/2013 mammogram - [facility]. ?? BREAST TISSUE: The tissue of [...] exams dated: 08/18/2013mammogram/ultrasound and 08/11/2013 mammogram - [facility]. BREAST TISSUE: The tissue of [...] signed by: Hernán Townsend M.D., md/:05/30/2018 13:34:56 Effervescent Salts Compounder: Lorie Erickson, [facility] letter sent: Normal Exam Reading location: [facility] BI-RADS: 2 Benign [EOD] Baldomero ESPARZA MAMMO PROCEDURES Final Resul t * GENERAL RADIOLOGY REPORT (05/30/2018 12:00 AM PSYCHIATRIC TECH) Anatomical Region Laterality Modality Radiographic Phuong ging Narrative 05/30/2018 12:00 AM PSYCHIATRIC TECH Ordered by an unspecified provider. Historical Provider MD ESPARZA XR PROCEDURES Final R esult documented in this encounter Visit Diagnoses Diagnosis Encounter for screening mammogram for malignant neoplasm of breast documented in this encounter Care Teams Lockstitch Front Maker Relationship Specialty Start Date End Date Baldomero Dominguez MD PCP - General 01/07/17 documented as of this encounter
--- OUTSIDE RECORDS SUMMARY | 2024-07-11 12:30 | XMS_ITS | Encounter Summary ---
Author Organization [facility] Healthcare Address [address] [facility] [place] [place] [address] Care Team Providers Care Cosmetic Sales Name Role Phone Baldomero Dominguez MD Primary Care Provider [phone] Jaciel Melo MD Unavailable Encounter Details Date Type Department Care Team (Late st Contact Info) Description 03/01/2020 8:39 AM CDT Anesthesia Event [facility] Endoscopy [address] [place] [address] Adelfo Guillen MD [address] [place] [address] Anesthesia Record Procedure Summary Procedure Name Responsible [...] file Legal Sex Female 1:19 PM SUPERVISOR REINFORCED STEEL PLACING Gender Identity Not on file Sexual Orientation Not on file documented as of this encounter OR Notes * Anesthesia Postprocedure Evaluation - Adelfo Guillen MD - 03/01/2020 9:17 AM CDT Patient: Rowena Quesada Procedure Summary Date: 03/01/20 Room / Location: [facility]OM / [facility] Anesthesia Start: 838 Anesthesia Stop: 857 [...] Medication protocol when under care of a COLORING ROOM MAN Planned anesthesia: General Informed Consent: Anesthesia plan [...] mg documented in this encounter Care Teams Cosmetic Sales Relationship Specialty Start Date End Date Baldomero Dominguez MD PCP - General 01/07/17 Jaciel Melo MD Saturator Operator Cardiovascular Disease 04/12/19 2 documented as of this encounter
--- OUTSIDE RECORDS SUMMARY | 2024-07-11 12:30 | XMS_ITS | Encounter Summary ---
Author Organization [facility] Address [address] [place] [address] Phone Care Team Providers Care Credentialing Specialist Name Role Phone Baldomero Dominguez MD Primary Care Provider [phone] Jaciel Melo MD Unavailable [phone] Encounter Details Date Type Department Care Team (Late st Contact Info) Description 01/24/2020 Telephone [facility] Physical Therapy [address] [place] [phone] Doe Williamson MS Social History Tobacco Use Types Packs/Day Years Used Date Smoking Tobacco: Never Comments Unknown Sex and Gender Information Value Date Recorded Sex Assigned at Not on file Legal Sex Female 1:19 PM WEAVER HAND Gender Identity Not on file Sexual [...] on filedocumented in this encounter Care Teams Credentialing Specialist Relationship Specialty Start Date End Date Baldomero Dominguez MD PCP - General 01/07/17 Jaciel Melo MD Plant And Equipment Worker Cardiovascular Disease 04/12/19 2 documented as of this encounter
--- OUTSIDE RECORDS SUMMARY | 2024-07-11 12:30 | XMS_ITS | Encounter Summary ---
Author Organization [facility] Address [address] [place] [address] Phone Care Team Providers Care Form Setter Steel Forms Name Role Phone Baldomero Dominguez MD Primary Care Provider [phone] Jaciel Melo MD Unavailable [phone] Encounter Details Date Type Department Care Team (Late st Contact Info) Description 05/03/[address] [facility] 8th [place] [address] [place] [address] Velvet Stevnes RN Social History Tobacco Use Types Packs/Day Years Used Date Smoking Tobacco: Never Comments No Sex and Gender Information Value Date Recorded Sex Assigned at Not on file Legal Sex Female 1:19 PM MOTOR SCOOTER MECHANIC Gender Identity Not on file Sexual Orientation Not on file documented as of this encounter Miscellaneous Notes * Telephone Encounter - Velvet Stevens RN - 05/03/2020 1:47 PM CDT Nurse spoke with Marika at [facility] at [phone]. Nurse faxed sleep study order as well as office notes documenting patient's STOP BANG score of 3 as well as patient's insurance requesting sleep study as indicated. Faxed to [phone]. documented in this encounter Plan of Treatment Not on file documented as of this encounter Visit Diagnoses Not on filedocumented in this encounter Care Teams Form Setter Steel Forms Relationship Specialty Start Date End Date Baldomero Dominguez MD PCP - General 01/07/17 Jaciel Melo MD Choral Teacher Cardiovascular Disease 04/12/19 2 documented as of this encounter
--- OUTSIDE RECORDS SUMMARY | 2024-07-11 12:30 | XMS_ITS | Encounter Summary ---
Author Organization [facility] Address [address] [facility] [address] [place] [address] Phone Care Team Providers Care Manager Wound Name Role Phone Baldomero Dominguez MD Primary Care Provider [phone] Jaciel Melo MD Unavailable [phone] Encounter Details Date Type Department Care Team (Late st Contact Info) Description 05/03/2020 Orders Only [facility] Surgery [address] [facility] Advanced Medicine 8th [place] [address] [place] [address] Berry Atkins, ASSIGNMENT MANAGER [address] [facility] [phone] [place] [address] Snoring (Primary Dx); Poor sleep Social History Tobacco Use Types Packs/Day Years Used Date Smoking Tobacco: Never Comments No Sex and Gender Information Value Date Recorded Sex Assigned at Not on file Legal Sex Female 1:19 PM AG SERVICE MANAGER Gender Identity Not on file Sexual Orientation Not on file documented as of this encounter Plan of Treatment Not on file documented as of this encounter Visit Diagnoses Diagnosis Snoring- Primary Other dyspnea and respiratory abnormality Poor sleep documented in this encounter Care Teams Manager Wound Relationship Specialty Start Date End Date Baldomero Dominguez MD PCP - General 01/07/17 Jaciel Melo MD Knowledge Engineer Cardiovascular Disease 04/12/19 2 documented as of this encounter
--- OUTSIDE RECORDS SUMMARY | 2024-07-11 12:30 | XMS_ITS | Encounter Summary ---
Author Organization [facility] Healthcare Address [address] [place] [address] Care Team Providers Care Life Sciences Instructor Name Role Phone Baldomero Dominguez MD Primary Care Provider [phone] Jaciel Melo MD Unavailable [phone] Encounter Details Date Type Department Care Team (Late st Contact Info) Description 05/11/2020 12:40 AM CDT Lab [address] [address] Preop testing Social History Tobacco Use Types Packs/Day Years Used Date Smoking Tobacco: Never Comments No Sex and Gender Information Value Date Recorded Sex Assigned at Not on file Legal Sex Female 1:19 PM GEOLOGY ASSOCIATE Gender Identity Not on file Sexual [...] Detected [facility] Comment: Interpretive Data Testing performed at [facility] Molecular Infectious Disease Laboratory. The [...] revised on 2019. First COVID-19 test? Unknown [facility] Employeed in healthcare? Unknown [facility] status? No [facility] Group care resident? Unknown [facility] Hospitalized? No [facility] Is patient in ICU? No [facility] Symptomatic as defined by CDC? No [facility] Nasopharyngeal 05/10/2020 4: 10 PM CDT 05/11/2020 5:55 AM CDT Narrative [facility] - 05/11/2020 9:38 PM CDT What is the reason for testing?->Screening prior to scheduled (>12 hr) surgery or procedure us Laith Smart MD LAB MICROBIOLOGY - GENERA L ORDERABLES Final Result [facility] Department [place] [address] documented in this encounter Visit Diagnoses Diagnosis Preop testing Unspecified pre-operative examination documented in this encounter Care Teams Life Sciences Instructor Relationship Specialty Start Date End Date Baldomero Dominguez MD PCP - General 01/07/17 Jaciel Melo MD Cemetery Manager Cardiovascular Disease 04/12/19 2 documented as of this encounter
--- OUTSIDE RECORDS SUMMARY | 2024-07-11 12:30 | XMS_ITS | Encounter Summary ---
Author Organization [facility] Healthcare Address [address] [place] [address] Care Team Providers Care Automatic Lathe Tender Name Role Phone Baldomero Dominguez MD Primary Care Provider Jaciel Melo MD Unavailable [phone] Encounter Details Date Type Department Care Team (Late st Contact Info) Description 02/25/2020 Orders Only [facility] HealthCare/ Physicians [address] [place], [place] [id number] Blanche Leo MD [address] [place], [place] [id number] Pre-op testing (Primary Dx) Social History Tobacco Use Types Packs/Day Years Used Date Smoking Tobacco: Never Comments Unknown Sex and Gender Information Value Date Recorded Sex Assigned at Not on file 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 Gender Identity Not on file Sexual Orientation Not on file documented as of this encounter Progress Notes * Jasbir Jessica MA - 02/25/2020 2:56 PM CDT Pre op covid testing at [facility] documented in this encounter Miscellaneous Notes * Addendum Note - Kamala Mcguire - 02/25/2020 2:56 PM CDTAddended by: KAMALA MCGUIRE on: 02/27/2020 05:27 PM Modules accepted: Orders documented in this encounter Plan of Treatment Not on file documented as of this encounter Results * COVID-19 Coronavirus RNA Nasopharyngeal (02/27/2020 11:03 AM CDT) COVID-19 RNA Not Detected [facility] Comment: Interpretive Data Testing performed at [facility] Molecular Infectious Disease Laboratory. The 2019-Novel [...] CDT 02/27/2020 8:40 PM CDT Narrative [facility] - 02/28/2020 2:43 AM CDT Is the patient experiencing any symptoms consistent with COVID (eg. Fever, cough, shortness of breath)?->No What is the reason for testing?->Screening prior to scheduled (>12 hr) surgery or procedure us Blanche Leo MD LAB MICROBIOLOGY - GENE RAL ORDERABLES Final Result [facility] One [facility] Department of Laboratories [place], [place] [id number] documented in this encounter Visit Diagnoses Diagnosis Pre-op testing- Primary Unspecified pre-operative examination Pre-op testing Unspecified pre-operative examination documented in this encounter Care Teams Automatic Lathe Tender Relationship Specialty Start Date End Date Baldomero Dominguez MD PCP - General 01/07/17 Jaciel Melo MD Collection Support Specialist Cardiovascular Disease 04/12/19 2 documented as of this encounter
--- OUTSIDE RECORDS SUMMARY | 2024-07-11 12:30 | XMS_ITS | Encounter Summary ---
Author Organization [facility] Address [address] [facility] [address] [place] [address] Care Team Providers Care Rental Management Trainee Name Role Phone Baldomero Dominguez MD Primary Care Provider [phone] Jaciel Melo MD Unavailable [phone] Encounter Details Date Type Department Care Team (Late st Contact Info) Description 05/09/[address] 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 Called/left voicemail. Patient directed to [place] for testing on 05/10. Directions were provided. documented in this encounter Miscellaneous Notes * Addendum Note - Teresa Crawford - 05/09/2020 2:04 PM CDTAddended by: TERESA CRAWFORD on: 05/11/2020 12:39 AM Modules accepted: Orders documented in this encounter Plan of Treatment Not on file documented as of this encounter Results * COVID-19 Coronavirus RNA Nasopharyngeal (05/10/2020 4:10 PM CDT) COVID-19 RNA Not Detected [facility] Comment: Interpretive Data Testing performed at [facility] Molecular Infectious Disease Laboratory. The 2018-Novel Coronavirus [...] revised on 2019. First COVID-19 test? Unknown [facility] Employeed in healthcare? Unknown [facility] status? No [facility] Group care resident? Unknown [facility] Hospitalized? No [facility] Is patient in ICU? No [facility] Symptomatic as defined by CDC? No [facility] Nasopharyngeal 05/10/2020 4: 10 PM CDT 05/11/2020 5:55 AM CDT Narrative [facility] - 05/11/2020 9:38 PM CDT What is the reason for testing?->Screening prior to scheduled (>12 hr) surgery or procedure us Laith Smart MD LAB MICROBIOLOGY - GENERA L ORDERABLES Final Result [facility] One [facility] [place] [address] documented in this encounter Visit Diagnoses Diagnosis Preop testing- Primary Unspecified pre-operative examination Preop testing Unspecified pre-operative examination documented in this encounter Care Teams Rental Management Trainee Relationship Specialty Start Date End Date Baldomero Dominguez MD PCP - General 01/07/17 Jaciel Melo MD Driver/Guide Cardiovascular Disease 04/12/19 2 documented as of this encounter
--- OUTSIDE RECORDS SUMMARY | 2024-07-11 12:30 | XMS_ITS | Encounter Summary ---
Author Organization [facility] Healthcare Address [address] [place] [address] Care Team Providers Care Imaging Administrator Name Role Phone Baldomero Dominguez MD Primary Care Provider [phone] Jaciel Melo MD Unavailable [phone] Encounter Details Date Type Department Care Team (Late st Contact Info) Description 05/14/2020 7:36 AM CDT - 05/14/2020 8:55 AM CDT Hospital Encounter [address] [address] Unknown, Michelle Moss, [address] [address] Discharge Disposition: Discharge to home or self care Social History Tobacco Use Types Packs/Day Years Used Date Smoking Tobacco: Never Comments No Sex and Gender Information Value Date Recorded Sex Assigned at Not on file 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 05/14/2020 8:25 AM CDT 05/14/2020 8:27 AM CDT Narrative Resulting Agency Comment ER Michelle MAURICE LAB MICROBIOLOGY - GENERAL OR DERABLES Final Result Performing Organization Address [facility] de Phone Number [address] [phone] * Hepatitis C antibody (05/14/2020 8:25 AM CDT) Hep C Ab NONREACT NONREACTIVE [facility] Comment: [employer] using JACKELYN (chemiluminescent immunoassay) technology. NONREACTIVE: Antibodies [...] OR DERABLES Final Result Performing Organization Address [facility] de Phone Number [address] [address], [place] [phone] * Hepatitis B Surface Antigen (05/14/2020 8:25 AM CDT) HepBsAg NONREACT NONREACTIVE [facility] Comment: [employer] using JACKELYN (chemiluminescent immunoassay) technology. NONREACTIVE: IgM antibodies to Hepatitis B Surface antigen not detected. REACTIVE: IgM antibodies to Hepatitis B Surface antigen detected. Reactive results will be confirmed by neutralization testing. 05/14/2020 8:25 AM CDT 05/14/2020 8:27 AM CDT Narrative Resulting Agency Comment ER Michelle MAURICE LAB MICROBIOLOGY - GENERAL OR DERABLES Final Result Performing Organization Address City/[facility]/ZIP Co de Phone Number [address] [phone] * ALT (05/14/2020 8:25 AM CDT) Pathologist [facility] ALT 19 0 - 33 U/L [facility] 05/14/2020 8:25 AM CDT 05/14/2020 8:27 AM CDT Narrative Resulting Agency Comment ER Michelle MAURICE LAB BLOOD ORDERABLES Final Re sult [address] [phone] documented in this encounter Visit Diagnoses Not on filedocumented in this encounter Care Teams Imaging Administrator Relationship Specialty Start Date End Date Baldomero Dominguez MD PCP - General 01/07/17 Jaciel Melo MD Manager Product Marketing Cardiovascular Disease 04/12/19 2 documented as of this encounter
--- OUTSIDE RECORDS SUMMARY | 2024-07-11 12:30 | XMS_ITS | Encounter Summary ---
Author Organization [facility] Address [address] [place] [address] Phone Care Team Providers Care Kayaking Instructor Name Role Phone Baldomero Dominguez MD Primary Care Provider [phone] Jaciel Melo MD Unavailable [phone] Michele León DPT Unavailable [phone] Reason for Visit * Reason Comments PT Initial Eval PT Discharge * Consultation (Routine) - Closed Specialty Diagnoses / Procedures Referred By Contac t Referred To Contact Physical Therapy Diagnoses Morbid obesity (HCC) Essential hypertension Osteoarthritis Berry Atkins, SHIVANI Phone: tel: fax: [facility] (All Locations) Referral ID Status Reason Start Date Expiration Date V isits Requested Visits Authorized [id number] Closed Specialty Services Required 01/04/2020 01/03/2021 24 24 Encounter Details Date Type Department Care Team (Late st Contact Info) Description 01/25/2020 9:00 AM CDT Therapy [facility] Physical Therapy [address] [facility] 1st Floor [address] [place] [address] Michele León DPT [address] [facility] [address] [place] [address] Morbid obesity (CMS/HCC) (Primary Dx); Essential hypertension; Osteoarthritis Social History Tobacco Use Types Packs/Day Years Used Date Smoking Tobacco: Never Comments Unknown Sex and Gender Information Value Date Recorded Sex Assigned at Not on file 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 female Berry Atkins NP [address] [place] [address] ICD-9-CM ICD-10-CM 1. Morbid obesity (CMS/HCC) 278.01 [...] musculoskeletal complications following bariatric surgery (2 months). Group Home Goals: 1) Pt will maintain an exercise [...] 1 documented in this encounter Care Teams Kayaking Instructor Relationship Specialty Start Date End Date Baldomero Dominguez MD PCP - General 01/07/17 Jaciel Melo MD Linen Aide Cardiovascular Disease 04/12/19 2 Michele León DPT [id number] [place] [address] Physical Therapist Physical Therapy 01/25/20 01/25/20 documented as of this encounter
--- OUTSIDE RECORDS SUMMARY | 2024-07-11 12:30 | XMS_ITS | Encounter Summary ---
Author Organization [facility] Address [address] [place] [address] Phone Care Team Providers Care Supervisor Nuclear Medicine Name Role Phone Baldomero Dominguez MD Primary Care Provider [phone] Jaciel Melo MD Unavailable [phone] Reason for Referral * Consultation (Routine) - Closed Specialty Diagnoses / Procedures Referred By Vianca montiel Referred To Contact Diabetes and Nutrition Services Diagnoses Morbid obesity (HCC) Essential hypertension Osteoarthritis Berry Atkins NP Phone: tel: fax: [facility] [address] [place] [address] Referral ID Status Reason Start Date Expiration Date V isits Requested Visits Authorized [id number] Closed Specialty Services Required 01/04/2020 07/15/2021 10 10 Question Answer [id number] Initial / Annual Follow-up MNT Please select the performing region: [facility] [150] # of visits: 10 * Consultation (Routine) - Closed Specialty Diagnoses / Procedures Referred By Vianca montiel Referred To Contact Physical Therapy Diagnoses Morbid obesity (HCC) Essential hypertension Osteoarthritis Berry Atkins NP Phone: tel: fax: [facility] (All Locations) Referral ID Status Reason Start Date Expiration Date V isits Requested Visits Authorized [id number] Closed Specialty Services Required 01/04/2020 01/03/2021 24 24 Question Answer PTRFR PT Evaluate and Treat Therapy options discussed with patient? Yes Location provided for therapy services is: Patient requested/Patient preferred Please select the performing region: [facility] (All Locations) [167] # of visits: 24 Encounter Details Date Type Department Care Team (Late st Contact Info) Description 01/04/2020 9:30 AM CDT Telemedicine [facility] Surgery [address] 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 During the visit, I was located at home and the patient was located at home in the state of [place]. The patient visit started at 1047 and [...] through the use of Atkins diet and [employer] diet. At most the patient has lost [...] Minimally Invasive Surgery Department of Surgery p: [phone] Cosigned by Thierno Blanc MD at 01/04/2020 [...] TO ACCOUNT ?[id number] ?[place] [address] 01/17/2020 9:41 AM CDT 01/17/2020 6:08 PM CDT Narrative [facility] - 01/18/2020 4:27 PM CDT FASTING:NO PATIENT REFUSED SOME TESTING; PATIENT ENCOURAGED TO RETURN. FASTING: NO Berry Atkins NP LAB BLOOD ORDERABLES Final Result Performing Organization Address [facility] de Phone Number [facility] * H. pylori breath test (01/17/2020 9:41 AM CDT) H. pylori, breath test NOT DETECTED NOT DETECTED [facility] Comment: Antimicrobials, proton pump inhibitors, and bismuth [...] STOOLS ORDERABLES Final Result Performing Organization Address [facility] Co de Phone Number [facility] [address] [place] [address] * Ferritin (01/17/2020 9:41 AM CDT) Ferritin 39 16 - 232 ng/mL [facility] Blood specimen (specimen) 01/17/2020 9:41 AM CDT 01/17/2020 6:08 PM CDT Narrative [facility] - 01/18/2020 4:27 PM CDT FASTING:NO PATIENT REFUSED SOME TESTING; PATIENT ENCOURAGED TO RETURN. FASTING: NO Berry Atkins NP LAB BLOOD ORDERABLES Final Result [facility] [address] [place] [address] * (ABNORMAL) Iron profile w/ IBC (01/17/2020 9:41 AM CDT) Iron 50 45 - 160 mcg/dL [facility] TIBC 327 250 - 450 mcg/dL (calc) [facility] Iron saturation 15(L) 16 - 45 % (calc) [facility] Blood specimen (specimen) 01/17/2020 9:41 AM CDT 01/17/2020 6:08 PM CDT Narrative [facility] - 01/18/2020 4:27 PM CDT FASTING:NO PATIENT REFUSED SOME TESTING; PATIENT ENCOURAGED TO RETURN. FASTING: NO Berry Atkins NP LAB BLOOD ORDERABLES Final Result [facility] [address] [place] [address] * Vitamin B12 (01/17/2020 9:41 AM CDT) Vitamin B12 297 200 - 1,100 pg/mL [facility] Comment: Please Note: Although the reference [...] BLOOD ORDERABLES Final Result Performing Organization Address [facility]/ZIP Co de Phone Number [facility] [address] [place] [address] * PTH (01/17/2020 9:41 AM CDT) Parathyroid hormone, intact 49 14 - 64 pg/mL [facility] Comment: Interpretive Guide ?Intact PTH ? [...] BLOOD ORDERABLES Final Result Performing Organization Address [facility]/ZIP Co de Phone Number [facility] [address] [address] * (ABNORMAL) Lipid panel (01/17/2020 9:41 AM CDT) Cholesterol 205(H) <200 mg/dL [facility] HDL 51 > OR = 50 mg/dL [facility] Triglycerides 95 <150 mg/dL [facility] LDL 134(H) mg/dL (calc) [facility] Comment: Reference range: <100 Desirable range <100 mg/dL for primary prevention; ?? <70 mg/dL for patients with CHD or diabetic patients with > or = 2 CHD risk factors. LDL-C is now calculated using the Latanya calculation, which is a validated novel method providing better accuracy than the Friedewald equation in the estimation of LDL-C. Walter SARKAR et al. TEJINDER. 2013;310(19): 3740-2104 (http://education.LemonStand./faq/LWE906) Chol/HDL ratio 4.0 <5.0 (calc) [facility] Non-HDL, (LDL+VLDL) 154(H) <130 mg/dL (calc) [facility] Comment: For patients with diabetes plus 1 major ASCVD risk factor, treating to a non-HDL-C goal of <100 mg/dL (LDL-C of <70 mg/dL) is considered a therapeutic option. Blood specimen (specimen) 01/17/2020 9:41 AM CDT 01/17/2020 6:08 PM CDT Narrative [facility] - 01/18/2020 4:27 PM CDT FASTING:NO PATIENT REFUSED SOME TESTING; PATIENT ENCOURAGED TO RETURN. FASTING: NO us Berry Atkins BLOOD BANK LABORATORY TECHNOLOGIST LAB BLOOD ORDERABLES Final Result [facility] [address] [place] [address] * TSH (01/17/2020 9:41 AM CDT) TSH 1.29 mIU/L [facility] Comment: ?Reference Range ?> or = 20 Years ??0.40-4.50 ? Ranges ?First trimester ?0.26-2.66 ?Second trimester ?? 0.55-2.73 ?Third trimester ?0.43-2.91 Blood specimen (specimen) 01/17/2020 9:41 AM CDT 01/17/2020 6:08 PM CDT Narrative [facility] - 01/18/2020 4:27 PM CDT FASTING:NO PATIENT REFUSED SOME TESTING; PATIENT ENCOURAGED TO RETURN. FASTING: NO Berry Atkins BLOOD BANK LABORATORY TECHNOLOGIST LAB BLOOD ORDERABLES Final Result [facility] [address] [place] [address] * (ABNORMAL) Hemoglobin A1c (01/17/2020 9:41 AM [...] ENCOURAGED TO RETURN. FASTING: NO Berry Atkins BLOOD BANK LABORATORY TECHNOLOGIST LAB BLOOD ORDERABLES Final Result [facility] [address] [address] * Comprehensive metabolic panel (01/17/2020 9:41 AM CDT) Glucose 114 65 - 139 mg/dL [facility] Comment: ? Non-fasting reference interval BUN 16 7 - 25 mg/dL [facility] Creatinine 0.64 0.50 - 1.05 mg/dL [facility] Comment: For patients >49 years of age, the reference limit for Creatinine is approximately 13% higher for people identified as -Bulgarian. eGFR NON-AFR. CITIZEN OF [place] 103 > OR = 60 mL/min/1 .73m2 [facility] EGFR 119 > OR = 60 mL/min/1 .73m2 [facility] BUN/creat ratio NOT APPLICABLE 6 - 22 (calc) [facility] Sodium 136 135 - 146 mmol/L [facility] Potassium, pl 4.1 3.5 - 5.3 mmol/L [facility] Chloride 103 98 - 110 mmol/L [facility] CO2 29 20 - 32 mmol/L [facility] Calcium 9.2 8.6 - 10.4 mg/dL [facility] Protein, sr 6.6 6.1 - 8.1 g/dL [facility] Albumin 3.7 3.6 - 5.1 g/dL [facility] GLOBULIN 2.9 1.9 - 3.7 g/dL (calc) [facility] Alb/glob ratio 1.3 1.0 - 2.5 (calc) [facility] Bilirubin, total 0.3 0.2 - 1.2 mg/dL [facility] Alk phos 66 37 - 153 U/L [facility] AST 15 10 - 35 U/L [facility] ALT (SGPT) 19 6 - 29 U/L [facility] Blood specimen (specimen) 01/17/2020 9:41 AM CDT 01/17/2020 6:08 PM CDT Narrative [facility] - 01/18/2020 4:27 PM CDT FASTING:NO PATIENT REFUSED SOME TESTING; PATIENT ENCOURAGED TO RETURN. FASTING: NO Berry Atkins NP LAB BLOOD ORDERABLES Final Result [facility] [address] [place] [address] * CBC with auto differential (01/17/2020 9:41 AM CDT) WBC 9.4 3.8 - 10.8 Thousand/u L [facility] RBC, POC 4.69 3.80 - 5.10 Million/uL [facility] Hgb 14.1 11.7 - 15.5 g/dL [facility] Hct 43.1 35.0 - 45.0 % [facility] MCV 91.9 80.0 - 100.0 fL [facility] MCH 30.1 27.0 - 33.0 pg [facility] MCHC 32.7 32.0 - 36.0 g/dL [facility] Rdw 13.1 11.0 - 15.0 % [facility] Platelets 367 140 - 400 Thousand/u L [facility] MPV 10.1 7.5 - 12.5 fL [facility] Neutrophils, abs 6,439 1,500 - 7,800 cells/uL [facility] Lymphocytes, abs 2,049 850 - 3,900 cells/uL [facility] Monocyte abs 667 200 - 950 cells/uL [facility] Eosinophils, abs 197 15 - 500 cells/uL [facility] Basophils, abs 47 0 - 200 cells/uL [facility] Neutrophils 68.5 % [facility] Lymphocyte pct 21.8 % [facility] Monocytes 7.1 % [facility] Eosinophils 2.1 % [facility] Basophils 0.5 % [facility] Blood specimen (specimen) 01/17/2020 9:41 AM CDT 01/17/2020 6:08 PM CDT Narrative [facility] - 01/18/2020 4:27 PM CDT FASTING:NO PATIENT REFUSED SOME TESTING; PATIENT ENCOURAGED TO RETURN. FASTING: NO Berry Atkins BLOOD BANK LABORATORY TECHNOLOGIST LAB BLOOD ORDERABLES Final Result [facility] [address] [place] [address] documented in this encounter Visit Diagnoses Diagnosis [...] as of this encounter Care Teams Supervisor Nuclear Medicine Relationship Specialty Start Date End Date Baldomero Dominguez MD PCP - General 01/07/17 Jaciel Melo MD Health And Fitness Professor Cardiovascular Disease 04/12/19 2 documented as of this encounter
--- OUTSIDE RECORDS SUMMARY | 2024-07-11 12:30 | XMS_ITS | Encounter Summary ---
Author Organization [facility] Address [address] [facility] [address] [place] [address] Phone Care Team Providers Care Adapted Physical Education Aide Name Role Phone Baldomero Dominguez MD Primary Care Provider [phone] Jaciel Melo MD Unavailable [phone] Encounter Details Date Type Department Care Team (Late st Contact Info) Description 04/22/2020 4:30 PM CDT Telemedicine [facility] Surgery [address] [place] [address] Medical Office Building [address] [place] [address] Thierno Blanc MD [address] [facility] [id number] [place] [address] Morbid obesity (CMS/HCC) (Primary Dx); Essential hypertension; Pure hypercholesterolemia; Osteoarthritis Social History Tobacco Use Types Packs/Day Years Used Date Smoking Tobacco: Never Comments No Sex and Gender Information Value Date Recorded Sex Assigned at Not on file 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 This was a telemedicine visit with Rowena Quesada alone which took place via Real-time video connection ([employer], [employer] or similar).During the visit, I was located in the office and the patient was located in [place] in the [facility]. My visit with the patient started at [...] replaces an office visit. Thierno Blanc MD [facility] Metabolic & Weight Loss Surgery Pre-Operative Bariatric [...] 5 years. This was initially diagnosed by public safety telecommunicator based on blood work in the setting [...] I have reviewed the evaluations from our energy conservation director, psychologist and physical therapist and they have [...] ask her to forward records from her public safety telecommunicator regarding the basis of her diagnosis of Crohn's disease and most recent examinations. We discussed the specific risks and benefits of the procedure and the patient understands and wishes to proceed. We will set her up for the surgery after obtaining appropriate insurance precertification. Thierno Blanc MD heading saw operator Minimally Invasive Surgery Department of Surgery p: [phone] documented in this encounter Plan of Treatment Not on file documented as of this encounter Visit Diagnoses Diagnosis Morbid obesity (HCC)- Primary Morbid obesity Essential hypertension Unspecified essential hypertension Pure hypercholesterolemia Osteoarthritis Osteoarthrosis, unspecified whether generalized or localized, unspecified site documented in this encounter Care Teams Adapted Physical Education Aide Relationship Specialty Start Date End Date Baldomero Dominguez MD PCP - General 01/07/17 Jaciel Melo MD Parts Salesperson Cardiovascular Disease 04/12/19 2 documented as of this encounter
--- OUTSIDE RECORDS SUMMARY | 2024-07-11 12:31 | XMS_ITS | Encounter Summary ---
Author Organization [facility] Healthcare Address [address] [place] [address] Care Team Providers Care Talent Acquisition Program Manager Name Role Phone Unavailable Primary Care Provider Unavailabl e Encounter Details Date Type Department Care Team (Latest Contact Info) Description 06/23/2016 7:22 AM NURSING HOME ADMISSIONS DIRECTOR - 06/24/2016 7:22 AM NURSING HOME ADMISSIONS DIRECTOR Hospital Encounter [facility] Baldomero Hong MD [address] [place] [address] Other specified anemias; Other fatigue Social History Tobacco Use Types Packs/Day Years Used Date Smoking Tobacco: Never Comments Unknown Sex and Gender Information Value Date Recorded Sex Assigned at Not on file Legal Sex Female 1:19 PM NURSING HOME ADMISSIONS DIRECTOR Gender Identity Not on file Sexual Orientation Not on file documented as of this encounter Plan of Treatment Not on file documented as of this encounter Procedures Procedure Name Priority Date/Time Associated Diagnosis Comments THYROID PANEL Routine 06/23/2016 7:38 AM NURSING HOME ADMISSIONS DIRECTOR COMPREHENSIVE METABOLIC PANEL Routine 06/23/2016 7:38 AM NURSING HOME ADMISSIONS DIRECTOR URINALYSIS Routine 06/23/2016 7:25 AM NURSING HOME ADMISSIONS DIRECTOR documented in this encounter Results * Thyroid Panel (06/23/2016 7:38 AM NURSING HOME ADMISSIONS DIRECTOR) TSH 1.83 0.27 - 4.20 uIU/mL Free T4 1.01 0.93 - 1.70 ng/dL 06/23/2016 7:38 AM NURSING HOME ADMISSIONS DIRECTOR 06/23/2016 7:51 AM [facility] us Baldomero Dominguez MD LAB BLOOD ORDERABLES Final Resul t [facility] HISTORICAL RESULTS * (ABNORMAL) Comprehensive metabolic panel (06/23/2016 7:38 AM [facility]) Pathologist [facility] Sodium 141 135 - 145 mmol/L Potassium [...] 8.6 - 10.0 mg/dL 06/23/2016 8:28 AM [employer] HISTORICAL RESULTS Total Protein 7.3 6.4 - 8.3 g/dL 06/23/2016 8:28 AM [employer] [facility] [employer] HISTORICAL RESULTS Albumin 3.7 3.5 - 5.2 g/dL 06/23/2016 8:28 AM NURSING HOME ADMISSIONS DIRECTOR [facility] [employer] HISTORICAL RESULTS Globulin 3.6(H) 2.3 - 3.5 gm/dL 06/23/2016 8:28 AM NURSING HOME ADMISSIONS DIRECTOR [facility] [employer] HISTORICAL RESULTS Albumin/Globulin Ratio 1.0(L) 1.1 - 1.8 06/23/2016 8:28 AM NURSING HOME ADMISSIONS DIRECTOR [facility] [employer] HISTORICAL RESULTS Total Bilirubin 0.2 0.0 - 1.2 mg/dL 06/23/2016 8:28 AM [facility] HISTORICAL RESULTS AST 13 0 - 32 U/L 06/23/2016 8:28 AM [facility] HISTORICAL RESULTS ALT 14 0 - 33 U/L 06/23/2016 8:28 AM [employer] [facility] [employer] HISTORICAL RESULTS Alkaline Phosphatase 65 35 - 104 U/L 06/23/2016 8:28 AM [employer] [facility] [employer] HISTORICAL RESULTS 06/23/2016 7:38 AM NURSING HOME ADMISSIONS DIRECTOR 06/23/2016 7:51 AM NURSING HOME ADMISSIONS DIRECTOR us Baldomero Dominguez MD LAB BLOOD ORDERABLES Final Resul t Performing Organization Address City/[facility]/ZIP Co de Phone Number [facility] Social DJ [facility] HISTORICAL RESULTS * Urinalysis (06/23/2016 7:25 AM NURSING HOME ADMISSIONS DIRECTOR) Ur Collection Type CLEAN CATCH 06/23/2016 8:23 AM [facility] [employer] HISTORICAL RESULTS Urine Color YELLOW YELLOW 06/23/2016 8:23 AM [facility] [employer] HISTORICAL RESULTS Urine Clarity CLEAR CLEAR 06/23/2016 8:23 AM NURSING HOME ADMISSIONS DIRECTOR [facility] [employer] HISTORICAL RESULTS Urine Glucose (UA) NORMAL NORMAL mg/dL 06/23/2016 8:23 AM [facility] [employer] HISTORICAL RESULTS Urine Bilirubin NEGATIVE NEGATIVE mg/dl 06/23/2016 8:23 AM [facility] [employer] HISTORICAL RESULTS Urine Ketones NEGATIVE NEGATIVE mg/dL 06/23/2016 8:23 AM [facility] [employer] HISTORICAL RESULTS Ur Specific Armstrong 1.024 1.005 - 1.025 06/23/2016 8:23 AM NURSING HOME ADMISSIONS DIRECTOR [facility] [employer] HISTORICAL RESULTS Urine Blood NEGATIVE NEGATIVE mg/dl 06/23/2016 8:23 AM [facility] [employer] HISTORICAL RESULTS Urine pH 6.0 5.0 - 8.0 06/23/2016 8:23 AM [facility] [employer] HISTORICAL RESULTS Urine Protein NEGATIVE NEGATIVE mg/dL 06/23/2016 8:23 AM [facility] [employer] HISTORICAL RESULTS Urine Urobilinogen NORMAL NORMAL mg/dL 06/23/2016 8:23 AM [facility] Social [facility] HISTORICAL RESULTS Urine Nitrite NEGATIVE NEGATIVE 06/23/2016 8:23 AM [facility] [employer] HISTORICAL RESULTS Ur Leukocyte Esterase NEGATIVE NEGATIVE Montez/ul 06/23/2016 8:23 AM [facility] [employer] HISTORICAL RESULTS Ur Microscopic Review Not Indicated 06/23/2016 8:23 AM [facility] [employer] HISTORICAL RESULTS 06/23/2016 7:25 AM NURSING HOME ADMISSIONS DIRECTOR 06/23/2016 8:14 AM NURSING HOME ADMISSIONS DIRECTOR Narrative [facility] [employer] HISTORICAL RESULTS - 06/23/2016 8:23 AM NURSING HOME ADMISSIONS DIRECTOR us Baldomero Dominguez MD LAB URINE ORDERABLES Final Resul t Performing Organization Address City/[facility]/ZIP Co de Phone Number [facility] Social DJ [facility] HISTORICAL RESULTS documented in this encounter Visit Diagnoses Diagnosis Other specified anemias Other fatigue documented in this encounter
--- OUTSIDE RECORDS SUMMARY | 2024-07-11 12:31 | XMS_ITS | Encounter Summary ---
Author Organization [facility] Healthcare Address [address] [place] [address] Care Team Providers Care Bulk Receiver Name Role Phone Unavailable Primary Care Provider Unavailabl e Encounter Details Date Type Department Care Team (Latest Contact Info) Description 10/22/2014 9:32 AM CDT - 10/22/2014 2:54 PM CDT Hospital Encounter [facility] Akbar Matt MD [address] [facility] [place] [address] Calculus of gallbladder; Umbilical hernia Social History Tobacco Use Types Packs/Day Years Used Date Smoking Tobacco: Never Assessed Comments Unknown Sex and Gender Information Value Date Recorded Sex Assigned at Not on file Legal Sex Female 1:19 PM CURING FINISHER Gender Identity Not on file Sexual [...] kirsty LAB BLOOD ORDERABLES Ingris l Result [facility] HISTORICAL RESULTS * (ABNORMAL) Comprehensive metabolic panel (10/22/2014 12:27 PM CDT) Sodium 138 135 - 145 mmol/L Potassium 4.3 3.3 - 5.1 mmol/L Chloride 102 96 - 108 mmol/L Carbon Dioxide 23 22 - 32 mmol/L Anion Gap 13 7 - 16 Glucose 84 70 - 100 mg/dL 10/22/2014 1:04 PM [facility] HISTORICAL RESULTS Comment:As of June 27 14 new normal range in use. BUN 12 6 - 20 mg/dL 10/22/2014 1:04 PM [facility] HISTORICAL RESULTS Creatinine 0.5 0.5 - 1.1 mg/dL 10/22/2014 1:04 PM [facility] HISTORICAL RESULTS Kidney Disease Stage > 90 mL/MIN 10/22/2014 1:04 PM [facility] HISTORICAL RESULTS Comment: NOTE; ??The GFR is [...] @ Calcium 8.4(L) 8.6 - 10.0 mg/dL 10/22/2014 1:04 PM [facility] HISTORICAL RESULTS Total Protein 7.0 6.4 - 8.3 g/dL 10/22/2014 1:04 PM [facility] HISTORICAL RESULTS Albumin 3.5 3.5 - 5.2 g/dL 10/22/2014 1:04 PM [facility] HISTORICAL RESULTS Globulin 3.5 2.3 - 3.5 gm/dL 10/22/2014 1:04 PM [facility] HISTORICAL RESULTS Albumin/Globulin Ratio 1.0(L) 1.1 - 1.8 Total Bilirubin 0.4 0.0 - 1.2 mg/dL 10/22/2014 1:04 PM [facility] HISTORICAL RESULTS AST 14 0 - 32 U/L 10/22/2014 1:04 PM [facility] HISTORICAL RESULTS ALT 13 0 - 33 U/L 10/22/2014 1:04 PM [facility] HISTORICAL RESULTS Alkaline Phosphatase 52 35 - 104 U/L 10/22/2014 1:04 PM [facility] HISTORICAL RESULTS 10/22/2014 12:2 7 PM CDT 10/22/2014 12:34 PM CDT us Malachi Santos LAB BLOOD ORDERABLES Ingris galvez Result [facility] HISTORICAL RESULTS * UA with Culture Reflex (10/22/2014 10:45 AM CDT) Ur Collection Type CLEAN CATCH 10/22/2014 11:00 AM [facility] HISTORICAL RESULTS Ur Culture Indicated? C&S NOT INDICATED 10/22/2014 11:00 AM [facility] HISTORICAL RESULTS Urine Color STRAW YELLOW 10/22/2014 11:00 AM [facility] HISTORICAL RESULTS Urine Clarity CLEAR CLEAR 10/22/2014 11:00 AM [facility] HISTORICAL RESULTS Urine Glucose (UA) NORMAL NORMAL mg/dL 10/22/2014 11:00 AM [facility] HISTORICAL RESULTS Urine Bilirubin NEGATIVE NEGATIVE mg/dl 10/22/2014 11:00 AM [facility] HISTORICAL RESULTS Urine Ketones NEGATIVE NEGATIVE mg/dL 10/22/2014 11:00 AM [facility] HISTORICAL RESULTS Ur Specific [place] 1.019 1.005 - 1.025 10/22/2014 11:00 AM [facility] HISTORICAL RESULTS Urine Blood NEGATIVE NEGATIVE mg/dl 10/22/2014 11:00 AM [facility] HISTORICAL RESULTS Urine pH 6.0 5.0 - 8.0 10/22/2014 11:00 AM [facility] HISTORICAL RESULTS Urine Protein NEGATIVE NEGATIVE mg/dL Urine Urobilinogen NORMAL NORMAL mg/dL Urine Nitrite NEGATIVE NEGATIVE Ur Leukocyte Esterase NEGATIVE NEGATIVE Montez/ul Ur Microscopic Review Not Indicated 10/22/2014 10:4 5 AM CDT 10/22/2014 10:51 AM CDT Narrative [facility] HISTORICAL RESULTS - 10/22/2014 11:00 AM CDT Collected By gl Malachi Santos LAB URINE ORDERABLES Ingris galvez Result [facility] HISTORICAL RESULTS * (ABNORMAL) CBC with auto differential (10/22/2014 10:14 AM CDT) WBC 13.5(H) 4.6 - 10.2 x10 3/ul RBC 4.63 3.76 - 4.80 x10 6/ul 10/22/2014 10:21 AM [facility] HISTORICAL RESULTS Hemoglobin 10.9(L) 11.0 - 15.0 g/dl 10/22/2014 10:21 AM [facility] HISTORICAL RESULTS Hct 34.1 33.0 - 43.0 % MCV 73.7(L) 80.0 - 97.0 fl MCH 23.5(L) 27.0 - 31.2 pg 10/22/2014 10:21 AM [facility] HISTORICAL RESULTS MCHC 32.0 31.8 - 35.4 g/dl 10/22/2014 10:21 AM [facility] HISTORICAL RESULTS RDW 18.5(H) 11.6 - 14.8 % Plt Count 383 124 - 400 x10 3/ul 10/22/2014 10:21 AM [facility] HISTORICAL RESULTS MPV 9.5 7.4 - 10.4 fl 10/22/2014 10:21 AM [facility] HISTORICAL RESULTS Differential Method AUTOMATED DIFF --------- -- 10/22/2014 10:21 AM [facility] HISTORICAL RESULTS Neut % 83.7 37.0 - 85.0 % 10/22/2014 10:21 AM [facility] HISTORICAL RESULTS Immature Gran % 0.3 0.0 - 3.0 % 10/22/2014 10:21 AM [facility] HISTORICAL RESULTS Lymph % 9.1 5.0 - 45.0 % 10/22/2014 10:21 AM [facility] HISTORICAL RESULTS [place] % 5.2 3.0 - 15.0 % 10/22/2014 10:21 AM [facility] HISTORICAL RESULTS Eos % 1.4 0.0 - 7.0 % 10/22/2014 10:21 AM [facility] HISTORICAL RESULTS Baso % 0.3 0.0 - 2.0 % 10/22/2014 10:21 AM [facility] HISTORICAL RESULTS ABSOLUTE COUNTS ABSOLUTE COUNTS --------- -- 10/22/2014 10:21 AM [facility] HISTORICAL RESULTS Absolute Neuts (auto) 11.3(H) 1.7 - 8.7 x10 3/ul 10/22/2014 10:21 AM [facility] HISTORICAL RESULTS Immature Gran # 0.0 0.0 - 0.3 x10 3/ul 10/22/2014 10:21 AM [facility] HISTORICAL RESULTS Absolute Lymphs (auto) 1.2 0.2 - 4.6 x10 3/ul 10/22/2014 10:21 AM [facility] HISTORICAL RESULTS Absolute Monos (auto) 0.7 0.1 - 1.5 x10 3/ul 10/22/2014 10:21 AM [facility] HISTORICAL RESULTS Absolute Eos (auto) 0.2 0.0 - 0.7 x10 3/ul 10/22/2014 10:21 AM [facility] HISTORICAL RESULTS Absolute Basos (auto) 0.0 0.0 - 0.2 x10 3/ul 10/22/2014 10:1 4 AM CDT 10/22/2014 10:17 AM CDT Narrative [facility] HISTORICAL RESULTS - 10/22/2014 10:21 AM CDT Line Draw by RN ?? Line draw performed by:ANGELINE RN ?? us Malachi Santos LAB BLOOD ORDERABLES Ingris l Result [facility] HISTORICAL RESULTS * CT Abdomen Pelvis W [...] Townsend M.D. MD: 02:07 PM 02:07 PM [facility] [EOD] Narrative 10/22/2014 2:11 PM CDT EXAMINATION: [...] Townsend M.D. MD: 02:07 PM 02:07 PM [facility] [EOD] Malachi Santos [facility] [place] PROCEDURES Final R esult documented in this encounter Visit Diagnoses Diagnosis Calculus of gallbladder Calculus of gallbladder without mention of cholecystitis or obstruction Umbilical hernia Umbilical hernia without mention of obstruction or gangrene documented in this encounter
--- OUTSIDE RECORDS SUMMARY | 2024-07-11 12:31 | XMS_ITS | Encounter Summary ---
Author Organization [facility] Healthcare Address [address] [place] [address] Care Team Providers Care Marine Equipment Engineer Name Role Phone Unavailable Primary Care Provider Unavailabl e Encounter Details Date Type Department Care Team (Latest Contact Info) Description 08/07/2014 9:58 AM PLATE CONDITIONER - 08/07/2014 2:00 PM PLATE CONDITIONER Hospital Encounter [facility] Alvarez Rodriguez, DO [address] [facility] [place] [address] Paroxysmal supraventricular tachycardia (HCC) Social History Tobacco Use Types Packs/Day Years Used Date Smoking Tobacco: Never Assessed Comments Unknown Sex and Gender Information Value Date Recorded Sex Assigned at Not on file Legal Sex Female 1:19 PM PLATE CONDITIONER Gender Identity Not on file Sexual Orientation Not on file documented as of this encounter Last Filed Vital Signs Vital Sign Reading Time Taken Comments Blood Pressure 124/78 08/07/2014 10:04 AM PLATE CONDITIONER Pulse 170 08/07/2014 10:04 AM PLATE CONDITIONER Temperature 36.8 ??C (98.2 ??F) 08/07/2014 10:[address] Respiratory Rate - - Oxygen Saturation 98% 08/07/2014 10:04 AM PLATE CONDITIONER Inhaled Oxygen Concentration - - Weight 120.2 kg (265 lb) 08/07/2014 10:04 AM PLATE CONDITIONER Height 167.6 cm (5' 6 ) 08/07/2014 10:04 AM PLATE CONDITIONER Body Mass Index 42.77 08/07/2014 10:04 AM PLATE CONDITIONER documented in this encounter Plan of Treatment Not on file documented as of this encounter Procedures Procedure Name Priority Date/Time Associated Diagnosis Comments URINALYSIS AND REFLEX TO MICROSCOPIC AND CULTURE Routine 08/07/2014 1:50 PM PLATE CONDITIONER TNI WITH LIPID PANEL Routine 08/07/2014 10:30 AM PLATE CONDITIONER THYROID FUNCTION CASCADE Routine 08/07/2014 10:30 AM PLATE CONDITIONER CBC WITH AUTO DIFFERENTIAL Routine 08/07/2014 10:30 AM PLATE CONDITIONER COMPREHENSIVE METABOLIC PANEL Routine 08/07/2014 10:30 AM PLATE CONDITIONER XR CHEST PA LATERAL 2 VIEWS Routine 08/07/2014 12:00 AM PLATE CONDITIONER documented in this encounter Results * (ABNORMAL) Urinalysis reflex to microscopic and culture (08/07/2014 1:50 PM PLATE CONDITIONER) Ur Collection Type CLEAN CATCH 08/07/2014 2:[address] [facility] [employer] HISTORICAL RESULTS Ur Culture Indicated? C&S NOT INDICATED 08/07/2014 2:[address] [facility] [employer] HISTORICAL RESULTS Urine Color YELLOW YELLOW 08/07/2014 2:12 PM [facility] [employer] HISTORICAL RESULTS Urine Clarity HAZY CLEAR 08/07/2014 2:12 PM [facility] [employer] HISTORICAL RESULTS Urine Glucose (UA) NORMAL NORMAL mg/dL 08/07/2014 2:12 PM PLATE CONDITIONER [employer] HISTORICAL RESULTS Urine Bilirubin NEGATIVE NEGATIVE mg/dl 08/07/2014 2:12 PM [facility] [employer] HISTORICAL RESULTS Urine Ketones NEGATIVE NEGATIVE mg/dL 08/07/2014 2:12 PM [facility] [employer] HISTORICAL RESULTS Ur Specific [place] 1.019 1.005 - 1.025 08/07/2014 2:12 PM [facility] [employer] HISTORICAL RESULTS Urine Blood NEGATIVE NEGATIVE mg/dl 08/07/2014 2:12 PM [facility] [employer] HISTORICAL RESULTS Urine pH 5.0 5.0 - 8.0 Urine Protein NEGATIVE NEGATIVE mg/dL Urine Urobilinogen NORMAL NORMAL mg/dL Urine Nitrite NEGATIVE NEGATIVE Ur Leukocyte Esterase 75(H) NEGATIVE Montez/ul 08/07/2014 2:12 PM PLATE CONDITIONER [facility] HISTORICAL RESULTS Ur Microscopic Review Indicated or Ordered 08/07/2014 2:12 PM PLATE CONDITIONER [facility] HISTORICAL RESULTS Urine RBC 3 0 - 2 /HPF Urine WBC 2 0 - 2 /HPF Urine Bacteria Few /HPF Urine Mucus Mod /LPF Ur Squamous Epith Cells Rare /HPF 08/07/2014 1:50 PM PLATE CONDITIONER 08/07/2014 2:03 PM PLATE CONDITIONER Narrative [facility] HISTORICAL RESULTS - 08/07/2014 2:12 PM PLATE CONDITIONER Collected By [facility] ?? [phone] ?? Alvarez Stokes DO LAB MICROBIOLOGY - GENERAL ORDERABLES Final Result Performing Organization Address [facility]/ZIP Co de Phone Number [facility] HISTORICAL RESULTS * TSH reflex to free T4 (08/07/2014 10:30 AM PLATE CONDITIONER) TSH W REFLEX TO FT4 1.63 0.27 - 4.20 uIU/mL 08/07/2014 10:3 0 AM PLATE CONDITIONER 08/07/2014 10:36 AM PLATE CONDITIONER Alvarez Stokes DO LAB BLOOD ORDERABLES Final Result Performing Organization Address [facility]/ZIP Co de Phone Number [facility] HISTORICAL RESULTS * (ABNORMAL) TNI with LIPID PANEL (08/07/2014 10:30 AM PLATE CONDITIONER) Troponin I < 0.300 0.000 - 0.300 ng/mL Comment: Reference using IAN Chemiluminescence ? Negative: Repeat in 4-6 hours as indicated. Triglycerides 89 0 - 199 mg/dL Comment:12 hr pc highly moreno mmended for Triglyceride Cholesterol 196 0 - 199 mg/dL Comment: Borderline: ??200-239 High Risk: ?? >239 HDL Cholesterol 38(L) 40 - 60 mg/dL Comment: Major Risk ?< 40 mg/dL Moderate Risk ?40-60 mg/dL Negative Risk ?? > 60 mg/dL LDL Cholesterol, Calc 140(H) 0 - 130 mg/dL Comment:High Risk > 159 mg/d L Cholesterol/HDL Ratio 5.2 Comment: Cholesterol / HDL Ratio 3.5:1 or less is desirable. Cholesterol / HDL Ratio greater than 5:1 is considered higher risk for developing heart disease. 08/07/2014 10:[address] [facility] 08/07/2014 10:[address] [facility] us Alvarez Stokes DO LAB BLOOD ORDERABLES Final Result [facility] HISTORICAL RESULTS * (ABNORMAL) Comprehensive metabolic panel (08/07/2014 10:[address] [facility]) Pathologist [facility] Sodium 138 135 - 145 mmol/L Potassium 3.8 3.3 - 5.1 mmol/L Chloride 101 96 - 108 mmol/L Carbon Dioxide 21(L) 22 - 32 mmol/L 08/07/2014 11:29 AM [employer] HISTORICAL RESULTS Anion Gap 16 7 - 16 08/07/2014 11:29 AM [employer] HISTORICAL RESULTS Glucose 110(H) 70 - 100 mg/dL 08/07/2014 11:29 AM [employer] HISTORICAL RESULTS Comment:As of June 27 14 new normal range in use. BUN 14 6 - 20 mg/dL 08/07/2014 11:29 AM [employer] HISTORICAL RESULTS Creatinine 0.8 0.5 - 1.1 mg/dL 08/07/2014 11:29 AM [employer] HISTORICAL RESULTS Kidney Disease Stage 82 mL/MIN 08/07/2014 11:29 AM [employer] HISTORICAL RESULTS Comment: NOTE; ??The GFR is [...] 8.6 - 10.0 mg/dL 08/07/2014 11:29 AM [employer] HISTORICAL RESULTS Total Protein 8.3 6.4 - 8.3 g/dL 08/07/2014 11:29 AM [employer] HISTORICAL RESULTS Albumin 4.3 3.5 - 5.2 g/dL 08/07/2014 11:29 AM [employer] HISTORICAL RESULTS Globulin 4.0(H) 2.3 - 3.5 gm/dL Albumin/Globulin Ratio 1.1 1.1 - 1.8 08/07/2014 11:29 AM PLATE CONDITIONER [facility] HISTORICAL RESULTS Total Bilirubin 0.4 0.0 - 1.2 mg/dL 08/07/2014 11:29 AM PLATE CONDITIONER [facility] HISTORICAL RESULTS AST 16 0 - 32 U/L 08/07/2014 11:29 AM PLATE CONDITIONER [facility] HISTORICAL RESULTS ALT 16 0 - 33 U/L Alkaline Phosphatase 64 35 - 104 U/L 08/07/2014 10:3 0 AM PLATE CONDITIONER 08/07/2014 10:36 AM PLATE CONDITIONER Alvarez Stokes DO LAB BLOOD ORDERABLES Final Result [facility] HISTORICAL RESULTS * (ABNORMAL) CBC with auto differential (08/07/2014 10:30 AM PLATE CONDITIONER) WBC 10.8(H) 4.6 - 10.2 x10 3/ul RBC 5.19(H) 3.76 - 4.80 x10 6/ul Hemoglobin 12.4 11.0 - 15.0 g/dl Hct 39.3 33.0 - 43.0 % MCV 75.7(L) 80.0 - 97.0 fl MCH 23.9(L) 27.0 - 31.2 pg MCHC 31.6(L) 31.8 - 35.4 g/dl RDW 17.0(H) 11.6 - 14.8 % Plt Count 430(H) 124 - 400 x10 3/ul MPV 9.6 7.4 - 10.4 fl Differential Method AUTOMATED DIFF --------- -- 08/07/2014 10:39 AM PLATE CONDITIONER [facility] HISTORICAL RESULTS Neut % 60.6 37.0 - 85.0 % Immature Gran % 0.4 0.0 - 3.0 % Lymph % 27.9 5.0 - 45.0 % 08/07/2014 10:39 AM [facility] [place] % 8.2 3.0 - 15.0 % 08/07/2014 10:39 AM PLATE CONDITIONER [facility] Eos % 2.1 0.0 - 7.0 % 08/07/2014 10:39 AM [facility] Baso % 0.8 0.0 - 2.0 % ABSOLUTE COUNTS ABSOLUTE COUNTS --------- -- 08/07/2014 10:39 AM [facility] HIST[facility] RESULTS Absolute Neuts (auto) 6.5 1.7 - 8.7 x10 3/ul 08/07/2014 10:39 AM [facility] HISTORICAL RESULTS Immature Gran # 0.0 0.0 - 0.3 x10 3/ul 08/07/2014 10:39 AM [facility] HISTOR[facility] RESULTS Absolute Lymphs (auto) 3.0 0.2 - 4.6 x10 3/ul 08/07/2014 10:39 AM [facility] HISTOR[facility] RESULTS Absolute Monos (auto) 0.9 0.1 - 1.5 x10 3/ul 08/07/2014 10:39 AM [facility] HISTOR[facility] RESULTS Absolute Eos (auto) 0.2 0.0 - 0.7 x10 3/ul 08/07/2014 10:39 AM PLATE CONDITIONER [facility] HISTORICAL RESULTS Absolute Basos (auto) 0.1 0.0 - 0.2 x10 3/ul 08/07/2014 10:39 AM PLATE CONDITIONER [facility] HISTORICAL RESULTS 08/07/2014 10:3 0 AM PLATE CONDITIONER 08/07/2014 10:36 AM PLATE CONDITIONER Alvarez Rodarte Kike DO LAB BLOOD ORDERABLES Final Result [facility] HISTORICAL RESULTS * XR Chest Pa Lateral 2 Views (08/07/2014 12:00 AM PLATE CONDITIONER) Anatomical Region Laterality Modality Body, Chest N/A Radiographic Phuong ging 08/07/2014 Impressions 08/07/2014 1:20 PM PLATE CONDITIONER ??No acute cardiopulmonary process. THIS IS AN ELECTRONICALLY VERIFIED REPORT 08/07/2014 1:16 PM: ??Amarjit Delatorre M.D. Amarjit Delatorre M.D. CN:delfina 01:16 PM 01:16 PM [facility] [[facility] Narrative 08/07/2014 1:20 PM PLATE CONDITIONER EXAMINATION: ??Chest, two-view HISTORY: ??Cough TECHNIQUE: ??Frontal [...] Delatorre M.D. CN:cn 01:16 PM 01:16 PM [facility] [[facility]] Alvarez Stokes DO IMG XR PROCEDURES Final Res ult documented in this encounter Visit Diagnoses Diagnosis Paroxysmal supraventricular tachycardia (HCC) Paroxysmal supraventricular tachycardia documented in this encounter
--- OUTSIDE RECORDS SUMMARY | 2024-07-11 12:31 | XMS_ITS | Encounter Summary ---
Author Organization [facility] Healthcare Address [address] [place] [address] Care Team Providers Care Hand Coper Name Role Phone Unavailable Primary Care Provider Unavailabl e Encounter Details Date Type Department Care Team (Latest Contact Info) Description 07/23/2015 1:25 PM PROTECTIVE SIGNAL INSTALLER HELPER Hospital Encounter [facility] Baldomero Dominguez MD [address] [place] [address] Anemia; Encounter for general adult medical examination without abnormal findings Social History Tobacco Use Types Packs/Day Years Used Date Smoking Tobacco: Never Assessed Comments Unknown Sex and Gender Information Value Date Recorded Sex Assigned at Not on file Legal Sex Female 1:19 PM PROTECTIVE SIGNAL INSTALLER HELPER Gender Identity Not on file Sexual Orientation Not on file documented as of this encounter Plan of Treatment Not on file documented as of this encounter Procedures Procedure Name Priority Date/Time Associated Diagnosis Comments THYROID PANEL Routine 07/23/2015 1:38 PM PROTECTIVE SIGNAL INSTALLER HELPER IRON PROFILE W/ IBC Routine 07/23/2015 1 :38 PM PROTECTIVE SIGNAL INSTALLER HELPER HEMOGLOBIN A1C Routine 07/23/2015 1:38 PM PROTECTIVE SIGNAL INSTALLER HELPER LIPID PANEL Routine 07/23/2015 1:38 PM PROTECTIVE SIGNAL INSTALLER HELPER COMPREHENSIVE METABOLIC PANEL Routine 07/23/2015 1:38 PM PROTECTIVE SIGNAL INSTALLER HELPER URINALYSIS, MACRO AND MICRO Routine 07/23/2015 1:26 PM PROTECTIVE SIGNAL INSTALLER HELPER documented in this encounter Results * (ABNORMAL) Iron profile w/ IBC (07/23/2015 1:38 PM PROTECTIVE SIGNAL INSTALLER HELPER) Pathologist [facility] Iron 18(L) 37 - 145 ug/dL 07/23/2015 2:10 PM PROTECTIVE SIGNAL INSTALLER HELPER [facility] HISTORICAL RESULTS Comment:Fasting specimen pre ferred TIBC 374 228 - 428 ug/dL 07/23/2015 4:10 PM PROTECTIVE SIGNAL INSTALLER HELPER [facility] HISTORICAL RESULTS Transferrin % Sat 5(L) 20 - 50 % 07/23/2015 4:10 PM PROTECTIVE SIGNAL INSTALLER HELPER [facility] HISTORICAL RESULTS 07/23/2015 1:38 PM PROTECTIVE SIGNAL INSTALLER HELPER 07/23/2015 1:40 PM PROTECTIVE SIGNAL INSTALLER HELPER us Baldomero Dominguez MD LAB BLOOD ORDERABLES Final Resul t Performing Organization Address [facility]/ZIP Co de Phone Number [facility] HISTORICAL RESULTS * Thyroid Panel (07/23/2015 1:38 PM PROTECTIVE SIGNAL INSTALLER HELPER) [facility] TSH 1.18 0.27 - 4.20 uIU/mL 07/23/2015 2:16 PM PROTECTIVE SIGNAL INSTALLER HELPER [facility] HISTORICAL RESULTS Free T4 1.02 0.93 - 1.70 ng/dL 07/23/2015 2:16 PM PROTECTIVE SIGNAL INSTALLER HELPER [facility] HISTORICAL RESULTS 07/23/2015 1:38 PM PROTECTIVE SIGNAL INSTALLER HELPER 07/23/2015 1:40 PM PROTECTIVE SIGNAL INSTALLER HELPER us Baldomero Dominguez MD LAB BLOOD ORDERABLES Final Resul t [facility] HISTORICAL RESULTS * Hemoglobin A1c (07/23/2015 1:38 PM PROTECTIVE SIGNAL INSTALLER HELPER) [facility] Hemoglobin A1c % 5.4 4.8 - 5.9 % 07/23/2015 1:59 PM PROTECTIVE SIGNAL INSTALLER HELPER [facility] HISTORICAL RESULTS Comment: [place] [employer] recommends that the goal of therapy should be an A1C hemoglobin of <7%. Reevaluate the treatment regimen in patients with an A1C >8%. 07/23/2015 1:38 PM PROTECTIVE SIGNAL INSTALLER HELPER 07/23/2015 1:40 PM PROTECTIVE SIGNAL INSTALLER HELPER us Baldomero Dominguez MD LAB BLOOD ORDERABLES Final Resul t Performing Organization Address [facility] de Phone Number [facility] HISTORICAL RESULTS * Lipid panel (07/23/2015 1:38 PM PROTECTIVE SIGNAL INSTALLER HELPER) Triglycerides 78 0 - 199 mg/dL Comment:12 [...] for developing heart disease. 07/23/2015 1:38 PM PROTECTIVE SIGNAL INSTALLER HELPER 07/23/2015 1:40 PM PROTECTIVE SIGNAL INSTALLER HELPER us Baldomero Dominguez MD LAB BLOOD ORDERABLES Final Resul t Performing Organization Address [facility] Phone Number [facility] HISTORICAL RESULTS * (ABNORMAL) Comprehensive metabolic panel (07/23/2015 1:38 PM PROTECTIVE SIGNAL INSTALLER HELPER) Sodium 139 135 - 145 mmol/L Potassium [...] 35 - 104 U/L 07/23/2015 1:38 PM PROTECTIVE SIGNAL INSTALLER HELPER 07/23/2015 1:40 PM PROTECTIVE SIGNAL INSTALLER HELPER us Baldomero Dominguez MD LAB BLOOD ORDERABLES Final Resul t [facility] HISTORICAL RESULTS * (ABNORMAL) Urinalysis, macro and micro (07/23/2015 1:26 PM PROTECTIVE SIGNAL INSTALLER HELPER) Ur Collection Type CLEAN CATCH Urine Color STRAW YELLOW Urine Clarity CLEAR CLEAR Urine Glucose (UA) NORMAL NORMAL mg/dL Urine Bilirubin NEGATIVE NEGATIVE mg/dl Urine Ketones NEGATIVE NEGATIVE mg/dL Ur Specific [place] 1.027(H) 1.005 - 1.025 Urine Blood 0.2(H) NEGATIVE mg/dl 07/23/2015 2:59 PM PROTECTIVE SIGNAL INSTALLER HELPER [facility] HISTORICAL RESULTS Urine pH 5.5 5.0 - 8.0 Urine Protein NEGATIVE NEGATIVE mg/dL Urine Urobilinogen NORMAL NORMAL mg/dL Urine Nitrite NEGATIVE NEGATIVE Ur Leukocyte Esterase 75(H) NEGATIVE [place]/ul 07/23/2015 2:59 PM PROTECTIVE SIGNAL INSTALLER HELPER [facility] HISTORICAL RESULTS Ur Microscopic Review Indicated or Ordered Urine RBC 2 0 - 2 /HPF Urine WBC 4 0 - 2 /HPF Urine Mucus Few /LPF Ur Squamous Epith Cells Rare /HPF 07/23/2015 1:26 PM PROTECTIVE SIGNAL INSTALLER HELPER 07/23/2015 2:46 PM PROTECTIVE SIGNAL INSTALLER HELPER Narrative [facility] HISTORICAL RESULTS - 07/23/2015 2:59 PM PROTECTIVE SIGNAL INSTALLER HELPER us Baldomero Dominguez MD LAB URINE ORDERABLES Final Resul t [facility] HISTORICAL RESULTS documented in this encounter Visit Diagnoses Diagnosis Anemia Unspecified anemia Encounter for general adult medical examination without abnormal findings documented in this encounter
--- OUTSIDE RECORDS SUMMARY | 2024-07-11 12:31 | XMS_ITS | Encounter Summary ---
Author Organization [facility] Healthcare Address [address] [place] [address] Care Team Providers Care Mortgage Protection Specialist Name Role Phone Unavailable Primary Care Provider Unavailabl e Encounter Details Date Type Department Care Team (Latest Contact Info) Description 09/16/2014 8:30 PM DELIVERY CREW WORKER - 09/17/2014 2:14 AM DELIVERY CREW WORKER Hospital Encounter [facility] ER Amaris Huerta MD [address] [facility] [address] Calculus of gallbladder and bile duct without cholecystitis Social History Tobacco Use Types Packs/Day Years Used Date Smoking Tobacco: Never Assessed Comments Unknown Sex and Gender Information Value Date Recorded Sex Assigned at Not on file Legal Sex Female 1:19 PM DELIVERY CREW WORKER Gender Identity Not on file Sexual Orientation Not on file documented as of this encounter Last Filed Vital Signs Vital Sign Reading Time Taken Comments Blood Pressure 129/73 09/16/2014 8:35 PM DELIVERY CREW WORKER Pulse 98 09/16/2014 8:35 PM DELIVERY CREW WORKER Temperature 37.3 ??C (99.1 ??F) 09/16/2014 8:35 PM CS T Respiratory Rate - - Oxygen Saturation 100% 09/16/2014 8:35 PM DELIVERY CREW WORKER Inhaled Oxygen Concentration - - Weight 118.8 kg (262 lb) 09/16/2014 8:35 PM DELIVERY CREW WORKER Height 167.6 cm (5' 6 ) 09/16/2014 8:35 PM DELIVERY CREW WORKER Body Mass Index 42.29 09/16/2014 8:35 PM DELIVERY CREW WORKER documented in this encounter Plan of Treatment Not on file documented as of this encounter Procedures Procedure Name Priority Date/Time Associated Diagnosis Comments CT ABDOMEN PELVIS W CONTRAST Routine 09/17/2014 12:00 AM DELIVERY CREW WORKER URINALYSIS AND REFLEX TO MICROSCOPIC AND CULTURE Routine 09/16/2014 10:33 PM DELIVERY CREW WORKER CBC WITH AUTO DIFFERENTIAL Routine 09/16/2014 9:21 PM DELIVERY CREW WORKER LIPASE Routine 09/16/2014 9:21 PM DELIVERY CREW WORKER COMPREHENSIVE METABOLIC PANEL Routine 09/16/2014 9:21 PM DELIVERY CREW WORKER documented in this encounter Results * CT Abdomen Pelvis W Contrast (09/17/2014 12:00 AM DELIVERY CREW WORKER) Anatomical Region Laterality Modality Body N/A Computed Tomogra phy 09/17/2014 Impressions 09/17/2014 1:22 AM DELIVERY CREW WORKER Cholelithiasis without evidence of acute cholecystitis. ??Correlation with Atkins's sign is recommended. THIS IS AN ELECTRONICALLY VERIFIED REPORT 09/17/2014 1:19 AM: ??Shaheen Cleary M.D. Shaheen Cleary M.D. MA:mickey 01:19 AM 01:19 AM APO [EOD] Narrative 09/17/2014 1:22 AM DELIVERY CREW WORKER EXAMINATION: ??CT abdomen and pelvis with contrast [...] to microscopic and culture (09/16/2014 10:33 PM DELIVERY CREW WORKER) Ur Collection Type CLEAN CATCH Ur Culture Indicated? C&S NOT INDICATED Urine Color YELLOW YELLOW Urine Clarity HAZY CLEAR Urine Glucose (UA) NORMAL NORMAL mg/dL Urine Bilirubin NEGATIVE NEGATIVE mg/dl Urine Ketones NEGATIVE NEGATIVE mg/dL Ur Specific [place] 1.027(H) 1.005 - 1.025 Urine Blood 0.03(H) [...] Cells Rare /HPF 09/16/2014 10:3 3 PM DELIVERY CREW WORKER 09/16/2014 11:06 PM DELIVERY CREW WORKER Narrative [facility] HISTORICAL RESULTS - 09/16/2014 11:38 PM DELIVERY CREW WORKER Collected By HAMLET ?? [phone] ?? Kati MAURICE LAB MICROBIOLOGY - GENERAL OR DERABLES Final Result Performing Organization Address [facility]/ZIP Co de Phone Number [facility] HISTORICAL RESULTS * Lipase (09/16/2014 9:21 PM DELIVERY CREW WORKER) Lipase 17 13 - 60 U/L 09/16/2014 9:21 PM DELIVERY CREW WORKER 09/16/2014 9:23 PM DELIVERY CREW WORKER Kati MAURICE LAB BLOOD ORDERABLES Final Re sult Performing Organization Address [facility] Co de Phone Number [facility] HISTORICAL RESULTS * (ABNORMAL) Comprehensive metabolic panel (09/16/2014 9:21 PM DELIVERY CREW WORKER) Pathologist [facility] Sodium 138 135 [...] 35 - 104 U/L 09/16/2014 9:21 PM DELIVERY CREW WORKER 09/16/2014 9:23 PM DELIVERY CREW WORKER us Kati MAURICE LAB BLOOD ORDERABLES Final Re sult [facility] [employer] HISTORICAL RESULTS * (ABNORMAL) CBC with auto differential (09/16/2014 9:21 PM DELIVERY CREW WORKER) [facility] WBC 10.0 4.6 - 10.2 x10 3/ul 09/16/2014 9:26 PM DELIVERY CREW WORKER [facility] [employer] HISTORICAL RESULTS RBC 4.76 3.76 - 4.80 x10 6/ul 09/16/2014 9:26 PM DELIVERY CREW WORKER [facility] [employer] HISTORICAL RESULTS Hemoglobin 11.1 11.0 - 15.0 g/dl 09/16/2014 9:26 PM [facility] [employer] HISTORICAL RESULTS Hct 35.1 33.0 - 43.0 % 09/16/2014 9:26 PM [facility] MCV 73.7(L) 80.0 - 97.0 fl 09/16/2014 9:26 PM [facility] [employer] [facility] HISTORICAL RESULTS MCH 23.3(L) 27.0 - 31.2 pg 09/16/2014 9:26 PM [facility] [employer] HISTORICAL RESULTS MCHC 31.6(L) 31.8 - 35.4 g/dl 09/16/2014 9:26 PM [facility] [employer] HISTORICAL RESULTS RDW 17.6(H) 11.6 - 14.8 % 09/16/2014 9:26 PM [facility] [employer] HISTORICAL RESULTS Plt Count 390 124 - 400 x10 3/ul 09/16/2014 9:26 PM [facility] [employer] HISTORICAL RESULTS MPV 9.3 7.4 - 10.4 fl 09/16/2014 9:26 PM [facility] [employer] HISTORICAL RESULTS Differential Method AUTOMATED DIFF --------- -- 09/16/2014 9:26 PM [facility] [employer] HISTORICAL RESULTS Neut % 84.1 37.0 - 85.0 % 09/16/2014 9:26 PM [facility] [employer] HISTORICAL RESULTS Immature Gran % 0.2 0.0 - 3.0 % 09/16/2014 9:26 PM [facility] [employer] [facility] HISTORICAL RESULTS Lymph % 9.2 5.0 - 45.0 % [place] % 5.5 3.0 - 15.0 % Eos [...] - 0.2 x10 3/ul 09/16/2014 9:21 PM [facility] [[email or web address]] 09/16/2014 9:23 PM [facility] [[email or web address] us Kati MAURICE LAB BLOOD ORDERABLES Final Re sult [facility] HISTORICAL RESULTS documented in this encounter Visit Diagnoses Diagnosis Calculus of gallbladder and bile duct without cholecystitis Calculus of gallbladder and bile duct without cholecystitis, without mention of obstruction documented in this encounter
--- OUTSIDE RECORDS SUMMARY | 2024-07-11 12:31 | XMS_ITS | Encounter Summary ---
Author Organization [facility] Healthcare Address [address] [place] [address] Care Team Providers Care Investigative Writer Name Role Phone Unavailable Primary Care Provider Unavailabl e Encounter Details Date Type Department Care Team (Late st Contact Info) Description 02/17/2014 3:46 AM CDT - 02/17/2014 4:45 AM CDT Hospital Encounter [facility] ER Anaya Mata MD [address] [place] [address] [place] Social History Tobacco Use Types Packs/Day Years Used Date Smoking Tobacco: Never Assessed Comments Unknown Sex and Gender Information Value Date Recorded Sex Assigned at Not on file Legal Sex Female 1:19 PM DOWELING MACHINE OPERATOR Gender Identity Not on file [...]
--- OUTSIDE RECORDS SUMMARY | 2024-07-11 12:31 | XMS_ITS | Encounter Summary ---
Author Organization [facility] Healthcare Address [address] [place] [address] Care Team Providers Care Health Assistant Name Role Phone Baldomero Dominguez MD Primary Care Provider [phone] Encounter Details Date Type Department Care Team (Late st Contact Info) Description 05/12/2018 1:45 PM CDT Hospital Encounter [facility] OP El Rodríguez Jr., MD [address] [place] [id number] Social History Tobacco Use Types Packs/Day Years Used Date Smoking Tobacco: Never Comments Unknown Sex and Gender Information Value Date Recorded Sex Assigned at Not on file Legal Sex Female 1:19 PM DOCUMENTATION CLERK Gender Identity Not on file Sexual Orientation Not on file documented as of this encounter Plan of Treatment Not on file documented as of this encounter Visit Diagnoses Not on filedocumented in this encounter Care Teams Health Assistant Relationship Specialty Start Date End Date Baldomero Dominguez MD PCP - General 01/07/17 documented as of this encounter
--- OUTSIDE RECORDS SUMMARY | 2024-07-11 12:31 | XMS_ITS | Encounter Summary ---
Author Organization [facility] Healthcare Address [address] [place] [address] Care Team Providers Care Rn Otolaryngology Name Role Phone Unavailable Primary Care Provider Unavailabl e Encounter Details Date Type Department Care Team (Latest Contact Info) Description 05/06/2016 7:06 AM CDT Hospital Encounter [facility] OP Baldomero Dominguez MD [address] [place] [address] Elevated white blood cell count Social History Tobacco Use Types Packs/Day Years Used Date Smoking Tobacco: Never Comments Unknown Sex and Gender Information Value Date Recorded Sex Assigned at Not on file Legal Sex Female 1:19 PM REGIONAL WILDLIFE AGENT Gender Identity Not on file Sexual [...] WBC 9.2 4.6 - 10.2 x10 3/ul RBC 4.87(H) 3.76 - 4.80 x10 6/ul 05/06/2016 7:43 AM CDT [facility] Hemoglobin 12.3 11.0 - 15.0 g/dl 05/06/2016 7:43 AM CDT [facility] HISTORICAL RESULTS Hct 38.7 33.0 - 43.0 % 05/06/2016 7:43 AM CDT [facility] MCV 79.5(L) 80.0 - 97.0 fl 05/06/2016 7:43 AM CDT [facility] H[facility] MCH 25.3(L) 27.0 - 31.2 pg 05/06/2016 7:43 AM CDT [facility] H[facility] RES[facility] MCHC 31.8 31.8 - 35.4 g/dl 05/06/2016 7:43 AM CDT [facility] [employer] HISTORICAL RESULTS RDW 15.3(H) 11.6 - 14.8 % 05/06/2016 7:43 AM CDT [facility] [employer] HISTORICAL RESULTS Plt Count 388 124 - 400 x10 3/ul 05/06/2016 7:43 AM CDT [facility] [employer] HISTORICAL RESULTS MPV 9.9 7.4 - 10.4 fl 05/06/2016 7:43 AM CDT [facility] [employer] [facility] Neut % 61.4 37.0 - 85.0 % 05/06/2016 7:43 AM CDT [facility] [employer] [facility] Immature Gran % 0.4 0.0 - 3.0 % 05/06/2016 7:43 AM CDT [facility] [employer] [facility] H[facility] RES[facility] Lymph % 27.4 5.0 - 45.0 % 05/06/2016 7:43 AM CDT [facility] [employer] [facility] H[facility] RESULTS Angelina % 7.9 3.0 - 15.0 % 05/06/2016 7:43 AM CDT [facility] H[facility] RES[facility] Eos % 2.1 0.0 - 7.0 % 05/06/2016 7:43 AM CDT [facility] [employer] HISTORICAL RESULTS Baso % 0.8 0.0 - 2.0 % 05/06/2016 7:43 AM CDT [facility] [employer] [facility] Absolute Neuts (auto) 5.6 1.7 - 8.7 x10 3/ul 05/06/2016 7:43 AM CDT [facility] [employer] [facility] Immature Gran # 0.0 0.0 - 0.3 x10 3/ul [employer] Lymphs (auto) 2.5 0.2 - 4.6 x10 3/ul Absolute Monos (auto) 0.7 0.1 - 1.5 x10 3/ul Absolute Eos (auto) 0.2 0.0 - 0.7 x10 3/ul Absolute Basos (auto) 0.1 0.0 - 0.2 x10 3/ul 05/06/2016 7:14 AM CDT 05/06/2016 7:27 AM CDT us Baldomero Dominguez MD LAB BLOOD ORDERABLES Final Resul t [facility] HISTORICAL RESULTS documented in this encounter Visit Diagnoses Diagnosis Elevated white blood cell count Leukocytosis, unspecified documented in this encounter
--- OUTSIDE RECORDS SUMMARY | 2024-07-11 12:31 | XMS_ITS | Encounter Summary ---
Author Organization [facility] Healthcare Address [address] [place] [address] Care Team Providers Care Dock Hand Name Role Phone Unavailable Primary Care Provider Unavailabl e Encounter Details Date Type Department Care Team (Latest Contact Info) Description 08/18/2016 8:49 AM MANAGEMENT INTERNSHIP - 08/25/2016 8:49 AM MANAGEMENT INTERNSHIP Hospital Encounter [facility] OP Baldomero Dominguez MD [address] [place] [address] Anemia; Other fatigue; Left lower quadrant pain Social History Tobacco Use Types Packs/Day Years Used Date Smoking Tobacco: Never Comments Unknown Sex and Gender Information Value Date Recorded Sex Assigned at Not on file Legal Sex Female 1:19 PM MANAGEMENT INTERNSHIP Gender Identity Not on file Sexual Orientation Not on file documented as of this encounter Plan of Treatment Not on file documented as of this encounter Procedures Procedure Name Priority Date/Time Associated Diagnosis Comments THYROID PANEL Routine 08/18/2016 11:24 AM MANAGEMENT INTERNSHIP IRON PROFILE W/ IBC Routine 08/18/2016 1 1:24 AM MANAGEMENT INTERNSHIP VITAMIN D 25 HYDROXY Routine 08/18/2016 11:24 AM MANAGEMENT INTERNSHIP VITAMIN B12 Routine 08/18/2016 11:24 AM MANAGEMENT INTERNSHIP LIPID PANEL Routine 08/18/2016 11:24 AM MANAGEMENT INTERNSHIP COMPREHENSIVE METABOLIC PANEL Routine 08/18/2016 11:24 AM MANAGEMENT INTERNSHIP URINALYSIS, MACRO AND MICRO Routine 08/18/2016 8:51 AM MANAGEMENT INTERNSHIP documented in this encounter Results * Thyroid Panel (08/18/2016 11:24 AM MANAGEMENT INTERNSHIP) Pathologist [facility] TSH 1.68 0.27 - 4.20 uIU/mL 08/18/2016 2:58 PM MANAGEMENT INTERNSHIP [facility] HISTORICAL RESULTS Free T4 1.04 0.93 - 1.70 ng/dL 08/18/2016 2:58 PM MANAGEMENT INTERNSHIP [facility] HISTORICAL RESULTS 08/18/2016 11:2 4 AM MANAGEMENT INTERNSHIP 08/18/2016 11:25 AM MANAGEMENT INTERNSHIP us Baldomero Dominguez MD LAB BLOOD ORDERABLES Final Resul t [facility] HISTORICAL RESULTS * (ABNORMAL) Vitamin D 25 hydroxy (08/18/2016 11:24 AM MANAGEMENT INTERNSHIP) Pathologist [facility] 25-OH Vitamin D Total 12(L) 30 - 100 ng/mL 08/18/2016 12:15 PM MANAGEMENT INTERNSHIP [facility] HISTORICAL RESULTS Comment: ??Use caution when comparing results from different ? methodologies and/or manufacturers. ? METHOD: [employer] Chemiluminescent technology TEST INFORMATION: Vitamin D, 25 Hydroxy This assay accurately quantifies the sum of vitamin D3, 25-hydroxy and vitamin D2, 25-hydroxy. REFERENCE RANGES: ?Deficiency: ? < 20 ng/mL ?Insufficiency: ? 20-29 ng/mL ?Optimum level: ?30-100 ng/mL ?Possible toxicity: ?>100 ng/mL No pediatric reference range established. 08/18/2016 11:2 4 AM MANAGEMENT INTERNSHIP 08/18/2016 11:25 AM MANAGEMENT INTERNSHIP us Baldomero Dominguez MD LAB BLOOD ORDERABLES Final Resul t Performing Organization Address [facility] Phone Number [facility] HISTORICAL RESULTS * Vitamin B12 (08/18/2016 11:24 AM MANAGEMENT INTERNSHIP) Vitamin B12 280 211 - 946 pg/mL 08/18/2016 2:10 PM MANAGEMENT INTERNSHIP [facility] [employer] [facility] HISTORICAL RESULTS Comment:FASTING IS RECOMMEND ED 08/18/2016 11:2 4 AM MANAGEMENT INTERNSHIP 08/18/2016 11:25 AM MANAGEMENT INTERNSHIP us Baldomero Dominguez MD LAB BLOOD ORDERABLES Final Resul t Performing Organization Address [facility] Number [facility] [email or web address] HISTORICAL RESULTS * (ABNORMAL) Iron profile w/ IBC (08/18/2016 11:24 AM MANAGEMENT INTERNSHIP) Iron 26(L) 37 - 145 ug/dL 08/18/2016 2:53 PM [facility] [email or web address] HISTORICAL RESULTS Comment:Fasting specimen pre ferred TIBC 325 228 - 428 ug/dL 08/18/2016 2:53 PM MANAGEMENT INTERNSHIP [facility] [employer] [facility] HISTORICAL RESULTS Transferrin % Sat 8(L) 20 - 50 % 08/18/2016 2:53 PM MANAGEMENT INTERNSHIP [facility] [employer] [facility] HISTORICAL RESULTS 08/18/2016 11:2 4 AM MANAGEMENT INTERNSHIP 08/18/2016 11:25 AM MANAGEMENT INTERNSHIP us Baldomero Dominguez MD LAB BLOOD ORDERABLES Final Resul t Performing Organization Address [facility] Phone Number [facility] [email or web address] HISTORICAL RESULTS * Lipid panel (08/18/2016 11:24 AM MANAGEMENT INTERNSHIP) Triglycerides 109 0 - 199 mg/dL 08/18/2016 2:53 PM MANAGEMENT INTERNSHIP [facility] [email or web address] HISTORICAL RESULTS Comment:12 hr pc highly moreno [...] developing heart disease. 08/18/2016 11:2 4 AM MANAGEMENT INTERNSHIP 08/18/2016 11:25 AM MANAGEMENT INTERNSHIP Baldomero Dominguez MD LAB BLOOD ORDERABLES Final Resul t [facility] HISTORICAL RESULTS * (ABNORMAL) Comprehensive metabolic panel (08/18/2016 11:24 AM MANAGEMENT INTERNSHIP) Sodium 139 135 - 145 mmol/L Potassium [...] Disease Stage 71 mL/MIN 08/18/2016 2:53 PM [facility] HISTORICAL RESULTS Comment: NOTE; ??The GFR is [...] 8.6 - 10.0 mg/dL 08/18/2016 2:53 PM [facility] HISTORICAL RESULTS Total Protein 7.3 6.4 - 8.3 g/dL 08/18/2016 2:53 PM [employer] [facility] [email or web address] HISTORICAL RESULTS Albumin 3.8 3.5 - 5.2 g/dL 08/18/2016 2:53 PM [employer] [facility] [email or web address] HISTORICAL RESULTS Globulin 3.5 2.3 - 3.5 gm/dL 08/18/2016 2:53 PM [employer] [facility] [email or web address] HISTORICAL RESULTS Albumin/Globulin Ratio 1.1 1.1 - 1.8 08/18/2016 2:53 PM [employer] [facility] [email or web address] HISTORICAL RESULTS Total Bilirubin < 0.2 0.0 - 1.2 mg/dL 08/18/2016 2:53 PM [employer] [facility] [email or web address] HISTORICAL RESULTS AST 17 0 - 32 U/L 08/18/2016 2:53 PM MANAGEMENT INTERNSHIP [facility] HISTORICAL RESULTS ALT 18 0 - 33 U/L 08/18/2016 2:53 PM MANAGEMENT INTERNSHIP [facility] HISTORICAL RESULTS Alkaline Phosphatase 72 35 - 104 U/L 08/18/2016 2:53 PM MANAGEMENT INTERNSHIP [facility] HISTORICAL RESULTS 08/18/2016 11:2 4 AM MANAGEMENT INTERNSHIP 08/18/2016 11:25 AM MANAGEMENT INTERNSHIP us Baldomero Dominguez MD LAB BLOOD ORDERABLES Final Resul t [facility] HISTORICAL RESULTS * (ABNORMAL) Urinalysis, macro and micro (08/18/2016 8:51 AM MANAGEMENT INTERNSHIP) Ur Collection Type CLEAN CATCH Urine Color YELLOW YELLOW Urine Clarity HAZY CLEAR Urine Glucose (UA) NORMAL NORMAL mg/dL Urine Bilirubin NEGATIVE NEGATIVE mg/dl Urine Ketones NEGATIVE NEGATIVE mg/dL Ur Specific [place] 1.030(H) 1.005 - 1.025 Urine Blood 0.03(H) NEGATIVE mg/dl Urine pH 6.0 5.0 - 8.0 Urine Protein NEGATIVE NEGATIVE mg/dL Urine Urobilinogen NORMAL NORMAL mg/dL Urine Nitrite NEGATIVE NEGATIVE Ur Leukocyte Esterase NEGATIVE NEGATIVE Montez/ul Ur Microscopic Review Indicated or Ordered 08/18/2016 9:30 AM MANAGEMENT INTERNSHIP [facility] HISTORICAL RESULTS Urine RBC 4 0 - 2 /HPF 08/18/2016 9:30 AM MANAGEMENT INTERNSHIP [facility] HISTORICAL RESULTS Urine WBC <1 0 - 2 /HPF 08/18/2016 9:30 AM MANAGEMENT INTERNSHIP [facility] HISTORICAL RESULTS Urine Mucus Few /LPF 08/18/2016 9:30 AM MANAGEMENT INTERNSHIP [facility] HISTORICAL RESULTS Ur Squamous Epith Cells Rare /HPF 08/18/2016 9:30 AM MANAGEMENT INTERNSHIP [facility] HISTORICAL RESULTS 08/18/2016 8:51 AM MANAGEMENT INTERNSHIP 08/18/2016 9:20 AM MANAGEMENT INTERNSHIP Narrative [facility] HISTORICAL RESULTS - 08/18/2016 9:30 AM MANAGEMENT INTERNSHIP us Baldomero Dominguez MD LAB URINE ORDERABLES Final Resul t [facility] HISTORICAL RESULTS documented in this encounter Visit Diagnoses Diagnosis Anemia Unspecified anemia Other fatigue Left lower quadrant pain Abdominal pain, left lower quadrant documented in this encounter
--- OUTSIDE RECORDS SUMMARY | 2024-07-11 12:31 | XMS_ITS | Encounter Summary ---
Author Organization [facility] Healthcare Address [address] [place] [address] Care Team Providers Care Stick Welder Name Role Phone Baldomero Dominguez MD Primary Care Provider [phone] Encounter Details Date Type Department Care Team (Latest Contact Info) Description 11/23/2017 9:00 AM CDT Hospital Encounter [facility] OP Deonte Monson MD [address] [facility] [address] [address] Supraventricular tachycardia (CMS/HCC); Family history of ischemic heart disease and other diseases of the circulatory system; Personal history of other diseases of the circulatory system Social History Tobacco Use Types Packs/Day Years Used Date Smoking Tobacco: Never Comments Unknown Sex and Gender Information Value Date Recorded Sex Assigned at Not on file Legal Sex Female 1:19 PM CAR RECORD CLERK Gender Identity Not on file Sexual [...] 10.5 x10 3/ul 11/23/2017 9:47 AM CDT [facility] HISTORICAL RESULTS RBC 4.42 3.76 - 4.80 x10 6/ul 11/23/2017 9:47 AM CDT [facility] HISTORICAL RESULTS Hemoglobin 12.7 11.0 - 15.0 g/dL 11/23/2017 9:47 AM CDT [facility] HISTORICAL RESULTS Hct 38.2 33.0 - 43.0 % 11/23/2017 9:47 AM CDT [facility] HISTORICAL RESULTS MCV 86.4 80.0 - 97.0 fl 11/23/2017 9:47 AM CDT [facility] HISTORICAL RESULTS MCH 28.7 27.0 - 31.2 pg 11/23/2017 9:47 AM CDT [facility] HISTORICAL RESULTS MCHC 33.2 31.8 - 35.4 g/dl 11/23/2017 9:47 AM CDT [facility] HISTORICAL RESULTS RDW 13.7 11.6 - 14.8 % 11/23/2017 9:47 AM CDT [facility] HISTORICAL RESULTS Plt Count 347 150 - 450 X10 3/ul 11/23/2017 9:47 AM CDT [facility] HISTORICAL RESULTS MPV 10.4 7.4 - 10.4 fl 11/23/2017 9:47 AM CDT [facility] HISTORICAL RESULTS Neut % 69.1 37.0 - 85.0 % 11/23/2017 9:47 AM CDT [employer] HISTORICAL RESULTS Immature Gran % 0.2 0.0 - 3.0 % 11/23/2017 9:47 AM CDT [employer] HISTORICAL RESULTS Lymph % 20.9 5.0 - 45.0 % 11/23/2017 9:47 AM CDT [employer] HISTORICAL RESULTS [place] % 7.6 3.0 - 15.0 % Eos % 1.6 0.0 - 7.0 % 11/23/2017 9:47 AM [facility] HISTORICAL RESULTS Baso % 0.6 0.0 - 2.0 % 11/23/2017 9:47 AM [facility] HISTORICAL RESULTS Absolute Neuts (auto) 6.7 1.7 - 8.7 x10 3/ul 11/23/2017 9:47 AM [facility] HISTORICAL RESULTS Immature Gran # 0.0 0.0 - 0.3 x10 3/ul Absolute Lymphs (auto) 2.0 0.2 - 4.6 x10 3/ul 11/23/2017 9:47 AM [facility] HISTORICAL RESULTS Absolute Monos (auto) 0.7 0.1 - 1.5 x10 3/ul 11/23/2017 9:47 AM [facility] HISTORICAL RESULTS Absolute Eos (auto) 0.2 0.0 - 0.7 x10 3/ul Absolute Basos (auto) 0.1 0.0 - 0.2 x10 3/ul 11/23/2017 9:47 AM [facility] HISTORICAL RESULTS Nucleat RBC Rel Count 0.0 0 - 3 #/100WBC 11/23/2017 9:47 AM [facility] HISTORICAL RESULTS Absolute Nucleated RBC 0.00 x10 3/ul 11/23/2017 9:47 AM [facility] HISTORICAL RESULTS Absolute Neutrophils 6700 200 - 8000 /ul 11/23/2017 9:47 AM [facility] HISTORICAL RESULTS 11/23/2017 9:11 AM CDT 11/23/2017 9:27 AM T Narrative [facility] HISTORICAL RESULTS - 11/23/2017 9:47 AM T 12 HOURS FASTING Deonte Monson MD LAB BLOOD ORDERABLES Ingris l Result [facility] HISTORICAL RESULTS * TSH (11/23/2017 9:11 AM CDT) TSH 1.55 0.27 - 4.20 uIU/mL 11/23/2017 10:32 AM [facility] HISTORICAL RESULTS 11/23/2017 9:11 AM CDT 11/23/2017 9:27 AM T [facility] HISTORICAL RESULTS - 11/23/2017 10:32 AM CDT 12 HOURS FASTING Deonte Monson MD LAB BLOOD ORDERABLES Ingris l Result Performing Organization Address [facility]/ZIP Co de Phone Number [facility] HISTORICAL RESULTS * Lipid panel (11/23/2017 9:11 AM CDT) Pathologist [facility] Triglycerides 47 0 - 199 mg/dL 11/23/2017 10:26 AM [facility] HISTORICAL RESULTS Comment:12 hr pc highly moreno mmended for Triglyceride Cholesterol 173 0 - 199 mg/dL 11/23/2017 10:26 AM [facility] HISTORICAL RESULTS Comment: Borderline: ??200-239 High Risk: ?? >239 HDL Cholesterol 45 mg/dL 8 10:26 AM [facility] HISTORICAL RESULTS Comment: Reference Ranges: ? Males: >=40 mg/dL ? Females: >=50 mg/dL LDL Cholesterol, Calc 119 0 - 130 mg/dL 11/23/2017 10:26 AM [facility] HISTORICAL RESULTS Comment:High Risk > 159 mg/d L Cholesterol/HDL Ratio 3.8 11/23/2017 10:26 AM [facility] HISTORICAL RESULTS Comment: Cholesterol / HDL Ratio 3.5:1 or less is desirable. Cholesterol / HDL Ratio greater than 5:1 is considered higher risk for developing heart disease. 11/23/2017 9:11 AM CDT 11/23/2017 9:27 AM [facility] HISTORICAL RESULTS - 11/23/2017 10:26 AM CDT 12 HOURS FASTING Deonte Monson MD LAB BLOOD ORDERABLES Ingris l Result Performing Organization Address [facility]/ZIP Co de Phone Number [facility] HISTORICAL RESULTS * Comprehensive metabolic panel (11/23/2017 9:[address] [facility]) [facility] Signature Sodium 137 135 - 145 mmol/L 11/23/2017 10:26 AM [facility] HISTORICAL RESULTS Potassium 3.6 3.3 - 5.1 mmol/L 11/23/2017 10:26 AM [facility] HISTORICAL RESULTS Chloride 98 96 - 108 mmol/L 11/23/2017 10:26 AM [facility] HISTORICAL RESULTS Carbon Dioxide 27 22 - 32 mmol/L 11/23/2017 10:26 AM [facility] HISTORICAL RESULTS Anion Gap 12 7 - 16 11/23/2017 10:26 AM [facility] HISTORICAL RESULTS Glucose 97 70 - 100 mg/dL 11/23/2017 10:26 AM [facility] HISTORICAL RESULTS BUN 10 6 - 20 mg/dL 11/23/2017 10:26 AM [facility] HISTORICAL RESULTS Creatinine 0.6 0.5 - 1.1 mg/dL 11/23/2017 10:26 AM [facility] HISTORICAL RESULTS Comment: NOTE: Estimated GFR (Cockroft-Gault) will NOT be calculated unless patient Height and Weight were entered. Also, Kidney Disease Stage (GFR) and Estimated GFR (Cockroft-Gault) will NOT be calculated if Creatinine result is <0.2. Kidney Disease Stage > 90 mL/MIN 11/23/2017 10:26 AM [facility] HISTORICAL RESULTS Comment: NOTE; ??The GFR is [...] 8.6 - 10.0 mg/dL 11/23/2017 10:26 AM [facility] HISTORICAL RESULTS Total Protein 7.3 6.4 - 8.3 g/dL 11/23/2017 10:26 AM [facility] HISTORICAL RESULTS Albumin 4.0 3.5 - 5.2 g/dL 11/23/2017 10:26 AM [facility] HISTORICAL RESULTS Globulin 3.3 2.3 - 3.5 gm/dL 11/23/2017 10:26 AM [facility] HISTORICAL RESULTS Albumin/Globulin Ratio 1.2 1.1 - 1.8 11/23/2017 10:26 AM [facility] HISTORICAL RESULTS Total Bilirubin 0.4 0.0 - 1.2 mg/dL 11/23/2017 10:26 AM [facility] HISTORICAL RESULTS AST 16 0 - 32 U/L 11/23/2017 10:26 AM [facility] HISTORICAL RESULTS ALT 16 0 - 33 U/L 11/23/2017 10:26 AM [facility] HISTORICAL RESULTS Alkaline Phosphatase 62 35 - 104 U/L 11/23/2017 10:26 AM [facility] HISTORICAL RESULTS 11/23/2017 9:11 AM CDT 11/23/2017 9:[address] [facility] Narrative [facility] HISTORICAL RESULTS - 11/23/2017 10:26 AM T 12 HOURS FASTING us Deonte Monson MD LAB BLOOD ORDERABLES Ingris l Result [facility] HISTORICAL RESULTS documented in this encounter Visit Diagnoses Diagnosis Supraventricular tachycardia (HCC) Other specified cardiac dysrhythmias Family history of ischemic heart disease and other diseases of the circulatory system Personal history of other diseases of the circulatory system documented in this encounter Care Teams Stick Welder Relationship Specialty Start Date End Date Baldomero Dominguez MD PCP - General 01/07/17 documented as of this encounter
--- OUTSIDE RECORDS SUMMARY | 2024-07-11 12:31 | XMS_ITS | Encounter Summary ---
Author Organization [facility] Healthcare Address [address] [place] [address] Care Team Providers Care Hand Booked Folder And Stitcher Name Role Phone Unavailable Primary Care Provider Unavailabl e Encounter Details Date Type Department Care Team (Latest Contact Info) Description 04/24/2016 8:40 AM CDT - 04/24/2016 9:55 AM CDT Hospital Encounter [facility] Henrique Gu II, MD [address] [place] [address] Contusion of left hand; Striking against or struck by other objects, initial encounter; Other table assembler metal (current) drug therapy Social History Tobacco Use Types Packs/Day Years Used Date Smoking Tobacco: Never Comments Unknown Sex and Gender Information Value Date Recorded Sex Assigned at Not on file Legal Sex Female 1:19 PM DENTAL OFFICE 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 THIS IS AN ELECTRONICALLY VERIFIED REPORT 04/24/2016 9:41 AM: ??Alvarez Ramon M.D. ?? Alvarez Ramon M.D. AB: 09:41 AM 09:41 AM [facility] [EOD] Narrative 04/24/2016 9:44 AM CDT [...] Ramon M.D. AB: 09:41 AM 09:41 AM [facility] [EOD] Henrique Kwon II, MD IMG XR PROCEDURES Final R esult documented in this encounter Visit Diagnoses Diagnosis Contusion of left hand Striking against or struck by other objects, initial encounter Other table assembler metal (current) drug therapy documented in this encounter
--- OUTSIDE RECORDS SUMMARY | 2024-07-11 12:31 | XMS_ITS | Encounter Summary ---
Author Organization [facility] Healthcare Address [address] [place] [address] Care Team Providers Care Web Site Project Manager Name Role Phone Unavailable Primary Care Provider Unavailabl e Encounter Details Date Type Department Care Team (Latest Contact Info) Description 08/18/2013 10:38 AM REMOTE SENSING ADVISOR Hospital Encounter [facility] OP Pee Villasenor MD [address] [facility] [address] [id number] Lump or mass in breast; Solitary cyst of breast Social History Tobacco Use Types Packs/Day Years Used Date Smoking Tobacco: Never Assessed Comments Unknown Sex and Gender Information Value Date Recorded Sex Assigned at Not on file Legal Sex Female 1:19 PM REMOTE SENSING ADVISOR Gender Identity Not on file Sexual Orientation Not on file documented as of this encounter Plan of Treatment Not on file documented as of this encounter Procedures Procedure Name Priority Date/Time Associated Diagnosis Comments US BREAST LEFT COMPLETE Routine 08/18/2013 10:55 AM REMOTE SENSING ADVISOR DIAGNOSTIC MAMMOGRAM 2D LEFT Routine 08/18/2013 10:40 AM REMOTE SENSING ADVISOR GENERAL RADIOLOGY REPORT 08/18/2013 12:00 AM REMOTE SENSING ADVISOR GENERAL RADIOLOGY REPORT 08/18/2013 12:00 AM REMOTE SENSING ADVISOR documented in this encounter Results * US Breast Left Complete (08/18/2013 10:55 AM REMOTE SENSING ADVISOR) Anatomical Region Laterality Modality Breast Left Ultrasound 08/18/2013 10:5 5 AM REMOTE SENSING ADVISOR Narrative 08/18/2013 11:17 AM REMOTE SENSING ADVISOR Please refer to the diagnostic mammography report from the same date. The reports have been combined. THIS IS AN ELECTRONICALLY VERIFIED REPORT 08/18/2013 11:13 AM: ??Hernán Townsend M.D. Hernán Townsend M.D. : 11:13 AM 11:13 AM [facility] [EOD] Procedure Note Provider, MD Adry - 12/09/2020 Please refer to the diagnostic mammography report from the same date. The reports have been combined. THIS IS AN ELECTRONICALLY VERIFIED REPORT 08/18/2013 11:13 AM: Hernán Townsend M.D. Hernán Townsend M.D. MD: 11:13 AM 11:13 AM [facility] [EOD] Pee Villasenor MD IMG MAMMO PROCEDURES Fi nal Result * Diagnostic Mammogram 2D Left (08/18/2013 10:40 AM REMOTE SENSING ADVISOR) Anatomical Region Laterality Modality Breast Left Mammography 08/18/2013 10:4 0 AM REMOTE SENSING ADVISOR Impressions 08/18/2013 1:32 PM REMOTE SENSING ADVISOR ?? 1. ??Benign left breast simple cyst [...] AN ELECTRONICALLY VERIFIED REPORT 08/18/2013 1:30 PM: ??Hernán Townsend M.D. Hernán Townsend M.D. MD:nely 11:13 AM 11:52 AM [facility] [EOD] Narrative 08/18/2013 1:32 PM REMOTE SENSING ADVISOR EXAMINATION: ??Left digital diagnostic mammogram using CAD. [...] Townsend M.D. MD:nely 11:13 AM 11:52 AM [facility] [EOD] Pee Villasenor MD IMG MAMMO PROCEDURES Fi nal Result * GENERAL RADIOLOGY REPORT (08/18/2013 12:00 AM REMOTE SENSING ADVISOR) Anatomical Region Laterality Modality Radiographic Phuong ging Narrative 08/18/2013 12:00 AM REMOTE SENSING ADVISOR Ordered by an unspecified provider. Historical Provider MD ESPARZA XR PROCEDURES Final R esult * GENERAL RADIOLOGY REPORT (08/18/2013 12:00 AM REMOTE SENSING ADVISOR) Anatomical Region Laterality Modality Radiographic Phuong ging Narrative 08/18/2013 12:00 AM REMOTE SENSING ADVISOR Ordered by an unspecified provider. Historical Provider MD ESPARZA XR PROCEDURES Final R esult documented in this encounter Visit Diagnoses Diagnosis Lump or mass in breast Solitary cyst of breast documented in this encounter
--- OUTSIDE RECORDS SUMMARY | 2024-07-11 12:31 | XMS_ITS | Encounter Summary ---
Author Organization [facility] Healthcare Address [address] [place] [address] Care Team Providers Care Sample Card Maker Name Role Phone Unavailable Primary Care Provider Unavailabl e Encounter Details Date Type Department Care Team (Latest Contact Info) Description 08/11/2013 12:38 PM SOCIAL WORK ADMINISTRATOR Hospital Encounter [facility] OP Pee Villasenor MD [address] [facility] [address] [address] Encounter for routine gynecological examination Social History Tobacco Use Types Packs/Day Years Used Date Smoking Tobacco: Never Assessed Comments Unknown Sex and Gender Information Value Date Recorded Sex Assigned at Not on file Legal Sex Female 1:19 PM SOCIAL WORK ADMINISTRATOR Gender Identity Not on file Sexual Orientation Not on file documented as of this encounter Plan of Treatment Not on file documented as of this encounter Procedures Procedure Name Priority Date/Time Associated Diagnosis Comments SCAN - LABS 08/22/2013 12:00 AM SOCIAL WORK ADMINISTRATOR documented in this encounter Results * SCAN - LABS (08/22/2013 12:00 AM SOCIAL WORK ADMINISTRATOR) Narrative 08/22/2013 12:00 AM SOCIAL WORK ADMINISTRATOR Ordered by an unspecified provider. us Historical Provider Final Res ult documented in this encounter Visit Diagnoses Diagnosis Encounter for routine gynecological examination documented in this encounter
--- OUTSIDE RECORDS SUMMARY | 2024-07-11 12:31 | XMS_ITS | Encounter Summary ---
Author Organization [facility] Healthcare Address [address] [place] [address] Care Team Providers Care Tree Climber Name Role Phone Unavailable Primary Care Provider Unavailabl e Encounter Details Date Type Department Care Team (Latest Contact Info) Description 08/11/2013 12:01 PM FILLING AND PACKING SUPERVISOR Hospital Encounter [facility] Pee Villasenor MD [address] [facility] [address] [phone] Other screening mammogram Social History Tobacco Use Types Packs/Day Years Used Date Smoking Tobacco: Never Assessed Comments Unknown Sex and Gender Information Value Date Recorded Sex Assigned at Not on file Legal Sex Female 1:19 PM FILLING AND PACKING SUPERVISOR Gender Identity Not on file Sexual Orientation Not on file documented as of this encounter Plan of Treatment Not on file documented as of this encounter Procedures Procedure Name Priority Date/Time Associated Diagnosis Comments SCREENING MAMMOGRAM 2D BILATERAL Routine 08/11/2013 12:04 PM FILLING AND PACKING SUPERVISOR GENERAL RADIOLOGY REPORT 08/11/2013 12:00 AM FILLING AND PACKING SUPERVISOR documented in this encounter Results * Screening Mammogram 2D Bilateral (08/11/2013 12:04 PM FILLING AND PACKING SUPERVISOR) Anatomical Region Laterality Modality Breast Bilateral Mammography 08/11/2013 12:0 4 PM FILLING AND PACKING SUPERVISOR Impressions 08/11/2013 1:31 PM FILLING AND PACKING SUPERVISOR 1. Mass in the left breast. ??Recommend [...] PM BM [EOD] Narrative 08/11/2013 1:31 PM FILLING AND PACKING SUPERVISOR EXAMINATION: ??BILATERAL DIGITAL SCREENING MAMMOGRAM HISTORY: ??Baseline [...] PM: Garth Rossi M.D. Garth Rossi M.D. [place]:sc 01:28 PM 01:28 PM [facility] [EOD] Pee GRIGGSG MAMMO PROCEDURES Fi nal Result * GENERAL RADIOLOGY REPORT (08/11/2013 12:00 AM FILLING AND PACKING SUPERVISOR) Anatomical Region Laterality Modality Radiographic Phuong ging Narrative 08/11/2013 12:00 AM FILLING AND PACKING SUPERVISOR Ordered by an unspecified provider. us Historical Provider MD ESPARZA XR PROCEDURES Final R esult documented in this encounter Visit Diagnoses Diagnosis Other screening mammogram documented in this encounter
--- OUTSIDE RECORDS SUMMARY | 2024-07-11 12:31 | XMS_ITS | Encounter Summary ---
Author Organization [facility] Healthcare Address [address] [place] [address] Care Team Providers Care Electric Motor Control Assembler Name Role Phone Unavailable Primary Care Provider Unavailabl e Encounter Details Date Type Department Care Team (Latest Contact Info) Description 07/08/2015 1:04 PM POTATO INSPECTOR - 07/08/2015 5:58 PM POTATO INSPECTOR Hospital Encounter [facility] [place], [id number] [address] Supraventricular tachycardia (CMS/HCC); Shortness of breath Social History Tobacco Use Types Packs/Day Years Used Date Smoking Tobacco: Never Assessed Comments Unknown Sex and Gender Information Value Date Recorded Sex Assigned at Not on file Legal Sex Female 1:19 PM POTATO INSPECTOR Gender Identity Not on file Sexual Orientation Not on file documented as of this encounter Last Filed Vital Signs Vital Sign Reading Time Taken Comments Blood Pressure 165/67 07/08/2015 1:07 PM POTATO INSPECTOR Pulse 81 07/08/2015 1:07 PM POTATO INSPECTOR Temperature 36.8 ??C (98.2 ??F) 07/08/2015 1:07 PM CS T Respiratory Rate - - Oxygen Saturation 100% 07/08/2015 1:07 PM POTATO INSPECTOR Inhaled Oxygen Concentration - - Weight 117 kg (258 lb) 07/08/2015 1:07 PM POTATO INSPECTOR Height 167.6 cm (5' 6 ) 07/08/2015 1:07 PM POTATO INSPECTOR Body Mass Index 41.64 07/08/2015 1:07 PM POTATO INSPECTOR documented in this encounter Plan of Treatment Not on file documented as of this encounter Procedures Procedure Name Priority Date/Time Associated Diagnosis Comments CBC WITH AUTO DIFFERENTIAL Routine 07/08/2015 1:35 PM POTATO INSPECTOR TROPONIN I Routine 07/08/2015 1:35 PM POTATO INSPECTOR TSH Routine 07/08/2015 1:35 PM POTATO INSPECTOR MAGNESIUM Routine 07/08/2015 1:35 PM POTATO INSPECTOR COMPREHENSIVE METABOLIC PANEL Routine 07/08/2015 1:35 PM POTATO INSPECTOR XR CHEST PA LATERAL 2 VIEWS Routine 07/08/2015 12:00 AM POTATO INSPECTOR documented in this encounter Results * Troponin I (07/08/2015 1:35 PM POTATO INSPECTOR) [facility] Troponin I < 0.300 0.000 - 0.300 ng/mL 07/08/2015 2:39 PM POTATO INSPECTOR [facility][NOTE 3] HISTORICAL RESULTS Comment: Reference using IAN Chemiluminescence ? Negative: Repeat in 4-6 hours as indicated. 07/08/2015 1:35 PM POTATO INSPECTOR 07/08/2015 1:57 PM POTATO INSPECTOR Mary Watson JUVENILE CORRECTIONS OFFICER LAB BLOOD ORDERABLES Final R esult [facility][NOTE 3] HISTORICAL RESULTS * TSH (07/08/2015 1:35 PM POTATO INSPECTOR) Pathologist [facility] TSH 1.14 0.27 - 4.20 uIU/mL 07/08/2015 2:39 PM POTATO INSPECTOR [facility][NOTE 3] HISTORICAL RESULTS 07/08/2015 1:35 PM POTATO INSPECTOR 07/08/2015 1:57 PM POTATO INSPECTOR us Mary Watson JUVENILE CORRECTIONS OFFICER LAB BLOOD ORDERABLES Final R esult [facility][NOTE 3] HISTORICAL RESULTS * Magnesium (07/08/2015 1:35 PM POTATO INSPECTOR) Pathologist [facility] Magnesium 1.9 1.6 - 2.6 mg/dL 07/08/2015 2:37 PM POTATO INSPECTOR [facility][NOTE 3] HISTORICAL RESULTS Comment:Magnesium sulfate th erapy: 3.0-9.1 mg/dL 07/08/2015 1:35 PM POTATO INSPECTOR 07/08/2015 1:57 PM POTATO INSPECTOR Mary Watson JUVENILE CORRECTIONS OFFICER LAB BLOOD ORDERABLES Final R [facility] Performing Organization Address City/[facility]/ZIP Co de Phone Number [facility][NOTE 3] HISTORICAL RESULTS * (ABNORMAL) Comprehensive metabolic panel (07/08/2015 1:35 PM POTATO INSPECTOR) [facility] Sodium 141 135 - 145 mmol/L Potassium 3.7 3.3 - 5.1 mmol/L Chloride 103 96 - 108 mmol/L Carbon Dioxide 26 22 - 32 mmol/L Anion Gap 12 7 - 16 Glucose 112(H) 70 - 100 mg/dL BUN 13 6 - 20 mg/dL Creatinine 0.7 0.5 - 1.1 mg/dL 07/08/2015 2:37 PM [facility] [employer] [facility] HISTORICAL RESULTS Comment: NOTE: Estimated GFR [...] GFR (Cockcroft-G) 128 ml/MIN 07/08/2015 2:37 PM [employer] HISTORICAL RESULTS Calcium 9.0 8.6 - 10.0 mg/dL 07/08/2015 2:37 PM [employer] [facility] [employer] HISTORICAL RESULTS Total Protein 7.4 6.4 - 8.3 g/dL 07/08/2015 2:37 PM [employer] [facility] [employer] HISTORICAL RESULTS Albumin 4.1 3.5 - 5.2 g/dL 07/08/2015 2:37 PM [employer] [facility] [employer] HISTORICAL RESULTS Globulin 3.3 2.3 - 3.5 gm/dL 07/08/2015 2:37 PM [employer] [facility] [employer] HISTORICAL RESULTS Albumin/Globulin Ratio 1.2 1.1 - 1.8 07/08/2015 2:37 PM [employer] [facility] [employer] HISTORICAL RESULTS Total Bilirubin < 0.2 0.0 - 1.2 mg/dL 07/08/2015 2:37 PM [employer] [facility] [employer] HISTORICAL RESULTS AST 15 0 - 32 U/L 07/08/2015 2:37 PM [employer] [facility] [employer] HISTORICAL RESULTS ALT 14 0 - 33 U/L 07/08/2015 2:37 PM [employer] [facility] [employer] HISTORICAL RESULTS Alkaline Phosphatase 63 35 - 104 U/L 07/08/2015 1:35 PM POTATO INSPECTOR 07/08/2015 1:57 PM POTATO INSPECTOR us Mary Watson JUVENILE CORRECTIONS OFFICER LAB BLOOD ORDERABLES Final R esult [facility][NOTE 3] HISTORICAL RESULTS * (ABNORMAL) CBC with auto differential (07/08/2015 1:35 PM POTATO INSPECTOR) WBC 10.7(H) 4.6 - 10.2 x10 3/ul 07/08/2015 2:00 PM POTATO INSPECTOR [facility][NOTE 3] HISTORICAL RESULTS RBC 4.60 3.76 - 4.80 [...] Lymph % 23.4 5.0 - 45.0 % Furnas % 7.2 3.0 - 15.0 % Eos % 1.8 0.0 - 7.0 % Baso % 0.7 0.0 - 2.0 % ABSOLUTE COUNTS ABSOLUTE COUNTS --------- -- Absolute Neuts (auto) 7.1 1.7 - 8.7 x10 3/ul Immature Gran # 0.0 0.0 - 0.3 x10 3/ul 07/08/2015 2:00 PM POTATO INSPECTOR [facility][NOTE 3] HISTORICAL RESULTS Absolute Lymphs (auto) 2.5 0.2 - 4.6 x10 3/ul Absolute Monos (auto) 0.8 0.1 - 1.5 x10 3/ul Absolute Eos (auto) 0.2 0.0 - 0.7 x10 3/ul Absolute Basos (auto) 0.1 0.0 - 0.2 x10 3/ul 07/08/2015 1:35 PM POTATO INSPECTOR 07/08/2015 1:57 PM [facility] us Mary Watson JUVENILE CORRECTIONS OFFICER LAB BLOOD ORDERABLES Final R esult [facility][NOTE 3] HISTORICAL RESULTS * XR Chest Pa Lateral 2 Views (07/08/2015 12:00 AM POTATO INSPECTOR) Anatomical Region Laterality Modality Body, Chest N/A Radiographic Phuong ging 07/08/2015 Impressions 07/08/2015 4:18 PM POTATO INSPECTOR ??No evidence of acute cardiopulmonary abnormality. THIS IS AN ELECTRONICALLY VERIFIED REPORT 07/08/2015 4:15 PM: ??Freddy Stokes M.D. Freddy Stokes M.D. CH: 04:15 PM 04:15 PM [facility] [EOD] Narrative 07/08/2015 4:18 PM POTATO INSPECTOR EXAMINATION: ??Two-view chest. ?? HISTORY: ??Tachycardia and [...] 04:15 PM [facility] [EOD] us Mary Watson JUVENILE CORRECTIONS OFFICER IMG XR PROCEDURES Final Resu lt documented in this encounter Visit Diagnoses Diagnosis Supraventricular tachycardia (HCC) Other specified cardiac dysrhythmias Shortness of breath documented in this encounter
--- OUTSIDE RECORDS SUMMARY | 2024-07-11 12:31 | XMS_ITS | Encounter Summary ---
Author Organization [facility] Healthcare Address [address] [place] [address] Care Team Providers Care Wedding Consultant Name Role Phone Unavailable Primary Care Provider Unavailabl e Encounter Details Date Type Department Care Team (Late st Contact Info) Description 09/16/2016 9:34 AM OIL RECOVERY OPERATOR Hospital Encounter [facility] OP Guanaco Pineda MD [address] [place] [address] Low back pain Social History Tobacco Use Types Packs/Day Years Used Date Smoking Tobacco: Never Comments Unknown Sex and Gender Information Value Date Recorded Sex Assigned at Not on file Legal Sex Female 1:19 PM OIL RECOVERY OPERATOR Gender Identity Not on file Sexual Orientation Not on file documented as of this encounter Plan of Treatment Not on file documented as of this encounter Procedures Procedure Name Priority Date/Time Associated Diagnosis Comments XR SPINE LUMBAR 2 OR 3 VIEWS Routine 09/16/2016 9:36 AM OIL RECOVERY OPERATOR documented in this encounter Results * XR Spine Lumbar 2 or 3 Views (09/16/2016 9:36 AM OIL RECOVERY OPERATOR) Anatomical Region Laterality Modality Spine N/A Radiographic Phuong ging 09/16/2016 9:36 AM OIL RECOVERY OPERATOR Impressions 09/16/2016 10:50 AM OIL RECOVERY OPERATOR 1. No acute fracture THIS IS AN ELECTRONICALLY VERIFIED REPORT 09/16/2016 10:47 AM: ??Andrew Gonzalez M.D. ?? Andrew Gonzalez M.D. HI:pr 10:47 AM 10:47 AM [facility] [EOD] Narrative 09/16/2016 10:50 AM OIL RECOVERY OPERATOR EXAMINATION: Lumbar spine two or three-views HISTORY: [...] AM: Andrew Gonzalez M.D. Andrew Gonzalez M.D. HI:pr 10:47 AM 10:47 AM [facility] [EOD] Guanaco Pineda MD IMG XR PROCEDURES Final Re sult documented in this encounter Visit Diagnoses Diagnosis Low back pain Lumbago documented in this encounter
--- OUTSIDE RECORDS SUMMARY | 2024-07-11 12:31 | XMS_ITS | Encounter Summary ---
Author Organization [facility] Healthcare Address [address] [place] [address] Care Team Providers Care Enrichment Director Name Role Phone Unavailable Primary Care Provider Unavailabl e Encounter Details Date Type Department Care Team (Latest Contact Info) Description 11/14/2014 11:07 AM CDT - 11/14/2014 5:21 PM CDT Hospital Encounter [facility] OP Callie Chavira MD [address] [place] [phone] Calculus of gallbladder with other cholecystitis Social History Tobacco Use Types Packs/Day Years Used Date Smoking Tobacco: Never Assessed Comments Unknown Sex and Gender Information Value Date Recorded Sex Assigned at Not on file Legal Sex Female 1:19 PM SALES VENDOR Gender Identity Not on file Sexual Orientation [...] Abbott D.O. :bb 02:05 PM 02:09 PM [facility] [EOD] Narrative 11/15/2014 11:54 AM CDT EXAMINATION: [...] Abbott D.O. :bb 02:05 PM 02:09 PM [facility] [EOD] us Callie Chavira MD IMG FLUOROSCOPY PROCEDUR ES Final Result documented in this encounter Visit Diagnoses Diagnosis Calculus of gallbladder with other cholecystitis documented in this encounter
--- OUTSIDE RECORDS SUMMARY | 2024-07-11 12:31 | XMS_ITS | Encounter Summary ---
Author Organization [facility] Healthcare Address [address] [place] [address] Care Team Providers Care Counter Cutter Name Role Phone Unavailable Primary Care Provider Unavailabl e Encounter Details Date Type Department Care Team (Latest Contact Info) Description 06/25/2016 2:45 PM CASSEROLE PREPARER - 07/25/2016 2:45 PM CASSEROLE PREPARER Hospital Encounter [facility] OP Baldomero Dominguez MD [address] [place] [address] Anemia; Other fatigue Social History Tobacco Use Types Packs/Day Years Used Date Smoking Tobacco: Never Comments Unknown Sex and Gender Information Value Date Recorded Sex Assigned at Not on file Legal Sex Female 1:19 PM CASSEROLE PREPARER Gender Identity Not on file Sexual Orientation Not on file documented as of this encounter Plan of Treatment Not on file documented as of this encounter Procedures Procedure Name Priority Date/Time Associated Diagnosis Comments OCCULT BLOOD, FECAL (FIT) Routine 06/23/2016 6:06 PM CASSEROLE PREPARER documented in this encounter Results * Occult blood, fecal non neoplasm screening (06/23/2016 6:06 PM CASSEROLE PREPARER) Stool Occult Blood NEGATIVE NEGATIVE 06/25/2016 3:33 PM CASSEROLE PREPARER [facility] HISTORICAL RESULTS 06/23/2016 6:06 PM CASSEROLE PREPARER 06/25/2016 2:52 PM CASSEROLE PREPARER us Baldomero Dominguez MD LAB BODY FLUIDS AND STOOLS ORDER NICOLE Final Result [facility] HISTORICAL RESULTS documented in this encounter Visit Diagnoses Diagnosis Anemia Unspecified anemia Other fatigue documented in this encounter
== END 2024-07-07 18:33 | disposition home or self-care (01) ==
LOC: ANHED 18:22
PROVIDERS: Emergency Provider Physician Assistant; PCP Emergency Medicine
DX: S89.92XA Unspecified injury of left lower leg, initial encounter (principal); K50.90 Crohn's disease, unspecified, without complications; M19.90 Unspecified osteoarthritis, unspecified site; Z86.2 Personal history of diseases of the blood and blood-forming organs and certain disorders involving the immune mechanism; V03.90XA Pedestrian on foot injured in collision with car, pick-up truck or van, unspecified whether traffic or nontraffic accident, initial encounter
CPT/HCPCS: 73562; 96372; 99283; J1885

== ENCOUNTER 2025-01-30 09:45 | Outpatient (RCR) | payer OTHER, SELFPAY ==
--- NOTE | 2025-01-16 14:22 | PCPTNOTE ---
Patient cancelled today's evaluation secondary to flat tire. Rescheduled for tomorrow 01/16/25
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
--- NOTE | 2025-01-17 11:11 | OPREHPOC ---
Outpatient Therapy Plan of Care This is a Multidisciplinary Plan of Care that may contain components documented by all disciplines (PT, OT, and ST.) PT Problem 1 PT Problem #1 Knowledge Deficit PT Goal 1 Goal / Goal Update Pt. will be independent with a HEP focusing in strength and mobility. Target Visit 2 PT Problem 2 PT Problem #2 Pain PT Goal 1 Goal / Goal Update Pt. will report pain levels at 5/10 at worst at the left knee pt. will report being able to stand for duration of 45 minutes before having to sit due to pain. Target Visit 10 PT Problem 3 PT Problem #3 Impaired Range of Motion PT Goal 1 Goal / Goal Update Pt. will achieve 0-120 degrees left knee AROM Target Visit 10 PT Problem 4 PT Problem #4 Impaired Strength PT Goal 1 Goal / Goal Update Pt. will demonstrate 5/5 bilateral hip abduction and extension strength to establish improved hip stability during ambulation. Target Visit 10 PT Problem 5 PT Problem #5 Impaired Functional Mobility PT Goal 1 Goal / Goal Update Pt. will present with less than 40% limitation on the LEFS indicating significant functional improvement. Target Visit 10
--- NOTE | 2025-02-06 11:37 | PCPTNOTE ---
Patient no showed to appointment. Called patient however unable to leave voicemail due to voicemail being full.
--- NOTE | 2025-02-08 10:42 | PCPTNOTE ---
Patient no showed to appointment. Called and left voicemail letting patient know we have to discharge chart per no show/ cancelation policy. This will be patient's 4th no show.
--- NOTE | 2025-02-09 09:15 | PTOPDC ---
Assessment and note entered by Tima Solomon, PT Evaluation Information Assessment Status Discharge - Pt Not Present ICD-10 Condition Codes (PT) Pain in right knee M25.561,Pain in left knee M25. 562 Onset 06/25/24 Subjective Information Patient has not returned calls in past week following 4 consecutive No Shows. Assessment PT Clinical Summary Patient has No Showed/No Called for 4 consecutive treatment sessions. Patient will be discharged at this time per policy. Please refer to evaluation note for discharge status due to lack of compliance. Plan of Care PT Services Indicated Yes
== END 2025-02-09 09:35 | disposition home or self-care (01) ==
LOC: ANHGOSHPT 09:45
PROVIDERS: PCP Emergency Medicine
DX: M25.562 Pain in left knee (principal); M21.162 Varus deformity, not elsewhere classified, left knee; M21.161 Varus deformity, not elsewhere classified, right knee; M22.42 Chondromalacia patellae, left knee; M17.0 Bilateral primary osteoarthritis of knee; Z96.652 Presence of left artificial knee joint; Z98.890 Other specified postprocedural states
CPT/HCPCS: 97014; 97110; 97140; 97161; G0283

== ENCOUNTER 2025-04-18 10:05 | Outpatient (CLI) | payer OTHER, SELFPAY ==
--- NOTE | ~2025-04-18 | MM_ITS ---
EXAMINATION: MM screening derik BI w sondra HISTORY: Screening TECHNIQUE: Craniocaudal and mediolateral oblique 3-D tomosynthesis images were obtained and synthetic 2-D images were generated. CAD analysis was submitted and interpreted. COMPARISON: 11/07/2021 BREAST PARENCHYMAL COMPOSITION: The breasts are heterogeneously dense, which may obscure small masses. FINDINGS: There is no evidence of suspicious mass, calcification, or architectural distortion to suggest malignancy. There has been no suspicious interval change. IMPRESSION: 1. No mammographic evidence of malignancy. Recommend routine screening mammography in one year. BI-RADS Category 2: Benign finding(s) Reviewed, dictated and finalized at location Q. IMPRESSION: 1. No mammographic evidence of malignancy. Recommend routine screening mammogra phy in one year. BI-RADS Category 2: Benign finding(s)
--- OUTSIDE RECORDS SUMMARY | 2025-04-18 11:01 | XMS_ITS | Clinical Summary ---
Author Organization [facility] Address [address] [place] [address] Care Team Providers Care Plant Security Guard Name Role Phone Baldomero Dominguez MD Primary Care Provider [phone] Lane Gonzalez MD Unavailable Pee Villasenor MD Unavailable [phone] Allergies Active Allergy Reactions Criticality Noted Date Comments Cefaclor Hives Medium 12/24/2020 Medications multivit cmculxhu-omeo-OA -calcium (THERA-M) 9 mg iron-400 mcg tablet Take 1 tablet by mouth 2 (two) times a day 60 tablet 11 07/17/2020 Active cyclobenzaprine (FLEXERIL) 5 mg tablet Take 1 tablet (5 mg total) by mouth 3 (three) times a day as needed for muscle spasms Active Active Problems Problem Noted Date Diagnosed Date TRACE (obstructive sleep apnea) 11/12/2023 Assessment & Plan (11/29/2024 10:49 AM CDT): The patient will continue with oral appliance therapy. The patient wants to continue to diet and exercise and lose weight. I have advised the patient that whenever she is at goal weight that we can do another sleep study to see how well the oral appliance is treating her obstructive sleep apnea. She did verbalize and agreement. The patient will call back in if she reaches her goal weight before her next appointment to have another sleep study ordered. Assessment & Plan (02/23/2024 4:04 PM CDT): [...] operate a vehicle if tired. Endometrial cancer 11/09/2022 Overview (11/11/2022): - Initially presented to primary SALES OPERATIONS CONSULTANT w/ [facility] in early 2021 - US on 10/02/21 showed EMS 1.7cm - [facility] D[facility] 12/26/21, path with figo grade 1 endometrioid adenocarcinoma in association with CAH (pathology reviewed at [facility]) - Last pap 05/21/22: NILM neg [...] (11/25/2021): Added automatically from request for surgery [id number] Morbid obesity due to excess calories 02/15/2020 Overview (02/15/2020): Added automatically from request for surgery [id number] Diastolic dysfunction 03/09/2019 Hyperlipidemia 12/06/2018 Left atrial dilatation 07/27/2018 Left ventricular hypertrophy 07/27/2018 Seasonal allergic rhinitis 07/27/2018 History of supraventricular tachycardia 07/27/19 19 Morbid obesity 01/07/2017 Crohn's disease 01/07/2017 Paroxysmal supraventricular tachycardia 01/08/20 17 Arthralgia of hip 09/26/2015 Encounters Date Type Department Care Team Description 02/05/2025 Telephone [facility] Obstetrical Gynecology [address] [place] [address] [place] [id number] Pee Villasenor MD from Last 3 Months Surgical History Surgery [...] disease Joint pain Supraventricular tachycardia by ECG patient states stopped own on 2 yrs ago medication Sleep apnea does use cpap Heart murmur Allergic rhinitis Crohn's disease (HCC) Left knee injury states wears br [...] on file Legal Sex Female 1:19 PM DROP WIRER Gender Identity Not on file Sexual Orientation Not on file Obstetrics History Para Term AB IAB SAB Ectopic Multiple Livin g Live Births 2 2 Date Outcome GA Total Labor Labor/2nd/3rd Weight Sex Type Anes PTL Rona A1 A5 Name Clin Para Para Comments Last Filed Vital Signs Vital Sign Reading Time Taken Comments Blood Pressure 120/81 11/29/2024 10:31 AM CDT Pulse 68 11/29/2024 10:31 AM CDT Temperature 36.9 C (98.4 F) 02/23/2024 3:33 PM CDT Respiratory Rate 18 11/29/2024 10:3 1 AM CDT Oxygen Saturation 98% 11/29/2024 10: 31 AM CDT Inhaled Oxygen Concentration - - Weight 103.6 kg (228 lb 6.4 oz) 025 10:31 AM CDT Height 165.1 cm (5' 5) 11/29/2024 10:3 1 AM CDT Body Mass Index 38.01 11/29/2024 10:31 AM CDT Plan of Treatment Health Maintenance Due Date Last Done Comments Colon Cancer Screening-Colonoscopy 1967 Depression Screening 1967 DTaP/Tdap/Td Vaccine (1 - Tdap) 1978 Hepatitis B Screening 1985 Zoster Vaccine (1 of 2) 2017 Breast Cancer Screening-Mammogram 05/30/2019 05/30/2018, 08/11/2013 Covid-19 Vaccine ( season) 2025 05/09/2021, 04/18/2021 Influenza Vaccine (#1) 2025 06/19/2020 Regular Well Visit/Exam 18-64 11/08/2025 11/08/2024, 11/08/2023, 05/21/2022 Colon Cancer Screening-FIT Discontinued 06/23/2016 Hepatitis C Screening Completed 05/14/2020 Cervical Cancer Screening Discontinued 2024, 11/08/2023, 05/21/2022 Pneumococcal vaccine <65 Aged Out No longer eligible based on patient's age to complete this topic Procedures Procedure Name Priority Date/Time Associated Diagnosis Comments PAP AND HIGH RISK HPV, REFLEX TO GENOTYPING Routine 11/08/2024 10:58 AM CDT Well woman exam HEPATITIS C ANTIBODY Routine 05/14/2020 8:25 AM CDT SCREENING MAMMOGRAM BILATERAL W CARLOS Routine 05/30/2018 11:42 AM DROP WIRER OCCULT BLOOD, FECAL (FIT) Routine 06/23/2016 6:06 PM DROP WIRER from Last 3 Months or Most Recently Relevant to Health Maintenance Results * Pap and High Risk HPV and Genotyping (Cytology Component) (11/08/2024 10:58 AM CDT) Thin prep (Pap test) 11/08/2024 10:58 AM CDT 11/09/2024 4:06 AM CDT Narrative PATHOLOGY [facility] - 11/16/2024 8:55 AM CDT EPIC results best viewed via link to PDF [facility] [place] [address] Note to Patients: This report may contain [...] the details. CYTOPATHOLOGY REPORT FINAL Patient Name: ROWENA QUESADA Gender: F : 1965 (Age: 59) Address: [address] [place], [place] [address] Hospital #: [id number] Service: UNKNOWN Location: Patient Type: [facility] SPECIMEN Taken: 11/08/2024 Received: 11/09/2024 Accessioned: 11/09/2024 Reported: 11/16/2024 Physician(s): Pee Villasenor M.D. FINAL INTERPRETATION SOURCE OF SPECIMEN Liquid based Thin Prep pap with HPV: STATEMENT OF ADEQUACY - Satisfactory for evaluation - Clinical history of hysterectomy GENERAL CATEGORIZATION: - Negative for squamous intraepithelial lesion or malignancy INTERPRETATION: - Fungal organisms morphologically consistent with ny species Comments (Normal-Negative for High Risk HPV) HPV HR 16 vaginal- Negative HPV HR 18 vaginal- Negative HPV HR non 16/18 vaginal- Negative Comment: The following Other High Risk HPV types were not detected: 31, 33, 35, 39, 45, 51, 52, 56, 58, 59, 66, and 68 ADDITIONAL INFORMATION Testing was performed using the arturo HPV assay ([employer] This test has been modified from the rv repairer's instructions. Its performance characteristics were determined by [facility] in a manner consistent with CLIA requirements. This test has not been cleared or approved by the U.S. Food and Drug Administration. Test Performed by: [place] [address] Boring Mill Operator: Pee Maria M.D. Ph.D.; CLIA# [id number] [facility]/11/16/2024 08:55 EDWIN Combs(ASCP) Report Electronically Reviewed and Signed Out By EDWIN Combs(ASC) 11/16/2024 08:55:25 Cervicovaginal Cytology (Pap Test) Disclaimer: The Pap test is a screening test used to detect cervical cancer and its precursors; it is not a diagnostic procedure. False negative and false positive results do occur. Pap test results should be interpreted in the context of pertinent clinical information and biopsy results as indicated. [facility] Clinical Laboratory Improvement Amendments (CLIA) mandate that cytologic and histologic results be correlated for laboratory quality controller & improvement standards. FOR ALL HIGH-GRADE CASES we request submission of follow-up histological material and/or reports that have not been previously provided so that we may fulfill said required standards. Gross Description A. Liquid based Thin Prep pap with HPV: Vaginal - Screening ThinPrep Clinical Diagnosis and History Last Menstrual Period: hysterectomy The patient is a 59 year old female with screening. Report Images and scanned documents, if included only viewable in PDF version The performance characteristics of some immunohistochemical stains, in-situ hybridization and fluorescence in-situ hybridization tests and immunophenotyping by flow cytometry cited in this report (if any) were determined by the Surgical Pathology Department at [facility] as part of an ongoing quality controller program and in compliance with federally mandated regulations drawn from the Clinical Laboratory Improvement Act of 1988 (CLIA '88). Some of these tests rely on the use of analyte specific reagents and are subject to specific labeling requirements by the US Food and Drug Administration. Such diagnostic tests may only be performed in a facility that is certified by the Department of Health and Human Services as a high complexity laboratory under CLIA '88. The FDA has determined that such clearance or approval is not necessary. This test is used for clinical purposes. It should not be regarded as investigational or for research. Nevertheless, federal rules concerning the medical use of analyte specific reagents require that the following disclaimer be attached to the report: This test was developed and its performance characteristics determined by the Surgical Pathology Department of [facility]. It has not been cleared or approved by the U. S. Food and Drug Administration. Pee Villasenor MD LAB CYTOLOGY ORDERABLES Final Result Performing Organization Address [facility] de Phone Number PATHOLOGY [facility] * Hepatitis C antibody (05/14/2020 8:25 AM CDT) Hep C Ab NONREACT NONREACTIVE [facility] Comment: Siemens CentaurXP using JACKELYN (chemiluminescent immunoassay) technology. NONREACTIVE: Antibodies to Hepatitis C not detected. This does not exclude early acute Hepatitis C infection, possibility of exposure to Hepatitis C, antibodies below detection limit, or to lack of antibody reactivity to the antigen used in this assay. EQUIVOCAL: Antibodies to Hepatitis C may or may not be present. Sample to be confirmed by real-time PCR method. REACTIVE: Antibodies to Hepatitis C detected.Sample to be confirmed by real-time PCR method. 05/14/2020 8:25 AM CDT 05/14/2020 8:27 AM CDT Narrative Resulting Agency Comment ER Michelle MAURICE LAB MICROBIOLOGY - GENERAL OR DERABLES Final Result Performing Organization Address [facility] de Phone Number [address] [phone] * Screening Mammogram Bilateral W Carlos (05/30/2018 11:42 AM DROP WIRER) Anatomical Region Laterality Modality Breast Bilateral Mammography 05/30/2018 11:4 2 AM DROP WIRER Impressions 05/30/2018 1:36 PM DROP WIRER BI-RAD 2 BENIGN There is no mammographic evidence of malignancy. A 1 year screening mammogram is recommended. The patient has been or will be contacted. The patient will be entered into a reminder system with a target due date of 1 year for her next screening exam. Electronically signed by: Hernán Townsend M.D., md/:05/30/2018 13:34:56 Thread Drawer: Lorie Erickson, [facility] letter sent: Normal Exam Reading location: [facility] BI-RADS: 2 Benign [EOD] Narrative 05/30/2018 1:36 PM DROP WIRER - MG BILATERAL DIGITAL SCREENING MAMMOGRAM 3D/2D WITH MEDIOLATERAL OBLIQUE CRANIOCAUDAL: 05/30/2018 The study was acquired using full field digital technology and interpreted from soft copy. 2D digital mammographic views, as well as 3D digital tomosynthesis were performed in the CC and MLO projections. CLINICAL: Routine mammogram. Denies any problems today. No personal history of breast cancer. No family history of breast cancer. COMPARISONS: Comparison is made to exams dated: 08/18/2013 mammogram/ultrasound and 08/11/2013 mammogram - [facility]. BREAST TISSUE: The tissue of both breasts is heterogeneously dense, which may obscure small masses. FINDINGS: There is a left breast mass at 12-1 o'clock, shown to correspond with a benign cyst on prior ultrasound. No suspicious masses, calcifications, or other findings are seen in either breast. There has been no significant interval change. Procedure [...] exams dated: 08/18/2013mammogram/ultrasound and 08/11/2013 mammogram - [facility]. BREAST TISSUE: The tissue of [...] signed by: Hernán Townsend M.D., md/:05/30/2018 13:34:56 Thread Drawer: Lorie Erickson, [facility] letter sent: Normal Exam Reading location: [facility] BI-RADS: 2 Benign [EOD] Baldomero Dominguez MD IMG MAMMO PROCEDURES Final Resul t * Occult blood, fecal non neoplasm screening (06/23/2016 6:06 PM DROP WIRER) Stool Occult Blood NEGATIVE NEGATIVE 06/25/2016 3:33 PM DROP WIRER [facility] HISTORICAL RESULTS 06/23/2016 6:06 PM DROP WIRER 06/25/2016 2:52 PM DROP WIRER Baldomero Dominguez MD LAB BODY FLUIDS AND STOOLS ORDER NICOLE Final Result [facility] HISTORICAL RESULTS from Last 3 Months or Most Recently Relevant to Health Maintenance Insurance [facility] [address] [facility] Advance Directives For more information, please contact: [phone] * Full Code (Latest Code Status on File) Date Activated Date Inactivated Comments 07/16/2020 12:50 PM 07/17/2020 9:37 PM Care Teams Plant Security Guard Relationship Specialty Start Date End Date Baldomero Dominguez MD PCP - General 01/07/17 Lane Gonzalez MD [facility] [address] [place] [id number] Consulting Physician Interventional Cardiology 12/18/21 Pee Villasenor MD [address] [facility] [address] [place] [address] [place] [id number] Consulting Physician Obstetrics and Gynecology 12/26/21
--- OUTSIDE RECORDS SUMMARY | 2025-04-18 11:01 | XMS_ITS | Clinical Summary ---
Author Organization [facility] Address [address] [place] [address] Care Team Providers Care Maid Cleaning Cooking Name Role Phone Baldomero Dominguez MD Primary Care Provider [phone] Source Comments [facility],non-owned Affiliates and Associated Physician Practices is amultiple site organization consisting of ambulatory clinics and hospital sitesin [place], [place], [place] and [place]. This disclosure is being madepursuant to the Care Everywhere program and may not contain all information available regarding this patient. Last updated 18.[facility] Allergies Active Allergy Reactions Criticality Noted Date Comments Cefaclor Urticaria Medium 12/24/2020 Medications * Be aware that medications may not be up to date on this document. Alwaysverify current medications with the patient. amoxicillin-cla vulanate (Augmentin) 500-125 MG tablet TAKE 1 TABLET BY MOUTH EVERY 8 HOURS FOR 7 DAYS 4 Active fexofenadine (Delma) 180 MG tablet Take 1 (one) tablet by mouth once daily Active cyclobenzaprine (Flexeril) 10 MG tabletIndicatio ns:Fibromyalgia Syndrome Take 1 (one) tablet by mouth at bedtime Reasons: Fibromyalgia Syndrome 30 tablet 4 Active lidocaine (Lidoderm) 5 % patchIndication s:Fibromyalgia syndrome Apply 1 (one) patch to skin once daily Apply patch to most painful area and remove after 12 hours. May reapply a new patch 12 hours later. 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) 09/02/2023 Social History Tobacco Use Types Packs/Day Years Used Date Smoking Tobacco: Never Assessed Comments No Sex and Gender Information Value Date Recorded Sex Assigned at Not on file Legal Sex Female 6:42 AM RAW MATERIAL HANDLER Gender Identity Not on file Sexual Orientation Not on file Last Filed Vital Signs Vital Sign Reading Time Taken Comments Blood Pressure 112/70 09/02/2023 1:17 PM RAW MATERIAL HANDLER Pulse 81 09/02/2023 1:17 PM RAW MATERIAL HANDLER Temperature 36.7 C (98 F) 09/02/2023 1:17 PM RAW MATERIAL HANDLER Respiratory Rate 16 09/02/2023 1:17 PM RAW MATERIAL HANDLER Oxygen Saturation 100% 09/02/2023 1:17 PM RAW MATERIAL HANDLER Inhaled Oxygen Concentration - - Weight 103.9 kg (229 lb) 09/02/2023 1:17 PM RAW MATERIAL HANDLER Height 167.6 cm (5' 6) 09/02/2023 1:17 PM RAW MATERIAL HANDLER Body Mass Index 36.96 09/02/2023 1:17 PM RAW MATERIAL HANDLER Plan of Treatment Health Maintenance Due Date Last Done Comments COLOGUARD (AGES 45-75) - COLON CA SCREENING 1965 COLON MONITORING 1967 COLONOSCOPY - COLON CA SCREENING 1967 CT COLONOGRAPHY - COLON CA SCREENING 1965 Colorectal Cancer Screening 1965 FIT - COLON CA SCREENING 1967 FLEX SIG - COLON CA SCREENING 1967 LIPID TESTING 1967 HIV SCREENING 1982 HEPATITIS C SCREENING 06/27/1985 DTAP/TDAP/TD VACCINES (1 - Tdap) 1986 HEPATITIS B VACCINE (1 of 3 - 19+ 3-dose series) 1986 PNEUMOCOCCAL VACCINE 50+ (1 of 1 - PCV) 2017 ZOSTER VACCINE (1 of 2) 2017 MAMMOGRAM 09/14/2021 09/14/2019, 11/0 11/2017, 05/30/2018, Additional history exists SCREENING FOR DIABETES 09/02/2023 DEPRESSION SCREENING 07/26/2024 COVID-19 VACCINE ( season) 2025 INFLUENZA VACCINE (#1) 2025 PAP SMEAR 05/21/2025 05/21/2022 HIB VACCINE Aged Out No longer eligi ble based on patient's age to complete this topic HPV VACCINE Aged Out No longer eligi ble based on patient's age to complete this topic MENINGOCOCCAL (Group B) VACCINE SHARED DECISION-MAKING Aged Out No longer eligible based on patient's age to complete this topic MENINGOCOCCAL GROUPS A/C/Y/W VACCINE Aged Out No longer eligible based on patient's age to complete this topic Procedures Procedure Name Priority Date/Time Associated Diagnosis Comments MAMMOGRAM Routine 09/14/2019 from Last 3 Months or Most Recently Relevant to Health Maintenance Results * MAMMOGRAM (09/14/2019) Anatomical Region Laterality Modality Other Historical Provider MD SCANNING ONLY Final Res ult from Last 3 Months or Most Recently Relevant to Health Maintenance [place] [address] [place] [address] Care Teams Maid Cleaning Cooking Relationship Specialty Start Date End Date Baldomero Dominguez MD [address] [place] [id number] PCP - General 12/29/19
--- OUTSIDE RECORDS SUMMARY | 2025-04-18 11:01 | XMS_ITS | Clinical Summary ---
Author Organization [facility] Address [address] [place] [address] Phone Care Team Providers Care Civil Structural Engineer Name Role Phone Baldomero Dominguez MD Primary Care Provider [phone] Allergies No known active allergies Medications Ibuprofen [...] Comments Blood Pressure 120/69 07/22/2022 9:30 AM NAIL MAKER Pulse 58 07/22/2022 9:30 AM NAIL MAKER Temperature 36.6 C (97.8 F) 07/22/2022 9:30 AM NAIL MAKER Respiratory Rate 16 07/22/2022 9:30 AM NAIL MAKER Oxygen Saturation 95% 07/22/2022 9:30 AM NAIL MAKER Inhaled Oxygen Concentration - - Weight 94 kg (207 lb 4 oz) 07/22/2022 6:51 AM CS T Height 167.6 cm (5' 6) 07/22/2022 6:51 AM NAIL MAKER Body Mass Index 33.45 07/22/2022 6:51 AM NAIL MAKER Plan of Treatment Health Maintenance Due Date Last Done Comments Hepatitis C Virus (HCV) Screening 1965 TdaP Immunization 1965 Hepatitis B Immunization (1 of 3 - 19+ 3-dose series) 1986 Pap Smear 1988 Cervical Cancer Screening (CCS) 1997 HPV/Cotest 1997 Cologuard 2012 Colonoscopy 2012 Colorectal Cancer Screening 2012 Immunochemical Fecal Occult Blood 2012 Pneumococcal Immunization (5 0+ years) (1 of 1 - PCV) 2017 Zoster Immunization (1 of 2) 2017 Influenza Immunization (#1) 03/26/202505/27, 06/19/2020 SARS-COV-2 Immunization ( - 2024- season) 2025 05/09/2021, 04/18/2021 Respiratory Syncytial Virus (RSV) Immunization (Adult) (1 - 1-dose 75+ series) 2042 Human Papillomavirus (HPV) Immunization Aged Out No longer eligible b ased on patient's age to complete this topic Meningococcal Immunization (ACWY) Aged Out No longer eligible b ased on patient's age to complete this topic Rotavirus Immunization Aged Out No lo nger eligible based on patient's age to complete this topic Insurance MEDICAID [facility] Care Teams Civil Structural Engineer Relationship Specialty Start Date End Date Baldomero Dominguez MD [facility] [address] [address] PCP - General Family Medicine 03/20/20
--- OUTSIDE RECORDS SUMMARY | 2025-04-18 11:01 | XMS_ITS | Encounter Summary ---
Author Organization [facility] Address [address] [place] [address] Care Team Providers Care Sales Assistant Displays Name Role Phone Baldomero Dominguez MD Primary Care Provider [phone] Cesar Gonzalez MD Unavailable Tram Dia MD Unavailable Encounter Details Date Type Department Care Team (Late st Contact Info) Description 08/30/2015 Abstract [facility] [address] [place], [place] [address] Deloris Gutierrez PA-C Social History Tobacco Use Types Packs/Day Years [...] End Date Baldomero Dominguez MD [address] [address] PCP - General FAMILY PRACTICE 01/24/16 Cesar Gonzalez MD [address] [place] [id number] EP Rn Field Case Manager CARDIOVASCULAR DISEASE 01/24/16 Tram Dia MD [facility] [place] [address] [place] [address] EP Rn Field Case Manager CARDIOVASCULAR DISEASE 09/24/16 documented as of this encounter
--- OUTSIDE RECORDS SUMMARY | 2025-04-18 11:01 | XMS_ITS | Clinical Summary ---
Author Organization [facility] Address [address] [place] [address] Care Team Providers Care Substance Abuse Technician Name Role Phone Baldomero Dominguez MD Primary Care Provider [phone] Tarm Dia MD Unavailable Allergies No known active [...] Noted Date Diagnosed Date SVT (supraventricular tachycardia) ([facility]) Family History Medical History Relation Comments Hypertension [...] 1:58 PM CDT Height 167.6 cm (5' 6) 10/16/2016 1:58 PM CDT Body Mass Index [...] Screening with HPV 1997 Mammogram Screening 2007 Pneumococcal Vaccine: 50+ Ye ars (1 of 1 - PCV) 2017 Zoster Vaccines (1 of 2) 2017 COVID-19 Vaccine (1 - 2023-2 5 season) 2025 Meningococcal B Vaccine Aged Out No l onger eligible based on patient's age to complete this topic Meningococcal Vaccine Aged Out No shannan dary eligible based on patient's age to complete this topic RSV Immunizations Under 20 Months Aged Out No longer eligible based on patient's age to complete this topic Insurance MEDICAID [employer] Care Teams Substance Abuse Technician Relationship Specialty Start Date End Date Baldomero Dominguez MD [address] [place] [id number] PCP - General FAMILY PRACTICE 01/24/16 Tram Dia MD [facility] [address] [place] [address] EP Busser CARDIOVASCULAR DISEASE 09/24/16
--- OUTSIDE RECORDS SUMMARY | 2025-04-18 11:01 | XMS_ITS ---
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 (pathology reviewed at [facility]) - Last pap 05/21/22: NILM neg [...] (11/25/2021): Added automatically from request for surgery [id number] Morbid obesity due to excess calories 02/15/2020 Overview (02/15/2020): Added automatically from request for surgery [id number] Diastolic dysfunction 03/09/2019 Hyperlipidemia 12/06/2018 Left atrial dilatation 07/27/2018 Left ventricular hypertrophy 07/27/2018 Seasonal allergic rhinitis 07/27/2018 History of supraventricular tachycardia 07/27/19 19 Morbid obesity 01/07/2017 Crohn's disease 01/07/2017 Paroxysmal supraventricular tachycardia 01/08/20 17 Arthralgia of hip 09/26/2015 Current Treatment and Therapy Plans No current plan information found. Past Treatment and Therapy Plans No past plan information found. Lifetime Dose Tracking * Chemical Lifetime Dose Automatic Entry Manual Entr y Fluoro Time 3.3 minutes 3.3 minutes 0 minutes
--- OUTSIDE RECORDS SUMMARY | 2025-04-18 11:01 | XMS_ITS | Encounter Summary ---
Author Organization [facility] Address [address] [place] [address] Phone Care Team Providers Care Hand Washer Name Role Phone Baldomero Dominguez MD Primary Care Provider [phone] Jaciel Melo MD Unavailable [phone] Lane Gonzalez MD Unavailable Pee Villasenor MD Unavailable [phone] Encounter Details Date Type Department Care Team (Late st Contact Info) Description 2020 Telephone [facility] Medicine Neuro Sleep [address] 6th [address] [place] [address] Sen Ba, RPSGT Social History Tobacco Use Types Packs/Day Years Used Date Smoking Tobacco: Never Comments No Sex and Gender Information Value Date Recorded Sex Assigned at Not on file Legal Sex Female 1:19 PM BUMPER OPERATOR Gender Identity Not on file Sexual Orientation Not on file documented as of this encounter Plan of Treatment Not on file documented as of this encounter Visit Diagnoses Not on filedocumented in this encounter Additional Health Concerns Infection Onset Date Last Indicated Resolved Time COVID: Suspected 09/28/2020 09/28/2020 09/29/2020 4:28 AM BUMPER OPERATOR COVID: Suspected 03/28/2021 03/28/2021 04/11/2021 3:05 AM CDT COVID: Suspected 05/13/2021 05/13/2021 05/13/2021 10:05 PM CDT COVID: Suspected 11/25/2021 12/23/2021 11/26/2021 3:05 AM CDT COVID: Suspected 12/23/2021 12/23/2021 12/24/2021 1:10 AM CDT documented as of this encounter Care Teams Hand Washer Relationship Specialty Start Date End Date Baldomero Dominguez MD PCP - General 01/07/17 Jaciel Melo MD Icicle Machine Operator Cardiovascular Disease 04/12/[address] Gonzalez MD [address] [place] [address] [place] [id number] Consulting Physician Interventional Cardiology 12/18/21 Pee Villasenor MD [address] [place] [address] [place] [id number] Consulting Physician Obstetrics and Gynecology 12/26/21 documented as of this encounter
--- OUTSIDE RECORDS SUMMARY | 2025-04-18 11:01 | XMS_ITS | Patient Health Record ---
Author Organization [facility] Address [address] [facility] [address] [place] [address] Care Team Providers Care Hot Room Attendant Name Role Phone Monika Santos Unavailable [phone] Reason For Referral No Information Medications Medication SIG (Take, Route, Fr equency, Duration) Notes Start Date End Date Status Keflex 500 MG Capsule Oral Active Plan Of Treatment No Information Insurance Providers Payer Name Payer Address Payer Phone Subscriber Number Group Number Insured Name Patient Relationship to Insured Coverage Start Date Coverage End Date Cigna [address] [place], [place] [address] [phone] [id number] DERRICK STEVENS Self - patient is the insured Medicaid-[place] l Medicaid [address] [address] [place] [address] [id number] DERRICK STEVENS Self - patient is the insured
--- OUTSIDE RECORDS SUMMARY | 2025-04-18 11:01 | XMS_ITS | Encounter Summary ---
Author Organization [facility] Address [address] [place] [address] Phone Care Team Providers Care Methods Time Analyst Name Role Phone Baldomero Dominguez MD Primary Care Provider Jaciel Melo MD Unavailable [phone] Lane Gonzalez MD Unavailable [phone] Pee Villasenor MD Unavailable [phone] Encounter Details Date Type Department Care Team (Late st Contact Info) Description 03/10/2021 Telephone [facility] Medicine Neuro Sleep [address] [place] [address] 6th [address] [place] [address] Jaycee Rahman, [facility] Social History Tobacco Use Types Packs/Day Years Used Date Smoking Tobacco: Never Smokeless Tobacco: Never Alcohol Use Standard Drinks/Week Comments Yes 0 (1 standard drink = 0.6 oz pur e alcohol) occasional wine Comments No Sex and Gender Information Value Date Recorded Sex Assigned at Not on file Legal Sex Female 1:19 PM CENTRALIZED TRAFFIC CONTROL OPERATOR Gender Identity Not on file Sexual [...] documented as of this encounter Care Teams Methods Time Analyst Relationship Specialty Start Date End Date Baldomero Dominguez MD PCP - General 01/07/17 Jaciel Melo MD Patient Relations Specialist Cardiovascular Disease 04/12/[address] Gonzalez MD [address] [place] [address] [place] [id number] Consulting Physician Interventional Cardiology 12/18/21 Pee Villasenor MD [address] [place] [address] [place] [phone] Consulting Physician Obstetrics and Gynecology 12/26/21 documented as of this encounter
== END 2025-04-18 10:06 | disposition home or self-care (01) ==
LOC: ANHFOHIMG 10:07
PROVIDERS: PCP Emergency Medicine; Visit Provider Obstetrics & Gynecology
DX: Z12.31 Encounter for screening mammogram for malignant neoplasm of breast (principal)
CPT/HCPCS: 77063; 77067

== ENCOUNTER 2025-05-09 16:40 | Emergency (ER) | payer OTHER, SELFPAY ==
[2025-05-09 16:47] VITALS: BP 123/70; PULSE 79; RESP 18; TEMP 36.7; O2SAT 100
--- NOTE | 2025-05-09 16:47 | ED.GENADULT ---
HPI - General Adult General Chief complaint: Urogenital-Female Stated complaint: urinary irritation Source: patient Mode of arrival: ambulatory Limitations: no limitations History of Present Illness HPI narrative: Patient is a pleasant 59-year-old female presenting with complaint of urinary irritation. Symptoms reported include dysuria, urgency, frequency, hematuria. Symptoms began 3 days ago. Treatment initiated prior from azo. No known exposure concern for STI. No additional complaints. Related Data Home Medications ?Medication ?Instructions ?Recorded ?Confirmed ?Last Taken ?Type multivitamin (Daily Multi-Vitamin 1 tablet PO DAILY 01/28/21 04/13/22 Unknown History tablet) Allergies Allergy/AdvReac Type Severity Reaction Status Date / Time No Known Allergies Allergy Verified 05/09/25 16:53 Review of Systems Review of Systems: CONSTITUTIONAL: Denies body aches, fever, chills, or sweats. EYES: Denies visual changes, redness, or discharge. ENT: Denies rhinorrhea, congestion, sore throat, or otalgia. CARDIOVASCULAR: Denies chest pain, palpitations, or edema. RESPIRATORY: Denies cough or dyspnea. GASTROINTESTINAL: Denies abdominal pain, nausea, vomiting, or diarrhea. GENITOURINARY: Reports dysuria, urgency, frequency, hematuria. SKIN: Denies rash, itching, or wounds. MUSCULOSKELETAL: Denies back pain, joint pain, or myalgia. NEUROLOGIC: Denies headache, numbness, tingling, or weakness. PSYCH: Denies depression or anxiety. All systems reviewed & are unremarkable except as noted in HPI and below PMFSH Past Medical History Medical History Acute arthritis Allergies Anemia Colitis Crohn's disease Family History Family History Mother Cancer Grandparent Diabetes mellitus Hypertension Cerebrovascular accident Father Depression Anxiety Social History Social History Smoking status: Never smoker Alcohol intake: current Drinks per week: 2 Alcohol use details: Wine Exam Narrative: GENERAL: Well-appearing, well-nourished, and in no acute distress. HEAD: Normocephalic, atraumatic. EYES: EOMI. No redness or drainage. Conjunctivae normal. ENT: Mucous membranes pink and moist. NECK: Normal AROM. Supple. CHEST: No respiratory distress. HEART: Regular rate ABDOMEN: Soft, nontender, nondistended, normal active bowel sounds. No CVAT EXTREMITIES: Normal range of motion. SKIN: Warm, dry, no rash. Capillary refill normal. Normal skin turgor. NEURO: No focal deficits. Alert and oriented x3. Gait steady. PSYCH: Normal affect. No signs of depression or anxiety. Course Course Level of Care: Express Care Visit Vital Signs Vital signs: Vital Signs Temperature 98.1 F 05/09/25 16:47 Pulse Rate 79 05/09/25 16:47 Respiratory Rate 18 05/09/25 16:47 Blood Pressure 123/70 05/09/25 16:47 Pulse Oximetry 100 05/09/25 16:47 Oxygen Delivery Room Air 05/09/25 16:47 Temperature 98.1 F 05/09/25 16:47 Pulse Rate 79 05/09/25 16:47 Respiratory Rate 18 05/09/25 16:47 Blood Pressure 123/70 05/09/25 16:47 Pulse Oximetry 100 05/09/25 16:47 Oxygen Delivery Room Air 05/09/25 16:47 Medical Decision Making Vital Signs Vital Signs: Vital Signs Temperature 98.1 F 05/09/25 16:47 Pulse Rate 79 05/09/25 16:47 Respiratory Rate 18 05/09/25 16:47 Blood Pressure 123/70 05/09/25 16:47 Pulse Oximetry 100 05/09/25 16:47 Oxygen Delivery Room Air 05/09/25 16:47 Temperature 98.1 F 05/09/25 16:47 Pulse Rate 79 05/09/25 16:47 Respiratory Rate 18 05/09/25 16:47 Blood Pressure 123/70 05/09/25 16:47 Pulse Oximetry 100 05/09/25 16:47 Oxygen Delivery Room Air 05/09/25 16:47 Discharge Plan Discharge Clinical Impression: Dysuria Patient Disposition: Home Condition: Stable Instructions: Antibiotic Form, Dysuria (ED) Patient Language: Maori Prescriptions: New nitrofurantoin monohyd/m-cryst [Macrobid] 100 mg capsule 100 mg PO Q12H 5 Days Qty: 10 0RF Rx Instructions: must administer with a meal/food No Action multivitamin [Daily Multi-Vitamin] Tablet 1 tablet PO DAILY Follow-up/Referrals: Baldomero Dominguez MD [Primary Care Provider, Family Practice] - 05/10/25 Stand Alone Forms: Work/School Release IP Time of Disposition: 17:20
== END 2025-05-09 17:35 | disposition home or self-care (01) ==
PROVIDERS: Emergency Provider Registered Nurse; PCP Emergency Medicine
DX: R30.0 Dysuria (principal); K50.90 Crohn's disease, unspecified, without complications
CPT/HCPCS: 87077; 87086; 87186; 99213; G0463